=== PATIENT | female | born 1950 | race Caucasian/White ===

== ENCOUNTER 2019-11-14 16:31 | Emergency (ER) | payer MEDICARE, SELFPAY ==
--- NOTE | ~2019-11-14 | XR_ITS ---
EXAMINATION: XR chest 2V 11/14/2019 18:09 INDICATION: Left-sided chest pain. Hypertension. PROCEDURE: PA and lateral views of the chest COMPARISON: 12/01/2018 FINDINGS: The lungs are clear. The cardiomediastinal silhouette is within normal limits. There are no pleural effusions. There is no pneumothorax suspected. Calcified granuloma left lung base. IMPRESSION: 1: NO ACUTE CARDIOPULMONARY DISEASE. Reviewed, dictated and finalized at location A.
--- NOTE | 2019-11-14 16:32 | ECG_ITS ---
Measurements Intervals Delta Rate: 51 P: 65 TX: 200 QRS: 4 QRSD: 109 T: 31 QT: 465 QTc: 430 Interpretive Statements SINUS BRADYCARDIA BORDERLINE AV CONDUCTION DELAY LOW QRS VOLTAGE IN PRECORDIAL LEADS BORDERLINE T WAVE ABNORMALITY- ANTERIOR LEADS BASELINE ARTIFACT- I, II, AVR BORDERLINE ECG Electronically Signed On 11-14-2019 20:25:20 CDT by Raji Pham D.O.
[2019-11-14 17:08] VITALS: BP 184/103; PULSE 67; RESP 17; TEMP 37.2; O2SAT 98
[2019-11-14 17:21] LABS: Basophils Percent Auto 0.5 % (0.2-1.2); Eosinophils Absolute Auto 0.1 K/mm3 (0-0.3); Hemoglobin 12.4 g/dL (12.0-15.0); Immature Granulocyte Absolute 0.02 K/mm3 (0.00-0.031); Immature Granulocyte Percent A 0.3 % (0-0.5); Lymphocytes Absolute Auto 1.35 K/mm3 (0.9-3.2); Lymphocytes Percent Auto 22.7 % (18.3-44.2); Mean Corpuscular HGB Conc 32.6 g/dl (32-36); Mean Corpuscular Hemoglobin 30.5 pg (26-34); Mean Corpuscular Volume 93.4 fl (80-100); Mean Platelet Volume 10.5 fl (7.4-10.4); Monocytes Absolute Auto 0.6 K/mm3 (0.1-0.6); Monocytes Percent Auto 9.9 % (2.6-8.5); Neutrophils Absolute Auto 3.9 K/mm3 (1.3-6.7); Neutrophils Percent Auto 65.6 % (45.5-73.1); Platelet Count Result 226 k/mm3 (150-375); Red Blood Count 4.07 M/mm3 (4.2-5.4); Red Cell Distribution Width 14.5 % (11.5-14.5)
[2019-11-14 17:31] LABS: Prothrombin Time 12.4 Seconds (11.1-14.7)
[2019-11-14 17:32] LABS: Partial Thromboplastin Time 31.4 SECONDS (22.3-36.8)
[2019-11-14 17:33] LABS: Anion Gap 9.3 mmol/L (7-16); Blood Urea Nitrogen 16 mg/dL (7-17); Carbon Dioxide 29 mmol/L (22-30); Chloride 103 mmol/L (98-107); Estimated CRCL calculation 63 ml/min; Estimated Glomerular Filt Rate > 60; Glucose 95 mg/dL (65-105); Potassium 4.3 mmol/L (3.4-5.0); Sodium 137 mmol/L (137-145)
[2019-11-14 17:45] LABS: Troponin I < 0.012 ng/mL (0.000-0.034)
--- NOTE | 2019-11-14 19:07 | PC.NURSE ---
spoke with the pt on the phone, stated, my mother had a fall, i needed to take care of her. I pulled my iv out on the way home. pt stated that she was feeling better, was advised to call Dr Sue. in AM and review labs, and all tests completed prior to her leaving. pt encouraged to return to ED for evaluation and treatment if needed. pt agreeable to this.
== END 2019-11-14 19:07 | disposition left against medical advice (07) ==
LOC: ANHED 19:24
PROVIDERS: Emergency Medicine; PCP Family Medicine
DX: R07.9 Chest pain, unspecified (principal)
CPT/HCPCS: 36415; 71046; 80048; 84484; 85025; 85610; 85730; 93005; 99199

== ENCOUNTER 2020-07-16 14:20 | Outpatient (CLI) | payer MEDICARE, SELFPAY ==
[2020-07-16 15:02] LABS: Basophils Percent Auto 0.8 % (0.2-1.2); Eosinophils Absolute Auto 0.1 K/mm3 (0-0.3); Eosinophils Percent Auto 1.3 % (0-4.4); Hematocrit 36.4 % (37.0-47.0); Hemoglobin 11.7 g/dL (12.0-15.0); Immature Granulocyte Absolute 0.02 K/mm3 (0.00-0.031); Immature Granulocyte Percent A 0.4 % (0-0.5); Lymphocytes Absolute Auto 1.64 K/mm3 (0.9-3.2); Lymphocytes Percent Auto 31.4 % (18.3-44.2); Mean Corpuscular HGB Conc 32.1 g/dl (32-36); Mean Corpuscular Hemoglobin 29.6 pg (26-34); Mean Corpuscular Volume 92.2 fl (80-100); Mean Platelet Volume 10.2 fl (7.4-10.4); Monocytes Absolute Auto 0.7 K/mm3 (0.1-0.6); Monocytes Percent Auto 12.5 % (2.6-8.5); Neutrophils Absolute Auto 2.8 K/mm3 (1.3-6.7); Neutrophils Percent Auto 53.6 % (45.5-73.1); Platelet Count Result 364 k/mm3 (150-375); Red Blood Count 3.95 M/mm3 (4.2-5.4); Red Cell Distribution Width 14.5 % (11.5-14.5); White Blood Count 5.2 K/mm3 (4.5-10.0)
[2020-07-16 15:13] LABS: Alanine Aminotransferase 12 U/L (4-35); Albumin Level 4.1 g/dL (3.5-5.1); Alkaline Phosphatase 77 U/L (38-126); Anion Gap 5 mmol/L (8-16); Aspartate Amino Transferase 27 U/L (14-36); Bilirubin,Total 0.3 mg/dL (0.2-1.3); Blood Urea Nitrogen 10 mg/dL (7-17); Calcium 9.6 mg/dL (8.4-10.2); Carbon Dioxide 31 mmol/L (22-30); Chloride 104 mmol/L (98-107); Estimated Glomerular Filt Rate > 60; Glucose 95 mg/dL (65-105); Potassium 4.4 mmol/L (3.4-5.0); Sodium 140 mmol/L (137-145)
[2020-07-16 16:05] LABS: Erythrocyte Sedimentation Rate 27 mm/hr (0-20)
== END 2020-07-16 14:21 | disposition home or self-care (01) ==
LOC: ANHLAB 14:23
PROVIDERS: PCP Family Medicine; Visit Provider Family Medicine
DX: A49.8 Other bacterial infections of unspecified site (principal); I10 Essential (primary) hypertension
CPT/HCPCS: 36415; 80053; 85025; 85652

== ENCOUNTER 2023-03-20 10:57 | Outpatient (CLI) | payer MEDICARE, SELFPAY ==
[2023-03-29 10:02] LABS: ANA Cascade Screen Negative
== END 2023-03-20 10:58 | disposition home or self-care (01) ==
PROVIDERS: PCP Family Medicine; Visit Provider Physician Assistant
DX: M19.90 Unspecified osteoarthritis, unspecified site (principal)
CPT/HCPCS: 36415; 86038; 86225; 86235; 86364

== ENCOUNTER 2023-04-24 13:44 | Outpatient (CLI) | payer MEDICARE, SELFPAY ==
[2023-04-24 14:11] LABS: Hematocrit 38.4 % (37.0-47.0); Hemoglobin 12.3 g/dL (12.0-15.0); Mean Corpuscular Hemoglobin 30.2 pg (26-34); Mean Corpuscular Volume 94.3 fl (80-100); Mean Platelet Volume 9.2 fl (7.4-10.4); Platelet Count Result 298 k/mm3 (150-375); Red Blood Count 4.07 M/mm3 (4.2-5.4); Red Cell Distribution Width 14.1 % (11.5-14.5); White Blood Count 5.7 K/mm3 (4.5-10.0)
[2023-04-24 14:27] LABS: Alanine Aminotransferase 12 U/L (6-35); Alkaline Phosphatase 90 U/L (38-126); Anion Gap 6 mmol/L (8-16); Aspartate Amino Transferase 23 U/L (14-36); Bilirubin,Total 0.5 mg/dL (0.2-1.3); Blood Urea Nitrogen 15 mg/dL (7-17); CRP < 0.5 mg/dL (<1.0); Calcium 9.8 mg/dL (8.4-10.2); Carbon Dioxide 28 mmol/L (22-30); Chloride 102 mmol/L (98-107); Estimated Glomerular Filt Rate > 60; Glucose 105 mg/dL (65-110); Potassium 4.4 mmol/L (3.4-5.0); Sodium 136 mmol/L (137-145)
[2023-04-24 15:04] LABS: Iron 106 ug/dL (37-170)
[2023-04-24 15:13] LABS: Percent Iron Saturation 37 % (20-50)
[2023-04-24 15:33] LABS: Folic Acid > 20.0 ng/mL (2.76->20)
[2023-04-24 16:44] LABS: Vitamin B12 > 1000.0 pg/mL (239-931)
[2023-04-27 01:55] LABS: Immunoglobulin A 153 mg/dL (70-320); TTG IGA AB <1.0 U/mL (<15.0)
== END 2023-04-24 13:45 | disposition home or self-care (01) ==
LOC: ANHLAB 13:46
PROVIDERS: PCP Family Medicine; Visit Provider Nurse Practitioner
DX: R63.8 Other symptoms and signs concerning food and fluid intake (principal); I16.0 Hypertensive urgency; Z12.11 Encounter for screening for malignant neoplasm of colon; E73.9 Lactose intolerance, unspecified; D64.9 Anemia, unspecified
CPT/HCPCS: 36415; 80053; 82607; 82728; 82746; 82784; 83540; 83550; 84443; 85027; 86140; 86364

== ENCOUNTER 2023-06-12 15:57 | Outpatient (CLI) | payer MEDICARE, SELFPAY ==
[2023-06-19 18:42] LABS: Calprotectin, Stool 701 mcg/g; Pancreatic Elastase, Stool 260 mcg/g
== END 2023-06-12 15:58 | disposition home or self-care (01) ==
LOC: ANHLAB 15:58
PROVIDERS: PCP Family Medicine; Visit Provider Nurse Practitioner
DX: D64.9 Anemia, unspecified (principal); E73.9 Lactose intolerance, unspecified; Z12.11 Encounter for screening for malignant neoplasm of colon
CPT/HCPCS: 82653; 83993

== ENCOUNTER 2024-08-23 14:15 | Outpatient (CLI) | payer MEDICARE, SELFPAY ==
--- OUTSIDE RECORDS SUMMARY | 2024-08-23 14:20 | XMS_ITS | Encounter Summary ---
Author Organization [facility] [address] [place] [address] Care Team Providers Care Commercial Singer Name Role Phone Linette Yepez MD Primary Care Provider [phone] Reason for Visit * Reason Onset Date Comments MEDICAL MANAGEMENT 04/13/2020 [facility]/ [facility] Encounter Details Date Type Department Care Team ([facility] st Contact Info) Description 04/13/2020 Telephone [facility] Admitting [address] [place] [address] [place] MD [id number] [place] [address] [place] [address] MEDICAL MANAGEMENT ([facility]ENNIFER Nettles/ [facility]I [facility]ett[facility]) Social History Tobacco Use Types Packs/Day Years Used Date Smoking Tobacco: Never Smokeless Tobacco: Never Alcohol Use Standard Drinks/Week Comments Not Currently 0 (1 standard drink = 0.6 oz pur e alcohol) Comments No Sex and Gender Information Value Date Recorded Sex Assigned at Not on file Legal Sex Female 9:31 PM CDT Gender Identity Not on file Sexual Orientation Not on file COVID-19 Exposure Response Date Recorded In the last month, have you been in contact with someone who was confirmed or suspected to have Coronavirus / COVID-19? No / Unsure 04/13/2020 6:46 AM PHARMACY ASSOCIATE documented as of this encounter Plan of Treatment Not on file documented as of this encounter Visit Diagnoses Not on filedocumented in this encounter Care Teams Commercial Singer Relationship Specialty Start Date End Date Linette Yepez MD PCP - General Family Practice 04/01/20 documented as of this encounter
--- OUTSIDE RECORDS SUMMARY | 2024-08-23 14:20 | XMS_ITS | Referral Summary ---
Author Organization [facility] Address [address] [place] [address] Care Team Providers Care Training Technician Name Role Phone Linette Yepez MD Primary Care Provider Encounters Date Type Department Care Team Description 05/31/2024 Telephone [facility] Medical [facility] Cardiology [address] [place] [address] KAREN Ramirez [phone] Onesimo George MD from Last 3 Months Allergies Active Allergy Reactions Criticality Noted Date Comments Gluten Diarrhea Low 11/21/2013 Lactose Stomach upset,Other (See comments) Low 09/24/2014 GI upset, abdominal pain Medications multivitamin tablet tablet Take one by mouth one time per day 0 0 05/16/19 08 Active vitamin E 400 unit capsule Take one by mouth one time per day 0 0 05/16/19 08 Active albuterol HFA (PROVENTIL HFA,VENTOLIN HFA,PROAIR HFA) 90 mcg/actuation inhaler Inhale 1 puff every 6 (six) hours as needed for wheezing Active syringe with needle (Syringe 3cc/25Gx1 ) 3 mL 25 gauge x 1 syringe 1 Syringe every 30 (thirty) days 3 each 12/24/19 22 Active Dodex 1,000 mcg/mL injection ADMINISTER 1 ML(1000 MCG) IN THE MUSCLE EVERY 30 DAYS DIRECTED 1 mL 3 04/28/19 23 Active Eclipse Syringe 3 mL 25 gauge x 1 syringe USE 1 EACH EVERY 30 DAYS 3 each 2 05/02/19 23 Active busPIRone (BUSPAR) 7.5 mg tablet TAKE 1 TABLET(7.5 MG) BY MOUTH THREE TIMES DAILY 90 tablet 2 07/28/19 23 Active Additional Information Patient taking differently: 10 mg oral 2 times daily, Indications: Generalized Anxiety Disorder, Reported on 02/25/2023 citalopram (CeleXA) 40 mg tablet Take 1 tablet (40 mg total) by mouth daily 90 tablet 08/11/19 23 Active ondansetron ODT (ZOFRAN-ODT) 4 mg disintegrating tablet Take 1 tablet (4 mg total) by mouth every 8 (eight) hours as needed for nausea or vomiting 20 tablet 02/25/20 23 Active hydrOXYzine (ATARAX) 25 mg tablet Take 1 tablet (25 mg total) by mouth every 8 (eight) hours as needed (nausea) 01/10/[address] (PROTONIX) 40 mg EC tabletIndications: Stress Ulcer Prophylaxis Take 1 tablet (40 mg total) by mouth daily Active turmeric root extract 500 mg capsuleIndications :suppliment Take 500 mg by mouth daily. Indications: suppliment Active folic acid (FOLVITE) 400 mcg tabletIndications: Folate Deficiency Take 1 tablet (400 mcg total) by mouth daily Active CHOLECALCIFEROL, VITAMIN D3, ORALIndications:jurado ppliment Take 5,000 Units by mouth daily. Indications: suppliment Active ascorbic acid (ascorbic acid with bonita hips) 500 mg tablet,chewableInd ications:supplimen t Take 1 tablet/chew tab (500 mg total) by mouth daily Active loperamide (IMODIUM A-D) 2 mg tabletIndications: diarrhea Take 1 tablet (2 mg total) by mouth 3 (three) times a day as needed for diarrhea Active FeroSuL 325 mg (65 mg iron) tablet Take 1 tablet (325 mg total) by mouth daily 05/03/19 24 Active Belbuca 600 mcg film buccal film TAKE 1 FILM BY MOUTH TWICE DAILY X 30 DAYS 09/08/19 24 Active propafenone SR (RYTHMOL SR) 225 mg 12 hr capsuleIndications :Prevention of Recurrent Atrial Fibrillation Take 1 capsule (225 mg total) by mouth 2 (two) times a day 60 capsule 11 09/19/19 24 025 Active carvediloL (COREG) 6.25 mg tablet TAKE 1 TABLET(6.25 MG) BY MOUTH TWICE DAILY WITH MEALS 60 tablet 5 02/26/20 24 Active rivaroxaban (XARELTO) 20 mg tablet Take 1 tablet (20 mg total) by mouth daily 90 tablet 3 05/09/19 25 Active NIFEdipine (NIFEdipine CC) 30 mg 24 hr tablet TAKE 1 TABLET(30 MG) BY MOUTH EVERY NIGHT 30 tablet 3 05/23/19 25 Active lisinopriL (PRINIVIL,ZESTRIL) 40 mg tablet TAKE 1 TABLET(40 MG) BY MOUTH DAILY 90 tablet 3 05/27/19 25 Active lisinopriL (PRINIVIL,ZESTRIL) 40 mg tablet Take 1 tablet (40 mg total) by mouth daily 90 tablet 3 05/27/19 25 Active Active Problems Problem Noted Date Diagnosed Date Intractable pain 02/25/2023 Dizziness 11/07/2022 Mixed anxiety and depressive disorder 06/21/2022 Assessment & Plan (06/21/2022 7:25 PM MEDICAL RECORDS ADMINISTRATOR): Worsening after of her mother in 04/2022. Feels more anxiety than depression. Admits panic attacks. Reluctant to start daily medication, don't want to feel trapped into taking medicine. Will Rx BuSpar as directed. Encouraged relaxation techniques such as deep breathing and guided imagery. Keep follow as scheduled, sooner if needed. Diarrhea 06/20/2022 Assessment & Plan (06/21/2022 7:16 PM MEDICAL RECORDS ADMINISTRATOR): Ongoing for approximately 1 week after finishing a course of cefdinir for UTI. No more urinary symptoms or abdominal pain. No acute findings on exam. Will order CDiff test. Advised on Bowel rest: push fluids, bland high fiber diet. Continue immodium if needed. Vulvovaginitis 06/20/2022 Assessment & Plan (06/21/2022 7:17 PM MEDICAL RECORDS ADMINISTRATOR): S/p cefdinir course for UTI. Denies discharge or genital lesions. exam deferred per pt request. Rxd Diflucan as directed. Use mild non-fragrant soaps/lotions. Recurrent UTI 06/08/2022 Assessment & Plan (06/08/2022 2:35 PM MEDICAL RECORDS ADMINISTRATOR): Currently on Abx for treatment. Patient to f/u if symptoms persist despite treatment. Would obtain urine culture. Refer to Urology for eval/ Rash and nonspecific skin eruption 12/23/2021 Assessment & Plan (12/23/2021 4:30 PM CDT): Ongoing for months. Hx of Gastric sleeve and has not been consistent with dietary supplements. Recently taking Oral B12 - CBC ordered and shows mild macrocytic anemia - Will order for IM B12 Injections (1000 mcg monthly) - Recheck CBC 3 months Frequent urination 12/23/2021 Assessment & Plan (12/23/2021 4:30 PM CDT): Ongoing also with incontinence. Urinalysis performed and WNL. Will refer Pelvic PT eval and treatment. Essential hypertension 12/23/2021 Assessment & Plan (06/21/2022 7:12 PM MEDICAL RECORDS ADMINISTRATOR): BP stable in office today on current therapy. Continue current regimen and low salt diet. Stay hydrated. Assessment & Plan (06/08/2022 2:36 PM MEDICAL RECORDS ADMINISTRATOR): Chronic and mildly elevated. Goal < 130/80. Patient also with recent atypical chest pain and elevated BNP >2,000. Continue all current medication and keep scheduled evaluation with Cardiology 06/2022. Should return to ER for evaluation if chest pain recurs prior to cards eval Assessment & Plan (12/23/2021 12:10 PM CDT): Chronic and stable. Goal <130/80. Continue current medication. Atrial fibrillation 12/23/2021 Assessment & Plan (06/08/2022 2:35 PM MEDICAL RECORDS ADMINISTRATOR): Chronic and stable. 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 with bath solution maker Assessment & Plan (12/23/2021 12:10 PM CDT): Chronic and stable. Continue current medication. Continue to f/u with Cards as instructed Chronic pain syndrome 12/23/2021 Assessment & Plan (12/23/2021 12:09 PM CDT): Chronic and stable. Continue current medication and following with pain management clinic H/O gastric sleeve 12/23/2021 Assessment & Plan (12/23/2021 12:09 PM CDT): Chronic and stable. Continue to f/u with bariatric team as instructed Anemia, macrocytic, nutritional 12/23/2021 Assessment & Plan (12/23/2021 4:31 PM CDT): Nutritional secondary to gastric sleeve procedure - Will order for IM B12 Injections (1000 mcg monthly) - Recheck CBC 3 months Social History Tobacco Use Types Packs/Day Years Used Date Smoking Tobacco: Never Smokeless Tobacco: Never Tobacco Cessation:Counseling Given: Not Answered Alcohol Use Standard Drinks/Week Comments No 0 (1 standard drink = 0.6 oz pur e alcohol) OASIS D0700: Social Isolation Answer Da te Recorded Frequency of experiencing loneliness or isolatio n Never 04/11/2023 OASIS A1250: Transportation Answer Date Recorded Lack of Transportation (Medical) No 04/11/2023 Lack of Transportation (Non-Medical) No 04/11/2023 Patient Unable or Declines to Respond No 04/11/2023 OASIS B1300: Health Literacy Answer Devan e Recorded Frequency of needing help to read materials from doctor or pharmacy Never 04/11/2023 [facility] Utilities Answer Date Recorded In the past 12 months has th e [employer], gas, oil, or water [employer] threatened to shut off services in your home? No 02/27/2023 Social Connection and Isolat ion Panel [NHANES] Answer Date Recorded In a typical week, how many times do you talk on the phone with family, friends, or neighbors? More than three times a week 02/27/2023 How often do you get togethe r with friends or relatives? More than three times a week 02/27/2023 How often do you attend chur ch or buddhist services? Never 02/27/2023 Do you belong to any clubs o r organizations such as catholic groups, unions, fraternal or athletic groups, or school groups? No 02/27/2023 How often do you attend meet ings of the clubs or organizations you belong to? Never 02/27/2023 Are you , , di vorced, , never , or living with a partner? 02/27/2023 AUDIT-C Answer Date Recorded Q1: How often do you have a drink containing alc ohol? 2-3 times a week 12/17/2021 Q2: How many drinks containi ng alcohol do you have on a typical day when you are drinking? 1 or 2 12/17/2021 Q3: How often do you have si x or more drinks on one occasion? Never 12/17/2021 Overall Financial Resource Strain (CARDIA) Answe r Date Recorded How hard is it for you to pa y for the very basics like food, housing, medical care, and heating? Not very hard 02/27/2023 PHQ-2 Answer Date Recorded PHQ-2 Total Score (If total score is 3 or more points, staff should administer the PHQ-9) 0 02/27/2023 Hunger Vital Sign Answer Date Recorded Within the past 12 months, y ou worried that your food would run out before you got the money to buy more. Never true 02/28/20 23 Within the past 12 months, t he food you bought just didn't last and you didn't have money to get more. Never true 02/27/2023 PRAPARE - Transportation Answer Date Re corded In the past 12 months, has l ack of transportation kept you from medical appointments or from getting medications? No 02/15 In the past 12 months, has l ack of transportation kept you from meetings, work, or from getting things needed for daily living? No 02/27/2023 Housing Stability Vital Sign Answer Devan e Recorded In the last 12 months, was t here a time when you were not able to pay the mortgage or rent on time? No 02/27/2023 In the last 12 months, how many places have you lived? 1 02/27/2023 In the last 12 months, was t here a time when you did not have a steady place to sleep or slept in a half-way (including now)? No 02/27/2023 Personal Safety Answer Date Recorded Have you ever been in or are you currently in a harmful physical or emotional relationship or is someone making you feel afraid or unsafe? Denies 02/25/2023 Comments No Sex and Gender Information Value Date Recorded Sex Assigned at Not on file Legal Sex Female 6:30 PM MEDICAL RECORDS ADMINISTRATOR Gender Identity Not on file Sexual Orientation Not on file Last Filed Vital Signs Vital Sign Reading Time Taken Comments Blood Pressure 118/70 09/19/2023 10:02 AM CDT Pulse 56 09/19/2023 10:02 AM CDT Temperature 36.2 C (97.2 F) 04/11/2023 12:53 PM MEDICAL RECORDS ADMINISTRATOR Respiratory Rate 14 09/19/2023 10:02 AM CDT Oxygen Saturation 97% 05/22/2023 1:37 PM MEDICAL RECORDS ADMINISTRATOR Inhaled Oxygen Concentration - - Weight 69.4 kg (153 lb) 09/19/2023 10:02 AM CDT Height 160 cm (5' 3 ) 09/19/2023 10:02 AM CDT Body Mass Index 27.1 09/19/2023 10:02 AM CDT Plan of Treatment Not on file [place] [address] MEDICARE ADVANTAGE [facility] MEDICARE ADVANTAGE Advance Directives For more information, please contact: [phone] * Full Code (Latest Code Status on File) Date Activated Date Inactivated Comments 02/25/2023 1:22 PM 02/28/2023 7:54 PM * Full Code Date Activated Date Inactivated Comments 11/07/2022 2:00 AM 11/08/2022 7:29 PM Care Teams Training Technician Relationship Specialty Start Date End Date Linette Yepez MD [address] [facility] [address] [place] [address] PCP - General Family Medicine 11/06/22
--- OUTSIDE RECORDS SUMMARY | 2024-08-23 14:20 | XMS_ITS | Clinical Summary ---
Author Organization [facility] [employer] Address [address] [place] [address] Care Team Providers Care Snaker Name Role Phone Aury Joseph RN Unavailable Dar Stinson MD Unavailable [phone] Linette Yepez MD Primary Care Provider + Source Comments [facility],non-owned Affiliates and Associated Physician Practices is amultiple site organization consisting of ambulatory clinics and hospital sitesin [place], [place] and [place]. This disclosure is being madepursuant to the Care Everywhere program and may not contain all information available regarding this patient. Last updated 18.[facility] [employer] Allergies Active Allergy Reactions Criticality Noted Date Comments Gluten Meal 11/21/2013 Lactose GI Discomfort 09/24/2014 Medications * Be aware that medications may not be up to date on this document. Alwaysverify current medications with the patient. citalopram (CELEXA) 40 MG tablet TAKE 1 TABLET BY MOUTH DAILY 90 Tab 1 02/29/20 16 Active losartan 100 MG TABS 100 mg, hydroCHLOROthiazide 25 MG TABS 25 mg TAKE 1 TABLET BY MOUTH ONCE DAILY 2 06/14/19 19 Active Multiple Vitamins-Minerals (MULTIVITAMIN ADULT PO) Take one by mouth one time per day 05/16/19 08 Active vitamin E (TOCOPHERYL) 400 UNIT tablet Take one by mouth one time per day 05/16/19 08 Active hydrOXYzine hcl (ATARAX) 25 MG tablet TAKE 1 TABLET BY ORAL ROUTE 3 TIMES EVERY DAY NEEDED 0 01/17/20 19 Active amiodarone (CORDARONE) 200 MG tablet 200 mg once daily 05/24/19 20 Active albuterol HFA (PROVENTIL;VENTOLIN;PRO AIR) 108 (90 Base) MCG/ACT inhaler Inhale 1 puff by mouth Active pregabalin (LYRICA) 100 MG capsule 100 mg 2 times daily 05/14/19 20 Active metoprolol tartrate (LOPRESSOR) 25 MG tablet TAKE 0.5 TABLETS (12.5 MG TOTAL) BY MOUTH 2 (TWO) TIMES A DAY 05/18/19 20 Active tiZANidine (ZANAFLEX) 4 MG tablet TK 1/2 TO 1 T PO Q NIGHT PRN 05/01/19 20 Active oxyCODONE-acetaminophen (PERCOCET) 10-325 MG tablet TK 1 T PO TID PRN 05/17/19 20 Active phenazopyridine (PYRIDIUM) 200 MG tablet Take 1 (one) tablet by mouth 3 times daily as needed 18 tablet 06/17/19 22 Active busPIRone HCl (BUSPAR PO) Active Active Problems Problem Noted Date Diagnosed Date NOMI (obstructive sleep apnea) 07/24/2015 Hip osteoarthritis 04/11/2012 History of atrial fibrillation 04/11/2012 Overview (04/11/2012): 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, 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 URIAS (degenerative joint disease) 04/11/2012 Overview (04/11/2012): Spine, both knees, both hips Hypovitaminosis D 04/11/2012 Ulcerative colitis 04/11/2012 Resolved Problems Problem Noted Date Diagnosed Date Resolved Date Preoperative examination 01/27/2009 Immunizations Immunization Administration Dates Next Due INFLUENZA VACCINE 01/15/2015,02/21/2009 TDAP (7yrs+) 03/19/2014 Family History Medical History Relation Name Comments Cancer - Other Brother throat cancer , metastatic Cancer - Colon Father Hypertension Father Other inherited/genetic condition Father Paget's disease Cancer - Breast Maternal Aunt 2 aunts, dania th postmenopausal Lung Cancer Maternal Grandfather Lung Cancer Maternal Uncle Hypertension Paternal Aunt Cancer - Other Sister cervical canc er Relation Name Status Comments Brother Alive Father Maternal Aunt Alive Maternal Grandfather Maternal Grandmother Maternal Uncle Mother Alive Paternal Aunt Paternal Grandfather Paternal Grandmother Paternal Uncle Sister Alive Social History Tobacco Use Types Packs/Day Years Used Date Smoking Tobacco: Never Smokeless Tobacco: Never Tobacco Cessation:Counseling Given: Yes Alcohol Use Standard Drinks/Week Comments Yes 0 (1 standard drink = 0.6 oz pur e alcohol) socially Comments No Sex and Gender Information Value Date Recorded Sex Assigned at Not on file Legal Sex Female 7:22 AM WOOL AND PELT GRADER Gender Identity Not on file Sexual Orientation Not on file 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 [employer] Not on file Not on file Not on file Last Filed Vital Signs Vital Sign Reading Time Taken Comments Blood Pressure 106/74 06/16/2021 10:41 AM WOOL AND PELT GRADER Pulse 60 06/16/2021 10:41 AM WOOL AND PELT GRADER Temperature 36.2 C (97.2 F) 06/16/2021 10:41 AM WOOL AND PELT GRADER Respiratory Rate 20 06/16/2021 10:41 AM WOOL AND PELT GRADER Oxygen Saturation 97% 06/16/2021 10:41 AM WOOL AND PELT GRADER Inhaled Oxygen Concentration - - Weight 72.6 kg (160 lb) 06/16/2021 10:41 AM WOOL AND PELT GRADER Height 160 cm (5' 3 ) 06/16/2021 10:41 AM WOOL AND PELT GRADER Body Mass Index 28.34 06/16/2021 10:41 AM WOOL AND PELT GRADER Plan of Treatment Health Maintenance Due Date Last Done Comments BONE DENSITY TESTING 1950 COLOGUARD (AGES 45-75) - COLON CA SCREENING [address] COLON[address]APHY - COLON CA SCREENING 1950 FIT - COLON CA SCREENING 1950 FLEX SIG - COLON CA SCREENING 1950 PNEUMOCOCCAL VACCINE 50+ (1 of 1 - PCV) 12/26/1999 ZOSTER VACCINE (1 of 2) 12/26/1999 Respiratory Syncytial Virus (RSV) Vaccine Pt: or over 60 yrs (1 - Risk 60-74 years 1-dose series) 2009 COLONOSCOPY - COLON CA SCREENING 04/17/2015 04/17/2005 (Previously completed) Colorectal Cancer Screening 04/17/2015 MAMMOGRAM 09/09/2016 09/09/2014, 08/05/2008 COVID-19 VACCINE ( season) 2023 06/12/2020, 05/22/2020 DTAP/TDAP/TD VACCINES (2 - Td or Tdap) 03/19/2024 03/19/2014 DEPRESSION SCREENING 04/17/2024 MEDICARE AWV CALENDAR YEAR 2024 INFLUENZA VACCINE (Season Ended) 2024 01/15/2015, 02/21/2009 LIPID TESTING 11/08/2027 11/07/2022, 04/17, 11/20/2019, Additional history exists HEPATITIS C SCREENING Completed 08/09/2013 HEPATITIS B VACCINE Aged Out No longe r eligible based on patient's age to complete this topic HIB VACCINE Aged Out No longer eligi ble based on patient's age to complete this topic HPV VACCINE Aged Out No longer eligi ble based on patient's age to complete this topic MENINGOCOCCAL (Group B) VACCINE SHARED DECISION-MAKING Aged Out No longer eligible based on patient's age to complete this topic MENINGOCOCCAL GROUPS A/C/Y/W VACCINE Aged Out No longer eligible based on patient's age to complete this topic Goals Goal Patient Goal Type Associated Problems Recent Progress Patient-Stated? Author Blood Pressure < 140/90 Blood Pressure 106/74(2021 10:41 AM WOOL AND PELT GRADER) Nae Montanez MA Medical Devices Implanted Type Area Special Services Supervisor Device Identifier Shelf Expiration Date Model / Serial / Lot Shell Coat 3hole 54mm Implanted:Qty: 1 on 11/21/2013 by Francis Cortes MD at [facility] Right: Hip [employer] 08/16/2023 [id number] / / [id number] Linr Acetab Refl Xlpe 0deg 36mm X 54mm Implanted:Qty: 1 on 11/21/2013 by Francis Cortes MD at [facility] Right: Hip [employer] 10/15/2023 [id number] / / [id number] Spherical Head Screw 6.5mm Cancellous Implanted:Qty: 1 on 11/21/2013 by Francis Cortes MD at [facility] Right: Hip [employer] 05/17/2023 [id number] / / [id number] Standard Offset Fixed Neck Stikitite Coated Stem Feoral Coponent Implanted:Qty: 1 on 11/21/2013 by Francis Cortes MD at [facility] Right: Hip [employer] 06/14/2023 [id number] / / [id number] 03/30 Taper Femoral Head Implanted:Qty: 1 on 11/21/2013 by Francis Cortes MD at [facility] Right: Hip [employer] 12/14/2022 [id number] / / [id number] Bill Only H1 Uncem Metal Or Ceramic Implanted:Qty: 1 on 11/21/2013 by Francis Cortes MD at [facility] [employer] H1 BILL ONLY / / Procedures Procedure Name Priority Date/Time Associated Diagnosis Comments LIPID PROFILE Routine 07/14/2015 10:12 AM CDT Screening cholesterol level MAMMO BILAT SCREENING Routine 09/09/2014 5:05 PM CDT Breast cancer screening HEPATITIS C ANTIBODY Routine 08/09/2013 8:53 AM CDT Well adult exam from Last 3 Months or Most Recently Relevant to Health Maintenance Results * (ABNORMAL) LIPID PROFILE (07/14/2015 10:12 AM CDT) Cholesterol 216(H) <200 mg/dL [facility] ACCOUNT BILL Triglycerides 72 <150 mg/dL [facility] ACCOUNT BILL HDL Cholesterol 83 >40 mg/dL [facility] ACCOUNT BILL VLDL Calculated 14 <=30 mg/dL [facility] ACCOUNT BILL LDL Calculated 119 <130 mg/dL [facility] ACCOUNT BILL Blood specimen (specimen) BLOOD SPECIMEN / Unknown 07/14/2015 10:12 AM CDT 07/14/2015 1:06 PM CDT Narrative Resulting Agency Comment [facility] [address] [facility] [id number] Feliciano Oliver MD LAB - CHEMISTRY ORDERABLES Fin al Result [facility] ACCOUNT BILL [address] [place] [address] * MAMMO SCREENING DIGITAL IMAGE BILAT (09/09/2014 5:05 PM CDT) Anatomical Region Laterality Modality Breast Bilateral Mammography 09/10/2014 5:08 PM CDT Impressions 09/10/2014 5:09 PM CDT No mammographic evidence of malignancy in either breast. ASSESSMENT: BIRADS Category 1: Negative. RECOMMENDATION: Bilateral screening mammogram in one year. Thank you for allowing us to participate in the care of your patient. [facility] utilizes [employer] as a reminder system to notify patients of their next recommended mammogram. Narrative 09/10/2014 5:09 PM CDT EXAMINATION: Digital screening mammogram on 09/09/2014. Computer assisted detection was utilized. PRIOR: Mammogram from [facility] in 09/28/2006. FINDINGS: Breast parenchymal density: The breasts are almost entirely fatty. Risk assessment calculation: Not performed. No suspicious masses, areas of architectural distortion or microcalcifications are evident. There has been no significant interval change since the prior examination. Feliciano Oliver MD MAMMO ORDERABLES Final Result * HEPATITIS C ANTIBODY (08/09/2013 8:53 AM CDT) Hepatitis C Antibody 0.1 0.0 - 0.9 s/co ratio [facility] ACCOUNT BILL Comment: Negative: < 0.8 Indeterminate 0.8 - 0.9 Positive: > 0.9 . In order to reduce the incidence of a false positive result, the CDC recommends that all s/co ratios between 1.0 and 10.9 be confirmed by a more specific supplemental or PCR testing. [facility] offers HCV Ab w/Reflex to Verification test #[id number]. Blood specimen (specimen) BLOOD SPECIMEN / Unknown 08/09/2013 8:53 AM CDT 08/09/2013 12:57 PM CDT Narrative Resulting Agency Comment [facility] [address] [facility] [id number] Feliciano Oliver MD LAB - CHEMISTRY ORDERABLES Fin al Result [facility] ACCOUNT BILL [address] [place] [address] from Last 3 Months or Most Recently Relevant to Health Maintenance Insurance MANAGED MEDICARE ADV MANAGED MEDICARE ADV Advance Directives * Full Code (Latest Code Status on File) Date Activated Date Inactivated Comments 11/21/2013 12:38 PM 11/24/2013 6:31 PM * Full Code Date Activated Date Inactivated Comments 02/18/2009 10:26 AM 02/22/2009 1:32 AM Care Teams Snaker Relationship Specialty Start Date End Date Linette Yepez MD [address] [facility] [address] [place] [address] PCP - General Family Medicine 01/09/20 Aury Joseph, RN Hedis Specialist 11/22/13 [place] [address] [address] Orthopedic Surgery 12/27/13
--- OUTSIDE RECORDS SUMMARY | 2024-08-23 14:20 | XMS_ITS | Encounter Summary ---
Author Organization [facility] Address [address] [place] [address] Phone Care Team Providers Care Casting Machine Operator Name Role Phone Linette Yepez MD Primary Care Provider [phone] Encounter Details Date Type Department Care Team (Late st Contact Info) Description 07/13/2024 Results [facility] [place] [address] [place] [address] Norma Clark, MANAGER PROGRAMMING, CUFF STITCHER [address] [place] [address] POCT UA AUTOMATED W/O MICRO, CULTURE, URINE Social History Tobacco Use Types Packs/Day Years Used Date Smoking Tobacco: Never Smokeless Tobacco: Never Alcohol Use Standard Drinks/Week Comments Yes 0 (1 standard drink = 0.6 oz pur e alcohol) Occasionally Sexually Active Control Partners Comments Not Currently Comments No Sex and Gender Information Value Date Recorded Sex Assigned at Not on file Legal Sex Female 7:37 PM CDT Gender Identity Not on file Sexual Orientation Not on file documented as of this encounter Progress Notes * Jackie Arguello RN - 07/13/2024 11:58 AM CDT Pt has been informed and no questions at this time documented in this encounter Plan of Treatment Not on file documented as of this encounter Visit Diagnoses Not on filedocumented in this encounter Care Teams Casting Machine Operator Relationship Specialty Start Date End Date Linette Yepez MD [address] [facility] [address] [facility] [address] [place] [id number] PCP - General Family Medicine 12/08/23 documented as of this encounter
--- OUTSIDE RECORDS SUMMARY | 2024-08-23 14:20 | XMS_ITS | Clinical Summary ---
Author Organization [facility] Address [address] [place] [address] Phone Care Team Providers Care Cake Cutter Machine Name Role Phone Linette Yepez MD Primary Care Provider [phone]- [phone] Allergies Active Allergy Reactions Criticality Noted Date Comments Gluten Meal Diarrhea Low 11/21/2013 Lactose Other (see Comments) Low 09/24/2014 GI upset, abdominal pain Medications albuterol 108 (90 Base) MCG/ACT Aerosol Solution take 1 Puff by inhalation every 6 hours as needed for Wheezing. Active amiodarone (CORDARONE) 200 MG Tablet Take 200 mg by mouth daily. 3 Active Eliquis 5 MG Tablet Take 5 mg by mouth 2 times daily. 3 Active busPIRone HCl 7.5 MG Tablet Take 7.5 mg by mouth 3 times daily as needed. 3 Active carvedilol (COREG) 3.125 MG Tablet Take 3.125 mg by mouth 2 times daily. 3 Active citalopram (CeleXA) 40 MG Tablet Take 40 mg by mouth daily. 3 Active cyanocobalamin (VITAMIN B-12) 1000 MCG/ML Solution 1,000 mcg by Intramuscular route every 30 days. 3 Active lisinopril (PRINIVIL, ZESTRIL) 40 MG Tablet Take 40 mg by mouth daily. 3 Active oxyCODONE-Acet aminophen (PERCOCET) 10-325 MG Tablet Take 1 Tablet by mouth 4 times daily as needed. 3 Active pregabalin (LYRICA) 200 MG Capsule Take 200 mg by mouth nightly. 3 Active tiZANidine (ZANAFLEX) 4 MG Tablet Take 4 mg by mouth nightly as needed. 3 Active propafenone (RYTHMOL) 225 MG Tablet Take 225 mg by mouth 2 times daily. rx [id number] Active NIFEdipine CR (PROCARDIA-XL) 30 MG TABLET SR 24 HR Take 30 mg by mouth daily. rx [id number] Active Buprenorphine HCl (Belbuca) 600 MCG FILM Take 1 Film by mouth 2 times daily. rx [id number] Active hydrOXYzine (ATARAX) 25 MG Tablet Take 25 mg by mouth 3 times daily as needed for Itching or Nausea (vomiting). rx [id number] Active famotidine (PEPCID) 20 MG Tablet Take 20 mg by mouth daily. rx [id number] Active traMADol (ULTRAM) 50 MG Tablet take 1 tablet oral three times per day 30 days Active Xarelto 20 MG Tablet Oral for 90 Days 5 Active carvedilol (COREG) 6.25 MG Tablet TAKE 1 TABLET(6.25 MG) BY MOUTH TWICE DAILY WITH MEALS 4 Active pregabalin (Lyrica) 25 MG Capsule 1 Capsule. 4 Active pregabalin (LYRICA) 50 MG Capsule Take 50 mg by mouth 3 times daily. 5 Active Amoxicillin 500 MG Tablet Take 1 Tablet by mouth 3 times daily. 5 Active chlorhexidine (PERIDEX) 0.12 % Solution SWISH AND SPIT 15 ML BY MOUTH THREE TIMES DAILY 5 Active HYDROcodone-ac etaminophen (NORCO) 5-325 MG Tablet Take 1 Tablet by mouth every 6 hours as needed. 5 Active Active Problems No known active problems Encounters Date Type Department Care Team Description 08/09/2024 Results Follow-Up [facility] [place] [address] [place] [address] Norma Clark, PIG FARM MANAGER, DIETICIAN POCT UA AUTOMATED W/O MICRO, CULTURE, URINE 08/07/2024 1:20 PM CDT Urgent Care Visit [facility] [address] [place] [id number] Amrita Vee APRN, LORETTA Diarrhea, unspecified type (Primary Dx); Dysuria Discharge Disposition: Discharged to home or Selfcare 08/07/2024 Travel 07/13/2024 Results Follow-Up [place] [id number] Norma Clark APRN, LORETTA POCT UA AUTOMATED W/O MICRO, CULTURE, URINE 07/11/2024 1:30 PM CDT Urgent Care Visit [facility] [address] [facility] [address] Connie Sharma APRN, LORETTA Acute cystitis without hematuria (Primary Dx); Dysuria Discharge Disposition: Discharged to home or Selfcare 07/11/2024 Travel from Last 3 Months Immunizations Immunization Administration Dates Next Due Influenza Vaccine,unspecified Formulation 2014,02/21/2009 TDAP Vaccine 03/19/2014 Social History Tobacco Use Types Packs/Day Years Used Date Smoking Tobacco: Never Smokeless Tobacco: Never Tobacco Cessation:Counseling Given: Not Answered Alcohol Use Standard Drinks/Week Comments Yes 0 [...] Sign Reading Time Taken Comments Blood Pressure 104/60 08/07/2024 1:28 PM CDT Pulse 69 08/07/2024 1:28 PM CDT Temperature 36.7 C (98 F) 08/07/2024 1:28 PM CDT Respiratory Rate 12 08/07/2024 1:28 PM CDT Oxygen Saturation 96% 08/07/2024 1:28 PM CDT Inhaled Oxygen Concentration - - Weight 68.7 kg (151 lb 6.4 oz) 12/12/2023 10:52 AM CDT Height 160 cm (5' 3 ) 12/12/2023 10:52 AM CDT Body Mass Index 26.82 12/12/2023 10:52 AM CDT Plan of Treatment Health Maintenance Due Date Last Done Comments DEXA Bone Density 1950 Colonoscopy 1994 Colorectal Cancer Screening 1994 Cologuard 12/26/1999 Immunochemical Fecal Occult Blood 12/26/1999 Pneumococcal Immunization (5 0+ years) (1 of 1 - PCV) 12/26/1999 Zoster Immunization (1 of 2) 12/26/1999 Mammogram 09/10/2015 09/09/2014 SARS-COV-2 Immunization ( - season) 2023 06/12/2020, 05/22/2020 Td Immunization Every 10 Yea rs (Adults With 1 Tdap) 03/19/2024 03/19/2014 Influenza Immunization (Seas on Ended) 2024 01/15/2015, 02/21/2009 Respiratory Syncytial Virus (RSV) Immunization (Adult) (1 - 1-dose 75+ series) 2024 Hepatitis C Virus (HCV) Screening Completed 08/09/2013 DTaP/Tdap/Td Immunization Discontinued 03/19/2014 Hepatitis B Immunization Aged Out No longer eligible based on patient's age to complete this topic Human Papillomavirus (HPV) Immunization Aged Out No longer eligible based on patient's age to complete this topic Meningococcal Immunization (ACWY) Aged Out No longer eligible based on patient's age to complete this topic Rotavirus Immunization Aged Out No lo nger eligible based on patient's age to complete this topic Procedures Procedure Name Priority Date/Time Associated Diagnosis Comments CULTURE, URINE Routine 08/07/2024 1:53 PM CDT Dysuria POCT UA AUTOMATED W/O MICRO Routine 08/07/2024 1:31 PM CDT Dysuria CULTURE, URINE Routine 07/11/2024 1:58 PM CDT Dysuria POCT UA AUTOMATED W/O MICRO Routine 07/11/2024 1:43 PM CDT Dysuria from Last 3 Months Results * CULTURE, URINE (08/07/2024 1:53 PM CDT) Only the most recent of2 resultswithin the time period is included. CULTURE RESULTS Mixed Growth of One or More Distal Urethral Contaminants 08/08/2024 11:53 PM CDT [facility] Culture URINE SPECIMEN / Unknown Non-Phlebotomy Collection / Unknown 08/07/2024 1:53 PM CDT 08/07/2024 1:53 PM CDT Amrita Vee APRN, CNP MICROBIOLOGY - GENERAL ORDERABLES Final Result [facility] [address] [place] [address], [place] * POCT UA AUTOMATED W/O MICRO (08/07/2024 1:31 PM CDT) Only the most recent of2 resultswithin the time period is included. POC UA SPECIFIC GRAVITY 1.015 URINE PH 6.0 5.0 - 9.0 POC URINE LEUKOCYTES Negative Negative Gordy/uL POC URINE NITRITE Negative Negative POC URINE PROTEIN Negative Negative mg/dL POC URINE GLUCOSE Negative Negative, Norm mg/dL POC URINE KETONE Negative Negative mg/dL POC URINE UROBILINOGEN Norm Norm, 0.2 E.U./dL (mg/dL), 1 E.U./dL (mg/dL) POC URINE BILIRUBIN Negative Negative mg/dL POC URINE BLOOD INSTRUMENT Negative Negative Vignesh/uL POC URINE COLOR Yellow POC URINE CLARITY Clear Urine 08/07/2024 1:31 PM CDT Amrita Vee APRN, CNP POINT OF CARE T ESTING (MANUAL) Final Result from Last 3 Months [facility] Advance Directives * Full Code (Latest Code Status on File) Date Activated Date Inactivated Comments 12/27/2023 9:36 AM Care Teams Cake Cutter Machine Relationship Specialty Start Date End Date Linette Yepez MD [address] [facility] [address] [place] [id number] PCP - General Family Medicine 12/08/23
--- OUTSIDE RECORDS SUMMARY | 2024-08-23 14:20 | XMS_ITS | Encounter Summary ---
Author Organization [facility] Address [address] [place] [address] Phone Care Team Providers Care Information Services Consultant Name Role Phone Linette Yepez MD Primary Care Provider [phone]- [phone] Encounter Details Date Type Department Care Team (Late st Contact Info) Description 08/09/2024 Results [facility] - [facility] [place] [address] [place] [address] Norma Clark, RING BARKER OPERATOR, EQUIPMENT SALES SPECIALIST [address] [place] [address] POCT UA AUTOMATED W/O MICRO, [...] on file documented as of this encounter Plan of Treatment Not on file documented as of this encounter Visit Diagnoses Not on filedocumented in this encounter Care Teams Information Services Consultant Relationship Specialty Start Date End Date Linette Yepez MD [address] [place] [address] PCP - General Family Medicine 12/08/23 documented as of this encounter
--- OUTSIDE RECORDS SUMMARY | 2024-08-23 14:20 | XMS_ITS | Clinical Summary ---
Author Organization [facility] Address [address] [place] [address] Care Team Providers Care Metal Hanger Name Role Phone Linette Yepez MD Primary Care Provider Allergies Active Allergy Reactions Criticality Noted Date [...] 06/21/2022 Assessment & Plan (06/21/2022 7:25 PM SUPERVISOR SHIPPING): Worsening after of her mother in 04/2022. Feels more anxiety than depression. Admits panic attacks. Reluctant to start daily medication, don't want to feel trapped into taking medicine. Will Rx BuSpar as directed. Encouraged relaxation techniques such as deep breathing and guided imagery. Keep follow as scheduled, sooner if needed. Diarrhea 06/20/2022 Assessment & Plan (06/21/2022 7:16 PM SUPERVISOR SHIPPING): Ongoing for approximately 1 week after finishing a course of cefdinir for UTI. No more urinary symptoms or abdominal pain. No acute findings on exam. Will order CDiff test. Advised on Bowel rest: push fluids, bland high fiber diet. Continue immodium if needed. Vulvovaginitis 06/20/2022 Assessment & Plan (06/21/2022 7:17 PM SUPERVISOR SHIPPING): S/p cefdinir course for UTI. Denies discharge or genital lesions. exam deferred per pt request. Rxd Diflucan as directed. Use mild non-fragrant soaps/lotions. Recurrent UTI 06/08/2022 Assessment & Plan (06/08/2022 2:35 PM SUPERVISOR SHIPPING): Currently on Abx for treatment. Patient to [...] 12/23/2021 Assessment & Plan (06/21/2022 7:12 PM SUPERVISOR SHIPPING): BP stable in office today on current therapy. Continue current regimen and low salt diet. Stay hydrated. Assessment & Plan (06/08/2022 2:36 PM SUPERVISOR SHIPPING): Chronic and mildly elevated. Goal < 130/80. [...] 12/23/2021 Assessment & Plan (06/08/2022 2:35 PM SUPERVISOR SHIPPING): Chronic and stable. 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 with electric razor mechanic Assessment & Plan (12/23/2021 12:10 PM CDT): [...] mcg monthly) - Recheck CBC 3 months Encounters Date Type Department Care Team Description 05/31/2024 Telephone [facility] Cardiology [address] [place] [address] Onesimo George MD from Last 3 Months Surgical History Surgery Date Site/Laterality Comments GASTRECTOMY S/P laparoscopic sleeve gastrectomy Medical History Medical History Date Comments Knee pain 2009 Rt knee replacem ent// Dr. Sutherland tonsilectomy 1960 tonsilectomy ophrectomy 1959 ophrectomy Osteoarthritis Osteoarthritis Hypertension Hypertension Atrial fibrillation (HCC) Atrial fibrillation Lt hip replacement// JVR 2011 Lt hip replacement// JVR Ambulates with cane Acute cystitis with hematuria NOMI (obstructive sleep apnea) S/P laparoscopic sleeve gastrectomy UTI (urinary tract infection) Anxiety Family History Medical History Relation Name Comments Lung cancer Other 1 Family history of Cancer, lung; Hypertension Other 2 Family history of Hypertension; Osteoarthritis Other 3 Family histor y of Osteoarthritis; Osteoporosis Other 4 Family history of Osteoporosis; Relation Name Status Comments Other 1 Other 2 Other 3 Other 4 Social History Tobacco Use Types Packs/Day Years [...] materials from doctor or pharmacy Never 04/11/2023 [facility] Utilities Answer Date Recorded In the past 12 months has th e [employer], gas, oil, or water [employer] threatened to shut off services in your [...] often do you attend chur ch or mormon services? Never 02/27/2023 Do you belong to any clubs o r organizations such as worship groups, unions, fraternal or athletic groups, or [...] place to sleep or slept in a senior care (including now)? No 02/27/2023 Personal Safety Answer Date Recorded Have you ever been in or are you currently in a harmful physical or emotional relationship or is someone making you feel afraid or unsafe? Denies 02/25/2023 Comments No Sex and Gender Information Value Date Recorded Sex Assigned at Not on file Legal Sex Female 6:30 PM SUPERVISOR SHIPPING Gender Identity Not on file Sexual Orientation Not on file Obstetrics History Last Filed Vital Signs Vital Sign Reading Time Taken Comments Blood Pressure 118/70 09/19/2023 10:02 AM CDT Pulse 56 09/19/2023 10:02 AM CDT Temperature 36.2 C (97.2 F) 04/11/2023 12:53 PM SUPERVISOR SHIPPING Respiratory Rate 14 09/19/2023 10:02 AM CDT Oxygen Saturation 97% 05/22/2023 1:37 PM SUPERVISOR SHIPPING Inhaled Oxygen Concentration - - Weight 69.4 kg (153 lb) 09/19/2023 10:02 AM CDT Height 160 cm (5' 3 ) 09/19/2023 10:02 AM CDT Body Mass Index 27.1 09/19/2023 10:02 AM CDT Plan of Treatment Health Maintenance Due Date Last Done Comments Colon Cancer Screening-Colonoscopy 1950 Hepatitis C Screening 1950 Osteoporosis Screening-Bone Density Scan 1950 Hepatitis B Screening 12/26/1967 Pneumococcal vaccine 65+ (1 of 1 - PCV) 12/26/1999 Zoster Vaccine (1 of 2) 12/26/1999 Well Visit 65+ 2014 Breast Cancer Screening-Mammogram 09/10/2015 015 Covid-19 Vaccine ( season) 2023, 05/22/2020 Influenza Vaccine (#1) 2023 01/15/2015, 2008 Depression Screening 02/26/2024 02/25/2023, 11/06/2022, 12/17/2021 DTaP/Tdap/Td Vaccine (2 - Td or Tdap) 03/19/202406/2013 Fall Risk Assessment 09/18/2024 09/19/2023, 02/28/2023, 05/03/2021 Insurance MEDICARE ADVANTAGE MEDICARE ADVANTAGE [facility] MEDICARE ADVANTAGE Advance Directives For more information, please contact: [phone] * Full Code (Latest Code Status on File) Date Activated Date Inactivated Comments 02/25/2023 1:22 PM 02/28/2023 7:54 PM * Full Code Date Activated Date Inactivated Comments 11/07/2022 2:00 AM 11/08/2022 7:29 PM Care Teams Metal Hanger Relationship Specialty Start Date End Date Linette Yepez MD [address] [facility] [address] [address] PCP - General Family Medicine 11/06/22
--- OUTSIDE RECORDS SUMMARY | 2024-08-23 14:20 | XMS_ITS | Clinical Summary ---
Author Organization [facility] Address [address] [place] [address] Phone Care Team Providers Care Microsoft Dynamics Ax Developer Name Role Phone Linette Yepez MD Primary Care Provider +1- [phone] Allergies Active Allergy Reactions Criticality Noted Date Comments Gluten Diarrhea 11/21/2013 Lactose Abdominal Pain 09/24/2014 Medications citalopram (CeleXA) 40 mg tablet Take 40 mg by mouth daily. Active metoprolol tartrate (LOPRESSOR) 25 mg tablet Take 12.5 mg by mouth 2 times daily. Active lisinopriL (PRINIVIL) 10 mg tablet Take 10 mg by mouth daily. Active pregabalin (LYRICA) 100 mg Capsule Take 200 mg by mouth daily at bedtime. Active apixaban (ELIQUIS) 5 mg tablet Take 5 mg by mouth 2 times daily. Active tiZANidine (ZANAFLEX) 4 mg Capsule Take 4 mg by mouth nightly as needed for Spasm. Active albuterol HFA 90 mcg inhaler Take 2 Puffs by inhalation every 6 hours as needed for Shortness of Breath. Active amiodarone (CORDARONE) 200 mg tablet 200 mg. 0 Active HYDROcodone-aceta minophen (HYCET) 7.5-325 mg/15 mL SolutionIndicatio ns:S/P laparoscopic sleeve gastrectomy Take 15 mL by mouth every 4 hours as needed for moderate pain. Max Daily Amount: 90 mL 360 mL 04/14/2020 2:38 PM INCIDENT ENGINEER 0 Active ondansetron (Zofran ODT) 8 mg Tablet, Rapid Dissolve Dissolve 1 Tablet (8 mg) by mouth every 8 hours as needed for nausea or vomiting. 20 Tablet 2 04/14/2020 2:38 PM INCIDENT ENGINEER 0 Active Active Problems Problem Noted Date Diagnosed Date Morbid obesity with body mass index of 40.0-49.9 04/14/2020 S/P laparoscopic sleeve gastrectomy 04/14/2020 NOMI (obstructive sleep apnea) 04/14/2020 Paroxysmal atrial fibrillation 04/14/2020 Hypertension, essential 04/14/2020 Social History Tobacco Use Types Packs/Day Years [...] Sign Reading Time Taken Comments Blood Pressure 168/83 04/14/2020 7:59 AM INCIDENT ENGINEER Pulse 61 04/14/2020 7:59 AM INCIDENT ENGINEER Temperature 36.8 C (98.2 F) 04/14/2020 7:59 AM INCIDENT ENGINEER Respiratory Rate 18 04/14/2020 7:59 AM INCIDENT ENGINEER Oxygen Saturation 98% 04/14/2020 7:59 AM INCIDENT ENGINEER Inhaled Oxygen Concentration - - Weight 108.2 kg (238 lb 9.6 oz) 04/13/2020 7:05 AM INCIDENT ENGINEER Height 160 cm (5' 3 ) 04/13/2020 7:05 AM INCIDENT ENGINEER Body Mass Index 42.27 04/13/2020 7:05 AM INCIDENT ENGINEER Plan of Treatment Health Maintenance Due Date Last Done Comments BREAST CANCER SCREENING 1989 COLORECTAL SCREENING 1994 Colorectal Cancer Screening 1994 FIT-DNA Q 3 years 1994 FIT/FOBT Q 1 year 1994 Flex Sig/CT Colonography Q 5 years 1994 PNEUMOCOCCAL VACCINE 50+ YEARS (1 of 1 - PCV) 12/26/19 00 ZOSTER VACCINE (1 of 2) 12/26/1999 RSV VACCINE (60+ or ) (1 - Risk 60-74 years 1-dose series) 2009 OSTEOPOROSIS SCREENING 2014 INFLUENZA VACCINE (#1) 2023 DTAP/TDAP/TD VACCINES (2 - Td or Tdap) 03/19/2024 Medical Devices Implanted Type Area Trader Device Identifier Shelf Expiration Date Model / Serial / Lot Seamguard Endogia 60 Prpl [id number] - [id number] Implanted:Qty : 2 on 04/13/2020 by Hong Bryant MD at [facility] N/A: Abdomen [employer] 12/02/2022 [id number] / / [id number] Seamguard Endogia 60 Blk [id number] - [id number] Implanted:Qty : 1 on 04/13/2020 by Hong Bryant MD at [facility] N/A: Abdomen [employer] 08/19/2022 [id number] / / [id number] Insurance RX OPTUM RX Member Subscriber Plan / Payer (Ef fective 2016-Present) Name:Raman Susannah A Relation to Subscriber:Self Name:Raman Susannah A Payer ID:Not on file Group ID:[id number] Type:RX Medicare Part D Address: [address] Advance Directives For more information, please contact: [phone] * Full Code (Latest Code Status on File) Date Activated Date Inactivated Comments 04/13/2020 1:09 PM 04/14/2020 5:55 PM Care Teams Microsoft Dynamics Ax Developer Relationship Specialty Start Date End Date Linette Yepez MD PCP - General Family Practice 04/01/20
--- OUTSIDE RECORDS SUMMARY | 2024-08-23 14:20 | XMS_ITS | CONTINUITY OF CARE DOCUMENT ---
Author Name jenny alvarado Address Unknown Organization [facility] Address [address] [place] [address] Phone [phone] Care Team Providers Care Ship Scraper Name Role Phone Terell BROWN, Chi Unavailable INSURANCE PROVIDERS Payer name Policy type / Coverage type [place] red republican ID [facility] BENEFIT SERVICES Other [id number]
[2024-08-23 14:39] LABS: Basophils Percent Auto 0.6 % (0.2-1.2); Eosinophils Absolute Auto 0.1 K/mm3 (0-0.3); Eosinophils Percent Auto 0.9 % (0-4.4); Hemoglobin 10.9 g/dL (12.0-15.0); Immature Granulocyte Absolute 0.02 K/mm3 (0.00-0.031); Immature Granulocyte Percent A 0.3 % (0-0.5); Lymphocytes Absolute Auto 1.27 K/mm3 (0.9-3.2); Lymphocytes Percent Auto 19.8 % (18.3-44.2); Mean Corpuscular HGB Conc 31.1 g/dl (32-36); Mean Corpuscular Hemoglobin 28.5 pg (26-34); Mean Corpuscular Volume 91.6 fl (80-100); Mean Platelet Volume 10.4 fl (7.4-10.4); Monocytes Absolute Auto 0.8 K/mm3 (0.1-0.6); Neutrophils Absolute Auto 4.3 K/mm3 (1.3-6.7); Neutrophils Percent Auto 66.4 % (45.5-73.1); Platelet Count Result 259 k/mm3 (150-375); Red Blood Count 3.82 M/mm3 (4.2-5.4); Red Cell Distribution Width 14.8 % (11.5-14.5); White Blood Count 6.4 K/mm3 (4.5-10.0)
[2024-08-23 15:01] LABS: Alanine Aminotransferase 143 U/L (6-35); Albumin Level 3.4 g/dL (3.5-5.1); Alkaline Phosphatase 1313 U/L (38-126); Anion Gap 1 mmol/L (4-12); Aspartate Amino Transferase 210 U/L (14-36); Bilirubin,Total 0.9 mg/dL (0.2-1.3); Blood Urea Nitrogen 9 mg/dL (7-17); Calcium 9.2 mg/dL (8.4-10.2); Carbon Dioxide 34 mmol/L (22-30); Chloride 103 mmol/L (98-107); Estimated Glomerular Filt Rate > 60; Glucose 107 mg/dL (65-110); Potassium 3.5 mmol/L (3.4-5.0); Sodium 138 mmol/L (137-145)
[2024-08-23 15:06] LABS: Erythrocyte Sedimentation Rate 17 mm/hr (0-20)
[2024-08-23 15:17] LABS: Iron 55 ug/dL (37-170)
[2024-08-23 15:25] LABS: Thyroid Stimulating Hormone < 0.015 uIU/mL (0.465-4.680)
[2024-08-23 15:26] LABS: Percent Iron Saturation 24 % (20-50)
[2024-08-23 15:34] LABS: Free T4 Free Thyroxine 1.73 ng/dL (0.78-2.19)
[2024-08-26 15:39] LABS: Red Blood Cell Folate 652 ng/mL RBC (>280)
[2024-08-29 11:33] LABS: Vitamin D 1,25 (OH)2 Total 33 pg/mL (18-72); Vitamin D2 1,25 (OH)2 <8 pg/mL; Vitamin D3 1,25 (OH)2 33 pg/mL
== END 2024-08-23 14:16 | disposition home or self-care (01) ==
LOC: ANHLAB 14:17
PROVIDERS: PCP Family Medicine; Visit Provider Physician Assistant
DX: E07.9 Disorder of thyroid, unspecified (principal); R10.9 Unspecified abdominal pain; R63.4 Abnormal weight loss; R53.1 Weakness; D64.9 Anemia, unspecified; E55.9 Vitamin D deficiency, unspecified; Z90.3 Acquired absence of stomach [part of]
CPT/HCPCS: 36415; 80053; 82607; 82652; 82747; 83540; 83550; 84439; 84443; 85025; 85652

== ENCOUNTER 2024-08-26 15:10 | Outpatient (CLI) | payer MEDICARE, SELFPAY ==
--- OUTSIDE RECORDS SUMMARY | 2024-08-26 15:14 | XMS_ITS | Encounter Summary ---
Author Organization [facility] Address [address] [place] [address] Phone Care Team Providers Care Yacht Builder Name Role Phone Linette Yepez MD Primary Care Provider +1- [phone] Encounter Details Date Type Department Care Team (Late st Contact Info) Description 08/09/2024 Results Follow-Up [facility] - [facility] - [place] [address] [place] [address] Norma Clark, JUNIOR AUTOMATION ENGINEER, DIRECTOR FOUNDATION [address] [place] [address] POCT UA AUTOMATED W/O MICRO, [...] on filedocumented in this encounter Care Teams Yacht Builder Relationship Specialty Start Date End Date Linette Yepez MD [address] [place] [address] PCP - General Family Medicine 12/08/23 documented as of this encounter
--- OUTSIDE RECORDS SUMMARY | 2024-08-26 15:14 | XMS_ITS | Clinical Summary ---
Author Organization [facility] Address [address] [place] [address] Phone Care Team Providers Care Geology Technician Name Role Phone Linette Yepez MD Primary Care Provider +1- [phone] Allergies Active Allergy Reactions Criticality Noted Date [...] mg by mouth 2 times daily. rx [id number] Active NIFEdipine CR (PROCARDIA-XL) 30 MG TABLET SR 24 HR Take 30 mg by mouth daily. rx [id number] Active Buprenorphine HCl (Belbuca) 600 MCG FILM Take 1 Film by mouth 2 times daily. rx [id number] Active hydrOXYzine (ATARAX) 25 MG Tablet Take 25 mg by mouth 3 times daily as needed for Itching or Nausea (vomiting). rx [id number] Active famotidine (PEPCID) 20 MG Tablet Take 20 mg by mouth daily. rx [id number] Active traMADol (ULTRAM) 50 MG Tablet take [...] Department Care Team Description 08/09/2024 Results Follow-Up [facility] - [facility] [place] [address] [place] [address] Norma Clark, AIRBORNE SENSOR SPECIALIST, ATHLETICS TEACHER POCT UA AUTOMATED W/O MICRO, CULTURE, URINE 08/07/2024 1:20 PM CDT Urgent Care Visit [facility] [address] [place] [id number] Amrita Vee APRN, [place] Diarrhea, unspecified type (Primary Dx); Dysuria Discharge Disposition: Discharged to home or Selfcare 08/07/2024 Travel 07/13/2024 Results Follow-Up [place] [phone] Norma Clark APRN, [place] POCT UA AUTOMATED W/O MICRO, CULTURE, URINE 07/11/2024 1:30 PM CDT Urgent Care Visit [facility] [address] [facility] [place] [address] Connie Sharma APRN, LORET[place] Acute [...] Distal Urethral Contaminants 08/08/2024 11:53 PM CDT [facility] URINE SPECIMEN / Unknown Non-Phlebotomy Collection / Unknown 08/07/2024 1:53 PM CDT 08/07/2024 1:53 PM CDT Amrita Vee APRN, CNP MICROBIOLOGY - GENERAL ORDERABLES Final Result [facility] [address] [place] [address], [place] * POCT UA AUTOMATED W/O MICRO [...] from Last 3 Months Insurance [facility] Advance Directives * Full Code (Latest Code Status on File) Date Activated Date Inactivated Comments 12/27/2023 9:36 AM Care Teams Geology Technician Relationship Specialty Start Date End Date Linette Yepez MD [address] [facility] [address] [place] [id number] PCP - General Family Medicine 12/08/23
--- OUTSIDE RECORDS SUMMARY | 2024-08-26 15:14 | XMS_ITS | Clinical Summary ---
Author Organization [facility] Address [address] [place] [address] Phone Care Team Providers Care Hydrologic Modeler Name Role Phone Linette Yepez MD Primary Care Provider +1- [phone] Allergies Active Allergy Reactions Criticality Noted Date [...] 90 mL 360 mL 04/14/2020 2:38 PM BUFFET SERVER 0 Active ondansetron (Zofran ODT) 8 mg Tablet, Rapid Dissolve Dissolve 1 Tablet (8 mg) by mouth every 8 hours as needed for nausea or vomiting. 20 Tablet 2 04/14/2020 2:38 PM BUFFET SERVER 0 Active Active Problems Problem Noted Date [...] Comments Blood Pressure 168/83 04/14/2020 7:59 AM BUFFET SERVER Pulse 61 04/14/2020 7:59 AM BUFFET SERVER Temperature 36.8 C (98.2 F) 04/14/2020 7:59 AM BUFFET SERVER Respiratory Rate 18 04/14/2020 7:59 AM BUFFET SERVER Oxygen Saturation 98% 04/14/2020 7:59 AM BUFFET SERVER Inhaled Oxygen Concentration - - Weight 108.2 kg (238 lb 9.6 oz) 04/13/2020 7:05 AM BUFFET SERVER Height 160 cm (5' 3 ) 04/13/2020 7:05 AM BUFFET SERVER Body Mass Index 42.27 04/13/2020 7:05 AM BUFFET SERVER Plan of Treatment Health Maintenance Due Date [...] Tdap) 03/19/2024 Medical Devices Implanted Type Area Dock Operations Supervisor Device Identifier Shelf Expiration Date Model / Serial / Lot Seamguard Endogia 60 Prpl [id number] - [id number] Implanted:Qty : 2 on 04/13/2020 by Hong Bryant MD at [facility] N/A: Abdomen [employer] 12/02/2022 [id number] / / [id number] Seamguard Endogia 60 Blk [id number] - [id number] Implanted:Qty : 1 on 04/13/2020 by Hong Bryant MD at [facility] N/A: Abdomen [employer] 08/19/2022 [id number] / / [id number] Insurance RX [employer] RX Member Subscriber Plan / Payer (Ef fective 2016-Present) Name:Raman Susannah A Relation to Subscriber:Self Name:Raman Susannah A Payer ID:Not on file Group ID:[id number] Type:RX Medicare Part D Address: [address] Advance Directives For more information, please contact: [phone] * Full Code (Latest Code Status on File) Date Activated Date Inactivated Comments 04/13/2020 1:09 PM 04/14/2020 5:55 PM Care Teams Hydrologic Modeler Relationship Specialty Start Date End Date Linette Yepez MD PCP - General Family Practice 04/01/20
--- OUTSIDE RECORDS SUMMARY | 2024-08-26 15:14 | XMS_ITS | Encounter Summary ---
Author Organization [facility] [address] [facility] [address] [place] [address] Care Team Providers Care Business Writer Name Role Phone Linette Yepez MD Primary Care Provider +1- [phone] Reason for Visit * Reason Onset Date Comments MEDICAL MANAGEMENT 04/13/2020 JENNIFER W/ RAVI Nettles/ [facility] Encounter Details Date Type Department Care Team ([facility] st Contact Info) Description 04/13/2020 Telephone [facility] Admitting [address] [place] [address] [place] [address] [place] [address] [place] [address] MEDICAL MANAGEMENT (JENNIFER Nettles/ RAIV Nettles/ [facility]OSPITAL[facility]) Social History Tobacco Use [...] COVID-19? No / Unsure 04/13/2020 6:46 AM OBIEE CONSULTANT documented as of this encounter Plan of Treatment Not on file documented as of this encounter Visit Diagnoses Not on filedocumented in this encounter Care Teams Business Writer Relationship Specialty Start Date End Date Linette Yepez MD PCP - General Family Practice 04/01/20 documented as of this encounter
--- OUTSIDE RECORDS SUMMARY | 2024-08-26 15:14 | XMS_ITS | Encounter Summary ---
Author Organization [facility] Address [address] [place] [address] Phone Care Team Providers Care Ripper Operator Name Role Phone Linette Yepez MD Primary Care Provider [phone]- [phone] Encounter Details Date Type Department Care Team (Late st Contact Info) Description 07/13/2024 Results [facility] - [place] [address] [place] [address] Norma Clark, CHANGE NUMBER OPERATOR, ENGINEERING DESIGN SUPERVISOR [address] [place] [address] POCT UA AUTOMATED W/O MICRO, [...] on filedocumented in this encounter Care Teams Ripper Operator Relationship Specialty Start Date End Date Linette Yepez MD [address] [facility] [address] [facility] [address] [place] [id number] PCP - General Family Medicine 12/08/23 documented as of this encounter
--- OUTSIDE RECORDS SUMMARY | 2024-08-26 15:14 | XMS_ITS ---
Author Organization [facility] Address [address] [place] [address] [address] [place] [address] Care Team Providers Care Refrigerator Repairman Name Role Phone Linette Yepez MD Primary Care Provider Francie Nidhi Alejandre [phone] Medications Medication SIG (Take, Route, Frequency, Duration) Notes Start Date End Date Status traMADol HCl 50 MG Take 1 tablet Oral three times per day for 30 days Do not fill until 08/23/24 08/20/2024 Active Belbuca 600 MCG 1 film [place] every 12 hrs for 30 days Do not fill until 08/23/24 08/20/2024 Active Encounters Encounter Location Date Provider Diagnosis [facility] [address] [place] [address] 08/20/2024 Nidhi Dick Plan Of Treatment Medication Medication Name Sig Start Date Stop Date Notes traMADol HCl 50 MG Take 1 tablet Oral t hree times per day for 30 days 08/20/2024 Do not fill until 08/23/24 Belbuca 600 MCG 1 film Bucally every 12 hrs for 30 days 08/20/2024 Do not fill until 08/23/24 Progress Notes * Susannah GONCALVES ADOB:[birth year] (73 yo F)Acc No.[id number]:08/20/2024 Patient: Susannah JOHN :1950 A ge:73 Y S ex:Female Address:[address] [place] [address], [address] * Refills Refill Belbuca Film, 600 MCG, [place]ally, 60, 1 film, every 12 hrs, 30 days, Refills=0 Refill traMADol HCl Tablet, 50 MG, Oral, 90, Take 1 tablet, three times per day, 30 days, Refills=0 * true * Date: Generated for Charles patterson/[place]/Lucila on: 0 08/26/2024 03:14 PM CDT
--- OUTSIDE RECORDS SUMMARY | 2024-08-26 15:15 | XMS_ITS | CONTINUITY OF CARE DOCUMENT ---
Author Name jenny lavarado Address Unknown Organization [facility] Address [address] [place] [address] Phone [phone] Care Team Providers Care Continuous Pickling Line Pickler Helper Name Role Phone Terell BROWN, Chi Unavailable [phone] INSURANCE PROVIDERS Payer name Policy type / Coverage type [place] red republican ID [facility] BENEFIT SERVICES Other [id number]
--- OUTSIDE RECORDS SUMMARY | 2024-08-26 15:15 | XMS_ITS | Referral Summary ---
Author Organization [facility] Address [address] [place] [address] Care Team Providers Care Commercial Airplane Pilot Name Role Phone Linette Yepez MD Primary Care Provider Encounters Date Type Department Care Team Description 05/31/[address] [facility] Cardiology [address] [place] [address] KAREN Ramirez [phone] Onesimo George MD from [...] 06/21/2022 Assessment & Plan (06/21/2022 7:25 PM ACCESS SERVICES REPRESENTATIVE): Worsening after of her mother in 04/2022. Feels more anxiety than depression. Admits panic attacks. Reluctant to start daily medication, don't want to feel trapped into taking medicine. Will Rx BuSpar as directed. Encouraged relaxation techniques such as deep breathing and guided imagery. Keep follow as scheduled, sooner if needed. Diarrhea 06/20/2022 Assessment & Plan (06/21/2022 7:16 PM ACCESS SERVICES REPRESENTATIVE): Ongoing for approximately 1 week after finishing a course of cefdinir for UTI. No more urinary symptoms or abdominal pain. No acute findings on exam. Will order CDiff test. Advised on Bowel rest: push fluids, bland high fiber diet. Continue immodium if needed. Vulvovaginitis 06/20/2022 Assessment & Plan (06/21/2022 7:17 PM ACCESS SERVICES REPRESENTATIVE): S/p cefdinir course for UTI. Denies discharge or genital lesions. exam deferred per pt request. Rxd Diflucan as directed. Use mild non-fragrant soaps/lotions. Recurrent UTI 06/08/2022 Assessment & Plan (06/08/2022 2:35 PM ACCESS SERVICES REPRESENTATIVE): Currently on Abx for treatment. Patient to [...] 12/23/2021 Assessment & Plan (06/21/2022 7:12 PM ACCESS SERVICES REPRESENTATIVE): BP stable in office today on current therapy. Continue current regimen and low salt diet. Stay hydrated. Assessment & Plan (06/08/2022 2:36 PM ACCESS SERVICES REPRESENTATIVE): Chronic and mildly elevated. Goal < 130/80. [...] 12/23/2021 Assessment & Plan (06/08/2022 2:35 PM ACCESS SERVICES REPRESENTATIVE): Chronic and stable. 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 with web press roll tender Assessment & Plan (12/23/2021 12:10 PM CDT): [...] materials from doctor or pharmacy Never 04/11/2023 [facility] Utilities Answer Date Recorded In the past 12 months has th e SMS [employer], gas, oil, or water [employer] threatened to shut off services in your [...] often do you attend chur ch or moravian services? Never 02/27/2023 Do you belong to any clubs o r organizations such as mu-ism groups, unions, fraternal or athletic groups, or [...] place to sleep or slept in a residential (including now)? No 02/27/2023 Personal Safety Answer Date Recorded Have you ever been in or are you currently in a harmful physical or emotional relationship or is someone making you feel afraid or unsafe? Denies 02/25/2023 Comments No Sex and Gender Information Value Date Recorded Sex Assigned at Not on file Legal Sex Female 6:30 PM ACCESS SERVICES REPRESENTATIVE Gender Identity Not on file Sexual Orientation Not on file Last Filed Vital Signs Vital Sign Reading Time Taken Comments Blood Pressure 118/70 09/19/2023 10:02 AM CDT Pulse 56 09/19/2023 10:02 AM CDT Temperature 36.2 C (97.2 F) 04/11/2023 12:53 PM ACCESS SERVICES REPRESENTATIVE Respiratory Rate 14 09/19/2023 10:02 AM CDT Oxygen Saturation 97% 05/22/2023 1:37 PM ACCESS SERVICES REPRESENTATIVE Inhaled Oxygen Concentration - - Weight 69.4 kg (153 lb) 09/19/2023 10:02 AM CDT Height 160 cm (5' 3 ) 09/19/2023 10:02 AM CDT Body Mass Index 27.1 09/19/2023 10:02 AM CDT Plan of Treatment Not on file Insurance MEDICARE ADVANTAGE [facility] MEDICARE Address: [facility] [address] [place] [address] MEDICARE ADVANTAGE [facility] MEDIC[facility] Address: [address] [address] [place] [address] [facility] MEDICARE ADVANTAGE [facility] Address: [address] [address] [place] [address] Advance Directives For more information, please contact: [phone] * Full Code (Latest Code Status on File) Date Activated Date Inactivated Comments 02/25/2023 1:22 PM 02/28/2023 7:54 PM * Full Code Date Activated Date Inactivated Comments 11/07/2022 2:00 AM 11/08/2022 7:29 PM Care Teams Commercial Airplane Pilot Relationship Specialty Start Date End Date Linette Yepez MD [address] [facility] [address] [place] [address] PCP - General Family Medicine 11/06/22
--- OUTSIDE RECORDS SUMMARY | 2024-08-26 15:15 | XMS_ITS ---
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 Name Role Phone Linette Yepez MD Primary Care Provider Francie Nidhi Alejandre [phone] Medications Medication SIG (Take, Route, Frequency, Duration) Notes Start Date End Date Status Belbuca 600 MCG 1 film Bucally every 12 hrs for 30 days Do not fill until 07/24/24 07/16/2024 Active traMADol HCl 50 MG Take 1 tablet Oral three times per day for 30 days Do not fill until 07/24/24 07/16/2024 Active Encounters Encounter Location Date Provider Diagnosis [facility] [address] [place] [phone] 07/16/2024 Nidhi Dick Plan Of Treatment Medication Medication Name Sig Start Date Stop Date Notes Belbuca 600 MCG 1 film Bucally every 12 hrs for 30 days 07/16/2024 Do not fill until 07/24/24 traMADol HCl 50 MG Take 1 tablet Oral t hree times per day for 30 days 07/16/2024 Do not fill until 07/24/24 Progress Notes * Susannah GONCALVES ADOB:[birth year] (73 yo F)Acc No.[id number]:07/16/2024 Patient: Susannah JOHN :1950 A ge:73 Y S ex:Female Address:[address] [place] [address], [phone] * Refills Refill Belbuca Film, 600 MCG, Bucally, 60, 1 film, every 12 hrs, 30 days, Refills=0 Refill traMADol HCl Tablet, 50 MG, Oral, 90, Take 1 tablet, three times per day, 30 days, Refills=0 * true * Date: Generated for Charles patterson/[place]/Lucila on: 0 08/26/2024 03:14 PM CDT
--- OUTSIDE RECORDS SUMMARY | 2024-08-26 15:15 | XMS_ITS ---
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 estimate): 07/30/2024 16. When was your last Mammo gram? (Please put N/A if you are male, for Females please put the best Estimate or Never. ): 04/17/1998 17. When was your last Colon oscopy? (Please put the best Estimate or Never. ): 04/17/1998 18. Do you need any refills on your medi cations today?: Yes 19. Please list ALL changes to Medicatio ns or Allergies?: None 20. Are you Diabetic?: No 21. Do you suffer from Constipation?: No Procedure Consent Pain Management Agreement mitch nunez on: 08/20/2024 Physical Examination Category Sub-Category Detail Notes Section Note s General: Patient is A&O x 4. Does not appear in any acute distress Lungs: non-labored respirations. Patient able to speak in full sentences without difficulty .Musculoskeletal: ambulates unassisted, non-antalgic gait, transfers without difficulty. Forward head carriage. Limited cervical ROM with flexion/extension and bilateral internal/external rotation, worse on right side. Tenderness with compression right upper trapezius. BUE strength 4/5 bilaterally. No sensory deficits.
--- OUTSIDE RECORDS SUMMARY | 2024-08-26 15:15 | XMS_ITS | Clinical Summary ---
Author Organization [facility] Address [address] [place] [address] Care Team Providers Care Rib Puller Name Role Phone Aury Joseph RN Unavailable [phone] Dar Stinson MD Unavailable [phone] Linette Yepez MD Primary Care Provider + Source Comments [facility],non-owned Affiliates and Associated Physician Practices is amultiple site organization consisting of ambulatory clinics and hospital sitesin [place], [place], [place] and [place]. This disclosure is being madepursuant to the Care Everywhere program and may not contain all information available regarding this patient. 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 [employer] Not on file Not on file Not on file Last Filed Vital Signs Vital Sign Reading Time Taken Comments Blood Pressure 106/74 06/16/2021 10:41 AM BUSINESS INFORMATION MANAGER Pulse 60 06/16/2021 10:41 AM BUSINESS INFORMATION MANAGER Temperature 36.2 C (97.2 F) 06/16/2021 10:41 AM BUSINESS INFORMATION MANAGER Respiratory Rate 20 06/16/2021 10:41 AM BUSINESS INFORMATION MANAGER Oxygen Saturation 97% 06/16/2021 10:41 AM BUSINESS INFORMATION MANAGER Inhaled Oxygen Concentration - - Weight 72.6 kg (160 lb) 06/16/2021 10:41 AM BUSINESS INFORMATION MANAGER Height 160 cm (5' 3 ) 06/16/2021 10:41 AM BUSINESS INFORMATION MANAGER Body Mass Index 28.34 06/16/2021 10:41 AM BUSINESS INFORMATION MANAGER Plan of Treatment Health Maintenance Due Date [...] < 140/90 Blood Pressure 106/74(2021 10:41 AM BUSINESS INFORMATION MANAGER) Nae Montanez MA Medical Devices Implanted Type Area Intensive Care Unit Nurse Device Identifier Shelf Expiration Date Model / Serial / Lot Shell Coat 3hole 54mm Implanted:Qty: 1 on 11/21/2013 by Francis Cortes MD at [facility] Right: Hip [employer] 08/16/2023 [id number] / / [id number] Linr Acetab Refl Xlpe 0deg 36mm X 54mm Implanted:Qty: 1 on 11/21/2013 by Francis Cortes MD at [facility] Right: Hip [employer] 10/15/2023 [id number] / / [id number] Spherical Head Screw 6.5mm Cancellous Implanted:Qty: 1 on 11/21/2013 by Francis Cortes MD at [facility] Right: Hip [employer] 05/17/2023 [id number] / / [id number] Standard Offset Fixed Neck Stikitite Coated Stem Feoral Coponent Implanted:Qty: 1 on 11/21/2013 by Francis Cortes MD at [facility] Right: Hip [employer] 06/14/2023 [id number] / / [id number] 03/30 Taper Femoral Head Implanted:Qty: 1 on 11/21/2013 by Francis Cortes MD at [facility] Right: Hip [employer] 12/14/2022 [id number] / / [id number] Bill Only H1 Uncem Metal Or Ceramic Implanted:Qty: 1 on 11/21/2013 by Francis Cortes MD at [facility] [employer] H1 BILL ONLY [...] 1:06 PM CDT Narrative Resulting Agency Comment [facility] [address] [id number] Feliciano Oliver MD LAB - CHEMISTRY ORDERABLES Fin al Result [facility] ACCOUNT BILL [address] [place] [address] * MAMMO SCREENING DIGITAL IMAGE BILAT (09/09/2014 5:05 PM CDT) Anatomical Region Laterality Modality Breast Bilateral Mammography 09/10/2014 5:08 PM CDT Impressions 09/10/2014 5:09 PM CDT No mammographic evidence of malignancy in either breast. ASSESSMENT: BIRADS Category 1: Negative. RECOMMENDATION: Bilateral screening mammogram in one year. Thank you for allowing us to participate in the care of your patient. [facility] [place] utilizes [employer] as a reminder system to notify patients of their next recommended mammogram. Narrative 09/10/2014 5:09 PM CDT EXAMINATION: Digital screening mammogram on 09/09/2014. Computer assisted detection was utilized. PRIOR: Mammogram from [facility] in 09/28/2006. FINDINGS: Breast parenchymal density: [...] offers HCV Ab w/Reflex to Verification test #[id number]. Blood specimen (specimen) BLOOD SPECIMEN / Unknown 08/09/2013 8:53 AM CDT 08/09/2013 12:57 PM CDT Narrative Resulting Agency Comment [facility] [address] [facility] [id number] Feliciano Oliver MD LAB - CHEMISTRY ORDERABLES Fin al Result [facility] ACCOUNT BILL [address] [place] [address] from Last 3 Months or Most Recently Relevant to Health Maintenance Insurance MANAGED MEDICARE ADV MANAGED MEDICARE ADV Advance Directives * Full Code (Latest Code Status on File) Date Activated Date Inactivated Comments 11/21/2013 12:38 PM 11/24/2013 6:31 PM * Full Code Date Activated Date Inactivated Comments 02/18/2009 10:26 AM 02/22/2009 1:32 AM Care Teams Rib Puller Relationship Specialty Start Date End Date Linette Yepez MD [address] [facility] [address] [place] [address] PCP - General Family Medicine 01/09/20 Aury Joseph, RN Gimp Tacker 11/22/13 [place] [address] [address] Orthopedic Surgery 12/27/13
--- OUTSIDE RECORDS SUMMARY | 2024-08-26 15:15 | XMS_ITS | Patient Health Record ---
Author Organization [facility] Address [address] [place] [address] Care Team Providers [facility] Licensed Practical Nurse Name Role Phone Lucho BROWN, Linette Primary Care Provider Francie Nidhi Alejandre Unavailable [phone] Maegan POPE, Sussy Unavailable [phone] Lissette Colby Unavailable [phone] Johnathon Dick Unavailable [phone] Allergies No Known Allergies Results Component Value Reference Range Notes [employer] [facility] Profil e (Not yet reviewed by provider) Interpretation: Performing Lab:[facility] (CLIA#: [id number]), [address] [place] [address], Director - Adelina Jensen Notes/Report: These tests were developed and their performance characteristics determined by [facility]. They have not been cleared or approved by the [place] Food and Drug Administration. Certifying Pole Framer: Shalom Nicholson (Remote [id number]) Analyzed at [facility] (CLIA#: [id number]) - [address] [place] [address] - Traffic Superintendent: Adelina Ontiveros Cital+Escital Ur CMP >22723 >=50 ng/mL COMPLIA NT: Test result is consistent and expected with prescribed drug. Buspirone Ur CMP <25 >=25 ng/mL NON-COMPLIA NT: Test result indicates patient may not be taking drug prescribed. Milnacipran Ur CMP <5 >=5 ng/mL NON-COMPL IANT: Test result indicates patient may not be taking drug prescribed. Buprenorphine Ur CMP 88 >=1 ng/mL COMPLIA NT: Test result is consistent and expected with prescribed drug. Tramadol Ur CMP >79226 >=100 ng/mL COMPLIANT: T est result is consistent and expected with prescribed drug. Pregabalin Ur CMP <5 >=5 mcg/mL NON-COMPLI ANT: Test result indicates patient may not be taking drug prescribed. Ethyl Sulfate Ur CMP 84888 >=200 ng/mL PRESENT : Test result is consistent with alcohol exposure within 72 hours of specimen collection. For additional information, please consult the Clinical Team at or email [email or web address] EXPECTED Test result is consistent with routinely analyzed human urine. 6MAM Ur Ql Cfm <10 >=10 ng/mL NONE DETECTED Amphetamines Ur Ql Cfm <100 >=100 ng/mL NONE DETECTED Benzodiaz Ur Ql Cfm <50 >=50 ng/mL NONE DET ECTED Buprenorphine Ur Ql Cfm >=1 >=1 ng/mL POSI TIVE Norbuprenorphine Ur Cfm-mCnc 40 >=2.5 ng/mL POSITIVE Buprenorphine Ur Cfm-mCnc 48 >=1 ng/mL PO SITIVE BZE Ur Ql Cfm <50 >=50 ng/mL NONE DETECTED Fentanyl+Norfentanyl Ur Ql Cfm <5 >=5 ng/mL NONE DETECTED Gabapentin Ur Ql <5 >=5 mcg/mL NONE DETECT ED Carisoprodol+Meprob Ur Ql Scn <200 >=200 ng/mL NONE DETECTED Methadone Ur Ql Cfm <200 >=200 ng/mL NONE DET ECTED Meperidine Ur Ql Cfm <100 >=100 ng/mL NONE DE TECTED Opiates Ur Ql Cfm <100 >=100 ng/mL NONE DETEC VALERIA Pregabalin(Lyrica) Ur Ql Cfm <5 >=5 mcg/mL NONE DETECTED Tramadol Ur Ql Cfm >=100 >=100 ng/mL POSITIVE Nortramadol Ur Cfm-mCnc 5100 >=100 ng/mL POSI TIVE Tramadol Ur Cfm-mCnc >72454 >=100 ng/mL POSITIV E N-Desmethyl Tram Ur Cfm-mCnc >48675 >=100 ng/mL POSITIVE Creat Ur-mCnc 275.9 20 - 370 mg/dL NORMAL Creatinine and pH are performed for specimen validity and not diagnostic purposes. pH Ur 6.04 4.5 - 9.0 NORMAL Creatinine and pH are performed for specimen validity and not diagnostic purposes. Alcohol Metabolites Ur Ql Cfm >=200 >=200 ng/mL POSITIVE Ethyl sulfate Ur Cfm-mCnc 53625 >=200 ng/mL PO SITIVE Busprione Ur Ql Cfm <25 >=25 ng/mL NONE DET ECTED SSRI Profile Ur Ql Cfm >=50 >=50 ng/mL POSIT NILSA Citalopram Ur Cfm-mCnc >80010 >=50 ng/mL POSIT INLSA Norcitalopram Ur-mCnc >61188 >=50 ng/mL POSITI VE SN Reuptake Inhibitors Ur Ql <5 >=5 ng/mL NONE DETECTED Synthetic Stimulants Ur Ql Cfm <1 >=1 ng/mL NONE DETECTED PAYMENT SPECIALIST Not Otherwise Specified Ur Ql Cfm <1 >=1 ng/mL NONE DETECTED Synthetic Cannabinoids Ur Ql Cfm <1 >=1 ng/m L NONE DETECTED Hallucinogens/Dissociatives Ur Ql Cfm <1 >=1 ng/mL NONE DETECTED Code Official Benzodiazepines Ur Ql Cfm <1 >=1 ng/mL NONE DETECTED Code Official Opioids Ur Ql Cfm <1 >=1 ng/mL N ONE DETECTED THC Ur Ql Scn <20 >=20 ng/mL NONE DETECTED [email or web address] Profil e Reviewed date:03/04/2024 07:46:44 AM Interpretation: Performing Lab:[facility] (CLIA#: [id number]), [address] [place] [address], Director - Adelina Jensen Notes/Report: Analyzed at [facility] (CLIA#: [id number]) - [address] [place] [address] - Traffic Superintendent: Adelina Ontiveros These tests were developed and their performance characteristics determined by [facility]. They have not been cleared or approved by the [place] Food and Drug Administration. Certifying Pole Framer: Nicolas Carlson (Remote [id number]) Cital+Escital Ur CMP >27228 >=50 ng/mL COMPLIA NT: Test result is consistent and expected with prescribed drug. Buspirone Ur CMP <25 >=25 ng/mL NON-COMPLIA NT: Test result indicates patient may not be taking drug prescribed. Tizanidine Ur CMP 175 >=5 ng/mL COMPLIANT: Test result is consistent and expected with prescribed drug. Buprenorphine Ur CMP 71 >=1 ng/mL COMPLIA NT: Test result is consistent and expected with prescribed drug. Tramadol Ur CMP 5283 >=100 ng/mL COMPLIANT: T est result is consistent and expected with prescribed drug. Pregabalin Ur CMP 20 >=5 mcg/mL PRESENT: A prescription drug, not indicated as prescribed on the requisition form, was detected. Ethyl Sulfate Ur CMP 13071 >=200 ng/mL PRESENT : Test result is consistent with alcohol exposure within 72 hours of specimen collection. For additional information, please consult the Clinical Team at or email [email or web address] [employer] EXPECTED Test result is consistent with routinely analyzed human urine. 6MAM Ur Ql Cfm <10 >=10 ng/mL NONE DETECTED Amphetamines Ur Ql Cfm <100 >=100 ng/mL NONE DETECTED Benzodiaz Ur Ql Cfm <50 >=50 ng/mL NONE DET ECTED Buprenorphine Ur Ql Cfm >=1 >=1 ng/mL POSI TIVE Norbuprenorphine Ur Cfm-mCnc 23 >=2.5 ng/mL POSITIVE Buprenorphine Ur Cfm-mCnc 47 >=1 ng/mL PO SITIVE BZE Ur Ql Cfm <50 >=50 ng/mL NONE DETECTED Fentanyl+Norfentanyl Ur Ql Cfm <5 >=5 ng/mL NONE DETECTED Gabapentin Ur Ql <5 >=5 mcg/mL NONE DETECT ED Carisoprodol+Meprob Ur Ql Scn <200 >=200 ng/mL NONE DETECTED Methadone Ur Ql Cfm <200 >=200 ng/mL NONE DET ECTED Meperidine Ur Ql Cfm <100 >=100 ng/mL NONE DE TECTED Opiates Ur Ql Cfm <100 >=100 ng/mL NONE DETEC VALERIA Pregabalin(Lyrica) Ur Ql Cfm >=5 >=5 mcg/mL POSITIVE Pregabalin Ur Cfm-mCnc 20 >=5 mcg/mL POSIT NILSA Tramadol Ur Ql Cfm >=100 >=100 ng/mL POSITIVE N-Desmethyl Tram Ur Cfm-mCnc 5283 >=100 ng/mL POSITIVE Creat Ur-mCnc 111.2 20 - 370 mg/dL NORMAL Creatinine and pH are performed for specimen validity and not diagnostic purposes. pH Ur 5.47 4.5 - 9.0 NORMAL Creatinine and pH are performed for specimen validity and not diagnostic purposes. Alcohol Metabolites Ur Ql Cfm >=200 >=200 ng/mL POSITIVE Ethyl sulfate Ur Cfm-mCnc 58616 >=200 ng/mL PO SITIVE Busprione Ur Ql Cfm <25 >=25 ng/mL NONE DET ECTED Tizanidine Ur Ql Cfm >=25 >=25 ng/mL POSITIV E Tizanidine Ur Cfm-mCnc 157 >=25 ng/mL POSIT NILSA Dehydrotizanidine Ur Cfm-mCnc 17 >=5 ng/mL POSITIVE SSRI Profile Ur Ql Cfm >=50 >=50 ng/mL POSIT NILSA Norcitalopram Ur-mCnc >18412 >=50 ng/mL POSITI VE Synthetic Stimulants Ur Ql Cfm <1 >=1 ng/mL NONE DETECTED PAYMENT SPECIALIST Not Otherwise Specified Ur Ql Cfm <1 >=1 ng/mL NONE DETECTED Synthetic Cannabinoids Ur Ql Cfm <1 >=1 ng/m L NONE DETECTED Hallucinogens/Dissociatives Ur Ql Cfm <1 >=1 ng/mL NONE DETECTED Code Official Benzodiazepines Ur Ql Cfm <1 >=1 ng/mL NONE DETECTED Code Official Opioids Ur Ql Cfm <1 >=1 ng/mL N ONE DETECTED THC Ur Ql Scn <20 >=20 ng/mL NONE DETECTED Reason For Referral No Information Medications Medication SIG (Take, Route, Frequency, Duration) Notes Start Date End Date Status Citalopram Hydrobromide 40 MG TAKE 1 TABLET BY MOUTH EVERY DAY Oral for 90 Days Active Citalopram Hydrobromide 40 MG Oral for 90 Days Active busPIRone HCl 10 MG Oral for 90 Days Active Carvedilol 6.25 MG Oral for 90 Days Active Lisinopril 40 MG Oral for 90 Days Active NIFEdipine ER 30 MG Oral for 90 Days Active traMADol HCl 50 MG Take 1 tablet Oral three times per day for 30 days Do not fill until 08/23/24 08/20/2024 Active Lyrica 25 MG 1 capsule Orally Once a day 01/11/2024 Active tiZANidine HCl 2 MG Take 1 tablet Oral three times per day for 30 days Active Xarelto 20 MG Oral for 90 Days Active Belbuca 600 MCG 1 film Bucally every 12 hrs for 30 days Do not fill until 08/23/24 08/20/2024 Active Propafenone HCl ER 225 MG Oral for 30 Days Active Problems Problem Type SNOMED Code ICD Code Onset Dates Problem Status W/U Status Risk Notes Problem Cervical spondylosis (006297087) Cervical spondylosis (M47.812) Active confirmed Problem Long-term current use of drug therapy (272444854) 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 inspector use of drug (Z79.899) Active confirmed Problem Neck pain (61687478) Cervical spine pain (M54.2) Active confirmed Problem Hypertension (80890348) Hypertension (I10) 0 Active confirmed Problem Low back pain (818151647) Low back pain (M54.50) Active confirmed Vital Signs Heart Rate 61 /min 08/20/2024 Height-cm 160.02 cm 08/20/2024 Blood pressure diastolic 89 mm Hg 08/20/2024 Weight-kg 63.05 kg 08/20/2024 Height 5ft 3in in 08/20/2024 Blood pressure systolic 142 mm Hg 08/20/2024 Weight 139 lbs 08/20/2024 BMI 24.62 kg/m2 08/20/2024 Encounters Encounter Location Date Provider Diagnosis [facility] [address] [place] [phone] 09/05/2023 [facility] [address] [place] [phone] 09/26/2023 [facility] [address] [place] [address] 10/12/2023 [facility] [address] [place] [phone] 08/20/2024 Lissette Colby Cervical spondylosis M47.812 ; Cervical spine pain M54.2 ; Low back pain M54.50 and USP use of drug Z79.899 [facility] [address] [place] [address] [address] [place] [address] 11/21/2023 Lissette Colby Cervical spine pain M54.2 ; DDD (degenerative disc disease), lumbar M51.36 and USP use of drug Z79.899 [facility] [address] [place] [address] [address] [place] [address] 12/26/2023 Lissette Colby Cervical spine pain M54.2 ; DDD (degenerative disc disease), lumbar M51.36 ; Cervical spondylosis M47.812 and termite renewal inspector use of drug Z79.899 [facility] [address] [place] [address] [address] [place] [address] 01/11/2024 Lissettetelma Colby Cervical spine pain M54.2 ; Cervical spondylosis M47.812 ; DDD (degenerative disc disease), lumbar M51.36 ; Low back pain M54.50 ; Left knee pain M25.562 and USP use of drug Z79.899 [facility] [address] [place] [address] [address] [place] [address] 02/26/2024 Lissettetelma Colby Cervical spondylosis M47.812 ; Cervical spine pain M54.2 ; Low back pain M54.50 ; On termite treater drug therapy Z79.899 and Screening for substance abuse Z13.89 [facility] [address] [place] [address] [address] [place] [address] 03/25/2024 Sussy Issa Cervical spondylosis M47.812 ; Cervical spine pain M54.2 ; Low back pain M54.50 and USP use of drug Z79.899 [facility] [address] [place] [address] [address] [place] [address] 04/25/2024 Lissette Colby Cervical spondylosis M47.812 ; Cervical spine pain M54.2 ; Low back pain M54.50 and USP use of drug Z79.899 [facility] [address] [place] [address] [address] [place] [address] 05/09/2024 Lissette Colby Cervical spine pain M54.2 ; Cervical spondylosis M47.812 and On termite treater drug therapy Z79.899 [facility] [address] [place] [address] [address] [place] [address] 06/18/2024 Lissette Colby Cervical spondylosis M47.812 ; Cervical spine pain M54.2 and USP use of drug Z79.899 [facility] [address] [place] [address] [address] [place] [address] 07/16/2024 Lissette Colby Cervical spine pain M54.2 ; Low back pain M54.50 ; Cervical spondylosis M47.812 and termite renewal inspector use of drug Z79.899 [facility] [address] [place] [address] 11/21/2023 Nidhi Mayelin [facility] [address] [place] [address] 11/27/2023 Nidhi Mayelin [facility] [address] [place] [address] 12/26/2023 Nidhi Mayelin [facility] [address] [place] [address] 01/11/2024 Nidhi Mayelin [facility] [address] [place] [address] 01/25/2024 Johnathon Solnberg [facility] [address] [place] [address] 02/26/2024 Nidhi Mayelin [facility] [address] [place] [address] 03/25/2024 Nidhi Mayelin [facility] [address] [place] [address] 04/25/2024 Nidhi Mayelin [facility] [address] [place] [address] 05/09/2024 Nidhi Mayelin [facility] [address] [place] [address] 06/18/2024 Nidhi Mayelin [facility] [address] [place] [address] 07/16/2024 Nidhi Mayelin [facility] [address] [place] [address] 08/20/2024 Nidhi Dick Assessments Encounter Date Diagnosis (ICD Code) Assessment Notes Treatment Notes Treatment Clinical Notes Section Notes 12/26/2023 Cervical spine pain (ICD-10 - M54.2) Refill for controlled substance sent to supervising physician to be filledContinue home stretching and at home exercise program as toleratedFollow-up in one month for med check, sooner if needed 12/26/2023 DDD (degenerative disc disease), lumbar (ICD-10 - M51.36) 01/11/2024 Cervical spine pain (ICD-10 - M54.2) Refill for controlled substance sent to supervising physician to be filled Continue home stretching and at home exercise program as tolerated Follow-up in one month for med check, sooner if needed 01/11/2024 Cervical spondylosis (ICD-10 - M47.812) 11/21/2023 Cervical spine pain (ICD-10 - M54.2) Refill for controlled substance sent to supervising physician to be filledContinue home stretching and at home exercise program as toleratedFollow-up in one month for med check, sooner if needed 11/21/2023 DDD (degenerative disc disease), lumbar (ICD-10 - M51.36) 02/26/2024 Cervical spondylosis (ICD-10 - M47.812) 03/25/2024 Cervical spondylosis (ICD-10 - M47.812) Prescription for controlled substance sent to supervising physician for renewal 03/25/2024 Cervical spine pain (ICD-10 - M54.2) 04/25/2024 Cervical spondylosis (ICD-10 - M47.812) Refill for controlled substance sent to supervising physician to be filled Continue home stretching and at home exercise program as tolerated Follow-up in one month for med check, sooner if needed 02/26/2024 Cervical spine pain (ICD-10 - M54.2) Refill for controlled substance sent to supervising physician to be filled Continue home stretching and at home exercise program as tolerated Follow-up in one month for med check, sooner if needed 06/18/2024 Cervical spondylosis (ICD-10 - M47.812) Refill for controlled substance sent to supervising physician to be filled Continue home stretching and at home exercise program as tolerated Follow-up in one month for med check, sooner if needed 06/18/2024 Cervical spine pain (ICD-10 - M54.2) 07/16/2024 Cervical spine pain (ICD-10 - M54.2) Refill for controlled substance sent to supervising physician to be filled Continue home stretching and at home exercise program as tolerated Follow-up in one month for med check, sooner if needed 07/16/2024 Low back pain (ICD-10 - M54.50) 08/20/2024 Cervical spondylosis (ICD-10 - M47.812) Refill for controlled substance sent to supervising physician to be filled Refill of tizanidine sent to [facility] Continue home stretching and at home exercise program as tolerated Follow-up in one month for med check, sooner if needed 05/09/2024 Cervical spine pain (ICD-10 - M54.2) Refill for controlled substance sent to supervising physician to be filled Continue home stretching and at home exercise program as tolerated Follow-up in one month for med check, sooner if needed 05/09/2024 Cervical spondylosis (ICD-10 - M47.812) 05/09/2024 On termite treater drug therapy (ICD-10 - Z79.899) 08/20/2024 Cervical spine pain (ICD-10 - M54.2) 07/16/2024 Cervical spondylosis (ICD-10 - M47.812) 06/18/2024 termite renewal inspector use of drug (ICD-10 - Z79.899) 02/26/2024 Low back pain (ICD-10 - M54.50) 04/25/2024 Cervical spine pain (ICD-10 - M54.2) 03/25/2024 Low back pain (ICD-10 - M54.50) 11/21/2023 USP use of drug (ICD-10 - Z79.899) 01/11/2024 DDD (degenerative disc disease), lumbar (ICD-10 - M51.36) 12/26/2023 Cervical spondylosis (ICD-10 - M47.812) 12/26/2023 USP use of drug (ICD-10 - Z79.899) 01/11/2024 Low back pain (ICD-10 - M54.50) 02/26/2024 On termite treater drug therapy (ICD-10 - Z79.899) 03/25/2024 USP use of drug (ICD-10 - Z79.899) 04/25/2024 Low back pain (ICD-10 - M54.50) 07/16/2024 termite renewal inspector use of drug (ICD-10 - Z79.899) 08/20/2024 Low back pain (ICD-10 - M54.50) 08/20/2024 USP use of drug (ICD-10 - Z79.899) 04/25/2024 termite renewal inspector use of drug (ICD-10 - Z79.899) 02/26/2024 Screening for substance abuse (ICD-10 - Z13.89) 01/11/2024 Left knee pain (ICD-10 - M25.562) 01/11/2024 USP use of drug (ICD-10 - Z79.899) 08/20/2024 Other High Blood Pressure: Care Instructions material was published 01/11/2024 Other Body Mass Index : Care Instructions material was published 02/26/2024 Other Body Mass Index : Care Instructions material was published, High Blood Pressure: Care Instructions material was published 04/25/2024 Other Body Mass Index : Care Instructions material was published, High Blood Pressure: Care Instructions material was published 06/18/2024 Other High Blood Pressure: Care Instructions material was published Plan Of Treatment Pending Test Test Name Order Date EtS (Alcohol Metabolite) - Urine 024 EtS (Alcohol Metabolite) - Urine 025 QMP Plus D/L - Urine 06/18/2024 QMP Plus D/L - Urine 02/26/2024 Synthetic Stimulants 06/18/2024 Synthetic Stimulants 02/26/2024 Code Official Benzodiazepines 02/26/2024 Code Official Benzodiazepines 06/18/2024 Synthetic Cannabinoids 06/18/2024 Synthetic Cannabinoids 02/26/2024 Code Official Opioids 02/26/2024 Code Official Opioids 06/18/2024 Hallucinogens/Dissociatives 02/26/2024 Hallucinogens/Dissociatives 06/18/2024 PAYMENT SPECIALIST Other 06/18/2024 PAYMENT SPECIALIST Other 02/26/2024 Marijuana - Urine 02/26/2024 Marijuana - Urine 06/18/2024 [facility] Medication Compliance - Urine 1 04/27/2023 [facility] Medication Compliance - Urine 0 06/18/2024 [employer] Required Information 06/18/2024 [facility] Required Information 02/26/2024 [facility] Labs Healthcare Profile 06/18/2024 Insurance Providers Payer Name Payer Address Payer Phone Subscriber Number Group Number Insured Name Patient Relationship to Insured Coverage Start Date Coverage End Date [facility] [address] [place] [address] [id number] Susannah Camargo Self - patient is the insured Medical (General) History Medical History History ICD Code hyperlipidemia hypertension Atrial fibrillation Surgical History Surgery Date(Month/Year) B TKR B THR oophorectomy gastric sleeve 03/2020 Hospitalization History Reason Date(Month/Year) no hospitalizations since prior visit
--- OUTSIDE RECORDS SUMMARY | 2024-08-26 15:15 | XMS_ITS | Clinical Summary ---
Author Organization [facility] Address [address] [place] [address] Care Team Providers Care Lawn Mower Sharpener Name Role Phone Linette Yepez MD Primary [...] 06/21/2022 Assessment & Plan (06/21/2022 7:25 PM STRATEGIC BUSINESS DEVELOPMENT): Worsening after of her mother in 04/2022. Feels more anxiety than depression. Admits panic attacks. Reluctant to start daily medication, don't want to feel trapped into taking medicine. Will Rx BuSpar as directed. Encouraged relaxation techniques such as deep breathing and guided imagery. Keep follow as scheduled, sooner if needed. Diarrhea 06/20/2022 Assessment & Plan (06/21/2022 7:16 PM STRATEGIC BUSINESS DEVELOPMENT): Ongoing for approximately 1 week after finishing a course of cefdinir for UTI. No more urinary symptoms or abdominal pain. No acute findings on exam. Will order CDiff test. Advised on Bowel rest: push fluids, bland high fiber diet. Continue immodium if needed. Vulvovaginitis 06/20/2022 Assessment & Plan (06/21/2022 7:17 PM STRATEGIC BUSINESS DEVELOPMENT): S/p cefdinir course for UTI. Denies discharge or genital lesions. exam deferred per pt request. Rxd Diflucan as directed. Use mild non-fragrant soaps/lotions. Recurrent UTI 06/08/2022 Assessment & Plan (06/08/2022 2:35 PM STRATEGIC BUSINESS DEVELOPMENT): Currently on Abx for treatment. Patient to [...] 12/23/2021 Assessment & Plan (06/21/2022 7:12 PM STRATEGIC BUSINESS DEVELOPMENT): BP stable in office today on current therapy. Continue current regimen and low salt diet. Stay hydrated. Assessment & Plan (06/08/2022 2:36 PM STRATEGIC BUSINESS DEVELOPMENT): Chronic and mildly elevated. Goal < 130/80. [...] 12/23/2021 Assessment & Plan (06/08/2022 2:35 PM STRATEGIC BUSINESS DEVELOPMENT): Chronic and stable. 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 with windows consultant Assessment & Plan (12/23/2021 12:10 PM CDT): [...] Type Department Care Team Description 05/31/2024 Telephone [facility] Cardiology [address] [place] [phone] Onesimo George MD from Last 3 [...] materials from doctor or pharmacy Never 04/11/2023 [facility] Utilities Answer Date Recorded In the past 12 months has th e [employer], gas, oil, or water [employer] threatened to shut off services in your [...] often do you attend chur ch or denominational services? Never 02/27/2023 Do you belong to any clubs o r organizations such as adventist groups, unions, fraternal or athletic groups, or [...] place to sleep or slept in a usp (including now)? No 02/27/2023 Personal Safety Answer Date Recorded Have you ever been in or are you currently in a harmful physical or emotional relationship or is someone making you feel afraid or unsafe? Denies 02/25/2023 Comments No Sex and Gender Information Value Date Recorded Sex Assigned at Not on file Legal Sex Female 6:30 PM STRATEGIC BUSINESS DEVELOPMENT Gender Identity Not on file Sexual Orientation Not on file Obstetrics History Last Filed Vital Signs Vital Sign Reading Time Taken Comments Blood Pressure 118/70 09/19/2023 10:02 AM CDT Pulse 56 09/19/2023 10:02 AM CDT Temperature 36.2 C (97.2 F) 04/11/2023 12:53 PM STRATEGIC BUSINESS DEVELOPMENT Respiratory Rate 14 09/19/2023 10:02 AM CDT Oxygen Saturation 97% 05/22/2023 1:37 PM STRATEGIC BUSINESS DEVELOPMENT Inhaled Oxygen Concentration - - Weight 69.4 [...] 015 Covid-19 Vaccine ( season) 2023, 05/22/2020 Depression Screening 02/26/2024 02/25/2023, 11/06/2022, 12/17/2021 DTaP/Tdap/Td Vaccine (2 - Td or Tdap) 03/19/202406/2013 Fall Risk Assessment 09/18/2024 09/19/2023, 02/28/2023, 05/03/2021 Influenza Vaccine (Season Ended) 2024 01/16/20 15, 02/21/2009 Insurance [facility] Address: [address] [address] [place] [address] MEDICARE ADVANTAGE [facility] Address: [address] [address] [place] [address] [facility] MEDICARE ADVANTAGE [facility] Address: [id number] [place] [address] Advance Directives For more information, please contact: [phone] * Full Code (Latest Code Status on File) Date Activated Date Inactivated Comments 02/25/2023 1:22 PM 02/28/2023 7:54 PM * Full Code Date Activated Date Inactivated Comments 11/07/2022 2:00 AM 11/08/2022 7:29 PM Care Teams Lawn Mower Sharpener Relationship Specialty Start Date End Date Linette Yepez MD [address] [facility] [address] [place] [address] PCP - General Family Medicine 11/06/22
[2024-08-26 22:11] LABS: Hepatitis B Surface Antigen Negative (Negative)
[2024-08-26 22:16] LABS: HAV RESULT Negative (Negative); Hepatitis B Core IgM Result Negative (Negative)
[2024-08-26 22:28] LABS: Hepatitis C Virus Antibody Negative (Negative)
== END 2024-08-26 15:11 | disposition home or self-care (01) ==
PROVIDERS: PCP Family Medicine; Visit Provider Physician Assistant
DX: R10.9 Unspecified abdominal pain (principal); R79.89 Other specified abnormal findings of blood chemistry
CPT/HCPCS: 36415; 80074

== ENCOUNTER 2024-08-28 12:46 | Outpatient (CLI) | payer MEDICARE, SELFPAY ==
--- NOTE | ~2024-08-28 | CT_ITS ---
CT of the Abdomen and Pelvis: Indication: Abdominal pain Technique: 2.5 mm axial scans were obtained through the abdomen and pelvis following intravenous adm inistration of 100 cc of Omnipaque 350. Dose reduction technique was used on this scan by utilizing a utomated exposure control and iterative reconstruction technique. The dose-length product (DLP) was 3 49.59 mGy-cm. Findings: Scans through the lung bases are unremarkable. There is a somewhat ill-defined hypodense mass at the pancreatic head region measuring approximately 2.8 x 1.8 cm in transverse dimensions. There is associated intrahepatic and extrahepatic biliary dila tation to level of the mass. Possible extension/encasement of the proximal SMA. There is dilatation t he main pancreatic duct at the pancreatic neck, body, and tail, distal to the mass. Gallbladder is di stended. No parenchymal mass of the liver clearly identified. The spleen, adrenals and kidneys are wi thin normal limits. No evidence of aortic aneurysm. No lymphadenopathy. There is extensive wall thickening of the distal descending colon, sigmoid colon, and rectum. No jose juan l obstruction. Moderate abdominopelvic ascites present with diffuse mesenteric edema. Images through the pelvis are degraded by streak artifact from bilateral hip arthroplasty. Urinary bl adder poorly visualized. No definite pelvic mass seen. Impression: 2.8 x 1.8 cm hypodense mass at the pancreatic head region is highly suspicious for pancreatic adenoca rcinoma, with associated double duct sign. Please see details above. No definite evidence for distant metastatic disease, but there may be local extension about the SMA.. Wall thickening of the descending colon, sigmoid colon, and rectum. Correlate for infectious/inflamma tory colitis versus reactive wall thickening due to the presence of moderate ascites. Reviewed, dictated and finalized at [facility]. Impression: 2.8 x 1.8 cm hypodense mass at the pancreatic head region is highly suspicious for pancreatic adenocarcinoma, with associated double duct sign. Please see det ails above. No definite evidence for distant metastatic disease, but there may be local ext ension about the SMA.. Wall thickening of the descending colon, sigmoid colon, and rectum. Correlate f or infectious/inflammatory colitis versus reactive wall thickening due to the p resence of moderate ascites.
--- OUTSIDE RECORDS SUMMARY | 2024-08-28 12:55 | XMS_ITS ---
Author Organization [facility] Address [address] [place] [address] [address] [place] [address] Care Team Providers Care Blind Cleaner Name Role Phone Linette Yepez MD Primary Care Provider Francie Nidhi Alejandre [phone] Medications Medication SIG (Take, Route, Frequency, Duration) Notes Start Date End Date Status traMADol HCl 50 MG Take 1 tablet Oral three times per day for 30 days Do not fill until 08/23/24 08/20/2024 Active Belbuca 600 MCG 1 film Bucally every 12 hrs for 30 days Do not fill until 08/23/24 08/20/2024 Active Encounters Encounter Location Date Provider Diagnosis [facility] [address] [place] [phone] 08/20/2024 Nidhi Dick Plan Of Treatment Medication [...] Susannah GONCALVES ADOB:[birth year] (73 yo F)Acc No.[id number]:08/20/2024 Patient: Susannah JOHN :1950 A ge:73 Y S ex:Female Address:[address] [place] [address], [phone] * Refills Refill Belbuca Film, 600 MCG, Bucally, 60, 1 film, every 12 hrs, 30 days, Refills=0 Refill traMADol HCl Tablet, 50 MG, Oral, 90, Take 1 tablet, three times per day, 30 days, Refills=0 * true * Date: Generated for Charles [place]/Lucila on: 0 08/28/2024 12:55 PM CDT
--- OUTSIDE RECORDS SUMMARY | 2024-08-28 12:55 | XMS_ITS | Clinical Summary ---
Author Organization [facility] Address [address] [place] [address] Care Team Providers Care Follow Up Rep Name Role Phone Linette Yepez MD Primary [...] 06/21/2022 Assessment & Plan (06/21/2022 7:25 PM ACCOUNTS OFFICER): Worsening after of her mother in 04/2022. Feels more anxiety than depression. Admits panic attacks. Reluctant to start daily medication, don't want to feel trapped into taking medicine. Will Rx BuSpar as directed. Encouraged relaxation techniques such as deep breathing and guided imagery. Keep follow as scheduled, sooner if needed. Diarrhea 06/20/2022 Assessment & Plan (06/21/2022 7:16 PM ACCOUNTS OFFICER): Ongoing for approximately 1 week after finishing a course of cefdinir for UTI. No more urinary symptoms or abdominal pain. No acute findings on exam. Will order CDiff test. Advised on Bowel rest: push fluids, bland high fiber diet. Continue immodium if needed. Vulvovaginitis 06/20/2022 Assessment & Plan (06/21/2022 7:17 PM ACCOUNTS OFFICER): S/p cefdinir course for UTI. Denies discharge or genital lesions. exam deferred per pt request. Rxd Diflucan as directed. Use mild non-fragrant soaps/lotions. Recurrent UTI 06/08/2022 Assessment & Plan (06/08/2022 2:35 PM ACCOUNTS OFFICER): Currently on Abx for treatment. Patient to [...] 12/23/2021 Assessment & Plan (06/21/2022 7:12 PM ACCOUNTS OFFICER): BP stable in office today on current therapy. Continue current regimen and low salt diet. Stay hydrated. Assessment & Plan (06/08/2022 2:36 PM ACCOUNTS OFFICER): Chronic and mildly elevated. Goal < 130/80. [...] 12/23/2021 Assessment & Plan (06/08/2022 2:35 PM ACCOUNTS OFFICER): Chronic and stable. 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 Never 02/27/2023 Do you belong to any clubs o r organizations such as jain groups, unions, fraternal or athletic groups, or [...] place to sleep or slept in a fpc (including now)? No 02/27/2023 Personal Safety Answer Date Recorded Have you ever been in or are you currently in a harmful physical or emotional relationship or is someone making you feel afraid or unsafe? Denies 02/25/2023 Comments No Sex and Gender Information Value Date Recorded Sex Assigned at Not on file Legal Sex Female 6:30 PM ACCOUNTS OFFICER Gender Identity Not on file Sexual Orientation Not on file Obstetrics History Last Filed Vital Signs Vital Sign Reading Time Taken Comments Blood Pressure 118/70 09/19/2023 10:02 AM CDT Pulse 56 09/19/2023 10:02 AM CDT Temperature 36.2 C (97.2 F) 04/11/2023 12:53 PM ACCOUNTS OFFICER Respiratory Rate 14 09/19/2023 10:02 AM CDT Oxygen Saturation 97% 05/22/2023 1:37 PM ACCOUNTS OFFICER Inhaled Oxygen Concentration - - Weight 69.4 [...] (Season Ended) 2024 01/16/20 15, 02/21/2009 Insurance MEDICARE ADVANTAGE [facility] MEDICARE ADVANTAGE Advance Directives For more information, please contact: [phone] * Full Code (Latest Code Status on File) Date Activated Date Inactivated Comments 02/25/2023 1:22 PM 02/28/2023 7:54 PM * Full Code Date Activated Date Inactivated Comments 11/07/2022 2:00 AM 11/08/2022 7:29 PM Care Teams Follow Up Rep Relationship Specialty Start Date End Date Linette Yepez MD [address] [facility] [address] [facility] [address] [place] [address] PCP - General Family Medicine 11/06/22
--- OUTSIDE RECORDS SUMMARY | 2024-08-28 12:55 | XMS_ITS | Clinical Summary ---
Author Organization [facility] Address [address] [place] [address] Phone Care Team Providers Care Gasoline Plant Operator Name Role Phone Linette Yepez MD Primary Care Provider [phone] Allergies Active Allergy Reactions Criticality Noted Date [...] 90 mL 360 mL 04/14/2020 2:38 PM CLOTH FINISHING RANGE BACK TENDER 0 Active ondansetron (Zofran ODT) 8 mg Tablet, Rapid Dissolve Dissolve 1 Tablet (8 mg) by mouth every 8 hours as needed for nausea or vomiting. 20 Tablet 2 04/14/2020 2:38 PM CLOTH FINISHING RANGE BACK TENDER 0 Active Active Problems Problem Noted Date [...] Comments Blood Pressure 168/83 04/14/2020 7:59 AM CLOTH FINISHING RANGE BACK TENDER Pulse 61 04/14/2020 7:59 AM CLOTH FINISHING RANGE BACK TENDER Temperature 36.8 C (98.2 F) 04/14/2020 7:59 AM CLOTH FINISHING RANGE BACK TENDER Respiratory Rate 18 04/14/2020 7:59 AM CLOTH FINISHING RANGE BACK TENDER Oxygen Saturation 98% 04/14/2020 7:59 AM CLOTH FINISHING RANGE BACK TENDER Inhaled Oxygen Concentration - - Weight 108.2 kg (238 lb 9.6 oz) 04/13/2020 7:05 AM CLOTH FINISHING RANGE BACK TENDER Height 160 cm (5' 3 ) 04/13/2020 7:05 AM CLOTH FINISHING RANGE BACK TENDER Body Mass Index 42.27 04/13/2020 7:05 AM CLOTH FINISHING RANGE BACK TENDER Plan of Treatment Health Maintenance Due Date [...] Tdap) 03/19/2024 Medical Devices Implanted Type Area Muck Miner Device Identifier Shelf Expiration Date Model / Serial / Lot Seamguard Endogia 60 [id number] [id number] - [id number] Implanted:Qty : 2 on 04/13/2020 by Hong Bryant MD at [facility] N/A: Abdomen [employer] 12/02/2022 [id number] / / [id number] Seamguard Endogia 60 Blk [id number] - [id number] Implanted:Qty : 1 on 04/13/2020 by Hong Bryant MD at [facility] N/A: Abdomen [employer] 08/19/2022 [id number] / / [id number] Insurance RX [employer] RX Member Subscriber Plan / Payer (Ef fective 2016-Present) Name:Raman Susannah A Relation to Subscriber:Self Name:Raman Susannah A Payer ID:Not on file Group ID:[id number] Type:RX Medicare Part D Address: [address] Advance Directives For more information, please contact: [phone] * Full Code (Latest Code Status on File) Date Activated Date Inactivated Comments 04/13/2020 1:09 PM 04/14/2020 5:55 PM Care Teams Gasoline Plant Operator Relationship Specialty Start Date End Date Linette Yepez MD PCP - General Family Practice 04/01/20
--- OUTSIDE RECORDS SUMMARY | 2024-08-28 12:55 | XMS_ITS | Clinical Summary ---
Author Organization [facility] Address [address] [place] [address] Care Team Providers Care Manufacturing Plant Technician Name Role Phone Aury Joseph RN Unavailable Dar Stinson MD Unavailable [phone] Linette Yepez MD Primary Care Provider + Source Comments [facility],non-owned Affiliates and Associated Physician Practices is amultiple site organization consisting of ambulatory clinics and hospital sitesin [place], [place], [place] and [place]. This disclosure is being madepursuant to the Care Everywhere program and may not contain all information available regarding this patient. 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 [employer] Not on file Not on file Not on file Last Filed Vital Signs Vital Sign Reading Time Taken Comments Blood Pressure 106/74 06/16/2021 10:41 AM PLYWOOD PATCHER Pulse 60 06/16/2021 10:41 AM PLYWOOD PATCHER Temperature 36.2 C (97.2 F) 06/16/2021 10:41 AM PLYWOOD PATCHER Respiratory Rate 20 06/16/2021 10:41 AM PLYWOOD PATCHER Oxygen Saturation 97% 06/16/2021 10:41 AM PLYWOOD PATCHER Inhaled Oxygen Concentration - - Weight 72.6 kg (160 lb) 06/16/2021 10:41 AM PLYWOOD PATCHER Height 160 cm (5' 3 ) 06/16/2021 10:41 AM PLYWOOD PATCHER Body Mass Index 28.34 06/16/2021 10:41 AM PLYWOOD PATCHER Plan of Treatment Health Maintenance Due Date Last Done Comments BONE DENSITY TESTING 1950 COLOGUARD (AGES 45-75) - COLON CA SCREENING [address] COLONOGRAPHY - COLON CA SCREENING 1950 FIT - COLON CA SCREENING 1950 FLEX SIG - COLON CA SCREENING 1950 PNEUMOCOCCAL VACCINE 50+ (1 of 1 - PCV) 12/26/1999 ZOSTER VACCINE (1 of 2) 12/26/1999 COLONOSCOPY - COLON CA SCREENING 04/17/2015 04/17/2005 (Previously completed) Colorectal Cancer Screening 04/17/2015 MAMMOGRAM 09/09/2016 09/09/2014, 08/05/2008 COVID-19 VACCINE ( season) 2023 06/12/2020, 05/22/2020 DTAP/TDAP/TD VACCINES (2 - Td or Tdap) 03/19/2024 03/19/2014 DEPRESSION SCREENING 04/17/2024 MEDICARE AWV CALENDAR YEAR 2024 INFLUENZA VACCINE (Season Ended) 2024 01/15/2015, 02/21/2009 Respiratory Syncytial Virus (RSV) Vaccine Pt: or over 60 yrs (1 - 1-dose 75+ series) 2024 LIPID TESTING 11/08/2027 11/07/2022, 04/17, 11/20/2019, Additional [...] < 140/90 Blood Pressure 106/74(2021 10:41 AM PLYWOOD PATCHER) Nae Montanez MA Medical Devices Implanted Type Area Gas Torch Brazier Device Identifier Shelf Expiration Date Model / Serial / Lot Shell Coat 3hole 54mm Implanted:Qty: 1 on 11/21/2013 by Francis Cortes MD at [facility] Right: Hip [employer] 08/16/2023 [id number] / / [id number] Linr Acetab Refl Xlpe 0deg 36mm X 54mm Implanted:Qty: 1 on 11/21/2013 by Francis Cortes MD at [facility] Right: Hip [employer] 10/15/2023 [id number] / / [id number] Spherical Head Screw 6.5mm Cancellous Implanted:Qty: 1 on 11/21/2013 by Francis Cortes MD at [facility] Right: Hip [employer] 05/17/2023 [id number] / / [id number] Standard Offset Fixed Neck Stikitite Coated Stem Feoral Coponent Implanted:Qty: 1 on 11/21/2013 by Francis Cortes MD at [facility] Right: Hip [employer] 06/14/2023 [id number] / / [id number] 03/30 Taper Femoral Head Implanted:Qty: 1 on 11/21/2013 by Francis Cortes MD at [facility] Right: Hip [employer] 12/14/2022 [id number] / / [id number] Bill Only H1 Uncem Metal Or Ceramic Implanted:Qty: 1 on 11/21/2013 by Francis Cortes MD at [facility] [employer] H1 BILL ONLY [...] 1:06 PM CDT Narrative Resulting Agency Comment [facility] [address] [facility] [id number] Feliciano Oliver MD LAB - CHEMISTRY ORDERABLES Fin al Result [facility] ACCOUNT BILL [address] [place] [address] * MAMMO SCREENING DIGITAL IMAGE BILAT (09/09/2014 5:05 PM CDT) Anatomical Region Laterality Modality Breast Bilateral Mammography 09/10/2014 5:08 PM CDT Impressions 09/10/2014 5:09 PM CDT No mammographic evidence of malignancy in either breast. ASSESSMENT: BIRADS Category 1: Negative. RECOMMENDATION: Bilateral screening mammogram in one year. Thank you for allowing us to participate in the care of your patient. [facility] [place] utilizes [employer] as a reminder system to notify patients of their next recommended mammogram. Narrative 09/10/2014 5:09 PM CDT EXAMINATION: Digital screening mammogram on 09/09/2014. Computer assisted detection was utilized. PRIOR: Mammogram from [facility] in 09/28/2006. FINDINGS: Breast parenchymal [...] offers HCV Ab w/Reflex to Verification test #[id number]. Blood specimen (specimen) BLOOD SPECIMEN / Unknown 08/09/2013 8:53 AM CDT 08/09/2013 12:57 PM CDT Narrative Resulting Agency Comment [facility] [address] [facility] [id number] Feliciano Oliver MD LAB - CHEMISTRY ORDERABLES Fin al Result [facility] ACCOUNT BILL [address] [place] [address] from Last 3 Months or Most Recently Relevant to Health Maintenance Insurance MANAGED MEDICARE ADV MANAGED MEDICARE ADV Advance Directives * Full Code (Latest Code Status on File) Date Activated Date Inactivated Comments 11/21/2013 12:38 PM 11/24/2013 6:31 PM * Full Code Date Activated Date Inactivated Comments 02/18/2009 10:26 AM 02/22/2009 1:32 AM Care Teams Manufacturing Plant Technician Relationship Specialty Start Date End Date Linette Yepez MD [address] [place] [address] PCP - General Family Medicine 01/09/20 Aury Joseph, RN Ged Preparation Teacher 11/22/13 [place] [address] [address] Orthopedic Surgery 12/27/13
--- OUTSIDE RECORDS SUMMARY | 2024-08-28 12:55 | XMS_ITS | Patient Health Record ---
Author Organization [facility] Address [address] [facility] [address] [place] [address] Care Team Providers Care Surveillance Specialist Name Role Phone Lucho BROWN, Linette Primary Care Provider Francie Nidhi Alejandre Unavailable [phone] Maegan POPE, Sussy Unavailable Lissette Colby Unavailable [phone] Johnathon Dick Unavailable [phone] Allergies No Known Allergies Results Component Value Reference Range Notes [employer] [facility] Profil e (Not yet reviewed by provider) Interpretation: Performing Lab:[facility] (CLIA#: [id number]), [address] [place] [address], Director - Adelina Jensen Notes/Report: These tests were developed and their performance characteristics determined by [facility]. They have not been cleared or approved by the US Food and Drug Administration. Certifying Wood Handler: Shalom Nicholson (Remote [phone]) Analyzed at [facility] (CLIA#: [id number]) - [address] [place] [address] - Structural Layout Worker: Adelina Ontiveros Cital+Escital Ur CMP >58097 >=50 ng/mL COMPLIA NT: Test result is [...] expected with prescribed drug. Tramadol Ur CMP >68529 >=100 ng/mL COMPLIANT: T est result is consistent and expected with prescribed drug. Pregabalin Ur CMP <5 >=5 mcg/mL NON-COMPLI ANT: Test result indicates patient may not be taking drug prescribed. Ethyl Sulfate Ur CMP 48908 >=200 ng/mL PRESENT : Test result is consistent with alcohol exposure within 72 hours of specimen collection. For additional information, please consult the Clinical Team at or email [email or web address] [employer] EXPECTED Test result is consistent with [...] >=100 ng/mL POSI TIVE Tramadol Ur Cfm-mCnc >39938 >=100 ng/mL POSITIV E N-Desmethyl Tram Ur Cfm-mCnc >05148 >=100 ng/mL POSITIVE Creat Ur-mCnc 275.9 20 - 370 mg/dL NORMAL Creatinine and pH are performed for specimen validity and not diagnostic purposes. pH Ur 6.04 4.5 - 9.0 NORMAL Creatinine and pH are performed for specimen validity and not diagnostic purposes. Alcohol Metabolites Ur Ql Cfm >=200 >=200 ng/mL POSITIVE Ethyl sulfate Ur Cfm-mCnc 04367 >=200 ng/mL PO SITIVE Busprione Ur Ql Cfm <25 >=25 ng/mL NONE DET ECTED SSRI Profile Ur Ql Cfm >=50 >=50 ng/mL POSIT NILSA Citalopram Ur Cfm-mCnc >90479 >=50 ng/mL POSIT NILSA Norcitalopram Ur-mCnc >53585 >=50 ng/mL POSITI VE SN Reuptake Inhibitors Ur Ql <5 >=5 ng/mL NONE DETECTED Synthetic Stimulants Ur Ql Cfm <1 >=1 ng/mL NONE DETECTED SALESPERSON ART OBJECTS Not Otherwise Specified Ur Ql Cfm <1 >=1 ng/mL NONE DETECTED Synthetic Cannabinoids Ur Ql Cfm <1 >=1 ng/m L NONE DETECTED Hallucinogens/Dissociatives Ur Ql Cfm <1 >=1 ng/mL NONE DETECTED Dimension Specification Inspector Benzodiazepines Ur Ql Cfm <1 >=1 ng/mL NONE DETECTED Dimension Specification Inspector Opioids Ur Ql Cfm <1 >=1 ng/mL N ONE DETECTED THC Ur Ql Scn <20 >=20 ng/mL NONE DETECTED Interse Profil e Reviewed date:03/04/2024 07:46:44 AM Interpretation: Performing Lab:[facility] (CLIA#: [id number]), [address] [place] [address], Director - Adelina Jensen Notes/Report: Certifying Wood Handler: Nicolas Carlson (Remote [id number]) These tests were developed and their performance characteristics determined by [facility]. They have not been cleared or approved by the US Food and Drug Administration. Analyzed at [facility] (CLIA#: [id number]) - [address] [place] [address] - Structural Layout Worker: Adelina Ontiveros Cital+Escital Ur CMP >87883 >=50 ng/mL COMPLIA NT: Test result is [...] form, was detected. Ethyl Sulfate Ur CMP 56117 >=200 ng/mL PRESENT : Test result is consistent with alcohol exposure within 72 hours of specimen collection. For additional information, please consult the Clinical Team at or email [email or web address] [employer] EXPECTED Test result is consistent with [...] >=200 ng/mL POSITIVE Ethyl sulfate Ur Cfm-mCnc 14927 >=200 ng/mL PO SITIVE Busprione Ur Ql Cfm <25 >=25 ng/mL NONE DET ECTED Tizanidine Ur Ql Cfm >=25 >=25 ng/mL POSITIV E Tizanidine Ur Cfm-mCnc 157 >=25 ng/mL POSIT NILSA Dehydrotizanidine Ur Cfm-mCnc 17 >=5 ng/mL POSITIVE SSRI Profile Ur Ql Cfm >=50 >=50 ng/mL POSIT NILSA Norcitalopram Ur-mCnc >52213 >=50 ng/mL POSITI VE Synthetic Stimulants Ur Ql Cfm <1 >=1 ng/mL NONE DETECTED SALESPERSON ART OBJECTS Not Otherwise Specified Ur Ql Cfm <1 >=1 ng/mL NONE DETECTED Synthetic Cannabinoids Ur Ql Cfm <1 >=1 ng/m L NONE DETECTED Hallucinogens/Dissociatives Ur Ql Cfm <1 >=1 ng/mL NONE DETECTED Dimension Specification Inspector Benzodiazepines Ur Ql Cfm <1 >=1 ng/mL NONE DETECTED Dimension Specification Inspector Opioids Ur Ql Cfm <1 >=1 ng/mL [...] W/U Status Risk Notes Problem Cervical spondylosis (201237140) Cervical spondylosis (M47.812) Active confirmed Problem Long-term current use of drug therapy (774855925) loss prevention/safety district manager use of drug (Z79.899) Active confirmed Problem Neck pain (73289406) Cervical spine pain (M54.2) Active confirmed Problem Hypertension (24550074) Hypertension (I10) 0 Active confirmed Problem Low back pain (843674678) Low back pain (M54.50) Active confirmed Vital Signs Heart Rate 61 /min 08/20/2024 Height-cm 160.02 cm 08/20/2024 Blood pressure diastolic 89 mm Hg 08/20/2024 Weight-kg 63.05 kg 08/20/2024 Height 5ft 3in in 08/20/2024 Blood pressure systolic 142 mm Hg 08/20/2024 Weight 139 lbs 08/20/2024 BMI 24.62 kg/m2 08/20/2024 Encounters Encounter Location Date Provider Diagnosis [facility] [address] [place] [address] 09/05/2023 [facility] [address] [place] [address] 09/26/2023 [facility] [address] [place] [address] 10/12/2023 [facility] [address] [place] [address] 08/20/2024 Lissette Colby Cervical spondylosis M47.812 ; Cervical spine pain M54.2 ; Low back pain M54.50 and skilled nursing use of drug Z79.899 [facility] [address] [place] [address] [address] [place] [address] 11/21/2023 Lissette Colby Cervical spine pain M54.2 ; DDD (degenerative disc disease), lumbar M51.36 and skilled nursing use of drug Z79.899 [facility] [address] [place] [address] [address] [place] [address] 12/26/2023 Lissette Colby Cervical spine pain M54.2 ; DDD (degenerative disc disease), lumbar M51.36 ; Cervical spondylosis M47.812 and loss prevention/safety district manager use of drug Z79.899 [facility] [address] [place] [address] [address] [place] [address] 01/11/2024 Lissettetelma Colby Cervical spine pain M54.2 ; Cervical spondylosis M47.812 ; DDD (degenerative disc disease), lumbar M51.36 ; Low back pain M54.50 ; Left knee pain M25.562 and skilled nursing use of drug Z79.899 [facility] [address] [place] [address] [address] [place] [address] 02/26/2024 Lissettetelma Colby Cervical spondylosis M47.812 ; Cervical spine pain M54.2 ; Low back pain M54.50 ; On sheet fed printer drug therapy Z79.899 and Screening for substance abuse Z13.89 [facility] [address] [place] [address] [address] [place] [address] 03/25/2024 Sussy Issa Cervical spondylosis M47.812 ; Cervical spine pain M54.2 ; Low back pain M54.50 and skilled nursing use of drug Z79.899 [facility] [address] [place] [address] [address] [place] [address] 04/25/2024 Lissette Colby Cervical spondylosis M47.812 ; Cervical spine pain M54.2 ; Low back pain M54.50 and skilled nursing use of drug Z79.899 [facility] [address] [place] [address] [address] [place] [address] 05/09/2024 Lissette Colby Cervical spine pain M54.2 ; Cervical spondylosis M47.812 and On sheet fed printer drug therapy Z79.899 [facility] [address] [place] [address] [address] [place] [address] 06/18/2024 Lissette Colby Cervical spondylosis M47.812 ; Cervical spine pain M54.2 and skilled nursing use of drug Z79.899 [facility] [address] [place] [address] [address] [place] [address] 07/16/2024 Lissette Colby Cervical spine pain M54.2 ; Low back pain M54.50 ; Cervical spondylosis M47.812 and loss prevention/safety district manager use of drug Z79.899 [facility] [address] [place] [address] 11/21/2023 Nidhi Mayelin [facility] [address] [facility] [address] [place] [address] 11/27/2023 Nidhi Mayelin [facility] [address] [place] [address] 12/26/2023 Ndihi Mayelin [facility] [address] [facility] [address] [place] [address] 01/11/2024 Nidhi Mayelin [facility] [address] [facility] [address] [place] [address] 01/25/2024 Johnathon Solnberg [facility] [address] [facility] [address] [place] [address] 02/26/2024 Nidhi Mayelin [facility] [address] [place] [address] 03/25/2024 Nidhi Mayelin [facility] [address] [facility] [address] [place] [address] 04/25/2024 Nidhi Mayelin [facility] [address] [facility] [address] [place] [address] 05/09/2024 Nidhi Mayelin [facility] [address] [place] [address] 06/18/2024 Nidhi Mayelin [facility] [address] [place] [address] 07/16/2024 Nidhi Mayelin [facility] [address] [facility] [address] [place] [address] 08/20/2024 Nidhi Dick Assessments Encounter Date Diagnosis (ICD Code) Assessment Notes Treatment Notes Treatment Clinical Notes Section Notes 11/21/2023 DDD (degenerative disc disease), lumbar (ICD-10 - M51.36) 11/21/2023 Cervical spine pain (ICD-10 - M54.2) Refill for controlled substance sent to supervising physician to be filledContinue home stretching and at home exercise program as toleratedFollow-up in one month for med check, sooner if needed 12/26/2023 Cervical spine pain (ICD-10 - M54.2) Refill for controlled substance sent to supervising physician to be filledContinue home stretching and at home exercise program as toleratedFollow-up in one month for med check, sooner if needed 01/11/2024 Cervical spondylosis (ICD-10 - M47.812) 12/26/2023 DDD (degenerative disc disease), lumbar (ICD-10 - M51.36) 01/11/2024 Cervical spine pain (ICD-10 - M54.2) Refill for controlled substance sent to supervising physician to be filled Continue home stretching and at home exercise program as tolerated Follow-up in one month for med check, sooner if needed 02/26/2024 Cervical spondylosis (ICD-10 - M47.812) 02/26/2024 Cervical spine pain (ICD-10 - M54.2) Refill for controlled substance sent to supervising physician to be filled Continue home stretching and at home exercise program as tolerated Follow-up in one month for med check, sooner if needed 03/25/2024 Cervical spondylosis (ICD-10 - M47.812) Prescription [...] 05/09/2024 Cervical spondylosis (ICD-10 - M47.812) 05/09/2024 Cervical spine pain (ICD-10 - M54.2) [...] for med check, sooner if needed 07/16/2024 Cervical spine pain (ICD-10 - M54.2) [...] be filled Refill of tizanidine sent to [facility] Continue home stretching and at home exercise program as tolerated Follow-up in one month for med check, sooner if needed 06/18/2024 Cervical spine pain (ICD-10 - M54.2) 07/16/2024 Cervical spondylosis (ICD-10 - M47.812) 08/20/2024 Cervical spine pain (ICD-10 - M54.2) 06/18/2024 skilled nursing use of drug (ICD-10 - Z79.899) 05/09/2024 On retirement drug therapy (ICD-10 - Z79.899) 04/25/2024 Cervical spine pain (ICD-10 - M54.2) 03/25/2024 Low back pain (ICD-10 - M54.50) 02/26/2024 Low back pain (ICD-10 - M54.50) 01/11/2024 DDD (degenerative disc disease), lumbar (ICD-10 - M51.36) 12/26/2023 Cervical spondylosis (ICD-10 - M47.812) 11/21/2023 loss prevention/safety district manager use of drug (ICD-10 - Z79.899) 02/26/2024 On sheet fed printer drug therapy (ICD-10 - Z79.899) 12/26/2023 skilled nursing use of drug (ICD-10 - Z79.899) 03/25/2024 skilled nursing use of drug (ICD-10 - Z79.899) 04/25/2024 Low back pain (ICD-10 - M54.50) 08/20/2024 Low back pain (ICD-10 - M54.50) 07/16/2024 loss prevention/safety district manager use of drug (ICD-10 - Z79.899) 01/11/2024 Low back pain (ICD-10 - M54.50) 04/25/2024 skilled nursing use of drug (ICD-10 - Z79.899) 08/20/2024 loss prevention/safety district manager use of drug (ICD-10 - Z79.899) 01/11/2024 Left knee pain (ICD-10 - M25.562) 02/26/2024 Screening for substance abuse (ICD-10 - Z13.89) 01/11/2024 skilled nursing use of drug (ICD-10 - Z79.899) 08/20/2024 [...] 02/26/2024 Synthetic Stimulants 06/18/2024 Synthetic Stimulants 02/26/2024 Dimension Specification Inspector Benzodiazepines 02/26/2024 Dimension Specification Inspector Benzodiazepines 06/18/2024 Synthetic Cannabinoids 06/18/2024 Synthetic Cannabinoids 02/26/2024 Dimension Specification Inspector Opioids 02/26/2024 Dimension Specification Inspector Opioids 06/18/2024 Hallucinogens/Dissociatives 02/26/2024 Hallucinogens/Dissociatives 06/18/2024 SALESPERSON ART OBJECTS Other 06/18/2024 SALESPERSON ART OBJECTS Other 02/26/2024 Marijuana - Urine 02/26/2024 Marijuana - Urine 06/18/2024 [facility] Medication Compliance - Urine 1 04/27/2023 [facility] Medication Compliance - Urine 0 06/18/2024 [facility] Required Information 06/18/2024 [facility] Required Information 02/26/2024 [facility] Labs Healthcare Profile 06/18/2024 Insurance Providers Payer Name Payer Address Payer Phone Subscriber Number Group Number Insured Name Patient Relationship to Insured Coverage Start Date Coverage End Date [facility] [address] [place] [address] [id number] Susannah Camargo Self - patient is the insured Medical (General) History Medical History History ICD Code hyperlipidemia hypertension Atrial fibrillation Surgical History Surgery Date(Month/Year) B TKR B THR oophorectomy gastric sleeve 03/2020 Hospitalization History Reason Date(Month/Year) no hospitalizations since prior visit
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
--- OUTSIDE RECORDS SUMMARY | 2024-08-28 12:55 | XMS_ITS | Encounter Summary ---
Author Organization [facility] [address] [place] [address] Care Team Providers Care Box Toe Maker Name Role Phone Linette Yepez MD Primary Care Provider [phone] Reason for Visit * Reason Onset Date Comments MEDICAL MANAGEMENT 04/13/2020 JENNIFER W/ RAVI Nettles/ [facility] Encounter Details Date Type Department Care Team ([facility] st Contact Info) Description 04/13/2020 Telephone [facility] Admitting [address] [place] [address] [place] Bryant MD [id number] [place] [address] [place] [address] MEDICAL MANAGEMENT (JENNIFER Nettles/ RAVI Nettles/ HOSPITALIST [...] COVID-19? No / Unsure 04/13/2020 6:46 AM HAND COREMAKER documented as of this encounter Plan of Treatment Not on file documented as of this encounter Visit Diagnoses Not on filedocumented in this encounter Care Teams Box Toe Maker Relationship Specialty Start Date End Date Linette Yepez MD PCP - General Family Practice 04/01/20 documented as of this encounter
--- OUTSIDE RECORDS SUMMARY | 2024-08-28 12:55 | XMS_ITS ---
Author Organization [facility] Address [address] [place] [address] [address] [place] [address] Care Team Providers Care Rock Crusher Operator Name Role Phone Linette Yepez MD Primary Care Provider Francie Nidhi Alejandre [phone] Medications Medication SIG (Take, Route, Frequency, Duration) Notes Start Date End Date Status Belbuca 600 MCG 1 film Bucally every 12 hrs for 30 days Do not fill until 07/24/24 07/16/2024 Active traMADol HCl 50 MG Take 1 tablet Oral three times per day for 30 days Do not fill until 07/24/24 07/16/2024 Active Encounters Encounter Location Date Provider Diagnosis [facility] [address] [place] [address] 07/16/2024 Nidhi Dick Plan Of Treatment Medication [...] Susannah GONCALVES ADOB:[birth year] (73 yo F)Acc No.[id number]:07/16/2024 Patient: Susannah JOHN :1950 A ge:73 Y S ex:Female Address:[address] [place] [address], [address] * Refills Refill Belbuca Film, 600 MCG, Bucally, 60, 1 film, every 12 hrs, 30 days, Refills=0 Refill traMADol HCl Tablet, 50 MG, Oral, 90, Take 1 tablet, three times per day, 30 days, Refills=0 * true * Date: Generated for Charles patterson/[place]/Lucila on: 0 08/28/2024 12:54 PM CDT
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
--- OUTSIDE RECORDS SUMMARY | 2024-08-28 12:55 | XMS_ITS | CONTINUITY OF CARE DOCUMENT ---
Author Name jenny alvarado Address Unknown Organization [facility] Address [address] [facility] [address] [place] [address] Phone [phone] Care Team Providers Care Machine Overhauler Name Role Phone Terell BROWN, Chi Unavailable INSURANCE PROVIDERS Payer name Policy type / Coverage type [place] red libertarian [facility] [employer] Other [id number]
[2024-08-29 05:33] LABS: GGT 333 U/L (3-65)
== END 2024-08-28 12:47 | disposition home or self-care (01) ==
PROVIDERS: PCP Family Medicine; Visit Provider Physician Assistant
DX: K63.89 Other specified diseases of intestine (principal); K86.89 Other specified diseases of pancreas; R79.89 Other specified abnormal findings of blood chemistry; R18.8 Other ascites; R74.8 Abnormal levels of other serum enzymes; R63.4 Abnormal weight loss
CPT/HCPCS: 36415; 74177; 82977; Q9967

== ENCOUNTER 2024-09-05 11:57 | Outpatient (CLI) | payer MEDICARE, SELFPAY ==
--- OUTSIDE RECORDS SUMMARY | 2024-09-05 12:04 | XMS_ITS | Encounter Summary ---
Author Organization [facility] Address [address] [place] [address] Phone Care Team Providers Care Strike Planning Applications Name Role Phone Linette Yepez MD Primary Care Provider [phone]- [phone] Encounter Details Date Type Department Care Team (Late st Contact Info) Description 08/09/2024 Results Follow-Up [facility] [place] [address] [place] [address] Norma Clark, TOOL AND DIE TECHNICIAN, MINE LABORER [address] [place] [address] POCT UA AUTOMATED W/O MICRO, [...] on filedocumented in this encounter Care Teams Strike Planning Applications Relationship Specialty Start Date End Date Linette Yepez MD [address] [place] [address] PCP - General Family Medicine 12/08/23 documented as of this encounter
--- OUTSIDE RECORDS SUMMARY | 2024-09-05 12:04 | XMS_ITS | Encounter Summary ---
Author Organization [facility] Address [address] [place] [address] Phone Care Team Providers Care Driving Teacher Name Role Phone Linette Yepez MD Primary Care Provider Arianna Persaud Unavailable +1- [phone] Reason for Visit * Reason Onset Date Comments GI Preprocedure 09/04/2024 Encounter Details Date Type Department Care Team (Late st Contact Info) Description 09/04/2024 Telephone [facility] Gastroenterology [address] [facility] [address] [facility] [address] [place] [address] Carmen Ordonez LPN GI Preprocedure Social History Tobacco Use Types Packs/Day Years Used Date Smoking Tobacco: Never Smokeless Tobacco: Never Alcohol Use Standard Drinks/Week Comments No 0 [...] materials from doctor or pharmacy Never 04/11/2023 [facility] Utilities Answer Date Recorded In the past 12 months has th e [employer], gas, oil, or water [employer] threatened to shut off services in your [...] any clubs o r organizations such as yarsanism groups, unions, fraternal or athletic groups, or [...] place to sleep or slept in a longterm (including now)? No 02/27/2023 Personal Safety Answer Date Recorded Have you ever been in or are you currently in a harmful physical or emotional relationship or is someone making you feel afraid or unsafe? Denies 02/25/2023 Comments No Sex and Gender Information Value Date Recorded Sex Assigned at Not on file Legal Sex Female 6:30 PM TOWER DIRECTOR Gender Identity Not on file Sexual Orientation Not on file documented as of this encounter Miscellaneous Notes * Telephone Encounter - Carmen Ordonez LPN - 09/04/2024 12:20 PM CDT Trying to get pt scheduled for . pt is on Xarelto this nurse called and spoke with Carmen at 's office [phone] who states they can not give a verbal that sometimes it takes 24-48 hours to get a response from . Carmen states she will send message back to nurses to alert them a fax is coming through for AC hold rec. This nurse advised pt has a mass on pancreas concerning for malignancy and that pt has not taken her Xarelto as she takes it in the evenings. Fax resent to correct fax number [phone] * Telephone Encounter - Carmen Ordonez LPN - 09/04/2024 11:44 AM CDT PROCEDURE Type: EUS+/-ERCP Indication: Panc mass/elevated LFT Referring Physician: Daisy Mercado MD Date Referred: 09.03.24 CLINICAL ASSESSMENT [x] Clinical assessment obtained via phone call with patient 09.04.24 [x]COVID/Flu Screening questions []BMI>45, Weight >350 lbs [] Patient had GI procedure/CPAP clinic/GI clinic <30 days (if Yes, no medical screening questions needed unless new clinical issues in last 30 days) Medical screening questions: BMI/Weight: NA CARDIOVASCULAR: A fib- If new (not previously known) diagnosis, needs cards or CPAP first RESPIRATORY/LUNG: None RENAL/LIVER/GI: None GI: Previous COLON or EGD: Hx of Polyps, Tavares, Barretts:no Hx of Constipation:No Have you ever required a two day prep? No BLEEDING/CLOTTING: GIB/anemia- Obtain most recent CBC, escalate to referring and GI physician if H&H<7 to consider transfusion NEUROLOGICAL: None ENDOCRINE: None PRIOR PROCEDURE ISSUES: None MANAGER INSTALLATION/: NA IMPLANTS.: None PSYCH/Behavioral Hx: No SC has limited security Notes:RTKR Bilateral hips replaced PACEMAKER/ICD Y/N: No/NA Device info: Last documented device check: Any shocks since last cards visit (if yes must see cardiology for procedure clearance): DIALYSIS Y/N: No/NA []HD- Schedule on non-HD day, see protocol []PD- Drain PD fluid AM of procedure, if colonoscopy order AB ppx, see protocol REGULAR DIABETIC MEDS Y/N: No/NA []Yes- Discuss diabetes medication management with prescribing physician GLP DIABETIC MEDICATIONS Y/N: No/NA None Educated Patient on the need to hold Medication, and to contact their ordering MD or Oil And Gas Drafter about bridging medication for procedure. N/A [] Yes - Letter Sent to Ordering Physician/Oil And Gas Drafter Date sent: Hold instructions: GLP Weight Loss Medications No Educated Patient on the need to hold Medication, and to contact their ordering MD or Oil And Gas Drafter about bridging medication for procedure. Y/N: No/NA None [] Yes - Letter Sent to Ordering Physician/Oil And Gas Drafter Hold older Instructions: BLOOD THINNERS/ANTICOAG/ANTIPLATELET (BESIDES ASA) Medication: Rivaroxaban (Xarelto) Physician contacted for hold order/date sent: Doris Shearer 09.04.24 Hold order Method sent: adRise Fax Date hold received: Hold instructions: CONTINUE ASPIRIN INFORMATION REQUESTED []Imaging: []Medical Progress Note/H&P []Medication list []Other: PATIENT OPTIMIZATION []Physician reviewing escalation: []CPAP: Date scheduled: Outcome : [] Location limitations: Scheduling Scheduling location limitations: Manager Dish needed [x] NA Language: POA [x] NA Name: Required extended education:no SPECIAL PROCEDURE INSTRUCTIONS Scheduling Notes Procedure information Date of procedure: 09.06.24 Time of procedure: 12:30 PM Arrival time: 11:30 AM (10:30 AM for LFT) Location: [facility] Proceduralist: Dr. Geoffrey Shaver Instructions Method of instructions: Verbal and E-mail [x]Confirmation of ride/field representatives director [x]Post anesthesia restrictions given [x]NPO Instructions: [x]Diet Instructions: [x]Take non-blood thinner prescription meds that morning [x]Bring med list, photo ID, insurance card, no valuables []Bring COVBaynote vaccination card (if vaccinated) Bowel Prep Prep prescribed: NA Method of Bowel Prep (RX): NA Attempted to reach pt no answer VM full unable to LVM. MC sent. * Telephone Encounter - Carmen Ordonez LPN - 09/04/2024 11:36 AM CDT ----- Message from Francisco Vallejo sent at 09/03/2024 3:40 PM CDT ----- Regarding: MOBAP REFERRAL ----- Message ----- From: Chi Menjivar MD Sent: 09/03/2024 1:17 PM CDT To: Francisco Wilson EUS possible ERCP with any IE provider this week or next week, with LFTs on the day of procedure, pancreatic mass, elevated LFTs (pancreatic head mass) ----- Message ----- From: Francisco Wilson Sent: 09/03/2024 12:41 PM CDT To: Chi Menjivar MD Please advise on schedulin. Office visit versus direct procedure (specify procedure) 2. Urgency/timeframe to schedule 3. Dx 4. Records needed? ----- Message ----- From: Ana Sánchez PA Sent: 09/02/2024 4:37 PM CDT To: Francisco Tarango! Procedure requested: EUS with biopsy History: pancreatic mass concerning for malignancy. New referral (not scheduled yet). We are arranging pancreas protocol CT here Requesting attending: Daisy Mercado Thank you! Ana documented in this encounter Plan of Treatment Upcoming Encounters Date Type Department Care Team (Latest Contact Info) Description 09/06/2024 12:30 PM CDT Hospital Encounter [facility] [address] [place] [phone] Geoffrey Shaver MD [address] [address] David Brewer MD [address] [address] Pancreatic mass; Elevated liver function tests 09/06/2024 12:30 PM CDT - 09/06/2024 1:00 PM CDT Surgery [facility] [address] [place] [address] David Brewer MD [address] [address] EUS (+/- ERCP) [GI509] Scheduled Orders Name Type Priority Associated Diagnoses Orde r Schedule Hepatic function panel Lab STAT Pancreatic mass Elevated liver function tests Expected: 09/06/2024, Expires: 09/04/2025 documented as of this encounter Visit Diagnoses Diagnosis Elevated liver function tests- Primary Other abnormal blood chemistry Pancreatic mass Unspecified disease of pancreas Pancreatic mass Unspecified disease of pancreas Elevated liver function tests Other abnormal blood chemistry Pancreatic mass Unspecified disease of pancreas Elevated liver function tests Other abnormal blood chemistry documented in this encounter Orders Case Request Count Last Ordered Date First Orde red Date CASE REQUEST GI 1 09/04/2024 documented in this encounter Care Teams Driving Teacher Relationship Specialty Start Date End Date Linette Yepez MD [address] [place] [address] PCP - General Family Medicine 11/06/22 Arianna Persaud PA [address] [place] [address] Physician Lay Brother 08/29/24 documented as of this encounter
--- OUTSIDE RECORDS SUMMARY | 2024-09-05 12:04 | XMS_ITS | Encounter Summary ---
Author Organization [facility] Address [address] [facility] [address] [place] [address] Phone Care Team Providers Care Seasonal Greenery Bundler Name Role Phone Linette Yepez MD Primary Care Provider Arianna Persaud Unavailable +1- [phone] Reason for Visit * Reason Onset Date Comments Medical Question/Miscellaneous 09/03/2024 Encounter Details Date Type Department Care Team (Late st Contact Info) Description 09/03/2024 Telephone [facility] Advanced Medicine ([facility]) [facility] Minimally Invasive Surgery [facility] Advanced Medicine [address]th Floor, [place] [address] Daisy Mercado MD [address] [facility] [id number] [place] [address] Medical Question/Miscellaneous Social History Tobacco Use Types Packs/Day Years [...] materials from doctor or pharmacy Never 04/11/2023 [facility] Utilities Answer Date Recorded In the past 12 months has th e electric, gas, oil, or water company threatened to shut off services in your [...] often do you attend chur ch or christianity services? Never 02/27/2023 Do you belong to any clubs o r organizations such as pentecostal groups, unions, fraternal or athletic groups, or [...] on file Legal Sex Female 6:30 PM DEMURRAGE AGENT Gender Identity Not on file Sexual Orientation Not on file documented as of this encounter Miscellaneous Notes * Telephone Encounter - Joy Smith - 09/03/2024 12:06 PM CDT Patient Query: Was an attempt to transfer to the assigned clinical staff or backline? no Reason for call?: Patient calling to be scheduled, no notes yet (Read message back to caller and ask them if there is anything else they'd like to add to the message) Who is the caller: Susannah Anderson What is the best number for them to contact for a call back: [phone] Last office visit: Visit date not found Date of Surgery: No surgery found documented in this encounter Plan of Treatment Upcoming Encounters Date Type Department Care Team (Latest Contact Info) Description 09/06/2024 12:30 PM CDT Hospital Encounter [place] [address] [place] [address] Geoffrey Shaver MD [address] [place] [address] David Brewer MD [address] [place] [address] Pancreatic mass; Elevated liver function tests 09/06/2024 12:30 PM CDT - 09/06/2024 1:00 PM CDT Surgery [facility] [address] [place] [id number] David Brewer MD [address] [place] [address] EUS (+/- ERCP) [GI509] documented as of this encounter Visit Diagnoses Not on filedocumented in this encounter Care Teams Seasonal Greenery Bundler Relationship Specialty Start Date End Date Linette Yepez MD [address] [place] [address] PCP - General Family Medicine 11/06/22 Arianna Persaud PA [address] [place] [address] Physician Supervisor [facility] 08/29/24 documented as of this encounter
--- OUTSIDE RECORDS SUMMARY | 2024-09-05 12:04 | XMS_ITS | Clinical Summary ---
Author Organization [facility] Address [address] [place] [address] Phone Care Team Providers Care Pen And Pencil Repairer Name Role Phone Linette Yepez MD Primary Care Provider +1- [phone] Allergies Active Allergy Reactions Criticality Noted Date [...] mg by mouth 2 times daily. rx [id number] Active NIFEdipine CR (PROCARDIA-XL) 30 MG TABLET SR 24 HR Take 30 mg by mouth daily. rx [id number] Active Buprenorphine HCl (Belbuca) 600 MCG FILM Take 1 Film by mouth 2 times daily. rx [id number] Active hydrOXYzine (ATARAX) 25 MG Tablet Take 25 mg by mouth 3 times daily as needed for Itching or Nausea (vomiting). rx [id number] Active famotidine (PEPCID) 20 MG Tablet Take 20 mg by mouth daily. rx [id number] Active traMADol (ULTRAM) 50 MG Tablet take [...] Department Care Team Description 08/09/2024 Results Follow-Up [facility] - [facility] [address] [place] [address] Norma Clark, IT SECURITY CONSULTING DIRECTOR, AIRFIELD OPERATIONS SPECIALIST POCT UA AUTOMATED W/O MICRO, CULTURE, URINE 08/07/2024 1:20 PM CDT Urgent Care Visit [facility] [address] [place] [id number] Amrita Vee APRN, LORETTA Diarrhea, unspecified type (Primary Dx); Dysuria Discharge Disposition: Discharged to home or Selfcare 08/07/2024 Travel 07/13/2024 Results Follow-Up [place] [phone] Norma Clark APRN, LORETTA POCT UA AUTOMATED W/O MICRO, CULTURE, URINE 07/11/2024 1:30 PM CDT Urgent Care Visit [facility] [address] [place] [address] Connie Sharma APRN, LORETTA Acute [...] Distal Urethral Contaminants 08/08/2024 11:53 PM CDT [facility] Culture URINE SPECIMEN / Unknown Non-Phlebotomy Collection / Unknown 08/07/2024 1:53 PM CDT 08/07/2024 1:53 PM CDT Amrita Vee APRN, CNP MICROBIOLOGY - GENERAL ORDERABLES Final Result [facility] [address] [place] [address], [place] * POCT UA AUTOMATED W/O MICRO [...] from Last 3 Months Insurance MEDICARE [employer] Advance Directives * Full Code (Latest Code Status on File) Date Activated Date Inactivated Comments 12/27/2023 9:36 AM Care Teams Pen And Pencil Repairer Relationship Specialty Start Date End Date Linette Yepez MD [address] [facility] [address] [place] [id number] PCP - General Family Medicine 12/08/23
--- OUTSIDE RECORDS SUMMARY | 2024-09-05 12:04 | XMS_ITS | Referral Summary ---
Author Organization [facility] Address [address] [place] [address] Care Team Providers Care Managed Care Manager Name Role Phone Linette Yepez MD Primary Care Provider Arianna Persaud Unavailable +1- [phone] Encounters Date Type Department Care Team Description 09/04/2024 Telephone [facility] Medical Group Cardiology [address] [facility] [address], [place] [address] Onesimo George MD 09/04/2024 Telephone [facility] Gastroenterology [address] [facility] Medical Office [address], [address] [place] [address] Carmen Ordonez LPN GI Preprocedure 09/03/2024 Telephone [facility] ([facility]) - [facility] Minimally Invasive Surgery [address] [place] [address] [facility] 12th Floor, [place] [address] Daisy Mercado MD Medical Question/Miscellaneous 09/02/2024 Orders Only [facility] Surgery [address] [facility] [address] [place] [address] Ana Sánchez PA Pancreatic mass (Primary Dx); Encounter for follow-up examination after completed treatment for conditions other than malignant neoplasm; 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 Feels more anxiety than depression. Admits panic attacks. Reluctant to start daily medication, don't want to feel trapped into taking medicine. Will Rx BuSpar as directed. Encouraged relaxation techniques such as deep breathing and guided imagery. Keep follow as scheduled, sooner if needed. Diarrhea 06/20/2022 Assessment & Plan (06/21/2022 7:16 PM DIRECTOR OF VOCATIONAL TRAINING): Ongoing for approximately 1 week after finishing a course of cefdinir for UTI. No more urinary symptoms or abdominal pain. No acute findings on exam. Will order CDiff test. Advised on Bowel rest: push fluids, bland high fiber diet. Continue immodium if needed. Vulvovaginitis 06/20/2022 Assessment & Plan (06/21/2022 7:17 PM DIRECTOR OF VOCATIONAL TRAINING): S/p cefdinir course for UTI. Denies discharge or genital lesions. exam deferred per pt request. Rxd Diflucan as directed. Use mild non-fragrant soaps/lotions. Recurrent UTI 06/08/2022 Assessment & Plan (06/08/2022 2:35 PM DIRECTOR OF VOCATIONAL TRAINING): Currently on Abx for treatment. Patient to [...] 12/23/2021 Assessment & Plan (06/21/2022 7:12 PM DIRECTOR OF VOCATIONAL TRAINING): BP stable in office today on current therapy. Continue current regimen and low salt diet. Stay hydrated. Assessment & Plan (06/08/2022 2:36 PM DIRECTOR OF VOCATIONAL TRAINING): Chronic and mildly elevated. Goal < 130/80. [...] 12/23/2021 Assessment & Plan (06/08/2022 2:35 PM DIRECTOR OF VOCATIONAL TRAINING): Chronic and stable. 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 with bilingual receptionist Assessment & Plan (12/23/2021 12:10 PM CDT): [...] materials from doctor or pharmacy Never 04/11/2023 [facility] Utilities Answer Date Recorded In the [...] often do you attend chur ch or buddhism services? Never 02/27/2023 Do you belong to any clubs o r organizations such as mandaen groups, unions, fraternal or athletic groups, or [...] on file Legal Sex Female 6:30 PM DIRECTOR OF VOCATIONAL TRAINING Gender Identity Not on file Sexual Orientation Not on file Last Filed Vital Signs Vital Sign Reading Time Taken Comments Blood Pressure 118/70 09/19/2023 10:02 AM CDT Pulse 56 09/19/2023 10:02 AM CDT Temperature 36.2 C (97.2 F) 04/11/2023 12:53 PM DIRECTOR OF VOCATIONAL TRAINING Respiratory Rate 14 09/19/2023 10:02 AM CDT Oxygen Saturation 97% 05/22/2023 1:37 PM DIRECTOR OF VOCATIONAL TRAINING Inhaled Oxygen Concentration - - Weight 69.4 kg (153 lb) 09/19/2023 10:02 AM CDT Height 160 cm (5' 3 ) 09/19/2023 10:02 AM CDT Body Mass Index 27.1 09/19/2023 10:02 AM CDT Plan of Treatment Upcoming Encounters Date Type Department Care Team (Latest Contact Info) Description 09/06/2024 12:30 PM CDT Hospital Encounter [facility] [address] [place] [address] Geoffrey Shaver MD [address] [facility] [place] [address] David Brewer MD [address] [place] [address] Pancreatic mass; Elevated liver function tests 09/06/2024 12:30 PM CDT - 09/06/2024 1:00 PM CDT Surgery [facility] [address] [place] [phone] David Brewer MD [address] [place] [address] EUS (+/- ERCP) [GI509] Insurance MEDICARE ADVANTAGE [facility] Address: [address] [address] MEDICARE ADVANTAGE [facility] Address: [address] [address] [place] [address] [facility] MEDICARE ADVANTAGE [facility] Address: [address] [address] [place] [address] Advance Directives For more information, please contact: [phone] * Full Code (Latest Code Status on File) Date Activated Date Inactivated Comments 02/25/2023 1:22 PM 02/28/2023 7:54 PM * Full Code Date Activated Date Inactivated Comments 11/07/2022 2:00 AM 11/08/2022 7:29 PM Care Teams Managed Care Manager Relationship Specialty Start Date End Date Linette Yepez MD [address] [place] [address] PCP - General Family Medicine 11/06/22 Arianna Persaud PA [address] [place] [address] Physician Control Cabinet Assembler 08/29/24
--- OUTSIDE RECORDS SUMMARY | 2024-09-05 12:04 | XMS_ITS | Encounter Summary ---
Author Organization [facility] [address] [place] [address] Care Team Providers Care Health Assessment And Treatment Teacher Name Role Phone Linette Yepez MD Primary Care Provider +1- [phone] Reason for Visit * Reason Onset Date Comments MEDICAL MANAGEMENT 04/13/2020 JENNIFER W/ RAVI Nettles/ HOSPITALIST GROUP Encounter Details Date Type Department Care Team ([facility] st Contact Info) Description 04/13/2020 Telephone [facility] Admitting [address] [place] [address] [place] [id number] [place] [address] [place] [address] MEDICAL MANAGEMENT (JENNIFER Nettles/ RAVI Nettles/ HOSPITALIST [...] COVID-19? No / Unsure 04/13/2020 6:46 AM POPCORN MACHINE OPERATOR documented as of this encounter Plan of Treatment Not on file documented as of this encounter Visit Diagnoses Not on filedocumented in this encounter Care Teams Health Assessment And Treatment Teacher Relationship Specialty Start Date End Date Linette Yepez MD PCP - General Family Practice 04/01/20 documented as of this encounter
--- OUTSIDE RECORDS SUMMARY | 2024-09-05 12:04 | XMS_ITS | Encounter Summary ---
Author Organization [facility] Address [address] [place] [address] Care Team Providers Care Drop Worker Name Role Phone Linette Yepez MD Primary Care Provider Arianna Persaud PA Unavailable +1- [phone] Encounter Details Date Type Department Care Team (Late st Contact Info) Description 09/04/2024 Telephone [facility] Medical Group Cardiology [address] [place] [address] Onesimo George MD [address] [place] [address] Social History Tobacco Use Types Packs/Day Years [...] materials from doctor or pharmacy Never 04/11/2023 [facility] Utilities Answer Date Recorded In the past 12 months has e [employer], gas, oil, or water company threatened to [...] often do you attend chur ch or pentecostalism services? Never 02/27/2023 Do you belong to any clubs o r organizations such as quaker groups, unions, fraternal or athletic groups, or [...] place to sleep or slept in a fdc (including now)? No 02/27/2023 Personal Safety Answer Date Recorded Have you ever been in or are you currently in a harmful physical or emotional relationship or is someone making you feel afraid or unsafe? Denies 02/25/2023 Comments No Sex and Gender Information Value Date Recorded Sex Assigned at Not on file Legal Sex Female 6:30 PM ACQUISITIONS EDITOR Gender Identity Not on file Sexual Orientation Not on file documented as of this encounter Miscellaneous Notes * Telephone Encounter - Charlene Colon RN - 09/04/2024 1:18 PM CDT Clearance received, will ask DK to address. Surgery is actually listed for next week Monday. * Telephone Encounter - Carmen Rehman - 09/04/2024 12:17 PM CDT Carmen anne/ FARZANA called stating she is sending over a clearance for the pt so she can get approved for surgery on Monday she has a mass in her pancreas please advise thank you Contact: documented in this encounter Plan of Treatment Upcoming Encounters Date Type Department Care Team (Latest Contact Info) Description 09/06/2024 12:30 PM CDT Hospital Encounter [facility] [address] [place] [address] Geoffrey Shaver MD [address] [place] [address] David Brewer MD [address] [place] [address] Pancreatic mass; Elevated liver function tests 09/06/2024 12:30 PM CDT - 09/06/2024 1:00 PM CDT Surgery [facility] [address] [place] [phone] David Brewer MD [address] [place] [address] EUS (+/- ERCP) [GI509] documented as of this encounter Visit Diagnoses Not on filedocumented in this encounter Care Teams Drop Worker Relationship Specialty Start Date End Date Linette eYpez MD [address] [place] [address] PCP - General Family Medicine 11/06/22 Arianna Persaud PA [address] [place] [address] Physician Meter Maker 08/29/24 documented as of this encounter
--- OUTSIDE RECORDS SUMMARY | 2024-09-05 12:04 | XMS_ITS | Clinical Summary ---
Author Organization [facility] Address [address] [place] [address] Phone Care Team Providers Care Dispatcher Service Name Role Phone Linette Yepez MD Primary Care Provider +1- [phone] Allergies Active Allergy Reactions Criticality Noted Date [...] 90 mL 360 mL 04/14/2020 2:38 PM AMBULANCE MECHANIC 0 Active ondansetron (Zofran ODT) 8 mg Tablet, Rapid Dissolve Dissolve 1 Tablet (8 mg) by mouth every 8 hours as needed for nausea or vomiting. 20 Tablet 2 04/14/2020 2:38 PM AMBULANCE MECHANIC 0 Active Active Problems Problem Noted Date [...] Comments Blood Pressure 168/83 04/14/2020 7:59 AM AMBULANCE MECHANIC Pulse 61 04/14/2020 7:59 AM AMBULANCE MECHANIC Temperature 36.8 C (98.2 F) 04/14/2020 7:59 AM AMBULANCE MECHANIC Respiratory Rate 18 04/14/2020 7:59 AM AMBULANCE MECHANIC Oxygen Saturation 98% 04/14/2020 7:59 AM AMBULANCE MECHANIC Inhaled Oxygen Concentration - - Weight 108.2 kg (238 lb 9.6 oz) 04/13/2020 7:05 AM AMBULANCE MECHANIC Height 160 cm (5' 3 ) 04/13/2020 7:05 AM AMBULANCE MECHANIC Body Mass Index 42.27 04/13/2020 7:05 AM AMBULANCE MECHANIC Plan of Treatment Health Maintenance Due Date [...] Tdap) 03/19/2024 Medical Devices Implanted Type Area Head Of Global Strategic Partnerships Device Identifier Shelf Expiration Date Model / Serial / Lot Seamguard Endogia 60 Prpl [id number] - [id number] Implanted:Qty : 2 on 04/13/2020 by Hong Bryant MD at [facility] N/A: Abdomen [employer] 12/02/2022 [id number] / / [id number] Seamguard Endogia 60 Blk [id number] - [id number] Implanted:Qty : 1 on 04/13/2020 by Hong Bryant MD at [facility] N/A: Abdomen [employer] 08/19/2022 [id number] / / [id number] Insurance RX [employer] RX Member Subscriber Plan / Payer (Ef fective 2016-Present) Name:Raman Susannah A Relation to Subscriber:Self Name:Raman Susannah A Payer ID:Not on file Group ID:[id number] Type:RX Medicare Part D Address: [address] Advance Directives For more information, please contact: [phone] * Full Code (Latest Code Status on File) Date Activated Date Inactivated Comments 04/13/2020 1:09 PM 04/14/2020 5:55 PM Care Teams Dispatcher Service Relationship Specialty Start Date End Date Linette Yepez MD PCP - General Family Practice 04/01/20
--- OUTSIDE RECORDS SUMMARY | 2024-09-05 12:04 | XMS_ITS | Encounter Summary ---
Author Organization [facility] Address [address] [place] [address] Phone Care Team Providers Care Flight Operations Engineer Name Role Phone Linette Yepez MD Primary Care Provider +1- [phone] Encounter Details Date Type Department Care Team (Late st Contact Info) Description 07/13/2024 Results [facility] - [facility] [address] [place] [address] Norma Clark, DIALYSIS EQUIPMENT TECHNICIAN, NURSING INFORMATION SYSTEMS COORDINATOR [address] [place] [address] POCT UA AUTOMATED W/O MICRO, [...] on filedocumented in this encounter Care Teams Flight Operations Engineer Relationship Specialty Start Date End Date Linette Yepez MD [address] [facility] [address] [facility] [address] [place] [id number] PCP - General Family Medicine 12/08/23 documented as of this encounter
--- OUTSIDE RECORDS SUMMARY | 2024-09-05 12:05 | XMS_ITS | Clinical Summary ---
Author Organization [facility] Address [address] [place] [address] Care Team Providers Care Cloth Napping Supervisor Name Role Phone Linette Yepez MD Primary Care Provider Arianna Persaud PA Unavailable +1- [phone] Allergies Active Allergy Reactions Criticality Noted Date [...] 06/21/2022 Assessment & Plan (06/21/2022 7:25 PM PUBLIC HEALTH ENGINEER): Worsening after of her mother in 04/2022. Feels more anxiety than depression. Admits panic attacks. Reluctant to start daily medication, don't want to feel trapped into taking medicine. Will Rx BuSpar as directed. Encouraged relaxation techniques such as deep breathing and guided imagery. Keep follow as scheduled, sooner if needed. Diarrhea 06/20/2022 Assessment & Plan (06/21/2022 7:16 PM PUBLIC HEALTH ENGINEER): Ongoing for approximately 1 week after finishing a course of cefdinir for UTI. No more urinary symptoms or abdominal pain. No acute findings on exam. Will order CDiff test. Advised on Bowel rest: push fluids, bland high fiber diet. Continue immodium if needed. Vulvovaginitis 06/20/2022 Assessment & Plan (06/21/2022 7:17 PM PUBLIC HEALTH ENGINEER): S/p cefdinir course for UTI. Denies discharge or genital lesions. exam deferred per pt request. Rxd Diflucan as directed. Use mild non-fragrant soaps/lotions. Recurrent UTI 06/08/2022 Assessment & Plan (06/08/2022 2:35 PM PUBLIC HEALTH ENGINEER): Currently on Abx for treatment. Patient to [...] 12/23/2021 Assessment & Plan (06/21/2022 7:12 PM PUBLIC HEALTH ENGINEER): BP stable in office today on current therapy. Continue current regimen and low salt diet. Stay hydrated. Assessment & Plan (06/08/2022 2:36 PM PUBLIC HEALTH ENGINEER): Chronic and mildly elevated. Goal < 130/80. [...] 12/23/2021 Assessment & Plan (06/08/2022 2:35 PM PUBLIC HEALTH ENGINEER): Chronic and stable. 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 with senior c developer Assessment & Plan (12/23/2021 12:10 PM CDT): [...] Type Department Care Team Description 09/04/2024 Telephone [facility] Medical Group Cardiology [address] [facility] [address] [place] [address] Onesimo George MD 09/04/2024 Telephone [facility] Gastroenterology [address] [facility] Medical Office [address], [address] [place] [address] Carmen Ordonez LPN GI Preprocedure 09/03/2024 Telephone [facility] ([facility]) - [facility] Minimally Invasive Surgery [address] [place] [address] 12th Floor, [place] [address] Daisy Mercado MD Medical Question/Miscellaneous 09/02/2024 Orders Only [facility] Surgery [address] [place] [address] Ana Sánchez PA Pancreatic mass (Primary Dx); Encounter for follow-up examination after completed treatment for conditions other than malignant neoplasm; 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 Sutherland tonsilectomy 1960 tonsilectomy ophrectomy 1960 ophrectomy Osteoarthritis Osteoarthritis Hypertension Hypertension Atrial fibrillation [...] doctor or pharmacy Never 04/11/2023 [facility] Utilities Answer Date Recorded In the past 12 months has th e [employer], app[employer], oil, or water [employer] threatened to shut off services in your [...] often do you attend chur ch or rastafari services? Never 02/27/2023 Do you belong to any clubs o r organizations such as religious groups, unions, fraternal or athletic groups, or [...] place to sleep or slept in a detention (including now)? No 02/27/2023 Personal Safety Answer Date Recorded Have you ever been in or are you currently in a harmful physical or emotional relationship or is someone making you feel afraid or unsafe? Denies 02/25/2023 Comments No Sex and Gender Information Value Date Recorded Sex Assigned at Not on file Legal Sex Female 6:30 PM PUBLIC HEALTH ENGINEER Gender Identity Not on file Sexual Orientation Not on file Obstetrics History Last Filed Vital Signs Vital Sign Reading Time Taken Comments Blood Pressure 118/70 09/19/2023 10:02 AM CDT Pulse 56 09/19/2023 10:02 AM CDT Temperature 36.2 C (97.2 F) 04/11/2023 12:53 PM PUBLIC HEALTH ENGINEER Respiratory Rate 14 09/19/2023 10:02 AM CDT Oxygen Saturation 97% 05/22/2023 1:37 PM PUBLIC HEALTH ENGINEER Inhaled Oxygen Concentration - - Weight 69.4 kg (153 lb) 09/19/2023 10:02 AM CDT Height 160 cm (5' 3 ) 09/19/2023 10:02 AM CDT Body Mass Index 27.1 09/19/2023 10:02 AM CDT Plan of Treatment Upcoming Encounters Date Type Department Care Team (Latest Contact Info) Description 09/06/2024 12:30 PM CDT Hospital Encounter [facility] [address] [place] [phone] Geoffrey Shaver MD [address] [address] David Brewer MD [address] [address] Pancreatic mass; Elevated liver function tests 09/06/2024 12:30 PM CDT - 09/06/2024 1:00 PM CDT Surgery [facility] [address] [place] [phone] David Brewer MD [address] [address] EUS (+/- ERCP) [GI509] Health Maintenance Due Date Last Done Comments [...] 2024 01/16/20 15, 02/21/2009 Insurance MEDICARE ADVANTAGE MEDICARE ADVANTAGE [facility] MEDICARE ADVANTAGE Advance Directives For more information, please contact: [phone] * Full Code (Latest Code Status on File) Date Activated Date Inactivated Comments 02/25/2023 1:22 PM 02/28/2023 7:54 PM * Full Code Date Activated Date Inactivated Comments 11/07/2022 2:00 AM 11/08/2022 7:29 PM Care Teams Cloth Napping Supervisor Relationship Specialty Start Date End Date Linette Yepez MD [address] [address] PCP - General Family Medicine 11/06/22 Arianna Persaud PA [address] [address] Physician Window And Door Installer 08/29/24
--- OUTSIDE RECORDS SUMMARY | 2024-09-05 12:05 | XMS_ITS | Clinical Summary ---
Author Organization [facility] Address [address] [place] [address] Care Team Providers Care Electrical Software Engineer Name Role Phone Aury Joseph RN Unavailable [phone] Dar Stinson MD Unavailable [phone] Linette Yepez MD Primary Care Provider + Source Comments [facility],non-owned Affiliates and Associated Physician Practices is amultiple site organization consisting of ambulatory clinics and hospital sitesin [place], [place], [place] and [place]. This disclosure is being madepursuant to the Care Everywhere program and may not contain all information available regarding this patient. 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 [employer] Not on file Not on file Not on file Last Filed Vital Signs Vital Sign Reading Time Taken Comments Blood Pressure 106/74 06/16/2021 10:41 AM CONTACT ASSEMBLER Pulse 60 06/16/2021 10:41 AM CONTACT ASSEMBLER Temperature 36.2 C (97.2 F) 06/16/2021 10:41 AM CONTACT ASSEMBLER Respiratory Rate 20 06/16/2021 10:41 AM CONTACT ASSEMBLER Oxygen Saturation 97% 06/16/2021 10:41 AM CONTACT ASSEMBLER Inhaled Oxygen Concentration - - Weight 72.6 kg (160 lb) 06/16/2021 10:41 AM CONTACT ASSEMBLER Height 160 cm (5' 3 ) 06/16/2021 10:41 AM CONTACT ASSEMBLER Body Mass Index 28.34 06/16/2021 10:41 AM CONTACT ASSEMBLER Plan of Treatment Health Maintenance Due Date [...] < 140/90 Blood Pressure 106/74(2021 10:41 AM CONTACT ASSEMBLER) Nae Montanez MA Medical Devices Implanted Type Area Director Of Quantitative Research Device Identifier Shelf Expiration Date Model / Serial / Lot Shell Coat 3hole 54mm Implanted:Qty: 1 on 11/21/2013 by Francis Cortes MD at [facility] Right: Hip [employer] 08/16/2023 [id number] / / [id number] Linr Acetab Refl Xlpe 0deg 36mm X 54mm Implanted:Qty: 1 on 11/21/2013 by Francis Cortes MD at [facility] Right: Hip [employer] 10/15/2023 [id number] / / [id number] Spherical Head Screw 6.5mm Cancellous Implanted:Qty: 1 on 11/21/2013 by Francis Cortes MD at [facility] Right: Hip [employer] 05/17/2023 [id number] / / [id number] Standard Offset Fixed Neck Stikitite Coated Stem Feoral Coponent Implanted:Qty: 1 on 11/21/2013 by Francis Cortes MD at [facility] Right: Hip [employer] 06/14/2023 [id number] / / [id number] 03/30 Taper Femoral Head Implanted:Qty: 1 on 11/21/2013 by Francis Cortes MD at [facility] Right: Hip [employer] 12/14/2022 [id number] / / [id number] Bill Only H1 Uncem Metal Or Ceramic Implanted:Qty: 1 on 11/21/2013 by Francis Cortes MD at [facility] [employer] H1 BILL ONLY [...] 1:06 PM CDT Narrative Resulting Agency Comment [facility] [address] [facility] [id number] Feliciano Oliver MD LAB - CHEMISTRY ORDERABLES Fin al Result [facility] ACCOUNT BILL [address] [place] [address] * MAMMO SCREENING DIGITAL IMAGE BILAT (09/09/2014 5:05 PM CDT) Anatomical Region Laterality Modality Breast Bilateral Mammography 09/10/2014 5:08 PM CDT Impressions 09/10/2014 5:09 PM CDT No mammographic evidence of malignancy in either breast. ASSESSMENT: BIRADS Category 1: Negative. RECOMMENDATION: Bilateral screening mammogram in one year. Thank you for allowing us to participate in the care of your patient. [facility] [place] utilizes Threat Stack as a reminder system to notify patients of their next recommended mammogram. Narrative 09/10/2014 5:09 PM CDT EXAMINATION: Digital screening mammogram on 09/09/2014. Computer assisted detection was utilized. PRIOR: Mammogram from [facility] in 09/28/2006. FINDINGS: Breast parenchymal [...] offers HCV Ab w/Reflex to Verification test #[id number]. Blood specimen (specimen) BLOOD SPECIMEN / Unknown 08/09/2013 8:53 AM CDT 08/09/2013 12:57 PM CDT Narrative Resulting Agency Comment [facility] [address] [facility] [id number] Feliciano Oliver MD LAB - CHEMISTRY ORDERABLES Fin al Result [facility] ACCOUNT BILL [address] [place] [address] from Last 3 Months or Most Recently Relevant to Health Maintenance Insurance MANAGED MEDICARE ADV MANAGED MEDICARE ADV Advance Directives * Full Code (Latest Code Status on File) Date Activated Date Inactivated Comments 11/21/2013 12:38 PM 11/24/2013 6:31 PM * Full Code Date Activated Date Inactivated Comments 02/18/2009 10:26 AM 02/22/2009 1:32 AM Care Teams Electrical Software Engineer Relationship Specialty Start Date End Date Linette Yepez MD [address] [place] [address] PCP - General Family Medicine 01/09/20 Aury Joseph, RN Cd Manufacturing Supervisor 11/22/13 [place] [address] [address] Orthopedic Surgery 12/27/13
--- OUTSIDE RECORDS SUMMARY | 2024-09-05 12:05 | XMS_ITS | CONTINUITY OF CARE DOCUMENT ---
Author Name jenny alvarado Address Unknown Organization [facility] Address [address] [facility] [address] [place] [address] Phone [phone] Care Team Providers Care Knapsack Sprayer Name Role Phone Terell BROWN, Chi Unavailable [phone] INSURANCE PROVIDERS Payer name Policy type / Coverage type [place] red democrat ID [facility] BENEFIT SERVICES Other [id number]
[2024-09-05 12:26] LABS: Hematocrit 32.4 % (37.0-47.0); Hemoglobin 10.2 g/dL (12.0-15.0); Mean Corpuscular HGB Conc 31.5 g/dl (32-36); Mean Corpuscular Hemoglobin 28.9 pg (26-34); Mean Corpuscular Volume 91.8 fl (80-100); Mean Platelet Volume 10.9 fl (7.4-10.4); Platelet Count Result 211 k/mm3 (150-375); Red Blood Count 3.53 M/mm3 (4.2-5.4); White Blood Count 4.6 K/mm3 (4.5-10.0)
[2024-09-05 12:39] LABS: INR 1.1; Prothrombin Time 14.5 Seconds (11.1-14.7)
[2024-09-05 12:41] LABS: Alanine Aminotransferase 160 U/L (6-35); Albumin Level 3.2 g/dL (3.5-5.1); Alkaline Phosphatase 1234 U/L (38-126); Anion Gap 3 mmol/L (4-12); Aspartate Amino Transferase 237 U/L (14-36); Bilirubin Direct 2.2 mg/dL (0-0.3); Bilirubin,Total 4.9 mg/dL (0.2-1.3); Blood Urea Nitrogen 17 mg/dL (7-17); Calcium 9.3 mg/dL (8.4-10.2); Carbon Dioxide 32 mmol/L (22-30); Chloride 100 mmol/L (98-107); Estimated Glomerular Filt Rate 60; Glucose 94 mg/dL (65-110); Sodium 135 mmol/L (137-145)
[2024-09-07 02:43] LABS: CA 19-9 29 U/mL (<34)
== END 2024-09-05 11:58 | disposition home or self-care (01) ==
PROVIDERS: Visit Provider Nurse Practitioner
DX: C25.9 Malignant neoplasm of pancreas, unspecified (principal); K52.9 Noninfective gastroenteritis and colitis, unspecified
CPT/HCPCS: 36415; 80048; 80076; 85027; 85610; 86301

== ENCOUNTER 2024-09-05 13:48 | Outpatient (CLI) | payer MEDICARE, SELFPAY ==
--- OUTSIDE RECORDS SUMMARY | 2024-09-05 13:52 | XMS_ITS | Referral Summary ---
Author Organization [facility] Address [address] [place] [address] Care Team Providers Care Smoking Tobacco Cutter Operator Name Role Phone Linette Yepez MD Primary Care Provider Arianna Persaud PA Unavailable [phone] Encounters Date Type Department Care Team Description 09/05/2024 1:04 PM CDT Hospital Encounter [facility] [address] [place] [address] Diagnosis unknown 09/04/[address] [facility] Cardiology [address] [facility] [address], [place] [phone] Onesimo George MD 09/04/2024 Telephone [facility] [address] [facility] [address] [place] [address] Carmen Ordonez LPN GI Preprocedure 09/03/2024 Telephone [facility] ([facility]) - [facility] Minimally Invasive Surgery [address] [facility] 12th Floor, [place] [address] Daisy Mercado MD Medical Question/Miscellaneo us 09/02/2024 Orders Only [facility] Surgery [address] [facility] [address] [place] [address] Ana Sánchez PA Pancreatic mass [...] 06/21/2022 Assessment & Plan (06/21/2022 7:25 PM PLAYER MANAGER): Worsening after of her mother in 04/2022. Feels more anxiety than depression. Admits panic attacks. Reluctant to start daily medication, don't want to feel trapped into taking medicine. Will Rx BuSpar as directed. Encouraged relaxation techniques such as deep breathing and guided imagery. Keep follow as scheduled, sooner if needed. Diarrhea 06/20/2022 Assessment & Plan (06/21/2022 7:16 PM PLAYER MANAGER): Ongoing for approximately 1 week after finishing a course of cefdinir for UTI. No more urinary symptoms or abdominal pain. No acute findings on exam. Will order CDiff test. Advised on Bowel rest: push fluids, bland high fiber diet. Continue immodium if needed. Vulvovaginitis 06/20/2022 Assessment & Plan (06/21/2022 7:17 PM PLAYER MANAGER): S/p cefdinir course for UTI. Denies discharge or genital lesions. exam deferred per pt request. Rxd Diflucan as directed. Use mild non-fragrant soaps/lotions. Recurrent UTI 06/08/2022 Assessment & Plan (06/08/2022 2:35 PM PLAYER MANAGER): Currently on Abx for treatment. Patient to [...] 12/23/2021 Assessment & Plan (06/21/2022 7:12 PM PLAYER MANAGER): BP stable in office today on current therapy. Continue current regimen and low salt diet. Stay hydrated. Assessment & Plan (06/08/2022 2:36 PM PLAYER MANAGER): Chronic and mildly elevated. Goal < 130/80. [...] 12/23/2021 Assessment & Plan (06/08/2022 2:35 PM PLAYER MANAGER): Chronic and stable. 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 with application specialist Assessment & Plan (12/23/2021 12:10 PM CDT): [...] materials from doctor or pharmacy Never 04/11/2023 [facility] Utilities Answer Date Recorded In the past 12 months has e [employer], [employer], oil, or water [employer] threatened to shut off services in your [...] often do you attend chur ch or faith services? Never 02/27/2023 Do you belong to any clubs o r organizations such as moravian groups, unions, fraternal or athletic groups, or [...] money to buy more. Never true 02/28/20 Within the past 12 months, t he [...] on file Legal Sex Female 6:30 PM PLAYER MANAGER Gender Identity Not on file Sexual Orientation Not on file Last Filed Vital Signs Vital Sign Reading Time Taken Comments Blood Pressure 118/70 09/19/2023 10:02 AM CDT Pulse 56 09/19/2023 10:02 AM CDT Temperature 36.2 C (97.2 F) 04/11/2023 12:53 PM PLAYER MANAGER Respiratory Rate 14 09/19/2023 10:02 AM CDT Oxygen Saturation 97% 05/22/2023 1:37 PM PLAYER MANAGER Inhaled Oxygen Concentration - - Weight 69.4 kg (153 lb) 09/19/2023 10:02 AM CDT Height 160 cm (5' 3 ) 09/19/2023 10:02 AM CDT Body Mass Index 27.1 09/19/2023 10:02 AM CDT Plan of Treatment Upcoming Encounters Date Type Department Care Team (Latest Contact Info) Description 09/06/2024 12:30 PM CDT Hospital Encounter [facility] GI Center [address] [place] [address] Geoffrey Shaver MD [address] [address] David Brewer MD [address] [address] Pancreatic mass; Elevated liver function tests 09/06/2024 12:30 PM CDT - 09/06/2024 1:00 PM CDT Surgery [facility] [address] [place] [address] David Brewer MD [address] [address] EUS (+/- ERCP) [[id number]] [place] [address] [id number] [place] [address] [facility] MEDICARE ADVANTAGE Advance Directives For more information, please contact: [phone] * Full Code (Latest Code Status on File) Date Activated Date Inactivated Comments 02/25/2023 1:22 PM 02/28/2023 7:54 PM * Full Code Date Activated Date Inactivated Comments 11/07/2022 2:00 AM 11/08/2022 7:29 PM Care Teams Smoking Tobacco Cutter Operator Relationship Specialty Start Date End Date Linette Yepez MD [address] [place] [address] PCP - General Family Medicine 11/06/22 Arianna Persaud PA [address] [place] [address] Physician Senior Database Administrator 08/29/24
--- OUTSIDE RECORDS SUMMARY | 2024-09-05 13:52 | XMS_ITS | Encounter Summary ---
Author Organization [facility] Address [address] [place] [address] Phone Care Team Providers Care Graphics Programmer Name Role Phone Linette Yepez MD Primary Care Provider Arianna Persaud Unavailable [phone] Reason for Visit * Reason Onset Date Comments GI Preprocedure 09/04/2024 Encounter Details Date Type Department Care Team (Late st Contact Info) Description 09/04/2024 Telephone [facility]enterology [address] [facility] [address] [place] [address] Carmen Ordonez LPN GI Preprocedure [...] materials from doctor or pharmacy Never 04/11/2023 [facility] [place] [facility] Utilities Answer Date Recorded In the past 12 months has th e [employer], gas, oil, or water [employer] threatened to shut off services in your [...] often do you attend chur ch or roman catholic services? Never 02/27/2023 Do you belong to any clubs o r organizations such as episcopalian groups, unions, fraternal or athletic groups, or [...] place to sleep or slept in a intermediate (including now)? No 02/27/2023 Personal Safety Answer Date Recorded Have you ever been in or are you currently in a harmful physical or emotional relationship or is someone making you feel afraid or unsafe? Denies 02/25/2023 Comments No Sex and Gender Information Value Date Recorded Sex Assigned at Not on file Legal Sex Female 6:30 PM DEPUTY SHERIFF GENERALIST Gender Identity Not on file Sexual Orientation Not on file documented as of this encounter Miscellaneous Notes * Telephone Encounter - Carmen Ordonez LPN - 09/04/2024 12:20 PM CDT Trying to get pt scheduled for . pt is on Xarelto this nurse called and spoke with Carmen at 's office [phone] who states they can not give a [...] evenings. Fax resent to correct fax number [phone] * Telephone Encounter - Carmen Ordonez LPN [...] None ENDOCRINE: None PRIOR PROCEDURE ISSUES: None CLINICAL ATHLETIC INSTRUCTOR/: NA IMPLANTS.: None PSYCH/Behavioral Hx: No SC [...] and to contact their ordering MD or Baker Pastry about bridging medication for procedure. N/A [] Yes - Letter Sent to Ordering Physician/Baker Pastry Date sent: Hold instructions: GLP Weight Loss Medications No Educated Patient on the need to hold Medication, and to contact their ordering MD or Baker Pastry about bridging medication for procedure. Y/N: No/NA None [] Yes - Letter Sent to Ordering Physician/Baker Pastry Hold older Instructions: BLOOD THINNERS/ANTICOAG/ANTIPLATELET (BESIDES ASA) Medication: Rivaroxaban (Xarelto) Physician contacted for hold order/date sent: Doris Shearer 09.04.24 Hold order Method sent: KXEN Fax Date hold received: Hold instructions: CONTINUE ASPIRIN INFORMATION REQUESTED []Imaging: []Medical Progress Note/H&P []Medication list []Other: PATIENT OPTIMIZATION []Physician reviewing escalation: []CPAP: Date scheduled: Outcome : [] Location limitations: Scheduling Scheduling location limitations: Sql Ssrs Ssis Developer needed [x] NA Language: POA [x] NA Name: Required extended education:no SPECIAL PROCEDURE INSTRUCTIONS Scheduling Notes Procedure information Date of procedure: 09.06.24 Time of procedure: 12:30 PM Arrival time: 11:30 AM (10:30 AM for LFT) Location: [facility] Proceduralist: Dr. Geoffrey Shaver Instructions Method of instructions: Verbal and E-mail [x]Confirmation of ride/glass blower helper [x]Post anesthesia restrictions given [x]NPO Instructions: [x]Diet Instructions: [x]Take non-blood thinner prescription meds that morning [x]Bring med list, photo ID, insurance card, no valuables []Bring COVLedbury vaccination card (if vaccinated) Bowel Prep Prep [...] Description 09/06/2024 12:30 PM CDT Hospital Encounter [facility] [address] [place] [address] Geoffrey Shaver MD [address] [address] David Brewer MD [address] [address] Pancreatic mass; Elevated liver function tests 09/06/2024 12:30 PM CDT - 09/06/2024 1:00 PM CDT Surgery [facility] [address] [place] [address] David Brewer MD [address] [address] EUS (+/- ERCP) [GI509] Scheduled Orders Name [...] 09/04/2024 documented in this encounter Care Teams Graphics Programmer Relationship Specialty Start Date End Date Linette Yepez MD [address] [place] [address] PCP - General Family Medicine 11/06/22 Arianna Persaud PA [address] [place] [address] Physician Steel Melter 08/29/24 documented as of this encounter
--- OUTSIDE RECORDS SUMMARY | 2024-09-05 13:52 | XMS_ITS | Encounter Summary ---
Author Organization [facility] Address [address] [facility] [address] [place] [address] Phone Care Team Providers Care Cream Dumper Name Role Phone Linette Yepez MD Primary Care Provider Arianna Persaud Unavailable [phone] Reason for Visit * Reason Onset Date Comments Medical Question/Miscellaneous 09/03/2024 Encounter Details Date Type Department Care Team (Late st Contact Info) Description 09/03/2024 Telephone [facility] ([facility] Minimally Invasive Surgery [facility] Advanced Medicine 12th Floor, [place] [address] Daisy Mercado MD [address] [facility] [id number] [place] [address] Medical Question/Miscellaneous Social History Tobacco Use Types [...] materials from doctor or pharmacy Never 04/11/2023 [facility] Utilities Answer Date Recorded In the [...] often do you attend chur ch or mormonism services? Never 02/27/2023 Do you belong to any clubs o r organizations such as mormon groups, unions, fraternal or athletic groups, or [...] place to sleep or slept in a prison (including now)? No 02/27/2023 Personal Safety Answer Date Recorded Have you ever been in or are you currently in a harmful physical or emotional relationship or is someone making you feel afraid or unsafe? Denies 02/25/2023 Comments No Sex and Gender Information Value Date Recorded Sex Assigned at Not on file Legal Sex Female 6:30 PM MAIL CALLER Gender Identity Not on file Sexual Orientation [...] them to contact for a call back: [phone] Last office visit: Visit date not found Date of Surgery: No surgery found documented in this encounter Plan of Treatment Upcoming Encounters Date Type Department Care Team (Latest Contact Info) Description 09/06/2024 12:30 PM CDT Hospital Encounter [facility] [id number] [place] [address] Geoffrey Shaver MD [address] [place] [address] David Brewer MD [address] [place] [address] Pancreatic mass; Elevated liver function tests 09/06/2024 12:30 PM CDT - 09/06/2024 1:00 PM CDT Surgery [facility] [address] [place] [address] David Brewer MD [address] [place] [address] EUS (+/- ERCP) [GI509] documented as of this encounter Visit Diagnoses Not on filedocumented in this encounter Care Teams Cream Dumper Relationship Specialty Start Date End Date Linette Yepez MD [address] [place] [address] PCP - General Family Medicine 11/06/22 Arianna Persaud PA [address] [place] [address] Physician Industrial Specialist 08/29/24 documented as of this encounter
--- OUTSIDE RECORDS SUMMARY | 2024-09-05 13:52 | XMS_ITS | Encounter Summary ---
Author Organization [facility] Address [address] [place] [address] Care Team Providers Care Lasting Machine Operator Bed Name Role Phone Linette Yepez MD Primary Care Provider Arianna Persaud PA Unavailable [phone]- [phone] Encounter Details Date Type Department Care Team (Late st Contact Info) Description 09/04/2024 Telephone [facility] Cardiology [address] [place] [address] Onesimo George MD [address] [place] [address] Social History Tobacco Use Types Packs/Day [...] from doctor or pharmacy Never 04/11/2023 [facility] Utilities Answer Date Recorded In the past 12 months has e [employer], gas, oil, or water company threatened to [...] often do you attend chur ch or yarsanism services? Never 02/27/2023 Do you belong to [...] on file Legal Sex Female 6:30 PM LEGAL SECRETARY Gender Identity Not on file Sexual Orientation [...] Description 09/06/2024 12:30 PM CDT Hospital Encounter [facility] [address] [place] [address] Geoffrey Shaver MD [address] [place] [address] David Brewer MD [address] [place] [address] Pancreatic mass; Elevated liver function tests 09/06/2024 12:30 PM CDT - 09/06/2024 1:00 PM CDT Surgery [facility] GI Center [address] [place] [address] David Brewer MD [address] [place] [address] EUS (+/- ERCP) [GI509] documented as of this encounter Visit Diagnoses Not on filedocumented in this encounter Care Teams Lasting Machine Operator Bed Relationship Specialty Start Date End Date Linette Yepez MD [address] [place] [address] PCP - General Family Medicine 11/06/22 Arianna Persaud PA [address] [place] [address] Physician Team Driver 08/29/24 documented as of this encounter
--- OUTSIDE RECORDS SUMMARY | 2024-09-05 13:52 | XMS_ITS | Encounter Summary ---
Author Organization [facility] Address [address] [place] [address] Phone Care Team Providers Care Jointer Machine Name Role Phone Linette Yepez MD Primary Care Provider [phone]- [phone] Encounter Details Date Type Department Care Team (Late st Contact Info) Description 07/13/2024 Results [facility] [address] [place] [address] Norma Clark, UTILIZATION REVIEW SPECIALIST, ADMEASURER [address] [place] [address] POCT UA AUTOMATED W/O MICRO, [...] on filedocumented in this encounter Care Teams Jointer Machine Relationship Specialty Start Date End Date Linette Yepez MD [address] [facility] [address] [facility] [address] [place] [id number] PCP - General Family Medicine 12/08/23 documented as of this encounter
--- OUTSIDE RECORDS SUMMARY | 2024-09-05 13:52 | XMS_ITS | Clinical Summary ---
Author Organization [facility] Address [address] [place] [address] Phone Care Team Providers Care Analytical Tech Name Role Phone Linette Yepez MD Primary Care Provider +1- [phone] Allergies Active Allergy Reactions Criticality Noted Date [...] 90 mL 360 mL 04/14/2020 2:38 PM PATTERN PERFORATING MACHINE OPERATOR 0 Active ondansetron (Zofran ODT) 8 mg Tablet, Rapid Dissolve Dissolve 1 Tablet (8 mg) by mouth every 8 hours as needed for nausea or vomiting. 20 Tablet 2 04/14/2020 2:38 PM PATTERN PERFORATING MACHINE OPERATOR 0 Active Active Problems Problem Noted Date [...] Comments Blood Pressure 168/83 04/14/2020 7:59 AM PATTERN PERFORATING MACHINE OPERATOR Pulse 61 04/14/2020 7:59 AM PATTERN PERFORATING MACHINE OPERATOR Temperature 36.8 C (98.2 F) 04/14/2020 7:59 AM PATTERN PERFORATING MACHINE OPERATOR Respiratory Rate 18 04/14/2020 7:59 AM PATTERN PERFORATING MACHINE OPERATOR Oxygen Saturation 98% 04/14/2020 7:59 AM PATTERN PERFORATING MACHINE OPERATOR Inhaled Oxygen Concentration - - Weight 108.2 kg (238 lb 9.6 oz) 04/13/2020 7:05 AM PATTERN PERFORATING MACHINE OPERATOR Height 160 cm (5' 3 ) 04/13/2020 7:05 AM PATTERN PERFORATING MACHINE OPERATOR Body Mass Index 42.27 04/13/2020 7:05 AM PATTERN PERFORATING MACHINE OPERATOR Plan of Treatment Health Maintenance Due Date [...] Tdap) 03/19/2024 Medical Devices Implanted Type Area Machine Tool Mechanic Device Identifier Shelf Expiration Date Model / Serial / Lot Seamguard Endogia 60 [id number] [id number] - [id number] Implanted:Qty : 2 on 04/13/2020 by Hong Bryant MD at [facility] N/A: Abdomen [employer] 12/02/2022 [id number] / / [id number] Seamguard Endogia 60 Blk [id number] - [id number] Implanted:Qty : 1 on 04/13/2020 by Hong Bryant MD at [facility] N/A: Abdomen [employer] 08/19/2022 [id number] / / [id number] Insurance RX [employer] RX Member Subscriber Plan / Payer (Ef fective 2016-Present) Name:Raman Susannah A Relation to Subscriber:Self Name:Raman Susannah A Payer ID:Not on file Group ID:[id number] Type:RX Medicare Part D Address: [address] Advance Directives For more information, please contact: [phone] * Full Code (Latest Code Status on File) Date Activated Date Inactivated Comments 04/13/2020 1:09 PM 04/14/2020 5:55 PM Care Teams Analytical Tech Relationship Specialty Start Date End Date Linette Yepez MD PCP - General Family Practice 04/01/20
--- OUTSIDE RECORDS SUMMARY | 2024-09-05 13:52 | XMS_ITS | Encounter Summary ---
Author Organization [facility] Address [address] [place] [address] Phone Care Team Providers Care Car Stower Name Role Phone Linette Yepez MD Primary Care Provider +1- [phone] Encounter Details Date Type Department Care Team (Late st Contact Info) Description 08/09/2024 Results Follow-Up [facility] - [facility] [place] [address] [place] [address] Norma Clark, RN INVASIVE, ORANGE PICKING SUPERVISOR [address] [place] [address] POCT UA AUTOMATED W/O MICRO, [...] on filedocumented in this encounter Care Teams Car Stower Relationship Specialty Start Date End Date Linette Yepez MD [address] [place] [address] PCP - General Family Medicine 12/08/23 documented as of this encounter
--- OUTSIDE RECORDS SUMMARY | 2024-09-05 13:52 | XMS_ITS | CONTINUITY OF CARE DOCUMENT ---
Author Name jenny alvarado Address Unknown Organization [facility] Address [address] [facility] [address] [place] [address] Phone [phone] Care Team Providers Care Stock Preparation Operator Name Role Phone Terell BROWN, Chi Unavailable INSURANCE PROVIDERS Payer name Policy type / Coverage type Greenleaf red green party ID [facility] BENEFIT SERVICES Other [id number]
--- OUTSIDE RECORDS SUMMARY | 2024-09-05 13:52 | XMS_ITS | Encounter Summary ---
Author Organization [facility] Address [address] [place] [address] Care Team Providers Care Toggle Press Folder And Feeder Name Role Phone Linette Yepez MD Primary Care Provider Arianna Persaud PA Unavailable +1- [phone] Encounter Details Date Type Department Care Team (Latest Contact Info) Description 09/05/2024 1:04 PM CDT Hospital Encounter [facility] [address] [place] [address] Diagnosis unknown Social History Tobacco Use Types Packs/Day Years [...] materials from doctor or pharmacy Never 04/11/2023 [facility] Utilities Answer Date Recorded In the [...] often do you attend chur ch or sikh services? Never 02/27/2023 Do you belong to any clubs o r organizations such as anabaptism groups, unions, fraternal or athletic groups, or [...] place to sleep or slept in a mcfp (including now)? No 02/27/2023 Personal Safety Answer Date Recorded Have you ever been in or are you currently in a harmful physical or emotional relationship or is someone making you feel afraid or unsafe? Denies 02/25/2023 Comments No Sex and Gender Information Value Date Recorded Sex Assigned at Not on file Legal Sex Female 6:30 PM REGISTERED RADIOLOGIC TECHNOLOGIST Gender Identity Not on file Sexual Orientation Not on file documented as of this encounter Plan of Treatment Upcoming Encounters Date Type Department Care Team (Latest Contact Info) Description 09/06/2024 12:30 PM CDT Hospital Encounter [facility] [address] [place] [phone] Geoffrey Shaver MD [address] [address] David Brewer MD [address] [address] Pancreatic mass; Elevated liver function tests 09/06/2024 12:30 PM CDT - 09/06/2024 1:00 PM CDT Surgery [facility] [address] [place] [phone] David Brewer MD [address] [address] EUS (+/- ERCP) [GI509] Pending Results Name Type Priority Associated Diagnoses Date /Time CT Body Outside Consult Imaging Routine Diagnosis unknown 09/05/2024 1:04 PM CDT Scheduled Orders Name Type Priority Associated Diagnoses Orde r Schedule CT Body Outside Consult Imaging Routine Diagnosis unknown Once for 1 Occurrences starting 09/05/2024 until 09/05/2024 documented as of this encounter Visit Diagnoses Diagnosis Pancreatic mass Unspecified disease of pancreas Elevated liver function tests Other abnormal blood chemistry Diagnosis unknown Pancreatic mass Unspecified disease of pancreas Elevated liver function tests Other abnormal blood chemistry documented in this encounter Care Teams Toggle Press Folder And Feeder Relationship Specialty Start Date End Date Linette Yepez MD [address] [place] [address] PCP - General Family Medicine 11/06/22 Arianna Persaud PA [address] [place] [address] Physician Supervisor Mold Shop 08/29/24 documented as of this encounter
--- OUTSIDE RECORDS SUMMARY | 2024-09-05 13:52 | XMS_ITS | Clinical Summary ---
Author Organization [facility] Address [address] [place] [address] Care Team Providers Care Power Plant Operator Name Role Phone Linette Yepez MD Primary Care Provider Arianna Persaud PA Unavailable +1- [phone] Allergies Active Allergy Reactions Criticality Noted Date [...] 06/21/2022 Assessment & Plan (06/21/2022 7:25 PM RIG MANAGER): Worsening after of her mother in 04/2022. Feels more anxiety than depression. Admits panic attacks. Reluctant to start daily medication, don't want to feel trapped into taking medicine. Will Rx BuSpar as directed. Encouraged relaxation techniques such as deep breathing and guided imagery. Keep follow as scheduled, sooner if needed. Diarrhea 06/20/2022 Assessment & Plan (06/21/2022 7:16 PM RIG MANAGER): Ongoing for approximately 1 week after finishing a course of cefdinir for UTI. No more urinary symptoms or abdominal pain. No acute findings on exam. Will order CDiff test. Advised on Bowel rest: push fluids, bland high fiber diet. Continue immodium if needed. Vulvovaginitis 06/20/2022 Assessment & Plan (06/21/2022 7:17 PM RIG MANAGER): S/p cefdinir course for UTI. Denies discharge or genital lesions. exam deferred per pt request. Rxd Diflucan as directed. Use mild non-fragrant soaps/lotions. Recurrent UTI 06/08/2022 Assessment & Plan (06/08/2022 2:35 PM RIG MANAGER): Currently on Abx for treatment. Patient [...] 12/23/2021 Assessment & Plan (06/21/2022 7:12 PM RIG MANAGER): BP stable in office today on current therapy. Continue current regimen and low salt diet. Stay hydrated. Assessment & Plan (06/08/2022 2:36 PM RIG MANAGER): Chronic and mildly elevated. Goal < [...] 12/23/2021 Assessment & Plan (06/08/2022 2:35 PM RIG MANAGER): Chronic and stable. 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 with field account manager Assessment & Plan (12/23/2021 12:10 PM CDT): [...] Description 09/05/2024 1:04 PM CDT Hospital Encounter [facility]) [address] [place] [address] Diagnosis unknown 09/04/2024 Telephone [facility] Cardiology [address] [facility] [address] [phone] Onesimo George MD 09/04/2024 Telephone [facility] Gastroenterology [address] [facility] [address], [address] [place] [address] Carmen Ordonez LPN GI Preprocedure 09/03/2024 Telephone [facility] Advanced [facility] ([facility]) - [facility] Minimally Invasive Surgery [address] [place] [address] Advanced Medicine 12th [place], [place] [address] Daisy Mercado MD Medical Question/Miscellaneo us 09/02/2024 Orders Only [facility] Surgery [address] [facility] [address] [place] [address] Ana Sánchez PA Pancreatic mass [...] (HCC) Atrial fibrillation Lt hip replacement// JVR 2012 Lt hip replacement// JVR Ambulates with cane [...] doctor or pharmacy Never 04/11/2023 [facility] Utilities Answer Date Recorded In the past 12 months has e electric, gas, oil, or water [employer] threatened to shut off services in [...] 02/27/2023 How often do you attend chur Loxo Oncology or sikhism services? Never 02/27/2023 Do you belong to any clubs o r organizations such as mormonism groups, unions, fraternal or athletic groups, or [...] place to sleep or slept in a snf (including now)? No 02/27/2023 Personal Safety Answer Date Recorded Have you ever been in or are you currently in a harmful physical or emotional relationship or is someone making you feel afraid or unsafe? Denies 02/25/2023 Comments No Sex and Gender Information Value Date Recorded Sex Assigned at Not on file Legal Sex Female 6:30 PM RIG MANAGER Gender Identity Not on file Sexual Orientation Not on file Obstetrics History Last Filed Vital Signs Vital Sign Reading Time Taken Comments Blood Pressure 118/70 09/19/2023 10:02 AM CDT Pulse 56 09/19/2023 10:02 AM CDT Temperature 36.2 C (97.2 F) 04/11/2023 12:53 PM RIG MANAGER Respiratory Rate 14 09/19/2023 10:02 AM CDT Oxygen Saturation 97% 05/22/2023 1:37 PM RIG MANAGER Inhaled Oxygen Concentration - - Weight 69.4 kg (153 lb) 09/19/2023 10:02 AM CDT Height 160 cm (5' 3 ) 09/19/2023 10:02 AM CDT Body Mass Index 27.1 09/19/2023 10:02 AM CDT Plan of Treatment Upcoming Encounters Date Type Department Care Team (Latest Contact Info) Description 09/06/2024 12:30 PM CDT Hospital Encounter [facility] [address] [place] [phone] Geoffrey Shaver MD [address] [address] David Brewer MD [address] [address] Pancreatic mass; Elevated liver function tests 09/06/2024 12:30 PM CDT - 09/06/2024 1:00 PM CDT Surgery [facility] [address] [place] [address] [phone] David Brewer MD [address] [address] EUS (+/- ERCP) [GI509] Health Maintenance Due [...] 15, 02/21/2009 Insurance MEDICARE ADVANTAGE MEDICARE ADVANTAGE [facility] MEDICARE ADVANTAGE Advance Directives For more information, please contact: [phone] * Full Code (Latest Code Status on File) Date Activated Date Inactivated Comments 02/25/2023 1:22 PM 02/28/2023 7:54 PM * Full Code Date Activated Date Inactivated Comments 11/07/2022 2:00 AM 11/08/2022 7:29 PM Care Teams Power Plant Operator Relationship Specialty Start Date End Date Linette Yepez MD [address] [facility] [address] [place] [address] PCP - General Family Medicine 11/06/22 Arianna Persaud PA [address] [facility] [address] [place] [address] Physician Belt Builder Helper 08/29/24
--- OUTSIDE RECORDS SUMMARY | 2024-09-05 13:52 | XMS_ITS | Clinical Summary ---
Author Organization [facility] Address [address] [facility] [place] [address] Care Team Providers Care Imaging System Administrator Name Role Phone Aury Joseph RN Unavailable [phone] Dar Stinson MD Unavailable Linette Yepez MD Primary Care Provider + Source Comments [facility],non-owned Affiliates and Associated Physician Practices is amultiple site organization consisting of ambulatory clinics and hospital sitesin [place], [place], [place] and [place]. This disclosure is being madepursuant to the Care Everywhere program and may not contain all information available regarding this patient. 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 [employer] Not on file Not on file Not on file Last Filed Vital Signs Vital Sign Reading Time Taken Comments Blood Pressure 106/74 06/16/2021 10:41 AM COLD STORAGE WORKER Pulse 60 06/16/2021 10:41 AM COLD STORAGE WORKER Temperature 36.2 C (97.2 F) 06/16/2021 10:41 AM COLD STORAGE WORKER Respiratory Rate 20 06/16/2021 10:41 AM COLD STORAGE WORKER Oxygen Saturation 97% 06/16/2021 10:41 AM COLD STORAGE WORKER Inhaled Oxygen Concentration - - Weight 72.6 kg (160 lb) 06/16/2021 10:41 AM COLD STORAGE WORKER Height 160 cm (5' 3 ) 06/16/2021 10:41 AM COLD STORAGE WORKER Body Mass Index 28.34 06/16/2021 10:41 AM COLD STORAGE WORKER Plan of Treatment Health Maintenance Due Date [...] < 140/90 Blood Pressure 106/74(2021 10:41 AM COLD STORAGE WORKER) Nae Montanez MA Medical Devices Implanted Type Area Case Investigator Device Identifier Shelf Expiration Date Model / Serial / Lot Shell Coat 3hole 54mm Implanted:Qty: 1 on 11/21/2013 by Francis Cortes MD at [facility] Right: Hip [employer] 08/16/2023 [id number] / / [id number] Linr Acetab Refl Xlpe 0deg 36mm X 54mm Implanted:Qty: 1 on 11/21/2013 by Francis Cortes MD at [facility] Right: Hip [employer] 10/15/2023 [id number] / / [id number] Spherical Head Screw 6.5mm Cancellous Implanted:Qty: 1 on 11/21/2013 by Francis Cortes MD at [facility] Right: Hip [employer] 05/17/2023 [id number] / / [id number] Standard Offset Fixed Neck Stikitite Coated Stem Feoral Coponent Implanted:Qty: 1 on 11/21/2013 by Francis Cortes MD at [facility] Right: Hip [employer] 06/14/2023 [id number] / / [id number] 03/30 Taper Femoral Head Implanted:Qty: 1 on 11/21/2013 by Francis Cortes MD at [facility] Right: Hip [employer] 12/14/2022 [id number] / / [id number] Bill Only H1 Uncem Metal Or Ceramic Implanted:Qty: 1 on 11/21/2013 by Francis Cortes MD at [facility] [employer] H1 BILL ONLY [...] 1:06 PM CDT Narrative Resulting Agency Comment [facility] [address] [facility] [id number] Feliciano Oliver MD LAB - CHEMISTRY ORDERABLES Fin al Result [facility] ACCOUNT BILL [address] [place] [address] * MAMMO SCREENING DIGITAL IMAGE BILAT (09/09/2014 5:05 PM CDT) Anatomical Region Laterality Modality Breast Bilateral Mammography 09/10/2014 5:08 PM CDT Impressions 09/10/2014 5:09 PM CDT No mammographic evidence of malignancy in either breast. ASSESSMENT: BIRADS Category 1: Negative. RECOMMENDATION: Bilateral screening mammogram in one year. Thank you for allowing us to participate in the care of your patient. [facility] [place] utilizes PhaseRx as a reminder system to notify patients of their next recommended mammogram. Narrative 09/10/2014 5:09 PM CDT EXAMINATION: Digital screening mammogram on 09/09/2014. Computer assisted detection was utilized. PRIOR: Mammogram from [facility] in 09/28/2006. FINDINGS: Breast parenchymal density: The [...] offers HCV Ab w/Reflex to Verification test #[id number]. Blood specimen (specimen) BLOOD SPECIMEN / Unknown 08/09/2013 8:53 AM CDT 08/09/2013 12:57 PM CDT Narrative Resulting Agency Comment [facility] [address] [facility] [id number] Feliciano Oliver MD LAB - CHEMISTRY ORDERABLES Fin al Result [facility] ACCOUNT BILL [address] [place] [address] from Last 3 Months or Most Recently Relevant to Health Maintenance Insurance MANAGED MEDICARE ADV MANAGED MEDICARE ADV Advance Directives * Full Code (Latest Code Status on File) Date Activated Date Inactivated Comments 11/21/2013 12:38 PM 11/24/2013 6:31 PM * Full Code Date Activated Date Inactivated Comments 02/18/2009 10:26 AM 02/22/2009 1:32 AM Care Teams Imaging System Administrator Relationship Specialty Start Date End Date Linette Yepez MD [address] [place] [address] PCP - General Family Medicine 01/09/20 Aury Joseph, RN Wet Cotton Feeder 11/22/13 [place] [address] [address] Orthopedic Surgery 12/27/13
--- OUTSIDE RECORDS SUMMARY | 2024-09-05 13:52 | XMS_ITS | Encounter Summary ---
Author Organization [facility] [address] [place] [address] Care Team Providers Care Manager Domestic Name Role Phone Linette Yepez MD Primary Care Provider [phone]- [phone] Reason for Visit * Reason Onset Date Comments MEDICAL MANAGEMENT 04/13/2020 JENNIFER W/ RAVI Nettles/ [facility]OSP[facility] Encounter Details Date Type Department Care Team ([facility] st Contact Info) Description 04/13/2020 Telephone [facility] Admitting [address] [place] [address] [place] [id number] [place] [address] [place] [address] MEDICAL MANAGEMENT (JENNIFER Nettles/ RAVI Nettles/ HOSPITALIST [...] COVID-19? No / Unsure 04/13/2020 6:46 AM CHEMISTRY LAB INSTRUCTOR documented as of this encounter Plan of Treatment Not on file documented as of this encounter Visit Diagnoses Not on filedocumented in this encounter Care Teams Manager Domestic Relationship Specialty Start Date End Date Linette Yepez MD PCP - General Family Practice 04/01/20 documented as of this encounter
--- OUTSIDE RECORDS SUMMARY | 2024-09-05 13:52 | XMS_ITS | Clinical Summary ---
Author Organization [facility] Address [address] [place] [address] Phone Care Team Providers Care Aircraft Quality Control Inspector Name Role Phone Linette Yepez MD Primary Care Provider +1- [phone] Allergies Active Allergy Reactions Criticality Noted Date [...] mg by mouth 2 times daily. rx [id number] Active NIFEdipine CR (PROCARDIA-XL) 30 MG TABLET SR 24 HR Take 30 mg by mouth daily. rx [id number] Active Buprenorphine HCl (Belbuca) 600 MCG FILM Take 1 Film by mouth 2 times daily. rx [id number] Active hydrOXYzine (ATARAX) 25 MG Tablet Take 25 mg by mouth 3 times daily as needed for Itching or Nausea (vomiting). rx [id number] Active famotidine (PEPCID) 20 MG Tablet Take 20 mg by mouth daily. rx [id number] Active traMADol (ULTRAM) 50 MG Tablet take [...] Department Care Team Description 08/09/2024 Results Follow-Up [facility] [address] [place] [address] Norma Clark, DISTRICT RECRUITER, PRIMARY COUNSELOR POCT UA AUTOMATED W/O MICRO, CULTURE, URINE 08/07/2024 1:20 PM CDT Urgent Care Visit [facility] [address] [place] [phone] Amrita Vee APRN, LORETTA Diarrhea, unspecified type (Primary Dx); Dysuria Discharge Disposition: Discharged to home or Selfcare 08/07/2024 Travel 07/13/2024 Results Follow-Up [place] [phone] Norma Clark APRN, LORETTA POCT UA AUTOMATED W/O MICRO, CULTURE, URINE 07/11/2024 1:30 PM CDT Urgent Care Visit [facility] [address] [facility] [place] [address] Connie Sharma APRN, LORETTA Acute [...] Distal Urethral Contaminants 08/08/2024 11:53 PM CDT [facility] Culture URINE SPECIMEN / Unknown Non-Phlebotomy Collection / Unknown 08/07/2024 1:53 PM CDT 08/07/2024 1:53 PM CDT Amrita Vee APRN, CNP MICROBIOLOGY - GENERAL ORDERABLES Final Result [facility] [address] [place] [address], [place] * POCT UA AUTOMATED W/O MICRO [...] mg/dL POC URINE BLOOD INSTRUMENT Negative Negative Vingesh/uL POC URINE COLOR Yellow POC URINE CLARITY Clear Urine 08/07/2024 1:31 PM CDT Amrita Vee APRN, CNP POINT OF CARE T ESTING (MANUAL) Final Result from Last 3 Months Insurance [facility]ICARE [facility] Advance Directives * Full Code (Latest Code Status on File) Date Activated Date Inactivated Comments 12/27/2023 9:36 AM Care Teams Aircraft Quality Control Inspector Relationship Specialty Start Date End Date Linette Yepez MD [address] [facility] [address] [place] [id number] PCP - General Family Medicine 12/08/23
[2024-09-05 15:06] LABS: Toxigenic C. Diff NEGATIVE (NEGATIVE)
== END 2024-09-05 13:49 | disposition home or self-care (01) ==
PROVIDERS: PCP Physician Assistant; Visit Provider Nurse Practitioner
DX: K52.9 Noninfective gastroenteritis and colitis, unspecified (principal)
CPT/HCPCS: 82653; 83993; 87493

== ENCOUNTER 2024-09-14 11:45 | Outpatient (CLI) | payer MEDICARE, SELFPAY ==
--- OUTSIDE RECORDS SUMMARY | 2024-09-14 11:51 | XMS_ITS | Clinical Summary ---
Author Organization [facility] Address [address] [place] [address] Phone Care Team Providers Care Control Systems Designer Name Role Phone Linette Yepez MD Primary Care Provider [phone]- [phone] Allergies Active Allergy Reactions Criticality Noted Date [...] 90 mL 360 mL 04/14/2020 2:38 PM ACADEMIC ADMINISTRATOR 0 Active ondansetron (Zofran ODT) 8 mg Tablet, Rapid Dissolve Dissolve 1 Tablet (8 mg) by mouth every 8 hours as needed for nausea or vomiting. 20 Tablet 2 04/14/2020 2:38 PM ACADEMIC ADMINISTRATOR 0 Active Active Problems Problem Noted Date [...] Comments Blood Pressure 168/83 04/14/2020 7:59 AM ACADEMIC ADMINISTRATOR Pulse 61 04/14/2020 7:59 AM ACADEMIC ADMINISTRATOR Temperature 36.8 C (98.2 F) 04/14/2020 7:59 AM ACADEMIC ADMINISTRATOR Respiratory Rate 18 04/14/2020 7:59 AM ACADEMIC ADMINISTRATOR Oxygen Saturation 98% 04/14/2020 7:59 AM ACADEMIC ADMINISTRATOR Inhaled Oxygen Concentration - - Weight 108.2 kg (238 lb 9.6 oz) 04/13/2020 7:05 AM ACADEMIC ADMINISTRATOR Height 160 cm (5' 3) 04/13/2020 7:05 AM ACADEMIC ADMINISTRATOR Body Mass Index 42.27 04/13/2020 7:05 AM ACADEMIC ADMINISTRATOR Plan of Treatment Health Maintenance Due Date [...] Tdap) 03/19/2024 Medical Devices Implanted Type Area Senior Qa Tester Device Identifier Shelf Expiration Date Model / Serial / Lot Seamguard Endogia 60 Prpl [id number] - [id number] Implanted:Qty : 2 on 04/13/2020 by Hong Bryant MD at [facility] N/A: Abdomen [employer] 12/02/2022 [id number] / / [id number] Seamguard Endogia 60 Blk [id number] - [id number] Implanted:Qty : 1 on 04/13/2020 by Hong Bryant MD at [facility] N/A: Abdomen [employer] 08/19/2022 [id number] / / [id number] Insurance RX [employer] RX Member Subscriber Plan / Payer (Ef fective 2016-Present) Name:Raman Susannah A Relation to Subscriber:Self Name:Raman Susannah A Payer ID:Not on file Group ID:[id number] Type:RX Medicare Part D Address: [address] Advance Directives For more information, please contact: [phone] * Full Code (Latest Code Status on File) Date Activated Date Inactivated Comments 04/13/2020 1:09 PM 04/14/2020 5:55 PM Care Teams Control Systems Designer Relationship Specialty Start Date End Date Linette Yepez MD PCP - General Family Practice 04/01/20
--- OUTSIDE RECORDS SUMMARY | 2024-09-14 11:51 | XMS_ITS | Encounter Summary ---
Author Organization [facility] Address [address] [place] [address] Phone Care Team Providers Care [employer] Dies Name Role Phone Linette Yepez MD Primary Care Provider [phone]- [phone] Encounter Details Date Type Department Care Team (Late st Contact Info) Description 07/13/2024 Results [facility] [place] [address] [place] [address] Norma Clark, PRODUCT SAFETY AND STANDARDS ENGINEER, LOSS PREVENTION SUPERVISOR [address] [place] [address] POCT UA AUTOMATED W/O MICRO, [...] on filedocumented in this encounter Care Teams [employer] Dies Relationship Specialty Start Date End Date Linette Yepez MD [address] [facility] [address] [place] [id number] PCP - General Family Medicine 12/08/23 documented as of this encounter
--- OUTSIDE RECORDS SUMMARY | 2024-09-14 11:51 | XMS_ITS | Clinical Summary ---
Author Organization [facility] Address [address] [place] [address] Care Team Providers Care Supervisor Cutting Department Name Role Phone Arianna Persaud Unavailable [phone] Leonidas Rubio MD Primary Care Provider Allergies Active Allergy [...] for wheezing Active syringe with needle (Syringe 3cc/25Gx1) 3 mL 25 gauge x 1 syringe [...] 06/21/2022 Assessment & Plan (06/21/2022 7:25 PM [employer] DESIGNER): Worsening after of her mother in 04/2022. Feels more anxiety than depression. Admits panic attacks. Reluctant to start daily medication, don't want to feel trapped into taking medicine. Will Rx BuSpar as directed. Encouraged relaxation techniques such as deep breathing and guided imagery. Keep follow as scheduled, sooner if needed. Diarrhea 06/20/2022 Assessment & Plan (06/21/2022 7:16 PM [employer] RET[employer] DESIGNER): Ongoing for approximately 1 week after finishing a course of cefdinir for UTI. No more urinary symptoms or abdominal pain. No acute findings on exam. Will order CDiff test. Advised on Bowel rest: push fluids, bland high fiber diet. Continue immodium if needed. Vulvovaginitis 06/20/2022 Assessment & Plan (06/21/2022 7:17 PM [employer] DESIGNER): S/p cefdinir course for UTI. Denies discharge or genital lesions. exam deferred per pt request. Rxd Diflucan as directed. Use mild non-fragrant soaps/lotions. Recurrent UTI 06/08/2022 Assessment & Plan (06/08/2022 2:35 PM [employer] DESIGNER): Currently on Abx for treatment. 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 Continue current regimen and low salt diet. Stay hydrated. Assessment & Plan (06/08/2022 2:36 PM [employer] RET[employer] DESIGNER): Chronic and mildly elevated. Goal < 130/80. [...] 12/23/2021 Assessment & Plan (06/08/2022 2:35 PM [employer] RET[employer] DESIGNER): Chronic and stable. 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 with csm consultant Assessment & Plan (12/23/2021 12:10 PM [...] Encounters Date Type Department Care Team Description 09/13/2024 12:53 PM CDT - 09/13/2024 11:59 PM CDT Hospital Encounter [facility] [address] [place] [phone] Pancreatic mass Discharge Disposition: Discharge to home or self care 09/13/2024 Orders Only [facility] Surgery [address] [place] [phone] Ana Sánchez PA Liver lesion (Primary Dx) 09/13/2024 Orders Only [facility] Gastroenterology [address] [place] [address] Medical Office Building [address], [address] [place] [phone] David Brewer MD Elevated liver function tests (Primary Dx) 09/12/2024 Telephone [facility] Gastroenterology [address] [place] [address] Medical Office [address], [address] [place] [phone] Arlyn Segovia, family law attorney call 09/12/2024 Orders Only [facility] Gastroenterology [address] [place] [address] [address], [address] [place] [address] Arlyn Segovia, RN Pancreatic mass (Primary Dx) 09/11/2024 Results Follow-Up [facility] Gastroenterology [address] [place] [address] [address] [place] [address] David Brewer MD Surgical pathology 09/11/2024 Telephone [facility] Surgery [address] [place] [phone] Susan Marroquin RN 09/06/2024 1:07 PM CDT Anesthesia Event [facility] [address] [place] [phone] Wayne Nicholson MD 09/06/2024 12:30 PM CDT - 09/06/2024 1:00 PM CDT Surgery [facility] [address] [place] [phone] David Brewer MD ESOPHAGOGASTRODUODENOSCOPY ULTRASOUND GUIDE LIMITED 09/06/2024 11:07 AM CDT - 09/06/2024 4:10 PM CDT Hospital Encounter [facility] [address] [place] [phone] Geoffrey Shaver MD Das, Koushik Kumar, MD Pancreatic mass; Elevated liver function tests Discharge Disposition: Discharge to home or self care 09/06/2024 10:35 AM CDT Lab [facility] Outpatient Lab [address] [place] [phone] Pancreatic mass; Elevated liver function tests 09/06/2024 6:50 AM CDT - 09/06/2024 11:59 PM CDT Hospital Encounter [facility] [address] [place] [phone] Upper abdominal pain Discharge Disposition: Discharge to home or self care 09/06/2024 Orders Only [facility] [address] [place] [phone] David Brewer MD 09/05/2024 1:04 PM CDT - 09/05/2024 11:59 PM CDT Hospital Encounter [facility] [address] [place] [phone] Diagnosis unknown Discharge Disposition: Discharge to home or self care 09/04/2024 Telephone [facility] [address] [place] [phone] Onesimo George MD cardiac clearance 09/04/2024 Telephone [facility] Gastroenterology [address] Medical Office [address], [address] [place] [phone] Carmen Ordonez LPN GI Preprocedure 09/03/2024 Telephone [facility] Minimally Invasive Surgery [address], [place] [phone] Daisy Mercado MD Medical Question/Miscellaneous 09/02/2024 Orders Only 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 Sutherland tonsilectomy 1960 tonsilectomy ophrectomy 1960 ophrectomy Osteoarthritis Osteoarthritis Hypertension Hypertension Atrial fibrillation (HCC) Atrial fibrillation Lt hip replacement// JVR 2011 Lt hip replacement// JVR Ambulates with cane Acute cystitis with hematuria NOMI (obstructive sleep apnea) S/P laparoscopic sleeve gastrectomy UTI (urinary tract infection) Anxiety Neck injury Family History Medical History Relation Name Comments [...] often do you attend chur ch or worship services? Never 02/27/2023 Do you belong to any clubs o r organizations such as temple groups, unions, fraternal or athletic groups, or [...] place to sleep or slept in a [place] (including now)? No 02/27/2023 Personal Safety Answer Date Recorded Have you ever been in or are you currently in a harmful physical or emotional relationship or is someone making you feel afraid or unsafe? Denies 09/06/2024 Comments No Sex and Gender Information Value Date Recorded Sex Assigned at Not on file Legal Sex Female 6:30 PM [employer] DES[employer]ER Gender Identity Not on file Sexual Orientation Not on file Obstetrics History Last Filed Vital Signs Vital Sign Reading Time Taken Comments Blood Pressure 107/86 09/06/2024 3:45 PM CDT Pulse 66 09/06/2024 3:45 PM CDT Temperature 36.2 C (97.2 F) 09/06/2024 12:18 PM CDT Respiratory Rate 20 09/06/2024 3:45 PM CDT Oxygen Saturation 99% 09/06/2024 3:45 PM CDT Inhaled Oxygen Concentration - - Weight 55.3 kg (122 lb) 09/06/2024 12:18 PM CDT Height 160 cm (5' 3) 09/06/2024 12:18 PM CDT Body Mass Index 21.61 09/06/2024 12:18 PM CDT Plan of Treatment Upcoming Encounters Date Type Department Care Team (Latest Contact Info) Description 09/19/2024 9:30 AM CDT Hospital Encounter [facility] [address] [place] [address] David Brewer MD [address] [place] [address] Pancreatic mass 09/19/2024 9:30 AM CDT - 09/19/2024 10:30 AM CDT Surgery [facility] [address] [place] [phone] David rBewer MD [address] [place] [address] [place] Endoscopy/bx/hh [GI509] Health Maintenance Due Date Last Done [...] Vaccine (Season Ended) 2024 01/16/20 15, 02/21/2009 Medical Devices Implanted Type Area Door Builder Device Identifier Shelf Expiration Date Model / Serial / Lot Conmed Chris Viabil 10mm X 6cm Shortwire [id number] - [id number] - [id number] Implanted:Qty: 1 on 09/06/2024 by David Brewer MD at [facility] Stent N/A: Bile Duct Conmed Chris 06/19/2027 [id number] / [id number] / Procedures Procedure Name Priority Date/Time Associated Diagnosis Comments CT CHEST W AND ABDOMEN PELVI S W WO CONTRAST (C) Schedule Routine, Read Routine (OP Routine) 09/13/2024 1:27 PM CDT Pancreatic mass ERCP IP Routine 09/06/2024 1:48 PM CDT Pancreatic mass Elevated liver function tests FL ERCP BILIARY DUCT Schedule Routine, Read Routine (OP Routine) 09/06/2024 1:42 PM CDT Upper abdominal pain SURGICAL PATHOLOGY Routine 09/06/2024 1:25 PM CDT ESOPHAGOGASTRODUODENOSCOPY ULTRASOUND GUIDE LIMITED 09/06/2024 1:07 PM CDT Pancreatic mass Elevated liver function tests ERCP 09/06/2024 1:03 PM CDT UPPER EUS 09/06/2024 1:02 PM CDT HEPATIC FUNCTION PANEL STAT 10:50 AM CDT Pancreatic mass Elevated liver function tests CT BODY OUTSIDE CONSULT Routine 09/06/19 1:04 PM CDT Diagnosis unknown from Last 3 Months Results * CT Chest W and Abdomen Pelvis W WO Contrast (C) (09/13/2024 1:27 PM CDT) Anatomical Region Laterality Modality Body N/A Computed Tomogra phy 09/13/2024 2:35 PM CDT Impressions 09/13/2024 2:49 PM CDT 1. Pancreatic head mass with complete encasement and occlusion of the superior mesenteric vein, encasement of the superior mesenteric artery that is patent and 180 degrees involvement of the celiac artery. Abutment of the left renal vein. 2. Liver lesion surrounded by a larger area of hypoattenuation, suspicious for metastasis versus abscess; recommend further evaluation with MRI. 3. Small-volume ascites and suggestion of peritoneal nodularity along the left paracolic gutter which could suggest metastasis. 4. Diffuse colonic thickening concerning for infectious/inflammatory colitis; recommend correlation with physical and laboratory examinations. Dictated by: Jackie Smart M.D. The radiology attending physician has personally reviewed this study, and had reviewed and/or edited this written report and agrees with it. Electronically signed by: Segun Bailey M.D. Narrative 09/13/2024 2:49 PM CDT EXAMINATION: 1. Computed tomography of the chest with intravenous contrast 2. Computed tomography of the abdomen and pelvis with and without intravenous contrast HISTORY: 73-year-old female, pancreatic mass. Surgical evaluation. TECHNIQUE: Transaxial computed tomographic images of the abdomen and pelvis were obtained without intravenous contrast, followed by images of the chest, abdomen and pelvis, after the uneventful administration of 120 mL Opti-Ray 350 intravenous contrast according to the pancreas protocol. COMPARISON: Comparison is made to previous examination dated 08/28/2024. FINDINGS: Chest: There is a 5 mm nodule of the right lower lobe of the lung, unchanged from comparison examination dated 08/28/2024 (5:93). Additionally noted is a granuloma of the left lower lobe of the lung. Lungs are otherwise clear, without pleural effusion or pneumonic consolidation. There is no hilar, mediastinal, axillary, or supraclavicular lymphadenopathy. Heart size is normal. Abdomen/Pelvis: There is a large infiltrative mass of the pancreatic head with dilatation of the main pancreatic duct and atrophy of the pancreatic body and tail secondary to obstruction (4:138). This mass encases and obstructs the proximal to mid superior mesenteric artery, and compresses the adjacent left renal vein and duodenum. 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 The tumor abuts the inferior celiac artery but does not entirely encase it. There is no gastric outlet obstruction. There has been interval placement of a metallic common bile duct stent with new pneumobilia and gas in the gallbladder. There is mild mucosal enhancement of the gallbladder wall. Additionally noted is mild intrahepatic biliary ductal dilatation. There is a small, rounded low-attenuation lesion in hepatic segment II which measures 7 mm situated within the larger focus of hypoattenuation. Additionally noted is a hypoattenuating segment within segment IV, nonspecific. Normal appearance of the hepatic and portal veins. No evidence of hemorrhagic lesion. There are scattered bilateral renal cysts. The kidneys are otherwise symmetric and size and attenuation. Postsurgical changes of gastric resection. No findings concerning for small or large bowel obstruction. There is diffuse colonic wall thickening, which may represent colitis. There is thickening and nodularity of the peritoneum, as may be seen in the left paracolic gutter (4:162). Small-volume intra-abdominal ascites. There is no definite inguinal or retroperitoneal lymphadenopathy. The urinary bladder not seen secondary to beam-hardening artifact. Scattered vertebral sclerotic lesions, indeterminate but may be degenerative in origin. Procedure Note Segun Bailey MD PhD - 09/13/2024 EXAMINATION: 1. Computed tomography of the chest with intravenous contrast 2. Computed tomography of the abdomen and pelvis with and without intravenous contrast HISTORY: 73-year-old female, pancreatic mass. Surgical evaluation. TECHNIQUE: Transaxial computed tomographic images of the abdomen and pelvis were obtained without intravenous contrast, followed by images of the chest, abdomen and pelvis, after the uneventful administration of 120 mL Opti-Ray 350 intravenous contrast according to the pancreas protocol. COMPARISON: Comparison is made to previous examination dated 08/28/2024. FINDINGS: Chest: There is a 5 mm nodule of the right lower lobe of the lung, unchanged from comparison examination dated 08/28/2024 (5:93). Additionally noted is a granuloma of the left lower lobe of the lung. Lungs are otherwise clear, without pleural effusion or pneumonic consolidation. There is no hilar, mediastinal, axillary, or supraclavicular lymphadenopathy. Heart size is normal. Abdomen/Pelvis: There is a large infiltrative mass of the pancreatic head with dilatation of the main pancreatic duct and atrophy of the pancreatic body and tail secondary to obstruction (4:138). This mass encases and obstructs the proximal to mid superior mesenteric artery, and compresses the adjacent left renal vein and duodenum. 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 The tumor abuts the inferior celiac artery but does not entirely encase it. There is no gastric outlet obstruction. There has been interval placement of a metallic common bile duct stent with new pneumobilia and gas in the gallbladder. There is mild mucosal enhancement of the gallbladder wall. Additionally noted is mild intrahepatic biliary ductal dilatation. There is a small, rounded low-attenuation lesion in hepatic segment II which measures 7 mm situated within the larger focus of hypoattenuation. Additionally noted is a hypoattenuating segment within segment IV, nonspecific. Normal appearance of the hepatic and portal veins. No evidence of hemorrhagic lesion. There are scattered bilateral renal cysts. The kidneys are otherwise symmetric and size and attenuation. Postsurgical changes of gastric resection. No findings concerning for small or large bowel obstruction. There is diffuse colonic wall thickening, which may represent colitis. There is thickening and nodularity of the peritoneum, as may be seen in the left paracolic gutter (4:162). Small-volume intra-abdominal ascites. There is no definite inguinal or retroperitoneal lymphadenopathy. The urinary bladder not seen secondary to beam-hardening artifact. Scattered vertebral sclerotic lesions, indeterminate but may be degenerative in origin. IMPRESSION: 1. Pancreatic head mass with complete encasement and occlusion of the superior mesenteric vein, encasement of the superior mesenteric artery that is patent and 180 degrees involvement of the celiac artery. Abutment of the left renal vein. 2. Liver lesion surrounded by a larger area of hypoattenuation, suspicious for metastasis versus abscess; recommend further evaluation with MRI. 3. Small-volume ascites and suggestion of peritoneal nodularity along the left paracolic gutter which could suggest metastasis. 4. Diffuse colonic thickening concerning for infectious/inflammatory colitis; recommend correlation with physical and laboratory examinations. Dictated by: Jackie Smart M.D. The radiology attending physician has personally reviewed this study, and had reviewed and/or edited this written report and agrees with it. Electronically signed by: Segun Bailey M.D. Ana RODRIGUES [facility] CT PROCEDURES Final R esult * FL ERCP Biliary Duct (09/06/2024 1:42 PM CDT) Narrative [facility] - 09/06/2024 1:53 PM CDT The images from this study are not interpreted by Radiology. Please refer to the physician's procedure / OR operative note. David Brewer MD [facility] FLUOROSCOPY PROCEDURES Final Result [facility] * Surgical pathology (09/06/2024 1:25 PM CDT) Lymph node, needle biopsy 09/06/2024 1:25 PM CDT 09/10/2024 11:26 AM CDT Narrative 09/11/2024 3:14 PM CDT [address] [address] Tele: Roxana Gordon MD - Kiln Burner Note to Patients: This report may contain a detailed description of human tissue sent by a health care provider to the laboratory for pathologic evaluation. The content of this report is essential for diagnosis and may provide important critical findings. This information may be unfamiliar to patients to review without a medical professional present. It is advised that the patient review this report in the presence of a health care provider who can answer questions and explain the details. SURGICAL PATHOLOGY REPORT Patient Name: SUSANNAH GONCALVES Address: [address] [place] [address] Gender: F : 1950 (Age: 73) Service: Gastro Location: [facility], Hospital #: [id number] Patient Type: [facility] SAME DAY SURGERY Taken: 09/06/2024 Received 09/10/2024 Reported: 09/11/2024 Physician(s): Puma Wagner MD Jason E. Barnett, M.D. DIAGNOSIS: Pancreas, head, fine needle biopsies: - Focal atypical glands (see description) [facility]09/11/2024 15:14 Examining Pathologist: Alek Flowers M.D. Report Reviewed and Electronically Signed By Alek Flowers M.D. SPECIMEN TYPE: A: PANCREAS HEAD MASS CLINICAL IMPRESSION AND HISTORY: Suspected mass in pancreas on CT scan GROSS DESCRIPTION: Received in formalin in a single container with the patient's name, SUSANNAH GONCALVES labeled pancreas head mass and contains multiple red-brown irregular tissue fragments measuring 2.2 x 0.3 x 0.1 cm in aggregate. Due to the color and size of the specimen, eosin is used. The specimen is filtered and submitted entirely in cassette A1. JAP,CU MICROSCOPIC DESCRIPTION: Microscopic examination shows multiple fragments of pancreatic parenchyma. There are focal slightly irregular glands with minimal nuclear atypia. An immunostain for p53 shows wild type staining in these glands. There is no definitive malignancy identified. Clinical correlation and follow-up is needed. Clerical Data Follows A; 38075, [id number] REPORT IMAGES AND/OR SCANNED DOCUMENTS ONLY VIEWABLE IN PDF FORMAT The immunohistochemical test(s) cited in this report, if any, was developed and its performance characteristics determined by [facility] Pathology Department. It has not been cleared or approved by the U.S. Food and Drug Administration. The FDA has determined that such clearance or approval is not necessary. This test is used for clinical purposes. It should not be regarded as investigational or for research. [facility] Laboratory is certified under the Clinical Laboratory Improvement Amendments of 1988 (CLIA) as qualified to perform high complexity testing. Immunostains were performed on formalin-fixed paraffin embedded tissue using a polymer diaminobenzidine chromogen detection system. Antibodies used may include clone SP1 (rabbit monoclonal, estrogen receptor), clone 1E2 (rabbit monoclonal progesterone receptor), Ki-67 (rabbit monoclonal, 30-9), CD117 (rabbit polyclonal, c-kit), and anti-Her-2/sunny (4B5) (rabbit monoclonal primary antibody). In the event that immunohistochemistry or special stains have been performed, attending physician has confirmed appropriateness of controls. Frozen section, operating room consultation, gross examination and dissection, and case sign out may have been performed in part or completely in the following laboratories: [facility], [facility] [place] [address]. us David Brewer MD LAB PATHOLOGY ORDERABLES Fi nal Result * ERCP (09/06/2024 1:03 PM CDT) Anatomical Region Laterality Modality Other Narrative Procedure Note David Brewer MD - 09/06/2024 1:03 PM CDT ENDOSCOPY LAB Patient Name: Susannah Goncalves Procedure Date: 09/06/2024 1:03 PM Admit Type: Outpatient Room: [facility] 6 Date of : 1950 Instrument Name: TJF-[id number] Gender: Female Note Status: Finalized Procedure: ERCP Indications: Common bile duct stricture; CT with Pancreatic head mass and biliary stricture/dilation/obstruction. Jaundice, pruritus, icterus. Providers: David Brewer M.D. Referring MD: Daisy Mercado M.D., Leonidas Rubio M.D. Medicines: Monitored Anesthesia Care Complications: No immediate complications. Estimated blood loss:None Estimated Blood Loss: Estimated blood loss: none. Procedure: Pre-Anesthesia Assessment: - The risks and benefits of the procedure and the sedation options and risks were discussed with the patient. All questions were answered and informed consent was obtained. - Immediately prior to administration ofmedications, the patient was re-assessed for adequacy to receive sedatives. - The anesthesia plan was to use monitoredanesthesia care (MAC). The benefits, risks, and alternatives to theprocedure and sedation were discussed and informed consentwas obtained. The TJF-Q666 was introduced through the mouth, and used to inject contrast into and used to inject contrast into the bile duct. The ERCP was accomplished without difficulty. The patienttolerated the procedure well. Findings: The bin packer film was normal. The esophagus was successfully intubated under direct vision. The scope was advanced to a normal major papillain the descending duodenum without detailed examination of the pharynx, larynx and associated structures, and upper GI tract. Please seeEGD/EUS note for detailed discussion of upper endoscopic findings. A 0.025inch x 450 cm straight Visiglide wire was passed into the biliary tree.The short-nosed traction sphincterotome was passed over the guidewire and the bile duct was then deeply cannulated. Contrast was injected. I personally interpreted the bile duct images. There was brisk flow of contrast through the ducts. Image quality was excellent. Contrast extended to the cystic duct. Contrast extended to the entire biliary tree. Cholangiogram was obtained and demonstrated a severe, 3cm, malignant-appearing, shelf-like stricture of the distal bile ductwith upstream dilation of the CBD/CHD to 15m.. The intrahepatic ducts were mildly dilated. The cystic duct was noted to fill and the insertionwas identified, high on the bile duct. A 4 mm biliary sphincterotomy was made with a monofilament traction (standard) sphincterotome usingERBE electrocautery. The sphincterotomy oozed blood, which resolvedwithout intervention. One 10 mm by 6 cm covered metal stent (Viabil) wasplaced into the common bile duct across the stricture, taking care to deploy the proximal end, below the level of the presumed cystic ducttakeoff. Bile flowed through the stent. The stent was in good position. Impression: - Cholangiogram was obtained and demonstrated a severe, 3cm, malignant-appearing, shelf-likestricture of the distal bile duct with upstream dilation ofthe CBD/CHD to 15m.. The intrahepatic ducts were mildly dilated. The cystic duct was noted to fill and the insertion was identified, high on the bile duct. - Successful biliary sphincterotomy. - Successful placement of a 10mm x 6cm fullycovered metal biliary stent (Viabil) across the stricturewith drainage of contrast and bile. Recommendation: - Observe patient's clinical course followingtoday's ERCP with therapeutic intervention. - Watch for pancreatitis, bleeding, perforation,and cholangitis. - Repeat LFTs locally in 1 week. - Consider repeat ERCP in 12 months pendingclinical course with suspected new pancreatic cancerdiagnosis. - Resume Xarelto/blood thinner in 48 hours. - Please avoid NSAIDs (i.e Motrin, Aleve,Ibuprofen, Advil, Naproxen, etc) for the next 10-14 days. Ifyou are taking Aspirin 81mg (baby aspirin) for clear cardiovascular or neurologic indications, youshould continue this. - Resume home medications and diet. - Return to primary care physician as previously scheduled. - In the unusual situation that you developabdominal pain, bleeding or other significant problems in the days following this procedure please call my officeat [phone] ([phone]) to speak to my nurses. After hours and evenings please call [phone] speak to the GI fellow division traffic superintendent. Please tell themthat Dr. Brewer did your procedure and that your were instructed to have the fellow call me or thephysician covering for me to discuss the management of your condition. If you have an urgent problem, please goto the nearest emergency room and have the ER doctorcall my office during the day or [facility] transfer ([phone]) center after hours and weekends to arrange admission or transfer to our facility. Attending Participation: I personally performed the entire procedure. Electronically Signed By: David Brewer M.D. David Brewer M.D. 09/06/2024 2:48:23 PM This document was signed electronically. Number of Addenda: 0 Note Initiated On: 09/06/2024 1:03 PM Scope In: Scope Out: us David Brewer MD ENDOSCOPY PROCEDURES Edited Result - Final * Upper EUS (09/06/2024 1:02 PM CDT) Anatomical Region Laterality Modality Other Narrative Procedure Note David Brewer MD - 09/06/2024 1:02 PM CDT ENDOSCOPY LAB Patient Name: Susannah Goncalves Procedure Date: 09/06/2024 1:02 PM Admit Type: Outpatient Room: [facility] Date of : 1950 Instrument Name: -[id number] Gender: Female Note Status: Finalized Procedure: Upper EUS Indications: Suspected mass in pancreas on CT scan Providers: David Brewer M.D. Referring MD: Daisy Mercado M.D., Leonidas Rubio M.D. Medicines: Monitored Anesthesia Care Complications: No immediate complications. Estimated blood loss:None. Estimated Blood Loss: Estimated blood loss: none. Procedure: Pre-Anesthesia Assessment: - The risks and benefits of the procedure and the sedation options and risks were discussed with the patient. All questions were answered and informed consent was obtained. - Immediately prior to administration ofmedications, the patient was re-assessed for adequacy to receive sedatives. - The anesthesia plan was to use monitoredanesthesia care (MAC). The risks, benefits and alternatives were discussed and informed consent was obtained.The Endosonoscope was introduced through the mouth, and advanced tothe duodenal bulb The Endoscope was introduced throughthe mouth, and advanced to the second part ofduodenum Findings: ENDOSCOPIC FINDING: : The examined esophagus was normal. There was a small hiatal hernia. The patient is post a sleeve gastrectomy which ispatent/non-strictured but severely reduces the mobility of scope passage. The examined duodenum was normal. ENDOSONOGRAPHIC FINDING: : The esophagus, stomach and duodenum were visualizedendosonographically. EUS examination was challenging due to prior sleeve gastrectomy procedure making advancement of the EUS challenging and mobility severely restricted. Exam was limited largedly to trans-antral/bulbar views for the objective of tissue aquisition. In the head of the pancreas there was a ~3cm, hypoechoic, mass in the head of the pancreas with upstream dilation of the pancreatic ductand upstream dilation of the bile duct to 12mm. Fine needle aspirationfor histology was performed. Color Doppler imaging was utilized prior to needle puncture to confirm a lack of significant vascular structures within the needle path. Two passes were made with the 22 gaugeSharkcore needle using a transduodenal approach. A stylet was used. Final histology results are pending. A visible core of tissue wasobtained. There was dilation in the common bile duct which measured up to 12mm, terminating abruptly at the level of the pancreatic head mass. 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 Fluid, visualized as an anechoic feature, was found in the peritoneal cavity, particularly noted perihepatic. Impression: EGD: - Small hiatal hernia. No varices. - Post gastric sleeve. - Normal duodenum. EUS: - EUS examination was challenging due to priorsleeve gastrectomy procedure making advancement of the EUS challenging and mobility severely restricted. Examwas limited largedly to trans-antral/bulbar views forthe objective of tissue aquisition. - In the head of the pancreas there was a ~3cm, hypoechoic, mass in the head of the pancreas with upstream dilation of the pancreatic duct andupstream dilation of the bile duct to 12mm. Fine needle aspiration for histology was performed. - Prominent peribiliary varices. - Abdominal ascites, most notably perihepatic incidentally noted. Recommendation: - Observe patient's clinical course followingtoday's EUS with FNA - Await pathology. - Proceed with ERCP. - Watch for pancreatitis, bleeding, perforation. - Please avoid NSAIDs (i.e Motrin, Aleve,Ibuprofen, Advil, Naproxen, etc) for the next 10-14 days. Ifyou are taking Aspirin 81mg (baby aspirin) for clear cardiovascular or neurologic indications, youshould continue this. - Resume home medications and diet. - Return to primary care physician as previously scheduled. - In the unusual situation that you developabdominal pain, bleeding or other significant problems in the days following this procedure please call my officeat [phone] ([phone]) to speak to my nurses. After hours and evenings please call [phone] speak to the GI fellow division traffic superintendent. Please tell themthat Dr. Brewer did your procedure and that your were instructed to have the fellow call me or thephysician covering for me to discuss the management of your condition. If you have an urgent problem, please goto the nearest emergency room and have the ER doctorcall my office during the day or [facility] transfer ([phone]) center after hours and weekends to arrange admission or transfer to our facility. - Call my nurse Arlyn Segovia RN in the GI office at [phone] for your final results in 7 days. Attending Participation: I personally performed the entire procedure. Electronically Signed By: David Brewer M.D. David Brewer M.D. 09/06/2024 1:56:06 PM This document was signed electronically. Number of Addenda: 0 Note Initiated On: 09/06/2024 1:02 PM Scope In: Scope Out: us David Brewer MD ENDOSCOPY PROCEDURES Final Result * (ABNORMAL) Hepatic function panel (09/06/2024 10:50 AM CDT) Bilirubin, total 5.9(H) 0.1 - 1.2 mg/dL Bilirubin, direct 4.2(H) 0.1 - 0.3 mg/dL [facility] Protein, pl 5.5(L) 6.5 - 8.5 g/dL [facility] Albumin 3.0(L) 3.5 - 5.0 g/dL [facility] Alk phos 1,250(H) 40 - 130 Units/L [facility] ALT 143(H) 7 - 45 Units/L [facility] AST 190(H) 10 - 45 Units/L [facility] Blood 09/06/2024 10:5 0 AM CDT 09/06/2024 10:50 AM CDT [facility]ative [facility] - 09/06/2024 11:32 AM CDT STAT pre procedure lab same day us Geoffrey Shaver MD LAB BLOOD ORDERABLES Final Result [facility] [address] Department [place] [address] * CT Body Outside Consult (09/05/2024 1:04 PM CDT) Anatomical Region Laterality Modality Body N/A Computed Tomogra phy 09/05/2024 2:33 PM CDT Impressions 09/05/2024 2:33 PM CDT 1. Locally aggressive pancreatic head mass which obstructs the pancreatic and common ducts (with moderate intrahepatic biliary ductal dilatation) and encases and severely narrows the portal and splenic veins, encases the celiac axis, and encases the superior mesenteric artery. There is also some soft tissue stranding around the inferior mesenteric artery which could be some tumor. 2. Small volume ascites, potentially related to portal hypertension secondary to the severe narrowing/occlusion of the portal splenic veins. 3. Small indeterminate pulmonary nodule at the right lung base. 4. Incompletely distended colon with apparent thickening of the sigmoid colon and rectum. This could be related to underdistention or a proctocolitis. Recommend correlation with any potential symptoms. The findings, conclusions and recommendations within this report do not replace the initial findings, conclusions and recommendations made at the facility where the study was performed based upon the imaging and clinical condition at that time. Comparison with the prior report and clinical history is necessary. The provided images may or may not represent the [place] source data set and thus may contain changes that may lower the accuracy of this second-opinion interpretation. Electronically signed by: Mickey Martinez M.D. Narrative 09/05/2024 2:33 PM CDT EXAMINATION: RADIOLOGY CONSULTATION ON OUTSIDE IMAGING STUDY STUDY INITIALLY PERFORMED: 08/28/2024 at [facility] [place]. TYPE OF STUDY: Multiple CT images of the abdomen and pelvis with intravenous contrast are provided at the time of this interpretation. CONTRAST ROUTE: Intravenous The protocol was adequate to address the clinical question. The outside final report was not available at the time of this second opinion interpretation. TYPE OF CONSULTATION: Consult on outside imaging study with images submitted through Outside Image Sharing Service DATE OF CONSULTATION: 09/05/2024 2:06 PM HISTORY: Pancreatic mass COMPARISON: 02/24/2023 FINDINGS: There is a hypoattenuating mass in the head and uncinate process of the pancreas that extends along the root of the mesentery. This mass is difficult to measure, but is approximately 3.0 x 2.9 cm. The mass obstructs the pancreatic duct and there is atrophy of the body and tail of pancreas. The mass severely narrows and may completely occludes the portal splenic confluence. The central splenic vein is severely narrowed. There is encasement of the celiac axis and superior mesenteric artery. There is also some stranding around the inferior mesenteric artery. The mass obstructs the common duct resulting in moderate intrahepatic biliary ductal dilatation. No definite intrahepatic lesions. Gallbladder is normal. Spleen is normal. Adrenals are normal. Kidneys are normal with no hydronephrosis. There are postsurgical changes of sleeve gastrectomy. No duodenal obstruction. The duodenum is not definitely dilated. Spleen is normal. Adrenals are normal. No renal lesions or hydronephrosis. No retroperitoneal lymphadenopathy. There is small free intraperitoneal fluid. The colon is collapsed distally. There is some wall thickening of the sigmoid colon and rectum. No definite omental or mesenteric lesions. There is a small indeterminate nodule measuring 4 mm along the right hemidiaphragm at scanner position 20.5. There are small pleural effusions. No definite suspicious lytic or blastic lesions. There are bilateral total hip arthroplasties. Procedure Note Mickey Martinez MD - 09/05/2024 EXAMINATION: RADIOLOGY CONSULTATION ON OUTSIDE IMAGING STUDY STUDY INITIALLY PERFORMED: 08/28/2024 at [facility] [place]. TYPE OF STUDY: Multiple CT images of the abdomen and pelvis with intravenous contrast are provided at the time of this interpretation. CONTRAST ROUTE: Intravenous The protocol was adequate to address the clinical question. The outside final report was not available at the time of this second opinion interpretation. TYPE OF CONSULTATION: Consult on outside imaging study with images submitted through Outside Image Sharing Service DATE OF CONSULTATION: 09/05/2024 2:06 PM HISTORY: Pancreatic mass COMPARISON: 02/24/2023 FINDINGS: There is a hypoattenuating mass in the head and uncinate process of the pancreas that extends along the root of the mesentery. This mass is difficult to measure, but is approximately 3.0 x 2.9 cm. The mass obstructs the pancreatic duct and there is atrophy of the body and tail of pancreas. The mass severely narrows and may completely occludes the portal splenic confluence. The central splenic vein is severely narrowed. There is encasement of the celiac axis and superior mesenteric artery. There is also some stranding around the inferior mesenteric artery. The mass obstructs the common duct resulting in moderate intrahepatic biliary ductal dilatation. No definite intrahepatic lesions. Gallbladder is normal. Spleen is normal. Adrenals are normal. Kidneys are normal with no hydronephrosis. There are postsurgical changes of sleeve gastrectomy. No duodenal obstruction. The duodenum is not definitely dilated. Spleen is normal. Adrenals are normal. No renal lesions or hydronephrosis. No retroperitoneal lymphadenopathy. There is small free intraperitoneal fluid. The colon is collapsed distally. There is some wall thickening of the sigmoid colon and rectum. No definite omental or mesenteric lesions. There is a small indeterminate nodule measuring 4 mm along the right hemidiaphragm at scanner position 20.5. There are small pleural effusions. No definite suspicious lytic or blastic lesions. There are bilateral total hip arthroplasties. IMPRESSION: 1. Locally aggressive pancreatic head mass which obstructs the pancreatic and common ducts (with moderate intrahepatic biliary ductal dilatation) and encases and severely narrows the portal and splenic veins, encases the celiac axis, and encases the superior mesenteric artery. There is also some soft tissue stranding around the inferior mesenteric artery which could be some tumor. 2. Small volume ascites, potentially related to portal hypertension secondary to the severe narrowing/occlusion of the portal splenic veins. 3. Small indeterminate pulmonary nodule at the right lung base. 4. Incompletely distended colon with apparent thickening of the sigmoid colon and rectum. This could be related to underdistention or a proctocolitis. Recommend correlation with any potential symptoms. The findings, conclusions and recommendations within this report do not replace the initial findings, conclusions and recommendations made at the facility where the study was performed based upon the imaging and clinical condition at that time. Comparison with the prior report and clinical history is necessary. The provided images may or may not represent the [place] source data set and thus may contain changes that may lower the accuracy of this second-opinion interpretation. Electronically signed by: Mickey Martinez M.D. David Brewer MD IMG CT PROCEDURES Final Res ult from Last 3 Months Insurance [place] [employer] Advance Directives For more information, please contact: [phone] * Full Code (Latest Code Status on File) Date Activated Date Inactivated Comments 09/06/2024 12:07 PM 09/06/2024 8:17 PM * Full Code Date Activated Date Inactivated Comments 02/25/2023 1:22 PM 02/28/2023 7:54 PM * Full Code Date Activated Date Inactivated Comments 11/07/2022 2:00 AM 11/08/2022 7:29 PM Care Teams Supervisor Cutting Department Relationship Specialty Start Date End Date Leonidas Rubio MD [address] [place] [address] PCP - General Family Medicine 09/05/24 Arianna Persaud PA [address] [place] [address] Physician In File Operator 08/29/24
--- OUTSIDE RECORDS SUMMARY | 2024-09-14 11:51 | XMS_ITS | Encounter Summary ---
Author Organization [facility] Address [address] [place] [address] Phone Care Team Providers Care Poultry Hanger Name Role Phone Arianna Persaud Unavailable [phone] Leonidas Rubio MD Primary Care Provider Encounter Details Date Type Department Care Team (Late st Contact Info) Description 09/13/2024 Orders Only [facility] Gastroenterology [address] [facility] [address], [address] [id number] David Brewer MD [address] [place], [place] [id number] Elevated liver function tests (Primary Dx) Social History Tobacco Use Types Packs/Day Years [...] from doctor or pharmacy Never 04/11/2023 [facility] Utilities Answer Date Recorded In the [...] often do you attend chur ch or baptism services? Never 02/27/2023 Do you belong to any clubs o r organizations such as congregational groups, unions, fraternal or athletic groups, or [...] on file Legal Sex Female 6:30 PM [employer] Gender Identity Not on file Sexual Orientation Not on file documented as of this encounter Plan of Treatment Upcoming Encounters Date Type Department Care Team (Latest Contact Info) Description 09/19/2024 9:30 AM CDT Hospital Encounter [facility] [address] [address] David Brewer MD [address] [address] Pancreatic mass 09/19/2024 9:30 AM CDT - 09/19/2024 10:30 AM CDT Surgery [facility] [address] [address] David Brewer MD [address] [facility] [place] [address] [place] Endoscopy/bx/hh [GI509] Scheduled Orders Name Type Priority Associated Diagnoses Orde r Schedule Hepatic function panel Lab Routine Elevated liver function tests Expected: 09/13/2024, Expires: 09/13/2025 documented as of this encounter Visit Diagnoses Diagnosis Pancreatic mass- Primary Unspecified disease of pancreas Elevated liver function tests- Primary Other abnormal blood chemistry Pancreatic mass Unspecified disease of pancreas documented in this encounter Care Teams Poultry Hanger Relationship Specialty Start Date End Date Leonidas Rubio MD [address] [place] [address] PCP - General Family Medicine 09/05/24 Arianna Persaud PA [address] [place] [address] Physician Postpartum Nurse 08/29/24 documented as of this encounter
--- OUTSIDE RECORDS SUMMARY | 2024-09-14 11:51 | XMS_ITS | Clinical Summary ---
Author Organization [facility] Nintu Oy Address [address] [place] [address] Care Team Providers Care Process Equipment Operator Name Role Phone Aury Joseph RN Unavailable [phone] Dar Stinson MD Unavailable [phone] Linette Yepez MD Primary Care Provider + Source Comments [facility],non-owned Affiliates and Associated Physician Practices is amultiple site organization consisting of ambulatory clinics and hospital sitesin [place], [place], [place] and [place]. This disclosure is being madepursuant to the Care Everywhere program and may not contain all information available regarding this patient. 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 [employer] Not on file Not on file Not on file Last Filed Vital Signs Vital Sign Reading Time Taken Comments Blood Pressure 106/74 06/16/2021 10:41 AM SUSTAINABILITY ANALYST Pulse 60 06/16/2021 10:41 AM SUSTAINABILITY ANALYST Temperature 36.2 C (97.2 F) 06/16/2021 10:41 AM SUSTAINABILITY ANALYST Respiratory Rate 20 06/16/2021 10:41 AM SUSTAINABILITY ANALYST Oxygen Saturation 97% 06/16/2021 10:41 AM SUSTAINABILITY ANALYST Inhaled Oxygen Concentration - - Weight 72.6 kg (160 lb) 06/16/2021 10:41 AM SUSTAINABILITY ANALYST Height 160 cm (5' 3) 06/16/2021 10:41 AM SUSTAINABILITY ANALYST Body Mass Index 28.34 06/16/2021 10:41 AM SUSTAINABILITY ANALYST Plan of Treatment Health Maintenance Due Date [...] < 140/90 Blood Pressure 106/74(2021 10:41 AM SUSTAINABILITY ANALYST) Nae Montanez MA Medical Devices Implanted Type Area Automotive Project Engineer Device Identifier Shelf Expiration Date Model / Serial / Lot Shell Coat 3hole 54mm Implanted:Qty: 1 on 11/21/2013 by Francis Cortes MD at [facility] Right: Hip [employer] 08/16/2023 [id number] / / [id number] Linr Acetab Refl Xlpe 0deg 36mm X 54mm Implanted:Qty: 1 on 11/21/2013 by Francis Cortes MD at [facility] Right: Hip [employer] 10/15/2023 [id number] / / [id number] Spherical Head Screw 6.5mm Cancellous Implanted:Qty: 1 on 11/21/2013 by Francis Cortes MD at [facility] Right: Hip [employer] 05/17/2023 [id number] / / [id number] Standard Offset Fixed Neck Stikitite Coated Stem Feoral Coponent Implanted:Qty: 1 on 11/21/2013 by Francis Cortes MD at [facility] Right: Hip [employer] 06/14/2023 [id number] / / [id number] 03/30 Taper Femoral Head Implanted:Qty: 1 on 11/21/2013 by Francis Cortes MD at [facility] Right: Hip [employer] 12/14/2022 [id number] / / [id number] Bill Only H1 Uncem Metal Or Ceramic Implanted:Qty: 1 on 11/21/2013 by Francis Cortes MD at [facility] [employer] H1 BILL [...] 1:06 PM CDT Narrative Resulting Agency Comment [facility] [address] [id number] Feliciano Oliver MD LAB - CHEMISTRY ORDERABLES Fin al Result [facility] ACCOUNT BILL [address] [place] [address] * MAMMO SCREENING DIGITAL IMAGE BILAT (09/09/2014 5:05 PM CDT) Anatomical Region Laterality Modality Breast Bilateral Mammography 09/10/2014 5:08 PM CDT Impressions 09/10/2014 5:09 PM CDT No mammographic evidence of malignancy in either breast. ASSESSMENT: BIRADS Category 1: Negative. RECOMMENDATION: Bilateral screening mammogram in one year. Thank you for allowing us to participate in the care of your patient. [facility] [place] utilizes [employer] as a reminder system to notify patients of their next recommended mammogram. Narrative 09/10/2014 5:09 PM CDT EXAMINATION: Digital screening mammogram on 09/09/2014. Computer assisted detection was utilized. PRIOR: Mammogram from [facility] in 09/28/2006. FINDINGS: Breast parenchymal [...] offers HCV Ab w/Reflex to Verification test #274031. Blood specimen (specimen) BLOOD SPECIMEN / Unknown 08/09/2013 8:53 AM CDT 08/09/2013 12:57 PM CDT Narrative Resulting Agency Comment [facility] [address] [id number] Feliciano Oliver MD LAB - CHEMISTRY ORDERABLES Fin al Result [facility] ACCOUNT BILL [address] [place] [address] from Last 3 Months or Most Recently Relevant to Health Maintenance Insurance MANAGED MEDICARE ADV MANAGED MEDICARE ADV Advance Directives * Full Code (Latest Code Status on File) Date Activated Date Inactivated Comments 11/21/2013 12:38 PM 11/24/2013 6:31 PM * Full Code Date Activated Date Inactivated Comments 02/18/2009 10:26 AM 02/22/2009 1:32 AM Care Teams Process Equipment Operator Relationship Specialty Start Date End Date Linette Yepez MD [address] [place] [address] PCP - General Family Medicine 01/09/20 Aury Joseph, RN Ignition Mechanic 11/22/13 [place] [address] [address] Orthopedic Surgery 12/27/13
--- OUTSIDE RECORDS SUMMARY | 2024-09-14 11:51 | XMS_ITS | Referral Summary ---
Author Organization [facility] Address [address] [place] [address] Care Team Providers Care Jig Bore Tool Maker Name Role Phone Arianna Persaud Unavailable [phone] Leonidas Rubio MD Primary Care Provider Encounters Date Type Department Care Team Description 09/13/2024 Orders Only [facility] Surgery [address] [place] [address] Ana Sánchez PA Liver lesion (Primary Dx) 09/13/2024 Orders Only [facility] Gastroenterology [address] [place] [address] Medical Office [address], [address] [place] [address] David Brewer MD Elevated liver function tests (Primary Dx) 09/13/2024 12:53 PM CDT - 09/13/2024 11:59 PM CDT Hospital Encounter [facility] [address] [place] [address] Pancreatic mass Discharge Disposition: Discharge to home or self care 09/12/[address] [facility] Gastroenterology [address] [place] [address] Medical Office [address], [address] [place] [address] Arlyn Segovia RN family call 09/12/2024 Orders Only [facility] Gastroenterology [address] [facility] Office [address], [address] [place] [address] Arlyn Segovia, AUSTEN Pancreatic mass (Primary Dx) 09/11/2024 Results Follow-Up [facility] Gastroenterology [address] [facility] [address], [address] [place] [address] David Brewer MD Surgical pathology 09/11/[address] [facility] Surgery [address] [place] [phone] Susan Marroquin RN 09/06/2024 Orders Only [facility] [address] [place] [address] David Brewer MD 09/06/2024 1:07 PM CDT Anesthesia Event [facility] [address] [place] [address] Wayne Nicholson MD 09/06/2024 10:35 AM CDT Lab [facility] Outpatient Lab [address] [place] [address] Pancreatic mass; Elevated liver function tests 09/06/2024 6:50 AM CDT - 09/06/2024 11:59 PM CDT Hospital Encounter [facility] [address] [place] [address] Upper abdominal pain Discharge Disposition: Discharge to home or self care 09/06/2024 12:30 PM CDT - 09/06/2024 1:00 PM CDT Surgery [facility] [address] [place] [address] David Brewer MD ESOPHAGOGASTRODUODENOSCOPY ULTRASOUND GUIDE LIMITED 09/06/2024 11:07 AM CDT - 09/06/2024 4:10 PM CDT Hospital Encounter [facility] [address] [place] [address] Geoffrey Shaver MD Das, Koushik Kumar, MD Pancreatic mass; Elevated liver function tests Discharge Disposition: Discharge to home or self care 09/05/2024 1:04 PM CDT - 09/05/2024 11:59 PM CDT Hospital Encounter [facility] [address] [place] [address] Diagnosis unknown Discharge Disposition: Discharge to home or self care 09/04/2024 Telephone [facility] [address] [facility] [address] [place] [address] Onesimo George MD cardiac clearance 09/04/[address] [facility] Gastroenterology [address] [facility] [address], [address] [place] [address] Carmen Ordonez LPN GI Preprocedure 09/03/2024 Telephone [facility] Minimally Invasive Surgery [address] [facility] Medicine 12th Floor, [place] [address] Daisy Mercado MD Medical Question/Miscellaneous 09/02/2024 Orders Only [facility] Surgery [address] [place] [address] Ana Sánchez PA Pancreatic mass (Primary [...] 2 (two) times a day 60 capsule 09/19/19 24 025 Active carvediloL (COREG) 6.25 [...] 06/21/2022 Assessment & Plan (06/21/2022 7:25 PM LEAD RUBY ON RAILS DEVELOPER): Worsening after of her mother in 04/2022. Feels more anxiety than depression. Admits panic attacks. Reluctant to start daily medication, don't want to feel trapped into taking medicine. Will Rx BuSpar as directed. Encouraged relaxation techniques such as deep breathing and guided imagery. Keep follow as scheduled, sooner if needed. Diarrhea 06/20/2022 Assessment & Plan (06/21/2022 7:16 PM LEAD RUBY ON RAILS DEVELOPER): Ongoing for approximately 1 week after finishing a course of cefdinir for UTI. No more urinary symptoms or abdominal pain. No acute findings on exam. Will order CDiff test. Advised on Bowel rest: push fluids, bland high fiber diet. Continue immodium if needed. Vulvovaginitis 06/20/2022 Assessment & Plan (06/21/2022 7:17 PM LEAD RUBY ON RAILS DEVELOPER): S/p cefdinir course for UTI. Denies discharge or genital lesions. exam deferred per pt request. Rxd Diflucan as directed. Use mild non-fragrant soaps/lotions. Recurrent UTI 06/08/2022 Assessment & Plan (06/08/2022 2:35 PM LEAD RUBY ON RAILS DEVELOPER): Currently on Abx for treatment. Patient to [...] 12/23/2021 Assessment & Plan (06/21/2022 7:12 PM LEAD RUBY ON RAILS DEVELOPER): BP stable in office today on current therapy. Continue current regimen and low salt diet. Stay hydrated. Assessment & Plan (06/08/2022 2:36 PM LEAD RUBY ON RAILS DEVELOPER): Chronic and mildly elevated. Goal < 130/80. [...] 12/23/2021 Assessment & Plan (06/08/2022 2:35 PM LEAD RUBY ON RAILS DEVELOPER): Chronic and stable. 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 with cissp Assessment & Plan (12/23/2021 12:10 PM CDT): [...] materials from doctor or pharmacy Never 04/11/2023 [facility] Utilities Answer Date Recorded In the past 12 months has th e [employer] gas, oil, or water company threatened to [...] often do you attend chur ch or sikhism services? Never 02/27/2023 Do you belong to any clubs o r organizations such as voodoo groups, unions, fraternal or athletic groups, or [...] on file Legal Sex Female 6:30 PM LEAD RUBY ON RAILS DEVELOPER Gender Identity Not on file Sexual Orientation [...] Description 09/19/2024 9:30 AM CDT Hospital Encounter [facility] [address] [address] David Brewer MD [address] [address] Pancreatic mass 09/19/2024 9:30 AM CDT - 09/19/2024 10:30 AM CDT Surgery [facility] [address] [address] David Brewer MD [address] [place] [address] [place] Endoscopy/bx/hh [GI509] Medical Devices Implanted Type Area Oyster Washer Device Identifier Shelf Expiration Date Model / Serial / Lot Conmed Chris Viabil 10mm X 6cm Shortwire [id number] - [id number] - [id number] Implanted:Qty: 1 on 09/06/2024 by Davdi Brewer MD at [facility] Stent N/A: Bile Duct Conmed Chris 06/19/2027 [id number] / [id number] / Procedures Procedure Name Priority Date/Time Associated [...] signed by: Segun Bailey M.D. Ana RODRIGUES IMG CT PROCEDURES Final R esult * FL ERCP Biliary Duct (09/06/2024 1:42 PM CDT) Narrative [facility] - 09/06/2024 1:53 PM CDT The images from this study are not interpreted by Radiology. Please refer to the physician's procedure / OR operative note. us David Brewer MD IMG FLUOROSCOPY PROCEDURES Final Result [facility] * Surgical pathology (09/06/2024 1:25 PM CDT) Lymph node, needle biopsy 09/06/2024 1:25 PM CDT 09/10/2024 11:26 AM CDT Narrative 09/11/2024 3:14 PM CDT [address] [address] Tele: Roxana Gordon MD - Clinical Physician Assistant Note to Patients: This report may contain [...] PATHOLOGY REPORT Patient Name: SUSANNAH GONCALVES Address: [address] [place] [address] Gender: F : 1950 (Age: 73) Service: Gastro Location: [facility] Hospital #: [id number] Patient Type: [facility] Taken: 09/06/2024 Received 09/10/2024 Reported: 09/11/2024 Physician(s): Puma Wagner MD Jason E. Barnett, M.D. DIAGNOSIS: Pancreas, head, fine needle biopsies: - Focal atypical glands (see description) [facility] 15:14 Examining Pathologist: Alek Flowers M.D. Report [...] filtered and submitted entirely in cassette A1. [facility] MICROSCOPIC DESCRIPTION: Microscopic examination shows multiple fragments of pancreatic parenchyma. There are focal slightly irregular glands with minimal nuclear atypia. An immunostain for p53 shows wild type staining in these glands. There is no definitive malignancy identified. Clinical correlation and follow-up is needed. Clerical Data Follows A; 4300[address], [address] REPORT IMAGES AND/OR SCANNED DOCUMENTS ONLY VIEWABLE IN PDF FORMAT The immunohistochemical test(s) cited in this report, if any, was developed and its performance characteristics determined by [facility] Pathology Department. It has not been cleared or approved by the U.S. Food and Drug Administration. The FDA has determined that such clearance or approval is not necessary. This test is used for clinical purposes. It should not be regarded as investigational or for research. [facility] Laboratory is certified under the Clinical Laboratory [...] part or completely in the following laboratories: [facility], [facility]5 [facility], [address], [address] [place] [address]. us David Brewer MD LAB PATHOLOGY ORDERABLES Fi nal Result * ERCP (09/06/2024 1:03 PM CDT) Anatomical Region Laterality Modality Other Narrative Procedure Note David Brewer MD - 09/06/2024 1:03 PM CDT ENDOSCOPY LAB Patient Name: Susannah Goncalves Procedure Date: 09/06/2024 1:03 PM Admit Type: Outpatient Room: [facility] Date of : 1950 Instrument Name: [id number] [...] The patienttolerated the procedure well. Findings: The battery technician film was normal. The esophagus was successfully [...] following this procedure please call my officeat [phone] ([phone]) to speak to my nurses. After hours and evenings please call [phone] speak to the GI fellow elevator constructor supervisor. Please tell themthat Dr. Brewer did your procedure and that your were instructed to have the fellow call me or thephysician covering for me to discuss the management of your condition. If you have an urgent problem, please goto the nearest emergency room and have the ER doctorcall my office during the day or [facility] transfer ([phone]) center after hours and weekends to arrange [...] 09/06/2024 1:02 PM Admit Type: Outpatient Room: [facility] Date of : 1950 Instrument Name: [id number] Gender: Female Note Status: Finalized Procedure: Upper [...] following this procedure please call my officeat [phone] ([phone]) to speak to my nurses. After hours and evenings please call [phone] speak to the GI fellow elevator constructor supervisor. Please tell themthat Dr. Brewer did your procedure and that your were instructed to have the fellow call me or thephysician covering for me to discuss the management of your condition. If you have an urgent problem, please goto the nearest emergency room and have the ER doctorcall my office during the day or [facility] transfer ([phone]) center after hours and weekends to arrange admission or transfer to our facility. - Call my nurse Arlyn Segovia RN in the GI office at [phone] for your final results in 7 days. [...] Bilirubin, direct 4.2(H) 0.1 - 0.3 mg/dL [facility] Protein, pl 5.5(L) 6.5 - 8.5 g/dL [facility] Albumin 3.0(L) 3.5 - 5.0 g/dL [facility] Alk phos 1,250(H) 40 - 130 Units/L [facility] ALT 143(H) 7 - 45 Units/L [facility] AST 190(H) 10 - 45 Units/L [facility] Blood 09/06/2024 10:5 0 AM CDT 09/06/2024 10:50 AM CDT Narrative [facility] - 09/06/2024 11:32 AM CDT STAT pre procedure lab same day us Geoffrey Shaver MD LAB BLOOD ORDERABLES Final Result [facility] [address] Department [place] [address] * CT Body Outside Consult (09/05/2024 1:04 [...] images may or may not represent the jackson source data set and thus may contain changes that may lower the accuracy of this second-opinion interpretation. Electronically signed by: Mickey Martinez M.D. Narrative 09/05/2024 2:33 PM CDT EXAMINATION: RADIOLOGY CONSULTATION ON OUTSIDE IMAGING STUDY STUDY INITIALLY PERFORMED: 08/28/2024 at [facility]. TYPE OF STUDY: Multiple CT images of [...] IMAGING STUDY STUDY INITIALLY PERFORMED: 08/28/2024 at [facility]. TYPE OF STUDY: Multiple CT images of [...] images may or may not represent the jackson source data set and thus may contain changes that may lower the accuracy of this second-opinion interpretation. Electronically signed by: Mickey Martinez M.D. David Brewer MD IMG CT PROCEDURES Final Res ult from Last 3 Months Insurance [facility] MEDICARE ADVANTAGE [facility] MEDICARE ADVANTAGE [facility] MEDICARE ADVANTAGE Advance Directives For more information, please contact: [phone] * Full Code (Latest Code Status on File) Date Activated Date Inactivated Comments 09/06/2024 12:07 PM 09/06/2024 8:17 PM * Full Code Date Activated Date Inactivated Comments 02/25/2023 1:22 PM 02/28/2023 7:54 PM * Full Code Date Activated Date Inactivated Comments 11/07/2022 2:00 AM 11/08/2022 7:29 PM Care Teams Jig Bore Tool Maker Relationship Specialty Start Date End Date Leonidas Rubio MD [address] [address] PCP - General Family Medicine 09/05/24 Arianna Persaud PA [address] [address] Physician Bargain Table Clerk 08/29/24
--- OUTSIDE RECORDS SUMMARY | 2024-09-14 11:51 | XMS_ITS | Continuity of Care Document ---
Author Organization [facility] Address [address] [place] [address] Phone Care Team Providers Care Llama Farmer Name Role Phone Mariebl BROWN, Ramirez Unavailable Unavailable Allergies, Adverse Reactions, [...] OFFICE/OUTPA TIENT VISIT NEW [facility], [address], [place], [address], tel:[phone] [facility] CervicalgiaOther spondylosis with myelopathy, cervical regionAbnormal reflex Maribel Guzmán. [address], [place], [place], [id number] , [place]. tel: [phone] Referring Provider: Nidhi Smart [address], [place], [address]. tel:[phone] Family History Family Member Type Diagnosis Age At Onset No Information Payers Payer name Insurance type Covered libertarian ID Pedro chaney(s) AARP Medicare Complete HMO-POS [id number] Social History Type Description Quantity Date [...]
--- OUTSIDE RECORDS SUMMARY | 2024-09-14 11:51 | XMS_ITS | Encounter Summary ---
Author Organization [facility] [address] [place] [address] Care Team Providers Care Advertising Statistical Clerk Name Role Phone Linette Yepez MD Primary Care Provider [phone]- [phone] Reason for Visit * Reason Onset Date Comments MEDICAL MANAGEMENT 04/13/2020 [facility]ENN[facility]ER W/ [facility]/ [facility] Encounter Details Date Type Department Care Team ([facility] st Contact Info) Description 04/13/2020 Telephone [facility] Admitting [address] [place] [address] [place] [id number] [place] [address] [place] [address] MEDICAL MANAGEMENT (JENNIFER Nettles/ RAVI Nettles/ HOSPITALIST [...] COVID-19? No / Unsure 04/13/2020 6:46 AM ENTRY OPERATOR documented as of this encounter Plan of Treatment Not on file documented as of this encounter Visit Diagnoses Not on filedocumented in this encounter Care Teams Advertising Statistical Clerk Relationship Specialty Start Date End Date Linette Yepez MD PCP - General Family Practice 04/01/20 documented as of this encounter
--- OUTSIDE RECORDS SUMMARY | 2024-09-14 11:51 | XMS_ITS | Encounter Summary ---
Author Organization [facility] Address [address] [place] [address] Phone Care Team Providers Care Cutter First Name Role Phone Arianna Persaud Unavailable +1- [phone] Leonidas Rubio MD Primary Care Provider Reason for Referral * MRI/CAT/PET Scan (Routine) - Pending Review Specialty Diagnoses / Procedures Referred By Shaw lewis Referred To Contact Radiology Diagnoses Liver lesion Procedures MRI Abdomen Liver W WO Contrast Ana Sánchez PA [address] [facility] [address] [place] [address] Phone: tel: fax: [facility] [address] [place] [address] Referral ID Status Reason Start Date Expiration Date V isits Requested Visits Authorized [id number] Pending Review 09/13/2024 10/13/2025 1 1 Encounter Details Date Type Department Care Team (Late st Contact Info) Description 09/13/2024 Orders Only [facility] Surgery [address] [place] [address] Ana Sánchez PA [address] [place] [address] Liver lesion (Primary Dx) Social History Tobacco Use Types [...] In the past 12 months has e [employer], [employer], oil, or water [employer] threatened to shut off services in your [...] often do you attend chur ch or congregation services? Never 02/27/2023 Do you belong to any clubs o r organizations such as anabaptist groups, unions, fraternal or athletic groups, or [...] on file Legal Sex Female 6:30 PM WEARING APPAREL ASSEMBLER Gender Identity Not on file Sexual Orientation Not on file documented as of this encounter Plan of Treatment Upcoming Encounters Date Type Department Care Team (Latest Contact Info) Description 09/19/2024 9:30 AM CDT Hospital Encounter [facility] [address] [address] David Brewer MD [address] [place] [address] Pancreatic mass 09/19/2024 9:30 AM CDT - 09/19/2024 10:30 AM CDT Surgery [facility] [address] [place] [address] David Brewer MD [address] [place] [address] US Endoscopy/bx/hh [GI509] Scheduled Orders Name Type Priority Associated Diagnoses Orde r Schedule MRI Abdomen Liver W WO Contrast Imaging Schedule Routine, Read Routine (OP Routine) Liver lesion Expected: 09/13/2024, Expires: 09/13/2025 documented as of this encounter Visit Diagnoses Diagnosis Pancreatic mass- Primary Unspecified disease of pancreas Liver lesion- Primary Other specified disorders of liver Pancreatic mass Unspecified disease of pancreas documented in this encounter Care Teams Cutter First Relationship Specialty Start Date End Date Leonidas Rubio MD [address] [place] [address] PCP - General Family Medicine 09/05/24 Arianna Persaud PA [address] [place] [address] Physician Customer Support Specialist 08/29/24 documented as of this encounter
--- OUTSIDE RECORDS SUMMARY | 2024-09-14 11:51 | XMS_ITS | Encounter Summary ---
Author Organization [facility] Address [address] [facility] [address] [place] [address] Phone Care Team Providers Care Toy Assembly Supervisor Name Role Phone Linette Yepez MD Primary Care Provider Arianna Persaud Unavailable +1- [phone] Leonidas Rubio MD Primary Care Provider Reason for Visit * Reason Onset Date Comments Medical Question/Miscellaneous 09/03/2024 Encounter Details Date Type Department Care Team (Late st Contact Info) Description 09/03/2024 Telephone [facility] ([facility]) - [facility] Minimally Invasive Surgery [address] [place] [address] Advanced Medicine 12th Floor, [place] [address] Daisy Mercado MD [address] [facility] [address] [place] [address] Medical Question/Miscellaneous Social History Tobacco Use Types [...] from doctor or pharmacy Never 04/11/2023 [facility] Utilities Answer Date Recorded In the past 12 months has th e [employer], gas, oil, or water company threatened to [...] often do you attend chur ch or synagogue services? Never 02/27/2023 Do you belong to any clubs o r organizations such as baptism groups, unions, fraternal or athletic groups, or [...] on file Legal Sex Female 6:30 PM VP MOBI[employer]ODU[employer] Gender Identity Not on file Sexual Orientation [...] them to contact for a call back: [phone] Last office visit: Visit date not found Date of Surgery: No surgery found documented in this encounter Plan of Treatment Upcoming Encounters Date Type Department Care Team (Latest Contact Info) Description 09/19/2024 9:30 AM CDT Hospital Encounter [facility] [address] [place] [address] David Brewer MD [address] [place] [address] Pancreatic mass 09/19/2024 9:30 AM CDT - 09/19/2024 10:30 AM CDT Surgery [facility] [address] [place] [address] David Brewer MD [address] [place] [address] [place] Endoscopy/bx/hh [GI509] documented as of this encounter Visit Diagnoses Not on filedocumented in this encounter Care Teams Toy Assembly Supervisor Relationship Specialty Start Date End Date Linette Yepez MD [address] [address] PCP - General Family Medicine 11/06/22 09/04/24 Leonidas Rubio MD [address] [address] PCP - General Family Medicine 09/05/24 Arianna Persaud PA [address] [address] Physician Hot Sealing Machine Operator 08/29/24 documented as of this encounter
--- OUTSIDE RECORDS SUMMARY | 2024-09-14 11:51 | XMS_ITS | Clinical Summary ---
Author Organization [facility] Address [address] [place] [address] Phone Care Team Providers Care Disposition Clerk Name Role Phone Linette Yepez MD Primary Care Provider +1- [phone] Allergies Active Allergy Reactions Criticality Noted Date [...] mg by mouth 2 times daily. rx [id number] Active NIFEdipine CR (PROCARDIA-XL) 30 MG TABLET SR 24 HR Take 30 mg by mouth daily. rx [id number] Active Buprenorphine HCl (Belbuca) 600 MCG FILM Take 1 Film by mouth 2 times daily. rx [id number] Active hydrOXYzine (ATARAX) 25 MG Tablet Take 25 mg by mouth 3 times daily as needed for Itching or Nausea (vomiting). rx [id number] Active famotidine (PEPCID) 20 MG Tablet Take 20 mg by mouth daily. rx [id number] Active traMADol (ULTRAM) 50 MG Tablet take [...] Department Care Team Description 08/09/2024 Results Follow-Up [facility] [address] [place] [address] Norma Clark, ASSOCIATE SALES, GAS PUMPER POCT UA AUTOMATED W/O MICRO, CULTURE, URINE 08/07/2024 1:20 PM CDT Urgent Care Visit [facility] [address] [place] [id number] Amrita Vee APRN, LORETTA Diarrhea, unspecified type (Primary Dx); Dysuria Discharge Disposition: Discharged to home or Selfcare 08/07/2024 Travel 07/13/2024 Results Follow-Up [place] [address] Norma Clark APRN, LORETTA POCT UA AUTOMATED W/O MICRO, CULTURE, URINE 07/11/2024 1:30 PM CDT Urgent Care Visit [facility] [address] [place] [address] Connie Sharma APRN, LORETTA Acute [...] 10:52 AM CDT Height 160 cm (5' 3) 12/12/2023 10:52 AM CDT Body Mass Index [...] Distal Urethral Contaminants 08/08/2024 11:53 PM CDT [facility] Culture URINE SPECIMEN / Unknown Non-Phlebotomy Collection / Unknown 08/07/2024 1:53 PM CDT 08/07/2024 1:53 PM CDT Amrita Vee APRN, CNP MICROBIOLOGY - GENERAL ORDERABLES Final Result [facility] [address] [place] [address], [place] * POCT UA AUTOMATED W/O MICRO [...] from Last 3 Months Insurance [facility]IC[facility] Advance Directives * Full Code (Latest Code Status on File) Date Activated Date Inactivated Comments 12/27/2023 9:36 AM Care Teams Disposition Clerk Relationship Specialty Start Date End Date Linette Yepez MD [address] [facility] [address] [place] [id number] PCP - General Family Medicine 12/08/23
--- OUTSIDE RECORDS SUMMARY | 2024-09-14 11:51 | XMS_ITS | Encounter Summary ---
Author Organization [facility] Address [address] [place] [address] Phone Care Team Providers Care Asbestos Cement Sheet Supervisor Name Role Phone Linette Yepez MD Primary Care Provider [phone]- [phone] Encounter Details Date Type Department Care Team (Late st Contact Info) Description 08/09/2024 Results [facility] [address] [place] [address] Norma Clark, AUTOMATIC NAILING MACHINE OPERATOR, VOYAGE MANAGEMENT SYSTEM OPERATOR [address] [place] [address] POCT UA AUTOMATED W/O MICRO, [...] on filedocumented in this encounter Care Teams Asbestos Cement Sheet Supervisor Relationship Specialty Start Date End Date Linette Yepez MD [address] [place] [address] PCP - General Family Medicine 12/08/23 documented as of this encounter
--- OUTSIDE RECORDS SUMMARY | 2024-09-14 11:51 | XMS_ITS ---
Author Organization [facility] Address [address] [place] [address] [address] [place] [address] Care Team Providers Care Construction Trades Contractor Name Role Phone Linette Yepez MD Primary Care Provider Lissette Sotelo [phone] REASON FOR VISIT meds- dr BELCHER Medications Medication SIG (Take, Route, Frequency, Duration) Notes Start Date End Date Status busPIRone HCl 10 MG Oral for 90 Days Active Lyrica 25 MG 1 capsule Orally Once a day 01/11/2024 Active Carvedilol 6.25 MG Oral for 90 Days Active Propafenone HCl ER 225 MG Oral for 30 Days Active Xarelto 20 MG Oral for 90 Days Active NIFEdipine ER 30 MG Oral for 90 Days Active Lisinopril 40 MG Oral for 90 Days Active Citalopram Hydrobromide 40 MG Oral for 90 Days Active Citalopram Hydrobromide 40 MG TAKE 1 TABLET BY MOUTH EVERY DAY Oral for 90 Days Active traMADol HCl 50 MG Take 1 tablet Oral three times per day for 30 days Do not fill until 08/23/24 08/20/2024 Active tiZANidine HCl 2 MG Take 1 tablet Oral three times per day for 30 days Active Belbuca 600 MCG 1 film Bucally every 12 hrs for 30 days Do not fill until 08/23/24 08/20/2024 Active Encounters Encounter Location Date Provider Diagnosis Telehealth [facility] [address] [facility] [address] [place] [address] 09/12/2024 Lissette Colby Plan Of Treatment No Information Progress Notes * Susannah GONCALVES ADOB:[birth year] (73 yo F)Acc No.[id number]:09/12/2024 Patient: Susannah JOHN Appointment Provider: Amy Colby NP :1950 A ge:73 Y S ex:Female Supervising Provider:Nidhi Dick MD Date:09/12/2024 Address:[address] [place], [place] [address] Pcp:Linette Yepez MD Subjective: * Chief Complaints: * 1 . meds- dr BELCHER. * Medical History: * Medications: T aking tiZANidine HCl 2 MG Tablet Take 1 tablet Oral three times per day , Taking Belbuca 600 MCG Film 1 film Bucally every 12 hrs , Notes to Pharmacist: Do not fill until 08/23/24, Taking traMADol HCl 50 MG Tablet Take 1 tablet Oral three times per day , Notes to Pharmacist: Do not fill until 08/23/24, Taking Lisinopril 40 MG Tablet Oral , Taking NIFEdipine ER 30 MG Tablet Extended Release 24 Hour Oral , Taking Citalopram Hydrobromide 40 MG Tablet TAKE 1 TABLET BY MOUTH EVERY DAY Oral , Taking Citalopram Hydrobromide 40 MG Tablet Oral , Taking busPIRone HCl 10 MG Tablet Oral , Taking Carvedilol 6.25 MG Tablet Oral , Taking Lyrica 25 MG Capsule 1 capsule Orally Once a day , Taking Xarelto 20 MG Tablet Oral , Taking Propafenone HCl ER 225 MG Capsule Extended Release 12 Hour Oral Objective: * Vitals: Assessment: Plan: * Treatment: * Billing Information: * Visit Code: * Procedure Codes: * Electronic signature of Kimi Dick MD on 09/14/2024 at 11:51 AM CDT Sign off status: Pending * Appointment Provider: Amy Colby NP Date: 09/12/2024 Generated for Printing/Faxing/eTransmitting on: 09/14/2024 11:51 AM CDT
--- OUTSIDE RECORDS SUMMARY | 2024-09-14 11:51 | XMS_ITS | Encounter Summary ---
Author Organization [facility] Address [address] [place] [address] Care Team Providers Care Pipeline Superintendent Division Name Role Phone Arianna Persaud Unavailable +1- [phone] Leonidas Rubio MD Primary Care Provider Reason for Referral * Diagnostic Imaging (Routine) - Closed Specialty Diagnoses / Procedures Referred By Contac t Referred To Contact Radiology Diagnoses Pancreatic mass Procedures CT Chest W and Abdomen Pelvis W WO Contrast (C) CT abdomen pelvis with and without contrast Ana Sánchez PA [address] [facility] [address] [place] [address] Phone: tel: fax: [address] [address] Referral ID Status Reason Start Date Expiration Date Visits Re quested Visits Authorized [id number] Closed 09/02/2024 10/02/2025 1 1 Reason for Visit * Diagnostic Imaging (Routine) - Closed Specialty Diagnoses / Procedures Referred By Contac t Referred To Contact Radiology Diagnoses Pancreatic mass Procedures CT Chest W and Abdomen Pelvis W WO Contrast (C) CT abdomen pelvis with and without contrast Ana Sánchez PA [address] [facility] [address] [place] [address] Phone: tel: fax: [facility] [place] [phone] Referral ID Status Reason Start Date Expiration Date Visits Re quested Visits Authorized [id number] Closed 09/02/2024 10/02/2025 1 1 Encounter Details Date Type Department Care Team (Latest Contact Info) Description 09/13/2024 12:53 PM CDT - 09/13/2024 11:59 PM CDT Hospital Encounter [facility] [address] [place] [address] Pancreatic mass Discharge Disposition: Discharge to home or self care Social History Tobacco Use Types Packs/Day Years [...] doctor or pharmacy Never 04/11/2023 [facility] Utilities Answer Date Recorded In the past 12 months has e [employer], gas, oil, or water [employer] threatened to shut off services in your [...] often do you attend chur ch or yazidism services? Never 02/27/2023 Do you belong to [...] place to sleep or slept in a alf (including now)? No 02/27/2023 Personal Safety Answer Date Recorded Have you ever been in or are you currently in a harmful physical or emotional relationship or is someone making you feel afraid or unsafe? 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 Gender Identity Not on file Sexual Orientation Not on file documented as of this encounter Medications at Time of Discharge albuterol HFA (PROVENTIL HFA,VENTOLIN HFA,PROAIR HFA) 90 mcg/actuation inhaler Inhale 1 puff every 6 (six) hours as needed for wheezing ascorbic acid (ascorbic acid with bonita hips) 500 mg tablet,chewableIndi cations:suppliment Take 1 tablet/chew tab (500 mg total) by mouth daily Belbuca 600 mcg film buccal film TAKE 1 FILM BY MOUTH TWICE DAILY X 30 DAYS 09/08/2023 busPIRone (BUSPAR) 7.5 mg tablet TAKE 1 TABLET(7.5 MG) BY MOUTH THREE TIMES DAILY 90 tablet 2 07/27/2022 carvediloL (COREG) 6.25 mg tablet TAKE 1 TABLET(6.25 MG) BY MOUTH TWICE DAILY WITH MEALS 60 tablet 5 02/26/2024 CHOLECALCIFEROL, VITAMIN D3, ORALIndications:sup pliment Take 5,000 Units by mouth daily. Indications: suppliment citalopram (CeleXA) 40 mg tablet Take 1 tablet (40 mg total) by mouth daily 90 tablet 08/10/2022 Dodex 1,000 mcg/mL injection ADMINISTER 1 ML(1000 MCG) IN THE MUSCLE EVERY 30 DAYS DIRECTED 1 mL 3 04/28/2022 Eclipse Syringe 3 mL 25 gauge x 1 syringe USE 1 EACH EVERY 30 DAYS 3 each 2 05/02/2022 FeroSuL 325 mg (65 mg iron) tablet Take 1 tablet (325 mg total) by mouth daily 05/03/2023 folic acid (FOLVITE) 400 mcg tabletIndications:F olate Deficiency Take 1 tablet (400 mcg total) by mouth daily hydrOXYzine (ATARAX) 25 mg tablet Take 1 tablet (25 mg total) by mouth every 8 (eight) hours as needed (nausea) 01/09/2023 lisinopriL (PRINIVIL,ZESTRIL) 40 mg tablet TAKE 1 TABLET(40 MG) BY MOUTH DAILY 90 tablet 3 05/27/2024 lisinopriL (PRINIVIL,ZESTRIL) 40 mg tablet Take 1 tablet (40 mg total) by mouth daily 90 tablet 3 05/27/2024 loperamide (IMODIUM A-D) 2 mg tabletIndications:d iarrhea Take 1 tablet (2 mg total) by mouth 3 (three) times a day as needed for diarrhea multivitamin tablet tablet Take one by mouth one time per day 0 0 05/16/2007 NIFEdipine (NIFEdipine CC) 30 mg 24 hr tablet TAKE 1 TABLET(30 MG) BY MOUTH EVERY NIGHT 30 tablet 3 05/23/2024 ondansetron ODT (ZOFRAN-ODT) 4 mg disintegrating tablet Take 1 tablet (4 mg total) by mouth every 8 (eight) hours as needed for nausea or vomiting 20 tablet 02/24/[address] (PROTONIX) 40 mg EC tabletIndications:S tress Ulcer Prophylaxis Take 1 tablet (40 mg total) by mouth daily propafenone SR (RYTHMOL SR) 225 mg 12 hr capsuleIndications: Prevention of Recurrent Atrial Fibrillation Take 1 capsule (225 mg total) by mouth 2 (two) times a day 60 capsule 11 09/19/2023 rivaroxaban (XARELTO) 20 mg tablet Take 1 tablet (20 mg total) by mouth daily 90 tablet 3 05/09/2024 syringe with needle (Syringe 3cc/25Gx1) 3 mL 25 gauge x 1 syringe 1 Syringe every 30 (thirty) days 3 each 12/23/2021 turmeric root extract 500 mg capsuleIndications: suppliment Take 500 mg by mouth daily. Indications: suppliment vitamin E 400 unit capsule Take one by mouth one time per day 0 0 05/16/2007 documented as of this encounter Discharge Disposition Disposition Code Departure Means Destination Discharge to home or self care documented in this encounter Plan of Treatment Upcoming Encounters Date Type Department Care Team (Latest Contact Info) Description 09/19/2024 9:30 AM CDT Hospital Encounter [facility] [address] [place] [address] David Brewer MD [address] [place] [address] Pancreatic mass 09/19/2024 9:30 AM CDT - 09/19/2024 10:30 AM CDT Surgery [facility] [address] [place] [address] David Brewer MD [address] [place] [address] US Endoscopy/bx/hh [GI509] documented as of this encounter Procedures Procedure Name Priority Date/Time Associated Diagnosis Comments CT CHEST W AND ABDOMEN PELVIS W WO CONTRAST (C) Schedule Routine, Read Routine (OP Routine) 09/13/2024 1:27 PM CDT Pancreatic mass documented in this encounter Results * CT Chest W and Abdomen [...] RODRIGUES IMG CT PROCEDURES Final R esult documented in this encounter Visit Diagnoses Diagnosis Pancreatic mass- Primary Unspecified disease of pancreas Pancreatic mass Unspecified disease of pancreas Pancreatic mass Unspecified disease of pancreas documented in this encounter Administered Medications Inactive Administered Medications - up to 3 most recent administrations Medication Order MAR Action Action Date Dose Rate Site citra select suspension 1 Bottle 1 Bottle, oral, Once in imaging, contrast, Starting on Mon09/13/24 at 1328, For 1 dose, Imaging Protocol Orders, To complete 20 minutes before scan but not immediately before. Shake well Given 09/13/2024 1:28 PM CDT 1 Bottle ioversoL (OPTIRAY 350) syringe 125 mL 125 mL, intravenous, Once in imaging, contrast, Starting on Mon09/13/24 at 1328, For 1 dose Contrast Given 09/13/2024 1:34 PM CDT 120 mL documented in this encounter Care Teams Pipeline Superintendent Division Relationship Specialty Start Date End Date Leonidas Rubio MD [address] [place] [address] PCP - General Family Medicine 09/05/24 Arianna Persaud PA [address] [place] [address] Physician Aluminum Boat Assembly Supervisor 08/29/24 documented as of this encounter
--- OUTSIDE RECORDS SUMMARY | 2024-09-14 11:51 | XMS_ITS | Encounter Summary ---
Author Organization [facility] Address [address] [place] [address] Phone Care Team Providers Care Car Seat Maker Name Role Phone Arianna Persaud Unavailable [phone]- [phone] Leonidas Rubio MD Primary Care Provider Encounter Details Date Type Department Care Team (Late st Contact Info) Description 09/12/2024 Orders Only [facility] Gastroenter[facility] [address] [place] [address] Arlyn Segovia, AUSTEN Pancreatic mass (Primary Dx) Social History Tobacco Use Types [...] materials from doctor or pharmacy Never 04/11/2023 [facility] Utilities Answer Date Recorded In the past 12 months has th e electric, gas, oil, or water [employer] threatened to shut off services in your [...] often do you attend chur ch or protestant services? Never 02/27/2023 Do you belong to any clubs o r organizations such as denominational groups, unions, fraternal or athletic groups, or [...] place to sleep or slept in a care home (including now)? No 02/27/2023 Personal Safety Answer Date Recorded Have you ever been in or are you currently in a harmful physical or emotional relationship or is someone making you feel afraid or unsafe? 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 Gender Identity Not on file Sexual Orientation Not on file documented as of this encounter Plan of Treatment Upcoming Encounters Date Type Department Care Team (Latest Contact Info) Description 09/19/2024 9:30 AM CDT Hospital Encounter [facility] [address] [address] David Brewer MD [address] [address] Pancreatic mass 09/19/2024 9:30 AM CDT - 09/19/2024 10:30 AM CDT Surgery [facility] [address] [address] David Brewer MD [address] [facility] [place] [address] US Endoscopy/bx/hh [GI509] documented as of this encounter Visit Diagnoses Diagnosis Pancreatic mass- Primary Unspecified disease of pancreas Pancreatic mass- Primary Unspecified disease of pancreas Pancreatic mass Unspecified disease of pancreas documented in this encounter Orders Case Request Count Last Ordered Date First Orde red Date CASE REQUEST GI 1 09/12/2024 documented in this encounter Care Teams Car Seat Maker Relationship Specialty Start Date End Date Rubio, Leonidas Adam, MD [address] [place] [address] PCP - General Family Medicine 09/05/24 Arianna Persaud PA [address] [place] [address] Physician Electrocardiograph Operator 08/29/24 documented as of this encounter
--- OUTSIDE RECORDS SUMMARY | 2024-09-14 11:52 | XMS_ITS | CONTINUITY OF CARE DOCUMENT ---
Author Name jenny alvarado Address Unknown Organization [facility] Address [address] [facility] [address] [place] [address] Phone [phone] Care Team Providers Care Client Delivery Specialist Name Role Phone Terell BROWN, Chi Unavailable INSURANCE PROVIDERS Payer name Policy type / Coverage type [employer] red [employer] party ID [facility] [employer] Other [id number]
--- OUTSIDE RECORDS SUMMARY | 2024-09-14 11:52 | XMS_ITS | Patient Health Record ---
Author Organization [facility] Address [address] [place] [address] Care Team Providers Care Paperback Machine Operator Name Role Phone Lucho BROWN, Linette Primary Care Provider Francie Nidhi Alejandre Unavailable [phone] Maegan POPE, Sussy Unavailable [phone] Lissette Colby Unavailable [phone] Johnathon Dick Unavailable [phone] Allergies No Known Allergies Results Component Value Reference Range Notes [employer] Profil e Reviewed date:03/04/2024 07:46:44 AM Interpretation: Performing Lab:[facility] (CLIA#: [id number]), [address] [place] [address], Director - Adelina Jensen Notes/Report: Certifying Manager Wellness: Nicolas Carlson (Remote [id number]) These tests were developed and their performance characteristics determined by [facility]. They have not been cleared or approved by the US Food and Drug Administration. Analyzed at [facility] (CLIA#: [id number]) - [address] [place] [address] - Horse Show Judge: Adelina Ontiveros Cital+Escital Ur CMP >29350 >=50 ng/mL COMPLIA NT: Test result is [...] form, was detected. Ethyl Sulfate Ur CMP 82153 >=200 ng/mL PRESENT : Test result is consistent with alcohol exposure within 72 hours of specimen collection. For additional information, please consult the Clinical Team at or email [email or web address] BioDetect EXPECTED Test result is consistent with [...] >=200 ng/mL POSITIVE Ethyl sulfate Ur Cfm-mCnc 53948 >=200 ng/mL PO SITIVE Busprione Ur Ql Cfm <25 >=25 ng/mL NONE DET ECTED Tizanidine Ur Ql Cfm >=25 >=25 ng/mL POSITIV E Tizanidine Ur Cfm-mCnc 157 >=25 ng/mL POSIT NILSA Dehydrotizanidine Ur Cfm-mCnc 17 >=5 ng/mL POSITIVE SSRI Profile Ur Ql Cfm >=50 >=50 ng/mL POSIT NILSA Norcitalopram Ur-mCnc >95858 >=50 ng/mL POSITI VE Synthetic Stimulants Ur Ql Cfm <1 >=1 ng/mL NONE DETECTED FURNACE RELINER Not Otherwise Specified Ur Ql Cfm <1 >=1 ng/mL NONE DETECTED Synthetic Cannabinoids Ur Ql Cfm <1 >=1 ng/m L NONE DETECTED Hallucinogens/Dissociatives Ur Ql Cfm <1 >=1 ng/mL NONE DETECTED Rn Ent Benzodiazepines Ur Ql Cfm <1 >=1 ng/mL NONE DETECTED Rn Ent Opioids Ur Ql Cfm <1 >=1 ng/mL N ONE DETECTED THC Ur Ql Scn <20 >=20 ng/mL NONE DETECTED [employer] Profil e (Not yet reviewed by provider) Interpretation: Performing Lab:[facility] (CLIA#: [id number]), [address] [place] [address], Director - Adelina Jensen Notes/Report: These tests were developed and their performance characteristics determined by [facility]. They have not been cleared or approved by the US Food and Drug Administration. Certifying Manager Wellness: Shalom Nicholson (Remote [phone]) Analyzed at [facility] (CLIA#: [id number]) - [address] [place] [address] - Horse Show Judge: Adelina Ontiveros Cital+Escital Ur CMP >53504 >=50 ng/mL COMPLIA NT: Test result is [...] expected with prescribed drug. Tramadol Ur CMP >43017 >=100 ng/mL COMPLIANT: T est result is consistent and expected with prescribed drug. Pregabalin Ur CMP <5 >=5 mcg/mL NON-COMPLI ANT: Test result indicates patient may not be taking drug prescribed. Ethyl Sulfate Ur CMP 49002 >=200 ng/mL PRESENT : Test result is consistent with alcohol exposure within 72 hours of specimen collection. For additional information, please consult the Clinical Team at or email [email or web address] Bio[employer] EXPECTED Test result is consistent with [...] >=100 ng/mL POSI TIVE Tramadol Ur Cfm-mCnc >61867 >=100 ng/mL POSITIV E N-Desmethyl Tram Ur Cfm-mCnc >45254 >=100 ng/mL POSITIVE Creat Ur-mCnc 275.9 20 - 370 mg/dL NORMAL Creatinine and pH are performed for specimen validity and not diagnostic purposes. pH Ur 6.04 4.5 - 9.0 NORMAL Creatinine and pH are performed for specimen validity and not diagnostic purposes. Alcohol Metabolites Ur Ql Cfm >=200 >=200 ng/mL POSITIVE Ethyl sulfate Ur Cfm-mCnc 99136 >=200 ng/mL PO SITIVE Busprione Ur Ql Cfm <25 >=25 ng/mL NONE DET ECTED SSRI Profile Ur Ql Cfm >=50 >=50 ng/mL POSIT NILSA Citalopram Ur Cfm-mCnc >79759 >=50 ng/mL POSIT NILSA Norcitalopram Ur-mCnc >55237 >=50 ng/mL POSITI VE SN Reuptake Inhibitors Ur Ql <5 >=5 ng/mL NONE DETECTED Synthetic Stimulants Ur Ql Cfm <1 >=1 ng/mL NONE DETECTED FURNACE RELINER Not Otherwise Specified Ur Ql Cfm <1 >=1 ng/mL NONE DETECTED Synthetic Cannabinoids Ur Ql Cfm <1 >=1 ng/m L NONE DETECTED Hallucinogens/Dissociatives Ur Ql Cfm <1 >=1 ng/mL NONE DETECTED Rn Ent Benzodiazepines Ur Ql Cfm <1 >=1 ng/mL NONE DETECTED Rn Ent Opioids Ur Ql Cfm <1 >=1 ng/mL N ONE DETECTED THC Ur Ql Scn <20 >=20 ng/mL NONE DETECTED Reason For Referral No Information Medications Medication SIG (Take, Route, Frequency, Duration) Notes Start Date End Date Status NIFEdipine ER 30 MG Oral for 90 Days Active Lisinopril 40 MG Oral for 90 Days Active Citalopram Hydrobromide 40 MG Oral for 90 Days Active Citalopram Hydrobromide 40 MG TAKE 1 TABLET BY MOUTH EVERY DAY Oral for 90 Days Active Belbuca 750 MCG 1 film Bucally every 12 hrs for 30 days Dose increase 09/12/2024 Active busPIRone HCl 10 MG Oral for 90 Days Active traMADol HCl 50 MG Take 1 tablet Oral three times per day for 30 days 09/12/2024 Active Lyrica 25 MG 1 capsule Orally Onc e a day 01/11/2024 Active Carvedilol 6.25 MG Oral for 90 Days Active tiZANidine HCl 2 MG Take 1 tablet Oral three times per day for 30 days Active Propafenone HCl ER 225 MG Oral for 30 Days Active Xarelto 20 MG Oral for 90 Days Active Problems Problem Type SNOMED Code ICD Code Onset Dates Problem Status W/U Status Risk Notes Problem Cervical spondylosis (579707716) Cervical spondylosis (M47.812) Active confirmed Problem Long-term current use of drug therapy (499302140) intermodal dispatcher use of drug (Z79.899) Active confirmed Problem Neck pain (82651855) Cervical spine pain (M54.2) Active confirmed Problem Hypertension (00097248) Hypertension (I10) 0 Active confirmed Problem Low back pain (247735507) Low back pain (M54.50) Active confirmed Vital Signs Heart Rate 61 /min 08/20/2024 Height-cm 160.02 cm 08/20/2024 Blood pressure diastolic 89 mm Hg 08/20/2024 Weight-kg 63.05 kg 08/20/2024 Height 5ft 3in in 08/20/2024 Blood pressure systolic 142 mm Hg 08/20/2024 Weight 139 lbs 08/20/2024 BMI 24.62 kg/m2 08/20/2024 Encounters Encounter Location Date Provider Diagnosis [facility] [address] [place] [address] [address] [place] [address] 11/21/2023 Nidhi Dick [facility] [address] [place] [address] [address] [place] [address] 11/27/2023 Nidhi Dick [facility] [address] [place] [address] [address] [place] [address] 12/26/2023 Nidhi Dick [facility] [address] [place] [address] [address] [place] [address] 01/11/2024 Nidhi Solnberg [facility] [address] [place] [address] [address] [place] [address] 01/25/2024 Johnathon Dick [facility] [address] [place] [address] [address] [place] [address] 02/26/2024 Nidhi Solnberg [facility] [address] [place] [address] [address] [place] [address] 03/25/2024 Nidhiludmila SolMayelin [facility] [address] [place] [address] [address] [place] [address] 04/25/2024 Nidhi Mayelin [facility] [address] [place] [address] 05/09/2024 Nidhi Dick [facility] [address] [place] [address] 06/18/2024 Nidhiludmila Dick [facility] [address] [place] [address] 07/16/2024 Nidhi Dick [facility] [address] [place] [address] 08/20/2024 Nidhi Mayelin [facility] [address] [place] [address] 09/12/2024 Johnathon Dick Telehealth [facility] [address] [place] [address] 09/12/2024 Lissette Colby [facility] [address] [place] [address] 11/21/2023 Lissette Colby Cervical spine pain M54.2 ; DDD (degenerative disc disease), lumbar M51.36 and alf use of drug Z79.899 Telehealth [facility] [address] [place] [address] 12/26/2023 Lissette Colby Cervical spine pain M54.2 ; DDD (degenerative disc disease), lumbar M51.36 ; Cervical spondylosis M47.812 and alf use of drug Z79.899 [facility] [address] [place] [address] 01/11/2024 Lissette Colby Cervical spine pain M54.2 ; Cervical spondylosis M47.812 ; DDD (degenerative disc disease), lumbar M51.36 ; Low back pain M54.50 ; Left knee pain M25.562 and alf use of drug Z79.899 [facility] [address] [place] [address] 02/26/2024 Lissette Colby Cervical spondylosis M47.812 ; Cervical spine pain M54.2 ; Low back pain M54.50 ; On terminal worker drug therapy Z79.899 and Screening for substance abuse Z13.89 Telehealth [facility] [address] [place] [address] 03/25/2024 Sussy Issa Cervical spondylosis M47.812 ; Cervical spine pain M54.2 ; Low back pain M54.50 and intermodal dispatcher use of drug Z79.899 [facility] [address] [place] [address] [address] [place] [address] 04/25/2024 Lissette Colby Cervical spondylosis M47.812 ; Cervical spine pain M54.2 ; Low back pain M54.50 and alf use of drug Z79.899 Telehealth [facility] [address] [place] [address] [address] [place] [address] 05/09/2024 Lissette Colby Cervical spine pain M54.2 ; Cervical spondylosis M47.812 and On care home drug therapy Z79.899 [facility] [address] [place] [address] [address] [place] [address] 06/18/2024 Lissette Colby Cervical spondylosis M47.812 ; Cervical spine pain M54.2 and intermodal dispatcher use of drug Z79.899 Telehealth [facility] [address] [place] [address] [address] [place] [address] 07/16/2024 Lissette Colby Cervical spine pain M54.2 ; Low back pain M54.50 ; Cervical spondylosis M47.812 and intermodal dispatcher use of drug Z79.899 [facility] [address] [place] [address] [address] [place] [address] 08/20/2024 Lissette Colby Cervical spondylosis M47.812 ; Cervical spine pain M54.2 ; Low back pain M54.50 and intermodal dispatcher use of drug Z79.899 [facility] [address] [place] [address] [address] [place] [address] 09/26/2023 Nidhi Dick [facility] [address] [place] [address] [address] [place] [address] 10/12/2023 Nidhi Dick Assessments Encounter Date Diagnosis (ICD [...] be filled Refill of tizanidine sent to [facility] Continue home stretching and at [...] Cervical spondylosis (ICD-10 - M47.812) 05/09/2024 On terminal worker drug therapy (ICD-10 - Z79.899) 08/20/2024 Cervical spine pain (ICD-10 - M54.2) 07/16/2024 Cervical spondylosis (ICD-10 - M47.812) 06/18/2024 alf use of drug (ICD-10 - Z79.899) 02/26/2024 Low back pain (ICD-10 - M54.50) 04/25/2024 Cervical spine pain (ICD-10 - M54.2) 03/25/2024 Low back pain (ICD-10 - M54.50) 11/21/2023 intermodal dispatcher use of drug (ICD-10 - Z79.899) 01/11/2024 DDD (degenerative disc disease), lumbar (ICD-10 - M51.36) 12/26/2023 Cervical spondylosis (ICD-10 - M47.812) 12/26/2023 intermodal dispatcher use of drug (ICD-10 - Z79.899) 01/11/2024 Low back pain (ICD-10 - M54.50) 02/26/2024 On terminal worker drug therapy (ICD-10 - Z79.899) 03/25/2024 alf use of drug (ICD-10 - Z79.899) 04/25/2024 Low back pain (ICD-10 - M54.50) 07/16/2024 alf use of drug (ICD-10 - Z79.899) 08/20/2024 Low back pain (ICD-10 - M54.50) 08/20/2024 intermodal dispatcher use of drug (ICD-10 - Z79.899) 04/25/2024 alf use of drug (ICD-10 - Z79.899) 02/26/2024 Screening for substance abuse (ICD-10 - Z13.89) 01/11/2024 Left knee pain (ICD-10 - M25.562) 01/11/2024 alf use of drug (ICD-10 - Z79.899) 08/20/2024 [...] 02/26/2024 Synthetic Stimulants 06/18/2024 Synthetic Stimulants 02/26/2024 Rn Ent Benzodiazepines 02/26/2024 Rn Ent Benzodiazepines 06/18/2024 Synthetic Cannabinoids 06/18/2024 Synthetic Cannabinoids 02/26/2024 Rn Ent Opioids 02/26/2024 Rn Ent Opioids 06/18/2024 Hallucinogens/Dissociatives 02/26/2024 Hallucinogens/Dissociatives 06/18/2024 FURNACE RELINER Other 06/18/2024 FURNACE RELINER Other 02/26/2024 Marijuana - Urine 02/26/2024 Marijuana - Urine 06/18/2024 [facility] Medication Compliance - Urine 1 04/27/2023 [facility] Medication Compliance - Urine 0 06/18/2024 [facility] Required Information 06/18/2024 [facility] Required Information 02/26/2024 [facility] Labs Healthcare Profile 06/18/2024 Insurance Providers Payer Name Payer Address Payer Phone Subscriber Number Group Number Insured Name Patient Relationship to Insured Coverage Start Date Coverage End Date [facility] [address] [place] [address] [id number] Susannah Camargo Self - patient is the insured Medical (General) History Medical History History ICD Code hyperlipidemia hypertension Atrial fibrillation Surgical History Surgery Date(Month/Year) B TKR B THR oophorectomy gastric sleeve 03/2020 Hospitalization History Reason Date(Month/Year) no hospitalizations since prior visit
[2024-09-14 12:40] LABS: Alanine Aminotransferase 40 U/L (6-35); Albumin Level 3.1 g/dL (3.5-5.1); Alkaline Phosphatase 503 U/L (38-126); Aspartate Amino Transferase 39 U/L (14-36); Bilirubin,Total 0.9 mg/dL (0.2-1.3)
== END 2024-09-14 11:46 | disposition home or self-care (01) ==
PROVIDERS: PCP Physician Assistant
DX: R79.89 Other specified abnormal findings of blood chemistry (principal)
CPT/HCPCS: 36415; 80076

== ENCOUNTER 2024-10-02 09:41 | Outpatient (CLI) | payer MEDICARE, SELFPAY ==
--- OUTSIDE RECORDS SUMMARY | 2024-10-02 10:39 | XMS_ITS | Encounter Summary ---
Author Organization [facility] Address [address] [place] [address] Phone Care Team Providers Care Factory Laborer Name Role Phone Arianna Persaud Unavailable [phone] Leonidas Rubio MD Primary Care Provider David Brewer MD Unavailable [phone] Haven Cox MD Unavailable [phone] Daisy Mercado MD Unavailable [phone] Encounter Details Date Type Department Care Team (Late st Contact Info) Description 09/20/2024 Results Follow-Up [facility] [address] [place] [address] Medical Office Building [address], [address] [place] [address] David Brewer MD [address] [place] [address] CT Body Outside Consult Social History Tobacco Use Types Packs/Day Years [...] doctor or pharmacy Never 04/11/2023 [facility] Utilities Answer Date Recorded In the past 12 months has e File[employer], gas, oil, or water company threatened to [...] often do you attend chur ch or episcopal services? Never 02/27/2023 Do you belong to any clubs o r organizations such as taoist groups, unions, fraternal or athletic groups, or school groups? No 02/27/2023 How often do you attend meet ings of the clubs or organizations you belong to? Never 02/27/2023 Are you , , di vorced, , never , or living with a partner? 02/27/2023 AUDIT-C Answer Date Recorded Q1: How often do you have a drink containing alcohol? Never 09/19/2024 Q2: How many drinks containi ng alcohol do you have on a typical day when you are drinking? Patient does not drink Q3: How often do you have si x or more drinks on one occasion? Never 09/19/2024 Overall Financial Resource Strain (CARDIA) Answe r [...] place to sleep or slept in a halfway (including now)? No 02/27/2023 Personal Safety Answer Date Recorded Have you ever been in or are you currently in a harmful physical or emotional relationship or is someone making you feel afraid or unsafe? Denies 09/19/2024 Comments No Sex and Gender Information Value Date Recorded Sex Assigned at Not on file Legal Sex Female 6:30 PM COMPOSITION ROOFER Gender Identity Not on file Sexual Orientation Not on file documented as of this encounter Plan of Treatment Not on file documented as of this encounter Visit Diagnoses Not on filedocumented in this encounter Care Teams Factory Laborer Relationship Specialty Start Date End Date Leonidas Rubio MD [address] [address] PCP - General Family Medicine 09/05/24 Arianna Persaud PA [address] [place] [address] Physician Office Manager Receptionist 08/29/24 David Brewer MD [address] [place] [address] Referring Physician Gastroenterology 09/23/24 Haven Cox MD [address] [place] [address] Consulting Physician Medical Oncology 09/23/24 Daisy Mercado MD [address] [facility] [address] [place] [address] Consulting Physician General Surgery 09/23/24 documented as of this encounter
--- OUTSIDE RECORDS SUMMARY | 2024-10-02 10:39 | XMS_ITS | Encounter Summary ---
Author Organization [facility] [address] [place] [address] Care Team Providers Care Urology Teacher Name Role Phone Linette Yepez MD Primary Care Provider [phone] Reason for Visit * Reason Onset Date Comments MEDICAL MANAGEMENT 04/13/2020 [facility]ENNIFER W/ [facility]/ [facility] Encounter Details Date Type Department Care Team ([facility] st Contact Info) Description 04/13/2020 Telephone [facility] Admitting [address] [place] [address] [place] MD [address] [place] [address] [place] [address] MEDICAL MANAGEMENT (JENNIFER Nettles/ RAVI Nettles/ HOSPITALIST [...] COVID-19? No / Unsure 04/13/2020 6:46 AM ELECTROMECHANICAL EQUIPMENT TESTER documented as of this encounter Plan of Treatment Not on file documented as of this encounter Visit Diagnoses Not on filedocumented in this encounter Care Teams Urology Teacher Relationship Specialty Start Date End Date Linette Yepez MD PCP - General Family Practice 04/01/20 documented as of this encounter
--- OUTSIDE RECORDS SUMMARY | 2024-10-02 10:39 | XMS_ITS | Encounter Summary ---
Author Organization [facility] Address [address] [place] [address] Phone Care Team Providers Care Body Sander Name Role Phone Arianna Persaud Unavailable [phone] Leonidas Rubio MD Primary Care Provider David Brewer MD Unavailable [phone] Haven Cox MD Unavailable [phone] Daisy Mercado MD Unavailable [phone] Encounter Details Date Type Department Care Team (Late st Contact Info) Description 09/20/2024 Results Follow-Up [facility] Gastroenterology [address] [place] [address] Medical Office [address], [address] [place] [address] David Brewer MD [address] [place] [address] Surgical pathology Social History Tobacco Use Types Packs/Day Years Used Date Smoking Tobacco: Never Smokeless Tobacco: Never Alcohol Use Standard Drinks/Week Comments No 0 (1 standard drink = 0.6 oz pur e alcohol) OASIS D0700: Social Isolation Answer Da [email or web address] Recorded Frequency of experiencing loneliness or isolatio n Never 04/11/2023 OASIS A1250: Transportation Answer Date Recorded Lack of Transportation (Medical) No 04/11/2023 Lack of Transportation (Non-Medical) No 04/11/2023 Patient Unable or Declines to Respond No 04/11/2023 OASIS B1300: Health Literacy Answer Devan e Recorded Frequency of needing help to read materials from doctor or pharmacy Never 04/11/2023 [facility] Utilities Answer Date Recorded In the past [...] often do you attend chur ch or alevism services? Never 02/27/2023 Do you belong to any clubs o r organizations such as jehovah's witness groups, unions, fraternal or athletic groups, or [...] place to sleep or slept in a custodial (including now)? No 02/27/2023 Personal Safety Answer Date Recorded Have you ever been in or are you currently in a harmful physical or emotional relationship or is someone making you feel afraid or unsafe? Denies 09/19/2024 Comments No Sex and Gender Information Value Date Recorded Sex Assigned at Not on file Legal Sex Female 6:30 PM DIRECTOR OF HOSPITALITY Gender Identity Not on file Sexual Orientation Not on file documented as of this encounter Plan of Treatment Not on file documented as of this encounter Visit Diagnoses Not on filedocumented in this encounter Care Teams Body Sander Relationship Specialty Start Date End Date Leonidas Rubio MD [address] [address] PCP - General Family Medicine 09/05/24 Arianna Persaud PA [address] [place] [address] Physician Radiation Protection Specialist 08/29/24 David Brewer MD [address] [place] [address] Referring Physician Gastroenterology 09/23/24 Haven Cox MD [address] [place] [address] Consulting Physician Medical Oncology 09/23/24 Daisy Mercado MD [address] [facility] [address] [place] [address] Consulting Physician General Surgery 09/23/24 documented as of this encounter
--- OUTSIDE RECORDS SUMMARY | 2024-10-02 10:39 | XMS_ITS | Referral Summary ---
Author Organization [facility] Address [address] [place] [address] Care Team Providers Care Program Assistant Name Role Phone Arianna Persaud Unavailable [phone] Leonidas Rubio MD Primary Care Provider David Brewer MD Unavailable Haven Cox MD Unavailable [phone] Daisy Mercado MD Unavailable [phone] Encounters Date Type Department Care Team Description 5 1:45 PM CDT Office Visit [facility] Cardiology [address] [facility] [place] [phone] Onesimo George MD Atrial fibrillation status post cardioversion (HCC) (Primary Dx); History of cardiac radiofrequency ablation; Essential hypertension; Pancreatic adenocarcinoma (HCC); NOMI on CPAP; Lipid screening 5 Results Follow-Up [facility] Gastroenterology [address] [place] [address] Medical Office Building 4, [address] [place] [phone] Body Outside Consult 5 Results Follow-Up [facility] [address] [place] [address] Medical Office Building 4, [address] [place] [address] David Brewer MD Surgical pathology 5 10:17 AM CDT - 5 2:37 PM CDT Emergency [facility] [address] [facility] [address] [place] [address] Morgan Celestin MD Das, Koushik Kumar, MD Fall, initial encounter (Primary Dx); Pancreatic mass Discharge Disposition: Discharge to home or self care 5 12:40 PM CDT Anesthesia Event [facility] [address] [facility] [address] [place] [address] Travis Whittington MD 5 9:30 AM CDT - 5 10:30 AM CDT Surgery [address] [place] [address] David Brewer MD ESOPHAGOGASTRODUODENOSCOPY ULTRASOUND FINE NEEDLE ASPIRATION/BIOPSY [GI534] 5 Telephone [facility] Department of Hepatobiliary, Pancreatic, & Gastrointestinal Surgery [address] [facility] Advanced Medicine 12th Floor, [place] [address] Hilda Love PA 5 12:15 PM CDT Lab [facility] at [address] [place] [address] Pancreatic mass; 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, unspecified; Encounter for follow-up examination after completed treatment for conditions other than malignant neoplasm 5 Telephone [facility] Surgery [address] [place] [address] [address] [place] [phone] Susan Marroquin RN 5 8:30 AM CDT Office Visit [facility] Surgery [address] [place] [address] [address] [place] [address] Daisy Mercado MD Pancreatic mass (Primary Dx); Other specified diseases of pancreas; Encounter for follow-up examination after completed treatment for conditions other than malignant neoplasm; Neoplasm of uncertain behavior of other specified digestive organs 5 Orders Only [facility] Surgery [address] [facility] [address] [place] [phone] Ana Sánchez PA Liver lesion (Primary Dx) 5 Orders Only [facility] Gastroenterology [address] [place] [address] Medical Office Building 4, [address] [place] [phone] David Brewer MD Elevated liver function tests (Primary Dx) 5 12:53 PM CDT - 5 11:59 PM CDT Hospital Encounter [facility] [address] [place] [phone] Pancreatic mass Discharge Disposition: Discharge to home or self care 5 Telephone [facility] [address] [place] [address] Medical Office Building 4, [address] [place] [address] Arlyn Segovia, family coach call 5 Orders Only [facility] [address] [place] [address] Medical Office Building 4, [address] [place] [address] Arlyn Segovia, AUSTEN Pancreatic mass (Primary Dx) 5 Results Follow-Up [facility] [address] [place] [address] Medical Office Building 4, [address] [place] [phone] David Brewer MD Surgical pathology 5 Telephone [facility] Surgery [address] [place] [address] [address] [place] [phone] Susan Marroquin RN 5 Orders Only [facility] [address] [place] [phone] David Brewer MD 5 1:07 PM CDT Anesthesia Event [facility] [address] [place] [phone] Wayne Nicholson MD 5 10:35 AM CDT Lab [facility] Outpatient Lab [address] [place] [phone] Pancreatic mass; Elevated liver function tests 5 6:50 AM CDT - 5 11:59 PM CDT Hospital Encounter [facility] [address] [place] [phone] Upper abdominal pain Discharge Disposition: Discharge to home or self care 5 12:30 PM CDT - 5 1:00 PM CDT Surgery [facility] [address] [place] [phone] David Brewer MD ESOPHAGOGASTRODUODENOSCOPY ULTRASOUND GUIDE LIMITED 5 11:07 AM CDT - 5 4:10 PM CDT Hospital Encounter [facility] [address] [place] [phone] Geoffrey Shaver MD Das, Koushik Kumar, MD Pancreatic mass; Elevated liver function tests Discharge Disposition: Discharge to home or self care 5 1:04 PM CDT - 5 11:59 PM CDT Hospital Encounter [facility] [address] [place] [address] Diagnosis unknown Discharge Disposition: Discharge to home or self care 5 Telephone [facility] Cardiology [address] [address] [address], [place] [address] Onesimo George MD cardiac clearance 5 Telephone [facility] [address] [facility] Medical Office Building 4, [address] [place] [address] Carmen Ordonez LPN GI Preprocedure 5 Telephone [facility] - [facility] Minimally Invasive Surgery [address] [place] [address] Advanced Medicine 12th Floor, [place] [address] Daisy Mercado MD Medical Question/Miscellaneous 5 Orders Only [facility] Surgery [address] [facility] [address] [place] [address] Ana Sánchez PA Pancreatic mass (Primary Dx); Encounter for follow-up examination after completed treatment for conditions other than malignant neoplasm; 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, unspecified from Last 3 Months Allergies Active Allergy Reactions Criticality Noted Date Comments Gluten Diarrhea Low 11/21/2013 Hydrocodone Itching,Rash Medium 09/17/2024 Lactose Stomach upset,Other (See comments) Low 09/24/2014 GI upset, abdominal pain Oxycodone Itching,Rash Medium 09/17/2024 Medications syringe with needle (Syringe 3cc/25Gx1) 3 mL 25 gauge x 1 syringe 1 Syringe every 30 (thirty) days 3 each 022 Active Eclipse Syringe 3 mL 25 gauge x 1 syringe USE 1 EACH EVERY 30 DAYS 3 each 2 023 Active busPIRone (BUSPAR) 7.5 mg tablet TAKE 1 TABLET(7.5 MG) BY MOUTH THREE TIMES DAILY 90 tablet 2 023 Active citalopram (CeleXA) 40 mg tablet Take 1 tablet (40 mg total) by mouth daily 90 tablet 023 Active ondansetron ODT (ZOFRAN-ODT) 4 mg disintegrating tablet Take 1 tablet (4 mg total) by mouth every 8 (eight) hours as needed for nausea or vomiting 20 tablet 023 Active hydrOXYzine (ATARAX) 25 mg tablet Take 1 tablet (25 mg total) by mouth every 8 (eight) hours as needed (nausea) [address] (PROTONIX) 40 mg EC tabletIndications :Stress Ulcer Prophylaxis Take 1 tablet (40 mg total) by mouth daily Active loperamide (IMODIUM A-D) 2 mg tabletIndications :diarrhea Take 1 tablet (2 mg total) by mouth 3 (three) times a day as needed for diarrhea Active rivaroxaban (XARELTO) 20 mg tablet Take 1 tablet (20 mg total) by mouth daily 90 tablet 3 025 Active NIFEdipine (NIFEdipine CC) 30 mg 24 hr tablet TAKE 1 TABLET(30 MG) BY MOUTH EVERY NIGHT 30 tablet 3 025 Active lisinopriL (PRINIVIL,ZESTRIL ) 40 mg tablet TAKE 1 TABLET(40 MG) BY MOUTH DAILY 90 tablet 3 025 Active pancrelipase (Zenpep) 40,000-126,000- 168,000 unit per capsuleIndication s:exocrine pancreatic insufficiency Take 1 capsule by mouth 3 (three) times a day with meals 45 capsule 1 025 Active tiZANidine (ZANAFLEX) 2 mg tablet Take 1 tablet (2 mg total) by mouth 3 (three) times a day 025 Active hyoscyamine (OSCIMIN) 0.125 mg DISSOLVE 1 TABLET ON THE TONGUE FOUR TIMES DAILY 025 Active methadone (DOLOPHINE) 10 mg tablet 025 Active carvediloL (COREG) 6.25 mg tablet Take 1 tablet (6.25 mg total) by mouth 2 (two) times a day 60 tablet 5 025 Active propafenone SR (RYTHMOL SR) 225 mg 12 hr capsuleIndication s:Prevention of Recurrent Atrial Fibrillation Take 1 capsule (225 mg total) by mouth 2 (two) times a day 60 capsule 11 025 2025 Active multivitamin tablet tablet Take one by mouth one time per day 0 0 008 2024 Discontinued vitamin E 400 unit capsule Take one by mouth one time per day 0 0 008 2024 Discontinued(N o longer taking - Do not display on AVS) albuterol HFA (PROVENTIL HFA,VENTOLIN HFA,PROAIR HFA) 90 mcg/actuation inhaler Inhale 1 puff every 6 (six) hours as needed for wheezing 2024 Discontinued Dodex 1,000 mcg/mL injection ADMINISTER 1 ML(1000 MCG) IN THE MUSCLE EVERY 30 DAYS DIRECTED 1 mL 3 023 2024 Discontinued turmeric root extract 500 mg capsuleIndication s:suppliment Take 500 mg by mouth daily. Indications: suppliment 2024 Discontinued(N o longer taking - Do not display on AVS) folic acid (FOLVITE) 400 mcg tabletIndications :Folate Deficiency Take 1 tablet (400 mcg total) by mouth daily 2024 Discontinued CHOLECALCIFEROL, VITAMIN D3, ORALIndications:s uppliment Take 5,000 Units by mouth daily. Indications: suppliment 2024 Discontinued ascorbic acid (ascorbic acid with bonita hips) 500 mg tablet,chewableIn dications:supplim ent Take 1 tablet/chew tab (500 mg total) by mouth daily 2024 Discontinued FeroSuL 325 mg (65 mg iron) tablet Take 1 tablet (325 mg total) by mouth daily 024 2024 Discontinued Belbuca 600 mcg film buccal film TAKE 1 FILM BY MOUTH TWICE DAILY X 30 DAYS 024 2024 Discontinued propafenone SR (RYTHMOL SR) 225 mg 12 hr capsuleIndication s:Prevention of Recurrent Atrial Fibrillation Take 1 capsule (225 mg total) by mouth 2 (two) times a day 60 capsule 11 024 2024 Discontinued(R eorder) carvediloL (COREG) 6.25 mg tablet TAKE 1 TABLET(6.25 MG) BY MOUTH TWICE DAILY WITH MEALS 60 tablet 5 024 2024 Discontinued(R eorder) lisinopriL (PRINIVIL,ZESTRIL ) 40 mg tablet Take 1 tablet (40 mg total) by mouth daily 90 tablet 3 025 2024 Discontinued(D uplicate order) Belbuca 750 mcg film buccal film 1 film Bucally every 12 hrs 30 days 025 2024 Discontinued traMADoL (ULTRAM) 50 mg tablet Take 1 tablet Oral three times per day for 30 days 025 2024 Discontinued Active Problems Problem Noted Date Diagnosed Date Pancreatic mass 09/04/2024 Elevated liver function tests 09/04/2024 Intractable pain 02/25/2023 Dizziness 11/07/2022 Mixed anxiety and depressive disorder 06/21/2022 Assessment & Plan (06/21/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 Feels more anxiety than depression. Admits panic attacks. Reluctant to start daily medication, don't want to feel trapped into taking medicine. Will Rx BuSpar as directed. Encouraged relaxation techniques such as deep breathing and guided imagery. Keep follow as scheduled, sooner if needed. 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 No more urinary symptoms or abdominal pain. No acute findings on exam. Will order CDiff test. Advised on Bowel rest: push fluids, bland high fiber diet. Continue immodium if needed. 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 Denies discharge or genital lesions. exam deferred per pt request. Rxd Diflucan as directed. Use mild non-fragrant soaps/lotions. 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 Continue current regimen and low salt diet. Stay hydrated. 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 Goal < 130/80. 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 Gender Identity Not on file Sexual Orientation Not on file Last Filed Vital Signs Vital Sign Reading Time Taken Comments Blood Pressure 128/80 09/27/2024 1:23 PM CDT Pulse 74 09/27/2024 1:23 PM CDT Temperature 36.6 C (97.9 F) 09/19/2024 1:24 PM CDT Respiratory Rate 14 09/27/2024 1:23 PM CDT Oxygen Saturation 96% 09/27/2024 1:23 PM CDT Inhaled Oxygen Concentration - - Weight 63.5 kg (140 lb) 09/27/2024 1:23 PM CDT Height 154.9 cm (5' 1) 09/27/2024 1:23 PM CDT Body Mass Index 26.45 09/27/2024 1:23 PM CDT Plan of Treatment Not on file Medical Devices Implanted Type Area Helicopter Mechanic Device Identifier Shelf Expiration Date Model / Serial / Lot SafetyCertified Chris Viabil 10mm X 6cm Shortwire [id number] - [id number] - [id number] Implanted:Qty: 1 on 09/06/2024 by David Brewer MD at [facility] Stent N/A: Bile Duct Conmed Chris 06/19/2027 [id number] / [id number] / Procedures Procedure Name Priority Date/Time Associated Diagnosis Comments POCT LIPID PANEL Routine 09/27/2024 1:34 PM CDT Lipid screening ELECTROCARDIOGRAM REPORT Routine 025 1:27 PM CDT Essential hypertension US ENDOSCOPIC IP Routine 09/19/2024 1:21 PM CDT Pancreatic mass SURGICAL PATHOLOGY Routine 09/19/2024 1:07 PM CDT Pancreatic mass UPPER EUS 09/19/2024 12:32 PM CDT CEA Routine 09/17/2024 10:32 AM CDT Pancreatic mass Encounter for follow-up examination after completed treatment for conditions other than malignant neoplasm CANCER ANTIGEN 19-9 Routine 09/17/2024 10:32 AM CDT Pancreatic mass 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, unspecified CT CHEST W AND ABDOMEN PELVI S [...] unknown from Last 3 Months Results * POCT lipid panel (09/27/2024 1:34 PM CDT) Cholesterol, POC 132 <200 MG/DL HDL, POC 67 >=40 mg/dL Triglycerides, POC 45 <=149 mg/dL LDL Cholesterol POC 52 <=129 mg/dL Chol/HDL Ratio, POC 2.0 NONE Non-HDL Cholesterol, POC 64 NONE mg/dL Cholesterol Total, POC 132 30 - 199 mg/dL Capillary blood 09/27/2024 1 :34 PM CDT us Onesimo George MD POINT OF CARE TEST ORDERABLES Fi nal Result * Electrocardiogram Report (09/27/2024 1:27 PM CDT) us Onesimo George MD ECG ORDERABLES Edited Result - Final * Surgical pathology (09/19/2024 1:07 PM CDT) Tissue (Pancreas, Biopsy) 09/19/2024 1:07 PM CDT Narrative PATHOLOGY [facility] - 09/20/2024 2:24 PM CDT EPIC results best viewed via link to PDF [facility] of Surgical Pathology [facility] [place] [address] Note to Patients: This report may contain [...] and explain the details. SURGICAL PATHOLOGY REPORT FINAL Patient Name: SUSANNAH GONCALVES Gender: F : 1950 (Age: 73) Address: [address] [place] [address] Hospital #: [id number] Taken:09/19/2024 Received:09/19/2024 Reported: 09/20/2024 Patient Type: [facility] Service: Emergency Location: [facility] Physician(s): Puma Wagner M.D. Natasha Leah Goldie Leigh, MD Diagnosis: Pancreas, neck, mass, fine needle biopsy - Rare atypical glands/single cells and focal perineural invasion, compatible with invasive pancreatic adenocarcinoma - Scant tumor cellularity; likely insufficient for further molecular testing b/09/20/2024 14:24 By this signature, I attest that the above diagnosis is based upon my personal examination of the slides(and/or other material indicated in the diagnosis). Arpit Arroyo M.D. Report Electronically Reviewed and Signed Out By Arpit Arroyo M.D. 09/20/2024 14:24:18 Microscopic Description and Comment: Microscopic examination substantiates the above cited diagnosis. This result was flagged as significant and was sent to Dr. Brewer via email on 09/19/24. Reason(s): To the best of our knowledge, this is the first diagnosis of this type of malignancy rendered for this patient. This case was shown at intradepartmental GI/Liver pathology consensus conference on 09/20/24, with agreement on the above stated findings and diagnosis. History: The patient is a 73-year-old woman presenting for pancreatic mass. Operative procedure: Upper endoscopy ultrasound fine-needle aspiration/biopsy. Specimen(s) Received: A: Pancreas neck mass--FNB Gross Description: Received in formalin, labeled with the patient s identifiers and pancreas neck mass FNB are multiple cores and fragments of tissue admixed with hemorrhagic material (measuring 3.7 by 1.1 x 0.1 cm in aggregate). Labeled A1. Jar 0. [facility]/09/19/2024 15:19 PA(s): Evelyn Cunningham By this signature, I attest that the above diagnosis is based upon my personal examination of the slides(and/or other material). Addenda/Procedures The performance characteristics of some immunohistochemical stains, fluorescence in-situ hybridization tests and immunophenotyping by flow cytometry cited in this report (if any) were determined by the Surgical Pathology and Flow Cytometry Departments at [facility] as part of an ongoing type disk quality control supervisor program and in compliance with federally mandated regulations drawn from the Clinical Laboratory Improvement Act of 1988 (CLIA '88). Some of these tests rely on the use of analyte specific reagents and are subject to specific labeling requirements by the US Food and Drug Administration. Such diagnostic tests may only be performed in a facility that is certified by the Department of Health and Human Services as a high complexity laboratory under CLIA '88. The FDA has determined that such clearance or approval is not necessary. This test is used for clinical purposes. It should not be regarded as investigational or for research. Nevertheless, federal rules concerning the medical use of analyte specific reagents require that the following disclaimer be attached to the report: This test was developed and its performance characteristics determined by the Surgical Pathology and Flow Cytometry Departments of [facility]. It has not been cleared or approved by the U. S. Food and Drug Administration. IMAGES AND SCANNED DOCUMENTS, IF INCLUDED, ONLY VIEWABLE IN PDF VERSION OF REPORT us David Brewer MD LAB PATHOLOGY ORDERABLES Fi nal Result PATHOLOGY [facility] 3rd Floor [place], [place] [phone] * Upper EUS (09/19/2024 12:32 PM CDT) Anatomical Region Laterality Modality Other Narrative Procedure Note David Brewer MD - 09/19/2024 12:32 PM CDT GI ENDOSCOPY [facility] Patient Name: Susannah Goncalves Procedure Date: 09/19/2024 12:32 PM Date of : 1950 Admit Type: Outpatient Age: 73 Gender: Female Attending MD: David Brewer M.D. Room: [facility] ENDOSCOPY ROOM 1 Note Status: Finalized Procedure: Upper EUS Indications: Suspected mass in pancreas on CT scan; h/oPanreatic head/neck mass with biliary obstruction s/pEUS/ERCP 09/06/2024 with placement of fully covered metal biliary stent and FNB with atypical pathology, not definitive for malignancy. Here for repeat biopsy attempt. Referring MD: Daisy Mercado M.D., Leonidas Rubio M.D. Providers: David Brewer M.D. Medicines: Monitored Anesthesia Care Complications: No [...] were discussed and informed consent was obtained.The Olympuscurved linear array therapeutic [id number] was introduced through the mouth, and advanced tothe second part of duodenum The GIF [id number] endoscope was introduced through the mouth, and advanced to the second part of duodenum The upperEUS was accomplished without difficulty. The patient tolerated the procedure well. Findings: ENDOSCOPIC FINDING: : The examined esophagus was normal. The patient is post a sleeve gastrectomy which ispatent/non-strictured but severely reduces the mobility of scope passage. The examined duodenum was normal. ENDOSONOGRAPHIC FINDING: : The esophagus and stomach were visualized endosonographically. EUS examination was again challenging due to a combination of priorsleeve gastrectomy procedure and abdominal ascites making advancement of the EUS scope challenging and mobility severely restricted. The scopecould not readily be advanced into the antrum on todays exam and so primary evaluation today was trans-body views for the objective of tissue aquisition. In the neck/head of the pancreas there was a large, >2cm, hypoechoic mass causing upstream dilation of the pancreatic duct to 6mm. Therewas severe atrophy of the visualized pancreatic body/tail. Fine needle aspiration for histology was performed. Color Doppler imaging was utilized prior to needle puncture to confirm a lack of significant vascular structures within the needle path. Three passes were madewith the 22 gauge AdorStyle needle using a transgastric approach. A stylet was used. Final histology results are pending. A visible core oftissue was obtained. A moderate amount of fluid, visualized as an anechoic feature, wasfound in the peritoneal cavity. Impression: - EUS examination was again challenging due to a combination of prior sleeve gastrectomy procedureand abdominal ascites making advancement of the EUSscope challenging and mobility severely restricted. The scope could not readily be advanced into the antrumon todays exam and so primary evaluation today was trans-body for the objective of tissueaquisition. - In the neck/head of the pancreas there was alarge, >2cm, hypoechoic mass causing upstream dilation ofthe pancreatic duct to 6mm. There was severe atrophy of the visualized pancreatic body/tail. Fine needle aspiration for histology was performed. Final histology results are pending. - Moderate abdominal ascites. Recommendation: - Observe patient's clinical course followingtoday's EGD/EUS. - Await pathology results. Pending pathologyresults refer patient to medical oncology. - Resume Xarelto in 48 hours. - Please avoid NSAIDs [...] following this procedure please call my officeat [phone] ([phone]) to speak to my nurses. After hours and evenings please call [phone] speak to the GI fellow control clerk head. Please tell themthat Dr. Brewer did your procedure and that your were instructed to have the fellow call me or thephysician covering for me to discuss the management of your condition. If you have an urgent problem, please goto the nearest emergency room and have the ER doctorcall my office during the day or [facility] transfer ([phone]) center after hours and weekends to arrange admission or transfer to our facility. - Call my nurse Arlyn Seogvia RN in the GI office at [phone] for your final pathology results in 7 days. Attending Participation: I personally performed the entire procedure. Electronically Signed By: aDvid Brewer M.D. David Brewer M.D. 09/19/2024 1:28:33 PM . Number of Addenda: 0 Note Initiated On: 09/19/2024 12:32 PM David Brewer MD ENDOSCOPY PROCEDURES Final Result * (ABNORMAL) Cancer antigen 19-9 (09/17/2024 10:32 AM CDT) CA 19-9 ag 47.6(H) 0.0 - 35.0 units/mL Comment: Interpretive Data The Sree CA 19-9 assay procedure was used. Results from different manufacturers or methods may not be comparable. Serial testing should be performed using the same method. Testing performed by: [facility] Formerly [facility], [place]., [address] Blood 09/17/2024 10:3 2 AM CDT 09/17/2024 7:30 PM CDT Ana RODRIGUES LAB BLOOD ORDERABLES Gail l Result Performing Organization Address [facility] Co de Phone Number ENRIQUE BJWCH [address] Ирина August. Department of [employer] [place] [address] * (ABNORMAL) CEA (09/17/2024 10:32 AM CDT) CEA 5.2(H) <=5.0 ng/mL Comment: Interpretive Data Reference Range: Non-Smokers: < or = 3.0 ng/mL Some Smokers may have elevated levels, usually < 5.0 ng/mL The Sree CEA assay procedure was used. Results from different manufacturers or methods may not be comparable. Serial testing should be performed using the same method. Testing performed by: [facility], [address] [place] [address], [place]., [address] Blood 09/17/2024 10:3 2 AM CDT 09/17/2024 7:30 PM CDT Ana RODRIGUES LAB BLOOD ORDERABLES Gail l Result Performing Organization Address [facility] Co de Phone Number ENRIQUE BJWCH [address] Ирина Augustrubina. [employer] [place] [employer] [place] [address] * CT Chest W and Abdomen Pelvis [...] signed by: Segun Bailey M.D. Ana RODRIGUES [facility] PROCEDURES Final R esult * FL ERCP Biliary Duct (09/06/2024 1:42 PM CDT) Narrative [facility] - 09/06/2024 1:53 PM CDT The images from this study are not interpreted by Radiology. Please refer to the physician's procedure / OR operative note. David Brewer MD [facility] FLUOROSCOPY PROCEDURES Final Result [facility] * Surgical pathology (09/06/2024 1:25 PM CDT) Lymph node, needle biopsy 09/06/2024 1:25 PM CDT 09/10/2024 11:26 AM CDT Narrative 09/11/2024 3:14 PM CDT [address] [address] Tele: Roxana Gordon MD - Manager Therapy Note to Patients: This report may contain [...] PATHOLOGY REPORT Patient Name: SUSANNAH GONCALVES Address: [address] [place] [address] Gender: F : 1950 (Age: 73) Service: Gastro Location: [facility], Hospital #: [id number] Patient Type: [facility] SURGERY Taken: 09/06/2024 Received 09/10/2024 Reported: 09/11/2024 Physician(s): Puma Wagner MD Jason E. Barnett, M.D. DIAGNOSIS: Pancreas, head, fine needle biopsies: - Focal atypical glands (see description) [facility] [place]/09/11/2024 15:14 Examining Pathologist: Alek Flowers M.D. Report [...] filtered and submitted entirely in cassette A1. JAP,CUFanta MICROSCOPIC DESCRIPTION: Microscopic examination shows multiple fragments of pancreatic parenchyma. There are focal slightly irregular glands with minimal nuclear atypia. An immunostain for p53 shows wild type staining in these glands. There is no definitive malignancy identified. Clinical correlation and follow-up is needed. Clerical Data Follows A; [id number], [id number], [id number] <CR>, [id number] REPORT IMAGES AND/OR SCANNED DOCUMENTS ONLY VIEWABLE IN PDF FORMAT The immunohistochemical test(s) cited in this report, if any, was developed and its performance characteristics determined by [facility]. It has not been cleared or approved by the U.S. Food and Drug Administration. The FDA has determined that such clearance or approval is not necessary. This test is used for clinical purposes. It should not be regarded as investigational or for research. [facility] is certified under the Clinical Laboratory [...] part or completely in the following laboratories: [facility] [address], [address] [place] [address]. us David Brewer MD LAB PATHOLOGY ORDERABLES Fi nal Result * ERCP (09/06/2024 1:03 PM CDT) Anatomical Region Laterality Modality Other Narrative Procedure Note David Brewer MD - 09/06/2024 1:03 PM CDT ENDOSCOPY LAB Patient Name: Susannah Goncalves Procedure Date: 09/06/2024 1:03 PM Admit Type: Outpatient Room: [facility] Date of : 1950 Instrument Name: [...] The patienttolerated the procedure well. Findings: The paperhanger supervisor film was normal. The esophagus was successfully [...] following this procedure please call my officeat [phone] ([phone]) to speak to my nurses. After hours and evenings please call [phone] speak to the GI fellow control clerk head. Please tell themthat Dr. Brewer did your procedure and that your were instructed to have the fellow call me or thephysician covering for me to discuss the management of your condition. If you have an urgent problem, please goto the nearest emergency room and have the ER doctorcall my office during the day or [facility] transfer ([phone]) center after hours and weekends to arrange [...] 09/06/2024 1:02 PM Admit Type: Outpatient Room: [facility] Date of : 1950 Instrument Name: [...] following this procedure please call my officeat [phone] ([phone]) to speak to my nurses. After hours and evenings please call [phone] speak to the GI fellow control clerk head. Please tell themthat Dr. Brewer did your procedure and that your were instructed to have the fellow call me or thephysician covering for me to discuss the management of your condition. If you have an urgent problem, please goto the nearest emergency room and have the ER doctorcall my office during the day or [facility] transfer ([phone]) center after hours and weekends to arrange admission or transfer to our facility. - Call my nurse Arlyn Segovia RN in the GI office at [phone] for your final results in 7 days. [...] Bilirubin, direct 4.2(H) 0.1 - 0.3 mg/dL [facility] Protein, pl 5.5(L) 6.5 - 8.5 g/dL [facility] Albumin 3.0(L) 3.5 - 5.0 g/dL [facility] Alk phos 1,250(H) 40 - 130 Units/L [facility] ALT 143(H) 7 - 45 Units/L [facility] AST 190(H) 10 - 45 Units/L [facility] Blood 09/06/2024 10:5 0 AM CDT 09/06/2024 10:50 AM CDT Narrative [facility] - 09/06/2024 11:32 AM CDT STAT pre procedure lab same day us Geoffrey Shaver MD LAB BLOOD ORDERABLES Final Result [facility] [address] Department [place] [address] * CT Body Outside Consult (09/05/2024 1:04 [...] images may or may not represent the [place] source data set and thus may contain changes that may lower the accuracy of this second-opinion interpretation. Electronically signed by: Mickey Martinez M.D. Narrative 09/05/2024 2:33 PM CDT EXAMINATION: RADIOLOGY CONSULTATION ON OUTSIDE IMAGING STUDY STUDY INITIALLY PERFORMED: 08/28/2024 at [facility]. TYPE OF STUDY: Multiple CT images [...] IMAGING STUDY STUDY INITIALLY PERFORMED: 08/28/2024 at [facility]. TYPE OF STUDY: Multiple CT images [...] images may or may not represent the [place] source data set and thus may contain changes that may lower the accuracy of this second-opinion interpretation. Electronically signed by: Mickey Martinez M.D. David Brewer MD IMG CT PROCEDURES Final Res ult from Last 3 Months Insurance MEDICARE ADVANTAGE [facility] MEDICARE ADVANTAGE Advance Directives For more information, please contact: [phone] * Full Code (Latest Code Status on File) Date Activated Date Inactivated Comments 09/19/2024 12:06 PM 09/19/2024 6:42 PM * Full Code Date Activated Date Inactivated Comments 09/06/2024 12:07 PM 09/06/2024 8:17 PM * Full Code Date Activated Date Inactivated Comments 02/25/2023 1:22 PM 02/28/2023 7:54 PM * Full Code Date Activated Date Inactivated Comments 11/07/2022 2:00 AM 11/08/2022 7:29 PM Care Teams Program Assistant Relationship Specialty Start Date End Date Leonidas Rubio MD [address] [address] PCP - General Family Medicine 09/05/24 Arianna Persaud PA [address] [place] [address] Physician Senior Application Software Engineer 08/29/24 David Brewer MD [address] [place] [address] Referring Physician Gastroenterology 09/23/24 Haven Cox MD [address] [place] [address] Consulting Physician Medical Oncology 09/23/24 Daisy Mercado MD [address] [facility] [address] [place] [address] Consulting Physician General Surgery 09/23/24
--- OUTSIDE RECORDS SUMMARY | 2024-10-02 10:39 | XMS_ITS | Encounter Summary ---
Author Organization [facility] Address [address] [place] [address] Phone Care Team Providers Care Deputy Attorney General Name Role Phone Linette Yepez MD Primary Care Provider [phone] Encounter Details Date Type Department Care Team (Late st Contact Info) Description 08/09/2024 Results Follow-Up [facility] [place] [address] [place] [address] Norma Clark, SEWING PATTERN LAYOUT TECHNICIAN, JAVA SYSTEMS ANALYST [address] [place] [address] POCT UA AUTOMATED W/O MICRO, [...] on filedocumented in this encounter Care Teams Deputy Attorney General Relationship Specialty Start Date End Date Linette Yepez MD [address] [place] [address] PCP - General Family Medicine 12/08/23 documented as of this encounter
--- OUTSIDE RECORDS SUMMARY | 2024-10-02 10:39 | XMS_ITS | Clinical Summary ---
Author Organization [facility] Address [address] [place] [address] Phone Care Team Providers Care Estate Planning Counselor Name Role Phone Linette Yepez MD Primary Care Provider [phone]- [phone] Allergies Active Allergy Reactions Criticality Noted Date [...] mg by mouth 2 times daily. rx [id number] Active NIFEdipine CR (PROCARDIA-XL) 30 MG TABLET SR 24 HR Take 30 mg by mouth daily. rx [id number] Active Buprenorphine HCl (Belbuca) 600 MCG FILM Take 1 Film by mouth 2 times daily. rx [id number] Active hydrOXYzine (ATARAX) 25 MG Tablet Take 25 mg by mouth 3 times daily as needed for Itching or Nausea (vomiting). rx [id number] Active famotidine (PEPCID) 20 MG Tablet Take 20 mg by mouth daily. rx [id number] Active traMADol (ULTRAM) 50 MG Tablet take [...] Department Care Team Description 08/09/2024 Results Follow-Up [facility] - [facility] [place] [address] [place] [address] Norma Clark, MEXICAN FOOD MAKER HAND, MANAGER DIVERSITY POCT UA AUTOMATED W/O MICRO, CULTURE, URINE 08/07/2024 1:20 PM CDT Urgent Care Visit [facility] [address] [place] [id number] Amrita Vee APRN, LORETTA Diarrhea, unspecified type (Primary Dx); Dysuria Discharge Disposition: Discharged to home or Selfcare 08/07/2024 Travel 07/13/2024 Results Follow-Up [place] [id number] Norma Clark APRN, LORETTA POCT UA AUTOMATED W/O MICRO, CULTURE, URINE 07/11/2024 1:30 PM CDT Urgent Care Visit [facility] [address] [place] [address] Connie Sharma APRN, LORETTA Acute [...] Last Done Comments DEXA Bone Density 1950 Cologuard 1994 Colonoscopy 1994 Colorectal Cancer Screening 1994 Immunochemical Fecal Occult Blood 1994 Pneumococcal Immunization (5 0+ years) (1 of 1 - PCV) 12/26/1999 Zoster Immunization (1 of 2) 12/26/1999 Mammogram 09/10/2015 09/09/2014 SARS-COV-2 Immunization ( season) 2023 06/12/2020, 05/22/2020 Td Immunization Every [...] Distal Urethral Contaminants 08/08/2024 11:53 PM CDT [facility] Culture URINE SPECIMEN / Unknown Non-Phlebotomy Collection / Unknown 08/07/2024 1:53 PM CDT 08/07/2024 1:53 PM CDT Amrita Vee APRN, CNP MICROBIOLOGY - GENERAL ORDERABLES Final Result [facility] [address] [place] [address], [place] * POCT UA AUTOMATED W/O MICRO [...] from Last 3 Months Insurance [facility] Advance Directives * Full Code (Latest Code Status on File) Date Activated Date Inactivated Comments 12/27/2023 9:36 AM Care Teams Estate Planning Counselor Relationship Specialty Start Date End Date Linette Yepez MD [address] [facility] [address] [place] [id number] PCP - General Family Medicine 12/08/23
--- OUTSIDE RECORDS SUMMARY | 2024-10-02 10:39 | XMS_ITS | Clinical Summary ---
Author Organization [facility] Address [address] [place] [address] Phone Care Team Providers Care Medication Nurse Name Role Phone Linette Yepez MD Primary Care Provider [phone]- [phone] Allergies Active Allergy Reactions Criticality Noted Date [...] 90 mL 360 mL 04/14/2020 2:38 PM FLIGHT ENGINEER HELICOPTER 0 Active ondansetron (Zofran ODT) 8 mg Tablet, Rapid Dissolve Dissolve 1 Tablet (8 mg) by mouth every 8 hours as needed for nausea or vomiting. 20 Tablet 2 04/14/2020 2:38 PM FLIGHT ENGINEER HELICOPTER 0 Active Active Problems Problem Noted Date [...] Comments Blood Pressure 168/83 04/14/2020 7:59 AM FLIGHT ENGINEER HELICOPTER Pulse 61 04/14/2020 7:59 AM FLIGHT ENGINEER HELICOPTER Temperature 36.8 C (98.2 F) 04/14/2020 7:59 AM FLIGHT ENGINEER HELICOPTER Respiratory Rate 18 04/14/2020 7:59 AM FLIGHT ENGINEER HELICOPTER Oxygen Saturation 98% 04/14/2020 7:59 AM FLIGHT ENGINEER HELICOPTER Inhaled Oxygen Concentration - - Weight 108.2 kg (238 lb 9.6 oz) 04/13/2020 7:05 AM FLIGHT ENGINEER HELICOPTER Height 160 cm (5' 3) 04/13/2020 7:05 AM FLIGHT ENGINEER HELICOPTER Body Mass Index 42.27 04/13/2020 7:05 AM FLIGHT ENGINEER HELICOPTER Plan of Treatment Health Maintenance Due Date [...] Tdap) 03/19/2024 Medical Devices Implanted Type Area Director Of Social Work Device Identifier Shelf Expiration Date Model / Serial / Lot Seamguard Endogia 60 Prpl [id number] - [id number] Implanted:Qty : 2 on 04/13/2020 by Hong Bryant MD at [facility] N/A: Abdomen [employer] 12/02/2022 [id number] / / [id number] Seamguard Endogia 60 Blk [id number] - [id number] Implanted:Qty : 1 on 04/13/2020 by Hong Bryant MD at [facility] N/A: Abdomen [employer] 08/19/2022 [id number] / / [id number] Insurance RX OPTUM RX Member Subscriber Plan / Payer (Ef fective 2016-Present) Name:Raman Susannah A Relation to Subscriber:Self Name:Raman Susannah A Payer ID:Not on file Group ID:[id number] Type:RX Medicare Part D Address: [address] Advance Directives For more information, please contact: [phone] * Full Code (Latest Code Status on File) Date Activated Date Inactivated Comments 04/13/2020 1:09 PM 04/14/2020 5:55 PM Care Teams Medication Nurse Relationship Specialty Start Date End Date Linette Yepez MD PCP - General Family Practice 04/01/20
--- OUTSIDE RECORDS SUMMARY | 2024-10-02 10:39 | XMS_ITS | Encounter Summary ---
Author Organization [facility] Address [address] [facility] [address] [place] [address] Phone Care Team Providers Care Jockey'S Agent Name Role Phone Linette Yepez MD Primary Care Provider Arianna Persaud Unavailable + [phone] Leonidas Rubio MD Primary Care Provider David Brewer MD Unavailable [phone] Haven Cox MD Unavailable [phone] Daisy Mercado MD Unavailable + [phone] Reason for Visit * Reason Onset Date Comments Medical Question/Miscellaneous 09/03/2024 Encounter Details Date Type Department Care Team (Late st Contact Info) Description 09/03/2024 Telephone [facility] - [facility] Minimally Invasive Surgery [address] [facility] [address], [place] [address] Daisy Mercado MD [address] [facility] [address] [place] [address] Medical Question/Miscellaneous Social History Tobacco Use Types [...] materials from doctor or pharmacy Never 04/11/2023 [facility] Utilities Answer Date Recorded In [...] often do you attend chur ch or zoroastrianism services? Never 02/27/2023 Do you belong to [...] place to sleep or slept in a group home (including now)? No 02/27/2023 Personal Safety Answer Date Recorded Have you ever been in or are you currently in a harmful physical or emotional relationship or is someone making you feel afraid or unsafe? Denies 09/06/2024 Comments No Sex and Gender Information Value Date Recorded Sex Assigned at Not on file Legal Sex Female 6:30 PM CEMETERY COUNSELOR Gender Identity Not on file Sexual Orientation [...] them to contact for a call back: [phone] Last office visit: Visit date not found Date of Surgery: No surgery found documented in this encounter Plan of Treatment Not on file documented as of this encounter Visit Diagnoses Not on filedocumented in this encounter Care Teams Jockey'S Agent Relationship Specialty Start Date End Date Linette Yepez MD [address] [place] [address] PCP - General Family Medicine 11/06/22 09/04/24 Leonidas Rubio MD [address] [place] [address] PCP - General Family Medicine 09/05/24 Arianna Persaud PA [address] [place] [address] Physician Radiation Control Worker 08/29/24 David Brewer MD [address] [place] [address] Referring Physician Gastroenterology 09/23/24 Haven Cox MD [address] [place] [address] Consulting Physician Medical Oncology 09/23/24 Daisy Mercado MD [address] [facility] [address] [place] [address] Consulting Physician General Surgery 09/23/24 documented as of this encounter
--- OUTSIDE RECORDS SUMMARY | 2024-10-02 10:40 | XMS_ITS | CONTINUITY OF CARE DOCUMENT ---
Author Name jenny alvarado Address Unknown Organization [facility] Address [address] [facility] [address] [place] [address] Phone [phone] Care Team Providers Care Roaster Helper Name Role Phone Terell BROWN, Chi Unavailable [phone] INSURANCE PROVIDERS Payer name Policy type / Coverage type [place] red constitution party ID [facility] Other [id number]
--- OUTSIDE RECORDS SUMMARY | 2024-10-02 10:40 | XMS_ITS | Clinical Summary ---
Author Organization [facility] [employer] Address [address] [place] [address] Care Team Providers Care Superior Court Justice Name Role Phone Aury Joseph RN Unavailable [phone] Dar Stinson MD Unavailable [phone] Linette Yepez MD Primary Care Provider + Source Comments [facility],non-owned Affiliates and Associated Physician Practices is amultiple site organization consisting of ambulatory clinics and hospital sitesin [place], [place], [place] and [place]. This disclosure is being madepursuant to the Care Everywhere program and may not contain all information available regarding this patient. 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 [employer] Not on file Not on file Not on file Last Filed Vital Signs Vital Sign Reading Time Taken Comments Blood Pressure 106/74 06/16/2021 10:41 AM SUPERVISOR TAN ROOM Pulse 60 06/16/2021 10:41 AM SUPERVISOR TAN ROOM Temperature 36.2 C (97.2 F) 06/16/2021 10:41 AM SUPERVISOR TAN ROOM Respiratory Rate 20 06/16/2021 10:41 AM SUPERVISOR TAN ROOM Oxygen Saturation 97% 06/16/2021 10:41 AM SUPERVISOR TAN ROOM Inhaled Oxygen Concentration - - Weight 72.6 kg (160 lb) 06/16/2021 10:41 AM SUPERVISOR TAN ROOM Height 160 cm (5' 3) 06/16/2021 10:41 AM SUPERVISOR TAN ROOM Body Mass Index 28.34 06/16/2021 10:41 AM SUPERVISOR TAN ROOM Plan of Treatment Health Maintenance Due Date [...] < 140/90 Blood Pressure 106/74(2021 10:41 AM SUPERVISOR TAN ROOM) Nae Montanez MA Medical Devices Implanted Type Area Spool Sorter Device Identifier Shelf Expiration Date Model / Serial / Lot Shell Coat 3hole 54mm Implanted:Qty: 1 on 11/21/2013 by Francis Cortes MD at [facility] Right: Hip [employer] 08/16/2023 [id number] / / [id number] Linr Acetab Refl Xlpe 0deg 36mm X 54mm Implanted:Qty: 1 on 11/21/2013 by Francis Cortes MD at [facility] Right: Hip [employer] 10/15/2023 [id number] / / [id number] Spherical Head Screw 6.5mm Cancellous Implanted:Qty: 1 on 11/21/2013 by Francis Cortes MD at [facility] Right: Hip [employer] 05/17/2023 [id number] / / [id number] Standard Offset Fixed Neck Stikitite Coated Stem Feoral Coponent Implanted:Qty: 1 on 11/21/2013 by Francis Cortes MD at [facility] Right: Hip [employer] 06/14/2023 [id number] / / [id number] 03/30 Taper Femoral Head Implanted:Qty: 1 on 11/21/2013 by Francis Cortes MD at [facility] Right: Hip [employer] 12/14/2022 [id number] / / [id number] Bill Only H1 Uncem Metal Or Ceramic Implanted:Qty: 1 on 11/21/2013 by Francis Cortes MD at [facility] [employer] H1 BILL ONLY [...] 1:06 PM CDT Narrative Resulting Agency Comment [facility] [address] [facility] [id number] Feliciano Oliver MD LAB - CHEMISTRY ORDERABLES Fin al Result [facility] ACCOUNT BILL [address] [place] [address] * MAMMO SCREENING DIGITAL IMAGE BILAT (09/09/2014 5:05 PM CDT) Anatomical Region Laterality Modality Breast Bilateral Mammography 09/10/2014 5:08 PM CDT Impressions 09/10/2014 5:09 PM CDT No mammographic evidence of malignancy in either breast. ASSESSMENT: BIRADS Category 1: Negative. RECOMMENDATION: Bilateral screening mammogram in one year. Thank you for allowing us to participate in the care of your patient. [facility] [place] utilizes [employer] as a reminder system to notify patients of their next recommended mammogram. Narrative 09/10/2014 5:09 PM CDT EXAMINATION: Digital screening mammogram on 09/09/2014. Computer assisted detection was utilized. PRIOR: Mammogram from [facility] in 09/28/2006. FINDINGS: Breast parenchymal density: [...] offers HCV Ab w/Reflex to Verification test #[id number]. Blood specimen (specimen) BLOOD SPECIMEN / Unknown 08/09/2013 8:53 AM CDT 08/09/2013 12:57 PM CDT Narrative Resulting Agency Comment [facility] [address] [facility] [id number] Feliciano Oliver MD LAB - CHEMISTRY ORDERABLES Fin al Result [facility] ACCOUNT BILL [address] [place] [address] from Last 3 Months or Most Recently Relevant to Health Maintenance Insurance MANAGED MEDICARE ADV MANAGED MEDICARE ADV Advance Directives * Full Code (Latest Code Status on File) Date Activated Date Inactivated Comments 11/21/2013 12:38 PM 11/24/2013 6:31 PM * Full Code Date Activated Date Inactivated Comments 02/18/2009 10:26 AM 02/22/2009 1:32 [address] Justice Relationship Specialty Start Date End Date Linette Yepez MD [address] [place] [address] PCP - General Family Medicine 01/09/20 Aury Joseph, RN Format Proofreader 11/22/13 [place] [address] [address] Orthopedic Surgery 12/27/13
--- OUTSIDE RECORDS SUMMARY | 2024-10-02 10:40 | XMS_ITS | Clinical Summary ---
Author Organization [facility] Address [address] [place] [address] Care Team Providers Care King Maker Name Role Phone Arianna Persaud Unavailable [phone] Leonidas Rubio MD Primary Care Provider David Brewer MD Unavailable Haven Cox MD Unavailable Daisy Mercado MD Unavailable [phone] Allergies Active Allergy Reactions Criticality Noted Date [...] DAILY WITH MEALS 60 tablet 5 024 06/17/ 2025 Discontinued(R eorder) lisinopriL (PRINIVIL,ZESTRIL ) 40 mg [...] 06/21/2022 Assessment & Plan (06/21/2022 7:25 PM PROPAGATION WORKER): Worsening after of her mother in 04/2022. Feels more anxiety than depression. Admits panic attacks. Reluctant to start daily medication, don't want to feel trapped into taking medicine. Will Rx BuSpar as directed. Encouraged relaxation techniques such as deep breathing and guided imagery. Keep follow as scheduled, sooner if needed. Diarrhea 06/20/2022 Assessment & Plan (06/21/2022 7:16 PM PROPAGATION WORKER): Ongoing for approximately 1 week after finishing a course of cefdinir for UTI. No more urinary symptoms or abdominal pain. No acute findings on exam. Will order CDiff test. Advised on Bowel rest: push fluids, bland high fiber diet. Continue immodium if needed. Vulvovaginitis 06/20/2022 Assessment & Plan (06/21/2022 7:17 PM PROPAGATION WORKER): S/p cefdinir course for UTI. Denies discharge or genital lesions. exam deferred per pt request. Rxd Diflucan as directed. Use mild non-fragrant soaps/lotions. Recurrent UTI 06/08/2022 Assessment & Plan (06/08/2022 2:35 PM PROPAGATION WORKER): Currently on Abx for treatment. Patient to [...] 12/23/2021 Assessment & Plan (06/21/2022 7:12 PM PROPAGATION WORKER): BP stable in office today on current therapy. Continue current regimen and low salt diet. Stay hydrated. Assessment & Plan (06/08/2022 2:36 PM PROPAGATION WORKER): Chronic and mildly elevated. Goal < 130/80. [...] 12/23/2021 Assessment & Plan (06/08/2022 2:35 PM PROPAGATION WORKER): Chronic and stable. 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 with millwright Assessment & Plan (12/23/2021 12:10 PM CDT): [...] Description 5 1:45 PM CDT Office Visit [facility] Cardiology [address] [place] [address] [place] [phone] Onesimo George MD Atrial fibrillation status post cardioversion (HCC) (Primary Dx); History of cardiac radiofrequency ablation; Essential hypertension; Pancreatic adenocarcinoma (HCC); NOMI on CPAP; Lipid screening 5 Results Follow-Up [facility] Gastroenterology [address] [place] [address] Medical Office Building 4, [address] [place] [phone] Body Outside Consult 5 Results Follow-Up [facility] Gastroenterology [address] [place] [address] Office Building [address], [address] [place] [phone] David Brewer MD Surgical pathology 5 12:40 PM CDT Anesthesia Event [facility] Digestive Disease [address] [address] Travis Whittington MD 5 10:17 AM CDT - 5 2:37 PM CDT Emergency [facility] Digestive Disease [address] [address] Morgan Celestin MD Das, Koushik Kumar, MD Fall, initial encounter (Primary Dx); Pancreatic mass Discharge Disposition: Discharge to home or self care 5 9:30 AM CDT - 5 10:30 AM CDT Surgery [facility] Dig[facility] Disease Center [address] [facility] [address] [place] [address] David Brewer MD ESOPHAGOGASTRODUODENOSCOPY ULTRASOUND FINE NEEDLE ASPIRATION/BIOPSY [GI534] [address] 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 Surgery [address] [place] [address] [address] [place] [phone] Daisy Mercado MD Pancreatic mass (Primary Dx); Other specified diseases of pancreas; Encounter for follow-up examination after completed treatment for conditions other than malignant neoplasm; Neoplasm of uncertain behavior of other specified digestive organs [address] [facility] Surgery [address] [place] [address] [address] [place] [phone] Susan Marroquin RN 5 12:53 PM CDT - 5 11:59 PM CDT Hospital Encounter [facility] [address] [place] [address] Pancreatic mass Discharge Disposition: Discharge to home or self care [address] [facility] Surgery [address] [place] [address] [address] [place] [phone] Ana Sánchez PA Liver lesion (Primary Dx) [address] [facility] Gastroenterology [address] [place] [address] Medical Office Building 4, [address] [place] [phone] David Brewer MD Elevated liver function tests (Primary Dx) [address] [facility] Gastroenterology [facility] Medical Office Building 4, [address] [place] [phone] Arlyn Segovia, family consumer science teacher call [address] [facility] Gastroenterology [address] [place] [address] Medical Office Building 4, [address] [place] [phone] Arlyn Segovia, RN Pancreatic mass (Primary Dx) 5 Results Follow-Up [facility] Gastroenterology [address] [place] [address] Medical Office Building 4, [address] [place] [phone] David Brewer MD Surgical pathology [address] [facility] Surgery [address] [facility] [address] [place] [phone] Susan Marroquin RN 5 1:07 PM CDT Anesthesia Event [facility] GI Center [address] [place] [phone] Wayne Nicholson MD 5 12:30 PM CDT - 5 1:00 PM CDT Surgery [facility] Center [address] [place] [phone] David Brewer MD ESOPHAGOGASTRODUODENOSCOPY ULTRASOUND GUIDE LIMITED 5 11:07 AM CDT - 5 4:10 PM CDT Hospital Encounter [facility] Center [address] [place] [phone] Geoffrey Shaver MD Das, Koushik Kumar, MD Pancreatic mass; Elevated liver function tests Discharge Disposition: Discharge to home or self care 5 10:35 AM CDT Lab [facility] Outpatient Lab [address] [place] [phone] Pancreatic mass; Elevated liver function tests 5 6:50 AM CDT - 5 11:59 PM CDT Hospital Encounter [facility] GI Center [address] [place] [phone] Upper abdominal pain Discharge Disposition: Discharge to home or self care 5 Orders Only [facility] GI Center [address] [place] [phone] David Brewer MD 5 1:04 PM CDT - 5 11:59 PM CDT Hospital Encounter [facility]) [address] [place], [place] [phone] Diagnosis unknown Discharge Disposition: Discharge to home or self care 5 Telephone [facility] Cardiology [address] [facility] [address], [place] [phone] Onesimo George MD cardiac clearance [address] [facility] Gastroenterology [address] [facility] Medical Office Building 4, [address] [place] [phone] Carmen Ordonez LPN GI Preprocedure 5 Telephone [facility] ([facility] - [facility] Minimally Invasive Surgery [address] [facility] 12th Floor, [place] [phone] Daisy Mercado MD Medical Question/Miscellaneous [address] 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 Sutherland tonsilectomy 1960 tonsilectomy ophrectomy 1960 ophrectomy Osteoarthritis Osteoarthritis Hypertension Hypertension Atrial fibrillation (HCC) Atrial fibrillation Lt hip replacement// JVR 2011 Lt hip replacement// JVR Ambulates with cane Acute cystitis with hematuria NOMI (obstructive sleep apnea) S/P laparoscopic sleeve gastrectomy UTI (urinary tract infection) Anxiety Neck injury Ulcerative colitis (HCC) GERD (gastroesophageal reflux disease) Pancreatic cancer (HCC) Family History Medical History Relation Name Comments Cancer Father Lung cancer Other 1 Family history of Cancer, lung; Hypertension Other 2 Family history of Hypertension; Osteoarthritis Other 3 Family histor y of Osteoarthritis; Osteoporosis Other 4 Family history of Osteoporosis; Relation Name Status Comments Father Other 1 Other 2 Other 3 Other [...] materials from doctor or pharmacy Never 04/11/[address] [facility] Utilities Answer Date Recorded In the past 12 months has [employer], gas, oil, or water [employer] threatened to shut off services in your [...] often do you attend chur ch or sabianist services? Never 02/27/2023 Do you belong to [...] place to sleep or slept in a fci (including now)? No 02/27/2023 Personal Safety Answer Date Recorded Have you ever been in or are you currently in a harmful physical or emotional relationship or is someone making you feel afraid or unsafe? Denies 09/19/2024 Comments No Sex and Gender Information Value Date Recorded Sex Assigned at Not on file Legal Sex Female 6:30 PM PROPAGATION WORKER Gender Identity Not on file Sexual [...] 09/27/2024 1:23 PM CDT Plan of Treatment Health Maintenance Due Date Last Done Comments Colon Cancer Screening-Colonoscopy 1950 Hepatitis C Screening 1950 Osteoporosis Screening-Bone Density Scan 1950 Hepatitis B Screening 12/26/1967 Pneumococcal vaccine 65+ (1 of 1 - PCV) 12/26/1999 Zoster Vaccine (1 of 2) 12/26/1999 Well Visit 65+ 2014 Breast Cancer Screening-Mammogram 09/10/2015 015 Covid-19 Vaccine (3 - 2023-2 5 season) 2023 06/12/2020, 05/22/2020 Depression Screening 02/26/2024 02/25/2023, 11/06/2022, 12/17/2021 DTaP/Tdap/Td Vaccine (2 - Td or Tdap) 03/19/2024 03/19/2014 Influenza Vaccine (Season Ended) 2024 01/16/20 15, 02/21/2009 Fall Risk Assessment 09/27/2025 09/27/2024, 09/19/2024, 09/19/2023, Additional history exists Medical Devices Implanted Type Area Plunger Machine Operator Device Identifier Shelf Expiration Date Model / Serial / Lot Conmed Chris Viabil 10mm X 6cm Shortwire [id number] - [id number] - [id number] Implanted:Qty: 1 on 09/06/2024 by David Brewer MD at [facility] Stent N/A: Bile Duct Conmed Chris 06/19/2027 [id number] / [id number] / Procedures Procedure Name Priority Date/Time Associated [...] Biopsy) 09/19/2024 1:07 PM CDT Narrative PATHOLOGY [facility] - 09/20/2024 2:24 PM CDT EPIC results best viewed via link to PDF [facility] [place] [address] Note to Patients: This report may contain [...] Gender: F : 1950 (Age: 73) Address: [address] [place] [address] Hospital #: [id number] Taken:09/19/2024 Received:09/19/2024 Reported: 09/20/2024 Patient Type: [facility] ED Service: Emergency Location: [facility] ED Physician(s): David Brewer M.D. Leonidas Rubio M.D. Daisy Mercado MD Diagnosis: Pancreas, neck, mass, fine needle biopsy - Rare atypical glands/single cells and focal perineural invasion, compatible with invasive pancreatic adenocarcinoma - Scant tumor cellularity; likely insufficient for further molecular testing sjb/09/20/2024 14:24 By this signature, I attest that [...] cm in aggregate). Labeled A1. Jar 0. [facility]/09/19/2024 15:19 PA(s): Evelyn Cunningham By this signature, I attest that the above diagnosis is based upon my personal examination of the slides(and/or other material). Addenda/Procedures The performance characteristics of some immunohistochemical stains, fluorescence in-situ hybridization tests and immunophenotyping by flow cytometry cited in this report (if any) were determined by the Surgical Pathology and Flow Cytometry Departments at [facility] as part of an ongoing quality engineering manager program and in compliance with federally mandated [...] Surgical Pathology and Flow Cytometry Departments of [facility]. It has not been cleared or approved by the U. S. Food and Drug Administration. IMAGES AND SCANNED DOCUMENTS, IF INCLUDED, ONLY VIEWABLE IN PDF VERSION OF REPORT us David Brewer MD LAB PATHOLOGY ORDERABLES Fi nal Result PATHOLOGY [facility] 3rd Floor [place], [place] [phone] * Upper EUS (09/19/2024 12:32 PM CDT) Anatomical Region Laterality Modality Other Narrative Procedure Note David Brewer MD - 09/19/2024 12:32 PM CDT GI ENDOSCOPY [facility] Patient Name: Susannah Goncalves Procedure Date: 09/19/2024 12:32 PM Date of : 1950 Admit Type: Outpatient Age: 73 Gender: Female Attending MD: David Brewer M.D. Room: [facility] ENDOSCOPY ROOM 1 Note Status: Finalized [...] consent was obtained.The Olympuscurved linear array therapeutic [id number] was introduced through the mouth, and advanced tothe second part of duodenum The GIF [id number] endoscope was introduced through the mouth, and [...] Three passes were madewith the 22 gauge Mediamorph needle using a transgastric approach. A stylet [...] following this procedure please call my officeat [phone] ([phone]) to speak to my nurses. After hours and evenings please call [phone] speak to the GI fellow mill tender second operator. Please tell themthat Dr. Brewer did your procedure and that your were instructed to have the fellow call me or thephysician covering for me to discuss the management of your condition. If you have an urgent problem, please goto the nearest emergency room and have the ER doctorcall my office during the day or [facility] transfer ([phone]) center after hours and weekends to arrange admission or transfer to our facility. - Call my nurse Arlyn Segovia RN in the GI office at [phone] for your final pathology results in 7 days. Attending Participation: I personally performed the entire procedure. Electronically Signed By: David Brewer M.D. David Brewer M.D. 09/19/2024 1:28:33 PM . Number of Addenda: 0 Note Initiated On: 09/19/2024 12:32 PM us David Brewer MD ENDOSCOPY PROCEDURES Final Result * (ABNORMAL) Cancer antigen 19-9 (09/17/2024 10:32 AM CDT) CA 19-9 ag 47.6(H) 0.0 - 35.0 units/mL Comment: Interpretive Data The Sree CA 19-9 assay procedure was used. Results from different manufacturers or methods may not be comparable. Serial testing should be performed using the same method. Testing performed by: [facility], [facility] [facility], [place]., [address] Blood 09/17/2024 10:3 2 AM CDT 09/17/2024 7:30 PM CDT us Ana RODRIGUES LAB BLOOD ORDERABLES Gail garcia Result [facility] [address] [facility]. [place] [address] * (ABNORMAL) CEA (09/17/2024 10:32 AM CDT) CEA 5.2(H) <=5.0 ng/mL Comment: Interpretive Data Reference Range: Non-Smokers: < or = 3.0 ng/mL Some Smokers may have elevated levels, usually < 5.0 ng/mL The Sree CEA assay procedure was used. Results from different manufacturers or methods may not be comparable. Serial testing should be performed using the same method. Testing performed by: [facility], [facility], [place]., [address] Blood 09/17/2024 10:3 2 AM CDT 09/17/2024 7:30 PM CDT Ana RODRIGUES LAB BLOOD ORDERABLES Gail garcia Result Performing Organization Address City/State/[facility] [place] Phone Number [facility] [address] [facility]. [place] [address] * CT Chest W and Abdomen Pelvis [...] Biliary Duct (09/06/2024 1:42 PM CDT) Narrative [facility] - 09/06/2024 1:53 PM CDT The images from this study are not interpreted by Radiology. Please refer to the physician's procedure / OR operative note. David Brewer MD IMG FLUOROSCOPY PROCEDURES Final Result RAD_PAC_[facility] * Surgical pathology (09/06/2024 1:25 PM CDT) Lymph node, needle biopsy 09/06/2024 1:25 PM CDT 09/10/2024 11:26 AM CDT Narrative 09/11/2024 3:14 PM CDT [address] [address] Tele: Roxana Gordon MD - Restoration Technician Note to Patients: This report may contain [...] PATHOLOGY REPORT Patient Name: SUSANNAH GONCALVES Address: [address] [place] [address] Gender: F : 1950 (Age: 73) Service: Gastro Location: [facility], Hospital #: [id number] Patient Type: [facility] SAME DAY SURGERY Taken: 09/06/2024 Received 09/10/2024 Reported: 09/11/2024 Physician(s): Puma Wagner MD Jason E. Barnett, M.D. DIAGNOSIS: Pancreas, head, fine needle biopsies: - Focal atypical glands (see description) [facility] [place]09/11/2024 15:14 Examining Pathologist: Alek Flowers M.D. Report [...] filtered and submitted entirely in cassette A1. [facility] MICROSCOPIC DESCRIPTION: Microscopic examination shows multiple fragments of pancreatic parenchyma. There are focal slightly irregular glands with minimal nuclear atypia. An immunostain for p53 shows wild type staining in these glands. There is no definitive malignancy identified. Clinical correlation and follow-up is needed. Clerical Data Follows A; [address], [address], 113[address] <CR>, [address] REPORT IMAGES AND/OR SCANNED DOCUMENTS ONLY VIEWABLE IN PDF FORMAT The immunohistochemical test(s) cited in this report, if any, was developed and its performance characteristics determined by [facility] Pathology Department. It has not been cleared or approved by the U.S. Food and Drug Administration. The FDA has determined that such clearance or approval is not necessary. This test is used for clinical purposes. It should not be regarded as investigational or for research. [facility] Laboratory is certified under [...] part or completely in the following laboratories: [facility], [facility] [place] [address]. us David Brewer MD LAB PATHOLOGY ORDERABLES Fi nal Result * ERCP (09/06/2024 1:03 PM CDT) Anatomical Region Laterality Modality Other Narrative Procedure Note David Brewer MD - 09/06/2024 1:03 PM CDT ENDOSCOPY LAB Patient Name: Susannah Goncalves Procedure Date: 09/06/2024 1:03 PM Admit Type: Outpatient Room: [facility] 6 Date of : 1950 Instrument [...] The patienttolerated the procedure well. Findings: The overnight cashier film was normal. The esophagus was successfully [...] following this procedure please call my officeat [phone] ([phone]) to speak to my nurses. After hours and evenings please call [phone] speak to the GI fellow mill tender second operator. Please tell themthat Dr. Brewer did your procedure and that your were instructed to have the fellow call me or thephysician covering for me to discuss the management of your condition. If you have an urgent problem, please goto the nearest emergency room and have the ER doctorcall my office during the day or [facility] transfer ([phone]) center after hours and weekends to arrange admission or transfer to our facility. Attending Participation: I personally performed the entire procedure. Electronically Signed By: David Brewer M.D. David Brewer M.D. 09/06/2024 2:48:23 PM This document was signed electronically. Number of Addenda: 0 Note Initiated On: 09/06/2024 1:03 PM Scope In: Scope Out: David Brewer MD ENDOSCOPY PROCEDURES Edited Result - Final * Upper EUS (09/06/2024 1:02 PM CDT) Anatomical Region Laterality Modality Other Narrative Procedure Note David Brewer MD - 09/06/2024 1:02 PM CDT ENDOSCOPY LAB Patient Name: Susannah Goncalves Procedure Date: 09/06/2024 1:02 PM Admit Type: Outpatient Room: [facility] 6 Date of : 1950 Instrument Name: [id number] Gender: Female Note Status: Finalized Procedure: Upper [...] following this procedure please call my officeat [phone] ([phone]) to speak to my nurses. After hours and evenings please call [phone] speak to the GI fellow mill tender second operator. Please tell themthat Dr. Brewer did your procedure and that your were instructed to have the fellow call me or thephysician covering for me to discuss the management of your condition. If you have an urgent problem, please goto the nearest emergency room and have the ER doctorcall my office during the day or [facility] transfer ([phone]) center after hours and weekends to arrange admission or transfer to our facility. - Call my nurse Arlyn Segovia RN in the GI office at [phone] for your final results in 7 days. [...] Bilirubin, direct 4.2(H) 0.1 - 0.3 mg/dL [facility] Protein, pl 5.5(L) 6.5 - 8.5 g/dL [facility] Albumin 3.0(L) 3.5 - 5.0 g/dL [facility] Alk phos 1,250(H) 40 - 130 Units/L [facility] ALT 143(H) 7 - 45 Units/L [facility] AST 190(H) 10 - 45 Units/L [facility] Blood 09/06/2024 10:5 0 AM CDT 09/06/2024 10:50 AM CDT Narrative [facility] - 09/06/2024 11:32 AM CDT STAT pre procedure lab same day us Geoffrey Shaver MD LAB BLOOD ORDERABLES Final Result [facility] [address] [place] [address] * CT Body Outside Consult (09/05/2024 1:04 [...] images may or may not represent the [place] source data set and thus may contain changes that may lower the accuracy of this second-opinion interpretation. Electronically signed by: Mickey Martinez M.D. Narrative 09/05/2024 2:33 PM CDT EXAMINATION: RADIOLOGY CONSULTATION ON OUTSIDE IMAGING STUDY STUDY INITIALLY PERFORMED: 08/28/2024 at [facility]. TYPE OF STUDY: Multiple CT images of [...] IMAGING STUDY STUDY INITIALLY PERFORMED: 08/28/2024 at [facility]. TYPE OF STUDY: Multiple CT images of [...] images may or may not represent the [place] source data set and thus may contain changes that may lower the accuracy of this second-opinion interpretation. Electronically signed by: Mickey Martinez M.D. David Brewer MD IMG CT PROCEDURES Final Res ult from Last 3 Months Insurance MEDICARE ADVANTAGE Member Subscriber Plan / Payer (Ef fective 2022-Present) Name:Susannah Goncalves Relation to Subscriber:Self Name:Susannah Goncalves Payer ID:[id number] (NAIC) Type:[facility] MED[facility] Address: [place] [id number] UHC MEDICARE ADVANTAGE UHC MEDICARE ADVANTAGE Advance Directives For more information, please contact: [phone] * Full Code (Latest Code Status on File) Date Activated Date Inactivated Comments 09/19/2024 12:06 PM 09/19/2024 6:42 PM * Full Code Date Activated Date Inactivated Comments 09/06/2024 12:07 PM 09/06/2024 8:17 PM * Full Code Date Activated Date Inactivated Comments 02/25/2023 1:22 PM 02/28/2023 7:54 PM * Full Code Date Activated Date Inactivated Comments 11/07/2022 2:00 AM 11/08/2022 7:29 PM Care Teams King Maker Relationship Specialty Start Date End Date Leonidas Rubio MD [address] [place] [address] PCP - General Family Medicine 09/05/24 Arianna Persaud PA [address] [place] [address] Physician Hassock Maker 08/29/24 David Brewer MD [address] [place] [address] Referring Physician Gastroenterology 09/23/24 Haven Cox MD [address] [place] [address] Consulting Physician Medical Oncology 09/23/24 Daisy Mercado MD [address] [place] [address] Consulting Physician General Surgery 09/23/24
[2024-10-02 10:50] LABS: Alanine Aminotransferase 65 U/L (6-35); Albumin Level 3.3 g/dL (3.5-5.1); Alkaline Phosphatase 689 U/L (38-126); Anion Gap 5 mmol/L (4-12); Aspartate Amino Transferase 63 U/L (14-36); Bilirubin,Total 0.7 mg/dL (0.2-1.3); Blood Urea Nitrogen 17 mg/dL (7-17); Calcium 9.3 mg/dL (8.4-10.2); Carbon Dioxide 26 mmol/L (22-30); Chloride 105 mmol/L (98-107); Estimated Glomerular Filt Rate > 60; Glucose 87 mg/dL (65-110); Potassium 3.8 mmol/L (3.4-5.0); Sodium 136 mmol/L (137-145); Total Protein 6.1 g/dL (6.3-8.2)
== END 2024-10-02 09:42 | disposition home or self-care (01) ==
PROVIDERS: PCP Family Medicine; Visit Provider Student in an Organized Health Care Education/Training Program
DX: C25.9 Malignant neoplasm of pancreas, unspecified (principal)
CPT/HCPCS: 36415; 80053

== ENCOUNTER 2024-10-04 15:29 | Outpatient (CLI) | payer MEDICARE, SELFPAY ==
[2024-10-04 15:57] LABS: Bacteria Urine None Seen /hpf; Need Manual Microscopic Reviewed; Non Pathogenic Casts 0-2; RBC Urine 0-2 /hpf (0-2); Squamous Epithelial Cell Urine None Seen /hpf (Few); WBC Urine 0-5 /hpf (0-3)
[2024-10-04 15:58] LABS: Add Urine Microscopic? YES; Appearance Urine Clear (Clear); Color Urine Orange (Yellow)
== END 2024-10-04 15:30 | disposition home or self-care (01) ==
PROVIDERS: PCP Family Medicine; Visit Provider Student in an Organized Health Care Education/Training Program
DX: R30.0 Dysuria (principal)
CPT/HCPCS: 81001

== ENCOUNTER 2024-10-14 17:35 | Outpatient (CLI) | payer MEDICARE, SELFPAY ==
--- OUTSIDE RECORDS SUMMARY | 2024-10-14 17:38 | XMS_ITS | Clinical Summary ---
Author Organization [facility] Address [address] [place] [address] Phone Care Team Providers Care Medical Apparatus Model Maker Name Role Phone Linette Yepez MD Primary Care Provider [phone]- [phone] Allergies Active Allergy Reactions Criticality Noted Date [...] mg by mouth 2 times daily. rx [id number] Active NIFEdipine CR (PROCARDIA-XL) 30 MG TABLET SR 24 HR Take 30 mg by mouth daily. rx [id number] Active Buprenorphine HCl (Belbuca) 600 MCG FILM Take 1 Film by mouth 2 times daily. rx [id number] Active hydrOXYzine (ATARAX) 25 MG Tablet Take 25 mg by mouth 3 times daily as needed for Itching or Nausea (vomiting). rx [id number] Active famotidine (PEPCID) 20 MG Tablet Take 20 mg by mouth daily. rx [id number] Active traMADol (ULTRAM) 50 MG Tablet take [...] Department Care Team Description 08/09/2024 Results Follow-Up [facility] [place] [address] [place] [address] Norma Clark, TRAY DRIER OPERATOR, ASSOCIATE MERCHANDISE PLANNER POCT UA AUTOMATED W/O MICRO, CULTURE, URINE 08/07/2024 1:20 PM CDT Urgent Care Visit [facility] [address] [place] [address] Amrita Vee APRN, LORETTA Diarrhea, unspecified type (Primary Dx); Dysuria Discharge Disposition: Discharged to home or Selfcare 08/07/2024 Travel from Last 3 Months Immunizations Immunization [...] 2) 12/26/1999 Mammogram 09/10/2015 09/09/2014 SARS-COV-2 Immunization (3 - season) 2023 06/12/2020, 05/22/2020 Td Immunization [...] MICRO Routine 08/07/2024 1:31 PM CDT Dysuria from Last 3 Months Results * CULTURE, URINE (08/07/2024 1:53 PM CDT) Pathologist [facility] CULTURE RESULTS Mixed Growth of One or More Distal Urethral Contaminants 08/08/2024 11:53 PM CDT [facility] Culture URINE SPECIMEN / Unknown Non-Phlebotomy Collection / Unknown 08/07/2024 1:53 PM CDT 08/07/2024 1:53 PM CDT us Amrita Vee APRN, CNP MICROBIOLOGY - GENERAL ORDERABLES Final Result [facility] [address] [place] [address], [place] * POCT UA AUTOMATED W/O MICRO (08/07/2024 1:31 PM CDT) POC UA SPECIFIC GRAVITY 1.015 URINE PH [...] CLARITY Clear Urine 08/07/2024 1:31 PM CDT us Amrita Vee APRN, ASSOCIATE MERCHANDISE PLANNER POINT OF CARE T CHRISSY (MANUAL) Final Result from Last 3 Months [facility] Directives * Full Code (Latest Code Status on File) Date Activated Date Inactivated Comments 12/27/2023 9:36 AM Care Teams Medical Apparatus Model Maker Relationship Specialty Start Date End Date Linette Yepez MD [address] [facility] [address] [place] [id number] PCP - General Family Medicine 12/08/23
--- OUTSIDE RECORDS SUMMARY | 2024-10-14 17:38 | XMS_ITS | Clinical Summary ---
Author Organization [facility] Address [address] [place] [address] Phone Care Team Providers Care Grocery Department Manager Name Role Phone Linette Yepez MD Primary Care Provider [phone]- [phone] Allergies Active Allergy Reactions Criticality Noted Date [...] 90 mL 360 mL 04/14/2020 2:38 PM COAT FITTER 0 Active ondansetron (Zofran ODT) 8 mg Tablet, Rapid Dissolve Dissolve 1 Tablet (8 mg) by mouth every 8 hours as needed for nausea or vomiting. 20 Tablet 2 04/14/2020 2:38 PM COAT FITTER 0 Active Active Problems Problem Noted Date [...] Comments Blood Pressure 168/83 04/14/2020 7:59 AM COAT FITTER Pulse 61 04/14/2020 7:59 AM COAT FITTER Temperature 36.8 C (98.2 F) 04/14/2020 7:59 AM COAT FITTER Respiratory Rate 18 04/14/2020 7:59 AM COAT FITTER Oxygen Saturation 98% 04/14/2020 7:59 AM COAT FITTER Inhaled Oxygen Concentration - - Weight 108.2 kg (238 lb 9.6 oz) 04/13/2020 7:05 AM COAT FITTER Height 160 cm (5' 3) 04/13/2020 7:05 AM COAT FITTER Body Mass Index 42.27 04/13/2020 7:05 AM COAT FITTER Plan of Treatment Health Maintenance Due Date [...] Tdap) 03/19/2024 Medical Devices Implanted Type Area Terrazzo Mechanic Helper Device Identifier Shelf Expiration Date Model / Serial / Lot Seamguard Endogia 60 Prpl [id number] - [id number] Implanted:Qty : 2 on 04/13/2020 by Hong Bryant MD at [facility] N/A: Abdomen [employer] 12/02/2022 [id number] / / [id number] Seamguard Endogia 60 Blk [id number] - [id number] Implanted:Qty : 1 on 04/13/2020 by Hong Bryant MD at [facility] N/A: Abdomen [employer] 08/19/2022 [id number] / / [id number] Insurance RX [employer] RX Member Subscriber Plan / Payer (Ef fective 2016-Present) Name:Raman Susannah A Relation to Subscriber:Self Name:Raman Susannah A Payer ID:Not on file Group ID:[id number] Type:RX Medicare Part D Address: [address] Advance Directives For more information, please contact: [phone] * Full Code (Latest Code Status on File) Date Activated Date Inactivated Comments 04/13/2020 1:09 PM 04/14/2020 5:55 PM Care Teams Grocery Department Manager Relationship Specialty Start Date End Date Linette Yepez MD PCP - General Family Practice 04/01/20
--- OUTSIDE RECORDS SUMMARY | 2024-10-14 17:38 | XMS_ITS | Continuity of Care Document ---
Author Organization [facility] Address [address] [place] [address] Phone Care Team Providers Care Encephalographer Name Role Phone Maribel BROWN, Ramirez Unavailable [...] OFFICE/OUTPA TIENT VISIT NEW [facility], [address], [place], [address], tel:[phone] [facility] Rosalie CervicalgiaOther spondylosis with myelopathy, cervical regionAbnormal reflex Maribel Guzmán. [address], [place], [place], [id number] , [place]. tel: [phone] Referring Provider: Nidhi Smart [address], [place], [address]. tel:[phone] Family History Family Member Type Diagnosis Age At Onset No Information Payers Payer name Insurance type Covered alliance party ID Pedro chaney(s) AARP Medicare Complete HMO-POS [id number] Social History Type Description Quantity Date [...]
--- OUTSIDE RECORDS SUMMARY | 2024-10-14 17:38 | XMS_ITS | Referral Summary ---
Author Organization [facility] Address [address] [place] [address] Care Team Providers Care Garnetter Name Role Phone Arianna Persaud Unavailable [phone]- [phone] Leonidas Rubio MD Primary Care Provider David Brewer MD Unavailable Haven Cox MD Unavailable Daisy Mercado MD Unavailable [phone] Encounters Date Type Department Care Team Description 10/15/19 25 Orders Only [facility] Oncology [facility] 5 [place] [address] Lissette Ortiz, AUSTEN Pancreatic adenocarcinoma (HCC) (Primary Dx) 10/15/19 25 Documentation [facility] at [address] [address] 10/15/19 25 Documentation [facility] Oncology [address] [place] [address] [address] [place] [phone] Katt Rios LCSW 10/15/19 25 7:30 AM CDT Clinical Support [facility] at [address] [place] [address] Pancreatic adenocarcinoma (HCC) 10/11/19 8:50 AM CDT - 10/11/19 11:59 PM CDT Hospital Encounter [facility] [address] [address], [place] [address] Mary Kay Campuzano, RT Gustafson, Taylor Quintana, Kacie Jorgensen RN Pancreatic adenocarcinoma (HCC) Discharge Disposition: Discharge to home or self care 10/11/19 7:09 AM CDT - 10/11/19 11:59 PM CDT Hospital Encounter [facility] [address] [facility] Medical Office Building 2 [place] [address] Pancreatic adenocarcinoma (HCC) Discharge Disposition: Discharge to home or self care 10/10/19 Telephone [facility] [address] [place] [address] Leslie Armando RN 10/10/19 Telephone [facility] [address] [address], [place] [address] Megan Hsu RN 10/08/19 3:45 PM CDT Lab [facility] at [facility] [address] [facility] [place] [address] Pancreatic adenocarcinoma (HCC) 10/08/19 2:00 PM CDT Office Visit [facility] Oncology [address] [facility] [address] [place] [address] Haven Cox MD Pancreatic adenocarcinoma (HCC) (Primary Dx); Pancreatic mass 09/28/19 1:45 PM CDT Office Visit [facility] Cardiology [address] [facility] [address] [place] [address] Onesimo George MD Atrial fibrillation status post cardioversion (HCC) (Primary Dx); History of cardiac radiofrequency ablation; Essential hypertension; Pancreatic adenocarcinoma (HCC); NOMI on CPAP; Lipid screening 06/06/20 25 Results Follow-Up [facility] Gastroenterology [address] [facility] [address], [address] [place] [address] Body Outside Consult 09/21/19 25 Results Follow-Up [facility] Gastroenterology [address] [facility] [address], [address] [place] [address] David Brewer MD Surgical pathology 09/20/19 25 10:17 AM CDT - 09/20/19 25 2:37 PM CDT Emergency [facility]estive [facility] [place] [address] [facility] [address] [place] [address] Morgan Celestin MD Das, Koushik Kumar, MD Fall, initial encounter (Primary Dx); Pancreatic mass Discharge Disposition: Discharge to home or self care 09/20/19 12:40 PM CDT Anesthesia Event [facility] Disease [place] [address] [facility] [address] [place] [address] Travis Whittington MD 09/20/19 25 9:30 AM CDT - 09/20/19 25 10:30 AM CDT Surgery [facility] [address] [facility] [address] [place] [address] David Brewer MD ESOPHAGOGASTRODUODENOSCOPY ULTRASOUND FINE NEEDLE ASPIRATION/BIOPSY [GI534] 09/19/19 25 Telephone [facility] Department of Hepatobiliary, Pancreatic, & Gastrointestinal Surgery [address] [facility] 12th Floor, [place] [address] Hilda Love PA 09/18/19 25 12:15 PM CDT Lab [facility] at [address] [place] [phone] Pancreatic mass; 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, unspecified; Encounter for follow-up examination after completed treatment for conditions other than malignant neoplasm 09/18/19 25 Telephone [facility] Surgery [address] [place] [address] [address] [place] [phone] Susan Marroquin RN 09/18/19 8:30 AM CDT Office Visit [facility] Surgery [address] [place] [address] [address] [place] [address] Daisy Mercado MD Pancreatic mass (Primary Dx); Other specified diseases of pancreas; Encounter for follow-up examination after completed treatment for conditions other than malignant neoplasm; Neoplasm of uncertain behavior of other specified digestive organs 09/14/19 25 Orders Only [facility] Surgery [address] [place] [address] [address] [place] [address] Ana Sánchez PA Liver lesion (Primary Dx) 09/14/19 25 Orders Only [facility] Gastroenterology [address] [place] [address] Medical Office Building 4, [address] [place] [address] David Brewer MD Elevated liver function tests (Primary Dx) 09/14/19 12:53 PM CDT - 09/14/19 11:59 PM CDT Hospital Encounter [facility] [address] [place] [address] Pancreatic mass Discharge Disposition: Discharge to home or self care 09/13/19 Telephone [facility] Gastroenterology [address] [place] [address] Medical Office Building 4, [address] [place] [address] Arlyn Segovia, hydrogen cell tender call 09/13/19 Orders Only [facility] Gastroenterology [address] [place] [address] Medical Office Building 4, [address] [place] [address] Arlyn Segovia, AUSTEN Pancreatic mass (Primary Dx) 09/12/19 Results Follow-Up [facility] Gastroenterology [address] [place] [address] Medical Office Building 4, [address] [place] [address] David Brewer MD Surgical pathology 09/12/19 Telephone [facility] Surgery [address] [place] [address] [address] [place] [address] Susan Marroquin RN 09/07/19 Orders Only [facility] [address] [place] [phone] David Brewer MD 09/07/19 1:07 PM CDT Anesthesia Event [facility] [address] [place] [phone] Wayne Nicholson MD 09/07/19 10:35 AM CDT Lab [facility] Outpatient Lab [address] [place] [phone] Pancreatic mass; Elevated liver function tests 09/07/19 6:50 AM CDT - 09/07/19 11:59 PM CDT Hospital Encounter [facility] [address] [place] [phone] Upper abdominal pain Discharge Disposition: Discharge to home or self care 09/07/19 12:30 PM CDT - 09/07/19 1:00 PM CDT Surgery [facility] [address] [place] [phone] David Brewer MD ESOPHAGOGASTRODUODENOSCOPY ULTRASOUND GUIDE LIMITED 09/07/19 11:07 AM CDT - 09/07/19 4:10 PM CDT Hospital Encounter [facility] [address] [place] [phone] Geoffrey Shaver MD Das, Koushik Kumar, MD Pancreatic mass; Elevated liver function tests Discharge Disposition: Discharge to home or self care 09/06/19 1:04 PM CDT - 09/06/19 11:59 PM CDT Hospital Encounter [facility] [address] [place] [address] Diagnosis unknown Discharge Disposition: Discharge to home or self care 09/05/19 Telephone [facility] Cardiology [address] [facility] [address] [address] Onesimo George MD cardiac clearance 09/05/19 Telephone [facility] Gastroenterology [address] [facility] [address], [address] [place] [phone] Carmen Ordonez LPN GI Preprocedure 09/04/19 25 Telephone [facility] - [facility] Minimally Invasive Surgery [address] [facility] 12th Floor, [place] [address] Daisy Mercado MD Medical Question/Miscellaneous 09/03/19 25 Orders Only [facility] Surgery [address] [facility] [address] [place] [phone] Ana Sánchez PA Pancreatic mass (Primary Dx); [...] by mouth daily 90 tablet 023 Active hydrOXYzine (ATARAX) 25 mg [...] THE TONGUE FOUR TIMES DAILY 025 Active carvediloL (COREG) 6.25 mg tablet Take 1 tablet (6.25 mg total) by mouth 2 (two) times a day 60 tablet 5 025 Active propafenone SR (RYTHMOL SR) 225 mg 12 hr capsuleIndication s:Prevention of Recurrent Atrial Fibrillation Take 1 capsule (225 mg total) by mouth 2 (two) times a day 60 capsule 11 025 2025 Active morphine ER (MS CONTIN) 15 mg 12 hr tablet 1 tablet (15 mg total) every 12 hours 025 Active oxyCODONE (ROXICODONE) 10 mg tablet Take 1 tablet (10 mg total) by mouth 2 (two) times a day as needed 025 Active naloxone (NARCAN) 4 mg/actuation spray,non-aerosol as directed Nasally in an opioid emergency for 30 days 025 Active morphine (MSIR) 15 mg tabletIndications :Pancreatic adenocarcinoma (HCC) Take 1 tablet (15 mg total) by mouth every 4 (four) hours as needed for pain 120 tablet 025 2024 Active prochlorperazine (Compazine) 10 mg tabletIndications :Pancreatic adenocarcinoma (HCC) Take 1 tablet (10 mg total) by mouth every 6 (six) hours as needed for nausea or vomiting 120 tablet 3 025 Active ondansetron ODT (ZOFRAN-ODT) 8 mg disintegrating tablet Take 1 tablet (8 mg total) by mouth every 8 (eight) hours as needed for nausea or vomiting 120 tablet 2 025 Active multivitamin tablet tablet Take one by [...] DIRECTED 1 mL 3 023 2024 Discontinued ondansetron ODT (ZOFRAN-ODT) 4 mg disintegrating tablet Take 1 tablet (4 mg total) by mouth every 8 (eight) hours as needed for nausea or vomiting 20 tablet 023 2024 Discontinued(D uplicate order) turmeric root extract 500 mg capsuleIndication s:suppliment [...] BY MOUTH TWICE DAILY X 30 DAYS 05/24/2 024 2024 Discontinued propafenone SR (RYTHMOL SR) [...] day for 30 days 025 2024 Discontinued methadone (DOLOPHINE) 10 mg tablet 025 2024 Discontinued(S top Taking at Discharge) prochlorperazine (Compazine) 10 mg tabletIndications :Pancreatic adenocarcinoma (HCC) Take 1 tablet (10 mg total) by mouth every 6 (six) hours as needed for nausea or vomiting 120 tablet 3 025 2024 Discontinued(R eorder) Active Problems Problem Noted Date Diagnosed Date Pancreatic adenocarcinoma 10/07/2024 Pancreatic mass 09/04/2024 Elevated liver function tests 09/04/2024 Intractable pain 02/25/2023 Dizziness 11/07/2022 Mixed anxiety and depressive disorder 06/21/2022 Assessment & Plan (06/21/2022 7:25 PM QUALITY LIAISON): Worsening after of her mother in 04/2022. Feels more anxiety than depression. Admits panic attacks. Reluctant to start daily medication, don't want to feel trapped into taking medicine. Will Rx BuSpar as directed. Encouraged relaxation techniques such as deep breathing and guided imagery. Keep follow as scheduled, sooner if needed. Diarrhea 06/20/2022 Assessment & Plan (06/21/2022 7:16 PM QUALITY LIAISON): Ongoing for approximately 1 week after finishing a course of cefdinir for UTI. No more urinary symptoms or abdominal pain. No acute findings on exam. Will order CDiff test. Advised on Bowel rest: push fluids, bland high fiber diet. Continue immodium if needed. Vulvovaginitis 06/20/2022 Assessment & Plan (06/21/2022 7:17 PM QUALITY LIAISON): S/p cefdinir course for UTI. Denies discharge or genital lesions. exam deferred per pt request. Rxd Diflucan as directed. Use mild non-fragrant soaps/lotions. Recurrent UTI 06/08/2022 Assessment & Plan (06/08/2022 2:35 PM QUALITY LIAISON): Currently on Abx for treatment. Patient to [...] 12/23/2021 Assessment & Plan (06/21/2022 7:12 PM QUALITY LIAISON): BP stable in office today on current therapy. Continue current regimen and low salt diet. Stay hydrated. Assessment & Plan (06/08/2022 2:36 PM QUALITY LIAISON): Chronic and mildly elevated. Goal < 130/80. [...] 12/23/2021 Assessment & Plan (06/08/2022 2:35 PM QUALITY LIAISON): Chronic and stable. 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 with conventions assistant Assessment & Plan (12/23/2021 12:10 PM CDT): [...] doctor or pharmacy Never 04/11/2023 [facility] Utilities Answer Date Recorded In [...] any clubs o r organizations such as adventism groups, unions, fraternal or athletic groups, or [...] on file Legal Sex Female 6:30 PM QUALITY LIAISON Gender Identity Not on file Sexual Orientation Not on file Last Filed Vital Signs Vital Sign Reading Time Taken Comments Blood Pressure 177/102 10/10/2024 10:20 AM CDT Pulse 75 10/10/2024 10:20 AM CDT Temperature 36.8 C (98.2 F) 10/10/2024 9:19 AM CDT Respiratory Rate 9 10/10/2024 10:20 AM CDT Oxygen Saturation 100% 10/10/2024 10:20 AM CDT Inhaled Oxygen Concentration - - Weight 66.3 kg (146 lb 3.2 oz) 10/14/2024 9:01 A M CDT Height 155.7 cm (5' 1.3) 10/14/2024 9:01 AM CDT Body Mass Index 27.36 10/14/2024 9:01 AM CDT Plan of Treatment Not on file Medical Devices Implanted Type Area Information Assurance Manager Device Identifier Shelf Expiration Date Model / Serial / Lot Conmed Chris Viabil 10mm X 6cm Shortwire [id number] - [id number] - [id number] Implanted:Qty: 1 on 09/06/2024 by David Brewer MD at [facility] Stent N/A: Bile Duct Conmed Chris 06/19/2027 [id number] / [id number] / [employer] Excela Low Porfile Power Port 8fr 1.6mm 1 Lumen [id number] - [id number] Implanted:Qty: 1 on 10/10/2024 at [facility] Ang[employer] 05/07/2029 [id number] / / [id number] Procedures Procedure Name Priority Date/Time Associated Diagnosis Comments EGFR STAT 10/14/2024 8:30 AM CDT Pancreatic adenocarcinoma (HCC) DIFFERENTIAL AUTO Routine 10/14/2024 8:30 AM CDT Pancreatic adenocarcinoma (HCC) CANCER ANTIGEN 19-9 Routine 10/14/2024 8:30 AM CDT Pancreatic adenocarcinoma (HCC) CBC WITH AUTO DIFFERENTIAL Routine 10/14 8:30 AM CDT Pancreatic adenocarcinoma (HCC) COMPREHENSIVE METABOLIC PANEL STAT 8:30 AM CDT Pancreatic adenocarcinoma (HCC) PORT PLACEMENT CHEST >5 YEARS Schedule Routine, Read Routine (OP Routine) 10/10/2024 10:16 AM CDT Pancreatic adenocarcinoma (HCC) PET/CT FDG SKULL TO THIGH Schedule Routine, Read Routine (OP Routine) 10/10/2024 8:32 AM CDT Pancreatic adenocarcinoma (HCC) EGFR STAT 10/07/2024 4:00 PM CDT Pancreatic adenocarcinoma (HCC) DIFFERENTIAL AUTO Routine 10/07/2024 4:00 PM CDT Pancreatic adenocarcinoma (HCC) CBC WITH AUTO DIFFERENTIAL Routine 10/07 4:00 PM CDT Pancreatic adenocarcinoma (HCC) CANCER ANTIGEN 19-9 Routine 10/07/2024 4:00 PM CDT Pancreatic adenocarcinoma (HCC) PROTIME-INR Routine 10/07/2024 4:00 PM CDT Pancreatic adenocarcinoma (HCC) COMPREHENSIVE METABOLIC PANEL STAT 4:00 PM CDT Pancreatic adenocarcinoma (HCC) POCT LIPID PANEL Routine 09/27/2024 1:34 PM [...] unknown from Last 3 Months Results * eGFR (10/14/2024 8:30 AM CDT) eGFR 85 >=60 mL/min/1. 73 m2 Comment: Interpretive Data Reference Interval Normal >/= 90 mL/min/1.73m2 Mildly decreased* 60 - 89 mL/min/1.73m2 Mildly to moderately decreased 45 - 59 mL/min/1.73m2 Moderately to severely decreased 30 - 44 mL/min/1.73m2 Severely decreased 15 - 29 mL/min/1.73m2 Kidney Failure < 15 mL/min/1.73m2 *Relative to young adult level Estimated glomerular filtration rate is determined by the 2020 CKD-EPI equation recommended by the National Kidney Foundation (A Unifying Approach to GFR Estimation: Recommendations of the NKF-ASK Task Force on Reassessing the Inclusion of Race in Diagnosing Kidney Disease, JASN 2020). The CKD-EPI equation should not be used for patients with unstable renal function and has not been validated in children and those over 70. Current interpretive data was last reviewed 2021. Testing performed by: [facility], [address] [place] [address] Blood 10/14/2024 8:30 AM CDT 10/14/2024 8:54 AM CDT us [facility]Maurisio M Mili Cox MD LAB BLOOD ORDERABLES Gail l Result [facility] [address] [address]. Department [place] [address] * Differential, auto (10/14/2024 8:30 AM CDT) Neutrophil abs 3.00 1.50 - 6.50 K/cumm Comment:Testing performed by : [facility], M[facility] 2, [address] [place] [address] Imm gran abs 0.00 0.00 - 0.10 K/cumm CERNER BJWCH Comment:Testing performed by : [facility], [facility], [address] [place] [address] Lymphocyte abs 1.24 0.80 - 3.30 K/cumm CERNER [facility] Comment:Testing performed by : [facility], [facility], [address] [place] [address] Monocyte abs 0.80 0.20 - 0.80 K/cumm CERNER BJWCH Comment:Testing performed by : [facility], [facility], [address] [place] [address] Eosinophil abs 0.12 0.00 - 0.50 K/cumm CERNER BJWCH Comment:Testing performed by : [facility], [facility], [address] [place] [address] Basophil abs 0.03 0.00 - 0.10 K/cumm CERNER BJWCH Comment:Testing performed by : [facility], [facility], [address] [place] [address] Neutrophil pct 57.8 % CERNER BJW[facility] Comment: Interpretive Data Percent cell count reference ranges are not reported, since discordance with absolute values may lead to misinterpretation of CBC data. Current Interpretive Data was last revised on 2017. Testing performed by: [facility], [facility], [address] [place] [address] Imm gran pct 0.0 % CERNER BJW[facility] Comment: Interpretive Data Percent cell count reference ranges are not reported, since discordance with absolute values may lead to misinterpretation of CBC data. Current Interpretive Data was last revised on 2017. Testing performed by: [facility], [facility], [address] [place] [address] Lymphocyte pct 23.9 % CERNER BJW[facility] Comment: Interpretive Data Percent cell count reference ranges are not reported, since discordance with absolute values may lead to misinterpretation of CBC data. Current Interpretive Data was last revised on 2017. Testing performed by: [facility], [facility], [address] [place] [address] Monocyte pct 15.4 % ENRIQUE TORRES Comment: Interpretive Data Percent cell count reference ranges are not reported, since discordance with absolute values may lead to misinterpretation of CBC data. Current Interpretive Data was last revised on 2017. Testing performed by: [facility], [facility], [address] [place] [address] Eosinophil pct 2.3 % ENRIQUE TORRES Comment: Interpretive Data Percent cell count reference ranges are not reported, since discordance with absolute values may lead to misinterpretation of CBC data. Current Interpretive Data was last revised on 2017. Testing performed by: [place] [address], [address] [place] [address] Basophil pct 0.6 % ENRIQUE TORRES Comment: Interpretive Data Percent cell count reference ranges are not reported, since discordance with absolute values may lead to misinterpretation of CBC data. Current Interpretive Data was last revised on 2017. Testing performed by: [facility] 2, [address] [place] [address] Blood 10/14/2024 8:30 AM CDT 10/14/2024 8:33 AM CDT [facility]Maurisio Cox MD LAB BLOOD ORDERABLES Gail l Result [facility] [address] [facility] Department [place] [address] * (ABNORMAL) CBC with auto differential (10/14/2024 8:30 AM CDT) WBC 5.19 3.80 - 9.90 K/cumm Comment:Testing performed by : [facility] 2, [address] [place] [address] Hgb 8.8(L) 11.9 - 15.5 g/dL ENRIQUE TORRES Comment:Testing performed by : [facility] 2, [address] [place] [address] Hct 27.5(L) 35.6 - 45.5 % CERNER BJWCH Comment:Testing performed by : [facility], [facility], [address] [place] [address] Plt 209 150 - 400 K/cumm CERNER BJWCH Comment:Testing performed by : [place] [address], [address] [place] [address] MPV 9.7 9.1 - 12.3 fL CERNER BJWCH Comment:Testing performed by : [facility], [facility], [address] [place] [address] RBC 3.04(L) 3.90 - 5.20 M/cumm CERNER BJWCH Comment:Testing performed by : [place] [address], [address] [place] [address] MCV 90.5 81.3 - 96.4 fL CERNER BJWCH Comment:Testing performed by : [facility], [facility], [address] [place] [address] MCH 28.9 27.1 - 33.3 pg CERNER BJWCH Comment:Testing performed by : [place] [address], [address], [place] [address] MCHC 32.0(L) 32.3 - 35.7 g/dL CERNER B[facility] Comment:Testing performed by : [place] [address], [address] [place] [address] RDW CV 14.4 11.1 - 14.9 % CERNER BJWCH Comment:Testing performed by : [place] [address], [address] [place] [address] RDW SD 47.6 35.7 - 48.1 fL CERNER BJWCH Comment:Testing performed by : [facility] 2, [address], [place] [address] ANC Prelim 3.00 1.50 - 6.50 K/cumm CERNER BJWCH Comment: Interpretive Data The rapid ANC is a preliminary automated count and may vary from the final ANC (Neut Abs) reported in the WBC differential that follows. Current interpretive data was last revised 2024. Testing performed by: [facility], [facility] [address], [address] [place] [address] Blood 10/14/2024 8:30 AM CDT 10/14/2024 8:33 AM CDT [facility] MD LAB BLOOD ORDERABLES Gail l Result ENRIQUE [facility] [address] [address] * (ABNORMAL) Cancer antigen 19-9 (10/14/2024 8:30 AM CDT) CA 19-9 ag 46.8(H) 0.0 - 35.0 units/mL Comment: Interpretive Data The Sree CA 19-9 assay procedure was used. Results from different manufacturers or methods may not be comparable. Serial testing should be performed using the same method. Testing performed by: [facility], [facility], [place]., [address] Blood 10/14/2024 8:30 AM CDT 10/14/2024 10:46 AM CDT [facility]Maurisio Cox MD LAB BLOOD ORDERABLES Gail l Result ENRIQUE [facility] [address] [address] [address] * (ABNORMAL) Comprehensive metabolic panel (10/14/2024 8:30 AM CDT) Sodium 138 135 - 145 mmol/L Comment:Testing performed by : [facility], [address], [place] [address] Potassium, pl 3.7 3.3 - 4.9 mmol/L CERNER BJWCH Comment:Testing performed by : [facility], [address], [place] [address] Chloride 103 97 - 110 mmol/L CERNER BJWCH Comment:Testing performed by : [facility], [address], [place] [address] CO2 23 22 - 32 mmol/L CERNER B[facility]WCH Comment:Testing performed by : [facility], [address], [place] [address] Anion gap 12 2 - 15 mmol/L CERNER B[facility] Comment:Testing performed by : [facility], [address], [place] [address] BUN 14 6 - 25 mg/dL CERNER B[facility]WCH Comment:Testing performed by : [facility], [address], [place] [address] Creatinine 0.74 0.60 - 1.10 mg/dL CERNER BJWCH Comment:Testing performed by : [facility], [address], [place] [address] Glucose 94 70 - 199 mg/dL CERNER BJWCH Comment: Interpretive Data Fasting glucose >/= 126 mg/dl is diagnostic for diabetes. Fasting is defined as no caloric intake for at least 8 hours. Fasting glucose between 100 mg/dl to 125 mg/dl is diagnostic of prediabetes. In a patient with classic symptoms of hyperglycemia or hyperglycemic crisis, a random glucose >/= 200 mg/dl is diagnostic for diabetes. In the absence of unequivocal hyperglycemia, results should be confirmed by repeat testing. The classification and Diagnosis of Diabetes Diabetes Care 202; 46: S19-S40. Current interpretive data was last revised 2022. Testing performed by: [facility], [address], [place] [address] Calcium 9.1 8.5 - 10.3 mg/dL CERNER BJWCH Comment:Testing performed by : [facility], [address], [place] [address] Bilirubin, total 0.6 0.1 - 1.2 mg/dL CERNER BJWCH Comment:Testing performed by : [facility], [address], [place] [address] Protein, pl 5.7(L) 6.5 - 8.5 g/dL CERNER BJWCH Comment:Testing performed by : [facility], [address], [place] [address] Albumin 3.4(L) 3.5 - 5.0 g/dL CERNER BJWCH Comment:Testing performed by : [facility], [address], [place] [address] Alk phos 387(H) 40 - 130 Units/L CERNER BJWCH Comment:Testing performed by : [facility], [address], [place] [address] ALT 37 7 - 45 Units/L CERNER BJWCH Comment:Testing performed by : [facility], [address], [place] [address] AST 22 10 - 45 Units/L CERNER BJWCH Comment:Testing performed by : [facility], [address], [place] [address] Blood 10/14/2024 8:30 AM CDT 10/14/2024 8:54 AM CDT [facility]aur[facility]io Cox MD LAB BLOOD ORDERABLES Gail l Result [facility] [address] Department [place] [address] * IR Port Placement Chest > 5 Years (10/10/2024 10:16 AM CDT) Anatomical Region Laterality Modality Chest N/A X-Ray Angiograph y 10/10/2024 10:3 1 AM CDT Impressions 10/10/2024 10:31 AM CDT Successful chest wall port placement. PLAN: The catheter is ready for immediate use. Please note that a power injectable port was placed. When treatment is completed, removal can be scheduled by calling [facility] - [phone] [facility] - [phone] Electronically signed by: Feliciano Martinez PA-C Narrative 10/10/2024 10:31 AM CDT EXAMINATION: PORT PLACEMENT USING ULTRASOUND GUIDANCE (STD TECHNIQUE) HISTORY: 73-year-old female with history of pancreatic adenocarcinoma presents for port placement for initiation of chemotherapy. PROVIDER PRESENCE: Feliciano Martinez PA-C was present from the beginning to the end of the procedure. SEDATION: No sedation. Fentanyl was used for pain control. TECHNIQUE: The risks, benefits and alternatives were discussed and informed consent was obtained. Prior to beginning the procedure, [place] Protocol was used to confirm the patient's identity and planned procedure. Fluoroscopy time has been recorded in the electronic medical record. Prior to the procedure, the central veins were evaluated by ultrasound, an image recorded and placed in the patient's chart. Maximum sterile barriers including cap, mask, hand hygiene, sterile gloves, sterile gown, large sterile drape and 2% chlorhexidine for cutaneous antisepsis were used. The skin over the right internal jugular vein was sterilely prepped, draped and infiltrated with 1% buffered lidocaine. The vein was accessed with a 21 gauge needle using realtime ultrasound guidance. A guidewire and catheter were then passed centrally using fluoroscopic guidance. The intravascular length from the access site to the right atrium was then measured. After infiltrating the skin in the subclavicular region with 1% buffered lidocaine, a short transverse incision was made and the pocket for the low-profile power injectable reservoir was formed by blunt dissection. The catheter was tunneled to the IJ access site, cut to the appropriate length and inserted through a peel-away sheath. The catheter was flushed with 100U/ml heparin and the access needle removed. The deep tissues were approximated using 4-0 Monocryl and the incision closed using skin glue. The incision in the lower neck was closed in a similar fashion. ESTIMATED BLOOD LOSS: Minimal. CONDITION: Stable DISCHARGED TO: outpatient recovery. FINDINGS: Ultrasound image shows a patent vein in the lower neck. The final fluoroscopic image demonstrates the catheter with its tip at the cavoatrial junction. No complications are seen. Procedure Note Feliciano Martinez PA - 10/10/2024 EXAMINATION: PORT PLACEMENT USING ULTRASOUND GUIDANCE (STD TECHNIQUE) HISTORY: 73-year-old female with history of pancreatic adenocarcinoma presents for port placement for initiation of chemotherapy. PROVIDER PRESENCE: Feliciano Martinez PA-C was present from the beginning to the end of the procedure. SEDATION: No sedation. Fentanyl was used for pain control. TECHNIQUE: The risks, benefits and alternatives were discussed and informed consent was obtained. Prior to beginning the procedure, [place] Protocol was used to confirm the patient's identity and planned procedure. Fluoroscopy time has been recorded in the electronic medical record. Prior to the procedure, the central veins were evaluated by ultrasound, an image recorded and placed in the patient's chart. Maximum sterile barriers including cap, mask, hand hygiene, sterile gloves, sterile gown, large sterile drape and 2% chlorhexidine for cutaneous antisepsis were used. The skin over the right internal jugular vein was sterilely prepped, draped and infiltrated with 1% buffered lidocaine. The vein was accessed with a 21 gauge needle using realtime ultrasound guidance. A guidewire and catheter were then passed centrally using fluoroscopic guidance. The intravascular length from the access site to the right atrium was then measured. After infiltrating the skin in the subclavicular region with 1% buffered lidocaine, a short transverse incision was made and the pocket for the low-profile power injectable reservoir was formed by blunt dissection. The catheter was tunneled to the IJ access site, cut to the appropriate length and inserted through a peel-away sheath. The catheter was flushed with 100U/ml heparin and the access needle removed. The deep tissues were approximated using 4-0 Monocryl and the incision closed using skin glue. The incision in the lower neck was closed in a similar fashion. ESTIMATED BLOOD LOSS: Minimal. CONDITION: Stable DISCHARGED TO: outpatient recovery. FINDINGS: Ultrasound image shows a patent vein in the lower neck. The final fluoroscopic image demonstrates the catheter with its tip at the cavoatrial junction. No complications are seen. IMPRESSION: Successful chest wall port placement. PLAN: The catheter is ready for immediate use. Please note that a power injectable port was placed. When treatment is completed, removal can be scheduled by calling [facility] - [phone] [facility] - [phone] Electronically signed by: Feliciano Martinez PA-C [facility]Maurisio Vallejo Th Kenny BROWN [facility] IR PROCEDURES Final R esult * PET/CT FDG Skull to Thigh (10/10/2024 8:32 AM CDT) Anatomical Region Laterality Modality N/A Positron Emissio n Tomography (PET) 10/10/2024 10:3 6 AM CDT Impressions 10/10/2024 10:56 AM CDT 1. Moderately FDG avid infiltrative mass arising from the body of the pancreas consistent with patient's biopsy-proven pancreatic adenocarcinoma. It is difficult to measure the extent of this lesion given local pancreatitis can appear similarly. 2. No FDG avid lymphadenopathy or sites of distant metastatic disease. 3. 2.7 x 1.6 cm soft tissue right breast mass without significant FDG avidity is noted. Consider clinical correlation. Dictated by: Abel Bauer M.D. The radiology attending physician has personally reviewed this study, and had reviewed and/or edited this written report and agrees with it. Electronically signed by: MD Domenic Serrano 10/10/2024 10:56 AM CDT EXAMINATION: TUMOR FDG-PET/CT IMAGING DATE OF STUDY: 10/10/2024 SCANNER: RADIOPHARMACEUTICAL: 16.5 mCi F-18 Fluorodeoxyglucose (FDG) i.v. Injection site: Left antecubital HISTORY: 73-year-old female with recently diagnosed invasive pancreatic adenocarcinoma. The study is requested for initial staging. Initial treatment strategy. TECHNIQUE: The patient's fasting blood glucose level, measured by glucometer before injection of FDG, was 113 mg/dL. After intravenous administration of FDG, noncontrast CT images were obtained for attenuation correction and for fusion with emission PET images to allow for anatomical localization of PET findings. Emission PET images were then obtained. The study was interpreted on the [facility] workstation. The mean liver SUV (reported for senior quality assurance analyst purposes) is 1.7. The total scanned area was skull base to proximal thighs. Images of the body were obtained starting 50 minutes after injection of tracer. All reported SUVs are maximum SUVs, unless otherwise specified. COMPARISON: 09/13/2024 CT DESCRIPTORS OF LESION FDG AVIDITY: Minimal: <= blood pool Mild: > blood pool and <= liver Moderate: > liver and <= 2x SUVmax liver Moderate to marked: >2x SUVmax liver and <= 3x SUVmax liver Marked: > 3x SUVmax liver FINDINGS: Moderately FDG avid infiltrative mass arising from the head of the pancreas has an SUV of 4.0. The extent of this mass is difficult to evaluate on today's examination however approximates 4.6 x 4.4 cm on image 136. This area is thought to represent the infiltrative mass however local pancreatitis can appear similarly. No other suspicious FDG avid foci identified. 2.7 x 1.6 cm soft tissue right breast mass without significant FDG avidity is noted. The most FDG-avid lesion is pancreatic mass, has a maximum SUV of 4.0, and approximate axial dimensions of 4.6 x 4.[address] findings: Diffuse body wall anasarca. Trace right pleural effusion. Calcified granulomas noted within the lungs. Calcified mediastinal and hilar lymphadenopathy in keeping with old granulomatous disease. Mild coronary artery calcifications noted. Pneumobilia is again noted. Common bile duct stent noted. Postsurgical changes of gastric resection. Bilateral hip arthroplasties noted. Small volume ascites. Significant mesenteric edema noted. Multilevel degenerative changes noted throughout the spine. Procedure Note Johan Krishna MD - 10/10/2024 EXAMINATION: TUMOR FDG-PET/CT IMAGING DATE OF STUDY: 10/10/2024 SCANNER: RADIOPHARMACEUTICAL: 16.5 mCi F-18 Fluorodeoxyglucose (FDG) i.v. Injection site: Left antecubital HISTORY: 73-year-old female with recently diagnosed invasive pancreatic adenocarcinoma. The study is requested for initial staging. Initial treatment strategy. TECHNIQUE: The patient's fasting blood glucose level, measured by glucometer before injection of FDG, was 113 mg/dL. After intravenous administration of FDG, noncontrast CT images were obtained for attenuation correction and for fusion with emission PET images to allow for anatomical localization of PET findings. Emission PET images were then obtained. The study was interpreted on the [facility] workstation. The mean liver SUV (reported for senior quality assurance analyst purposes) is 1.7. The total scanned area was skull base to proximal thighs. Images of the body were obtained starting 50 minutes after injection of tracer. All reported SUVs are maximum SUVs, unless otherwise specified. COMPARISON: 09/13/2024 CT DESCRIPTORS OF LESION FDG AVIDITY: Minimal: <= blood pool Mild: > blood pool and <= liver Moderate: > liver and <= 2x SUVmax liver Moderate to marked: >2x SUVmax liver and <= 3x SUVmax liver Marked: > 3x SUVmax liver FINDINGS: Moderately FDG avid infiltrative mass arising from the head of the pancreas has an SUV of 4.0. The extent of this mass is difficult to evaluate on today's examination however approximates 4.6 x 4.4 cm on image 136. This area is thought to represent the infiltrative mass however local pancreatitis can appear similarly. No other suspicious FDG avid foci identified. 2.7 x 1.6 cm soft tissue right breast mass without significant FDG avidity is noted. The most FDG-avid lesion is pancreatic mass, has a maximum SUV of 4.0, and approximate axial dimensions of 4.6 x 4.[address] findings: Diffuse body wall anasarca. Trace right pleural effusion. Calcified granulomas noted within the lungs. Calcified mediastinal and hilar lymphadenopathy in keeping with old granulomatous disease. Mild coronary artery calcifications noted. Pneumobilia is again noted. Common bile duct stent noted. Postsurgical changes of gastric resection. Bilateral hip arthroplasties noted. Small volume ascites. Significant mesenteric edema noted. Multilevel degenerative changes noted throughout the spine. IMPRESSION: 1. Moderately FDG avid infiltrative mass arising from the body of the pancreas consistent with patient's biopsy-proven pancreatic adenocarcinoma. It is difficult to measure the extent of this lesion given local pancreatitis can appear similarly. 2. No FDG avid lymphadenopathy or sites of distant metastatic disease. 3. 2.7 x 1.6 cm soft tissue right breast mass without significant FDG avidity is noted. Consider clinical correlation. Dictated by: Abel Bauer M.D. The radiology attending physician has personally reviewed this study, and had reviewed and/or edited this written report and agrees with it. Electronically signed by: Johan Krishna MD [facility]Maurisio Cox MD IM PET PROCEDURES Final Result * eGFR (10/07/2024 4:00 PM CDT) eGFR 89 >=60 mL/min/1. 73 m2 Comment: Interpretive Data Reference Interval Normal >/= 90 mL/min/1.73m2 Mildly decreased* 60 - 89 mL/min/1.73m2 Mildly to moderately decreased 45 - 59 mL/min/1.73m2 Moderately to severely decreased 30 - 44 mL/min/1.73m2 Severely decreased 15 - 29 mL/min/1.73m2 Kidney Failure < 15 mL/min/1.73m2 *Relative to young adult level Estimated glomerular filtration rate is determined by the 2020 CKD-EPI equation recommended by the National Kidney [employer] (A Unifying Approach to GFR Estimation: Recommendations of the NKF-ASK Task Force on Reassessing the Inclusion of Race in Diagnosing Kidney Disease, JASN 2020). The CKD-EPI equation should not be used for patients with unstable renal function and has not been validated in children and those over 70. Current interpretive data was last reviewed 2021. Testing performed by: [facility], [address] [place] [address] Blood 10/07/2024 4:00 PM CDT 10/07/2024 4:36 PM CDT [facility]Maurisio Cox MD LAB BLOOD ORDERABLES Gail l Result [facility] [address] Department [place] [address] * (ABNORMAL) Differential, auto (10/07/2024 4:00 PM CDT) Neutrophil abs 4.52 1.50 - 6.50 K/cumm Comment:Testing performed by : [facility], [facility], [address] [place] [address] Imm gran abs 0.01 0.00 - 0.10 K/cumm ENRIQUE BJWSTEVE Comment:Testing performed by : [facility], [address] [place] [address] Lymphocyte abs 0.48(L) 0.80 - 3.30 K/cumm ENRIQUE TORRES Comment:Testing performed by : [facility], [facility], [address] [place] [address] Monocyte abs 0.37 0.20 - 0.80 K/cumm CERNER BJWCH Comment:Testing performed by : [facility], [facility], [address] [place] [address] Eosinophil abs 0.01 0.00 - 0.50 K/cumm CERNER BJWCH Comment:Testing performed by : [facility], [facility], [address] [place] [address] Basophil abs 0.01 0.00 - 0.10 K/cumm CERNER BJWCH Comment:Testing performed by : [facility], [facility], [address] [place] [address] Neutrophil pct 83.6 % CERNER BJWCH Comment: Interpretive Data Percent cell count reference ranges are not reported, since discordance with absolute values may lead to misinterpretation of CBC data. Current Interpretive Data was last revised on 2017. Testing performed by: [facility], [facility], [address] [place] [address] Imm gran pct 0.2 % CERNER BJWCH Comment: Interpretive Data Percent cell count reference ranges are not reported, since discordance with absolute values may lead to misinterpretation of CBC data. Current Interpretive Data was last revised on 2017. Testing performed by: [facility], [facility], [address] [place] [address] Lymphocyte pct 8.9 % CERNER BJWCH Comment: Interpretive Data Percent cell count reference ranges are not reported, since discordance with absolute values may lead to misinterpretation of CBC data. Current Interpretive Data was last revised on 2017. Testing performed by: [facility], [facility], [address] [place] [address] Monocyte pct 6.9 % CERNER BJWCH Comment: Interpretive Data Percent cell count reference ranges are not reported, since discordance with absolute values may lead to misinterpretation of CBC data. Current Interpretive Data was last revised on 2017. Testing performed by: [facility], [facility], [address] [place] [address] Eosinophil pct 0.2 % ENRIQUE TORRES Comment: Interpretive Data Percent cell count reference ranges are not reported, since discordance with absolute values may lead to misinterpretation of CBC data. Current Interpretive Data was last revised on 2017. Testing performed by: [facility], [address] [place] [address] Basophil pct 0.2 % ENRIQUE TORRES Comment: Interpretive Data Percent cell count reference ranges are not reported, since discordance with absolute values may lead to misinterpretation of CBC data. Current Interpretive Data was last revised on 2017. Testing performed by: [place] [address], [address] [place] [address] Blood 10/07/2024 4:00 PM CDT 10/07/2024 4:01 PM CDT [facility]aurisio Cox MD LAB BLOOD ORDERABLES Gail l Result [facility] [address] [facility] Department [place] [address] * (ABNORMAL) CBC with auto differential (10/07/2024 4:00 PM CDT) WBC 5.40 3.80 - 9.90 K/cumm Comment:Testing performed by : [facility], [address] [place] [address] Hgb 9.0(L) 11.9 - 15.5 g/dL ENRIQUE TORRES Comment:Testing performed by : [facility], [address] [place] [address] Hct 28.7(L) 35.6 - 45.5 % ENRIQUE TORRES Comment:Testing performed by : [facility], [address] [place] [address] Plt 185 150 - 400 K/cumm ENRIQUE TORRES Comment:Testing performed by : [facility], [address] [place] [address] MPV 9.1 9.1 - 12.3 fL CERNER BJWCH Comment:Testing performed by : [place] [address], [address] [place] [address] RBC 3.06(L) 3.90 - 5.20 M/cumm CERNER BJWCH Comment:Testing performed by : [place] [address] [place] [address] MCV 93.8 81.3 - 96.4 fL CERNER BJWCH Comment:Testing performed by : [place] [address] [place] [address] MCH 29.4 27.1 - 33.3 pg CERNER BJWCH Comment:Testing performed by : [place] [address] [place] [address] MCHC 31.4(L) 32.3 - 35.7 g/dL CERNER BJWCH Comment:Testing performed by : [place] [address] [place] [address] RDW CV 15.4(H) 11.1 - 14.9 % CERNER BJWCH Comment:Testing performed by : [place] [address] [place] [address] RDW SD 53.6(H) 35.7 - 48.1 fL CERNER BJWCH Comment:Testing performed by : [place] [address] [place] [address] ANC Prelim 4.52 1.50 - 6.50 K/cumm CERNER BJWCH Comment: Interpretive Data The rapid ANC is a preliminary automated count and may vary from the final ANC (Neut Abs) reported in the WBC differential that follows. Current interpretive data was last revised 2024. Testing performed by: [place] [address] [place] [address] Blood 10/07/2024 4:00 PM CDT 10/07/2024 4:01 PM CDT [facility] Cx[facility] MD LAB BLOOD ORDERABLES Gail l Result Performing Organization Address [facility] de Phone Number ENRIQUE BJCH [address] [facility]. [facility] [place] [address] * (ABNORMAL) Cancer antigen 19-9 (10/07/2024 4:00 PM CDT) CA 19-9 ag 79.3(H) 0.0 - 35.0 units/mL Comment: Interpretive Data The Sree CA 19-9 assay procedure was used. Results from different manufacturers or methods may not be comparable. Serial testing should be performed using the same method. Testing performed by: [facility], [address] [place] [address]., [address] Blood 10/07/2024 4:00 PM CDT 10/07/2024 6:08 PM CDT Haven Cox MD LAB BLOOD ORDERABLES Gail l Result Performing Organization Address [facility] de Phone Number ENRIQUE BETANCOURTCH [address] [facility]. Department [place] [place] [address] * (ABNORMAL) Protime-INR (10/07/2024 4:00 PM CDT) PT 14.2(H) 9.7 - 13.0 sec Comment:Testing performed by : [facility], [address] [facility], [place] [address] INR 1.31(H) 0.90 - 1.20 ENRIQUE TORRES Comment: Interpretive data Oral anticoagulant therapeutic ranges: Venous thromboembolism prophylaxis or treatment: 2.0-3.0 CARDIOLOGY Standard range: 2.0-3.0 High-intensity range: 2.5-3.5 Refer to indication-specific guidelines for appropriate target ranges for prosthetic heart valve replacement. Current interpretive data was last revised on 2019. Testing performed by: [facility], [address], [place] [address] Blood 10/07/2024 4:00 PM CDT 10/07/2024 4:36 PM CDT Haven Cox MD LAB BLOOD ORDERABLES Gail l Result [facility] [address] [place] [address] * (ABNORMAL) Comprehensive metabolic panel (10/07/2024 4:00 PM CDT) Sodium 141 135 - 145 mmol/L Comment:Testing performed by : [facility], [address], [place] [address] Potassium, pl 4.2 3.3 - 4.9 mmol/L ENRIQUE TORRES Comment:Testing performed by : [facility], [address], [place] [address] Chloride 105 97 - 110 mmol/L CERMARCELO BETANCOURTWSTEVE Comment:Testing performed by : [facility], [address], [place] [address] CO2 26 22 - 32 mmol/L CERMARCELO BETANCOURTWCH Comment:Testing performed by : [facility], [address], [place] [address] Anion gap 11 2 - 15 mmol/L ENRIQUE BJWSTEVE Comment:Testing performed by : [facility], [address], [place] [address] BUN 13 6 - 25 mg/dL CERMARCELO BJWCH Comment:Testing performed by : [facility], [address], [place] [address] Creatinine 0.71 0.60 - 1.10 mg/dL CERNER BJWCH Comment:Testing performed by : [facility], [address], [place] [address] Glucose 106 70 - 199 mg/dL CERMARCELO BJWCH Comment: Interpretive Data Fasting glucose >/= 126 mg/dl is diagnostic for diabetes. Fasting is defined as no caloric intake for at least 8 hours. Fasting glucose between 100 mg/dl to 125 mg/dl is diagnostic of prediabetes. In a patient with classic symptoms of hyperglycemia or hyperglycemic crisis, a random glucose >/= 200 mg/dl is diagnostic for diabetes. In the absence of unequivocal hyperglycemia, results should be confirmed by repeat testing. The classification and Diagnosis of Diabetes Diabetes Care 2021; 46: S19-S40. Current interpretive data was last revised 2022. Testing performed by: [facility], [address], [place] [address] Calcium 9.6 8.5 - 10.3 mg/dL CERNER BJWCH Comment:Testing performed by : [facility], [address], [place] [address] Bilirubin, total 1.8(H) 0.1 - 1.2 mg/dL CERNER BJWCH Comment:Testing performed by : [facility], [address], [place] [address] Protein, pl 6.2(L) 6.5 - 8.5 g/dL CERNER BJWCH Comment:Testing performed by : [facility], [address], [place] [address] Albumin 3.6 3.5 - 5.0 g/dL CERNER BJWCH Comment:Testing performed by : [facility], [address], [place] [address] Alk phos 794(H) 40 - 130 Units/L CERNER BJWCH Comment:Testing performed by : [facility], [address], [place] [address] ALT 107(H) 7 - 45 Units/L CERNER BJWCH Comment:Testing performed by : [facility], [address], [place] [address] AST 240(H) 10 - 45 Units/L CERNER BJWCH Comment:Testing performed by : [facility], [address], [place] [address] Blood 10/07/2024 4:00 PM CDT 10/07/2024 4:36 PM CDT Haven Cox MD LAB BLOOD ORDERABLES Gail l Result ENRIQUE BJWCH [address] [facility]. Department [place] [address] * POCT lipid panel (09/27/2024 1:34 PM CDT) Cholesterol, POC 132 <200 MG/DL HDL, POC 67 >=40 mg/dL Triglycerides, POC 45 <=149 mg/dL LDL Cholesterol POC 52 <=129 mg/dL Chol/HDL Ratio, POC 2.0 NONE Non-HDL Cholesterol, POC 64 NONE mg/dL Cholesterol Total, POC 132 30 - 199 mg/dL Capillary blood 09/27/2024 1 :34 PM CDT Onesimo George MD POINT OF CARE TEST ORDERABLES Fi nal Result * Electrocardiogram Report (09/27/2024 1:27 PM CDT) Oensimo George MD ECG ORDERABLES Edited Result - Final * Surgical pathology (09/19/2024 1:07 PM CDT) Tissue (Pancreas, Biopsy) 09/19/2024 1:07 PM CDT Narrative PATHOLOGY [facility] - 09/20/2024 2:24 PM CDT EPIC results best viewed via link to PDF [facility] Suha Monahan Laboratory of Surgical Pathology [facility], [place] [address] Note to Patients: This report may contain [...] Gender: F : 1950 (Age: 73) Address: [address] [place] [address] Hospital #: [id number] Taken:09/19/2024 Received:09/19/2024 Reported: 09/20/2024 Patient Type: [facility] ED Service: Emergency Location: [facility] ED Physician(s): Puma Wagner M.D. Natasha [...] cm in aggregate). Labeled A1. Jar 0. [facility]/09/19/2024 15:19 PA(s): Evelyn Cunningham By this signature, I attest that the above diagnosis is based upon my personal examination of the slides(and/or other material). Addenda/Procedures The performance characteristics of some immunohistochemical stains, fluorescence in-situ hybridization tests and immunophenotyping by flow cytometry cited in this report (if any) were determined by the Surgical Pathology and Flow Cytometry Departments at [facility] as part of an ongoing quality assurance monitor final program and in compliance with federally mandated [...] Surgical Pathology and Flow Cytometry Departments of [facility]. It has not been cleared or approved by the U. S. Food and Drug Administration. IMAGES AND SCANNED DOCUMENTS, IF INCLUDED, ONLY VIEWABLE IN PDF VERSION OF REPORT us David Brewer MD LAB PATHOLOGY ORDERABLES Fi nal Result PATHOLOGY [facility] 3rd Floor [place], [place] [phone] * Upper EUS (09/19/2024 12:32 PM CDT) Anatomical Region Laterality Modality Other Narrative Procedure Note David Brewer MD - 09/19/2024 12:32 PM CDT GI ENDOSCOPY [facility] Patient Name: Susannah Goncalves Procedure Date: 09/19/2024 12:32 PM Date of : 1950 Admit Type: Outpatient Age: 73 Gender: Female Attending MD: David Brewer M.D. Room: [facility] ENDOSCOPY ROOM 1 Note Status: Finalized [...] consent was obtained.The Olympuscurved linear array therapeutic [id number] was introduced through the mouth, and advanced tothe second part of duodenum The GIF [id number] endoscope was introduced through the mouth, and [...] Three passes were madewith the 22 gauge JAMR Labscore needle using a transgastric approach. A stylet [...] following this procedure please call my officeat [phone] ([phone]) to speak to my nurses. After hours and evenings please call [phone] speak to the GI fellow bi solutions architect. Please tell themthat Dr. Brewer did your procedure and that your were instructed to have the fellow call me or thephysician covering for me to discuss the management of your condition. If you have an urgent problem, please goto the nearest emergency room and have the ER doctorcall my office during the day or [facility] transfer ([phone]) center after hours and weekends to arrange admission or transfer to our facility. - Call my nurse Arlyn Segovia RN in the GI office at [phone] for your final pathology results in 7 [...] using the same method. Testing performed by: [facility], [facility], [place]., [address] Blood 09/17/2024 10:3 2 AM CDT 09/17/2024 7:30 PM CDT Ana RODRIGUES LAB BLOOD ORDERABLES Gail l Result Performing Organization Address [facility] Co de Phone Number ENRIQUE BJWCH [address] [place] [address] * (ABNORMAL) CEA (09/17/2024 10:32 AM CDT) CEA 5.2(H) <=5.0 ng/mL Comment: Interpretive Data Reference Range: Non-Smokers: < or = 3.0 ng/mL Some Smokers may have elevated levels, usually < 5.0 ng/mL The Sree CEA assay procedure was used. Results from different manufacturers or methods may not be comparable. Serial testing should be performed using the same method. Testing performed by: [facility], [address] [place] [address]., [address] Blood 09/17/2024 10:3 2 AM CDT 09/17/2024 7:30 PM CDT Ana RODRIGUES LAB BLOOD ORDERABLES Gail l Result Performing Organization Address [facility] Co de Phone Number ENRIQUE BJWCH [address] [facility]. [place] [address] * CT Chest W and Abdomen Pelvis [...] signed by: Segun Bailey M.D. Ana RODRIGUES [facility] CT PROCEDURES Final R esult * FL ERCP Biliary Duct (09/06/2024 1:42 PM CDT) Narrative [facility] - 09/06/2024 1:53 PM CDT The images from this study are not interpreted by Radiology. Please refer to the physician's procedure / OR operative note. David Brewer MD [facility] FLUOROSCOPY PROCEDURES Final Result [facility] * Surgical pathology (09/06/2024 1:25 PM CDT) Lymph node, needle biopsy 09/06/2024 1:25 PM CDT 09/10/2024 11:26 AM CDT Narrative 09/11/2024 3:14 PM CDT [address] [address] Tele: Roxana Gordon MD - Thickener Operator Note to Patients: This report may contain [...] PATHOLOGY REPORT Patient Name: SUSANNAH GONCALVES Address: [address] [place] [address] Gender: F : 1950 (Age: 73) Service: Gastro Location: [facility], Hospital #: [id number] Patient Type: [facility] Taken: 09/06/2024 Received 09/10/2024 [...] follow-up is needed. Clerical Data Follows A; 47424, 19[address], 30590 <CR>, [address]244 REPORT IMAGES AND/OR SCANNED DOCUMENTS ONLY VIEWABLE IN PDF FORMAT The immunohistochemical test(s) cited in this report, if any, was developed and its performance characteristics determined by [facility] Pathology Department. It has not been cleared or approved by the U.S. Food and Drug Administration. The FDA has determined that such clearance or approval is not necessary. This test is used for clinical purposes. It should not be regarded as investigational or for research. [facility] is certified under the Clinical [...] part or completely in the following laboratories: [facility], [address] [place] [address], [address] [place] [address]. us David Brewer MD LAB PATHOLOGY ORDERABLES Fi nal Result * ERCP (09/06/2024 1:03 PM CDT) Anatomical Region Laterality Modality Other Narrative Procedure Note David Brewer MD - 09/06/2024 1:03 PM CDT ENDOSCOPY LAB Patient Name: Susannah Goncalves Procedure Date: 09/06/2024 1:03 PM Admit Type: Outpatient Room: [facility] Date of : 1950 Instrument Name: [...] The patienttolerated the procedure well. Findings: The carpet cutter film was normal. The esophagus was successfully [...] following this procedure please call my officeat [phone] ([phone]) to speak to my nurses. After hours and evenings please call [phone] speak to the GI fellow bi solutions architect. Please tell themthat Dr. Brewer did your procedure and that your were instructed to have the fellow call me or thephysician covering for me to discuss the management of your condition. If you have an urgent problem, please goto the nearest emergency room and have the ER doctorcall my office during the day or [facility] transfer ([phone]) center after hours and weekends to arrange [...] 09/06/2024 1:02 PM Admit Type: Outpatient Room: [facility] Date of : 1950 Instrument Name: [...] following this procedure please call my officeat [phone] ([phone]) to speak to my nurses. After hours and evenings please call [phone] speak to the GI fellow bi solutions architect. Please tell themthat Dr. Brewer did your procedure and that your were instructed to have the fellow call me or thephysician covering for me to discuss the management of your condition. If you have an urgent problem, please goto the nearest emergency room and have the ER doctorcall my office during the day or [facility] transfer ([phone]) center after hours and weekends to arrange admission or transfer to our facility. - Call my nurse Arlyn Segovia RN in the GI office at [phone] for your final results in 7 days. [...] Bilirubin, direct 4.2(H) 0.1 - 0.3 mg/dL [facility] Protein, pl 5.5(L) 6.5 - 8.5 g/dL [facility] Albumin 3.0(L) 3.5 - 5.0 g/dL [facility] Alk phos 1,250(H) 40 - 130 Units/L [facility] ALT 143(H) 7 - 45 Units/L [facility] AST 190(H) 10 - 45 Units/L [facility] Blood 09/06/2024 10:5 0 AM CDT 09/06/2024 10:50 AM CDT Narrative [facility] - 09/06/2024 11:32 AM CDT STAT pre procedure lab same day us Geoffrey Shaver MD LAB BLOOD ORDERABLES Final Result [facility] [address] Department [place] [address] * CT Body Outside Consult (09/05/2024 1:04 [...] STUDY STUDY INITIALLY PERFORMED: 08/28/2024 at [facility]. TYPE OF STUDY: Multiple CT images [...] STUDY STUDY INITIALLY PERFORMED: 08/28/2024 at [facility]. TYPE OF STUDY: Multiple CT images [...] interpretation. Electronically signed by: Mickey Martinez M.D. us David Brewer MD IMG CT PROCEDURES Final Res ult from Last 3 Months Insurance [facility] MEDICARE Address: [place] [id number] [place] [id number] MEDICARE ADVANTAGE [facility] MEDICARE Address: [address] [address] [place] [address] [facility] MEDICARE ADVANTAGE [facility] MEDICARE Address: [facility] [address] [place] [address] Advance Directives For more information, please contact: [phone] * Full Code (Latest Code Status on File) Date Activated Date Inactivated Comments 10/10/2024 10:28 AM 10/11/2024 4:55 AM * Full Code Date Activated Date Inactivated Comments 09/19/2024 12:06 PM 09/19/2024 6:42 PM * Full Code Date Activated Date Inactivated Comments 09/06/2024 12:07 PM 09/06/2024 8:17 PM * Full Code Date Activated Date Inactivated Comments 02/25/2023 1:22 PM 02/28/2023 7:54 PM * Full Code Date Activated Date Inactivated Comments 11/07/2022 2:00 AM 11/08/2022 7:29 PM Care Teams Garnetter Relationship Specialty Start Date End Date Leonidas Ruibo MD [address] [address] PCP - General Family Medicine 09/05/24 Arianna Persaud PA [address] [facility] [address] [place] [address] Physician Crm Technical Lead 08/29/24 David Brewer MD [facility] [address] [place] [address] Referring Physician Gastroenterology 09/23/24 Haven Cox MD [address] [place] [address] Consulting Physician Medical Oncology 09/23/24 Daisy Mercado MD [address] [facility] [address]08[address]19 [place] [address] Consulting Physician General Surgery 09/23/24
--- OUTSIDE RECORDS SUMMARY | 2024-10-14 17:38 | XMS_ITS | Encounter Summary ---
Author Organization [facility] Address [address] [place] [address] Phone Care Team Providers Care Chair Maker Name Role Phone Arianna Persaud Unavailable [phone]- [phone] Leonidas Rubio MD Primary Care Provider David Brewer MD Unavailable [phone] Haven Cox MD Unavailable [phone] Daisy Mercado MD Unavailable [phone] Encounter Details Date Type Department Care Team (Late st Contact Info) Description 09/20/2024 Results Follow-Up [facility] Gastroenterology [address] [place] [address] Medical Office Building [address], [address] [place] [address] David Brewer MD [address] [place] [address] CT Body Outside Consult Social [...] In the past 12 months has e [employer], gas, oil, or water company threatened to [...] often do you attend chur ch or restoration services? Never 02/27/2023 Do you belong to any clubs o r organizations such as rastafari groups, unions, fraternal or athletic groups, or [...] place to sleep or slept in a nursing home (including now)? No 02/27/2023 Personal Safety Answer Date Recorded Have you ever been in or are you currently in a harmful physical or emotional relationship or is someone making you feel afraid or unsafe? 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 Gender Identity Not on file Sexual Orientation Not on file documented as of this encounter Plan of Treatment Not on file documented as of this encounter Visit Diagnoses Not on filedocumented in this encounter Care Teams Chair Maker Relationship Specialty Start Date End Date Leonidas Rubio MD [address] [address] PCP - General Family Medicine 09/05/24 Arianna Persaud PA [address] [facility] [address] [place] [address] Physician Plating Inspector 08/29/24 David Brewer MD [address] [place] [address] Referring Physician Gastroenterology 09/23/24 Haven Cox MD [address] [place] [address] Consulting Physician Medical Oncology 09/23/24 Daisy Mercado MD [address] [facility] 8108-08-19 [place] [address] Consulting Physician General Surgery 09/23/24 documented as of this encounter
--- OUTSIDE RECORDS SUMMARY | 2024-10-14 17:38 | XMS_ITS | Encounter Summary ---
Author Organization [facility] Address [address] [place] [address] Phone Care Team Providers Care Sales And Marketing Assistant Name Role Phone Arianna Persaud Unavailable [phone]- [phone] Leonidas Rubio MD Primary Care Provider David Brewer MD Unavailable Haven Cox MD Unavailable [phone] Daisy Mercado MD Unavailable [phone] Encounter Details Date Type Department Care Team (Late st Contact Info) Description 09/20/2024 Results Follow-Up [facility] Gastroenterology [address] [place] [address] Medical Office Building [address], [address] [place] [address] David Brewer MD [address] [place] [address] Surgical pathology Social History Tobacco [...] doctor or pharmacy Never 04/11/2023 [facility] Utilities Answer Date Recorded In the [...] often do you attend chur ch or jewish services? 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 Gender Identity Not on file Sexual Orientation Not on file documented as of this encounter Plan of Treatment Not on file documented as of this encounter Visit Diagnoses Not on filedocumented in this encounter Care Teams Sales And Marketing Assistant Relationship Specialty Start Date End Date Leonidas Rubio MD [address] [address] PCP - General Family Medicine 09/05/24 Arianna Persaud PA [address] [facility] [address] [place] [address] Physician Sales And Marketing Professional 08/29/24 David Brewer MD [address] [place] [address] Referring Physician Gastroenterology 09/23/24 Haven Cox MD [address] [place] [address] Consulting Physician Medical Oncology 09/23/24 Daisy Mercado MD [address] [facility] 8108-08-19 [place] [address] Consulting Physician General Surgery 09/23/24 documented as of this encounter
--- OUTSIDE RECORDS SUMMARY | 2024-10-14 17:38 | XMS_ITS | Encounter Summary ---
Author Organization [facility] [address] [address] [place] [address] Care Team Providers Care Tafe Registrar Name Role Phone Linette Yepez MD Primary Care Provider [phone] Reason for Visit * Reason Onset Date Comments MEDICAL MANAGEMENT 04/13/2020 [facility]ENNIFER W/ [facility]/ [facility] Encounter Details Date Type Department Care Team ([facility] st Contact Info) Description 04/13/2020 Telephone [facility] Admitting [address] [place] [address] Hong Bryant MD [id number] [place] [address] [place] [address] MEDICAL MANAGEMENT (JENNIFER Nettles/ RAVI Nettles/ HOSPITALIST [...] COVID-19? No / Unsure 04/13/2020 6:46 AM ACCOUNTING INSTRUCTOR documented as of this encounter Plan of Treatment Not on file documented as of this encounter Visit Diagnoses Not on filedocumented in this encounter Care Teams Tafe Registrar Relationship Specialty Start Date End Date Linette Yepez MD PCP - General Family Practice 04/01/20 documented as of this encounter
--- OUTSIDE RECORDS SUMMARY | 2024-10-14 17:39 | XMS_ITS | Encounter Summary ---
Author Organization [facility] Healthcare Address [address] [place] [address] Care Team Providers Care Crosstie Inspector Name Role Phone Arianna Persaud Unavailable [phone] Leonidas Rubio MD Primary Care Provider David Brewer MD Unavailable [phone] Haven Cox MD Unavailable [phone] Daisy Mercado MD Unavailable [phone] Reason for Visit * Episode Based Medications (Routine) - Authorized Specialty Diagnoses / Procedures Referred By Contac t Referred To Contact Diagnoses Pancreatic adenocarcinoma (HCC) Haven Cox MD [address] [facility] [address] [place] [address] Phone: tel: fax: [address] [address] Phone: tel: Referral ID Status Reason Start Date Expiration Date V isits Requested Visits Authorized [id number] Authorized 10/08/2024 10/08/2025 1 12 Encounter Details Date Type Department Care Team (Latest Contact Info) Description 10/14/2024 7:30 AM CDT Clinical Support [facility] [address] [facility] KAREN BARKER [id number] Pancreatic adenocarcinoma (HCC) Social History Tobacco Use Types Packs/Day Years [...] doctor or pharmacy Never 04/11/2023 [facility] Utilities Answer Date Recorded In the past 12 months has th e [a]list games, gas, oil, or water company threatened to [...] often do you attend chur ch or pentecostal services? 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 Gender Identity Not on file Sexual Orientation Not on file documented as of this encounter Plan of Treatment Not on file documented as of this encounter Procedures Procedure Name Priority Date/Time Associated Diagnosis Comments EGFR STAT 10/14/2024 8:30 AM CDT Pancreatic adenocarcinoma (HCC) DIFFERENTIAL AUTO Routine 10/14/2024 8:3 0 AM CDT Pancreatic adenocarcinoma (HCC) CBC WITH AUTO DIFFERENTIAL Routine 10/14/2024 8:30 AM CDT Pancreatic adenocarcinoma (HCC) CANCER ANTIGEN 19-9 Routine 10/14/2024 8 :30 AM CDT Pancreatic adenocarcinoma (HCC) COMPREHENSIVE METABOLIC PANEL STAT 10/14/2024 8:30 AM CDT Pancreatic adenocarcinoma (HCC) documented in this encounter Results * eGFR (10/14/2024 8:30 AM CDT) [...] was last reviewed 2021. Testing performed by: [facility], [address] [place] [address] Blood 10/14/2024 8:30 AM CDT 10/14/2024 8:54 AM CDT Ibeth'Maurisio Cox MD LAB BLOOD ORDERABLES Gail garcia Result ENRIQUE [facility] [address] [facility]. Department [place] [address] * Differential, auto (10/14/2024 8:30 AM CDT) Neutrophil abs 3.00 1.50 - 6.50 K/cumm Comment:Testing performed by : [facility], [facility], [address] [place] [address] Imm gran abs 0.00 0.00 - 0.10 K/cumm CERNER BJWCH Comment:Testing performed by : [facility], [facility], [address] [place] [address] Lymphocyte abs 1.24 0.80 - 3.30 K/cumm CERNER BJWCH Comment:Testing performed by : [facility], [facility], [address] [place] [address] Monocyte abs 0.80 0.20 - 0.80 K/cumm CERNER BJWCH Comment:Testing performed by : [facility], [facility], [address] [place] [address] Eosinophil abs 0.12 0.00 - 0.50 K/cumm CERNER BJWCH Comment:Testing performed by : [facility], [facility], [address] [place] [address] Basophil abs 0.03 0.00 - 0.10 K/cumm CERNER BJWCH Comment:Testing performed by : [facility], [facility], [address] [place] [address] Neutrophil pct 57.8 % CERNER [facility] Comment: Interpretive Data Percent cell count reference ranges are not reported, since discordance with absolute values may lead to misinterpretation of CBC data. Current Interpretive Data was last revised on 2017. Testing performed by: [facility], [facility], [address] [place] [address] Imm gran pct 0.0 % CERNER B[facility] Comment: Interpretive Data Percent cell count reference ranges are not reported, since discordance with absolute values may lead to misinterpretation of CBC data. Current Interpretive Data was last revised on 2017. Testing performed by: [facility], [facility], [address] [place] [address] Lymphocyte pct 23.9 % CERNER B[facility] Comment: Interpretive Data Percent cell count reference ranges are not reported, since discordance with absolute values may lead to misinterpretation of CBC data. Current Interpretive Data was last revised on 2017. Testing performed by: [facility], [facility], [address] [place] [address] Monocyte pct 15.4 % ENRIQUE TORRES Comment: Interpretive Data Percent cell count reference ranges are not reported, since discordance with absolute values may lead to misinterpretation of CBC data. Current Interpretive Data was last revised on 2017. Testing performed by: [facility], [facility], [address] [place] [address] Eosinophil pct 2.3 % ENRIQUE TORRES Comment: Interpretive Data Percent cell count reference ranges are not reported, since discordance with absolute values may lead to misinterpretation of CBC data. Current Interpretive Data was last revised on 2017. Testing performed by: [facility], [facility], [address] [place] [address] Basophil pct 0.6 % ENRIQUE TORRES Comment: Interpretive Data Percent cell count reference ranges are not reported, since discordance with absolute values may lead to misinterpretation of CBC data. Current Interpretive Data was last revised on 2017. Testing performed by: [facility], [facility], [address] [place] [address] Blood 10/14/2024 8:30 AM CDT 10/14/2024 8:33 AM CDT us Haven Cox MD LAB BLOOD ORDERABLES Gail garcia Result [facility] [address] [facility]. [place] [address] * (ABNORMAL) Cancer antigen 19-9 (10/14/2024 8:30 AM CDT) CA 19-9 ag 46.8(H) 0.0 - 35.0 units/mL Comment: Interpretive Data The Sree CA 19-9 assay procedure was used. Results from different manufacturers or methods may not be comparable. Serial testing should be performed using the same method. Testing performed by: [facility], [facility], [place]., [address] Blood 10/14/2024 8:30 AM CDT 10/14/2024 10:46 AM CDT [facility] LAB BLOOD ORDERABLES Gail garcia Result [facility] [address] [facility]. Department [place] [address] * (ABNORMAL) CBC with auto differential (10/14/2024 8:30 AM CDT) Pathologist [facility] WBC 5.19 3.80 - 9.90 K/cumm Comment:Testing performed by : [facility], [address] [place] [address] Hgb 8.8(L) 11.9 - 15.5 g/dL [facility] Comment:Testing performed by : [facility], [address] [place] [address] Hct 27.5(L) 35.6 - 45.5 % [facility] Comment:Testing performed by : [facility], [address] [place] [address] Plt 209 150 - 400 K/cumm [facility] Comment:Testing performed by : [facility], [address] [place] [address] MPV 9.7 9.1 - 12.3 fL [facility] Comment:Testing performed by : [facility], [address] [place] [address] RBC 3.04(L) 3.90 - 5.20 M/cumm ENRIQUE BETANCOURTWCH Comment:Testing performed by : [facility], [address] [place] [address] MCV 90.5 81.3 - 96.4 fL [facility] Comment:Testing performed by : [facility], [facility], [address] [place] [address] MCH 28.9 27.1 - 33.3 pg ENRIQUE BETANCOURTWCH Comment:Testing performed by : [facility], [address] [place] [address] MCHC 32.0(L) 32.3 - 35.7 g/dL ENRIQUE BETANCOURTWCH Comment:Testing performed by : [facility], [facility], [address] [place] [address] RDW CV 14.4 11.1 - 14.9 % [facility] Comment:Testing performed by : [facility], [address] [place] [address] RDW SD 47.6 35.7 - 48.1 fL ENRIQUE BETANCOURTCH Comment:Testing performed by : [facility], [facility], [address] [place] [address] ANC Prelim 3.00 1.50 - 6.50 K/cumm [facility] Comment: Interpretive Data The rapid ANC is a preliminary automated count and may vary from the final ANC (Neut Abs) reported in the WBC differential that follows. Current interpretive data was last revised 2024. Testing performed by: [facility], [facility], [address] [place] [address] Blood 10/14/2024 8:30 AM CDT 10/14/2024 8:33 AM CDT us Ibeth'Maurisio Cox MD LAB BLOOD ORDERABLES Gail garcia Result ENRIQUE [facility] [address] [facility]. [place] [address] * (ABNORMAL) Comprehensive metabolic panel (10/14/2024 8:30 AM CDT) Sodium 138 135 - 145 mmol/L Comment:Testing performed by : [facility], [address], [place] [address] Potassium, pl 3.7 3.3 - 4.9 mmol/L CERNER BJW[facility] Comment:Testing performed by : [facility], [address], [place] [address] Chloride 103 97 - 110 mmol/L CERNER B[facility] Comment:Testing performed by : [facility], [address], [place] [address] CO2 23 22 - 32 mmol/L CERNER B[facility] Comment:Testing performed by : [facility], [address], [place] [address] Anion gap 12 2 - 15 mmol/L CERNER [facility] Comment:Testing performed by : [facility], [address], [place] [address] BUN 14 6 - 25 mg/dL CERNER B[facility] Comment:Testing performed by : [facility], [address], [place] [address] Creatinine 0.74 0.60 - 1.10 mg/dL CERNER BJW[facility] Comment:Testing performed by : [facility], [address], [place] [address] Glucose 94 70 - 199 mg/dL CERNER BJW Comment: Interpretive Data Fasting glucose >/= 126 [...] was last revised 2022. Testing performed by: [facility], [address], [place] [address] Calcium 9.1 8.5 - 10.3 mg/dL CERNER B[facility] Comment:Testing performed by : [facility], [address], [place] [address] Bilirubin, total 0.6 0.1 - 1.2 mg/dL CERNER B[facility] Comment:Testing performed by : [facility], [address], [place] [address] Protein, pl 5.7(L) 6.5 - 8.5 g/dL CERNER [facility] Comment:Testing performed by : [facility], [address], [place] [address] Albumin 3.4(L) 3.5 - 5.0 g/dL CERNER B[facility] Comment:Testing performed by : [facility], [address], [place] [address] Alk phos 387(H) 40 - 130 Units/L CERNER BJW[facility] Comment:Testing performed by : [facility], [address], [place] [address] ALT 37 7 - 45 Units/L CERNER B[facility] Comment:Testing performed by : [facility], [address], [place] [address] AST 22 10 - 45 Units/L CERNER BJW[facility] Comment:Testing performed by : [facility], [address], [place] [address] Blood 10/14/2024 8:30 AM CDT 10/14/2024 8:54 AM CDT [facility] Cox MD LAB BLOOD ORDERABLES Gail l Result [facility] [address] Department [place] [address] documented in this encounter Visit Diagnoses Diagnosis Pancreatic adenocarcinoma (HCC) Malignant neoplasm of pancreas, part unspecified documented in this encounter Orders Appointment Requests Count Last Ordered Date Fi rst Ordered Date ONCBCN LAB APPOINTMENT 1 10/14/2024 documented in this encounter Care Teams Crosstie Inspector Relationship Specialty Start Date End Date Leonidas Rubio MD [address] [place] [address] PCP - General Family Medicine 09/05/24 Arianna Persaud PA [address] [place] [address] Physician Public Health Microbiologist 08/29/24 David Brewer MD [address] [place] [address] Referring Physician Gastroenterology 09/23/24 Haven Cox MD [address] [place] [address] Consulting Physician Medical Oncology 09/23/24 Daisy Mercado MD [address] [facility] [id number] [place] [address] Consulting Physician General Surgery 09/23/24 documented as of this encounter
--- OUTSIDE RECORDS SUMMARY | 2024-10-14 17:39 | XMS_ITS | Encounter Summary ---
Author Organization [facility] Healthcare Address [address] [place] [address] Care Team Providers Care Customer Account Manager Name Role Phone Arianna Persaud Unavailable [phone] Leonidas Rubio MD Primary Care Provider David Brewer MD Unavailable [phone] Haven Cox MD Unavailable [phone] Daisy Mercado MD Unavailable [phone] Encounter Details Date Type Department Care Team (Late st Contact Info) Description 10/14/2024 Documentation [facility] at [address] [address] Social History Tobacco Use Types Packs/Day Years [...] materials from doctor or pharmacy Never 04/11/2023 [facility] Utilities Answer Date Recorded In the [...] often do you attend chur ch or anglican services? Never 02/27/2023 Do you belong to [...] place to sleep or slept in a retirement (including now)? No 02/27/2023 Personal Safety Answer Date Recorded Have you ever been in or are you currently in a harmful physical or emotional relationship or is someone making you feel afraid or unsafe? 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 Gender Identity Not on file Sexual Orientation Not on file documented as of this encounter Plan of Treatment Not on file documented as of this encounter Visit Diagnoses Not on filedocumented in this encounter Care Teams Customer Account Manager Relationship Specialty Start Date End Date Leonidas Rubio MD [address] [address] PCP - General Family Medicine 09/05/24 Arianna Persaud PA [address] [address] Physician Certified Surgical Assistant 08/29/24 David Brewer MD [address] [place] [address] Referring Physician Gastroenterology 09/23/24 Haven Cox MD [address] [place] [address] Consulting Physician Medical Oncology 09/23/24 Daisy Mercado MD [address] [place] [address] Consulting Physician General Surgery 09/23/24 documented as of this encounter
--- OUTSIDE RECORDS SUMMARY | 2024-10-14 17:39 | XMS_ITS | Clinical Summary ---
Author Organization [facility] Address [address] [place] [address] Care Team Providers Care Showroom Sales Assistant Name Role Phone Arianna Persaud Unavailable [phone] Leonidas Rubio MD Primary Care Provider David Brewer MD Unavailable Haven Cox MD Unavailable Daisy Mercado MD Unavailable [phone] Allergies Active Allergy Reactions Criticality Noted Date [...] 06/21/2022 Assessment & Plan (06/21/2022 7:25 PM SALES PROGRAM MANAGER): Worsening after of her mother in 04/2022. Feels more anxiety than depression. Admits panic attacks. Reluctant to start daily medication, don't want to feel trapped into taking medicine. Will Rx BuSpar as directed. Encouraged relaxation techniques such as deep breathing and guided imagery. Keep follow as scheduled, sooner if needed. Diarrhea 06/20/2022 Assessment & Plan (06/21/2022 7:16 PM SALES PROGRAM MANAGER): Ongoing for approximately 1 week after finishing a course of cefdinir for UTI. No more urinary symptoms or abdominal pain. No acute findings on exam. Will order CDiff test. Advised on Bowel rest: push fluids, bland high fiber diet. Continue immodium if needed. Vulvovaginitis 06/20/2022 Assessment & Plan (06/21/2022 7:17 PM SALES PROGRAM MANAGER): S/p cefdinir course for UTI. Denies discharge or genital lesions. exam deferred per pt request. Rxd Diflucan as directed. Use mild non-fragrant soaps/lotions. Recurrent UTI 06/08/2022 Assessment & Plan (06/08/2022 2:35 PM SALES PROGRAM MANAGER): Currently on Abx for treatment. Patient [...] 12/23/2021 Assessment & Plan (06/21/2022 7:12 PM SALES PROGRAM MANAGER): BP stable in office today on current therapy. Continue current regimen and low salt diet. Stay hydrated. Assessment & Plan (06/08/2022 2:36 PM SALES PROGRAM MANAGER): Chronic and mildly elevated. Goal < [...] 12/23/2021 Assessment & Plan (06/08/2022 2:35 PM SALES PROGRAM MANAGER): Chronic and stable. 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 Assessment & Plan (12/23/2021 12:10 [...] Type Department Care Team Description 10/15/19 25 7:30 AM CDT Clinical Support [facility] [address] [facility] [place] [address] Pancreatic adenocarcinoma (HCC) 10/15/19 25 Orders Only [facility] Oncology [address] [facility] Floor 5 [place] [address] Lissette Ortiz, AUSTEN Pancreatic adenocarcinoma (HCC) (Primary Dx) 10/15/19 25 Documentation [facility] at [address] [place], [place] [address] Billie Harry, WALTER 10/15/19 25 Documentation [facility] Oncology [address] [place] [address] [address] [place] [phone] Katt Rios LCSW 10/11/19 8:50 AM CDT - 10/11/19 11:59 PM CDT Hospital Encounter [facility] [address] [place] [address] Mary Kay Campuzano, RT Sj, Taylor Quintana, RN Kacie Cain RN Pancreatic adenocarcinoma (HCC) Discharge Disposition: Discharge to home or self care 10/11/19 7:09 AM CDT - 10/11/19 11:59 PM CDT Hospital Encounter [facility] [address] [facility] Medical Office Building 2 [place] [address] Pancreatic adenocarcinoma (HCC) Discharge Disposition: Discharge to home or self care 10/10/19 25 Telephone [facility] [address] [place] [address] Leslie Amrando, AUSTEN 10/10/19 Telephone [facility] [address] [address] [place] [address] Megan Hsu RN 10/08/19 3:45 PM CDT Lab [facility] [place] at [address] [place] [address] Pancreatic adenocarcinoma (HCC) 10/08/19 2:00 PM CDT Office Visit [facility] Oncology [address] [facility] [address] [place] [phone] Haven Cox MD Pancreatic adenocarcinoma (HCC) (Primary Dx); Pancreatic mass 09/28/19 1:45 PM CDT Office Visit [facility] [address] [facility] [address] [place] [address] Onesimo George MD Atrial fibrillation status post cardioversion (HCC) (Primary Dx); History of cardiac radiofrequency ablation; Essential hypertension; Pancreatic adenocarcinoma (HCC); NOMI on CPAP; Lipid screening 09/21/19 Results Follow-Up [facility] Gastroenterology [address] [place] [address] Medical Office Building 4, [address] [place] [phone] David Brewer MD CT Body Outside Consult 09/21/19 Results Follow-Up [facility] Gastroenterology [address] [place] [address] Medical Office Building 4, [address] [place] [phone] David Brewer MD Surgical pathology 09/20/19 12:40 PM CDT Anesthesia Event [facility] Digestive Disease [address] [place] [address] Travis Whittington MD 09/20/19 10:17 AM CDT - 09/20/19 2:37 PM CDT Emergency [facility] [address] [place] [address] Morgan Celestin MD Das, Koushik Kumar, MD Fall, initial encounter (Primary Dx); Pancreatic mass Discharge Disposition: Discharge to home or self care 09/20/19 9:30 AM CDT - 09/20/19 10:30 AM CDT Surgery [facility] [address] [place] [address] David Brewer MD ESOPHAGOGASTRODUODENOSCOPY ULTRASOUND FINE NEEDLE ASPIRATION/BIOPSY [GI534] 09/19/19 25 Telephone [facility] Department of Hepatobiliary, Pancreatic, & Gastrointestinal Surgery [address] [facility] 12th Floor, [place] [phone] Hilda Love PA 09/18/19 25 12:15 PM CDT Lab [facility] at [address] [place] [phone] Pancreatic mass; 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, unspecified; Encounter for follow-up examination after completed treatment for conditions other than malignant neoplasm 09/18/19 25 8:30 AM CDT Office Visit [facility] Surgery [address] [place] [address] [address] [place] [phone] Daisy Mercado MD Pancreatic mass (Primary Dx); Other specified diseases of pancreas; Encounter for follow-up examination after completed treatment for conditions other than malignant neoplasm; Neoplasm of uncertain behavior of other specified digestive organs 09/18/19 25 Telephone [facility] Surgery [address] [place] [address] [address] [place] [phone] Susan Marroquin RN 09/14/19 12:53 PM CDT - 09/14/19 11:59 PM CDT Hospital Encounter [facility] [address] [place] [address] Pancreatic mass Discharge Disposition: Discharge to home or self care 09/14/19 25 Orders Only [facility] Surgery [address] [place] [address] [address] [place] [phone] Ana Sánchez PA Liver lesion (Primary Dx) 09/14/19 25 Orders Only [facility] Gastroenterology [address] [place] [address] Medical Office Building 4, [address] [place] [address] David Brewer MD Elevated liver function tests (Primary Dx) 09/13/19 25 Telephone [facility] Gastroenterology [address] [place] [address] Medical Office Building 4, [address] [place] [address] Arlyn Segovia, family educator call 09/13/19 Orders Only [facility] Gastroenterology [address] [facility] Medical Office Building 4, [address] [place] [address] Arlyn Segovia, AUSTEN Pancreatic mass (Primary Dx) 09/12/19 Results Follow-Up [facility] Gastroenterology [address] [facility] Medical Office Building 4, [address] [place] [address] David Brewer MD Surgical pathology 09/12/19 Telephone [facility] Surgery [address] [facility] [address] [place] [phone] Susan Marroquin RN 09/07/19 1:07 PM CDT Anesthesia Event [facility] [address] [place] [phone] Wayne Nicholson MD 09/07/19 12:30 PM CDT - 09/07/19 1:00 PM CDT Surgery [facility] [address] [place] [phone] David Brewer MD ESOPHAGOGASTRODUODENOSCOPY ULTRASOUND GUIDE LIMITED 09/07/19 11:07 AM CDT - 09/07/19 4:10 PM CDT Hospital Encounter [facility] [address] [place] [phone] Geoffrey Shaver MD Das, Koushik Kumar, MD Pancreatic mass; Elevated liver function tests Discharge Disposition: Discharge to home or self care 09/07/19 10:35 AM CDT Lab [facility] Outpatient Lab [address] [place] [phone] Pancreatic mass; Elevated liver function tests 09/07/19 6:50 AM CDT - 09/07/19 11:59 PM CDT Hospital Encounter [facility] Center [address] [place] [phone] Upper abdominal pain Discharge Disposition: Discharge to home or self care 09/07/19 Orders Only [facility] Center [address] [facility] [place] [phone] David Brewer MD 09/06/19 25 1:04 PM CDT - 09/06/19 11:59 PM CDT Hospital Encounter [facility] [address] [place] [address] Diagnosis unknown Discharge Disposition: Discharge to home or self care 09/05/19 25 Telephone [facility] Cardiology [address] [facility] [address] [place] [address] Onesimo George MD cardiac clearance 09/05/19 25 Telephone [facility] Gastroenterology [address] [facility] Medical Office Building 4, [address] [place] [phone] Carmen Ordonez LPN GI Preprocedure 09/04/19 25 Telephone [facility] Advanced [facility] ([facility] Minimally Invasive Surgery [address] [facility] Medicine 12th Floor, [place] [phone] Daisy Mercado MD Medical Question/Miscellaneous 09/03/19 25 Orders Only [facility] Surgery [address] [facility] [address] [place] [phone] Ana Sánchez PA Pancreatic mass (Primary Dx); Encounter for follow-up examination after completed treatment for conditions other than malignant neoplasm; 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 Never 02/27/2023 Do you belong to any clubs o r organizations such as sabianism groups, unions, fraternal or athletic groups, or [...] on file Legal Sex Female 6:30 PM SALES PROGRAM MANAGER Gender Identity Not on file Sexual [...] 10/14/2024 9:01 AM CDT Plan of Treatment Health Maintenance [...] 2024 01/16/20 15, 02/21/2009 Fall Risk Assessment 10/10/2025 10/10/2024, 09/27/2024, 09/19/2023, Additional history exists Medical Devices Implanted Type Area Director Emergency Department Device Identifier Shelf Expiration Date Model / Serial / Lot Conmed Chris Viabil 10mm X 6cm Shortwire [id number] - [id number] - [id number] Implanted:Qty: 1 on 09/06/2024 by David Brewer MD at [facility] Stent N/A: Bile Duct Conmed Chris 06/19/2027 [id number] / [id number] / [employer] Excela Low Porfile Power Port 8fr 1.6mm 1 Lumen [id number] - [id number] Implanted:Qty: 1 on 10/10/2024 at [facility] [employer] 05/07/2029 [id number] / / [id number] Procedures Procedure Name Priority Date/Time Associated Diagnosis [...] was last reviewed 2021. Testing performed by: [facility], [address] [place] [address] Blood 10/14/2024 8:30 AM CDT 10/14/2024 8:54 AM CDT [facility]aur[facility] MD LAB BLOOD ORDERABLES Gail l Result [facility] [address] [address] [place]. Department of Laboratories [place], [place] [phone] * Differential, auto (10/14/2024 8:30 AM CDT) Pathologist [facility] Neutrophil abs 3.00 1.50 - 6.50 K/cumm Comment:Testing performed by : [facility], MOB 2, [address] [place] [address] Imm gran abs 0.00 0.00 - 0.10 K/cumm ENRIQUE TORRES Comment:Testing performed by : [facility], M[facility] 2, [address] [place] [address] Lymphocyte abs 1.24 0.80 - 3.30 K/cumm CERNER BJWCH Comment:Testing performed by : [facility], [facility], [address] [place] [address] Monocyte abs 0.80 0.20 - 0.80 K/cumm CERNER BJWCH Comment:Testing performed by : [facility], [facility], [address] [place] [address] Eosinophil abs 0.12 0.00 - 0.50 K/cumm CERNER BJWCH Comment:Testing performed by : [facility], [facility], [address] [place] [address] Basophil abs 0.03 0.00 - 0.10 K/cumm CERNER BJWCH Comment:Testing performed by : [facility], [facility], [address] [place] [address] Neutrophil pct 57.8 % CERNER BJWCH Comment: Interpretive Data Percent cell count reference ranges are not reported, since discordance with absolute values may lead to misinterpretation of CBC data. Current Interpretive Data was last revised on 2017. Testing performed by: [facility], [facility], [address] [place] [address] Imm gran pct 0.0 % CERNER BJWCH Comment: Interpretive Data Percent cell count reference ranges are not reported, since discordance with absolute values may lead to misinterpretation of CBC data. Current Interpretive Data was last revised on 2017. Testing performed by: [facility], [facility], [address] [place] [address] Lymphocyte pct 23.9 % CERNER BJWCH Comment: Interpretive Data Percent cell count reference ranges are not reported, since discordance with absolute values may lead to misinterpretation of CBC data. Current Interpretive Data was last revised on 2017. Testing performed by: [facility], [facility], [address] [place] [address] Monocyte pct 15.4 % CERNER BJWCH Comment: Interpretive Data Percent cell count reference ranges are not reported, since discordance with absolute values may lead to misinterpretation of CBC data. Current Interpretive Data was last revised on 2017. Testing performed by: [facility] 2, [address] [place] [address] Eosinophil pct 2.3 % ENRIQUE TORRES Comment: Interpretive Data Percent cell count reference ranges are not reported, since discordance with absolute values may lead to misinterpretation of CBC data. Current Interpretive Data was last revised on 2017. Testing performed by: [facility] 2, [address] [place] [address] Basophil pct 0.6 % ENRIQUE TORRES Comment: Interpretive Data Percent cell count reference ranges are not reported, since discordance with absolute values may lead to misinterpretation of CBC data. Current Interpretive Data was last revised on 2017. Testing performed by: [facility] 2, [address] [place] [address] Blood 10/14/2024 8:30 AM CDT 10/14/2024 8:33 AM CDT us [facility]aurisio [facility] MD LAB BLOOD ORDERABLES Gail l Result [facility] [address] [facility]. Department [place] [address] * (ABNORMAL) CBC with auto differential (10/14/2024 8:30 AM CDT) WBC 5.19 3.80 - 9.90 K/cumm Comment:Testing performed by : [facility], [facility], [address] [place] [address] Hgb 8.8(L) 11.9 - 15.5 g/dL ENRIQUE TORRES Comment:Testing performed by : [facility] 2, [address] [place] [address] Hct 27.5(L) 35.6 - 45.5 % ENRIQUE TORRES Comment:Testing performed by : [facility] 2, [address] [place] [address] Plt 209 150 - 400 K/cumm CERNER BJWCH Comment:Testing performed by : [facility] 2, [address] [place] [address] MPV 9.7 9.1 - 12.3 fL CERNER BJWCH Comment:Testing performed by : [place] [address], [address] [place] [address] RBC 3.04(L) 3.90 - 5.20 M/cumm CERNER BJWCH Comment:Testing performed by : [place] [address], [address] [place] [address] MCV 90.5 81.3 - 96.4 fL CERNER BJWCH Comment:Testing performed by : [place] [address], [address] [place] [address] MCH 28.9 27.1 - 33.3 pg CERNER BJWCH Comment:Testing performed by : [place] [address], [address] [place] [address] MCHC 32.0(L) 32.3 - 35.7 g/dL CERNER BJWCH Comment:Testing performed by : [facility] 2, [address] [place] [address] RDW CV 14.4 11.1 - 14.9 % CERNER BJWCH Comment:Testing performed by : [place] [address], [address] [place] [address] RDW SD 47.6 35.7 - 48.1 fL CERNER BJWCH Comment:Testing performed by : [place] [address], [address] [place] [address] ANC Prelim 3.00 1.50 - 6.50 K/cumm CERNER BJWCH Comment: Interpretive Data The rapid ANC is a preliminary automated count and may vary from the final ANC (Neut Abs) reported in the WBC differential that follows. Current interpretive data was last revised 2024. Testing performed by: [facility] 2, [address], [place] [address] Blood 10/14/2024 8:30 AM CDT 10/14/2024 8:33 AM CDT [facility] LAB BLOOD ORDERABLES Gail l Result Performing Organization Address [facility] Co de Phone Number [facility] [address] [facility]. Department [place] [address] * (ABNORMAL) Cancer antigen 19-9 (10/14/2024 8:30 AM CDT) CA 19-9 ag 46.8(H) 0.0 - 35.0 units/mL Comment: Interpretive Data The Rsee CA 19-9 assay procedure was used. Results from different manufacturers or methods may not be comparable. Serial testing should be performed using the same method. Testing performed by: [facility], [address] [place] [address]., [address] Blood 10/14/2024 8:30 AM CDT 10/14/2024 10:46 AM CDT [facility] MD LAB BLOOD ORDERABLES Gail l Result Performing Organization Address [facility] Co de Phone Number ENRIQUE BETANCOURTCH [address]. Department [place] [address] * (ABNORMAL) Comprehensive metabolic panel (10/14/2024 8:30 AM CDT) Sodium 138 135 - 145 mmol/L Comment:Testing performed by : [facility], [address] [place] [address] Potassium, pl 3.7 3.3 - 4.9 mmol/L ENRIQUE TORRES Comment:Testing performed by : [facility], [address] [place] [address] Chloride 103 97 - 110 mmol/L CERNER BJWCH Comment:Testing performed by : [facility], [address], [place] [address] CO2 23 22 - 32 mmol/L CERNER BJWCH Comment:Testing performed by : [facility], [address], [place] [address] Anion gap 12 2 - 15 mmol/L CERNER BJWCH Comment:Testing performed by : [facility], [address], [place] [address] BUN 14 6 - 25 mg/dL CERNER BJWCH Comment:Testing performed by : [facility], [address], [place] [address] Creatinine 0.74 0.60 - 1.10 mg/dL CERNER BJWCH Comment:Testing performed by : [facility], [address], [place] [address] Glucose 94 70 - 199 mg/dL CERNER [...] was last revised 2022. Testing performed by: [facility], [address], [place] [address] Calcium 9.1 8.5 - 10.3 mg/dL CERNER BJWCH Comment:Testing performed by : [facility], [address], [place] [address] Bilirubin, total 0.6 0.1 - 1.2 mg/dL CERNER BJWCH Comment:Testing performed by : [facility], [address], [place] [address] Protein, pl 5.7(L) 6.5 - 8.5 g/dL CERNER BJWCH Comment:Testing performed by : [facility], [address], [place] [address] Albumin 3.4(L) 3.5 - 5.0 g/dL CERNER BJWCH Comment:Testing performed by : [facility], [address], [place] [address] Alk phos 387(H) 40 - 130 Units/L CERNER BJWCH Comment:Testing performed by : [facility], [address], [place] [address] ALT 37 7 - 45 Units/L CERNER BJWCH Comment:Testing performed by : [facility], [address], [place] [address] AST 22 10 - 45 Units/L CERNER BJWCH Comment:Testing performed by : [facility], [address], [place] [address] Blood 10/14/2024 8:30 AM CDT 10/14/2024 8:54 AM CDT us [facility]io [facility] MD LAB BLOOD ORDERABLES Gail l Result ENRIQUE TORRES [address] [address]. Department [place] [address] * IR Port Placement Chest > 5 [...] removal can be scheduled by calling [facility] - [phone] [facility] - [phone] Electronically signed by: Feliciano Martinez PA-C Narrative [...] was obtained. Prior to beginning the procedure, Meherrin Protocol was used to confirm the patient's [...] was obtained. Prior to beginning the procedure, Meherrin Protocol was used to confirm the patient's [...] removal can be scheduled by calling [facility] - [phone] [facility] - [phone] Electronically signed by: Feliciano Martinez PA-C us [facility] M Mili Cox MD IMG IR PROCEDURES Final R esult * [...] obtained. The study was interpreted on the [employer] workstation. The mean liver SUV (reported for quality control checker purposes) is 1.7. The total scanned area [...] obtained. The study was interpreted on the [employer] workstation. The mean liver SUV (reported for quality control checker purposes) is 1.7. The total scanned area [...] it. Electronically signed by: Johan Krishna MD [facility] Mili Cox MD IMG PET PROCEDURES Final Result * eGFR (10/07/2024 [...] was last reviewed 2021. Testing performed by: [facility], [address] [place] [address] Blood 10/07/2024 4:00 PM CDT 10/07/2024 4:36 PM CDT us [facility]'Maurisio Cox MD LAB BLOOD ORDERABLES Gail l Result ENRIQUE [facility] [address] [address]. Department of Laboratories [place], [place] [id number] * (ABNORMAL) Differential, auto (10/07/2024 4:00 PM CDT) Neutrophil abs 4.52 1.50 - 6.50 K/cumm Comment:Testing performed by : [facility], [facility], [address] [place] [address] Imm gran abs 0.01 0.00 - 0.10 K/cumm ENRIQUE TORRES Comment:Testing performed by : [facility], [facility], [address] [place] [address] Lymphocyte abs 0.48(L) 0.80 - 3.30 K/cumm ENRIQUE TORRES Comment:Testing performed by : [facility] 2, [address] [place] [address] Monocyte abs 0.37 0.20 - 0.80 K/cumm ENRIQUE TORRES Comment:Testing performed by : [facility] 2, [address] [place] [address] Eosinophil abs 0.01 0.00 - 0.50 K/cumm CERNER BJWCH Comment:Testing performed by : [facility], [facility], [address] [place] [address] Basophil abs 0.01 0.00 - 0.10 K/cumm CERNER BJWCH Comment:Testing performed by : [facility], [facility], [address] [place] [address] Neutrophil pct 83.6 % CERNER BJWCH Comment: Interpretive Data Percent cell count reference ranges are not reported, since discordance with absolute values may lead to misinterpretation of CBC data. Current Interpretive Data was last revised on 2017. Testing performed by: [facility], [facility], [address] [place] [address] Imm gran pct 0.2 % CERNER BJWCH Comment: Interpretive Data Percent cell count reference ranges are not reported, since discordance with absolute values may lead to misinterpretation of CBC data. Current Interpretive Data was last revised on 2017. Testing performed by: [facility], [facility], [address] [place] [address] Lymphocyte pct 8.9 % CERNER BJWCH Comment: Interpretive Data Percent cell count reference ranges are not reported, since discordance with absolute values may lead to misinterpretation of CBC data. Current Interpretive Data was last revised on 2017. Testing performed by: [facility], [facility], [address] [place] [address] Monocyte pct 6.9 % CERNER BJWCH Comment: Interpretive Data Percent cell count reference ranges are not reported, since discordance with absolute values may lead to misinterpretation of CBC data. Current Interpretive Data was last revised on 2017. Testing performed by: [facility], [facility], [address] [place] [address] Eosinophil pct 0.2 % CERNER BJWCH Comment: Interpretive Data Percent cell count reference ranges are not reported, since discordance with absolute values may lead to misinterpretation of CBC data. Current Interpretive Data was last revised on 2017. Testing performed by: [facility], [address] [place] [address] Basophil pct 0.2 % ENRIQUE TORRES Comment: Interpretive Data Percent cell count reference ranges are not reported, since discordance with absolute values may lead to misinterpretation of CBC data. Current Interpretive Data was last revised on 2017. Testing performed by: [place] [address], [address] [place] [address] Blood 10/07/2024 4:00 PM CDT 10/07/2024 4:01 PM CDT [facility]Maurisio Cox MD LAB BLOOD ORDERABLES Gail garcia Result [facility] [address] [facility] Department [place] [address] * (ABNORMAL) CBC with auto differential (10/07/2024 4:00 PM CDT) WBC 5.40 3.80 - 9.90 K/cumm Comment:Testing performed by : [place] [address], [address] [place] [address] Hgb 9.0(L) 11.9 - 15.5 g/dL ENRIQUE TORRES Comment:Testing performed by : [address] [place] [address] Hct 28.7(L) 35.6 - 45.5 % ENRIQUE TORRES Comment:Testing performed by : [place] [address], [address] [place] [address] Plt 185 150 - 400 K/cumm ENRIQUE TORRES Comment:Testing performed by : [place] [address], [address] [place] [address] MPV 9.1 9.1 - 12.3 fL ENRIQUE TORRES Comment:Testing performed by : [facility] 2, [address] [place] [address] RBC 3.06(L) 3.90 - 5.20 M/cumm CERNER BJWCH Comment:Testing performed by : [facility], [facility], [address] [place] [address] MCV 93.8 81.3 - 96.4 fL CERNER BJWCH Comment:Testing performed by : [place] [address], [address] [place] [address] MCH 29.4 27.1 - 33.3 pg CERNER BJWCH Comment:Testing performed by : [place] [address], [address] [place] [address] MCHC 31.4(L) 32.3 - 35.7 g/dL CERNER BJWCH Comment:Testing performed by : [place] [address], [address] [place] [address] RDW CV 15.4(H) 11.1 - 14.9 % CERNER BJWCH Comment:Testing performed by : [place] [address], [address] [place] [address] RDW SD 53.6(H) 35.7 - 48.1 fL CERNER BJWCH Comment:Testing performed by : [address] [place] [address] ANC Prelim 4.52 1.50 - 6.50 K/cumm CERNER BJWCH Comment: Interpretive Data The rapid ANC is a preliminary automated count and may vary from the final ANC (Neut Abs) reported in the WBC differential that follows. Current interpretive data was last revised 2024. Testing performed by: [address] [place] [address] Blood 10/07/2024 4:00 PM CDT 10/07/2024 4:01 PM CDT us Moh'Maurisio Cox MD LAB BLOOD ORDERABLES Gail l Result Performing Organization Address [facility] Co de Phone Number CERNER BJWCH [address] Department [place] [address] * (ABNORMAL) Cancer antigen 19-9 (10/07/2024 4:00 PM CDT) CA 19-9 ag 79.3(H) 0.0 - 35.0 units/mL Comment: Interpretive Data The Sree CA 19-9 assay procedure was used. Results from different manufacturers or methods may not be comparable. Serial testing should be performed using the same method. Testing performed by: [facility], [facility], [place]., [address] Blood 10/07/2024 4:00 PM CDT 10/07/2024 6:08 PM CDT [facility]Maurisio [facility] Kenny BROWN LAB BLOOD ORDERABLES Gail l Result Performing Organization Address [facility] de Phone Number GILNER BJWCH [address] Department [place] [address] * (ABNORMAL) Protime-INR (10/07/2024 4:00 PM CDT) PT 14.2(H) 9.7 - 13.0 sec Comment:Testing performed by : [facility], [address] [facility], [place] [address] INR 1.31(H) 0.90 - 1.20 ENRIQUE TORRES Comment: Interpretive data Oral anticoagulant therapeutic ranges: Venous thromboembolism prophylaxis or treatment: 2.0-3.0 CARDIOLOGY Standard range: 2.0-3.0 High-intensity range: 2.5-3.5 Refer to indication-specific guidelines for appropriate target ranges for prosthetic heart valve replacement. Current interpretive data was last revised on 2019. Testing performed by: [facility], [address] [facility], [place] [address] Blood 10/07/2024 4:00 PM CDT 10/07/2024 4:36 PM CDT us Moh'Maurisio Cox MD LAB BLOOD ORDERABLES Gail garcia Result ENRIQUE [facility] [address] Department [place] [address] * (ABNORMAL) Comprehensive metabolic panel (10/07/2024 4:00 PM CDT) Sodium 141 135 - 145 mmol/L Comment:Testing performed by : [facility], [address], [place] [address] Potassium, pl 4.2 3.3 - 4.9 mmol/L CERNER BJWCH Comment:Testing performed by : [facility], [address], [place] [address] Chloride 105 97 - 110 mmol/L CERMARCELO BJWCH Comment:Testing performed by : [facility], [address], [place] [address] CO2 26 22 - 32 mmol/L CERNER BJWCH Comment:Testing performed by : [facility], [address], [place] [address] Anion gap 11 2 - 15 mmol/L CERNER BJWCH Comment:Testing performed by : [facility], [address], [place] [address] BUN 13 6 - 25 mg/dL CERNER BJWCH Comment:Testing performed by : [facility], [address], [place] [address] Creatinine 0.71 0.60 - 1.10 mg/dL CERNER BJWCH Comment:Testing performed by : [facility], [address], [place] [address] Glucose 106 70 - 199 mg/dL CERNER BJWCH Comment: [...] was last revised 2022. Testing performed by: [facility], [address], [place] [address] Calcium 9.6 8.5 - 10.3 mg/dL CERNER BJWCH Comment:Testing performed by : [facility], [address], [place] [address] Bilirubin, total 1.8(H) 0.1 - 1.2 mg/dL CERNER BJWCH Comment:Testing performed by : [facility], [address], [place] [address] Protein, pl 6.2(L) 6.5 - 8.5 g/dL CERNER BJWCH Comment:Testing performed by : [facility], [address], [place] [address] Albumin 3.6 3.5 - 5.0 g/dL CERNER BJWCH Comment:Testing performed by : [facility], [address], [place] [address] Alk phos 794(H) 40 - 130 Units/L CERNER BJWCH Comment:Testing performed by : [facility], [address], [place] [address] ALT 107(H) 7 - 45 Units/L CERNER BJWCH Comment:Testing performed by : [facility], [address], [place] [address] AST 240(H) 10 - 45 Units/L CERNER BJWCH Comment:Testing performed by : [facility], [address], [place] [address] Blood 10/07/2024 4:00 PM CDT 10/07/2024 4:36 PM CDT us Moh'Maurisio Cox MD LAB BLOOD ORDERABLES Gail l Result ENRIQUE [facility]JW[facility] [address] [address] [facility]. Department [place] [address] * POCT lipid panel (09/27/2024 1:34 PM [...] Biopsy) 09/19/2024 1:07 PM CDT Narrative PATHOLOGY [facility] - 09/20/2024 2:24 PM CDT EPIC results best viewed via link to PDF [facility] [place] [address] Note to Patients: This report may contain [...] Gender: F : 1950 (Age: 73) Address: [address] [place] [address] [facility] #: [id number] Taken:09/19/2024 Received:09/19/2024 Reported: 09/20/2024 Patient Type: [facility] ED Service: Emergency Location: [facility] ED Physician(s): Puma Wagner M.D. Natasha Leah [...] cm in aggregate). Labeled A1. Jar 0. [facility]/09/19/2024 15:19 PA(s): Evelyn Cunningham By this signature, I attest that the above diagnosis is based upon my personal examination of the slides(and/or other material). Addenda/Procedures The performance characteristics of some immunohistochemical stains, fluorescence in-situ hybridization tests and immunophenotyping by flow cytometry cited in this report (if any) were determined by the Surgical Pathology and Flow Cytometry Departments at [facility] as part of an ongoing quality improvement consultant program and in compliance with federally mandated [...] Surgical Pathology and Flow Cytometry Departments of [facility]. It has not been cleared or approved by the U. S. Food and Drug Administration. IMAGES AND SCANNED DOCUMENTS, IF INCLUDED, ONLY VIEWABLE IN PDF VERSION OF REPORT us David Brewer MD LAB PATHOLOGY ORDERABLES Fi nal Result PATHOLOGY [facility] 3rd Floor [place], [place] [phone] * Upper EUS (09/19/2024 12:32 PM CDT) Anatomical Region Laterality Modality Other Narrative Procedure Note David Brewer MD - 09/19/2024 12:32 PM CDT GI ENDOSCOPY [facility] Patient Name: Susannah Goncalves Procedure Date: 09/19/2024 12:32 PM Date of : 1950 Admit Type: Outpatient Age: 73 Gender: Female Attending MD: David Brewer M.D. Room: [facility] ENDOSCOPY ROOM 1 Note Status: Finalized [...] consent was obtained.The Olympuscurved linear array therapeutic [id number] was introduced through the mouth, and advanced tothe second part of duodenum The GIF [id number] endoscope was introduced through the mouth, and [...] Three passes were madewith the 22 gauge SkuRuncore needle using a transgastric approach. A stylet [...] following this procedure please call my officeat [phone] ([phone]) to speak to my nurses. After hours and evenings please call [phone] speak to the GI fellow stone sawyer. Please tell themthat Dr. Brewer did your procedure and that your were instructed to have the fellow call me or thephysician covering for me to discuss the management of your condition. If you have an urgent problem, please goto the nearest emergency room and have the ER doctorcall my office during the day or [facility] transfer ([phone]) center after hours and weekends to arrange admission or transfer to our facility. - Call my nurse Arlyn Segovia RN in the GI office at [phone] for your final pathology results in 7 [...] using the same method. Testing performed by: [facility], [facility], [place]., [address] Blood 09/17/2024 10:3 2 AM CDT 09/17/2024 7:30 PM CDT us Ana RODRIGUES LAB BLOOD ORDERABLES Gail l Result Performing Organization Address [facility] de Phone Number ENRIQUE BJWCH [address] [address] Department [place] [address] * (ABNORMAL) CEA (09/17/2024 10:32 AM CDT) CEA 5.2(H) <=5.0 ng/mL Comment: Interpretive Data Reference Range: Non-Smokers: < or = 3.0 ng/mL Some Smokers may have elevated levels, usually < 5.0 ng/mL The Sree CEA assay procedure was used. Results from different manufacturers or methods may not be comparable. Serial testing should be performed using the same method. Testing performed by: [facility], [facility] [facility], [place]., [address] Blood 09/17/2024 10:3 2 AM CDT 09/17/2024 7:30 PM CDT [facility] Khushbu RODRIGUES LAB BLOOD ORDERABLES Gail l Result Performing Organization Address [facility] de Phone Number ENRIQUE BJWCH [address] [address] [place] [address] * CT Chest W and Abdomen Pelvis [...] signed by: Segun Bailey M.D. Ana RODRIGUES [facility] CT PROCEDURES Final R esult * FL ERCP Biliary Duct (09/06/2024 1:42 PM CDT) Narrative [facility] - 09/06/2024 1:53 PM CDT The images from this study are not interpreted by Radiology. Please refer to the physician's procedure / OR operative note. David Brewer MD G FLUOROSCOPY PROCEDURES Final Result [facility] * Surgical pathology (09/06/2024 1:25 PM CDT) Lymph node, needle biopsy 09/06/2024 1:25 PM CDT 09/10/2024 11:26 AM CDT Narrative 09/11/2024 3:14 PM CDT [address] [address] Tele: Roxana Gordon MD - Physician Scribe Note to Patients: This report may contain [...] PATHOLOGY REPORT Patient Name: SUSANNAH GONCALVES Address: [address] [place] [address] Gender: F : 1950 (Age: 73) Service: Gastro Location: [facility], Hospital #: [id number] Patient Type: [facility] Taken: 09/06/2024 Received 09/10/2024 Reported: 09/11/2024 Physician(s): Puma Wagner MD Jason E. Barnett, M.D. DIAGNOSIS: Pancreas, head, fine needle biopsies: - Focal atypical glands (see description) [facility] [place] 15:14 Examining Pathologist: Alek [...] filtered and submitted entirely in cassette A1. [facility] MICROSCOPIC DESCRIPTION: Microscopic examination shows multiple fragments of pancreatic parenchyma. There are focal slightly irregular glands with minimal nuclear atypia. An immunostain for p53 shows wild type staining in these glands. There is no definitive malignancy identified. Clinical correlation and follow-up is needed. Clerical Data Follows A; [address], [address], [address] <CR>, [address] REPORT IMAGES AND/OR SCANNED DOCUMENTS ONLY VIEWABLE IN PDF FORMAT The immunohistochemical test(s) cited in this report, if any, was developed and its performance characteristics determined by [facility] Pathology Department. It has not been cleared or approved by the U.S. Food and Drug Administration. The FDA has determined that such clearance or approval is not necessary. This test is used for clinical purposes. It should not be regarded as investigational or for research. [facility] Laboratory is certified under the Clinical [...] part or completely in the following laboratories: [facility], [address] [place] [address], [address] [place] [address]. us David Brewer MD LAB PATHOLOGY ORDERABLES Fi nal Result * ERCP (09/06/2024 1:03 PM CDT) Anatomical Region Laterality Modality Other Narrative Procedure Note David Brewer MD - 09/06/2024 1:03 PM CDT ENDOSCOPY LAB Patient Name: Susannah Goncalves Procedure Date: 09/06/2024 1:03 PM Admit Type: Outpatient Room: [facility] Date of : 1950 Instrument Name: [...] The patienttolerated the procedure well. Findings: The caramel coloring operator film was normal. The esophagus was successfully [...] following this procedure please call my officeat [phone] ([phone]) to speak to my nurses. After hours and evenings please call [phone] speak to the GI fellow stone sawyer. Please tell themthat Dr. Brewer did your procedure and that your were instructed to have the fellow call me or thephysician covering for me to discuss the management of your condition. If you have an urgent problem, please goto the nearest emergency room and have the ER doctorcall my office during the day or [facility] transfer ([phone]) center after hours and weekends to arrange [...] 09/06/2024 1:02 PM Admit Type: Outpatient Room: [facility] Date of : 1950 Instrument Name: [id number],[facility]-H592 Gender: Female Note Status: Finalized Procedure: Upper [...] following this procedure please call my officeat [phone] ([phone]) to speak to my nurses. After hours and evenings please call [phone] speak to the GI fellow stone sawyer. Please tell themthat Dr. Brewer did your procedure and that your were instructed to have the fellow call me or thephysician covering for me to discuss the management of your condition. If you have an urgent problem, please goto the nearest emergency room and have the ER doctorcall my office during the day or [facility] transfer ([phone]) center after hours and weekends to arrange admission or transfer to our facility. - Call my nurse Arlyn Segovia RN in the GI office at [phone] for your final results in 7 days. Attending Participation: I personally performed the entire procedure. Electronically Signed By: David Brewer M.D. David Brewer M.D. 09/06/2024 1:56:06 PM This document was signed electronically. Number of Addenda: 0 Note Initiated On: 09/06/2024 1:02 PM Scope In: Scope Out: David Brewer MD ENDOSCOPY PROCEDURES Final Result * (ABNORMAL) Hepatic function panel (09/06/2024 10:50 AM CDT) Bilirubin, total 5.9(H) 0.1 - 1.2 mg/dL Bilirubin, direct 4.2(H) 0.1 - 0.3 mg/dL [facility] Protein, pl 5.5(L) 6.5 - 8.5 g/dL [facility] Albumin 3.0(L) 3.5 - 5.0 g/dL [facility] Alk phos 1,250(H) 40 - 130 Units/L [facility] ALT 143(H) 7 - 45 Units/L [facility] AST 190(H) 10 - 45 Units/L CERNER [facility] Blood 09/06/2024 10:5 0 AM CDT 09/06/2024 10:50 AM CDT Narrative [facility] - 09/06/2024 11:32 AM CDT STAT pre procedure lab same day us Geoffrey Shaver MD LAB BLOOD ORDERABLES Final Result [facility] [address] Department [place] [address] * CT Body Outside Consult (09/05/2024 1:04 [...] images may or may not represent the chickaloon source data set and thus may contain changes that may lower the accuracy of this second-opinion interpretation. Electronically signed by: Mickey Martinez M.D. Narrative 09/05/2024 2:33 PM CDT EXAMINATION: RADIOLOGY CONSULTATION ON OUTSIDE IMAGING STUDY STUDY INITIALLY PERFORMED: 08/28/2024 at [facility]. TYPE OF STUDY: Multiple CT images [...] IMAGING STUDY STUDY INITIALLY PERFORMED: 08/28/2024 at [facility]. TYPE OF STUDY: Multiple CT images [...] images may or may not represent the chickaloon source data set and thus may contain changes that may lower the accuracy of this second-opinion interpretation. Electronically signed by: Mickey Martinez M.D. David Brewer MD IMG CT PROCEDURES Final Res ult from Last [address] MEDICARE [employer] [facility] MED[facility] Address: [address] [place] [phone] [facility] Address: [address] [address] [place] [address] [facility] MEDICARE [facility] MED[facility] Address: [facility] [address] [place] [address] Advance Directives For more information, please contact: [phone] * Full Code (Latest Code Status on [...] 2:00 AM 11/08/2022 7:29 PM Care Teams Showroom Sales Assistant Relationship Specialty Start Date End Date Leonidas Rubio MD [address] [place] [address] PCP - General Family Medicine 09/05/24 Arianna Persaud PA [address] [place] [address] Physician Crowd Controller 08/29/24 David Brewer MD [address] [place] [address] Referring Physician Gastroenterology 09/23/24 Haven Cox MD [address] [place] [address] Consulting Physician Medical Oncology 09/23/24 Daisy Mercado MD [address] [facility] [address] [place] [address] Consulting Physician General Surgery 09/23/24
--- OUTSIDE RECORDS SUMMARY | 2024-10-14 17:39 | XMS_ITS | Encounter Summary ---
Author Organization [facility] Address [address] [place] [address] Phone Care Team Providers Care Hospitality Intern Name Role Phone Arianna Persaud Unavailable [phone]- [phone] Leonidas Rubio MD Primary Care Provider David Brewer MD Unavailable [phone] Haven Cox MD Unavailable [phone] Daisy Mercado MD Unavailable [phone] Encounter Details Date Type Department Care Team (Late st Contact Info) Description 10/14/2024 Orders Only [facility] Oncology [facility] [address] [place] [address] Lissette Ortiz, RN Pancreatic adenocarcinoma (HCC) (Primary Dx) Social History Tobacco Use Types [...] materials from doctor or pharmacy Never 04/11/2023 [facility] Utilities Answer Date Recorded In [...] often do you attend chur ch or jew services? Never 02/27/2023 Do you belong to [...] on file Legal Sex Female 6:30 PM LINOLEUM PRINTER Gender Identity Not on file Sexual Orientation Not on file documented as of this encounter Plan of Treatment Not on file documented as of this encounter Visit Diagnoses Diagnosis Pancreatic adenocarcinoma (HCC)- Primary Malignant neoplasm of pancreas, part unspecified documented in this encounter Orders Appointment Requests Count Last Ordered Date Fi rst Ordered Date ONCBCN LAB APPOINTMENT 1 10/14/2024 ONCBCN RETURN CHEMO 2HRS 1 10/14/2024 documented in this encounter Care Teams Hospitality Intern Relationship Specialty Start Date End Date Leonidas Rubio MD [address] [place] [address] PCP - General Family Medicine 09/05/24 Arianna Persaud PA [address] [place] [address] Physician Replanting Machine Crew 08/29/24 David Brewer MD [address] [place] [address] Referring Physician Gastroenterology 09/23/24 Haven Cox MD [address] [place] [address] Consulting Physician Medical Oncology 09/23/24 Daisy Mercado MD [address] [facility] [address]19 [place] [address] Consulting Physician General Surgery 09/23/24 documented as of this encounter
--- OUTSIDE RECORDS SUMMARY | 2024-10-14 17:39 | XMS_ITS | Patient Health Record ---
Author Organization [facility] [employer] [facility] Address [address] [place] [address] Care Team Providers Care Billing Control Clerk Name Role Phone Lucho BROWN, Linette Primary Care Provider Francie Nidhi Alejandre Unavailable [phone] Maegan POPE, Sussy Unavailable Lissette Colby Unavailable [phone] Johnathon Dick Unavailable [phone] Allergies No Known Allergies Results Component Value Reference Range Notes Cuff-Protect [facility] Profil e (Not yet reviewed by provider) Interpretation: Performing Lab:[facility] (CLIA#: [id number]), [address] [place] [address], Director - Adelina Jensen Notes/Report: These tests were developed and their performance characteristics determined by [facility]. They have not been cleared or approved by the [place] Food and Drug Administration. Certifying Fine Unhairer: Dustin Quinn (Remote [id number]) Analyzed at [facility] (CLIA#: [id number]) - [address] [place] [address] - Test Consultant: Adelina Ontiveros Buprenorphine Ur CMP 46 >=1 ng/mL COMPLIA NT: Test result is consistent and expected with prescribed drug. Buspirone Ur CMP <25 >=25 ng/mL NON-COMPLIA NT: Test result indicates patient may not be taking drug prescribed. Cital+Escital Ur CMP 7140 >=50 ng/mL COMPLIA NT: Test result is consistent and expected with prescribed drug. Pregabalin Ur CMP <5 >=5 mcg/mL NON-COMPLI ANT: Test result indicates patient may not be taking drug prescribed. Tizanidine Ur CMP <5 >=5 ng/mL PRN - NOT PRESENT: Test result is consistent and expected with prescribed drug. Tramadol Ur CMP >16658 >=100 ng/mL COMPLIANT: T est result is consistent and expected with prescribed drug. BioDetect EXPECTED Test result is consistent with routinely analyzed human urine. 6MAM Ur Ql Cfm <10 >=10 ng/mL NONE DETECTED Amphetamines Ur Ql Cfm <100 >=100 ng/mL NONE DETECTED Benzodiaz Ur Ql Cfm <25 >=25 ng/mL NONE DET ECTED Buprenorphine Ur Ql Cfm >=1 >=1 ng/mL POSI TIVE Norbuprenorphine Ur Cfm-mCnc 18 >=2.5 ng/mL POSITIVE Buprenorphine Ur Cfm-mCnc 28 >=1 ng/mL PO SITIVE BZE Ur Ql [...] >=100 ng/mL POSITIVE N-Desmethyl Tram Ur Cfm-mCnc >02823 >=100 ng/mL POSITIVE Creat Ur-mCnc 19.5 20 - 370 mg/dL DILUTE Creatinine and pH are performed for specimen validity and not diagnostic purposes. pH Ur 5.64 4.5 - 9.0 NORMAL Creatinine and pH are performed for specimen validity and not diagnostic purposes. Alcohol Metabolites Ur Ql Cfm <200 >=200 ng/mL NONE DETECTED Ethyl sulfate Ur Cfm-mCnc <200 >=200 ng/mL NO NE DETECTED Busprione Ur Ql Cfm <25 >=25 ng/mL NONE DET ECTED Tizanidine Ur Ql Cfm <25 >=25 ng/mL NONE DE TECTED SSRI Profile Ur Ql Cfm >=50 >=50 ng/mL POSIT NILSA Citalopram Ur Cfm-mCnc 5107 >=50 ng/mL POSIT NILSA Norcitalopram Ur-mCnc 2033 >=50 ng/mL POSITI VE Synthetic Stimulants Ur Ql Cfm <1 >=1 ng/mL NONE DETECTED OFFICE MACHINE INSPECTOR Not Otherwise Specified Ur Ql Cfm <1 >=1 ng/mL NONE DETECTED Synthetic Cannabinoids Ur Ql Cfm <1 >=1 ng/m L NONE DETECTED Hallucinogens/Dissociatives Ur Ql Cfm <1 >=1 ng/mL NONE DETECTED Quality Assurance Group Leader Benzodiazepines Ur Ql Cfm <1 >=1 ng/mL NONE DETECTED Quality Assurance Group Leader Opioids Ur Ql Cfm <1 >=1 ng/mL N ONE DETECTED THC Ur Ql Scn <20 >=20 ng/mL NONE DETECTED [facility] Profil e (Not yet reviewed by provider) Interpretation: Performing Lab:[facility] (CLIA#: [id number]), [address] [place] [address], Director - Adelina Jensen Notes/Report: These tests were developed and their performance characteristics determined by [facility]. They have not been cleared or approved by the [place] Food and Drug Administration. Certifying Fine Unhairer: Shalom Nicholson (Remote [id number]) Analyzed at [facility] (CLIA#: [id number]) - [address] [place] [address] - Test Consultant: Adelina Ontiveros Cital+Escital Ur CMP >20998 >=50 ng/mL COMPLIA NT: Test result is [...] expected with prescribed drug. Tramadol Ur CMP >78765 >=100 ng/mL COMPLIANT: T est result is consistent and expected with prescribed drug. Pregabalin Ur CMP <5 >=5 mcg/mL NON-COMPLI ANT: Test result indicates patient may not be taking drug prescribed. Ethyl Sulfate Ur CMP 85918 >=200 ng/mL PRESENT : Test result is consistent with alcohol exposure within 72 hours of specimen collection. For additional information, please consult the Clinical Team at or email [email or web address]. BioDetect EXPECTED Test result is consistent with [...] >=100 ng/mL POSI TIVE Tramadol Ur Cfm-mCnc >09679 >=100 ng/mL POSITIV E N-Desmethyl Tram Ur Cfm-mCnc >38516 >=100 ng/mL POSITIVE Creat Ur-mCnc 275.9 20 - 370 mg/dL NORMAL Creatinine and pH are performed for specimen validity and not diagnostic purposes. pH Ur 6.04 4.5 - 9.0 NORMAL Creatinine and pH are performed for specimen validity and not diagnostic purposes. Alcohol Metabolites Ur Ql Cfm >=200 >=200 ng/mL POSITIVE Ethyl sulfate Ur Cfm-mCnc 42222 >=200 ng/mL PO SITIVE Busprione Ur Ql Cfm <25 >=25 ng/mL NONE DET ECTED SSRI Profile Ur Ql Cfm >=50 >=50 ng/mL POSIT NILSA Citalopram Ur Cfm-mCnc >88029 >=50 ng/mL POSIT NILSA Norcitalopram Ur-mCnc >05362 >=50 ng/mL POSITI VE SN Reuptake Inhibitors Ur Ql <5 >=5 ng/mL NONE DETECTED Synthetic Stimulants Ur Ql Cfm <1 >=1 ng/mL NONE DETECTED OFFICE MACHINE INSPECTOR Not Otherwise Specified Ur Ql Cfm <1 >=1 ng/mL NONE DETECTED Synthetic Cannabinoids Ur Ql Cfm <1 >=1 ng/m L NONE DETECTED Hallucinogens/Dissociatives Ur Ql Cfm <1 >=1 ng/mL NONE DETECTED Quality Assurance Group Leader Benzodiazepines Ur Ql Cfm <1 >=1 ng/mL NONE DETECTED Quality Assurance Group Leader Opioids Ur Ql Cfm <1 >=1 ng/mL N ONE DETECTED THC Ur Ql Scn <20 >=20 ng/mL NONE DETECTED Edai Profil e Reviewed date:03/04/2024 07:46:44 AM Interpretation: Performing Lab:[facility] (CLIA#: [id number]), [address] [place] [address], Director - Adelina Jensen Notes/Report: Certifying Fine Unhairer: Nicolas Carlson (Remote [id number]) These tests were developed and their performance characteristics determined by [facility]. They have not been cleared or approved by the US Food and Drug Administration. Analyzed at [facility] (CLIA#: [id number]) - [address] [place] [address] - Test Consultant: Adelina Ontiveros Cital+Escital Ur CMP >73280 >=50 ng/mL COMPLIA NT: Test result is [...] form, was detected. Ethyl Sulfate Ur CMP 06466 >=200 ng/mL PRESENT : Test result is consistent with alcohol exposure within 72 hours of specimen collection. For additional information, please consult the Clinical Team at or email [email or web address] BioDetect EXPECTED Test result is consistent with [...] >=200 ng/mL POSITIVE Ethyl sulfate Ur Cfm-mCnc 92205 >=200 ng/mL PO SITIVE Busprione Ur Ql Cfm <25 >=25 ng/mL NONE DET ECTED Tizanidine Ur Ql Cfm >=25 >=25 ng/mL POSITIV E Tizanidine Ur Cfm-mCnc 157 >=25 ng/mL POSIT NILSA Dehydrotizanidine Ur Cfm-mCnc 17 >=5 ng/mL POSITIVE SSRI Profile Ur Ql Cfm >=50 >=50 ng/mL POSIT NILSA Norcitalopram Ur-mCnc >94005 >=50 ng/mL POSITI VE Synthetic Stimulants Ur Ql Cfm <1 >=1 ng/mL NONE DETECTED OFFICE MACHINE INSPECTOR Not Otherwise Specified Ur Ql Cfm <1 >=1 ng/mL NONE DETECTED Synthetic Cannabinoids Ur Ql Cfm <1 >=1 ng/m L NONE DETECTED Hallucinogens/Dissociatives Ur Ql Cfm <1 >=1 ng/mL NONE DETECTED Quality Assurance Group Leader Benzodiazepines Ur Ql Cfm <1 >=1 ng/mL NONE DETECTED Quality Assurance Group Leader Opioids Ur Ql Cfm <1 >=1 ng/mL N ONE DETECTED THC Ur Ql Scn <20 >=20 ng/mL NONE DETECTED Reason For Referral No Information Medications Medication SIG (Take, Route, Frequency, Duration) Notes Start Date End Date Status Xarelto 20 MG Oral; Duration: 90 Days Active Propafenone HCl ER 225 MG Oral; Duration: 30 Days Active Belbuca 750 MCG 1 film Bucally every 12 hrs; Duration: 30 days Dose increase 09/12/2024 Active traMADol HCl 50 MG Take 1 tablet Oral three times per day; Duration: 30 days 09/19/2024 Active Lisinopril 40 MG Oral; Duration: 90 Days Active tiZANidine HCl 2 MG TAKE 1 TABLET BY MOUTH THREE TIMES DAILY; Duration: 30 Active NIFEdipine ER 30 MG Oral; Duration: 90 Days Active Citalopram Hydrobromide 40 MG TAKE 1 TABLET BY MOUTH EVERY DAY Oral; Duration: 90 Days Active Citalopram Hydrobromide 40 MG Oral; Duration: 90 Days Active busPIRone HCl 10 MG Oral; Duration: 90 Days Active Carvedilol 6.25 MG Oral; Duration: 90 Days Active Lyrica 25 MG 1 capsule Orally Once a day 01/11/2024 Active Methadone HCl 10 MG 1 tablet Orally every 6 hours; Duration: 30 days switching meds; patient diagnosed with pancreatic cancer 09/26/2024 Active Naloxone HCl 4 MG/0.1ML as directed Nasally in an opioid emergency; Duration: 30 days 09/26/2024 Active Morphine Sulfate ER 15 MG 1 tablet Orally twice a day; Duration: 30 days pt was diagnosed recently with pancreatic cancer. was prescribed methadone, reviewing her EGK we switching to this due to long intervals.. Pt is bringing the methadone RX to out office to dispose of. 09/27/2024 Active oxyCODONE HCl 10 MG 1 tablet as needed Orally twice a day; Duration: 30 days 10/03/2024 Active Problems Problem Type SNOMED Code ICD Code Onset Dates Problem Status W/U Status Risk Notes Problem Cervical spondylosis (125180683) Cervical spondylosis (M47.812) Active confirmed Problem Hypercholesterolemia (29027942) Hypercholesterolemia (E78.00) Active confirmed Problem Long-term current us e of drug therapy (958827775) meterman use of drug (Z79.899) Active confirmed Problem Neck pain (05541331) Cervical sp ine pain (M54.2) Active confirmed Problem Hypertension (44310717) Hypertension (I10) 2009 Active confirmed Problem Low back pain (361779930) Low back pain (M54.50) Active confirmed Problem Atrial fibrillation (21522179) Atrial fibrillation (I48.91) Active confirmed Problem Long-term current us e of anticoagulant (775006849) Anticoagulated (Z79.01) Active confirmed Vital Signs Heart Rate 61 /min 08/20/2024 Height-cm 160.02 cm 09/26/2024 Blood pressure diastolic 89 mm Hg 08/20/2024 Weight-kg 63.05 kg 09/26/2024 Height 5ft 3in in 09/26/2024 Blood pressure systolic 142 mm Hg 08/20/2024 Weight 139 lbs 09/26/2024 BMI 24.62 kg/m2 09/26/2024 Encounters Encounter Location Date Provider Diagnosis [facility] [employer] [facility] [address] [place] [address] [address] [place] [address] 11/21/2023 Lissette Colby Cervical spine pain M54.2 ; DDD (degenerative disc disease), lumbar M51.36 and [facility] use of drug Z79.899 Telehealth [facility] [facility] [address] [place] [address] [address] [place] [address] 12/26/2023 Lissette Colby Cervical spine pain M54.2 ; DDD (degenerative disc disease), lumbar M51.36 ; Cervical spondylosis M47.812 and [facility] use of drug Z79.899 [facility] [employer] [facility] [address] [place] [address] 01/11/2024 Lissette Colby Cervical spine pain M54.2 ; Cervical spondylosis M47.812 ; DDD (degenerative disc disease), lumbar M51.36 ; Low back pain M54.50 ; Left knee pain M25.562 and [facility] use of drug Z79.899 [facility] [employer] [facility] [address] [place] [address] [address] [place] [address] 02/26/2024 Lissettetelma Colby Cervical spondylosis M47.812 ; Cervical spine pain M54.2 ; Low back pain M54.50 ; On intermediate drug therapy Z79.899 and Screening for substance abuse Z13.89 Telehealth [facility] [employer] [facility] [address] [place] [address] [address] [place] [address] 03/25/2024 Sussy Issa Cervical spondylosis M47.812 ; Cervical spine pain M54.2 ; Low back pain M54.50 and [facility] use of drug Z79.899 [facility] [employer] [facility] [address] [place] [address] [address] [place] [address] 04/25/2024 Lissette Colby Cervical spondylosis M47.812 ; Cervical spine pain M54.2 ; Low back pain M54.50 and [facility] use of drug Z79.899 Telehealth [facility] [employer] [facility] [address] [place] [address] [address] [place] [address] 05/09/2024 Lissette Colby Cervical spine pain M54.2 ; Cervical spondylosis M47.812 and On intermediate drug therapy Z79.899 [facility] [employer] [facility] [address] [place] [address] [address] [place] [address] 06/18/2024 Lissette Colby Cervical spondylosis M47.812 ; Cervical spine pain M54.2 and [facility] use of drug Z79.899 Telehealth [facility] [employer] [facility] [address] [place] [address] [address] [place] [address] 07/16/2024 Lissette Colby Cervical spine pain M54.2 ; Low back pain M54.50 ; Cervical spondylosis M47.812 and meterman use of drug Z79.899 [facility] [employer] [facility] [address] [place] [address] 08/20/2024 Lissette Colby Cervical spondylosis M47.812 ; Cervical spine pain M54.2 ; Low back pain M54.50 and meterman use of drug Z79.899 Telehealth [facility] [facility] [address] [facility] [address] [place] [address] 09/12/2024 Lissette Colby Cervical spine pain M54.2 ; Cervical spondylosis M47.812 ; Hypertension I10 ; Pancreatic neoplasm D49.0 and [facility] use of drug Z79.899 [facility] [employer] [facility] [address] [place] [address] 09/26/2024 Johnatohn Mayelin Pancreatic carcinoma C25.9 ; Cervical spondylosis M47.812 ; Cervical spine pain M54.2 ; Low back pain M54.50 ; [facility] use of drug Z79.899 ; Hypertension I10 ; meterman use of opioid Z79.891 ; Hypercholesterolemia E78.00 ; Anticoagulated Z79.01 and Atrial fibrillation I48.91 [facility] [facility] [facility] [address] [place] [address] 11/21/2023 Nidhi Dick [facility] [employer] [facility] [address] [place] [address] 11/27/2023 Nidhi Dick [facility] [employer] [facility] [address] [place] [address] 12/26/2023 Nidhi Dick [facility] [employer] [facility] [address] [place] [address] 01/11/2024 Nidhi Dick [facility] [facility] [address] [place] [address] 01/25/2024 Johnathon Dick [facility] [employer] [facility] [address] [place] [address] 02/26/2024 Nidhi Dick [facility] [employer] [facility] [address] [place] [address] 03/25/2024 Nidhi Mayelin [facility] [facility] [facility] [address] [place] [address] 04/25/2024 Nidhi Mayelin [facility] [facility] [address] [place] [address] 05/09/2024 Nidhi Mayelin [facility] [address] [place] [address] 06/18/2024 Nidhi Mayelin [facility] [facility] [address] [place] [address] 07/16/2024 Nidhi Mayelin [facility] [facility] [address] [place] [address] 08/20/2024 Nidhi Mayelin [facility] [facility] [address] [place] [address] 09/12/2024 Johnathon Mayelin [facility] [facility] [address] [place] [address] 09/19/2024 Nidhi Mayelin [facility] [facility] [address] [place] [address] 09/26/2024 Johnathon Mayelin [facility] [facility] [address] [place] [address] 09/27/2024 Johnathon Mayelin [facility] [facility] [address] [place] [address] 10/03/2024 Johnathon Mayelin Assessments Encounter Date Diagnosis (ICD Code) Assessment Notes Treatment Notes Treatment Clinical Notes Section Notes 11/21/2023 DDD (degenerative di sc disease), lumbar (ICD-10 - M51.36) 11/21/2023 Cervical spine pain (ICD-10 - M54.2) Refill for controlled substance sent to supervising physician to be filledContinue home stretching and at home exercise program as toleratedFollow-u p in one month for med check, sooner if needed 12/26/2023 Cervical spine pain (ICD-10 - M54.2) Refill for controlled substance sent to supervising physician to be filledContinue home stretching and at home exercise program as toleratedFollow-u p in one month for med check, sooner if needed 01/11/2024 Cervical spondylosis (ICD-10 - M47.812) 12/26/2023 DDD (degenerative di sc disease), lumbar (ICD-10 - M51.36) 01/11/2024 Cervical [...] sooner if needed 07/16/2024 Low back pain (ICD-1 0 - M54.50) 08/20/2024 Cervical spondylosis (ICD-10 - M47.812) Refill for controlled substance sent to supervising physician to be filled [facility] Continue home stretching and at home exercise program as tolerated Follow-up in one month for med check, sooner if needed 06/18/2024 Cervical spine pain (ICD-10 - M54.2) 09/12/2024 Cervical spondylosis (ICD-10 - M47.812) 09/12/2024 Cervical spine pain (ICD-10 - M54.2) Refill for controlled substance sent to supervising physician to be filled. Increase in Belbuca per supervising physician Patient to update on appt tomorrow with oncology Continue home stretching and at home exercise program as tolerated Follow-up in one month for med check, sooner if needed 09/26/2024 Cervical spondylosis (ICD-10 - M47.812) 09/26/2024 Cervical spine pain (ICD-10 - M54.2) 09/26/2024 Pancreatic carcinoma (ICD-10 - C25.9) 09/26/2024 Low back pain (ICD-1 0 - M54.50) 09/12/2024 Hypertension (ICD-10 - I10) 07/16/2024 Cervical spondylosis (ICD-10 - M47.812) 08/20/2024 Cervical spine pain (ICD-10 - M54.2) 06/18/2024 meterman use of kike g (ICD-10 - Z79.899) 05/09/2024 On intermediate drug therapy (ICD-10 - Z79.899) 04/25/2024 Cervical spine pain (ICD-10 - M54.2) 03/25/2024 Low back pain (ICD-1 0 - M54.50) 02/26/2024 Low back pain (ICD-1 0 - M54.50) 01/11/2024 DDD (degenerative di sc disease), lumbar (ICD-10 - M51.36) 12/26/2023 Cervical spondylosis (ICD-10 - M47.812) 11/21/2023 meterman use of kike g (ICD-10 - Z79.899) 02/26/2024 On termite control service representative drug therapy (ICD-10 - Z79.899) 12/26/2023 [facility] use of kike g (ICD-10 - Z79.899) 03/25/2024 meterman use of kike g (ICD-10 - Z79.899) 04/25/2024 Low back pain (ICD-1 0 - M54.50) 08/20/2024 Low back pain (ICD-1 0 - M54.50) 07/16/2024 meterman use of kike g (ICD-10 - Z79.899) 09/12/2024 Pancreatic neoplasm (ICD-10 - D49.0) 01/11/2024 Low back pain (ICD-1 0 - M54.50) 09/26/2024 meterman use of kike g (ICD-10 - Z79.899) 09/26/2024 Hypertension (ICD-10 - I10) 09/12/2024 [facility] use of kike g (ICD-10 - Z79.899) 04/25/2024 meterman use of kike g (ICD-10 - Z79.899) 08/20/2024 meterman use of kike g (ICD-10 - Z79.899) 01/11/2024 Left knee pain (ICD- 10 - M25.562) 02/26/2024 Screening for substa nce abuse (ICD-10 - Z13.89) 01/11/2024 [facility] use of kike g (ICD-10 - Z79.899) 09/26/2024 [facility] use of opi oid (ICD-10 - Z79.891) 09/26/2024 Hypercholesterolemia (ICD-10 - E78.00) 09/26/2024 Anticoagulated (ICD- 10 - Z79.01) 09/26/2024 Atrial fibrillation (ICD-10 - I48.91) 01/11/2024 Other Body Mass Index : Care Instructions material was published 02/26/2024 Other Body Mass Index : Care Instructions material was published, High Blood Pressure: Care Instructions material was published 04/25/2024 Other Body Mass Index : Care Instructions material was published, High Blood Pressure: Care Instructions material was published 06/18/2024 Other High Blood Pressure: Care Instructions material was published 08/20/2024 Other High Blood Pressure: Care Instructions material was published 09/26/2024 Other Patient's medic al history is also positive for hypertension, hyperlipidemia and atrial fibrillation. Patient has had bilateral total knee replacements bilateral total hip replacements. Plan Of Treatment Pending Test Test Name Order Date EtS (Alcohol Metabolite) - Urine 024 EtS (Alcohol Metabolite) - Urine 025 EtS (Alcohol Metabolite) - Urine 025 QMP Plus D/L - Urine 06/18/2024 QMP Plus D/L - Urine 02/26/2024 QMP Plus D/L - Urine 09/26/2024 Synthetic Stimulants 06/18/2024 Synthetic Stimulants 02/26/2024 Synthetic Stimulants 09/26/2024 Quality Assurance Group Leader Benzodiazepines 06/18/2024 Quality Assurance Group Leader Benzodiazepines 09/26/2024 Quality Assurance Group Leader Benzodiazepines 02/26/2024 Synthetic Cannabinoids 02/26/2024 Synthetic Cannabinoids 09/26/2024 Synthetic Cannabinoids 06/18/2024 Quality Assurance Group Leader Opioids 09/26/2024 Quality Assurance Group Leader Opioids 02/26/2024 Quality Assurance Group Leader Opioids 06/18/2024 Hallucinogens/Dissociatives 02/26/2024 Hallucinogens/Dissociatives 06/18/2024 Hallucinogens/Dissociatives 09/26/2024 OFFICE MACHINE INSPECTOR Other 09/26/2024 OFFICE MACHINE INSPECTOR Other 06/18/2024 OFFICE MACHINE INSPECTOR Other 02/26/2024 Marijuana - Urine 02/26/2024 Marijuana - Urine 06/18/2024 Marijuana - Urine 09/26/2024 [facility] Medication Compliance - Urine 0 09/26/2024 [facility] Medication Compliance - Urine 0 06/18/2024 [facility] Medication Compliance - Urine 1 04/27/2023 [facility] Required Information 02/26/2024 [facility] Required Information 06/18/2024 [facility] Required Information 09/26/2024 [facility] Healthcare Profile 09/26/2024 [facility] Healthcare Profile 06/18/2024 Insurance Providers Payer Name Payer Address Payer Phone Subscriber Number Group Number Insured Name Patient Relationship to Insured Coverage Start Date Coverage End Date [facility] [address] [address] [place] [address] [id number] Susannah Camargo Self - patient is the insured Medical (General) History Medical History History ICD Code hyperlipidemia hypertension Atrial fibrillation Surgical History Surgery Date(Month/Year) B TKR B THR oophorectomy gastric sleeve 03/2020 Hospitalization History Reason Date(Month/Year) no hospitalizations since prior visit
--- OUTSIDE RECORDS SUMMARY | 2024-10-14 17:39 | XMS_ITS | Encounter Summary ---
Author Organization [facility] Address [address] [place] [address] Phone Care Team Providers Care Laborer Adjustable Steel Joist Name Role Phone Arianna Persaud Unavailable [phone]- [phone] Leonidas Rubio MD Primary Care Provider David Brewer MD Unavailable Haven Cox MD Unavailable [phone] Daisy Mercado MD Unavailable [phone] Encounter Details Date Type Department Care Team (Late st Contact Info) Description 10/14/2024 Documentation [facility] 10 [facility] [address] [place] [id number] Katt Cornejo, [facility] [address] [place] [address] Social History Tobacco Use Types Packs/Day Years [...] materials from doctor or pharmacy Never 04/11/2023 [facility] Utilities Answer Date Recorded In [...] often do you attend chur ch or latter day services? Never 02/27/2023 Do you belong to any clubs o r organizations such as faith groups, unions, fraternal or athletic groups, or [...] to sleep or slept in a senior living (including now)? No 02/27/2023 Personal Safety Answer Date Recorded Have you ever been in or are you currently in a harmful physical or emotional relationship or is someone making you feel afraid or unsafe? Denies 09/19/2024 Comments No Sex and Gender Information Value Date Recorded Sex Assigned at Not on file Legal Sex Female 6:30 PM SLAB INSPECTOR Gender Identity Not on file Sexual Orientation Not on file documented as of this encounter Progress Notes * Katt Cornejo, ASSISTED LIVING NURSING DIRECTOR - 10/14/2024 10:22 AM CDT Senior Accounts Payable Clerk Assessment Referral received from: Joy Salinas RN Information obtained from: patient and son Patient alert & oriented xyes Assessment date: 10/14/2024 Best Phone # to Contact: OK To Leave a Message: yes Primary Language: Haitian Communication Barriers: none identified Advance Directives: AD/DPOA: Kaylynn has an advanced care directive, but needs to make changes to it. She moved from her daughter's home to her son's house. She requests new documents where she can be specific with her healthcare decisions. Concerns Regarding Abuse/Neglect: No. Concerns Regarding Domestic Violence: No. Living Arrangements: Susannah lives with her adult children. Lives in: her home. Patient Identified Barriers To Treatment: No barriers to treatment identified. 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 She receives $2,800 a month in income. Food Insecurity: Her son is a cook and provides healthy meals for her. Insurance Information: Name of primary insurance: Payor: [place] [employer] / Plan: [facility] MEDICARE ADVANTAGE / Product Type: [facility] MEDICARE / She is concerned about co-pays for her medical bills and said her medications are currently covered for the year because she met the catastrophic stage. She said her Xarelto has a very large co-pay, she was able to get samples from her doctor. VA Benefits: No. Legal Concerns: No. Social Support System: Family/Friends/Other She has 3 adult children and 4 grandchildren. Her children help her with ridesto appointments. She has a car and drives herself to visit friends. Coping: Coping methods: Kaylynn likes to garden, quilt, cook and socialize with friends. She is looking for more support in the cancer community and way to have more people to connect with. Physical Health She is able to take care of herself. What do I need to know about you to take better care of you? Kaylynn requests help with advanced care directive, co-pays and resources for counseling. Social Work Plan: Advance Directives Information was obtained from: Patient and Family Member(s) Kaylynn currently lives with her son, Amber. She wanted to change her current documents to add more specific details on her healthcare wishes. Social Work provided patient with [place] AD/DPOA form to complete. Patient identified surrogate decision-maker would be: her son. She said the back up would be her daughter. Social work reviewed the forms with her and her son and discussed need for witness signature. Social work also encouraged legal services, to make copies and share with her medical team. Co-Pay Assistance Social work provided information on The assistance fund, Patient advocate Fund, [employer] and [employer]. She said her daughter will assist her with looking at the sites and applying for co-pay programs. Community Resources Social Work provided patient with information about: Cancer Care. Patient will follow up on information provided. Medication Assistance Kaylynn said she has a very large co-pay for her medication. She said it is currently covered for theyear because she is in the catastrophic stage. Social work spoke with patient and family member to discuss assistance for the medication Xarelto (Pancho and Panch[employer]). Social work provided information patient assistance program through the journeyman pipe welder. Social Work will continue to follow to assist with this issue. Social work will follow up towards the end of the year/February to assist with applying when needed. Mental Health/Coping Information was obtained from: Patient and Family Kaylynn requests counseling for herself and her family. Social Work provided patient with information about Cancer Support Community. Social Work provided patient with information about [facility] Psychology Service. Kaylynn will reach out to both programs to get connected with new support people. Social work will remain available to assist as needed. BRIAN Hernandez, ASSISTED LIVING NURSING DIRECTOR, [facility] Clinical Binding Machine Operator Division of Oncology [facility] FAX [phone] documented in this encounter Plan of Treatment Not on file documented as of this encounter Visit Diagnoses Not on filedocumented in this encounter Care Teams Laborer Adjustable Steel Joist Relationship Specialty Start Date End Date Leonidas Rubio MD [address] [place] [address] PCP - General Family Medicine 09/05/24 Arianna Persaud PA [address] [place] [address] Physician Bench Inspector 08/29/24 David Brewer MD [address] [place] [address] Referring Physician Gastroenterology 09/23/24 Haven Cox MD [address] [place] [address] Consulting Physician Medical Oncology 09/23/24 Daisy Mercado MD [address] [place] [address] Consulting Physician General Surgery 09/23/24 documented as of this encounter
--- OUTSIDE RECORDS SUMMARY | 2024-10-14 17:39 | XMS_ITS ---
Author Organization [facility] Address [address] [place] [address] Care Team Providers Care Brick Stacker Name Role Phone Arianna Persaud Unavailable [phone] Leonidas Rubio MD Primary Care Provider David Brewer MD Unavailable [phone] Haven Cox MD Unavailable Daisy Mercado MD Unavailable [phone] Active Problems Problem Noted Date Diagnosed Date Pancreatic adenocarcinoma 10/07/2024 Pancreatic mass 09/04/2024 Elevated liver function tests 09/04/2024 Intractable pain 02/25/2023 Dizziness 11/07/2022 Mixed anxiety and depressive disorder 06/21/2022 Assessment & Plan (06/21/2022 7:25 PM WASHER ENGINEER): Worsening after of her mother in 04/2022. Feels more anxiety than depression. Admits panic attacks. Reluctant to start daily medication, don't want to feel trapped into taking medicine. Will Rx BuSpar as directed. Encouraged relaxation techniques such as deep breathing and guided imagery. Keep follow as scheduled, sooner if needed. Diarrhea 06/20/2022 Assessment & Plan (06/21/2022 7:16 PM WASHER ENGINEER): Ongoing for approximately 1 week after finishing a course of cefdinir for UTI. No more urinary symptoms or abdominal pain. No acute findings on exam. Will order CDiff test. Advised on Bowel rest: push fluids, bland high fiber diet. Continue immodium if needed. Vulvovaginitis 06/20/2022 Assessment & Plan (06/21/2022 7:17 PM WASHER ENGINEER): S/p cefdinir course for UTI. Denies discharge or genital lesions. exam deferred per pt request. Rxd Diflucan as directed. Use mild non-fragrant soaps/lotions. Recurrent UTI 06/08/2022 Assessment & Plan (06/08/2022 2:35 PM WASHER ENGINEER): Currently on Abx for treatment. Patient [...] 12/23/2021 Assessment & Plan (06/21/2022 7:12 PM WASHER ENGINEER): BP stable in office today on current therapy. Continue current regimen and low salt diet. Stay hydrated. Assessment & Plan (06/08/2022 2:36 PM WASHER ENGINEER): Chronic and mildly elevated. Goal < [...] 12/23/2021 Assessment & Plan (06/08/2022 2:35 PM WASHER ENGINEER): Chronic and stable. 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 with hogshead wrecker Assessment & Plan (12/23/2021 12:10 PM CDT): [...] mcg monthly) - Recheck CBC 3 months Current Treatment and Therapy Plans Gemcitabine / Albumin-bound PACLItaxel (Abraxane) 28 Day Cycles - Pancreas* Plan Start Date:10/13/2024 Plan Provider:Haven Cox MD Linked Problems Pancreatic adenocarcinoma (H CC) Treatment Medications Current Day (Day 1 , Cycle 1 - Planned for 10/15/2024) Next Day (Day 15, Cycle 1 - Planned for 10/28/2024) albumin-bound PACLItaxel (ABRAXANE)gemcitabine (GEMZAR)gemcitabine (GEMZAR) IVPB in 250 mL (using 38 mg/mL gemCITabine) (J9201) ALBUMIN-BOUND PACLItaxel (ABRAXANE) 5 mg/mL syringe 165 mggemcitabine (GEMZAR - J9201) 1,312 mg in sodium chloride 0.9% 250 mL IVPB ALBUMIN-BOUND PACLItaxel (ABRAXANE) 5 mg/mL syringe 165 mggemcitabine (GEMZAR - J9201) 1,312 mg in sodium chloride 0.9% 250 mL IVPB Past Treatment and Therapy Plans No past plan information found. Lifetime Dose Tracking * Chemical Lifetime Dose Automatic Entry Manual Entr y Fluoro Time 3.3 minutes 3.3 minutes 0 minutes Air kerma at the reference point (Ka,r) 69 mGy 6 9 mGy 0 mGy DLP 790 mGycm 790 mGycm 0 mGycm
--- OUTSIDE RECORDS SUMMARY | 2024-10-14 17:39 | XMS_ITS | Clinical Summary ---
Author Organization [facility] Address [address] [place] [address] Care Team Providers Care Florist Manager Name Role Phone Aury Joseph RN Unavailable [phone] Dar Stinson MD Unavailable Linette Yepez MD Primary Care Provider + Source Comments [facility],non-owned Affiliates and Associated Physician Practices is amultiple site organization consisting of ambulatory clinics and hospital sitesin [place], [place], [place] and [place]. This disclosure is being madepursuant to the Care Everywhere program and may not contain all information available regarding this patient. 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 [employer] Not on file Not on file Not on file Last Filed Vital Signs Vital Sign Reading Time Taken Comments Blood Pressure 106/74 06/16/2021 10:41 AM AD COMPOSITOR Pulse 60 06/16/2021 10:41 AM AD COMPOSITOR Temperature 36.2 C (97.2 F) 06/16/2021 10:41 AM AD COMPOSITOR Respiratory Rate 20 06/16/2021 10:41 AM AD COMPOSITOR Oxygen Saturation 97% 06/16/2021 10:41 AM AD COMPOSITOR Inhaled Oxygen Concentration - - Weight 72.6 kg (160 lb) 06/16/2021 10:41 AM AD COMPOSITOR Height 160 cm (5' 3) 06/16/2021 10:41 AM AD COMPOSITOR Body Mass Index 28.34 06/16/2021 10:41 AM AD COMPOSITOR Plan of Treatment Health Maintenance Due Date [...] < 140/90 Blood Pressure 106/74(2021 10:41 AM AD COMPOSITOR) Nae Montanez MA Medical Devices Implanted Type Area Chisel Trimmer Device Identifier Shelf Expiration Date Model / Serial / Lot Shell Coat 3hole 54mm Implanted:Qty: 1 on 11/21/2013 by Francis Cortes MD at [facility] Right: Hip [employer] 08/16/2023 [id number] / / [id number] Linr Acetab Refl Xlpe 0deg 36mm X 54mm Implanted:Qty: 1 on 11/21/2013 by Francis Cortes MD at [facility] Right: Hip [employer] 10/15/2023 [id number] / / [id number] Spherical Head Screw 6.5mm Cancellous Implanted:Qty: 1 on 11/21/2013 by Francis Cortes MD at [facility] Right: Hip [employer] 05/17/2023 [id number] / / [id number] Standard Offset Fixed Neck Stikitite Coated Stem Feoral Coponent Implanted:Qty: 1 on 11/21/2013 by Francis Cortes MD at [facility] Right: Hip [employer] 06/14/2023 [id number] / / [id number] 03/30 Taper Femoral Head Implanted:Qty: 1 on 11/21/2013 by Francis Cortes MD at [facility] Right: Hip [employer] 12/14/2022 [id number] / / [id number] Bill Only H1 Uncem Metal Or Ceramic Implanted:Qty: 1 on 11/21/2013 by Francis Cortes MD at [facility] [employer] H1 BILL ONLY [...] 1:06 PM CDT Narrative Resulting Agency Comment [facility] [address] [id number] Feliciano Oliver MD LAB - CHEMISTRY ORDERABLES Fin al Result [facility] ACCOUNT BILL [address] [place] [address] * MAMMO SCREENING DIGITAL IMAGE BILAT (09/09/2014 5:05 PM CDT) Anatomical Region Laterality Modality Breast Bilateral Mammography 09/10/2014 5:08 PM CDT Impressions 09/10/2014 5:09 PM CDT No mammographic evidence of malignancy in either breast. ASSESSMENT: BIRADS Category 1: Negative. RECOMMENDATION: Bilateral screening mammogram in one year. Thank you for allowing us to participate in the care of your patient. [facility] [place] utilizes [employer] as a reminder system to notify patients [...] offers HCV Ab w/Reflex to Verification test #[id number]. Blood specimen (specimen) BLOOD SPECIMEN / Unknown 08/09/2013 8:53 AM CDT 08/09/2013 12:57 PM CDT Narrative Resulting Agency Comment [facility] [address] [id number] Feliciano Oliver MD LAB - CHEMISTRY ORDERABLES Fin al Result [facility] ACCOUNT BILL [address] [place] [address] from Last 3 Months or Most Recently Relevant to Health Maintenance Insurance MANAGED MEDICARE ADV MANAGED MEDICARE ADV Advance Directives * Full Code (Latest Code Status on File) Date Activated Date Inactivated Comments 11/21/2013 12:38 PM 11/24/2013 6:31 PM * Full Code Date Activated Date Inactivated Comments 02/18/2009 10:26 AM 02/22/2009 1:32 AM Care Teams Florist Manager Relationship Specialty Start Date End Date Linette Yepez MD [address] [place] [address] PCP - General Family Medicine 01/09/20 Aury Joseph, RN Education Dean 11/22/13 [place] [address] [address] Orthopedic Surgery 12/27/13
== END 2024-10-14 17:36 | disposition home or self-care (01) ==
PROVIDERS: PCP Family Medicine; Visit Provider Student in an Organized Health Care Education/Training Program
DX: R30.0 Dysuria (principal)
CPT/HCPCS: 87086

== ENCOUNTER 2024-10-19 22:48 | Emergency (ER) | payer MEDICARE, SELFPAY ==
--- NOTE | ~2024-10-19 | XR_ITS ---
CHEST RADIOGRAPH CLINICAL HISTORY: sob . COMPARISON: 11/14/2019 TECHNIQUE: Single portable view of the chest. FINDINGS Interval placement of a left internal jugular central venous power port catheter with its tip project ing over the cavoatrial junction. The remainder of the cardiomediastinal silhouette is otherwise unremarkable. The lungs are clear. IMPRESSION: No focal infiltrate or effusion. Reviewed, dictated and finalized at location A.
--- OUTSIDE RECORDS SUMMARY | 2024-10-19 22:51 | XMS_ITS | Encounter Summary ---
Author Organization [facility] Address [address] [place] [address] Phone Care Team Providers Care Receiving Specialist Name Role Phone Arianna Persaud Unavailable [phone]- [phone] Leonidas Rubio MD Primary Care Provider David Brewer MD Unavailable Haven Cox MD Unavailable [phone] Daisy Mercado MD Unavailable [phone] Encounter Details Date Type Department Care Team (Late st Contact Info) Description 10/19/2024 Telephone [facility] Oncology [facility] Floor [address] [place] [address] Social History Tobacco Use Types Packs/Day Years [...] materials from doctor or pharmacy Never 04/11/2023 [facility] Utilities Answer Date Recorded In [...] any clubs o r organizations such as evangelical groups, unions, fraternal or athletic groups, or [...] on file Legal Sex Female 6:30 PM HEDIS ABSTRACTOR Gender Identity Not on file Sexual Orientation Not on file documented as of this encounter Miscellaneous Notes * Telephone Encounter - [address] - 10/19/2024 9:46 PM CDT Daughter called the exchange stating the patient has worsening leg edema (+3 pitting according to daughter). She has redness on her ankles and thighs and they are warm to touch. She has clear fluid weeping from bilateral legs. All of these symptoms are new. Patient has dry cough, wheezing and SOB. She was advised to go to the ER this evening. Patient wanted to go tomorrow AM. They were advised not to wait, and to go tonight. They verbalized understanding. MD Team informed of call. documented in this encounter Plan of Treatment Not on file documented as of this encounter Visit Diagnoses Not on filedocumented in this encounter Care Teams Receiving Specialist Relationship Specialty Start Date End Date Leonidas Rubio MD [address] [address] PCP - General Family Medicine 09/05/24 Arianna Persaud PA [address] [place] [address] Physician Web Producer 08/29/24 David Brewer MD [address] [place] [address] Referring Physician Gastroenterology 09/23/24 Haven Cox MD [address] [place] [address] Consulting Physician Medical Oncology 09/23/24 Daisy Mercado MD [address] [facility] [address] [place] [address] Consulting Physician General Surgery 09/23/24 documented as of this encounter
--- OUTSIDE RECORDS SUMMARY | 2024-10-19 22:51 | XMS_ITS | Encounter Summary ---
Author Organization [facility] [address] [address] [place] [address] Care Team Providers Care Char Filter Operator Name Role Phone Linette Yepez MD Primary Care Provider [phone] Reason for Visit * Reason Onset Date Comments MEDICAL MANAGEMENT 04/13/2020 JENNIFER W/ RAVI Nettles/ [facility] Encounter Details Date Type Department Care Team ([facility] st Contact Info) Description 04/13/2020 Telephone [facility] Admitting [address] [place] [address] [place] [id number] [place] [address] [place] [address] MEDICAL MANAGEMENT (JENNIFER Nettles/ RAVI Nettles/ HOSPITALIST [...] COVID-19? No / Unsure 04/13/2020 6:46 AM PLYWOOD STOCK GRADER documented as of this encounter Plan of Treatment Not on file documented as of this encounter Visit Diagnoses Not on filedocumented in this encounter Care Teams Char Filter Operator Relationship Specialty Start Date End Date Linette Yepez MD PCP - General Family Practice 04/01/20 documented as of this encounter
--- OUTSIDE RECORDS SUMMARY | 2024-10-19 22:51 | XMS_ITS ---
Author Organization [facility] Address [address] [place] [address] Care Team Providers Care Equipment Superintendent Name Role Phone Arianna Persaud Unavailable [phone] Leonidas Rubio MD Primary Care Provider David Brewer MD Unavailable Haven Cox MD Unavailable Daisy Mercado MD Unavailable [phone] Active Problems Problem Noted Date Diagnosed Date Dehydration 10/16/2024 Pancreatic adenocarcinoma 10/07/2024 Pancreatic mass 09/04/2024 Elevated liver function tests 09/04/2024 Intractable pain 02/25/2023 Dizziness 11/07/2022 Mixed anxiety and depressive disorder 06/21/2022 Assessment & Plan (06/21/2022 7:25 PM SUPERVISOR TRANSCRIBING OPERATORS): Worsening after of her mother in 04/2022. Feels more anxiety than depression. Admits panic attacks. Reluctant to start daily medication, don't want to feel trapped into taking medicine. Will Rx BuSpar as directed. Encouraged relaxation techniques such as deep breathing and guided imagery. Keep follow as scheduled, sooner if needed. Diarrhea 06/20/2022 Assessment & Plan (06/21/2022 7:16 PM SUPERVISOR TRANSCRIBING OPERATORS): Ongoing for approximately 1 week after finishing a course of cefdinir for UTI. No more urinary symptoms or abdominal pain. No acute findings on exam. Will order CDiff test. Advised on Bowel rest: push fluids, bland high fiber diet. Continue immodium if needed. Vulvovaginitis 06/20/2022 Assessment & Plan (06/21/2022 7:17 PM SUPERVISOR TRANSCRIBING OPERATORS): S/p cefdinir course for UTI. Denies discharge or genital lesions. exam deferred per pt request. Rxd Diflucan as directed. Use mild non-fragrant soaps/lotions. Recurrent UTI 06/08/2022 Assessment & Plan (06/08/2022 2:35 PM SUPERVISOR TRANSCRIBING OPERATORS): Currently on Abx for treatment. Patient to [...] Assessment & Plan (06/21/2022 7:12 PM SUPERVISOR TRANSCRIBING OPERATORS): BP stable in office today on current therapy. Continue current regimen and low salt diet. Stay hydrated. Assessment & Plan (06/08/2022 2:36 PM SUPERVISOR TRANSCRIBING OPERATORS): Chronic and mildly elevated. Goal < 130/80. [...] Assessment & Plan (06/08/2022 2:35 PM SUPERVISOR TRANSCRIBING OPERATORS): Chronic and stable. 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 with supervisor paste plant Assessment & Plan (12/23/2021 12:10 PM CDT): [...] CC) Treatment Medications Current Day (Day 1 5, Cycle 1 - Planned for 10/28/2024) Next Day (Day 1, Cycle 2 - Planned for 11/11/2024) albumin-bound PACLItaxel (ABRAXANE)dexAMETHasone (DECADRON)gemcitabine (GEMZAR)gemcitabine (GEMZAR) IVPB in 250 mL (using 38 mg/mL gemCITabine) (J9201) ALBUMIN-BOUND PACLItaxel (ABRAXANE) 5 mg/mL syringe 165 mggemcitabine (GEMZAR - J9201) 1,312 mg in sodium chloride 0.9% 250 mL IVPB ALBUMIN-BOUND PACLItaxel (ABRAXANE) 5 mg/mL syringe 165 mggemcitabine (GEMZAR - J9201) 1,312 mg in sodium chloride 0.9% 250 mL IVPB Hydration Therapy Plan* Plan Start Date:10/17/2024 Plan Provider:Haven Cox MD Linked Problems DehydrationPancreatic adenoc arcinoma (HCC) Treatment Medications No medications scheduled. Past Treatment and Therapy Plans No past plan information found. Lifetime Dose Tracking * Chemical Lifetime Dose Automatic Entry Manual Entr y Fluoro Time 3.3 minutes 3.3 minutes 0 minutes Air kerma at the reference point (Ka,r) 69 mGy 6 9 mGy 0 mGy DLP 790 mGycm 790 mGycm 0 mGycm
--- OUTSIDE RECORDS SUMMARY | 2024-10-19 22:51 | XMS_ITS | Continuity of Care Document ---
Author Organization [facility] Address [address] [place] [address] Phone Care Team Providers Care Display Manager Name Role Phone Maribel BROWN, Ramirez Unavailable [...] OFFICE/OUTPA TIENT VISIT NEW [facility], [address], [place], [address], tel:[phone] [facility] [place] CervicalgiaOther spondylosis with myelopathy, cervical regionAbnormal reflex Maribel Guzmán. [address], [place], [place], [id number] , [place]. tel: [phone] Referring Provider: Nidhi Smart [address], [place], [address]. tel:[phone] Family History Family Member Type Diagnosis Age At Onset No Information Payers Payer name Insurance type Covered green party ID Pedro chaney(s) AARP Medicare Complete HMO-POS [id number] Social History Type Description Quantity Date [...]
--- OUTSIDE RECORDS SUMMARY | 2024-10-19 22:51 | XMS_ITS | Patient Health Record ---
Author Organization [facility] Address [address] [place] [address] Care Team Providers Care Drag Down Name Role Phone Lucho BROWN, Linette Primary Care Provider Francie Nidhi Alejandre Unavailable [phone] Maegan POPE, Sussy Unavailable Lissette Colby Unavailable [phone] Johnathon Dick Unavailable [phone] Allergies No Known Allergies Results Component Value Reference Range Notes [employer] Profil e Reviewed date:03/04/2024 07:46:44 AM Interpretation: Performing Lab:[facility] (CLIA#: [id number]), [address] [place] [address], Director - Adelina Jensen Notes/Report: Certifying Diamond Cutter: Nicolas Carlson (Remote [id number]) These tests were developed and their performance characteristics determined by [facility]. They have not been cleared or approved by the [place] Food and Drug Administration. Analyzed at [facility] (CLIA#: [id number]) - [address] [place] [address] - Investor Relations Analyst: Adelina Ontiveros Cital+Escital Ur CMP >87366 >=50 ng/mL COMPLIA NT: Test result is [...] form, was detected. Ethyl Sulfate Ur CMP 96572 >=200 ng/mL PRESENT : Test result is consistent with alcohol exposure within 72 hours of specimen collection. For additional information, please consult the Clinical Team at or email [email or web address]. BioDetect EXPECTED Test result is consistent with [...] >=200 ng/mL POSITIVE Ethyl sulfate Ur Cfm-mCnc 10831 >=200 ng/mL PO SITIVE Busprione Ur Ql Cfm <25 >=25 ng/mL NONE DET ECTED Tizanidine Ur Ql Cfm >=25 >=25 ng/mL POSITIV E Tizanidine Ur Cfm-mCnc 157 >=25 ng/mL POSIT NILSA Dehydrotizanidine Ur Cfm-mCnc 17 >=5 ng/mL POSITIVE SSRI Profile Ur Ql Cfm >=50 >=50 ng/mL POSIT NILSA Norcitalopram Ur-mCnc >75690 >=50 ng/mL POSITI VE Synthetic Stimulants Ur Ql Cfm <1 >=1 ng/mL NONE DETECTED DATA ANALYSIS MANAGER Not Otherwise Specified Ur Ql Cfm <1 >=1 ng/mL NONE DETECTED Synthetic Cannabinoids Ur Ql Cfm <1 >=1 ng/m L NONE DETECTED Hallucinogens/Dissociatives Ur Ql Cfm <1 >=1 ng/mL NONE DETECTED Optical Instrument Assembly Supervisor Benzodiazepines Ur Ql Cfm <1 >=1 ng/mL NONE DETECTED Optical Instrument Assembly Supervisor Opioids Ur Ql Cfm <1 >=1 ng/mL N ONE DETECTED THC Ur Ql Scn <20 >=20 ng/mL NONE DETECTED [employer] [facility] Profil e (Not yet reviewed by provider) Interpretation: Performing Lab:[facility] (CLIA#: [id number]), [address] [place] [address], Director - Adelina Jensen Notes/Report: These tests were developed and their performance characteristics determined by [facility]. They have not been cleared or approved by the [place] Food and Drug Administration. Certifying Diamond Cutter: Dustin Quinn (Remote [id number]) Analyzed at [facility] (CLIA#: [id number]) - [address] [place] [address] - Investor Relations Analyst: Adelina Ontiveros Buprenorphine Ur CMP 46 >=1 [...] expected with prescribed drug. Tramadol Ur CMP >60823 >=100 ng/mL COMPLIANT: T est result is [...] >=100 ng/mL POSITIVE N-Desmethyl Tram Ur Cfm-mCnc >64215 >=100 ng/mL POSITIVE Creat Ur-mCnc 19.5 20 [...] Ql Cfm <1 >=1 ng/mL NONE DETECTED DATA ANALYSIS MANAGER Not Otherwise Specified Ur Ql Cfm <1 >=1 ng/mL NONE DETECTED Synthetic Cannabinoids Ur Ql Cfm <1 >=1 ng/m L NONE DETECTED Hallucinogens/Dissociatives Ur Ql Cfm <1 >=1 ng/mL NONE DETECTED Optical Instrument Assembly Supervisor Benzodiazepines Ur Ql Cfm <1 >=1 ng/mL NONE DETECTED Optical Instrument Assembly Supervisor Opioids Ur Ql Cfm <1 >=1 ng/mL N ONE DETECTED THC Ur Ql Scn <20 >=20 ng/mL NONE DETECTED [employer] Profil e (Not yet reviewed by provider) Interpretation: Performing Lab:[facility] (CLIA#: [id number]), [address] [place] [address], Director - Adelina Jensen Notes/Report: These tests were developed and their performance characteristics determined by [facility]. They have not been cleared or approved by the [place] Food and Drug Administration. Certifying Diamond Cutter: Shalom Nicholson (Remote [id number]) Analyzed at [facility] (CLIA#: [id number]) - [address] [place] [address] - Investor Relations Analyst: Adelina Ontiveros Cital+Escital Ur CMP >90267 >=50 ng/mL COMPLIA NT: Test result is [...] expected with prescribed drug. Tramadol Ur CMP >92102 >=100 ng/mL COMPLIANT: T est result is consistent and expected with prescribed drug. Pregabalin Ur CMP <5 >=5 mcg/mL NON-COMPLI ANT: Test result indicates patient may not be taking drug prescribed. Ethyl Sulfate Ur CMP 68130 >=200 ng/mL PRESENT : Test result is consistent with alcohol exposure within 72 hours of specimen collection. For additional information, please consult the Clinical Team at or email [email or web address]. BioDetect EXPECTED Test result is consistent with [...] >=100 ng/mL POSI TIVE Tramadol Ur Cfm-mCnc >36561 >=100 ng/mL POSITIV E N-Desmethyl Tram Ur Cfm-mCnc >23023 >=100 ng/mL POSITIVE Creat Ur-mCnc 275.9 20 - 370 mg/dL NORMAL Creatinine and pH are performed for specimen validity and not diagnostic purposes. pH Ur 6.04 4.5 - 9.0 NORMAL Creatinine and pH are performed for specimen validity and not diagnostic purposes. Alcohol Metabolites Ur Ql Cfm >=200 >=200 ng/mL POSITIVE Ethyl sulfate Ur Cfm-mCnc 95581 >=200 ng/mL PO SITIVE Busprione Ur Ql Cfm <25 >=25 ng/mL NONE DET ECTED SSRI Profile Ur Ql Cfm >=50 >=50 ng/mL POSIT NILSA Citalopram Ur Cfm-mCnc >33343 >=50 ng/mL POSIT NILSA Norcitalopram Ur-mCnc >11183 >=50 ng/mL POSITI VE SN Reuptake Inhibitors Ur Ql <5 >=5 ng/mL NONE DETECTED Synthetic Stimulants Ur Ql Cfm <1 >=1 ng/mL NONE DETECTED DATA ANALYSIS MANAGER Not Otherwise Specified Ur Ql Cfm <1 >=1 ng/mL NONE DETECTED Synthetic Cannabinoids Ur Ql Cfm <1 >=1 ng/m L NONE DETECTED Hallucinogens/Dissociatives Ur Ql Cfm <1 >=1 ng/mL NONE DETECTED Optical Instrument Assembly Supervisor Benzodiazepines Ur Ql Cfm <1 >=1 ng/mL NONE DETECTED Optical Instrument Assembly Supervisor Opioids Ur Ql Cfm <1 >=1 ng/mL [...] W/U Status Risk Notes Problem Cervical spondylosis (615219137) Cervical spondylosis (M47.812) Active confirmed Problem Hypercholesterolemia (68145357) Hypercholesterolemia (E78.00) Active confirmed Problem Long-term current us e of drug therapy (723193579) intermediate use of drug (Z79.899) Active confirmed Problem Neck pain (50226163) Cervical sp ine pain (M54.2) Active confirmed Problem Hypertension (56817002) Hypertension (I10) 2009 Active confirmed Problem Low back pain (146701479) Low back pain (M54.50) Active confirmed Problem Atrial fibrillation (19697276) Atrial fibrillation (I48.91) Active confirmed Problem Long-term current us e of anticoagulant (208884189) Anticoagulated (Z79.01) Active confirmed Vital Signs Heart Rate 61 /min 08/20/2024 Height-cm 160.02 cm 09/26/2024 Blood pressure diastolic 89 mm Hg 08/20/2024 Weight-kg 63.05 kg 09/26/2024 Height 5ft 3in in 09/26/2024 Blood pressure systolic 142 mm Hg 08/20/2024 Weight 139 lbs 09/26/2024 BMI 24.62 kg/m2 09/26/2024 Encounters Encounter Location Date Provider Diagnosis [facility] [address] [place] [address] [address] [place] [address] 11/21/2023 Lissette Colby Cervical spine pain M54.2 ; DDD (degenerative disc disease), lumbar M51.36 and terminal block assembler use of drug Z79.899 Telehealth [facility] [address] [place] [address] [address] [place] [address] 12/26/2023 Lissette Colby Cervical spine pain M54.2 ; DDD (degenerative disc disease), lumbar M51.36 ; Cervical spondylosis M47.812 and intermediate use of drug Z79.899 [facility] [address] [facility] [address] [place] [address] 01/11/2024 Lissette Colby Cervical spine pain M54.2 ; Cervical spondylosis M47.812 ; DDD (degenerative disc disease), lumbar M51.36 ; Low back pain M54.50 ; Left knee pain M25.562 and intermediate use of drug Z79.899 [facility] [address] [facility] [address] [place] [address] 02/26/2024 Lissette Colby Cervical spondylosis M47.812 ; Cervical spine pain M54.2 ; Low back pain M54.50 ; On nursing home drug therapy Z79.899 and Screening for substance abuse Z13.89 Telehealth [facility] [address] [place] [address] [address] [place] [address] 03/25/2024 Sussy Issa Cervical spondylosis M47.812 ; Cervical spine pain M54.2 ; Low back pain M54.50 and terminal block assembler use of drug Z79.899 [facility] [address] [facility] [address] [place] [address] 04/25/2024 Lissette Colby Cervical spondylosis M47.812 ; Cervical spine pain M54.2 ; Low back pain M54.50 and terminal block assembler use of drug Z79.899 Telehealth [facility] [address] [facility] [address] [place] [address] 05/09/2024 Lissette Colby Cervical spine pain M54.2 ; Cervical spondylosis M47.812 and On longwall headgate operator drug therapy Z79.899 [facility] [address] [facility] [address] [place] [address] 06/18/2024 Lissette Colby Cervical spondylosis M47.812 ; Cervical spine pain M54.2 and intermediate use of drug Z79.899 Telehealth [facility] [address] [place] [address] [address] [place] [address] 07/16/2024 Lissette Colby Cervical spine pain M54.2 ; Low back pain M54.50 ; Cervical spondylosis M47.812 and intermediate use of drug Z79.899 [facility] [address] [place] [address] 08/20/2024 Lissette Colby Cervical spondylosis M47.812 ; Cervical spine pain M54.2 ; Low back pain M54.50 and terminal block assembler use of drug Z79.899 Telehealth [facility] [address] [place] [address] 09/12/2024 Lissette Colby Cervical spine pain M54.2 ; Cervical spondylosis M47.812 ; Hypertension I10 ; Pancreatic neoplasm D49.0 and terminal block assembler use of drug Z79.899 [facility] [address] [place] [address] 09/26/2024 Johnathon Mayelin Pancreatic carcinoma C25.9 ; Cervical spondylosis M47.812 ; Cervical spine pain M54.2 ; Low back pain M54.50 ; terminal block assembler use of drug Z79.899 ; Hypertension I10 ; intermediate use of opioid Z79.891 ; Hypercholesterolemia E78.00 ; Anticoagulated Z79.01 and Atrial fibrillation I48.91 [facility] [address] [facility] [address] [place] [address] 11/21/2023 Nidhi Dick [facility] [address] [place] [address] 11/27/2023 Nidhi Dick [facility] [address] [place] [address] 12/26/2023 Nidhi Dick [facility] [address] [place] [address] 01/11/2024 Nidhi Dick [facility] [address] [place] [address] 01/25/2024 Johnathon Dick [facility] [address] [place] [address] 02/26/2024 Nidhi Dick [facility] [address] [place] [address] 03/25/2024 Nidhi Mayelin [facility] [address] [place] [address] 04/25/2024 Nidhi Mayelin [facility] [address] [place] [address] 05/09/2024 Nidhi Mayelin [facility] [address] [place] [address] 06/18/2024 Nidhi Mayelin [facility] [address] [place] [address] 07/16/2024 Nidhi Mayelin [facility] [address] [place] [address] 08/20/2024 Nidhi Mayelin [facility] [address] [place] [address] 09/12/2024 Johnathon Mayelin [facility] [address] [place] [address] 09/19/2024 Nidhi Mayelin [facility] [address] [place] [address] 09/26/2024 Johnathon Mayelin [facility] [address] [place] [address] 09/27/2024 Johnathon Mayelin [facility] [address] [place] [address] 10/03/2024 Johnathon Mayelin Assessments Encounter Date Diagnosis [...] Cervical spine pain (ICD-10 - M54.2) 06/18/2024 intermediate use of kike g (ICD-10 - Z79.899) 05/09/2024 On longwall headgate operator drug therapy (ICD-10 - Z79.899) 04/25/2024 Cervical spine pain (ICD-10 - M54.2) 03/25/2024 Low back pain (ICD-1 0 - M54.50) 02/26/2024 Low back pain (ICD-1 0 - M54.50) 01/11/2024 DDD (degenerative di sc disease), lumbar (ICD-10 - M51.36) 12/26/2023 Cervical spondylosis (ICD-10 - M47.812) 11/21/2023 intermediate use of kike g (ICD-10 - Z79.899) 02/26/2024 On nursing home drug therapy (ICD-10 - Z79.899) 12/26/2023 intermediate use of kike g (ICD-10 - Z79.899) 03/25/2024 terminal block assembler use of kike g (ICD-10 - Z79.899) 04/25/2024 Low back pain (ICD-1 0 - M54.50) 08/20/2024 Low back pain (ICD-1 0 - M54.50) 07/16/2024 intermediate use of kike g (ICD-10 - Z79.899) 09/12/2024 Pancreatic neoplasm (ICD-10 - D49.0) 01/11/2024 Low back pain (ICD-1 0 - M54.50) 09/26/2024 terminal block assembler use of kike g (ICD-10 - Z79.899) 09/26/2024 Hypertension (ICD-10 - I10) 09/12/2024 terminal block assembler use of kike g (ICD-10 - Z79.899) 04/25/2024 intermediate use of kike g (ICD-10 - Z79.899) 08/20/2024 terminal block assembler use of kike g (ICD-10 - Z79.899) 01/11/2024 Left knee pain (ICD- 10 - M25.562) 02/26/2024 Screening for substa nce abuse (ICD-10 - Z13.89) 01/11/2024 intermediate use of kike g (ICD-10 - Z79.899) 09/26/2024 intermediate use of opi oid (ICD-10 - Z79.891) [...] 06/18/2024 Synthetic Stimulants 02/26/2024 Synthetic Stimulants 09/26/2024 Optical Instrument Assembly Supervisor Benzodiazepines 06/18/2024 Optical Instrument Assembly Supervisor Benzodiazepines 09/26/2024 Optical Instrument Assembly Supervisor Benzodiazepines 02/26/2024 Synthetic Cannabinoids 02/26/2024 Synthetic Cannabinoids 09/26/2024 Synthetic Cannabinoids 06/18/2024 Optical Instrument Assembly Supervisor Opioids 09/26/2024 Optical Instrument Assembly Supervisor Opioids 02/26/2024 Optical Instrument Assembly Supervisor Opioids 06/18/2024 Hallucinogens/Dissociatives 02/26/2024 Hallucinogens/Dissociatives 06/18/2024 Hallucinogens/Dissociatives 09/26/2024 DATA ANALYSIS MANAGER Other 09/26/2024 DATA ANALYSIS MANAGER Other 06/18/2024 DATA ANALYSIS MANAGER Other 02/26/2024 Marijuana - Urine 02/26/2024 Marijuana [...] Insured Coverage Start Date Coverage End Date [facility] [address] [address] [place] [address] [id number] Susannah Camargo Self - patient is the insured Medical (General) History Medical History History ICD Code hyperlipidemia hypertension Atrial fibrillation Surgical History Surgery Date(Month/Year) B TKR B THR oophorectomy gastric sleeve 03/2020 Hospitalization History Reason Date(Month/Year) no hospitalizations since prior visit
--- OUTSIDE RECORDS SUMMARY | 2024-10-19 22:51 | XMS_ITS | Referral Summary ---
Author Organization [facility] Address [address] [place] [address] Care Team Providers Care Dolly Pusher Name Role Phone Arianna Persaud Unavailable [phone]- [phone] Leonidas Rubio MD Primary Care Provider David Brewer MD Unavailable Haven Cox MD Unavailable Daisy Mercado MD Unavailable [phone] Encounters Date Type Department Care Team Description 10/20/19 25 Telephone [facility] Oncology [address] [place] [address] Floor 6 [place] [address] 10/18/19 25 9:45 AM CDT Lab [facility] at [address] [address] Pancreatic adenocarcinoma (HCC) 10/18/19 25 10:45 AM CDT Infusion [facility] Center at [address] [address] Dehydration (Primary Dx); Pancreatic adenocarcinoma (HCC) 10/17/19 25 Telephone [facility] Oncology [address] [place] [address] Floor 5 [place] [address] Lissette Ortiz RN 10/16/19 25 Documentation [facility] Center at [address] [place] [address] Billie Harry, RD 10/16/19 25 Telephone [facility] Oncology [facility] Floor 6 [place] [address] Haven Cox MD 10/16/19 25 Documentation [facility] Oncology [address] [place] [address] [address] [place] [address] Katt Rios LCSW 10/16/19 25 Orders Only [facility] Oncology [address] [place] [address] Floor 5 [place] [address] Lissette Ortiz, AUSTEN Pancreatic adenocarcinoma (HCC) (Primary Dx) 10/16/19 25 10:00 AM CDT Infusion [facility] at [address] [place] [address] Pancreatic adenocarcinoma (HCC) (Primary Dx) 10/15/19 25 Orders Only [facility] Oncology [address] [place] [address] Floor 5 [place] [address] Lissette Ortiz, AUSTEN Pancreatic adenocarcinoma (HCC) (Primary Dx) 10/15/19 25 Documentation [facility] [place] at [address] [place] [address] Billie Harry, RD 10/15/19 25 Documentation [facility] Oncology [address] [place] [address] [address] [place] [address] Katt Rios, ADAMARIS 10/15/19 25 7:30 AM CDT Clinical Support [facility] at [address] [place] [address] Pancreatic adenocarcinoma (HCC) 10/11/19 25 8:50 AM CDT - 10/11/19 25 11:59 PM CDT Hospital Encounter [facility] Imaging [address] [address] [place], [place] [address] Mary Kay Campuzano RT Anderson, Melissa Jane, RN [place], Emily E., RN Pancreatic adenocarcinoma (HCC) Discharge Disposition: Discharge to home or self care 10/11/19 7:09 AM CDT - 10/11/19 11:59 PM CDT Hospital Encounter [facility] Imaging [address] [facility] Medical Office Building [address] [place] [address] Pancreatic adenocarcinoma (HCC) Discharge Disposition: Discharge to home or self care 10/10/19 Telephone [facility] Imaging [address] [place] [address] Leslie Armando RN 10/10/19 Telephone [facility] Imaging [address] [address] [address] Megan Hsu RN 10/08/19 3:45 PM CDT Lab [facility] at [facility] [address] [facility] [place] [phone] Pancreatic adenocarcinoma (HCC) 10/08/19 2:00 PM CDT Office Visit [facility] Oncology [address] [facility] [address] [place] [phone] Haven Cox MD Pancreatic adenocarcinoma (HCC) (Primary Dx); Pancreatic mass 09/28/19 1:45 PM CDT Office Visit [facility] Cardiology [address] [facility] [address], [place] [address] Onesimo George MD Atrial fibrillation status post cardioversion (HCC) (Primary Dx); History of cardiac radiofrequency ablation; Essential hypertension; Pancreatic adenocarcinoma (HCC); NOMI on CPAP; Lipid screening 09/21/19 Results Follow-Up [facility] [address] [facility] [address], [address] [place] [phone] Body Outside Consult 09/21/19 Results Follow-Up [facility] Gastroenterology [address] [facility] Medical Office Building 4, [address] [place] [address] David Brewer MD Surgical pathology 09/20/19 10:17 AM CDT - 09/20/19 2:37 PM CDT Emergency [address] [place] [address] Morgan Celestin MD Das, Koushik Kumar, MD Fall, initial encounter (Primary Dx); Pancreatic mass Discharge Disposition: Discharge to home or self care 09/20/19 12:40 PM CDT Anesthesia Event [address] [place] [address] Travis Whittington MD 09/20/19 9:30 AM CDT - 09/20/19 10:30 AM CDT Surgery [address] [address] David Brewer MD ESOPHAGOGASTRODUODENOSCOPY ULTRASOUND FINE NEEDLE ASPIRATION/BIOPSY [GI534] 09/19/19 Telephone [facility] Department of Hepatobiliary, Pancreatic, & Gastrointestinal Surgery [address] [place] [address] for Advanced Medicine 12th Floor, [place] [address] Hilda Love PA 09/18/19 12:15 PM CDT Lab [facility] at [address] [place] [address] Pancreatic mass; 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, unspecified; Encounter for follow-up examination after completed treatment for conditions other than malignant neoplasm 09/18/19 Telephone [facility] Surgery [address] [place] [address] [address] [place] [address] Susan Marroquin RN 09/18/19 8:30 AM CDT Office Visit [facility] Surgery [address] [place] [address] [address] [place] [phone] Daisy Mercado MD Pancreatic mass (Primary Dx); Other specified diseases of pancreas; Encounter for follow-up examination after completed treatment for conditions other than malignant neoplasm; Neoplasm of uncertain behavior of other specified digestive organs 09/14/19 Orders Only [facility] Surgery [address] [facility] [address] [place] [address] Ana Sánchez PA Liver lesion (Primary Dx) 09/14/19 Orders Only [facility] Gastroenterology [address] [place] [address] Medical Office Building 4, [address] [place] [address] David Brewer MD Elevated liver function tests (Primary Dx) 09/14/19 12:53 PM CDT - 09/14/19 11:59 PM CDT Hospital Encounter [facility] ([facility]) [address] [place] [address] Pancreatic mass Discharge Disposition: Discharge to home or self care 09/13/19 Telephone [facility] Gastroenterology [address] [place] [address] Medical Office Building 4, [address] [place] [address] Arlyn Segovia, family consultant call 09/13/19 Orders Only [facility] Gastroenterology [address] [place] [address] Medical Office Building 4, [address] [place] [address] Arlyn Segovia, AUSTEN Pancreatic mass (Primary Dx) 09/12/19 Results Follow-Up [facility] Gastroenterology [address] [place] [address] Medical Office Building 4, [address] [place] [address] David Brewer MD Surgical pathology 09/12/19 Telephone [facility] Surgery [address] [place] [address] [address] [place] [address] Susan Marroquin RN 09/07/19 Orders Only [facility] [address] [place] [address] David Brewer MD 09/07/19 1:07 PM CDT Anesthesia Event [facility] [address] [place] [phone] Wayne Nicholson MD 09/07/19 10:35 AM CDT Lab [facility] Outpatient Lab [address] [place] [phone] Pancreatic mass; Elevated liver function tests 09/07/19 25 6:50 AM CDT - 09/07/19 25 11:59 PM CDT Hospital Encounter [facility] [address] [place] [phone] Upper abdominal pain Discharge Disposition: Discharge to home or self care 09/07/19 12:30 PM CDT - 09/07/19 25 1:00 PM CDT Surgery [facility] [address] [place] [phone] David Brewer MD ESOPHAGOGASTRODUODENOSCOPY ULTRASOUND GUIDE LIMITED 09/07/19 11:07 AM CDT - 09/07/19 25 4:10 PM CDT Hospital Encounter [facility] [address] [place] [address] Geoffrey Shaver MD Das, Koushik Kumar, MD Pancreatic mass; Elevated liver function tests Discharge Disposition: Discharge to home or self care 09/06/19 25 1:04 PM CDT - 09/06/19 25 11:59 PM CDT Hospital Encounter [facility] ([facility]) [address] [place] [address] Diagnosis unknown Discharge Disposition: Discharge to home or self care 09/05/19 Telephone [facility] Cardiology [address] [facility] [address], [place] [address] Onesimo George MD cardiac clearance 09/05/19 Telephone [facility] Gastroenterology [address] [facility] Medical Office Building 4, [address] [place] [address] Carmen Ordonez LPN GI Preprocedure 09/04/19 Telephone [facility] [address] [facility] Advanced [facility] 12th Floor, [place] [phone] Daisy Mercado MD Medical Question/Miscellaneous 09/03/19 25 Orders Only [facility] Surgery [address] [facility] [address] [place] [phone] Ana Sánchez PA Pancreatic mass (Primary Dx); [...] MOUTH DAILY 90 tablet 3 025 Active tiZANidine (ZANAFLEX) 2 mg tablet [...] day 60 capsule 11 025 2025 Active oxyCODONE (ROXICODONE) 10 mg tablet Take [...] or vomiting 120 tablet 2 025 Active loperamide (IMODIUM A-D) 2 mg tabletIndications :Pancreatic adenocarcinoma (HCC) Take 1 tablet (2 mg total) by mouth as needed for diarrhea (Take 2 tablets with first episode of diarrhea and 1 tablet after each additional episode of diarrhea. Up to 8 tablets daily.) 120 tablet 1 Active lidocaine-priloca ine (EMLA) creamIndications: Administration of Local Anesthesia Apply topically as needed for pain 30 g 1 025 Active diphenoxylate-atr opine (LOMOTIL) 2.5-0.025 mg per tabletIndications :diarrhea Take 1 tablet by mouth 4 (four) times a day as needed for diarrhea 90 tablet 025 2024 Active morphine ER (MS CONTIN) 15 mg 12 hr tabletIndications :Pancreatic adenocarcinoma (HCC) Take 1 tablet (15 mg total) by mouth 2 (two) times a day 60 tablet 025 2024 Active pancrelipase (Zenpep) 40,000-126,000- 168,000 unit per capsuleIndication s:exocrine pancreatic insufficiency Take 1 capsule by mouth 3 (three) times a day with meals 45 capsule 1 025 Active pancrelipase (Zenpep) 20,000 units of lipase per capsule Take 1 capsule by mouth as needed for with snacks 60 capsule 1 025 Active multivitamin tablet tablet Take one by mouth one time per day 0 0 008 2024 Discontinued albuterol HFA (PROVENTIL HFA,VENTOLIN HFA,PROAIR HFA) 90 [...] 20 tablet 023 2024 Discontinued(D uplicate order) folic acid (FOLVITE) 400 mcg tabletIndications :Folate [...] 60 tablet 5 024 2024 Discontinued(R eorder) pancrelipase (Zenpep) 40,000-126,000- 168,000 unit per capsuleIndication s:exocrine pancreatic insufficiency Take 1 capsule by mouth 3 (three) times a day with meals 45 capsule 1 025 2024 Discontinued(R eorder) Belbuca 750 mcg film buccal film 1 film Bucally every 12 hrs 30 days 025 2024 Discontinued traMADoL (ULTRAM) 50 mg tablet Take 1 tablet Oral three times per day for 30 days 025 2024 Discontinued methadone (DOLOPHINE) 10 mg tablet 025 2024 Discontinued(S top Taking at Discharge) morphine ER (MS CONTIN) 15 mg 12 hr tablet 1 tablet (15 mg total) every 12 hours 025 2024 Discontinued prochlorperazine (Compazine) 10 mg tabletIndications :Pancreatic adenocarcinoma (HCC) Take 1 tablet (10 mg total) by mouth every 6 (six) hours as needed for nausea or vomiting 120 tablet 3 025 2024 Discontinued(R eorder) diphenoxylate-atr opine (LOMOTIL) 2.5-0.025 mg per tabletIndications :diarrhea Take 1 tablet by mouth 4 (four) times a day as needed for diarrhea 90 tablet 025 2024 Discontinued(R eorder) Active Problems Problem Noted Date Diagnosed Date Dehydration 10/16/2024 Pancreatic adenocarcinoma 10/07/2024 Pancreatic mass 09/04/2024 Elevated liver function tests 09/04/2024 Intractable pain 02/25/2023 Dizziness 11/07/2022 Mixed anxiety and depressive disorder 06/21/2022 Assessment & Plan (06/21/2022 7:25 PM RETAIL ACCOUNT SPECIALIST): Worsening after of her mother in 04/2022. Feels more anxiety than depression. Admits panic attacks. Reluctant to start daily medication, don't want to feel trapped into taking medicine. Will Rx BuSpar as directed. Encouraged relaxation techniques such as deep breathing and guided imagery. Keep follow as scheduled, sooner if needed. Diarrhea 06/20/2022 Assessment & Plan (06/21/2022 7:16 PM RETAIL ACCOUNT SPECIALIST): Ongoing for approximately 1 week after finishing a course of cefdinir for UTI. No more urinary symptoms or abdominal pain. No acute findings on exam. Will order CDiff test. Advised on Bowel rest: push fluids, bland high fiber diet. Continue immodium if needed. Vulvovaginitis 06/20/2022 Assessment & Plan (06/21/2022 7:17 PM RETAIL ACCOUNT SPECIALIST): S/p cefdinir course for UTI. Denies discharge or genital lesions. exam deferred per pt request. Rxd Diflucan as directed. Use mild non-fragrant soaps/lotions. Recurrent UTI 06/08/2022 Assessment & Plan (06/08/2022 2:35 PM RETAIL ACCOUNT SPECIALIST): Currently on Abx for treatment. Patient to [...] 12/23/2021 Assessment & Plan (06/21/2022 7:12 PM RETAIL ACCOUNT SPECIALIST): BP stable in office today on current therapy. Continue current regimen and low salt diet. Stay hydrated. Assessment & Plan (06/08/2022 2:36 PM RETAIL ACCOUNT SPECIALIST): Chronic and mildly elevated. Goal < 130/80. [...] 12/23/2021 Assessment & Plan (06/08/2022 2:35 PM RETAIL ACCOUNT SPECIALIST): Chronic and stable. 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 Never 02/27/2023 Do you belong to any clubs o r organizations such as druze groups, unions, fraternal or athletic groups, or [...] place to sleep or slept in a chcf (including now)? No 02/27/2023 Personal Safety Answer Date Recorded Have you ever been in or are you currently in a harmful physical or emotional relationship or is someone making you feel afraid or unsafe? Denies 09/19/2024 Comments No Sex and Gender Information Value Date Recorded Sex Assigned at Not on file Legal Sex Female 6:30 PM RETAIL ACCOUNT SPECIALIST Gender Identity Not on file Sexual Orientation Not on file Last Filed Vital Signs Vital Sign Reading Time Taken Comments Blood Pressure 145/67 10/17/2024 10:45 AM CDT Pulse 68 10/17/2024 10:45 AM CDT Temperature 36.9 C (98.5 F) 10/17/2024 10:45 AM CDT Respiratory Rate 17 10/15/2024 10:2 4 AM CDT Oxygen Saturation 97% 10/17/2024 10: 45 AM CDT Inhaled Oxygen Concentration - - Weight 67.9 kg (149 lb 12.8 oz) 025 10:45 AM CDT Height 155.7 cm (5' 1.3) 10/14/2024 9:01 AM CDT Body Mass Index 28.03 10/14/2024 9:01 AM CDT Plan of Treatment Not on file Medical Devices Implanted Type Area Central Service Technician Device Identifier Shelf Expiration Date Model / Serial / Lot Conmed Chris Viabil 10mm X 6cm Shortwire [id number] - [id number] - [id number] Implanted:Qty: 1 on 09/06/2024 by David Brewer MD at [facility] Stent N/A: Bile Duct Conmed Chris 06/19/2027 [id number] / [id number] / [employer] Excela Low Porfile Power Port 8fr 1.6mm 1 Lumen [id number] - [id number] Implanted:Qty: 1 on 10/10/2024 at [facility] [employer] 05/07/2029 [id number] / / [id number] Procedures Procedure Name Priority Date/Time Associated Diagnosis Comments EGFR Routine 10/17/2024 10:06 AM CDT Pancreatic adenocarcinoma (HCC) DIFFERENTIAL AUTO Routine 10/17/2024 10:06 AM CDT Pancreatic adenocarcinoma (HCC) COMPREHENSIVE METABOLIC PANEL Routine 10:06 AM CDT Pancreatic adenocarcinoma (HCC) CBC WITH AUTO DIFFERENTIAL Routine 10/17 10:06 AM CDT Pancreatic adenocarcinoma (HCC) TSH STAT 10/14/2024 8:30 AM CDT Pancreatic adenocarcinoma (HCC) T4, FREE STAT 10/14/2024 8:30 AM CDT Pancreatic adenocarcinoma (HCC) EGFR STAT 10/14/2024 8:30 AM CDT Pancreatic [...] STAT 4:00 PM CDT Pancreatic adenocarcinoma (HCC) [id number] Routine 10/07/2024 3:52 PM CDT Pancreatic adenocarcinoma (HCC) POCT LIPID [...] from Last 3 Months Results * eGFR (10/17/2024 10:06 AM CDT) eGFR >90 >=60 mL/min/1. 73 m2 Comment: Interpretive Data [...] was last reviewed 2021. Testing performed by: [facility], [address] [place] [address] Blood 10/17/2024 10:0 6 AM CDT 10/17/2024 10:26 AM CDT Haven Cox MD LAB BLOOD ORDERABLES Gail l Result [facility] [address] [address] [place]. Department of Laboratories [place], [place] [id number] * Differential, auto (10/17/2024 10:06 AM CDT) [facility] Neutrophil abs 3.45 1.50 - 6.50 K/cumm Comment:Testing performed by : [facility], [address], [address] [place] [address] Imm gran abs 0.02 0.00 - 0.10 K/cumm ENRIQUE TORRES Comment:Testing performed by : [facility], [address], [address] [place] [address] Lymphocyte abs 1.10 0.80 - 3.30 K/cumm CERNER BJWCH Comment:Testing performed by : [facility], [facility], [address] [place] [address] Monocyte abs 0.28 0.20 - 0.80 K/cumm CERNER BJWCH Comment:Testing performed by : [facility], [facility], [address] [place] [address] Eosinophil abs 0.05 0.00 - 0.50 K/cumm CERNER BJWCH Comment:Testing performed by : [facility], [facility], [address] [place] [address] Basophil abs 0.01 0.00 - 0.10 K/cumm CERNER BJWCH Comment:Testing performed by : [facility], [facility], [address] [place] [address] Neutrophil pct 70.3 % CERNER BJWCH Comment: Interpretive Data Percent cell count reference ranges are not reported, since discordance with absolute values may lead to misinterpretation of CBC data. Current Interpretive Data was last revised on 2017. Testing performed by: [facility], [facility], [address] [place] [address] Imm gran pct 0.4 % CERNER BJWCH Comment: Interpretive Data Percent cell count reference ranges are not reported, since discordance with absolute values may lead to misinterpretation of CBC data. Current Interpretive Data was last revised on 2017. Testing performed by: [facility], [facility], [address] [place] [address] Lymphocyte pct 22.4 % CERNER BJWCH Comment: Interpretive Data Percent cell count reference ranges are not reported, since discordance with absolute values may lead to misinterpretation of CBC data. Current Interpretive Data was last revised on 2017. Testing performed by: [facility], [facility], [address] [place] [address] Monocyte pct 5.7 % CERNER BJWCH Comment: Interpretive Data Percent cell count reference ranges are not reported, since discordance with absolute values may lead to misinterpretation of CBC data. Current Interpretive Data was last revised on 2017. Testing performed by: [facility], [facility], [address] [place] [address] Eosinophil pct 1.0 % ENRIQUE TORRES Comment: Interpretive Data Percent cell count reference ranges are not reported, since discordance with absolute values may lead to misinterpretation of CBC data. Current Interpretive Data was last revised on 2017. Testing performed by: [facility] 2, [address] [place] [address] Basophil pct 0.2 % ENRIQUE TORRES Comment: Interpretive Data Percent cell count reference ranges are not reported, since discordance with absolute values may lead to misinterpretation of CBC data. Current Interpretive Data was last revised on 2017. Testing performed by: [facility] 2, [address] [place] [address] Blood 10/17/2024 10:0 6 AM CDT 10/17/2024 10:09 AM CDT [facility] MD LAB BLOOD ORDERABLES Gail l Result [facility] [address] [facility]. [place] [address] * (ABNORMAL) CBC with auto differential (10/17/2024 10:06 AM CDT) WBC 4.91 3.80 - 9.90 K/cumm Comment:Testing performed by : [facility], [facility], [address] [place] [address] Hgb 9.0(L) 11.9 - 15.5 g/dL ENRIQUE TORRES Comment:Testing performed by : [facility] 2, [address] [place] [address] Hct 28.8(L) 35.6 - 45.5 % ENRIQUE TORRES Comment:Testing performed by : [facility] 2, [address] [place] [address] Plt 202 150 - 400 K/cumm CERNER BJWCH Comment:Testing performed by : [facility], [facility], [address] [place] [address] MPV 9.2 9.1 - 12.3 fL CERNER BJWCH Comment:Testing performed by : [place] [address], [address] [place] [address] RBC 3.15(L) 3.90 - 5.20 M/cumm CERNER BJWCH Comment:Testing performed by : [facility], [facility], [address] [place] [address] MCV 91.4 81.3 - 96.4 fL CERNER BJWCH Comment:Testing performed by : [place] [address], [address] [place] [address] MCH 28.6 27.1 - 33.3 pg CERNER BJWCH Comment:Testing performed by : [facility], [facility], [address] [place] [address] MCHC 31.3(L) 32.3 - 35.7 g/dL CERNER BJWCH Comment:Testing performed by : [place] [address], [address] [place] [address] RDW CV 15.0(H) 11.1 - 14.9 % CERNER BJWCH Comment:Testing performed by : [facility] 2, [address] [place] [address] RDW SD 50.7(H) 35.7 - 48.1 fL CERNER BJWCH Comment:Testing performed by : [place] [address], [address] [place] [address] ANC Prelim 3.45 1.50 - 6.50 K/cumm CERNER BJWCH Comment: Interpretive Data The rapid ANC is a preliminary automated count and may vary from the final ANC (Neut Abs) reported in the WBC differential that follows. Current interpretive data was last revised 2024. Testing performed by: [facility], [address] [address], [address], [place], [place] [address] Blood 10/17/2024 10:0 6 AM CDT 10/17/2024 10:09 AM CDT Haven Cox MD LAB BLOOD ORDERABLES Gail l Result [facility] [address] [place] [address] * (ABNORMAL) Comprehensive metabolic panel (10/17/2024 10:06 AM CDT) Sodium 139 135 - 145 mmol/L Comment:Testing performed by : [facility], [address] [place] [address] Potassium, pl 4.0 3.3 - 4.9 mmol/L ENRIQUE TORRES Comment:Testing performed by : [facility], [address] [place] [address] Chloride 104 97 - 110 mmol/L ENRIQUE TORRES Comment:Testing performed by : [facility], [address] [place] [address] CO2 28 22 - 32 mmol/L ENRIQUE TORRES Comment:Testing performed by : [facility], [address] [place] [address] Anion gap 7 2 - 15 mmol/L ENRIQUE TORRES Comment:Testing performed by : [facility], [address] [place] [address] BUN 15 6 - 25 mg/dL ENRIQUE TORRES Comment:Testing performed by : [facility], [address] [place] [address] Creatinine 0.70 0.60 - 1.10 mg/dL ENRIQUE TORRES Comment:Testing performed by : [facility], [address] [place] [address] Glucose 90 70 - 199 mg/dL ENRIQUE TORRES Comment: Interpretive Data Fasting glucose >/= 126 [...] was last revised 2022. Testing performed by: [facility], [address], [place] [address] Calcium 8.8 8.5 - 10.3 mg/dL CERNER BJWCH Comment:Testing performed by : [facility], [address], [place] [address] Bilirubin, total 0.6 0.1 - 1.2 mg/dL CERNER BJWCH Comment:Testing performed by : [facility], [address], [place] [address] Protein, pl 5.8(L) 6.5 - 8.5 g/dL CERNER BJWCH Comment:Testing performed by : [facility], [address], [place] [address] Albumin 3.3(L) 3.5 - 5.0 g/dL CERNER BJWCH Comment:Testing performed by : [facility], [address], [place] [address] Alk phos 325(H) 40 - 130 Units/L CERNER BJWCH Comment:Testing performed by : [facility], [address], [place] [address] ALT 29 7 - 45 Units/L CERNER BJWCH Comment:Testing performed by : [facility], [address], [place] [address] AST 27 10 - 45 Units/L CERNER BJWCH Comment:Testing performed by : [facility], [address], [place] [address] Blood 10/17/2024 10:0 6 AM CDT 10/17/2024 10:26 AM CDT Haven Cox MD LAB BLOOD ORDERABLES Gail l Result Performing Organization Address [facility] Co de Phone Number ENRIQUE BRADFORDCH [address] [address] * eGFR (10/14/2024 8:30 AM CDT) eGFR [...] was last reviewed 2021. Testing performed by: [facility], [address] [facility], [place] [address] Blood 10/14/2024 8:30 AM CDT 10/14/2024 8:54 AM CDT Haven Cox MD LAB BLOOD ORDERABLES Gail l Result Performing Organization Address [facility] Co de Phone Number ENRIQUE BETANCOURTCH [address] [address] * Differential, auto (10/14/2024 8:30 AM CDT) Neutrophil abs 3.00 1.50 - 6.50 K/cumm Comment:Testing performed by : [facility], [facility], [address] [place] [address] Imm gran abs 0.00 0.00 - 0.10 K/cumm CERNER BJWCH Comment:Testing performed by : [facility], [facility], [address] [place] [address] Lymphocyte abs 1.24 0.80 - 3.30 K/cumm CERNER BJWCH Comment:Testing performed by : [facility], [facility], [address] [place] [address] Monocyte abs 0.80 0.20 - 0.80 K/cumm CERNER BJWCH Comment:Testing performed by : [facility], [facility], [address] [place] [address] Eosinophil abs 0.12 0.00 - 0.50 K/cumm CERNER BJWCH Comment:Testing performed by : [facility], [facility], [address] [place] [address] Basophil abs 0.03 0.00 - 0.10 K/cumm CERNER BJWCH Comment:Testing performed by : [facility], [facility], [address] [place] [address] Neutrophil pct 57.8 % CERNER BJWCH Comment: Interpretive Data Percent cell count reference ranges are not reported, since discordance with absolute values may lead to misinterpretation of CBC data. Current Interpretive Data was last revised on 2017. Testing performed by: [facility], [facility], [address] [place] [address] Imm gran pct 0.0 % CERNER BJWCH Comment: Interpretive Data Percent cell count reference ranges are not reported, since discordance with absolute values may lead to misinterpretation of CBC data. Current Interpretive Data was last revised on 2017. Testing performed by: [facility], [facility], [address] [place] [address] Lymphocyte pct 23.9 % CERNER BJWCH Comment: Interpretive Data Percent cell count reference ranges are not reported, since discordance with absolute values may lead to misinterpretation of CBC data. Current Interpretive Data was last revised on 2017. Testing performed by: [facility], [facility], [address] [place] [address] Monocyte pct 15.4 % ENRIQUE TORRES Comment: Interpretive Data Percent cell count reference ranges are not reported, since discordance with absolute values may lead to misinterpretation of CBC data. Current Interpretive Data was last revised on 2017. Testing performed by: [facility], [facility], [address] [place] [address] Eosinophil pct 2.3 % ENRIQUE TORRES Comment: Interpretive Data Percent cell count reference ranges are not reported, since discordance with absolute values may lead to misinterpretation of CBC data. Current Interpretive Data was last revised on 2017. Testing performed by: [facility] 2, [address] [place] [address] Basophil pct 0.6 % ENRIQUE TORRES Comment: Interpretive Data Percent cell count reference ranges are not reported, since discordance with absolute values may lead to misinterpretation of CBC data. Current Interpretive Data was last revised on 2017. Testing performed by: [facility] 2, [address] [place] [address] Blood 10/14/2024 8:30 AM CDT 10/14/2024 8:33 AM CDT [facility]Maurisio Cox MD LAB BLOOD ORDERABLES Gail l Result ENRIQUE BJWCH [address] [facility]. [place] [address] * (ABNORMAL) CBC with auto differential (10/14/2024 8:30 AM CDT) WBC 5.19 3.80 - 9.90 K/cumm Comment:Testing performed by : [facility] 2, [address] [place] [address] Hgb 8.8(L) 11.9 - 15.5 g/dL CERNER BJWCH Comment:Testing performed by : [place] [address], [address], [place] [address] Hct 27.5(L) 35.6 - 45.5 % CERNER BJWCH Comment:Testing performed by : [place] [address], [address], [place] [address] Plt 209 150 - 400 K/cumm CERNER BJWCH Comment:Testing performed by : [place] [address], [address], [place] [address] MPV 9.7 9.1 - 12.3 fL CERNER BJWCH Comment:Testing performed by : [place] [address], [place] [address] RBC 3.04(L) 3.90 - 5.20 M/cumm CERNER BJWCH Comment:Testing performed by : [place] [address], [place], [place] [address] MCV 90.5 81.3 - 96.4 fL CERNER BJWCH Comment:Testing performed by : [place] [address], [address] [place] [address] MCH 28.9 27.1 - 33.3 pg CERNER BJWCH Comment:Testing performed by : [place] [address], [address] [place], [place] [address] MCHC 32.0(L) 32.3 - 35.7 g/dL CERNER BJWCH Comment:Testing performed by : [place] [address], [address], [place] [address] RDW CV 14.4 11.1 - 14.9 % CERNER BJWCH Comment:Testing performed by : [place] [address], [address], [place] [address] RDW SD 47.6 35.7 - 48.1 fL CERNER BJWCH Comment:Testing performed by : [place] [address], [address] [place] [address] ANC Prelim 3.00 1.50 - 6.50 K/cumm ENRIQUE TORRES Comment: Interpretive Data The rapid ANC is a preliminary automated count and may vary from the final ANC (Neut Abs) reported in the WBC differential that follows. Current interpretive data was last revised 2024. Testing performed by: [facility], [facility], [address] [place] [address] Blood 10/14/2024 8:30 AM CDT 10/14/2024 8:33 AM CDT Haven Cox MD LAB BLOOD ORDERABLES Gail l Result Performing Organization Address [facility] de Phone Number [facility] [address] [facility] [place] [address] * (ABNORMAL) Cancer antigen 19-9 (10/14/2024 8:30 AM CDT) CA 19-9 ag 46.8(H) 0.0 - 35.0 units/mL Comment: Interpretive Data The Sree CA 19-9 assay procedure was used. Results from different manufacturers or methods may not be comparable. Serial testing should be performed using the same method. Testing performed by: [facility], [facility], [place]., [address] Blood 10/14/2024 8:30 AM CDT 10/14/2024 10:46 AM CDT Haven Cox MD LAB BLOOD ORDERABLES Gail l Result Performing Organization Address [facility]/ZIP Co de Phone Number [facility] [address] [place] [address] * TSH (10/14/2024 8:30 AM CDT) Thyroid Stimulating Hormone 0.52 0.30 - 4.20 mcIUnit/mL Comment:Testing performed by : [facility], [address] [place] [address] Blood 10/14/2024 8:30 AM CDT 10/14/2024 8:54 AM CDT [facility] MD LAB BLOOD ORDERABLES Gail l Result Performing Organization Address [facility] de Phone Number [facility] BJWCH [address] [place] [address] * (ABNORMAL) T4, free (10/14/2024 8:30 AM CDT) Pathologist [facility] [place] Free T4 1.95(H) 0.90 - 1.70 ng/dL Comment:Testing performed by : [facility], [address] [place], [place] [address] Blood 10/14/2024 8:30 AM CDT 10/14/2024 8:54 AM CDT [facility] MD LAB BLOOD ORDERABLES Gail l Result Performing Organization Address [facility] de Phone Number [facility] BJWCH [address] [place] [address] * (ABNORMAL) Comprehensive metabolic panel (10/14/2024 8:30 AM CDT) Pathologist [facility] [place] Sodium 138 135 - 145 mmol/L Comment:Testing performed by : [facility], [address] [place] [address] Potassium, pl 3.7 3.3 - 4.9 mmol/L ENRIQUE BRADFORD Comment:Testing performed by : [facility], [address], [place] [address] Chloride 103 97 - 110 mmol/L ENRIQUE BRADFORD Comment:Testing performed by : [facility], [address] [place] [address] CO2 23 22 - 32 mmol/L CERNER BJWCH Comment:Testing performed by : [facility], [address], [place] [address] Anion gap 12 2 - 15 mmol/L CERNER BJWCH Comment:Testing performed by : [facility], [address], [place] [address] BUN 14 6 - 25 mg/dL CERNER BJWCH Comment:Testing performed by : [facility], [address], [place] [address] Creatinine 0.74 0.60 - 1.10 mg/dL CERNER BJWCH Comment:Testing performed by : [facility], [address], [place] [address] Glucose 94 70 - 199 mg/dL CERNER [...] was last revised 2022. Testing performed by: [facility], [address], [place] [address] Calcium 9.1 8.5 - 10.3 mg/dL CERNER BJWCH Comment:Testing performed by : [facility], [address], [place] [address] Bilirubin, total 0.6 0.1 - 1.2 mg/dL CERNER BJWCH Comment:Testing performed by : [facility], [address], [place] [address] Protein, pl 5.7(L) 6.5 - 8.5 g/dL CERNER BJWCH Comment:Testing performed by : [facility], [address], [place] [address] Albumin 3.4(L) 3.5 - 5.0 g/dL CERNER BJWCH Comment:Testing performed by : [facility], [address], [place] [address] Alk phos 387(H) 40 - 130 Units/L CERNER BJWCH Comment:Testing performed by : [facility], [address], [place] [address] ALT 37 7 - 45 Units/L CERNER BJWCH Comment:Testing performed by : [facility], [address], [place] [address] AST 22 10 - 45 Units/L CERNER BJWCH Comment:Testing performed by : [facility], [address], [place] [address] Blood 10/14/2024 8:30 AM CDT 10/14/2024 8:54 AM CDT [facility]Maurisio Cox MD LAB BLOOD ORDERABLES Gail l Result ENRIQUE TORRES [address] [place] [address] * IR Port Placement Chest > 5 Years (10/10/2024 10:16 AM CDT) Anatomical Region Laterality Modality Chest N/A X-Ray Angiograph y 10/10/2024 10:3 1 AM CDT Impressions 10/10/2024 10:31 AM CDT Successful chest wall port placement. PLAN: The catheter is ready for immediate use. Please note that a power injectable port was placed. When treatment is completed, removal can be scheduled by calling [facility] - [phone] [facility] - [phone] Electronically signed by: Feliciano Martinez PA-C Narrative [...] was obtained. Prior to beginning the procedure, [place] Protocol was used to confirm the patient's [...] was obtained. Prior to beginning the procedure, [place] Protocol was used to confirm the patient's [...] completed, removal can be scheduled by calling [facility] - [phone] [facility] - [phone] Electronically signed by: Feliciano Martinez PA-C us [facility]Maurisio Cox MD IMG IR PROCEDURES Final R [...] obtained. The study was interpreted on the Boq[employer] workstation. The mean liver SUV (reported for manager quality compliance purposes) is 1.7. The total scanned area [...] obtained. The study was interpreted on the [employer] workstation. The mean liver SUV (reported for manager quality compliance purposes) is 1.7. The total scanned area [...] it. Electronically signed by: Johan Krishna MD [facility]Maurisio Cox MD IM PET PROCEDURES Final Result [...] was last reviewed 2021. Testing performed by: [facility], [address] [place] [address] Blood 10/07/2024 4:00 PM CDT 10/07/2024 4:36 PM CDT [facility]Maurisio Cox MD LAB BLOOD ORDERABLES Gail l Result [facility] [address] [place] [address] * (ABNORMAL) Differential, auto (10/07/2024 4:00 PM CDT) Neutrophil abs 4.52 1.50 - 6.50 K/cumm Comment:Testing performed by : [facility], [facility], [address] [place] [address] Imm gran abs 0.01 0.00 - 0.10 K/cumm ENRIQUE TORRES Comment:Testing performed by : [facility] 2, [address] [place] [address] Lymphocyte abs 0.48(L) 0.80 - 3.30 K/cumm ENRIQUE TORRES Comment:Testing performed by : [facility] 2, [address] [place] [address] Monocyte abs 0.37 0.20 - 0.80 K/cumm ENRIQUE TORRES Comment:Testing performed by : [facility] 2, [address] [place] [address] Eosinophil abs 0.01 0.00 - 0.50 K/cumm ENRIQUE TORRES Comment:Testing performed by : [facility] 2, [address] [place] [address] Basophil abs 0.01 0.00 - 0.10 K/cumm CERNER BJWCH Comment:Testing performed by : [facility], [facility], [address] [place] [address] Neutrophil pct 83.6 % CERNER BJWCH Comment: Interpretive Data Percent cell count reference ranges are not reported, since discordance with absolute values may lead to misinterpretation of CBC data. Current Interpretive Data was last revised on 2017. Testing performed by: [facility], [facility], [address] [place] [address] Imm gran pct 0.2 % CERNER BJWCH Comment: Interpretive Data Percent cell count reference ranges are not reported, since discordance with absolute values may lead to misinterpretation of CBC data. Current Interpretive Data was last revised on 2017. Testing performed by: [facility], [facility], [address] [place] [address] Lymphocyte pct 8.9 % CERNER BJWCH Comment: Interpretive Data Percent cell count reference ranges are not reported, since discordance with absolute values may lead to misinterpretation of CBC data. Current Interpretive Data was last revised on 2017. Testing performed by: [facility], [facility], [address] [place] [address] Monocyte pct 6.9 % CERNER BJWCH Comment: Interpretive Data Percent cell count reference ranges are not reported, since discordance with absolute values may lead to misinterpretation of CBC data. Current Interpretive Data was last revised on 2017. Testing performed by: [facility], [facility], [address] [place] [address] Eosinophil pct 0.2 % CERNER BJWCH Comment: Interpretive Data Percent cell count reference ranges are not reported, since discordance with absolute values may lead to misinterpretation of CBC data. Current Interpretive Data was last revised on 2017. Testing performed by: [facility], [facility], [address] [place] [address] Basophil pct 0.2 % ENRIQUE TORRES Comment: Interpretive Data Percent cell count reference ranges are not reported, since discordance with absolute values may lead to misinterpretation of CBC data. Current Interpretive Data was last revised on 2017. Testing performed by: [facility] 2, [address] [place] [address] Blood 10/07/2024 4:00 PM CDT 10/07/2024 4:01 PM CDT us Haven Cox MD LAB BLOOD ORDERABLES Gail l Result [facility] [address] [facility]. [place] [address] * (ABNORMAL) CBC with auto differential (10/07/2024 4:00 PM CDT) WBC 5.40 3.80 - 9.90 K/cumm Comment:Testing performed by : [facility], [facility], [address] [place] [address] Hgb 9.0(L) 11.9 - 15.5 g/dL ENRIQUE TORRES Comment:Testing performed by : [facility] 2, [address] [place] [address] Hct 28.7(L) 35.6 - 45.5 % ENRIQUE TORRES Comment:Testing performed by : [facility] 2, [address] [place] [address] Plt 185 150 - 400 K/cumm ENRIQUE TORRES Comment:Testing performed by : [place] [address], [address] [place] [address] MPV 9.1 9.1 - 12.3 fL ENRIQUE TORRES Comment:Testing performed by : [facility] 2, [address] [place] [address] RBC 3.06(L) 3.90 - 5.20 M/cumm ENRIQUE TORRES Comment:Testing performed by : [facility], [facility], [address] [place] [address] MCV 93.8 81.3 - 96.4 fL [facility] Comment:Testing performed by : [facility] 2, [address] [place] [address] MCH 29.4 27.1 - 33.3 pg ENRIQUE BRADFORD Comment:Testing performed by : [facility] 2, [address] [place] [address] MCHC 31.4(L) 32.3 - 35.7 g/dL [facility] Comment:Testing performed by : [facility] 2, [address] [place] [address] RDW CV 15.4(H) 11.1 - 14.9 % EN[facility]QUE [facility] Comment:Testing performed by : [place] [address], [address] [place] [address] RDW SD 53.6(H) 35.7 - 48.1 fL EN[facility] Comment:Testing performed by : [place] [address], [address] [place] [address] ANC Prelim 4.52 1.50 - 6.50 K/cumm EN[facility] Comment: Interpretive Data The rapid ANC is a preliminary automated count and may vary from the final ANC (Neut Abs) reported in the WBC differential that follows. Current interpretive data was last revised 2024. Testing performed by: [facility] 2, [address] [place] [address] Blood 10/07/2024 4:00 PM CDT 10/07/2024 4:01 PM CDT us Ibeth'Maurisio Cox MD LAB BLOOD ORDERABLES Gail radha Result [facility] [address] [facility] [employer] [place], [place] [phone] * (ABNORMAL) Cancer antigen 19-9 (10/07/2024 4:00 PM CDT) CA 19-9 ag 79.3(H) 0.0 - 35.0 units/mL Comment: Interpretive Data The Sree CA 19-9 assay procedure was used. Results from different manufacturers or methods may not be comparable. Serial testing should be performed using the same method. Testing performed by: [facility], [address] [place] [address]., [address] Blood 10/07/2024 4:00 PM CDT 10/07/2024 6:08 PM CDT us Haven Cox MD LAB BLOOD ORDERABLES Gail l Result [facility] [address] [facility]. [place] [address] * (ABNORMAL) Protime-INR (10/07/2024 4:00 PM CDT) PT 14.2(H) 9.7 - 13.0 sec Comment:Testing performed by : [facility], [address] [facility] [place] [address] INR 1.31(H) 0.90 - 1.20 ENRIQUE BRADFORDCH Comment: Interpretive data Oral anticoagulant therapeutic ranges: Venous thromboembolism prophylaxis or treatment: 2.0-3.0 CARDIOLOGY Standard range: 2.0-3.0 High-intensity range: 2.5-3.5 Refer to indication-specific guidelines for appropriate target ranges for prosthetic heart valve replacement. Current interpretive data was last revised on 2019. Testing performed by: [facility], [address] [facility] [place] [address] Blood 10/07/2024 4:00 PM CDT 10/07/2024 4:36 PM CDT us Haven Cox MD LAB BLOOD ORDERABLES Gail l Result [facility] [address] [address] [employer]. Department of Laboratories [place], [place] [id number] * (ABNORMAL) Comprehensive metabolic panel (10/07/2024 4:00 PM CDT) Sodium 141 135 - 145 mmol/L Comment:Testing performed by : [facility], [address], [place] [address] Potassium, pl 4.2 3.3 - 4.9 mmol/L CERNER BJW Comment:Testing performed by : [facility], [address], [place] [address] Chloride 105 97 - 110 mmol/L CERNER BJWCH Comment:Testing performed by : [facility], [address], [place] [address] CO2 26 22 - 32 mmol/L CERNER BJWCH Comment:Testing performed by : [facility], [address], [place] [address] Anion gap 11 2 - 15 mmol/L CERNER BJWCH Comment:Testing performed by : [facility], [address], [place] [address] BUN 13 6 - 25 mg/dL CERNER BJWCH Comment:Testing performed by : [facility], [address], [place] [address] Creatinine 0.71 0.60 - 1.10 mg/dL CERNER BJWCH Comment:Testing performed by : [facility], [address], [place] [address] Glucose 106 70 - 199 mg/dL CERNER [...] was last revised 2022. Testing performed by: [facility], [address], [place] [address] Calcium 9.6 8.5 - 10.3 mg/dL CERNER BJWCH Comment:Testing performed by : [facility], [address], [place] [address] Bilirubin, total 1.8(H) 0.1 - 1.2 mg/dL CERNER BJWCH Comment:Testing performed by : [facility], [address], [place] [address] Protein, pl 6.2(L) 6.5 - 8.5 g/dL CERNER BJWCH Comment:Testing performed by : [facility], [address], [place] [address] Albumin 3.6 3.5 - 5.0 g/dL CERNER BJWCH Comment:Testing performed by : [facility], [address], [place] [address] Alk phos 794(H) 40 - 130 Units/L CERNER BJWCH Comment:Testing performed by : [facility], [address], [place] [address] ALT 107(H) 7 - 45 Units/L CERNER BJWCH Comment:Testing performed by : [facility], [address], [place] [address] AST 240(H) 10 - 45 Units/L CERNER BJW[facility] Comment:Testing performed by : [facility], [address], [place] [address] Blood 10/07/2024 4:00 PM CDT 10/07/2024 4:36 PM CDT Ibeth'Maurisio Cox MD LAB BLOOD ORDERABLES Gail garcia Result [facility] [address] [place] [address] * [id number] (10/07/2024 3:52 PM CDT) MSI-HIGH NOT DETECTED 10/14/2024 7:[address] [facility] TMB 4.75 mut/Mb 10/14/2024 7:[address] [facility] HRD Not detected 10/14/2024 7:[address] [facility] TUMOR FRACTION 0.4% 10/14/2024 7:[address] [facility] Chip TET2 Q644* (0.5%) 10/14/2024 7:[address] [facility] Blood specimen (specimen) Venous blood specimen / Unknown 10/07/2024 3:52 PM CDT 10/09/2024 11:07 AM CDT Narrative This result has genomic variants that were not included in this document. Haven Cox MD LAB GENETIC TESTING Final Result [facility] [address] [phone] [facility] [address] [place] [address] * POCT lipid panel (09/27/2024 1:34 PM [...] Biopsy) 09/19/2024 1:07 PM CDT Narrative PATHOLOGY [facility] - 09/20/2024 2:24 PM CDT EPIC results best viewed via link to PDF [facility] [place] [address] Note to Patients: This report may contain [...] Gender: F : 1950 (Age: 73) Address: [address] [place] [address] Hospital #: [id number] Taken:09/19/2024 Received:09/19/2024 Reported: 09/20/2024 Patient Type: [facility] ED Service: Emergency Location: [facility] ED Physician(s): Puma Wagner M.D. Natasha Leah Goldie Leigh, MD Diagnosis: Pancreas, neck, mass, fine needle biopsy - Rare atypical glands/single cells and focal perineural invasion, compatible with invasive pancreatic adenocarcinoma - Scant tumor cellularity; likely insufficient for further molecular testing [facility]/09/20/2024 14:24 By this signature, I attest that [...] cm in aggregate). Labeled A1. Jar 0. elsw/09/19/2024 15:19 PA(s): Evelyn Cunningham By this signature, I attest that the above diagnosis is based upon my personal examination of the slides(and/or other material). Addenda/Procedures The performance characteristics of some immunohistochemical stains, fluorescence in-situ hybridization tests and immunophenotyping by flow cytometry cited in this report (if any) were determined by the Surgical Pathology and Flow Cytometry Departments at [facility] as part of an ongoing coding quality analyst program and in compliance with federally mandated [...] Surgical Pathology and Flow Cytometry Departments of [facility]. It has not been cleared or approved by the U. S. Food and Drug Administration. IMAGES AND SCANNED DOCUMENTS, IF INCLUDED, ONLY VIEWABLE IN PDF VERSION OF REPORT us David Brewer MD LAB PATHOLOGY ORDERABLES Fi nal Result PATHOLOGY [facility] 3rd Floor [place], [place] [phone] * Upper EUS (09/19/2024 12:32 PM CDT) Anatomical Region Laterality Modality Other Narrative Procedure Note David Brewer MD - 09/19/2024 12:32 PM CDT GI ENDOSCOPY [facility] Patient Name: Susannah Goncalves Procedure Date: 09/19/2024 12:32 PM Date of : 1950 Admit Type: Outpatient Age: 73 Gender: Female Attending MD: David Brewer M.D. Room: [facility] ENDOSCOPY ROOM 1 Note Status: Finalized Procedure: Upper EUS Indications: Suspected mass in pancreas on CT scan; h/oPanreatic head/neck mass with biliary obstruction s/pEUS/ERCP 09/06/2024 with placement of fully covered metal biliary stent and FNB with atypical pathology, not definitive for malignancy. Here for repeat biopsy attempt. Referring MD: Daisy Mercado M.D., Leonidas Rubio M.D. Providers: David K. Brewer, M.D. Medicines: Monitored Anesthesia Care Complications: No [...] consent was obtained.The Olympuscurved linear array therapeutic [id number] was introduced through the mouth, and advanced tothe second part of duodenum The GIF [id number] endoscope was introduced through the mouth, and [...] Three passes were madewith the 22 gauge ViralNinjas needle using a transgastric approach. A stylet [...] following this procedure please call my officeat [phone] ([phone]) to speak to my nurses. After hours and evenings please call [phone] speak to the GI fellow branch controller. Please tell themthat Dr. Brewer did your procedure and that your were instructed to have the fellow call me or thephysician covering for me to discuss the management of your condition. If you have an urgent problem, please goto the nearest emergency room and have the ER doctorcall my office during the day or [facility] transfer ([phone]) center after hours and weekends to arrange admission or transfer to our facility. - Call my nurse Arlyn Segovia RN in the GI office at [phone] for your final pathology results in 7 [...] using the same method. Testing performed by: [facility], [address] [place] [address]., [address] Blood 09/17/2024 10:3 2 AM CDT 09/17/2024 7:30 PM CDT Ana RODRIGUES LAB BLOOD ORDERABLES Gail radha Result [facility] [id number] [facility]. [place] [address] * (ABNORMAL) CEA (09/17/2024 10:32 AM CDT) CEA 5.2(H) <=5.0 ng/mL Comment: Interpretive Data Reference Range: Non-Smokers: < or = 3.0 ng/mL Some Smokers may have elevated levels, usually < 5.0 ng/mL The Sree CEA assay procedure was used. Results from different manufacturers or methods may not be comparable. Serial testing should be performed using the same method. Testing performed by: [facility], [address] [place] [address]., [address] Blood 09/17/2024 10:3 2 AM CDT 09/17/2024 7:30 PM CDT us Ana RODRIGUES LAB BLOOD ORDERABLES Gail garcia Result [facility] [address] [address] [place] [address] * CT Chest W and Abdomen Pelvis [...] Biliary Duct (09/06/2024 1:42 PM CDT) Narrative [facility] - 09/06/2024 1:53 PM CDT The images from this study are not interpreted by Radiology. Please refer to the physician's procedure / OR operative note. David Brewer MD IMG FLUOROSCOPY PROCEDURES Final Result [facility] * Surgical pathology (09/06/2024 1:25 PM CDT) Lymph node, needle biopsy 09/06/2024 1:25 PM CDT 09/10/2024 11:26 AM CDT Narrative 09/11/2024 3:[address] PM [address]T [address] [address] Tele: Roxana Gordon MD - Preprint Analyst Note to Patients: This report may contain [...] PATHOLOGY REPORT Patient Name: SUSANNAH GONCALVES Address: [address] [place] [address], [place] [address] Gender: F : 1950 (Age: 73) Service: Gastro Location: [facility], Hospital #: [id number] Patient Type: [facility] Taken: 09/06/2024 Received 09/10/2024 Reported: 09/11/2024 Physician(s): Puma Wagner MD Jason E. Barnett, M.D. DIAGNOSIS: Pancreas, head, fine needle biopsies: - Focal atypical glands (see description) smo/09/11/2024 15:14 Examining Pathologist: Alek Flowers M.D. Report [...] filtered and submitted entirely in cassette A1. [facility] MICROSCOPIC DESCRIPTION: Microscopic examination shows multiple fragments of pancreatic parenchyma. There are focal slightly irregular glands with minimal nuclear atypia. An immunostain for p53 shows wild type staining in these glands. There is no definitive malignancy identified. Clinical correlation and follow-up is needed. Clerical Data Follows A; 82448, 36883, 55917 <CR>, 04133 REPORT IMAGES AND/OR SCANNED DOCUMENTS ONLY VIEWABLE IN PDF FORMAT The immunohistochemical test(s) cited in this report, if any, was developed and its performance characteristics determined by [facility]. It has not been cleared or approved by the U.S. Food and Drug Administration. The FDA has determined that such clearance or approval is not necessary. This test is used for clinical purposes. It should not be regarded as investigational or for research. [facility] is certified under the Clinical Laboratory [...] part or completely in the following laboratories: [facility], [facility] [place], [place] [address] [place] [address], [address] [place] [address]. us David Brewer MD LAB PATHOLOGY ORDERABLES Fi nal Result * ERCP (09/06/2024 1:03 PM CDT) Anatomical Region Laterality Modality Other Narrative Procedure Note David Brewer MD - 09/06/2024 1:03 PM CDT ENDOSCOPY LAB Patient Name: Susannah Goncalves Procedure Date: 09/06/2024 1:03 PM Admit Type: Outpatient Room: [facility] Date of : 1950 Instrument Name: [id number] [...] The patienttolerated the procedure well. Findings: The cavalry scout film was normal. The esophagus was successfully [...] following this procedure please call my officeat [phone] ([phone]) to speak to my nurses. After hours and evenings please call [phone] speak to the GI fellow branch controller. Please tell themthat Dr. Brewer did your procedure and that your were instructed to have the fellow call me or thephysician covering for me to discuss the management of your condition. If you have an urgent problem, please goto the nearest emergency room and have the ER doctorcall my office during the day or [facility] transfer ([phone]) center after hours and weekends to arrange [...] 09/06/2024 1:02 PM Admit Type: Outpatient Room: [facility] Date of : 1950 Instrument Name: [id number] [...] following this procedure please call my officeat [phone] ([phone]) to speak to my nurses. After hours and evenings please call [phone] speak to the GI fellow branch controller. Please tell diamondat Dr. Brewer did your procedure and that your were instructed to have the fellow call me or thephysician covering for me to discuss the management of your condition. If you have an urgent problem, please goto the nearest emergency room and have the ER doctorcall my office during the day or [facility] transfer ([phone]) center after hours and weekends to arrange admission or transfer to our facility. - Call my nurse Arlyn Segovia RN in the GI office at [phone] for your final results in 7 days. [...] - 0.3 mg/dL [facility] Protein, pl 5.5(L) 6.5 - 8.5 g/dL [facility] Albumin 3.0(L) 3.5 - 5.0 g/dL [facility] Alk phos 1,250(H) 40 - 130 Units/L [facility] ALT 143(H) 7 - 45 Units/L [facility] AST 190(H) 10 - 45 Units/L [facility] Blood 09/06/2024 10:5 0 AM CDT 09/06/2024 10:50 AM CDT Narrative [facility] - 09/06/2024 11:32 AM CDT STAT pre procedure lab same day us Geoffrey Shaver MD LAB BLOOD ORDERABLES Final Result [facility] [address] [place] [address] * CT Body Outside Consult (09/05/2024 1:04 [...] images may or may not represent the blackfeet source data set and thus may contain changes that may lower the accuracy of this second-opinion interpretation. Electronically signed by: Mickey Martinez M.D. Narrative 09/05/2024 2:33 PM CDT EXAMINATION: RADIOLOGY CONSULTATION ON OUTSIDE IMAGING STUDY STUDY INITIALLY PERFORMED: 08/28/2024 at [facility]. TYPE OF STUDY: Multiple CT images of [...] 08/28/2024 at [facility]. TYPE OF STUDY: Multiple CT images of [...] images may or may not represent the blackfeet source data set and thus may contain changes that may lower the accuracy of this second-opinion interpretation. Electronically signed by: Mickey Martinez M.D. David Brewer MD IM CT PROCEDURES Final Res ult from Last 3 Months Insurance [facility] MEDICARE ADVANTAGE Advance Directives For more information, please contact: [phone] * Full Code (Latest Code Status on [...] 2:00 AM 11/08/2022 7:29 PM Care Teams Dolly Pusher Relationship Specialty Start Date End Date Leonidas Rubio MD [address] [place] [address] PCP - General Family Medicine 09/05/24 Arianna Persaud PA [address] [place] [address] Physician Nurse 08/29/24 David Brewer MD [address] [place] [address] Referring Physician Gastroenterology 09/23/24 Haven Cox MD [address] [place] [address] Consulting Physician Medical Oncology 09/23/24 Daisy Mercado MD [address] [facility] [address]108[address]19 [place] [address] Consulting Physician General Surgery 09/23/24
--- OUTSIDE RECORDS SUMMARY | 2024-10-19 22:51 | XMS_ITS | Clinical Summary ---
Author Organization [facility] Address [address] [place] [address] Phone Care Team Providers Care Culled Fruit Packer Name Role Phone Linette Yepez MD Primary Care Provider [phone] Allergies Active Allergy Reactions Criticality Noted Date [...] mg by mouth 2 times daily. rx [id number] Active NIFEdipine CR (PROCARDIA-XL) 30 MG TABLET SR 24 HR Take 30 mg by mouth daily. rx [id number] Active Buprenorphine HCl (Belbuca) 600 MCG FILM Take 1 Film by mouth 2 times daily. rx [id number] Active hydrOXYzine (ATARAX) 25 MG Tablet Take 25 mg by mouth 3 times daily as needed for Itching or Nausea (vomiting). rx [id number] Active famotidine (PEPCID) 20 MG Tablet Take 20 mg by mouth daily. rx [id number] Active traMADol (ULTRAM) 50 MG Tablet take [...] Department Care Team Description 08/09/2024 Results [facility] [place] [address] [place] [address] Norma Calrk, CIGAR HEAD PERFORATOR, COMPOUNDING AND FINISHING SUPERVISOR POCT UA AUTOMATED W/O MICRO, CULTURE, URINE 08/07/2024 1:20 PM CDT [facility]gent [facility] [address] [place] [address] Amrita Vee APRN, LORETTA Diarrhea, unspecified [...] CULTURE, URINE (08/07/2024 1:53 PM CDT) Pathologist [facility] CULTURE RESULTS Mixed Growth of One or More Distal Urethral Contaminants 08/08/2024 11:53 PM CDT [facility] Culture URINE SPECIMEN / Unknown Non-Phlebotomy Collection / Unknown 08/07/2024 1:53 PM CDT 08/07/2024 1:53 PM CDT us Amrita Vee APRN, CNP MICROBIOLOGY - GENERAL ORDERABLES Final Result [facility] [address] [place] [address], [place] * POCT UA AUTOMATED W/O MICRO [...] 1:31 PM CDT us Amrita Vee APRN, COMPOUNDING AND FINISHING SUPERVISOR POINT OF CARE T CHRISSY (MANUAL) Final Result from Last 3 Months Insurance MEDICARE [facility] Directives * Full Code (Latest Code Status on File) Date Activated Date Inactivated Comments 12/27/2023 9:36 AM Care Teams Culled Fruit Packer Relationship Specialty Start Date End Date Linette Yepez MD [address] [facility] [address] [place] [id number] PCP - General Family Medicine 12/08/23
--- OUTSIDE RECORDS SUMMARY | 2024-10-19 22:51 | XMS_ITS | Clinical Summary ---
Author Organization [email or web address] Address [address] [place] [address] Care Team Providers Care Electrical Laboratory Technician Name Role Phone Aury Joseph RN Unavailable [phone] Dar St[place] MD Unavailable [phone] Linette Yepez MD Primary Care Provider + Source Comments [facility],non-owned Affiliates and Associated Physician Practices is amultiple site organization consisting of ambulatory clinics and hospital sitesin [place], [place], [place] and [place]. This disclosure is being madepursuant to the Care Everywhere program and may not contain all information available regarding this patient. 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 [employer] Not on file Not on file Not on file Last Filed Vital Signs Vital Sign Reading Time Taken Comments Blood Pressure 106/74 06/16/2021 10:41 AM GLUER MACHINE SETUP OPERATOR Pulse 60 06/16/2021 10:41 AM GLUER MACHINE SETUP OPERATOR Temperature 36.2 C (97.2 F) 06/16/2021 10:41 AM GLUER MACHINE SETUP OPERATOR Respiratory Rate 20 06/16/2021 10:41 AM GLUER MACHINE SETUP OPERATOR Oxygen Saturation 97% 06/16/2021 10:41 AM GLUER MACHINE SETUP OPERATOR Inhaled Oxygen Concentration - - Weight 72.6 kg (160 lb) 06/16/2021 10:41 AM GLUER MACHINE SETUP OPERATOR Height 160 cm (5' 3) 06/16/2021 10:41 AM GLUER MACHINE SETUP OPERATOR Body Mass Index 28.34 06/16/2021 10:41 AM GLUER MACHINE SETUP OPERATOR Plan of Treatment Health Maintenance Due [...] < 140/90 Blood Pressure 106/74(2021 10:41 AM GLUER MACHINE SETUP OPERATOR) Nae Montanez MA Medical Devices Implanted Type Area Financial Services Associate Device Identifier Shelf Expiration Date Model / Serial / Lot Shell Coat 3hole 54mm Implanted:Qty: 1 on 11/21/2013 by Francis Cortes MD at [facility] Right: Hip [employer] 08/16/2023 [id number] / / [id number] Linr Acetab Refl Xlpe 0deg 36mm X 54mm Implanted:Qty: 1 on 11/21/2013 by Francis Cortes MD at [facility] Right: Hip [employer] 10/15/2023 [id number] / / [id number] Spherical Head Screw 6.5mm Cancellous Implanted:Qty: 1 on 11/21/2013 by Francis Cortes MD at [facility] Right: Hip [employer] 05/17/2023 [id number] / / [id number] Standard Offset Fixed Neck Stikitite Coated Stem Feoral Coponent Implanted:Qty: 1 on 11/21/2013 by Francis Cortes MD at [facility] Right: Hip [employer] 06/14/2023 [id number] / / [id number] 03/30 Taper Femoral Head Implanted:Qty: 1 on 11/21/2013 by Francis Cortes MD at [facility] Right: Hip [employer] 12/14/2022 [id number] / / [id number] Bill Only H1 Uncem Metal Or Ceramic Implanted:Qty: 1 on 11/21/2013 by Francis Cortes MD at [facility] [employer] H1 BILL ONLY [...] PM CDT Narrative Resulting Agency Comment [facility] [address] [facility] [id number] Feliciano Oliver MD LAB - CHEMISTRY ORDERABLES Fin al Result [facility] ACCOUNT BILL [address] [place] [address] * MAMMO SCREENING DIGITAL IMAGE BILAT (09/09/2014 5:05 PM CDT) Anatomical Region Laterality Modality Breast Bilateral Mammography 09/10/2014 5:08 PM CDT Impressions 09/10/2014 5:09 PM CDT No mammographic evidence of malignancy in either breast. ASSESSMENT: BIRADS Category 1: Negative. RECOMMENDATION: Bilateral screening mammogram in one year. Thank you for allowing us to participate in the care of your patient. [facility] [place] utilizes [employer] as a reminder system to notify patients of their next recommended mammogram. Narrative 09/10/2014 5:09 PM CDT EXAMINATION: Digital screening mammogram on 09/09/2014. Computer assisted detection was utilized. PRIOR: Mammogram from [facility] in 09/28/2006. FINDINGS: Breast parenchymal density: [...] offers HCV Ab w/Reflex to Verification test #[id number]. Blood specimen (specimen) BLOOD SPECIMEN / Unknown 08/09/2013 8:53 AM CDT 08/09/2013 12:57 PM CDT Narrative Resulting Agency Comment [facility] [address] [facility] [id number] Feliciano Oliver MD LAB - CHEMISTRY ORDERABLES Fin al Result [facility] ACCOUNT BILL [address] [place] [address] from Last 3 Months or Most Recently Relevant to Health Maintenance Insurance MANAGED MEDICARE ADV MANAGED MEDICARE ADV Advance Directives * Full Code (Latest Code Status on File) Date Activated Date Inactivated Comments 11/21/2013 12:38 PM 11/24/2013 6:31 PM * Full Code Date Activated Date Inactivated Comments 02/18/2009 10:26 AM 02/22/2009 1:32 AM Care Teams Electrical Laboratory Technician Relationship Specialty Start Date End Date Linette Yepez MD [address] [place] [address] PCP - General Family Medicine 01/09/20 Aury Joseph, RN Corporate Intern 11/22/13 [place] [address] [address] Orthopedic Surgery 12/27/13
--- OUTSIDE RECORDS SUMMARY | 2024-10-19 22:51 | XMS_ITS | Encounter Summary ---
Author Organization [facility] Address [address] [place] [address] Phone Care Team Providers Care Ceramic Artist Name Role Phone Arianna Persaud Unavailable [phone] Leonidas Rubio MD Primary Care Provider David Brewer MD Unavailable [phone] Haven Cox MD Unavailable [phone] Daisy Mercado MD Unavailable [phone] Encounter Details Date Type Department Care Team (Late st Contact Info) Description 09/20/2024 Results Follow-Up [facility] Gastroenterology [address] [place] [address] Medical Office Building [address], [address] [place] [address] David Brewer MD [address] [place] [address] Surgical pathology Social History Tobacco [...] materials from doctor or pharmacy Never 04/11/2023 [facility] Utilities Answer Date Recorded In [...] often do you attend chur ch or advent services? Never 02/27/2023 Do you belong to any clubs o r organizations such as jainism groups, unions, fraternal or athletic groups, or [...] place to sleep or slept in a mcc (including now)? No 02/27/2023 Personal Safety Answer Date Recorded Have you ever been in or are you currently in a harmful physical or emotional relationship or is someone making you feel afraid or unsafe? Denies 09/19/2024 Comments No Sex and Gender Information Value Date Recorded Sex Assigned at Not on file Legal Sex Female 6:30 PM SPEECH COMMUNICATION PROFESSOR Gender Identity Not on file Sexual Orientation Not on file documented as of this encounter Plan of Treatment Not on file documented as of this encounter Visit Diagnoses Not on filedocumented in this encounter Care Teams Ceramic Artist Relationship Specialty Start Date End Date Leonidas Rubio MD [address] [address] PCP - General Family Medicine 09/05/24 Arianna Persaud PA [address] [place] [address] Physician Process Control Board Operator 08/29/24 David Brewer MD [address] [place] [address] Referring Physician Gastroenterology 09/23/24 Haven Cox MD [address] [place] [address] Consulting Physician Medical Oncology 09/23/24 Daisy Mercado MD [address] [facility] [address]19 [place] [address] Consulting Physician General Surgery 09/23/24 documented as of this encounter
--- OUTSIDE RECORDS SUMMARY | 2024-10-19 22:51 | XMS_ITS | Clinical Summary ---
Author Organization [facility] Address [address] [place] [address] Care Team Providers Care Associate Automation Engineer Name Role Phone Arianna Persaud Unavailable [phone] Leonidas Rubio MD Primary Care Provider David Brewer MD Unavailable Haven Cox MD Unavailable Daisy Mercado MD Unavailable [phone] Allergies Active Allergy Reactions Criticality Noted Date [...] to 8 tablets daily.) 120 tablet 1 025 Active lidocaine-priloca ine (EMLA) creamIndications: Administration of [...] mouth one time per day 0 0 05/16/ 008 2024 Discontinued albuterol HFA (PROVENTIL HFA,VENTOLIN [...] 06/21/2022 Assessment & Plan (06/21/2022 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 Feels more anxiety than depression. Admits panic attacks. Reluctant to start daily medication, don't want to feel trapped into taking medicine. Will Rx BuSpar as directed. Encouraged relaxation techniques such as deep breathing and guided imagery. Keep follow as scheduled, sooner if needed. Diarrhea 06/20/2022 Assessment & Plan (06/21/2022 7:16 PM ODD BUNDLE WORKER): Ongoing for approximately 1 week after finishing a course of cefdinir for UTI. No more urinary symptoms or abdominal pain. No acute findings on exam. Will order CDiff test. Advised on Bowel rest: push fluids, bland high fiber diet. Continue immodium if needed. Vulvovaginitis 06/20/2022 Assessment & Plan (06/21/2022 7:17 PM ODD BUNDLE WORKER): S/p cefdinir course for UTI. Denies discharge or genital lesions. exam deferred per pt request. Rxd Diflucan as directed. Use mild non-fragrant soaps/lotions. Recurrent UTI 06/08/2022 Assessment & Plan (06/08/2022 2:35 PM ODD BUNDLE WORKER): Currently on Abx for treatment. Patient [...] 12/23/2021 Assessment & Plan (06/21/2022 7:12 PM ODD BUNDLE WORKER): BP stable in office today on current therapy. Continue current regimen and low salt diet. Stay hydrated. Assessment & Plan (06/08/2022 2:36 PM ODD BUNDLE WORKER): Chronic and mildly elevated. Goal < [...] 12/23/2021 Assessment & Plan (06/08/2022 2:35 PM ODD BUNDLE WORKER): Chronic and stable. 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 Assessment & Plan (12/23/2021 12:10 PM CDT): [...] Team Description 10/20/19 25 Telephone [facility] Oncology [address] [place] [address] Floor 6 [place] [address] 10/18/19 25 10:45 AM CDT Infusion [facility] at [address] [address] Dehydration (Primary Dx); Pancreatic adenocarcinoma (HCC) 10/18/19 25 9:45 AM CDT Lab [facility] at [address] [address] Pancreatic adenocarcinoma (HCC) 10/17/19 25 Telephone [facility] Oncology [address] [place] [address] Floor 5 [place] [address] Lissette Ortiz RN 10/16/19 25 10:00 AM CDT Infusion [facility] at [address] [address] Pancreatic adenocarcinoma (HCC) (Primary Dx) 10/16/19 25 Documentation [facility] at [address] [place] [address] Billie Harry, WALTER 10/16/19 25 Telephone [facility] Oncology [address] [place] [address] Floor 6 [place] [address] Haven Cox MD 10/16/19 25 Documentation [facility] Oncology [address] [place] [address] [address] [place] [address] VeroMaryKatt arrington LCSW 10/16/19 25 Orders Only [facility] Oncology [address] [place] [address] Floor 5 [place] [address] Lissette Ortiz RN Pancreatic adenocarcinoma (HCC) (Primary Dx) 10/15/19 25 7:30 AM CDT Clinical Support [facility] at [address] [place] [address] Pancreatic adenocarcinoma (HCC) 10/15/19 25 Orders Only [facility] Oncology [address] [place] [address] Floor 5 [place] [address] Lissette Ortiz RN Pancreatic adenocarcinoma (HCC) (Primary Dx) 10/15/19 25 Documentation [facility] at [address] [place], [place] [address] Billie Harry, WALTER 10/15/19 25 Documentation [facility] Oncology [address] [place] [address] [address] [place] [address] Katt Rios, SPARERIBS TRIMMER 10/11/19 25 8:50 AM CDT - 10/11/19 25 11:59 PM CDT Hospital [facility] Imaging [address] [address] [place], [place] [address] Mary Kay Campuzano, RT Sj, Taylor Quintana, Kacie Jorgensen RN Pancreatic adenocarcinoma (HCC) Discharge Disposition: Discharge to home or self care 10/11/19 7:09 AM CDT - 10/11/19 11:59 PM CDT Hospital Encounter [facility] Imaging 10 [facility] Medical Office Building 2 [place] [address] Pancreatic adenocarcinoma (HCC) Discharge Disposition: Discharge to home or self care 10/10/19 Telephone [facility] Imaging [address] [address] [address] Leslie Armando RN 10/10/19 Telephone [facility] Imaging [address] [address] [address] Megan Hsu RN 10/08/19 3:45 PM CDT Lab [facility] at [facility] 10 [facility] [place] [address] Pancreatic adenocarcinoma (HCC) 10/08/19 2:00 PM CDT Office Visit [facility] Oncology 10 [facility] [address] [place] [address] Haven Cox MD Pancreatic adenocarcinoma (HCC) (Primary Dx); Pancreatic mass 09/28/19 1:45 PM CDT Office Visit [facility] Medical Group Cardiology [address], [place] [address] Onesimo George MD Atrial fibrillation status post cardioversion (HCC) (Primary Dx); History of cardiac radiofrequency ablation; Essential hypertension; Pancreatic adenocarcinoma (HCC); NOMI on CPAP; Lipid screening 09/21/19 Results Follow-Up [facility] Gastroenterology [address] [place] [address] Medical Office Building 4, [address] [place] [address] Body Outside Consult 09/21/19 Results Follow-Up [facility] Gastroenterology [address] [place] [address] Medical Office Building 4, [address] [place] [phone] David Brewer MD Surgical pathology 09/20/19 12:40 PM CDT Anesthesia Event [facility] [place] [address] [facility] [address] [place] [address] Travis Whittington MD 09/20/19 10:17 AM CDT - 09/20/19 2:37 PM CDT Emergency [facility] [place] [address] [facility] [address] [place] [address] Morgan Celestin MD Das, Koushik Kumar, MD Fall, initial encounter (Primary Dx); Pancreatic mass Discharge Disposition: Discharge to home or self care 09/20/19 9:30 AM CDT - 09/20/19 10:30 AM CDT Surgery [facility] [place] [address] [facility] [address] [place] [address] David Brewer MD ESOPHAGOGASTRODUODENOSCOPY ULTRASOUND FINE NEEDLE ASPIRATION/BIOPSY [GI534] 09/19/19 Telephone [facility] Department of Hepatobiliary, Pancreatic, & Gastrointestinal Surgery [address] [facility] Advanced Medicine 12th Floor, [place] [address] Hilda Love PA 09/18/19 12:15 PM CDT Lab [facility] at [address] [place] [address] Pancreatic mass; 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, unspecified; Encounter for follow-up examination after completed treatment for conditions other than malignant neoplasm 09/18/19 8:30 AM CDT Office Visit [facility] Surgery [address] [place] [address] [address] [place] [address] Daisy Mercado MD Pancreatic mass (Primary Dx); Other specified diseases of pancreas; Encounter for follow-up examination after completed treatment for conditions other than malignant neoplasm; Neoplasm of uncertain behavior of other specified digestive organs 09/18/19 Telephone [facility] Surgery [address] [place] [address] [address] [place] [address] Susan Marroquin RN 09/14/19 12:53 PM CDT - 09/14/19 11:59 PM CDT Hospital Encounter [facility] [address] [place] [phone] Pancreatic mass Discharge Disposition: Discharge to home or self care 09/14/19 Orders Only [facility] Surgery [address] [place] [address] [address] [place] [phone] Ana Sánchez PA Liver lesion (Primary Dx) 09/14/19 Orders Only [facility] Gastroenterology [address] [place] [address] Medical Office Building 4, [address] [place] [phone] David Brewer MD Elevated liver function tests (Primary Dx) 09/13/19 Telephone [facility] Gastroenterology [address] [place] [address] Office [address], [address] [place] [address] Arlyn Segovia, family partner call 09/13/19 Orders Only [facility] Gastroenterology [address] [place] [address] Medical Office Building 4, [address] [place] [address] Arlyn Segovia, AUSTEN Pancreatic mass (Primary Dx) 09/12/19 Results Follow-Up [facility] Gastroenterology [address] [place] [address] Office Building [address], [address] [place] [phone] David Brewer MD Surgical pathology 09/12/19 Telephone [facility] Surgery [address] [place] [address] [address] [place] [phone] Susan Marroquin RN 09/07/19 1:07 PM CDT Anesthesia Event [facility] GI Center [address] [place] [phone] Wayne Nicholson MD 09/07/19 12:30 PM CDT - 09/07/19 1:00 PM CDT Surgery [facility] GI Center [address] [place] [phone] David Brewer MD ESOPHAGOGASTRODUODENOSCOPY ULTRASOUND GUIDE LIMITED 09/07/19 11:07 AM CDT - 09/07/19 4:10 PM CDT Hospital Encounter [facility] Center [address] [place] [phone] Geoffrey Shaver MD Das, Koushik Kumar, MD Pancreatic mass; Elevated liver function tests Discharge Disposition: Discharge to home or self care 09/07/19 10:35 AM CDT Lab [facility] Outpatient Lab [address] [place] [phone] Pancreatic mass; Elevated liver function tests 09/07/19 6:50 AM CDT - 09/07/19 11:59 PM CDT Hospital Encounter [facility] GI Center [address] [place] [phone] Upper abdominal pain Discharge Disposition: Discharge to home or self care 09/07/19 25 Orders Only [facility] Center [address] [place] [phone] David Brewer MD 09/06/19 1:04 PM CDT - 09/06/19 11:59 PM CDT Hospital Encounter [facility] ([facility]) [address] [place] [address] Diagnosis unknown Discharge Disposition: Discharge to home or self care 09/05/19 25 Telephone [facility] Medical Group Cardiology [address], [place] [phone] Onesimo George MD cardiac clearance 09/05/19 25 Telephone [facility] Gastroenterology [address] [facility] Medical Office Building 4, [address] [place] [phone] Carmen Ordonez LPN GI Preprocedure 09/04/19 25 Telephone [facility] Advanced Medicine ([facility]) - [facility] Minimally Invasive Surgery [address] [place] [address] Advanced Medicine 12th Floor, [place] [address] Daisy Mercado MD Medical Question/Miscellaneous 09/03/19 25 Orders Only [facility] Surgery 10 [facility] [address] [place] [phone] Ana Sánchez PA Pancreatic mass (Primary Dx); [...] materials from doctor or pharmacy Never 04/11/2023 [facility] Utilities Answer Date Recorded In the past 12 months has th e [employer], gas, oil, or water [employer] threatened to shut off services in your [...] often do you attend chur ch or tenriism services? Never 02/27/2023 Do you belong to any clubs o r organizations such as restorationism groups, unions, fraternal or athletic groups, or [...] on file Legal Sex Female 6:30 PM ODD BUNDLE WORKER Gender Identity Not on file Sexual [...] Td or Tdap) 03/19/2024 03/19/2014 Influenza Vaccine (#1) 2024 01/15/2015, 2008 Fall Risk Assessment 10/10/2025 10/10/2024, 09/27/2024, 09/19/2023, Additional history exists Medical Devices Implanted Type Area Human Service Coordinator Device Identifier Shelf Expiration Date Model / Serial / Lot Conmed Chris Viabil 10mm X 6cm Shortwire [id number] - [id number] - [id number] Implanted:Qty: 1 on 09/06/2024 by David Brewer MD at [facility] Stent N/A: Bile Duct Conmed Chris 06/19/2027 [id number] / [id number] / [employer] Excela Low Porfile Power Port 8fr 1.6mm 1 Lumen [id number] - [id number] Implanted:Qty: 1 on 10/10/2024 at [facility] [employer] 05/07/2029 [id number] / / [id number] Procedures Procedure Name Priority Date/Time Associated Diagnosis [...] STAT 4:00 PM CDT Pancreatic adenocarcinoma (HCC) [id number] Routine 10/07/2024 3:52 PM CDT Pancreatic adenocarcinoma [...] was last reviewed 2021. Testing performed by: [facility], [address] [place] [address] Blood 10/17/2024 10:0 6 AM CDT 10/17/2024 10:26 AM CDT [facility] Cox MD LAB BLOOD ORDERABLES Gail l Result [facility] [address] [address]. [place] [address] * Differential, auto (10/17/2024 10:06 AM CDT) Neutrophil abs 3.45 1.50 - 6.50 K/cumm Comment:Testing performed by : [facility], [facility] 2, [address] [place] [address] Imm gran abs 0.02 0.00 - 0.10 K/cumm ENRIQUE TORRES Comment:Testing performed by : [facility], [facility] 2, [address] [place] [address] Lymphocyte abs 1.10 0.80 - 3.30 K/cumm ENRIQUE TORRES Comment:Testing performed by : [facility], [facility] 2, [address] [place] [address] Monocyte abs 0.28 0.20 - 0.80 K/cumm CERNER BJWCH Comment:Testing performed by : [facility], [facility] 2, [address] [place] [address] Eosinophil abs 0.05 0.00 - 0.50 K/cumm CERNER BJWCH Comment:Testing performed by : [facility], [facility] 2, [address] [place] [address] Basophil abs 0.01 0.00 - 0.10 K/cumm CERNER BJWCH Comment:Testing performed by : [facility], [facility] 2, [address], [place] [address] Neutrophil pct 70.3 % CERNER BJWCH Comment: Interpretive Data Percent cell count reference ranges are not reported, since discordance with absolute values may lead to misinterpretation of CBC data. Current Interpretive Data was last revised on 2017. Testing performed by: [facility], [facility] 2, [address] [place] [address] Imm gran pct 0.4 % CERNER BJWCH Comment: Interpretive Data Percent cell count reference ranges are not reported, since discordance with absolute values may lead to misinterpretation of CBC data. Current Interpretive Data was last revised on 2017. Testing performed by: [facility], [facility] 2, [address] [place] [address] Lymphocyte pct 22.4 % CERNER BJW Comment: Interpretive Data Percent cell count reference ranges are not reported, since discordance with absolute values may lead to misinterpretation of CBC data. Current Interpretive Data was last revised on 2017. Testing performed by: [facility], [facility] 2, [address] [place] [address] Monocyte pct 5.7 % CERNER BJWCH Comment: Interpretive Data Percent cell count reference ranges are not reported, since discordance with absolute values may lead to misinterpretation of CBC data. Current Interpretive Data was last revised on 2017. Testing performed by: [facility], [facility] 2, [address] [place] [address] Eosinophil pct 1.0 % CERNER BJWCH Comment: Interpretive Data Percent cell count reference ranges are not reported, since discordance with absolute values may lead to misinterpretation of CBC data. Current Interpretive Data was last revised on 2017. Testing performed by: [facility] 2, [address] [place] [address] Basophil pct 0.2 % ENRIQEU TORRES Comment: Interpretive Data Percent cell count reference ranges are not reported, since discordance with absolute values may lead to misinterpretation of CBC data. Current Interpretive Data was last revised on 2017. Testing performed by: [facility] 2, [address] [place] [address] Blood 10/17/2024 10:0 6 AM CDT 10/17/2024 10:09 AM CDT Moh'Maurisio Cox MD LAB BLOOD ORDERABLES Gail l Result [facility] [address] [facility]. [place] [address] * (ABNORMAL) CBC with auto differential (10/17/2024 10:06 AM CDT) WBC 4.91 3.80 - 9.90 K/cumm Comment:Testing performed by : [facility], [facility] 2, [address] [place] [address] Hgb 9.0(L) 11.9 - 15.5 g/dL ENRIQUE TORRES Comment:Testing performed by : [facility] 2, [address] [place] [address] Hct 28.8(L) 35.6 - 45.5 % ENRIQUE TORRES Comment:Testing performed by : [facility] 2, [address] [place] [address] Plt 202 150 - 400 K/cumm ENRIQUE TORRES Comment:Testing performed by : [facility] 2, [address] [place] [address] MPV 9.2 9.1 - 12.3 fL CERNER BJWCH Comment:Testing performed by : [place] [address], [address] [place] [address] RBC 3.15(L) 3.90 - 5.20 M/cumm CERNER BJWCH Comment:Testing performed by : [place] [address], [address] [place] [address] MCV 91.4 81.3 - 96.4 fL CERNER BJWCH Comment:Testing performed by : [place] [address] [place] [address] MCH 28.6 27.1 - 33.3 pg CERMARCELO BJWCH Comment:Testing performed by : [place] [address] [place] [address] MCHC 31.3(L) 32.3 - 35.7 g/dL CERNER BJWCH Comment:Testing performed by : [place] [address], [address] [place] [address] RDW CV 15.0(H) 11.1 - 14.9 % CERMARCELO BJWCH Comment:Testing performed by : [place] [address], [address] [place] [address] RDW SD 50.7(H) 35.7 - 48.1 fL CERMARCELO BJWCH Comment:Testing performed by : [address] [place] [address] ANC Prelim 3.45 1.50 - 6.50 K/cumm CERNER BJWCH Comment: Interpretive Data The rapid ANC is a preliminary automated count and may vary from the final ANC (Neut Abs) reported in the WBC differential that follows. Current interpretive data was last revised 2024. Testing performed by: [place] [address] [place] [address] Blood 10/17/2024 10:0 6 AM CDT 10/17/2024 10:09 AM CDT us MohTj Cox MD LAB BLOOD ORDERABLES Gail garcia Result ENRIQUE [facility] [address] [address]. [place] [address] * (ABNORMAL) Comprehensive metabolic panel (10/17/2024 10:06 AM CDT) Sodium 139 135 - 145 mmol/L Comment:Testing performed by : [facility], [address], [place] [address] Potassium, pl 4.0 3.3 - 4.9 mmol/L CERMARCELO BJWCH Comment:Testing performed by : [facility], [address], [place] [address] Chloride 104 97 - 110 mmol/L CERMARCELO BJWCH Comment:Testing performed by : [facility], [address], [place] [address] CO2 28 22 - 32 mmol/L CERNER BJWCH Comment:Testing performed by : [facility], [address], [place] [address] Anion gap 7 2 - 15 mmol/L CERNER BJWCH Comment:Testing performed by : [facility], [address], [place] [address] BUN 15 6 - 25 mg/dL CERNER BJWCH Comment:Testing performed by : [facility], [address], [place] [address] Creatinine 0.70 0.60 - 1.10 mg/dL CERNER BJWCH Comment:Testing performed by : [facility], [address], [place] [address] Glucose 90 70 - 199 mg/dL CERNER BJWCH Comment: [...] was last revised 2022. Testing performed by: [facility], [address], [place] [address] Calcium 8.8 8.5 - 10.3 mg/dL CERNER BJWCH Comment:Testing performed by : [facility], [address], [place] [address] Bilirubin, total 0.6 0.1 - 1.2 mg/dL CERNER BJWCH Comment:Testing performed by : [facility], [address], [place] [address] Protein, pl 5.8(L) 6.5 - 8.5 g/dL CERNER BJWCH Comment:Testing performed by : [facility], [address], [place] [address] Albumin 3.3(L) 3.5 - 5.0 g/dL CERNER BJWCH Comment:Testing performed by : [facility], [address], [place] [address] Alk phos 325(H) 40 - 130 Units/L CERNER BJWCH Comment:Testing performed by : [facility], [address], [place] [address] ALT 29 7 - 45 Units/L CERNER BJWCH Comment:Testing performed by : [facility], [address], [place] [address] AST 27 10 - 45 Units/L CERNER BJWCH Comment:Testing performed by : [facility], [address], [place] [address] Blood 10/17/2024 10:0 6 AM CDT 10/17/2024 10:26 AM CDT us Moh'Maurisio M Mili Cox MD LAB BLOOD ORDERABLES Gail garcia Result [facility] [address] [employer]. [place] [address] * eGFR (10/14/2024 8:30 AM CDT) eGFR [...] was last reviewed 2021. Testing performed by: [facility], [address] [place] [address] Blood 10/14/2024 8:30 AM CDT 10/14/2024 8:54 AM CDT [facility] Cox MD LAB BLOOD ORDERABLES Gail l Result [facility] [address] [employer]. [place] [address] * Differential, auto (10/14/2024 8:30 AM CDT) Neutrophil abs 3.00 1.50 - 6.50 K/cumm Comment:Testing performed by : [facility], [facility] 2, [address] [place] [address] Imm gran abs 0.00 0.00 - 0.10 K/cumm CERNER BJWCH Comment:Testing performed by : [facility], [facility] 2, [address] [place] [address] Lymphocyte abs 1.24 0.80 - 3.30 K/cumm CERNER BJWCH Comment:Testing performed by : [facility], [facility] 2, [address] [place] [address] Monocyte abs 0.80 0.20 - 0.80 K/cumm CERNER BJWCH Comment:Testing performed by : [facility], [facility] 2, [address], [place] [address] Eosinophil abs 0.12 0.00 - 0.50 K/cumm CERNER BJWCH Comment:Testing performed by : [facility], [facility] 2, [address] [place] [address] Basophil abs 0.03 0.00 - 0.10 K/cumm CERNER BJWCH Comment:Testing performed by : [facility], [facility] 2, [address] [place] [address] Neutrophil pct 57.8 % CERNER BJWCH Comment: Interpretive Data Percent cell count reference ranges are not reported, since discordance with absolute values may lead to misinterpretation of CBC data. Current Interpretive Data was last revised on 2017. Testing performed by: [facility], [facility] 2, [address] [place] [address] Imm gran pct 0.0 % CERNER BJWCH Comment: Interpretive Data Percent cell count reference ranges are not reported, since discordance with absolute values may lead to misinterpretation of CBC data. Current Interpretive Data was last revised on 2017. Testing performed by: [facility], [facility], [address] [place] [address] Lymphocyte pct 23.9 % CERNER BJWCH Comment: Interpretive Data Percent cell count reference ranges are not reported, since discordance with absolute values may lead to misinterpretation of CBC data. Current Interpretive Data was last revised on 2017. Testing performed by: [facility], [facility], [address] [place] [address] Monocyte pct 15.4 % ENRIQUE TORRES Comment: Interpretive Data Percent cell count reference ranges are not reported, since discordance with absolute values may lead to misinterpretation of CBC data. Current Interpretive Data was last revised on 2017. Testing performed by: [facility] 2, [address] [place] [address] Eosinophil pct 2.3 % ENRIQUE TORRES Comment: Interpretive Data Percent cell count reference ranges are not reported, since discordance with absolute values may lead to misinterpretation of CBC data. Current Interpretive Data was last revised on 2017. Testing performed by: [place] [address], [address] [place] [address] Basophil pct 0.6 % ENRIQUE TORRES Comment: Interpretive Data Percent cell count reference ranges are not reported, since discordance with absolute values may lead to misinterpretation of CBC data. Current Interpretive Data was last revised on 2017. Testing performed by: [place] [address], [address] [place] [address] Blood 10/14/2024 8:30 AM CDT 10/14/2024 8:33 AM CDT [facility]aur[facility]io Cox MD LAB BLOOD ORDERABLES Gail l Result ENRIQUE BETANCOURTCH [address] [facility]. [place] [address] * (ABNORMAL) CBC with auto differential (10/14/2024 8:30 AM CDT) WBC 5.19 3.80 - 9.90 K/cumm Comment:Testing performed by : [facility] 2, [address] [place] [address] Hgb 8.8(L) 11.9 - 15.5 g/dL ENRIQUE TORRES Comment:Testing performed by : [facility] 2, [address] [place] [address] Hct 27.5(L) 35.6 - 45.5 % CERNER BJWCH Comment:Testing performed by : [place] [address], [address] [place] [address] Plt 209 150 - 400 K/cumm CERNER BJWCH Comment:Testing performed by : [place] [address], [place] [address] MPV 9.7 9.1 - 12.3 fL CERNER BJWCH Comment:Testing performed by : [place] [address] [place] [address] RBC 3.04(L) 3.90 - 5.20 M/cumm CERNER BJWCH Comment:Testing performed by : [place] [address], [place] [address] MCV 90.5 81.3 - 96.4 fL CERNER BJWCH Comment:Testing performed by : [place] [address], [place] [address] MCH 28.9 27.1 - 33.3 pg CERNER BJWCH Comment:Testing performed by : [address], [place] [address] MCHC 32.0(L) 32.3 - 35.7 g/dL CERNER BJWCH Comment:Testing performed by : [place] [address] [place] [address] RDW CV 14.4 11.1 - 14.9 % CERNER BJWCH Comment:Testing performed by : [place] [address], [address] [place] [address] RDW SD 47.6 35.7 - 48.1 fL CERNER BJWCH Comment:Testing performed by : [place] [address], [address] [place] [address] ANC Prelim 3.00 1.50 - 6.50 K/cumm CERNER BJWCH Comment: Interpretive Data The rapid ANC is a preliminary automated count and may vary from the final ANC (Neut Abs) reported in the WBC differential that follows. Current interpretive data was last revised 2024. Testing performed by: [facility], [facility] 2, [address] [place] [address] Blood 10/14/2024 8:30 AM CDT 10/14/2024 8:[address] [facility] LAB BLOOD ORDERABLES Gail l Result Performing Organization Address City/[facility]/ZIP Co de Phone Number ENRIQUE BJCH [address] [employer] [address] * (ABNORMAL) Cancer antigen 19-9 (10/14/2024 8:30 AM CDT) CA 19-9 ag 46.8(H) 0.0 - 35.0 units/mL Comment: Interpretive Data The Sree CA 19-9 assay procedure was used. Results from different manufacturers or methods may not be comparable. Serial testing should be performed using the same method. Testing performed by: [facility], [facility], [place]., [address] Blood 10/14/2024 8:30 AM CDT 10/14/2024 10:[address] [facility] MD LAB BLOOD ORDERABLES Gail l Result ENRIQUE BJWCH [address] [employer]. [place] [address] * TSH (10/14/2024 8:30 AM CDT) Thyroid Stimulating Hormone 0.52 0.30 - 4.20 mcIUnit/mL Comment:Testing performed by : [facility], [address], [place] [address] Blood 10/14/2024 8:30 AM CDT 10/14/2024 8:54 AM CDT [facility] MD LAB BLOOD ORDERABLES Gail l Result Performing Organization Address [facility] Co de Phone Number ENRIQUE BETANCOURTWCH [address] [place] [address] * (ABNORMAL) T4, free (10/14/2024 8:30 AM CDT) Free T4 1.95(H) 0.90 - 1.70 ng/dL Comment:Testing performed by : [facility], [address] [place] [address] Blood 10/14/2024 8:30 AM CDT 10/14/2024 8:54 AM CDT [facility] MD LAB BLOOD ORDERABLES Gail l Result Performing Organization Address [facility] de Phone Number ENRIQUE BJWCH [address] [place] [address] * (ABNORMAL) Comprehensive metabolic panel (10/14/2024 8:30 AM CDT) Sodium 138 135 - 145 mmol/L Comment:Testing performed by : [facility], [address] [place] [address] Potassium, pl 3.7 3.3 - 4.9 mmol/L CERNER BJWCH Comment:Testing performed by : [facility], [address] [place] [address] Chloride 103 97 - 110 mmol/L CERNER BJWCH Comment:Testing performed by : [facility], [address] [place] [address] CO2 23 22 - 32 mmol/L CERNER BJWCH Comment:Testing performed by : [facility], [address] [place] [address] Anion gap 12 2 - 15 mmol/L CERNER BJWCH Comment:Testing performed by : [facility], [address], [place] [address] BUN 14 6 - 25 mg/dL CERNER BJWCH Comment:Testing performed by : [facility], [address], [place] [address] Creatinine 0.74 0.60 - 1.10 mg/dL CERNER BJWCH Comment:Testing performed by : [facility], [address], [place] [address] Glucose 94 70 - 199 mg/dL CERNER [...] was last revised 2022. Testing performed by: [facility], [address], [place] [address] Calcium 9.1 8.5 - 10.3 mg/dL CERNER BJWCH Comment:Testing performed by : [facility], [address], [place] [address] Bilirubin, total 0.6 0.1 - 1.2 mg/dL CERNER BJWCH Comment:Testing performed by : [facility], [address], [place] [address] Protein, pl 5.7(L) 6.5 - 8.5 g/dL CERNER BJWCH Comment:Testing performed by : [facility], [address], [place] [address] Albumin 3.4(L) 3.5 - 5.0 g/dL CERNER BJWCH Comment:Testing performed by : [facility], [address], [place] [address] Alk phos 387(H) 40 - 130 Units/L CERNER BJWCH Comment:Testing performed by : [facility], [address], [place] [address] ALT 37 7 - 45 Units/L ENRIQUE TORRES Comment:Testing performed by : [facility], [address], [place] [address] AST 22 10 - 45 Units/L ENRIQUE TORRES Comment:Testing performed by : [facility], [address], [place] [address] Blood 10/14/2024 8:30 AM CDT 10/14/2024 8:54 AM CDT [facility] MD LAB BLOOD ORDERABLES Gail l Result ENRIQUE TORRES [address] [place] [address] * IR Port Placement Chest > 5 Years (10/10/2024 10:16 AM CDT) Anatomical Region Laterality Modality Chest N/A X-Ray Angiograph y 10/10/2024 10:3 1 AM CDT Impressions 10/10/2024 10:31 AM CDT Successful chest wall port placement. PLAN: The catheter is ready for immediate use. Please note that a power injectable port was placed. When treatment is completed, removal can be scheduled by calling [facility] - [phone] [facility] - [phone] Electronically signed by: Feliciano Martinez PA-C Narrative [...] was obtained. Prior to beginning the procedure, Star Protocol was used to confirm the patient's [...] was obtained. Prior to beginning the procedure, Star Protocol was used to confirm the patient's [...] completed, removal can be scheduled by calling [facility] - [phone] [facility] - [phone] Electronically signed by: Feliciano Martinez PA-C [facility]Maurisio Vallejo Kenny BROWN IMG IR PROCEDURES Final R [...] it. Electronically signed by: Johan Krishna MD Narrative 10/10/2024 10:56 AM CDT EXAMINATION: TUMOR FDG-PET/CT [...] obtained. The study was interpreted on the [employer] workstation. The mean liver SUV (reported for quality control inspector heading purposes) is 1.7. The total scanned area [...] obtained. The study was interpreted on the [employer] workstation. The mean liver SUV (reported for quality control inspector heading purposes) is 1.7. The total scanned area [...] it. Electronically signed by: Johan Krishna MD [facility]Maurisio Cox MD IMG PET PROCEDURES Final Result [...] was last reviewed 2021. Testing performed by: [facility], [address] [place] [address] Blood 10/07/2024 4:00 PM CDT 10/07/2024 4:36 PM CDT [facility]aurisio Cox MD LAB BLOOD ORDERABLES Gail l Result [facility] [address] Department [place] [address] * (ABNORMAL) Differential, auto (10/07/2024 4:00 PM CDT) Neutrophil abs 4.52 1.50 - 6.50 K/cumm Comment:Testing performed by : [facility], [facility] 2, [address] [place] [address] Imm gran abs 0.01 0.00 - 0.10 K/cumm CERNER BJWCH Comment:Testing performed by : [facility], [facility] 2, [address] [place] [address] Lymphocyte abs 0.48(L) 0.80 - 3.30 K/cumm CERNER BJWCH Comment:Testing performed by : [facility], [facility] 2, [address] [place] [address] Monocyte abs 0.37 0.20 - 0.80 K/cumm CERNER BJWCH Comment:Testing performed by : [facility], [facility] 2, [address] [place] [address] Eosinophil abs 0.01 0.00 - 0.50 K/cumm CERMARCELO BJWCH Comment:Testing performed by : [facility], [facility] 2, [address] [place] [address] Basophil abs 0.01 0.00 - 0.10 K/cumm CERNER BJWCH Comment:Testing performed by : [facility], [facility] 2, [address] [place] [address] Neutrophil pct 83.6 % CERNER BJWCH Comment: Interpretive Data Percent cell count reference ranges are not reported, since discordance with absolute values may lead to misinterpretation of CBC data. Current Interpretive Data was last revised on 2017. Testing performed by: [facility], [facility] 2, [address] [place] [address] Imm gran pct 0.2 % CERNER BJWCH Comment: Interpretive Data Percent cell count reference ranges are not reported, since discordance with absolute values may lead to misinterpretation of CBC data. Current Interpretive Data was last revised on 2017. Testing performed by: [facility], [facility] 2, [address] [place] [address] Lymphocyte pct 8.9 % CERNER BJWCH Comment: Interpretive Data Percent cell count reference ranges are not reported, since discordance with absolute values may lead to misinterpretation of CBC data. Current Interpretive Data was last revised on 2017. Testing performed by: [facility], [facility] 2, [address] [place] [address] Monocyte pct 6.9 % CERNER BJWCH Comment: Interpretive Data Percent cell count reference ranges are not reported, since discordance with absolute values may lead to misinterpretation of CBC data. Current Interpretive Data was last revised on 2017. Testing performed by: [facility], [facility] 2, [address] [place] [address] Eosinophil pct 0.2 % CERNER BJWCH Comment: Interpretive Data Percent cell count reference ranges are not reported, since discordance with absolute values may lead to misinterpretation of CBC data. Current Interpretive Data was last revised on 2017. Testing performed by: [facility], [facility] 2, [address] [place] [address] Basophil pct 0.2 % CERNER BJWCH Comment: Interpretive Data Percent cell count reference ranges are not reported, since discordance with absolute values may lead to misinterpretation of CBC data. Current Interpretive Data was last revised on 2017. Testing performed by: [facility] 2, [address] [place] [address] Blood 10/07/2024 4:00 PM CDT 10/07/2024 4:01 PM CDT [facility]aur[facility]io Cox MD LAB BLOOD ORDERABLES Gail radha Result [facility] [address] [facility]. [place] [address] * (ABNORMAL) CBC with auto differential (10/07/2024 4:00 PM CDT) WBC 5.40 3.80 - 9.90 K/cumm Comment:Testing performed by : [place] [address], [address] [place] [address] Hgb 9.0(L) 11.9 - 15.5 g/dL ENRIQUE TORRES Comment:Testing performed by : [place] [address], [address] [place] [address] Hct 28.7(L) 35.6 - 45.5 % ENRIQUE TORRES Comment:Testing performed by : [place] [address], [address] [place] [address] Plt 185 150 - 400 K/cumm ENRIQUE TORRES Comment:Testing performed by : [place] [address], [address] [place] [address] MPV 9.1 9.1 - 12.3 fL ENRIQUE TORRES Comment:Testing performed by : [place] [address], [address] [place] [address] RBC 3.06(L) 3.90 - 5.20 M/cumm ENRIQUE TORRES Comment:Testing performed by : [facility] 2, [address] [place] [address] MCV 93.8 81.3 - 96.4 fL ENRIQUE TORRES Comment:Testing performed by : [facility], [facility] 2, [address] [place] [address] MCH 29.4 27.1 - 33.3 pg ENRIQUE TORRES Comment:Testing performed by : [facility] 2, [address] [place] [address] MCHC 31.4(L) 32.3 - 35.7 g/dL ENRIQUE TORRES Comment:Testing performed by : [facility], [facility] 2, [address] [place] [address] RDW CV 15.4(H) 11.1 - 14.9 % ENRIQUE TORRES Comment:Testing performed by : [facility], [facility] 2, [address] [place] [address] RDW SD 53.6(H) 35.7 - 48.1 fL NERIQUE TORRES Comment:Testing performed by : [facility], [facility] 2, [address] [place] [address] ANC Prelim 4.52 1.50 - 6.50 K/cumm ENRIQUE TORRES Comment: Interpretive Data The rapid ANC is a preliminary automated count and may vary from the final ANC (Neut Abs) reported in the WBC differential that follows. Current interpretive data was last revised 2024. Testing performed by: [place] [address], [address] [place] [address] Blood 10/07/2024 4:00 PM CDT 10/07/2024 4:01 PM CDT us Moh'Maurisio Cox MD LAB BLOOD ORDERABLES Gail garcia Result GILMARCELO BETANCOURTWCH [address] [facility]. [place] [address] * (ABNORMAL) Cancer antigen 19-9 (10/07/2024 4:00 PM CDT) CA 19-9 ag 79.3(H) 0.0 - 35.0 units/mL Comment: Interpretive Data The Sree CA 19-9 assay procedure was used. Results from different manufacturers or methods may not be comparable. Serial testing should be performed using the same method. Testing performed by: [facility], [address] [place] [address]., [address] Blood 10/07/2024 4:00 PM CDT 10/07/2024 6:08 PM CDT [facility] MD LAB BLOOD ORDERABLES Gail l Result ENRIQUE [facility] [address] [facility]. [place] [address] * (ABNORMAL) Protime-INR (10/07/2024 4:00 PM CDT) PT 14.2(H) 9.7 - 13.0 sec Comment:Testing performed by : [facility], [address] [facility], [place] [address] INR 1.31(H) 0.90 - 1.20 ENRIQUE TORRES Comment: Interpretive data Oral anticoagulant therapeutic ranges: Venous thromboembolism prophylaxis or treatment: 2.0-3.0 CARDIOLOGY Standard range: 2.0-3.0 High-intensity range: 2.5-3.5 Refer to indication-specific guidelines for appropriate target ranges for prosthetic heart valve replacement. Current interpretive data was last revised on 2019. Testing performed by: [facility], [address] [facility], [place] [address] Blood 10/07/2024 4:00 PM CDT 10/07/2024 4:36 PM CDT Haven Cox MD LAB BLOOD ORDERABLES Gail l Result [facility] [address] [facility]. [place] [address] * (ABNORMAL) Comprehensive metabolic panel (10/07/2024 4:00 PM CDT) Sodium 141 135 - 145 mmol/L Comment:Testing performed by : [facility], [address], [place] [address] Potassium, pl 4.2 3.3 - 4.9 mmol/L CERNER BJW Comment:Testing performed by : [facility], [address], [place] [address] Chloride 105 97 - 110 mmol/L CERNER BJWCH Comment:Testing performed by : [facility], [address], [place] [address] CO2 26 22 - 32 mmol/L CERNER BJWCH Comment:Testing performed by : [facility], [address], [place] [address] Anion gap 11 2 - 15 mmol/L CERNER BJW Comment:Testing performed by : [facility], [address], [place] [address] BUN 13 6 - 25 mg/dL CERNER BJWCH Comment:Testing performed by : [facility], [address], [place] [address] Creatinine 0.71 0.60 - 1.10 mg/dL CERNER BJWCH Comment:Testing performed by : [facility], [address], [place] [address] Glucose 106 70 - 199 mg/dL [facility] Comment: Interpretive Data Fasting glucose >/= 126 [...] was last revised 2022. Testing performed by: [facility], [address], [place] [address] Calcium 9.6 8.5 - 10.3 mg/dL CERNER BJWCH Comment:Testing performed by : [facility], [address], [place] [address] Bilirubin, total 1.8(H) 0.1 - 1.2 mg/dL CERNER BJWCH Comment:Testing performed by : [facility], [address], [place] [address] Protein, pl 6.2(L) 6.5 - 8.5 g/dL CERNER BJWCH Comment:Testing performed by : [facility], [address], [place] [address] Albumin 3.6 3.5 - 5.0 g/dL CERNER BJWCH Comment:Testing performed by : [facility], [address], [place] [address] Alk phos 794(H) 40 - 130 Units/L CERNER BJWCH Comment:Testing performed by : [facility], [address], [place] [address] ALT 107(H) 7 - 45 Units/L CERNER BJW Comment:Testing performed by : [facility], [address], [place] [address] AST 240(H) 10 - 45 Units/L CERNER BJWCH Comment:Testing performed by : [facility], [address], [place] [address] Blood 10/07/2024 4:00 PM CDT 10/07/2024 4:36 PM CDT us Ibeth'Maurisio Cox MD LAB BLOOD ORDERABLES Gail l Result [facility] [address] [place] [address] * [id number] (10/07/2024 3:52 PM CDT) MSI-HIGH NOT DETECTED 10/14/2024 7:47 PM CDT [facility] TMB 4.75 mut/Mb 10/14/2024 7:47 PM CDT [facility] HRD Not detected 10/14/2024 7:47 PM CDT [facility] TUMOR FRACTION 0.4% 10/14/2024 7:47 PM CDT [facility] Chip TET2 Q644* (0.5%) 10/14/2024 7:47 PM CDT [facility] Blood specimen (specimen) Venous blood specimen / Unknown 10/07/2024 3:52 PM CDT 10/09/2024 11:07 AM CDT Narrative This result has genomic variants that were not included in this document. Haven Cox MD LAB GENETIC TESTING Final Result [facility] [address] [place], [place] [address] [place] [address] [facility] [address] [place] [address] * POCT lipid panel (09/27/2024 1:34 PM [...] Biopsy) 09/19/2024 1:07 PM CDT Narrative PATHOLOGY [facility] - 09/20/2024 2:24 PM CDT EPIC results best viewed via link to PDF [facility] [place] [address] Note to Patients: This report may contain [...] Gender: F : 1950 (Age: 73) Address: [address] [place] [address] Hospital #: [id number] Taken:09/19/2024 Received:09/19/2024 Reported: 09/20/2024 Patient Type: [facility] ED Service: Emergency Location: [facility] ED Physician(s): Puma Wagner M.D. Natasha Leah Goldie Leigh, MD Diagnosis: Pancreas, neck, mass, fine needle biopsy - Rare atypical glands/single cells and focal perineural invasion, compatible with invasive pancreatic adenocarcinoma - Scant tumor cellularity; likely insufficient for further molecular testing [facility]/09/20/2024 14:24 By this signature, I attest that [...] aggregate). Labeled A1. Jar 0. [facility]09/19/2024 15:19 PA(s): Evelyn Cunningham By this signature, I attest that the above diagnosis is based upon my personal examination of the slides(and/or other material). Addenda/Procedures The performance characteristics of some immunohistochemical stains, fluorescence in-situ hybridization tests and immunophenotyping by flow cytometry cited in this report (if any) were determined by the Surgical Pathology and Flow Cytometry Departments at [facility] as part of an ongoing quality assurance consultant program and in compliance with federally [...] Surgical Pathology and Flow Cytometry Departments of [facility]. It has not been cleared or approved by the U. [place]. Food and Drug Administration. IMAGES AND SCANNED DOCUMENTS, IF INCLUDED, ONLY VIEWABLE IN PDF VERSION OF REPORT us David Brewer MD LAB PATHOLOGY ORDERABLES Fi nal Result PATHOLOGY [facility] 3rd Floor [place], [place] [phone] * Upper EUS (09/19/2024 12:32 PM CDT) Anatomical Region Laterality Modality Other Narrative Procedure Note David Brewer MD - 09/19/2024 12:32 PM CDT [facility] Patient Name: Susannah Goncalves Procedure Date: 09/19/2024 12:32 PM Date of : 1950 Admit Type: Outpatient Age: 73 Gender: Female Attending MD: David Brewer M.D. Room: [facility] ENDOSCOPY ROOM 1 Note Status: [...] consent was obtained.The Olympuscurved linear array therapeutic [id number] was introduced through the mouth, and advanced [...] Three passes were madewith the 22 gauge Xerox needle using a transgastric approach. A stylet [...] following this procedure please call my officeat [phone] ([phone]) to speak to my nurses. After hours and evenings please call [phone] speak to the GI fellow collection specialist. Please tell themthat Dr. Brewer did your procedure and that your were instructed to have the fellow call me or thephysician covering for me to discuss the management of your condition. If you have an urgent problem, please goto the nearest emergency room and have the ER doctorcall my office during the day or [facility] transfer ([phone]) center after hours and weekends to arrange admission or transfer to our facility. - Call my nurse Arlyn Segovia RN in the GI office at [phone] for your final pathology results in 7 days. Attending Participation: I personally performed the entire procedure. Electronically Signed By: David Brewer M.D. David Brewer M.D. 09/19/2024 1:28:33 PM . Number of Addenda: 0 Note Initiated On: 09/19/2024 12:32 PM Result [facility] David Brewer MD ENDOSCOPY PROCEDURES Final Result * (ABNORMAL) Cancer antigen 19-9 (09/17/2024 10:32 AM CDT) CA 19-9 ag 47.6(H) 0.0 - 35.0 units/mL Comment: Interpretive Data The Sree CA 19-9 assay procedure was used. Results from different manufacturers or methods may not be comparable. Serial testing should be performed using the same method. Testing performed by: [facility], [address] [place] [address]., [id number] Blood 09/17/2024 10:3 2 AM CDT 09/17/2024 7:30 PM CDT Result [facility] Ana RODRIGUES LAB BLOOD ORDERABLES Gail l Result Performing Organization Address [facility] de Phone Number [employer] [address] [employer] [address] * (ABNORMAL) CEA (09/17/2024 10:32 AM CDT) CEA 5.2(H) <=5.0 ng/mL Comment: Interpretive Data Reference Range: Non-Smokers: < or = 3.0 ng/mL Some Smokers may have elevated levels, usually < 5.0 ng/mL The Sree CEA assay procedure was used. Results from different manufacturers or methods may not be comparable. Serial testing should be performed using the same method. Testing performed by: [facility], [address] [place] [address]., [address] Blood 09/17/2024 10:3 2 AM CDT 09/17/2024 7:30 PM CDT Result [facility] Ana RODRIGUES LAB BLOOD ORDERABLES Gail l Result Performing Organization Address [facility] Co de Phone Number [facility] [address] [facility]. [place] [address] * CT Chest W and Abdomen Pelvis [...] physical and laboratory examinations. Dictated by: Jackie Berry, M.D. The radiology attending physician has personally reviewed this study, and had reviewed and/or edited this written report and agrees with it. Electronically signed by: Segun Bailey M.D. Ana RODRIGUES IMG CT PROCEDURES Final R esult * FL ERCP Biliary Duct (09/06/2024 1:42 PM CDT) Narrative [facility] - 09/06/2024 1:53 PM CDT The images from this study are not interpreted by Radiology. Please refer to the physician's procedure / OR operative note. David Brewer MD IMG FLUOROSCOPY PROCEDURES Final Result [facility] * Surgical pathology (09/06/2024 1:25 PM CDT) Lymph node, needle biopsy 09/06/2024 1:25 PM CDT 09/10/2024 11:26 AM CDT Narrative 09/11/2024 3:14 PM CDT [address] [address] Tele: Roxana Gordon MD - Adjunct Psychology Faculty Member Note to Patients: This report may contain [...] PATHOLOGY REPORT Patient Name: SUSANNAH GONCALVES Address: [address] [place] [address] [place] [address] Gender: F : 1950 (Age: 73) Service: Gastro Location: [facility], Hospital #: [id number] Patient Type: [facility] Taken: 09/06/2024 Received 09/10/2024 Reported: 09/11/2024 Physician(s): David Brewer M.D. MD Leonidas Velarde M.D. DIAGNOSIS: Pancreas, head, fine needle biopsies: [...] filtered and submitted entirely in cassette A1. [facility] MICROSCOPIC DESCRIPTION: Microscopic examination shows multiple fragments of pancreatic parenchyma. There are focal slightly irregular glands with minimal nuclear atypia. An immunostain for p53 shows wild type staining in these glands. There is no definitive malignancy identified. Clinical correlation and follow-up is needed. Clerical Data Follows A; [id number], 69467, 00623 <CR>, [address]5119 REPORT IMAGES AND/OR SCANNED DOCUMENTS ONLY VIEWABLE IN PDF FORMAT The immunohistochemical test(s) cited in this report, if any, was developed and its performance characteristics determined by [facility] Pathology Department. It has not been cleared or approved by the U.S. Food and Drug Administration. The FDA has determined that such clearance or approval is not necessary. This test is used for clinical purposes. It should not be regarded as investigational or for research. [facility] Laboratory is certified under the [...] or completely in the following laboratories: [facility], [facility] [address], [address] [place] [address]. us David Brewer MD LAB PATHOLOGY ORDERABLES Fi nal Result * ERCP (09/06/2024 1:03 PM CDT) Anatomical Region Laterality Modality Other Narrative Procedure Note David Brewer MD - 09/06/2024 1:03 PM CDT ENDOSCOPY LAB Patient Name: Susannah Goncalves Procedure Date: 09/06/2024 1:03 PM Admit Type: Outpatient Room: [facility] Date of : 1950 Instrument Name: [...] The patienttolerated the procedure well. Findings: The farm equipment operator film was normal. The esophagus was [...] following this procedure please call my officeat [phone] ([phone]) to speak to my nurses. After hours and evenings please call [phone] speak to the GI fellow collection specialist. Please tell themthat Dr. Brewer did your procedure and that your were instructed to have the fellow call me or thephysician covering for me to discuss the management of your condition. If you have an urgent problem, please goto the nearest emergency room and have the ER doctorcall my office during the day or [facility] transfer ([phone]) center after hours and weekends to arrange [...] 09/06/2024 1:02 PM Admit Type: Outpatient Room: [facility] Date of : 1950 Instrument Name: [...] following this procedure please call my officeat [phone] ([phone]) to speak to my nurses. After hours and evenings please call [phone] speak to the GI fellow collection specialist. Please tell themthat Dr. Brewer did your procedure and that your were instructed to have the fellow call me or thephysician covering for me to discuss the management of your condition. If you have an urgent problem, please goto the nearest emergency room and have the ER doctorcall my office during the day or [facility] transfer ([phone]) center after hours and weekends to arrange admission or transfer to our facility. - Call my nurse Arlyn Segovia RN in the GI office at [phone] for your final results in 7 days. [...] Bilirubin, direct 4.2(H) 0.1 - 0.3 mg/dL [facility] Protein, pl 5.5(L) 6.5 - 8.5 g/dL [facility] Albumin 3.0(L) 3.5 - 5.0 g/dL [facility] Alk phos 1,250(H) 40 - 130 Units/L [facility] ALT 143(H) 7 - 45 Units/L [facility] AST 190(H) 10 - 45 Units/L [facility] Blood 09/06/2024 10:5 0 AM CDT 09/06/2024 10:50 AM CDT Narrative [facility] - 09/06/2024 11:32 AM CDT STAT pre procedure lab same day Geoffrey Shaver MD LAB BLOOD ORDERABLES Final Result [facility] [address] [place] [address] * CT Body Outside Consult (09/05/2024 1:04 [...] images may or may not represent the quinault source data set and thus may contain changes that may lower the accuracy of this second-opinion interpretation. Electronically signed by: Mickey Martinez M.D. Narrative 09/05/2024 2:33 PM CDT EXAMINATION: RADIOLOGY CONSULTATION ON OUTSIDE IMAGING STUDY STUDY INITIALLY PERFORMED: 08/28/2024 at [facility]. TYPE OF STUDY: Multiple CT images of [...] IMAGING STUDY STUDY INITIALLY PERFORMED: 08/28/2024 at [facility]. TYPE OF STUDY: Multiple CT images of [...] images may or may not represent the quinault source data set and thus may contain changes that may lower the accuracy of this second-opinion interpretation. Electronically signed by: Mickey Martinez M.D. David Brewer MD IMG CT PROCEDURES Final Res ult from Last 3 Months Insurance [facility] MEDICARE ADVANTAGE [facility] Address: [facility] [address] [place] [address] [facility] Address: [address] [place] [address] [facility] MEDICARE Address: [address] [place] [address] Advance Directives For more information, please contact: [phone] * Full Code (Latest Code Status on [...] 2:00 AM 11/08/2022 7:29 PM Care Teams Associate Automation Engineer Relationship Specialty Start Date End Date Leonidas Rubio MD [address] [place] [address] PCP - General Family Medicine 09/05/24 Arianna Persaud PA [address] [place] [address] Physician [place] 08/29/24 David Brewer MD [address] [place] [address] Referring Physician Gastroenterology 09/23/24 Haven Cox MD [address] [place] [address] Consulting Physician Medical Oncology 09/23/24 Daisy Mercado MD [address] [facility] [address] [place] [address] Consulting Physician General Surgery 09/23/24
--- OUTSIDE RECORDS SUMMARY | 2024-10-19 22:51 | XMS_ITS | Encounter Summary ---
Author Organization [facility] Address [address] [place] [address] Phone Care Team Providers Care Sql Analyst Name Role Phone Arianna Persaud Unavailable [phone]- [phone] Leonidas Rubio MD Primary Care Provider David Brewer MD Unavailable [phone] Haven Cox MD Unavailable [phone] Daisy Mercado MD Unavailable [phone] Encounter Details Date Type Department Care Team (Late st Contact Info) Description 09/20/2024 Results Follow-Up [facility] Gastroenterology [address] [place] [address] Medical Office Building [address], [address] [place] [address] David Brewer MD [address] [place] [address] CT Body Outside Consult Social [...] In the past 12 months has [employer], gas, oil, or water company threatened to [...] any clubs o r organizations such as sabianist groups, unions, fraternal or athletic groups, or [...] on file 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 Gender Identity Not on file Sexual Orientation Not on file documented as of this encounter Plan of Treatment Not on file documented as of this encounter Visit Diagnoses Not on filedocumented in this encounter Care Teams Sql Analyst Relationship Specialty Start Date End Date Leonidas Rubio MD [address] [address] PCP - General Family Medicine 09/05/24 Arianna Persaud PA [address] [facility] [address] [place] [address] Physician Email Marketing Manager 08/29/24 David Brewer MD [address] [place] [address] Referring Physician Gastroenterology 09/23/24 Haven Cox MD [address] [place] [address] Consulting Physician Medical Oncology 09/23/24 Daisy Mercado MD [address] [facility] [address]08[address] [place] [address] Consulting Physician General Surgery 09/23/24 documented as of this encounter
--- OUTSIDE RECORDS SUMMARY | 2024-10-19 22:51 | XMS_ITS | Clinical Summary ---
Author Organization [facility] Address [address] [place] [address] Phone Care Team Providers Care Bezel Cutter Name Role Phone Linette Yepez MD Primary Care Provider [phone] Allergies Active Allergy Reactions Criticality Noted Date [...] 90 mL 360 mL 04/14/2020 2:38 PM SUPERVIS[employer]TING [employer] 0 Active ondansetron (Zofran ODT) 8 mg Tablet, Rapid Dissolve Dissolve 1 Tablet (8 mg) by mouth every 8 hours as needed for nausea or vomiting. 20 Tablet 2 04/14/2020 2:38 PM [employer] 0 Active Active Problems Problem Noted Date [...] Comments Blood Pressure 168/83 04/14/2020 7:59 AM SUPERVIS[employer]TING [employer]ING Pulse 61 04/14/2020 7:59 AM SUPERVIS[employer]TING [employer]ING Temperature 36.8 C (98.2 F) 04/14/2020 7:59 AM SU[employer] Respiratory Rate 18 04/14/2020 7:59 AM SUPERVIS[employer]TING [employer]ING Oxygen Saturation 98% 04/14/2020 7:59 AM [employer]PER[employer]ING Inhaled Oxygen Concentration - - Weight 108.2 kg (238 lb 9.6 oz) 04/13/2020 7:05 AM SUPERVIS[employer]TING [employer]ING Height 160 cm (5' 3) 04/13/2020 7:05 AM SUPERVIS[employer]TING [employer]ING Body Mass Index 42.27 04/13/2020 7:05 AM SUPERVIS[employer]TING [employer] BONING Plan of Treatment Health Maintenance Due Date [...] years 1-dose series) 2009 OSTEOPOROSIS SCREENING 2014 DTAP/TDAP/TD VACCINES (2 - Td or Tdap) 03/19/2024 INFLUENZA VACCINE (#1) 2024 Medical Devices Implanted Type Area Funeral Arrangement Director Device Identifier Shelf Expiration Date Model / Serial / Lot Seamguard Endogia 60 Prpl [id number] - [id number] Implanted:Qty : 2 on 04/13/2020 by Hong Bryant MD at [facility] N/A: Abdomen [employer] 12/02/2022 [id number] / / [id number] Seamguard Endogia 60 Blk [id number] - [id number] Implanted:Qty : 1 on 04/13/2020 by Hong Bryant MD at [facility] N/A: Abdomen [employer] 08/19/2022 [id number] / / [id number] Insurance RX OPTUM RX Member Subscriber Plan / Payer (Ef fective 2016-Present) Name:Raman Susannah A Relation to Subscriber:Self Name:Raman Susannah A Payer ID:Not on file Group ID:[id number] Type:RX Medicare Part D Address: [address] Advance Directives For more information, please contact: [phone] * Full Code (Latest Code Status on File) Date Activated Date Inactivated Comments 04/13/2020 1:09 PM 04/14/2020 5:55 PM Care Teams Bezel Cutter Relationship Specialty Start Date End Date Linette Yepez MD PCP - General Family Practice 04/01/20
[2024-10-19 22:52] VITALS: BP 82/48; PULSE 78; RESP 20; TEMP 37.1; O2SAT 98
[2024-10-19 23:00] VITALS: BP 107/71; PULSE 81; RESP 15; O2SAT 97
--- NOTE | 2024-10-19 23:07 | ECG_ITS ---
Test Date: 2024-10-19 23:21:58 Measurements Intervals Spencer Rate: 73 P: 63 DE: 187 QRS: 61 QRSD: 106 T: -60 QT: 410 QTc: 454 Interpretive Statements SINUS RHYTHM NONSPECIFIC T-WAVE ABNORMALITY No previous ECG available for comparison Electronically Signed On 10-20-2024 13:44:50 CDT by Horace Neil M.D.
[2024-10-19 23:13] VITALS: BP 104/66; PULSE 78; PULSE 80; RESP 19; O2SAT 97; O2SAT 98
[2024-10-19 23:36] LABS: Hematocrit 23.7 % (37.0-47.0); Hemoglobin 7.6 g/dL (12.0-15.0); Immature Granulocyte Percent A 1.7 % (0-0.5); Lymphocytes Absolute Auto 0.55 K/mm3 (0.9-3.2); Mean Corpuscular HGB Conc 32.1 g/dl (32-36); Mean Corpuscular Hemoglobin 29.3 pg (26-34); Mean Corpuscular Volume 91.5 fl (80-100); Nucleated Red Blood Cells Absolute Auto 0.000 K/mm3 (0.0-0.012); Nucleated Red Blood Cells Perc 0.0 % (0.0-0.2); Platelet Count Result 156 k/mm3 (150-375); Red Blood Count 2.59 M/mm3 (4.2-5.4); White Blood Count 5.2 K/mm3 (4.5-10.0)
[2024-10-19 23:46] LABS: Alanine Aminotransferase 22 U/L (6-35); Albumin Level 2.7 g/dL (3.5-5.1); Alkaline Phosphatase 182 U/L (38-126); Anion Gap 4 mmol/L (4-12); Aspartate Amino Transferase 26 U/L (14-36); Bilirubin,Total 0.5 mg/dL (0.2-1.3); Blood Urea Nitrogen 18 mg/dL (7-17); Calcium 8.4 mg/dL (8.4-10.2); Carbon Dioxide 26 mmol/L (22-30); Chloride 102 mmol/L (98-107); Estimated Glomerular Filt Rate > 60; Glucose 139 mg/dL (65-110); Potassium 3.3 mmol/L (3.4-5.0); Sodium 132 mmol/L (137-145); Total Protein 5.3 g/dL (6.3-8.2)
--- OUTSIDE RECORDS SUMMARY | 2024-10-20 00:32 | XMS_ITS | Encounter Summary ---
Author Organization [facility] Address [address] [place] [address] Phone Care Team Providers Care Bung Remover Name Role Phone Arianna Persaud Unavailable [phone]- [phone] Leonidas Rubio MD Primary Care Provider David Brewer MD Unavailable [phone] Haven Cox MD Unavailable [phone] Daisy Mercado MD Unavailable [phone] Encounter Details Date Type Department Care Team (Late st Contact Info) Description 09/20/2024 Results Follow-Up [facility] Gastroenterology [address] [place] [address] Medical Office [address], [address] [place] [address] David Brewer MD [address] [place] [address] CT Body Outside Consult Social [...] materials from doctor or pharmacy Never 04/11/2023 [facility] Utilities Answer Date Recorded In the past 12 months has e [employer], gas, oil, or water company threatened to [...] often do you attend chur ch or voodoo services? Never 02/27/2023 Do you belong to [...] place to sleep or slept in a skilled nursing (including now)? No 02/27/2023 Personal Safety Answer Date Recorded Have you ever been in or are you currently in a harmful physical or emotional relationship or is someone making you feel afraid or unsafe? 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 Gender Identity Not on file Sexual Orientation Not on file documented as of this encounter Plan of Treatment Not on file documented as of this encounter Visit Diagnoses Not on filedocumented in this encounter Care Teams Bung Remover Relationship Specialty Start Date End Date Leonidas Rubio MD [address] [address] PCP - General Family Medicine 09/05/24 Arianna Persaud PA [address] [facility] [address] [place] [address] Physician Computer Systems Technology Instructor 08/29/24 David Brewer MD [address] [place] [address] Referring Physician Gastroenterology 09/23/24 Haven Cox MD [address] [place] [address] Consulting Physician Medical Oncology 09/23/24 Daisy Mercado MD [address] [facility] [address] [place] [address] Consulting Physician General Surgery 09/23/24 documented as of this encounter
--- OUTSIDE RECORDS SUMMARY | 2024-10-20 00:32 | XMS_ITS | Clinical Summary ---
Author Organization [facility] Address [address] [place] [address] Phone Care Team Providers Care Ed Physicians Name Role Phone Linette Yepez MD Primary Care Provider [phone] Allergies Active Allergy Reactions Criticality Noted Date [...] 90 mL 360 mL 04/14/2020 2:38 PM ATHLETIC TRAINING INTERNSHIP 0 Active ondansetron (Zofran ODT) 8 mg Tablet, Rapid Dissolve Dissolve 1 Tablet (8 mg) by mouth every 8 hours as needed for nausea or vomiting. 20 Tablet 2 04/14/2020 2:38 PM ATHLET[employer] 0 Active Active Problems Problem Noted Date [...] Comments Blood Pressure 168/83 04/14/2020 7:59 AM A[employer]LET[employer] Pulse 61 04/14/2020 7:59 AM ATHLET[employer]ING INTERNS[employer] Temperature 36.8 C (98.2 F) 04/14/2020 7:59 AM ATHLET[employer]ING INTERNS[employer]IP Respiratory Rate 18 04/14/2020 7:59 AM ATHLET[employer] TRAINING INTERNSHIP Oxygen Saturation 98% 04/14/2020 7:59 AM ATHLET[employer] TRAINING INTERNS[employer]IP Inhaled Oxygen Concentration - - Weight 108.2 kg (238 lb 9.6 oz) 04/13/2020 7:05 AM ATHLET[employer] TRAINING INTERNSHIP Height 160 cm (5' 3) 04/13/2020 7:05 AM ATHLET[employer] TRAINING INTERNS[employer]IP Body Mass Index 42.27 04/13/2020 7:05 AM ATHLETIC TRAINING INTERNSHIP Plan of Treatment Health Maintenance Due Date [...] (#1) 2024 Medical Devices Implanted Type Area Business Mgr Device Identifier Shelf Expiration Date Model / Serial / Lot Seamguard Endogia 60 Prpl [id number] - [id number] Implanted:Qty : 2 on 04/13/2020 by Hong Bryant MD at [facility] N/A: Abdomen [employer] 12/02/2022 [id number] / / [id number] Seamguard Endogia 60 Blk [id number] - [id number] Implanted:Qty : 1 on 04/13/2020 by Hong Bryant MD at [facility] N/A: Abdomen [employer] 08/19/2022 [id number] / / [id number] [place] [address] RX [employer] RX Member Subscriber Plan / Payer (Ef fective 2016-Present) Name:Raman Susannah A Relation to Subscriber:Self Name:Raman Susannah A Payer ID:Not on file Group ID:[id number] Type:RX Medicare Part D Address: [address] Advance Directives For more information, please contact: [phone] * Full Code (Latest Code Status on File) Date Activated Date Inactivated Comments 04/13/2020 1:09 PM 04/14/2020 5:55 PM Care Teams Ed Physicians Relationship Specialty Start Date End Date Linette Yepez MD PCP - General Family Practice 04/01/20
--- OUTSIDE RECORDS SUMMARY | 2024-10-20 00:32 | XMS_ITS | Clinical Summary ---
Author Organization [facility] Address [address] [place] [address] Care Team Providers Care Entry Level Accounting Clerk Name Role Phone Arianna Persaud Unavailable [phone] Leonidas Rubio MD Primary Care Provider David Brewer MD Unavailable [phone] Haven Cox MD Unavailable Daisy Mercado MD Unavailable [phone] Allergies Active Allergy Reactions Criticality Noted Date [...] 06/21/2022 Assessment & Plan (06/21/2022 7:25 PM WORKERS' COMPENSATION CLAIMS EXAMINER): Worsening after of her mother in 04/2022. Feels more anxiety than depression. Admits panic attacks. Reluctant to start daily medication, don't want to feel trapped into taking medicine. Will Rx BuSpar as directed. Encouraged relaxation techniques such as deep breathing and guided imagery. Keep follow as scheduled, sooner if needed. Diarrhea 06/20/2022 Assessment & Plan (06/21/2022 7:16 PM WORKERS' COMPENSATION CLAIMS EXAMINER): Ongoing for approximately 1 week after finishing a course of cefdinir for UTI. No more urinary symptoms or abdominal pain. No acute findings on exam. Will order CDiff test. Advised on Bowel rest: push fluids, bland high fiber diet. Continue immodium if needed. Vulvovaginitis 06/20/2022 Assessment & Plan (06/21/2022 7:17 PM WORKERS' COMPENSATION CLAIMS EXAMINER): S/p cefdinir course for UTI. Denies discharge or genital lesions. exam deferred per pt request. Rxd Diflucan as directed. Use mild non-fragrant soaps/lotions. Recurrent UTI 06/08/2022 Assessment & Plan (06/08/2022 2:35 PM WORKERS' COMPENSATION CLAIMS EXAMINER): Currently on Abx for treatment. Patient to [...] 12/23/2021 Assessment & Plan (06/21/2022 7:12 PM WORKERS' COMPENSATION CLAIMS EXAMINER): BP stable in office today on current therapy. Continue current regimen and low salt diet. Stay hydrated. Assessment & Plan (06/08/2022 2:36 PM WORKERS' COMPENSATION CLAIMS EXAMINER): Chronic and mildly elevated. Goal < 130/80. [...] 12/23/2021 Assessment & Plan (06/08/2022 2:35 PM WORKERS' COMPENSATION CLAIMS EXAMINER): Chronic and stable. 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 Assessment & Plan (12/23/2021 12:10 PM CDT): [...] Department Care Team Description 10/20/19 25 Telephone [facility] [address] [place] [address] Floor 6 [place] [address] 10/18/19 25 10:45 AM CDT Infusion [facility] at [address] [address] Dehydration (Primary Dx); Pancreatic adenocarcinoma (HCC) 10/18/19 25 9:45 AM CDT Lab [facility] at [address] [address] Pancreatic adenocarcinoma (HCC) 10/17/19 25 Telephone [facility] [address] [place] [address] Floor 5 [place] [address] Lissette Ortiz RN 10/16/19 25 10:00 AM CDT Infusion [facility] at [address] [address] Pancreatic adenocarcinoma (HCC) (Primary Dx) 10/16/19 25 Documentation [facility] at [address] [place] [address] Billie Harry, WALTER 10/16/19 25 Telephone [facility] [address] [place] [address] Floor 6 [place] [address] Haven Cox MD 10/16/19 25 Documentation [facility] [address] [place] [address] [address] [place] [address] VeroMaryKatt arrington LCSW 10/16/19 25 Orders Only [facility] [address] [place] [address] Floor 5 [place] [address] Lissette Ortiz RN Pancreatic adenocarcinoma (HCC) (Primary Dx) 10/15/19 25 7:30 AM CDT Clinical Support [facility] at [address] [place] [address] Pancreatic adenocarcinoma (HCC) 10/15/19 25 Orders Only [facility] [address] [place] [address] Floor 5 [place] [address] Lissette Ortiz RN Pancreatic adenocarcinoma (HCC) (Primary Dx) 10/15/19 25 Documentation [facility] at [address] [place], [place] [address] Billie Harry, WALTER 10/15/19 25 Documentation [facility] [address] [place] [address] [address] [place] [address] Katt Rios, FLUTE GRINDER 10/11/19 25 8:50 AM CDT - 10/11/19 25 11:59 PM CDT Hospital [facility] [address] [address] [place], [place] [address] Mary Kay Campuzano, RT Sj, Taylor Quintana, Kacie Jorgensen RN Pancreatic adenocarcinoma (HCC) Discharge Disposition: Discharge to home or self care 10/11/19 7:09 AM CDT - 10/11/19 11:59 PM CDT Hospital Encounter [facility] Imaging [address] [facility] Medical Office Building 2 [place] [address] Pancreatic adenocarcinoma (HCC) Discharge Disposition: Discharge to home or self care 10/10/[address] [facility] Imaging [address] [address] [address] Leslie Armando RN 10/10/[address] [facility] [address] [address] [address] Megan Hsu RN 10/08/19 3:45 PM CDT Lab [facility] at [facility] [address] [facility] [place] [address] Pancreatic adenocarcinoma (HCC) 10/08/19 2:00 PM CDT Office Visit [facility] [address] [facility] [address] [place] [address] Haven oCx MD Pancreatic adenocarcinoma (HCC) (Primary Dx); Pancreatic mass 09/28/19 1:45 PM CDT Office Visit [facility] [address] [facility] [address], [place] [address] Onesimo George MD Atrial fibrillation status post cardioversion (HCC) (Primary Dx); History of cardiac radiofrequency ablation; Essential hypertension; Pancreatic adenocarcinoma (HCC); NOMI on CPAP; Lipid screening 09/21/19 Results Follow-Up [facility] [address] [place] [address] Medical Office Building 4, [address] [place] [address] Body Outside Consult 09/21/19 Results Follow-Up [facility] [address] [place] [address] Medical Office Building 4, [address] [place] [phone] David Brewer MD Surgical pathology 09/20/19 12:40 PM CDT Anesthesia Event [facility] [place] [address] [facility] [address] [place] [address] Travis Whittington MD 09/20/19 10:17 AM CDT - 09/20/19 2:37 PM CDT Emergency [facility] [place] [address] [facility] [address] [place] [address] Morgan Celestin MD Das, Koushik Kumar, MD Fall, initial encounter (Primary Dx); Pancreatic mass Discharge Disposition: Discharge to home or self care 09/20/19 9:30 AM CDT - 09/20/19 10:30 AM CDT Surgery [facility] [place] [address] [facility] [address] [place] [address] David Brewer MD ESOPHAGOGASTRODUODENOSCOPY ULTRASOUND FINE NEEDLE ASPIRATION/BIOPSY [GI534] 09/19/19 Telephone [facility] Department of Hepatobiliary, Pancreatic, & Gastrointestinal Surgery [address] [facility] Advanced Medicine 12th Floor, [place] [address] Hilda Love PA 09/18/19 12:15 PM CDT Lab [facility] at [address] [place] [address] Pancreatic mass; 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, unspecified; Encounter for follow-up examination after completed treatment for conditions other than malignant neoplasm 09/18/19 8:30 AM CDT Office Visit [facility] [address] [place] [address] [address] [place] [address] Daisy Mercado MD Pancreatic mass (Primary Dx); Other specified diseases of pancreas; Encounter for follow-up examination after completed treatment for conditions other than malignant neoplasm; Neoplasm of uncertain behavior of other specified digestive organs 09/18/19 Telephone [facility] [address] [place] [address] [address] [place] [address] Susan Marroquin RN 09/14/19 12:53 PM CDT - 09/14/19 11:59 PM CDT Hospital Encounter [facility] [address] [place] [id number] Pancreatic mass Discharge Disposition: Discharge to home or self care 09/14/19 Orders Only [facility] [address] [place] [address] [address] [place] [phone] Ana Sánchez PA Liver lesion (Primary Dx) 09/14/19 Orders Only [facility] [address] [place] [address] Medical Office Building 4, [address] [place] [address] David Brewer MD Elevated liver function tests (Primary Dx) 09/13/19 Telephone [facility] [address] [place] [address] Office [address], [address] [place] [phone] Arlyn Segovia, adult family home program manager call 09/13/19 Orders Only [facility] [address] [place] [address] Medical Office Building 4, [address] [place] [address] Arlyn Segovia, AUSTEN Pancreatic mass (Primary Dx) 09/12/19 Results Follow-Up [facility] [address] [place] [address] Office Building 4, [address] [place] [phone] David Brewer MD Surgical pathology 09/12/19 Telephone [facility] [address] [place] [address] [address] [place] [phone] Susan Marroquin RN 09/07/19 1:07 PM CDT Anesthesia Event [facility] [place] [facility] [address] [place] [phone] Wayne Nicholson MD 09/07/19 12:30 PM CDT - 09/07/19 1:00 PM CDT Surgery [facility] [place] [facility] [address] [place] [phone] David Brewer MD ESOPHAGOGASTRODUODENOSCOPY ULTRASOUND GUIDE LIMITED 09/07/19 11:07 AM CDT - 09/07/19 4:10 PM CDT Hospital Encounter [facility] [place] [facility] [address] [place] [phone] Geoffrey Shaver MD Das, Koushik Kumar, MD Pancreatic mass; Elevated liver function tests Discharge Disposition: Discharge to home or self care 09/07/19 10:35 AM CDT Lab [facility] Outpatient Lab [address] [place] [phone] Pancreatic mass; Elevated liver function tests 09/07/19 6:50 AM CDT - 09/07/19 11:59 PM CDT Hospital Encounter [facility] [place] [facility] [address] [place] [phone] Upper abdominal pain Discharge Disposition: Discharge to home or self care 09/07/19 25 Orders Only [facility] [place] [facility] [address] [place] [phone] David Brewer MD 09/06/19 1:04 PM CDT - 09/06/19 11:59 PM CDT Hospital Encounter [facility] ([facility]) [address] [place] [address] Diagnosis unknown Discharge Disposition: Discharge to home or self care 09/05/19 25 Telephone [facility] Cardiology [address] [facility] [address] [phone] Onesimo George MD cardiac clearance 09/05/19 25 Telephone [facility] [address] [facility] Medical Office Building 4, [address] [place] [phone] Carmen Ordonez LPN GI Preprocedure 09/04/19 25 Telephone [facility] ([facility]) - [facility] Minimally Invasive Surgery [address] [place] [address] Advanced Medicine 12th Floor, [place] [phone] Daisy Mercado MD Medical Question/Miscellaneous 09/03/19 25 Orders Only [facility] [address] [facility] [address] [place] [phone] Ana Sánchez PA Pancreatic mass (Primary Dx); [...] doctor or pharmacy Never 04/11/2023 [facility] Utilities Answer Date Recorded In the past 12 months has th e [employer], gas, oil, or water [employer] threatened to shut off services in your [...] often do you attend chur ch or latter-day services? Never 02/27/2023 Do you belong to [...] place to sleep or slept in a penitentiary (including now)? No 02/27/2023 Personal Safety Answer Date Recorded Have you ever been in or are you currently in a harmful physical or emotional relationship or is someone making you feel afraid or unsafe? Denies 09/19/2024 Comments No Sex and Gender Information Value Date Recorded Sex Assigned at Not on file Legal Sex Female 6:30 PM WORKERS' COMPENSATION CLAIMS EXAMINER Gender Identity Not on file Sexual Orientation [...] history exists Medical Devices Implanted Type Area Roading Engineer Device Identifier Shelf Expiration Date Model / Serial / Lot Conmed Chris Viabil 10mm X 6cm Shortwire [id number] - [id number] - [id number] Implanted:Qty: 1 on 09/06/2024 by David Brewer MD at [facility] [place] [facility] Stent N/A: Bile Duct Conmed Chris 06/19/2027 [id number] / [id number] / [employer] Excela Low Porfile Power Port 8fr 1.6mm 1 Lumen [id number] - [id number] Implanted:Qty: 1 on 10/10/2024 at [facility] [employer] 05/07/2029 [id number] / / [id number] Procedures Procedure Name Priority Date/Time Associated Diagnosis [...] STAT 4:00 PM CDT Pancreatic adenocarcinoma (HCC) [id number] Routine 10/07/2024 3:52 PM CDT Pancreatic adenocarcinoma [...] was last reviewed 2021. Testing performed by: [facility], [address] [place] [address] Blood 10/17/2024 10:0 6 AM CDT 10/17/2024 10:[address] [facility]'Maurisio Cox MD LAB BLOOD ORDERABLES Gail l Result [facility] [address] [address]. [place] [address] * Differential, auto (10/17/2024 10:06 AM CDT) Neutrophil abs 3.45 1.50 - 6.50 K/cumm Comment:Testing performed by : [facility], [facility], [address] [place] [address] Imm gran abs 0.02 0.00 - 0.10 K/cumm ENRIQUE TORRES Comment:Testing performed by : [facility], [facility], [address] [place] [address] Lymphocyte abs 1.10 0.80 - 3.30 K/cumm ENRIQUE TORRES Comment:Testing performed by : [facility], [facility], [address] [place] [address] Monocyte abs 0.28 0.20 - 0.80 K/cumm CERNER BJWCH Comment:Testing performed by : [facility], [facility], [address] [place] [address] Eosinophil abs 0.05 0.00 - 0.50 K/cumm CERNER BJWCH Comment:Testing performed by : [facility], [facility], [address] [place] [address] Basophil abs 0.01 0.00 - 0.10 K/cumm CERNER BJWCH Comment:Testing performed by : [facility], [facility], [address], [place] [address] Neutrophil pct 70.3 % CERNER BJWCH Comment: Interpretive Data Percent cell count reference ranges are not reported, since discordance with absolute values may lead to misinterpretation of CBC data. Current Interpretive Data was last revised on 2017. Testing performed by: [facility], [facility], [address] [place] [address] Imm gran pct 0.4 % CERNER BJWCH Comment: Interpretive Data Percent cell count reference ranges are not reported, since discordance with absolute values may lead to misinterpretation of CBC data. Current Interpretive Data was last revised on 2017. Testing performed by: [facility], [facility], [address] [place] [address] Lymphocyte pct 22.4 % CERNER BJW Comment: Interpretive Data Percent cell count reference ranges are not reported, since discordance with absolute values may lead to misinterpretation of CBC data. Current Interpretive Data was last revised on 2017. Testing performed by: [facility], [facility], [address] [place] [address] Monocyte pct 5.7 % CERNER BJWCH Comment: Interpretive Data Percent cell count reference ranges are not reported, since discordance with absolute values may lead to misinterpretation of CBC data. Current Interpretive Data was last revised on 2017. Testing performed by: [facility], [facility], [address] [place] [address] Eosinophil pct 1.0 % CERNER BJWCH Comment: Interpretive Data Percent cell count reference ranges are not reported, since discordance with absolute values may lead to misinterpretation of CBC data. Current Interpretive Data was last revised on 2017. Testing performed by: [facility], [address] [place] [address] Basophil pct 0.2 % ENRIQUE TORRES Comment: Interpretive Data Percent cell count reference ranges are not reported, since discordance with absolute values may lead to misinterpretation of CBC data. Current Interpretive Data was last revised on 2017. Testing performed by: [facility] 2, [address] [place] [address] Blood 10/17/2024 10:0 6 AM CDT 10/17/2024 10:09 AM CDT Moh'Maurisio Cox MD LAB BLOOD ORDERABLES Gail l Result [facility] [address] [facility]. Department [place] [address] * (ABNORMAL) CBC with auto differential (10/17/2024 10:06 AM CDT) WBC 4.91 3.80 - 9.90 K/cumm Comment:Testing performed by : [facility], [facility], [address] [place] [address] Hgb 9.0(L) 11.9 - 15.5 g/dL ENRIQUE TORRES Comment:Testing performed by : [facility] 2, [address] [place] [address] Hct 28.8(L) 35.6 - 45.5 % ENRIQUE TORRES Comment:Testing performed by : [facility] 2, [address] [place] [address] Plt 202 150 - 400 K/cumm ENRIQUE TORRES Comment:Testing performed by : [facility] 2, [address] [place] [address] MPV 9.2 9.1 - 12.3 fL CERNER BJWCH Comment:Testing performed by : [place] [address], [address] [place] [address] RBC 3.15(L) 3.90 - 5.20 M/cumm CERNER BJWCH Comment:Testing performed by : [place] [address], [address] [place] [address] MCV 91.4 81.3 - 96.4 fL CERNER BJWCH Comment:Testing performed by : [place] [address] [place] [address] MCH 28.6 27.1 - 33.3 pg CERMARCELO BJWCH Comment:Testing performed by : [place] [address] [place] [address] MCHC 31.3(L) 32.3 - 35.7 g/dL CERNER BJWCH Comment:Testing performed by : [place] [address], [address] [place] [address] RDW CV 15.0(H) 11.1 - 14.9 % CERMARCELO BJWCH Comment:Testing performed by : [place] [address], [address] [place] [address] RDW SD 50.7(H) 35.7 - 48.1 fL CERMARCELO BJWCH Comment:Testing performed by : [address] [place] [address] ANC Prelim 3.45 1.50 - 6.50 K/cumm CERNER BJWCH Comment: Interpretive Data The rapid ANC is a preliminary automated count and may vary from the final ANC (Neut Abs) reported in the WBC differential that follows. Current interpretive data was last revised 2024. Testing performed by: [place] [address] [place] [address] Blood 10/17/2024 10:0 6 AM CDT 10/17/2024 10:09 AM CDT us MohTj Cox MD LAB BLOOD ORDERABLES Gail garcia Result ENRIQUE [facility] [address] [address]. Department [place] [address] * (ABNORMAL) Comprehensive metabolic panel (10/17/2024 10:06 AM CDT) Sodium 139 135 - 145 mmol/L Comment:Testing performed by : [facility], [address], [place] [address] Potassium, pl 4.0 3.3 - 4.9 mmol/L CERMARCELO BJWCH Comment:Testing performed by : [facility], [address], [place] [address] Chloride 104 97 - 110 mmol/L CERMARCELO BJWCH Comment:Testing performed by : [facility], [address], [place] [address] CO2 28 22 - 32 mmol/L CERNER BJWCH Comment:Testing performed by : [facility], [address], [place] [address] Anion gap 7 2 - 15 mmol/L CERNER BJWCH Comment:Testing performed by : [facility], [address], [place] [address] BUN 15 6 - 25 mg/dL CERNER BJWCH Comment:Testing performed by : [facility], [address], [place] [address] Creatinine 0.70 0.60 - 1.10 mg/dL CERNER BJWCH Comment:Testing performed by : [facility], [address], [place] [address] Glucose 90 70 - 199 mg/dL CERNER [...] was last revised 2022. Testing performed by: [facility], [address], [place] [address] Calcium 8.8 8.5 - 10.3 mg/dL CERNER BJWCH Comment:Testing performed by : [facility], [address], [place] [address] Bilirubin, total 0.6 0.1 - 1.2 mg/dL CERNER BJWCH Comment:Testing performed by : [facility], [address], [place] [address] Protein, pl 5.8(L) 6.5 - 8.5 g/dL CERNER BJWCH Comment:Testing performed by : [facility], [address], [place] [address] Albumin 3.3(L) 3.5 - 5.0 g/dL CERNER BJWCH Comment:Testing performed by : [facility], [address], [place] [address] Alk phos 325(H) 40 - 130 Units/L CERNER BJWCH Comment:Testing performed by : [facility], [address], [place] [address] ALT 29 7 - 45 Units/L CERNER BJWCH Comment:Testing performed by : [facility], [address], [place] [address] AST 27 10 - 45 Units/L CERNER BJWCH Comment:Testing performed by : [facility], [address], [place] [address] Blood 10/17/2024 10:0 6 AM CDT 10/17/2024 10:26 AM CDT us Moh'Maurisio M Mili Cox MD LAB BLOOD ORDERABLES Gail garcia Result [facility] [address] [employer]. Department [place] [address] * eGFR (10/14/2024 8:30 AM CDT) eGFR [...] was last reviewed 2021. Testing performed by: [facility], [address] [place] [address] Blood 10/14/2024 8:30 AM CDT 10/14/2024 8:[address] [facility]Maurisio Cox MD LAB BLOOD ORDERABLES Gail l Result [facility] [address] [employer]. Department [place] [address] * Differential, auto (10/14/2024 8:30 AM CDT) Neutrophil abs 3.00 1.50 - 6.50 K/cumm Comment:Testing performed by : [facility], [facility], [address] [place] [address] Imm gran abs 0.00 0.00 - 0.10 K/cumm CERNER BJWCH Comment:Testing performed by : [facility], [facility], [address] [place] [address] Lymphocyte abs 1.24 0.80 - 3.30 K/cumm CERNER BJWCH Comment:Testing performed by : [facility], [facility], [address] [place] [address] Monocyte abs 0.80 0.20 - 0.80 K/cumm CERNER BJWCH Comment:Testing performed by : [facility], [facility], [address], [place] [address] Eosinophil abs 0.12 0.00 - 0.50 K/cumm CERNER BJWCH Comment:Testing performed by : [facility], [facility], [address] [place] [address] Basophil abs 0.03 0.00 - 0.10 K/cumm CERNER BJWCH Comment:Testing performed by : [facility], [facility], [address] [place] [address] Neutrophil pct 57.8 % CERNER BJWCH Comment: Interpretive Data Percent cell count reference ranges are not reported, since discordance with absolute values may lead to misinterpretation of CBC data. Current Interpretive Data was last revised on 2017. Testing performed by: [facility], [facility], [address] [place] [address] Imm gran pct 0.0 % CERNER BJWCH Comment: Interpretive Data Percent cell count reference ranges are not reported, since discordance with absolute values may lead to misinterpretation of CBC data. Current Interpretive Data was last revised on 2017. Testing performed by: [facility], [facility], [address] [place] [address] Lymphocyte pct 23.9 % CERNER BJWCH Comment: Interpretive Data Percent cell count reference ranges are not reported, since discordance with absolute values may lead to misinterpretation of CBC data. Current Interpretive Data was last revised on 2017. Testing performed by: [facility], [facility], [address] [place] [address] Monocyte pct 15.4 % ENRIQUE TORRES Comment: Interpretive Data Percent cell count reference ranges are not reported, since discordance with absolute values may lead to misinterpretation of CBC data. Current Interpretive Data was last revised on 2017. Testing performed by: [facility], [address] [place] [address] Eosinophil pct 2.3 % ENRIUQE TORRES Comment: Interpretive Data Percent cell count reference ranges are not reported, since discordance with absolute values may lead to misinterpretation of CBC data. Current Interpretive Data was last revised on 2017. Testing performed by: [place] [address], [address] [place] [address] Basophil pct 0.6 % ENRIQUE TORRES Comment: Interpretive Data Percent cell count reference ranges are not reported, since discordance with absolute values may lead to misinterpretation of CBC data. Current Interpretive Data was last revised on 2017. Testing performed by: [place] [address], [address] [place] [address] Blood 10/14/2024 8:30 AM CDT 10/14/2024 8:[address] [facility]Maurisio Cox MD LAB BLOOD ORDERABLES Gail l Result ENRIQUE BETANCOURTCH [address] [facility]. Department [place] [address] * (ABNORMAL) CBC with auto differential (10/14/2024 8:30 AM CDT) WBC 5.19 3.80 - 9.90 K/cumm Comment:Testing performed by : [facility], [address] [place] [address] Hgb 8.8(L) 11.9 - 15.5 g/dL ENRIQUE TORRES Comment:Testing performed by : [facility], [address] [place] [address] Hct 27.5(L) 35.6 - 45.5 % CERNER BJWCH Comment:Testing performed by : [place] [address], [address] [place] [address] Plt 209 150 - 400 K/cumm CERNER BJWCH Comment:Testing performed by : [place] [address], [place] [address] MPV 9.7 9.1 - 12.3 fL CERNER BJWCH Comment:Testing performed by : [place] [address] [place] [address] RBC 3.04(L) 3.90 - 5.20 M/cumm CERNER BJWCH Comment:Testing performed by : [place] [address], [place] [address] MCV 90.5 81.3 - 96.4 fL CERNER BJWCH Comment:Testing performed by : [place] [address], [place] [address] MCH 28.9 27.1 - 33.3 pg CERNER BJWCH Comment:Testing performed by : [address], [place] [address] MCHC 32.0(L) 32.3 - 35.7 g/dL CERNER BJWCH Comment:Testing performed by : [place] [address] [place] [address] RDW CV 14.4 11.1 - 14.9 % CERNER BJWCH Comment:Testing performed by : [place] [address], [address] [place] [address] RDW SD 47.6 35.7 - 48.1 fL CERNER BJWCH Comment:Testing performed by : [place] [address], [address] [place] [address] ANC Prelim 3.00 1.50 - 6.50 K/cumm CERNER BJWCH Comment: Interpretive Data The rapid ANC is a preliminary automated count and may vary from the final ANC (Neut Abs) reported in the WBC differential that follows. Current interpretive data was last revised 2024. Testing performed by: [facility], [facility], [address] [place] [address] Blood 10/14/2024 8:30 AM CDT 10/14/2024 8:[address] [facility] MD LAB BLOOD ORDERABLES Gail l Result Performing Organization Address City/[facility]/ZIP Co de Phone Number ENRIQUE BJCH [address] [employer] Department [place] [address] * (ABNORMAL) Cancer antigen 19-9 (10/14/2024 8:30 AM CDT) CA 19-9 ag 46.8(H) 0.0 - 35.0 units/mL Comment: Interpretive Data The Sree CA 19-9 assay procedure was used. Results from different manufacturers or methods may not be comparable. Serial testing should be performed using the same method. Testing performed by: [facility], [facility], [place]., [address] Blood 10/14/2024 8:30 AM CDT 10/14/2024 10:[address] [facility] MD LAB BLOOD ORDERABLES Gail l Result ENRIQUE BJWCH [address] [employer] [place] [address] * TSH (10/14/2024 8:30 AM CDT) Thyroid Stimulating Hormone 0.52 0.30 - 4.20 mcIUnit/mL Comment:Testing performed by : [facility], [address], [place] [address] Blood 10/14/2024 8:30 AM CDT 10/14/2024 8:[address] [facility] MD LAB BLOOD ORDERABLES Gail l Result Performing Organization Address [facility] Co de Phone Number ENRIQUE BETANCOURTWCH [address] [place] [address] * (ABNORMAL) T4, free (10/14/2024 8:30 AM CDT) Free T4 1.95(H) 0.90 - 1.70 ng/dL Comment:Testing performed by : [facility], [address] [place] [address] Blood 10/14/2024 8:30 AM CDT 10/14/2024 8:[address] MD LAB BLOOD ORDERABLES Gail l Result Performing Organization Address [facility]/RUST de Phone Number ENRIQUE BJWCH [address] [place] [address] * (ABNORMAL) Comprehensive metabolic panel (10/14/2024 8:30 AM CDT) Sodium 138 135 - 145 mmol/L Comment:Testing performed by : [facility], [address] [place] [address] Potassium, pl 3.7 3.3 - 4.9 mmol/L CERNER BJWCH Comment:Testing performed by : [facility], [address] [place] [address] Chloride 103 97 - 110 mmol/L CERNER BJWCH Comment:Testing performed by : [facility], [address] [place] [address] CO2 23 22 - 32 mmol/L CERNER BJWCH Comment:Testing performed by : [facility], [address] [place] [address] Anion gap 12 2 - 15 mmol/L CERNER BJWCH Comment:Testing performed by : [facility], [address], [place] [address] BUN 14 6 - 25 mg/dL CERNER BJWCH Comment:Testing performed by : [facility], [address], [place] [address] Creatinine 0.74 0.60 - 1.10 mg/dL CERNER BJWCH Comment:Testing performed by : [facility], [address], [place] [address] Glucose 94 70 - 199 mg/dL CERNER [...] was last revised 2022. Testing performed by: [facility], [address], [place] [address] Calcium 9.1 8.5 - 10.3 mg/dL CERNER BJWCH Comment:Testing performed by : [facility], [address], [place] [address] Bilirubin, total 0.6 0.1 - 1.2 mg/dL CERNER BJWCH Comment:Testing performed by : [facility], [address], [place] [address] Protein, pl 5.7(L) 6.5 - 8.5 g/dL CERNER BJWCH Comment:Testing performed by : [facility], [address], [place] [address] Albumin 3.4(L) 3.5 - 5.0 g/dL CERNER BJWCH Comment:Testing performed by : [facility], [address], [place] [address] Alk phos 387(H) 40 - 130 Units/L CERNER BJWCH Comment:Testing performed by : [facility], [address], [place] [address] ALT 37 7 - 45 Units/L ENRIQUE TORRES Comment:Testing performed by : [facility], [address], [place] [address] AST 22 10 - 45 Units/L ENRIQUE TORRES Comment:Testing performed by : [facility], [address], [place] [address] Blood 10/14/2024 8:30 AM CDT 10/14/2024 8:[address] MD LAB BLOOD ORDERABLES Gail l Result ENRIQUE TORRES [address] Department [place] [address] * IR Port Placement Chest > 5 Years (10/10/2024 10:16 AM CDT) Anatomical Region Laterality Modality Chest N/A X-Ray Angiograph y 10/10/2024 10:3 1 AM CDT Impressions 10/10/2024 10:31 AM CDT Successful chest wall port placement. PLAN: The catheter is ready for immediate use. Please note that a power injectable port was placed. When treatment is completed, removal can be scheduled by calling [facility] - [phone] [facility] - [phone] Electronically signed by: Feliciano Martinez PA-C Narrative [...] was obtained. Prior to beginning the procedure, [place] Protocol was used to confirm the patient's [...] was obtained. Prior to beginning the procedure, [place] Protocol was used to confirm the patient's [...] completed, removal can be scheduled by calling [facility] - [phone] [facility] - [phone] Electronically signed by: Feliciano Martinez PA-C [facility]'Maurisio Vallejo Kenny BROWN IMG IR PROCEDURES Final [...] obtained. The study was interpreted on the [employer] workstation. The mean liver SUV (reported for senior software quality engineer purposes) is 1.7. The total scanned area [...] obtained. The study was interpreted on the [employer] workstation. The mean liver SUV (reported for senior software quality engineer purposes) is 1.7. The total scanned area [...] it. Electronically signed by: Johan Krishna MD [facility]'Maurisio Cox MD IMG PET PROCEDURES Final Result [...] was last reviewed 2021. Testing performed by: [facility], [address] [place] [address] Blood 10/07/2024 4:00 PM CDT 10/07/2024 4:[address] [facility]Maurisio Cox MD LAB BLOOD ORDERABLES Gail l Result [facility] [address] Department [place] [address] * (ABNORMAL) Differential, auto (10/07/2024 4:00 PM CDT) Neutrophil abs 4.52 1.50 - 6.50 K/cumm Comment:Testing performed by : [facility], [facility], [address] [place] [address] Imm gran abs 0.01 0.00 - 0.10 K/cumm CERNER BJWCH Comment:Testing performed by : [facility], [facility], [address] [place] [address] Lymphocyte abs 0.48(L) 0.80 - 3.30 K/cumm CERNER BJWCH Comment:Testing performed by : [facility], [facility], [address] [place] [address] Monocyte abs 0.37 0.20 - 0.80 K/cumm CERNER BJWCH Comment:Testing performed by : [facility], [facility], [address] [place] [address] Eosinophil abs 0.01 0.00 - 0.50 K/cumm CERMARCELO BJWCH Comment:Testing performed by : [facility], [facility], [address] [place] [address] Basophil abs 0.01 0.00 - 0.10 K/cumm CERNER BJWCH Comment:Testing performed by : [facility], [facility], [address] [place] [address] Neutrophil pct 83.6 % CERNER BJWCH Comment: Interpretive Data Percent cell count reference ranges are not reported, since discordance with absolute values may lead to misinterpretation of CBC data. Current Interpretive Data was last revised on 2017. Testing performed by: [facility], [facility], [address] [place] [address] Imm gran pct 0.2 % CERNER BJWCH Comment: Interpretive Data Percent cell count reference ranges are not reported, since discordance with absolute values may lead to misinterpretation of CBC data. Current Interpretive Data was last revised on 2017. Testing performed by: [facility], [facility], [address] [place] [address] Lymphocyte pct 8.9 % CERNER BJWCH Comment: Interpretive Data Percent cell count reference ranges are not reported, since discordance with absolute values may lead to misinterpretation of CBC data. Current Interpretive Data was last revised on 2017. Testing performed by: [facility], [facility], [address] [place] [address] Monocyte pct 6.9 % CERNER BJWCH Comment: Interpretive Data Percent cell count reference ranges are not reported, since discordance with absolute values may lead to misinterpretation of CBC data. Current Interpretive Data was last revised on 2017. Testing performed by: [facility], [facility], [address] [place] [address] Eosinophil pct 0.2 % CERNER BJWCH Comment: Interpretive Data Percent cell count reference ranges are not reported, since discordance with absolute values may lead to misinterpretation of CBC data. Current Interpretive Data was last revised on 2017. Testing performed by: [facility], [facility], [address] [place] [address] Basophil pct 0.2 % CERNER BJWCH Comment: Interpretive Data Percent cell count reference ranges are not reported, since discordance with absolute values may lead to misinterpretation of CBC data. Current Interpretive Data was last revised on 2017. Testing performed by: [facility], [address] [place] [address] Blood 10/07/2024 4:00 PM CDT 10/07/2024 4:[address] [facility]'Maurisio Cox MD LAB BLOOD ORDERABLES Gail radha Result [facility] [address] [facility]. Department [place] [address] * (ABNORMAL) CBC with auto differential (10/07/2024 4:00 PM CDT) WBC 5.40 3.80 - 9.90 K/cumm Comment:Testing performed by : [place] [address], [address] [place] [address] Hgb 9.0(L) 11.9 - 15.5 g/dL ENRIQUE TORRES Comment:Testing performed by : [place] [address], [address] [place] [address] Hct 28.7(L) 35.6 - 45.5 % ENRIQUE TORRES Comment:Testing performed by : [place] [address], [address] [place] [address] Plt 185 150 - 400 K/cumm ENRIQUE TORRES Comment:Testing performed by : [place] [address], [address] [place] [address] MPV 9.1 9.1 - 12.3 fL ENRIQUE TORRES Comment:Testing performed by : [place] [address], [address] [place] [address] RBC 3.06(L) 3.90 - 5.20 M/cumm ENRIQUE TORRES Comment:Testing performed by : [facility], [address] [place] [address] MCV 93.8 81.3 - 96.4 fL ENRIQUE TORRES Comment:Testing performed by : [facility], [facility], [address] [place] [address] MCH 29.4 27.1 - 33.3 pg ENRIQUE TORRES Comment:Testing performed by : [facility], [address] [place] [address] MCHC 31.4(L) 32.3 - 35.7 g/dL ENRIQUE TORRES Comment:Testing performed by : [facility], [facility], [address] [place] [address] RDW CV 15.4(H) 11.1 - 14.9 % ENRIQUE TORRES Comment:Testing performed by : [facility], [facility], [address] [place] [address] RDW SD 53.6(H) 35.7 - 48.1 fL ENRIQUE TORRES Comment:Testing performed by : [facility], [facility], [address] [place] [address] ANC Prelim 4.52 1.50 - 6.50 K/cumm ENRIQUE TORRES Comment: Interpretive Data The rapid ANC is a preliminary automated count and may vary from the final ANC (Neut Abs) reported in the WBC differential that follows. Current interpretive data was last revised 2024. Testing performed by: [place] [address], [address] [place] [address] Blood 10/07/2024 4:00 PM CDT 10/07/2024 4:01 PM CDT us Moh'Maurisio Cox MD LAB BLOOD ORDERABLES Gail garcia Result GILMARCELO BETANCOURTWCH [address] [facility]. Department [place] [address] * (ABNORMAL) Cancer antigen 19-9 (10/07/2024 4:00 PM CDT) CA 19-9 ag 79.3(H) 0.0 - 35.0 units/mL Comment: Interpretive Data The Sree CA 19-9 assay procedure was used. Results from different manufacturers or methods may not be comparable. Serial testing should be performed using the same method. Testing performed by: [facility], [address] [place] [address]., [address] Blood 10/07/2024 4:00 PM CDT 10/07/2024 6:[address] MD LAB BLOOD ORDERABLES Gail l Result ENRIQUE [facility] [address] [facility]. [place] [address] * (ABNORMAL) Protime-INR (10/07/2024 4:00 PM CDT) PT 14.2(H) 9.7 - 13.0 sec Comment:Testing performed by : [facility], [address] [facility], [place] [address] INR 1.31(H) 0.90 - 1.20 ENRIQUE TORRES Comment: Interpretive data Oral anticoagulant therapeutic ranges: Venous thromboembolism prophylaxis or treatment: 2.0-3.0 CARDIOLOGY Standard range: 2.0-3.0 High-intensity range: 2.5-3.5 Refer to indication-specific guidelines for appropriate target ranges for prosthetic heart valve replacement. Current interpretive data was last revised on 2019. Testing performed by: [facility], [address] [facility], [place] [address] Blood 10/07/2024 4:00 PM CDT 10/07/2024 4:36 PM CDT Haven Cox MD LAB BLOOD ORDERABLES Gail l Result [facility] [address] [facility]. [place] [address] * (ABNORMAL) Comprehensive metabolic panel (10/07/2024 4:00 PM CDT) Sodium 141 135 - 145 mmol/L Comment:Testing performed by : [facility], [address], [place] [address] Potassium, pl 4.2 3.3 - 4.9 mmol/L CERNER BJW Comment:Testing performed by : [facility], [address], [place] [address] Chloride 105 97 - 110 mmol/L CERNER BJWCH Comment:Testing performed by : [facility], [address], [place] [address] CO2 26 22 - 32 mmol/L CERNER BJWCH Comment:Testing performed by : [facility], [address], [place] [address] Anion gap 11 2 - 15 mmol/L CERNER BJW Comment:Testing performed by : [facility], [address], [place] [address] BUN 13 6 - 25 mg/dL CERNER BJWCH Comment:Testing performed by : [facility], [address], [place] [address] Creatinine 0.71 0.60 - 1.10 mg/dL CERNER BJWCH Comment:Testing performed by : [facility], [address], [place] [address] Glucose 106 70 - 199 mg/dL [facility] Comment: Interpretive Data Fasting glucose >/= [...] was last revised 2022. Testing performed by: [facility], [address], [place] [address] Calcium 9.6 8.5 - 10.3 mg/dL CERNER BJWCH Comment:Testing performed by : [facility], [address], [place] [address] Bilirubin, total 1.8(H) 0.1 - 1.2 mg/dL CERNER BJWCH Comment:Testing performed by : [facility], [address], [place] [address] Protein, pl 6.2(L) 6.5 - 8.5 g/dL CERNER BJWCH Comment:Testing performed by : [facility], [address], [place] [address] Albumin 3.6 3.5 - 5.0 g/dL CERNER BJWCH Comment:Testing performed by : [facility], [address], [place] [address] Alk phos 794(H) 40 - 130 Units/L CERNER BJWCH Comment:Testing performed by : [facility], [address], [place] [address] ALT 107(H) 7 - 45 Units/L CERNER BJW Comment:Testing performed by : [facility], [address], [place] [address] AST 240(H) 10 - 45 Units/L CERNER BJWCH Comment:Testing performed by : [facility], [address], [place] [address] Blood 10/07/2024 4:00 PM CDT 10/07/2024 4:36 PM CDT us Ibeth'Maurisio Cox MD LAB BLOOD ORDERABLES Gail l Result [facility] [address] Department [place] [address] * [id number] (10/07/2024 3:52 PM CDT) MSI-HIGH NOT DETECTED 10/14/2024 7:47 PM CDT [facility] TMB 4.75 mut/Mb 10/14/2024 7:47 PM CDT [facility] HRD Not detected 10/14/2024 7:47 PM CDT [facility] TUMOR FRACTION 0.4% 10/14/2024 7:47 PM CDT [facility] Chip TET2 Q644* (0.5%) 10/14/2024 7:47 PM CDT [facility] Blood specimen (specimen) Venous blood specimen / Unknown 10/07/2024 3:52 PM CDT 10/09/2024 11:07 AM CDT Narrative This result has genomic variants that were not included in this document. Haven Cox MD LAB GENETIC TESTING Final Result [facility] [address] [place], [place] [address] [place] [address] [facility] [address] [place] [address] * POCT lipid panel (09/27/2024 1:34 PM [...] Biopsy) 09/19/2024 1:07 PM [address] PATHOLOGY [facility] - 09/20/2024 2:24 PM CDT EPIC results best viewed via link to PDF [facility] Suha Monahan [facility] [place] [address] Note to Patients: This report may contain [...] Gender: F : 1950 (Age: 73) Address: [address] [place] [address] Hospital #: [id number] Taken:09/19/2024 Received:09/19/2024 Reported: 09/20/2024 Patient Type: [facility] ED Service: Emergency Location: [facility] ED Physician(s): Puma Wagner M.D. Natasha Leah Goldie Leigh, MD Diagnosis: Pancreas, neck, mass, fine needle biopsy - Rare atypical glands/single cells and focal perineural invasion, compatible with invasive pancreatic adenocarcinoma - Scant tumor cellularity; likely insufficient for further molecular testing [facility]/09/20/2024 14:24 By this signature, I [...] cm in aggregate). Labeled A1. Jar 0. [facility]09/19/2024 15:19 PA(s): Evelyn Cunningham By this signature, I attest that the above diagnosis is based upon my personal examination of the slides(and/or other material). Addenda/Procedures The performance characteristics of some immunohistochemical stains, fluorescence in-situ hybridization tests and immunophenotyping by flow cytometry cited in this report (if any) were determined by the Surgical Pathology and Flow Cytometry Departments at [facility] as part of an ongoing senior software quality engineer program and in compliance with federally mandated [...] Surgical Pathology and Flow Cytometry Departments of [facility]. It has not been cleared or approved by the U. S. Food and Drug Administration. IMAGES AND SCANNED DOCUMENTS, IF INCLUDED, ONLY VIEWABLE IN PDF VERSION OF REPORT us David Brewer MD LAB PATHOLOGY ORDERABLES Fi nal Result PATHOLOGY [facility] 3rd Floor [place], [place] [phone] * Upper EUS (09/19/2024 12:32 PM CDT) Anatomical Region Laterality Modality Other Narrative Procedure Note David Brewer MD - 09/19/2024 12:32 PM CDT [facility] Patient Name: Susannah Goncalves Procedure Date: 09/19/2024 12:32 PM Date of : 1950 Admit Type: Outpatient Age: 73 Gender: Female Attending MD: David Brewer M.D. Room: [facility] ENDOSCOPY ROOM 1 Note Status: Finalized Procedure: [...] consent was obtained.The Olympuscurved linear array therapeutic [id number] was introduced through the mouth, and advanced [...] Three passes were madewith the 22 gauge Advent Solar needle using a transgastric approach. A stylet [...] following this procedure please call my officeat [phone] ([phone]) to speak to my nurses. After hours and evenings please call [phone] speak to the GI fellow station mechanic apprentice. Please tell themthat Dr. Brewer did your procedure and that your were instructed to have the fellow call me or thephysician covering for me to discuss the management of your condition. If you have an urgent problem, please goto the nearest emergency room and have the ER doctorcall my office during the day or [facility] transfer ([phone]) center after hours and weekends to arrange admission or transfer to our facility. - Call my nurse Arlyn Segovia RN in the GI office at [phone] for your final pathology results in 7 days. Attending Participation: I personally performed the entire procedure. Electronically Signed By: David Brewer M.D. David Brewer M.D. 09/19/2024 1:28:33 PM . Number of Addenda: 0 Note Initiated On: 09/19/2024 12:32 PM Result [facility] David Brewer MD ENDOSCOPY PROCEDURES Final Result * (ABNORMAL) Cancer antigen 19-9 (09/17/2024 10:32 AM CDT) CA 19-9 ag 47.6(H) 0.0 - 35.0 units/mL Comment: Interpretive Data The Sree CA 19-9 assay procedure was used. Results from different manufacturers or methods may not be comparable. Serial testing should be performed using the same method. Testing performed by: [facility], [address] [place] [address]., [id number] Blood 09/17/2024 10:3 2 AM CDT 09/17/2024 7:30 PM CDT Result [facility] Ana RODRIGUES LAB BLOOD ORDERABLES Gail l Result Performing Organization Address [facility] de Phone Number [employer] [address] [employer] [place] [address] * (ABNORMAL) CEA (09/17/2024 10:32 AM CDT) CEA 5.2(H) <=5.0 ng/mL Comment: Interpretive Data Reference Range: Non-Smokers: < or = 3.0 ng/mL Some Smokers may have elevated levels, usually < 5.0 ng/mL The Sree CEA assay procedure was used. Results from different manufacturers or methods may not be comparable. Serial testing should be performed using the same method. Testing performed by: [facility], [address] [place] [address]., [id number] Blood 09/17/2024 10:3 2 AM CDT 09/17/2024 7:30 PM CDT Result [facility] Ana RODRIGUES LAB BLOOD ORDERABLES Gail l Result Performing Organization Address [facility] Co de Phone Number [facility] [address] [facility]. Department [place] [address] * CT Chest W and Abdomen Pelvis [...] Biliary Duct (09/06/2024 1:42 PM CDT) Narrative [facility] - 09/06/2024 1:53 PM CDT The images from this study are not interpreted by Radiology. Please refer to the physician's procedure / OR operative note. David Brewer MD IMG FLUOROSCOPY PROCEDURES Final Result [facility] * Surgical pathology (09/06/2024 1:25 PM CDT) Lymph node, needle biopsy 09/06/2024 1:25 PM CDT 09/10/2024 11:26 AM CDT Narrative 09/11/2024 3:14 PM CDT [address] [address] Tele: Roxana Gordon MD - Rail Car Painter/Sandblaster Note to Patients: This report may contain [...] PATHOLOGY REPORT Patient Name: SUSANNAH GONCALVES Address: [address] [place] [address] [place] [address] Gender: F : 1950 (Age: 73) Service: Gastro Location: [facility], Hospital #: [id number] Patient Type: [facility] [place] Taken: 09/06/2024 Received 09/10/2024 [...] filtered and submitted entirely in cassette A1. [facility] MICROSCOPIC DESCRIPTION: Microscopic examination shows multiple fragments of pancreatic parenchyma. There are focal slightly irregular glands with minimal nuclear atypia. An immunostain for p53 shows wild type staining in these glands. There is no definitive malignancy identified. Clinical correlation and follow-up is needed. Clerical Data Follows A; 51370, 48275, 46610 <CR>, 94673 REPORT IMAGES AND/OR SCANNED DOCUMENTS ONLY VIEWABLE IN PDF FORMAT The immunohistochemical test(s) cited in this report, if any, was developed and its performance characteristics determined by [facility] Pathology Department. It has not been cleared or approved by the U.S. Food and Drug Administration. The FDA has determined that such clearance or approval is not necessary. This test is used for clinical purposes. It should not be regarded as investigational or for research. [facility] Laboratory is certified under the Clinical [...] part or completely in the following laboratories: [facility], [facility], [address] [place] [address]. us David Brewer MD LAB PATHOLOGY ORDERABLES Fi nal Result * ERCP (09/06/2024 1:03 PM CDT) Anatomical Region Laterality Modality Other Narrative Procedure Note David Brewer MD - 09/06/2024 1:03 PM CDT ENDOSCOPY LAB Patient Name: Susannah Goncalves Procedure Date: 09/06/2024 1:03 PM Admit Type: Outpatient Room: [facility] Date of : 1950 Instrument Name: [...] The patienttolerated the procedure well. Findings: The junior architect film was normal. The esophagus was successfully [...] following this procedure please call my officeat [phone] ([phone]) to speak to my nurses. After hours and evenings please call [phone] speak to the GI fellow station mechanic apprentice. Please tell themthat Dr. Brewer did your procedure and that your were instructed to have the fellow call me or thephysician covering for me to discuss the management of your condition. If you have an urgent problem, please goto the nearest emergency room and have the ER doctorcall my office during the day or [facility] transfer ([phone]) center after hours and weekends to arrange [...] 09/06/2024 1:02 PM Admit Type: Outpatient Room: [facility] Date of : 1950 Instrument Name: [...] following this procedure please call my officeat [phone] ([phone]) to speak to my nurses. After hours and evenings please call [phone] speak to the GI fellow station mechanic apprentice. Please tell themthat Dr. Brewer did your procedure and that your were instructed to have the fellow call me or thephysician covering for me to discuss the management of your condition. If you have an urgent problem, please goto the nearest emergency room and have the ER doctorcall my office during the day or [facility] transfer ([phone]) center after hours and weekends to arrange admission or transfer to our facility. - Call my nurse Arlyn Segovia RN in the GI office at [phone] for your final results in 7 days. [...] Bilirubin, direct 4.2(H) 0.1 - 0.3 mg/dL [facility] Protein, pl 5.5(L) 6.5 - 8.5 g/dL [facility] Albumin 3.0(L) 3.5 - 5.0 g/dL [facility] Alk phos 1,250(H) 40 - 130 Units/L [facility] ALT 143(H) 7 - 45 Units/L [facility] AST 190(H) 10 - 45 Units/L [facility] Blood 09/06/2024 10:5 0 AM CDT 09/06/2024 10:50 AM CDT Narrative [facility] - 09/06/2024 11:32 AM CDT STAT pre procedure lab same day Geoffrey Shaver MD LAB BLOOD ORDERABLES Final Result [facility] [address] Department [place] [address] * CT Body Outside Consult (09/05/2024 1:04 [...] images may or may not represent the kotlik source data set and thus may contain changes that may lower the accuracy of this second-opinion interpretation. Electronically signed by: Mickey Martinez M.D. Narrative 09/05/2024 2:33 PM CDT EXAMINATION: RADIOLOGY CONSULTATION ON OUTSIDE IMAGING STUDY STUDY INITIALLY PERFORMED: 08/28/2024 at [facility]. TYPE OF STUDY: Multiple CT images of [...] IMAGING STUDY STUDY INITIALLY PERFORMED: 08/28/2024 at [facility]. TYPE OF STUDY: Multiple CT images of [...] images may or may not represent the kotlik source data set and thus may contain changes that may lower the accuracy of this second-opinion interpretation. Electronically signed by: Mickey Martinez M.D. David Brewer MD IMG CT PROCEDURES Final Res ult from Last 3 Mon[address] Insurance [facility] MEDICARE ADVANTAGE [facility] MEDICARE Address: [facility] [address] [place] [address] [facility] MEDICARE Address: [address] [place] [id number] [facility] MEDICARE Address: [address] [place] [id number] Advance Directives For more information, please contact: [phone] * Full Code (Latest Code Status on [...] 2:00 AM 11/08/2022 7:29 PM Care Teams Entry Level Accounting Clerk Relationship Specialty Start Date End Date Leonidas Rubio MD [address] [place] [address] PCP - General Family Medicine 09/05/24 Arianna Persaud PA [address] [place] [address] Physician Collar Setter 08/29/24 David Brewer MD [address] [place] [address] Referring Physician Gastroenterology 09/23/24 Haven Cox MD [address] [place] [address] Consulting Physician Medical Oncology 09/23/24 Daisy Mercado MD [address] [facility] [address] [place] [address] Consulting Physician General Surgery 09/23/24
--- OUTSIDE RECORDS SUMMARY | 2024-10-20 00:32 | XMS_ITS | Encounter Summary ---
Author Organization [facility] Address [address] [place] [address] Phone Care Team Providers Care Head Miller Name Role Phone Arianna Persaud Unavailable [phone] Leonidas Rubio MD Primary Care Provider David Brewer MD Unavailable [phone] Haven Cox MD Unavailable [phone] Daisy Mercado MD Unavailable [phone] Encounter Details Date Type Department Care Team (Late st Contact Info) Description 09/20/2024 Results Follow-Up [facility] Gastroenterology [address] [place] [address] Medical Office [address], [address] [place] [address] David Brewer MD [address] [place] [address] Surgical pathology Social History Tobacco [...] materials from doctor or pharmacy Never 04/11/2023 [facility] Utilities Answer Date Recorded In [...] often do you attend chur ch or orthodox services? 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 Gender Identity Not on file Sexual Orientation Not on file documented as of this encounter Plan of Treatment Not on file documented as of this encounter Visit Diagnoses Not on filedocumented in this encounter Care Teams Head Miller Relationship Specialty Start Date End Date Leonidas Rubio MD [address] [address] PCP - General Family Medicine 09/05/24 Arianna Persaud PA [address] [place] [address] Physician Bottle Sorter 08/29/24 David Brewer MD [address] [place] [address] Referring Physician Gastroenterology 09/23/24 Haven Cox MD [address] [place] [address] Consulting Physician Medical Oncology 09/23/24 Daisy Mercado MD [address] [facility] [address]108[address]08[address] [place] [address] Consulting Physician General Surgery 09/23/24 documented as of this encounter
--- OUTSIDE RECORDS SUMMARY | 2024-10-20 00:32 | XMS_ITS | Clinical Summary ---
Author Organization [facility] Address [address] [place] [address] Phone Care Team Providers Care Mental Health Practitioner Name Role Phone Linette Yepez MD Primary Care Provider [phone] Allergies Active Allergy Reactions Criticality Noted Date [...] mg by mouth 2 times daily. rx [id number] Active NIFEdipine CR (PROCARDIA-XL) 30 MG TABLET SR 24 HR Take 30 mg by mouth daily. rx [id number] Active Buprenorphine HCl (Belbuca) 600 MCG FILM Take 1 Film by mouth 2 times daily. rx [id number] Active hydrOXYzine (ATARAX) 25 MG Tablet Take 25 mg by mouth 3 times daily as needed for Itching or Nausea (vomiting). rx [id number] Active famotidine (PEPCID) 20 MG Tablet Take 20 mg by mouth daily. rx [id number] Active traMADol (ULTRAM) 50 MG Tablet take [...] Department Care Team Description 08/09/2024 Results Follow-Up [facility] [place] [address] [place] [address] Norma Clark, INDEPENDENT CONSULTANT, CARTON MARKER MACHINE POCT UA AUTOMATED W/O MICRO, CULTURE, URINE 08/07/2024 1:20 PM CDT [facility]gent [facility] Visit [facility] [address] [place] [address] Amrita Vee APRN, [place] Diarrhea, unspecified [...] CULTURE, URINE (08/07/2024 1:53 PM CDT) Pathologist [facility] CULTURE RESULTS Mixed Growth of One or More Distal Urethral Contaminants 08/08/2024 11:53 PM CDT [facility] Culture URINE SPECIMEN / Unknown Non-Phlebotomy Collection / Unknown 08/07/2024 1:53 PM CDT 08/07/2024 1:53 PM CDT us Amrita Vee APRN, CNP MICROBIOLOGY - GENERAL ORDERABLES Final Result [facility] [address] [place] [address], [place] * POCT UA AUTOMATED W/O MICRO [...] 1:31 PM CDT us Amrita Vee APRN, CARTON MARKER MACHINE POINT OF CARE T CHRISSY (MANUAL) Final Result from Last 3 Months Insurance MEDICARE [facility] Advance Directives * Full Code (Latest Code Status on File) Date Activated Date Inactivated Comments 12/27/2023 9:36 AM Care Teams Mental Health Practitioner Relationship Specialty Start Date End Date Linette Yepez MD [address] [facility] [address] [place] [id number] PCP - General Family Medicine 12/08/23
--- OUTSIDE RECORDS SUMMARY | 2024-10-20 00:32 | XMS_ITS | Referral Summary ---
Author Organization [facility] Address [address] [place] [address] Care Team Providers Care Sports Medicine Trainer Name Role Phone Arianna Persaud Unavailable [phone]- [phone] Leonidas Rubio MD Primary Care Provider David Brewer MD Unavailable Haven Cox MD Unavailable Daisy Mercado MD Unavailable [phone] Encounters Date Type Department Care Team Description 10/20/19 25 Telephone [facility] Oncology [address] [place] [address] Floor 6 [place] [address] 10/18/19 25 9:45 AM CDT Lab [facility] at [address] [address] Pancreatic adenocarcinoma (HCC) 10/18/19 25 10:45 AM CDT Infusion [facility] at [address] [address] Dehydration (Primary Dx); Pancreatic adenocarcinoma (HCC) 10/17/19 25 Telephone [facility] Oncology [address] [place] [address] Floor 5 [place] [address] Lissette Ortiz RN 10/16/19 25 Documentation [facility] at [address] [place] [address] Billie Harry, RD 10/16/19 25 Telephone [facility] Floor 6 [place] [address] Haven Cox MD 10/16/19 25 Documentation [facility] Oncology [address] [place] [address] [address] [place] [address] Katt Rios LCSW 10/16/19 25 Orders Only [facility] Oncology [address] [place] [address] Floor 5 [place] [address] Lissette Ortiz, AUSTEN Pancreatic adenocarcinoma (HCC) (Primary Dx) 10/16/19 25 10:00 AM CDT Infusion [facility] at [address] [place] [address] Pancreatic adenocarcinoma (HCC) (Primary Dx) 10/15/19 25 Orders Only [facility] Oncology [address] [place] [address] Floor 5 [place] [address] Lissette Ortiz, AUSTEN Pancreatic adenocarcinoma (HCC) (Primary Dx) 10/15/19 25 Documentation [facility] [place] at [address] [place] [address] Billie Harry, RD 10/15/19 25 Documentation [facility] Oncology [address] [place] [address] [address] [place] [address] Katt Rios, ADAMARIS 10/15/19 25 7:30 AM CDT Clinical Support [facility] at [address] [place] [address] Pancreatic adenocarcinoma (HCC) 10/11/19 25 8:50 AM CDT - 10/11/19 25 11:59 PM CDT Hospital Encounter [facility] [address] [address] [place], [place] [address] Mary Kay Campuzano RT Anderson, Melissa Jane, RN [place], Emily E., RN Pancreatic adenocarcinoma (HCC) Discharge Disposition: Discharge to home or self care 10/11/19 7:09 AM CDT - 10/11/19 11:59 PM CDT Hospital Encounter [facility] [address] [facility] Medical Office Building 2 [place] [address] Pancreatic adenocarcinoma (HCC) Discharge Disposition: Discharge to home or self care 10/10/19 Telephone [facility] [address] [place] [address] Leslie Armando RN 10/10/19 Telephone [facility] [address] [address] [address] Megan Hsu RN 10/08/19 3:45 PM CDT Lab [facility] at [facility] [address] [facility] [place] [phone] Pancreatic adenocarcinoma (HCC) 10/08/19 2:00 PM CDT Office Visit [facility] Oncology [address] [facility] [address] [place] [phone] Haven Cox MD Pancreatic adenocarcinoma (HCC) (Primary Dx); Pancreatic mass 09/28/19 1:45 PM CDT Office Visit [facility] Cardiology [address] [facility] [address], [place] [address] Onesimo George MD Atrial fibrillation status post cardioversion (HCC) (Primary Dx); History of cardiac radiofrequency ablation; Essential hypertension; Pancreatic adenocarcinoma (HCC); NOMI on CPAP; Lipid screening 09/21/19 Results Follow-Up [facility] [address] [facility] [address], [address] [place] [phone] Body Outside Consult 09/21/19 Results Follow-Up [facility] Gastroenterology [address] [facility] Medical Office Building 4, [address] [place] [address] David Brewer MD Surgical pathology 09/20/19 10:17 AM CDT - 09/20/19 2:37 PM CDT Emergency [address] [place] [address] Morgan Celestin MD Das, Koushik Kumar, MD Fall, initial encounter (Primary Dx); Pancreatic mass Discharge Disposition: Discharge to home or self care 09/20/19 12:40 PM CDT Anesthesia Event [address] [place] [address] Travis Whittington MD 09/20/19 9:30 AM CDT - 09/20/19 10:30 AM CDT Surgery [address] [address] David Brewer MD ESOPHAGOGASTRODUODENOSCOPY ULTRASOUND FINE NEEDLE ASPIRATION/BIOPSY [GI534] 09/19/19 Telephone [facility] Department of Hepatobiliary, Pancreatic, & Gastrointestinal Surgery [address] [place] [address] for Advanced Medicine 12th Floor, [place] [address] Hilda Love PA 09/18/19 12:15 PM CDT Lab [facility] at [address] [place] [address] Pancreatic mass; 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, unspecified; Encounter for follow-up examination after completed treatment for conditions other than malignant neoplasm 09/18/19 Telephone [facility] Surgery [address] [place] [address] [address] [place] [address] Susan Marroquin RN 09/18/19 8:30 AM CDT Office Visit [facility] Surgery [address] [place] [address] [address] [place] [phone] Daisy Mercado MD Pancreatic mass (Primary Dx); Other specified diseases of pancreas; Encounter for follow-up examination after completed treatment for conditions other than malignant neoplasm; Neoplasm of uncertain behavior of other specified digestive organs 09/14/19 Orders Only [facility] Surgery [address] [facility] [address] [place] [address] Ana Sánchez PA Liver lesion (Primary Dx) 09/14/19 Orders Only [facility] Gastroenterology [address] [place] [address] Medical Office Building 4, [address] [place] [address] David Brewer MD Elevated liver function tests (Primary Dx) 09/14/19 12:53 PM CDT - 09/14/19 11:59 PM CDT Hospital Encounter [facility] ([facility]) [address] [place] [address] Pancreatic mass Discharge Disposition: Discharge to home or self care 09/13/19 Telephone [facility] Gastroenterology [address] [place] [address] Medical Office Building 4, [address] [place] [address] Arlyn Segovia, family manager call 09/13/19 Orders Only [facility] Gastroenterology [address] [place] [address] Medical Office Building 4, [address] [place] [address] Arlyn Segovia, AUSTEN Pancreatic mass (Primary Dx) 09/12/19 Results Follow-Up [facility] Gastroenterology [address] [place] [address] Medical Office Building 4, [address] [place] [address] David Brewer MD Surgical pathology 09/12/19 Telephone [facility] Surgery [address] [place] [address] [address] [place] [address] Susan Marroquin RN 09/07/19 Orders Only [facility] [address] [place] [address] David Brewer MD 09/07/19 1:07 PM CDT Anesthesia Event [facility] [address] [place] [phone] Wayne Nicholson MD 09/07/19 10:35 AM CDT Lab [facility] Outpatient Lab [address] [place] [address] Pancreatic mass; Elevated liver function tests 09/07/19 25 6:50 AM CDT - 09/07/19 25 11:59 PM CDT Hospital Encounter [facility] [address] [place] [phone] Upper abdominal pain Discharge Disposition: Discharge to home or self care 09/07/19 12:30 PM CDT - 09/07/19 25 1:00 PM CDT Surgery [facility] [address] [place] [phone] David Brewer MD ESOPHAGOGASTRODUODENOSCOPY ULTRASOUND GUIDE LIMITED 09/07/19 11:07 AM CDT - 09/07/19 25 4:10 PM CDT Hospital Encounter [facility] [address] [place] [address] Geoffrey Shaver MD Das, Koushik Kumar, MD Pancreatic mass; Elevated liver function tests Discharge Disposition: Discharge to home or self care 09/06/19 25 1:04 PM CDT - 09/06/19 25 11:59 PM CDT Hospital Encounter [facility] ([facility]) [address] [place] [address] Diagnosis unknown Discharge Disposition: Discharge to home or self care 09/05/19 Telephone [facility] Cardiology [address] [facility] [address], [place] [address] Onesimo George MD cardiac clearance 09/05/19 Telephone [facility] Gastroenterology [address] [facility] Medical Office Building 4, [address] [place] [address] Carmen Ordonez LPN GI Preprocedure 09/04/19 Telephone [facility] [address] [facility] 12th Floor, [place] [phone] Daisy Mercado MD Medical Question/Miscellaneous 09/03/19 25 Orders Only [facility] Surgery [address] [facility] [address] [place] [phone] Ana Sánchez PA Pancreatic mass (Primary Dx); [...] 06/21/2022 Assessment & Plan (06/21/2022 7:25 PM INTERNATIONAL ACCOUNT REPRESENTATIVE): Worsening after of her mother in 04/2022. Feels more anxiety than depression. Admits panic attacks. Reluctant to start daily medication, don't want to feel trapped into taking medicine. Will Rx BuSpar as directed. Encouraged relaxation techniques such as deep breathing and guided imagery. Keep follow as scheduled, sooner if needed. Diarrhea 06/20/2022 Assessment & Plan (06/21/2022 7:16 PM INTERNATIONAL ACCOUNT REPRESENTATIVE): Ongoing for approximately 1 week after finishing a course of cefdinir for UTI. No more urinary symptoms or abdominal pain. No acute findings on exam. Will order CDiff test. Advised on Bowel rest: push fluids, bland high fiber diet. Continue immodium if needed. Vulvovaginitis 06/20/2022 Assessment & Plan (06/21/2022 7:17 PM INTERNATIONAL ACCOUNT REPRESENTATIVE): S/p cefdinir course for UTI. Denies discharge or genital lesions. exam deferred per pt request. Rxd Diflucan as directed. Use mild non-fragrant soaps/lotions. Recurrent UTI 06/08/2022 Assessment & Plan (06/08/2022 2:35 PM INTERNATIONAL ACCOUNT REPRESENTATIVE): Currently on Abx for treatment. Patient [...] 12/23/2021 Assessment & Plan (06/21/2022 7:12 PM INTERNATIONAL ACCOUNT REPRESENTATIVE): BP stable in office today on current therapy. Continue current regimen and low salt diet. Stay hydrated. Assessment & Plan (06/08/2022 2:36 PM INTERNATIONAL ACCOUNT REPRESENTATIVE): Chronic and mildly elevated. Goal < [...] 12/23/2021 Assessment & Plan (06/08/2022 2:35 PM INTERNATIONAL ACCOUNT REPRESENTATIVE): Chronic and stable. 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 with prep cook Assessment & Plan (12/23/2021 12:10 PM CDT): [...] materials from doctor or pharmacy Never 04/11/2023 [facility] Utilities Answer Date Recorded In the past 12 months has th e [employer], [employer], oil, or water [employer] threatened to shut off services in your [...] How often do you attend chur or jew services? Never 02/27/2023 Do you belong to any clubs o r organizations such as buddhism groups, unions, fraternal or athletic groups, or [...] on file Legal Sex Female 6:30 PM INTERNATIONAL ACCOUNT REPRESENTATIVE Gender Identity Not on file Sexual [...] on file Medical Devices Implanted Type Area Drug Safety Specialist Device Identifier Shelf Expiration Date Model / Serial / Lot Conmed Chris Viabil 10mm X 6cm Shortwire [id number] - [id number] - [id number] Implanted:Qty: 1 on 09/06/2024 by David Brewer MD at [facility] Stent N/A: Bile Duct Conmed Chris 06/19/2027 [id number] / [id number] / [employer] Excela Low Porfile Power Port 8fr 1.6mm 1 Lumen [id number] - [id number] Implanted:Qty: 1 on 10/10/2024 at [facility] [employer] 05/07/2029 [id number] / / [id number] Procedures Procedure Name Priority Date/Time Associated Diagnosis [...] STAT 4:00 PM CDT Pancreatic adenocarcinoma (HCC) [id number] Routine 10/07/2024 3:52 PM CDT Pancreatic adenocarcinoma [...] was last reviewed 2021. Testing performed by: [facility], [address] [place] [address] Blood 10/17/2024 10:0 6 AM CDT 10/17/2024 10:26 AM CDT Haven Cox MD LAB BLOOD ORDERABLES Gail l Result [facility] [address] [place]. Department of Laboratories [place], [place] [phone] * Differential, auto (10/17/2024 10:06 AM CDT) [facility] Neutrophil abs 3.45 1.50 - 6.50 K/cumm Comment:Testing performed by : [facility], MOB 2, [address] [place] [address] Imm gran abs 0.02 0.00 - 0.10 K/cumm ENRIQUE TORRES Comment:Testing performed by : [facility], [address] [address], [address] [place] [address] Lymphocyte abs 1.10 0.80 - 3.30 K/cumm CERNER BJWCH Comment:Testing performed by : [facility], [facility], [address] [place] [address] Monocyte abs 0.28 0.20 - 0.80 K/cumm CERNER BJWCH Comment:Testing performed by : [facility], [facility], [address] [place] [address] Eosinophil abs 0.05 0.00 - 0.50 K/cumm CERNER BJWCH Comment:Testing performed by : [facility], [facility], [address] [place] [address] Basophil abs 0.01 0.00 - 0.10 K/cumm CERNER BJWCH Comment:Testing performed by : [facility], [facility], [address] [place] [address] Neutrophil pct 70.3 % CERNER BJWCH Comment: Interpretive Data Percent cell count reference ranges are not reported, since discordance with absolute values may lead to misinterpretation of CBC data. Current Interpretive Data was last revised on 2017. Testing performed by: [facility], [facility], [address] [place] [address] Imm gran pct 0.4 % CERNER BJWCH Comment: Interpretive Data Percent cell count reference ranges are not reported, since discordance with absolute values may lead to misinterpretation of CBC data. Current Interpretive Data was last revised on 2017. Testing performed by: [facility], [facility], [address] [place] [address] Lymphocyte pct 22.4 % CERNER BJWCH Comment: Interpretive Data Percent cell count reference ranges are not reported, since discordance with absolute values may lead to misinterpretation of CBC data. Current Interpretive Data was last revised on 2017. Testing performed by: [facility], [facility], [address] [place] [address] Monocyte pct 5.7 % CERNER BJWCH Comment: Interpretive Data Percent cell count reference ranges are not reported, since discordance with absolute values may lead to misinterpretation of CBC data. Current Interpretive Data was last revised on 2017. Testing performed by: [facility], [facility], [address] [place] [address] Eosinophil pct 1.0 % ENRIQUE TORRES Comment: Interpretive Data Percent cell count reference ranges are not reported, since discordance with absolute values may lead to misinterpretation of CBC data. Current Interpretive Data was last revised on 2017. Testing performed by: [facility] 2, [address] [place] [address] Basophil pct 0.2 % ENRIQUE TORRES Comment: Interpretive Data Percent cell count reference ranges are not reported, since discordance with absolute values may lead to misinterpretation of CBC data. Current Interpretive Data was last revised on 2017. Testing performed by: [facility] 2, [address] [place] [address] Blood 10/17/2024 10:0 6 AM CDT 10/17/2024 10:09 AM CDT [facility] MD LAB BLOOD ORDERABLES Gail l Result [facility] [address] [facility]. Department [place] [address] * (ABNORMAL) CBC with auto differential (10/17/2024 10:06 AM CDT) WBC 4.91 3.80 - 9.90 K/cumm Comment:Testing performed by : [facility], [facility], [address] [place] [address] Hgb 9.0(L) 11.9 - 15.5 g/dL ENRIQUE TORRES Comment:Testing performed by : [facility] 2, [address] [place] [address] Hct 28.8(L) 35.6 - 45.5 % ENRIQUE TORRES Comment:Testing performed by : [facility] 2, [address] [place] [address] Plt 202 150 - 400 K/cumm CERNER BJWCH Comment:Testing performed by : [facility], [facility], [address] [place] [address] MPV 9.2 9.1 - 12.3 fL CERNER BJWCH Comment:Testing performed by : [place] [address], [address] [place] [address] RBC 3.15(L) 3.90 - 5.20 M/cumm CERNER BJWCH Comment:Testing performed by : [facility], [facility], [address] [place] [address] MCV 91.4 81.3 - 96.4 fL CERNER BJWCH Comment:Testing performed by : [place] [address], [address] [place] [address] MCH 28.6 27.1 - 33.3 pg CERNER BJWCH Comment:Testing performed by : [facility], [facility], [address] [place] [address] MCHC 31.3(L) 32.3 - 35.7 g/dL CERNER BJWCH Comment:Testing performed by : [place] [address], [address] [place] [address] RDW CV 15.0(H) 11.1 - 14.9 % CERNER BJWCH Comment:Testing performed by : [facility] 2, [address] [place] [address] RDW SD 50.7(H) 35.7 - 48.1 fL CERNER BJWCH Comment:Testing performed by : [place] [address], [address] [place] [address] ANC Prelim 3.45 1.50 - 6.50 K/cumm CERNER BJWCH Comment: Interpretive Data The rapid ANC is a preliminary automated count and may vary from the final ANC (Neut Abs) reported in the WBC differential that follows. Current interpretive data was last revised 2024. Testing performed by: [facility], M[facility] [address], [address], [place], [place] [address] Blood 10/17/2024 10:0 6 AM CDT 10/17/2024 10:09 AM CDT Haven Cox MD LAB BLOOD ORDERABLES Gail l Result [facility] [address] Department [place] [address] * (ABNORMAL) Comprehensive metabolic panel (10/17/2024 10:06 AM CDT) Sodium 139 135 - 145 mmol/L Comment:Testing performed by : [facility], [address] [place] [address] Potassium, pl 4.0 3.3 - 4.9 mmol/L ENRIQUE TORRES Comment:Testing performed by : [facility], [address] [place] [address] Chloride 104 97 - 110 mmol/L ENRIQUE TORRES Comment:Testing performed by : [facility], [address] [place] [address] CO2 28 22 - 32 mmol/L ENRIQUE TORRES Comment:Testing performed by : [facility], [address] [place] [address] Anion gap 7 2 - 15 mmol/L ENRIQUE TORRES Comment:Testing performed by : [facility], [address] [place] [address] BUN 15 6 - 25 mg/dL ENRIQUE TORRES Comment:Testing performed by : [facility], [address] [place] [address] Creatinine 0.70 0.60 - 1.10 mg/dL ENRIQUE TORRES Comment:Testing performed by : [facility], [address] [place] [address] Glucose 90 70 - 199 mg/dL ENRIQUE [...] was last revised 2022. Testing performed by: [facility], [address], [place] [address] Calcium 8.8 8.5 - 10.3 mg/dL CERNER BJWCH Comment:Testing performed by : [facility], [address], [place] [address] Bilirubin, total 0.6 0.1 - 1.2 mg/dL CERNER BJWCH Comment:Testing performed by : [facility], [address], [place] [address] Protein, pl 5.8(L) 6.5 - 8.5 g/dL CERNER BJWCH Comment:Testing performed by : [facility], [address], [place] [address] Albumin 3.3(L) 3.5 - 5.0 g/dL CERNER BJWCH Comment:Testing performed by : [facility], [address], [place] [address] Alk phos 325(H) 40 - 130 Units/L CERNER BJWCH Comment:Testing performed by : [facility], [address], [place] [address] ALT 29 7 - 45 Units/L CERNER BJWCH Comment:Testing performed by : [facility], [address], [place] [address] AST 27 10 - 45 Units/L CERNER BJWCH Comment:Testing performed by : [facility], [address], [place] [address] Blood 10/17/2024 10:0 6 AM CDT 10/17/2024 10:26 AM CDT Haven Cox MD LAB BLOOD ORDERABLES Gail l Result Performing Organization Address [facility] Co de Phone Number ENRIQUE BRADFORDCH [address] [place] [address] * eGFR (10/14/2024 8:30 AM CDT) eGFR [...] was last reviewed 2021. Testing performed by: [facility], [address] [facility], [place] [address] Blood 10/14/2024 8:30 AM CDT 10/14/2024 8:54 AM CDT Haven Cox MD LAB BLOOD ORDERABLES Gail l Result Performing Organization Address [facility] Co de Phone Number ENRIQUE BETANCOURTCH [address] [employer]. [place] [address] * Differential, auto (10/14/2024 8:30 AM CDT) Neutrophil abs 3.00 1.50 - 6.50 K/cumm Comment:Testing performed by : [facility], [facility], [address] [place] [address] Imm gran abs 0.00 0.00 - 0.10 K/cumm CERNER BJWCH Comment:Testing performed by : [facility], [facility], [address] [place] [address] Lymphocyte abs 1.24 0.80 - 3.30 K/cumm CERNER BJWCH Comment:Testing performed by : [facility], [facility], [address] [place] [address] Monocyte abs 0.80 0.20 - 0.80 K/cumm CERNER BJWCH Comment:Testing performed by : [facility], [facility], [address] [place] [address] Eosinophil abs 0.12 0.00 - 0.50 K/cumm CERNER BJWCH Comment:Testing performed by : [facility], [facility], [address] [place] [address] Basophil abs 0.03 0.00 - 0.10 K/cumm CERNER BJWCH Comment:Testing performed by : [facility], [facility], [address] [place] [address] Neutrophil pct 57.8 % CERNER BJWCH Comment: Interpretive Data Percent cell count reference ranges are not reported, since discordance with absolute values may lead to misinterpretation of CBC data. Current Interpretive Data was last revised on 2017. Testing performed by: [facility], [facility], [address] [place] [address] Imm gran pct 0.0 % CERNER BJWCH Comment: Interpretive Data Percent cell count reference ranges are not reported, since discordance with absolute values may lead to misinterpretation of CBC data. Current Interpretive Data was last revised on 2017. Testing performed by: [facility], [facility], [address] [place] [address] Lymphocyte pct 23.9 % CERNER BJWCH Comment: Interpretive Data Percent cell count reference ranges are not reported, since discordance with absolute values may lead to misinterpretation of CBC data. Current Interpretive Data was last revised on 2017. Testing performed by: [facility], [facility], [address] [place] [address] Monocyte pct 15.4 % ENRIQUE TORRES Comment: Interpretive Data Percent cell count reference ranges are not reported, since discordance with absolute values may lead to misinterpretation of CBC data. Current Interpretive Data was last revised on 2017. Testing performed by: [facility], [facility], [address] [place] [address] Eosinophil pct 2.3 % ENRIQUE TORRES Comment: Interpretive Data Percent cell count reference ranges are not reported, since discordance with absolute values may lead to misinterpretation of CBC data. Current Interpretive Data was last revised on 2017. Testing performed by: [facility], [address] [place] [address] Basophil pct 0.6 % ENRIQUE TORRES Comment: Interpretive Data Percent cell count reference ranges are not reported, since discordance with absolute values may lead to misinterpretation of CBC data. Current Interpretive Data was last revised on 2017. Testing performed by: [facility], [address] [place] [address] Blood 10/14/2024 8:30 AM CDT 10/14/2024 8:33 AM CDT [facility]Maurisio Cox MD LAB BLOOD ORDERABLES Gail l Result ENRIQUE [facility] [address] [facility]. Department [place] [address] * (ABNORMAL) CBC with auto differential (10/14/2024 8:30 AM CDT) WBC 5.19 3.80 - 9.90 K/cumm Comment:Testing performed by : [facility], [address] [place] [address] Hgb 8.8(L) 11.9 - 15.5 g/dL CERNER BJWCH Comment:Testing performed by : [place] [address], [address], [place] [address] Hct 27.5(L) 35.6 - 45.5 % CERNER BJWCH Comment:Testing performed by : [place] [address], [address], [place] [address] Plt 209 150 - 400 K/cumm CERNER BJWCH Comment:Testing performed by : [place] [address], [address], [place] [address] MPV 9.7 9.1 - 12.3 fL CERNER BJWCH Comment:Testing performed by : [place] [address], [place] [address] RBC 3.04(L) 3.90 - 5.20 M/cumm CERNER BJWCH Comment:Testing performed by : [place] [address], [address], [place] [address] MCV 90.5 81.3 - 96.4 fL CERNER BJWCH Comment:Testing performed by : [place] [address], [address] [place] [address] MCH 28.9 27.1 - 33.3 pg CERNER BJWCH Comment:Testing performed by : [place] [address], [address], [place] [address] MCHC 32.0(L) 32.3 - 35.7 g/dL CERNER BJWCH Comment:Testing performed by : [place] [address], [address], [place] [address] RDW CV 14.4 11.1 - 14.9 % CERNER BJWCH Comment:Testing performed by : [place] [address], [address], [place] [address] RDW SD 47.6 35.7 - 48.1 fL CERNER BJWCH Comment:Testing performed by : [place] [address], [address] [place] [address] ANC Prelim 3.00 1.50 - 6.50 K/cumm ENRIQUE TORRES Comment: Interpretive Data The rapid ANC is a preliminary automated count and may vary from the final ANC (Neut Abs) reported in the WBC differential that follows. Current interpretive data was last revised 2024. Testing performed by: [facility], [facility], [address] [place] [address] Blood 10/14/2024 8:30 AM CDT 10/14/2024 8:33 AM CDT Haven Cox MD LAB BLOOD ORDERABLES Gail l Result Performing Organization Address [facility] de Phone Number [facility] [address] [employer]. [facility] [place] [address] * (ABNORMAL) Cancer antigen 19-9 (10/14/2024 8:30 AM CDT) CA 19-9 ag 46.8(H) 0.0 - 35.0 units/mL Comment: Interpretive Data The Sree CA 19-9 assay procedure was used. Results from different manufacturers or methods may not be comparable. Serial testing should be performed using the same method. Testing performed by: [facility], [facility], [place]., [address] Blood 10/14/2024 8:30 AM CDT 10/14/2024 10:46 AM CDT Haven Cox MD LAB BLOOD ORDERABLES Gail l Result Performing Organization Address City/[facility]/ZIP Co de Phone Number [facility] [address] [employer] [address] * TSH (10/14/2024 8:30 AM CDT) Thyroid Stimulating Hormone 0.52 0.30 - 4.20 mcIUnit/mL Comment:Testing performed by : [facility], [address] [place] [address] Blood 10/14/2024 8:30 AM CDT 10/14/2024 8:54 AM CDT [facility] MD LAB BLOOD ORDERABLES Gail l Result Performing Organization Address [facility] de Phone Number [facility] BJWCH [address] Department [place] [address] * (ABNORMAL) T4, free (10/14/2024 8:30 AM CDT) Pathologist [facility] Free T4 1.95(H) 0.90 - 1.70 ng/dL Comment:Testing performed by : [facility], [address] [place], [place] [address] Blood 10/14/2024 8:30 AM CDT 10/14/2024 8:54 AM CDT [facility] Cox MD LAB BLOOD ORDERABLES Gail l Result Performing Organization Address [facility] de Phone Number [facility] [address] Department [place] [address] * (ABNORMAL) Comprehensive metabolic panel (10/14/2024 8:30 AM CDT) Pathologist [facility] Sodium 138 135 - 145 mmol/L Comment:Testing performed by : [facility], [address] [place] [address] Potassium, pl 3.7 3.3 - 4.9 mmol/L ENRIQUE BRADFORD Comment:Testing performed by : [facility], [address], [place] [address] Chloride 103 97 - 110 mmol/L ENRIQUE BRADFORD Comment:Testing performed by : [facility], [address] [place] [address] CO2 23 22 - 32 mmol/L CERNER BJWCH Comment:Testing performed by : [facility], [address], [place] [address] Anion gap 12 2 - 15 mmol/L CERNER BJWCH Comment:Testing performed by : [facility], [address], [place] [address] BUN 14 6 - 25 mg/dL CERNER BJWCH Comment:Testing performed by : [facility], [address], [place] [address] Creatinine 0.74 0.60 - 1.10 mg/dL CERNER BJWCH Comment:Testing performed by : [facility], [address], [place] [address] Glucose 94 70 - 199 mg/dL CERNER [...] was last revised 2022. Testing performed by: [facility], [address], [place] [address] Calcium 9.1 8.5 - 10.3 mg/dL CERNER BJWCH Comment:Testing performed by : [facility], [address], [place] [address] Bilirubin, total 0.6 0.1 - 1.2 mg/dL CERNER BJWCH Comment:Testing performed by : [facility], [address], [place] [address] Protein, pl 5.7(L) 6.5 - 8.5 g/dL CERNER BJWCH Comment:Testing performed by : [facility], [address], [place] [address] Albumin 3.4(L) 3.5 - 5.0 g/dL CERNER BJWCH Comment:Testing performed by : [facility], [address], [place] [address] Alk phos 387(H) 40 - 130 Units/L CERNER BJWCH Comment:Testing performed by : [facility], [address], [place] [address] ALT 37 7 - 45 Units/L CERNER BJWCH Comment:Testing performed by : [facility], [address], [place] [address] AST 22 10 - 45 Units/L CERNER BJWCH Comment:Testing performed by : [facility], [address], [place] [address] Blood 10/14/2024 8:30 AM CDT 10/14/2024 8:54 AM CDT [facility]Maurisio Cox MD LAB BLOOD ORDERABLES Gail l Result ENRIQUE TORRES [address] Department [place] [address] * IR Port Placement Chest > 5 Years (10/10/2024 10:16 AM CDT) Anatomical Region Laterality Modality Chest N/A X-Ray Angiograph y 10/10/2024 10:3 1 AM CDT Impressions 10/10/2024 10:31 AM CDT Successful chest wall port placement. PLAN: The catheter is ready for immediate use. Please note that a power injectable port was placed. When treatment is completed, removal can be scheduled by calling [facility] - [phone] [facility] - [phone] Electronically signed by: Feliciano Martinez PA-C Narrative [...] was obtained. Prior to beginning the procedure, [place] Protocol was used to confirm the patient's [...] was obtained. Prior to beginning the procedure, [place] Protocol was used to confirm the patient's [...] completed, removal can be scheduled by calling [facility] - [phone] [facility] - [phone] Electronically signed by: Feliciano Martinez PA-C us [facility]Maurisio Cox MD IMG IR PROCEDURES Final R [...] obtained. The study was interpreted on the Simio workstation. The mean liver SUV (reported for quality worker purposes) is 1.7. The total scanned area [...] obtained. The study was interpreted on the Simio workstation. The mean liver SUV (reported for quality worker purposes) is 1.7. The total scanned area [...] it. Electronically signed by: Johan Krishna MD [facility]Maurisio Cox MD IM PET PROCEDURES Final Result [...] was last reviewed 2021. Testing performed by: [facility], [address] [place] [address] Blood 10/07/2024 4:00 PM CDT 10/07/2024 4:36 PM CDT [facility]Maurisio Cox MD LAB BLOOD ORDERABLES Gail l Result [facility] [address]. Department [place] [address] * (ABNORMAL) Differential, auto (10/07/2024 4:00 PM CDT) Neutrophil abs 4.52 1.50 - 6.50 K/cumm Comment:Testing performed by : [facility], [facility], [address] [place] [address] Imm gran abs 0.01 0.00 - 0.10 K/cumm ENRIQUE TORRES Comment:Testing performed by : [facility], [address] [place] [address] Lymphocyte abs 0.48(L) 0.80 - 3.30 K/cumm ENRIQUE TORRES Comment:Testing performed by : [facility] 2, [address] [place] [address] Monocyte abs 0.37 0.20 - 0.80 K/cumm ENRIQUE TORRES Comment:Testing performed by : [facility] 2, [address] [place] [address] Eosinophil abs 0.01 0.00 - 0.50 K/cumm ENRIQUE TORRES Comment:Testing performed by : [facility] 2, [address] [place] [address] Basophil abs 0.01 0.00 - 0.10 K/cumm CERNER BJWCH Comment:Testing performed by : [facility], [facility], [address] [place] [address] Neutrophil pct 83.6 % CERNER BJWCH Comment: Interpretive Data Percent cell count reference ranges are not reported, since discordance with absolute values may lead to misinterpretation of CBC data. Current Interpretive Data was last revised on 2017. Testing performed by: [facility], [facility], [address] [place] [address] Imm gran pct 0.2 % CERNER BJWCH Comment: Interpretive Data Percent cell count reference ranges are not reported, since discordance with absolute values may lead to misinterpretation of CBC data. Current Interpretive Data was last revised on 2017. Testing performed by: [facility], [facility], [address] [place] [address] Lymphocyte pct 8.9 % CERNER BJWCH Comment: Interpretive Data Percent cell count reference ranges are not reported, since discordance with absolute values may lead to misinterpretation of CBC data. Current Interpretive Data was last revised on 2017. Testing performed by: [facility], [facility], [address] [place] [address] Monocyte pct 6.9 % CERNER BJWCH Comment: Interpretive Data Percent cell count reference ranges are not reported, since discordance with absolute values may lead to misinterpretation of CBC data. Current Interpretive Data was last revised on 2017. Testing performed by: [facility], [facility], [address] [place] [address] Eosinophil pct 0.2 % CERNER BJWCH Comment: Interpretive Data Percent cell count reference ranges are not reported, since discordance with absolute values may lead to misinterpretation of CBC data. Current Interpretive Data was last revised on 2017. Testing performed by: [facility], [facility], [address] [place] [address] Basophil pct 0.2 % ENRIQUE TORRES Comment: Interpretive Data Percent cell count reference ranges are not reported, since discordance with absolute values may lead to misinterpretation of CBC data. Current Interpretive Data was last revised on 2017. Testing performed by: [facility], [address] [place] [address] Blood 10/07/2024 4:00 PM CDT 10/07/2024 4:01 PM CDT us Haven Cox MD LAB BLOOD ORDERABLES Gail l Result EN[facility]QUE [facility]RTJOHN [facility] [address] [facility]. Department [place] [address] * (ABNORMAL) CBC with auto differential (10/07/2024 4:00 PM CDT) WBC 5.40 3.80 - 9.90 K/cumm Comment:Testing performed by : [facility], [facility], [address] [place] [address] Hgb 9.0(L) 11.9 - 15.5 g/dL ENRIQUE TORRES Comment:Testing performed by : [facility], [address] [place] [address] Hct 28.7(L) 35.6 - 45.5 % ENRIQUE TORRES Comment:Testing performed by : [facility], [address] [place] [address] Plt 185 150 - 400 K/cumm ENRIQUE TORRES Comment:Testing performed by : [place] [address], [address] [place] [address] MPV 9.1 9.1 - 12.3 fL ENRIQUE TORRES Comment:Testing performed by : [facility] 2, [address] [place] [address] RBC 3.06(L) 3.90 - 5.20 M/cumm ENRIQUE TORRES Comment:Testing performed by : [facility], [facility], [address] [place] [address] MCV 93.8 81.3 - 96.4 fL ENRIQUE BETANCOURTJOHN [facility]. [facility] Comment:Testing performed by : [facility] 2, [address] [place] [address] MCH 29.4 27.1 - 33.3 pg ENRIQUE BRADFORD Comment:Testing performed by : [facility] 2, [address] [place] [address] MCHC 31.4(L) 32.3 - 35.7 g/dL ENRIQUE BETANCOURTJOHN [facility] Comment:Testing performed by : [facility] 2, [address] [place] [address] RDW CV 15.4(H) 11.1 - 14.9 % ENRIQUE BETANCOURTJOHN [facility]. [facility] Comment:Testing performed by : [place] [address], [address] [place] [address] RDW SD 53.6(H) 35.7 - 48.1 fL ENRIQUE BETANCOURTJOHN [facility]. [facility] Comment:Testing performed by : [place] [address], [address] [place] [address] ANC Prelim 4.52 1.50 - 6.50 K/cumm ENRIQUE BETANCOURTJOHN [facility]. [facility] Comment: Interpretive Data The rapid ANC is a preliminary automated count and may vary from the final ANC (Neut Abs) reported in the WBC differential that follows. Current interpretive data was last revised 2024. Testing performed by: [facility], [address] [place] [address] Blood 10/07/2024 4:00 PM CDT 10/07/2024 4:01 PM CDT us Ibeth'Maurisio Cox MD LAB BLOOD ORDERABLES Gail radha Result ENRIQUE BETANCOURTJOHN [facility] [address] [facility] [employer] [place], [place] [phone] * (ABNORMAL) Cancer antigen 19-9 (10/07/2024 4:00 PM CDT) CA 19-9 ag 79.3(H) 0.0 - 35.0 units/mL Comment: Interpretive Data The Sree CA 19-9 assay procedure was used. Results from different manufacturers or methods may not be comparable. Serial testing should be performed using the same method. Testing performed by: [facility], [address] [place] [address]., [address] Blood 10/07/2024 4:00 PM CDT 10/07/2024 6:08 PM CDT us Haven Cox MD LAB BLOOD ORDERABLES Gail l Result [facility] [address] [facility]. Department [place] [address] * (ABNORMAL) Protime-INR (10/07/2024 4:00 PM CDT) PT 14.2(H) 9.7 - 13.0 sec Comment:Testing performed by : [facility], [address] [facility] [address] INR 1.31(H) 0.90 - 1.20 ENRIQUE BRADFORDCH Comment: Interpretive data Oral anticoagulant therapeutic ranges: Venous thromboembolism prophylaxis or treatment: 2.0-3.0 CARDIOLOGY Standard range: 2.0-3.0 High-intensity range: 2.5-3.5 Refer to indication-specific guidelines for appropriate target ranges for prosthetic heart valve replacement. Current interpretive data was last revised on 2019. Testing performed by: [facility], [address] [facility] [address] Blood 10/07/2024 4:00 PM CDT 10/07/2024 4:36 PM CDT us Haven Cox MD LAB BLOOD ORDERABLES Gail l Result [facility]INJ[facility] [address] [address] Department of Laboratories [place], [place] [id number] * (ABNORMAL) Comprehensive metabolic panel (10/07/2024 4:00 PM CDT) Sodium 141 135 - 145 mmol/L Comment:Testing performed by : [facility], [address], [place] [address] Potassium, pl 4.2 3.3 - 4.9 mmol/L CERNER BJW Comment:Testing performed by : [facility], [address], [place] [address] Chloride 105 97 - 110 mmol/L CERNER BJWCH Comment:Testing performed by : [facility], [address], [place] [address] CO2 26 22 - 32 mmol/L CERNER BJWCH Comment:Testing performed by : [facility], [address], [place] [address] Anion gap 11 2 - 15 mmol/L CERNER BJWCH Comment:Testing performed by : [facility], [address], [place] [address] BUN 13 6 - 25 mg/dL CERNER BJWCH Comment:Testing performed by : [facility], [address], [place] [address] Creatinine 0.71 0.60 - 1.10 mg/dL CERNER BJWCH Comment:Testing performed by : [facility], [address], [place] [address] Glucose 106 70 - 199 mg/dL CERNER [...] was last revised 2022. Testing performed by: [facility], [address], [place] [address] Calcium 9.6 8.5 - 10.3 mg/dL CERNER BJWCH Comment:Testing performed by : [facility], [address], [place] [address] Bilirubin, total 1.8(H) 0.1 - 1.2 mg/dL CERNER BJWCH Comment:Testing performed by : [facility], [address], [place] [address] Protein, pl 6.2(L) 6.5 - 8.5 g/dL CERNER BJWCH Comment:Testing performed by : [facility], [address], [place] [address] Albumin 3.6 3.5 - 5.0 g/dL CERNER BJWCH Comment:Testing performed by : [facility], [address], [place] [address] Alk phos 794(H) 40 - 130 Units/L CERNER BJWCH Comment:Testing performed by : [facility], [address], [place] [address] ALT 107(H) 7 - 45 Units/L CERNER BJWCH Comment:Testing performed by : [facility], [address], [place] [address] AST 240(H) 10 - 45 Units/L CERNER BJWCH Comment:Testing performed by : [facility], [address], [place] [address] Blood 10/07/2024 4:00 PM CDT 10/07/2024 4:36 PM CDT Ibeth'Maurisio Cox MD LAB BLOOD ORDERABLES Gail garcia Result [facility] [address] [place] [address] * [id number] (10/07/2024 3:52 PM CDT) MSI-HIGH NOT DETECTED 10/14/2024 7:47 PM CDT [facility] TMB 4.75 mut/Mb 10/14/2024 7:47 PM CDT [facility] HRD Not detected 10/14/2024 7:47 PM CDT [facility] TUMOR FRACTION 0.4% 10/14/2024 7:47 PM CDT [facility] Chip TET2 Q644* (0.5%) 10/14/2024 7:47 PM CDT [facility] Blood specimen (specimen) Venous blood specimen / Unknown 10/07/2024 3:52 PM CDT 10/09/2024 11:07 AM CDT Narrative This result has genomic variants that were not included in this document. Haven Cox MD LAB GENETIC TESTING Final Result [facility] [address] [phone] [facility] [address] [place] [address] * POCT lipid panel (09/27/2024 1:34 PM [...] Biopsy) 09/19/2024 1:07 PM CDT Narrative PATHOLOGY [facility] - 09/20/2024 2:24 PM CDT EPIC results best viewed via link to PDF [facility] [place] [address] Note to Patients: This report may contain [...] Gender: F : 1950 (Age: 73) Address: [address] [place] [address] Hospital #: [id number] Taken:09/19/2024 Received:09/19/2024 Reported: 09/20/2024 Patient Type: [facility] ED Service: Emergency Location: [facility] ED Physician(s): Puma Wagner M.D. Natasha Leah Goldie Leigh, MD Diagnosis: Pancreas, neck, mass, fine needle biopsy - Rare atypical glands/single cells and focal perineural invasion, compatible with invasive pancreatic adenocarcinoma - Scant tumor cellularity; likely insufficient for further molecular testing [facility]/09/20/2024 14:24 By this signature, I attest that [...] Surgical Pathology and Flow Cytometry Departments at [facility] as part of an ongoing auditor/quality program and in compliance with federally mandated [...] Surgical Pathology and Flow Cytometry Departments of [facility]. It has not been cleared or approved by the U. S. Food and Drug Administration. IMAGES AND SCANNED DOCUMENTS, IF INCLUDED, ONLY VIEWABLE IN PDF VERSION OF REPORT us David Brewer MD LAB PATHOLOGY ORDERABLES Fi nal Result PATHOLOGY [facility] 3rd Floor [place], [place] [phone] * Upper EUS (09/19/2024 12:32 PM CDT) Anatomical Region Laterality Modality Other Narrative Procedure Note David Brewer MD - 09/19/2024 12:32 PM CDT [facility] Patient Name: Susannah Goncalves Procedure Date: 09/19/2024 12:32 PM Date of : 1950 Admit Type: Outpatient Age: 73 Gender: Female Attending MD: David Brewer M.D. Room: [facility] ENDOSCOPY ROOM 1 Note Status: Finalized [...] consent was obtained.The Olympuscurved linear array therapeutic [id number] was introduced through the mouth, and advanced [...] Three passes were madewith the 22 gauge Loaded Pocket needle using a transgastric approach. A stylet [...] following this procedure please call my officeat [phone] ([phone]) to speak to my nurses. After hours and evenings please call [phone] speak to the GI fellow extrusion former. Please tell themthat Dr. Brewer did your procedure and that your were instructed to have the fellow call me or thephysician covering for me to discuss the management of your condition. If you have an urgent problem, please goto the nearest emergency room and have the ER doctorcall my office during the day or [facility] transfer ([phone]) center after hours and weekends to arrange admission or transfer to our facility. - Call my nurse Arlyn Segovia RN in the GI office at [phone] for your final pathology results in 7 [...] using the same method. Testing performed by: [facility], [address] [place] [address]., [address] Blood 09/17/2024 10:3 2 AM CDT 09/17/2024 7:30 PM CDT Ana RODRIGUES LAB BLOOD ORDERABLES Gail radha Result [facility] [address] [facility]. [place] [address] * (ABNORMAL) CEA (09/17/2024 10:32 AM CDT) CEA 5.2(H) <=5.0 ng/mL Comment: Interpretive Data Reference Range: Non-Smokers: < or = 3.0 ng/mL Some Smokers may have elevated levels, usually < 5.0 ng/mL The Sree CEA assay procedure was used. Results from different manufacturers or methods may not be comparable. Serial testing should be performed using the same method. Testing performed by: [facility], [address] [place] [address]., [address] Blood 09/17/2024 10:3 2 AM CDT 09/17/2024 7:30 PM CDT us Ana RODRIGUES LAB BLOOD ORDERABLES Gail garcia Result [facility] [id number] [address] Department [place] [address] * CT Chest W and Abdomen Pelvis [...] Biliary Duct (09/06/2024 1:42 PM CDT) Narrative [facility] - 09/06/2024 1:53 PM CDT The images from this study are not interpreted by Radiology. Please refer to the physician's procedure / OR operative note. David Brewer MD IMG FLUOROSCOPY PROCEDURES Final Result [facility] * Surgical pathology (09/06/2024 1:25 PM CDT) Lymph node, needle biopsy 09/06/2024 1:25 PM CDT 09/10/2024 11:26 AM CDT Narrative 09/11/2024 3:14 PM CDT [address] [address] Tele: Roxana Gordon MD - Property And Supply Officer Note to Patients: This report may contain [...] PATHOLOGY REPORT Patient Name: SUSANNAH GONCALVES [address]: [address] [place] [address], [place] [address] Gender: F : 1950 (Age: 73) Service: Gastro Location: [facility], Hospital #: [id number] Patient Type: [facility] SAME DAY SURGERY Taken: 09/06/2024 Received 09/10/2024 [...] filtered and submitted entirely in cassette A1. [facility] MICROSCOPIC DESCRIPTION: Microscopic examination shows multiple fragments of pancreatic parenchyma. There are focal slightly irregular glands with minimal nuclear atypia. An immunostain for p53 shows wild type staining in these glands. There is no definitive malignancy identified. Clinical correlation and follow-up is needed. Clerical Data Follows A; [id number], 98615, 14738 <CR>, [id number] REPORT IMAGES AND/OR SCANNED DOCUMENTS ONLY VIEWABLE IN PDF FORMAT The immunohistochemical test(s) cited in this report, if any, was developed and its performance characteristics determined by [facility] Pathology Department. It has not been cleared or approved by the U.S. Food and Drug Administration. The FDA has determined that such clearance or approval is not necessary. This test is used for clinical purposes. It should not be regarded as investigational or for research. [facility] Laboratory is certified under the Clinical [...] part or completely in the following laboratories: [facility], [facility] [place], [place] [address] [place] [address], [address] [place] [address]. us David Brewer MD LAB PATHOLOGY ORDERABLES Fi nal Result * ERCP (09/06/2024 1:03 PM CDT) Anatomical Region Laterality Modality Other Narrative Procedure Note David Brewer MD - 09/06/2024 1:03 PM CDT ENDOSCOPY LAB Patient Name: Susannah Goncalves Procedure Date: 09/06/2024 1:03 PM Admit Type: Outpatient Room: [facility] Date of : 1950 Instrument Name: [...] The patienttolerated the procedure well. Findings: The drum barker operator film was normal. The esophagus was [...] following this procedure please call my officeat [phone] ([phone]) to speak to my nurses. After hours and evenings please call [phone] speak to the GI fellow extrusion former. Please tell themthat Dr. Brewer did your procedure and that your were instructed to have the fellow call me or thephysician covering for me to discuss the management of your condition. If you have an urgent problem, please goto the nearest emergency room and have the ER doctorcall my office during the day or [facility] transfer ([phone]) center after hours and weekends to arrange [...] 09/06/2024 1:02 PM Admit Type: Outpatient Room: [facility] Date of : 1950 Instrument Name: [...] following this procedure please call my officeat [phone] ([phone]) to speak to my nurses. After hours and evenings please call [phone] speak to the GI fellow extrusion former. Please tell diamondat Dr. Brewer did your procedure and that your were instructed to have the fellow call me or thephysician covering for me to discuss the management of your condition. If you have an urgent problem, please goto the nearest emergency room and have the ER doctorcall my office during the day or [facility] transfer ([phone]) center after hours and weekends to arrange admission or transfer to our facility. - Call my nurse Arlyn Segovia RN in the GI office at [phone] for your final results in 7 days. [...] Bilirubin, direct 4.2(H) 0.1 - 0.3 mg/dL [facility] Protein, pl 5.5(L) 6.5 - 8.5 g/dL [facility] Albumin 3.0(L) 3.5 - 5.0 g/dL [facility] Alk phos 1,250(H) 40 - 130 Units/L [facility] ALT 143(H) 7 - 45 Units/L [facility] AST 190(H) 10 - 45 Units/L [facility] Blood 09/06/2024 10:5 0 AM CDT 09/06/2024 10:50 AM CDT Narrative [facility] - 09/06/2024 11:32 AM CDT STAT pre procedure lab same day us Geoffrey Shaver MD LAB BLOOD ORDERABLES Final Result [facility] [address] Department [place] [address] * CT Body Outside Consult [...] images may or may not represent the platinum source data set and thus may contain changes that may lower the accuracy of this second-opinion interpretation. Electronically signed by: Mickey Martinez M.D. Narrative 09/05/2024 2:33 PM CDT EXAMINATION: RADIOLOGY CONSULTATION ON OUTSIDE IMAGING STUDY STUDY INITIALLY PERFORMED: 08/28/2024 at [facility]. TYPE OF STUDY: Multiple CT images of [...] IMAGING STUDY STUDY INITIALLY PERFORMED: 08/28/2024 at [facility]. TYPE OF STUDY: Multiple CT images of [...] images may or may not represent the platinum source data set and thus may contain changes that may lower the accuracy of this second-opinion interpretation. Electronically signed by: Mickey Martinez M.D. David Brewer MD IM CT PROCEDURES Final Res ult from Last 3 Months Insurance [facility] MEDICARE [facility] Address: [address] [place] [phone] [facility] Address: [address] [address] [facility] Address: [address] [place] [phone] Advance Directives For more information, please contact: [phone] * Full Code (Latest Code Status on [...] 2:00 AM 11/08/2022 7:29 PM Care Teams Sports Medicine Trainer Relationship Specialty Start Date End Date Leonidas Rubio MD [address] [place] [address] PCP - General Family Medicine 09/05/24 Arianna Persaud PA [address] [place] [address] Physician Production Tester 08/29/24 David Brewer MD [address] [place] [address] Referring Physician Gastroenterology 09/23/24 Haven Cox MD [address] [place] [address] Consulting Physician Medical Oncology 09/23/24 Daisy Mercado MD [address] [facility] [address] [place] [address] Consulting Physician General Surgery 09/23/24
--- OUTSIDE RECORDS SUMMARY | 2024-10-20 00:32 | XMS_ITS | Encounter Summary ---
Author Organization [facility] [address] [place] [address] Care Team Providers Care Document Preparation Specialist Name Role Phone Linette Yepez MD Primary Care Provider [phone] Reason for Visit * Reason Onset Date Comments MEDICAL MANAGEMENT 04/13/2020 JENNIFER W/ RAVI Nettles/ [facility]OSPITAL[facility] Encounter Details Date Type Department Care Team ([facility] st Contact Info) Description 04/13/2020 Telephone [facility] Admitting [address] [place] [address] [place] MD [id number] [place] [address] [place] [address] MEDICAL MANAGEMENT (JENNIFER Nettles/ RAVI Nettles/ HOSPITALIST [...] COVID-19? No / Unsure 04/13/2020 6:46 AM CLINICAL PSYCHIATRIST documented as of this encounter Plan of Treatment Not on file documented as of this encounter Visit Diagnoses Not on filedocumented in this encounter Care Teams Document Preparation Specialist Relationship Specialty Start Date End Date Linette Yepez MD PCP - General Family Practice 04/01/20 documented as of this encounter
--- OUTSIDE RECORDS SUMMARY | 2024-10-20 00:32 | XMS_ITS | Continuity of Care Document ---
Author Organization [facility] Address [address] [place] [address] Phone Care Team Providers Care Purchase Analyst Name Role Phone Maribel BROWN, Ramirez Unavailable [...] OFFICE/OUTPA TIENT VISIT NEW [facility], [address], [place], [address], tel:[phone] [facility] [place] CervicalgiaOther spondylosis with myelopathy, cervical regionAbnormal reflex Maribel Guzmán. [address], [place], [place], [id number] , [place]. tel: [phone] Referring Provider: Nidhi Smart [address], [place], [address]. tel:[phone] Family History Family Member Type Diagnosis Age At Onset No Information Payers Payer name Insurance type Covered constitution party ID Pedro chaney(s) AARP Medicare Complete HMO-POS [id number] Social History Type Description Quantity Date [...]
--- OUTSIDE RECORDS SUMMARY | 2024-10-20 00:33 | XMS_ITS | Encounter Summary ---
Author Organization [facility] Address [address] [place] [address] Phone Care Team Providers Care Senior Warehouse Clerk Name Role Phone Arianna Persaud Unavailable [phone]- [phone] Leonidas Rubio MD Primary Care Provider David Brewer MD Unavailable Haven Cox MD Unavailable [phone] Daisy Mercado MD Unavailable [phone] Encounter Details Date Type Department Care Team (Late st Contact Info) Description 10/19/2024 Telephone [facility] Oncology [facility] Floor [address] [place] [address] Social History Tobacco [...] any clubs o r organizations such as alevism groups, unions, fraternal or athletic groups, or [...] on file Legal Sex Female 6:30 PM UNCLAIMED PROPERTY MANAGER Gender Identity Not on file Sexual [...] on filedocumented in this encounter Care Teams Senior Warehouse Clerk Relationship Specialty Start Date End Date Leonidas Rubio MD [address] [address] PCP - General Family Medicine 09/05/24 Arianna Persaud PA [address] [place] [address] Physician Data Reduction Technician 08/29/24 David Brewer MD [address] [place] [address] Referring Physician Gastroenterology 09/23/24 Haven Cox MD [address] [place] [address] Consulting Physician Medical Oncology 09/23/24 Daisy Mercado MD [address] [facility] [address] [place] [address] Consulting Physician General Surgery 09/23/24 documented as of this encounter
--- OUTSIDE RECORDS SUMMARY | 2024-10-20 00:33 | XMS_ITS ---
Author Organization [facility] Address [address] [place] [address] Care Team Providers Care Rough Rice Tender Name Role Phone Arianna Persaud Unavailable [phone] Leonidas Rubio MD Primary Care Provider David Brewer MD Unavailable Haven Cox MD Unavailable [phone] Daisy Mercado MD Unavailable [phone] Active Problems Problem Noted Date Diagnosed Date Dehydration 10/16/2024 Pancreatic adenocarcinoma 10/07/2024 Pancreatic mass 09/04/2024 Elevated liver function tests 09/04/2024 Intractable pain 02/25/2023 Dizziness 11/07/2022 Mixed anxiety and depressive disorder 06/21/2022 Assessment & Plan (06/21/2022 7:25 PM SENIOR CONTROLS ENGINEER): Worsening after of her mother in 04/2022. Feels more anxiety than depression. Admits panic attacks. Reluctant to start daily medication, don't want to feel trapped into taking medicine. Will Rx BuSpar as directed. Encouraged relaxation techniques such as deep breathing and guided imagery. Keep follow as scheduled, sooner if needed. Diarrhea 06/20/2022 Assessment & Plan (06/21/2022 7:16 PM SENIOR CONTROLS ENGINEER): Ongoing for approximately 1 week after finishing a course of cefdinir for UTI. No more urinary symptoms or abdominal pain. No acute findings on exam. Will order CDiff test. Advised on Bowel rest: push fluids, bland high fiber diet. Continue immodium if needed. Vulvovaginitis 06/20/2022 Assessment & Plan (06/21/2022 7:17 PM SENIOR CONTROLS ENGINEER): S/p cefdinir course for UTI. Denies discharge or genital lesions. exam deferred per pt request. Rxd Diflucan as directed. Use mild non-fragrant soaps/lotions. Recurrent UTI 06/08/2022 Assessment & Plan (06/08/2022 2:35 PM SENIOR CONTROLS ENGINEER): Currently on Abx for treatment. Patient [...] 12/23/2021 Assessment & Plan (06/21/2022 7:12 PM SENIOR CONTROLS ENGINEER): BP stable in office today on current therapy. Continue current regimen and low salt diet. Stay hydrated. Assessment & Plan (06/08/2022 2:36 PM SENIOR CONTROLS ENGINEER): Chronic and mildly elevated. Goal < [...] 12/23/2021 Assessment & Plan (06/08/2022 2:35 PM SENIOR CONTROLS ENGINEER): Chronic and stable. 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 with business support manager Assessment & Plan (12/23/2021 12:10 PM [...]
--- OUTSIDE RECORDS SUMMARY | 2024-10-20 00:33 | XMS_ITS | Clinical Summary ---
Author Organization [facility] Address [address] [facility] [place] [address] Care Team Providers Care Concrete Products Machine Operator Name Role Phone Aury Joseph RN Unavailable [phone] Dar Stinson MD Unavailable [phone] Linette Yepez MD Primary Care Provider + Source Comments [facility],non-owned Affiliates and Associated Physician Practices is amultiple site organization consisting of ambulatory clinics and hospital sitesin [place], [place], [place] and [place]. This disclosure is being madepursuant to the Care Everywhere program and may not contain all information available regarding this patient. 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 [employer] Not on file Not on file Not on file Last Filed Vital Signs Vital Sign Reading Time Taken Comments Blood Pressure 106/74 06/16/2021 10:41 AM VOTING MACHINE REPAIRER Pulse 60 06/16/2021 10:41 AM VOTING MACHINE REPAIRER Temperature 36.2 C (97.2 F) 06/16/2021 10:41 AM VOTING MACHINE REPAIRER Respiratory Rate 20 06/16/2021 10:41 AM VOTING MACHINE REPAIRER Oxygen Saturation 97% 06/16/2021 10:41 AM VOTING MACHINE REPAIRER Inhaled Oxygen Concentration - - Weight 72.6 kg (160 lb) 06/16/2021 10:41 AM VOTING MACHINE REPAIRER Height 160 cm (5' 3) 06/16/2021 10:41 AM VOTING MACHINE REPAIRER Body Mass Index 28.34 06/16/2021 10:41 AM VOTING MACHINE REPAIRER Plan of Treatment Health Maintenance Due Date [...] < 140/90 Blood Pressure 106/74(2021 10:41 AM VOTING MACHINE REPAIRER) Nae Montanez MA Medical Devices Implanted Type Area Certification Technician Device Identifier Shelf Expiration Date Model / Serial / Lot Shell Coat 3hole 54mm Implanted:Qty: 1 on 11/21/2013 by Francis Cortes MD at [facility] Right: Hip [employer] 08/16/2023 [id number] / / [id number] Linr Acetab Refl Xlpe 0deg 36mm X 54mm Implanted:Qty: 1 on 11/21/2013 by Francis Cortes MD at [facility] Right: Hip [employer] 10/15/2023 [id number] / / [id number] Spherical Head Screw 6.5mm Cancellous Implanted:Qty: 1 on 11/21/2013 by Francis Cortes MD at [facility] Right: Hip [employer] 05/17/2023 [id number] / / [id number] Standard Offset Fixed Neck Stikitite Coated Stem Feoral Coponent Implanted:Qty: 1 on 11/21/2013 by Francis Cortes MD at [facility] Right: Hip [employer] 06/14/2023 [id number] / / [id number] 03/30 Taper Femoral Head Implanted:Qty: 1 on 11/21/2013 by Francis Cortes MD at [facility] Right: Hip [employer] 12/14/2022 [id number] / / [id number] Bill Only H1 Uncem Metal Or Ceramic Implanted:Qty: 1 on 11/21/2013 by Francis Cortes MD at [facility] [employer] H1 BILL ONLY [...] PM CDT Narrative Resulting Agency Comment [facility] Lab [address] [facility] [id number] Feliciano Oliver MD LAB - CHEMISTRY ORDERABLES Fin al Result [facility] ACCOUNT BILL [address] [place] [address] * MAMMO SCREENING DIGITAL IMAGE BILAT (09/09/2014 5:05 PM CDT) Anatomical Region Laterality Modality Breast Bilateral Mammography 09/10/2014 5:08 PM CDT Impressions 09/10/2014 5:09 PM CDT No mammographic evidence of malignancy in either breast. ASSESSMENT: BIRADS Category 1: Negative. RECOMMENDATION: Bilateral screening mammogram in one year. Thank you for allowing us to participate in the care of your patient. [facility] utilizes [employer] as a reminder system to notify patients of their next recommended mammogram. Narrative 09/10/2014 5:09 PM CDT EXAMINATION: Digital screening mammogram on 09/09/2014. Computer assisted detection was utilized. PRIOR: Mammogram from [facility] in 09/28/2006. FINDINGS: Breast parenchymal density: [...] offers HCV Ab w/Reflex to Verification test #[id number]. Blood specimen (specimen) BLOOD SPECIMEN / Unknown 08/09/2013 8:53 AM CDT 08/09/2013 12:57 PM CDT Narrative Resulting Agency Comment [facility] [address] [facility] [id number] Feliciano Oliver MD LAB - CHEMISTRY ORDERABLES Fin al Result [facility] ACCOUNT BILL [address] [place] [address] from Last 3 Months or Most Recently Relevant to Health Maintenance Insurance MANAGED MEDICARE ADV MANAGED MEDICARE ADV Advance Directives * Full Code (Latest Code Status on File) Date Activated Date Inactivated Comments 11/21/2013 12:38 PM 11/24/2013 6:31 PM * Full Code Date Activated Date Inactivated Comments 02/18/2009 10:26 AM 02/22/2009 1:32 AM Care Teams Concrete Products Machine Operator Relationship Specialty Start Date End Date Linette Yepez MD [address] [place] [address] PCP - General Family Medicine 01/09/20 Aury Joseph, RN Assemblyman Or Woman 11/22/13 [place] [address] [address] Orthopedic Surgery 12/27/13
--- OUTSIDE RECORDS SUMMARY | 2024-10-20 00:33 | XMS_ITS | Patient Health Record ---
Author Organization [facility] Address [address] [place] [address] Care Team Providers Care Stitchdown Toe Former Name Role Phone Lucho BROWN, Linette Primary Care Provider Francie Nidhi Alejandre Unavailable [phone] Maegan POPE, Sussy Unavailable [phone] Lissette Colby Unavailable [phone] Johnathon Dick Unavailable [phone] Allergies No Known Allergies Results Component Value Reference Range Notes Miaoyushang Profil e Reviewed date:03/04/2024 07:46:44 AM Interpretation: Performing Lab:[facility] (CLIA#: [id number]), [address] [place] [address], Director - Adelina Jensen Notes/Report: Analyzed at [facility] (CLIA#: [id number]) - [address] [place] [address] - Registered Nurse Maternal Child: Adelina Ontiveros These tests were developed and their performance characteristics determined by [facility]. They have not been cleared or approved by the [place] Food and Drug Administration. Certifying Family Dinner Service Specialist: Nicolas Carlson (Remote [id number]) Cital+Escital Ur CMP >75729 >=50 ng/mL COMPLIA NT: Test result is [...] form, was detected. Ethyl Sulfate Ur CMP 09533 >=200 ng/mL PRESENT : Test result is consistent with alcohol exposure within 72 hours of specimen collection. For additional information, please consult the Clinical Team at or email [email or web address] Bio[employer] EXPECTED Test result is consistent with [...] >=200 ng/mL POSITIVE Ethyl sulfate Ur Cfm-mCnc 80547 >=200 ng/mL PO SITIVE Busprione Ur Ql Cfm <25 >=25 ng/mL NONE DET ECTED Tizanidine Ur Ql Cfm >=25 >=25 ng/mL POSITIV E Tizanidine Ur Cfm-mCnc 157 >=25 ng/mL POSIT NILSA Dehydrotizanidine Ur Cfm-mCnc 17 >=5 ng/mL POSITIVE SSRI Profile Ur Ql Cfm >=50 >=50 ng/mL POSIT NILSA Norcitalopram Ur-mCnc >52530 >=50 ng/mL POSITI VE Synthetic Stimulants Ur Ql Cfm <1 >=1 ng/mL NONE DETECTED IT PROFESSIONAL Not Otherwise Specified Ur Ql Cfm <1 >=1 ng/mL NONE DETECTED Synthetic Cannabinoids Ur Ql Cfm <1 >=1 ng/m L NONE DETECTED Hallucinogens/Dissociatives Ur Ql Cfm <1 >=1 ng/mL NONE DETECTED Wellness Rn Benzodiazepines Ur Ql Cfm <1 >=1 ng/mL NONE DETECTED Wellness Rn Opioids Ur Ql Cfm <1 >=1 ng/mL N ONE DETECTED THC Ur Ql Scn <20 >=20 ng/mL NONE DETECTED [employer] Profil e (Not yet reviewed by provider) Interpretation: Performing Lab:[facility] (CLIA#: [id number]), [address] [place] [address], Director - Adelina Jensen Notes/Report: Analyzed at [facility] (CLIA#: [id number]) - [address] [place] [address] - Registered Nurse Maternal Child: Adelina Ontiveros Certifying Family Dinner Service Specialist: Shalom Nicholson (Remote [phone]) These tests were developed and their performance characteristics determined by [facility]. They have not been cleared or approved by the [place] Food and Drug Administration. Cital+Escital Ur CMP >48802 >=50 ng/mL COMPLIA NT: Test result is [...] expected with prescribed drug. Tramadol Ur CMP >86258 >=100 ng/mL COMPLIANT: T est result is consistent and expected with prescribed drug. Pregabalin Ur CMP <5 >=5 mcg/mL NON-COMPLI ANT: Test result indicates patient may not be taking drug prescribed. Ethyl Sulfate Ur CMP 23317 >=200 ng/mL PRESENT : Test result is consistent with alcohol exposure within 72 hours of specimen collection. For additional information, please consult the Clinical Team at or email [email or web address] [employer] EXPECTED Test result is consistent with [...] >=100 ng/mL POSI TIVE Tramadol Ur Cfm-mCnc >14245 >=100 ng/mL POSITIV E N-Desmethyl Tram Ur Cfm-mCnc >10548 >=100 ng/mL POSITIVE Creat Ur-mCnc 275.9 20 - 370 mg/dL NORMAL Creatinine and pH are performed for specimen validity and not diagnostic purposes. pH Ur 6.04 4.5 - 9.0 NORMAL Creatinine and pH are performed for specimen validity and not diagnostic purposes. Alcohol Metabolites Ur Ql Cfm >=200 >=200 ng/mL POSITIVE Ethyl sulfate Ur Cfm-mCnc 95448 >=200 ng/mL PO SITIVE Busprione Ur Ql Cfm <25 >=25 ng/mL NONE DET ECTED SSRI Profile Ur Ql Cfm >=50 >=50 ng/mL POSIT NILSA Citalopram Ur Cfm-mCnc >64585 >=50 ng/mL POSIT NILSA Norcitalopram Ur-mCnc >02238 >=50 ng/mL POSITI VE SN Reuptake Inhibitors Ur Ql <5 >=5 ng/mL NONE DETECTED Synthetic Stimulants Ur Ql Cfm <1 >=1 ng/mL NONE DETECTED IT PROFESSIONAL Not Otherwise Specified Ur Ql Cfm <1 >=1 ng/mL NONE DETECTED Synthetic Cannabinoids Ur Ql Cfm <1 >=1 ng/m L NONE DETECTED Hallucinogens/Dissociatives Ur Ql Cfm <1 >=1 ng/mL NONE DETECTED Wellness Rn Benzodiazepines Ur Ql Cfm <1 >=1 ng/mL NONE DETECTED Wellness Rn Opioids Ur Ql Cfm <1 >=1 ng/mL N ONE DETECTED THC Ur Ql Scn <20 >=20 ng/mL NONE DETECTED [employer] Profil e (Not yet reviewed by provider) Interpretation: Performing Lab:[facility] (CLIA#: [id number]), [address] [place] [address], Director - Adelina Jnesen Notes/Report: Analyzed at [facility] (CLIA#: [id number]) - [address] [place] [address] - Registered Nurse Maternal Child: Adelina Ontiveros Certifying Family Dinner Service Specialist: Dustin Quinn (Remote [id number]) These tests were developed and their performance characteristics determined by [facility]. They have not been cleared or approved by the [place] Food and Drug Administration. Buprenorphine Ur CMP 46 >=1 ng/mL COMPLIA [...] expected with prescribed drug. Tramadol Ur CMP >41317 >=100 ng/mL COMPLIANT: T est result is [...] >=100 ng/mL POSITIVE N-Desmethyl Tram Ur Cfm-mCnc >81335 >=100 ng/mL POSITIVE Creat Ur-mCnc 19.5 20 [...] 5107 >=50 ng/mL POSIT NILSA Norcitalopram Ur-mCnc 3 >=50 ng/mL POSITI VE Synthetic Stimulants Ur Ql Cfm <1 >=1 ng/mL NONE DETECTED IT PROFESSIONAL Not Otherwise Specified Ur Ql Cfm <1 >=1 ng/mL NONE DETECTED Synthetic Cannabinoids Ur Ql Cfm <1 >=1 ng/m L NONE DETECTED Hallucinogens/Dissociatives Ur Ql Cfm <1 >=1 ng/mL NONE DETECTED Wellness Rn Benzodiazepines Ur Ql Cfm <1 >=1 ng/mL NONE DETECTED Wellness Rn Opioids Ur Ql Cfm <1 >=1 ng/mL [...] W/U Status Risk Notes Problem Cervical spondylosis (085792426) Cervical spondylosis (M47.812) Active confirmed Problem Hypercholesterolemia (53135935) Hypercholesterolemia (E78.00) Active confirmed Problem Long-term current us e of drug therapy (681529411) care home use of drug (Z79.899) Active confirmed Problem Neck pain (44517695) Cervical sp ine pain (M54.2) Active confirmed Problem Hypertension (44248360) Hypertension (I10) 2009 Active confirmed Problem Low back pain (078685335) Low back pain (M54.50) Active confirmed Problem Atrial fibrillation (96181653) Atrial fibrillation (I48.91) Active confirmed Problem Long-term current us e of anticoagulant (356498217) Anticoagulated (Z79.01) Active confirmed Vital Signs Heart Rate 61 /min 08/20/2024 Height-cm 160.02 cm 09/26/2024 Blood pressure diastolic 89 mm Hg 08/20/2024 Weight-kg 63.05 kg 09/26/2024 Height 5ft 3in in 09/26/2024 Blood pressure systolic 142 mm Hg 08/20/2024 Weight 139 lbs 09/26/2024 BMI 24.62 kg/m2 09/26/2024 Encounters Encounter Location Date Provider Diagnosis [facility] [address] [place] [address] [address] [place] [address] 11/21/2023 Lissette Colby Cervical spine pain M54.2 ; DDD (degenerative disc disease), lumbar M51.36 and tank terminal gauger use of drug Z79.899 Telehealth [facility] [address] [place] [address] [address] [place] [address] 12/26/2023 Lissette Colby Cervical spine pain M54.2 ; DDD (degenerative disc disease), lumbar M51.36 ; Cervical spondylosis M47.812 and care home use of drug Z79.899 [facility] [address] [facility] [address] [place] [address] 01/11/2024 Lissette Colby Cervical spine pain M54.2 ; Cervical spondylosis M47.812 ; DDD (degenerative disc disease), lumbar M51.36 ; Low back pain M54.50 ; Left knee pain M25.562 and care home use of drug Z79.899 [facility] [address] [facility] [address] [place] [address] 02/26/2024 Lissette Colby Cervical spondylosis M47.812 ; Cervical spine pain M54.2 ; Low back pain M54.50 ; On fdc drug therapy Z79.899 and Screening for substance abuse Z13.89 Telehealth [facility] [address] [place] [address] [address] [place] [address] 03/25/2024 Sussy Issa Cervical spondylosis M47.812 ; Cervical spine pain M54.2 ; Low back pain M54.50 and tank terminal gauger use of drug Z79.899 [facility] [address] [facility] [address] [place] [address] 04/25/2024 Lissette Colby Cervical spondylosis M47.812 ; Cervical spine pain M54.2 ; Low back pain M54.50 and tank terminal gauger use of drug Z79.899 Telehealth [facility] [address] [facility] [address] [place] [address] 05/09/2024 Lissette Colby Cervical spine pain M54.2 ; Cervical spondylosis M47.812 and On exterminator helper termite drug therapy Z79.899 [facility] [address] [facility] [address] [place] [address] 06/18/2024 Lissette Colby Cervical spondylosis M47.812 ; Cervical spine pain M54.2 and care home use of drug Z79.899 Telehealth [facility] [address] [place] [address] [address] [place] [address] 07/16/2024 Lissette Colby Cervical spine pain M54.2 ; Low back pain M54.50 ; Cervical spondylosis M47.812 and care home use of drug Z79.899 [facility] [address] [place] [address] 08/20/2024 Lissette Colby Cervical spondylosis M47.812 ; Cervical spine pain M54.2 ; Low back pain M54.50 and tank terminal gauger use of drug Z79.899 Telehealth [facility] [address] [place] [address] 09/12/2024 Lissette Colby Cervical spine pain M54.2 ; Cervical spondylosis M47.812 ; Hypertension I10 ; Pancreatic neoplasm D49.0 and tank terminal gauger use of drug Z79.899 [facility] [address] [place] [address] 09/26/2024 Johnathon Mayelin Pancreatic carcinoma C25.9 ; Cervical spondylosis M47.812 ; Cervical spine pain M54.2 ; Low back pain M54.50 ; tank terminal gauger use of drug Z79.899 ; Hypertension I10 ; care home use of opioid Z79.891 ; Hypercholesterolemia E78.00 ; Anticoagulated Z79.01 and Atrial fibrillation I48.91 [facility] [address] [facility] [address] [place] [address] 11/21/2023 Nidhi Dick [facility] [address] [place] [address] 11/27/2023 Nidhi Dick [facility] [address] [place] [address] 12/26/2023 Nidhi Dick [facility] [address] [place] [address] 01/11/2024 Nidhi Dick [facility] [address] [place] [address] 01/25/2024 Johnathon Dick [facility] [address] [place] [address] 02/26/2024 Nidhi Dick [facility] [address] [place] [address] 03/25/2024 Nidhi Mayelin [facility] [address] [place] [address] 04/25/2024 Nidhi Mayelin [facility] [address] [place] [address] 05/09/2024 Nidhi Mayelin [facility] [address] [place] [address] 06/18/2024 Nidhi Mayelin [facility] [address] [place] [address] 07/16/2024 Nidhi Mayelin [facility] [address] [place] [address] 08/20/2024 Nidhi Mayelin [facility] [address] [place] [address] 09/12/2024 Johnathon Mayelin [facility] [address] [place] [address] 09/19/2024 Nidhi Mayelin [facility] [address] [place] [address] 09/26/2024 Johnathon Mayelin [facility] [address] [place] [address] 09/27/2024 Johnathon Mayelin [facility] [address] [place] [address] 10/03/2024 Johnathon Mayelin Assessments Encounter Date Diagnosis [...] Cervical spine pain (ICD-10 - M54.2) 06/18/2024 care home use of kike g (ICD-10 - Z79.899) 05/09/2024 On exterminator helper termite drug therapy (ICD-10 - Z79.899) 04/25/2024 Cervical spine pain (ICD-10 - M54.2) 03/25/2024 Low back pain (ICD-1 0 - M54.50) 02/26/2024 Low back pain (ICD-1 0 - M54.50) 01/11/2024 DDD (degenerative di sc disease), lumbar (ICD-10 - M51.36) 12/26/2023 Cervical spondylosis (ICD-10 - M47.812) 11/21/2023 care home use of kike g (ICD-10 - Z79.899) 02/26/2024 On fdc drug therapy (ICD-10 - Z79.899) 12/26/2023 care home use of kike g (ICD-10 - Z79.899) 03/25/2024 tank terminal gauger use of kike g (ICD-10 - Z79.899) 04/25/2024 Low back pain (ICD-1 0 - M54.50) 08/20/2024 Low back pain (ICD-1 0 - M54.50) 07/16/2024 care home use of kike g (ICD-10 - Z79.899) 09/12/2024 Pancreatic neoplasm (ICD-10 - D49.0) 01/11/2024 Low back pain (ICD-1 0 - M54.50) 09/26/2024 tank terminal gauger use of kike g (ICD-10 - Z79.899) 09/26/2024 Hypertension (ICD-10 - I10) 09/12/2024 tank terminal gauger use of kike g (ICD-10 - Z79.899) 04/25/2024 care home use of kike g (ICD-10 - Z79.899) 08/20/2024 tank terminal gauger use of kike g (ICD-10 - Z79.899) 01/11/2024 Left knee pain (ICD- 10 - M25.562) 02/26/2024 Screening for substa nce abuse (ICD-10 - Z13.89) 01/11/2024 care home use of kike g (ICD-10 - Z79.899) 09/26/2024 care home use of opi oid (ICD-10 - Z79.891) [...] 06/18/2024 Synthetic Stimulants 02/26/2024 Synthetic Stimulants 09/26/2024 Wellness Rn Benzodiazepines 06/18/2024 Wellness Rn Benzodiazepines 09/26/2024 Wellness Rn Benzodiazepines 02/26/2024 Synthetic Cannabinoids 02/26/2024 Synthetic Cannabinoids 09/26/2024 Synthetic Cannabinoids 06/18/2024 Wellness Rn Opioids 09/26/2024 Wellness Rn Opioids 02/26/2024 Wellness Rn Opioids 06/18/2024 Hallucinogens/Dissociatives 02/26/2024 Hallucinogens/Dissociatives 06/18/2024 Hallucinogens/Dissociatives 09/26/2024 IT PROFESSIONAL Other 09/26/2024 IT PROFESSIONAL Other 06/18/2024 IT PROFESSIONAL Other 02/26/2024 Marijuana - Urine 02/26/2024 Marijuana [...] Insured Coverage Start Date Coverage End Date [facility] [address] [address] [place] [address] [id number] Susannah Camargo Self - patient is the insured Medical (General) History Medical History History ICD Code hyperlipidemia hypertension Atrial fibrillation Surgical History Surgery Date(Month/Year) B TKR B THR oophorectomy gastric sleeve 03/2020 Hospitalization History Reason Date(Month/Year) no hospitalizations since prior visit
--- NOTE | 2024-10-20 01:31 | ED.EXTPRO ---
HPI - Extremity Problem General Chief complaint: Shortness of Breath/Dyspnea Stated complaint: yrn leg edema, sob Time Seen by Provider: 10/20/24 00:18 History of Present Illness HPI Narrative: 73-year-old female with history of recently diagnosed pancreatic head cancer currently undergoing chemotherapy at [facility] from [facility]. Patient presents to the emergency room with complaints of bilateral lower extremity swelling, weeping, low-grade fever in concern for cellulitis. She called the on-call oncologist at her facility and she was told to go the hospital for evaluation possibly antibiotics for her leg cellulitis. Patient has been dealing with low albumin but never been on any albumin replacement therapy. She was talking to her mysql dba and her oncologist about potential diuretic therapy of her leg swelling that has a got worse over last few days. They deferred at this time and wait and see how the cancer react chemotherapy. Patient did endorse some shortness of breath and was given a breathing treatment but she actually just felt better when she lies down flat. No chest pain, nausea, vomiting, abdominal pain, back pain. She was doing well after the initiation of chemotherapy. She has outpatient follow-up appointments with her regular doctors and oncologist. Patient is accompanied by both of her daughters for collateral information. She was otherwise doing well and mostly concerned about the leg swelling and redness. Related Data Home Medications ?Medication ?Instructions ?Recorded ?Confirmed ?Last Taken ?Type hydralazine 25 mg tablet 25 mg PO TID PRN 03/20/23 10/02/24 Unknown History nifedipine 20 mg capsule 20 mg PO Q6H 12/06/23 10/02/24 Unknown History propafenone 225 mg tablet 225 mg PO Q12H 09/05/24 10/02/24 Unknown History [id number] 1 cap PO BID 10/02/24 10/02/24 Unknown History 40,000-126,000-168,000 unit capsule, delay rel (Zenpep) morphine 15 mg immediate release 15 mg PO Q8H PRN 10/02/24 10/02/24 Unknown History tablet rivaroxaban 20 mg tablet (Xarelto) 20 mg PO DAILY 10/02/24 10/02/24 Unknown History Allergies Allergy/AdvReac Type Severity Reaction Status Date / Time No Known Allergies Allergy Verified 10/02/24 08:35 Review of Systems Review of Systems: As reviewed above in HPI [facility] Past Medical History Medical History Pancreatic adenocarcinoma Ulcerative colitis Pancreatic mass Lactose intolerance Chronic anemia Postmenopausal Major depressive disorder, recurrent, moderate Weight gain Primary generalized (osteo)arthritis Polyosteoarthritis, unspecified Panic attacks NOMI on CPAP Morbid (severe) obesity due to excess calories Mixed hyperlipidemia Chronic fatigue Essential (primary) hypertension Chronic pain disorder Chronic atrial fibrillation Arthritis, shoulder region Arthralgia Allergic contact dermatitis due to plants, except food Breast cancer screening Cough Dizziness Chapped lips Screening for breast cancer Generalized anxiety disorder Major depressive disorder, recurrent, moderate BMI 40.0-44.9, adult Obesity NOMI (obstructive sleep apnea) Benign essential HTN Arthritis Surgical History Surgical History History of sleeve gastrectomy History of radiofrequency ablation procedure for cardiac arrhythmia Hx of total knee arthroplasty R H/O total hip arthroplasty bilateral Family History Family History Father Family history of premature coronary heart disease Hypertension Social History Social History Social History: Smoking status: Never smoker Second hand tobacco smoke exposure: No Alcohol intake: former Substance use: never Substance use type: does not use Lack of Transportation: No Lack of Food: Never True Current Housing: I Have Housing Concerned About Future Housing: No Difficulty Paying Gas/Electric Bills: No Difficulty Paying for Meds: No Currently Unemployed: No Education: Decline to Answer Difficulty w/ Childcare or Family Care: No Living arrangements: alone Occupation/Education: retired Gender identity (if verbalized by the patient): Female Sexual Orientation (if Verbalized by the Patient): Straight or Heterosexual Exam Narrative: GENERAL: [Well-appearing, well-nourished, and in no acute distress.] HEAD: [Normocephalic, atraumatic.] EYES: [PERRLA and EOMI.] ENT: Nares clear, no rhinorrhea or epistaxis. Mucous membranes moist. NECK: Supple. CHEST: [Clear to auscultation. No respiratory distress.] HEART: [Regular rate and rhythm]. No murmur heard. [Normal peripheral pulses.] ABDOMEN: [Soft, nondistended], [nontender], [No rigidity or guarding] EXTREMITIES: Normal range of motion. 3+ pitting edema to the mid thighs bilaterally with signs of cellulitis with warmth and redness on the medial aspect of both legs and bilateral ankles. Blanching erythema with pitting edema. Full range of motion both extremities and ambulates without assistance. SKIN: Warm, dry, no rash. NEURO: [No focal deficits]. Alert and oriented [x3.] PSYCH: [Normal mood and affect.] Course Vital Signs Vital signs: Vital Signs Temperature 37.1 C 10/19/24 22:52 Pulse Rate 78 10/19/24 22:52 Respiratory Rate 20 10/19/24 22:52 Blood Pressure 82/48 L 10/19/24 22:52 Pulse Oximetry 98 10/19/24 22:52 Oxygen Delivery Room Air 10/19/24 22:52 Temperature 37.1 C 10/19/24 22:52 Pulse Rate 77 10/20/24 03:39 Respiratory Rate 16 10/20/24 03:39 Blood Pressure 120/80 10/20/24 03:39 Pulse Oximetry 100 10/20/24 03:39 Oxygen Delivery Room Air 10/19/24 23:13 MDM - Extremity (Nontraumatic) MDM Narrative Medical decision making narrative: 73-year-old female with history of recently diagnosed pancreatic head cancer currently undergoing chemotherapy at [facility] from [facility]. Patient presents to the emergency room with complaints of bilateral lower extremity swelling, weeping, low-grade fever in concern for cellulitis. She called the on-call oncologist at her facility and she was told to go the hospital for evaluation possibly antibiotics for her leg cellulitis. Patient has been dealing with low albumin but never been on any albumin replacement therapy. She was talking to her mysql dba and her oncologist about potential diuretic therapy of her leg swelling that has a got worse over last few days. They deferred at this time and wait and see how the cancer react chemotherapy. Patient did endorse some shortness of breath and was given a breathing treatment but she actually just felt better when she lies down flat. No chest pain, nausea, vomiting, abdominal pain, back pain. She was doing well after the initiation of chemotherapy. She has outpatient follow-up appointments with her regular doctors and oncologist. Patient is accompanied by both of her daughters for collateral information. She was otherwise doing well and mostly concerned about the leg swelling and redness. 3+ pitting edema to the mid thighs bilaterally with signs of cellulitis with warmth and redness on the medial aspect of both legs and bilateral ankles. Blanching erythema with pitting edema. Full range of motion both extremities and ambulates without assistance. Patient is not any acute distress and resting comfortably with normal oxygen saturation without any temperature tachypnea or tachycardia. Blood pressure 104/66. Was soft blood pressures previously that resolved without any intervention. Laboratory studies were drawn including CBC, CMP, EKG, chest x-ray, placed on teletypesetter monitor and pulse oximetry. Patient was given a L of fluids and her albumin came back severely low which is likely the cause of her 3rd spacing and fluid collections in her legs. Her potassium is also slightly low which was repleted. I spoke or pharmacist about a potential safe albumin replacement given her weight she was given 50 g of IV albumin and a fluid bolus. She was also started on doxycycline after discussion about options for her cellulitis on the legs. Patient does not want to be admitted and given her response to fluids and albumin I believe she can be safely discharged with outpatient follow-up with her oncologist and primary care provider on Monday for continued care and possibly repeat albumin infusions. Patient and family were very amenable to this plan and felt more comfortable with that plan rather than admission for treatment here. She was given 50 g of albumin and re-evaluated afterwards. Patient re-evaluated with good improvement in vital signs after fluids and albumin infusion. She felt well and comfortable with discharge home but was requesting refill of her albuterol inhaler as well as prescription sent to her pharmacy. She will be sent home with doxycycline for her lower extremities and encouraged to follow-up with her regular primary team and cancer team for continued recheck of her albumin and potential albumin infusions on outpatient basis. They will call Monday morning and return with any emergent concerns otherwise. Lab Data 10/19/24 23:31 10/19/24 23:31 Labs: Lab Results 10/19/24 Range/Units 23:31 WBC 5.2 (4.5-10.0) K/mm3 RBC 2.59 L (4.2-5.4) M/mm3 Hgb 7.6 L (12.0-15.0) g/dL Hct 23.7 L (37.0-47.0) % MCV 91.5 (80-100) fl MCH 29.3 (26-34) pg MCHC 32.1 (32-36) g/dl RDW 14.6 H (11.5-14.5) % Plt Count 156 (150-375) k/mm3 MPV 10.0 (7.4-10.4) fl Immature Gran % (Auto) 1.7 H (0-0.5) % Neut % (Auto) 85.5 H (45.5-73.1) % Lymph % (Auto) 10.5 L (18.3-44.2) % Parmer % (Auto) 1.7 L (2.6-8.5) % Eos % (Auto) 0.4 (0-4.4) % Baso % (Auto) 0.2 (0.2-1.2) % Lymph # (Auto) 0.55 L (0.9-3.2) K/mm3 Parmer # (Auto) 0.1 (0.1-0.6) K/mm3 Eos # (Auto) 0.0 (0-0.3) K/mm3 Baso # (Auto) 0.0 (0.0-0.1) K/mm3 Abs Immat Gran (auto) 0.09 H (0.00-0.031) K/mm3 Absolute Neuts (auto) 4.5 (1.3-6.7) K/mm3 Absolute Nucleated RBC 0.000 (0.0-0.012) K/mm3 Nucleated RBC % 0.0 (0.0-0.2) % Sodium 132 L (137-145) mmol/L Potassium 3.3 L (3.4-5.0) mmol/L Chloride 102 (98-107) mmol/L Carbon Dioxide 26 (22-30) mmol/L Anion Gap 4 (4-12) mmol/L BUN 18 H (7-17) mg/dL Creatinine 0.75 (0.7-1.0) mg/dL Estim Creat Clear Calc Not Reportable Estimated GFR > 60 (59 - ) Glucose 139 H (65-110) mg/dL Calcium 8.4 (8.4-10.2) mg/dL Total Bilirubin 0.5 (0.2-1.3) mg/dL AST 26 (14-36) U/L ALT 22 (6-35) U/L Alkaline Phosphatase 182 H (38-126) U/L Total Protein 5.3 L (6.3-8.2) g/dL Albumin 2.7 L (3.5-5.1) g/dL Discharge Plan Discharge Clinical Impression: Edema due to hypoalbuminemia, Acute hypokalemia, Pancreatic cancer, Bilateral cellulitis of lower leg Patient Disposition: Home Condition: Stable Instructions: Antibiotic Form, Albumin (By injection), Cellulitis (ED), Edema (ED) Additional Instructions: Your albumin was very low today at 2.7 which does explain a lot of the edema that your experiencing near legs. He do also having concomitant cellulitis of both her lower extremities which is common when you have severe edema that is acute onset and stretching the pores of the skin allowing bacteria to infiltrate. We will treat this with doxycycline twice daily to be taken until completion. We have given you 50 g of albumin through your IV as well as a small dose of potassium and fluids to help with volume expansion and protein improvement to help with the edema. Follow-up with your regular primary care provider and oncological team for additional albumin infusions as warranted and repeat laboratory studies to see how you are doing. If you start exhibiting worsening shortness of breath, worsening leg swelling, fevers not responsive to Tylenol, developing chest pain or chest pressure, loss of consciousness, intractable nausea vomiting or any other emergent concerns please return to the emergency department that time otherwise follow-up with your doctors. Patient Language: Armenian Prescriptions: New doxycycline hyclate 100 mg capsule 100 mg PO BID 7 Days Qty: 14 0RF albuterol sulfate 90 mcg/actuation HFA aerosol inhaler 2 puff inhalation QID PRN (Reason: shortness of breath or wheezing) Qty: 8.5 0RF simethicone 250 mg capsule 250 mg PO BID PRN (Reason: abdominal distention) Qty: 30 0RF No Action carvedilol [Coreg] 6.25 mg tablet 6.25 mg PO Q12H Qty: 60 0RF Rx Instructions: must administer with a meal/food hydralazine 25 mg tablet 25 mg PO TID PRN Patient Comments: for elevated BP nifedipine 20 mg capsule 20 mg PO Q6H Patient Comments: per cardio propafenone 225 mg tablet 225 mg PO Q12H Patient Comments: per cardio budesonide 3 mg capsule,delayed,extend.release 9 mg PO QAM Qty: 90 2RF morphine 15 mg tablet 15 mg PO Q8H PRN Zenpep 40,000-126,000- 168,000 unit capsule,delayed release(DR/EC) 1 cap PO BID Rx Instructions: administer with meals and/or snacks Xarelto 20 mg tablet 20 mg PO DAILY Rx Instructions: must administer with evening meal tizanidine 2 mg tablet 2 mg PO TID PRN (Reason: muscle spasticity) Qty: 90 2RF pregabalin [Lyrica] 50 mg capsule 50 mg PO TID Qty: 90 1RF hyoscyamine sulfate 0.125 mg tablet,disintegrating 0.125 mg PO QID Qty: 60 0RF lisinopril 10 mg tablet 10 mg PO DAILY Qty: 90 1RF buspirone 10 mg tablet See Rx Instructions .ROUTE .COMPLEX Qty: 180 0RF Dose Instruction: TAKE 1 TABLET BY MOUTH TWICE DAILY Rx Instructions: TAKE 1 TABLET BY MOUTH TWICE DAILY citalopram 40 mg tablet See Rx Instructions .ROUTE .COMPLEX Qty: 90 1RF Dose Instruction: TAKE 1 TABLET BY MOUTH EVERY DAY Rx Instructions: TAKE 1 TABLET BY MOUTH EVERY DAY hydroxyzine HCl 25 mg tablet See Rx Instructions .ROUTE .COMPLEX Qty: 90 0RF Dose Instruction: TAKE 1 TABLET BY MOUTH THREE TIMES DAILY NEEDED FOR NAUSEA OR VOMITING Rx Instructions: TAKE 1 TABLET BY MOUTH THREE TIMES DAILY NEEDED FOR NAUSEA OR VOMITING ondansetron 4 mg tablet,disintegrating See Rx Instructions .ROUTE .COMPLEX Qty: 20 0RF Dose Instruction: DISSOLVE 1 TABLET ON THE TONGUE EVERY 8 HOURS NEEDED FOR NAUSEA OR VOMITING Rx Instructions: DISSOLVE 1 TABLET ON THE TONGUE EVERY 8 HOURS NEEDED FOR NAUSEA OR VOMITING pantoprazole 40 mg tablet,delayed release (DR/EC) 40 mg PO QAM 42 Days Qty: 42 0RF Follow-up/Referrals: Leonidas Rubio MD [Primary Care Provider] - Time of Disposition: 03:48
[2024-10-20] MEDS: LACTATED RINGERS 1,000 ML 999 ML IV CONT (01:36)
[2024-10-20] MEDS: KCL 20 MEQ/SW 100 ML 100 ML 50 MEQ IVPB (01:36)
[2024-10-20] MEDS: ALBUMIN HUMAN 25% 25 GM/100 ML 100 ML IVPB ×2 (01:37→02:33)
[2024-10-20 01:47] VITALS: BP 95/60; PULSE 72; RESP 12; O2SAT 97
[2024-10-20] MEDS: DOXYCYCLINE HYCLATE 100 MG TABLET PO (02:00)
[2024-10-20] MEDS: SIMETHICONE 80 MG TAB.CHEW PO (02:00)
[2024-10-20 03:39] VITALS: BP 120/80; PULSE 77; RESP 16; O2SAT 100
== END 2024-10-20 04:30 | disposition home or self-care (01) ==
PROVIDERS: Emergency Provider Student in an Organized Health Care Education/Training Program; PCP Family Medicine
DX: L03.116 Cellulitis of left lower limb (principal); L03.115 Cellulitis of right lower limb; R60.0 Localized edema; E88.09 Other disorders of plasma-protein metabolism, not elsewhere classified; E87.6 Hypokalemia; C25.0 Malignant neoplasm of head of pancreas; I10 Essential (primary) hypertension; I48.20 Chronic atrial fibrillation, unspecified; E78.2 Mixed hyperlipidemia; D64.9 Anemia, unspecified; G47.33 Obstructive sleep apnea (adult) (pediatric); M19.019 Primary osteoarthritis, unspecified shoulder; F41.1 Generalized anxiety disorder; F33.9 Major depressive disorder, recurrent, unspecified; Z98.84 Bariatric surgery status; Z96.651 Presence of right artificial knee joint; Z96.643 Presence of artificial hip joint, bilateral; Z79.60 Long term (current) use of unspecified immunomodulators and immunosuppressants; R94.31 Abnormal electrocardiogram [ECG] [EKG]
CPT/HCPCS: 36415; 71045; 80053; 85025; 93005; 96365; 96366; 96368; 99284; A9270; J3480; J7120; P9047

== ENCOUNTER 2024-11-14 04:07 | Emergency (ER) | payer MEDICARE, SELFPAY ==
--- NOTE | ~2024-11-14 | CT_ITS ---
History: Fall PROCEDURE: CT head without contrast. COMPARISON: None TECHNIQUE: Axial imaging of the head performed from the skull base to the vertex without IV contrast. Sagittal a nd coronal reformations obtained. DLP: 681 mGy-cm FINDINGS: The ventricles are enlarged. The dilatation of the ventricles is proportional to the degree of sulcal prominence, not uncommon in the senescent brain. Decreased attenuation is identified within the periventricular white matter, likely secondary to micr ovascular ischemic disease, in a patient of this age. There is no mass, mass effect or midline shift. There is no abnormal extra-axial fluid collection or intracranial hemorrhage. Visualized paranasal sinuses are clear. The right mastoid air cells are opacified. The left mastoid air cells are clear. No acute displaced fractures within the overlying cranium. Impression: No acute intracranial hemorrhage or suspicious mass effect. Inflammatory disease within the right mastoid air cells, as detailed above. Reviewed, dictated and finalized at location A. Impression: No acute intracranial hemorrhage or suspicious mass effect. Inflammatory disease within the right mastoid air cells, as detailed above.
--- NOTE | ~2024-11-14 | CT_ITS ---
History: Fall PROCEDURE: CT cervical spine without intravenous contrast. COMPARISON: None 12/02/2004 TECHNIQUE: Multiple contiguous axial images of the cervical spine were performed without the administration of i ntravenous contrast. DLP: 128 mGy-cm FINDINGS: Severe degenerative disease is identified demonstrating progression since the 2008 examination. Asymmetry of the pillars of the C1 vertebral body is redemonstrated. Anterolisthesis of C3 onto C4 is identified, largely unchanged from 2008 examination. Anterolisthesis of C4 onto C5 is also noted, also unchanged. Significant disc space narrowing is present at the level of C6/C7, with end plate changes and subchon dral cyst formation. No acute fracture. The bilateral lung apices are unremarkable. No soft tissue abnormality is appreciated The airway is patent. Impression: Significant degenerative disease demonstrating progression from 2008 examination, without acute fract ure. Reviewed, dictated and finalized at location A. Impression: Significant degenerative disease demonstrating progression from 2008 examinatio n, without acute fracture.
--- OUTSIDE RECORDS SUMMARY | 2024-11-14 04:10 | XMS_ITS | Encounter Summary ---
Author Organization [facility] Healthcare Address [address] [place] [address] Care Team Providers Care Microbiology Technician Name Role Phone Arianna Persaud Unavailable [phone]- [phone] Leonidas Rubio MD Primary Care Provider David Brewer MD Unavailable [phone] Haven Cox MD Unavailable Daisy Mercado MD Unavailable [phone] Haven Cox MD Unavailable [phone] Reason for Visit * Auth/Cert (Routine) Specialty Diagnoses / Procedures Referred By Contmarino t Referred To Contact Referral ID Status Reason Start Date Expiration Date Visits Re quested Visits Authorized [id number] 1 1 Encounter Details Date Type Department Care Team (Late st Contact Info) Description 11/13/2024 11:30 AM CDT Home Care Visit [facility] [address] [place] [address] Fawad Anderson, VINYL DIPPER CHUMMER INITIAL EVAL Social History Tobacco Use Types Packs/Day Years Used Date Smoking Tobacco: Never Smokeless Tobacco: Never Alcohol Use Standard Drinks/Week Comments No 0 (1 standard drink = 0.6 oz pur e alcohol) OASIS D0700: Social Isolation Answer Da te Recorded Frequency of experiencing loneliness or isolatio n Sometimes 11/04/2024 OASIS A1250: Transportation Answer Date Recorded Lack of Transportation (Medical) No 11/04/2024 Lack of Transportation (Non-Medical) No 11/04/2024 Patient Unable or Declines to Respond No 11/04/2024 OASIS B1300: Health Literacy Answer Devan e Recorded Frequency of needing help to read materials from doctor or pharmacy Sometimes 11/04/2024 [facility] Utilities Answer Date Recorded In the past 12 months has e [employer], [employer], oil, or water [email or web address] threatened to shut off services in your home? No 10/22/2024 Social Connection and Isolat ion Panel [NHANES] Answer Date Recorded In a typical week, how many times do you talk on the phone with family, friends, or neighbors? More than three times a week 10/22/2024 How often do you get togethe r with friends or relatives? More than three times a week 10/22/2024 How often do you attend chur ch or bahai services? Never 10/22/2024 Do you belong to any clubs o r organizations such as judaism groups, unions, fraternal or athletic groups, or school groups? No 10/22/2024 How often do you attend meet ings of the clubs or organizations you belong to? Never 10/22/2024 Are you , , di vorced, , never , or living with a partner? 10/22/2024 AUDIT-C Answer Date Recorded Q1: How often [...] like food, housing, medical care, and heating? Somewhat hard 10/22/2024 PHQ-2 Answer Date Recorded PHQ-2 Total Score 0 10/22/2024 Hunger Vital Sign Answer Date Recorded Within the past 12 months, y ou worried that your food would run out before you got the money to buy more. Never true 10/23/19 25 Within the past 12 months, t he food you bought just didn't last and you didn't have money to get more. Never true 10/22/2024 PRAPARE - Transportation Answer Date Re corded In the past 12 months, has l ack of transportation kept you from medical appointments or from getting medications? No 11/2024 In the past 12 months, has l ack of transportation kept you from meetings, work, or from getting things needed for daily living? No 10/22/2024 Housing Stability Vital Sign Answer Devan e [...] in a half-way (including now)? No 02/27/2023 Housing Stability Vital Sign Answer Devan e Recorded In the last 12 months, was t here a time when you were not able to pay the mortgage or rent on time? No 10/22/2024 In the past 12 months, how m any times have you moved where you were living? 0 10/22/2024 At any time in the past 12 m [facility], were you homeless or living in a half-way (including now)? No 10/22/2024 Personal Safety Answer Date Recorded Have you ever been in or are you currently in a harmful physical or emotional relationship or is someone making you feel afraid or unsafe? 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 Pt's son and dtr present during home visit Patient is a 73 yo female admitted to Home Health with Primary Dx: Pancreatic adenocarcinoma SBAR Focus of Care: Malignant neoplasm of pancreas Health history: Pt is doing chemotherapy. prolapsed uterus,UTI, malnutrition, recent falls Current supports in place: Son, DIL and dtrs assist as needed. DIL and dtr are nurses. Per pt, she is signing up with [place] [facility] today. One dtr is on FMLA and may be available to be paid caregiver to pt. Pt has IDOA services in the past when she resided in [facility] ?? 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 DIL is a [place] [facility] executive director and is assisting pt with getting a hospital bed and needed DME. Pt voices that she will not be getting any additional chemo treatments, has been referred to lymphedema program. Per pt, she may be going [facility] in [place] in order to get another opinion and determine if there are any treatment options. Pt reports she has another CT scan in 3 weeks to see if the tumor has progressed - Personal care: Pt can shower self, needs assistance getting in and out of the walk in with a lip - Housekeeping: Family assists with Aids - Meals: Family assist with meal prep and shopping - Transportation: Family provides Employment/Income/Financial stability: Collects social security, able to afford basic, has outstanding medical bills Hobbies/Daily activities/Social Engagement: Pt enjoyed gardening and baking Current stressors/Coping skills: Some financial stressors with medical bills and having so many specialist appointments Mental Health/Substance: Pt reports some anxiety and difficulty sleeping. Pt is prescribed Citalopram by her PCP. Pt reports that she has information regarding [facility] and plans on utilizing those services ?? ASSESSMENT Pt Goals/Needs: Per pt, I'd like to live comfortably, have quality of life, do what I want to do, Ihave a lot of friends Pt mood/outlook: Pt was neat and clean, personable, and cooperative. Pt's affect and behavior were appropriate --HCPOA in place: No Orientation: Alert and oriented Strengths: able to make needs known, able to meet basic needs, good family support. Pt motivated and hopeful, has a bucket list Concerns/Barriers/Challenges: None Safety concerns: Pt is living with her son, they have 3 dogs that they try to keep put up. The dogsmay get loose but they are friendly RECOMMENDATIONS AND INTERVENTIONS Problem: Pt has some financial stressors with medical bills Progress: COMPLETED 11/13 CHUMMER provided [facility] financial assistance application and a print out of an application for financial assistance through pancreatic cancer foundation Problem: Pt does not have HCPOA Progress: COMPLETED 11/13 CHUMMER discuss HCPOA, provided Five Wishes POA for pt to consider and discuss with family. CHUMMER provided free coffee shop aide resource at [facility] [phone] for POA for health and property Problem: One dtr is on FMLA and may be available to be paid caregiver to pt Progress: PROGRESSING 11/13 CHUMMER will make a referral to [facility] [phone] for paid in-home care services, ERB, MOW and medication dispenser. Pt informed that the Sr Services will reach out to schedule initial assessment in approx 6-8 week. [facility] at [phone] to inquire about status of referral. Pt voiced understanding ?? Interventions: CHUMMER assessed patient emotional wellbeing, mental health, strengths, resources, and unmet needs. CHUMMER provided emotional support and information on appropriate community resources. No further CHUMMER follow up scheduled at this time; pt, family, or care team members can request additional CHUMMER visit if needs arise. CHUMMER will coordinate care with Home Care Team. documented in this encounter Plan of Treatment Not on file documented as of this encounter Visit Diagnoses Not on filedocumented in this encounter Home Health Visit - Care Plan Visit Details Visit Type -CHUMMER Initial Eval uation Discipline -Medical Social Work Problems Problem Description Start Date Status Goals Interve ntions Fall Precautions/Safe ty Concerns Disciplines: Skilled Disciplines, HH All Disciplines Fall precautions and general safety 11/04/2024 Resolved on 11/13/2024 - 1 problem intervention scheduled/[place] in this visit CHUMMER Resource Needs Disciplines: Social Work Deficit related to resources. 11/13/2024 Resolved on 11/13/2024 1 goal linked to scheduled/docume nted intervention 1 goal intervention scheduled/[place] in this visit CHUMMER Emotional Support Needs Disciplines: Social Work Deficit related to emotional support. 11/13/2024 Resolved on 11/13/2024 1 goal linked to scheduled/docume nted intervention 1 goal intervention scheduled/[place] in this visit Goals Goal Associated Problem Outcome Goal Met? Visit Notes Understanding of available resources Description: Resource needs met as evidenced by patient/family/ caregiver verbalizes understanding of available resources and ways to obtain these. CHUMMER Resource Needs Completed Yes Increase emotional support Description: Patient/ family/ caregiver understands impact of illness as evidenced by verbalizing acceptance of the disease process. CHUMMER Emotional Support Needs Completed Yes Interventions Intervention Associated Problem/Goal Status Variance Visit Notes High Fall Risk Prevention Description: Instruct patient/caregiver to use proper lighting in all areas, stand/sit up slowly, use appropriate footwear when walking, use proper assistive devices, and to keep pathways clear of cords and clutter to prevent falls. Remove/secure throw rugs. Edu matilde patient on medications and disease processes that increase fall risk, using corrective lenses as prescribed, placing hard to reach items within reach, equipment used for fall prevention, what to do in the event of a fall and to report any falls to [facility] agency. Problem:Fall Precautions/Safety Concerns Completed Provide assistance with identifying appropriate community resources Description: Provide assistance with identifying appropriate community resources Problem:CHUMMER Resource Needs Goal:Understanding of available resources Completed CHUMMER PSYCHOSOCIAL SBAR Visit with pt completed on: 11/13/24 SITUATION CHUMMER arrived to pt home for initial evaluation. Pt's son and dtr present during home visit Patient is a 73 yo female admitted to Home Health with Primary Dx: Pancreatic adenocarci noma SBAR Focus of Care: Malignant neoplasm of pancreas Health history: Pt is doing chemotherapy. prolapsed uterus,UTI, malnutrition, recent falls Current supports in place: Son, DIL and dtrs assist as needed. DIL and dtr are nurses. Per pt, she is s igning up with [place] [facility] today. One dtr is on FMLA and may be available to be paid caregiver to pt. 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 DIL is a [place] [facility] executive director and is micaela jarocho pt with getting a hospital bed and needed DME. Pt voices that she will not be getting any additional chemo treatments, has been referred to lymphedema program. Per pt, she may be going [facility] in [place] in order to get another opinion and deter mine if there are any treatment options. Pt reports she has another CT scan in 3 weeks to see if the tumor has progressed - Personal care: Pt can shower self, needs assistance getting in and out of the walk in with a lip - Housekeeping: Family assists with Aids - Meals: Family assist with meal prep and shopping - Transportation: Family provides Employment/Income/Gail ncial stability: Collects social security, able to afford basic, has outstanding medical bills Hobbies/Daily activities/Social Engag ement: Pt enjoyed gardening and baking Current stressors/Coping skills: Some financial stressors with medical bills and having so many specialist appointments Mental Health/Substance: Pt reports some anxiety and difficulty sleeping. Pt is prescribed Ci talopram by her PCP. Pt reports that she has information regarding [facility] and plans on utilizing those services ASSESSMENT Pt Goals/Needs: Per pt, I'd like to live comfortably, have quality of life, do what I want to do, I have a lot of friends Pt mood/outlook: Pt was neat and clean, personable, and cooperative. Pt's affect and behavior were appropriate --HCPOA in place: No Orientation: Alert and oriented Strengths: able to make needs known, able to meet basic needs, good family sup port. Pt motivated and hopeful, has a bucket list Concerns/Barriers/Chal lenges: None Safety concerns: Pt is living with her son, they have 3 dogs that they try to keep put up. The dogs may get loose but they are friendly RECOMMENDATIONS AND INTER VENTIONS Problem: Pt has some financial stressors with medical bills Progress: COMPLETED 11/13 CHUMMER provided [facility] financial assistance application and a print out of an application for financial assistance through pancreatic cancer foundation Jim m: Pt does not have HCPOA Progress: COMPLETED 11/13 CHUMMER discuss HCPOA, provided Five Wishes POA for pt to consider and discuss with family. CHUMMER provided free coffee shop aide resource at [facility] [phone] for POA for health and property Problem : One dtr is on FMLA and may be available to be paid caregiver to pt Progress: PROGRESSING 11/13 CHUMMER will make a referral to [facility] [phone] for paid in-home care services, ERB, MOW and medication dispenser. Pt informed that the Sr S ervices will reach out to schedule initial assessment in approx 6-8 week. Pt can call [facility] at [phone] to inquire about status of referral. Pt voiced understanding Interventions: CHUMMER assessed patient emotional wellbeing, mental health, strengths , resources, and unmet needs. CHUMMER provided emotional support and information on appropriate community resources. No further CHUMMER follow up scheduled at this time; pt, family, or care team members can request additional CHUMMER visit if needs arise. CHUMMER will c oordinate care with Home Care Team. Provide Emotional Support Description: Provide emotional support Problem:CHUMMER Emotional Support Needs Goal:Increase emotional support Completed CHUMMER provided emotional support and encouragement to patient through conversation, active listening and supportive presence documented in this encounter Care Teams Microbiology Technician Relationship Specialty Start Date End Date Leonidas Rubio MD [address] [place] [address] PCP - General Family Medicine 09/05/24 Arianna Persaud PA [address] [place] [address] Physician Radiologic Technologist Mammogram 08/29/24 David Brewer MD [address] [place] [address] Referring Physician Gastroenterology 09/23/24 Haven Cox MD [address] [place] [address] Consulting Physician Medical Oncology 09/23/24 JessDaisy kendrick MD [address] [facility] [address] [place] [address] Consulting Physician General Surgery 09/23/24 Haven Cox MD [address] [place] [address] Consulting Physician Medical Oncology 10/28/24 documented as of this encounter
--- OUTSIDE RECORDS SUMMARY | 2024-11-14 04:10 | XMS_ITS | Encounter Summary ---
Author Organization [facility] Address [address] [place] [address] Phone Care Team Providers Care Cigarette Inspector Name Role Phone Arianna Persaud Unavailable [phone]- [phone] Lenoidas Rubio MD Primary Care Provider David Brewer MD Unavailable Haven Cox MD Unavailable Daisy Mercado MD Unavailable [phone] Haven Cox MD Unavailable [phone] Encounter Details Date Type Department Care Team (Late st Contact Info) Description 09/20/2024 Results Follow-Up [facility] Gastroenterology [facility] [address] [place] [address] David Brewer MD [address] [place] [address] CT Body Outside Consult Social [...] materials from doctor or pharmacy Never 04/11/2023 [facility] Utilities Answer Date Recorded In the past 12 months has th e [employer], [employer], oil, or water [employer] threatened to shut off services in your [...] any clubs o r organizations such as samaritan groups, unions, fraternal or athletic groups, or [...] on file 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 Gender Identity Not on file Sexual Orientation Not on file documented as of this encounter Plan of Treatment Not on file documented as of this encounter Visit Diagnoses Not on filedocumented in this encounter Additional Health Concerns Infection Onset Date Last Indicated Resolved Time COVID: Suspected 10/20/2024 10/20/2024 10/21/2024 12:45 AM CDT documented as of this encounter Care Teams Cigarette Inspector Relationship Specialty Start Date End Date Leonidas Rubio MD [address] [place] [address] PCP - General Family Medicine 09/05/24 Arianna Persaud PA [address] [place] [address] Physician Coagulant Dipper 08/29/24 David Brewer MD [address] [place] [address] Referring Physician Gastroenterology 09/23/24 Haven Cox MD [address] [place] [address] Consulting Physician Medical Oncology 09/23/24 Daisy Mercado MD [address] [facility] [place] [address] [place] [address] Consulting Physician General Surgery 09/23/24 Haven Cox MD [address] [place] [address] Consulting Physician Medical Oncology 10/28/24 documented as of this encounter
--- OUTSIDE RECORDS SUMMARY | 2024-11-14 04:10 | XMS_ITS | Continuity of Care Document ---
Author Organization [facility] Address [address] [place] [address] Phone Care Team Providers Care Rail Assembler Name Role Phone Maribel BROWN, Ramirez Unavailable [...] OFFICE/OUTPA TIENT VISIT NEW [facility], [address], [place], [address], [place] tel:[phone] [facility] [place] CervicalgiaOther spondylosis with myelopathy, cervical regionAbnormal reflex 4 Maribel Guzmán. [address], [place], [place], [address] , [place]. tel: [phone] Referring Provider: Nidhi Smart [address], [place], [address]. tel:[phone] Family History Family Member Type Diagnosis Age At Onset No Information Payers Payer name Insurance type Covered republican ID Pedro chaney(s) AAR Medicare Complete HMO-POS [id number] Social History Type Description Quantity Date [...]
--- OUTSIDE RECORDS SUMMARY | 2024-11-14 04:10 | XMS_ITS | Clinical Summary ---
Author Organization [facility] Address [address] [place] [address] Phone Care Team Providers Care Sales And Service Representative Name Role Phone Linette Yepez MD Primary Care Provider [phone] Allergies Active Allergy Reactions Criticality Noted Date [...] 90 mL 360 mL 04/14/2020 2:38 PM CYBER SECURITY ADMINISTRATOR 0 Active ondansetron (Zofran ODT) 8 mg Tablet, Rapid Dissolve Dissolve 1 Tablet (8 mg) by mouth every 8 hours as needed for nausea or vomiting. 20 Tablet 2 04/14/2020 2:38 PM CYBER SECURITY ADMINISTRATOR 0 Active Active Problems Problem Noted [...] Comments Blood Pressure 168/83 04/14/2020 7:59 AM CYBER SECURITY ADMINISTRATOR Pulse 61 04/14/2020 7:59 AM CYBER SECURITY ADMINISTRATOR Temperature 36.8 C (98.2 F) 04/14/2020 7:59 AM CYBER SECURITY ADMINISTRATOR Respiratory Rate 18 04/14/2020 7:59 AM CYBER SECURITY ADMINISTRATOR Oxygen Saturation 98% 04/14/2020 7:59 AM CYBER SECURITY ADMINISTRATOR Inhaled Oxygen Concentration - - Weight 108.2 kg (238 lb 9.6 oz) 04/13/2020 7:05 AM CYBER SECURITY ADMINISTRATOR Height 160 cm (5' 3) 04/13/2020 7:05 AM CYBER SECURITY ADMINISTRATOR Body Mass Index 42.27 04/13/2020 7:05 AM CYBER SECURITY ADMINISTRATOR Plan of Treatment Health Maintenance Due [...] (#1) 2024 Medical Devices Implanted Type Area Duck Operator Device Identifier Shelf Expiration Date Model / Serial / Lot Seamguard Endogia 60 [id number] [id number] - [id number] Implanted:Qty : 2 on 04/13/2020 by Hong Bryant MD at [facility] N/A: Abdomen [employer] 12/02/2022 [id number] / / [id number] Seamguard Endogia 60 Blk [id number] - [id number] Implanted:Qty : 1 on 04/13/2020 by Hong Bryant MD at [facility] N/A: Abdomen [employer] 08/19/2022 [id number] / / [id number] Insurance RX [employer] RX Member Subscriber Plan / Payer (Ef fective 2016-Present) Name:Raman Susannah A Relation to Subscriber:Self Name:Raman Susannah A Payer ID:Not on file Group ID:[id number] Type:RX Medicare Part D Address: [address] Advance Directives For more information, please contact: [phone] * Full Code (Latest Code Status on File) Date Activated Date Inactivated Comments 04/13/2020 1:09 PM 04/14/2020 5:55 PM Care Teams Sales And Service Representative Relationship Specialty Start Date End Date Linette Yepez MD PCP - General Family Practice 04/01/20
--- OUTSIDE RECORDS SUMMARY | 2024-11-14 04:10 | XMS_ITS | Encounter Summary ---
Author Organization [facility] Address [address] [place] [address] Phone Care Team Providers Care Cd Mixer Helper Name Role Phone Arianna Persaud Unavailable [phone]- [phone] Leonidas Rubio MD Primary Care Provider David Brewer MD Unavailable [phone] Haven Cox MD Unavailable Daisy Mercado MD Unavailable [phone] Haven Cox MD Unavailable [phone] Encounter Details Date Type Department Care Team (Late st Contact Info) Description 09/20/2024 Results Follow-Up [facility] [address] [place] [address] Medical Office Building [address], [address] [place] [address] David Brewer MD [address] [place] [address] Surgical pathology Social History Tobacco [...] materials from doctor or pharmacy Never 04/11/2023 [facility] Utilities Answer Date Recorded In the past 12 months has th e [employer], gas, oil, or water [employer] threatened to shut off services in your [...] often do you attend chur ch or jehovah's witness services? 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 Gender Identity Not on file Sexual Orientation Not on file documented as of this encounter Plan of Treatment Not on file documented as of this encounter Visit Diagnoses Not on filedocumented in this encounter Additional Health Concerns Infection Onset Date Last Indicated Resolved Time COVID: Suspected 10/20/2024 10/20/2024 10/21/2024 12:45 AM CDT documented as of this encounter Care Teams Cd Mixer Helper Relationship Specialty Start Date End Date Leonidas Rubio MD [address] [place] [address] PCP - General Family Medicine 09/05/24 Arianna Persaud PA [address] [place] [address] Physician Security Shift Manager 08/29/24 David Brewer MD [address] [place] [address] Referring Physician Gastroenterology 09/23/24 Haven Cox MD [address] [place] [address] Consulting Physician Medical Oncology 09/23/24 Daisy Mercado MD [address] [facility] [id number] [place] [address] Consulting Physician General Surgery 09/23/24 Haven Cox MD [address] [place] [address] Consulting Physician Medical Oncology 10/28/24 documented as of this encounter
--- OUTSIDE RECORDS SUMMARY | 2024-11-14 04:10 | XMS_ITS | Encounter Summary ---
Author Organization [facility] [address] [place] [address] Care Team Providers Care Solar Thermal Installer Name Role Phone Linette Yepez MD Primary Care Provider [phone] Reason for Visit * Reason Onset Date Comments MEDICAL MANAGEMENT 04/13/2020 [facility]/ [facility] Encounter Details Date Type Department Care Team ([facility] st Contact Info) Description 04/13/2020 Telephone [facility] Admitting [address] [place] [address] [place] MD [id number] [place] [address] [place] [address] MEDICAL MANAGEMENT (JENNIFER Nettles/ RAVI Nettles/ HOSPITALIST [...] COVID-19? No / Unsure 04/13/2020 6:46 AM INFORMATION ASSURANCE documented as of this encounter Plan of Treatment Not on file documented as of this encounter Visit Diagnoses Not on filedocumented in this encounter Care Teams Solar Thermal Installer Relationship Specialty Start Date End Date Linette Yepez MD PCP - General Family Practice 04/01/20 documented as of this encounter
--- OUTSIDE RECORDS SUMMARY | 2024-11-14 04:10 | XMS_ITS | Encounter Summary ---
Author Organization [facility] Address [address] [place] [address] Care Team Providers Care Drying Equipment Operator Name Role Phone Arianna Persaud Unavailable + [phone] Leonidas Rubio MD Primary Care Provider David Brewer MD Unavailable [phone] Haven Cox MD Unavailable [phone] Daisy Mercado MD Unavailable [phone] Haven Cox MD Unavailable [phone] Encounter Details Date Type Department Care Team (Latest Contact Info) Description 11/12/2024 10:07 AM CDT - 11/12/2024 11:59 PM CDT Hospital Encounter [address] [address] Dysuria Discharge Disposition: Discharge to home or self [...] materials from doctor or pharmacy Sometimes 11/04/2024 [facility] Utilities Answer Date [...] often do you attend chur ch or lutheran services? Never 10/22/2024 Do you belong to [...] in a retirement (including now)? No 02/27/2023 Housing Stability Vital Sign Answer Devan e Recorded In the last 12 months, was t here a time when you were not able to pay the mortgage or rent on time? No 10/22/2024 In the past 12 months, how m any times have you moved where you were living? 0 10/22/2024 At any time in the past 12 m [facility], were you homeless or living in a retirement (including now)? No 10/22/2024 Personal Safety Answer Date Recorded Have you ever been in or are you currently in a harmful physical or emotional relationship or is someone making you feel afraid or unsafe? 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[employer] Gender Identity Not on file Sexual Orientation Not on file documented as of this encounter Medications at Time of Discharge al & mag hydroxide with simethicone-diphenh ydramine-lidocaine (MAGIC MOUTHWASH) suspension 1-6-1Narpfyjulam:Pa ncreatic adenocarcinoma (HCC) Swish and swallow 10-15 mL every 4 (four) hours as needed (prevention and treatment of chemotherapy-in duced mouth sores) 480 mL 3 10/28/2024 busPIRone (BUSPAR) 7.5 mg tabletIndications:G eneralized Anxiety Disorder TAKE 1 TABLET(7.5 MG) BY MOUTH THREE TIMES DAILY 90 tablet 2 07/27/2022 carvediloL (COREG) 6.25 mg tabletIndications:h ypertension Take 1 tablet (6.25 mg total) by mouth 2 (two) times a day 60 tablet 5 10/01/2024 citalopram (CeleXA) 40 mg tabletIndications:A nxiety with Depression,major depressive disorder Take 1 tablet (40 mg total) by mouth daily 90 tablet 08/10/2022 diphenoxylate-atrop ine (LOMOTIL) 2.5-0.025 mg per tabletIndications:d iarrhea Take 1 tablet by mouth 4 (four) times a day as needed for diarrhea 90 tablet 11/04/2024 5 estradioL (ESTRACE) 0.01 % (0.1 mg/gram) vaginal creamIndications:Va ginal atrophy Apply nightly to vagina for 1 week, then Monday/ y/ Monday 42.5 g 5 11/12/2024 6 furosemide (LASIX) 20 mg tabletIndications:E kylie,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 Take 1 tablet (20 mg total) by mouth daily 30 tablet 2 10/28/2024 6 gauze bandage 4 X 4 spongeIndications:U rinary retention Apply 1 Box topically as needed (to use with self cath) 50 each 3 11/12/2024 hydrOXYzine (ATARAX) 25 mg tabletIndications:a nxiety Take 1 tablet by mouth every 8 (eight) hours as needed (nausea) 01/09/2023 hyoscyamine (OSCIMIN) 0.125 mgIndications:diarr hea DISSOLVE 1 TABLET ON THE TONGUE FOUR TIMES DAILY 08/30/2024 lidocaine jelly (XYLOCAINE) 2 %Indications:Urinar y retention Apply topically as needed for pain (discomfort) 45 mL 1 11/12/2024 5 lidocaine-prilocain e (EMLA) creamIndications:Ad ministration of Local Anesthesia Apply topically as needed for pain 30 g 1 10/15/2024 lisinopriL (PRINIVIL,ZESTRIL) 40 mg tablet TAKE 1 TABLET(40 MG) BY MOUTH DAILY 90 tablet 3 05/27/2024 loperamide (IMODIUM A-D) 2 mg tabletIndications:C hemotherapy-Induced Diarrhea,diarrhea Take 1 tablet (2 mg total) by mouth as needed for diarrhea (Take 2 tablets with first episode of diarrhea and 1 tablet after each additional episode of diarrhea. Up to 8 tablets daily.) 120 tablet 1 10/15/2024 morphine (MSIR) 30 mg tabletIndications:P ancreatic adenocarcinoma (HCC) Take 0.5 tablets (15 mg total) by mouth every 4 (four) hours as needed for pain 60 tablet 11/07/2024 5 morphine ER (MS CONTIN) 30 mg 12 hr tabletIndications:P ancreatic adenocarcinoma (HCC) Take 1 tablet (30 mg total) by mouth every 12 (twelve) hours 60 tablet 11/11/2024 5 naloxone (NARCAN) 4 mg/actuation spray,non-aerosolIn dications:Opioid Toxicity as directed Nasally in an opioid emergency for 30 days 09/26/2024 ondansetron ODT (ZOFRAN-ODT) 8 mg disintegrating tabletIndications:C ancer Chemotherapy-Induce d Nausea and Vomiting Take 1 tablet (8 mg total) by mouth every 8 (eight) hours as needed for nausea or vomiting 120 tablet 2 10/07/2024 pancrelipase (Zenpep) 40,000-126,000- 168,000 unit per capsuleIndications: exocrine pancreatic insufficiency Take 2 capsules by mouth as directed Take 2 capsules 9 times daily with meals. 540 capsule 1 11/11/[address] (PROTONIX) 40 mg EC tabletIndications:S tress Ulcer Prophylaxis Take 1 tablet (40 mg total) by mouth daily potassium chloride ER 20 mEq CR tabletIndications:P ancreatic adenocarcinoma (HCC) TAKE 1 TABLET(20 MEQ) BY MOUTH DAILY 90 tablet 11/05/2024 prochlorperazine (Compazine) 10 mg tabletIndications:C ancer Chemotherapy-Induce d Nausea and Vomiting Take 1 tablet (10 mg total) by mouth every 6 (six) hours as needed for nausea or vomiting 120 tablet 3 10/13/2024 propafenone SR (RYTHMOL SR) 225 mg 12 hr capsuleIndications: Prevention of Recurrent Atrial Fibrillation Take 1 capsule (225 mg total) by mouth 2 (two) times a day 60 capsule 11 10/01/2024 rivaroxaban (XARELTO) 20 mg tabletIndications:a trial fibrillation Take 1 tablet (20 mg total) by mouth daily 90 tablet 3 05/09/2024 syringe with needle (Syringe 3cc/25Gx1) 3 mL 25 gauge x 1 syringe 1 Syringe every 30 (thirty) days 3 each 12/23/2021 documented as of this encounter Discharge Disposition Disposition Code Departure Means Destination Discharge to home or self care documented in this encounter Plan of Treatment Not on file documented as of this encounter Procedures Procedure Name Priority Date/Time Associated Diagnosis Comments URINE CULTURE Routine 11/12/2024 1:12 PM CDT Dysuria documented in this encounter Results * Urine culture Urine, clean voided (11/12/2024 1:12 PM CDT) Report Final Report: No growth Urine, clean voided 11/12/2024 1:12 PM CDT 11/12/2024 1:25 PM CDT Narrative [facility] - 11/13/2024 3:55 PM CDT Testing performed by [facility] [phone]) Jackie Szymanski MD LAB MICROBIOLOGY - GEN ERAL ORDERABLES Final Result [facility] Department [place] [address] documented in this encounter Visit Diagnoses Diagnosis Dysuria documented in this encounter Care Teams Drying Equipment Operator Relationship Specialty Start Date End Date Leonidas Rubio MD [address] [place] [address] PCP - General Family Medicine 09/05/24 Arianna Persaud PA [address] [place] [address] Physician Chip Drier 08/29/24 David Brewer MD [address] [place] [address] Referring Physician Gastroenterology 09/23/24 Haven Cox MD [address] [place] [address] Consulting Physician Medical Oncology 09/23/24 Daisy Mercado MD [address] [facility] [address] [place] [address] Consulting Physician General Surgery 09/23/24 Haven Cox MD [address] [place] [address] Consulting Physician Medical Oncology 10/28/24 documented as of this encounter
--- OUTSIDE RECORDS SUMMARY | 2024-11-14 04:10 | XMS_ITS | Clinical Summary ---
Author Organization [facility] Address [address] [place] [phone] Phone Care Team Providers Care Case Coordinator Name Role Phone Linette Yepez MD Primary Care Provider [phone] Allergies Active Allergy Reactions Criticality Noted Date [...] mg by mouth 2 times daily. rx [id number] Active NIFEdipine CR (PROCARDIA-XL) 30 MG TABLET SR 24 HR Take 30 mg by mouth daily. rx [id number] Active Buprenorphine HCl (Belbuca) 600 MCG FILM Take 1 Film by mouth 2 times daily. rx [id number] Active hydrOXYzine (ATARAX) 25 MG Tablet Take 25 mg by mouth 3 times daily as needed for Itching or Nausea (vomiting). rx [id number] Active famotidine (PEPCID) 20 MG Tablet Take 20 mg by mouth daily. rx [id number] Active traMADol (ULTRAM) 50 MG Tablet take [...] Active Active Problems No known active problems Immunizations Immunization Administration Dates Next Due Influenza [...] With 1 Tdap) 03/19/2024 03/19/2014 Influenza Immunization (#1) 2024 10/0 04/2014, 02/21/2009 Respiratory Syncytial Virus (RSV) Immunization (Adult) [...] on patient's age to complete this topic Insurance MEDICARE C [facility] Advance Directives * Full Code (Latest Code Status on File) Date Activated Date Inactivated Comments 12/27/2023 9:36 AM Care Teams Case Coordinator Relationship Specialty Start Date End Date Linette Yepez MD [address] [facility] [address] [place] [address] PCP - General Family Medicine 12/08/23
--- OUTSIDE RECORDS SUMMARY | 2024-11-14 04:11 | XMS_ITS | Referral Summary ---
Author Organization [facility] Address [address] [place] [address] Care Team Providers Care Kiln Packer Name Role Phone Arianna Persaud Unavailable + [phone] Leonidas Rubio MD Primary Care Provider David Brewer MD Unavailable [phone] Kalli Cox M Mili BROWN Unavailable Daisy Mercado MD Unavailable [phone] Kalli Cox MD Unavailable Encounters Date Type Department Care Team Description 11/14/19 25 11:30 AM CDT Home Care Visit [address] [place] [address] Fawad Anderson LCSW DATA CONTROL CLERK INITIAL EVAL 11/13/19 25 Home Care Visit [address] [place] [address] Fawad Anderson LCSW CASE COMMUNICATION 11/13/19 25 10:07 AM CDT - 11/13/19 25 11:59 PM CDT Hospital Encounter [address] [address] Dysuria Discharge Disposition: Discharge to home or self care 11/13/19 Home Care Visit [facility] [address] [facility] [address] [place] [address] Edison Lopez, RN CASE COMMUNICATION 11/13/19 10:30 AM CDT Home Care Visit [facility] [address] [facility] [address] [place] [address] Edison Lopez, AUSTEN HOME VISIT 11/13/19 9:00 AM CDT Office Visit [facility] Obstetrics and Gynecology [address] [facility] 7th Floor [address] [place] [phone] Jackie Szymanski MD Dysuria (Primary Dx); Vaginal atrophy; Uterine prolapse; Urinary retention 11/12/19 Telephone [facility] Oncology [address] [place] [address] 6 [place] [address] Lissette Ortiz RN 11/12/19 10:00 AM CDT Office Visit [facility] Oncology [address] [facility] [address] [place] [phone] Kalli Cox MD Pancreatic adenocarcinoma (HCC) (Primary Dx); Vaginal spotting 11/12/19 9:00 AM CDT Clinical Support [facility] 10 [place] [address] Pancreatic adenocarcinoma (HCC) 11/09/19 Documentation [facility] [address] [place] [address] Ivet Domingo NP 11/09/19 Telephone [facility] Oncology [address] [place] [address] Floor 6 [place] [address] Lissette Ortiz RN 11/08/19 Home Care Visit [facility] [address] [facility] [address] [place] [address] Shilpi Eng PT CASE COMMUNICATION 11/06/19 Telephone [facility] Oncology [address] [facility] 6 [place] [address] Lissette Ortiz, AUSTEN 11/06/19 25 Telephone [facility] Oncology [address] [facility] [address] [place] [phone] Talia Serna CMA 11/06/19 12:30 PM CDT - 11/06/19 11:59 PM CDT Hospital Encounter [facility] Radiology Echo Lab [address] [place] [address] Pancreatic adenocarcinoma (HCC); Bilateral lower extremity edema Discharge Disposition: Discharge to home or self care 11/05/19 Plan of Care Documentation [address] [address] [address] [place] [address] 11/05/19 12:30 PM CDT Home Care Visit [address] [place] [address] Edison Lopez, AUSTEN SN OASIS START OF CARE 11/02/19 Telephone [facility] [address] [place] [address] 3rd Floor [address] [place] [address] Wesley Sanchez, AUSTEN 11/02/19 25 Telephone [facility] [address] [place] [address] 3rd Floor [address] [place] [address] Wesley Sanchez, AUSTEN 11/01/19 25 Telephone [facility] Oncology [address] [facility] Floor 1, [address] [place] [address] Edison Cardona, AUSTEN 11/01/19 25 Orders Only [facility] Oncology [address] [facility] Floor 1, [address] [place] [address] Edison Cardona, AUSTEN 11/01/19 25 Telephone [facility] [address] [facility] [address] [place] [phone] Ashley Tello RN 11/01/19 25 Telephone [facility] [address] [place] [address] Ashley Tello RN 10/29/19 25 Documentation [facility] Oncology 10 [facility] 100 [place] [address] Katt Rios LCSW 10/29/19 10:15 AM CDT Office Visit [facility] Oncology [address] [place] [address] [place] [address] Kalli Cox MD Pancreatic adenocarcinoma (HCC) (Primary Dx); Bilateral lower extremity edema 10/29/19 9:15 AM CDT Clinical Support [facility] [address] [facility] [address] Pancreatic adenocarcinoma (HCC) 10/26/19 25 Orders Only [address] [address] Kalli Cox MD Vaginal spotting (Primary Dx) 10/22/19 3:30 PM CDT - 10/26/19 3:25 PM CDT Hospital Encounter [address] [address] Kalli Cox MD Tapiavala, Shaili Jayshil, MD Dehydration (Primary Dx); Cellulitis and abscess of foot; Cellulitis of left breast; Functional diarrhea; Cellulitis of all toes of right foot; Pancreatic adenocarcinoma (HCC); Elevated liver function tests; Pancreatic mass; Intractable pain; Dizziness; Mixed anxiety and depressive disorder; Vulvovaginitis; Recurrent UTI; Anemia, macrocytic, nutritional; H/O gastric sleeve; Chronic pain syndrome; Paroxysmal atrial fibrillation (HCC); Essential hypertension; Frequent urination; Rash and nonspecific skin eruption; Fever, unspecified fever cause; Anasarca; Abnormal breast finding; Vaginal spotting Discharge Disposition: Discharge to home or self care 10/24/19 2:17 PM CDT - 10/24/19 11:59 PM CDT Hospital Encounter [facility] Radiology 1 [facility] [place] [address] Discharge Disposition: Discharge to home or self care 10/23/19 3:25 PM CDT Ancillary Procedure [facility] Vascular Lab IP 1 [facility] [address] [place] [address] 10/22/19 12:00 PM CDT Ancillary Procedure [facility] Vascular Lab IP 1 [facility] [address] [place] [phone] 10/21/19 11:16 PM CDT - 10/21/19 11:59 PM CDT Hospital Encounter [facility] Radiology [facility] [address] [place] [address] Discharge Disposition: Discharge to home or self care 10/21/19 Telephone [facility] Oncology [address] [place] [address] Floor 5 [place] [address] Jamee Fine NP 10/20/19 25 Telephone [facility] Oncology [address] [place] [address] Floor 6 [place] [address] 10/18/19 9:45 AM CDT Lab [facility] [place] at [address] [address] Pancreatic adenocarcinoma (HCC) 10/18/19 10:45 AM CDT Infusion [facility] at [address] [address] Dehydration (Primary Dx); Pancreatic adenocarcinoma (HCC) 10/17/19 25 Telephone [facility] Oncology [address] [place] [address] Floor 5 [place] [address] Lissette Ortiz RN 10/16/19 25 Documentation [facility] at [address] [address] 10/16/19 25 Telephone [facility] Oncology [address] [place] [address] Floor 6 [place] [address] Kalli Cox MD 10/16/19 25 Documentation [facility] Oncology [address] [place] [address] [address] [place] [address] Katt Rios, SLIVER MACHINE OPERATOR 10/16/19 25 Orders Only [facility] Oncology [address] [place] [address] Floor 5 [place] [address] Lissette Ortiz RN Pancreatic adenocarcinoma (HCC) (Primary Dx) 10/16/19 25 10:00 AM CDT Infusion [facility] [place] at [address] [place] [address] Pancreatic adenocarcinoma (HCC) (Primary Dx) 10/15/19 25 Orders Only [facility] Oncology [address] [place] [address] 5 [place] [address] Lissette Ortiz RN Pancreatic adenocarcinoma (HCC) (Primary Dx) 10/15/19 25 Documentation [facility] at [address] [place] [address] 10/15/19 25 Documentation [facility] Oncology [address] [place] [address] 100 [place] [address] Katt Rios, SLIVER MACHINE OPERATOR 10/15/19 25 7:30 AM CDT Clinical Support [facility] at [address] [place] [address] Pancreatic adenocarcinoma (HCC) 10/11/19 25 8:50 AM CDT - 10/11/19 25 11:59 PM CDT Hospital Encounter [facility] [address] [address] Mary Kay Campuzano, RT Gustafson, Taylor Quintana, Kacie Jorgensen RN Pancreatic adenocarcinoma (HCC) Discharge Disposition: Discharge to home or self care 10/11/19 25 7:09 AM CDT - 10/11/19 25 11:59 PM CDT Hospital Encounter [facility] Imaging [address] [facility] Medical Office Building 2 [place] [address] Pancreatic adenocarcinoma (HCC) Discharge Disposition: Discharge to home or self care 10/10/19 Telephone [facility] [address] [address], [place] [address] Leslie Armando RN 10/10/19 Telephone [facility] [address] [address], [place] [address] Megan Hsu RN 10/08/19 3:45 PM CDT [facility] [address] [facility] [place] [address] Pancreatic adenocarcinoma (HCC) 10/08/19 2:00 PM CDT Office Visit [facility] Oncology [address] [facility] [address] [place] [address] Kalli Cox MD Pancreatic adenocarcinoma (HCC) (Primary Dx); Pancreatic mass 09/28/19 1:45 PM CDT Office Visit [facility] Cardiology [address] [facility] [address], [place] [address] Onesimo George MD Atrial fibrillation status post cardioversion (HCC) (Primary Dx); History of cardiac radiofrequency ablation; Essential hypertension; Pancreatic adenocarcinoma (HCC); NOMI on CPAP; Lipid screening 09/21/19 Results Follow-Up [facility] Gastroenterology [address] [place] [address] Medical Office Building 4, [address] [place] [phone] Body Outside Consult 09/21/19 Results Follow-Up [facility] Gastroenterology [address] [place] [address] Medical Office Building 4, [address] [place] [phone] David Brewer MD Surgical pathology 09/20/19 10:17 AM CDT - 09/20/19 2:37 PM CDT Emergency [facility] [address] [facility] [address] [place] [address] Morgan Celestin MD Das, Koushik Kumar, MD Fall, initial encounter (Primary Dx); Pancreatic mass Discharge Disposition: Discharge to home or self care 09/20/19 12:40 PM CDT Anesthesia Event [facility] [address] [facility] [address] [place] [address] Travis Whittington MD 09/20/19 9:30 AM CDT - 09/20/19 10:30 AM CDT Surgery [facility] [address] [facility] [address] [place] [address] David Brewer MD ESOPHAGOGASTRODUODENOSCOPY ULTRASOUND FINE NEEDLE ASPIRATION/BIOPSY [GI534] 09/19/19 Telephone [facility] Department of Hepatobiliary, Pancreatic, & Gastrointestinal Surgery [address] [facility] 12th Floor, [place] [address] Hilda Love PA 09/18/19 25 12:15 PM CDT Lab [facility] at [address] [place] [address] Pancreatic mass; 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, unspecified; Encounter for follow-up examination after completed treatment for conditions other than malignant neoplasm 09/18/19 25 Telephone [facility] Surgery [address] [place] [address] [address] [place] [address] Susan Marroquin RN 09/18/19 25 8:30 AM CDT Office Visit [facility] Surgery [address] [place] [address] [address] [place] [address] Daisy Mercado MD Pancreatic mass (Primary Dx); Other specified diseases of pancreas; Encounter for follow-up examination after completed treatment for conditions other than malignant neoplasm; Neoplasm of uncertain behavior of other specified digestive organs 09/14/19 25 Orders Only [facility] Surgery [address] [place] [address] [address] [place] [address] Ana Sánchez PA Liver lesion (Primary Dx) 09/14/19 Orders Only [facility] Gastroenterology [facility] Medical Office Building 4, [address] [place] [address] David Brewer MD Elevated liver function tests (Primary Dx) 09/14/19 12:53 PM CDT - 09/14/19 11:59 PM CDT Hospital Encounter [facility] Radiology [facility] [address] [place] [phone] Pancreatic mass Discharge Disposition: Discharge to home or self care 09/13/19 Telephone [facility] Gastroenterology [address] [place] [address] Medical Office Building 4, [address] [place] [address] Arlyn Segovia, field automobile adjuster call 09/13/19 Orders Only [facility] Gastroenterology [address] [place] [address] Medical Office Building [address], [address] [place] [address] Arlyn Segovia, RN Pancreatic mass (Primary Dx) 09/12/19 Results Follow-Up [facility] Gastroenterology [address] [place] [address] Medical Office Building [address], [address] [place] [address] David Brewer MD Surgical pathology 09/12/19 Telephone [facility] Surgery [address] [facility] [address] [place] [address] Susan Marroquin RN 09/07/19 Orders Only [facility] [address] [place] [phone] David Brewer MD 09/07/19 1:07 PM CDT Anesthesia Event [facility] [address] [place] [phone] Wayne Nicholson MD 09/07/19 10:35 AM CDT Lab [facility] Outpatient Lab [address] [place] [phone] Pancreatic mass; Elevated liver function tests 09/07/19 6:50 AM CDT - 09/07/19 11:59 PM CDT Hospital Encounter [facility] GI Center [facility] [place] [address] Upper abdominal pain Discharge Disposition: Discharge to home or self care 09/07/19 12:30 PM CDT - 09/07/19 25 1:00 PM CDT Surgery [facility] [address] [place] [address] David Brewer MD ESOPHAGOGASTRODUODENOSCOPY ULTRASOUND GUIDE LIMITED 09/07/19 11:07 AM CDT - 09/07/19 4:10 PM CDT Hospital Encounter [facility] [address] [place] [phone] Geoffrey Shaver MD Das, Koushik Kumar, MD Pancreatic mass; Elevated liver function tests Discharge Disposition: Discharge to home or self care 09/06/19 1:04 PM CDT - 09/06/19 11:59 PM CDT Hospital Encounter [facility] Radiology [facility] [address] [place] [address] Diagnosis unknown Discharge Disposition: Discharge to home or self care 09/05/19 25 Telephone [facility] Cardiology [address] [facility] [address], [place] [phone] Onesimo George MD cardiac clearance 09/05/19 25 Telephone [facility] Gastroenterology [address] [facility] Medical Office Building 4, [address] [place] [address] Carmen Ordonez LPN GI Preprocedure 09/04/19 25 Telephone [place] [facility] Minimally Invasive Surgery [address] [facility] 12th Floor, [place] [address] Daisy Mercado MD Medical Question/Miscellaneous 09/03/19 25 Orders Only [facility] Surgery [address] [facility] [address] [place] [address] Ana Sánchez PA Pancreatic mass (Primary Dx); Encounter for follow-up examination after completed treatment for conditions other than malignant neoplasm; 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, unspecified from Last 3 Months Allergies Active Allergy Reactions Criticality Noted Date Comments Amoxicillin-Pot Clavulanate Diarrhea,Vomiting Low 10/25/2024 Patient states this causes her severe diarrhea and vomiting Hydrocodone Itching,Rash Medium 09/17/2024 Oxycodone Itching,Rash Medium 09/17/2024 Medications syringe with needle (Syringe 3cc/25Gx1) 3 mL 25 gauge x 1 syringe 1 Syringe every 30 (thirty) days 3 each 022 Active busPIRone (BUSPAR) 7.5 mg tabletIndications :Generalized Anxiety Disorder TAKE 1 TABLET(7.5 MG) BY MOUTH THREE TIMES DAILY 90 tablet 2 023 Active citalopram (CeleXA) 40 mg tabletIndications :Anxiety with Depression,major depressive disorder Take 1 tablet (40 mg total) by mouth daily 90 tablet 023 Active hydrOXYzine (ATARAX) 25 mg tabletIndications :anxiety Take 1 tablet by mouth every 8 (eight) hours as needed (nausea) [address] (PROTONIX) 40 mg EC tabletIndications :Stress Ulcer Prophylaxis Take 1 tablet (40 mg total) by mouth daily Active rivaroxaban (XARELTO) 20 mg tabletIndications :atrial fibrillation Take 1 tablet (20 mg total) by mouth daily 90 tablet 3 025 Active lisinopriL (PRINIVIL,ZESTRIL ) 40 mg tablet TAKE 1 TABLET(40 MG) BY MOUTH DAILY 90 tablet 3 025 Active hyoscyamine (OSCIMIN) 0.125 mgIndications:lenny rrhea DISSOLVE 1 TABLET ON THE TONGUE FOUR TIMES DAILY 025 Active carvediloL (COREG) 6.25 mg tabletIndications :hypertension Take 1 tablet (6.25 mg total) by mouth 2 (two) times a day 60 tablet 5 025 Active propafenone SR (RYTHMOL SR) 225 mg 12 hr capsuleIndication s:Prevention of Recurrent Atrial Fibrillation Take 1 capsule (225 mg total) by mouth 2 (two) times a day 60 capsule 11 025 2025 Active naloxone (NARCAN) 4 mg/actuation spray,non-aerosol Indications:Opioi d Toxicity as directed Nasally in an opioid emergency for 30 days 025 Active prochlorperazine (Compazine) 10 mg tabletIndications :Cancer Chemotherapy-Celena hasmukh Nausea and Vomiting Take 1 tablet (10 mg total) by mouth every 6 (six) hours as needed for nausea or vomiting 120 tablet 3 025 Active ondansetron ODT (ZOFRAN-ODT) 8 mg disintegrating tabletIndications :Cancer Chemotherapy-Celena hasmukh Nausea and Vomiting Take 1 tablet (8 mg total) by mouth every 8 (eight) hours as needed for nausea or vomiting 120 tablet 2 025 Active loperamide (IMODIUM A-D) 2 mg tabletIndications :Chemotherapy-Ind uced Diarrhea,diarrhea Take 1 tablet (2 mg total) by mouth as needed for diarrhea (Take 2 tablets with first episode of diarrhea and 1 tablet after each additional episode of diarrhea. 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 Take 1 tablet (20 mg total) by mouth daily 30 tablet 2 025 2025 Active al & mag hydroxide with simethicone-diphe nhydramine-lidoca ine (MAGIC MOUTHWASH) suspension 6-7-5Ocrrvjslplr: Pancreatic adenocarcinoma (HCC) Swish and swallow 10-15 mL every 4 (four) hours as needed (prevention and treatment of chemotherapy- induced mouth sores) 480 mL 3 025 Active diphenoxylate-atr opine (LOMOTIL) 2.5-0.025 mg per tabletIndications :diarrhea Take 1 tablet by mouth 4 (four) times a day as needed for diarrhea 90 tablet 025 2024 Active potassium chloride ER 20 mEq CR tabletIndications :Pancreatic adenocarcinoma (HCC) TAKE 1 TABLET(20 MEQ) BY MOUTH DAILY 90 tablet 07/22/2 025 Active morphine (MSIR) 30 mg tabletIndications :Pancreatic adenocarcinoma (HCC) Take 0.5 tablets (15 mg total) by mouth every 4 (four) hours as needed for pain 60 tablet 025 2024 Active morphine ER (MS CONTIN) 30 mg 12 hr tabletIndications :Pancreatic adenocarcinoma (HCC) Take 1 tablet (30 mg total) by mouth every 12 (twelve) hours 60 tablet 025 2024 Active pancrelipase (Zenpep) 40,000-126,000- 168,000 unit per capsuleIndication s:exocrine pancreatic insufficiency Take 2 capsules by mouth as directed Take 2 capsules 9 times daily with meals. 540 capsule 1 025 2024 Active estradioL (ESTRACE) 0.01 % (0.1 mg/gram) vaginal creamIndications: Vaginal atrophy Apply nightly to vagina for 1 week, then Monday// Monday 42.5 g 5 025 2025 Active lidocaine jelly (XYLOCAINE) 2 %Indications:Urin namrata retention Apply topically as needed for pain (discomfort) 45 mL 1 025 2024 Active gauze bandage 4 X 4 spongeIndications :Urinary retention Apply 1 Box topically as needed (to use with self cath) 50 each 3 Active Eclipse Syringe 3 mL 25 gauge x 1 syringe USE 1 EACH EVERY 30 DAYS 3 each 2 023 2024 Discontinued(P atient Reported) loperamide (IMODIUM A-D) 2 mg tabletIndications :diarrhea Take 1 tablet (2 mg total) by mouth 3 (three) times a day as needed for diarrhea 2024 Discontinued(S top Taking at Discharge) NIFEdipine (NIFEdipine CC) 30 mg 24 hr tablet TAKE 1 TABLET(30 MG) BY MOUTH EVERY NIGHT 30 tablet 3 025 2024 Discontinued(S top Taking at Discharge) pancrelipase (Zenpep) 40,000-126,000- 168,000 unit per capsuleIndication s:exocrine pancreatic insufficiency Take 1 capsule by mouth 3 (three) times a day with meals 45 capsule 1 025 2024 Discontinued(R eorder) tiZANidine (ZANAFLEX) 2 mg tablet Take 1 tablet (2 mg total) by mouth 3 (three) times a day 025 2024 Discontinued(S top Taking at Discharge) morphine ER (MS CONTIN) 15 mg 12 hr tablet 1 tablet (15 mg total) every 12 hours 025 2024 Discontinued oxyCODONE (ROXICODONE) 10 mg tablet Take 1 tablet (10 mg total) by mouth 2 (two) times a day as needed 025 2024 Discontinued(S top Taking at Discharge) morphine (MSIR) 15 mg tabletIndications :Pancreatic adenocarcinoma (HCC) Take 1 tablet (15 mg total) by mouth every 4 (four) hours as needed for pain 120 tablet 025 2024 Discontinued diphenoxylate-atr opine (LOMOTIL) 2.5-0.025 mg per tabletIndications :diarrhea Take 1 tablet by mouth 4 (four) times a day as needed for diarrhea 90 tablet 025 2024 Discontinued(R eorder) diphenoxylate-atr opine (LOMOTIL) 2.5-0.025 mg per tabletIndications :diarrhea Take 1 tablet by mouth 4 (four) times a day as needed for diarrhea 90 tablet 025 2024 Discontinued(R eorder) morphine ER (MS CONTIN) 15 mg 12 hr tabletIndications :Pancreatic adenocarcinoma (HCC) Take 1 tablet (15 mg total) by mouth 2 (two) times a day 60 tablet 025 2024 Discontinued pancrelipase (Zenpep) 40,000-126,000- 168,000 unit per capsuleIndication s:exocrine pancreatic insufficiency Take 1 capsule by mouth 3 (three) times a day with meals 45 capsule 1 025 2024 Discontinued pancrelipase (Zenpep) 20,000 units of lipase per capsule Take 1 capsule by mouth as needed for with snacks 60 capsule 1 025 2024 Discontinued pancrelipase (Zenpep) 40,000-126,000- 168,000 unit per capsuleIndication s:exocrine pancreatic insufficiency Take 3 capsules by mouth 3 (three) times a day with meals 45 capsule 1 025 2024 Discontinued cephalexin (KEFLEX) 500 mg capsuleIndication s:Skin/Soft Tissue Infection Take 1 capsule (500 mg total) by mouth every 6 (six) hours for 6 days 24 capsule 025 2024 doxycycline (MONODOX) 100 mg capsuleIndication s:Skin/Soft Tissue Infection Take 1 capsule (100 mg total) by mouth 2 (two) times a day for 6 days 12 capsule 025 2024 pancrelipase (Zenpep) 40,000-126,000- 168,000 unit per capsuleIndication s:exocrine pancreatic insufficiency Take 3 capsules by mouth 3 (three) times a day with meals 270 capsule 025 2024 Discontinued potassium chloride ER (KLOR-CON) 20 mEq CR tabletIndications :Other,prevention of hypokalemia Take 1 tablet (20 mEq total) by mouth daily for 7 days 7 tablet 025 2024 Discontinued(R eorder) pancrelipase (Zenpep) 40,000-126,000- 168,000 unit per capsuleIndication s:exocrine pancreatic insufficiency Take 3 capsules by mouth 3 (three) times a day with meals 270 capsule 025 2024 Discontinued(R eorder) pancrelipase (Zenpep) 20,000 units of lipase per capsule Take 1 capsule by mouth as needed for with snacks 60 capsule 1 025 2024 Discontinued morphine ER (MS CONTIN) 15 mg 12 hr tabletIndications :severe chronic pain requiring long-term opioid treatment Take 1 tablet (15 mg total) by mouth 2 (two) times a day 60 tablet 025 2024 Discontinued morphine (MSIR) 15 mg tabletIndications :Pain Take 1 tablet (15 mg total) by mouth every 4 (four) hours as needed for pain 120 tablet 025 2024 Discontinued(R eorder) pancrelipase (Zenpep) 20,000 units of lipase per capsule Take 1 capsule by mouth as needed for with snacks 60 capsule 1 025 2024 Discontinued pancrelipase (Zenpep) 20,000 units of lipase per capsuleIndication s:exocrine pancreatic insufficiency Take 1 capsule by mouth as needed for with snacks (up to 6 snacks per day) 025 2024 Discontinued(R eorder) morphine (MSIR) 15 mg tabletIndications :Pancreatic adenocarcinoma (HCC) Take 1 tablet (15 mg total) by mouth every 4 (four) hours as needed for pain 120 tablet 025 2024 Discontinued(D uplicate order) pancrelipase (Zenpep) 20,000 units of lipase per capsule Take 1 capsule by mouth as needed for with snacks (up to 6 snacks per day) 240 capsule 3 025 2024 Discontinued(A lternate therapy) morphine (MSIR) 15 mg tabletIndications :Pancreatic adenocarcinoma (HCC) Take 1 tablet (15 mg total) by mouth every 4 (four) hours as needed for pain 120 tablet 025 2024 Discontinued(A lternate therapy) potassium chloride ER (KLOR-CON) 20 mEq CR tabletIndications :Other,prevention of hypokalemia Take 1 tablet (20 mEq total) by mouth daily 30 tablet 025 2024 Discontinued pancrelipase (Zenpep) 40,000-126,000- 168,000 unit per capsuleIndication s:exocrine pancreatic insufficiency Take 2 capsules by mouth 3 (three) times a day with meals 300 capsule 025 2024 Discontinued pancrelipase (Zenpep) 40,000-126,000- 168,000 unit per capsuleIndication s:exocrine pancreatic insufficiency Take 2 capsules by mouth 3 (three) times a day with meals 540 capsule 025 2024 Discontinued(R eorder) estradioL (ESTRACE) 0.01 % (0.1 mg/gram) vaginal creamIndications: Vaginal atrophy Apply nightly to vagina for 1 week, then Monday// Monday 42.5 g 5 025 2024 Discontinued lidocaine jelly (XYLOCAINE) 2 %Indications:Urin namrata retention Apply topically as needed for pain (discomfort) 45 mL 1 025 2024 Discontinued Active Problems Problem Noted Date Diagnosed Date Lymphedema 10/25/2024 Assessment & Plan (10/25/2024 9:03 AM CDT): Patient with 2-3 months of anasarca attributed to hypoalbumnemia and portal hypertension. She has also developed fever and possible SSTI of . Vitals stable, despite some hypotension in CCC. Labs notable for hypoalbuminemia and pancytopenia. CXR unremarkable. LED negative for acute DVT. Bcx NGTD, RPP neg, UA neg. MRSA nares positive. - [facility] OT consult - patient declined lymphedema wraps - abx as above Vaginal spotting 10/23/2024 Assessment & Plan (10/25/2024 9:03 AM CDT): Reports recent vaginal spotting when wiping. Stable Hgb. - pelvis US pending - outpatient story teller follow up Assessment & Plan (10/24/2024 1:44 PM CDT): Reports recent vaginal spotting when wiping. Stable Hgb. - pelvis US - outpatient story teller follow up Assessment & Plan (10/23/2024 3:54 PM CDT): Reports recent vaginal spotting when wiping. Stable Hgb. - pelvis US - outpatient story teller follow up Moderate malnutrition 10/22/2024 Left upper extremity swelling 10/22/2024 Assessment & Plan (10/25/2024 9:03 AM CDT): LUE swelling with faint erythema. No evidence of DVT on LUE US. Assessment & Plan (10/24/2024 1:44 PM CDT): LUE swelling with faint erythema. No evidence of DVT on LUE US. Assessment & Plan (10/23/2024 8:12 AM CDT): LUE swelling with faint erythema. No evidence of DVT on LUE US. Assessment & Plan (10/22/2024 5:28 PM CDT): LUE swelling with faint erythema - LUE US Mastitis 10/21/2024 Assessment & Plan (10/25/2024 9:03 AM CDT): P/w L breast erythema and warmth, fever noted. No nipple discharge or bleeding. No palpable masses or fluctuance. Last mammogram several years ago. No known trauma. Breast ultrasound w/ superficial soft tissue swelling on US, c/w mastitis, no drainable fluid collection. - s/p vanc/ceftriaxone (10/22-10/24); transition to doxy/augmentin (10/24-10/25), did not tolerate augmentin, change oral regimen to doxy/keflex (10/25-) - repeat L mammogram in three months Assessment & Plan (10/24/2024 1:44 PM CDT): Patient with 2-3 months of anasarca attributed to hypoalbumnemia and portal hypertension. She has also developed fever and cellulitis of bilateral feet and L breast. Vitals stable, despite some hypotension in CCC. Labs notable for hypoalbuminemia and pancytopenia. CXR unremarkable. LED negative for acute DVT. Bcx NGTD, RPP neg, UA neg. MRSA nares positive. - breast US, mammogram OP - [facility] OT consult - s/p vanc/ceftriaxone (10/22-10/24); transition to doxy/augmentin (10/24-) Assessment & Plan (10/23/2024 3:54 PM CDT): Patient with 2-3 months of anasarca attributed to hypoalbumnemia and portal hypertension. She has also developed fever and cellulitis of bilateral feet and L breast. Vitals stable, despite some hypotension in CCC. Labs notable for hypoalbuminemia and pancytopenia. CXR unremarkable. LED negative for acute DVT. Bcx NGTD, RPP neg, UA neg. - breast US if able inpatient, mammogram OP - [facility] OT consult when infection resolves - follow up BCx, MRSA nares - continue vanc, de-escalate to ceftriaxone (10/22-); consider transition to orals soon Assessment & Plan (10/22/2024 5:28 PM CDT): Patient with 2-3 months of anasarca attributed to hypoalbumnemia and portal hypertension. She has also developed fever and cellulitis of bilateral feet and L breast. Vitals stable, despite some hypotension in CCC. Labs notable for hypoalbuminemia and pancytopenia. CXR unremarkable. LED negative for acute DVT. Bcx NGTD, RPP neg, UA neg. - mammogram OP - consider [facility] OT consult when infection resolves - follow up BCx, MRSA - continue vanc, de-escalate to ceftriaxone Assessment & Plan (10/21/2024 7:27 PM CDT): Patient with 2-3 months of anasarca attributed to hypoalbumnemia and portal hypertension. She has also developed fever and cellulitis of bilateral feet and L breast. Vitals stable, despite some hypotension in CCC. Labs notable for hypoalbuminemia and pancytopenia. CXR unremarkable. LED negative for acute DVT. - mammogram OP - SCD's - consider [facility] OT consult - follow up BCx, MRSA and UA - continue meropenem and vancomycin NOMI (obstructive sleep apnea) 10/21/2024 Anasarca 10/21/2024 Assessment & Plan (10/24/2024 1:44 PM CDT): Patient with 2-3 months of anasarca attributed to hypoalbumnemia and portal hypertension. She has also developed fever and cellulitis of bilateral feet and L breast. Vitals stable, despite some hypotension in CCC. Labs notable for hypoalbuminemia and pancytopenia. CXR unremarkable. LED negative for acute DVT. Bcx NGTD, RPP neg, UA neg. MRSA nares positive. - breast US, mammogram OP - [facility] OT consult - s/p vanc/ceftriaxone (10/22-10/24); transition to doxy/augmentin (10/24-) Assessment & Plan (10/23/2024 3:54 PM CDT): Patient with 2-3 months of anasarca attributed to hypoalbumnemia and portal hypertension. She has also developed fever and cellulitis of bilateral feet and L breast. Vitals stable, despite some hypotension in CCC. Labs notable for hypoalbuminemia and pancytopenia. CXR unremarkable. LED negative for acute DVT. Bcx NGTD, RPP neg, UA neg. - breast US if able inpatient, mammogram OP - [facility] OT consult when infection resolves - follow up BCx, MRSA nares - continue vanc, de-escalate to ceftriaxone (10/22-); consider transition to orals soon Assessment & Plan (10/22/2024 5:28 PM CDT): Patient with 2-3 months of anasarca attributed to hypoalbumnemia and portal hypertension. She has also developed fever and cellulitis of bilateral feet and L breast. Vitals stable, despite some hypotension in CCC. Labs notable for hypoalbuminemia and pancytopenia. CXR unremarkable. LED negative for acute DVT. Bcx NGTD, RPP neg, UA neg. - mammogram OP - consider [facility] OT consult when infection resolves - follow up BCx, MRSA - continue vanc, de-escalate to ceftriaxone Assessment & Plan (10/21/2024 7:27 PM CDT): Patient with 2-3 months of anasarca attributed to hypoalbumnemia and portal hypertension. She has also developed fever and cellulitis of bilateral feet and L breast. Vitals stable, despite some hypotension in CCC. Labs notable for hypoalbuminemia and pancytopenia. CXR unremarkable. LED negative for acute DVT. - mammogram OP - SCD's - consider [facility] OT consult - follow up BCx, MRSA and UA - continue meropenem and vancomycin Pancytopenia 10/21/2024 Assessment & Plan (10/25/2024 9:03 AM CDT): Pancytopenia s/p chemotherapy. Hgb 6.7, given 1U pRBC 1500. Denies signs or symptoms of bleeding. - CTM - Consent, T&S Assessment & Plan (10/24/2024 1:44 PM CDT): Pancytopenia s/p chemotherapy. Hgb 6.7, given 1U pRBC 1500. Denies signs or symptoms of bleeding. - CTM - Consent, T&S Assessment & Plan (10/23/2024 8:12 AM CDT): Pancytopenia s/p chemotherapy. Hgb 6.7, given 1U pRBC 1500. Denies signs or symptoms of bleeding. - CTM - Consent, T&S Assessment & Plan (10/22/2024 5:28 PM CDT): Pancytopenia s/p chemotherapy. Hgb 6.7, given 1U pRBC 1500. Denies signs or symptoms of bleeding. - CTM - Consent, T&S Assessment & Plan (10/21/2024 7:27 PM CDT): Pancytopenia s/p chemotherapy. Hgb 6.7, given 1U pRBC 1500. Denies signs or symptoms of bleeding. - Repeat H&H pending - Consent, T&S - hold xarelto given acute anemia, restart if Hgb remains stable Cellulitis 10/20/2024 Assessment & Plan (10/25/2024 9:03 AM CDT): Patient with 2-3 months of anasarca attributed to hypoalbumnemia and portal hypertension. She has also developed fever and possible SSTI of . Vitals stable, despite some hypotension in CCC. Labs notable for hypoalbuminemia and pancytopenia. CXR unremarkable. LED negative for acute DVT. Bcx NGTD, RPP neg, UA neg. MRSA nares positive. - [facility] OT consult - patient declined lymphedema wraps - abx as above Assessment & Plan (10/24/2024 1:44 PM CDT): Patient with 2-3 months of anasarca attributed to hypoalbumnemia and portal hypertension. She has also developed fever and cellulitis of bilateral feet and L breast. Vitals stable, despite some hypotension in CCC. Labs notable for hypoalbuminemia and pancytopenia. CXR unremarkable. LED negative for acute DVT. Bcx NGTD, RPP neg, UA neg. MRSA nares positive. - breast US, mammogram OP - [facility] OT consult - s/p vanc/ceftriaxone (10/22-10/24); transition to doxy/augmentin (10/24-) Assessment & Plan (10/23/2024 3:54 PM CDT): Patient with 2-3 months of anasarca attributed to hypoalbumnemia and portal hypertension. She has also developed fever and cellulitis of bilateral feet and L breast. Vitals stable, despite some hypotension in CCC. Labs notable for hypoalbuminemia and pancytopenia. CXR unremarkable. LED negative for acute DVT. Bcx NGTD, RPP neg, UA neg. - breast US if able inpatient, mammogram OP - [facility] OT consult when infection resolves - follow up BCx, MRSA nares - continue vanc, de-escalate to ceftriaxone (10/22-); consider transition to orals soon Assessment & Plan (10/22/2024 5:28 PM CDT): Patient with 2-3 months of anasarca attributed to hypoalbumnemia and portal hypertension. She has also developed fever and cellulitis of bilateral feet and L breast. Vitals stable, despite some hypotension in CCC. Labs notable for hypoalbuminemia and pancytopenia. CXR unremarkable. LED negative for acute DVT. Bcx NGTD, RPP neg, UA neg. - mammogram OP - consider [facility] OT consult when infection resolves - follow up BCx, MRSA - continue vanc, de-escalate to ceftriaxone Assessment & Plan (10/21/2024 7:27 PM CDT): Patient with 2-3 months of anasarca attributed to hypoalbumnemia and portal hypertension. She has also developed fever and cellulitis of bilateral feet and L breast. Vitals stable, despite some hypotension in CCC. Labs notable for hypoalbuminemia and pancytopenia. CXR unremarkable. LED negative for acute DVT. - mammogram OP - SCD's - consider [facility] OT consult - follow up BCx, MRSA and UA - continue meropenem and vancomycin Dehydration 10/16/2024 Pancreatic adenocarcinoma 10/07/2024 Assessment & Plan (10/25/2024 9:03 AM CDT): Dx 09/2024 on gemcitabine (last 10/15/2024). Chronic abdominal pain with reported mechanical falls over past week. Given weight loss with malignancy and weight gain with anasarca, patient high risk for sarcopenia. Continue oncology management as well as therapy evaluations as below. - continue home morphine ER and PRN - med onc c/s - continue home Creon Assessment & Plan (10/24/2024 1:44 PM CDT): Dx 09/2024 on gemcitabine (last 10/15/2024). Chronic abdominal pain with reported mechanical falls over past week. Given weight loss with malignancy and weight gain with anasarca, patient high risk for sarcopenia. Continue oncology management as well as therapy evaluations as below. - continue home morphine ER and PRN - med onc c/s - continue home Creon - PT/OT/CODING COMPLIANCE MANAGER and RD consult for falls and dysphagia Assessment & Plan (10/23/2024 8:12 AM CDT): Dx 09/2024 on gemcitabine (last 10/15/2024). Chronic abdominal pain with reported mechanical falls over past week. Given weight loss with malignancy and weight gain with anasarca, patient high risk for sarcopenia. Continue oncology management as well as therapy evaluations as below. - continue home morphine ER and PRN - med onc c/s - continue home Creon - PT/OT/CODING COMPLIANCE MANAGER and RD consult for falls and dysphagia Assessment & Plan (10/22/2024 5:28 PM CDT): Dx 09/2024 on gemcitabine (last 10/15/2024). Chronic abdominal pain with reported mechanical falls over past week. Given weight loss with malignancy and weight gain with anasarca, patient high risk for sarcopenia. Continue oncology management as well as therapy evaluations as below. - continue home morphine ER and PRN - med onc c/s - continue home Creon - PT/OT/CODING COMPLIANCE MANAGER and RD consult for falls and dysphagia Assessment & Plan (10/21/2024 7:27 PM CDT): Dx 09/2024 on gemcitabine (last 10/15/2024). Chronic abdominal pain with reported mechanical falls over past week. Given weight loss with malignancy and weight gain with anasarca, patient high risk for sarcopenia. Continue oncology management as well as therapy evaluations as below. - continue home morphine ER and PRN - [place] [facility] consult - continue home Creon - PT/OT/CODING COMPLIANCE MANAGER and RD consult for falls and dysphagia Pancreatic mass 09/04/2024 Elevated liver function tests 09/04/2024 Intractable pain 02/25/2023 Dizziness 11/07/2022 Mixed anxiety and depressive disorder 06/21/2022 Assessment & Plan (06/21/2022 7:25 PM TURPENTINE DISTILLER): Worsening after of her mother in 04/2022. Feels more anxiety than depression. Admits panic attacks. Reluctant to start daily medication, don't want to feel trapped into taking medicine. Will Rx BuSpar as directed. Encouraged relaxation techniques such as deep breathing and guided imagery. Keep follow as scheduled, sooner if needed. Diarrhea 06/20/2022 Assessment & Plan (10/25/2024 9:03 AM CDT): Hx of UC with worsened diarrhea over the past 2 months (10x daily even on lomotil and imodium). Cdiff neg. Stool cx neg. - continue lomotil and imodium - continue increased creon per RD Assessment & Plan (10/24/2024 1:44 PM CDT): Hx of UC with worsened diarrhea over the past 2 months (10x daily even on lomotil and imodium). Cdiff neg. Stool cx neg. - continue lomotil and imodium - continue increased creon per RD Assessment & Plan (10/23/2024 3:54 PM CDT): Hx of UC with worsened diarrhea over the past 2 months (10x daily even on lomotil and imodium). Cdiff neg - continue lomotil and imodium - continue increased creon per RD - f/u stool culture Assessment & Plan (10/22/2024 5:28 PM CDT): Hx of UC with worsened diarrhea over the past 2 months (10x daily even on lomotil and imodium). Cdiff neg - continue lomotil and imodium - increase creon - f/u stool culture Assessment & Plan (10/21/2024 7:27 PM CDT): Hx of UC with worsened diarrhea over the past 2 months (10x daily even on lomotil and imodium). - continue lomotil and imodium - consider addition of tincture of opium Assessment & Plan (06/21/2022 7:16 PM TURPENTINE DISTILLER): Ongoing for approximately 1 week after finishing a course of cefdinir for UTI. No more urinary symptoms or abdominal pain. No acute findings on exam. Will order CDiff test. Advised on Bowel rest: push fluids, bland high fiber diet. Continue immodium if needed. Vulvovaginitis 06/20/2022 Assessment & Plan (06/21/2022 7:17 PM TURPENTINE DISTILLER): S/p cefdinir course for UTI. Denies discharge or genital lesions. exam deferred per pt request. Rxd Diflucan as directed. Use mild non-fragrant soaps/lotions. Recurrent UTI 06/08/2022 Assessment & Plan (06/08/2022 2:35 PM TURPENTINE DISTILLER): Currently on Abx for treatment. Patient to [...] Will refer Pelvic PT eval and treatment. Hypertension, essential 12/23/2021 Assessment & Plan (10/25/2024 9:03 AM CDT): - restart home carvedilol, continue to hold lisinopril, nifedipine Assessment & Plan (10/24/2024 1:44 PM CDT): - restart home carvedilol, continue to hold lisinopril, nifedipine Assessment & Plan (10/23/2024 8:12 AM CDT): - hold home carvedilol, lisinopril, nifedipine iso of normotension Assessment & Plan (10/22/2024 5:28 PM CDT): - hold home carvedilol, lisinopril, nifedipine iso of normotension Assessment & Plan (10/21/2024 7:27 PM CDT): - hold home carvedilol, lisinopril, nifedipine iso of hypotension Assessment & Plan (06/21/2022 7:12 PM TURPENTINE DISTILLER): BP stable in office today on current therapy. Continue current regimen and low salt diet. Stay hydrated. Assessment & Plan (06/08/2022 2:36 PM TURPENTINE DISTILLER): Chronic and mildly elevated. Goal < 130/80. [...] medication. Atrial fibrillation 12/23/2021 Assessment & Plan (10/25/2024 9:03 AM CDT): propafenone and anticoagulation with xarelto. Follows with Dr. George. - telemetry - continue propafenone - continue xarelto Assessment & Plan (10/24/2024 1:44 PM CDT): propafenone and anticoagulation with xarelto. Follows with Dr. George. - telemetry - continue propafenone - continue xarelto, can hold if hgb drops Assessment & Plan (10/23/2024 3:54 PM CDT): propafenone and anticoagulation with xarelto. Follows with Dr. George. - telemetry - continue propafenone - continue xarelto, can hold if hgb drops Assessment & Plan (10/22/2024 5:28 PM CDT): propafenone and anticoagulation with xarelto. Follows with Dr. George. - telemetry, EKG - continue propafenone - continue xarelto Assessment & Plan (10/21/2024 7:27 PM CDT): propafenone and anticoagulation with xarelto. Follows with Dr. George. - telemetry, EKG - continue propafenone; hold xarelto as elsewhere Assessment & Plan (06/08/2022 2:35 PM TURPENTINE DISTILLER): Chronic and stable. 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 with tourist guide Assessment & Plan (12/23/2021 12:10 PM CDT): [...] materials from doctor or pharmacy Sometimes 11/04/2024 [facility] Utilities Answer Date Recorded In the past 12 months has [employer], oil, or water [employer] threatened to shut off services in your [...] 10/22/2024 How often do you attend chur or alevism services? Never 10/22/2024 Do you belong to any clubs o r organizations such as amish groups, unions, fraternal or athletic groups, or [...] place to sleep or slept in a long term (including now)? No 02/27/2023 Housing Stability Vital Sign Answer Devan e Recorded In the last 12 months, was t here a time when you were not able to pay the mortgage or rent on time? No 10/22/2024 In the past 12 months, how m any times have you moved where you were living? 0 10/22/2024 At any time in the past 12 m [address] [place], were you homeless or living in a long term (including now)? No 10/22/2024 Personal Safety Answer Date Recorded Have you ever been in or are you currently in a harmful physical or emotional relationship or is someone making you feel afraid or unsafe? Denies 10/21/2024 Comments No Sex and Gender Information Value Date Recorded Sex Assigned at Not on file Legal Sex Female 6:30 PM TURPENTINE DISTILLER Gender Identity Not on file Sexual Orientation Not on file Last Filed Vital Signs Vital Sign Reading Time Taken Comments Blood Pressure 114/69 11/12/2024 9:02 AM CDT Pulse 80 11/11/2024 10:37 AM CDT Temperature 36.7 C (98.1 F) 11/11/2024 10:37 AM CDT Respiratory Rate 16 11/11/2024 10:37 AM CDT Oxygen Saturation 97% 11/11/2024 10:37 AM CDT Inhaled Oxygen Concentration - - Weight 75.8 kg (167 lb 3.2 oz) 11/12/2024 9:02 A M CDT Height 154.9 cm (5' 1) 11/12/2024 9:02 AM CDT Body Mass Index 31.59 11/12/2024 9:02 AM CDT Plan of Treatment Not on file Medical Devices Implanted Type Area Acid Etch Operator Device Identifier Shelf Expiration Date Model / Serial / Lot Conmed Chris Viabil 10mm X 6cm Shortwire [id number] - [id number] - [id number] Implanted:Qty: 1 on 09/06/2024 by David Brewer MD at [facility] Stent N/A: Bile Duct Conmed Chris 06/19/2027 [id number] / [id number] / [employer] Low Porfile Power Port 8fr 1.6mm 1 Lumen [id number] - [id number] Implanted:Qty: 1 on 10/10/2024 at [facility] Ang[employer] 05/07/2029 [id number] / / [id number] Procedures Procedure Name Priority Date/Time Associated Diagnosis Comments URINE CULTURE Routine 11/12/2024 1:12 PM CDT Dysuria EGFR STAT 11/11/2024 9:30 AM CDT Pancreatic adenocarcinoma (HCC) DIFFERENTIAL AUTO Routine 11/11/2024 9:30 AM CDT Pancreatic adenocarcinoma (HCC) CBC WITH AUTO DIFFERENTIAL Routine 11/11 9:30 AM CDT Pancreatic adenocarcinoma (HCC) COMPREHENSIVE METABOLIC PANEL STAT 9:30 AM CDT Pancreatic adenocarcinoma (HCC) TRANSTHORACIC ECHO (TTE) COMPLETE W DOPPLER/CF WO CONTRAST Routine 11/05/2024 2:12 PM CDT Pancreatic adenocarcinoma (HCC) Bilateral lower extremity edema EGFR STAT 10/28/2024 9:38 AM CDT Pancreatic adenocarcinoma (HCC) DIFFERENTIAL AUTO Routine 10/28/2024 9:38 AM CDT Pancreatic adenocarcinoma (HCC) CBC WITH AUTO DIFFERENTIAL Routine 10/28 9:38 AM CDT Pancreatic adenocarcinoma (HCC) COMPREHENSIVE METABOLIC PANEL STAT 9:38 AM CDT Pancreatic adenocarcinoma (HCC) POCT GLUCOSE DEVICE Routine 10/25/2024 11:40 AM CDT US TRANSVAGINAL IP Routine 10/25/2024 10:30 AM CDT POCT GLUCOSE DEVICE Routine 10/25/2024 7:43 AM CDT EGFR Routine 10/25/2024 1:45 AM CDT DIFFERENTIAL AUTO Routine 10/25/2024 1:45 AM CDT PHOSPHORUS Routine 10/25/2024 1:45 AM CDT COMPREHENSIVE METABOLIC PANEL Routine 1:45 AM CDT CBC WITH AUTO DIFFERENTIAL Routine 10/25 1:45 AM CDT POCT GLUCOSE DEVICE Routine 10/25/2024 1:43 AM CDT POCT GLUCOSE DEVICE Routine 10/24/2024 8:55 PM CDT POCT GLUCOSE DEVICE Routine 10/24/2024 6:11 PM CDT DIAGNOSTIC MAMMOGRAM BILATER AL W AYAD IP Routine 10/24/2024 4:05 PM CDT Cellulitis of left breast Abnormal breast finding US BREAST LEFT COMPLETE IP Routine 10/25/19 3:37 PM CDT POCT GLUCOSE DEVICE Routine 10/24/2024 1:03 PM CDT POCT GLUCOSE DEVICE Routine 10/24/2024 8:49 AM CDT POCT GLUCOSE DEVICE Routine 10/24/2024 2:00 AM CDT EGFR Routine 10/24/2024 1:50 AM CDT DIFFERENTIAL AUTO Routine 10/24/2024 1:50 AM CDT CALCIUM, IONIZED Routine 10/24/2024 1:50 AM CDT PHOSPHORUS Routine 10/24/2024 1:50 AM CDT COMPREHENSIVE METABOLIC PANEL Routine 1:50 AM CDT CBC WITH AUTO DIFFERENTIAL Routine 10/24 1:50 AM CDT LACTATE DEHYDROGENASE Routine 10/24/2024 1:50 AM CDT URIC ACID Routine 10/24/2024 1:50 AM CDT TYPE AND SCREEN Timed 10/24/2024 1:50 AM CDT VANCOMYCIN LEVEL TROUGH Timed 10/24/19 11:26 PM CDT POCT GLUCOSE DEVICE Routine 10/23/2024 8:27 PM CDT POCT GLUCOSE DEVICE Routine 10/23/2024 5:50 PM CDT FL MODIFIED BARIUM SWALLOW W VIDEO IP Routine 10/23/2024 3:00 PM CDT CODING COMPLIANCE MANAGER EVALUATE AND TREAT VIDEOFLUOROSCOPIC SWALLOW STUDY Routine 10/23/2024 2:38 PM CDT POCT GLUCOSE DEVICE Routine 10/23/2024 11:58 AM CDT POCT GLUCOSE DEVICE Routine 10/23/2024 7:26 AM CDT EGFR Routine 10/23/2024 12:28 AM CDT DIFFERENTIAL AUTO Routine 10/23/2024 12:28 AM CDT PHOSPHORUS Routine 10/23/2024 12:28 AM CDT COMPREHENSIVE METABOLIC PANEL Routine 12:28 AM CDT CBC WITH AUTO DIFFERENTIAL Routine 10/23 12:28 AM CDT POCT GLUCOSE DEVICE Routine 10/22/2024 8:01 PM CDT POCT GLUCOSE DEVICE Routine 10/22/2024 5:14 PM CDT US VEIN DUPLEX UPPER EXTREMI TY LEFT LIMITED IP Routine 10/22/2024 4:42 PM CDT POCT GLUCOSE DEVICE Routine 10/22/2024 12:21 PM CDT POCT GLUCOSE DEVICE Routine 10/22/2024 7:14 AM CDT STOOL CULTURE Routine 10/22/2024 6:46 AM CDT EGFR Routine 10/22/2024 2:51 AM CDT PROTIME-INR Routine 10/22/2024 2:51 AM CDT APTT Routine 10/22/2024 2:51 AM CDT LACTATE DEHYDROGENASE Routine 10/22/2024 2:51 AM CDT URIC ACID Routine 10/22/2024 2:51 AM CDT PHOSPHORUS Routine 10/22/2024 2:51 AM CDT COMPREHENSIVE METABOLIC PANEL Routine 2:51 AM CDT TYPE AND SCREEN Timed 10/22/2024 2:50 AM CDT POCT GLUCOSE DEVICE Routine 10/22/2024 2:48 AM CDT POCT GLUCOSE DEVICE Routine 10/22/2024 2:47 AM CDT DIFFERENTIAL AUTO Routine 10/22/2024 2:30 AM CDT CBC WITH AUTO DIFFERENTIAL Routine 10/22 2:30 AM CDT EGFR STAT 10/21/2024 9:15 PM CDT DIFFERENTIAL AUTO STAT 10/21/2024 9:15 PM CDT PHOSPHORUS STAT 10/21/2024 9:15 PM CDT MAGNESIUM STAT 10/21/2024 9:15 PM CDT COMPREHENSIVE METABOLIC PANEL STAT 9:15 PM CDT CBC WITH AUTO DIFFERENTIAL STAT 10/21 9:15 PM CDT INFECTION PREVENTION MRSA ON LY (STAPHYLOCOCCUS AUREUS) CULTURE Routine 10/21/2024 9:15 PM CDT POCT GLUCOSE DEVICE Routine 10/21/2024 8:35 PM CDT ECG 12-LEAD STAT 10/21/2024 8:17 PM CDT US VEIN DUPLEX LOWER EXTREMI TY BILATERAL COMPLETE ED Urgent/IP Urgent 10/21/2024 4:02 PM CDT TRANSFUSE RED BLOOD CELLS Timed 2024 1:07 PM CDT B CHECK SAMPLE STAT 10/21/2024 11:17 AM CDT TYPE AND SCREEN Timed 10/21/2024 9:36 AM CDT PREPARE RBC Timed 10/21/2024 9:27 AM CDT EGFR Timed 10/21/2024 6:50 AM CDT DIFFERENTIAL AUTO Timed 10/21/2024 6:50 AM CDT COMPREHENSIVE METABOLIC PANEL Timed 6:50 AM CDT CBC WITH AUTO DIFFERENTIAL Timed 10/21 6:50 AM CDT PROTIME-INR Routine 10/21/2024 12:16 AM CDT URINALYSIS AND REFLEX TO MICROSCOPIC AND CULTURE Routine 10/21/2024 12:16 AM CDT XR CHEST PA LATERAL 2 VIEWS ED Urgent/IP Urgent 10/21/2024 12:07 AM CDT POC BLOOD GAS AND CHEMISTRIE S, ARTERIAL Routine 10/20/2024 11:05 PM CDT EGFR Routine 10/20/2024 10:38 PM CDT DIFFERENTIAL AUTO STAT 10/20/2024 10:38 PM CDT COMPREHENSIVE METABOLIC PANEL Routine 10:38 PM CDT CBC WITH AUTO DIFFERENTIAL STAT 10/20 10:38 PM CDT BLOOD CULTURE Routine 10/20/2024 10:38 PM CDT BLOOD CULTURE Routine 10/20/2024 10:38 PM CDT RESPIRATORY PATHOGEN PANEL Routine 10/20 10:38 PM CDT EGFR Routine 10/17/2024 10:06 AM CDT Pancreatic [...] STAT 4:00 PM CDT Pancreatic adenocarcinoma (HCC) [id number] Routine 10/07/2024 3:52 PM CDT Pancreatic adenocarcinoma [...] unknown from Last 3 Months Results * Urine culture Urine, clean voided (11/12/2024 1:12 PM CDT) Report Final Report: No growth Urine, clean voided 11/12/2024 1:12 PM CDT 11/12/2024 1:25 PM CDT Narrative EN[facility] - 11/13/2024 3:55 PM CDT Testing performed by [facility] Microbiology Laboratory ([phone]) us Jackie Szymanski MD LAB MICROBIOLOGY - GEN ERAL ORDERABLES Final Result [facility] Department [place] [address] * eGFR (11/11/2024 9:30 AM CDT) eGFR 77 >=60 mL/min/1. 73 m2 Comment: Interpretive Data [...] was last reviewed 2021. Testing performed by: [facility], [address] [place] [address] Blood 11/11/2024 9:30 AM CDT 11/11/2024 10:00 AM CDT [facility] Cox MD LAB BLOOD ORDERABLES Gail garcia Result [facility] [address] [place] [address] * (ABNORMAL) Differential, auto (11/11/2024 9:30 AM CDT) Pathologist [facility] Neutrophil abs 3.94 1.50 - 6.50 K/cumm Comment:Testing performed by : [facility], [address], [address] [place] [address] Imm gran abs 0.03 0.00 - 0.10 K/cumm ENRIQUE TORRES Comment:Testing performed by : [facility], [address] [address], [address] [place] [address] Lymphocyte abs 1.28 0.80 - 3.30 K/cumm CERNER BJWCH Comment:Testing performed by : [facility], [facility], [address] [place] [address] Monocyte abs 0.92(H) 0.20 - 0.80 K/cumm CERNER BJWCH Comment:Testing performed by : [facility], [facility], [address] [place] [address] Eosinophil abs 0.07 0.00 - 0.50 K/cumm CERNER BJWCH Comment:Testing performed by : [facility], [facility] 2, [address], [place] [address] Basophil abs 0.06 0.00 - 0.10 K/cumm CERNER BJWCH Comment:Testing performed by : [facility], [facility] 2, [address], [place] [address] Neutrophil pct 62.5 % CERNER BJWCH Comment: Interpretive Data Percent cell count reference ranges are not reported, since discordance with absolute values may lead to misinterpretation of CBC data. Current Interpretive Data was last revised on 2017. Testing performed by: [facility], [facility] [address], [address] [place] [address] Imm gran pct 0.5 % CERNER BJWCH Comment: Interpretive Data Percent cell count reference ranges are not reported, since discordance with absolute values may lead to misinterpretation of CBC data. Current Interpretive Data was last revised on 2017. Testing performed by: [facility], [facility] 2, [address] [place] [address] Lymphocyte pct 20.3 % CERNER BJWCH Comment: Interpretive Data Percent cell count reference ranges are not reported, since discordance with absolute values may lead to misinterpretation of CBC data. Current Interpretive Data was last revised on 2017. Testing performed by: [facility], [facility] [address], [address], [place] [address] Monocyte pct 14.6 % CERNER BJWCH Comment: Interpretive Data Percent cell count reference ranges are not reported, since discordance with absolute values may lead to misinterpretation of CBC data. Current Interpretive Data was last revised on 2017. Testing performed by: [facility], [place] [facility] [address], [address] [place] [address] Eosinophil pct 1.1 % ENRIQUE TORRES Comment: Interpretive Data Percent cell count reference ranges are not reported, since discordance with absolute values may lead to misinterpretation of CBC data. Current Interpretive Data was last revised on 2017. Testing performed by: [facility] 2, [address] [place] [address] Basophil pct 1.0 % ENRIQUE TORRES Comment: Interpretive Data Percent cell count reference ranges are not reported, since discordance with absolute values may lead to misinterpretation of CBC data. Current Interpretive Data was last revised on 2017. Testing performed by: [facility] 2, [address] [place] [address] Blood 11/11/2024 9:30 AM CDT 11/11/2024 9:41 AM CDT [facility]Maurisio Cox MD LAB BLOOD ORDERABLES Gail l Result [facility] [address] [facility]. Department of Laboratories [place], [place] [id number] * (ABNORMAL) CBC with auto differential (11/11/2024 9:30 AM CDT) WBC 6.30 3.80 - 9.90 K/cumm Comment:Testing performed by : [facility], [place] [facility] 2, [address] [place] [address] Hgb 8.3(L) 11.9 - 15.5 g/dL ENRIQUE TORRES Comment:Testing performed by : [facility] 2, [address] [place] [address] Hct 26.1(L) 35.6 - 45.5 % ENRIQUE TORRES Comment:Testing performed by : [facility] 2, [address] [place] [address] Plt 290 150 - 400 K/cumm CERNER BJWCH Comment:Testing performed by : [facility], [place] [facility] 2, [address] [place] [address] MPV 9.8 9.1 - 12.3 fL CERNER BJWCH Comment:Testing performed by : [place] [address], [address] [place] [address] RBC 2.83(L) 3.90 - 5.20 M/cumm CERNER BJWCH Comment:Testing performed by : [facility], [facility], [address] [place] [address] MCV 92.2 81.3 - 96.4 fL CERNER BJWCH Comment:Testing performed by : [place] [address], [address] [place] [address] MCH 29.3 27.1 - 33.3 pg CERNER BJWCH Comment:Testing performed by : [facility], [facility], [address] [place] [address] MCHC 31.8(L) 32.3 - 35.7 g/dL CERNER BJWCH Comment:Testing performed by : [facility] 2, [address] [place] [address] RDW CV 16.1(H) 11.1 - 14.9 % CERNER BJWCH Comment:Testing performed by : [facility] 2, [address] [place] [address] RDW SD 54.2(H) 35.7 - 48.1 fL CERNER BJWCH Comment:Testing performed by : [place] [address], [address] [place] [address] ANC Prelim 3.94 1.50 - 6.50 K/cumm CERNER BJWCH Comment: Interpretive Data The rapid ANC is a preliminary automated count and may vary from the final ANC (Neut Abs) reported in the WBC differential that follows. Current interpretive data was last revised 2024. Testing performed by: [facility], [address], [address], [place], [place] [address] Blood 11/11/2024 9:30 AM CDT 11/11/2024 9:41 AM CDT Kalli Cox MD LAB BLOOD ORDERABLES Gail l Result [facility] [address] [place] [address] * (ABNORMAL) Comprehensive metabolic panel (11/11/2024 9:30 AM CDT) Sodium 137 135 - 145 mmol/L Comment:Testing performed by : [facility], [address] [place] [address] Potassium, pl 3.8 3.3 - 4.9 mmol/L ENRIQUE TORRES Comment:Testing performed by : [facility], [address] [place] [address] Chloride 99 97 - 110 mmol/L ENRIQUE TORRES Comment:Testing performed by : [facility], [address] [place] [address] CO2 29 22 - 32 mmol/L CERMARCELO TORRES Comment:Testing performed by : [facility], [address] [place] [address] Anion gap 9 2 - 15 mmol/L ENRIQUE TORRES Comment:Testing performed by : [facility], [address] [place] [address] BUN 12 6 - 25 mg/dL ENRIQUE BJWCH Comment:Testing performed by : [facility], [address] [place] [address] Creatinine 0.80 0.60 - 1.10 mg/dL CERMARCELO BJWCH Comment:Testing performed by : [facility], [address], [place] [address] Glucose 110 70 - 199 mg/dL CERMARCELO BJWCH Comment: [...] was last revised 2022. Testing performed by: [facility], [address], [place] [address] Calcium 9.0 8.5 - 10.3 mg/dL CERNER BJWCH Comment:Testing performed by : [facility], [address], [place] [address] Bilirubin, total 0.3 0.1 - 1.2 mg/dL CERNER BJWCH Comment:Testing performed by : [facility], [address], [place] [address] Protein, pl 6.0(L) 6.5 - 8.5 g/dL CERNER BJWCH Comment:Testing performed by : [facility], [address], [place] [address] Albumin 3.1(L) 3.5 - 5.0 g/dL CERNER BJWCH Comment:Testing performed by : [facility], [address], [place] [address] Alk phos 140(H) 40 - 130 Units/L CERNER BJWCH Comment:Testing performed by : [facility], [address], [place] [address] ALT 13 7 - 45 Units/L CERNER BJWCH Comment:Testing performed by : [facility], [address], [place] [address] AST 23 10 - 45 Units/L CERNER BJWCH Comment:Testing performed by : [facility], [address], [place] [address] Blood 11/11/2024 9:30 AM CDT 11/11/2024 10:00 AM CDT us Kalli Cox MD LAB BLOOD ORDERABLES Gail garcia Result ENRIQUE [facility] [address] [facility]. [place] [address] * TRANSTHORACIC ECHO (TTE) COMPLETE W DOPPLER/CF WO CONTRAST (11/05/2024 2:12 PM CDT) EF Mod BP 74 % CONS SCIMAGE Anatomical Region Laterality Modality Ultrasound 11/05/2024 1:18 PM CDT Narrative 11/06/2024 2:05 PM CDT [facility] [place] [address] [place] [address] Transthoracic Echocardiographic Report Patient Name: SUSANNAH CAMARGO A : 1950 (73y 10m) Gender: F Study Date: 11/05/2024 13:18:30 Ht(Inch): 61 Wt(Lb): 162.04 BSA: 1.78 Data Services Developer: SHANNA Location: [facility] Order Provider: KALLI COX Heart Rate: 68 BMI: 30.61 BP: 130 / 82 Ref Provider: KALLI COX PROCEDURES: Echocardiographic Report: Transthoracic complete echo, 2D, spectral and tissue Doppler, color flow Doppler, M-mode. Additional Procedures: Myocardial strain imaging was performed. INDICATIONS: C25.9 Malignant neoplasm of pancreas, unspecified and R60.0 Localized edema. CONCLUSIONS: 1. Normal left ventricular size based on volume index. Concentric LV remodeling. Normal left ventricular systolic function. The Ejection Fraction (Augustin's) is measured at 74 %. Cannot determine diastolic function or LA pressure. The average global longitudinal strain is normal. The LV global strain is: -25.1 %. No left ventricular thrombus visualized. 2. Right ventricular dilatation. Normal right ventricular systolic function. 3. Mitral annular calcification associated with mild mitral regurgitation. 4. Moderate aortic sclerosis without stenosis or regurgitation. 5. Mild tricuspid regurgitation. 6. No pericardial effusion. 7. Normal aortic root size when indexed to body surface area. 8. The estimated pulmonary artery systolic pressure is 41.6 mmHg. ATTESTATION: I have personally reviewed and interpreted this study without fellow or resident. - DISCLAIMER: The study images and the final report will be retained in the patient chart by the Echo Laboratory for the legally required time period. This chart constitutes the legal record of any testing performed. FINDINGS: Left Ventricle: Normal left ventricular size based on volume index. Concentric LV remodeling. Normal left ventricular systolic function. The Ejection Fraction (Augustin's) is measured at 74 %. Cannot determine diastolic function or LA pressure. The average global longitudinal strain is normal. The LV global strain is: -25.1 %. No left ventricular thrombus visualized. Right Ventricle: Right ventricular dilatation. Normal right ventricular systolic function. Left Atrium: Severely dilated left atrium. Right Atrium: The right atrium is normal in size. Mitral Valve: Moderate mitral annular calcification. Mild mitral valve regurgitation. No stenosis present. Aortic Valve: Trileaflet aortic valve. Moderately thickened aortic valve leaflets. Mildly calcified aortic valve leaflets. No aortic regurgitation. No aortic valve stenosis. The mean transaortic gradient is 9 mmHg. The aortic valve area by the continuity equation (using VTI) is 2.01 cm2. Aortic valve dimensionless index is 0.78. Tricuspid Valve: Normal tricuspid valve structure. Mild tricuspid regurgitation. No tricuspid valve stenosis. Pulmonic Valve: Normal pulmonic valve structure. No pulmonic regurgitation. No pulmonic valve stenosis present. Pericardium: Normal pericardium without pericardial effusion. Aorta: Normal aortic root size at sinuses of Valsalva. Normal aortic root size when indexed. IVC: The estimated RA pressure is 8 mmHg. PASP: The estimated pulmonary artery systolic pressure is 41.6 mmHg. Rhythm: Normal Sinus rhythm was seen during the study. MEASUREMENTS: 2D/MM Value Range Doppler Value Range LVIDd 2D 4.30 cm [ 3.80 - 5.20 ] AV Peak Prosper 2.0 m/s [ 1.0 - 1.7 ] LVIDs 2D 2.91 cm [ 2.20 - 3.50 ] AV Peak PG 16.00 mmHg IVSd 2D 1.08 cm [ 0.60 - 0.90 ] AV Mean PG 9 mmHg LVPWd 2D 1.14 cm [ 0.60 - 0.90 ] AV VTI 46.9 cm LV Thickness Ratio 0.9 LVOT Peak Prosper 1.6 m/s [ 0.7 - 1.1 ] LV FS 2D 32.28 % [ 27.00 - 45.00 ] LVOT Peak PG 10.24 mmHg LV Mass 2D 167.60 g LVOT Mean PG 6 mmHg LV Mass Index 2D 94.16 g/m2 LVOT VTI 36.6 cm RWT 0.53 LVOT Diam 1.81 cm EDV Mod BP 83.63 ml [ 46.00 - 106.00 ] DEVAN VTI 2.01 cm2 LV EDV Index 46.98 ml/m2 LVOT/AV VTI 0.78 - Dimensionless index (DVI) ESV Mod BP 21.45 ml [ 14.00 - 42.00 ] MV E Peak Prosper 1.1 m/s [ 0.6 - 1.3 ] EF Mod BP 74 % [ 54 - 74 ] MV A Peak Prosper 0.7 m/s [ 1.0 - 1.2 ] LV GLS -25.1 % [ -25.0 - -18.0 ] MV E/A 1.7 ratio [ 0.8 - 1.5 ] LA Length 4C 6.24 cm MV Decel Time 179.60 msec [ 104.00 - 258.00 ] LA Length 2C 6.46 cm Med E` Prosper 10.3 cm/sec [ 8.0 - 25.0 ] LA Volume BP 98.09 ml Lat E` Prosper 10.6 cm/sec [ 10.0 - 25.0 ] LA Volume Index 55.11 ml/m2 [ 16.00 - 34.00 ] Average E/E` 10.53 RV Base Dimen 2D 4.3 cm [ 2.5 - 4.2 ] RV S` 15.99 cm/sec TAPSE 2.30 cm [ 1.71 - 5.00 ] TR Peak Prosper 2.9 m/s [ 1.0 - 2.8 ] RA Volume 29.15 ml TR Peak PG 33.6 mmHg RA Volume Index 16.38 ml/m2 RA Pressure 8 mmHg AoR Diam 2D 2.98 cm [ 2.70 - 3.70 ] RVSP 41.60 mmHg Ao Root Index 1.67 cm/m2 [ 1.00 - 2.00 ] Electronically Signed By: Jose J Hernandez MD 11/06/2024 14:05:24 CDT Procedure Note Jose J Hernandez MD - 11/06/2024 [facility] [place] [address] Transthoracic Echocardiographic Report Patient Name: SUSANNAH CAMARGO A : 1950 (73y 10m) Gender: F Study Date: 11/05/2024 13:18:30 Ht(Inch): 61 Wt(Lb): 162.04 BSA: 1.78 Data Services Developer: SHANNA Location: [facility] Order Provider: KALLI COX Heart Rate: 68 BMI: 30.61 BP: 130 / 82 Ref Provider: KALLI COX PROCEDURES: Echocardiographic Report: Transthoracic complete echo, 2D, spectral andtissue Doppler, color flow Doppler, M-mode. Additional Procedures: Myocardial strain imaging was performed. INDICATIONS: C25.9 Malignant neoplasm of pancreas, unspecified and R60.0 Localizededema. CONCLUSIONS: 1. Normal left ventricular size based on volume index. Concentric LVremodeling. Normal left ventricular systolic function. The Ejection Fraction (Augustin's) ismeasured at 74 %. Cannot determine diastolic function or LA pressure. The average globallongitudinal strain is normal. The LV global strain is: -25.1 %. No left ventricularthrombus visualized. 2. Right ventricular dilatation. Normal right ventricular systolicfunction. 3. Mitral annular calcification associated with mild mitralregurgitation. 4. Moderate aortic sclerosis without stenosis or regurgitation. 5. Mild tricuspid regurgitation. 6. No pericardial effusion. 7. Normal aortic root size when indexed to body surface area. 8. The estimated pulmonary artery systolic pressure is 41.6 mmHg. ATTESTATION: I have personally reviewed and interpreted this study without fellow orresident. - DISCLAIMER: The study images and the final report will be retained in the patientchart by the Echo Laboratory for the legally required time period. This chart constitutesthe legal record of any testing performed. FINDINGS: Left Ventricle: Normal left ventricular size based on volume index.Concentric LV remodeling. Normal left ventricular systolic function. The EjectionFraction (Augustin's) is measured at 74 %. Cannot determine diastolic function or LA pressure.The average global longitudinal strain is normal. The LV global strain is: -25.1 %. Noleft ventricular thrombus visualized. Right Ventricle: Right ventricular dilatation. Normal right ventricularsystolic function. Left Atrium: Severely dilated left atrium. Right Atrium: The right atrium is normal in size. Mitral Valve: Moderate mitral annular calcification. Mild mitral valveregurgitation. No stenosis present. Aortic Valve: Trileaflet aortic valve. Moderately thickened aortic valveleaflets. Mildly calcified aortic valve leaflets. No aortic regurgitation. No aortic valvestenosis. The mean transaortic gradient is 9 mmHg. The aortic valve area by thecontinuity equation (using VTI) is 2.01 cm2. Aortic valve dimensionless index is 0.78. Tricuspid Valve: Normal tricuspid valve structure. Mild tricuspidregurgitation. No tricuspid valve stenosis. Pulmonic Valve: Normal pulmonic valve structure. No pulmonicregurgitation. No pulmonic valve stenosis present. Pericardium: Normal pericardium without pericardial effusion. Aorta: Normal aortic root size at sinuses of Valsalva. Normal aortic rootsize when indexed. IVC: The estimated RA pressure is 8 mmHg. PASP: The estimated pulmonary artery systolic pressure is 41.6 mmHg. Rhythm: Normal Sinus rhythm was seen during the study. MEASUREMENTS: 2D/MM Value Range DopplerValue Range LVIDd 2D 4.30 cm [ 3.80 - 5.20 ] AV Peak Vel2.0 m/s [ 1.0 - 1.7 ] LVIDs 2D 2.91 cm [ 2.20 - 3.50 ] AV Peak PG16.00 mmHg IVSd 2D 1.08 cm [ 0.60 - 0.90 ] AV Mean PG9 mmHg LVPWd 2D 1.14 cm [ 0.60 - 0.90 ] AV VTI46.9 cm LV Thickness Ratio 0.9 LVOT Peak Vel1.6 m/s [ 0.7 - 1.1 ] LV FS 2D 32.28 % [ 27.00 - 45.00 ] LVOT Peak PG10.24 mmHg LV Mass 2D 167.60 g LVOT Mean PG6 mmHg LV Mass Index 2D 94.16 g/m2 LVOT VTI36.6 cm RWT 0.53 LVOT Diam1.81 cm EDV Mod BP 83.63 ml [ 46.00 - 106.00 ] DEVAN VTI2.01 cm2 LV EDV Index 46.98 ml/m2 LVOT/AV VTI0.78 - Dimensionless index (DVI) ESV Mod BP 21.45 ml [ 14.00 - 42.00 ] MV E Peak Vel1.1 m/s [ 0.6 - 1.3 ] EF Mod BP 74 % [ 54 - 74 ] MV A Peak Vel0.7 m/s [ 1.0 - 1.2 ] LV GLS -25.1 % [ -25.0 - -18.0 ] MV E/A1.7 ratio [ 0.8 - 1.5 ] LA Length 4C 6.24 cm MV Decel Hwqm130.60 msec [ 104.00 - 258.00 ] LA Length 2C 6.46 cm Med E` Vel10.3 cm/sec [ 8.0 - 25.0 ] LA Volume BP 98.09 ml Lat E` Vel10.6 cm/sec [ 10.0 - 25.0 ] LA Volume Index 55.11 ml/m2 [ 16.00 - 34.00 ] Average E/E`10.53 RV Base Dimen 2D 4.3 cm [ 2.5 - 4.2 ] RV S`15.99 cm/sec TAPSE 2.30 cm [ 1.71 - 5.00 ] TR Peak Vel2.9 m/s [ 1.0 - 2.8 ] RA Volume 29.15 ml TR Peak PG33.6 mmHg RA Volume Index 16.38 ml/m2 RA Pressure8 mmHg AoR Diam 2D 2.98 cm [ 2.70 - 3.70 ] RVSP41.60 mmHg Ao Root Index 1.67 cm/m2 [ 1.00 - 2.00 ] Electronically Signed By: Jose J Hernandez MD 11/06/2024 14:05:24 CDT [facility] Cox MD CV ECHO PROCEDURES Final Result * eGFR (10/28/2024 9:38 AM CDT) eGFR 88 >=60 mL/min/1. 73 m2 Comment: Interpretive Data [...] was last reviewed 2021. Testing performed by: [facility], [address] [place] [address] Blood 10/28/2024 9:38 AM CDT 10/28/2024 10:02 AM CDT us Moh'D M Mili Cox MD LAB BLOOD ORDERABLES Gail garcia Result [facility] [address] [address]. Department of Laboratories [place], [place] [id number] * Differential, auto (10/28/2024 9:38 AM CDT) Neutrophil abs 1.73 1.50 - 6.50 K/cumm Comment:Testing performed by : [facility] 2, [address] [place] [address] Imm gran abs 0.02 0.00 - 0.10 K/cumm CERNER BJWCH Comment:Testing performed by : [facility] 2, [address] [place] [address] Lymphocyte abs 0.98 0.80 - 3.30 K/cumm CERNER BJWCH Comment:Testing performed by : [facility] 2, [address] [place] [address] Monocyte abs 0.56 0.20 - 0.80 K/cumm CERNER BJWCH Comment:Testing performed by : [facility] 2, [address] [place] [address] Eosinophil abs 0.04 0.00 - 0.50 K/cumm CERNER BJWCH Comment:Testing performed by : [facility] 2, [address] [place] [address] Basophil abs 0.01 0.00 - 0.10 K/cumm CERNER BJWCH Comment:Testing performed by : [facility] 2, [address] [place] [address] Neutrophil pct 51.8 % CERNER BJWCH Comment: Interpretive Data Percent cell count reference ranges are not reported, since discordance with absolute values may lead to misinterpretation of CBC data. Current Interpretive Data was last revised on 2017. Testing performed by: [facility] 2, [address] [place] [address] Imm gran pct 0.6 % CERNER BJWCH Comment: Interpretive Data Percent cell count reference ranges are not reported, since discordance with absolute values may lead to misinterpretation of CBC data. Current Interpretive Data was last revised on 2017. Testing performed by: [facility], [place] [facility] [address], [address] [place] [address] Lymphocyte pct 29.3 % CERNER [facility] Comment: Interpretive Data Percent cell count reference ranges are not reported, since discordance with absolute values may lead to misinterpretation of CBC data. Current Interpretive Data was last revised on 2017. Testing performed by: [facility], [place] [facility] [address], [address] [place] [address] Monocyte pct 16.8 % [facility]ER [facility] Comment: Interpretive Data Percent cell count reference ranges are not reported, since discordance with absolute values may lead to misinterpretation of CBC data. Current Interpretive Data was last revised on 2017. Testing performed by: [facility], [place] [facility] [address], [address] [place] [address] Eosinophil pct 1.2 % C[facility]ER [facility] Comment: Interpretive Data Percent cell count reference ranges are not reported, since discordance with absolute values may lead to misinterpretation of CBC data. Current Interpretive Data was last revised on 2017. Testing performed by: [facility], [place] [facility] [address], [address] [place] [address] Basophil pct 0.3 % [facility]ER [facility] Comment: Interpretive Data Percent cell count reference ranges are not reported, since discordance with absolute values may lead to misinterpretation of CBC data. Current Interpretive Data was last revised on 2017. Testing performed by: [facility], [place] [facility] [address], [address] [place] [address] Blood 10/28/2024 9:38 AM CDT 10/28/2024 9:40 AM CDT [facility] Kenny BROWN LAB BLOOD ORDERABLES Gail garcia Result [facility] [address] [facility]. [place] [address] * (ABNORMAL) CBC with auto differential (10/28/2024 9:38 AM CDT) WBC 3.34(L) 3.80 - 9.90 K/cumm Comment:Testing performed by : [place] [address] [place] [address] Hgb 8.2(L) 11.9 - 15.5 g/dL [facility] Comment:Testing performed by : [place] [address] [place] [address] Hct 26.3(L) 35.6 - 45.5 % [facility] Comment:Testing performed by : [place] [address] [place] [address] Plt 218 150 - 400 K/cumm [facility] Comment:Testing performed by : [place] [address] [place] [address] MPV 8.8(L) 9.1 - 12.3 fL [facility] Comment:Testing performed by : [place] [address] [place] [address] RBC 2.89(L) 3.90 - 5.20 M/cumm [facility] Comment:Testing performed by : [place] [address] [place] [address] MCV 91.0 81.3 - 96.4 fL ENRIQUE [facility] Comment:Testing performed by : [place] [address], [address] [place] [address] MCH 28.4 27.1 - 33.3 pg CERMARCELO [facility] Comment:Testing performed by : [place] [address] [place] [address] MCHC 31.2(L) 32.3 - 35.7 g/dL ENRIQUE TORRES Comment:Testing performed by : [facility], [place] [facility] [address], [address] [place] [address] RDW CV 14.1 11.1 - 14.9 % ENRIQUE TORRES Comment:Testing performed by : [facility], [place] [facility] [address], [address] [place] [address] RDW SD 47.1 35.7 - 48.1 fL ENRIQUE TORRES Comment:Testing performed by : [facility], [place] [facility] [address], [address] [place] [address] ANC Prelim 1.73 1.50 - 6.50 K/cumm ENRIQUE TORRES Comment: Interpretive Data The rapid ANC is a preliminary automated count and may vary from the final ANC (Neut Abs) reported in the WBC differential that follows. Current interpretive data was last revised 2024. Testing performed by: [facility], [place] [facility] [address], [address] [place] [address] Blood 10/28/2024 9:38 AM CDT 10/28/2024 9:40 AM CDT [facility] Cox MD LAB BLOOD ORDERABLES Gail l Result [facility] [address] [address]. Department of Laboratories [place], [place] [id number] * (ABNORMAL) Comprehensive metabolic panel (10/28/2024 9:38 AM CDT) Sodium 137 135 - 145 mmol/L Comment:Testing performed by : [facility], [address] [place] [address] Potassium, pl 3.6 3.3 - 4.9 mmol/L ENRIQUE TORRES Comment:Testing performed by : [facility], [address] [place] [address] Chloride 104 97 - 110 mmol/L ENRIQUE TORRES Comment:Testing performed by : [facility], [address], [place] [address] CO2 28 22 - 32 mmol/L CERNER [facility] Comment:Testing performed by : [facility], [address], [place] [address] Anion gap 5 2 - 15 mmol/L [facility] Comment:Testing performed by : [facility], [address], [place] [address] BUN 9 6 - 25 mg/dL [facility] Comment:Testing performed by : [facility], [address], [place] [address] Creatinine 0.72 0.60 - 1.10 mg/dL C[facility] Comment:Testing performed by : [facility], [address], [place] [address] Glucose 87 70 - 199 mg/dL CERNER [facility] Comment: [...] was last revised 2022. Testing performed by: [facility], [address], [place] [address] Calcium 8.9 8.5 - 10.3 mg/dL C[facility]ER [facility] Comment:Testing performed by : [facility], [address], [place] [address] Bilirubin, total 0.4 0.1 - 1.2 mg/dL C[facility]ER [facility] Comment:Testing performed by : [facility], [address], [place] [address] Protein, pl 5.4(L) 6.5 - 8.5 g/dL C[facility]ER [facility] Comment:Testing performed by : [facility], [address], [place] [address] Albumin 3.1(L) 3.5 - 5.0 g/dL C[facility]ER [facility] Comment:Testing performed by : [facility], [address], [place] [address] Alk phos 189(H) 40 - 130 Units/L C[facility]ER [facility] Comment:Testing performed by : [facility], [address], [place] [address] ALT 12 7 - 45 Units/L C[facility]ER [facility] Comment:Testing performed by : [facility], [address], [place] [address] AST 20 10 - 45 Units/L CERNER [facility] Comment:Testing performed by : [facility], [address], [place] [address] Blood 10/28/2024 9:38 AM CDT 10/28/2024 10:02 AM CDT Kalli Cox MD LAB BLOOD ORDERABLES Gail l Result [facility] [address] [place] [address] * POCT glucose (10/25/2024 11:40 AM CDT) Glucose, POC 80 70 - 199 mg/dL Blood 10/25/2024 11:4 0 AM CDT 10/25/2024 11:40 AM CDT Tana Coronado MD LAB POCT ORDERABLES - DEVICE Final Result [facility] [place] [address] * US Transvaginal (10/25/2024 10:30 AM CDT) Anatomical Region Laterality Modality Pelvis N/A Ultrasound 10/25/2024 10:2 5 AM CDT Impressions 10/25/2024 12:17 PM CDT 1. No sonographic explanation for abnormal uterine bleeding. No uterine lesion or endometrial thickening. 2. Unchanged moderate volume pelvic free fluid. Dictated by: Eric Garza M.D. The radiology attending physician has personally reviewed this study, and had reviewed and/or edited this written report and agrees with it. Electronically signed by: Dar Oconnell M.D. Narrative 10/25/2024 12:17 PM CDT EXAMINATION: TRANSVAGINAL PELVIC SONOGRAM HISTORY: 73-year-old female with recently diagnosed pancreatic cancer presenting with vaginal spotting in the setting of known pelvic prolapse. Remote history of right oophorectomy. COMPARISON: PET/CT 10/10/2024 FINDINGS: Uterus: The uterus is anteverted and has a length of 5.2 cm, AP dimension of 2.7 cm, and transverse dimension of 4.4 cm. The endometrium measures 2 mm in thickness. Approximately 2 mm of free fluid noted within the endometrial cavity. There are no uterine fibroids. Right ovary: Not seen, consistent with reported history of right oophorectomy. Left ovary: The left ovary measures 1.2 cm x 1.0 cm x 1.2 cm. Other: Moderate volume free fluid in the pelvis, similar to CT 09/13/2024. Procedure Note Dar Oconnell MD - 10/25/2024 EXAMINATION: TRANSVAGINAL PELVIC SONOGRAM HISTORY: 73-year-old female with recently diagnosed pancreatic cancer presenting with vaginal spotting in the setting of known pelvic prolapse. Remote history of right oophorectomy. COMPARISON: PET/CT 10/10/2024 FINDINGS: Uterus: The uterus is anteverted and has a length of 5.2 cm, AP dimension of 2.7 cm, and transverse dimension of 4.4 cm. The endometrium measures 2 mm in thickness. Approximately 2 mm of free fluid noted within the endometrial cavity. There are no uterine fibroids. Right ovary: Not seen, consistent with reported history of right oophorectomy. Left ovary: The left ovary measures 1.2 cm x 1.0 cm x 1.2 cm. Other: Moderate volume free fluid in the pelvis, similar to CT 09/13/2024. IMPRESSION: 1. No sonographic explanation for abnormal uterine bleeding. No uterine lesion or endometrial thickening. 2. Unchanged moderate volume pelvic free fluid. Dictated by: Eric Garza M.D. The radiology attending physician has personally reviewed this study, and had reviewed and/or edited this written report and agrees with it. Electronically signed by: Dar Oconnell M.D. us Tana Coronado MD IMG US PROCEDURES Fi nal Result * POCT glucose (10/25/2024 7:43 AM CDT) Glucose, POC 111 70 - 199 mg/dL Blood 10/25/2024 7:43 AM CDT 10/25/2024 7:43 AM CDT us Tana Coronado MD LAB POCT ORDERABLES - DEVICE Final Result [facility] [place] [address] * eGFR (10/25/2024 1:45 AM CDT) eGFR >90 >=60 mL/min/1. 73 [...] Current interpretive data was last reviewed 2021. Blood 10/25/2024 1:45 AM CDT 10/25/2024 3:54 AM CDT Jessi Sima Briggs MD LAB BLOOD ORDER SHANT Final Result [facility] [place] [address] * (ABNORMAL) Differential, auto (10/25/2024 1:45 AM CDT) Neutrophil abs 1.51 1.50 - 6.50 K/cumm Imm gran abs 0.01 0.00 - 0.10 K/cumm [facility] Lymphocyte abs 0.70(L) 0.80 - 3.30 K/cumm [facility] Monocyte abs 0.52 0.20 - 0.80 K/cumm [facility] Eosinophil abs 0.04 0.00 - 0.50 K/cumm [facility] Basophil abs 0.01 0.00 - 0.10 K/cumm [facility] Neutrophil pct 54.1 % [facility] Comment: Interpretive Data Percent cell count reference ranges are not reported, since discordance with absolute values may lead to misinterpretation of CBC data. Current Interpretive Data was last revised on 2017. Imm gran pct 0.4 % [facility] Comment: Interpretive Data Percent cell count reference ranges are not reported, since discordance with absolute values may lead to misinterpretation of CBC data. Current Interpretive Data was last revised on 2017. Lymphocyte pct 25.1 % [facility] Comment: Interpretive Data Percent cell count reference ranges are not reported, since discordance with absolute values may lead to misinterpretation of CBC data. Current Interpretive Data was last revised on 2017. Monocyte pct 18.6 % [facility] Comment: Interpretive Data Percent cell count reference ranges are not reported, since discordance with absolute values may lead to misinterpretation of CBC data. Current Interpretive Data was last revised on 2017. Eosinophil pct 1.4 % [facility] Comment: Interpretive Data Percent cell count reference ranges are not reported, since discordance with absolute values may lead to misinterpretation of CBC data. Current Interpretive Data was last revised on 2017. Basophil pct 0.4 % [facility] Comment: Interpretive Data Percent cell count reference ranges are not reported, since discordance with absolute values may lead to misinterpretation of CBC data. Current Interpretive Data was last revised on 2017. Blood 10/25/2024 1:45 AM CDT 10/25/2024 3:54 AM CDT [facility] Sima Briggs MD LAB BLOOD ORDER SHANT Final Result [facility] [place] [address] * (ABNORMAL) CBC with auto differential (10/25/2024 1:45 AM CDT) WBC 2.79(L) 3.80 - 9.90 K/cumm Hgb 7.5(L) 11.9 - 15.5 g/dL [facility] Hct 23.0(L) 35.6 - 45.5 % [facility] Plt 115(L) 150 - 400 K/cumm [facility] MPV 9.6 9.1 - 12.3 fL [facility] RBC 2.56(L) 3.90 - 5.20 M/cumm [facility] MCV 89.8 81.3 - 96.4 fL [facility] MCH 29.3 27.1 - 33.3 pg [facility] MCHC 32.6 32.3 - 35.7 g/dL [facility] RDW CV 14.5 11.1 - 14.9 % [facility] RDW SD 47.8 35.7 - 48.1 fL [facility] NRBC abs 0.00 0.00 - 0.01 K/cumm [facility] Blood 10/25/2024 1:45 AM CDT 10/25/2024 3:54 AM CDT Jessi Briggs MD LAB BLOOD ORDER SHANT Final Result [facility] [place] [address] * Phosphorus (10/25/2024 1:45 AM CDT) Pathologist [facility] Phosphorus, pl 2.5 2.3 - 4.5 mg/dL Blood 10/25/2024 1:45 AM CDT 10/25/2024 3:54 AM CDT Jessi Briggs MD LAB BLOOD ORDER SHANT Final Result Performing Organization Address [facility] Co de Phone Number [facility] [place] [address] * (ABNORMAL) Comprehensive metabolic panel (10/25/2024 1:45 AM CDT) [facility] Sodium 142 135 - 145 mmol/L Potassium, pl 3.3 3.3 - 4.9 mmol/L [facility] Chloride 106 97 - 110 mmol/L [facility] CO2 29 22 - 32 mmol/L [facility] Anion gap 7 2 - 15 mmol/L [facility] BUN 5(L) 6 - 25 mg/dL [facility] Creatinine 0.69 0.60 - 1.10 mg/dL [facility] Glucose 90 70 - 199 mg/dL [facility] Comment: Interpretive Data Fasting glucose >/= 126 [...] Current interpretive data was last revised 2022. Calcium 8.3(L) 8.5 - 10.3 mg/dL [facility] Bilirubin, total 0.3 0.1 - 1.2 mg/dL [facility] Protein, pl 4.9(L) 6.5 - 8.5 g/dL [facility] Albumin 2.7(L) 3.5 - 5.0 g/dL [facility] Alk phos 148(H) 40 - 130 Units/L [facility] ALT 11 7 - 45 Units/L [facility] AST 16 10 - 45 Units/L [facility] Blood 10/25/2024 1:45 AM CDT 10/25/2024 3:54 AM CDT Jessi Briggs MD LAB BLOOD ORDER SHANT Final Result Performing Organization Address [facility] Co de Phone Number [facility] [place] [address] * POCT glucose (10/25/2024 1:43 AM CDT) Glucose, POC 104 70 - 199 mg/dL Blood 10/25/2024 1:43 AM CDT 10/25/2024 1:43 AM CDT Tana Coronado MD LAB POCT ORDERABLES - DEVICE Final Result Performing Organization Address City/[facility]/ZIP Co de Phone Number [facility] [place] [address] * POCT glucose (10/24/2024 8:55 PM CDT) Glucose, POC 105 70 - 199 mg/dL Blood 10/24/2024 8:55 PM CDT 10/24/2024 8:55 PM CDT Tana Coronado MD LAB POCT ORDERABLES - DEVICE Final Result Performing Organization Address [facility] Co de Phone Number [facility] [place] [address] * POCT glucose (10/24/2024 6:11 PM CDT) Glucose, POC 80 70 - 199 mg/dL Blood 10/24/2024 6:11 PM CDT 10/24/2024 6:11 PM CDT Tana Coronado MD LAB POCT ORDERABLES - DEVICE Final Result [facility] [place] [address] * Diagnostic Mammogram Bilateral W Ayad (10/24/2024 4:05 PM CDT) Anatomical Region Laterality Modality Breast Bilateral Mammography 10/24/2024 4:48 PM CDT Impressions 10/24/2024 5:17 PM CDT Left breast and axilla: 1. Superficial soft tissue swelling on ultrasound corresponding to skin and trabecular thickening on mammogram, favored to represent mastitis in the appropriate clinical setting. No evidence of drainable fluid collection. Recommend follow-up LEFT diagnostic mammogram in 3 months after appropriate treatment. 2. Left axillary lymphadenopathy, likely reactive. Right breast subareolar region and axilla: 1. No suspicious mass or fluid collection within the visualized subareolar region. 2. Benign appearing right axillary lymph nodes. OVERALL FINAL ASSESSMENT: BI-RADS Category 3: Probably Benign. RECOMMENDATION: Recommend follow-up LEFT diagnostic mammogram and LEFT axillary ultrasound in 3 months after appropriate treatment for presumed mastitis in the LEFT breast. At that time, reevaluation of findings in the LEFT breast with mammography and the LEFT axillary lymph nodes with ultrasound should be performed. Dr. Andrade discussed the above findings and recommendations with the patient, who expressed her understanding of the management plan. Dictated by: Macy Benítez MD The radiology attending physician has personally reviewed this study, and had reviewed and/or edited this written report and agrees with it. Electronically signed by: Peg Andrade M.D. Narrative 10/24/2024 5:17 PM CDT EXAMINATION: BILATERAL COMPLETE BREAST ULTRASOUND HISTORY: 73 year old female with pancreatic cancer on chemotherapy with new left breast erythema and swelling for one week. This has reportedly improved after treatment with antibiotics. COMPARISON: PET/CT 10/10/2024. Prior mammogram from 09/28/2006. TECHNIQUE: Complete ultrasound evaluation of the LEFT breast, limited ultrasound evaluation of the subareolar region of the right breast and bilateral axilla was performed by a trained wallpaper cleaner and Dr. Andrade. Subsequently, full field digital mammographic views of BOTH breasts were performed including computer aided CAD and bilateral digital breast tomosynthesis. BREAST PARENCHYMAL COMPOSITION: There are scattered areas of fibroglandular density. ULTRASOUND FINDINGS: All four quadrants of the left breast, subareolar region of the right breast, and bilateral axilla were imaged. There is no suspicious mass or fluid collection in the imaged bilateral breasts. Skin thickening and tissue edema are noted in the LEFT breast. There are multiple abnormally enlarged lymph nodes in the left axilla with cortical thickening, likely reactive. The right axillary lymph nodes are normal in appearance. MAMMOGRAPHIC FINDINGS: Right breast: No suspicious abnormality in the right breast. Questioned masslike thickening in the right breast on comparison PET CT is favored to represent the nipple-areola complex. Left breast: Marked skin and trabecular parenchymal thickening corresponding to findings on ultrasound. Questioned area of architectural distortion subareolar region which efface on spot images probably represent overlapping breast parenchyma with trabecular edema. However given marked trabecular thickening, which limits sensitivity of mammography, close interval imaging follow-up is recommended. Tana Coronado MD IMG MAMMO PROCEDURES Final Result * US Breast Left Complete (10/24/2024 3:37 PM CDT) Anatomical Region Laterality Modality Breast Left Ultrasound 10/24/2024 4:48 PM CDT Impressions 10/24/2024 5:17 PM CDT Left breast and axilla: 1. Superficial soft tissue swelling on ultrasound corresponding to skin and trabecular thickening on mammogram, favored to represent mastitis in the appropriate clinical setting. No evidence of drainable fluid collection. Recommend follow-up LEFT diagnostic mammogram in 3 months after appropriate treatment. 2. Left axillary lymphadenopathy, likely reactive. Right breast subareolar region and axilla: 1. No suspicious mass or fluid collection within the visualized subareolar region. 2. Benign appearing right axillary lymph nodes. OVERALL FINAL ASSESSMENT: BI-RADS Category 3: Probably Benign. RECOMMENDATION: Recommend follow-up LEFT diagnostic mammogram and LEFT axillary ultrasound in 3 months after appropriate treatment for presumed mastitis in the LEFT breast. At that time, reevaluation of findings in the LEFT breast with mammography and the LEFT axillary lymph nodes with ultrasound should be performed. Dr. Andrade discussed the above findings and recommendations with the patient, who expressed her understanding of the management plan. Dictated by: Macy Benítez MD The radiology attending physician has personally reviewed this study, and had reviewed and/or edited this written report and agrees with it. Electronically signed by: Peg Andrade M.D. Narrative 10/24/2024 5:17 PM CDT EXAMINATION: BILATERAL COMPLETE BREAST ULTRASOUND HISTORY: 73 year old female with pancreatic cancer on chemotherapy with new left breast erythema and swelling for one week. This has reportedly improved after treatment with antibiotics. COMPARISON: PET/CT 10/10/2024. Prior mammogram from 09/28/2006. TECHNIQUE: Complete ultrasound evaluation of the LEFT breast, limited ultrasound evaluation of the subareolar region of the right breast and bilateral axilla was performed by a trained wallpaper cleaner and Dr. Andrade. Subsequently, full field digital mammographic views of BOTH breasts were performed including computer aided CAD and bilateral digital breast tomosynthesis. BREAST PARENCHYMAL COMPOSITION: There are scattered areas of fibroglandular density. ULTRASOUND FINDINGS: All four quadrants of the left breast, subareolar region of the right breast, and bilateral axilla were imaged. There is no suspicious mass or fluid collection in the imaged bilateral breasts. Skin thickening and tissue edema are noted in the LEFT breast. There are multiple abnormally enlarged lymph nodes in the left axilla with cortical thickening, likely reactive. The right axillary lymph nodes are normal in appearance. MAMMOGRAPHIC FINDINGS: Right breast: No suspicious abnormality in the right breast. Questioned masslike thickening in the right breast on comparison PET CT is favored to represent the nipple-areola complex. Left breast: Marked skin and trabecular parenchymal thickening corresponding to findings on ultrasound. Questioned area of architectural distortion subareolar region which efface on spot images probably represent overlapping breast parenchyma with trabecular edema. However given marked trabecular thickening, which limits sensitivity of mammography, close interval imaging follow-up is recommended. Result Michelle Coronado MD IMG MAMMO PROCEDURES Final Result * POCT glucose (10/24/2024 1:03 PM CDT) Glucose, POC 92 70 - 199 mg/dL Blood 10/24/2024 1:03 PM CDT 10/24/2024 1:03 PM CDT us Tana Coronado MD LAB POCT ORDERABLES - DEVICE Final Result Performing Organization Address [facility] Co de Phone Number [facility] [place] [address] * POCT glucose (10/24/2024 8:49 AM CDT) Glucose, POC 98 70 - 199 mg/dL Blood 10/24/2024 8:49 AM CDT 10/24/2024 8:49 AM CDT us Tana Coronado MD LAB POCT ORDERABLES - DEVICE Final Result Performing Organization Address [facility] Co de Phone Number [facility] [place] [address] * POCT glucose (10/24/2024 2:00 AM CDT) Glucose, POC 88 70 - 199 mg/dL Blood 10/24/2024 2:00 AM CDT 10/24/2024 2:00 AM CDT us Tana Coronado MD LAB POCT ORDERABLES - DEVICE Final Result Performing Organization Address City/[facility] Co de Phone Number [facility] [place] [address] * eGFR (10/24/2024 1:50 AM CDT) Pathologist [facility] eGFR >90 >=60 mL/min/1. 73 m2 Comment: [...] Current interpretive data was last reviewed 2021. Blood 10/24/2024 1:50 AM CDT 10/24/2024 2:13 AM CDT Jessi Briggs MD LAB BLOOD ORDER SHANT Final Result [facility] [place] [address] * Differential, auto (10/24/2024 1:50 AM CDT) Pathologist [facility] Neutrophil abs 2.44 1.50 - 6.50 K/cumm Imm gran abs 0.02 0.00 - 0.10 K/cumm [facility] Lymphocyte abs 1.24 0.80 - 3.30 K/cumm [facility] Monocyte abs 0.74 0.20 - 0.80 K/cumm [facility] Eosinophil abs 0.08 0.00 - 0.50 K/cumm [facility] Basophil abs 0.01 0.00 - 0.10 K/cumm [facility] Neutrophil pct 53.9 % [facility] Comment: Interpretive Data Percent cell count reference ranges are not reported, since discordance with absolute values may lead to misinterpretation of CBC data. Current Interpretive Data was last revised on 2017. Imm gran pct 0.4 % [facility] Comment: Interpretive Data Percent cell count reference ranges are not reported, since discordance with absolute values may lead to misinterpretation of CBC data. Current Interpretive Data was last revised on 2017. Lymphocyte pct 27.4 % [facility] Comment: Interpretive Data Percent cell count reference ranges are not reported, since discordance with absolute values may lead to misinterpretation of CBC data. Current Interpretive Data was last revised on 2017. Monocyte pct 16.3 % [facility] Comment: Interpretive Data Percent cell count reference ranges are not reported, since discordance with absolute values may lead to misinterpretation of CBC data. Current Interpretive Data was last revised on 2017. Eosinophil pct 1.8 % [facility] Comment: Interpretive Data Percent cell count reference ranges are not reported, since discordance with absolute values may lead to misinterpretation of CBC data. Current Interpretive Data was last revised on 2017. Basophil pct 0.2 % [facility] Comment: Interpretive Data Percent cell count reference ranges are not reported, since discordance with absolute values may lead to misinterpretation of CBC data. Current Interpretive Data was last revised on 2017. Blood 10/24/2024 1:50 AM CDT 10/24/2024 2:13 AM CDT Jessi Briggs MD LAB BLOOD ORDER SHANT Final Result [facility] [place] [address] * Calcium, ionized (10/24/2024 1:50 AM CDT) Calcium, Ionized 4.85 4.50 - 5.10 mg/dL Blood 10/24/2024 1:50 AM CDT 10/24/2024 2:10 AM CDT us Tana Coronado MD LAB BLOOD ORDERABLES Final Result [facility] [place] [address] * (ABNORMAL) CBC with auto differential (10/24/2024 1:50 AM CDT) WBC 4.53 3.80 - 9.90 K/cumm Hgb 8.8(L) 11.9 - 15.5 g/dL [facility] Hct 26.9(L) 35.6 - 45.5 % [facility] Plt 160 150 - 400 K/cumm [facility] MPV 9.8 9.1 - 12.3 fL [facility] RBC 2.97(L) 3.90 - 5.20 M/cumm [facility] MCV 90.6 81.3 - 96.4 fL [facility] MCH 29.6 27.1 - 33.3 pg [facility] MCHC 32.7 32.3 - 35.7 g/dL [facility] RDW CV 14.5 11.1 - 14.9 % [facility] RDW SD 48.5(H) 35.7 - 48.1 fL [facility] NRBC abs 0.00 0.00 - 0.01 K/cumm [facility] Blood 10/24/2024 1:50 AM CDT 10/24/2024 2:13 AM CDT us Jessi Briggs MD LAB BLOOD ORDER SHANT Final Result [facility] [place] [address] * Type and screen (10/24/2024 1:50 AM CDT) ABO Rh O Negative Brigitte, indirect Negative [facility] Blood 10/24/2024 1:50 AM CDT 10/24/2024 2:25 AM CDT [facility] 10/24/2024 3:52 AM CDT Has the patient had Daratumumab or Isatuximab in the past 6 months?->Unknown Jessi Briggs MD LAB BLOOD BANK TEST ORDERABLES Final Result Performing Organization Address City/[facility]/ZIP Co de Phone Number [facility] [place] [address] * Uric acid (10/24/2024 1:50 AM CDT) Pathologist [facility] Uric acid 3.8 2.5 - 7.0 mg/dL Blood 10/24/2024 1:50 AM CDT 10/24/2024 2:13 AM CDT Narrative [facility] - 10/24/2024 2:40 AM CDT Monday and only. Morning draw. . Jessi Briggs MD LAB BLOOD ORDER SHANT Final Result Performing Organization Address City/[facility] [place] [address] * Phosphorus (10/24/2024 1:50 AM CDT) Pathologist [facility] Phosphorus, pl 2.4 2.3 - 4.5 mg/dL Blood 10/24/2024 1:50 AM CDT 10/24/2024 2:13 AM CDT Jessi Briggs MD LAB BLOOD ORDER HSANT Final Result Performing Organization Address City/[facility] [place] [place] [address] * Lactate dehydrogenase (LD) (10/24/2024 1:50 AM CDT) Pathologist [facility] Lactate dehydrogenase (LDH) 213 100 - 250 Units/L Blood 10/24/2024 1:50 AM CDT 10/24/2024 2:13 AM CDT Narrative [facility] - 10/24/2024 2:40 AM CDT Monday and only. Morning draw. Jessi Briggs MD LAB BLOOD ORDER SHANT Final Result [facility] [place] [address] * (ABNORMAL) Comprehensive metabolic panel (10/24/2024 1:50 AM CDT) [facility] Sodium 138 135 - 145 mmol/L Potassium, pl 3.6 3.3 - 4.9 mmol/L [facility] Chloride 107 97 - 110 mmol/L [facility] CO2 28 22 - 32 mmol/L [facility] Anion gap 3 2 - 15 mmol/L [facility] BUN 8 6 - 25 mg/dL [facility] Creatinine 0.63 0.60 - 1.10 mg/dL [facility] Glucose 88 70 - 199 mg/dL [facility] Comment: Interpretive Data Fasting glucose >/= 126 [...] Current interpretive data was last revised 2022. Calcium 8.9 8.5 - 10.3 mg/dL [facility] Bilirubin, total 0.3 0.1 - 1.2 mg/dL [facility] Protein, pl 5.8(L) 6.5 - 8.5 g/dL [facility] Albumin 3.1(L) 3.5 - 5.0 g/dL [facility] Alk phos 185(H) 40 - 130 Units/L [facility] ALT 13 7 - 45 Units/L [facility] AST 20 10 - 45 Units/L [facility] Blood 10/24/2024 1:50 AM CDT 10/24/2024 2:13 AM CDT us Jessi Briggs MD LAB BLOOD ORDER SHANT Final Result Performing Organization Address [facility] Co de Phone Number [facility] [place] [address] * (ABNORMAL) Vancomycin level trough (10/23/2024 11:26 PM CDT) Vancomycin trough 5.7(L) 10.0 - 20.0 mcg/mL Blood 10/23/2024 11:2 6 PM CDT 10/23/2024 11:36 PM CDT us Cayla Solorzano MD LAB BLOOD ORDERABLES Final Resul t Performing Organization Address [facility] [place] [address] * POCT glucose (10/23/2024 8:27 PM CDT) Glucose, POC 98 70 - 199 mg/dL Blood 10/23/2024 8:27 PM CDT 10/23/2024 8:27 PM CDT us Tana Coronado MD LAB POCT ORDERABLES - DEVICE Final Result Performing Organization Address [facility] de Phone Number [facility] [place] [address] * POCT glucose (10/23/2024 5:50 PM CDT) Glucose, POC 104 70 - 199 mg/dL Blood 10/23/2024 5:50 PM CDT 10/23/2024 5:50 PM CDT us Tana Coronado MD LAB POCT ORDERABLES - DEVICE Final Result [facility] [place] [address] * FL Modified Barium Swallow W Video (10/23/2024 3:00 PM CDT) Anatomical Region Laterality Modality Head and Neck N/A Radio Fluoroscop y 10/23/2024 3:22 PM CDT Impressions 10/23/2024 3:55 PM CDT The swallowing mechanism is abnormal; see above comments. Please refer to the Speech Pathology procedure note for safe swallow recommendations as well as additional information regarding the oral-pharyngeal swallow function, plan of care, and recommended follow up. Dictated by: Lissette Stafford M.D. The radiology attending physician has personally reviewed this study, and had reviewed and/or edited this written report and agrees with it. Electronically signed by: Franck Arellano M.D. Narrative 10/23/2024 3:55 PM CDT EXAMINATION: MODIFIED BARIUM SWALLOW HISTORY: Dysphagia. TECHNIQUE: This procedure was completed in conjunction with a Speech Language Pathologist. The patient was given barium of multiple different consistencies to swallow. Video fluoroscopy was employed during the exam. FINDINGS: Oral-pharyngeal swallow function is mildly impaired. Penetration: No Aspiration: No Residue:Yes There is pharyngeal residue of purees and solids. Residue is sensed. The residual material is cleared. Other comments: None Procedure Note Franck Arellano MD - 10/23/2024 EXAMINATION: MODIFIED BARIUM SWALLOW HISTORY: Dysphagia. TECHNIQUE: This procedure was completed in conjunction with a Speech Language Pathologist. The patient was given barium of multiple different consistencies to swallow. Video fluoroscopy was employed during the exam. FINDINGS: Oral-pharyngeal swallow function is mildly impaired. Penetration: No Aspiration: No Residue:Yes There is pharyngeal residue of purees and solids. Residue is sensed. The residual material is cleared. Other comments: None IMPRESSION: The swallowing mechanism is abnormal; see above comments. Please refer to the Speech Pathology procedure note for safe swallow recommendations as well as additional information regarding the oral-pharyngeal swallow function, plan of care, and recommended follow up. Dictated by: Lissette Stafford M.D. The radiology attending physician has personally reviewed this study, and had reviewed and/or edited this written report and agrees with it. Electronically signed by: Franck Arellano M.D. us Tana Coronado MD IMG FLUOROSCOPY PROC EDURES Final Result * CODING COMPLIANCE MANAGER Evaluate and Treat (VFSS) (10/23/2024 2:38 PM CDT) Narrative Antonette Camarena, [facility] - 10/23/2024 2:38 PM CDT Antonette Camarena SLP 10/23/2024 3:55 PM Speech-Language Pathology: Videofluoroscopic Study of Swallow (VFSS/MBS) HPI/PMH HPI/PMH: 73 year old female with a h/o stage III pancreatic cancer diagnosed on 09/19/24, s/p C1D1 Gemzar and Abraxane on 10/15/24, as well as atrial fibrillation, GERD, UC, anxiety/depression, HTN, h/o gastric sleeve, who presents to the [facility] 10/21/24 due to Fever at home. She also endorses some choking when she eats due to not paying attention; no pain with swallowing. Respiratory/Intubation Status: currently on room air Imaging: CXR 10/21: Calcified granulomas again seen in left lung base. Trace pleural effusions and minimal atelectasis bilaterally in both posterior costophrenic angles on the lateral projection. No consolidation or other pulmonary disease to suggest pneumonia. No pneumothorax. Precautions: fall, NOMI Current Diet Order: regular, thin liquid General Information Susannah Camargo 10/23/24 CODING COMPLIANCE MANAGER Received On: 10/23/24 General Observations: alert, cooperative Reason for Referral:suspect pharyngeal dysphagia Pain Score: 0 - No pain If pain >4, was RN notified? N/A Patient Stated Goal/Comments: agrees to MBS Clinical Impression & Professional Recommendations Diet Solids Recommendation: Regular Diet Liquids Recommendations: Thin/regular Recommended Form of Medications: As tolerated (try a sip of liquid prior to pills) Postural Recommendations: Upright Overall Clinical Impression/Additional Information: Mild pharyngeal swallow dysfunction with motor deficits characterized by the following: Pharyngeal Phase Deficits: mildly reduced tongue base retraction in some trials Deficits result in: moderate vallecular residue with pudding and solid, despite largely functional swallow physiology. Suspect xerostomia contributes to residue. No laryngeal penetration, no aspiration. Also note esophageal stasis, suspect esophageal dysphagia contributes to her reported symptoms. Assessment Details & Results Purpose and Procedure of Videofluoroscopic Study of Swallow: Videofluoroscopic Study of Swallow completed to assess oropharyngeal swallow function and safety/efficiency of the swallow so that diet recommendations can be made. This test is completed in conjunction with Radiology. Results of this test are indicative of performance at the time of the exam. Standard procedure is in lateral view at 90 degrees. Consistencies Administered: Thin liquids, Purees, Solids Administered consistencies contain barium product. Thin Liquids: Laryngeal Penetration: None Aspiration Present: No Penetration Aspiration Scale-Thin: 1-Material does not enter airway Purees: Laryngeal Penetration: None Aspiration Present: No Penetration Aspiration Scale-Puree: 1-Material does not enter airway Solids: Laryngeal Penetration: None Aspiration Present: No Penetration Aspiration Scale-Solids: 1-Material does not enter airway MBSImp: MBSImp Results: Lip closure : 0-No labial escape Tongue Control with Bolus Hold: 0-Cohesive bolus between tongue to palatal seal Bolus Preparation/Mastication : 0-Timely and efficient chewing and mashing Bolus Transport/Lingual Motion : 0-Brisk tongue motion Oral Residue: 1-Trace residue lining oral structures (normal variant) Initiation of Pharyngeal Swallow : 2-Bolus head at posterior laryngeal surface of epiglottis Soft Palate : 0-No bolus between soft palate and pharyngeal wall Laryngeal Elevation : 0-Complete superior movement of thyroid cartilage with complete approximation of arytenoids to epiglottic petiole Anterior Hyoid Excursion: 0-Complete anterior movement Epiglottic Movement: 0-Complete inversion Laryngeal Vestibular Closure: 0-Complete, no air/contrast in the laryngeal vestibule Pharyngeal Stripping Wave: 0-Present and complete Pharyngeal Contraction (AP view only): Not assessed, No AP view Pharyngoesophageal Segment Opening : 0-Complete distention and complete duration, no obstruction of flow Tongue Base Retraction : 2-Narrow column of contrast or air between tongue base and posterior pharyngeal wall Pharyngeal Residue : 2-Collection of residue within or on pharyngeal structures Esophageal Clearance (upright position): Not assessed, No AP view Dysphagia Outcome and Severity Scale: Dysphagia Outcomes and Severity Scale: 5 Mild dysphagia Levels 1 & 2 on the SHERI indicate need for nonoral nutrition. Plan CODING COMPLIANCE MANAGER Recommendation (Add'l Services): No further CODING COMPLIANCE MANAGER indicated (do not anticipate CODING COMPLIANCE MANAGER needs at discharge) Next Visit Plan: treatment/therapy Discharge Summary Statement If this is the last swallow therapy visit, this serves as the discharge summary. Tana Coronado MD CODING COMPLIANCE MANAGER ORDERABLES Gail l Result * POCT glucose (10/23/2024 11:58 AM CDT) Glucose, POC 78 70 - 199 mg/dL Blood 10/23/2024 11:5 8 AM CDT 10/23/2024 11:58 AM CDT Tana Coronado MD LAB POCT ORDERABLES - DEVICE Final Result Performing Organization Address [facility] Co de Phone Number [facility] [place] [address] * POCT glucose (10/23/2024 7:26 AM CDT) Pathologist [facility] Glucose, POC 84 70 - 199 mg/dL Blood 10/23/2024 7:26 AM CDT 10/23/2024 7:26 AM CDT Tana Coronado MD LAB POCT ORDERABLES - DEVICE Final Result Performing Organization Address [facility]/ZIP Co de Phone Number [facility] [place] [address] * eGFR (10/23/2024 12:28 AM CDT) eGFR >90 >=60 mL/min/1. 73 [...] of Race in Diagnosing Kidney Disease, JASN 202). The CKD-EPI equation should not be used for patients with unstable renal function and has not been validated in children and those over 70. Current interpretive data was last reviewed 2021. Blood 10/23/2024 12:2 8 AM CDT 10/23/2024 12:46 AM CDT Jessi Briggs MD LAB BLOOD ORDER SHANT Final Result [facility] [place] [address] * (ABNORMAL) Differential, auto (10/23/2024 12:28 AM CDT) Neutrophil abs 2.24 1.50 - 6.50 K/cumm Imm gran abs 0.01 0.00 - 0.10 K/cumm [facility] Lymphocyte abs 0.74(L) 0.80 - 3.30 K/cumm [facility] Monocyte abs 0.54 0.20 - 0.80 K/cumm [facility] Eosinophil abs 0.03 0.00 - 0.50 K/cumm [facility] Basophil abs 0.01 0.00 - 0.10 K/cumm [facility] Neutrophil pct 62.8 % [facility] Comment: Interpretive Data Percent cell count reference ranges are not reported, since discordance with absolute values may lead to misinterpretation of CBC data. Current Interpretive Data was last revised on 2017. Imm gran pct 0.3 % [facility] Comment: Interpretive Data Percent cell count reference ranges are not reported, since discordance with absolute values may lead to misinterpretation of CBC data. Current Interpretive Data was last revised on 2017. Lymphocyte pct 20.7 % [facility] Comment: Interpretive Data Percent cell count reference ranges are not reported, since discordance with absolute values may lead to misinterpretation of CBC data. Current Interpretive Data was last revised on 2017. Monocyte pct 15.1 % [facility] Comment: Interpretive Data Percent cell count reference ranges are not reported, since discordance with absolute values may lead to misinterpretation of CBC data. Current Interpretive Data was last revised on 2017. Eosinophil pct 0.8 % [facility] Comment: Interpretive Data Percent cell count reference ranges are not reported, since discordance with absolute values may lead to misinterpretation of CBC data. Current Interpretive Data was last revised on 2017. Basophil pct 0.3 % [facility] Comment: Interpretive Data Percent cell count reference ranges are not reported, since discordance with absolute values may lead to misinterpretation of CBC data. Current Interpretive Data was last revised on 2017. Blood 10/23/2024 12:2 8 AM CDT 10/23/2024 12:47 AM CDT Jessi Briggs MD LAB BLOOD ORDER SHANT Final Result [facility] [place] [address] * (ABNORMAL) CBC with auto differential (10/23/2024 12:28 AM CDT) WBC 3.57(L) 3.80 - 9.90 K/cumm Hgb 8.0(L) 11.9 - 15.5 g/dL [facility] Hct 24.1(L) 35.6 - 45.5 % [facility] Plt 124(L) 150 - 400 K/cumm [facility] MPV 10.5 9.1 - 12.3 fL [facility] RBC 2.72(L) 3.90 - 5.20 M/cumm [facility] MCV 88.6 81.3 - 96.4 fL [facility] MCH 29.4 27.1 - 33.3 pg [facility] MCHC 33.2 32.3 - 35.7 g/dL [facility] RDW CV 14.7 11.1 - 14.9 % [facility] RDW SD 47.7 35.7 - 48.1 fL [facility] NRBC abs 0.00 0.00 - 0.01 K/cumm [facility] Blood 10/23/2024 12:2 8 AM CDT 10/23/2024 12:47 AM CDT Jessi Briggs MD LAB BLOOD ORDER SHANT Final Result Performing Organization Address City/[facility]/ZIP Co de Phone Number [facility] [place] [address] * (ABNORMAL) Phosphorus (10/23/2024 12:28 AM CDT) [facility] Phosphorus, pl 2.1(L) 2.3 - 4.5 mg/dL Blood 10/23/2024 12:2 8 AM CDT 10/23/2024 12:46 AM CDT Jessi Briggs MD LAB BLOOD ORDER SHANT Final Result Performing Organization Address City/[facility]/ZIP Co de Phone Number [facility] [place] [address] * (ABNORMAL) Comprehensive metabolic panel (10/23/2024 12:28 AM CDT) [facility] Sodium 137 135 - 145 mmol/L Potassium, pl 3.5 3.3 - 4.9 mmol/L [facility] Chloride 105 97 - 110 mmol/L [facility] CO2 27 22 - 32 mmol/L [facility] Anion gap 5 2 - 15 mmol/L [facility] BUN 8 6 - 25 mg/dL [facility] Creatinine 0.58(L) 0.60 - 1.10 mg/dL [facility] Glucose 122 70 - 199 mg/dL [facility] Comment: Interpretive Data Fasting glucose >/= 126 [...] Current interpretive data was last revised 2022. Calcium 8.2(L) 8.5 - 10.3 mg/dL [facility] Bilirubin, total 0.4 0.1 - 1.2 mg/dL [facility] Protein, pl 5.3(L) 6.5 - 8.5 g/dL [facility] Albumin 2.8(L) 3.5 - 5.0 g/dL [facility] Alk phos 175(H) 40 - 130 Units/L [facility] ALT 14 7 - 45 Units/L [facility] AST 17 10 - 45 Units/L [facility] Blood 10/23/2024 12:2 8 AM CDT 10/23/2024 12:46 AM CDT us Jessi Briggs MD LAB BLOOD ORDER SHANT Final Result Performing Organization Address City/[facility]/ZIP Co de Phone Number [facility] [place] [address] * POCT glucose (10/22/2024 8:01 PM CDT) [facility] Signature Glucose, POC 112 70 - 199 mg/dL Blood 10/22/2024 8:01 PM CDT 10/22/2024 8:01 PM CDT us Tana Coronado MD LAB POCT ORDERABLES - DEVICE Final Result Performing Organization Address City/[facility]/ZIP Co de Phone Number [facility] [place] [address] * POCT glucose (10/22/2024 5:14 PM CDT) Glucose, POC 99 70 - 199 mg/dL Blood 10/22/2024 5:14 PM CDT 10/22/2024 5:14 PM CDT Tana Coronado MD LAB POCT ORDERABLES - DEVICE Final Result [facility] [place] [address] * US Vein Duplex Upper Extremity Left Limited, Unilateral (10/22/2024 4:42 PM CDT) Anatomical Region Laterality Modality Vascular Left Ultrasound 10/22/2024 4:10 PM CDT Narrative 10/22/2024 9:32 PM CDT [facility] [employer] [facility] - Department of Vascular Surgery, Vascular Laboratory [address] [place] [id number] Upper Extremity Venous Ultrasound Report Patient Name: SUSANNAH CAMARGO : 1950 ([id number]) Study Date: 10/22/2024 4:10:04 PM Gender: F Tech: DC Location: [id number] Ref Provider: TANA CORONADO Quality: Adequate Order Provider: TANA CORONADO PROCEDURES: Vascular Report: Venous Duplex imaging was performed in the left upper extremity. The internal jugular, subclavian and axillary veins were evaluated for patency, spontaneity and phasicity with Doppler, compression and augmentation maneuvers. The brachial, basilic and cephalic veins were also evaluated with compression maneuvers. INDICATIONS: LUE swelling, erythema. FINDINGS: Performing Data Services Developer: Halley Castillo RVT. Left: Venous Doppler signals in the left upper extremity are within normal limits for spontaneity and phasicity; normal response to compression maneuvers. No evidence of superficial vein thrombus in the left upper extremity. Comments: Unable to assess contralateral subclavian vein due to catheter/dressing. Unilateral (limited study) performed per M.D. order. CONCLUSIONS: 1. No evidence of acute deep vein thrombosis in the left upper extremity. 2. No evidence of superficial vein thrombus in the left upper extremity. HISTORY: Upper extremity swelling. PREVIOUS STUDIES: No previous studies for comparison. DISCLAIMER: The study images and the final report will be retained in the patient chart by the Vascular Laboratory for the legally required time period. This chart constitutes the legal record of any testing performed. ATTESTATION: I have reviewed and interpreted the pertinent images and measurements of this study. I attest to the conclusions in the final report that is provided above. Electronically Signed By: Dano Gleason MD FACS 10/22/2024 9:31:18 PM CDT Procedure Note Dano Gleason MD - 10/22/2024 [employer] - Department of Vascular Surgery,Vascular Laboratory [address] [place] [address] Upper Extremity Venous Ultrasound Report Patient Name: SUSANNAH CAMARGO : 1950 (73y 9m) Study Date: 10/22/2024 4:10:04 PM Gender: F Tech: DC Location: [id number] Ref Provider: TANA CORONADO Quality: Adequate Order Provider: TANA CORONADO PROCEDURES: Vascular Report: Venous Duplex imaging was performed in the left upper extremity. Theinternal jugular, subclavian and axillary veins were evaluated for patency, spontaneity andphasicity with Doppler, compression and augmentation maneuvers. The brachial, basilic andcephalic veins were also evaluated with compression maneuvers. INDICATIONS: LUE swelling, erythema. FINDINGS: Performing Data Services Developer: Halley Castillo RVT. Left: Venous Doppler signals in the left upper extremity are within normallimits for spontaneity and phasicity; normal response to compression maneuvers. Noevidence of superficial vein thrombus in the left upper extremity. Comments: Unable to assess contralateral subclavian vein due to catheter/dressing.Unilateral (limited study) performed per M.D. order. CONCLUSIONS: 1. No evidence of acute deep vein thrombosis in the left upperextremity. 2. No evidence of superficial vein thrombus in the left upper extremity. HISTORY: Upper extremity swelling. PREVIOUS STUDIES: No previous studies for comparison. DISCLAIMER: The study images and the final report will be retained in the patientchart by the Vascular Laboratory for the legally required time period. This chartconstitutes the legal record of any testing performed. ATTESTATION: I have reviewed and interpreted the pertinent images and measurements ofthis study. I attest to the conclusions in the final report that is provided above. Electronically Signed By: Dano Gleason MD FACS 10/22/2024 9:31:18 PM CDT Tana Coronado MD IMG US PROCEDURES Fi nal Result * POCT glucose (10/22/2024 12:21 PM CDT) Glucose, POC 94 70 - 199 mg/dL Blood 10/22/2024 12:2 1 PM CDT 10/22/2024 12:21 PM CDT Tana Coronado MD LAB POCT ORDERABLES - DEVICE Final Result [facility] [place] [address] * POCT glucose (10/22/2024 7:14 AM CDT) Glucose, POC 73 70 - 199 mg/dL Blood 10/22/2024 7:14 AM CDT 10/22/2024 7:14 AM CDT Tana Coronado MD LAB POCT ORDERABLES - DEVICE Final Result [facility] [place] [address] * Stool culture Stool Rectum (10/22/2024 6:46 AM CDT) [facility] Signature Direct Specimen Exam Shiga Toxin Testing: Antigen detection assay for Shiga-toxin NEGATIVE for Shiga Toxin 1 and Shiga Toxin 2. Report Final Report: No growth of enteric bacterial pathogens [facility] Stool (Rectum) 10/22/2024 6: 46 AM CDT 10/22/2024 7:57 AM CDT Narrative [facility] - 10/26/2024 9:59 AM CDT Testing performed by [facility] Microbiology Laboratory ([phone]). Routine stool cultures include procedures to detect Salmonella, Shigella, Edwardsiella, Aeromonas, Pleisiomonas, Campylobacter, Yersinia, E. coli O157, and Shiga-like toxins. Vibrio is cultured only upon special request. If Vibrio is suspected, please call the laboratory at [phone]. Interpretive data was last updated August 22, 2016. Jessi Briggs MD LAB MICROBIOLOG Y - GENERAL ORDERABLES Final Result Performing Organization Address City/[facility]/ZIP Co de Phone Number ENRIQUE [facility] [place] [address] * eGFR (10/22/2024 2:51 AM CDT) eGFR >90 >=60 mL/min/1. 73 [...] of Race in Diagnosing Kidney Disease, JASN 202). The CKD-EPI equation should not be used for patients with unstable renal function and has not been validated in children and those over 70. Current interpretive data was last reviewed 2021. Blood 10/22/2024 2:51 AM CDT 10/22/2024 3:19 AM CDT Jessi Briggs MD LAB BLOOD ORDER SHANT Final Result Performing Organization Address [facility]/ZIP Co de Phone Number [facility] [place] [address] * aPTT (10/22/2024 2:51 AM CDT) aPTT 36 28 - 38 sec Comment: Interpretive Data Heparin therapeutic range: 66.0 - 100.0 seconds. Range based on correlation with therapeutic heparin activity range of 0.3 - 0.7 Units/mL. Current interpretive data was last revised on 2023. Blood 10/22/2024 2:51 AM CDT 10/22/2024 3:17 AM CDT Jessi Briggs MD LAB BLOOD ORDER SHANT Final Result ENRIQUE [facility] [place] [address] * (ABNORMAL) Protime-INR (10/22/2024 2:51 AM CDT) PT 14.9(H) 9.7 - 13.0 sec INR 1.37(H) 0.90 - 1.20 [facility] Comment: Interpretive data Oral anticoagulant therapeutic ranges: Venous thromboembolism prophylaxis or treatment: 2.0-3.0 CARDIOLOGY Standard range: 2.0-3.0 High-intensity range: 2.5-3.5 Refer to indication-specific guidelines for appropriate target ranges for prosthetic heart valve replacement. Current interpretive data was last revised on 2019. Blood 10/22/2024 2:51 AM CDT 10/22/2024 3:17 AM CDT Jessi Briggs MD LAB BLOOD ORDER SHANT Final Result ENRIQUE [facility] [place] [address] * Uric acid (10/22/2024 2:51 AM CDT) Uric acid 3.6 2.5 - 7.0 mg/dL Blood 10/22/2024 2:51 AM CDT 10/22/2024 3:19 AM CDT Narrative [facility] - 10/22/2024 3:48 AM CDT Monday and only. Morning draw. . Jessi Briggs MD LAB BLOOD ORDER SHANT Final Result Performing Organization Address [facility] [place] [address] * Phosphorus (10/22/2024 2:51 AM CDT) [facility] Phosphorus, pl 2.3 2.3 - 4.5 mg/dL Blood 10/22/2024 2:51 AM CDT 10/22/2024 3:19 AM CDT Jessi Briggs MD LAB BLOOD ORDER SHANT Final Result Performing Organization Address [facility] [place] [address] * Lactate dehydrogenase (LD) (10/22/2024 2:51 AM CDT) [facility] Lactate dehydrogenase (LDH) 185 100 - 250 Units/L Blood 10/22/2024 2:51 AM CDT 10/22/2024 3:19 AM CDT Narrative [facility] 10/22/2024 3:48 AM CDT Monday and only. Morning draw. Jessi Briggs MD LAB BLOOD ORDER SHANT Final Result Performing Organization Address [facility] [place] [address] * (ABNORMAL) Comprehensive metabolic panel (10/22/2024 2:51 AM CDT) [facility] Sodium 136 135 - 145 mmol/L Potassium, pl 3.7 3.3 - 4.9 mmol/L [facility] Chloride 102 97 - 110 mmol/L [facility] CO2 27 22 - 32 mmol/L [facility] Anion gap 7 2 - 15 mmol/L [facility] BUN 9 6 - 25 mg/dL [facility] Creatinine 0.64 0.60 - 1.10 mg/dL [facility] Glucose 107 70 - 199 mg/dL [facility] Comment: Interpretive Data Fasting glucose >/= 126 [...] Current interpretive data was last revised 2022. Calcium 8.6 8.5 - 10.3 mg/dL [facility] Bilirubin, total 0.8 0.1 - 1.2 mg/dL [facility] Protein, pl 5.3(L) 6.5 - 8.5 g/dL [facility] Albumin 2.8(L) 3.5 - 5.0 g/dL [facility] Alk phos 186(H) 40 - 130 Units/L [facility] ALT 13 7 - 45 Units/L [facility] AST 16 10 - 45 Units/L [facility] Blood 10/22/2024 2:51 AM CDT 10/22/2024 3:19 AM CDT Jessi Briggs MD LAB BLOOD ORDER SHANT Final Result [facility] [place] [address] * Type and screen (10/22/2024 2:50 AM CDT) Brigitte, indirect Negative ABO Rh O Negative [facility] Blood 10/22/2024 2:50 AM CDT 10/22/2024 3:14 AM CDT Narrative [facility] - 10/22/2024 4:09 AM CDT Has the patient had Daratumumab or Isatuximab in the past 6 months?->Unknown Jessi Briggs MD LAB BLOOD BANK TEST ORDERABLES Final Result Performing Organization Address City/[facility] de Phone Number [facility] [place] [address] * POCT glucose (10/22/2024 2:48 AM CDT) Glucose, POC 77 70 - 199 mg/dL Blood 10/22/2024 2:48 AM CDT 10/22/2024 2:48 AM CDT Kalli Cox MD LAB POCT ORDERABLES - DEV ICE Final Result Performing Organization Address [facility] de Phone Number [facility] [place] [address] * (ABNORMAL) POCT glucose (10/22/2024 2:47 AM CDT) Glucose, POC 60(L) 70 - 199 mg/dL Blood 10/22/2024 2:47 AM CDT 10/22/2024 2:47 AM CDT Kalli Cox MD LAB POCT ORDERABLES - DEV ICE Final Result Performing Organization Address [facility] de Phone Number [facility] [place] [address] * (ABNORMAL) Differential, auto (10/22/2024 2:30 AM CDT) Neutrophil abs 2.33 1.50 - 6.50 K/cumm Imm gran abs 0.02 0.00 - 0.10 K/cumm [facility] Lymphocyte abs 0.73(L) 0.80 - 3.30 K/cumm [facility] Monocyte abs 0.38 0.20 - 0.80 K/cumm [facility] Eosinophil abs 0.02 0.00 - 0.50 K/cumm [facility] Basophil abs 0.00 0.00 - 0.10 K/cumm [facility] Neutrophil pct 66.9 % [facility] Comment: Interpretive Data Percent cell count reference ranges are not reported, since discordance with absolute values may lead to misinterpretation of CBC data. Current Interpretive Data was last revised on 2017. Imm gran pct 0.6 % [facility] Comment: Interpretive Data Percent cell count reference ranges are not reported, since discordance with absolute values may lead to misinterpretation of CBC data. Current Interpretive Data was last revised on 2017. Lymphocyte pct 21.0 % [facility] Comment: Interpretive Data Percent cell count reference ranges are not reported, since discordance with absolute values may lead to misinterpretation of CBC data. Current Interpretive Data was last revised on 2017. Monocyte pct 10.9 % [facility] Comment: Interpretive Data Percent cell count reference ranges are not reported, since discordance with absolute values may lead to misinterpretation of CBC data. Current Interpretive Data was last revised on 2017. Eosinophil pct 0.6 % [facility] Comment: Interpretive Data Percent cell count reference ranges are not reported, since discordance with absolute values may lead to misinterpretation of CBC data. Current Interpretive Data was last revised on 2017. Basophil pct 0.0 % [facility] Comment: Interpretive Data Percent cell count reference ranges are not reported, since discordance with absolute values may lead to misinterpretation of CBC data. Current Interpretive Data was last revised on 2017. Blood 10/22/2024 2:30 AM CDT 10/22/2024 3:19 AM CDT Jessi Briggs MD LAB BLOOD ORDER SHANT Final Result [facility] [place] [address] * (ABNORMAL) CBC with auto differential (10/22/2024 2:30 AM CDT) [facility] WBC 3.48(L) 3.80 - 9.90 K/cumm Hgb 7.9(L) 11.9 - 15.5 g/dL [facility] Hct 24.5(L) 35.6 - 45.5 % [facility] Plt 111(L) 150 - 400 K/cumm [facility] MPV 10.7 9.1 - 12.3 fL [facility] RBC 2.73(L) 3.90 - 5.20 M/cumm [facility] MCV 89.7 81.3 - 96.4 fL [facility] MCH 28.9 27.1 - 33.3 pg [facility] MCHC 32.2(L) 32.3 - 35.7 g/dL [facility] RDW CV 15.0(H) 11.1 - 14.9 % [facility] RDW SD 49.4(H) 35.7 - 48.1 fL [facility] NRBC abs 0.00 0.00 - 0.01 K/cumm [facility] Blood 10/22/2024 2:30 AM CDT 10/22/2024 3:19 AM CDT Jessi Briggs MD LAB BLOOD ORDER SHANT Final Result ENRI[facility] [place] [address] * eGFR (10/21/2024 9:15 PM CDT) [facility] eGFR >90 >=60 mL/min/1. 73 m2 Comment: [...] of Race in Diagnosing Kidney Disease, JASN 202). The CKD-EPI equation should not be used for patients with unstable renal function and has not been validated in children and those over 70. Current interpretive data was last reviewed 2021. Blood 10/21/2024 9:15 PM CDT 10/21/2024 9:32 PM CDT Jessi Briggs MD LAB BLOOD ORDER SHANT Final Result [facility] [place] [address] * (ABNORMAL) Differential, auto (10/21/2024 9:15 PM CDT) Neutrophil abs 2.53 1.50 - 6.50 K/cumm Imm gran abs 0.03 0.00 - 0.10 K/cumm [facility] Lymphocyte abs 0.69(L) 0.80 - 3.30 K/cumm [facility] Monocyte abs 0.27 0.20 - 0.80 K/cumm [facility] Eosinophil abs 0.01 0.00 - 0.50 K/cumm [facility] Basophil abs 0.00 0.00 - 0.10 K/cumm [facility] Neutrophil pct 71.8 % [facility] Comment: Interpretive Data Percent cell count reference ranges are not reported, since discordance with absolute values may lead to misinterpretation of CBC data. Current Interpretive Data was last revised on 2017. Imm gran pct 0.8 % [facility] Comment: Interpretive Data Percent cell count reference ranges are not reported, since discordance with absolute values may lead to misinterpretation of CBC data. Current Interpretive Data was last revised on 2017. Lymphocyte pct 19.5 % [facility] Comment: Interpretive Data Percent cell count reference ranges are not reported, since discordance with absolute values may lead to misinterpretation of CBC data. Current Interpretive Data was last revised on 2017. Monocyte pct 7.6 % [facility] Comment: Interpretive Data Percent cell count reference ranges are not reported, since discordance with absolute values may lead to misinterpretation of CBC data. Current Interpretive Data was last revised on 2017. Eosinophil pct 0.3 % [facility] Comment: Interpretive Data Percent cell count reference ranges are not reported, since discordance with absolute values may lead to misinterpretation of CBC data. Current Interpretive Data was last revised on 2017. Basophil pct 0.0 % [facility] Comment: Interpretive Data Percent cell count reference ranges are not reported, since discordance with absolute values may lead to misinterpretation of CBC data. Current Interpretive Data was last revised on 2017. Blood 10/21/2024 9:15 PM CDT 10/21/2024 9:32 PM CDT Jessi Briggs MD LAB BLOOD ORDER SHANT Final Result [facility] [place] [address] * (ABNORMAL) CBC with auto differential (10/21/2024 9:15 PM CDT) WBC 3.53(L) 3.80 - 9.90 K/cumm Hgb 8.2(L) 11.9 - 15.5 g/dL [facility] Hct 24.5(L) 35.6 - 45.5 % [facility] Plt 114(L) 150 - 400 K/cumm [facility] MPV 10.2 9.1 - 12.3 fL [facility] RBC 2.79(L) 3.90 - 5.20 M/cumm [facility] MCV 87.8 81.3 - 96.4 fL [facility] MCH 29.4 27.1 - 33.3 pg [facility] MCHC 33.5 32.3 - 35.7 g/dL [facility] RDW CV 14.8 11.1 - 14.9 % [facility] RDW SD 48.0 35.7 - 48.1 fL [facility] NRBC abs 0.00 0.00 - 0.01 K/cumm [facility] Blood 10/21/2024 9:15 PM CDT 10/21/2024 9:32 PM CDT Jessi Briggs MD LAB BLOOD ORDER SHANT Final Result [facility] [place] [address] * (ABNORMAL) Infection Prevention MRSA Only (Staphylococcus aureus) Culture Nasal (10/21/2024 9:15 PMCDT) Report Final Report: Methicillin-resist ant Staphylococcus aureus (.) Organism METHICILLIN-RESIST ANT STAPHYLOCOCCUS AUREUS [facility] Nasal 10/21/2024 9:15 PM CDT 10/21/2024 9:33 PM CDT Narrative [facility] - 10/24/2024 11:16 AM CDT Testing performed by [facility] Microbiology Laboratory ([phone]). Jessi Briggs MD LAB MICROBIOLOG Y - GENERAL ORDERABLES Final Result [facility] [place] [address] * (ABNORMAL) Phosphorus (10/21/2024 9:15 PM CDT) Phosphorus, pl 1.9(L) 2.3 - 4.5 mg/dL Blood 10/21/2024 9:15 PM CDT 10/21/2024 9:32 PM CDT Jessi Briggs MD LAB BLOOD ORDER SHANT Final Result Performing Organization Address City/[facility]/ZIP Co de Phone Number [facility] [place] [address] * Magnesium (10/21/2024 9:15 PM CDT) [facility] Magnesium 1.6 1.4 - 2.5 mg/dL Blood 10/21/2024 9:15 PM CDT 10/21/2024 9:32 PM CDT Jessi Briggs MD LAB BLOOD ORDER SHANT Final Result Performing Organization Address [facility] Co de Phone Number [facility] [place] [address] * (ABNORMAL) Comprehensive metabolic panel (10/21/2024 9:15 PM CDT) [facility] Sodium 137 135 - 145 mmol/L Potassium, pl 3.5 3.3 - 4.9 mmol/L [facility] Chloride 103 97 - 110 mmol/L [facility] CO2 27 22 - 32 mmol/L [facility] Anion gap 7 2 - 15 mmol/L [facility] BUN 9 6 - 25 mg/dL [facility] Creatinine 0.66 0.60 - 1.10 mg/dL [facility] Glucose 98 70 - 199 mg/dL [facility] Comment: Interpretive Data Fasting glucose >/= 126 [...] Current interpretive data was last revised 2022. Calcium 8.7 8.5 - 10.3 mg/dL [facility] Bilirubin, total 0.9 0.1 - 1.2 mg/dL [facility] Protein, pl 5.4(L) 6.5 - 8.5 g/dL [facility] Albumin 2.8(L) 3.5 - 5.0 g/dL [facility] Alk phos 191(H) 40 - 130 Units/L [facility] ALT 14 7 - 45 Units/L [facility] AST 17 10 - 45 Units/L [facility] Blood 10/21/2024 9:15 PM CDT 10/21/2024 9:32 PM CDT Jessi Briggs MD LAB BLOOD ORDER SHANT Final Result Performing Organization Address City/[facility]/ZIP Co de Phone Number [facility] [place] [address] * POCT glucose (10/21/2024 8:35 PM CDT) [facility] Glucose, POC 104 70 - 199 mg/dL Blood 10/21/2024 8:35 PM CDT 10/21/2024 8:35 PM CDT us Kalli Cox MD LAB POCT ORDERABLES - DEV ICE Final Result Performing Organization Address [facility]/ZIP Co de Phone Number [facility] [place] [address] * ECG 12 lead (10/21/2024 8:17 PM CDT) Ventricular Rate EKG/Min 85 BPM [facility] Atrial Rate 85 BPM [facility] [place]-Interval (MSEC) 166 ms [facility] QRS-Interval (MSEC) 96 ms [facility] QT-Interval (MSEC) 352 ms [facility] QTc 418 ms [facility] P [place] 65 degrees [facility] R [place] 30 degrees [facility] T [place] 21 degrees [facility] Diagnosis Normal sinus rhythm Low voltage QRS Nonspecific T wave abnormality Abnormal ECG No previous ECGs available Confirmed by Dorinda Hong MD ([id number]) on 10/23/2024 6:21:31 AM [facility] [employer] 10/21/2024 8:17 PM CDT 10/23/2024 6:21 AM CDT Jessi Sima Briggs MD ECG ORDERABLES Final Result [facility] [employer] [facility] * US Vein Duplex Lower Extremity Bilateral Complete (10/21/2024 4:02 PM CDT) Anatomical Region Laterality Modality Vascular Bilateral Ultrasound 10/21/2024 12:2 5 PM CDT Narrative 10/22/2024 11:07 AM CDT [facility] - Department of Vascular Surgery, Vascular Laboratory [address] [place] [address] Lower Extremity Venous Ultrasound Report Patient Name: SUSANNAH CAMARGO : 1950 (73y 9m) Study Date: 10/21/2024 12:25:49 PM Gender: F Tech: Location: [facility] Provider: JACQUELYN CINTRON Quality: Adequate Order Provider: JACQUELYN CINTRON PROCEDURES: Vascular Report: Venous Duplex imaging was performed bilaterally in the lower extremities. The common femoral, femoral, popliteal, posterior tibial, peroneal veins were evaluated for patency, spontaneity and phasicity with Doppler, compression and augmentation maneuvers. Great saphenous vein proximal at the junction was evaluated with compression maneuvers. INDICATIONS: bilater LE edema and pain; r/o DVT - FINDINGS: Performing Data Services Developer: Taylor Lauren RVT. Bilateral: Venous Doppler signals in the bilateral lower extremity are within normal limits for spontaneity and phasicity and respond normally to augmentation maneuvers. No evidence of deep vein thrombus by duplex, proximal to the calf. CONCLUSIONS: 1. There is no evidence of acute deep vein thrombosis in the lower extremities bilaterally. Noninvasive venous studies cannot rule out isolated calf vein obstruction. HISTORY: Pancreatic Adenocarcinoma presents to [facility] from home for evaluation with daughters accompanying r/t fever, edema to LUE and BLE up to pelvic area no reported hx of DVT - PREVIOUS STUDIES: No previous studies for comparison. DISCLAIMER: The study images and the final report will be retained in the patient chart by the Vascular Laboratory for the legally required time period. This chart constitutes the legal record of any testing performed. ATTESTATION: I have reviewed and interpreted the pertinent images and measurements of this study. I attest to the conclusions in the final report that is provided above. Electronically Signed By: Dano Gleason MD FACS 10/22/2024 10:02:18 AM CDT Procedure Note Dano Gleason MD - 10/22/2024 [facility] - Department of Vascular Surgery,Vascular Laboratory [address] [place] [address] Lower Extremity Venous Ultrasound Report Patient Name: SUSANNAH CAMARGO : 1950 (73y 9m) Study Date: 10/21/2024 12:25:49 PM Gender: F Tech: SHANNA Location: [facility] Ref Provider: JACQUELYN CINTRON Quality: Adequate Order Provider: JACQUELYN CINTRON PROCEDURES: Vascular Report: Venous Duplex imaging was performed bilaterally in the lower extremities.The common femoral, femoral, popliteal, posterior tibial, peroneal veins wereevaluated for patency, spontaneity and phasicity with Doppler, compression and augmentationmaneuvers. Great saphenous vein proximal at the junction was evaluated with compressionmaneuvers. INDICATIONS: bilater LE edema and pain; r/o DVT - FINDINGS: Performing Data Services Developer: Taylor Lauren RVT. Bilateral: Venous Doppler signals in the bilateral lower extremity are within normallimits for spontaneity and phasicity and respond normally to augmentation maneuvers.No evidence of deep vein thrombus by duplex, proximal to the calf. CONCLUSIONS: 1. There is no evidence of acute deep vein thrombosis in the lowerextremities bilaterally. Noninvasive venous studies cannot rule out isolated calf veinobstruction. HISTORY: Pancreatic Adenocarcinoma presents to [facility] from home for evaluation withdaughters accompanying r/t fever, edema to LUE and BLE up to pelvic area no reported hx of DVT - PREVIOUS STUDIES: No previous studies for comparison. DISCLAIMER: The study images and the final report will be retained in the patientchart by the Vascular Laboratory for the legally required time period. This chartconstitutes the legal record of any testing performed. ATTESTATION: I have reviewed and interpreted the pertinent images and measurements ofthis study. I attest to the conclusions in the final report that is provided above. Electronically Signed By: Dano Gleason MD, FACS 10/22/2024 10:02:18 AM CDT us Jacquelyn Cintron NP IMG US PROCEDURES Final Re sult * Transfuse RBC (10/21/2024 3:15 PM CDT) Blood Jacquelyn Cintron BUILDING EQUIPMENT INSPECTOR BLOOD TRANSFUSION ORDERABL ES Final Result Performing Organization Address City/[facility]/ZIP Co de Phone Number [facility] [place] [address] * Check Sample (10/21/2024 11:17 AM CDT) ABO Rh O Negative [facility] OTHER 10/21/2024 11:1 7 AM CDT 10/21/2024 11:26 AM CDT Kalli Cox MD LAB BLOOD ORDERABLES Gail l Result Performing Organization Address [facility] [place] [address] [facility] * Type and screen (10/21/2024 9:36 AM CDT) ABO Rh O Negative Brigitte, indirect Negative [facility] Blood 10/21/2024 9:36 AM CDT 10/21/2024 9:52 AM CDT Narrative [facility] - 10/21/2024 10:57 AM CDT Has the patient had Daratumumab or Isatuximab in the past 6 months?->Unknown Jacquelyn Cintron BUILDING EQUIPMENT INSPECTOR LAB BLOOD BANK TEST ORDERA BLES Final Result Performing Organization Address City/[facility]/ZIP Co de Phone Number [facility] [place] [address] * Prepare RBC: 1 Units (10/21/2024 9:27 AM CDT) Product code [id number] Unit Number [id number] [facility] Product Blood Type ONEG [facility] Dispense Status PRESUMED TRANSFUSED [facility] Blood 10/21/2024 9:27 AM CDT 10/21/2024 9:28 AM CDT Narrative [facility] - 10/22/2024 12:55 AM CDT Are special requirements needed? (All products are leukoreduced and CMV- safe)- >No Date required:-[id number] LRRBC # of [id number] Reasons:-Hgb <7 g/dL} us Jacquelyn Cintron BUILDING EQUIPMENT INSPECTOR BLOOD BANK PRODUCT ORDERAB LES Final Result [facility] [place] [address] * eGFR (10/21/2024 6:50 AM CDT) eGFR >90 >=60 mL/min/1. 73 [...] Current interpretive data was last reviewed 2021. Blood 10/21/2024 6:50 AM CDT 10/21/2024 7:13 AM CDT us Theresa Schumacher NP LAB BLOOD ORDERABLES Final Result Performing Organization Address City/[facility]/ZIP Co de Phone Number [facility] [place] [address] * (ABNORMAL) Differential, auto (10/21/2024 6:50 AM CDT) Neutrophil abs 1.77 1.50 - 6.50 K/cumm Imm gran abs 0.01 0.00 - 0.10 K/cumm [facility] Lymphocyte abs 0.54(L) 0.80 - 3.30 K/cumm [facility] Monocyte abs 0.18(L) 0.20 - 0.80 K/cumm [facility] Eosinophil abs 0.02 0.00 - 0.50 K/cumm [facility] Basophil abs 0.01 0.00 - 0.10 [facility] Neutrophil pct 70.0 % [facility] Comment: Interpretive Data Percent cell count reference ranges are not reported, since discordance with absolute values may lead to misinterpretation of CBC data. Current Interpretive Data was last revised on 2017. Imm gran pct 0.4 % [facility] Comment: Interpretive Data Percent cell count reference ranges are not reported, since discordance with absolute values may lead to misinterpretation of CBC data. Current Interpretive Data was last revised on 2017. Lymphocyte pct 21.3 % [facility] Comment: Interpretive Data Percent cell count reference ranges are not reported, since discordance with absolute values may lead to misinterpretation of CBC data. Current Interpretive Data was last revised on 2017. Monocyte pct 7.1 % [facility] Comment: Interpretive Data Percent cell count reference ranges are not reported, since discordance with absolute values may lead to misinterpretation of CBC data. Current Interpretive Data was last revised on 2017. Eosinophil pct 0.8 % [facility] Comment: Interpretive Data Percent cell count reference ranges are not reported, since discordance with absolute values may lead to misinterpretation of CBC data. Current Interpretive Data was last revised on 2017. Basophil pct 0.4 % [facility] Comment: Interpretive Data Percent cell count reference ranges are not reported, since discordance with absolute values may lead to misinterpretation of CBC data. Current Interpretive Data was last revised on 2017. Blood 10/21/2024 6:50 AM CDT 10/21/2024 7:00 AM CDT Theresa Schumacher NP LAB BLOOD ORDERABLES Final Result Performing Organization Address City/[facility]/ZIP Co de Phone Number [facility] [place] [address] * (ABNORMAL) CBC with auto differential (10/21/2024 6:50 AM CDT) Pathologist [facility] WBC 2.53(L) 3.80 - 9.90 K/cumm Hgb 6.7(L) 11.9 - 15.5 g/dL [facility] Hct 20.7(L) 35.6 - 45.5 % [facility] Plt 110(L) 150 - 400 K/cumm [facility] MPV 10.5 9.1 - 12.3 fL [facility] RBC 2.31(L) 3.90 - 5.20 M/cumm [facility] MCV 89.6 81.3 - 96.4 fL [facility] MCH 29.0 27.1 - 33.3 pg [facility] MCHC 32.4 32.3 - 35.7 g/dL [facility] RDW CV 14.9 11.1 - 14.9 % [facility] RDW SD 48.6(H) 35.7 - 48.1 fL [facility] NRBC abs 0.00 0.00 - 0.01 K/cumm [facility] Blood 10/21/2024 6:50 AM CDT 10/21/2024 7:00 AM CDT Theresa Schumacher NP LAB BLOOD ORDERABLES Final Result [facility] [place] [address] * (ABNORMAL) Comprehensive metabolic panel (10/21/2024 6:50 AM CDT) Pathologist [facility] Sodium 137 135 - 145 mmol/L Potassium, pl 3.4 3.3 - 4.9 mmol/L [facility] Chloride 104 97 - 110 mmol/L [facility] CO2 28 22 - 32 mmol/L [facility] Anion gap 5 2 - 15 mmol/L [facility] BUN 11 6 - 25 mg/dL [facility] Creatinine 0.65 0.60 - 1.10 mg/dL [facility] Glucose 108 70 - 199 mg/dL [facility] Comment: Interpretive Data Fasting glucose >/= 126 [...] Current interpretive data was last revised 2022. Calcium 8.2(L) 8.5 - 10.3 mg/dL [facility] Bilirubin, total 0.5 0.1 - 1.2 mg/dL [facility] Protein, pl 5.0(L) 6.5 - 8.5 g/dL [facility] Albumin 2.6(L) 3.5 - 5.0 g/dL [facility] Alk phos 182(H) 40 - 130 Units/L [facility] ALT 13 7 - 45 Units/L [facility] AST 16 10 - 45 Units/L [facility] Blood 10/21/2024 6:50 AM CDT 10/21/2024 7:00 AM CDT us Theresa Schumacher NP LAB BLOOD ORDERABLES Final Result [facility] Department [place] [address] * Urinalysis reflex to microscopic and culture Urine, clean voided (10/21/2024 12:16 AM CDT) Color, ur Straw Yellow Clarity, ur Clear Clear [facility] Specific gravity, ur 1.013 1.003 - 1.030 [facility] pH, urine 6.0 [facility] Comment: Interpretive Data U rine pH is affected by diet, medications, systemic acid-base disturbances, and renal tubular function. pH may affect urinary stone formation. For example, urine pH below 6.0 may help reduce the tendency for calcium phosphate stones and pH greater than 6.0 may reduce the tendency for uric acid stone formation. Source: [facility] Current Interpretive Data was last revised on 2017 Protein, ur ql Trace Negative [facility] Glucose, ur ql Negative Negative [facility] Ketones, ur Negative Negative [facility] Bilirubin, ur Negative Negative [facility] Blood, ur Negative Negative [facility] Urobilinogen, ur <2.0 <2.0 mg/dL [facility] Nitrite, ur Negative Negative [facility] Leukocyte esterase, ur Negative Negative [facility] UA reflex comment Reflex conditions for microscopic UA and culture not met. [facility] Urine, clean voided 10/21/2024 12:16 AM CDT 10/21/2024 12:34 AM CDT Theresa Schumacher NP LAB MICROBIOLOGY - G ENERAL ORDERABLES Final Result [facility] [place] [address] * (ABNORMAL) Protime-INR (10/21/2024 12:16 AM CDT) PT 17.4(H) 9.7 - 13.0 sec INR 1.60(H) 0.90 - 1.20 [facility] Comment: Interpretive data Oral anticoagulant therapeutic ranges: Venous thromboembolism prophylaxis or treatment: 2.0-3.0 CARDIOLOGY Standard range: 2.0-3.0 High-intensity range: 2.5-3.5 Refer to indication-specific guidelines for appropriate target ranges for prosthetic heart valve replacement. Current interpretive data was last revised on 2019. Blood 10/21/2024 12:1 6 AM CDT 10/21/2024 12:43 AM CDT Narrative [facility] - 10/21/2024 1:03 AM CDT Baseline prior to rivaroxaban initiation Theresa Schumacher NP LAB BLOOD ORDERABLES Final Result ENRIQUE [facility] [place] [address] * X-ray chest 2 views (10/21/2024 12:07 AM CDT) Anatomical Region Laterality Modality Body, Chest N/A Computed Radiogr aphy 10/21/2024 6:16 AM CDT Impressions 10/21/2024 6:16 AM CDT Right internal jugular port catheter tip at superior cavoatrial junction. Normal heart size. Calcified granulomas again seen in left lung base. Trace pleural effusions and minimal atelectasis bilaterally in both posterior costophrenic angles on the lateral projection. No consolidation or other pulmonary disease to suggest pneumonia. No pneumothorax. Electronically signed by: Aubrey Grigsby M.D. Narrative 10/21/2024 6:16 AM CDT EXAMINATION: 2 view chest radiograph COMPARISON: 02/25/2023 Procedure Note Aubrey Grigsby MD - 10/21/2024 EXAMINATION: 2 view chest radiograph COMPARISON: 02/25/2023 IMPRESSION: Right internal jugular port catheter tip at superior cavoatrial junction. Normal heart size. Calcified granulomas again seen in left lung base. Trace pleural effusions and minimal atelectasis bilaterally in both posterior costophrenic angles on the lateral projection. No consolidation or other pulmonary disease to suggest pneumonia. No pneumothorax. Electronically signed by: Aubrey Grigsby M.D. Theresa Schumacher NP IMG XR PROCEDURES Fi nal Result * POC Blood Gas and Chemistries, Arterial - (10/20/2024 11:05 PM CDT) Lactate POC 0.9 0.7 - 2.0 mmol/L Blood 10/20/2024 11:0 5 PM CDT 10/20/2024 11:05 PM CDT Kalli Cox MD LAB POCT ORDERABLES - DEV ICE Final Result [facility] [place] [address] * eGFR (10/20/2024 10:38 PM CDT) eGFR 85 >=60 mL/min/1. 73 m2 [...] Current interpretive data was last reviewed 2021. Blood 10/20/2024 10:3 8 PM CDT 10/20/2024 11:23 PM CDT us Theresa Schumacher NP LAB BLOOD ORDERABLES Final [facility] [place] [address] * (ABNORMAL) Differential, auto (10/20/2024 10:38 PM CDT) Neutrophil abs 2.30 1.50 - 6.50 K/cumm Imm gran abs 0.02 0.00 - 0.10 K/cumm [facility] Lymphocyte abs 0.51(L) 0.80 - 3.30 K/cumm [facility] Monocyte abs 0.18(L) 0.20 - 0.80 K/cumm [facility] Eosinophil abs 0.01 0.00 - 0.50 K/cumm [facility] Basophil abs 0.00 0.00 - 0.10 K/cumm [facility] Neutrophil pct 76.1 % [facility] Comment: Interpretive Data Percent cell count reference ranges are not reported, since discordance with absolute values may lead to misinterpretation of CBC data. Current Interpretive Data was last revised on 2017. Imm gran pct 0.7 % [facility] Comment: Interpretive Data Percent cell count reference ranges are not reported, since discordance with absolute values may lead to misinterpretation of CBC data. Current Interpretive Data was last revised on 2017. Lymphocyte pct 16.9 % [facility] Comment: Interpretive Data Percent cell count reference ranges are not reported, since discordance with absolute values may lead to misinterpretation of CBC data. Current Interpretive Data was last revised on 2017. Monocyte pct 6.0 % [facility] Comment: Interpretive Data Percent cell count reference ranges are not reported, since discordance with absolute values may lead to misinterpretation of CBC data. Current Interpretive Data was last revised on 2017. Eosinophil pct 0.3 % [facility] Comment: Interpretive Data Percent cell count reference ranges are not reported, since discordance with absolute values may lead to misinterpretation of CBC data. Current Interpretive Data was last revised on 2017. Basophil pct 0.0 % [facility] Comment: Interpretive Data Percent cell count reference ranges are not reported, since discordance with absolute values may lead to misinterpretation of CBC data. Current Interpretive Data was last revised on 2017. Blood 10/20/2024 10:3 8 PM CDT 10/20/2024 11:22 PM CDT Theresa Schumacher BUILDING EQUIPMENT INSPECTOR LAB BLOOD ORDERABLES Final Result [facility] [place] [address] * Respiratory pathogen panel Nasopharyngeal (10/20/2024 10:38 PM CDT) Pathologist [facility] Influenza A RNA Not Detected Not Detected Influenza B RNA Not Detected Not Detected [facility] RSV RNA Not Detected Not Detected [facility] COVID-19 RNA Not Detected Not Detected [facility] Coronavirus 229E RNA Not Detected Not Detected [facility] Coronavirus HKU1 RNA Not Detected Not Detected [facility] Coronavirus NL63 RNA Not Detected Not Detected [facility] Coronavirus OC43 RNA Not Detected Not Detected [facility] Adenovirus DNA Not Detected Not Detected [facility] Metapneumovirus RNA Not Detected Not Detected [facility] Rhinovirus/Enterov irus RNA Not Detected Not Detected [facility] Parainfluenza 1 RNA Not Detected Not Detected [facility] Parainfluenza 2 RNA Not Detected Not Detected [facility] Parainfluenza 3 RNA Not Detected Not Detected [facility] Parainfluenza 4 RNA Not Detected Not Detected [facility] B. pertussis DNA Not Detected Not Detected [facility] B. parapertussis DNA Not Detected Not Detected [facility] C. pneumoniae DNA Not Detected Not Detected [facility] M. pneumoniae DNA Not Detected Not Detected [facility] Nasopharyngeal 10/20/2024 10 :38 PM CDT 10/20/2024 11:47 PM CDT Narrative [facility] - 10/21/2024 12:44 AM CDT Is the Patient experiencing symptoms consistent with COVID?->Yes Surveillance testing for transplant patient?->No Interpretive Data The [employer] FilmArray Respiratory Panel (RP2.1) assay is a multiplexed real-time PCR based nucleic acid test capable of simultaneous qualitative detection and identification of multiple respiratory viral and bacterial nucleic acids, including SARS Coronavirus 2 (the causative agent of COVID-19). The following bacteria, viruses and virus subtypes can be identified using the FilmArray RP2.1 assay: Bordetella pertussis, Bordetella parapertussis, Chlamydia pneumoniae, Mycoplasma pneumoniae, Adenovirus, SARS Coronavirus 2, seasonal coronaviruses (Coronavirus HKU1, Coronavirus NL63, Coronavirus 229E, and Coronavirus OC43), Influenza A, Influenza A subtype H1, Influenza A subtype H3, Influenza A subtype 2009 H1, Influenza B, Metapneumovirus, Parainfluenza 1, Parainfluenza 2, Parainfluenza 3, Parainfluenza 4, RSV, Rhinovirus/Enterovirus. Due to the genetic similarity between human Rhinovirus and Enterovirus, the FilmArray RP2.1 assay cannot reliably differentiate them. Coronavirus OC43 may cross-react with some isolates of Coronavirus HKU1. A dual positive result may be due to cross-reactivity or may indicate a co- infection. The detection and identification of specific viral and bacterial nucleic acids from individuals exhibiting signs and symptoms of a respiratory infection aids in the diagnosis of respiratory infection if used in conjunction with other clinical and epidemiological information. The results of this test should not be used as the sole basis for diagnosis, treatment, or other management decisions. Negative results in the setting of a respiratory illness may be due to infection with pathogens that are not detected by this test. Positive results do not rule out infection/co-infection with other organisms. The agent(s) detected by the FilmArray RP2.1 may not be the definite cause of disease. Additional testing (lab, imaging, etc.) may be necessary when evaluating a patient with possible respiratory tract infection. The FilmArray RP2.1 assay has FDA clearance for testing of BUILDING EQUIPMENT INSPECTOR swabs. The performance of additional specimen types has been assessed by the performing laboratory. The performance characteristics of this assay have been determined by [facility]. Current interpretive data was last revised on 22. Theresa Schumacher BUILDING EQUIPMENT INSPECTOR LAB MICROBIOLOGY - G ENERAL ORDERABLES Final Result [facility] Department [place] [address] * (ABNORMAL) CBC with auto differential (10/20/2024 10:38 PM CDT) WBC 3.02(L) 3.80 - 9.90 K/cumm Hgb 7.1(L) 11.9 - 15.5 g/dL [facility] Hct 21.9(L) 35.6 - 45.5 % [facility] Plt 124(L) 150 - 400 K/cumm [facility] MPV 10.5 9.1 - 12.3 fL [facility] RBC 2.46(L) 3.90 - 5.20 M/cumm [facility] MCV 89.0 81.3 - 96.4 fL [facility] MCH 28.9 27.1 - 33.3 pg [facility] MCHC 32.4 32.3 - 35.7 g/dL [facility] RDW CV 14.7 11.1 - 14.9 % [facility] RDW SD 47.4 35.7 - 48.1 fL [facility] NRBC abs 0.00 0.00 - 0.01 K/cumm [facility] Blood 10/20/2024 10:3 8 PM CDT 10/20/2024 11:22 PM CDT Theresa Schumacher NP LAB BLOOD ORDERABLES Final Result [facility] [place] [address] * Blood culture Blood (10/20/2024 10:38 PM CDT) Report Final Report: No growth Blood 10/20/2024 10:3 8 PM CDT 10/21/2024 12:22 AM CDT Narrative [facility] - 10/25/2024 7:01 AM CDT From a different site than #1. 1. Blood cultures are incubated for 4 days on a continuously monitored blood culture system. The first report of a negative culture is issued within 24 hours of receipt of the specimen in the laboratory. 2. Positive culture results are reported as soon as they are detected. 3. The most important factor for detection of microbes in the setting of bloodstream infection is the volume of blood submitted for culture. Failure to collect an optimal blood volume can result in false negative blood cultures. 4. For pediatric patients, the recommended blood volume to collect follows a weight based strategy. See the electronic test catalog for collection instructions. 5. For positive blood cultures, a rapid molecular test may be performed for organism identification using the [employer] ePlex blood culture identification panel for gram positive (BCID-GP) and gram negative (BCID-GN) organisms. This nucleic acid amplification test detects microbial DNA in positive blood culture broth. This assay has been cleared by the [place] Food and Drug Administration and its performance characteristics have been verified by the [facility] Microbiology Laboratory. For questions about this culture, contact the Microbiology Laboratory at [phone]. Interpretive data was last revised on 24. Theresa Schumacher NP LAB MICROBIOLOGY - G ENERAL ORDERABLES Final Result [facility] [place] [address] * Blood culture Blood (10/20/2024 10:38 PM CDT) Report Final Report: No growth Blood 10/20/2024 10:3 8 PM CDT 10/21/2024 12:12 AM CDT Narrative ENRIQUE [facility] - 10/25/2024 7:01 AM CDT 1. Blood cultures are incubated for 4 days on a continuously monitored blood culture system. The first report of a negative culture is issued within 24 hours of receipt of the specimen in the laboratory. 2. Positive culture results are reported as soon as they are detected. 3. The most important factor for detection of microbes in the setting of bloodstream infection is the volume of blood submitted for culture. Failure to collect an optimal blood volume can result in false negative blood cultures. 4. For pediatric patients, the recommended blood volume to collect follows a weight based strategy. See the electronic test catalog for collection instructions. 5. For positive blood cultures, a rapid molecular test may be performed for organism identification using the [employer] ePlex blood culture identification panel for gram positive (BCID-GP) and gram negative (BCID-GN) organisms. This nucleic acid amplification test detects microbial DNA in positive blood culture broth. This assay has been cleared by the [place] Food and Drug Administration and its performance characteristics have been verified by the [facility] Microbiology Laboratory. For questions about this culture, contact the Microbiology Laboratory at [phone]. Interpretive data was last revised on 24. Theresa Schumacher NP LAB MICROBIOLOGY - G ENERAL ORDERABLES Final Result [facility] [place] [address] * (ABNORMAL) Comprehensive metabolic panel (10/20/2024 10:38 PM CDT) Sodium 138 135 - 145 mmol/L Potassium, pl 3.6 3.3 - 4.9 mmol/L [facility] Chloride 104 97 - 110 mmol/L [facility] CO2 26 22 - 32 mmol/L [facility] Anion gap 8 2 - 15 mmol/L [facility] BUN 13 6 - 25 mg/dL [facility] Creatinine 0.74 0.60 - 1.10 mg/dL [facility] Glucose 100 70 - 199 mg/dL [facility] Comment: Interpretive Data Fasting glucose >/= 126 [...] Current interpretive data was last revised 2022. Calcium 8.7 8.5 - 10.3 mg/dL [facility] Bilirubin, total 0.7 0.1 - 1.2 mg/dL [facility] Protein, pl 5.2(L) 6.5 - 8.5 g/dL [facility] Albumin 2.8(L) 3.5 - 5.0 g/dL [facility] Alk phos 195(H) 40 - 130 Units/L [facility] ALT 13 7 - 45 Units/L [facility] AST 18 10 - 45 Units/L [facility] Blood 10/20/2024 10:3 8 PM CDT 10/20/2024 11:23 PM CDT Theresa Schumacher NP LAB BLOOD ORDERABLES Final Result Performing Organization Address City/[facility]/ZIP Co de Phone Number [facility] [place] [address] * eGFR (10/17/2024 10:06 AM CDT) eGFR [...] was last reviewed 2021. Testing performed by: [facility], [address] [place] [address] Blood 10/17/2024 10:0 6 AM CDT 10/17/2024 10:26 AM CDT us Kalli Cox MD LAB BLOOD ORDERABLES Gail l Result Performing Organization Address City/[facility]/ZIP Co de Phone Number [facility] [address] [place] [address] * Differential, auto (10/17/2024 10:06 AM CDT) Neutrophil abs 3.45 1.50 - 6.50 K/cumm Comment:Testing performed by : [facility] 2, [address] [place] [address] Imm gran abs 0.02 0.00 - 0.10 K/cumm [facility]ER [facility] Comment:Testing performed by : [place] [address], [address] [place] [address] Lymphocyte abs 1.10 0.80 - 3.30 K/cumm [facility] Comment:Testing performed by : [place] [address], [address] [place] [address] Monocyte abs 0.28 0.20 - 0.80 K/cumm [facility] Comment:Testing performed by : [place] [address], [address] [place] [address] Eosinophil abs 0.05 0.00 - 0.50 K/cumm [facility]ER [facility] Comment:Testing performed by : [place] [address], [address] [place] [address] Basophil abs 0.01 0.00 - 0.10 K/cumm [facility] Comment:Testing performed by : [place] [address], [address] [place] [address] Neutrophil pct 70.3 % [facility] Comment: Interpretive Data Percent cell count reference ranges are not reported, since discordance with absolute values may lead to misinterpretation of CBC data. Current Interpretive Data was last revised on 2017. Testing performed by: [facility] 2, [address] [place] [address] Imm gran pct 0.4 % [facility] Comment: Interpretive Data Percent cell count reference ranges are not reported, since discordance with absolute values may lead to misinterpretation of CBC data. Current Interpretive Data was last revised on 2017. Testing performed by: [place] [address], [address] [place] [address] Lymphocyte pct 22.4 % [facility] Comment: Interpretive Data Percent cell count reference ranges are not reported, since discordance with absolute values may lead to misinterpretation of CBC data. Current Interpretive Data was last revised on 2017. Testing performed by: [facility], [place] [facility], [address] [place] [address] Monocyte pct 5.7 % [facility]ER[facility]O [facility] Comment: Interpretive Data Percent cell count reference ranges are not reported, since discordance with absolute values may lead to misinterpretation of CBC data. Current Interpretive Data was last revised on 2017. Testing performed by: [facility], [place] [facility] 2, [address] [place] [address] Eosinophil pct 1.0 % CERMARCELO BETANCOURTWSTEVE Comment: Interpretive Data Percent cell count reference ranges are not reported, since discordance with absolute values may lead to misinterpretation of CBC data. Current Interpretive Data was last revised on 2017. Testing performed by: [facility], [place] [facility] 2, [address] [place] [address] Basophil pct 0.2 % CERM[facility]ELO BETANCOURTWSTEVE Comment: Interpretive Data Percent cell count reference ranges are not reported, since discordance with absolute values may lead to misinterpretation of CBC data. Current Interpretive Data was last revised on 2017. Testing performed by: [facility], [place] [facility] 2, [address] [place] [address] Blood 10/17/2024 10:0 6 AM CDT 10/17/2024 10:09 AM CDT us Moh'Maurisio Cox MD LAB BLOOD ORDERABLES Gail garcia Result [facility] [address] [facility]. [place] [address] * (ABNORMAL) CBC with auto differential (10/17/2024 10:06 AM CDT) WBC 4.91 3.80 - 9.90 K/cumm Comment:Testing performed by : [facility], [place] [facility] 2, [address] [place] [address] Hgb 9.0(L) 11.9 - 15.5 g/dL [facility] Comment:Testing performed by : [place] [address], [address], [place] [address] Hct 28.8(L) 35.6 - 45.5 % [facility] Comment:Testing performed by : [place] [address], [address] [place] [address] Plt 202 150 - 400 K/cumm [facility] Comment:Testing performed by : [place] [address], [address] [place] [address] MPV 9.2 9.1 - 12.3 fL [facility] Comment:Testing performed by : [place] [address], [address], [place] [address] RBC 3.15(L) 3.90 - 5.20 M/cumm [facility]ER [facility] Comment:Testing performed by : [place] [address], [address], [place] [address] MCV 91.4 81.3 - 96.4 fL [facility] Comment:Testing performed by : [place] [address], [address], [place] [address] MCH 28.6 27.1 - 33.3 pg [facility] Comment:Testing performed by : [place] [address], [address] [place] [address] MCHC 31.3(L) 32.3 - 35.7 g/dL [facility] Comment:Testing performed by : [facility] 2, [address] [place] [address] RDW CV 15.0(H) 11.1 - 14.9 % [facility] Comment:Testing performed by : [facility], [facility] 2, [address] [place] [address] RDW SD 50.7(H) 35.7 - 48.1 fL ENRIQUE TORRES Comment:Testing performed by : [facility], [facility], [address] [place] [address] ANC Prelim 3.45 1.50 - 6.50 K/cumm ENRIQUE TORRES Comment: Interpretive Data The rapid ANC is a preliminary automated count and may vary from the final ANC (Neut Abs) reported in the WBC differential that follows. Current interpretive data was last revised 2024. Testing performed by: [facility], [place] [facility] 2, [address] [place] [address] Blood 10/17/2024 10:0 6 AM CDT 10/17/2024 10:09 AM CDT [facility] Cox MD LAB BLOOD ORDERABLES Gail l Result [facility] [address]. [place] [address] * (ABNORMAL) Comprehensive metabolic panel (10/17/2024 10:06 AM CDT) Sodium 139 135 - 145 mmol/L Comment:Testing performed by : [facility], [address] [place] [address] Potassium, pl 4.0 3.3 - 4.9 mmol/L ENRIQUE TORRES Comment:Testing performed by : [facility], [address] [place] [address] Chloride 104 97 - 110 mmol/L ENRIQUE TORRES Comment:Testing performed by : [facility], [address] [place] [address] CO2 28 22 - 32 mmol/L ENRIQUE TORRES Comment:Testing performed by : [facility], [address] [place] [address] Anion gap 7 2 - 15 mmol/L [facility] Comment:Testing performed by : [facility], [address], [place] [address] BUN 15 6 - 25 mg/dL [facility] Comment:Testing performed by : [facility], [address], [place] [address] Creatinine 0.70 0.60 - 1.10 mg/dL [facility] Comment:Testing performed by : [facility], [address], [place] [address] Glucose 90 70 - 199 mg/dL CERNER [...] was last revised 2022. Testing performed by: [facility], [address], [place] [address] Calcium 8.8 8.5 - 10.3 mg/dL [facility] Comment:Testing performed by : [facility], [address], [place] [address] Bilirubin, total 0.6 0.1 - 1.2 mg/dL [facility] Comment:Testing performed by : [facility], [address], [place] [address] Protein, pl 5.8(L) 6.5 - 8.5 g/dL [facility] Comment:Testing performed by : [facility], [address], [place] [address] Albumin 3.3(L) 3.5 - 5.0 g/dL [facility] Comment:Testing performed by : [facility], [address], [place] [address] Alk phos 325(H) 40 - 130 Units/L [facility] Comment:Testing performed by : [facility], [address], [place] [address] ALT 29 7 - 45 Units/L ENRIQUE TORRES Comment:Testing performed by : [facility], [address], [place] [address] AST 27 10 - 45 Units/L ENRIQUE TORRES Comment:Testing performed by : [facility], [address], [place] [address] Blood 10/17/2024 10:0 6 AM CDT 10/17/2024 10:26 AM CDT [facility]Maurisio Cox MD LAB BLOOD ORDERABLES Gail l Result [facility] [address] [address]. Department of Laboratories [place] [id number] * eGFR (10/14/2024 8:30 AM CDT) eGFR [...] was last reviewed 2021. Testing performed by: [facility], [address], [place] [address] Blood 10/14/2024 8:30 AM CDT 10/14/2024 8:54 AM CDT Kalli Cox MD LAB BLOOD ORDERABLES Gail garcia Result [facility] [address] [facility]. [place] [address] * Differential, auto (10/14/2024 8:30 AM CDT) Neutrophil abs 3.00 1.50 - 6.50 K/cumm Comment:Testing performed by : [facility], [place] [facility] 2, [address] [place] [address] Imm gran abs 0.00 0.00 - 0.10 K/cumm CERMARCELO BJWCH Comment:Testing performed by : [facility] 2, [address] [place] [address] Lymphocyte abs 1.24 0.80 - 3.30 K/cumm CERMARCELO BJWCH Comment:Testing performed by : [facility] 2, [address] [place] [address] Monocyte abs 0.80 0.20 - 0.80 K/cumm CERMARCELO BJWCH Comment:Testing performed by : [facility] 2, [address] [place] [address] Eosinophil abs 0.12 0.00 - 0.50 K/cumm CERMARCELO BJWCH Comment:Testing performed by : [facility] 2, [address] [place] [address] Basophil abs 0.03 0.00 - 0.10 K/cumm CERMARCELO BJWCH Comment:Testing performed by : [facility] 2, [address] [place] [address] Neutrophil pct 57.8 % [facility]ERMARCELO [facility] Comment: Interpretive Data Percent cell count reference ranges are not reported, since discordance with absolute values may lead to misinterpretation of CBC data. Current Interpretive Data was last revised on 2017. Testing performed by: [facility], [place] [facility] 2, [address] [place] [address] Imm gran pct 0.0 % [facility] Comment: Interpretive Data Percent cell count reference ranges are not reported, since discordance with absolute values may lead to misinterpretation of CBC data. Current Interpretive Data was last revised on 2017. Testing performed by: [facility], [facility] 2, [address] [place] [address] Lymphocyte pct 23.9 % [facility] Comment: Interpretive Data Percent cell count reference ranges are not reported, since discordance with absolute values may lead to misinterpretation of CBC data. Current Interpretive Data was last revised on 2017. Testing performed by: [facility], [facility] 2, [address] [place] [address] Monocyte pct 15.4 % [facility] Comment: Interpretive Data Percent cell count reference ranges are not reported, since discordance with absolute values may lead to misinterpretation of CBC data. Current Interpretive Data was last revised on 2017. Testing performed by: [facility], [place] [facility] 2, [address] [place] [address] Eosinophil pct 2.3 % [facility] Comment: Interpretive Data Percent cell count reference ranges are not reported, since discordance with absolute values may lead to misinterpretation of CBC data. Current Interpretive Data was last revised on 2017. Testing performed by: [facility], [facility] 2, [address] [place] [address] Basophil pct 0.6 % [facility] Comment: Interpretive Data Percent cell count reference ranges are not reported, since discordance with absolute values may lead to misinterpretation of CBC data. Current Interpretive Data was last revised on 2017. Testing performed by: [facility], [place] [facility] 2, [address] [place] [address] Blood 10/14/2024 8:30 AM CDT 10/14/2024 8:33 AM CDT us Ibeth'Maurisio Cox MD LAB BLOOD ORDERABLES Gail garcia Result [facility] [address] [facility] of Laboratories [place], [place] [id number] * (ABNORMAL) CBC with auto differential (10/14/2024 8:30 AM CDT) WBC 5.19 3.80 - 9.90 K/cumm Comment:Testing performed by : [place] [address], [address] [place] [address] Hgb 8.8(L) 11.9 - 15.5 g/dL ENRIQUE BETANCOURTWCH Comment:Testing performed by : [place] [address], [address] [place] [address] Hct 27.5(L) 35.6 - 45.5 % ENRIQUE BETANCOURTW Comment:Testing performed by : [place] [address], [address] [place] [address] Plt 209 150 - 400 K/cumm ENRIQUE BETANCOURTW Comment:Testing performed by : [place] [address], [address] [place] [address] MPV 9.7 9.1 - 12.3 fL ENRIQUE BETANCOURTW Comment:Testing performed by : [address] [place] [address] RBC 3.04(L) 3.90 - 5.20 M/cumm ENRIQUE BETANCOURTWCH Comment:Testing performed by : [place] [address], [address] [place] [address] MCV 90.5 81.3 - 96.4 fL ENRIQUE BETANCOURTWCH Comment:Testing performed by : [place] [address], [address] [place] [address] MCH 28.9 27.1 - 33.3 pg CERMARCELO BETANCOURTWCH Comment:Testing performed by : [place] [address], [address] [place] [address] MCHC 32.0(L) 32.3 - 35.7 g/dL ENRIQUE TORRES Comment:Testing performed by : [facility], [facility] 2, [address] [place] [address] RDW CV 14.4 11.1 - 14.9 % ENRIQUE TORRES Comment:Testing performed by : [facility], [facility] 2, [address] [place] [address] RDW SD 47.6 35.7 - 48.1 fL ENRIQUE TORRES Comment:Testing performed by : [facility], [facility] 2, [address] [place] [address] ANC Prelim 3.00 1.50 - 6.50 K/cumm ENRIQUE TORRES Comment: Interpretive Data The rapid ANC is a preliminary automated count and may vary from the final ANC (Neut Abs) reported in the WBC differential that follows. Current interpretive data was last revised 2024. Testing performed by: [facility], [facility] 2, [address] [place] [address] Blood 10/14/2024 8:30 AM CDT 10/14/2024 8:33 AM CDT [facility]aur[facility]io Cox MD LAB BLOOD ORDERABLES Gail l Result ENRIQUE BETANCOURTWCH [address] [facility]. [place] [address] * (ABNORMAL) Cancer antigen 19-9 (10/14/2024 8:30 AM CDT) CA 19-9 ag 46.8(H) 0.0 - 35.0 units/mL Comment: Interpretive Data The Sree CA 19-9 assay procedure was used. Results from different manufacturers or methods may not be comparable. Serial testing should be performed using the same method. Testing performed by: [facility], [address] [place] [address]., [address] Blood 10/14/2024 8:30 AM CDT 10/14/2024 10:46 AM CDT Kalli Cox MD LAB BLOOD ORDERABLES Gail l Result ENRIQUE BETANCOURTCH [address] [facility]. [facility] [place] [address] * TSH (10/14/2024 8:30 AM CDT) Thyroid Stimulating Hormone 0.52 0.30 - 4.20 mcIUnit/mL Comment:Testing performed by : [facility], [address] [place] [address] Blood 10/14/2024 8:30 AM CDT 10/14/2024 8:54 AM CDT Kalli Cox MD LAB BLOOD ORDERABLES Gail l Result Performing Organization Address City/[facility]/ZIP Co de Phone Number ENRIQUE WCH [address] [facility]. [facility] [place] [address] * (ABNORMAL) T4, free (10/14/2024 8:30 AM CDT) Free T4 1.95(H) 0.90 - 1.70 ng/dL Comment:Testing performed by : [facility], [address] [place] [address] Blood 10/14/2024 8:30 AM CDT 10/14/2024 8:54 AM CDT Kalli Cox MD LAB BLOOD ORDERABLES Gail l Result [facility] [address] [facility]. [facility] [place] [address] * (ABNORMAL) Comprehensive metabolic panel (10/14/2024 8:30 AM CDT) Sodium 138 135 - 145 mmol/L Comment:Testing performed by : [facility], [address], [place] [address] Potassium, pl 3.7 3.3 - 4.9 mmol/L C[facility]ER [facility] Comment:Testing performed by : [facility], [address], [place] [address] Chloride 103 97 - 110 mmol/L CERNER [facility] Comment:Testing performed by : [facility], [address], [place] [address] CO2 23 22 - 32 mmol/L C[facility]ER [facility] Comment:Testing performed by : [facility], [address], [place] [address] Anion gap 12 2 - 15 mmol/L CERNER [facility] Comment:Testing performed by : [facility], [address], [place] [address] BUN 14 6 - 25 mg/dL C[facility]ER [facility] Comment:Testing performed by : [facility], [address], [place] [address] Creatinine 0.74 0.60 - 1.10 mg/dL C[facility]ER [facility] Comment:Testing performed by : [facility], [address], [place] [address] Glucose 94 70 - 199 mg/dL CERNER [...] was last revised 2022. Testing performed by: [facility], [address], [place] [address] Calcium 9.1 8.5 - 10.3 mg/dL CERNER [facility] Comment:Testing performed by : [facility], [address], [place] [address] Bilirubin, total 0.6 0.1 - 1.2 mg/dL CERNER [facility] Comment:Testing performed by : [facility], [address], [place] [address] Protein, pl 5.7(L) 6.5 - 8.5 g/dL CERNER [facility] Comment:Testing performed by : [facility], [address], [place] [address] Albumin 3.4(L) 3.5 - 5.0 g/dL CERNER [facility] Comment:Testing performed by : [facility], [address], [place] [address] Alk phos 387(H) 40 - 130 Units/L CERNER [facility] Comment:Testing performed by : [facility], [address], [place] [address] ALT 37 7 - 45 Units/L CERNER [facility] Comment:Testing performed by : [facility], [address], [place] [address] AST 22 10 - 45 Units/L C[facility]ER [facility] Comment:Testing performed by : [facility], [address], [place] [address] Blood 10/14/2024 8:30 AM CDT 10/14/2024 8:54 AM CDT Ibeth'Maurisio Cox MD LAB BLOOD ORDERABLES Gail l Result [facility] [address] [place] [address] * IR Port Placement Chest > 5 Years (10/10/2024 10:16 AM CDT) Anatomical Region Laterality Modality Chest N/A X-Ray Angiograph y 10/10/2024 10:3 1 AM CDT Impressions 10/10/2024 10:31 AM CDT Successful chest wall port placement. PLAN: The catheter is ready for immediate use. Please note that a power injectable port was placed. When treatment is completed, removal can be scheduled by calling [facility] - [phone] [facility] - [phone] Electronically signed by: Feliciano Martinez PA-C Narrative [...] was obtained. Prior to beginning the procedure, Ashley Protocol was used to confirm the patient's [...] was obtained. Prior to beginning the procedure, Ashley Protocol was used to confirm the patient's [...] completed, removal can be scheduled by calling [facility] - [phone] [facility] - [phone] Electronically signed by: Feliciano Martinez PA-C [facility]Maurisio Cox MD IMG IR PROCEDURES [...] obtained. The study was interpreted on the [employer] workstation. The mean liver SUV (reported for manufacturing quality technician purposes) is 1.7. The total scanned area [...] obtained. The study was interpreted on the Robbie workstation. The mean liver SUV (reported for manufacturing quality technician purposes) is 1.7. The total scanned area [...] it. Electronically signed by: Johan Krishna MD [facility]D Genevieve Cox MD IMG PET PROCEDURES Final Result [...] was last reviewed 2021. Testing performed by: [facility], [address] [place] [address] Blood 10/07/2024 4:00 PM CDT 10/07/2024 4:36 PM CDT Moh'Maurisio Cox MD LAB BLOOD ORDERABLES Gail l Result [facility] [address] [facility]. [place] [address] * (ABNORMAL) Differential, auto (10/07/2024 4:00 PM CDT) Neutrophil abs 4.52 1.50 - 6.50 K/cumm Comment:Testing performed by : [facility], [facility] 2, [address] [place] [address] Imm gran abs 0.01 0.00 - 0.10 K/cumm ENRIQUE BETANCOURTWSTEVE Comment:Testing performed by : [facility], [place] [facility] 2, [address] [place] [address] Lymphocyte abs 0.48(L) 0.80 - 3.30 K/cumm CERNER BJWCH Comment:Testing performed by : [facility], [facility] 2, [address], [place] [address] Monocyte abs 0.37 0.20 - 0.80 K/cumm CERNER BJWCH Comment:Testing performed by : [facility], [facility] 2, [address] [place] [address] Eosinophil abs 0.01 0.00 - 0.50 K/cumm CERNER BJWCH Comment:Testing performed by : [facility], [facility] 2, [address] [place] [address] Basophil abs 0.01 0.00 - 0.10 K/cumm CERNER BJWCH Comment:Testing performed by : [facility], [facility] 2, [address] [place] [address] Neutrophil pct 83.6 % CERNER BJW[facility] Comment: Interpretive Data Percent cell count reference ranges are not reported, since discordance with absolute values may lead to misinterpretation of CBC data. Current Interpretive Data was last revised on 2017. Testing performed by: [facility], [place] [facility] 2, [address] [place] [address] Imm gran pct 0.2 % CERNER B[facility] Comment: Interpretive Data Percent cell count reference ranges are not reported, since discordance with absolute values may lead to misinterpretation of CBC data. Current Interpretive Data was last revised on 2017. Testing performed by: [facility], [facility] 2, [address] [place] [address] Lymphocyte pct 8.9 % CERNER BJWCH Comment: Interpretive Data Percent cell count reference ranges are not reported, since discordance with absolute values may lead to misinterpretation of CBC data. Current Interpretive Data was last revised on 2017. Testing performed by: [facility], [place] [facility] 2, [address] [place] [address] Monocyte pct 6.9 % CERNER BJWCH Comment: Interpretive Data Percent cell count reference ranges are not reported, since discordance with absolute values may lead to misinterpretation of CBC data. Current Interpretive Data was last revised on 2017. Testing performed by: [facility] 2, [address] [place] [address] Eosinophil pct 0.2 % ENRIQUE TORRES Comment: Interpretive Data Percent cell count reference ranges are not reported, since discordance with absolute values may lead to misinterpretation of CBC data. Current Interpretive Data was last revised on 2017. Testing performed by: [facility] 2, [address] [place] [address] Basophil pct 0.2 % ENRIQUE TORRES Comment: Interpretive Data Percent cell count reference ranges are not reported, since discordance with absolute values may lead to misinterpretation of CBC data. Current Interpretive Data was last revised on 2017. Testing performed by: [facility] 2, [address] [place] [address] Blood 10/07/2024 4:00 PM CDT 10/07/2024 4:01 PM CDT [facility] MD LAB BLOOD ORDERABLES Gail l Result ENRIQUE BETANCOURTWCH [address] [facility]. [place] [address] * (ABNORMAL) CBC with auto differential (10/07/2024 4:00 PM CDT) WBC 5.40 3.80 - 9.90 K/cumm Comment:Testing performed by : [facility] 2, [address] [place] [address] Hgb 9.0(L) 11.9 - 15.5 g/dL ENRIQUE TORRES Comment:Testing performed by : [facility] 2, [address] [place] [address] Hct 28.7(L) 35.6 - 45.5 % CERNER BJWCH Comment:Testing performed by : [facility], [facility], [address] [place] [address] Plt 185 150 - 400 K/cumm CERNER BJWCH Comment:Testing performed by : [facility] 2, [address] [place] [address] MPV 9.1 9.1 - 12.3 fL CERNER BJWCH Comment:Testing performed by : [place] [address], [address], [place] [address] RBC 3.06(L) 3.90 - 5.20 M/cumm CERNER BJWCH Comment:Testing performed by : [place] [address], [address], [place] [address] MCV 93.8 81.3 - 96.4 fL CERMARCELO BJWCH Comment:Testing performed by : [place] [address], [address], [place] [address] MCH 29.4 27.1 - 33.3 pg CERNER BJWCH Comment:Testing performed by : [address], [place] [address] MCHC 31.4(L) 32.3 - 35.7 g/dL CERNER BJWCH Comment:Testing performed by : [place] [address] [place] [address] RDW CV 15.4(H) 11.1 - 14.9 % CERNER BJWCH Comment:Testing performed by : [place] [address], [address], [place] [address] RDW SD 53.6(H) 35.7 - 48.1 fL CERNER BJWCH Comment:Testing performed by : [facility] 2, [address], [place] [address] ANC Prelim 4.52 1.50 - 6.50 K/cumm CERNER BJWCH Comment: Interpretive Data The rapid ANC is a preliminary automated count and may vary from the final ANC (Neut Abs) reported in the WBC differential that follows. Current interpretive data was last revised 2024. Testing performed by: [facility], [place] [facility] 2, [address] [place] [address] Blood 10/07/2024 4:00 PM CDT 10/07/2024 4:01 PM CDT [facility] LAB BLOOD ORDERABLES Gail l Result Performing Organization Address [facility] Co de Phone Number [facility] [address]. [place] [address] * (ABNORMAL) Cancer antigen 19-9 (10/07/2024 4:00 PM CDT) CA 19-9 ag 79.3(H) 0.0 - 35.0 units/mL Comment: Interpretive Data The Sree CA 19-9 assay procedure was used. Results from different manufacturers or methods may not be comparable. Serial testing should be performed using the same method. Testing performed by: [facility], [facility]5 [facility], [place]., [address] Blood 10/07/2024 4:00 PM CDT 10/07/2024 6:08 PM CDT [facility] Cox MD LAB BLOOD ORDERABLES Gail l Result Performing Organization Address [facility] Co de Phone Number [facility] [address] [address] [facility] [address] * (ABNORMAL) Protime-INR (10/07/2024 4:00 PM CDT) PT 14.2(H) 9.7 - 13.0 sec Comment:Testing performed by : [facility], [address], [place] [address] INR 1.31(H) 0.90 - 1.20 ENRIQUE TORRES Comment: Interpretive data Oral anticoagulant therapeutic ranges: Venous thromboembolism prophylaxis or treatment: 2.0-3.0 CARDIOLOGY Standard range: 2.0-3.0 High-intensity range: 2.5-3.5 Refer to indication-specific guidelines for appropriate target ranges for prosthetic heart valve replacement. Current interpretive data was last revised on 2019. Testing performed by: [facility], [address] [place] [address] Blood 10/07/2024 4:00 PM CDT 10/07/2024 4:36 PM CDT us Moh'Maurisio M Th Kenny BROWN LAB BLOOD ORDERABLES Gail garcia Result [facility] [address]. [place] [address] * (ABNORMAL) Comprehensive metabolic panel (10/07/2024 4:00 PM CDT) Sodium 141 135 - 145 mmol/L Comment:Testing performed by : [facility], [address], [place] [address] Potassium, pl 4.2 3.3 - 4.9 mmol/L ENRIQUE TORRES Comment:Testing performed by : [facility], [address] [place] [address] Chloride 105 97 - 110 mmol/L ENRIQUE TORRES Comment:Testing performed by : [facility], [address] [place] [address] CO2 26 22 - 32 mmol/L ENRIQUE BETANCOURTWSTEVE Comment:Testing performed by : [facility], [address], [place] [address] Anion gap 11 2 - 15 mmol/L ENRIQUE TORRES Comment:Testing performed by : [facility], [address], [place] [address] BUN 13 6 - 25 mg/dL ENRIQUE BETANCOURTWSTEVE Comment:Testing performed by : [facility], [address], [place] [address] Creatinine 0.71 0.60 - 1.10 mg/dL CERNER BJWCH Comment:Testing performed by : [facility], [address], [place] [address] Glucose 106 70 - 199 mg/dL CERNER [...] was last revised 2022. Testing performed by: [facility], [address], [place] [address] Calcium 9.6 8.5 - 10.3 mg/dL CERNER BJWCH Comment:Testing performed by : [facility], [address], [place] [address] Bilirubin, total 1.8(H) 0.1 - 1.2 mg/dL CERNER BJWCH Comment:Testing performed by : [facility], [address], [place] [address] Protein, pl 6.2(L) 6.5 - 8.5 g/dL CERNER BJWCH Comment:Testing performed by : [facility], [address], [place] [address] Albumin 3.6 3.5 - 5.0 g/dL CERNER BJWCH Comment:Testing performed by : [facility], [address], [place] [address] Alk phos 794(H) 40 - 130 Units/L CERNER BJWCH Comment:Testing performed by : [facility], [address], [place] [address] ALT 107(H) 7 - 45 Units/L CERNER BJWCH Comment:Testing performed by : [facility], [address], [place] [address] AST 240(H) 10 - 45 Units/L ENRIQUE BRADFORDCH Comment:Testing performed by : [facility], [address] [facility], [place] [address] Blood 10/07/2024 4:00 PM CDT 10/07/2024 4:36 PM CDT Kalli Cox MD LAB BLOOD ORDERABLES Gail l Result [facility] [address] [address]. [place] [address] * [id number] (10/07/2024 3:52 PM CDT) [facility] MSI-HIGH NOT DETECTED 10/14/2024 7:47 PM CDT [facility] TMB 4.75 mut/Mb 10/14/2024 7:47 PM CDT [facility] HRD Not detected 10/14/2024 7:47 PM CDT [facility] TUMOR FRACTION 0.4% 10/14/2024 7:47 PM CDT [facility] Chip TET2 Q644* (0.5%) 10/14/2024 7:47 PM CDT [facility] Blood specimen (specimen) Venous blood specimen / Unknown 10/07/2024 3:52 PM CDT 10/09/2024 11:07 AM CDT Narrative This result has genomic variants that were not included in this document. Kalli Cox MD LAB GENETIC TESTING Final Result [facility] [address] [place] [address], [facility] [phone] [facility] [address] [place] [address] * POCT lipid panel (09/27/2024 1:34 PM CDT) [facility] Cholesterol, POC 132 <200 MG/DL HDL, POC [...] Biopsy) 09/19/2024 1:07 PM CDT Narrative PATHOLOGY [facility] - 09/20/2024 2:24 PM CDT EPIC results best viewed via link to PDF [facility] Suha Monahan [facility] of [place] [address] Note to Patients: This report may contain [...] SURGICAL PATHOLOGY REPORT FINAL Patient Name: SUSANNAH CAMARGO Gender: F : 1950 (Age: 73) Address: [address] [place] [address] Hospital #: [id number] Taken:09/19/2024 Received:09/19/2024 Reported: 09/20/2024 Patient Type: [facility] ED Service: Emergency Location: [facility] ED Physician(s): David Brewer M.D. Leonidas Rubio M.D. Daisy Mercado MD Diagnosis: Pancreas, neck, mass, fine needle biopsy - Rare atypical glands/single cells and focal perineural invasion, compatible with invasive pancreatic adenocarcinoma - Scant tumor cellularity; likely insufficient for further molecular testing [facility]/09/20/2024 14:24 By this signature, I attest that [...] cm in aggregate). Labeled A1. Jar 0. [facility]/09/19/2024 15:19 PA(s): Evelyn Cunningham By this signature, I attest that the above diagnosis is based upon my personal examination of the slides(and/or other material). Addenda/Procedures The performance characteristics of some immunohistochemical stains, fluorescence in-situ hybridization tests and immunophenotyping by flow cytometry cited in this report (if any) were determined by the Surgical Pathology and Flow Cytometry Departments at [facility] as part of an ongoing quality systems manager program and in compliance with federally [...] Surgical Pathology and Flow Cytometry Departments of [facility]. It has not been cleared or approved by the U. S. Food and Drug Administration. IMAGES AND SCANNED DOCUMENTS, IF INCLUDED, ONLY VIEWABLE IN PDF VERSION OF REPORT us David Brewer MD LAB PATHOLOGY ORDERABLES [facility] Result PATHOLOGY [facility] 3rd Floor [place], [place] [phone] * Upper EUS (09/19/2024 12:32 PM CDT) Anatomical Region Laterality Modality Other Narrative Procedure Note David Brewer MD - 09/19/2024 12:32 PM CDT GI ENDOSCOPY [facility] Patient Name: Susannah Camargo Procedure Date: 09/19/2024 12:32 PM Date of : 1950 Admit Type: Outpatient Age: 73 Gender: Female Attending MD: David Brewer M.D. Room: [facility] ENDOSCOPY ROOM 1 Note [...] consent was obtained.The Olympuscurved linear array therapeutic [id number] was introduced through the mouth, and advanced [...] Three passes were madewith the 22 gauge [employer] needle using a transgastric approach. A stylet [...] following this procedure please call my officeat [phone] ([phone]) to speak to my nurses. After hours and evenings please call [phone] speak to the GI fellow airport operations duty manager. Please tell themthat Dr. Brewer did your procedure and that your were instructed to have the fellow call me or thephysician covering for me to discuss the management of your condition. If you have an urgent problem, please goto the nearest emergency room and have the ER doctorcall my office during the day or [facility] transfer ([phone]) center after hours and weekends to arrange admission or transfer to our facility. - Call my nurse Arlyn Segovia RN in the GI office at [phone] for your final pathology results in 7 [...] using the same method. Testing performed by: [facility], [facility], [place]., [address] Blood 09/17/2024 10:3 2 AM CDT 09/17/2024 7:30 PM CDT us Ana RODRIGUES LAB BLOOD ORDERABLES Gail garcia Result ENRIQUE BJWCH [address] [facility]. [place] [address] * (ABNORMAL) CEA (09/17/2024 10:32 AM CDT) CEA 5.2(H) <=5.0 ng/mL Comment: Interpretive Data Reference Range: Non-Smokers: < or = 3.0 ng/mL Some Smokers may have elevated levels, usually < 5.0 ng/mL The Sree CEA assay procedure was used. Results from different manufacturers or methods may not be comparable. Serial testing should be performed using the same method. Testing performed by: [facility], [facility]5 [place]., [address] Blood 09/17/2024 10:3 2 AM CDT 09/17/2024 7:30 PM CDT Ana RODRIGUES LAB BLOOD ORDERABLES Gail garcia Result [facility] BJ[facility] [address] [facility]. [place] [address] * CT Chest W and Abdomen Pelvis [...] Biliary Duct (09/06/2024 1:42 PM CDT) Narrative [facility] - 09/06/2024 1:53 PM CDT The images from this study are not interpreted by Radiology. Please refer to the physician's procedure / OR operative note. David Brewer MD IMG FLUOROSCOPY PROCEDURES Final Result [facility] * Surgical pathology (09/06/2024 1:25 PM CDT) Lymph node, needle biopsy 09/06/2024 1:25 PM CDT 09/10/2024 11:26 AM CDT Narrative 09/11/2024 3:14 PM CDT [address] [address] Tele: Roxana Gordon MD - [employer] Plant Superintendent Note to Patients: This report may contain [...] details. SURGICAL PATHOLOGY REPORT Patient Name: SUSANNAH CAMARGO Address: [address] [place] [address] Gender: F : 1950 (Age: 73) Service: Gastro Location: [facility], Hospital #: [id number] Patient [place] [facility] [place] Taken: 09/06/2024 Received 09/10/2024 Reported: 09/11/2024 Physician(s): Puma Wagner MD Jason E. Barnett, M.D. DIAGNOSIS: Pancreas, head, fine needle biopsies: - Focal atypical glands (see description) [facility]/09/11/2024 15:14 Examining Pathologist: Alek Flowers M.D. Report Reviewed and Electronically Signed By Alek Flowers M.D. SPECIMEN TYPE: A: PANCREAS HEAD MASS CLINICAL IMPRESSION AND HISTORY: Suspected mass in pancreas on CT scan GROSS DESCRIPTION: Received in formalin in a single container with the patient's name, SUSANNAH CAMARGO labeled pancreas head mass and contains multiple red-brown irregular tissue fragments measuring 2.2 x 0.3 x 0.1 cm in aggregate. Due to the color and size of the specimen, eosin is used. The specimen is filtered and submitted entirely in cassette A1. [facility] MICROSCOPIC DESCRIPTION: Microscopic examination shows multiple fragments of pancreatic parenchyma. There are focal slightly irregular glands with minimal nuclear atypia. An immunostain for p53 shows wild type staining in these glands. There is no definitive malignancy identified. Clinical correlation and follow-up is needed. Clerical Data Follows A; [address], [address], [address] <CR>, [address] REPORT IMAGES AND/OR SCANNED DOCUMENTS ONLY VIEWABLE IN PDF FORMAT The immunohistochemical test(s) cited in this report, if any, was developed and its performance characteristics determined by [facility] Pathology Department. It has not been cleared or approved by the U.S. Food and Drug Administration. The FDA has determined that such clearance or approval is not necessary. This test is used for clinical purposes. It should not be regarded as investigational or for research. [facility] Laboratory is certified under the Clinical Laboratory [...] part or completely in the following laboratories: [facility], [facility] [address], [address] [place] [place] [address]. us David Brewer MD LAB PATHOLOGY ORDERABLES Fi nal Result * ERCP (09/06/2024 1:03 PM CDT) Anatomical Region Laterality Modality Other Narrative Procedure Note David Brewer MD - 09/06/2024 1:03 PM CDT ENDOSCOPY LAB Patient Name: Susannah Camargo Procedure Date: 09/06/2024 1:03 PM Admit Type: [...] The patienttolerated the procedure well. Findings: The boiler engineer film was normal. The esophagus was successfully [...] following this procedure please call my officeat [phone] ([phone]) to speak to my nurses. After hours and evenings please call [phone] speak to the GI fellow airport operations duty manager. Please tell themthat Dr. Brewer did your procedure and that your were instructed to have the fellow call me or thephysician covering for me to discuss the management of your condition. If you have an urgent problem, please goto the nearest emergency room and have the ER doctorcall my office during the day or [facility] transfer ([phone]) center after hours and weekends to arrange [...] PM CDT ENDOSCOPY LAB Patient Name: Susannah Camargo Procedure Date: 09/06/2024 1:02 PM Admit Type: Outpatient Room: [facility] Date of : 1950 Instrument Name: ROSEMARY [id number] Gender: Female Note Status: Finalized Procedure: Upper EUS Indications: Suspected mass in pancreas on CT scan Providers: David Brewer M.D. Referring MD: Daisy Mercado M.D., Leonidsa Rubio M.D. Medicines: Monitored Anesthesia Care Complications: [...] following this procedure please call my officeat [phone] ([phone]) to speak to my nurses. After hours and evenings please call [phone] speak to the GI fellow airport operations duty manager. Please tell themthat Dr. Brewer did your procedure and that your were instructed to have the fellow call me or thephysician covering for me to discuss the management of your condition. If you have an urgent problem, please goto the nearest emergency room and have the ER doctorcall my office during the day or [facility] transfer ([phone]) center after hours and weekends to arrange admission or transfer to our facility. - Call my nurse Arlyn Segovia RN in the GI office at [phone] for your final results in 7 days. [...] Bilirubin, direct 4.2(H) 0.1 - 0.3 mg/dL [facility] Protein, pl 5.5(L) 6.5 - 8.5 g/dL [facility] Albumin 3.0(L) 3.5 - 5.0 g/dL [facility] Alk phos 1,250(H) 40 - 130 Units/L [facility] ALT 143(H) 7 - 45 Units/L [facility] AST 190(H) 10 - 45 Units/L [facility] Blood 09/06/2024 10:5 0 AM CDT 09/06/2024 10:50 AM CDT Narrative [facility] - 09/06/2024 11:32 AM CDT STAT pre procedure lab same day us Geoffrey Shaver MD LAB BLOOD ORDERABLES Final Result ENRIQUE [facility] [address] [place] [address] * CT Body Outside Consult (09/05/2024 1:04 [...] images may or may not represent the hughes source data set and thus may contain changes that may lower the accuracy of this second-opinion interpretation. Electronically signed by: Mickey Martinez M.D. Narrative 09/05/2024 2:33 PM CDT EXAMINATION: RADIOLOGY CONSULTATION ON OUTSIDE IMAGING STUDY STUDY INITIALLY PERFORMED: 08/28/2024 at [facility]. TYPE OF STUDY: Multiple CT images of [...] IMAGING STUDY STUDY INITIALLY PERFORMED: 08/28/2024 at [facility]. TYPE OF STUDY: Multiple CT images of [...] images may or may not represent the hughes source data set and thus may contain changes that may lower the accuracy of this second-opinion interpretation. Electronically signed by: Brandi CoxD. David Brewer MD IMG CT PROCEDURES Final Res ult from Last 3 Months Insurance [employer] MEDICARE ADVANTAGE [facility] MEDIC[facility] ADVANTAGE Member Subscriber Plan / Payer (Ef fective 2022-Present) Name:Susannah Camargo Relation to Subscriber:Self Name:Susannah Camargo Bing Payer ID:[id number] (NAIC) Type:[facility] MED[facility] Address: [place] [id number] [facility] MEDIC[facility] ADVANTAGE Advance Directives For more information, please contact: [phone] * Full Code (Latest Code Status on File) Date Activated Date Inactivated Comments 10/21/2024 4:39 PM 10/25/2024 7:36 PM * Full Code Date Activated Date Inactivated Comments 10/10/2024 10:28 AM 10/11/2024 4:55 AM * Full Code Date Activated Date Inactivated Comments 09/19/2024 12:06 PM 09/19/2024 6:42 PM * Full Code Date Activated Date Inactivated Comments 09/06/2024 12:07 PM 09/06/2024 8:17 PM * Full Code Date Activated Date Inactivated Comments 02/25/2023 1:22 PM 02/28/2023 7:54 PM Care Teams Kiln Packer Relationship Specialty Start Date End Date Leonidas Rubio MD [address] [place] [address] PCP - General Family Medicine 09/05/24 Arianna Persaud PA [address] [place] [address] Physician [employer] Open Stack Administrator 08/29/24 David Brewer MD [address] [place] [address] Referring Physician Gastroenterology 09/23/24 Kalli Cox MD [address] [place] [address] Consulting Physician Medical Oncology 09/23/24 Daisy Mercado MD [address] [facility] [id number] [place] [address] Consulting Physician General Surgery 09/23/24 Kalli Cox MD [address] [place] [address] Consulting Physician Medical Oncology 10/28/24
--- OUTSIDE RECORDS SUMMARY | 2024-11-14 04:11 | XMS_ITS | Patient Health Record ---
Author Organization [facility] Address [address] [place] [address] Care Team Providers Care Automobile Tire Builder Name Role Phone Lucho BROWN, Linette Primary Care Provider Francie Nidhi Alejandre Unavailable [phone] Maegan POPE, Sussy Unavailable Lissette Colby Unavailable [phone] Johnathon Dick Unavailable [phone] Allergies No Known Allergies Results Component Value Reference Range Notes [employer] [facility] Profil e (Not yet reviewed by provider) Interpretation: Performing Lab:[facility] (CLIA#: [id number]), [address] [place] [address], Director - Adelina Jensen Notes/Report: These tests were developed and their performance characteristics determined by [facility]. They have not been cleared or approved by the US Food and Drug Administration. Certifying Housecalls Nurse: Shalom Nicholson (Remote [id number]) Analyzed at [facility] (CLIA#: [id number]) - [address] [place] [address] - Sharemilker: Adelina Ontiveros Cital+Escital Ur CMP >59014 >=50 ng/mL COMPLIA NT: Test result is [...] expected with prescribed drug. Tramadol Ur CMP >21781 >=100 ng/mL COMPLIANT: T est result is consistent and expected with prescribed drug. Pregabalin Ur CMP <5 >=5 mcg/mL NON-COMPLI ANT: Test result indicates patient may not be taking drug prescribed. Ethyl Sulfate Ur CMP 18895 >=200 ng/mL PRESENT : Test result is consistent with alcohol exposure within 72 hours of specimen collection. For additional information, please consult the Clinical Team at or email [email or web address] BioDetect EXPECTED Test result is consistent with [...] >=100 ng/mL POSI TIVE Tramadol Ur Cfm-mCnc >52929 >=100 ng/mL POSITIV E N-Desmethyl Tram Ur Cfm-mCnc >01742 >=100 ng/mL POSITIVE Creat Ur-mCnc 275.9 20 - 370 mg/dL NORMAL Creatinine and pH are performed for specimen validity and not diagnostic purposes. pH Ur 6.04 4.5 - 9.0 NORMAL Creatinine and pH are performed for specimen validity and not diagnostic purposes. Alcohol Metabolites Ur Ql Cfm >=200 >=200 ng/mL POSITIVE Ethyl sulfate Ur Cfm-mCnc 80776 >=200 ng/mL PO SITIVE Busprione Ur Ql Cfm <25 >=25 ng/mL NONE DET ECTED SSRI Profile Ur Ql Cfm >=50 >=50 ng/mL POSIT NILSA Citalopram Ur Cfm-mCnc >73824 >=50 ng/mL POSIT NILSA Norcitalopram Ur-mCnc >04205 >=50 ng/mL POSITI VE SN Reuptake Inhibitors Ur Ql <5 >=5 ng/mL NONE DETECTED Synthetic Stimulants Ur Ql Cfm <1 >=1 ng/mL NONE DETECTED BAKERY SALES CLERK Not Otherwise Specified Ur Ql Cfm <1 >=1 ng/mL NONE DETECTED Synthetic Cannabinoids Ur Ql Cfm <1 >=1 ng/m L NONE DETECTED Hallucinogens/Dissociatives Ur Ql Cfm <1 >=1 ng/mL NONE DETECTED Eviscerator Benzodiazepines Ur Ql Cfm <1 >=1 ng/mL NONE DETECTED Eviscerator Opioids Ur Ql Cfm <1 >=1 ng/mL N ONE DETECTED THC Ur Ql Scn <20 >=20 ng/mL NONE DETECTED [employer] Profil e Reviewed date:03/04/2024 07:46:44 AM Interpretation: Performing Lab:[facility] (CLIA#: [id number]), [address] [place] [address], Director - Adelina Jensen Notes/Report: Certifying Housecalls Nurse: Nicolas Carlson (Remote [id number]) These tests were developed and their performance characteristics determined by [facility]. They have not been cleared or approved by the US Food and Drug Administration. Analyzed at [facility] (CLIA#: [id number]) - [address] [place] [address] - Sharemilker: Adelina Ontiveros Cital+Escital Ur CMP >42957 >=50 ng/mL COMPLIA NT: Test result is [...] form, was detected. Ethyl Sulfate Ur CMP 54176 >=200 ng/mL PRESENT : Test result is consistent with alcohol exposure within 72 hours of specimen collection. For additional information, please consult the Clinical Team at or email [email or web address] BioDetect EXPECTED Test result is consistent with [...] >=200 ng/mL POSITIVE Ethyl sulfate Ur Cfm-mCnc 69576 >=200 ng/mL PO SITIVE Busprione Ur Ql Cfm <25 >=25 ng/mL NONE DET ECTED Tizanidine Ur Ql Cfm >=25 >=25 ng/mL POSITIV E Tizanidine Ur Cfm-mCnc 157 >=25 ng/mL POSIT NILSA Dehydrotizanidine Ur Cfm-mCnc 17 >=5 ng/mL POSITIVE SSRI Profile Ur Ql Cfm >=50 >=50 ng/mL POSIT NILSA Norcitalopram Ur-mCnc >40161 >=50 ng/mL POSITI VE Synthetic Stimulants Ur Ql Cfm <1 >=1 ng/mL NONE DETECTED BAKERY SALES CLERK Not Otherwise Specified Ur Ql Cfm <1 >=1 ng/mL NONE DETECTED Synthetic Cannabinoids Ur Ql Cfm <1 >=1 ng/m L NONE DETECTED Hallucinogens/Dissociatives Ur Ql Cfm <1 >=1 ng/mL NONE DETECTED Eviscerator Benzodiazepines Ur Ql Cfm <1 >=1 ng/mL NONE DETECTED Eviscerator Opioids Ur Ql Cfm <1 >=1 ng/mL N ONE DETECTED THC Ur Ql Scn <20 >=20 ng/mL NONE DETECTED [employer] [facility] Profil e (Not yet reviewed by provider) Interpretation: Performing Lab:[facility] (CLIA#: [id number]), [address] [place] [address], Director - Adelina Jensen Notes/Report: These tests were developed and their performance characteristics determined by [facility]. They have not been cleared or approved by the US Food and Drug Administration. Certifying Housecalls Nurse: Dustin Quinn (Remote [id number]) Analyzed at [facility] (CLIA#: [id number]) - [address] [place] [address] - Sharemilker: Adelina Ontiveros Buprenorphine Ur CMP 46 >=1 [...] expected with prescribed drug. Tramadol Ur CMP >27428 >=100 ng/mL COMPLIANT: T est result is [...] >=100 ng/mL POSITIVE N-Desmethyl Tram Ur Cfm-mCnc >24041 >=100 ng/mL POSITIVE Creat Ur-mCnc 19.5 20 [...] Ql Cfm <1 >=1 ng/mL NONE DETECTED BAKERY SALES CLERK Not Otherwise Specified Ur Ql Cfm <1 >=1 ng/mL NONE DETECTED Synthetic Cannabinoids Ur Ql Cfm <1 >=1 ng/m L NONE DETECTED Hallucinogens/Dissociatives Ur Ql Cfm <1 >=1 ng/mL NONE DETECTED Eviscerator Benzodiazepines Ur Ql Cfm <1 >=1 ng/mL NONE DETECTED Eviscerator Opioids Ur Ql Cfm <1 >=1 ng/mL [...] 40 MG Oral; Duration: 90 Days Active NIFEdipine ER 30 MG Oral; Duration: 90 Days Active tiZANidine HCl 2 MG TAKE 1 TABLET BY MOUTH THREE TIMES DAILY; Duration: 30 Active Citalopram Hydrobromide 40 MG TAKE 1 [...] W/U Status Risk Notes Problem Cervical spondylosis (827792447) Cervical spondylosis (M47.812) Active confirmed Problem Hypercholesterolemia (04142727) Hypercholesterolemia (E78.00) Active confirmed Problem Long-term current us e of drug therapy (514054901) detention use of drug (Z79.899) Active confirmed Problem Neck pain (30010395) Cervical sp ine pain (M54.2) Active confirmed Problem Hypertension (60958256) Hypertension (I10) 2009 Active confirmed Problem Low back pain (448401174) Low back pain (M54.50) Active confirmed Problem Atrial fibrillation (91579989) Atrial fibrillation (I48.91) Active confirmed Problem Long-term current us e of anticoagulant (799797945) Anticoagulated (Z79.01) Active confirmed Vital Signs Heart Rate 61 /min 08/20/2024 Height-cm 160.02 cm 09/26/2024 Blood pressure diastolic 89 mm Hg 08/20/2024 Weight-kg 63.05 kg 09/26/2024 Height 5ft 3in in 09/26/2024 Blood pressure systolic 142 mm Hg 08/20/2024 Weight 139 lbs 09/26/2024 BMI 24.62 kg/m2 09/26/2024 Encounters Encounter Location Date Provider Diagnosis [facility] [address] [place] [address] [address] [place] [address] 11/21/2023 Lissette Colby Cervical spine pain M54.2 ; DDD (degenerative disc disease), lumbar M51.36 and 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 Z79.899 Telehealth [facility] [address] [place] [address] [address] [place] [address] 12/26/2023 Lissette Colby Cervical spine pain M54.2 ; DDD (degenerative disc disease), lumbar M51.36 ; Cervical spondylosis M47.812 and 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 Z79.899 [facility] [address] [facility] [address] [place] [address] 01/11/2024 Lissette Colby Cervical spine pain M54.2 ; Cervical spondylosis M47.812 ; DDD (degenerative disc disease), lumbar M51.36 ; Low back pain M54.50 ; Left knee pain M25.562 and detention use of drug Z79.899 [facility] [address] [facility] [address] [place] [address] 02/26/2024 Lissette Colby Cervical spondylosis M47.812 ; Cervical spine pain M54.2 ; Low back pain M54.50 ; On 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 drug therapy Z79.899 and Screening for substance abuse Z13.89 Telehealth [facility] [address] [place] [address] [address] [place] [address] 03/25/2024 Sussy Issa Cervical spondylosis M47.812 ; Cervical spine pain M54.2 ; Low back pain M54.50 and 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 Z79.899 [facility] [address] [facility] [address] [place] [address] 04/25/2024 Lissette Colby Cervical spondylosis M47.812 ; Cervical spine pain M54.2 ; Low back pain M54.50 and 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 Z79.899 Telehealth [facility] [address] [facility] [address] [place] [address] 05/09/2024 Lissette Colby Cervical spine pain M54.2 ; Cervical spondylosis M47.812 and On correction drug therapy Z79.899 [facility] [address] [facility] [address] [place] [address] 06/18/2024 Lissette Colby Cervical spondylosis M47.812 ; Cervical spine pain M54.2 and 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 Z79.899 Telehealth [facility] [address] [place] [address] [address] [place] [address] 07/16/2024 Lissette Colby Cervical spine pain M54.2 ; Low back pain M54.50 ; Cervical spondylosis M47.812 and 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 Z79.899 [facility] [address] [place] [address] 08/20/2024 Lissette Colby Cervical spondylosis M47.812 ; Cervical spine pain M54.2 ; Low back pain M54.50 and detention use of drug Z79.899 Telehealth [facility] [address] [place] [address] 09/12/2024 Lissette Colby Cervical spine pain M54.2 ; Cervical spondylosis M47.812 ; Hypertension I10 ; Pancreatic neoplasm D49.0 and detention use of drug Z79.899 [facility] [address] [place] [address] 09/26/2024 Johnathon Mayelin Pancreatic carcinoma C25.9 ; Cervical spondylosis M47.812 ; Cervical spine pain M54.2 ; Low back pain M54.50 ; detention use of drug Z79.899 ; Hypertension I10 ; detention use of opioid Z79.891 ; Hypercholesterolemia E78.00 ; Anticoagulated Z79.01 and Atrial fibrillation I48.91 [facility] [address] [facility] [address] [place] [address] 11/21/2023 Nidhi Dick [facility] [address] [place] [address] 11/27/2023 Nidhi Dick [facility] [address] [place] [address] 12/26/2023 Nidhi Dick [facility] [address] [place] [address] 01/11/2024 Nidhi Dick [facility] [address] [place] [address] 01/25/2024 Johnathon Dick [facility] [address] [place] [address] 02/26/2024 Nidhi Dick [facility] [address] [place] [address] 03/25/2024 Nidhi Mayelin [facility] [address] [place] [address] 04/25/2024 Nidhi Mayelin [facility] [address] [place] [address] 05/09/2024 Nidhi Mayelin [facility] [address] [place] [address] 06/18/2024 Nidhi Mayelin [facility] [address] [place] [address] 07/16/2024 Nidhi Mayelin [facility] [address] [place] [address] 08/20/2024 Nidhi Mayelin [facility] [address] [place] [address] 09/12/2024 Johnathon Mayelin [facility] [address] [place] [address] 09/19/2024 Nidhi Mayelin [facility] [address] [place] [address] 09/26/2024 Johnathon Mayelin [facility] [address] [place] [address] 09/27/2024 Johnathon Mayelin [facility] [address] [place] [address] 10/03/2024 Johnathon Mayelin Assessments Encounter Date Diagnosis [...] Cervical spine pain (ICD-10 - M54.2) 06/18/2024 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 use of kike g (ICD-10 - Z79.899) 05/09/2024 On 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 drug therapy (ICD-10 - Z79.899) 04/25/2024 Cervical spine pain (ICD-10 - M54.2) 03/25/2024 Low back pain (ICD-1 0 - M54.50) 02/26/2024 Low back pain (ICD-1 0 - M54.50) 01/11/2024 DDD (degenerative di sc disease), lumbar (ICD-10 - M51.36) 12/26/2023 Cervical spondylosis (ICD-10 - M47.812) 11/21/2023 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 use of kike g (ICD-10 - Z79.899) 02/26/2024 On correction drug therapy (ICD-10 - Z79.899) 12/26/2023 detention use of kike g (ICD-10 - Z79.899) 03/25/2024 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 use of kike g (ICD-10 - Z79.899) 04/25/2024 Low back pain (ICD-1 0 - M54.50) 08/20/2024 Low back pain (ICD-1 0 - M54.50) 07/16/2024 detention use of kike g (ICD-10 - Z79.899) 09/12/2024 Pancreatic neoplasm (ICD-10 - D49.0) 01/11/2024 Low back pain (ICD-1 0 - M54.50) 09/26/2024 detention use of kike g (ICD-10 - Z79.899) 09/26/2024 Hypertension (ICD-10 - I10) 09/12/2024 detention use of kike g (ICD-10 - Z79.899) 04/25/2024 detention use of kike g (ICD-10 - Z79.899) 08/20/2024 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 use of kike g (ICD-10 - Z79.899) 01/11/2024 Left knee pain (ICD- 10 - M25.562) 02/26/2024 Screening for substa nce abuse (ICD-10 - Z13.89) 01/11/2024 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 use of kike g (ICD-10 - Z79.899) 09/26/2024 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 use of opi oid (ICD-10 - Z79.891) [...] 06/18/2024 Synthetic Stimulants 02/26/2024 Synthetic Stimulants 09/26/2024 Eviscerator Benzodiazepines 06/18/2024 Eviscerator Benzodiazepines 09/26/2024 Eviscerator Benzodiazepines 02/26/2024 Synthetic Cannabinoids 02/26/2024 Synthetic Cannabinoids 09/26/2024 Synthetic Cannabinoids 06/18/2024 Eviscerator Opioids 09/26/2024 Eviscerator Opioids 02/26/2024 Eviscerator Opioids 06/18/2024 Hallucinogens/Dissociatives 02/26/2024 Hallucinogens/Dissociatives 06/18/2024 Hallucinogens/Dissociatives 09/26/2024 BAKERY SALES CLERK Other 09/26/2024 BAKERY SALES CLERK Other 06/18/2024 BAKERY SALES CLERK Other 02/26/2024 Marijuana - Urine 02/26/2024 Marijuana [...] Insured Coverage Start Date Coverage End Date [facility] [address] [address] [place] [address] [id number] Susannah Camargo Self - patient is the insured Medical (General) History Medical History History ICD Code hyperlipidemia hypertension Atrial fibrillation Surgical History Surgery Date(Month/Year) B TKR B THR oophorectomy gastric sleeve 03/2020 Hospitalization History Reason Date(Month/Year) no hospitalizations since prior visit
--- OUTSIDE RECORDS SUMMARY | 2024-11-14 04:11 | XMS_ITS ---
Author Organization [facility] Address [address] [place] [address] Care Team Providers Care Spring Former Hand Name Role Phone Arianna Persaud Unavailable + [phone] Leonidas Rubio MD Primary Care Provider David Brewer MD Unavailable Hvaen Cox M Unavailable Daisy Mercado MD Unavailable [phone] Haven Cox M Th Unavailable Active Problems Problem Noted Date Diagnosed Date [...] Hgb. - pelvis US pending - outpatient lighting designer follow up Assessment & Plan (10/24/2024 1:44 PM CDT): Reports recent vaginal spotting when wiping. Stable Hgb. - pelvis US - outpatient lighting designer follow up Assessment & Plan (10/23/2024 3:54 PM CDT): Reports recent vaginal spotting when wiping. Stable Hgb. - pelvis US - outpatient lighting designer follow up Moderate malnutrition 10/22/2024 Left upper [...] onc c/s - continue home Creon - PT/OT/TIME SIGNAL WIRER and RD consult for falls and dysphagia [...] onc c/s - continue home Creon - PT/OT/TIME SIGNAL WIRER and RD consult for falls and dysphagia [...] onc c/s - continue home Creon - PT/OT/TIME SIGNAL WIRER and RD consult for falls and dysphagia Assessment & Plan (10/21/2024 7:27 PM CDT): Dx 09/2024 on gemcitabine (last 10/15/2024). Chronic abdominal pain with reported mechanical falls over past week. Given weight loss with malignancy and weight gain with anasarca, patient high risk for sarcopenia. Continue oncology management as well as therapy evaluations as below. - continue home morphine ER and PRN - [facility] consult - continue home Creon - PT/OT/TIME SIGNAL WIRER and RD consult for falls and dysphagia Pancreatic mass 09/04/2024 Elevated liver function tests 09/04/2024 Intractable pain 02/25/2023 Dizziness 11/07/2022 Mixed anxiety and depressive disorder 06/21/2022 Assessment & Plan (06/21/2022 7:25 PM FILM PROCESSOR): Worsening after of her mother in 04/2022. [...] opium Assessment & Plan (06/21/2022 7:16 PM FILM PROCESSOR): Ongoing for approximately 1 week after finishing a course of cefdinir for UTI. No more urinary symptoms or abdominal pain. No acute findings on exam. Will order CDiff test. Advised on Bowel rest: push fluids, bland high fiber diet. Continue immodium if needed. Vulvovaginitis 06/20/2022 Assessment & Plan (06/21/2022 7:17 PM FILM PROCESSOR): S/p cefdinir course for UTI. Denies discharge or genital lesions. exam deferred per pt request. Rxd Diflucan as directed. Use mild non-fragrant soaps/lotions. Recurrent UTI 06/08/2022 Assessment & Plan (06/08/2022 2:35 PM FILM PROCESSOR): Currently on Abx for treatment. Patient to [...] hypotension Assessment & Plan (06/21/2022 7:12 PM FILM PROCESSOR): BP stable in office today on current therapy. Continue current regimen and low salt diet. Stay hydrated. Assessment & Plan (06/08/2022 2:36 PM FILM PROCESSOR): Chronic and mildly elevated. Goal < 130/80. [...] elsewhere Assessment & Plan (06/08/2022 2:35 PM FILM PROCESSOR): Chronic and stable. 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 with art sales consultant Assessment & Plan (12/23/2021 12:10 PM [...] 1 5, Cycle 1 - Planned for 12/02/2024) Next Day (Day 1, Cycle 2 - Planned for 12/16/2024) albumin-bound PACLItaxel (ABRAXANE)dexAMETHasone (DECADRON)gemcitabine (GEMZAR)gemcitabine (GEMZAR) IVPB [...] Automatic Entry Manual Entr y Fluoro Time 5.3 minutes 5.3 minutes 0 minutes Air kerma at the reference point (Ka,r) 76.7 mGy 7 6.7 mGy 0 mGy DLP 790 mGycm 790 mGycm 0 mGycm
--- OUTSIDE RECORDS SUMMARY | 2024-11-14 04:11 | XMS_ITS | Clinical Summary ---
Author Organization [facility] Address [address] [place] [address] Care Team Providers Care Powder Expert Name Role Phone Aury Joseph RN Unavailable [phone] Dar Stinson MD Unavailable [phone] Linette Yepez MD Primary Care Provider + Source Comments [facility],non-owned Affiliates and Associated Physician Practices is amultiple site organization consisting of ambulatory clinics and hospital sitesin [place], [place], [place] and [place]. This disclosure is being madepursuant to the Care Everywhere program and may not contain all information available regarding this patient. 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 [employer] Not on file Not on file Not on file Last Filed Vital Signs Vital Sign Reading Time Taken Comments Blood Pressure 106/74 06/16/2021 10:41 AM PLANT AND EQUIPMENT WORKER Pulse 60 06/16/2021 10:41 AM PLANT AND EQUIPMENT WORKER Temperature 36.2 C (97.2 F) 06/16/2021 10:41 AM PLANT AND EQUIPMENT WORKER Respiratory Rate 20 06/16/2021 10:41 AM PLANT AND EQUIPMENT WORKER Oxygen Saturation 97% 06/16/2021 10:41 AM PLANT AND EQUIPMENT WORKER Inhaled Oxygen Concentration - - Weight 72.6 kg (160 lb) 06/16/2021 10:41 AM PLANT AND EQUIPMENT WORKER Height 160 cm (5' 3) 06/16/2021 10:41 AM PLANT AND EQUIPMENT WORKER Body Mass Index 28.34 06/16/2021 10:41 AM PLANT AND EQUIPMENT WORKER Plan of Treatment Health Maintenance Due [...] MEDICARE AWV CALENDAR YEAR 2024 INFLUENZA VACCINE (#1) 2024 01/15/2015, 2008 Respiratory Syncytial Virus (RSV) Vaccine Pt: or [...] < 140/90 Blood Pressure 106/74(2021 10:41 AM PLANT AND EQUIPMENT WORKER) Nae Montanez MA Medical Devices Implanted Type Area Oncology Rep Specialist Device Identifier Shelf Expiration Date Model / Serial / Lot Shell Coat 3hole 54mm Implanted:Qty: 1 on 11/21/2013 by Francis Cortes MD at [facility] Right: Hip [employer] 08/16/2023 [id number] / / [id number] Linr Acetab Refl Xlpe 0deg 36mm X 54mm Implanted:Qty: 1 on 11/21/2013 by Francis Cortes MD at [facility] Right: Hip [employer] 10/15/2023 [id number] / / [id number] Spherical Head Screw 6.5mm Cancellous Implanted:Qty: 1 on 11/21/2013 by Francis Cortes MD at [facility] Right: Hip [employer] 05/17/2023 [id number] / / [id number] Standard Offset Fixed Neck Stikitite Coated Stem Feoral Coponent Implanted:Qty: 1 on 11/21/2013 by Francis Cortes MD at [facility] Right: Hip [employer] 06/14/2023 [id number] / / [id number] 03/30 Taper Femoral Head Implanted:Qty: 1 on 11/21/2013 by Francis Cortes MD at [facility] Right: Hip [employer] 12/14/2022 [id number] / / [id number] Bill Only H1 Uncem Metal Or Ceramic Implanted:Qty: 1 on 11/21/2013 by Francis Cortes MD at [facility] [employer] H1 BILL ONLY [...] 1:06 PM CDT Narrative Resulting Agency Comment [facility] [address] [id number] Feliciano Oliver MD LAB - CHEMISTRY ORDERABLES Fin al Result [facility] ACCOUNT BILL [address] [place] [address] * MAMMO SCREENING DIGITAL IMAGE BILAT (09/09/2014 [...] patient. [facility] utilizes [employer] as a reminder system to notify patients of their next recommended mammogram. Narrative 09/10/2014 5:09 PM CDT EXAMINATION: Digital screening mammogram on 09/09/2014. Computer assisted detection was utilized. PRIOR: Mammogram from [facility] in 09/28/2006. FINDINGS: Breast parenchymal density: The [...] offers HCV Ab w/Reflex to Verification test #[id number]. Blood specimen (specimen) BLOOD SPECIMEN / Unknown 08/09/2013 8:53 AM CDT 08/09/2013 12:57 PM CDT Narrative Resulting Agency Comment [facility] [address] [id number] Feliciano Oliver MD LAB - CHEMISTRY ORDERABLES Fin al Result [facility] ACCOUNT BILL [address] [place] [address] from Last 3 Months or Most Recently Relevant to Health Maintenance Insurance MANAGED MEDICARE ADV MANAGED MEDICARE ADV Advance Directives * Full Code (Latest Code Status on File) Date Activated Date Inactivated Comments 11/21/2013 12:38 PM 11/24/2013 6:31 PM * Full Code Date Activated Date Inactivated Comments 02/18/2009 10:26 AM 02/22/2009 1:32 AM Care Teams Powder Expert Relationship Specialty Start Date End Date Linette Yepez MD [address] [place] [address] PCP - General Family Medicine 01/09/20 Aury Joseph, RN Search Marketing Coordinator 11/22/13 [place] [address] [address] Orthopedic Surgery 12/27/13
--- OUTSIDE RECORDS SUMMARY | 2024-11-14 04:11 | XMS_ITS | Clinical Summary ---
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 Take 1 tablet (20 mg total) by mouth daily 30 tablet 2 025 2025 Active al & mag hydroxide with simethicone-diphe nhydramine-lidoca ine (MAGIC MOUTHWASH) suspension [id number]: Pancreatic adenocarcinoma (HCC) Swish and swallow 10-15 mL every 4 (four) hours as needed (prevention and treatment of chemotherapy- induced mouth sores) 480 mL 3 Active diphenoxylate-atr opine (LOMOTIL) 2.5-0.025 mg per tabletIndications :diarrhea Take 1 tablet by mouth 4 (four) times a day as needed for diarrhea 90 tablet 025 2024 Active potassium chloride ER 20 mEq CR tabletIndications :Pancreatic adenocarcinoma (HCC) TAKE 1 TABLET(20 MEQ) BY MOUTH DAILY 90 tablet Active morphine (MSIR) 30 mg tabletIndications :Pancreatic [...] use with self cath) 50 each 3 025 Active Eclipse Syringe 3 mL 25 gauge [...] mouth daily for 7 days 7 tablet 2024 Discontinued(R eorder) pancrelipase (Zenpep) 40,000-126,000- 168,000 unit per capsuleIndication s:exocrine pancreatic insufficiency Take 3 capsules by mouth 3 (three) times a day with meals 270 capsule 2024 Discontinued(R eorder) pancrelipase (Zenpep) 20,000 units of lipase per capsule Take 1 capsule by mouth as needed for with snacks 60 capsule 1 2024 Discontinued morphine ER (MS CONTIN) 15 mg 12 hr tabletIndications :severe chronic pain requiring long-term opioid treatment Take 1 tablet (15 mg total) by mouth 2 (two) times a day 60 tablet 025 2024 Discontinued morphine (MSIR) 15 mg tabletIndications :Pain Take 1 tablet (15 mg total) by mouth every 4 (four) hours as needed for pain 120 tablet 2024 Discontinued(R eorder) pancrelipase (Zenpep) 20,000 units of lipase per capsule Take 1 capsule by mouth as needed for with snacks 60 capsule 1 2024 Discontinued pancrelipase (Zenpep) 20,000 units of lipase per capsuleIndication s:exocrine pancreatic insufficiency Take 1 capsule by mouth as needed for with snacks (up to 6 snacks per day) 2024 Discontinued(R eorder) morphine (MSIR) 15 mg tabletIndications :Pancreatic adenocarcinoma (HCC) Take 1 tablet (15 mg total) by mouth every 4 (four) hours as needed for pain 120 tablet 2024 Discontinued(D uplicate order) pancrelipase (Zenpep) 20,000 [...] Hgb. - pelvis US pending - outpatient motor and controls tester follow up Assessment & Plan (10/24/2024 1:44 PM CDT): Reports recent vaginal spotting when wiping. Stable Hgb. - pelvis US - outpatient motor and controls tester follow up Assessment & Plan (10/23/2024 3:54 PM CDT): Reports recent vaginal spotting when wiping. Stable Hgb. - pelvis US - outpatient motor and controls tester follow up Moderate malnutrition 10/22/2024 Left upper [...] onc c/s - continue home Creon - PT/OT/VARNISH REMOVER and RD consult for falls and dysphagia [...] onc c/s - continue home Creon - PT/OT/VARNISH REMOVER and RD consult for falls and dysphagia [...] onc c/s - continue home Creon - PT/OT/VARNISH REMOVER and RD consult for falls and dysphagia [...] Oncology consult - continue home Creon - PT/OT/VARNISH REMOVER and RD consult for falls and dysphagia Pancreatic mass 09/04/2024 Elevated liver function tests 09/04/2024 Intractable pain 02/25/2023 Dizziness 11/07/2022 Mixed anxiety and depressive disorder 06/21/2022 Assessment & Plan (06/21/2022 7:25 PM LEASE PICKER): Worsening after of her mother in 04/2022. [...] opium Assessment & Plan (06/21/2022 7:16 PM LEASE PICKER): Ongoing for approximately 1 week after finishing a course of cefdinir for UTI. No more urinary symptoms or abdominal pain. No acute findings on exam. Will order CDiff test. Advised on Bowel rest: push fluids, bland high fiber diet. Continue immodium if needed. Vulvovaginitis 06/20/2022 Assessment & Plan (06/21/2022 7:17 PM LEASE PICKER): S/p cefdinir course for UTI. Denies discharge or genital lesions. exam deferred per pt request. Rxd Diflucan as directed. Use mild non-fragrant soaps/lotions. Recurrent UTI 06/08/2022 Assessment & Plan (06/08/2022 2:35 PM LEASE PICKER): Currently on Abx for treatment. Patient to [...] hypotension Assessment & Plan (06/21/2022 7:12 PM LEASE PICKER): BP stable in office today on current therapy. Continue current regimen and low salt diet. Stay hydrated. Assessment & Plan (06/08/2022 2:36 PM LEASE PICKER): Chronic and mildly elevated. Goal < 130/80. [...] elsewhere Assessment & Plan (06/08/2022 2:35 PM LEASE PICKER): Chronic and stable. 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 with sales and marketing assistant Assessment & Plan (12/23/2021 12:10 PM [...] Date Type Department Care Team Description 11/14/19 11:30 AM CDT Home Care Visit [address] [place] [address] Fawad Anderson LCSW ASSEMBLER INSULATOR INITIAL EVAL 11/13/19 10:30 AM CDT Home Care Visit [address] [place] [address] Edison Lopez RN SN HOME VISIT 11/13/19 10:07 AM CDT - 11/13/19 11:59 PM CDT Hospital Encounter [facility] [address] [place] [address] Dysuria Discharge Disposition: Discharge to home or self care 11/13/19 9:00 AM CDT Office Visit [facility] Obstetrics and Gynecology [address] [facility] 7th Floor [address] [place] [phone] Jackie Szymanski MD Dysuria (Primary Dx); Vaginal atrophy; Uterine prolapse; Urinary retention 11/13/19 Home Care Visit [address] [place] [address] Fawad Anderson LCSW CASE COMMUNICATION 11/13/19 Home Care Visit [address] [place] [address] Edison Lopez, AUSTEN CASE COMMUNICATION 11/12/19 10:00 AM CDT Office Visit [facility] Oncology [address] [facility] [address] [place] [phone] Kalli Cox MD Pancreatic adenocarcinoma (HCC) (Primary Dx); Vaginal spotting 11/12/19 9:00 AM CDT Clinical Support [facility] at [facility] [address] [place] [address] Pancreatic adenocarcinoma (HCC) 11/12/19 Telephone [facility] Oncology [facility] Floor 6 [place] [phone] Lissette Ortiz, AUSTEN 11/09/19 Documentation [facility] [address] [place] [address] Ivet Domingo NP 11/09/19 Telephone [facility] Oncology [address] [place] [address] Floor 6 [place] [phone] Lissette Ortiz, AUSTEN 11/08/19 Home Care Visit [address] [place] [address] Shlipi Eng, PT CASE COMMUNICATION 11/06/19 12:30 PM CDT - 11/06/19 11:59 PM CDT Hospital Encounter [facility] Radiology Echo Lab [address] [place] [address] Pancreatic adenocarcinoma (HCC); Bilateral lower extremity edema Discharge Disposition: Discharge to home or self care 11/06/19 25 Telephone [facility] Oncology [address] [facility] Floor 6 [place] [address] Lissette Ortiz, AUSTEN 11/06/19 25 Telephone [facility] Oncology [address] [facility] [address] [place] [phone] Talia Serna CMA 11/05/19 12:30 PM CDT Home Care Visit [place] [address] [address] [place] [address] Edison Lopez, AUSTEN SN OASIS START OF CARE 11/05/19 Plan of Care Documentation [address] [place] [address] 11/02/19 25 Telephone [facility] [address] [place] [address] 3rd Floor [address] [place] [phone] Wesley Sanchez, RN 11/02/19 25 Telephone [facility] [address] [place] [address] 3rd Floor [address] [place] [phone] Wesley Sanchez, RN 11/01/19 25 Telephone [facility] Oncology [facility] Floor 1, [address] [place] [phone] Edison [place], AUSTEN 11/01/19 25 Orders Only [facility] Oncology [facility] Floor 1, [address] [place] [phone] Edison [place], AUSTEN 11/01/19 25 Telephone [facility] [address] [facility] [address] [place] [address] Ashley Tello, RN 11/01/19 Telephone [facility] [address] [facility] [address] [place] [address] Ashley Tello RN 10/29/19 10:15 AM CDT Office Visit [facility] Oncology [address] [facility] [address] [place] [address] Kalli Cox MD Pancreatic adenocarcinoma (HCC) (Primary Dx); Bilateral lower extremity edema 10/29/19 9:15 AM CDT Clinical Support [facility] [address] [facility] [place] [address] Pancreatic adenocarcinoma (HCC) 10/29/19 Documentation [facility] Oncology [address] [facility] [address] [place] [address] Katt Rios LCSW 10/26/19 Orders Only [address] [address] Kalli Cox MD Vaginal spotting (Primary Dx) 10/24/19 2:17 PM CDT - 10/24/19 11:59 PM CDT Hospital Encounter [facility] Radiology 1 [place] [address] Discharge Disposition: Discharge to home or self care 10/23/19 3:25 PM CDT Ancillary Procedure [facility] Vascular Lab IP 1 [facility] [address] [place] [address] 10/22/19 3:30 PM CDT - 10/26/19 3:25 PM CDT Hospital Encounter [address] [address] Kalli Cox MD Tapiavala, Shaili Jayshil, MD [...] Disposition: Discharge to home or self care 10/22/19 12:00 PM CDT Ancillary Procedure [facility] Vascular Lab IP 1 [facility] [address] [place] [address] 10/21/19 11:16 PM CDT - 10/21/19 11:59 PM CDT Hospital Encounter [facility] [address] [place] [address] Discharge Disposition: Discharge to home or self care 10/21/19 Telephone [facility] Oncology [address] [place] [address] Floor 5 [place] [address] Jamee Fine NP 10/20/19 Telephone [facility] Oncology [address] [place] [address] Floor 6 [place] [address] 10/18/19 10:45 AM CDT Infusion [facility] at [address] [address] Dehydration (Primary Dx); Pancreatic adenocarcinoma (HCC) 10/18/19 9:45 AM CDT Lab [facility] at [address] [address] Pancreatic adenocarcinoma (HCC) 10/17/19 Telephone [facility] Oncology [address] [place] [address] Floor 5 [place] [address] Lissette Ortiz, AUSTEN 10/16/19 10:00 AM CDT Infusion [facility] at [address] [address] Pancreatic adenocarcinoma (HCC) (Primary Dx) 10/16/19 25 Documentation [facility] at [address] [place] [address] Billie Harry, WALTER 10/16/19 25 Telephone [facility] Oncology [facility] Floor 6 [place] [address] Kalli Cox MD 10/16/19 25 Documentation [facility] Oncology [address] [place] [address] [address] [place] [address] Katt Rios, METALLURGICAL OR MATERIALS TECHNICIAN 10/16/19 25 Orders Only [facility] Oncology [address] [place] [address] Floor 5 [place] [address] Lissette Ortiz, AUSTEN Pancreatic adenocarcinoma (HCC) (Primary Dx) 10/15/19 25 7:30 AM CDT Clinical Support [facility] [address] [place] [place] [address] Pancreatic adenocarcinoma (HCC) 10/15/19 25 Orders Only [facility] Oncology [address] [place] [address] Floor 5 [place] [address] Lissette Ortiz RN Pancreatic adenocarcinoma (HCC) (Primary Dx) 10/15/19 25 Documentation [facility] at [address] [place] [address] Billie Harry, WALTER 10/15/19 25 Documentation [facility] Oncology [address] [place] [address] [address] [place] [address] Katt Rios, METALLURGICAL OR MATERIALS TECHNICIAN 10/11/19 25 8:50 AM CDT - 10/11/19 25 11:59 PM CDT Hospital Encounter [facility] [address] [address] Mary Kay Campuzano, RT Sj, AUSTEN Oquendo Emily E. RN Pancreatic adenocarcinoma (HCC) Discharge Disposition: Discharge to home or self care 10/11/19 7:09 AM CDT - 10/11/19 11:59 PM CDT Hospital Encounter [facility] Imaging [address] [facility] Medical Office Building 2 [place] [address] Pancreatic adenocarcinoma (HCC) Discharge Disposition: Discharge to home or self care 10/10/19 Telephone [facility] [address] [address] Leslie Armando RN 10/10/19 Telephone [facility] [address] [address] [place], [place] [address] Megan Hsu RN 10/08/19 3:45 PM CDT Lab [facility] [address] [facility] [place], [place] [address] Pancreatic adenocarcinoma (HCC) 10/08/19 2:00 PM CDT Office Visit [facility] Oncology [address] [facility] [address] [place] [phone] Kalli Cox MD Pancreatic adenocarcinoma (HCC) (Primary Dx); Pancreatic mass 09/28/19 1:45 PM CDT Office Visit [facility] Medical [facility] Cardiology [address] [facility] [address] [address] Onesimo George MD Atrial fibrillation status post cardioversion (HCC) (Primary Dx); History of cardiac radiofrequency ablation; Essential hypertension; Pancreatic adenocarcinoma (HCC); NOMI on CPAP; Lipid screening 09/21/19 Results Follow-Up [facility] Gastroenterology [address] [place] [address] Medical Office Building 4, [address] [place] [address] Body Outside Consult 09/21/19 Results Follow-Up [facility] Gastroenterology [address] [place] [address] Medical Office Building 4, [address] [place] [address] David Brewer MD Surgical pathology 09/20/19 12:40 PM CDT Anesthesia Event [facility] Disease [place] [address] [facility] [address] [place] [address] Travis Whittington MD 09/20/19 10:17 AM CDT - 09/20/19 2:37 PM CDT Emergency [facility] [place] [address] [facility] [address] [place] [address] Morgan Celestin MD Das, Koushik Kumar, MD Fall, initial encounter (Primary Dx); Pancreatic mass Discharge Disposition: Discharge to home or self care 09/20/19 9:30 AM CDT - 09/20/19 10:30 AM CDT Surgery [facility] Disease [place] [address] [facility] [address] [place] [address] David Brewer MD ESOPHAGOGASTRODUODENOSCOPY ULTRASOUND FINE NEEDLE ASPIRATION/BIOPSY [GI534] 09/19/19 Telephone [facility] Department of Hepatobiliary, Pancreatic, & Gastrointestinal Surgery [address] [facility] 12th Floor, [place] [address] Hilda Love PA 09/18/19 12:15 PM CDT Lab [facility] at [address] [place] [address] Pancreatic mass; 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, unspecified; Encounter for follow-up examination after completed treatment for conditions other than malignant neoplasm 09/18/19 8:30 AM CDT Office Visit [facility] Surgery [address] [place] [address] [address] [place] [address] Daisy Mercado MD Pancreatic mass (Primary Dx); Other specified diseases of pancreas; Encounter for follow-up examination after completed treatment for conditions other than malignant neoplasm; Neoplasm of uncertain behavior of other specified digestive organs 09/18/19 Telephone [facility] Surgery [address] [place] [address] [address] [place] [address] Susan Marroquin RN 09/14/19 12:53 PM CDT - 09/14/19 11:59 PM CDT Hospital Encounter [facility]) [facility] [place] [address] Pancreatic mass Discharge Disposition: Discharge to home or self care 09/14/19 25 Orders Only [facility] Surgery [address] [place] [address] [address] [place] [phone] Ana Sánchez PA Liver lesion (Primary Dx) 09/14/19 25 Orders Only [facility] Gastroenterology [address] [place] [address] Medical Office Building 4, [address] [place] [address] David Brewer MD Elevated liver function tests (Primary Dx) 09/13/19 Telephone [facility] Gastroenterology [address] [place] [address] Office Building [address], [address] [place] [address] Arlyn Segovia, professor of family medicine call 09/13/19 Orders Only [facility] Gastroenterology [address] [place] [address] Medical Office Building 4, [address] [place] [address] Arlyn Segovia, AUSTEN Pancreatic mass (Primary Dx) 09/12/19 Results Follow-Up [facility] Gastroenterology [address] [place] [address] Medical Office Building [address], [address] [place] [address] David Brewer MD Surgical pathology 09/12/19 Telephone [facility] Surgery [address] [place] [address] [address] [place] [phone] Susan Marroquin RN 09/07/19 1:07 PM CDT Anesthesia Event [facility] GI Center [address] [place] [phone] Wayne Nicholson MD 09/07/19 12:30 PM CDT - 09/07/19 25 1:00 PM CDT Surgery [facility] GI Center [address] [place] [phone] David Brewer MD ESOPHAGOGASTRODUODENOSCOPY ULTRASOUND GUIDE LIMITED 09/07/19 11:07 AM CDT - 09/07/19 4:10 PM CDT Hospital Encounter [facility] GI Center [address] [place] [address] Geoffrey Shaver MD Das, Koushik Kumar, MD Pancreatic mass; Elevated liver function tests Discharge Disposition: Discharge to home or self care 09/07/19 10:35 AM CDT Lab [facility] Outpatient Lab [address] [place] [address] Pancreatic mass; Elevated liver function tests 09/07/19 6:50 AM CDT - 09/07/19 11:59 PM CDT Hospital Encounter [facility] GI Center [address] [place] [phone] Upper abdominal pain Discharge Disposition: Discharge to home or self care 09/07/19 25 Orders Only [facility] GI Center [address] [place] [phone] David Brewer MD 09/06/19 1:04 PM CDT - 09/06/19 11:59 PM CDT Hospital Encounter [facility] ([facility]) [address] [place] [id number] Diagnosis unknown Discharge Disposition: Discharge to home or self care 09/05/19 25 Telephone [facility] Medical Group Cardiology [address] [facility] [address] [address] Onesimo George MD cardiac clearance 09/05/19 25 Telephone [facility] Gastroenterology [address] [facility] Medical Office Building 4, [address] [place] [address] Carmen Ordonez LPN GI Preprocedure 09/04/[address] [facility] ([facility]) - [facility] Minimally Invasive Surgery [address] [facility] 12th Floor, [place] [address] Daisy Mercado MD Medical Question/Miscellaneous 09/03/19 25 Orders Only [facility] Surgery [address] [facility] [address] [place] [address] Ana Sánchez PA Pancreatic mass (Primary Dx); [...] GERD (gastroesophageal reflux disease) Pancreatic cancer (HCC) 2024 History of chemotherapy 2024 Pancreat ic cancer Family History Medical History Relation Name Comments Breast cancer Cousin Cancer Father Breast cancer Mother's Sister 1 Breast cancer Mother's Sister 2 Lung cancer Other 1 Family history of Cancer, lung; Hypertension Other 2 Family history of Hypertension; Osteoarthritis Other 3 Family histor y of Osteoarthritis; Osteoporosis Other 4 Family history of Osteoporosis; Relation Name Status Comments Cousin Father Mother's Sister 1 Mother's Sister 2 Alive Other 1 Other 2 Other 3 Other [...] materials from doctor or pharmacy Sometimes 11/04/2024 [facility] Utilities Answer Date Recorded In the past 12 months has e [employer], oil, or water [employer] threatened to shut off services in your [...] attend chur ch or jew services? Never 10/22/2024 Do you belong to [...] place to sleep or slept in a assisted (including now)? No 02/27/2023 Housing Stability Vital Sign Answer Devan e Recorded In the last 12 months, was t here a time when you were not able to pay the mortgage or rent on time? No 10/22/2024 In the past 12 months, how m any times have you moved where you were living? 0 10/22/2024 At any time in the past 12 m [facility], were you homeless or living in a assisted (including now)? No 10/22/2024 Personal Safety Answer Date Recorded Have you ever been in or are you currently in a harmful physical or emotional relationship or is someone making you feel afraid or unsafe? Denies 10/21/2024 Comments No Sex and Gender Information Value Date Recorded Sex Assigned at Not on file Legal Sex Female 6:30 PM LEASE PICKER Gender Identity Not on file Sexual Orientation Not on file Obstetrics History Para Term AB IAB SAB Ectopic Multiple Livin g Live Births 4 3 3 1 3 3 Date Outcome GA Total Labor Labor/2nd/3rd Weight Sex Type Anes PTL Kesha A1 A5 Name Clin AB Term Term Term Comments 3 vaginal deliveries Last Filed Vital Signs Vital Sign Reading [...] 11/12/2024 9:02 AM CDT Plan of Treatment Health Maintenance Due Date Last Done Comments Colon Cancer Screening-Colonoscopy 1950 Hepatitis C Screening 1950 Osteoporosis Screening-Bone Density Scan 1950 Hepatitis B Screening 12/26/1967 Pneumococcal vaccine 65+ (1 of 2 - PCV) 1968 Zoster Vaccine (1 of 2) 12/26/1999 Well Visit 65+ 2014 Covid-19 Vaccine (3 - 2023-2 5 season) 2023 06/12/2020, 05/22/2020 DTaP/Tdap/Td Vaccine (2 - Td or Tdap) 03/19/2024 03/19/2014 Influenza Vaccine (#1) 2024 01/15/2015, 2008 Depression Screening 10/20/2025 10/20/2024, 02/25/2023, 11/06/2022, Additional history exists Breast Cancer Screening-Mammogram 10/24/2025 025, 09/09/2014 Fall Risk Assessment 10/25/2025 10/25/2024, 10/20/2024, 09/27/2024, Additional history exists Medical Devices Implanted Type Area Physician Office Clin Asst Device Identifier Shelf Expiration Date Model / Serial / Lot Conmed Chris Viabil 10mm X 6cm Shortwire [id number] - [id number] - [id number] Implanted:Qty: 1 on 09/06/2024 by David Brewer MD at [facility] Stent N/A: Bile Duct Conmed Chris 06/19/2027 [id number] / [id number] / [employer] Excela Low Porfile Power Port 8fr 1.6mm 1 Lumen [id number] - [id number] Implanted:Qty: 1 on 10/10/2024 at [facility] [employer] 05/07/2029 [id number] / / [id number] Procedures Procedure Name Priority Date/Time Associated Diagnosis [...] VIDEO IP Routine 10/23/2024 3:00 PM CDT VARNISH REMOVER EVALUATE AND TREAT VIDEOFLUOROSCOPIC SWALLOW STUDY Routine [...] STAT 4:00 PM CDT Pancreatic adenocarcinoma (HCC) [id number] Routine 10/07/2024 3:52 PM CDT Pancreatic adenocarcinoma [...] CDT 11/12/2024 1:25 PM CDT Narrative ENRIQUE BETANCOURT - 11/13/2024 3:55 PM CDT Testing performed by [facility] Microbiology Laboratory ([phone]) us Jackie Szymanski MD LAB MICROBIOLOGY - GEN ERAL ORDERABLES Final Result [facility] [facility] [place] [address] * eGFR (11/11/2024 9:30 AM CDT) eGFR [...] was last reviewed 2021. Testing performed by: [facility], [address] [place] [address] Blood 11/11/2024 9:30 AM CDT 11/11/2024 10:00 AM CDT us Moh'Maurisio Cox MD LAB BLOOD ORDERABLES Gail l Result [facility] [address] [facility] Department [place] [address] * (ABNORMAL) Differential, auto (11/11/2024 9:30 AM CDT) Pathologist [facility] Neutrophil abs 3.94 1.50 - 6.50 K/cumm Comment:Testing performed by : [facility], [facility] [address], [address] [place] [address] Imm gran abs 0.03 0.00 - 0.10 K/cumm CERNER BJWCH Comment:Testing performed by : [facility], [facility] 2, [address], [place] [address] Lymphocyte abs 1.28 0.80 - 3.30 K/cumm CERNER BJWCH Comment:Testing performed by : [facility], [facility] 2, [address] [place] [address] Monocyte abs 0.92(H) 0.20 - 0.80 K/cumm CERNER BJWCH Comment:Testing performed by : [facility], [facility] 2, [address] [place] [address] Eosinophil abs 0.07 0.00 - 0.50 K/cumm CERNER BJWCH Comment:Testing performed by : [facility], [facility] 2, [address] [place] [address] Basophil abs 0.06 0.00 - 0.10 K/cumm CERNER BJWCH Comment:Testing performed by : [facility], [facility] 2, [address], [place] [address] Neutrophil pct 62.5 % CERNER BJWCH Comment: Interpretive Data Percent cell count reference ranges are not reported, since discordance with absolute values may lead to misinterpretation of CBC data. Current Interpretive Data was last revised on 2017. Testing performed by: [facility], [facility] 2, [address] [place] [address] Imm gran pct 0.5 % CERNER BJWCH Comment: Interpretive Data Percent cell count reference ranges are not reported, since discordance with absolute values may lead to misinterpretation of CBC data. Current Interpretive Data was last revised on 2017. Testing performed by: [facility], [facility] 2, [address], [place] [address] Lymphocyte pct 20.3 % CERNER BJWCH Comment: Interpretive Data Percent cell count reference ranges are not reported, since discordance with absolute values may lead to misinterpretation of CBC data. Current Interpretive Data was last revised on 2017. Testing performed by: [facility], [facility] 2, [address] [place] [address] Monocyte pct 14.6 % ENRIQUE TORRES Comment: Interpretive Data Percent cell count reference ranges are not reported, since discordance with absolute values may lead to misinterpretation of CBC data. Current Interpretive Data was last revised on 2017. Testing performed by: [facility] 2, [address] [place] [address] Eosinophil pct 1.1 % ENRIQUE TORRES Comment: Interpretive Data Percent cell count reference ranges are not reported, since discordance with absolute values may lead to misinterpretation of CBC data. Current Interpretive Data was last revised on 2017. Testing performed by: [facility] 2, [address] [place] [address] Basophil pct 1.0 % ENRIQUE TORRES Comment: Interpretive Data Percent cell count reference ranges are not reported, since discordance with absolute values may lead to misinterpretation of CBC data. Current Interpretive Data was last revised on 2017. Testing performed by: [facility] 2, [address] [place] [address] Blood 11/11/2024 9:30 AM CDT 11/11/2024 9:41 AM CDT Kalli Cox MD LAB BLOOD ORDERABLES Gail l Result GILMARCELO [facility] [address] [facility] Department [place] [address] * (ABNORMAL) CBC with auto differential (11/11/2024 9:30 AM CDT) WBC 6.30 3.80 - 9.90 K/cumm Comment:Testing performed by : [facility] 2, [address] [place] [address] Hgb 8.3(L) 11.9 - 15.5 g/dL ENRIQUE TORRES Comment:Testing performed by : [facility] 2, [address] [place] [address] Hct 26.1(L) 35.6 - 45.5 % CERNER BJWCH Comment:Testing performed by : [facility], [facility] 2, [address], [place] [address] Plt 290 150 - 400 K/cumm CERNER BJWCH Comment:Testing performed by : [facility] 2, [address] [place] [address] MPV 9.8 9.1 - 12.3 fL CERNER BJWCH Comment:Testing performed by : [facility], [facility], [address] [place] [address] RBC 2.83(L) 3.90 - 5.20 M/cumm CERNER BJWCH Comment:Testing performed by : [facility] 2, [address] [place] [address] MCV 92.2 81.3 - 96.4 fL CERNER BJWCH Comment:Testing performed by : [place] [address], [address], [place] [address] MCH 29.3 27.1 - 33.3 pg CERNER BJWCH Comment:Testing performed by : [facility] 2, [address] [place] [address] MCHC 31.8(L) 32.3 - 35.7 g/dL CERNER BJWCH Comment:Testing performed by : [facility] 2, [address], [place] [address] RDW CV 16.1(H) 11.1 - 14.9 % CERNER BJWCH Comment:Testing performed by : [facility] 2, [address], [place] [address] RDW SD 54.2(H) 35.7 - 48.1 fL CERNER BJWCH Comment:Testing performed by : [facility] 2, [address], [place] [address] ANC Prelim 3.94 1.50 - 6.50 K/cumm CERNER BJWCH Comment: Interpretive Data The rapid ANC is a preliminary automated count and may vary from the final ANC (Neut Abs) reported in the WBC differential that follows. Current interpretive data was last revised 2024. Testing performed by: [facility], [facility] 2, [address] [place] [address] Blood 11/11/2024 9:30 AM CDT 11/11/2024 9:41 AM CDT Kalli Cox MD LAB BLOOD ORDERABLES Gail l Result [facility] [address] [address]. Department [place] [address] * (ABNORMAL) Comprehensive metabolic panel (11/11/2024 9:30 AM CDT) Sodium 137 135 - 145 mmol/L Comment:Testing performed by : [facility], [address], [place] [address] Potassium, pl 3.8 3.3 - 4.9 mmol/L ENRIQUE TORRES Comment:Testing performed by : [facility], [address], [place] [address] Chloride 99 97 - 110 mmol/L ENRIQUE TORRES Comment:Testing performed by : [facility], [address] [place] [address] CO2 29 22 - 32 mmol/L ENRIQUE TORRES Comment:Testing performed by : [facility], [address] [place] [address] Anion gap 9 2 - 15 mmol/L ENRIQUE TORRES Comment:Testing performed by : [facility], [address] [place] [address] BUN 12 6 - 25 mg/dL ENRIQUE TORRES Comment:Testing performed by : [facility], [address] [place] [address] Creatinine 0.80 0.60 - 1.10 mg/dL ENRIQUE TORRES Comment:Testing performed by : [facility], [address], [place] [address] Glucose 110 70 - 199 mg/dL CERNER BJWCH Comment: [...] was last revised 2022. Testing performed by: [facility], [address], [place] [address] Calcium 9.0 8.5 - 10.3 mg/dL CERNER BJWCH Comment:Testing performed by : [facility], [address], [place] [address] Bilirubin, total 0.3 0.1 - 1.2 mg/dL CERNER BJWCH Comment:Testing performed by : [facility], [address], [place] [address] Protein, pl 6.0(L) 6.5 - 8.5 g/dL CERNER BJWCH Comment:Testing performed by : [facility], [address], [place] [address] Albumin 3.1(L) 3.5 - 5.0 g/dL CERNER BJWCH Comment:Testing performed by : [facility], [address], [place] [address] Alk phos 140(H) 40 - 130 Units/L CERNER BJWCH Comment:Testing performed by : [facility], [address], [place] [address] ALT 13 7 - 45 Units/L CERNER BJWCH Comment:Testing performed by : [facility], [address], [place] [address] AST 23 10 - 45 Units/L CERNER BJWCH Comment:Testing performed by : [facility], [address] [facility], [place] [address] Blood 11/11/2024 9:30 AM CDT 11/11/2024 10:00 AM CDT Kalli Cox MD LAB BLOOD ORDERABLES Gail l Result ENRIQUE [facility] [address] [facility]. Department of Laboratories [place], [place] [id number] * TRANSTHORACIC ECHO (TTE) COMPLETE W DOPPLER/CF WO CONTRAST (11/05/2024 2:12 PM CDT) EF Mod BP 74 % CONS SCIMAGE Anatomical Region Laterality Modality Ultrasound 11/05/2024 1:18 PM CDT Narrative 11/06/2024 2:05 PM CDT [facility] [place] [address] Transthoracic Echocardiographic Report Patient Name: SUSANNAH CAMARGO A : 1950 (73y 10m) Gender: F Study Date: 11/05/2024 13:18:30 Ht(Inch): 61 Wt(Lb): 162.04 BSA: 1.78 Program Management Analyst: SHANNA Location: [facility] Order Provider: KALLI COX Heart Rate: [...] Note Jose J Hernandez MD - 11/06/2024 [facility] [place] [address] Transthoracic Echocardiographic Report Patient Name: SUSANNAH CAMARGO A : 1950 (73y 10m) Gender: F Study Date: 11/05/2024 13:18:30 Ht(Inch): 61 Wt(Lb): 162.04 BSA: 1.78 Program Management Analyst: SHANNA Location: [facility] Order Provider: KALLI COX Heart Rate: [...] LA Length 4C 6.24 cm MV Decel Tysv735.60 msec [ 104.00 - 258.00 ] LA [...] Jose J Hernandez MD 11/06/2024 14:05:24 CDT [facility]'Maurisio M Mili Cox MD CV ECHO PROCEDURES Final Result [...] was last reviewed 2021. Testing performed by: [facility], [address] [place] [address] Blood 10/28/2024 9:38 AM CDT 10/28/2024 10:02 AM CDT Kalli Cox MD LAB BLOOD ORDERABLES Gail l Result [facility] [address]. Department [place] [address] * Differential, auto (10/28/2024 9:38 AM CDT) Neutrophil abs 1.73 1.50 - 6.50 K/cumm Comment:Testing performed by : [facility] 2, [address] [place] [address] Imm gran abs 0.02 0.00 - 0.10 K/cumm ENRIQUE BJWCH Comment:Testing performed by : [facility] 2, [address] [place] [address] Lymphocyte abs 0.98 0.80 - 3.30 K/cumm ENRIQUE BJWSTEVE Comment:Testing performed by : [facility] 2, [address] [place] [address] Monocyte abs 0.56 0.20 - 0.80 K/cumm ENRIQUE BJWCH Comment:Testing performed by : [facility] 2, [address] [place] [address] Eosinophil abs 0.04 0.00 - 0.50 K/cumm ENRIQUE BJWCH Comment:Testing performed by : [facility] 2, [address] [place] [address] Basophil abs 0.01 0.00 - 0.10 K/cumm ENRIQUE BJWCH Comment:Testing performed by : [facility] 2, [address] [place] [address] Neutrophil pct 51.8 % CERMARCELO BJWCH Comment: Interpretive Data Percent cell count reference ranges are not reported, since discordance with absolute values may lead to misinterpretation of CBC data. Current Interpretive Data was last revised on 2017. Testing performed by: [facility], [facility] 2, [address] [place] [address] Imm gran pct 0.6 % CERNER BJWCH Comment: Interpretive Data Percent cell count reference ranges are not reported, since discordance with absolute values may lead to misinterpretation of CBC data. Current Interpretive Data was last revised on 2017. Testing performed by: [facility], [facility] 2, [address] [place] [address] Lymphocyte pct 29.3 % CERNER BJWCH Comment: Interpretive Data Percent cell count reference ranges are not reported, since discordance with absolute values may lead to misinterpretation of CBC data. Current Interpretive Data was last revised on 2017. Testing performed by: [facility], [facility] 2, [address] [place] [address] Monocyte pct 16.8 % CERNER BJWCH Comment: Interpretive Data Percent cell count reference ranges are not reported, since discordance with absolute values may lead to misinterpretation of CBC data. Current Interpretive Data was last revised on 2017. Testing performed by: [facility], [facility] 2, [address] [place] [address] Eosinophil pct 1.2 % CERNER BJWCH Comment: Interpretive Data Percent cell count reference ranges are not reported, since discordance with absolute values may lead to misinterpretation of CBC data. Current Interpretive Data was last revised on 2017. Testing performed by: [facility], [facility] 2, [address] [place] [address] Basophil pct 0.3 % CERNER BJWCH Comment: Interpretive Data Percent cell count reference ranges are not reported, since discordance with absolute values may lead to misinterpretation of CBC data. Current Interpretive Data was last revised on 2017. Testing performed by: [facility], [facility] 2, [address] [place] [address] Blood 10/28/2024 9:38 AM CDT 10/28/2024 9:40 AM CDT [facility]'Maurisio Cox MD LAB BLOOD ORDERABLES Gail radha Result [facility]ELO [facility] [address] [facility]. Department [place] [address] * (ABNORMAL) CBC with auto differential (10/28/2024 9:38 AM CDT) Pathologist [facility] WBC 3.34(L) 3.80 - 9.90 K/cumm Comment:Testing performed by : [place] [address] [place] [address] Hgb 8.2(L) 11.9 - 15.5 g/dL ENRIQUE BRADFORD Comment:Testing performed by : [place] [address] [place] [address] Hct 26.3(L) 35.6 - 45.5 % ENRIQUE [facility] Comment:Testing performed by : [address] [place] [address] Plt 218 150 - 400 K/cumm ENRIQUE TORRES Comment:Testing performed by : [place] [address] [place] [address] MPV 8.8(L) 9.1 - 12.3 fL ENRIQUE BRADFORDCH Comment:Testing performed by : [place] [address], [address] [place] [address] RBC 2.89(L) 3.90 - 5.20 M/cumm ENRIQUE TORRES Comment:Testing performed by : [place] [address], [address] [place] [address] MCV 91.0 81.3 - 96.4 fL ENRIQUE BETANCOURTWCH Comment:Testing performed by : [place] [address], [address] [place] [address] MCH 28.4 27.1 - 33.3 pg ENRIQUE BRADFORD Comment:Testing performed by : [facility], [facility] 2, [address] [place] [address] MCHC 31.2(L) 32.3 - 35.7 g/dL ENRIQUE BRADFORD Comment:Testing performed by : [facility], [facility] 2, [address] [place] [address] RDW CV 14.1 11.1 - 14.9 % ENRIQUE BRADFORD Comment:Testing performed by : [facility], [facility] 2, [address] [place] [address] RDW SD 47.1 35.7 - 48.1 fL ENRIQUE BRADFORD Comment:Testing performed by : [facility], [facility] 2, [address] [place] [address] ANC Prelim 1.73 1.50 - 6.50 K/cumm ENRIQUE BRADFORD Comment: Interpretive Data The rapid ANC is a preliminary automated count and may vary from the final ANC (Neut Abs) reported in the WBC differential that follows. Current interpretive data was last revised 2024. Testing performed by: [facility], [facility] 2, [address] [place] [address] Blood 10/28/2024 9:38 AM CDT 10/28/2024 9:40 AM CDT Ibeth'Maurisio Cox MD LAB BLOOD ORDERABLES Gail l Result [facility] [address] [address]. [place] [address] * (ABNORMAL) Comprehensive metabolic panel (10/28/2024 9:38 AM CDT) Sodium 137 135 - 145 mmol/L Comment:Testing performed by : [facility], [address] [place] [address] Potassium, pl 3.6 3.3 - 4.9 mmol/L CERNER BJWCH Comment:Testing performed by : [facility], [address], [place] [address] Chloride 104 97 - 110 mmol/L CERNER BJWCH Comment:Testing performed by : [facility], [address], [place] [address] CO2 28 22 - 32 mmol/L CERNER BJWCH Comment:Testing performed by : [facility], [address], [place] [address] Anion gap 5 2 - 15 mmol/L CERNER BJWCH Comment:Testing performed by : [facility], [address], [place] [address] BUN 9 6 - 25 mg/dL CERNER BJWCH Comment:Testing performed by : [facility], [address], [place] [address] Creatinine 0.72 0.60 - 1.10 mg/dL CERNER BJWCH Comment:Testing performed by : [facility], [address], [place] [address] Glucose 87 70 - 199 mg/dL CERNER [...] was last revised 2022. Testing performed by: [facility], [address], [place] [address] Calcium 8.9 8.5 - 10.3 mg/dL CERNER BJWCH Comment:Testing performed by : [facility], [address], [place] [address] Bilirubin, total 0.4 0.1 - 1.2 mg/dL CERNER BJWCH Comment:Testing performed by : [facility], [address], [place] [address] Protein, pl 5.4(L) 6.5 - 8.5 g/dL CERNER BJWCH Comment:Testing performed by : [facility], [address], [place] [address] Albumin 3.1(L) 3.5 - 5.0 g/dL CERNER BJWCH Comment:Testing performed by : [facility], [address], [place] [address] Alk phos 189(H) 40 - 130 Units/L CERNER BJWCH Comment:Testing performed by : [facility], [address], [place] [address] ALT 12 7 - 45 Units/L CERNER BJWCH Comment:Testing performed by : [facility], [address], [place] [address] AST 20 10 - 45 Units/L CERNER BJWCH Comment:Testing performed by : [facility], [address], [place] [address] Blood 10/28/2024 9:38 AM CDT 10/28/2024 10:02 AM CDT us Kalli Cox MD LAB BLOOD ORDERABLES Gail l Result Performing Organization Address City/[facility]/ZIP Co de Phone Number [facility] BJ[facility] [address] [place] [address] * POCT glucose (10/25/2024 11:40 AM CDT) Glucose, POC 80 70 - 199 mg/dL Blood 10/25/2024 11:4 0 AM CDT 10/25/2024 11:40 AM CDT us Tana Coronado MD LAB POCT ORDERABLES - DEVICE Final Result Performing Organization Address City/[facility]/ZIP Co de Phone Number [facility] [place] [address] * US Transvaginal (10/25/2024 10:30 AM CDT) [...] it. Electronically signed by: Dar Oconnell M.D. Tana Coronado MD IMG US PROCEDURES Fi nal Result * POCT glucose (10/25/2024 7:43 AM CDT) Glucose, POC 111 70 - 199 mg/dL Blood 10/25/2024 7:43 AM CDT 10/25/2024 7:43 AM CDT Tana Coronado MD LAB POCT ORDERABLES - DEVICE Final Result GILBANNER BJ [facility] [place] [address] * eGFR (10/25/2024 1:45 AM CDT) eGFR [...] MD LAB BLOOD ORDER SHANT Final Result [facility] [place] [address] * (ABNORMAL) Differential, auto (10/25/2024 1:45 AM CDT) Neutrophil abs 1.51 1.50 - 6.50 K/cumm Imm gran abs 0.01 0.00 - 0.10 K/cumm CERNER [facility] Lymphocyte abs 0.70(L) 0.80 - 3.30 K/cumm [facility] Monocyte abs 0.52 0.20 - 0.80 K/cumm [facility] Eosinophil abs 0.04 0.00 - 0.50 K/cumm [facility] Basophil abs 0.01 0.00 - 0.10 K/cumm [facility] Neutrophil pct 54.1 % [facility] Comment: Interpretive Data Percent cell count reference ranges are not reported, since discordance with absolute values may lead to misinterpretation of CBC data. Current Interpretive Data was last revised on 2017. Imm gran pct 0.4 % [facility] Comment: Interpretive Data Percent cell count reference ranges are not reported, since discordance with absolute values may lead to misinterpretation of CBC data. Current Interpretive Data was last revised on 2017. Lymphocyte pct 25.1 % [facility] Comment: Interpretive Data Percent cell count reference ranges are not reported, since discordance with absolute values may lead to misinterpretation of CBC data. Current Interpretive Data was last revised on 2017. Monocyte pct 18.6 % [facility] Comment: Interpretive Data Percent cell count reference ranges are not reported, since discordance with absolute values may lead to misinterpretation of CBC data. Current Interpretive Data was last revised on 2017. Eosinophil pct 1.4 % [facility] Comment: Interpretive Data Percent cell count reference ranges are not reported, since discordance with absolute values may lead to misinterpretation of CBC data. Current Interpretive Data was last revised on 2017. Basophil pct 0.4 % [facility] Comment: Interpretive Data Percent cell count reference ranges are not reported, since discordance with absolute values may lead to misinterpretation of CBC data. Current Interpretive Data was last revised on 2017. Blood 10/25/2024 1:45 AM CDT 10/25/2024 3:54 AM CDT Jessi Briggs MD LAB BLOOD ORDER SHANT Final Result [facility] [place] [address] * (ABNORMAL) CBC with auto differential (10/25/2024 1:45 AM CDT) WBC 2.79(L) 3.80 - 9.90 K/cumm Hgb 7.5(L) 11.9 - 15.5 g/dL [facility] Hct 23.0(L) 35.6 - 45.5 % [facility] Plt 115(L) 150 - 400 K/cumm [facility] MPV 9.6 9.1 - 12.3 fL [facility] RBC 2.56(L) 3.90 - 5.20 M/cumm [facility] MCV 89.8 81.3 - 96.4 fL [facility] MCH 29.3 27.1 - 33.3 pg [facility] MCHC 32.6 32.3 - 35.7 g/dL [facility] RDW CV 14.5 11.1 - 14.9 % [facility] RDW SD 47.8 35.7 - 48.1 fL [facility] NRBC abs 0.00 0.00 - 0.01 K/cumm [facility] Blood 10/25/2024 1:45 AM CDT 10/25/2024 3:54 AM CDT Jessi Briggs MD LAB BLOOD ORDER SHANT Final Result Performing Organization Address City/[facility]/ZIP Co de Phone Number [facility] [place] [address] * Phosphorus (10/25/2024 1:45 AM CDT) Pathologist [facility] Phosphorus, pl 2.5 2.3 - 4.5 mg/dL Blood 10/25/2024 1:45 AM CDT 10/25/2024 3:54 AM CDT Jessi Briggs MD LAB BLOOD ORDER SHANT Final Result Performing Organization Address City/[facility] de Phone Number [facility] [place] [address] * (ABNORMAL) Comprehensive metabolic panel (10/25/2024 1:45 AM CDT) Pathologist [facility] Sodium 142 135 - 145 mmol/L Potassium, pl 3.3 3.3 - 4.9 mmol/L [facility] Chloride 106 97 - 110 mmol/L [facility] CO2 29 22 - 32 mmol/L [facility] Anion gap 7 2 - 15 mmol/L [facility] BUN 5(L) 6 - 25 mg/dL [facility] Creatinine 0.69 0.60 - 1.10 mg/dL [facility] Glucose 90 70 - 199 mg/dL [facility] Comment: Interpretive Data Fasting glucose >/= [...] 2022. Calcium 8.3(L) 8.5 - 10.3 mg/dL CERNER [facility] Bilirubin, total 0.3 0.1 - 1.2 mg/dL CERNER [facility] Protein, pl 4.9(L) 6.5 - 8.5 g/dL CERNER [facility] Albumin 2.7(L) 3.5 - 5.0 g/dL CERNER [facility] Alk phos 148(H) 40 - 130 Units/L CERNER [facility] ALT 11 7 - 45 Units/L CERNER [facility] AST 16 10 - 45 Units/L CERNER [facility] Blood 10/25/2024 1:45 AM CDT 10/25/2024 3:54 AM CDT us Jessi Briggs MD LAB BLOOD ORDER SHANT Final Result [facility] [place] [address] * POCT glucose (10/25/2024 1:43 AM CDT) Glucose, POC 104 70 - 199 mg/dL Blood 10/25/2024 1:43 AM CDT 10/25/2024 1:43 AM CDT us Tana Coronado MD LAB POCT ORDERABLES - DEVICE Final Result [facility] Department of [place] [address] * POCT glucose (10/24/2024 8:55 PM CDT) Glucose, POC 105 70 - 199 mg/dL Blood 10/24/2024 8:55 PM CDT 10/24/2024 8:55 PM CDT Tana Coronado MD LAB POCT ORDERABLES - DEVICE Final Result [facility] [place] [address] * POCT glucose (10/24/2024 6:11 PM CDT) Glucose, POC 80 70 - 199 mg/dL Blood 10/24/2024 6:11 PM CDT 10/24/2024 6:11 PM CDT Tana Coronado MD LAB POCT ORDERABLES - DEVICE Final Result Performing Organization Address [facility] Co de Phone Number ENRIQUE [facility] [place] [address] * Diagnostic Mammogram Bilateral W Ayad (10/24/2024 [...] bilateral axilla was performed by a trained senior tax manager and Dr. Andrade. Subsequently, full field digital [...] mammography, close interval imaging follow-up is recommended. us Tana Coronado MD IMG MAMMO PROCEDURES Final [...] bilateral axilla was performed by a trained senior tax manager and Dr. Andrade. Subsequently, full field digital [...] 1:03 PM CDT 10/24/2024 1:03 PM CDT [facility] Tana Coronado MD LAB POCT ORDERABLES - DEVICE Final Result Performing Organization Address [facility] Co de Phone Number [facility] [place] [address] * POCT glucose (10/24/2024 8:49 AM CDT) Glucose, POC 98 70 - 199 mg/dL Blood 10/24/2024 8:49 AM CDT 10/24/2024 8:49 AM CDT [facility] Tana Coronado MD LAB POCT ORDERABLES - DEVICE Final Result [facility] [place] [address] * POCT glucose (10/24/2024 2:00 AM CDT) Glucose, POC 88 70 - 199 mg/dL Blood 10/24/2024 2:00 AM CDT 10/24/2024 2:00 AM CDT Result [facility] Tana Coronado MD LAB POCT ORDERABLES - DEVICE Final Result Performing Organization Address [facility]/ZIP Co de Phone Number ENRIQUE [facility] [place] [address] * eGFR (10/24/2024 1:50 AM CDT) Pathologist [facility] eGFR >90 >=60 mL/min/1. 73 m2 Comment: [...] ORDER SHANT Final Result Performing Organization Address City/[facility]/ZIP Co de Phone Number ENRIQUE [facility] [place] [address] * Differential, auto (10/24/2024 1:50 AM CDT) Pathologist [facility] Neutrophil abs 2.44 1.50 - 6.50 K/cumm Imm gran abs 0.02 0.00 - 0.10 K/cumm [facility] Lymphocyte abs 1.24 0.80 - 3.30 K/cumm [facility] Monocyte abs 0.74 0.20 - 0.80 K/cumm [facility] Eosinophil abs 0.08 0.00 - 0.50 K/cumm [facility] Basophil abs 0.01 0.00 - 0.10 K/cumm [facility] Neutrophil pct 53.9 % [facility] Comment: Interpretive Data Percent cell count reference ranges are not reported, since discordance with absolute values may lead to misinterpretation of CBC data. Current Interpretive Data was last revised on 2017. Imm gran pct 0.4 % [facility] Comment: Interpretive Data Percent cell count reference ranges are not reported, since discordance with absolute values may lead to misinterpretation of CBC data. Current Interpretive Data was last revised on 2017. Lymphocyte pct 27.4 % [facility] Comment: Interpretive Data Percent cell count reference ranges are not reported, since discordance with absolute values may lead to misinterpretation of CBC data. Current Interpretive Data was last revised on 2017. Monocyte pct 16.3 % [facility] Comment: Interpretive Data Percent cell count reference ranges are not reported, since discordance with absolute values may lead to misinterpretation of CBC data. Current Interpretive Data was last revised on 2017. Eosinophil pct 1.8 % [facility] Comment: Interpretive Data Percent cell count reference ranges are not reported, since discordance with absolute values may lead to misinterpretation of CBC data. Current Interpretive Data was last revised on 2017. Basophil pct 0.2 % [facility] Comment: Interpretive Data Percent cell count reference ranges are not reported, since discordance with absolute values may lead to misinterpretation of CBC data. Current Interpretive Data was last revised on 2017. Blood 10/24/2024 1:50 AM CDT 10/24/2024 2:13 AM CDT Jessi Briggs MD LAB BLOOD ORDER SHANT Final Result [facility] [place] [address] * Calcium, ionized (10/24/2024 1:50 AM CDT) [facility] Calcium, Ionized 4.85 4.50 - 5.10 mg/dL Blood 10/24/2024 1:50 AM CDT 10/24/2024 2:10 AM CDT us Tana Coronado MD LAB BLOOD ORDERABLES Final Result [facility] [place] [address] * (ABNORMAL) CBC with auto differential (10/24/2024 1:50 AM CDT) [facility] WBC 4.53 3.80 - 9.90 K/cumm Hgb 8.8(L) 11.9 - 15.5 g/dL [facility] Hct 26.9(L) 35.6 - 45.5 % [facility] Plt 160 150 - 400 K/cumm [facility] MPV 9.8 9.1 - 12.3 fL [facility] RBC 2.97(L) 3.90 - 5.20 M/cumm [facility] MCV 90.6 81.3 - 96.4 fL [facility] MCH 29.6 27.1 - 33.3 pg [facility] MCHC 32.7 32.3 - 35.7 g/dL [facility] RDW CV 14.5 11.1 - 14.9 % [facility] RDW SD 48.5(H) 35.7 - 48.1 fL [facility] NRBC abs 0.00 0.00 - 0.01 K/cumm [facility] Blood 10/24/2024 1:50 AM CDT 10/24/2024 2:13 AM CDT us Jessi Briggs MD LAB BLOOD ORDER SHANT Final Result [facility] [place] [address] * Type and screen (10/24/2024 1:50 AM CDT) ABO Rh O Negative Brigitte, indirect Negative [facility] Blood 10/24/2024 1:50 AM CDT 10/24/2024 2:25 AM CDT Narrative [facility] - 10/24/2024 3:52 AM CDT Has the patient had Daratumumab or Isatuximab in the past 6 months?->Unknown Jessi Briggs MD LAB BLOOD BANK TEST ORDERABLES Final Result [facility] [place] [address] * Uric acid (10/24/2024 1:50 AM CDT) Uric acid 3.8 2.5 - 7.0 mg/dL Blood 10/24/2024 1:50 AM CDT 10/24/2024 2:13 AM CDT Narrative [facility] - 10/24/2024 2:40 AM CDT Monday and only. Morning draw. . Jessi Briggs MD LAB BLOOD ORDER SHANT Final Result [facility] [place] [address] * Phosphorus (10/24/2024 1:50 AM CDT) Phosphorus, pl 2.4 2.3 - 4.5 mg/dL Blood 10/24/2024 1:50 AM CDT 10/24/2024 2:13 AM CDT Jessi Briggs MD LAB BLOOD ORDER SHANT Final Result [facility] [place] [address] * Lactate dehydrogenase (LD) (10/24/2024 1:50 AM CDT) [facility] Lactate dehydrogenase (LDH) 213 100 - 250 Units/L Blood 10/24/2024 1:50 AM CDT 10/24/2024 2:13 AM CDT Narrative [facility] - 10/24/2024 2:40 AM CDT Monday and only. Morning draw. Jessi Briggs MD LAB BLOOD ORDER SHANT Final Result [facility] [place] [address] * (ABNORMAL) Comprehensive metabolic panel (10/24/2024 1:50 AM CDT) [facility] Sodium 138 135 - 145 mmol/L Potassium, pl 3.6 3.3 - 4.9 mmol/L [facility] Chloride 107 97 - 110 mmol/L [facility] CO2 28 22 - 32 mmol/L [facility] Anion gap 3 2 - 15 mmol/L [facility] BUN 8 6 - 25 mg/dL [facility] Creatinine 0.63 0.60 - 1.10 mg/dL [facility] Glucose 88 70 - 199 mg/dL [facility] Comment: Interpretive Data Fasting glucose >/= [...] 2022. Calcium 8.9 8.5 - 10.3 mg/dL [facility] Bilirubin, total 0.3 0.1 - 1.2 mg/dL [facility] Protein, pl 5.8(L) 6.5 - 8.5 g/dL [facility] Albumin 3.1(L) 3.5 - 5.0 g/dL [facility] Alk phos 185(H) 40 - 130 Units/L [facility] ALT 13 7 - 45 Units/L [facility] AST 20 10 - 45 Units/L [facility] Blood 10/24/2024 1:50 AM CDT 10/24/2024 2:13 AM CDT Jessi Briggs MD LAB BLOOD ORDER SHANT Final Result Performing Organization Address [facility] Co de Phone Number [facility] [place] [address] * (ABNORMAL) Vancomycin level trough (10/23/2024 11:26 PM CDT) Vancomycin trough 5.7(L) 10.0 - 20.0 mcg/mL Blood 10/23/2024 11:2 6 PM CDT 10/23/2024 11:36 PM CDT Cayla Solorzano MD LAB BLOOD ORDERABLES Final Resul t Performing Organization Address [facility] Co de Phone Number [facility] [place] [address] * POCT glucose (10/23/2024 8:27 PM CDT) Glucose, POC 98 70 - 199 mg/dL Blood 10/23/2024 8:27 PM CDT 10/23/2024 8:27 PM CDT Tana Coronado MD LAB POCT ORDERABLES - DEVICE Final Result Performing Organization Address City/[facility] Co de Phone Number [facility] [place] [address] * POCT glucose (10/23/2024 5:50 PM CDT) Glucose, POC 104 70 - 199 mg/dL Blood 10/23/2024 5:50 PM CDT 10/23/2024 5:50 PM CDT us Tana Coronado MD LAB POCT ORDERABLES - DEVICE Final Result [facility] [place] [address] * FL Modified Barium Swallow W Video [...] IMG FLUOROSCOPY PROC EDURES Final Result * VARNISH REMOVER Evaluate and Treat (VFSS) (10/23/2024 2:38 PM CDT) Narrative Antonette Camarena SLP - 10/23/2024 2:38 PM CDT Antonette Camarena SLP 10/23/2024 3:55 PM Speech-Language Pathology: Videofluoroscopic Study of Swallow (VFSS/MBS) HPI/PMH HPI/PMH: 73 year old female with a h/o stage III pancreatic cancer diagnosed on 09/19/24, s/p C1D1 Gemzar and Abraxane on 10/15/24, as well as atrial fibrillation, GERD, UC, anxiety/depression, HTN, h/o gastric sleeve, who presents to the [facility] 10/21/24 due to Fever at home. She [...] thin liquid General Information Susannah Camargo 10/23/24 VARNISH REMOVER Received On: 10/23/24 General Observations: alert, cooperative Reason for Referral:suspect pharyngeal dysphagia Pain Score: 0 - No pain If pain >4, was RN notified? N/A Patient Stated Goal/Comments: agrees to [facility] Clinical Impression & Professional Recommendations Diet Solids [...] SHERI indicate need for nonoral nutrition. Plan VARNISH REMOVER Recommendation (Add'l Services): No further VARNISH REMOVER indicated (do not anticipate VARNISH REMOVER needs at discharge) Next Visit Plan: treatment/therapy Discharge Summary Statement If this is the last swallow therapy visit, this serves as the discharge summary. Tana Coronado MD VARNISH REMOVER ORDERABLES Gail l Result * POCT glucose (10/23/2024 11:58 AM CDT) Glucose, POC 78 70 - 199 mg/dL Blood 10/23/2024 11:5 8 AM CDT 10/23/2024 11:58 AM CDT Tana Coronado MD LAB POCT ORDERABLES - DEVICE Final Result Performing Organization Address City/[facility] Co de Phone Number [facility] [place] [address] * POCT glucose (10/23/2024 7:26 AM CDT) Glucose, POC 84 70 - 199 mg/dL Blood 10/23/2024 7:26 AM CDT 10/23/2024 7:26 AM CDT Tana Coronado MD LAB POCT ORDERABLES - DEVICE Final Result Performing Organization Address City/[facility] Co de Phone Number [facility] [place] [address] * eGFR (10/23/2024 12:28 AM CDT) eGFR [...] MD LAB BLOOD ORDER SHANT Final Result [facility] [place] [address] * (ABNORMAL) Differential, auto (10/23/2024 12:28 AM CDT) Neutrophil abs 2.24 1.50 - 6.50 K/cumm Imm gran abs 0.01 0.00 - 0.10 K/cumm [facility] Lymphocyte abs 0.74(L) 0.80 - 3.30 K/cumm [facility] Monocyte abs 0.54 0.20 - 0.80 K/cumm [facility] Eosinophil abs 0.03 0.00 - 0.50 K/cumm [facility] Basophil abs 0.01 0.00 - 0.10 K/cumm [facility] Neutrophil pct 62.8 % [facility] Comment: Interpretive Data Percent cell count reference ranges are not reported, since discordance with absolute values may lead to misinterpretation of CBC data. Current Interpretive Data was last revised on 2017. Imm gran pct 0.3 % [facility] Comment: Interpretive Data Percent cell count reference ranges are not reported, since discordance with absolute values may lead to misinterpretation of CBC data. Current Interpretive Data was last revised on 2017. Lymphocyte pct 20.7 % [facility] Comment: Interpretive Data Percent cell count reference ranges are not reported, since discordance with absolute values may lead to misinterpretation of CBC data. Current Interpretive Data was last revised on 2017. Monocyte pct 15.1 % [facility] Comment: Interpretive Data Percent cell count reference ranges are not reported, since discordance with absolute values may lead to misinterpretation of CBC data. Current Interpretive Data was last revised on 2017. Eosinophil pct 0.8 % [facility] Comment: Interpretive Data Percent cell count reference ranges are not reported, since discordance with absolute values may lead to misinterpretation of CBC data. Current Interpretive Data was last revised on 2017. Basophil pct 0.3 % [facility] Comment: Interpretive Data Percent cell count reference ranges are not reported, since discordance with absolute values may lead to misinterpretation of CBC data. Current Interpretive Data was last revised on 2017. Blood 10/23/2024 12:2 8 AM CDT 10/23/2024 12:47 AM CDT Jessi Briggs MD LAB BLOOD ORDER SHANT Final Result [facility] [place] [address] * (ABNORMAL) CBC with auto differential (10/23/2024 12:28 AM CDT) WBC 3.57(L) 3.80 - 9.90 K/cumm Hgb 8.0(L) 11.9 - 15.5 g/dL [facility] Hct 24.1(L) 35.6 - 45.5 % [facility] Plt 124(L) 150 - 400 K/cumm [facility] MPV 10.5 9.1 - 12.3 fL [facility] RBC 2.72(L) 3.90 - 5.20 M/cumm [facility] MCV 88.6 81.3 - 96.4 fL [facility] MCH 29.4 27.1 - 33.3 pg [facility] MCHC 33.2 32.3 - 35.7 g/dL [facility] RDW CV 14.7 11.1 - 14.9 % [facility] RDW SD 47.7 35.7 - 48.1 fL [facility] NRBC abs 0.00 0.00 - 0.01 K/cumm [facility] Blood 10/23/2024 12:2 8 AM CDT 10/23/2024 12:47 AM CDT Jessi Briggs MD LAB BLOOD ORDER SHANT Final Result Performing Organization Address City/[facility]/ZIP Co de Phone Number [facility] [place] [address] * (ABNORMAL) Phosphorus (10/23/2024 12:28 AM CDT) [facility] Phosphorus, pl 2.1(L) 2.3 - 4.5 mg/dL Blood 10/23/2024 12:2 8 AM CDT 10/23/2024 12:46 AM CDT us Jessi Briggs MD LAB BLOOD ORDER SHANT Final Result [facility] [place] [address] * (ABNORMAL) Comprehensive metabolic panel (10/23/2024 12:28 AM CDT) [facility] Sodium 137 135 - 145 mmol/L Potassium, pl 3.5 3.3 - 4.9 mmol/L [facility] Chloride 105 97 - 110 mmol/L [facility] CO2 27 22 - 32 mmol/L [facility] Anion gap 5 2 - 15 mmol/L [facility] BUN 8 6 - 25 mg/dL [facility] Creatinine 0.58(L) 0.60 - 1.10 mg/dL [facility] Glucose 122 70 - 199 mg/dL [facility] Comment: Interpretive Data Fasting glucose >/= [...] 2022. Calcium 8.2(L) 8.5 - 10.3 mg/dL [facility] Bilirubin, total 0.4 0.1 - 1.2 mg/dL [facility] Protein, pl 5.3(L) 6.5 - 8.5 g/dL [facility] Albumin 2.8(L) 3.5 - 5.0 g/dL [facility] Alk phos 175(H) 40 - 130 Units/L [facility] ALT 14 7 - 45 Units/L [facility] AST 17 10 - 45 Units/L [facility] Blood 10/23/2024 12:2 8 AM CDT 10/23/2024 12:46 AM CDT Jessi Briggs MD LAB BLOOD ORDER SHANT Final Result [facility] [place] [address] * POCT glucose (10/22/2024 8:01 PM CDT) [facility] Glucose, POC 112 70 - 199 mg/dL Blood 10/22/2024 8:01 PM CDT 10/22/2024 8:01 PM CDT Tana Coronado MD LAB POCT ORDERABLES - DEVICE Final Result Performing Organization Address City/[facility] Co de Phone Number [facility] [place] [address] * POCT glucose (10/22/2024 5:14 PM CDT) Glucose, POC 99 70 - 199 mg/dL Blood 10/22/2024 5:14 PM CDT 10/22/2024 5:14 PM CDT Tana Coronado MD LAB POCT ORDERABLES - DEVICE Final Result Performing Organization Address [facility] Co de Phone Number [facility] [place] [address] * US Vein Duplex Upper Extremity Left Limited, Unilateral (10/22/2024 4:42 PM CDT) Anatomical Region Laterality Modality Vascular Left Ultrasound 10/22/2024 4:10 PM CDT Narrative 10/22/2024 9:32 PM CDT [facility] [employer] - Department of Vascular Surgery, Vascular Laboratory [address] [place] [id number] Upper Extremity Venous Ultrasound Report Patient Name: SUSANNAH CAMARGO : 1950 (73y 9m) Study Date: 10/22/2024 4:10:04 PM Gender: F Tech: DE Location: [id number] Ref Provider: TANA CORONADO Quality: Adequate Order Provider: TANA CORONADO PROCEDURES: Vascular Report: Venous Duplex imaging was performed in the left upper extremity. The internal jugular, subclavian and axillary veins were evaluated for patency, spontaneity and phasicity with Doppler, compression and augmentation maneuvers. The brachial, basilic and cephalic veins were also evaluated with compression maneuvers. INDICATIONS: LUE swelling, erythema. FINDINGS: Performing Program Management Analyst: Halley Castillo RVT. Left: Venous Doppler signals [...] Procedure Note Dano Gleason MD - 10/22/2024 [employer] - Department of Vascular Surgery,Vascular Laboratory [address] [place] [id number] Upper Extremity Venous Ultrasound Report Patient Name: SUSANNAH CAMARGO : 1950 (73y 9m) Study Date: 10/22/2024 4:10:04 PM Gender: F Tech: DE Location: [id number] Ref Provider: TANA CORONADO Quality: Adequate Order Provider: TANA CORONADO PROCEDURES: Vascular Report: Venous Duplex imaging was performed in the left upper extremity. Theinternal jugular, subclavian and axillary veins were evaluated for patency, spontaneity andphasicity with Doppler, compression and augmentation maneuvers. The brachial, basilic andcephalic veins were also evaluated with compression maneuvers. INDICATIONS: LUE swelling, erythema. FINDINGS: Performing Program Management Analyst: Halley Castillo RVT. Left: Venous Doppler signals [...] Gleason MD FACS 10/22/2024 9:31:18 PM CDT Result [facility] Tana Coronado MD IMG US PROCEDURES Fi nal Result * POCT glucose (10/22/2024 12:21 PM CDT) Glucose, POC 94 70 - 199 mg/dL Blood 10/22/2024 12:2 1 PM CDT 10/22/2024 12:21 PM CDT Result [facility] Tana Coronado MD LAB POCT ORDERABLES - DEVICE Final Result Performing Organization Address [facility] Co de Phone Number [facility] [place] [address] * POCT glucose (10/22/2024 7:14 AM CDT) Glucose, POC 73 70 - 199 mg/dL Blood 10/22/2024 7:14 AM CDT 10/22/2024 7:14 AM CDT Result [facility] Tana Coronado MD LAB POCT ORDERABLES - DEVICE Final Result Performing Organization Address [facility] Co de Phone Number [facility] [place] [address] * Stool culture Stool Rectum (10/22/2024 6:46 AM CDT) Direct Specimen Exam Shiga Toxin Testing: Antigen detection assay for Shiga-toxin NEGATIVE for Shiga Toxin 1 and Shiga Toxin 2. Report Final Report: No growth of enteric bacterial pathogens [facility] Stool (Rectum) 10/22/2024 6: 46 AM CDT 10/22/2024 7:57 AM CDT Narrative [facility] - 10/26/2024 9:59 AM CDT Testing performed by [facility] ([phone]). Routine stool cultures include procedures to detect Salmonella, Shigella, Edwardsiella, Aeromonas, Pleisiomonas, Campylobacter, Yersinia, E. coli O157, and Shiga-like toxins. Vibrio is cultured only upon special request. If Vibrio is suspected, please call the laboratory at [phone]. Interpretive data was last updated August 22, 2016. us Jessi Briggs MD LAB MICROBIOLOG Y - GENERAL ORDERABLES Final Result [facility] [place] [address] * eGFR (10/22/2024 2:51 AM CDT) eGFR [...] 2:51 AM CDT 10/22/2024 3:19 AM CDT us Jessi Briggs MD LAB BLOOD ORDER SHANT Final Result Performing Organization Address [facility] de Phone Number [facility] [place] [address] * aPTT (10/22/2024 2:51 AM CDT) aPTT [...] ORDER SHANT Final Result Performing Organization Address [facility] [address] * (ABNORMAL) Protime-INR (10/22/2024 2:51 AM CDT) PT 14.9(H) 9.7 - 13.0 sec INR 1.37(H) 0.90 - 1.20 [facility] Comment: Interpretive data Oral anticoagulant therapeutic ranges: Venous thromboembolism prophylaxis or treatment: 2.0-3.0 CARDIOLOGY Standard range: 2.0-3.0 High-intensity range: 2.5-3.5 Refer to indication-specific guidelines for appropriate target ranges for prosthetic heart valve replacement. Current interpretive data was last revised on 2019. Blood 10/22/2024 2:51 AM CDT 10/22/2024 3:17 AM CDT Jessi Briggs MD LAB BLOOD ORDER SHANT Final Result Performing Organization Address [facility] de Phone Number [facility] [place] [address] * Uric acid (10/22/2024 2:51 AM CDT) Pathologist [facility] Uric acid 3.6 2.5 - 7.0 mg/dL Blood 10/22/2024 2:51 AM CDT 10/22/2024 3:19 AM CDT Narrative [facility] - 10/22/2024 3:48 AM CDT Monday and only. Morning draw. . Jessi Briggs MD LAB BLOOD ORDER SHANT Final Result [facility] [place] [address] * Phosphorus (10/22/2024 2:51 AM CDT) Pathologist [facility] Phosphorus, pl 2.3 2.3 - 4.5 mg/dL Blood 10/22/2024 2:51 AM CDT 10/22/2024 3:19 AM CDT Jessi Briggs MD LAB BLOOD ORDER SHANT Final Result Performing Organization Address City/[facility]/ZIP Co de Phone Number [facility] [place] [address] * Lactate dehydrogenase (LD) (10/22/2024 2:51 AM CDT) [facility] Lactate dehydrogenase (LDH) 185 100 - 250 Units/L Blood 10/22/2024 2:51 AM CDT 10/22/2024 3:19 AM CDT Narrative [facility] - 10/22/2024 3:48 AM CDT Monday and only. Morning draw. Jessi Briggs MD LAB BLOOD ORDER SHANT Final Result [facility] [place] [address] * (ABNORMAL) Comprehensive metabolic panel (10/22/2024 2:51 AM CDT) Sodium 136 135 - 145 mmol/L Potassium, pl 3.7 3.3 - 4.9 mmol/L [facility] Chloride 102 97 - 110 mmol/L [facility] CO2 27 22 - 32 mmol/L [facility] Anion gap 7 2 - 15 mmol/L [facility] BUN 9 6 - 25 mg/dL [facility] Creatinine 0.64 0.60 - 1.10 mg/dL [facility] Glucose 107 70 - 199 mg/dL [facility] Comment: Interpretive Data Fasting glucose >/= [...] 2022. Calcium 8.6 8.5 - 10.3 mg/dL [facility] Bilirubin, total 0.8 0.1 - 1.2 mg/dL [facility] Protein, pl 5.3(L) 6.5 - 8.5 g/dL [facility] Albumin 2.8(L) 3.5 - 5.0 g/dL [facility] Alk phos 186(H) 40 - 130 Units/L [facility] ALT 13 7 - 45 Units/L [facility] AST 16 10 - 45 Units/L [facility] Blood 10/22/2024 2:51 AM CDT 10/22/2024 3:19 AM CDT Jessi Briggs MD LAB BLOOD ORDER SHANT Final Result [facility] [place] [address] * Type and screen (10/22/2024 2:50 AM CDT) Brigitte, indirect Negative ABO Rh O Negative [facility] Blood 10/22/2024 2:50 AM CDT 10/22/2024 3:14 AM CDT Narrative [facility] - 10/22/2024 4:09 AM CDT Has the patient had Daratumumab or Isatuximab in the past 6 months?->Unknown Jessi Briggs MD LAB BLOOD BANK TEST ORDERABLES Final Result Performing Organization Address City/[facility] [place] [address] * POCT glucose (10/22/2024 2:48 AM CDT) Glucose, POC 77 70 - 199 mg/dL Blood 10/22/2024 2:48 AM CDT 10/22/2024 2:48 AM CDT Kalli Cox MD LAB POCT ORDERABLES - DEV ICE Final Result Performing Organization Address [facility] Co de Phone Number [facility] [place] [address] * (ABNORMAL) POCT glucose (10/22/2024 2:47 AM CDT) Glucose, POC 60(L) 70 - 199 mg/dL Blood 10/22/2024 2:47 AM CDT 10/22/2024 2:47 AM CDT Kalli Cox MD LAB POCT ORDERABLES - DEV ICE Final Result Performing Organization Address [facility] Co de Phone Number [facility] [place] [address] * (ABNORMAL) Differential, auto (10/22/2024 2:30 AM CDT) Neutrophil abs 2.33 1.50 - 6.50 K/cumm Imm gran abs 0.02 0.00 - 0.10 K/cumm [facility] Lymphocyte abs 0.73(L) 0.80 - 3.30 K/cumm [facility] Monocyte abs 0.38 0.20 - 0.80 K/cumm [facility] Eosinophil abs 0.02 0.00 - 0.50 K/cumm [facility] Basophil abs 0.00 0.00 - 0.10 K/[facility]umm [facility] Neutrophil pct 66.9 % [facility] Comment: Interpretive Data Percent cell count reference ranges are not reported, since discordance with absolute values may lead to misinterpretation of CBC data. Current Interpretive Data was last revised on 2017. Imm gran pct 0.6 % [facility] Comment: Interpretive Data Percent cell count reference ranges are not reported, since discordance with absolute values may lead to misinterpretation of CBC data. Current Interpretive Data was last revised on 2017. Lymphocyte pct 21.0 % [facility] Comment: Interpretive Data Percent cell count reference ranges are not reported, since discordance with absolute values may lead to misinterpretation of CBC data. Current Interpretive Data was last revised on 2017. Monocyte pct 10.9 % [facility] Comment: Interpretive Data Percent cell count reference ranges are not reported, since discordance with absolute values may lead to misinterpretation of CBC data. Current Interpretive Data was last revised on 2017. Eosinophil pct 0.6 % [facility] Comment: Interpretive Data Percent cell count reference ranges are not reported, since discordance with absolute values may lead to misinterpretation of CBC data. Current Interpretive Data was last revised on 2017. Basophil pct 0.0 % [facility] Comment: Interpretive Data Percent cell count reference ranges are not reported, since discordance with absolute values may lead to misinterpretation of CBC data. Current Interpretive Data was last revised on 2017. Blood 10/22/2024 2:30 AM CDT 10/22/2024 3:19 AM CDT Jessi Briggs MD LAB BLOOD ORDER SHANT Final Result [facility] Department [place] [address] * (ABNORMAL) CBC with auto differential (10/22/2024 2:30 AM CDT) [facility] WBC 3.48(L) 3.80 - 9.90 K/cumm Hgb 7.9(L) 11.9 - 15.5 g/dL [facility] Hct 24.5(L) 35.6 - 45.5 % [facility] Plt 111(L) 150 - 400 K/cumm [facility] MPV 10.7 9.1 - 12.3 fL [facility] RBC 2.73(L) 3.90 - 5.20 M/cumm [facility] MCV 89.7 81.3 - 96.4 fL [facility] MCH 28.9 27.1 - 33.3 pg [facility] MCHC 32.2(L) 32.3 - 35.7 g/dL [facility] RDW CV 15.0(H) 11.1 - 14.9 % [facility] RDW SD 49.4(H) 35.7 - 48.1 fL [facility] NRBC abs 0.00 0.00 - 0.01 K/cumm [facility] Blood 10/22/2024 2:30 AM CDT 10/22/2024 3:19 AM CDT Jessi Briggs MD LAB BLOOD ORDER SHANT Final Result [facility] Department [place] [address] * eGFR (10/21/2024 9:15 PM CDT) Pathologist [facility] eGFR >90 >=60 mL/min/1. 73 m2 Comment: [...] 9:15 PM CDT 10/21/2024 9:32 PM CDT [facility] Sima Briggs MD LAB BLOOD ORDER SHANT Final Result [facility] [place] [address] * (ABNORMAL) Differential, auto (10/21/2024 9:15 PM CDT) Neutrophil abs 2.53 1.50 - 6.50 K/cumm Imm gran abs 0.03 0.00 - 0.10 K/cumm [facility] Lymphocyte abs 0.69(L) 0.80 - 3.30 K/cumm [facility] Monocyte abs 0.27 0.20 - 0.80 K/cumm [facility] Eosinophil abs 0.01 0.00 - 0.50 K/cumm [facility] Basophil abs 0.00 0.00 - 0.10 K/cumm [facility] Neutrophil pct 71.8 % [facility] Comment: Interpretive Data Percent cell count reference ranges are not reported, since discordance with absolute values may lead to misinterpretation of CBC data. Current Interpretive Data was last revised on 2017. Imm gran pct 0.8 % [facility] Comment: Interpretive Data Percent cell count reference ranges are not reported, since discordance with absolute values may lead to misinterpretation of CBC data. Current Interpretive Data was last revised on 2017. Lymphocyte pct 19.5 % [facility] Comment: Interpretive Data Percent cell count reference ranges are not reported, since discordance with absolute values may lead to misinterpretation of CBC data. Current Interpretive Data was last revised on 2017. Monocyte pct 7.6 % [facility] Comment: Interpretive Data Percent cell count reference ranges are not reported, since discordance with absolute values may lead to misinterpretation of CBC data. Current Interpretive Data was last revised on 2017. Eosinophil pct 0.3 % [facility] Comment: Interpretive Data Percent cell count reference ranges are not reported, since discordance with absolute values may lead to misinterpretation of CBC data. Current Interpretive Data was last revised on 2017. Basophil pct 0.0 % [facility] Comment: Interpretive Data Percent cell count reference ranges are not reported, since discordance with absolute values may lead to misinterpretation of CBC data. Current Interpretive Data was last revised on 2017. Blood 10/21/2024 9:15 PM CDT 10/21/2024 9:32 PM CDT Jessi Briggs MD LAB BLOOD ORDER SHANT Final Result [facility] [place] [address] * (ABNORMAL) CBC with auto differential (10/21/2024 9:15 PM CDT) WBC 3.53(L) 3.80 - 9.90 K/cumm Hgb 8.2(L) 11.9 - 15.5 g/dL [facility] Hct 24.5(L) 35.6 - 45.5 % [facility] Plt 114(L) 150 - 400 K/cumm [facility] MPV 10.2 9.1 - 12.3 fL [facility] RBC 2.79(L) 3.90 - 5.20 M/cumm [facility] MCV 87.8 81.3 - 96.4 fL [facility] MCH 29.4 27.1 - 33.3 pg [facility] MCHC 33.5 32.3 - 35.7 g/dL [facility] RDW CV 14.8 11.1 - 14.9 % [facility] RDW SD 48.0 35.7 - 48.1 fL [facility] NRBC abs 0.00 0.00 - 0.01 K/cumm [facility] Blood 10/21/2024 9:15 PM CDT 10/21/2024 9:32 PM CDT Jessi Briggs MD LAB BLOOD ORDER SHANT Final Result Performing Organization Address City/[facility]/ZIP Co de Phone Number [facility] [place] [address] * (ABNORMAL) Infection Prevention MRSA Only (Staphylococcus aureus) Culture Nasal (10/21/2024 9:15 PMCDT) Report Final Report: Methicillin-resist ant Staphylococcus aureus (.) Organism METHICILLIN-RESIST ANT STAPHYLOCOCCUS AUREUS [facility] Nasal 10/21/2024 9:15 PM CDT 10/21/2024 9:33 PM CDT Narrative [facility] - 10/24/2024 11:16 AM CDT Testing performed by [facility] Microbiology Laboratory ([phone]). Jessi Briggs MD LAB MICROBIOLOG Y - GENERAL ORDERABLES Final Result Performing Organization Address City/[facility]/ZIP Co de Phone Number [facility] [place] [address] * (ABNORMAL) Phosphorus (10/21/2024 9:15 PM CDT) Phosphorus, pl 1.9(L) 2.3 - 4.5 mg/dL Blood 10/21/2024 9:15 PM CDT 10/21/2024 9:32 PM CDT Jessi Briggs MD LAB BLOOD ORDER SHANT Final Result Performing Organization Address City/[facility] Co de Phone Number [facility] [place] [address] * Magnesium (10/21/2024 9:15 PM CDT) Pathologist [facility] Magnesium 1.6 1.4 - 2.5 mg/dL Blood 10/21/2024 9:15 PM CDT 10/21/2024 9:32 PM CDT Jessi Briggs MD LAB BLOOD ORDER SHANT Final Result Performing Organization Address [facility] de Phone Number [facility] Department [place] [address] * (ABNORMAL) Comprehensive metabolic panel (10/21/2024 9:15 PM CDT) Pathologist [facility] Sodium 137 135 - 145 mmol/L Potassium, pl 3.5 3.3 - 4.9 mmol/L [facility] Chloride 103 97 - 110 mmol/L [facility] CO2 27 22 - 32 mmol/L [facility] Anion gap 7 2 - 15 mmol/L [facility] BUN 9 6 - 25 mg/dL [facility] Creatinine 0.66 0.60 - 1.10 mg/dL [facility] Glucose 98 70 - 199 mg/dL [facility] Comment: Interpretive Data Fasting glucose >/= [...] 2022. Calcium 8.7 8.5 - 10.3 mg/dL [facility] Bilirubin, total 0.9 0.1 - 1.2 mg/dL [facility] Protein, pl 5.4(L) 6.5 - 8.5 g/dL [facility] Albumin 2.8(L) 3.5 - 5.0 g/dL [facility] Alk phos 191(H) 40 - 130 Units/L [facility] ALT 14 7 - 45 Units/L [facility] AST 17 10 - 45 Units/L [facility] Blood 10/21/2024 9:15 PM CDT 10/21/2024 9:32 PM CDT Jessi Briggs MD LAB BLOOD ORDER SHANT Final Result Performing Organization Address City/[facility]/ZIP Co de Phone Number [facility] [place] [address] * POCT glucose (10/21/2024 8:35 PM CDT) [facility] Glucose, POC 104 70 - 199 mg/dL Blood 10/21/2024 8:35 PM CDT 10/21/2024 8:35 PM CDT Kalli Cox MD LAB POCT ORDERABLES - DEV ICE Final Result [facility] [place] [address] * ECG 12 lead (10/21/2024 8:17 PM CDT) Ventricular Rate EKG/Min 85 BPM [facility] Atrial Rate 85 BPM [facility] KS-Interval (MSEC) 166 ms [facility] QRS-Interval (MSEC) 96 ms [facility] QT-Interval (MSEC) 352 ms [facility] QTc 418 ms [facility] P [place] 65 degrees [facility] R [place] 30 degrees [facility] T [place] [address] [facility] Diagnosis Normal sinus rhythm Low voltage QRS Nonspecific T wave abnormality Abnormal ECG No previous ECGs available Confirmed by Dorinda Hong MD ([id number]) on 10/23/2024 6:21:[address] [facility] 10/21/2024 8:17 PM CDT 10/23/2024 6:21 AM CDT [facility] Sima Briggs MD ECG ORDERABLES Final Result [facility] * Vein Duplex Lower Extremity Bilateral Complete (10/21/2024 4:02 PM CDT) Anatomical Region Laterality Modality Vascular Bilateral Ultrasound 10/21/2024 12:2 5 PM CDT Narrative 10/22/2024 11:07 AM CDT [facility] - Department of Vascular Surgery, Vascular Laboratory [address] [place] [address] Lower Extremity Venous Ultrasound Report Patient Name: SUSANNAH CAMARGO : 1950 (73y 9m) Study Date: 10/21/2024 12:25:49 PM Gender: F Tech: Location: [facility] Ref Provider: JACQUELYN CINTRON Quality: Adequate [...] and pain; r/o DVT - FINDINGS: Performing Program Management Analyst: Taylor Lauren RVT. Bilateral: Venous Doppler signals [...] vein obstruction. HISTORY: Pancreatic Adenocarcinoma presents to [facility] from home for evaluation with daughters accompanying [...] Procedure Note Dano Gleason MD - 10/22/2024 [employer] [facility] - Department of Vascular Surgery,Vascular Laboratory [address] [place] [id number] Lower Extremity Venous Ultrasound Report Patient Name: SUSANNAH CAMARGO : 1950 (73y 9m) Study Date: 10/21/2024 12:25:49 PM Gender: F Tech: Location: [facility] Ref Provider: JACQUELYN CINTRON Quality: Adequate [...] and pain; r/o DVT - FINDINGS: Performing Program Management Analyst: Taylor Lauren RVT. Bilateral: Venous Doppler signals [...] calf veinobstruction. HISTORY: Pancreatic Adenocarcinoma presents to [facility] from home for evaluation withdaughters accompanying r/t [...] Gleason MD, FACS 10/22/2024 10:02:18 AM CDT Jacquelyn Cintron GENERAL ASSIGNMENT REPORTER IMG US PROCEDURES Final Re sult * Transfuse RBC (10/21/2024 3:15 PM CDT) Blood Jacquelyn Cintron NP BLOOD TRANSFUSION ORDERABL ES Final Result Performing Organization Address [facility]/ZIP Co de Phone Number [facility] [place] [address] * Check Sample (10/21/2024 11:17 AM CDT) ABO Rh O Negative [facility] OTHER 10/21/2024 11:1 7 AM CDT 10/21/2024 11:26 AM CDT Kalli Cox MD LAB BLOOD ORDERABLES Gail l Result Performing Organization Address [facility] Co de Phone Number [facility] [place] [address] [facility] * Type and screen (10/21/2024 9:36 AM CDT) ABO Rh O Negative Brigitte, indirect Negative [facility] Blood 10/21/2024 9:36 AM CDT 10/21/2024 9:52 AM CDT Narrative [facility] - 10/21/2024 10:57 AM CDT Has the patient had Daratumumab or Isatuximab in the past 6 months?->Unknown Jacquelyn Cintron NP LAB BLOOD BANK TEST ORDERA BLES Final Result Performing Organization Address [facility] Co de Phone Number [facility] [place] [address] * Prepare RBC: 1 Units (10/21/2024 9:27 AM CDT) [facility] Product code [id number] Unit Number [id number] [facility] Product Blood Type ONEG [facility] Dispense Status PRESUMED TRANSFUSED [facility] Blood 10/21/2024 9:27 AM CDT 10/21/2024 9:28 AM CDT Narrative [facility] - 10/22/2024 12:55 AM CDT Are special requirements needed? (All products are leukoreduced and CMV- safe)- >No Date required:-[id number] LRRBC # of [id number] Reasons:-Hgb <7 g/dL} Jacquelyn Cintron NP BLOOD BANK PRODUCT ORDERAB LES Final Result [facility] [place] [address] * eGFR (10/21/2024 6:50 AM CDT) [facility] eGFR >90 >=60 mL/min/1. 73 m2 Comment: [...] CDT 10/21/2024 7:13 AM CDT us Theresa Cavazos Winsome GENERAL ASSIGNMENT REPORTER LAB BLOOD ORDERABLES Final Result [facility] [place] [address] * (ABNORMAL) Differential, auto (10/21/2024 6:50 AM CDT) Neutrophil abs 1.77 1.50 - 6.50 K/cumm Imm gran abs 0.01 0.00 - 0.10 K/cumm [facility] Lymphocyte abs 0.54(L) 0.80 - 3.30 K/cumm [facility] Monocyte abs 0.18(L) 0.20 - 0.80 K/cumm [facility] Eosinophil abs 0.02 0.00 - 0.50 K/cumm [facility] Basophil abs 0.01 0.00 - 0.10 K/cumm [facility] Neutrophil pct 70.0 % [facility] Comment: Interpretive Data Percent cell count reference ranges are not reported, since discordance with absolute values may lead to misinterpretation of CBC data. Current Interpretive Data was last revised on 2017. Imm gran pct 0.4 % [facility] Comment: Interpretive Data Percent cell count reference ranges are not reported, since discordance with absolute values may lead to misinterpretation of CBC data. Current Interpretive Data was last revised on 2017. Lymphocyte pct 21.3 % [facility] Comment: Interpretive Data Percent cell count reference ranges are not reported, since discordance with absolute values may lead to misinterpretation of CBC data. Current Interpretive Data was last revised on 2017. Monocyte pct 7.1 % [facility] Comment: Interpretive Data Percent cell count reference ranges are not reported, since discordance with absolute values may lead to misinterpretation of CBC data. Current Interpretive Data was last revised on 2017. Eosinophil pct 0.8 % [facility] Comment: Interpretive Data Percent cell count reference ranges are not reported, since discordance with absolute values may lead to misinterpretation of CBC data. Current Interpretive Data was last revised on 2017. Basophil pct 0.4 % [facility] Comment: Interpretive Data Percent cell count reference ranges are not reported, since discordance with absolute values may lead to misinterpretation of CBC data. Current Interpretive Data was last revised on 2017. Blood 10/21/2024 6:50 AM CDT 10/21/2024 7:00 AM CDT Theresa Schumacher NP LAB BLOOD ORDERABLES Final Result Performing Organization Address City/[facility]/ZIP Co de Phone Number [facility] [place] [address] * (ABNORMAL) CBC with auto differential (10/21/2024 6:50 AM CDT) WBC 2.53(L) 3.80 - 9.90 K/cumm Hgb 6.7(L) 11.9 - 15.5 g/dL [facility] Hct 20.7(L) 35.6 - 45.5 % [facility] Plt 110(L) 150 - 400 K/cumm [facility] MPV 10.5 9.1 - 12.3 fL [facility] RBC 2.31(L) 3.90 - 5.20 M/cumm [facility] MCV 89.6 81.3 - 96.4 fL [facility] MCH 29.0 27.1 - 33.3 pg [facility] MCHC 32.4 32.3 - 35.7 g/dL [facility] RDW CV 14.9 11.1 - 14.9 % [facility] RDW SD 48.6(H) 35.7 - 48.1 fL [facility] NRBC abs 0.00 0.00 - 0.01 K/cumm [facility] Blood 10/21/2024 6:50 AM CDT 10/21/2024 7:00 AM CDT Theresa Schumacher NP LAB BLOOD ORDERABLES Final Result Performing Organization Address City/[facility]/ZIP Co de Phone Number [facility] [place] [address] * (ABNORMAL) Comprehensive metabolic panel (10/21/2024 6:50 AM CDT) Sodium 137 135 - 145 mmol/L Potassium, pl 3.4 3.3 - 4.9 mmol/L [facility] Chloride 104 97 - 110 mmol/L [facility] CO2 28 22 - 32 mmol/L [facility] Anion gap 5 2 - 15 mmol/L [facility] BUN 11 6 - 25 mg/dL [facility] Creatinine 0.65 0.60 - 1.10 mg/dL [facility] Glucose 108 70 - 199 mg/dL [facility] Comment: Interpretive Data Fasting glucose >/= [...] 2022. Calcium 8.2(L) 8.5 - 10.3 mg/dL [facility] Bilirubin, total 0.5 0.1 - 1.2 mg/dL [facility] Protein, pl 5.0(L) 6.5 - 8.5 g/dL [facility] Albumin 2.6(L) 3.5 - 5.0 g/dL [facility] Alk phos 182(H) 40 - 130 Units/L [facility] ALT 13 7 - 45 Units/L [facility] AST 16 10 - 45 Units/L [facility] Blood 10/21/2024 6:50 AM CDT 10/21/2024 7:00 AM CDT us Theresa Schumacher NP LAB BLOOD ORDERABLES Final Result [facility] [place] [address] * Urinalysis reflex to microscopic and culture Urine, clean voided (10/21/2024 12:16 AM CDT) Color, ur Straw Yellow Clarity, ur Clear Clear [facility] Specific gravity, ur 1.013 1.003 - 1.030 [facility] pH, urine 6.0 [facility] Comment: Interpretive Data U rine pH is affected by diet, medications, systemic acid-base disturbances, and renal tubular function. pH may affect urinary stone formation. For example, urine pH below 6.0 may help reduce the tendency for calcium phosphate stones and pH greater than 6.0 may reduce the tendency for uric acid stone formation. Source: [facility] [employer] Current Interpretive Data was last revised on 2017 Protein, ur ql Trace Negative [facility] Glucose, ur ql Negative Negative [facility] Ketones, ur Negative Negative [facility] Bilirubin, ur Negative Negative [facility] Blood, ur Negative Negative [facility] Urobilinogen, ur <2.0 <2.0 mg/dL [facility] Nitrite, ur Negative Negative [facility] Leukocyte esterase, ur Negative Negative [facility] UA reflex comment Reflex conditions for microscopic UA and culture not met. [facility] Urine, clean voided 10/21/2024 12:16 AM CDT 10/21/2024 12:34 AM CDT Theresa Schumacher NP LAB MICROBIOLOGY - G ENERAL ORDERABLES Final Result [facility] [place] [address] * (ABNORMAL) Protime-INR (10/21/2024 12:16 AM CDT) PT 17.4(H) 9.7 - 13.0 sec INR 1.60(H) 0.90 - 1.20 [facility] Comment: Interpretive data Oral anticoagulant therapeutic ranges: Venous thromboembolism prophylaxis or treatment: 2.0-3.0 CARDIOLOGY Standard range: 2.0-3.0 High-intensity range: 2.5-3.5 Refer to indication-specific guidelines for appropriate target ranges for prosthetic heart valve replacement. Current interpretive data was last revised on 2019. Blood 10/21/2024 12:1 6 AM CDT 10/21/2024 12:43 AM CDT Narrative ENRIQUE BETANCOURT - 10/21/2024 1:03 AM CDT Baseline prior to rivaroxaban initiation us Theresa Schumacher GENERAL ASSIGNMENT REPORTER LAB BLOOD ORDERABLES Final [facility] Department [place] [address] * X-ray chest 2 views (10/21/2024 12:07 [...] pneumothorax. Electronically signed by: Aubrey Grigsby M.D. us Theresa Schumacher GENERAL ASSIGNMENT REPORTER IMG XR PROCEDURES Fi nal Result * POC Blood Gas and Chemistries, Arterial - (10/20/2024 11:05 PM CDT) Lactate POC 0.9 0.7 - 2.0 mmol/L Blood 10/20/2024 11:0 5 PM CDT 10/20/2024 11:05 PM CDT Kalli Cox MD LAB POCT ORDERABLES - DEV ICE Final Result [facility] Department [place] [address] * eGFR (10/20/2024 10:38 PM CDT) eGFR [...] Schumacher NP LAB BLOOD ORDERABLES Final [facility] [place] [address] * (ABNORMAL) Differential, auto (10/20/2024 10:38 PM CDT) Neutrophil abs 2.30 1.50 - 6.50 K/cumm Imm gran abs 0.02 0.00 - 0.10 K/cumm [facility] Lymphocyte abs 0.51(L) 0.80 - 3.30 K/cumm [facility] Monocyte abs 0.18(L) 0.20 - 0.80 K/cumm [facility] Eosinophil abs 0.01 0.00 - 0.50 K/cumm [facility] Basophil abs 0.00 0.00 - 0.10 K/cumm [facility] Neutrophil pct 76.1 % [facility] Comment: Interpretive Data Percent cell count reference ranges are not reported, since discordance with absolute values may lead to misinterpretation of CBC data. Current Interpretive Data was last revised on 2017. Imm gran pct 0.7 % [facility]ER [facility] Comment: Interpretive Data Percent cell count reference ranges are not reported, since discordance with absolute values may lead to misinterpretation of CBC data. Current Interpretive Data was last revised on 2017. Lymphocyte pct 16.9 % [facility] Comment: Interpretive Data Percent cell count reference ranges are not reported, since discordance with absolute values may lead to misinterpretation of CBC data. Current Interpretive Data was last revised on 2017. Monocyte pct 6.0 % [facility] Comment: Interpretive Data Percent cell count reference ranges are not reported, since discordance with absolute values may lead to misinterpretation of CBC data. Current Interpretive Data was last revised on 2017. Eosinophil pct 0.3 % [facility] Comment: Interpretive Data Percent cell count reference ranges are not reported, since discordance with absolute values may lead to misinterpretation of CBC data. Current Interpretive Data was last revised on 2017. Basophil pct 0.0 % [facility] Comment: Interpretive Data Percent cell count reference ranges are not reported, since discordance with absolute values may lead to misinterpretation of CBC data. Current Interpretive Data was last revised on 2017. Blood 10/20/2024 10:3 8 PM CDT 10/20/2024 11:22 PM CDT Theresa Schumacher GENERAL ASSIGNMENT REPORTER LAB BLOOD ORDERABLES Final Result [facility] Department [place] [address] * Respiratory pathogen panel Nasopharyngeal (10/20/2024 10:38 PM CDT) Pathologist [facility] Influenza A RNA Not Detected Not Detected Influenza B RNA Not Detected Not Detected [facility] RSV RNA Not Detected Not Detected [facility] COVID-19 RNA Not Detected Not Detected [facility] Coronavirus 229E RNA Not Detected Not Detected [facility] Coronavirus HKU1 RNA Not Detected Not Detected [facility] Coronavirus NL63 RNA Not Detected Not Detected [facility] Coronavirus OC43 RNA Not Detected Not Detected [facility] Adenovirus DNA Not Detected Not Detected [facility] Metapneumovirus RNA Not Detected Not Detected [facility] Rhinovirus/Enterov irus RNA Not Detected Not Detected [facility] Parainfluenza 1 RNA Not Detected Not Detected [facility] Parainfluenza 2 RNA Not Detected Not Detected [facility] Parainfluenza 3 RNA Not Detected Not Detected [facility] Parainfluenza 4 RNA Not Detected Not Detected [facility] B. pertussis DNA Not Detected Not Detected [facility] B. parapertussis DNA Not Detected Not Detected [facility] C. pneumoniae DNA Not Detected Not Detected [facility] M. pneumoniae DNA Not Detected Not Detected [facility] Nasopharyngeal 10/20/2024 10 :38 PM CDT 10/20/2024 11:47 PM CDT Narrative [facility] - 10/21/2024 12:44 AM CDT Is the Patient experiencing symptoms consistent with COVID?->Yes Surveillance testing for transplant patient?->No Interpretive Data The Spl[employer] FilmArray Respiratory Panel (RP2.1) assay is a [...] assay has FDA clearance for testing of GENERAL ASSIGNMENT REPORTER swabs. The performance of additional specimen types has been assessed by the performing laboratory. The performance characteristics of this assay have been determined by [facility]. Current interpretive data was last revised on 22. Theresa Schumacher GENERAL ASSIGNMENT REPORTER LAB MICROBIOLOGY - G ENERAL ORDERABLES Final Result [facility] Department [place] [address] * (ABNORMAL) CBC with auto differential (10/20/2024 10:38 PM CDT) WBC 3.02(L) 3.80 - 9.90 K/cumm Hgb 7.1(L) 11.9 - 15.5 g/dL [facility] Hct 21.9(L) 35.6 - 45.5 % [facility] Plt 124(L) 150 - 400 K/cumm [facility] MPV 10.5 9.1 - 12.3 fL [facility] RBC 2.46(L) 3.90 - 5.20 M/cumm [facility] MCV 89.0 81.3 - 96.4 fL [facility] MCH 28.9 27.1 - 33.3 pg [facility] MCHC 32.4 32.3 - 35.7 g/dL [facility] RDW CV 14.7 11.1 - 14.9 % [facility] RDW SD 47.4 35.7 - 48.1 fL [facility] NRBC abs 0.00 0.00 - 0.01 K/cumm [facility] Blood 10/20/2024 10:3 8 PM CDT 10/20/2024 11:22 PM CDT Theresa Schumacher NP LAB BLOOD ORDERABLES Final Result [facility] [place] [address] * Blood culture Blood (10/20/2024 10:38 PM CDT) [facility] Report Final Report: No growth Blood 10/20/2024 10:3 8 PM CDT 10/21/2024 12:22 AM CDT Narrative [facility] - 10/25/2024 7:01 AM CDT From a [...] performance characteristics have been verified by the [facility] Microbiology Laboratory. For questions about this culture, contact the Microbiology Laboratory at [phone]. Interpretive data was last revised on 24. Theresa Schumacher LAB MICROBIOLOGY - [facility] ORDERABLES Final Result ENRIQUE BETANCOURT [facility] Department [place] [address] * Blood culture Blood (10/20/2024 10:38 PM CDT) Report Final Report: No growth Blood 10/20/2024 10:3 8 PM CDT 10/21/2024 12:12 AM CDT [facility] ENRIQUE [facility] 10/25/2024 7:01 AM CDT 1. Blood cultures [...] performance characteristics have been verified by the [facility] Microbiology Laboratory. For questions about this culture, contact the Microbiology Laboratory at [phone]. Interpretive data was last revised on 24. Theresa Schumacher NP LAB MICROBIOLOGY - G ENERAL ORDERABLES Final Result [facility] Department [place] [address] * (ABNORMAL) Comprehensive metabolic panel (10/20/2024 10:38 PM CDT) Sodium 138 135 - 145 mmol/L Potassium, pl 3.6 3.3 - 4.9 mmol/L [facility] Chloride 104 97 - 110 mmol/L [facility] CO2 26 22 - 32 mmol/L [facility] Anion gap 8 2 - 15 mmol/L [facility] BUN 13 6 - 25 mg/dL [facility] Creatinine 0.74 0.60 - 1.10 mg/dL [facility] Glucose 100 70 - 199 mg/dL [facility] Comment: Interpretive Data Fasting glucose >/= [...] 2022. Calcium 8.7 8.5 - 10.3 mg/dL [facility] Bilirubin, total 0.7 0.1 - 1.2 mg/dL [facility] Protein, pl 5.2(L) 6.5 - 8.5 g/dL [facility] Albumin 2.8(L) 3.5 - 5.0 g/dL [facility] Alk phos 195(H) 40 - 130 Units/L [facility] ALT 13 7 - 45 Units/L [facility] AST 18 10 - 45 Units/L [facility] Blood 10/20/2024 10:3 8 PM CDT 10/20/2024 11:23 PM CDT us Theresa Schumacher GENERAL ASSIGNMENT REPORTER LAB BLOOD ORDERABLES Final Result [facility] [place] [address] * eGFR (10/17/2024 10:06 AM CDT) eGFR [...] was last reviewed 2021. Testing performed by: [facility], [address] [place] [address] Blood 10/17/2024 10:0 6 AM CDT 10/17/2024 10:26 AM CDT us Kalli Cox MD LAB BLOOD ORDERABLES Gail l Result [facility] [address] [facility]. Department of Laboratories [place], [place] [id number] * Differential, auto (10/17/2024 10:06 AM CDT) Neutrophil abs 3.45 1.50 - 6.50 K/cumm Comment:Testing performed by : [facility] 2, [address] [place] [address] Imm gran abs 0.02 0.00 - 0.10 K/cumm [facility] Comment:Testing performed by : [facility] 2, [address] [place] [address] Lymphocyte abs 1.10 0.80 - 3.30 K/cumm [facility] Comment:Testing performed by : [facility], [address] [place] [address] Monocyte abs 0.28 0.20 - 0.80 K/cumm [facility]ER [facility] Comment:Testing performed by : [facility] 2, [address] [place] [address] Eosinophil abs 0.05 0.00 - 0.50 K/cumm [facility] Comment:Testing performed by : [facility] 2, [address] [place] [address] Basophil abs 0.01 0.00 - 0.10 K/cumm [facility]ER [facility] Comment:Testing performed by : [facility] 2, [address] [place] [address] Neutrophil pct 70.3 % [facility] Comment: Interpretive Data Percent cell count reference ranges are not reported, since discordance with absolute values may lead to misinterpretation of CBC data. Current Interpretive Data was last revised on 2017. Testing performed by: [facility] 2, [address] [place] [address] Imm gran pct 0.4 % [facility] Comment: Interpretive Data Percent cell count reference ranges are not reported, since discordance with absolute values may lead to misinterpretation of CBC data. Current Interpretive Data was last revised on 2017. Testing performed by: [facility], [facility], [address] [place] [address] Lymphocyte pct 22.4 % ENRIQUE TORRES Comment: Interpretive Data Percent cell count reference ranges are not reported, since discordance with absolute values may lead to misinterpretation of CBC data. Current Interpretive Data was last revised on 2017. Testing performed by: [facility], [facility], [address] [place] [address] Monocyte pct 5.7 % ENRIQUE TORRES Comment: Interpretive Data Percent cell count reference ranges are not reported, since discordance with absolute values may lead to misinterpretation of CBC data. Current Interpretive Data was last revised on 2017. Testing performed by: [facility], [facility], [address] [place] [address] Eosinophil pct 1.0 % ENRIQUE TORRES Comment: Interpretive Data Percent cell count reference ranges are not reported, since discordance with absolute values may lead to misinterpretation of CBC data. Current Interpretive Data was last revised on 2017. Testing performed by: [facility], [facility], [address] [place] [address] Basophil pct 0.2 % ENRIQUE TORRES Comment: Interpretive Data Percent cell count reference ranges are not reported, since discordance with absolute values may lead to misinterpretation of CBC data. Current Interpretive Data was last revised on 2017. Testing performed by: [facility], [facility], [address] [place] [address] Blood 10/17/2024 10:0 6 AM CDT 10/17/2024 10:09 AM CDT us Moh'Maurisio Cox MD LAB BLOOD ORDERABLES Gail l Result [facility] [address] [facility] Department [place] [address] * (ABNORMAL) CBC with auto differential (10/17/2024 10:06 AM CDT) WBC 4.91 3.80 - 9.90 K/cumm Comment:Testing performed by : [place] [address], [address] [place] [address] Hgb 9.0(L) 11.9 - 15.5 g/dL ENRIQUE BETANCOURTWCH Comment:Testing performed by : [place] [address], [address] [place] [address] Hct 28.8(L) 35.6 - 45.5 % ENRIQUE BRADFORDCH Comment:Testing performed by : [place] [address], [place] [address] Plt 202 150 - 400 K/cumm ENRIQUE BRADFORDCH Comment:Testing performed by : [place] [address], [address] [place] [address] MPV 9.2 9.1 - 12.3 fL ENRIQUE TORRES Comment:Testing performed by : [place] [address], [address] [place] [address] RBC 3.15(L) 3.90 - 5.20 M/cumm ENRIQUE BRADFORDCH Comment:Testing performed by : [place] [address], [address] [place] [address] MCV 91.4 81.3 - 96.4 fL ENRIQUE [facility] Comment:Testing performed by : [place] [address], [address] [place] [address] MCH 28.6 27.1 - 33.3 pg CERMARCELO BETANCOURTWCH Comment:Testing performed by : [place] [address], [address], [place] [address] MCHC 31.3(L) 32.3 - 35.7 g/dL ENRIQUE [facility] Comment:Testing performed by : [facility], [facility] 2, [address] [place] [address] RDW CV 15.0(H) 11.1 - 14.9 % ENRIQUE TORRES Comment:Testing performed by : [facility], [facility] 2, [address] [place] [address] RDW SD 50.7(H) 35.7 - 48.1 fL ENRIQUE TORRES Comment:Testing performed by : [facility], [facility], [address] [place] [address] ANC Prelim 3.45 1.50 - 6.50 K/cumm ENRIQUE TORRES Comment: Interpretive Data The rapid ANC is a preliminary automated count and may vary from the final ANC (Neut Abs) reported in the WBC differential that follows. Current interpretive data was last revised 2024. Testing performed by: [facility], [facility], [address] [place] [address] Blood 10/17/2024 10:0 6 AM CDT 10/17/2024 10:09 AM CDT [facility] Cox MD LAB BLOOD ORDERABLES Gail garcia Result ENRIQUE [facility] [address] [place] [address] * (ABNORMAL) Comprehensive metabolic panel (10/17/2024 10:06 AM CDT) Sodium 139 135 - 145 mmol/L Comment:Testing performed by : [facility], [address] [place] [address] Potassium, pl 4.0 3.3 - 4.9 mmol/L ENRIQUE TORRES Comment:Testing performed by : [facility], [address] [place] [address] Chloride 104 97 - 110 mmol/L ENRIQUE TORRES Comment:Testing performed by : [facility], [address], [place] [address] CO2 28 22 - 32 mmol/L CERNER [facility] Comment:Testing performed by : [facility], [address], [place] [address] Anion gap 7 2 - 15 mmol/L [facility] Comment:Testing performed by : [facility], [address], [place] [address] BUN 15 6 - 25 mg/dL [facility]ER [facility] Comment:Testing performed by : [facility], [address], [place] [address] Creatinine 0.70 0.60 - 1.10 mg/dL C[facility]ER [facility] Comment:Testing performed by : [facility], [address], [place] [address] Glucose 90 70 - 199 mg/dL CERNER [...] was last revised 2022. Testing performed by: [facility], [address], [place] [address] Calcium 8.8 8.5 - 10.3 mg/dL CERNER [facility] Comment:Testing performed by : [facility], [address], [place] [address] Bilirubin, total 0.6 0.1 - 1.2 mg/dL CERNER [facility] Comment:Testing performed by : [facility], [address], [place] [address] Protein, pl 5.8(L) 6.5 - 8.5 g/dL CERNER [facility] Comment:Testing performed by : [facility], [address], [place] [address] Albumin 3.3(L) 3.5 - 5.0 g/dL CERMARCELO BJW Comment:Testing performed by : [facility], [address], [place] [address] Alk phos 325(H) 40 - 130 Units/L CERMARCELO BJWCH Comment:Testing performed by : [facility], [address], [place] [address] ALT 29 7 - 45 Units/L CERMARCELO BJWCH Comment:Testing performed by : [facility], [address], [place] [address] AST 27 10 - 45 Units/L CERMARCELO BJWCH Comment:Testing performed by : [facility], [address], [place] [address] Blood 10/17/2024 10:0 6 AM CDT 10/17/2024 10:26 AM CDT [facility]Maurisio Cox MD LAB BLOOD ORDERABLES Gail l Result ENRIQUE TORRES [address] [place] [address] * eGFR (10/14/2024 8:30 AM CDT) eGFR [...] was last reviewed 2021. Testing performed by: [facility], [address] [place] [address] Blood 10/14/2024 8:30 AM CDT 10/14/2024 8:54 AM CDT [facility]Maurisio Cox MD LAB BLOOD ORDERABLES Gail l Result [facility] [address] [address] [place] [address] * Differential, auto (10/14/2024 8:30 AM CDT) Neutrophil abs 3.00 1.50 - 6.50 K/cumm Comment:Testing performed by : [facility] 2, [address] [place] [address] Imm gran abs 0.00 0.00 - 0.10 K/cumm CERNER [facility] Comment:Testing performed by : [facility] 2, [address] [place] [address] Lymphocyte abs 1.24 0.80 - 3.30 K/cumm CERMARCELO BJWCH Comment:Testing performed by : [facility] 2, [address] [place] [address] Monocyte abs 0.80 0.20 - 0.80 K/cumm CERMARCELO BJWCH Comment:Testing performed by : [facility] 2, [address] [place] [address] Eosinophil abs 0.12 0.00 - 0.50 K/cumm CERNER [facility] Comment:Testing performed by : [facility] 2, [address] [place] [address] Basophil abs 0.03 0.00 - 0.10 K/cumm CERNER [facility] Comment:Testing performed by : [facility] 2, [address] [place] [address] Neutrophil pct 57.8 % CERNER [facility] Comment: Interpretive Data Percent cell count reference ranges are not reported, since discordance with absolute values may lead to misinterpretation of CBC data. Current Interpretive Data was last revised on 2017. Testing performed by: [facility], [facility], [address] [place] [address] Imm gran pct 0.0 % CERNER [facility] Comment: Interpretive Data Percent cell count reference ranges are not reported, since discordance with absolute values may lead to misinterpretation of CBC data. Current Interpretive Data was last revised on 2017. Testing performed by: [facility], [facility] 2, [address] [place] [address] Lymphocyte pct 23.9 % CERNER [facility] Comment: Interpretive Data Percent cell count reference ranges are not reported, since discordance with absolute values may lead to misinterpretation of CBC data. Current Interpretive Data was last revised on 2017. Testing performed by: [facility], [facility] 2, [address] [place] [address] Monocyte pct 15.4 % C[facility]ER [facility] Comment: Interpretive Data Percent cell count reference ranges are not reported, since discordance with absolute values may lead to misinterpretation of CBC data. Current Interpretive Data was last revised on 2017. Testing performed by: [facility], [facility] 2, [address] [place] [address] Eosinophil pct 2.3 % C[facility]ER [facility] Comment: Interpretive Data Percent cell count reference ranges are not reported, since discordance with absolute values may lead to misinterpretation of CBC data. Current Interpretive Data was last revised on 2017. Testing performed by: [facility], [facility] 2, [address] [place] [address] Basophil pct 0.6 % [facility]ER [facility] Comment: Interpretive Data Percent cell count reference ranges are not reported, since discordance with absolute values may lead to misinterpretation of CBC data. Current Interpretive Data was last revised on 2017. Testing performed by: [facility], [facility], [address] [place] [address] Blood 10/14/2024 8:30 AM CDT 10/14/2024 8:33 AM CDT Kalli Cox MD LAB BLOOD ORDERABLES Gail l Result [facility] [address] [facility] [place] [address] * (ABNORMAL) CBC with auto differential (10/14/2024 8:30 AM CDT) WBC 5.19 3.80 - 9.90 K/cumm Comment:Testing performed by : [place] [address] [place] [address] Hgb 8.8(L) 11.9 - 15.5 g/dL ENRIQUE BRADFORD Comment:Testing performed by : [place] [address] [place] [address] Hct 27.5(L) 35.6 - 45.5 % [facility] Comment:Testing performed by : [place] [address] [place] [address] Plt 209 150 - 400 K/cumm [facility] Comment:Testing performed by : [place] [address] [place] [address] MPV 9.7 9.1 - 12.3 fL [facility] Comment:Testing performed by : [place] [address] [place] [address] RBC 3.04(L) 3.90 - 5.20 M/cumm ENRIQUE TORRES Comment:Testing performed by : [place] [address], [place] [address] MCV 90.5 81.3 - 96.4 fL ENRIQUE BETANCOURTWSTEVE Comment:Testing performed by : [place] [address], [place] [address] MCH 28.9 27.1 - 33.3 pg ENRIQUE TORRES Comment:Testing performed by : [facility], [facility] 2, [address] [place] [address] MCHC 32.0(L) 32.3 - 35.7 g/dL ENRIQUE TORRES Comment:Testing performed by : [facility], [facility] 2, [address] [place] [address] RDW CV 14.4 11.1 - 14.9 % ENRIQUE TORRES Comment:Testing performed by : [facility] 2, [address] [place] [address] RDW SD 47.6 35.7 - 48.1 fL ENRIQUE TORRES Comment:Testing performed by : [facility] 2, [address] [place] [address] ANC Prelim 3.00 1.50 - 6.50 K/cumm ENRIQUE TORRES Comment: Interpretive Data The rapid ANC is a preliminary automated count and may vary from the final ANC (Neut Abs) reported in the WBC differential that follows. Current interpretive data was last revised 2024. Testing performed by: [facility], [facility], [address] [place] [address] Blood 10/14/2024 8:30 AM CDT 10/14/2024 8:33 AM CDT us Ibeth'Maurisio Cox MD LAB BLOOD ORDERABLES Gail l Result ENRIQUE BETANCOURTCH [address] [facility]. Department of [facility] [place] [id number] * (ABNORMAL) Cancer antigen 19-9 (10/14/2024 8:30 AM CDT) CA 19-9 ag 46.8(H) 0.0 - 35.0 units/mL Comment: Interpretive Data The Sree CA 19-9 assay procedure was used. Results from different manufacturers or methods may not be comparable. Serial testing should be performed using the same method. Testing performed by: [facility] [facility], [place]., [address] Blood 10/14/2024 8:30 AM CDT 10/14/2024 10:46 AM CDT [facility] MD LAB BLOOD ORDERABLES Gail l Result Performing Organization Address [facility] [facility] Co de Phone Number [facility] [address] [facility] [facility] [place] [address] * TSH (10/14/2024 8:30 AM CDT) Thyroid Stimulating Hormone 0.52 0.30 - 4.20 mcIUnit/mL Comment:Testing performed by : [facility], [address] [place] [address] Blood 10/14/2024 8:30 AM CDT 10/14/2024 8:54 AM CDT [facility] LAB BLOOD ORDERABLES Gail l Result Performing Organization Address [facility] Co de Phone Number [facility] [address] [facility]. [place] [address] * (ABNORMAL) T4, free (10/14/2024 8:30 AM CDT) Free T4 1.95(H) 0.90 - 1.70 ng/dL Comment:Testing performed by : [facility], [address] [place] [address] Blood 10/14/2024 8:30 AM CDT 10/14/2024 8:54 AM CDT [facility] MD LAB BLOOD ORDERABLES Gail l Result [facility] [address] Department [place] [address] * (ABNORMAL) Comprehensive metabolic panel (10/14/2024 8:30 AM CDT) Sodium 138 135 - 145 mmol/L Comment:Testing performed by : [facility], [address], [place] [address] Potassium, pl 3.7 3.3 - 4.9 mmol/L [facility] Comment:Testing performed by : [facility], [address], [place] [address] Chloride 103 97 - 110 mmol/L [facility] Comment:Testing performed by : [facility], [address], [place] [address] CO2 23 22 - 32 mmol/L [facility] Comment:Testing performed by : [facility], [address], [place] [address] Anion gap 12 2 - 15 mmol/L [facility] Comment:Testing performed by : [facility], [address], [place] [address] BUN 14 6 - 25 mg/dL [facility] Comment:Testing performed by : [facility], [address], [place] [address] Creatinine 0.74 0.60 - 1.10 mg/dL [facility] Comment:Testing performed by : [facility], [address], [place] [address] Glucose 94 70 - 199 mg/dL CERNER [...] was last revised 2022. Testing performed by: [facility], [address], [place] [address] Calcium 9.1 8.5 - 10.3 mg/dL [facility] Comment:Testing performed by : [facility], [address], [place] [address] Bilirubin, total 0.6 0.1 - 1.2 mg/dL [facility] Comment:Testing performed by : [facility], [address], [place] [address] Protein, pl 5.7(L) 6.5 - 8.5 g/dL [facility] Comment:Testing performed by : [facility], [address], [place] [address] Albumin 3.4(L) 3.5 - 5.0 g/dL [facility] Comment:Testing performed by : [facility], [address], [place] [address] Alk phos 387(H) 40 - 130 Units/L [facility] Comment:Testing performed by : [facility], [address], [place] [address] ALT 37 7 - 45 Units/L [facility] Comment:Testing performed by : [facility], [address], [place] [address] AST 22 10 - 45 Units/L [facility] Comment:Testing performed by : [facility], [address], [place] [address] Blood 10/14/2024 8:30 AM CDT 10/14/2024 8:54 AM CDT us Moh'Maurisio Cox MD LAB BLOOD ORDERABLES Gail l Result [facility] [address] [place] [address] * IR Port Placement Chest > 5 Years (10/10/2024 10:16 AM CDT) Anatomical Region Laterality Modality Chest N/A X-Ray Angiograph y 10/10/2024 10:3 1 AM CDT Impressions 10/10/2024 10:31 AM CDT Successful chest wall port placement. PLAN: The catheter is ready for immediate use. Please note that a power injectable port was placed. When treatment is completed, removal can be scheduled by calling [facility] - [phone] [facility] - [phone] Electronically signed by: Feliciano Martinez PA-C Narrative [...] was obtained. Prior to beginning the procedure, Glasgow Protocol was used to confirm the patient's [...] No complications are seen. Procedure Note Feliciano Matrinez PA - 10/10/2024 EXAMINATION: PORT PLACEMENT USING [...] was obtained. Prior to beginning the procedure, Glasgow Protocol was used to confirm the patient's [...] completed, removal can be scheduled by calling [facility] - [phone] [facility] - [phone] Electronically signed by: Feliciano Martinez PA-C [facility]Maurisio Cox MD IMG IR PROCEDURES Final R [...] obtained. The study was interpreted on the Imperva workstation. The mean liver SUV (reported for quality assurance nurse purposes) is 1.7. The total scanned area [...] obtained. The study was interpreted on the Imperva workstation. The mean liver SUV (reported for quality assurance nurse purposes) is 1.7. The total scanned area [...] it. Electronically signed by: Johan Krishna MD Kalli Cox MD IMG PET PROCEDURES Final Result [...] was last reviewed 2021. Testing performed by: [facility], [address] [facility], [place] [address] Blood 10/07/2024 4:00 PM CDT 10/07/2024 4:36 PM CDT Kalli Cox MD LAB BLOOD ORDERABLES Gail l Result [facility] [address] [facility]. [place] [address] * (ABNORMAL) Differential, auto (10/07/2024 4:00 PM CDT) Neutrophil abs 4.52 1.50 - 6.50 K/cumm Comment:Testing performed by : [facility], [facility] [address], [address] [place] [address] Imm gran abs 0.01 0.00 - 0.10 K/cumm C[facility]ER [facility] Comment:Testing performed by : [facility], [facility] 2, [address] [place] [address] Lymphocyte abs 0.48(L) 0.80 - 3.30 K/cumm C[facility]ER [facility] Comment:Testing performed by : [facility], [facility] 2, [address] [place] [address] Monocyte abs 0.37 0.20 - 0.80 K/cumm CERNER [facility] Comment:Testing performed by : [facility], [facility] 2, [address] [place] [address] Eosinophil abs 0.01 0.00 - 0.50 K/cumm CERNER B[facility] Comment:Testing performed by : [facility], [facility] 2, [address] [place] [address] Basophil abs 0.01 0.00 - 0.10 K/cumm C[facility]ER [facility] Comment:Testing performed by : [facility], [facility] 2, [address] [place] [address] Neutrophil pct 83.6 % C[facility]ER [facility] Comment: Interpretive Data Percent cell count reference ranges are not reported, since discordance with absolute values may lead to misinterpretation of CBC data. Current Interpretive Data was last revised on 2017. Testing performed by: [facility], [facility] 2, [address] [place] [address] Imm gran pct 0.2 % C[facility]ER [facility] Comment: Interpretive Data Percent cell count reference ranges are not reported, since discordance with absolute values may lead to misinterpretation of CBC data. Current Interpretive Data was last revised on 2017. Testing performed by: [facility], [facility] 2, [address] [place] [address] Lymphocyte pct 8.9 % C[facility]ER [facility] Comment: Interpretive Data Percent cell count reference ranges are not reported, since discordance with absolute values may lead to misinterpretation of CBC data. Current Interpretive Data was last revised on 2017. Testing performed by: [facility], [facility] 2, [address] [place] [address] Monocyte pct 6.9 % ENRIQUE TORRES Comment: Interpretive Data Percent cell count reference ranges are not reported, since discordance with absolute values may lead to misinterpretation of CBC data. Current Interpretive Data was last revised on 2017. Testing performed by: [facility], [facility] 2, [address] [place] [address] Eosinophil pct 0.2 % ENRIQUE TORRES Comment: Interpretive Data Percent cell count reference ranges are not reported, since discordance with absolute values may lead to misinterpretation of CBC data. Current Interpretive Data was last revised on 2017. Testing performed by: [facility], [facility] 2, [address] [place] [address] Basophil pct 0.2 % ENRIQUE TORRES Comment: Interpretive Data Percent cell count reference ranges are not reported, since discordance with absolute values may lead to misinterpretation of CBC data. Current Interpretive Data was last revised on 2017. Testing performed by: [facility], [facility] 2, [address] [place] [address] Blood 10/07/2024 4:00 PM CDT 10/07/2024 4:01 PM CDT [facility]Maurisio Cox MD LAB BLOOD ORDERABLES Gail l Result [facility] [address] [facility]. Department [place] [address] * (ABNORMAL) CBC with auto differential (10/07/2024 4:00 PM CDT) WBC 5.40 3.80 - 9.90 K/cumm Comment:Testing performed by : [facility], [facility] 2, [address] [place] [address] Hgb 9.0(L) 11.9 - 15.5 g/dL C[facility]ER [facility] Comment:Testing performed by : [place] [address], [address], [place] [address] Hct 28.7(L) 35.6 - 45.5 % C[facility]ER [facility] Comment:Testing performed by : [place] [address], [address] [place] [address] Plt 185 150 - 400 K/cumm C[facility]ER [facility] Comment:Testing performed by : [place] [address], [address], [place] [address] MPV 9.1 9.1 - 12.3 fL [facility] Comment:Testing performed by : [place] [address], [address], [place] [address] RBC 3.06(L) 3.90 - 5.20 M/cumm C[facility]ER [facility] Comment:Testing performed by : [place] [address], [place] [address] MCV 93.8 81.3 - 96.4 fL [facility]ER [facility] Comment:Testing performed by : [place] [address], [place] [address] MCH 29.4 27.1 - 33.3 pg CERNER [facility] Comment:Testing performed by : [place] [address], [address] [place] [address] MCHC 31.4(L) 32.3 - 35.7 g/dL C[facility]ER [facility] Comment:Testing performed by : [place] [address], [address], [place] [address] RDW CV 15.4(H) 11.1 - 14.9 % CERNER [facility] Comment:Testing performed by : [facility] 2, [address], [place] [address] RDW SD 53.6(H) 35.7 - 48.1 fL CERNER B[facility] Comment:Testing performed by : [place] [address], [address], [place] [address] ANC Prelim 4.52 1.50 - 6.50 K/cumm ENRIQUE TORRES Comment: Interpretive Data The rapid ANC is a preliminary automated count and may vary from the final ANC (Neut Abs) reported in the WBC differential that follows. Current interpretive data was last revised 2024. Testing performed by: [facility], [facility] [address], [address] [place] [address] Blood 10/07/2024 4:00 PM CDT 10/07/2024 4:01 PM CDT Kalli Cox MD LAB BLOOD ORDERABLES Gail l Result Performing Organization Address [facility] Co de Phone Number [facility] [address] [address]. [place] [address] * (ABNORMAL) Cancer antigen 19-9 (10/07/2024 4:00 PM CDT) CA 19-9 ag 79.3(H) 0.0 - 35.0 units/mL Comment: Interpretive Data The Sree CA 19-9 assay procedure was used. Results from different manufacturers or methods may not be comparable. Serial testing should be performed using the same method. Testing performed by: [facility], [address] [place] [address], [place]., [address] Blood 10/07/2024 4:00 PM CDT 10/07/2024 6:08 PM CDT Kalli Cox MD LAB BLOOD ORDERABLES Gail l Result Performing Organization Address [facility]/ZIP Co de Phone Number [facility] [address] [facility] [place] [address] * (ABNORMAL) Protime-INR (10/07/2024 4:00 PM CDT) PT 14.2(H) 9.7 - 13.0 sec Comment:Testing performed by : [facility], [address] [place] [address] INR 1.31(H) 0.90 - 1.20 ENRIQUE TORRES Comment: Interpretive data Oral anticoagulant therapeutic ranges: Venous thromboembolism prophylaxis or treatment: 2.0-3.0 CARDIOLOGY Standard range: 2.0-3.0 High-intensity range: 2.5-3.5 Refer to indication-specific guidelines for appropriate target ranges for prosthetic heart valve replacement. Current interpretive data was last revised on 2019. Testing performed by: [facility], [address] [place] [address] Blood 10/07/2024 4:00 PM CDT 10/07/2024 4:36 PM CDT Moh'Maurisio Cox MD LAB BLOOD ORDERABLES Gail l Result [facility] [address] Department [place] [address] * (ABNORMAL) Comprehensive metabolic panel (10/07/2024 4:00 PM CDT) Sodium 141 135 - 145 mmol/L Comment:Testing performed by : [facility], [address] [place] [address] Potassium, pl 4.2 3.3 - 4.9 mmol/L ENRIQUE TORRES Comment:Testing performed by : [facility], [address] [place] [address] Chloride 105 97 - 110 mmol/L ENRIQUE TORRES Comment:Testing performed by : [facility], [address] [place] [address] CO2 26 22 - 32 mmol/L ENRIQUE TORRES Comment:Testing performed by : [facility], [address] [place] [address] Anion gap 11 2 - 15 mmol/L ENRIQUE TORRES Comment:Testing performed by : [facility], [address], [place] [address] BUN 13 6 - 25 mg/dL [facility]ER [facility] Comment:Testing performed by : [facility], [address], [place] [address] Creatinine 0.71 0.60 - 1.10 mg/dL C[facility]ER [facility] Comment:Testing performed by : [facility], [address], [place] [address] Glucose 106 70 - 199 mg/dL CERNER [...] was last revised 2022. Testing performed by: [facility], [address], [place] [address] Calcium 9.6 8.5 - 10.3 mg/dL CERNER [facility] Comment:Testing performed by : [facility], [address], [place] [address] Bilirubin, total 1.8(H) 0.1 - 1.2 mg/dL CERNER [facility] Comment:Testing performed by : [facility], [address], [place] [address] Protein, pl 6.2(L) 6.5 - 8.5 g/dL CERNER [facility] Comment:Testing performed by : [facility], [address], [place] [address] Albumin 3.6 3.5 - 5.0 g/dL CERNER [facility] Comment:Testing performed by : [facility], [address], [place] [address] Alk phos 794(H) 40 - 130 Units/L CERNER [facility] Comment:Testing performed by : [facility], [address], [place] [address] ALT 107(H) 7 - 45 Units/L [facility] Comment:Testing performed by : [facility], [address] [place] [address] AST 240(H) 10 - 45 Units/L [facility] Comment:Testing performed by : [facility], [address] [place] [address] Blood 10/07/2024 4:00 PM CDT 10/07/2024 4:36 PM CDT Kalli Cox MD LAB BLOOD ORDERABLES Gail l Result [facility] [address]. [place] [address] * [id number] (10/07/2024 3:52 PM CDT) MSI-HIGH NOT DETECTED 10/14/2024 7:47 PM CDT [facility] TMB 4.75 mut/Mb 10/14/2024 7:47 PM CDT [facility] HRD Not detected 10/14/2024 7:47 PM CDT [facility] TUMOR FRACTION 0.4% 10/14/2024 7:47 PM CDT [facility] Chip TET2 Q644* (0.5%) 10/14/2024 7:47 PM CDT [facility] Blood specimen (specimen) Venous blood specimen / Unknown 10/07/2024 3:52 PM CDT 10/09/2024 11:07 AM CDT Narrative This result has genomic variants that were not included in this document. Kalli Cox MD LAB GENETIC TESTING Final Result [facility] [address] [place], [place] [address] [phone] [facility] [address] [place] [address] * POCT lipid panel (09/27/2024 1:34 PM [...] Biopsy) 09/19/2024 1:07 PM CDT Narrative PATHOLOGY BJ - 09/20/2024 2:24 PM CDT EPIC results best viewed via link to PDF [facility] [place] [address] Note to Patients: This report may contain [...] Gender: F : 1950 (Age: 73) Address: [address] [place] [address] [facility] #: [id number] Taken:09/19/2024 Received:09/19/2024 Reported: 09/20/2024 Patient Type: [facility] Service: Emergency Location: [facility] Physician(s): Puma Wagner M.D. Daisy Mercado MD Diagnosis: Pancreas, neck, [...] cm in aggregate). Labeled A1. Jar 0. [facility]/09/19/2024 15:19 PA(s): Evelyn Cunningham By this signature, I attest that the above diagnosis is based upon my personal examination of the slides(and/or other material). Addenda/Procedures The performance characteristics of some immunohistochemical stains, fluorescence in-situ hybridization tests and immunophenotyping by flow cytometry cited in this report (if any) were determined by the Surgical Pathology and Flow Cytometry Departments at [facility] as part of an ongoing lead quality control technician program and in compliance with federally mandated [...] Pathology and Flow Cytometry Departments of [facility]. It has not been cleared or approved by the U. S. Food and Drug Administration. IMAGES AND SCANNED DOCUMENTS, IF INCLUDED, ONLY VIEWABLE IN PDF VERSION OF REPORT us David Brewer MD LAB PATHOLOGY ORDERABLES [facility] Result PATHOLOGY [facility] 3rd Floor [place], [place] [phone] * Upper EUS (09/19/2024 12:32 PM CDT) Anatomical Region Laterality Modality Other Narrative Procedure Note David Brewer MD - 09/19/2024 12:32 PM CDT GI ENDOSCOPY [facility] Patient Name: Susannah Camargo Procedure Date: 09/19/2024 12:32 PM Date of : 1950 Admit Type: Outpatient Age: 73 Gender: Female Attending MD: David Brewer M.D. Room: [facility] ENDOSCOPY ROOM 1 Note Status: Finalized [...] consent was obtained.The Olympuscurved linear array therapeutic [id number] was introduced through the mouth, and advanced tothe second part of duodenum The GIF [id number] endoscope was introduced through the mouth, and [...] Three passes were madewith the 22 gauge Corepair needle using a transgastric approach. A stylet [...] following this procedure please call my officeat [phone] ([phone]) to speak to my nurses. After hours and evenings please call [phone] speak to the GI fellow personnel security assistant. Please tell themthat Dr. Brewer did your procedure and that your were instructed to have the fellow call me or thephysician covering for me to discuss the management of your condition. If you have an urgent problem, please goto the nearest emergency room and have the ER doctorcall my office during the day or [facility] transfer ([phone]) center after hours and weekends to arrange admission or transfer to our facility. - Call my nurse Arlyn Segovia RN in the GI office at [phone] for your final pathology results in 7 [...] using the same method. Testing performed by: [facility], [address] [facility], [place]., [address] Blood 09/17/2024 10:3 2 AM CDT 09/17/2024 7:30 PM CDT us Ana RODRIGUES LAB BLOOD ORDERABLES Gail garcia Result [facility] [address] [place] [address] * (ABNORMAL) CEA (09/17/2024 10:32 AM CDT) CEA 5.2(H) <=5.0 ng/mL Comment: Interpretive Data Reference Range: Non-Smokers: < or = 3.0 ng/mL Some Smokers may have elevated levels, usually < 5.0 ng/mL The Sree CEA assay procedure was used. Results from different manufacturers or methods may not be comparable. Serial testing should be performed using the same method. Testing performed by: [facility], [facility] [facility], [place]., [address] Blood 09/17/2024 10:3 2 AM CDT 09/17/2024 7:30 PM CDT Ana RODRIGUES LAB BLOOD ORDERABLES Gail l Result Performing Organization Address [facility] de Phone Number [facility] [address] [place] [address] * CT Chest W and Abdomen Pelvis [...] 1:42 PM CDT) Narrative [facility] - 09/06/2024 1:53 PM CDT The images from this study are not interpreted by Radiology. Please refer to the physician's procedure / OR operative note. David Brewer MD IMG FLUOROSCOPY PROCEDURES Final Result [facility] * Surgical pathology (09/06/2024 1:25 PM CDT) Lymph node, needle biopsy 09/06/2024 1:25 PM CDT 09/10/2024 11:26 AM CDT Narrative 09/11/2024 3:14 PM CDT [address] [address] Tele: Roxana Gordon MD - Testing Coordinator Note to Patients: This report may contain [...] PATHOLOGY REPORT Patient Name: SUSANNAH CAMARGO Address: [address] [place] [address] Gender: F : 1950 (Age: 73) Service: Gastro Location: [facility], Hospital #: [id number] Patient Type: [facility] SAME DAY SURGERY Taken: 09/06/2024 Received 09/10/2024 Reported: 09/11/2024 Physician(s): Puma Wagner MD Jason E. Barnett, M.D. DIAGNOSIS: Pancreas, head, fine needle biopsies: - Focal atypical glands (see description) [facility]/11/2024 15:14 Examining Pathologist: Alek Flowers M.D. Report [...] filtered and submitted entirely in cassette A1. [facility] MICROSCOPIC DESCRIPTION: Microscopic examination shows multiple fragments of pancreatic parenchyma. There are focal slightly irregular glands with minimal nuclear atypia. An immunostain for p53 shows wild type staining in these glands. There is no definitive malignancy identified. Clinical correlation and follow-up is needed. Clerical Data Follows A; 13211, [address], [address] <CR>, [address] REPORT IMAGES AND/OR SCANNED DOCUMENTS ONLY VIEWABLE IN PDF FORMAT The immunohistochemical test(s) cited in this report, if any, was developed and its performance characteristics determined by [facility] Pathology Department. It has not been cleared or approved by the U.S. Food and Drug Administration. The FDA has determined that such clearance or approval is not necessary. This test is used for clinical purposes. It should not be regarded as investigational or for research. [facility] Laboratory is certified under the [...] part or completely in the following laboratories: [facility], [address] [place] [address], [address] [place] [address]. us David Brewer MD LAB PATHOLOGY ORDERABLES Fi nal Result * ERCP (09/06/2024 1:03 PM CDT) Anatomical Region Laterality Modality Other Narrative Procedure Note David Brewer MD - 09/06/2024 1:03 PM CDT ENDOSCOPY LAB Patient Name: Susannah Camargo Procedure Date: 09/06/2024 1:03 PM Admit Type: Outpatient Room: [facility] Date of : 1950 Instrument Name: [id number] [...] The patienttolerated the procedure well. Findings: The willow analyst film was normal. The esophagus was successfully [...] following this procedure please call my officeat [phone] ([phone]) to speak to my nurses. After hours and evenings please call [phone] speak to the GI fellow personnel security assistant. Please tell themthat Dr. Brewer did your procedure and that your were instructed to have the fellow call me or thephysician covering for me to discuss the management of your condition. If you have an urgent problem, please goto the nearest emergency room and have the ER doctorcall my office during the day or [facility] transfer ([phone]) center after hours and weekends to arrange [...] 09/06/2024 1:02 PM Admit Type: Outpatient Room: [facility] Date of : 1950 Instrument Name: [id number] [...] following this procedure please call my officeat [phone] ([phone]) to speak to my nurses. After hours and evenings please call [phone] speak to the GI fellow personnel security assistant. Please tell themthat Dr. Brewer did your procedure and that your were instructed to have the fellow call me or thephysician covering for me to discuss the management of your condition. If you have an urgent problem, please goto the nearest emergency room and have the ER doctorcall my office during the day or [facility] transfer ([phone]) center after hours and weekends to arrange admission or transfer to our facility. - Call my nurse Arlyn Segovia RN in the GI office at [phone] for your final results in 7 days. [...] Bilirubin, direct 4.2(H) 0.1 - 0.3 mg/dL [facility] Protein, pl 5.5(L) 6.5 - 8.5 g/dL [facility] Albumin 3.0(L) 3.5 - 5.0 g/dL [facility] Alk phos 1,250(H) 40 - 130 Units/L [facility] ALT 143(H) 7 - 45 Units/L [facility] AST 190(H) 10 - 45 Units/L [facility] Blood 09/06/2024 10:5 0 AM CDT 09/06/2024 10:50 AM CDT Narrative [facility] - 09/06/2024 11:32 AM CDT STAT pre procedure lab same day us Geoffrey Shaver MD LAB BLOOD ORDERABLES [facility] [address] Department [place] [address] * CT Body Outside Consult (09/05/2024 1:04 [...] images may or may not represent the [place] source data set and thus may contain [...] images may or may not represent the [place] source data set and thus may contain changes that may lower the accuracy of this second-opinion interpretation. Electronically signed by: Mickey Martinez M.D. us David Brewer MD IMG CT PROCEDURES Final Res ult from Last 3 Months Insurance UHC MEDICARE ADVANTAGE Member Subscriber Plan / Payer ( fective 2022-Present) Name:Susannah Camargo Bing Relation to Subscriber:Self Name:Ramila Camargohleen Bing Payer ID:[id number] (NAIC) Type:[facility] MED[facility] Address: [place] [phone] UHC MEDICARE ADVANTAGE [facility] [place] [address] Advance Directives For more information, please contact: [phone] * Full Code (Latest Code Status on [...] 1:22 PM 02/28/2023 7:54 PM Care Teams Dance Coach Relationship Specialty Start Date End Date Leonidas Rubio MD [address] [address] PCP - General Family Medicine 09/05/24 Arianna Persaud PA [address] [facility] [address] [place] [address] Physician Copyright Expert 08/29/24 David Brewer MD [address] [place] [address] Referring Physician Gastroenterology 09/23/24 Kalli Cox MD [address] [place] [address] Consulting Physician Medical Oncology 09/23/24 Daisy Mercado MD [address] [facility] [address] [place] [address] Consulting Physician General Surgery 09/23/24 Kalli Cox MD [address] [place] [address] Consulting Physician Medical Oncology 10/28/24
[2024-11-14 04:13] VITALS: BP 139/91; PULSE 85; RESP 18; TEMP 36.5; O2SAT 99
--- OUTSIDE RECORDS SUMMARY | 2024-11-14 04:50 | XMS_ITS | Clinical Summary ---
Author Organization [facility] Address [address] [place] [address] Phone Care Team Providers Care Fuel Technician Name Role Phone Linette Yepez MD Primary Care Provider [phone] Allergies Active Allergy Reactions Criticality Noted Date [...] 90 mL 360 mL 04/14/2020 2:38 PM NEMATOLOGIST 0 Active ondansetron (Zofran ODT) 8 mg Tablet, Rapid Dissolve Dissolve 1 Tablet (8 mg) by mouth every 8 hours as needed for nausea or vomiting. 20 Tablet 2 04/14/2020 2:38 PM NEMATOLOGIST 0 Active Active Problems Problem Noted Date [...] Comments Blood Pressure 168/83 04/14/2020 7:59 AM NEMATOLOGIST Pulse 61 04/14/2020 7:59 AM NEMATOLOGIST Temperature 36.8 C (98.2 F) 04/14/2020 7:59 AM NEMATOLOGIST Respiratory Rate 18 04/14/2020 7:59 AM NEMATOLOGIST Oxygen Saturation 98% 04/14/2020 7:59 AM NEMATOLOGIST Inhaled Oxygen Concentration - - Weight 108.2 kg (238 lb 9.6 oz) 04/13/2020 7:05 AM NEMATOLOGIST Height 160 cm (5' 3) 04/13/2020 7:05 AM NEMATOLOGIST Body Mass Index 42.27 04/13/2020 7:05 AM NEMATOLOGIST Plan of Treatment Health Maintenance Due Date [...] (#1) 2024 Medical Devices Implanted Type Area E Commerce Strategist Device Identifier Shelf Expiration Date Model / Serial / Lot Seamguard Endogia 60 Prpl [id number] - [id number] Implanted:Qty : 2 on 04/13/2020 by Hong Bryant MD at [facility] N/A: Abdomen [employer] 12/02/2022 [id number] / / [id number] Seamguard Endogia 60 Blk [id number] - [id number] Implanted:Qty : 1 on 04/13/2020 by Hong Bryant MD at [facility] N/A: Abdomen [employer] 08/19/2022 [id number] / / [id number] Insurance RX [employer] RX Member Subscriber Plan / Payer (Ef fective 2016-Present) Name:Raman Susannah A Relation to Subscriber:Self Name:Raman Susannah A Payer ID:Not on file Group ID:[id number] Type:RX Medicare Part D Address: [address] Advance Directives For more information, please contact: [phone] * Full Code (Latest Code Status on File) Date Activated Date Inactivated Comments 04/13/2020 1:09 PM 04/14/2020 5:55 PM Care Teams Fuel Technician Relationship Specialty Start Date End Date Linette Yepez MD PCP - General Family Practice 04/01/20
--- OUTSIDE RECORDS SUMMARY | 2024-11-14 04:50 | XMS_ITS | Encounter Summary ---
Author Organization [facility] [address] [place] [address] Care Team Providers Care Property Claims Manager Name Role Phone Linette Yepez MD Primary Care Provider [phone]- [phone] Reason for Visit * Reason Onset Date Comments MEDICAL MANAGEMENT 04/13/2020 JENNIFER W/ RAVI Nettles/ [facility] Encounter Details Date Type Department Care Team ([facility] st Contact Info) Description 04/13/2020 Telephone [facility] Admitting [address] [place] [address] [place] Bryant MD [id number] [place] [address] [place] [address] MEDICAL MANAGEMENT (JENNIFER Nettles/ RAVI Nettles/ HOSPITALIST [...] COVID-19? No / Unsure 04/13/2020 6:46 AM INTERNATIONAL ORGANIZER documented as of this encounter Plan of Treatment Not on file documented as of this encounter Visit Diagnoses Not on filedocumented in this encounter Care Teams Property Claims Manager Relationship Specialty Start Date End Date Linette Yepez MD PCP - General Family Practice 04/01/20 documented as of this encounter
--- OUTSIDE RECORDS SUMMARY | 2024-11-14 04:50 | XMS_ITS | Encounter Summary ---
Author Organization [facility] Address [address] [place] [address] Care Team Providers Care Wool Hat Sanding Machine Operator Name Role Phone Arianna Persaud Unavailable + [phone] Leonidas Rubio MD Primary Care Provider David Brewer MD Unavailable [phone] Haven Cox MD Unavailable [phone] Daisy Mercado MD Unavailable [phone] Haven Cox MD Unavailable [phone] Encounter Details Date Type Department Care Team (Latest Contact Info) Description 11/12/2024 10:07 AM CDT - 11/12/2024 11:59 PM CDT Hospital Encounter [address] [address] Dysuria Discharge Disposition: Discharge to home or [...] materials from doctor or pharmacy Sometimes 11/04/2024 [facility] Utilities Answer Date Recorded In the past [...] often do you attend chur ch or cheondoism services? Never 10/22/2024 Do you belong to any clubs o r organizations such as episcopal groups, unions, fraternal or athletic groups, or [...] in a longterm (including now)? No 02/27/2023 Housing Stability Vital Sign Answer Devan e Recorded In the last 12 months, was t here a time when you were not able to pay the mortgage or rent on time? No 10/22/2024 In the past 12 months, how m any times have you moved where you were living? 0 10/22/2024 At any time in the past 12 m [facility], were you homeless or living in a longterm (including now)? No 10/22/2024 Personal Safety Answer Date Recorded Have you ever been in or are you currently in a harmful physical or emotional relationship or is someone making you feel afraid or unsafe? Denies 10/21/2024 Comments No Sex and Gender Information Value Date Recorded Sex Assigned at Not on file Legal Sex Female 6:30 PM SPEECH LANGUAGE ASSISTANT Gender Identity Not on file Sexual Orientation Not on file documented as of this encounter Medications at Time of Discharge al & mag hydroxide with simethicone-diphenh ydramine-lidocaine (MAGIC MOUTHWASH) suspension [id number]:Pa ncreatic adenocarcinoma (HCC) Swish and swallow 10-15 [...] CDT 11/12/2024 1:25 PM CDT Narrative [facility] - 11/13/2024 3:55 PM CDT Testing performed by [facility] ([phone]) Jackie Szymanski MD LAB MICROBIOLOGY - GEN ERAL ORDERABLES Final Result [facility] Department [place] [address] documented in this encounter Visit Diagnoses Diagnosis Dysuria documented in this encounter Care Teams Wool Hat Sanding Machine Operator Relationship Specialty Start Date End Date Leonidas Rubio MD [address] [place] [address] PCP - General Family Medicine 09/05/24 Arianna Persaud PA [address] [place] [address] Physician Manager Home Improvement 08/29/24 David Brewer MD [address] [place] [address] Referring Physician Gastroenterology 09/23/24 Haven Cox MD [address] [place] [address] Consulting Physician Medical Oncology 09/23/24 Daisy Mercado MD [address] [facility] [address] [place] [address] Consulting Physician General Surgery 09/23/24 Haven Cox MD [address] [place] [address] Consulting Physician Medical Oncology 10/28/24 documented as of this encounter
--- OUTSIDE RECORDS SUMMARY | 2024-11-14 04:50 | XMS_ITS | Clinical Summary ---
Author Organization [facility] Address [address] [place] [address] Phone Care Team Providers Care Licensed Physical Therapy Assistant Name Role Phone Linette Yepez MD Primary Care Provider [phone]- [phone] Allergies Active Allergy Reactions Criticality Noted Date [...] mg by mouth 2 times daily. rx [id number] Active NIFEdipine CR (PROCARDIA-XL) 30 MG TABLET SR 24 HR Take 30 mg by mouth daily. rx [id number] Active Buprenorphine HCl (Belbuca) 600 MCG FILM Take 1 Film by mouth 2 times daily. rx [id number] Active hydrOXYzine (ATARAX) 25 MG Tablet Take 25 mg by mouth 3 times daily as needed for Itching or Nausea (vomiting). rx [id number] Active famotidine (PEPCID) 20 MG Tablet Take 20 mg by mouth daily. rx [id number] Active traMADol (ULTRAM) 50 MG Tablet take [...] to complete this topic Insurance MEDICARE C [facility] Advance Directives * Full Code (Latest Code Status on File) Date Activated Date Inactivated Comments 12/27/2023 9:36 AM Care Teams Licensed Physical Therapy Assistant Relationship Specialty Start Date End Date Linette Yepez MD [address] [facility] [address] [place] [address] PCP - General Family Medicine 12/08/23
--- OUTSIDE RECORDS SUMMARY | 2024-11-14 04:50 | XMS_ITS | Encounter Summary ---
Author Organization [facility] Address [address] [place] [address] Phone Care Team Providers Care Ship Scraper Name Role Phone Arianna Persaud Unavailable [phone]- [phone] Leonidas Rubio MD Primary Care Provider David Brewer MD Unavailable [phone] Haven Cox MD Unavailable Daisy Mercado MD Unavailable [phone] Haven Cox MD Unavailable [phone] Encounter Details Date Type Department Care Team (Late st Contact Info) Description 09/20/2024 Results Follow-Up [facility] Gastroenterology [facility] Medical Office Building [address] [place] [address] David Brewer MD [address] [place] [address] CT Body Outside Consult Social [...] materials from doctor or pharmacy Never 04/11/2023 [facility] Utilities Answer Date Recorded In the past 12 months has th e [place], [place], oil, or water [employer] - is now [employer] threatened to shut off services in your [...] often do you attend chur ch or mandaeism services? Never 02/27/2023 Do you belong to [...] in a assisted (including now)? No 02/27/2023 Personal Safety Answer Date Recorded Have you ever been in or are you currently in a harmful physical or emotional relationship or is someone making you feel afraid or unsafe? Denies 09/19/2024 Comments No Sex and Gender Information Value Date Recorded Sex Assigned at Not on file Legal Sex Female 6:30 PM CHILD SUPPORT OFFICER Gender Identity Not on file Sexual Orientation Not on file documented as of this encounter Plan of Treatment Not on file documented as of this encounter Visit Diagnoses Not on filedocumented in this encounter Additional Health Concerns Infection Onset Date Last Indicated Resolved Time COVID: Suspected 10/20/2024 10/20/2024 10/21/2024 12:45 AM CDT documented as of this encounter Care Teams Ship Scraper Relationship Specialty Start Date End Date Leonidas Rubio MD [address] [place] [address] PCP - General Family Medicine 09/05/24 Arianna Persaud PA [address] [place] [address] Physician International Relations Teacher 08/29/24 David Brewer MD [address] [place] [address] Referring Physician Gastroenterology 09/23/24 Haven Cox MD [address] [place] [address] Consulting Physician Medical Oncology 09/23/24 Daisy Mercado MD [address] [facility] [address] [place] [address] Consulting Physician General Surgery 09/23/24 Haven Cox MD [address] [place] [address] Consulting Physician Medical Oncology 10/28/24 documented as of this encounter
--- OUTSIDE RECORDS SUMMARY | 2024-11-14 04:50 | XMS_ITS | Encounter Summary ---
Author Organization [facility] Healthcare Address [address] [place] [address] Care Team Providers Care Food Storeroom Clerk Name Role Phone Arianna Persaud Unavailable [phone]- [phone] Leonidas Rubio MD Primary Care Provider David Brewer MD Unavailable [phone] Haven Cox MD Unavailable Daisy Mercado MD Unavailable [phone] Haven Cox MD Unavailable [phone] Reason for Visit * Auth/Cert (Routine) Specialty Diagnoses / Procedures Referred By Contmarino t Referred To Contact Referral ID Status Reason Start Date Expiration Date Visits Re quested Visits Authorized [id number] 1 1 Encounter Details Date Type Department Care Team (Late st Contact Info) Description 11/13/2024 11:30 AM CDT Home Care Visit [facility] [address] [place] [address] Fawad Anderson, PULP HOUSE SUPERVISOR PLANNING COORDINATOR INITIAL EVAL Social History Tobacco Use Types [...] materials from doctor or pharmacy Sometimes 11/04/2024 [facility] Utilities Answer Date Recorded In the past 12 months has e [employer], [employer], oil, or water [employer] threatened to shut off services in your [...] attend chur ch or samaritan services? Never 10/22/2024 Do you belong to any clubs o r organizations such as oriental orthodox groups, unions, fraternal or athletic groups, [...] in a fpc (including now)? No 02/27/2023 Housing Stability Vital Sign Answer Devan e Recorded In the last 12 months, was t here a time when you were not able to pay the mortgage or rent on time? No 10/22/2024 In the past 12 months, how m any times have you moved where you were living? 0 10/22/2024 At any time in the past 12 m [facility], were you homeless or living in a fpc (including now)? No 10/22/2024 Personal Safety Answer Date Recorded Have you ever been in or are you currently in a harmful physical or emotional relationship or is someone making you feel afraid or unsafe? Denies 10/21/2024 Comments No Sex and Gender Information Value Date Recorded Sex Assigned at Not on file Legal Sex Female 6:30 PM ORTHOPAEDIC NURSE Gender Identity Not on file Sexual Orientation Not on file documented as of this encounter Miscellaneous Notes * Home Health Visit Narrative - Fawad Anderson LCSW - 11/13/2024 11:30 AM CDT PLANNING COORDINATOR PSYCHOSOCIAL SBAR Visit with pt completed on: 11/13/24 SITUATION PLANNING COORDINATOR arrived to pt home for initial evaluation. [...] Per pt, she is signing up with [facility] today. One dtr is on FMLA and may be available to be paid caregiver to pt. Pt has IDOA services in the past when she resided in [facility] ?? 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 DIL is a [place] director of home care hospice and is assisting pt with getting a hospital bed and needed DME. Pt voices that she will not be getting any additional chemo treatments, has been referred to lymphedema program. Per pt, she may be going [facility] in [place] in order to get another opinion and [...] stressors with medical bills Progress: COMPLETED 11/13 PLANNING COORDINATOR provided [facility] financial assistance application and a print out of an application for financial assistance through pancreatic cancer foundation Problem: Pt does not have HCPOA Progress: COMPLETED 11/13 PLANNING COORDINATOR discuss HCPOA, provided Five Wishes POA for pt to consider and discuss with family. PLANNING COORDINATOR provided free bankruptcy paralegal resource at [facility] [phone] for POA for health and property Problem: One dtr is on FMLA and may be available to be paid caregiver to pt Progress: PROGRESSING 11/13 PLANNING COORDINATOR will make a referral to [facility] [phone] for paid in-home care services, ERB, MOW and medication dispenser. Pt informed that the Sr Services will reach out to schedule initial assessment in approx 6-8 week. Pt can call [facility] at [phone] to inquire about status of referral. Pt voiced understanding ?? Interventions: PLANNING COORDINATOR assessed patient emotional wellbeing, mental health, strengths, resources, and unmet needs. PLANNING COORDINATOR provided emotional support and information on appropriate community resources. No further PLANNING COORDINATOR follow up scheduled at this time; pt, family, or care team members can request additional PLANNING COORDINATOR visit if needs arise. PLANNING COORDINATOR will coordinate care with Home Care Team. documented in this encounter Plan of Treatment Not on file documented as of this encounter Visit Diagnoses Not on filedocumented in this encounter Home Health Visit - Care Plan Visit Details Visit Type -PLANNING COORDINATOR Initial Eval uation Discipline -Medical Social Work Problems Problem Description Start Date Status Goals Interve ntions Fall Precautions/Safe ty Concerns Disciplines: Skilled Disciplines, HH All Disciplines Fall precautions and general safety 11/04/2024 Resolved on 11/13/2024 - 1 problem intervention scheduled/[place] in this visit PLANNING COORDINATOR Resource Needs Disciplines: Social Work Deficit related to resources. 11/13/2024 Resolved on 11/13/2024 1 goal linked to scheduled/docume nted intervention 1 goal intervention scheduled/[place] in this visit PLANNING COORDINATOR Emotional Support Needs Disciplines: Social Work Deficit related to emotional support. 11/13/2024 Resolved on 11/13/2024 1 goal linked to scheduled/docume nted intervention 1 goal intervention scheduled/[place] in this visit Goals Goal Associated Problem Outcome Goal Met? Visit Notes Understanding of available resources Description: Resource needs met as evidenced by patient/family/ caregiver verbalizes understanding of available resources and ways to obtain these. PLANNING COORDINATOR Resource Needs Completed Yes Increase emotional support Description: Patient/ family/ caregiver understands impact of illness as evidenced by verbalizing acceptance of the disease process. PLANNING COORDINATOR Emotional Support Needs Completed Yes Interventions Intervention [...] fall and to report any falls to [facility]. Problem:Fall Precautions/Safety Concerns Completed Provide assistance with identifying appropriate community resources Description: Provide assistance with identifying appropriate community resources Problem:PLANNING COORDINATOR Resource Needs Goal:Understanding of available resources Completed PLANNING COORDINATOR PSYCHOSOCIAL SBAR Visit with pt completed on: 11/13/24 SITUATION PLANNING COORDINATOR arrived to pt home for initial evaluation. [...] pt, she is s igning up with [facility] today. One dtr is on FMLA and may be available to be paid caregiver to pt. 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 DIL is a [place] director of home care hospice and is micaela jarocho pt with getting a hospital bed and needed DME. Pt voices that she will not be getting any additional chemo treatments, has been referred to lymphedema program. Per pt, she may be going [facility] in [place] in order to get another opinion and [...] stressors with medical bills Progress: COMPLETED 11/13 PLANNING COORDINATOR provided [facility] financial assistance application and a print out of an application for financial assistance through pancreatic cancer foundation Jim m: Pt does not have HCPOA Progress: COMPLETED 11/13 PLANNING COORDINATOR discuss HCPOA, provided Five Wishes POA for pt to consider and discuss with family. PLANNING COORDINATOR provided free bankruptcy paralegal resource at [facility] [phone] for POA for health and property Problem : One dtr is on FMLA and may be available to be paid caregiver to pt Progress: PROGRESSING 11/13 PLANNING COORDINATOR will make a referral to [facility] [phone] for paid in-home care services, ERB, MOW and medication dispenser. Pt informed that the Sr S ervices will reach out to schedule initial assessment in approx 6-8 week. Pt can call [facility] at [phone] to inquire about status of referral. Pt voiced understanding Interventions: PLANNING COORDINATOR assessed patient emotional wellbeing, mental health, strengths , resources, and unmet needs. PLANNING COORDINATOR provided emotional support and information on appropriate community resources. No further PLANNING COORDINATOR follow up scheduled at this time; pt, family, or care team members can request additional PLANNING COORDINATOR visit if needs arise. PLANNING COORDINATOR will c oordinate care with Home Care Team. Provide Emotional Support Description: Provide emotional support Problem:PLANNING COORDINATOR Emotional Support Needs Goal:Increase emotional support Completed PLANNING COORDINATOR provided emotional support and encouragement to patient through conversation, active listening and supportive presence documented in this encounter Care Teams Food Storeroom Clerk Relationship Specialty Start Date End Date Leonidas Rubio MD [address] [place] [address] PCP - General Family Medicine 09/05/24 Arianna Persaud PA [address] [place] [address] Physician Telecommunication Equipment Repairer 08/29/24 David Brewer MD [address] [place] [address] Referring Physician Gastroenterology 09/23/24 Haven Cox MD [address] [place] [address] Consulting Physician Medical Oncology 09/23/24 JessDaisy kendrick MD [address] [facility] [address] [place] [address] Consulting Physician General Surgery 09/23/24 Haven Cox MD [address] [place] [address] Consulting Physician Medical Oncology 10/28/24 documented as of this encounter
--- OUTSIDE RECORDS SUMMARY | 2024-11-14 04:50 | XMS_ITS | Encounter Summary ---
Author Organization [facility] Address [address] [place] [address] Phone Care Team Providers Care Production Support Consultant Name Role Phone Arianna Persaud Unavailable [phone] Leonidas Rubio MD Primary Care Provider David Brewer MD Unavailable Haven Cox MD Unavailable Daisy Mercado MD Unavailable [phone] Haven Cox MD Unavailable [phone] Encounter Details Date Type Department Care Team (Late st Contact Info) Description 09/20/2024 Results Follow-Up [facility] Gastroenterology [address] [place] [address] Medical Office [address] [place] [address] David Brewer MD [address] [place] [address] Surgical pathology Social History Tobacco [...] the past 12 months has th e [employer], gas, oil, or water [email or web address] threatened to shut off services in your [...] often do you attend chur ch or episcopalian services? 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 Gender Identity Not on file Sexual Orientation Not on file documented as of this encounter Plan of Treatment Not on file documented as of this encounter Visit Diagnoses Not on filedocumented in this encounter Additional Health Concerns Infection Onset Date Last Indicated Resolved Time COVID: Suspected 10/20/2024 10/20/2024 10/21/2024 12:45 AM CDT documented as of this encounter Care Teams Production Support Consultant Relationship Specialty Start Date End Date Leonidas Rubio MD [address] [place] [address] PCP - General Family Medicine 09/05/24 Arianna Persaud PA [address] [place] [address] Physician Roll Inspector 08/29/24 David Brewer MD [address] [place] [address] Referring Physician Gastroenterology 09/23/24 Haven Cox MD [address] [place] [address] Consulting Physician Medical Oncology 09/23/24 Daisy Mercado MD [address] [facility] [address] [place] [address] Consulting Physician General Surgery 09/23/24 Haven Cox MD [address] [place] [address] Consulting Physician Medical Oncology 10/28/24 documented as of this encounter
--- OUTSIDE RECORDS SUMMARY | 2024-11-14 04:51 | XMS_ITS | Referral Summary ---
Author Organization [facility] Address [address] [place] [address] Care Team Providers Care Subsurface Augmentee Elint Operator Name Role Phone Arianna Persaud Unavailable + [phone] Leonidas Rubio MD Primary Care Provider David Brewer MD Unavailable Kalli Cox M Mili BROWN Unavailable Daisy Mercado MD Unavailable [phone] Kalli Cox MD Unavailable Encounters Date Type Department Care Team Description 11/14/19 25 11:30 AM CDT Home Care Visit [address] [place] [address] Fawad Anderson LCSW NURSING INFORMATICS CLINICAL ANALYST INITIAL EVAL 11/13/19 25 Home Care Visit [address] [place] [address] Fawad Anderson LCSW CASE COMMUNICATION 11/13/19 25 10:07 AM CDT - 11/13/19 25 11:59 PM CDT Hospital Encounter [address] [address] Dysuria Discharge Disposition: Discharge to home or self care 11/13/19 Home Care Visit [facility] [address] [facility] [address] [place] [address] Edison Lopez, RN CASE COMMUNICATION 11/13/19 10:30 AM CDT Home Care Visit [facility] [address] [facility] [address] [place] [address] Edison Lopez, AUSTEN HOME VISIT 11/13/19 9:00 AM CDT Office Visit [facility] Obstetrics and Gynecology [address] [facility] 7th Floor [address] [place] [phone] Jackie Szymanski MD Dysuria (Primary Dx); Vaginal atrophy; Uterine prolapse; Urinary retention 11/12/19 Telephone [facility] Oncology [address] [place] [address] 6 [place] [address] Lissette Ortiz RN 11/12/19 10:00 AM CDT Office Visit [facility] Oncology [address] [facility] [address] [place] [address] Kalli Cox MD Pancreatic adenocarcinoma (HCC) (Primary Dx); Vaginal spotting 11/12/19 9:00 AM CDT Clinical Support [facility] at [facility] 10 [place] [address] Pancreatic adenocarcinoma (HCC) 11/09/19 Documentation [facility] [address] [place] [address] Ivet Domingo NP 11/09/19 Telephone [facility] Oncology [address] [place] [address] Floor 6 [place] [address] Lissette Ortiz RN 11/08/19 Home Care Visit [facility] [address] [facility] [address] [place] [address] Shilpi Eng PT CASE COMMUNICATION 11/06/19 Telephone [facility] Oncology [address] [facility] 6 [place] [address] Lissette Ortiz, AUSTEN 11/06/19 25 Telephone [facility] Oncology [address] [facility] [address] [place] [phone] Talia Serna CMA 11/06/19 12:30 PM CDT - 11/06/19 11:59 PM CDT Hospital Encounter [facility] Radiology Echo Lab [address] [place] [address] Pancreatic adenocarcinoma (HCC); Bilateral lower extremity edema Discharge Disposition: Discharge to home or self care 11/05/19 Plan of Care Documentation [address] [address] [place] [address] 11/05/19 12:30 PM CDT Home Care Visit [address] [place] [address] Edison Lopez, AUSTEN SN OASIS START OF CARE 11/02/19 Telephone [facility] [address] [place] [address] 3rd Floor [address] [place] [address] Wesley Sanchez, AUSTEN 11/02/19 25 Telephone [facility] [address] [place] [address] 3rd Floor [address] [place] [address] Wesley Sanchez, AUSTEN 11/01/19 25 Telephone [facility] Oncology [address] 1, [address] [place] [address] Edison Cardona, AUSTEN 11/01/19 25 Orders Only [facility] Oncology [address] 1, [address] [place] [address] Edison Cardona, AUSTEN 11/01/19 25 Telephone [facility] [address] [place] [address] Ashley Tello RN 11/01/19 25 Telephone [facility] [address] [place] [address] Ashley Tello RN 10/29/19 25 Documentation [facility] Oncology [address] [facility] 100 [place] [address] Katt Rios LCSW 10/29/19 10:15 AM CDT Office Visit [facility] Oncology [address] [place] [address] [place] [address] Kalli Cox MD Pancreatic adenocarcinoma (HCC) (Primary Dx); Bilateral lower extremity edema 10/29/19 9:15 AM CDT Clinical Support [facility] 10 [facility] [place] [address] Pancreatic adenocarcinoma (HCC) 10/26/19 25 Orders Only [address] [address] Kalli Cox MD Vaginal spotting (Primary Dx) 10/22/19 3:30 PM CDT - 10/26/19 3:25 PM CDT Hospital Encounter [address] [address] Kalli Cox MD Tapiavala, Shaili Jayshil, MD [...] - 10/24/19 11:59 PM CDT Hospital Encounter [facility] Radiology 1 [facility] [place] [address] Discharge Disposition: Discharge to home or self care 10/23/19 3:25 PM CDT Ancillary Procedure [facility] Vascular Lab IP 1 [facility] [address] [place] [address] 10/22/19 12:00 PM CDT Ancillary Procedure [facility] Vascular Lab IP 1 [facility] [address] [place] [address] 10/21/19 11:16 PM CDT - 10/21/19 11:59 PM CDT Hospital Encounter [facility] Radiology [facility] [address] [place] [address] Discharge Disposition: Discharge to home or self care 10/21/19 Telephone [facility] Oncology [address] [place] [address] Floor 5 [place] [address] Jamee Fine NP 10/20/19 25 Telephone [facility] Oncology [address] [place] [address] Floor 6 [place] [address] 10/18/19 9:45 AM CDT Lab [facility] [place] at [address] [address] Pancreatic adenocarcinoma (HCC) 10/18/19 10:45 AM CDT Infusion [facility] at [address] [address] Dehydration (Primary Dx); Pancreatic adenocarcinoma (HCC) 10/17/19 25 Telephone [facility] Oncology [address] [place] [address] Floor 5 [place] [address] Lissette Ortiz RN 10/16/19 25 Documentation [facility] at [address] [address] 10/16/19 25 Telephone [facility] Oncology [address] [place] [address] Floor 6 [place] [address] Kalli Cox MD 10/16/19 25 Documentation [facility] Oncology [address] [place] [address] [address] [place] [address] Katt Rios, ALUMINUM SIDING MECHANIC 10/16/19 25 Orders Only [facility] Oncology [address] [place] [address] Floor 5 [place] [address] Lissette Ortiz RN Pancreatic adenocarcinoma (HCC) (Primary Dx) 10/16/19 25 10:00 AM CDT Infusion [facility] [place] at [address] [place] [address] Pancreatic adenocarcinoma (HCC) (Primary Dx) 10/15/19 25 Orders Only [facility] Oncology [address] [place] [address] 5 [place] [address] Lissette Ortiz RN Pancreatic adenocarcinoma (HCC) (Primary Dx) 10/15/19 25 Documentation [facility] at [address] [address] 10/15/19 25 Documentation [facility] Oncology [address] [place] [address] [place] [address] Katt Rios, ALUMINUM SIDING MECHANIC 10/15/19 25 7:30 AM CDT Clinical Support [facility] at [address] [place] [address] Pancreatic adenocarcinoma (HCC) 10/11/19 25 8:50 AM CDT - 10/11/19 25 11:59 PM CDT Hospital Encounter [facility] Imaging [address] [address] Mary Kay Campuzano, RT Gustafson, Taylor Quintana, Kacie Jorgensen RN Pancreatic adenocarcinoma (HCC) Discharge Disposition: Discharge to home or self care 10/11/19 25 7:09 AM CDT - 10/11/19 25 11:59 PM CDT Hospital Encounter [facility] Imaging [address] [facility] Medical Office Building 2 [place] [address] Pancreatic adenocarcinoma (HCC) Discharge Disposition: Discharge to home or self care 10/10/19 Telephone [facility] Imaging [address] [address], [place] [address] Leslie Armando RN 10/10/19 Telephone [facility] Imaging [address] [address], [place] [address] Megan Hsu RN 10/08/19 3:45 PM CDT [facility] Cancer Center at [facility] [address] [facility] [place] [address] Pancreatic adenocarcinoma (HCC) 10/08/19 2:00 PM CDT Office Visit [facility] Oncology [address] [facility] [address] [place] [address] Kalli Cox MD Pancreatic adenocarcinoma (HCC) (Primary Dx); Pancreatic mass 09/28/19 1:45 PM CDT Office Visit [facility] Cardiology [address] [facility] [address] [address] Onesimo George MD Atrial fibrillation status post cardioversion (HCC) (Primary Dx); History of cardiac radiofrequency ablation; Essential hypertension; Pancreatic adenocarcinoma (HCC); NOMI on CPAP; Lipid screening 09/21/19 Results Follow-Up [facility] Gastroenterology [address] [place] [address] Medical Office Building 4, [address] [place] [address] Body Outside Consult 09/21/19 Results Follow-Up [facility] Gastroenterology [address] [place] [address] Medical Office Building 4, [address] [place] [address] David Brewer MD Surgical pathology 09/20/19 10:17 AM CDT - 09/20/19 2:37 PM CDT Emergency [facility] Digestive Disease Center [address] [facility] [address] [place] [address] Morgan Celestin MD Das, Koushik Kumar, MD Fall, initial encounter (Primary Dx); Pancreatic mass Discharge Disposition: Discharge to home or self care 09/20/19 12:40 PM CDT Anesthesia Event [facility] Digestive Disease [place] [address] [facility] [address] [place] [address] Travis Whittington MD 09/20/19 9:30 AM CDT - 09/20/19 10:30 AM CDT Surgery [facility] Digestive Disease [place] [address] [facility] [address] [place] [address] David Brewer MD ESOPHAGOGASTRODUODENOSCOPY ULTRASOUND FINE NEEDLE ASPIRATION/BIOPSY [GI534] 09/19/19 Telephone [facility] Department of Hepatobiliary, Pancreatic, & Gastrointestinal Surgery [address] [facility] 12th Floor, [place] [address] Hilda Love PA 09/18/19 25 12:15 PM CDT Lab [facility] at [address] [place] [address] Pancreatic mass; 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, unspecified; Encounter for follow-up examination after completed treatment for conditions other than malignant neoplasm 09/18/19 25 Telephone [facility] Surgery [address] [place] [address] [address] [place] [address] Susan Marroquin RN 09/18/19 25 8:30 AM CDT Office Visit [facility] Surgery [address] [place] [address] [address] [place] [address] Daisy Mercado MD Pancreatic mass (Primary Dx); Other specified diseases of pancreas; Encounter for follow-up examination after completed treatment for conditions other than malignant neoplasm; Neoplasm of uncertain behavior of other specified digestive organs 09/14/19 25 Orders Only [facility] Surgery [address] [place] [address] [address] [place] [address] Ana Sánchez PA Liver lesion (Primary Dx) 09/14/19 Orders Only [facility] Gastroenterology [facility] Medical Office Building 4, [address] [place] [address] David Brewer MD Elevated liver function tests (Primary Dx) 09/14/19 12:53 PM CDT - 09/14/19 11:59 PM CDT Hospital Encounter [facility] Radiology [facility] [address] [place] [phone] Pancreatic mass Discharge Disposition: Discharge to home or self care 09/13/19 Telephone [facility] Gastroenterology [address] [place] [address] Medical Office Building 4, [address] [place] [address] Arlyn Segovia, family consultant call 09/13/19 Orders Only [facility] Gastroenterology [address] [place] [address] Medical Office Building 4, [address] [place] [address] Arlyn Segovia, RN Pancreatic mass (Primary Dx) 09/12/19 Results Follow-Up [facility] Gastroenterology [address] [place] [address] Medical Office Building 4, [address] [place] [address] David Brewer MD Surgical pathology 09/12/19 Telephone [facility] Surgery [address] [facility] [address] [place] [address] Susan Marroquin RN 09/07/19 Orders Only [facility] GI Center [address] [place] [phone] David Brewer MD 09/07/19 1:07 PM CDT Anesthesia Event [facility] GI Center [address] [place] [phone] Wayne Nicholson MD 09/07/19 10:35 AM CDT Lab [facility] Outpatient Lab [address] [place] [phone] Pancreatic mass; Elevated liver function tests 09/07/19 6:50 AM CDT - 09/07/19 11:59 PM CDT Hospital Encounter [facility] GI Center [facility] [place] [address] Upper abdominal pain Discharge Disposition: Discharge to home or self care 09/07/19 12:30 PM CDT - 09/07/19 25 1:00 PM CDT Surgery [facility] GI Center [address] [place] [address] David Brewer MD ESOPHAGOGASTRODUODENOSCOPY ULTRASOUND GUIDE LIMITED 09/07/19 11:07 AM CDT - 09/07/19 4:10 PM CDT Hospital Encounter [facility] GI Center [address] [place] [address] Geoffrey Shaver MD Das, Koushik Kumar, MD Pancreatic mass; Elevated liver function tests Discharge Disposition: Discharge to home or self care 09/06/19 1:04 PM CDT - 09/06/19 11:59 PM CDT Hospital Encounter [facility] Radiology [facility] [address] [place] [address] Diagnosis unknown Discharge Disposition: Discharge to home or self care 09/05/19 25 Telephone [facility] Cardiology [address] [facility] [address] [address] Onesimo George MD cardiac clearance 09/05/19 25 Telephone [facility]astroenterology [address] [facility] Medical Office Building [address], [address] [place] [address] Carmen Ordonez LPN GI Preprocedure 09/04/19 25 Telephone [place] [facility] ([facility]) - [facility] Minimally Invasive Surgery [address] [facility] 12th Floor, [place] [address] Daisy Mercado MD Medical Question/Miscellaneous 09/03/19 25 Orders Only [facility] Surgery [address] [facility] [address] [place] [address] Ana Sánchez PA Pancreatic mass [...] with simethicone-diphe nhydramine-lidoca ine (MAGIC MOUTHWASH) suspension [id number]: Pancreatic adenocarcinoma (HCC) Swish and swallow 10-15 [...] Hgb. - pelvis US pending - outpatient grain elevator clerk follow up Assessment & Plan (10/24/2024 1:44 PM CDT): Reports recent vaginal spotting when wiping. Stable Hgb. - pelvis US - outpatient grain elevator clerk follow up Assessment & Plan (10/23/2024 3:54 PM CDT): Reports recent vaginal spotting when wiping. Stable Hgb. - pelvis US - outpatient grain elevator clerk follow up Moderate malnutrition 10/22/2024 Left upper [...] onc c/s - continue home Creon - PT/OT/MANAGER HUMAN RESOURCES and RD consult for falls and dysphagia [...] onc c/s - continue home Creon - PT/OT/MANAGER HUMAN RESOURCES and RD consult for falls and dysphagia [...] onc c/s - continue home Creon - PT/OT/MANAGER HUMAN RESOURCES and RD consult for falls and dysphagia Assessment & Plan (10/21/2024 7:27 PM CDT): Dx 09/2024 on gemcitabine (last 10/15/2024). Chronic abdominal pain with reported mechanical falls over past week. Given weight loss with malignancy and weight gain with anasarca, patient high risk for sarcopenia. Continue oncology management as well as therapy evaluations as below. - continue home morphine ER and PRN - [facility] consult - continue home Creon - PT/OT/MANAGER HUMAN RESOURCES and RD consult for falls and dysphagia Pancreatic mass 09/04/2024 Elevated liver function tests 09/04/2024 Intractable pain 02/25/2023 Dizziness 11/07/2022 Mixed anxiety and depressive disorder 06/21/2022 Assessment & Plan (06/21/2022 7:25 PM WHITE SUGAR PAN TANK OPERATOR): Worsening after of her mother in 04/2022. [...] opium Assessment & Plan (06/21/2022 7:16 PM WHITE SUGAR PAN TANK OPERATOR): Ongoing for approximately 1 week after finishing a course of cefdinir for UTI. No more urinary symptoms or abdominal pain. No acute findings on exam. Will order CDiff test. Advised on Bowel rest: push fluids, bland high fiber diet. Continue immodium if needed. Vulvovaginitis 06/20/2022 Assessment & Plan (06/21/2022 7:17 PM WHITE SUGAR PAN TANK OPERATOR): S/p cefdinir course for UTI. Denies discharge or genital lesions. exam deferred per pt request. Rxd Diflucan as directed. Use mild non-fragrant soaps/lotions. Recurrent UTI 06/08/2022 Assessment & Plan (06/08/2022 2:35 PM WHITE SUGAR PAN TANK OPERATOR): Currently on Abx for treatment. Patient to [...] hypotension Assessment & Plan (06/21/2022 7:12 PM WHITE SUGAR PAN TANK OPERATOR): BP stable in office today on current therapy. Continue current regimen and low salt diet. Stay hydrated. Assessment & Plan (06/08/2022 2:36 PM WHITE SUGAR PAN TANK OPERATOR): Chronic and mildly elevated. Goal < 130/80. [...] elsewhere Assessment & Plan (06/08/2022 2:35 PM WHITE SUGAR PAN TANK OPERATOR): Chronic and stable. 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 with solid surface fabricator Assessment & Plan (12/23/2021 12:10 PM CDT): [...] materials from doctor or pharmacy Sometimes 11/04/2024 [facility] Utilities Answer Date Recorded In the past 12 months has [employer], oil, or water [employer] threatened to shut off services in your [...] How often do you attend chur or congregation services? Never 10/22/2024 Do you belong to any clubs o r organizations such as shinto groups, unions, fraternal or athletic groups, or [...] in a snf (including now)? No 02/27/2023 Housing Stability Vital Sign Answer Devan e Recorded In the last 12 months, was t here a time when you were not able to pay the mortgage or rent on time? No 10/22/2024 In the past 12 months, how m any times have you moved where you were living? 0 10/22/2024 At any time in the past 12 m [facility], were you homeless or living in a snf (including now)? No 10/22/2024 Personal Safety Answer Date Recorded Have you ever been in or are you currently in a harmful physical or emotional relationship or is someone making you feel afraid or unsafe? Denies 10/21/2024 Comments No Sex and Gender Information Value Date Recorded Sex Assigned at Not on file Legal Sex Female 6:30 PM WHITE SUGAR PAN TANK OPERATOR Gender Identity Not on file Sexual [...] on file Medical Devices Implanted Type Area Photogrammetric Compilation Specialist Device Identifier Shelf Expiration Date Model / Serial / Lot Conmed Chris Viabil 10mm X 6cm Shortwire [id number] - [id number] - [id number] Implanted:Qty: 1 on 09/06/2024 by David Brewer MD at [facility] Stent N/A: Bile Duct Conmed Chris 06/19/2027 [id number] / [id number] / [employer] Excela Low Porfile Power Port 8fr 1.6mm 1 Lumen [id number] - [id number] Implanted:Qty: 1 on 10/10/2024 at [facility] [employer] 05/07/2029 [id number] / / [id number] Procedures Procedure Name Priority Date/Time Associated Diagnosis [...] VIDEO IP Routine 10/23/2024 3:00 PM CDT MANAGER HUMAN RESOURCES EVALUATE AND TREAT VIDEOFLUOROSCOPIC SWALLOW STUDY Routine [...] STAT 4:00 PM CDT Pancreatic adenocarcinoma (HCC) [id number] Routine 10/07/2024 3:52 PM CDT Pancreatic adenocarcinoma [...] CDT 11/12/2024 1:25 PM CDT Narrative [facility] - 11/13/2024 3:55 PM CDT Testing performed by [facility] Microbiology Laboratory ([phone]) us Jackie Szymanski MD LAB MICROBIOLOGY - GEN ERAL ORDERABLES Final Result [facility] Department [place] [address] * eGFR (11/11/2024 9:30 AM CDT) eGFR [...] last reviewed 2021. Testing performed by: [facility], [address] [place] [address] Blood 11/11/2024 9:30 AM CDT 11/11/2024 10:00 AM CDT [facility] Cox MD LAB BLOOD ORDERABLES Gail garcia Result [facility] [address] [address] Department [place] [address] * (ABNORMAL) Differential, auto (11/11/2024 9:30 AM CDT) Pathologist [facility] Neutrophil abs 3.94 1.50 - 6.50 K/cumm Comment:Testing performed by : [facility], [address], [address] [place] [address] Imm gran abs 0.03 0.00 - 0.10 K/cumm ENRIQUE TORRES Comment:Testing performed by : [facility], [address], [address] [place] [address] Lymphocyte abs 1.28 0.80 - 3.30 K/cumm CERNER B[facility]WCH Comment:Testing performed by : [facility], [facility], [address] [place] [address] Monocyte abs 0.92(H) 0.20 - 0.80 K/cumm CERNER [facility] Comment:Testing performed by : [facility], [facility] 2, [address] [place] [address] Eosinophil abs 0.07 0.00 - 0.50 K/cumm CERNER [facility] Comment:Testing performed by : [facility], [facility] 2, [address], [place] [address] Basophil abs 0.06 0.00 - 0.10 K/cumm CERNER [facility] Comment:Testing performed by : [facility], [facility] 2, [address], [place] [address] Neutrophil pct 62.5 % CERNER [facility] Comment: Interpretive Data Percent cell count reference ranges are not reported, since discordance with absolute values may lead to misinterpretation of CBC data. Current Interpretive Data was last revised on 2017. Testing performed by: [facility], [facility], [address] [place] [address] Imm gran pct 0.5 % CERNER [facility] Comment: Interpretive Data Percent cell count reference ranges are not reported, since discordance with absolute values may lead to misinterpretation of CBC data. Current Interpretive Data was last revised on 2017. Testing performed by: [facility], [facility], [address] [place] [address] Lymphocyte pct 20.3 % C[facility]ER [facility] Comment: Interpretive Data Percent cell count reference ranges are not reported, since discordance with absolute values may lead to misinterpretation of CBC data. Current Interpretive Data was last revised on 2017. Testing performed by: [facility], [facility], [address], [place] [address] Monocyte pct 14.6 % C[facility]ER [facility] Comment: Interpretive Data Percent cell count reference ranges are not reported, since discordance with absolute values may lead to misinterpretation of CBC data. Current Interpretive Data was last revised on 2017. Testing performed by: [facility], [facility], [address] [place] [address] Eosinophil pct 1.1 % ENRIQUE TORRES Comment: Interpretive Data Percent cell count reference ranges are not reported, since discordance with absolute values may lead to misinterpretation of CBC data. Current Interpretive Data was last revised on 2017. Testing performed by: [facility], [address] [place] [address] Basophil pct 1.0 % ENRIQUE TORRES Comment: Interpretive Data Percent cell count reference ranges are not reported, since discordance with absolute values may lead to misinterpretation of CBC data. Current Interpretive Data was last revised on 2017. Testing performed by: [facility] 2, [address] [place] [address] Blood 11/11/2024 9:30 AM CDT 11/11/2024 9:41 AM CDT [facility] Cox MD LAB BLOOD ORDERABLES Gail l Result [facility] [address] [facility]. Department of Laboratories [place], [place] [id number] * (ABNORMAL) CBC with auto differential (11/11/2024 9:30 AM CDT) WBC 6.30 3.80 - 9.90 K/cumm Comment:Testing performed by : [facility], [facility], [address] [place] [address] Hgb 8.3(L) 11.9 - 15.5 g/dL ENRIQUE TORRES Comment:Testing performed by : [facility], [address] [place] [address] Hct 26.1(L) 35.6 - 45.5 % ENRIQUE TORRES Comment:Testing performed by : [facility] 2, [address] [place] [address] Plt 290 150 - 400 K/cumm CERNER BJWCH Comment:Testing performed by : [facility], [facility], [address] [place] [address] MPV 9.8 9.1 - 12.3 fL CERNER BJWCH Comment:Testing performed by : [place] [address], [address] [place] [address] RBC 2.83(L) 3.90 - 5.20 M/cumm CERNER BJWCH Comment:Testing performed by : [facility], [facility], [address] [place] [address] MCV 92.2 81.3 - 96.4 fL CERNER BJWCH Comment:Testing performed by : [place] [address], [address] [place] [address] MCH 29.3 27.1 - 33.3 pg CERNER BJWCH Comment:Testing performed by : [facility], [facility], [address] [place] [address] MCHC 31.8(L) 32.3 - 35.7 g/dL CERNER BJWCH Comment:Testing performed by : [facility] 2, [address] [place] [address] RDW CV 16.1(H) 11.1 - 14.9 % CERNER BJWCH Comment:Testing performed by : [facility] 2, [address] [place] [address] RDW SD 54.2(H) 35.7 - 48.1 fL CERNER BJWCH Comment:Testing performed by : [place] [address], [address] [place] [address] ANC Prelim 3.94 1.50 - 6.50 K/cumm CERNER BJWCH Comment: Interpretive Data The rapid ANC is a preliminary automated count and may vary from the final ANC (Neut Abs) reported in the WBC differential that follows. Current interpretive data was last revised 2024. Testing performed by: [facility], [facility], [address], [place], [place] [address] Blood 11/11/2024 9:30 AM CDT 11/11/2024 9:41 AM CDT Kalli Cox MD LAB BLOOD ORDERABLES Gail l Result [facility] [address] Department [place] [address] * (ABNORMAL) Comprehensive metabolic panel (11/11/2024 9:30 AM CDT) Sodium 137 135 - 145 mmol/L Comment:Testing performed by : [facility], [address] [place] [address] Potassium, pl 3.8 3.3 - 4.9 mmol/L ENRIQUE TORRES Comment:Testing performed by : [facility], [address] [place] [address] Chloride 99 97 - 110 mmol/L ENRIQUE TORRES Comment:Testing performed by : [facility], [address] [place] [address] CO2 29 22 - 32 mmol/L CERMARCELO TORRES Comment:Testing performed by : [facility], [address] [place] [address] Anion gap 9 2 - 15 mmol/L ENRIQUE TORRES Comment:Testing performed by : [facility], [address] [place] [address] BUN 12 6 - 25 mg/dL ENRIQUE BJWCH Comment:Testing performed by : [facility], [address] [place] [address] Creatinine 0.80 0.60 - 1.10 mg/dL CERMARCELO BJWCH Comment:Testing performed by : [facility], [address], [place] [address] Glucose 110 70 - 199 mg/dL CERMARCELO [...] last revised 2022. Testing performed by: [facility], [address], [place] [address] Calcium 9.0 8.5 - 10.3 mg/dL CERNER BJWCH Comment:Testing performed by : [facility], [address], [place] [address] Bilirubin, total 0.3 0.1 - 1.2 mg/dL CERNER BJWCH Comment:Testing performed by : [facility], [address], [place] [address] Protein, pl 6.0(L) 6.5 - 8.5 g/dL CERNER BJWCH Comment:Testing performed by : [facility], [address], [place] [address] Albumin 3.1(L) 3.5 - 5.0 g/dL CERNER BJWCH Comment:Testing performed by : [facility], [address], [place] [address] Alk phos 140(H) 40 - 130 Units/L CERNER BJWCH Comment:Testing performed by : [facility], [address], [place] [address] ALT 13 7 - 45 Units/L CERNER BJWCH Comment:Testing performed by : [facility], [address], [place] [address] AST 23 10 - 45 Units/L CERNER BJWCH Comment:Testing performed by : [facility], [address], [place] [address] Blood 11/11/2024 9:30 AM CDT 11/11/2024 10:00 AM CDT us Kalli Cox MD LAB BLOOD ORDERABLES Gail garcia Result ENRIQUE [facility] [address] [facility]. [place] [address] * TRANSTHORACIC ECHO (TTE) COMPLETE W DOPPLER/CF WO CONTRAST (11/05/2024 2:12 PM CDT) EF Mod BP 74 % CONS SCIMAGE Anatomical Region Laterality Modality Ultrasound 11/05/2024 1:18 PM CDT Narrative 11/06/2024 2:05 PM CDT [facility] [place] [address] Transthoracic Echocardiographic Report Patient Name: SUSANNAH CAMARGO A : 1950 (73y 10m) Gender: F Study Date: 11/05/2024 13:18:30 Ht(Inch): 61 Wt(Lb): 162.04 BSA: 1.78 Grain Elevator Clerk: SHANNA Location: [facility] Order Provider: KALLI COX Heart Rate: 68 [...] Note Jose J Hernandez MD - 11/06/2024 [facility] [place] [address] Transthoracic Echocardiographic Report Patient Name: SUSANNAH CAMARGO A : 1950 (73y 10m) Gender: F Study Date: 11/05/2024 13:18:30 Ht(Inch): 61 Wt(Lb): 162.04 BSA: 1.78 Grain Elevator Clerk: SHANNA Location: [facility] Order Provider: KALLI COX Heart Rate: 68 [...] LA Length 4C 6.24 cm MV Decel Ytzg785.60 msec [ 104.00 - 258.00 ] LA [...] Jose J Hernandez MD 11/06/2024 14:05:24 CDT [facility]aurisio oCx MD CV ECHO PROCEDURES Final Result * [...] last reviewed 2021. Testing performed by: [facility], [address] [place] [address] Blood 10/28/2024 9:38 AM CDT 10/28/2024 10:02 AM CDT us Moh'D M Mili Cox MD LAB BLOOD ORDERABLES Gail garcia Result [facility] [address] [address]. Department of Laboratories [place], [place] [id number] * Differential, auto (10/28/2024 9:38 AM CDT) Neutrophil abs 1.73 1.50 - 6.50 K/cumm Comment:Testing performed by : [facility], [address] [place] [address] Imm gran abs 0.02 0.00 - 0.10 K/cumm CERNER BJWCH Comment:Testing performed by : [facility], [address] [place] [address] Lymphocyte abs 0.98 0.80 - 3.30 K/cumm CERNER BJWCH Comment:Testing performed by : [facility] 2, [address] [place] [address] Monocyte abs 0.56 0.20 - 0.80 K/cumm CERNER BJWCH Comment:Testing performed by : [facility] 2, [address] [place] [address] Eosinophil abs 0.04 0.00 - 0.50 K/cumm CERNER BJWCH Comment:Testing performed by : [facility] 2, [address] [place] [address] Basophil abs 0.01 0.00 - 0.10 K/cumm CERNER BJWCH Comment:Testing performed by : [facility] 2, [address] [place] [address] Neutrophil pct 51.8 % CERNER BJWCH Comment: Interpretive Data Percent cell count reference ranges are not reported, since discordance with absolute values may lead to misinterpretation of CBC data. Current Interpretive Data was last revised on 2017. Testing performed by: [facility] 2, [address] [place] [address] Imm gran pct 0.6 % CERNER BJWCH Comment: Interpretive Data Percent cell count reference ranges are not reported, since discordance with absolute values may lead to misinterpretation of CBC data. Current Interpretive Data was last revised on 2017. Testing performed by: [facility], [facility], [address] [place] [address] Lymphocyte pct 29.3 % CERNER BJWCH Comment: Interpretive Data Percent cell count reference ranges are not reported, since discordance with absolute values may lead to misinterpretation of CBC data. Current Interpretive Data was last revised on 2017. Testing performed by: [facility], [facility], [address] [place] [address] Monocyte pct 16.8 % CERNER BJWCH Comment: Interpretive Data Percent cell count reference ranges are not reported, since discordance with absolute values may lead to misinterpretation of CBC data. Current Interpretive Data was last revised on 2017. Testing performed by: [facility], [facility], [address] [place] [address] Eosinophil pct 1.2 % CERNER BJWCH Comment: Interpretive Data Percent cell count reference ranges are not reported, since discordance with absolute values may lead to misinterpretation of CBC data. Current Interpretive Data was last revised on 2017. Testing performed by: [facility], [facility], [address] [place] [address] Basophil pct 0.3 % CERNER BJWCH Comment: Interpretive Data Percent cell count reference ranges are not reported, since discordance with absolute values may lead to misinterpretation of CBC data. Current Interpretive Data was last revised on 2017. Testing performed by: [facility], [facility], [address] [place] [address] Blood 10/28/2024 9:38 AM CDT 10/28/2024 9:40 AM CDT [facility]D M Kenny BROWN LAB BLOOD ORDERABLES Gail garcia Result [facility] [address] [facility]. Department [place] [address] * (ABNORMAL) CBC with auto differential (10/28/2024 9:38 AM CDT) WBC 3.34(L) 3.80 - 9.90 K/cumm Comment:Testing performed by : [place] [address] [place] [address] Hgb 8.2(L) 11.9 - 15.5 g/dL [facility]ARCELO [facility] Comment:Testing performed by : [place] [address] [place] [address] Hct 26.3(L) 35.6 - 45.5 % [facility]ERMARCELO [facility] Comment:Testing performed by : [place] [address] [place] [address] Plt 218 150 - 400 K/cumm ENRIQUE [facility] Comment:Testing performed by : [place] [address] [place] [address] MPV 8.8(L) 9.1 - 12.3 fL [facility]QUE [facility] Comment:Testing performed by : [place] [address] [place] [address] RBC 2.89(L) 3.90 - 5.20 M/cumm [facility] Comment:Testing performed by : [place] [address] [place] [address] MCV 91.0 81.3 - 96.4 fL ENRIQUE BJWCH Comment:Testing performed by : [place] [address], [address] [place] [address] MCH 28.4 27.1 - 33.3 pg CERMARCELO BJWCH Comment:Testing performed by : [place] [address] [place] [address] MCHC 31.2(L) 32.3 - 35.7 g/dL ENRIQUE TORRES Comment:Testing performed by : [facility], [facility], [address] [place] [address] RDW CV 14.1 11.1 - 14.9 % ENRIQUE TORRES Comment:Testing performed by : [facility], [facility], [address] [place] [address] RDW SD 47.1 35.7 - 48.1 fL ENRIQUE TORRES Comment:Testing performed by : [facility], [facility], [address] [place] [address] ANC Prelim 1.73 1.50 - 6.50 K/cumm ENRIQUE TORERS Comment: Interpretive Data The rapid ANC is a preliminary automated count and may vary from the final ANC (Neut Abs) reported in the WBC differential that follows. Current interpretive data was last revised 2024. Testing performed by: [facility], [facility], [address] [place] [address] Blood 10/28/2024 9:38 AM CDT 10/28/2024 9:40 AM CDT [facility] Cox MD LAB BLOOD ORDERABLES Gail l Result [facility] [address] [address] Department of Laboratories [place], [place] [id number] * (ABNORMAL) Comprehensive metabolic panel (10/28/2024 9:38 AM CDT) Sodium 137 135 - 145 mmol/L Comment:Testing performed by : [facility], [address] [place] [address] Potassium, pl 3.6 3.3 - 4.9 mmol/L ENRIQUE TORRES Comment:Testing performed by : [facility], [address] [place] [address] Chloride 104 97 - 110 mmol/L ENRIQUE TORRES Comment:Testing performed by : [facility], [address], [place] [address] CO2 28 22 - 32 mmol/L CERNER BJWCH Comment:Testing performed by : [facility], [address], [place] [address] Anion gap 5 2 - 15 mmol/L CERNER BJWCH Comment:Testing performed by : [facility], [address], [place] [address] BUN 9 6 - 25 mg/dL CERNER BJWCH Comment:Testing performed by : [facility], [address], [place] [address] Creatinine 0.72 0.60 - 1.10 mg/dL CERNER BJWCH Comment:Testing performed by : [facility], [address], [place] [address] Glucose 87 70 - 199 mg/dL CERNER [...] last revised 2022. Testing performed by: [facility], [address], [place] [address] Calcium 8.9 8.5 - 10.3 mg/dL CERNER BJWCH Comment:Testing performed by : [facility], [address], [place] [address] Bilirubin, total 0.4 0.1 - 1.2 mg/dL CERNER BJWCH Comment:Testing performed by : [facility], [address], [place] [address] Protein, pl 5.4(L) 6.5 - 8.5 g/dL CERNER BJWCH Comment:Testing performed by : [facility], [address], [place] [address] Albumin 3.1(L) 3.5 - 5.0 g/dL CERNER BJWCH Comment:Testing performed by : [facility], [address], [place] [address] Alk phos 189(H) 40 - 130 Units/L CERNER BJWCH Comment:Testing performed by : [facility], [address], [place] [address] ALT 12 7 - 45 Units/L CERNER BJWCH Comment:Testing performed by : [facility], [address], [place] [address] AST 20 10 - 45 Units/L CERNER BJWCH Comment:Testing performed by : [facility], [address], [place] [address] Blood 10/28/2024 9:38 AM CDT 10/28/2024 10:02 AM CDT Kalli Cox MD LAB BLOOD ORDERABLES Gail l Result [facility] [address] Department [place] [address] * POCT glucose (10/25/2024 11:40 AM CDT) Glucose, POC 80 70 - 199 mg/dL Blood 10/25/2024 11:4 0 AM CDT 10/25/2024 11:40 AM CDT Tana Coronado MD LAB POCT ORDERABLES - DEVICE Final Result [facility] Department [place] [address] * US Transvaginal (10/25/2024 10:30 AM CDT) [...] LAB POCT ORDERABLES - DEVICE Final Result [facility] Department [place] [address] * eGFR (10/25/2024 1:45 AM CDT) eGFR [...] LAB BLOOD ORDER SHANT Final Result [facility] One [facility] Department [place] [address] * (ABNORMAL) Differential, auto (10/25/2024 1:45 AM CDT) Neutrophil abs 1.51 1.50 - 6.50 K/cumm Imm gran abs 0.01 0.00 - 0.10 K/cumm [facility] Lymphocyte abs 0.70(L) 0.80 - 3.30 K/cumm [facility] Monocyte abs 0.52 0.20 - 0.80 K/cumm [facility] Eosinophil abs 0.04 0.00 - 0.50 K/cumm [facility] Basophil abs 0.01 0.00 - 0.10 K/cumm [facility] Neutrophil pct 54.1 % [facility] Comment: Interpretive Data Percent cell count reference ranges are not reported, since discordance with absolute values may lead to misinterpretation of CBC data. Current Interpretive Data was last revised on 2017. Imm gran pct 0.4 % [facility] Comment: Interpretive Data Percent cell count reference ranges are not reported, since discordance with absolute values may lead to misinterpretation of CBC data. Current Interpretive Data was last revised on 2017. Lymphocyte pct 25.1 % [facility] Comment: Interpretive Data Percent cell count reference ranges are not reported, since discordance with absolute values may lead to misinterpretation of CBC data. Current Interpretive Data was last revised on 2017. Monocyte pct 18.6 % [facility] Comment: Interpretive Data Percent cell count reference ranges are not reported, since discordance with absolute values may lead to misinterpretation of CBC data. Current Interpretive Data was last revised on 2017. Eosinophil pct 1.4 % [facility] Comment: Interpretive Data Percent cell count reference ranges are not reported, since discordance with absolute values may lead to misinterpretation of CBC data. Current Interpretive Data was last revised on 2017. Basophil pct 0.4 % [facility] Comment: Interpretive Data Percent cell count reference ranges are not reported, since discordance with absolute values may lead to misinterpretation of CBC data. Current Interpretive Data was last revised on 2017. Blood 10/25/2024 1:45 AM CDT 10/25/2024 3:54 AM CDT [facility] Sima Briggs MD LAB BLOOD ORDER SHANT Final Result [facility] Department [place] [address] * (ABNORMAL) CBC with auto differential (10/25/2024 1:45 AM CDT) WBC 2.79(L) 3.80 - 9.90 K/cumm Hgb 7.5(L) 11.9 - 15.5 g/dL [facility] Hct 23.0(L) 35.6 - 45.5 % [facility] Plt 115(L) 150 - 400 K/cumm [facility] MPV 9.6 9.1 - 12.3 fL [facility] RBC 2.56(L) 3.90 - 5.20 M/cumm [facility] MCV 89.8 81.3 - 96.4 fL [facility] MCH 29.3 27.1 - 33.3 pg [facility] MCHC 32.6 32.3 - 35.7 g/dL [facility] RDW CV 14.5 11.1 - 14.9 % [facility] RDW SD 47.8 35.7 - 48.1 fL [facility] NRBC abs 0.00 0.00 - 0.01 K/cumm [facility] Blood 10/25/2024 1:45 AM CDT 10/25/2024 3:54 AM CDT Jessi Briggs MD LAB BLOOD ORDER SHANT Final Result [facility] Department [place] [address] * Phosphorus (10/25/2024 1:45 AM CDT) Pathologist [facility] Phosphorus, pl 2.5 2.3 - 4.5 mg/dL Blood 10/25/2024 1:45 AM CDT 10/25/2024 3:54 AM CDT Jessi Briggs MD LAB BLOOD ORDER SHANT Final Result Performing Organization Address [facility] Co de Phone Number [facility] Department [place] [address] * (ABNORMAL) Comprehensive metabolic panel (10/25/2024 1:45 AM CDT) [facility] Sodium 142 135 - 145 mmol/L Potassium, pl 3.3 3.3 - 4.9 mmol/L [facility] Chloride 106 97 - 110 mmol/L [facility] CO2 29 22 - 32 mmol/L [facility] Anion gap 7 2 - 15 mmol/L [facility] BUN 5(L) 6 - 25 mg/dL [facility] Creatinine 0.69 0.60 - 1.10 mg/dL [facility] Glucose 90 70 - 199 mg/dL [facility] Comment: Interpretive Data Fasting glucose >/= [...] 2022. Calcium 8.3(L) 8.5 - 10.3 mg/dL [facility] Bilirubin, total 0.3 0.1 - 1.2 mg/dL [facility] Protein, pl 4.9(L) 6.5 - 8.5 g/dL [facility] Albumin 2.7(L) 3.5 - 5.0 g/dL [facility] Alk phos 148(H) 40 - 130 Units/L [facility] ALT 11 7 - 45 Units/L [facility] AST 16 10 - 45 Units/L [facility] Blood 10/25/2024 1:45 AM CDT 10/25/2024 3:54 AM CDT Jessi Briggs MD LAB BLOOD ORDER SHANT Final Result Performing Organization Address [facility] Co de Phone Number [facility] Department [place] [address] * POCT glucose (10/25/2024 1:43 AM CDT) Glucose, POC 104 70 - 199 mg/dL Blood 10/25/2024 1:43 AM CDT 10/25/2024 1:43 AM CDT Tana Coronado MD LAB POCT ORDERABLES - DEVICE Final Result Performing Organization Address City/[facility]/ZIP Co de Phone Number [facility] Department [place] [address] * POCT glucose (10/24/2024 8:55 PM CDT) Glucose, POC 105 70 - 199 mg/dL Blood 10/24/2024 8:55 PM CDT 10/24/2024 8:55 PM CDT Tana Coronado MD LAB POCT ORDERABLES - DEVICE Final Result Performing Organization Address [facility] Co de Phone Number [facility] Department [place] [address] * POCT glucose (10/24/2024 6:11 PM CDT) Glucose, POC 80 70 - 199 mg/dL Blood 10/24/2024 6:11 PM CDT 10/24/2024 6:11 PM CDT Tana Coronado MD LAB POCT ORDERABLES - DEVICE Final Result ENRIQUE [facility] [place] [address] * Diagnostic Mammogram Bilateral W Ayad (10/24/2024 [...] bilateral axilla was performed by a trained java programming professor and Dr. Andrade. Subsequently, full field digital [...] bilateral axilla was performed by a trained java programming professor and Dr. Andrade. Subsequently, full field digital [...] - DEVICE Final Result Performing Organization Address [facility] Co de Phone Number [facility] [place] [address] * POCT glucose (10/24/2024 8:49 AM CDT) Glucose, POC 98 70 - 199 mg/dL Blood 10/24/2024 8:49 AM CDT 10/24/2024 8:49 AM CDT us Tana Coronado MD LAB POCT ORDERABLES - DEVICE Final Result Performing Organization Address [facility] Co de Phone Number [facility] [place] [address] * POCT glucose (10/24/2024 2:00 AM CDT) Glucose, POC 88 70 - 199 mg/dL Blood 10/24/2024 2:00 AM CDT 10/24/2024 2:00 AM CDT us Tana Coronado MD LAB POCT ORDERABLES - DEVICE Final Result Performing Organization Address City/[facility] Co de Phone Number [facility] Department [place] [address] * eGFR (10/24/2024 1:50 AM CDT) Pathologist [facility] eGFR >90 >=60 mL/min/1. 73 m2 Comment: [...] LAB BLOOD ORDER SHANT Final Result [facility] Department [place] [address] * Differential, auto (10/24/2024 1:50 AM CDT) Pathologist [facility] Neutrophil abs 2.44 1.50 - 6.50 K/cumm Imm gran abs 0.02 0.00 - 0.10 K/cumm [facility] Lymphocyte abs 1.24 0.80 - 3.30 K/cumm [facility] Monocyte abs 0.74 0.20 - 0.80 K/cumm [facility] Eosinophil abs 0.08 0.00 - 0.50 K/cumm [facility] Basophil abs 0.01 0.00 - 0.10 K/cumm [facility] Neutrophil pct 53.9 % [facility] Comment: Interpretive Data Percent cell count reference ranges are not reported, since discordance with absolute values may lead to misinterpretation of CBC data. Current Interpretive Data was last revised on 2017. Imm gran pct 0.4 % [facility] Comment: Interpretive Data Percent cell count reference ranges are not reported, since discordance with absolute values may lead to misinterpretation of CBC data. Current Interpretive Data was last revised on 2017. Lymphocyte pct 27.4 % [facility] Comment: Interpretive Data Percent cell count reference ranges are not reported, since discordance with absolute values may lead to misinterpretation of CBC data. Current Interpretive Data was last revised on 2017. Monocyte pct 16.3 % [facility] Comment: Interpretive Data Percent cell count reference ranges are not reported, since discordance with absolute values may lead to misinterpretation of CBC data. Current Interpretive Data was last revised on 2017. Eosinophil pct 1.8 % [facility] Comment: Interpretive Data Percent cell count reference ranges are not reported, since discordance with absolute values may lead to misinterpretation of CBC data. Current Interpretive Data was last revised on 2017. Basophil pct 0.2 % [facility] Comment: Interpretive Data Percent cell count reference ranges are not reported, since discordance with absolute values may lead to misinterpretation of CBC data. Current Interpretive Data was last revised on 2017. Blood 10/24/2024 1:50 AM CDT 10/24/2024 2:13 AM CDT Jessi Briggs MD LAB BLOOD ORDER SHANT Final Result [facility] Department [place] [address] * Calcium, ionized (10/24/2024 1:50 AM CDT) Calcium, Ionized 4.85 4.50 - 5.10 mg/dL Blood 10/24/2024 1:50 AM CDT 10/24/2024 2:10 AM CDT us Tana Coronado MD LAB BLOOD ORDERABLES Final Result [facility] Department [place] [address] * (ABNORMAL) CBC with auto differential (10/24/2024 1:50 AM CDT) WBC 4.53 3.80 - 9.90 K/cumm Hgb 8.8(L) 11.9 - 15.5 g/dL [facility] Hct 26.9(L) 35.6 - 45.5 % [facility] Plt 160 150 - 400 K/cumm [facility] MPV 9.8 9.1 - 12.3 fL [facility] RBC 2.97(L) 3.90 - 5.20 M/cumm [facility] MCV 90.6 81.3 - 96.4 fL [facility] MCH 29.6 27.1 - 33.3 pg [facility] MCHC 32.7 32.3 - 35.7 g/dL [facility] RDW CV 14.5 11.1 - 14.9 % [facility] RDW SD 48.5(H) 35.7 - 48.1 fL [facility] NRBC abs 0.00 0.00 - 0.01 K/cumm [facility] Blood 10/24/2024 1:50 AM CDT 10/24/2024 2:13 AM CDT us Jessi Briggs MD LAB BLOOD ORDER SHANT Final Result [facility] [place] [address] * Type and screen (10/24/2024 1:50 AM CDT) ABO Rh O Negative Brigitte, indirect Negative [facility] Blood 10/24/2024 1:50 AM CDT 10/24/2024 2:25 AM CDT [facility] - 10/24/2024 3:52 AM CDT Has the patient had Daratumumab or Isatuximab in the past 6 months?->Unknown Jessi Briggs MD LAB BLOOD BANK TEST ORDERABLES Final Result Performing Organization Address City/[facility]/ZIP Co de Phone Number [facility] [place] [address] * Uric acid (10/24/2024 1:50 AM CDT) Pathologist [facility] Uric acid 3.8 2.5 - 7.0 mg/dL Blood 10/24/2024 1:50 AM CDT 10/24/2024 2:13 AM CDT Narrative [facility] - 10/24/2024 2:40 AM CDT Monday and only. Morning draw. . Jessi Briggs MD LAB BLOOD ORDER SHANT Final Result Performing Organization Address City/[facility] [place] [address] * Phosphorus (10/24/2024 1:50 AM CDT) Pathologist [facility] Phosphorus, pl 2.4 2.3 - 4.5 mg/dL Blood 10/24/2024 1:50 AM CDT 10/24/2024 2:13 AM CDT Jessi Briggs MD LAB BLOOD ORDER SHANT Final Result Performing Organization Address City/[facility] [place] [address] * Lactate dehydrogenase (LD) (10/24/2024 1:50 AM CDT) Pathologist [facility] Lactate dehydrogenase (LDH) 213 100 - 250 Units/L Blood 10/24/2024 1:50 AM CDT 10/24/2024 2:13 AM CDT Narrative [facility] - 10/24/2024 2:40 AM CDT Monday and only. Morning draw. Jessi Briggs MD LAB BLOOD ORDER SHANT Final Result [facility] Department [place] [address] * (ABNORMAL) Comprehensive metabolic panel (10/24/2024 1:50 AM CDT) [facility] Sodium 138 135 - 145 mmol/L Potassium, pl 3.6 3.3 - 4.9 mmol/L [facility] Chloride 107 97 - 110 mmol/L [facility] CO2 28 22 - 32 mmol/L [facility] Anion gap 3 2 - 15 mmol/L [facility] BUN 8 6 - 25 mg/dL [facility] Creatinine 0.63 0.60 - 1.10 mg/dL [facility] Glucose 88 70 - 199 mg/dL [facility] Comment: Interpretive Data Fasting glucose >/= [...] Calcium 8.9 8.5 - 10.3 mg/dL [facility] Bilirubin, total 0.3 0.1 - 1.2 mg/dL [facility] Protein, pl 5.8(L) 6.5 - 8.5 g/dL [facility] Albumin 3.1(L) 3.5 - 5.0 g/dL [facility] Alk phos 185(H) 40 - 130 Units/L [facility] ALT 13 7 - 45 Units/L [facility] AST 20 10 - 45 Units/L [facility] Blood 10/24/2024 1:50 AM CDT 10/24/2024 2:13 AM CDT us Jessi Briggs MD LAB BLOOD ORDER SHANT Final Result Performing Organization Address [facility] Co de Phone Number [facility] [place] [address] * (ABNORMAL) Vancomycin level trough (10/23/2024 11:26 PM CDT) Vancomycin trough 5.7(L) 10.0 - 20.0 mcg/mL Blood 10/23/2024 11:2 6 PM CDT 10/23/2024 11:36 PM CDT us Cayla Solorzano MD LAB BLOOD ORDERABLES Final Resul t Performing Organization Address [facility] [place] [address] * POCT glucose (10/23/2024 8:27 PM CDT) Glucose, POC 98 70 - 199 mg/dL Blood 10/23/2024 8:27 PM CDT 10/23/2024 8:27 PM CDT us Tana Coronado MD LAB POCT ORDERABLES - DEVICE Final Result Performing Organization Address [facility] de Phone Number [facility] [place] [address] * POCT glucose (10/23/2024 5:50 PM CDT) Glucose, POC 104 70 - 199 mg/dL Blood 10/23/2024 5:50 PM CDT 10/23/2024 5:50 PM CDT us Tana Coronado MD LAB POCT ORDERABLES - DEVICE Final Result [facility] Department [place] [address] * FL Modified Barium Swallow W Video [...] and agrees with it. Electronically signed by: Farnck Arellano M.D. Narrative 10/23/2024 3:55 PM CDT [...] IMG FLUOROSCOPY PROC EDURES Final Result * [employer] Evaluate and Treat (VFSS) (10/23/2024 2:38 PM [...] h/o gastric sleeve, who presents to the [facility] 10/21/24 due to Fever at home. She [...] thin liquid General Information Susannah Camargo 10/23/24 [employer] Received On: 10/23/24 General Observations: alert, cooperative [...] SHERI indicate need for nonoral nutrition. Plan [employer] Recommendation (Add'l Services): No further [employer] indicated (do not anticipate MANA[employer] needs at discharge) Next Visit Plan: treatment/therapy Discharge Summary Statement If this is the last swallow therapy visit, this serves as the discharge summary. Tana Coronado MD [employer] ORDERABLES Gail l Result * POCT glucose (10/23/2024 11:58 AM CDT) Glucose, POC 78 70 - 199 mg/dL Blood 10/23/2024 11:5 8 AM CDT 10/23/2024 11:58 AM CDT Tana Coronado MD LAB POCT ORDERABLES - DEVICE Final Result Performing Organization Address [facility] Co de Phone Number [facility] [place] [address] * POCT glucose (10/23/2024 7:26 AM CDT) Pathologist [facility] Glucose, POC 84 70 - 199 mg/dL Blood 10/23/2024 7:26 AM CDT 10/23/2024 7:26 AM CDT Tana Coronado MD LAB POCT ORDERABLES - DEVICE Final Result Performing Organization Address [facility]/ZIP Co de Phone Number [facility] [place] [address] * eGFR (10/23/2024 12:28 AM CDT) eGFR [...] LAB BLOOD ORDER SHANT Final Result [facility] [place] [address] * (ABNORMAL) Differential, auto (10/23/2024 12:28 AM CDT) Neutrophil abs 2.24 1.50 - 6.50 K/cumm Imm gran abs 0.01 0.00 - 0.10 K/cumm [facility] Lymphocyte abs 0.74(L) 0.80 - 3.30 K/cumm [facility] Monocyte abs 0.54 0.20 - 0.80 K/cumm [facility] Eosinophil abs 0.03 0.00 - 0.50 K/cumm [facility] Basophil abs 0.01 0.00 - 0.10 K/cumm [facility] Neutrophil pct 62.8 % [facility] Comment: Interpretive Data Percent cell count reference ranges are not reported, since discordance with absolute values may lead to misinterpretation of CBC data. Current Interpretive Data was last revised on 2017. Imm gran pct 0.3 % [facility] Comment: Interpretive Data Percent cell count reference ranges are not reported, since discordance with absolute values may lead to misinterpretation of CBC data. Current Interpretive Data was last revised on 2017. Lymphocyte pct 20.7 % [facility] Comment: Interpretive Data Percent cell count reference ranges are not reported, since discordance with absolute values may lead to misinterpretation of CBC data. Current Interpretive Data was last revised on 2017. Monocyte pct 15.1 % [facility] Comment: Interpretive Data Percent cell count reference ranges are not reported, since discordance with absolute values may lead to misinterpretation of CBC data. Current Interpretive Data was last revised on 2017. Eosinophil pct 0.8 % [facility] Comment: Interpretive Data Percent cell count reference ranges are not reported, since discordance with absolute values may lead to misinterpretation of CBC data. Current Interpretive Data was last revised on 2017. Basophil pct 0.3 % [facility] Comment: Interpretive Data Percent cell count reference ranges are not reported, since discordance with absolute values may lead to misinterpretation of CBC data. Current Interpretive Data was last revised on 2017. Blood 10/23/2024 12:2 8 AM CDT 10/23/2024 12:47 AM CDT Jessi Briggs MD LAB BLOOD ORDER SHANT Final Result [facility] Department [place] [address] * (ABNORMAL) CBC with auto differential (10/23/2024 12:28 AM CDT) WBC 3.57(L) 3.80 - 9.90 K/cumm Hgb 8.0(L) 11.9 - 15.5 g/dL [facility] Hct 24.1(L) 35.6 - 45.5 % [facility] Plt 124(L) 150 - 400 K/cumm [facility] MPV 10.5 9.1 - 12.3 fL [facility] RBC 2.72(L) 3.90 - 5.20 M/cumm [facility] MCV 88.6 81.3 - 96.4 fL [facility] MCH 29.4 27.1 - 33.3 pg [facility] MCHC 33.2 32.3 - 35.7 g/dL [facility] RDW CV 14.7 11.1 - 14.9 % [facility] RDW SD 47.7 35.7 - 48.1 fL [facility] NRBC abs 0.00 0.00 - 0.01 K/cumm [facility] Blood 10/23/2024 12:2 8 AM CDT 10/23/2024 12:47 AM CDT Jessi Briggs MD LAB BLOOD ORDER SHANT Final Result Performing Organization Address City/[facility]/ZIP Co de Phone Number [facility] Department [place] [address] * (ABNORMAL) Phosphorus (10/23/2024 12:28 AM CDT) [facility] Phosphorus, pl 2.1(L) 2.3 - 4.5 mg/dL Blood 10/23/2024 12:2 8 AM CDT 10/23/2024 12:46 AM CDT Jessi Briggs MD LAB BLOOD ORDER SHANT Final Result Performing Organization Address City/[facility]/ZIP Co de Phone Number [facility] Department [place] [address] * (ABNORMAL) Comprehensive metabolic panel (10/23/2024 12:28 AM CDT) [facility] Sodium 137 135 - 145 mmol/L Potassium, pl 3.5 3.3 - 4.9 mmol/L [facility] Chloride 105 97 - 110 mmol/L [facility] CO2 27 22 - 32 mmol/L [facility] Anion gap 5 2 - 15 mmol/L [facility] BUN 8 6 - 25 mg/dL [facility] Creatinine 0.58(L) 0.60 - 1.10 mg/dL [facility] Glucose 122 70 - 199 mg/dL [facility] Comment: Interpretive Data Fasting glucose >/= [...] Calcium 8.2(L) 8.5 - 10.3 mg/dL [facility] Bilirubin, total 0.4 0.1 - 1.2 mg/dL [facility] Protein, pl 5.3(L) 6.5 - 8.5 g/dL [facility] Albumin 2.8(L) 3.5 - 5.0 g/dL [facility] Alk phos 175(H) 40 - 130 Units/L [facility] ALT 14 7 - 45 Units/L [facility] AST 17 10 - 45 Units/L [facility] Blood 10/23/2024 12:2 8 AM CDT 10/23/2024 12:46 AM CDT us Jessi Briggs MD LAB BLOOD ORDER SHANT Final Result Performing Organization Address City/[facility]/ZIP Co de Phone Number [facility] Department [place] [address] * POCT glucose (10/22/2024 8:01 PM CDT) [facility] Signature Glucose, POC 112 70 - 199 mg/dL Blood 10/22/2024 8:01 PM CDT 10/22/2024 8:01 PM CDT us Tana Coronado MD LAB POCT ORDERABLES - DEVICE Final Result Performing Organization Address City/[facility]/ZIP Co de Phone Number [facility] Department [place] [address] * POCT glucose (10/22/2024 5:14 PM CDT) Glucose, POC 99 70 - 199 mg/dL Blood 10/22/2024 5:14 PM CDT 10/22/2024 5:14 PM CDT Tana Coronado MD LAB POCT ORDERABLES - DEVICE Final Result [facility] [place] [address] * US Vein Duplex Upper Extremity Left Limited, Unilateral (10/22/2024 4:42 PM CDT) Anatomical Region Laterality Modality Vascular Left Ultrasound 10/22/2024 4:10 PM CDT Narrative 10/22/2024 9:32 PM CDT [facility] - Department of Vascular Surgery, Vascular Laboratory [address] [place] [id number] Upper Extremity Venous Ultrasound Report Patient Name: SUSANNAH CAMARGO : 1950 (73y 9m) Study Date: 10/22/2024 4:10:04 PM Gender: F Tech: [place] Location: [id number] Ref Provider: TANA CORONADO Quality: Adequate Order Provider: TANA CORONADO PROCEDURES: Vascular Report: Venous Duplex imaging was performed in the left upper extremity. The internal jugular, subclavian and axillary veins were evaluated for patency, spontaneity and phasicity with Doppler, compression and augmentation maneuvers. The brachial, basilic and cephalic veins were also evaluated with compression maneuvers. INDICATIONS: LUE swelling, erythema. FINDINGS: Performing Grain Elevator Clerk: Halley Castillo RVT. Left: Venous Doppler signals [...] Procedure Note Dano Gleason MD - 10/22/2024 [employer] - Department of Vascular Surgery,Vascular Laboratory [address] [place] [address] Upper Extremity Venous Ultrasound Report Patient Name: SUSANNAH CAMARGO : 1950 (73y 9m) Study Date: 10/22/2024 4:10:04 PM Gender: F Tech: [place] Location: [id number] Ref Provider: TANA CORONADO Quality: Adequate Order Provider: TANA CORONADO PROCEDURES: Vascular Report: Venous Duplex imaging was performed in the left upper extremity. Theinternal jugular, subclavian and axillary veins were evaluated for patency, spontaneity andphasicity with Doppler, compression and augmentation maneuvers. The brachial, basilic andcephalic veins were also evaluated with compression maneuvers. INDICATIONS: LUE swelling, erythema. FINDINGS: Performing Grain Elevator Clerk: Halley Castillo RVT. Left: Venous Doppler signals [...] [facility] [place] [address] * POCT glucose (10/22/2024 7:14 AM CDT) Glucose, POC 73 70 - 199 mg/dL Blood 10/22/2024 7:14 AM CDT 10/22/2024 7:14 AM CDT Tana Coronado MD LAB POCT ORDERABLES - DEVICE Final Result [facility] [place] [address] * Stool culture Stool Rectum (10/22/2024 6:46 AM CDT) [facility] Signature Direct Specimen Exam Shiga Toxin Testing: Antigen detection assay for Shiga-toxin NEGATIVE for Shiga Toxin 1 and Shiga Toxin 2. Report Final Report: No growth of enteric bacterial pathogens [facility] Stool (Rectum) 10/22/2024 6: 46 AM CDT 10/22/2024 7:57 AM CDT Narrative [facility] - 10/26/2024 9:59 AM CDT Testing performed by [facility] ([phone]). Routine stool cultures include procedures to detect Salmonella, Shigella, Edwardsiella, Aeromonas, Pleisiomonas, Campylobacter, Yersinia, E. coli O157, and Shiga-like toxins. Vibrio is cultured only upon special request. If Vibrio is suspected, please call the laboratory at [phone]. Interpretive data was last updated August 22, 2016. Jessi Briggs MD LAB MICROBIOLOG Y - GENERAL ORDERABLES Final Result Performing Organization Address City/[facility]/ZIP Co de Phone Number [facility] [place] [address] * eGFR (10/22/2024 2:51 AM CDT) eGFR [...] ORDER SHANT Final Result Performing Organization Address [facility]/ZIP Co de Phone Number [facility] [place] [address] * aPTT (10/22/2024 2:51 AM CDT) aPTT [...] BLOOD ORDER SHANT Final Result [facility] [place] [address] * (ABNORMAL) Protime-INR (10/22/2024 2:51 AM CDT) PT 14.9(H) 9.7 - 13.0 sec INR 1.37(H) 0.90 - 1.20 [facility] Comment: Interpretive data Oral anticoagulant therapeutic ranges: Venous thromboembolism prophylaxis or treatment: 2.0-3.0 CARDIOLOGY Standard range: 2.0-3.0 High-intensity range: 2.5-3.5 Refer to indication-specific guidelines for appropriate target ranges for prosthetic heart valve replacement. Current interpretive data was last revised on 2019. Blood 10/22/2024 2:51 AM CDT 10/22/2024 3:17 AM CDT Jessi Briggs MD LAB BLOOD ORDER SHANT Final Result [facility] [place] [address] * Uric acid (10/22/2024 2:51 AM CDT) Uric acid 3.6 2.5 - 7.0 mg/dL Blood 10/22/2024 2:51 AM CDT 10/22/2024 3:19 AM CDT Narrative [facility] - 10/22/2024 3:48 AM CDT Monday and only. Morning draw. . Jessi Briggs MD LAB BLOOD ORDER SHANT Final Result Performing Organization Address [facility] [place] [address] * Phosphorus (10/22/2024 2:51 AM CDT) [facility] Phosphorus, pl 2.3 2.3 - 4.5 mg/dL Blood 10/22/2024 2:51 AM CDT 10/22/2024 3:19 AM CDT eJssi Briggs MD LAB BLOOD ORDER SHANT Final Result Performing Organization Address [facility] [place] [address] * Lactate dehydrogenase (LD) (10/22/2024 2:51 AM CDT) [facility] Lactate dehydrogenase (LDH) 185 100 - 250 Units/L Blood 10/22/2024 2:51 AM CDT 10/22/2024 3:[address] [facility] 10/22/2024 3:48 AM CDT Monday and only. Morning draw. Jessi Briggs MD LAB BLOOD ORDER SHANT Final Result Performing Organization Address [facility] [place] [address] * (ABNORMAL) Comprehensive metabolic panel (10/22/2024 2:51 AM CDT) [facility] Sodium 136 135 - 145 mmol/L Potassium, pl 3.7 3.3 - 4.9 mmol/L [facility] Chloride 102 97 - 110 mmol/L [facility] CO2 27 22 - 32 mmol/L [facility] Anion gap 7 2 - 15 mmol/L [facility] BUN 9 6 - 25 mg/dL [facility] Creatinine 0.64 0.60 - 1.10 mg/dL [facility] Glucose 107 70 - 199 mg/dL [facility] Comment: Interpretive Data Fasting glucose >/= [...] Calcium 8.6 8.5 - 10.3 mg/dL [facility] Bilirubin, total 0.8 0.1 - 1.2 mg/dL [facility] Protein, pl 5.3(L) 6.5 - 8.5 g/dL [facility] Albumin 2.8(L) 3.5 - 5.0 g/dL [facility] Alk phos 186(H) 40 - 130 Units/L [facility] ALT 13 7 - 45 Units/L [facility] AST 16 10 - 45 Units/L [facility] Blood 10/22/2024 2:51 AM CDT 10/22/2024 3:19 AM CDT Jessi Briggs MD LAB BLOOD ORDER SHANT Final Result [facility] Department [place] [address] * Type and screen (10/22/2024 2:50 AM CDT) Brigitte, indirect Negative ABO Rh O Negative [facility] Blood 10/22/2024 2:50 AM CDT 10/22/2024 3:14 AM CDT Narrative [facility] - 10/22/2024 4:09 AM CDT Has the patient had Daratumumab or Isatuximab in the past 6 months?->Unknown Jessi Briggs MD LAB BLOOD BANK TEST ORDERABLES Final Result Performing Organization Address City/[facility] de Phone Number [facility] [place] [address] * POCT glucose (10/22/2024 2:48 AM CDT) Glucose, POC 77 70 - 199 mg/dL Blood 10/22/2024 2:48 AM CDT 10/22/2024 2:48 AM CDT Kalli Cox MD LAB POCT ORDERABLES - DEV ICE Final Result Performing Organization Address [facility] de Phone Number [facility] [place] [address] * (ABNORMAL) POCT glucose (10/22/2024 2:47 AM CDT) Glucose, POC 60(L) 70 - 199 mg/dL Blood 10/22/2024 2:47 AM CDT 10/22/2024 2:47 AM CDT Kalli Cox MD LAB POCT ORDERABLES - DEV ICE Final Result Performing Organization Address [facility] de Phone Number [facility] [place] [address] * (ABNORMAL) Differential, auto (10/22/2024 2:30 AM CDT) Neutrophil abs 2.33 1.50 - 6.50 K/cumm Imm gran abs 0.02 0.00 - 0.10 K/cumm [facility] Lymphocyte abs 0.73(L) 0.80 - 3.30 K/cumm [facility] Monocyte abs 0.38 0.20 - 0.80 K/cumm [facility] Eosinophil abs 0.02 0.00 - 0.50 K/cumm [facility] Basophil abs 0.00 0.00 - 0.10 K/cumm [facility] Neutrophil pct 66.9 % [facility] Comment: Interpretive Data Percent cell count reference ranges are not reported, since discordance with absolute values may lead to misinterpretation of CBC data. Current Interpretive Data was last revised on 2017. Imm gran pct 0.6 % [facility] Comment: Interpretive Data Percent cell count reference ranges are not reported, since discordance with absolute values may lead to misinterpretation of CBC data. Current Interpretive Data was last revised on 2017. Lymphocyte pct 21.0 % [facility] Comment: Interpretive Data Percent cell count reference ranges are not reported, since discordance with absolute values may lead to misinterpretation of CBC data. Current Interpretive Data was last revised on 2017. Monocyte pct 10.9 % [facility] Comment: Interpretive Data Percent cell count reference ranges are not reported, since discordance with absolute values may lead to misinterpretation of CBC data. Current Interpretive Data was last revised on 2017. Eosinophil pct 0.6 % [facility] Comment: Interpretive Data Percent cell count reference ranges are not reported, since discordance with absolute values may lead to misinterpretation of CBC data. Current Interpretive Data was last revised on 2017. Basophil pct 0.0 % [facility] Comment: Interpretive Data Percent cell count reference ranges are not reported, since discordance with absolute values may lead to misinterpretation of CBC data. Current Interpretive Data was last revised on 2017. Blood 10/22/2024 2:30 AM CDT 10/22/2024 3:19 AM CDT Jessi Briggs MD LAB BLOOD ORDER SHANT Final Result CERNER [facility] Department [place] [address] * (ABNORMAL) CBC with auto differential (10/22/2024 2:30 AM CDT) [facility] WBC 3.48(L) 3.80 - 9.90 K/cumm Hgb 7.9(L) 11.9 - 15.5 g/dL [facility] Hct 24.5(L) 35.6 - 45.5 % [facility] Plt 111(L) 150 - 400 K/cumm [facility] MPV 10.7 9.1 - 12.3 fL [facility] RBC 2.73(L) 3.90 - 5.20 M/cumm [facility] MCV 89.7 81.3 - 96.4 fL [facility] MCH 28.9 27.1 - 33.3 pg [facility] MCHC 32.2(L) 32.3 - 35.7 g/dL [facility] RDW CV 15.0(H) 11.1 - 14.9 % [facility] RDW SD 49.4(H) 35.7 - 48.1 fL [facility] NRBC abs 0.00 0.00 - 0.01 K/cumm [facility] Blood 10/22/2024 2:30 AM CDT 10/22/2024 3:19 AM CDT Jessi Briggs MD LAB BLOOD ORDER SHANT Final Result ENRIQUE [facility] Department [place] [address] * eGFR (10/21/2024 9:15 PM CDT) [facility] eGFR >90 >=60 mL/min/1. 73 m2 Comment: [...] LAB BLOOD ORDER SHANT Final Result [facility] Department [place] [address] * (ABNORMAL) Differential, auto (10/21/2024 9:15 PM CDT) Neutrophil abs 2.53 1.50 - 6.50 K/cumm Imm gran abs 0.03 0.00 - 0.10 K/cumm [facility] Lymphocyte abs 0.69(L) 0.80 - 3.30 K/cumm [facility] Monocyte abs 0.27 0.20 - 0.80 K/cumm [facility] Eosinophil abs 0.01 0.00 - 0.50 K/cumm [facility] Basophil abs 0.00 0.00 - 0.10 K/cumm [facility] Neutrophil pct 71.8 % [facility] Comment: Interpretive Data Percent cell count reference ranges are not reported, since discordance with absolute values may lead to misinterpretation of CBC data. Current Interpretive Data was last revised on 2017. Imm gran pct 0.8 % [facility] Comment: Interpretive Data Percent cell count reference ranges are not reported, since discordance with absolute values may lead to misinterpretation of CBC data. Current Interpretive Data was last revised on 2017. Lymphocyte pct 19.5 % [facility] Comment: Interpretive Data Percent cell count reference ranges are not reported, since discordance with absolute values may lead to misinterpretation of CBC data. Current Interpretive Data was last revised on 2017. Monocyte pct 7.6 % [facility] Comment: Interpretive Data Percent cell count reference ranges are not reported, since discordance with absolute values may lead to misinterpretation of CBC data. Current Interpretive Data was last revised on 2017. Eosinophil pct 0.3 % [facility] Comment: Interpretive Data Percent cell count reference ranges are not reported, since discordance with absolute values may lead to misinterpretation of CBC data. Current Interpretive Data was last revised on 2017. Basophil pct 0.0 % [facility] Comment: Interpretive Data Percent cell count reference ranges are not reported, since discordance with absolute values may lead to misinterpretation of CBC data. Current Interpretive Data was last revised on 2017. Blood 10/21/2024 9:15 PM CDT 10/21/2024 9:32 PM CDT Jessi Briggs MD LAB BLOOD ORDER SHANT Final Result [facility] Department [place] [address] * (ABNORMAL) CBC with auto differential (10/21/2024 9:15 PM CDT) WBC 3.53(L) 3.80 - 9.90 K/cumm Hgb 8.2(L) 11.9 - 15.5 g/dL [facility] Hct 24.5(L) 35.6 - 45.5 % [facility] Plt 114(L) 150 - 400 K/cumm [facility] MPV 10.2 9.1 - 12.3 fL [facility] RBC 2.79(L) 3.90 - 5.20 M/cumm [facility] MCV 87.8 81.3 - 96.4 fL [facility] MCH 29.4 27.1 - 33.3 pg [facility] MCHC 33.5 32.3 - 35.7 g/dL [facility] RDW CV 14.8 11.1 - 14.9 % [facility] RDW SD 48.0 35.7 - 48.1 fL [facility] NRBC abs 0.00 0.00 - 0.01 K/cumm [facility] Blood 10/21/2024 9:15 PM CDT 10/21/2024 9:32 PM CDT Jessi Briggs MD LAB BLOOD ORDER SHANT Final Result [facility] Department [place] [address] * (ABNORMAL) Infection Prevention MRSA Only (Staphylococcus aureus) Culture Nasal (10/21/2024 9:15 PMCDT) Report Final Report: Methicillin-resist ant Staphylococcus aureus (.) Organism METHICILLIN-RESIST ANT STAPHYLOCOCCUS AUREUS [facility] Nasal 10/21/2024 9:15 PM CDT 10/21/2024 9:33 PM CDT Narrative [facility] - 10/24/2024 11:16 AM CDT Testing performed by [facility] ([phone]). Jessi Briggs MD LAB MICROBIOLOG Y - GENERAL ORDERABLES Final Result [facility] Department [place] [address] * (ABNORMAL) Phosphorus (10/21/2024 9:15 PM CDT) Phosphorus, pl 1.9(L) 2.3 - 4.5 mg/dL Blood 10/21/2024 9:15 PM CDT 10/21/2024 9:32 PM CDT Jessi Briggs MD LAB BLOOD ORDER SHANT Final Result Performing Organization Address City/[facility]/ZIP Co de Phone Number [facility] Department [place] [address] * Magnesium (10/21/2024 9:15 PM CDT) [facility] Magnesium 1.6 1.4 - 2.5 mg/dL Blood 10/21/2024 9:15 PM CDT 10/21/2024 9:32 PM CDT Jessi Briggs MD LAB BLOOD ORDER SHANT Final Result Performing Organization Address [facility] Co de Phone Number [facility] Department [place] [address] * (ABNORMAL) Comprehensive metabolic panel (10/21/2024 9:15 PM CDT) [facility] Sodium 137 135 - 145 mmol/L Potassium, pl 3.5 3.3 - 4.9 mmol/L [facility] Chloride 103 97 - 110 mmol/L [facility] CO2 27 22 - 32 mmol/L [facility] Anion gap 7 2 - 15 mmol/L [facility] BUN 9 6 - 25 mg/dL [facility] Creatinine 0.66 0.60 - 1.10 mg/dL [facility] Glucose 98 70 - 199 mg/dL [facility] Comment: Interpretive Data Fasting glucose >/= [...] Calcium 8.7 8.5 - 10.3 mg/dL [facility] Bilirubin, total 0.9 0.1 - 1.2 mg/dL [facility] Protein, pl 5.4(L) 6.5 - 8.5 g/dL [facility] Albumin 2.8(L) 3.5 - 5.0 g/dL [facility] Alk phos 191(H) 40 - 130 Units/L [facility] ALT 14 7 - 45 Units/L [facility] AST 17 10 - 45 Units/L [facility] Blood 10/21/2024 9:15 PM CDT 10/21/2024 9:32 PM CDT Jessi Briggs MD LAB BLOOD ORDER SHANT Final Result Performing Organization Address City/[facility]/ZIP Co de Phone Number [facility] Department [place] [address] * POCT glucose (10/21/2024 8:35 PM CDT) [facility] Glucose, POC 104 70 - 199 mg/dL Blood 10/21/2024 8:35 PM CDT 10/21/2024 8:35 PM CDT us Kalli Cox MD LAB POCT ORDERABLES - DEV ICE Final Result Performing Organization Address [facility]/ZIP Co de Phone Number [facility] Department [place] [address] * ECG 12 lead (10/21/2024 8:17 PM CDT) Ventricular Rate EKG/Min 85 BPM [facility] Atrial Rate 85 BPM [facility] SC-Interval (MSEC) 166 ms [facility] QRS-Interval (MSEC) 96 ms [facility] QT-Interval (MSEC) 352 ms [facility] QTc 418 ms [facility] P [place] 65 degrees [facility] R [place] 30 degrees [facility] T [place] 21 degrees [facility] Diagnosis Normal sinus rhythm Low voltage QRS Nonspecific T wave abnormality Abnormal ECG No previous ECGs available Confirmed by Dorinda Hong MD ([id number]) on 10/23/2024 6:21:31 AM [facility] 10/21/2024 8:17 PM CDT 10/23/2024 6:21 AM CDT Jessi Sima Briggs MD ECG ORDERABLES Final Result [facility] * US Vein Duplex Lower Extremity Bilateral Complete (10/21/2024 4:02 PM CDT) Anatomical Region Laterality Modality Vascular Bilateral Ultrasound 10/21/2024 12:2 5 PM CDT Narrative 10/22/2024 11:07 AM CDT [facility] - Department of Vascular Surgery, Vascular Laboratory [address] [place] [address] Lower Extremity Venous Ultrasound Report Patient Name: SUSANNAH CAMARGO : 1950 (73y 9m) Study Date: 10/21/2024 12:25:49 PM Gender: F Tech: Location: [facility] Provider: JACQUELYN CINTRON Quality: Adequate Order Provider: [...] and pain; r/o DVT - FINDINGS: Performing Grain Elevator Clerk: Taylor Lauren RVT. Bilateral: Venous Doppler signals [...] vein obstruction. HISTORY: Pancreatic Adenocarcinoma presents to [facility] from home for evaluation with daughters accompanying [...] Procedure Note Dano Gleason MD - 10/22/2024 [facility] - Department of Vascular Surgery,Vascular Laboratory [address] [place] [address] Lower Extremity Venous Ultrasound Report Patient Name: SUSANNAH CAMARGO : 1950 (73y 9m) Study Date: 10/21/2024 12:25:49 PM Gender: F Tech: SHANNA Location: [facility] Ref Provider: JACQUELYN CINTRON Quality: Adequate [...] and pain; r/o DVT - FINDINGS: Performing Grain Elevator Clerk: Taylor Lauren RVT. Bilateral: Venous Doppler signals [...] calf veinobstruction. HISTORY: Pancreatic Adenocarcinoma presents to [facility] from home for evaluation withdaughters accompanying r/t [...] (10/21/2024 3:15 PM CDT) Blood Jacquelyn Cintron C T TECH BLOOD TRANSFUSION ORDERABL ES Final Result Performing Organization Address City/[facility]/ZIP Co de Phone Number [facility] [place] [address] * Check Sample (10/21/2024 11:17 AM CDT) ABO Rh O Negative [facility] HCLL OTHER 10/21/2024 11:1 7 AM CDT 10/21/2024 11:26 AM CDT Kalli Cox MD LAB BLOOD ORDERABLES Gail l Result Performing Organization Address [facility] [place] [address] [facility] * Type and screen (10/21/2024 9:36 AM CDT) ABO Rh O Negative Brigitte, indirect Negative [facility] Blood 10/21/2024 9:36 AM CDT 10/21/2024 9:52 AM CDT Narrative [facility] - 10/21/2024 10:57 AM CDT Has the patient had Daratumumab or Isatuximab in the past 6 months?->Unknown Jacquelyn Cintron C T TECH LAB BLOOD BANK TEST ORDERA BLES Final Result Performing Organization Address City/[facility]/ZIP Co de Phone Number [facility] [place] [address] * Prepare RBC: 1 Units (10/21/2024 9:27 AM CDT) Product code [id number] Unit Number [id number] K [facility] Product Blood Type ONEG [facility] Dispense Status PRESUMED TRANSFUSED [facility] Blood 10/21/2024 9:27 AM CDT 10/21/2024 9:28 AM CDT Narrative [facility] - 10/22/2024 12:55 AM CDT Are special requirements needed? (All products are leukoreduced and CMV- safe)- >No Date required:-[id number] LRRBC # of [id number] Reasons:-Hgb <7 g/dL} us Jacquelyn Cintron C T TECH BLOOD BANK PRODUCT ORDERAB LES Final Result [facility] [place] [address] * eGFR (10/21/2024 6:50 AM CDT) eGFR [...] BLOOD ORDERABLES Final Result Performing Organization Address City/[facility]/ZIP Co de Phone Number [facility] [place] [address] * (ABNORMAL) Differential, auto (10/21/2024 6:50 AM CDT) Neutrophil abs 1.77 1.50 - 6.50 K/cumm Imm gran abs 0.01 0.00 - 0.10 K/cumm [facility] Lymphocyte abs 0.54(L) 0.80 - 3.30 K/cumm [facility] Monocyte abs 0.18(L) 0.20 - 0.80 K/cumm [facility] Eosinophil abs 0.02 0.00 - 0.50 K/cumm C[facility] Basophil abs 0.01 0.00 - 0.10 K[facility]cumm [facility] Neutrophil pct 70.0 % [facility] Comment: Interpretive Data Percent cell count reference ranges are not reported, since discordance with absolute values may lead to misinterpretation of CBC data. Current Interpretive Data was last revised on 2017. Imm gran pct 0.4 % [facility] Comment: Interpretive Data Percent cell count reference ranges are not reported, since discordance with absolute values may lead to misinterpretation of CBC data. Current Interpretive Data was last revised on 2017. Lymphocyte pct 21.3 % [facility] Comment: Interpretive Data Percent cell count reference ranges are not reported, since discordance with absolute values may lead to misinterpretation of CBC data. Current Interpretive Data was last revised on 2017. Monocyte pct 7.1 % C[facility]ER [facility] Comment: Interpretive Data Percent cell count reference ranges are not reported, since discordance with absolute values may lead to misinterpretation of CBC data. Current Interpretive Data was last revised on 2017. Eosinophil pct 0.8 % C[facility]ER [facility] Comment: Interpretive Data Percent cell count reference ranges are not reported, since discordance with absolute values may lead to misinterpretation of CBC data. Current Interpretive Data was last revised on 2017. Basophil pct 0.4 % C[facility]ER [facility] Comment: Interpretive Data Percent cell count reference ranges are not reported, since discordance with absolute values may lead to misinterpretation of CBC data. Current Interpretive Data was last revised on 2017. Blood 10/21/2024 6:50 AM CDT 10/21/2024 7:00 AM CDT Theresa Schumacher NP LAB BLOOD ORDERABLES Final Result Performing Organization Address City/[facility]/ZIP Co de Phone Number [facility] Department [place] [address] * (ABNORMAL) CBC with auto differential (10/21/2024 6:50 AM CDT) Pathologist [facility] WBC 2.53(L) 3.80 - 9.90 K/cumm Hgb 6.7(L) 11.9 - 15.5 g/dL [facility] Hct 20.7(L) 35.6 - 45.5 % [facility] Plt 110(L) 150 - 400 K/cumm [facility] MPV 10.5 9.1 - 12.3 fL [facility] RBC 2.31(L) 3.90 - 5.20 M/cumm [facility] MCV 89.6 81.3 - 96.4 fL [facility] MCH 29.0 27.1 - 33.3 pg [facility] MCHC 32.4 32.3 - 35.7 g/dL [facility] RDW CV 14.9 11.1 - 14.9 % [facility] RDW SD 48.6(H) 35.7 - 48.1 fL [facility] NRBC abs 0.00 0.00 - 0.01 K/cumm [facility] Blood 10/21/2024 6:50 AM CDT 10/21/2024 7:00 AM CDT Theresa Schumacher NP LAB BLOOD ORDERABLES Final Result [facility] Department [place] [address] * (ABNORMAL) Comprehensive metabolic panel (10/21/2024 6:50 AM CDT) Pathologist [facility] Sodium 137 135 - 145 mmol/L Potassium, pl 3.4 3.3 - 4.9 mmol/L [facility] Chloride 104 97 - 110 mmol/L [facility] CO2 28 22 - 32 mmol/L [facility] Anion gap 5 2 - 15 mmol/L [facility] BUN 11 6 - 25 mg/dL [facility] Creatinine 0.65 0.60 - 1.10 mg/dL [facility] Glucose 108 70 - 199 mg/dL [facility] Comment: Interpretive Data Fasting glucose >/= [...] Calcium 8.2(L) 8.5 - 10.3 mg/dL [facility] Bilirubin, total 0.5 0.1 - 1.2 mg/dL [facility] Protein, pl 5.0(L) 6.5 - 8.5 g/dL [facility] Albumin 2.6(L) 3.5 - 5.0 g/dL [facility] Alk phos 182(H) 40 - 130 Units/L [facility] ALT 13 7 - 45 Units/L [facility] AST 16 10 - 45 Units/L [facility] Blood 10/21/2024 6:50 AM CDT 10/21/2024 7:00 AM CDT us Theresa Schumacher NP LAB BLOOD ORDERABLES Final Result [facility] [place] [address] * Urinalysis reflex to microscopic and culture Urine, clean voided (10/21/2024 12:16 AM CDT) Color, ur Straw Yellow Clarity, ur Clear Clear [facility] Specific gravity, ur 1.013 1.003 - 1.030 [facility] pH, urine 6.0 [facility] Comment: Interpretive Data U rine pH is affected by diet, medications, systemic acid-base disturbances, and renal tubular function. pH may affect urinary stone formation. For example, urine pH below 6.0 may help reduce the tendency for calcium phosphate stones and pH greater than 6.0 may reduce the tendency for uric acid stone formation. Source: [facility] Current Interpretive Data was last revised on 2017 Protein, ur ql Trace Negative [facility] Glucose, ur ql Negative Negative [facility] Ketones, ur Negative Negative [facility] Bilirubin, ur Negative Negative [facility] Blood, ur Negative Negative [facility] Urobilinogen, ur <2.0 <2.0 mg/dL [facility] Nitrite, ur Negative Negative [facility] Leukocyte esterase, ur Negative Negative [facility] UA reflex comment Reflex conditions for microscopic UA and culture not met. [facility] Urine, clean voided 10/21/2024 12:16 AM CDT 10/21/2024 12:34 AM CDT Theresa Schumacher NP LAB MICROBIOLOGY - G ENERAL ORDERABLES Final Result [facility] [place] [address] * (ABNORMAL) Protime-INR (10/21/2024 12:16 AM CDT) PT 17.4(H) 9.7 - 13.0 sec INR 1.60(H) 0.90 - 1.20 [facility] Comment: Interpretive data Oral anticoagulant therapeutic [...] NP LAB BLOOD ORDERABLES Final Result ENRIQUE [facility] [place] [address] * X-ray chest 2 views (10/21/2024 12:07 [...] [facility] [place] [address] * eGFR (10/20/2024 10:38 PM CDT) eGFR [...] Schumacher NP LAB BLOOD ORDERABLES Final Result [facility] [place] [address] * (ABNORMAL) Differential, auto (10/20/2024 10:38 PM CDT) Neutrophil abs 2.30 1.50 - 6.50 K/cumm Imm gran abs 0.02 0.00 - 0.10 K/cumm [facility] Lymphocyte abs 0.51(L) 0.80 - 3.30 K/cumm [facility] Monocyte abs 0.18(L) 0.20 - 0.80 K/cumm [facility] Eosinophil abs 0.01 0.00 - 0.50 K/cumm [facility] Basophil abs 0.00 0.00 - 0.10 K/cumm [facility] Neutrophil pct 76.1 % [facility] Comment: Interpretive Data Percent cell count reference ranges are not reported, since discordance with absolute values may lead to misinterpretation of CBC data. Current Interpretive Data was last revised on 2017. Imm gran pct 0.7 % [facility] Comment: Interpretive Data Percent cell count reference ranges are not reported, since discordance with absolute values may lead to misinterpretation of CBC data. Current Interpretive Data was last revised on 2017. Lymphocyte pct 16.9 % [facility] Comment: Interpretive Data Percent cell count reference ranges are not reported, since discordance with absolute values may lead to misinterpretation of CBC data. Current Interpretive Data was last revised on 2017. Monocyte pct 6.0 % [facility] Comment: Interpretive Data Percent cell count reference ranges are not reported, since discordance with absolute values may lead to misinterpretation of CBC data. Current Interpretive Data was last revised on 2017. Eosinophil pct 0.3 % [facility] Comment: Interpretive Data Percent cell count reference ranges are not reported, since discordance with absolute values may lead to misinterpretation of CBC data. Current Interpretive Data was last revised on 2017. Basophil pct 0.0 % [facility] Comment: Interpretive Data Percent cell count reference ranges are not reported, since discordance with absolute values may lead to misinterpretation of CBC data. Current Interpretive Data was last revised on 2017. Blood 10/20/2024 10:3 8 PM CDT 10/20/2024 11:22 PM CDT Theresa Schumacher C T TECH LAB BLOOD ORDERABLES Final Result [facility] [place] [address] * Respiratory pathogen panel Nasopharyngeal (10/20/2024 10:38 PM CDT) Pathologist [facility] Influenza A RNA Not Detected Not Detected Influenza B RNA Not Detected Not Detected [facility] RSV RNA Not Detected Not Detected [facility] COVID-19 RNA Not Detected Not Detected [facility] Coronavirus 229E RNA Not Detected Not Detected [facility] Coronavirus HKU1 RNA Not Detected Not Detected [facility] Coronavirus NL63 RNA Not Detected Not Detected [facility] Coronavirus OC43 RNA Not Detected Not Detected [facility] Adenovirus DNA Not Detected Not Detected [facility] Metapneumovirus RNA Not Detected Not Detected [facility] Rhinovirus/Enterov irus RNA Not Detected Not Detected [facility] Parainfluenza 1 RNA Not Detected Not Detected [facility] Parainfluenza 2 RNA Not Detected Not Detected [facility] Parainfluenza 3 RNA Not Detected Not Detected [facility] Parainfluenza 4 RNA Not Detected Not Detected [facility] B. pertussis DNA Not Detected Not Detected [facility] B. parapertussis DNA Not Detected Not Detected [facility] C. pneumoniae DNA Not Detected Not Detected [facility] M. pneumoniae DNA Not Detected Not Detected [facility] Nasopharyngeal 10/20/2024 10 :38 PM CDT 10/20/2024 11:47 PM CDT Narrative [facility] - 10/21/2024 12:44 AM CDT Is the Patient experiencing symptoms consistent with COVID?->Yes Surveillance testing for transplant patient?->No Interpretive Data The Twenty[employer] FilmArray Respiratory Panel (RP2.1) assay is a [...] assay has FDA clearance for testing of C T TECH swabs. The performance of additional specimen types has been assessed by the performing laboratory. The performance characteristics of this assay have been determined by [facility]. Current interpretive data was last revised on 22. Theresa Schumacher C T TECH LAB MICROBIOLOGY - G ENERAL ORDERABLES Final Result [facility] [place] [address] * (ABNORMAL) CBC with auto differential (10/20/2024 10:38 PM CDT) WBC 3.02(L) 3.80 - 9.90 K/cumm Hgb 7.1(L) 11.9 - 15.5 g/dL [facility] Hct 21.9(L) 35.6 - 45.5 % [facility] Plt 124(L) 150 - 400 K/cumm [facility] MPV 10.5 9.1 - 12.3 fL [facility] RBC 2.46(L) 3.90 - 5.20 M/cumm [facility] MCV 89.0 81.3 - 96.4 fL [facility] MCH 28.9 27.1 - 33.3 pg [facility] MCHC 32.4 32.3 - 35.7 g/dL [facility] RDW CV 14.7 11.1 - 14.9 % [facility] RDW SD 47.4 35.7 - 48.1 fL [facility] NRBC abs 0.00 0.00 - 0.01 K/cumm [facility] Blood 10/20/2024 10:3 8 PM CDT 10/20/2024 11:22 PM CDT Theresa Schumacher NP LAB BLOOD ORDERABLES Final Result [facility] Department [place] [address] * Blood culture Blood (10/20/2024 10:38 PM CDT) Report Final Report: No growth Blood 10/20/2024 10:3 8 PM CDT 10/21/2024 12:22 AM CDT Narrative [facility] - 10/25/2024 7:01 AM CDT From [...] performance characteristics have been verified by the [facility] Microbiology Laboratory. For questions about this culture, contact the Microbiology Laboratory at [phone]. Interpretive data was last revised on 24. Theresa Schumacher NP LAB MICROBIOLOGY - G ENERAL ORDERABLES Final Result ENRIQUE BETANCOURT [facility] Department [place] [address] * Blood culture Blood (10/20/2024 10:38 PM CDT) Report Final Report: No growth Blood 10/20/2024 10:3 8 PM CDT 10/21/2024 12:12 AM CDT Narrative ENRIQUE [facility] - 10/25/2024 7:01 AM CDT 1. Blood [...] performance characteristics have been verified by the [facility] Microbiology Laboratory. For questions about this culture, contact the Microbiology Laboratory at [phone]. Interpretive data was last revised on 24. Theresa Schumacher NP LAB MICROBIOLOGY - G ENERAL ORDERABLES Final Result [facility] Department [place] [address] * (ABNORMAL) Comprehensive metabolic panel (10/20/2024 10:38 PM CDT) Sodium 138 135 - 145 mmol/L Potassium, pl 3.6 3.3 - 4.9 mmol/L [facility] Chloride 104 97 - 110 mmol/L [facility] CO2 26 22 - 32 mmol/L [facility] Anion gap 8 2 - 15 mmol/L [facility] BUN 13 6 - 25 mg/dL [facility] Creatinine 0.74 0.60 - 1.10 mg/dL [facility] Glucose 100 70 - 199 mg/dL [facility] Comment: Interpretive Data Fasting glucose >/= [...] Calcium 8.7 8.5 - 10.3 mg/dL [facility] Bilirubin, total 0.7 0.1 - 1.2 mg/dL [facility] Protein, pl 5.2(L) 6.5 - 8.5 g/dL [facility] Albumin 2.8(L) 3.5 - 5.0 g/dL [facility] Alk phos 195(H) 40 - 130 Units/L CERNER [facility] ALT 13 7 - 45 Units/L [facility] AST 18 10 - 45 Units/L [facility] Blood 10/20/2024 10:3 8 PM CDT 10/20/2024 11:23 PM CDT Theresa Schumacher NP LAB BLOOD ORDERABLES Final Result Performing Organization Address City/[facility]/ZIP Co de Phone Number [facility] Department [place] [address] * eGFR (10/17/2024 10:06 AM CDT) eGFR [...] last reviewed 2021. Testing performed by: [facility], [address] [place] [address] Blood 10/17/2024 10:0 6 AM CDT 10/17/2024 10:26 AM CDT us Kalli Cox MD LAB BLOOD ORDERABLES Gail l Result Performing Organization Address City/[facility]/ZIP Co de Phone Number [facility] [address]. [place] [address] * Differential, auto (10/17/2024 10:06 AM CDT) Neutrophil abs 3.45 1.50 - 6.50 K/cumm Comment:Testing performed by : [facility], [address] [place] [address] Imm gran abs 0.02 0.00 - 0.10 K/cumm CERNER [facility] Comment:Testing performed by : [place] [address], [address] [place] [address] Lymphocyte abs 1.10 0.80 - 3.30 K/cumm [facility]ER [facility] Comment:Testing performed by : [place] [address], [address] [place] [address] Monocyte abs 0.28 0.20 - 0.80 K/cumm CERNER [facility] Comment:Testing performed by : [place] [address], [address] [place] [address] Eosinophil abs 0.05 0.00 - 0.50 K/cumm CERNER [facility] Comment:Testing performed by : [place] [address], [address] [place] [address] Basophil abs 0.01 0.00 - 0.10 K/cumm CERNER [facility] Comment:Testing performed by : [place] [address], [address] [place] [address] Neutrophil pct 70.3 % [facility]ER [facility] Comment: Interpretive Data Percent cell count reference ranges are not reported, since discordance with absolute values may lead to misinterpretation of CBC data. Current Interpretive Data was last revised on 2017. Testing performed by: [facility], [address] [place] [address] Imm gran pct 0.4 % CERNER [facility] Comment: Interpretive Data Percent cell count reference ranges are not reported, since discordance with absolute values may lead to misinterpretation of CBC data. Current Interpretive Data was last revised on 2017. Testing performed by: [place] [address], [address] [place] [address] Lymphocyte pct 22.4 % CERNER [facility] Comment: Interpretive Data Percent cell count reference ranges are not reported, since discordance with absolute values may lead to misinterpretation of CBC data. Current Interpretive Data was last revised on 2017. Testing performed by: [facility], [facility], [address] [place] [address] Monocyte pct 5.7 % CERMARCELO BETANCOURTWCH Comment: Interpretive Data Percent cell count reference ranges are not reported, since discordance with absolute values may lead to misinterpretation of CBC data. Current Interpretive Data was last revised on 2017. Testing performed by: [facility], [facility], [address] [place] [address] Eosinophil pct 1.0 % CERMARCELO BETANCOURTWSTEVE Comment: Interpretive Data Percent cell count reference ranges are not reported, since discordance with absolute values may lead to misinterpretation of CBC data. Current Interpretive Data was last revised on 2017. Testing performed by: [facility], [facility], [address] [place] [address] Basophil pct 0.2 % CERMARCELO BETANCOURTWSTEVE Comment: Interpretive Data Percent cell count reference ranges are not reported, since discordance with absolute values may lead to misinterpretation of CBC data. Current Interpretive Data was last revised on 2017. Testing performed by: [facility], [facility], [address] [place] [address] Blood 10/17/2024 10:0 6 AM CDT 10/17/2024 10:09 AM CDT us Moh'Maurisio Cox MD LAB BLOOD ORDERABLES Gail garcia Result ENRIQUE [facility] [address] [facility]. Department [place] [address] * (ABNORMAL) CBC with auto differential (10/17/2024 10:06 AM CDT) WBC 4.91 3.80 - 9.90 K/cumm Comment:Testing performed by : [facility], [facility], [address] [place] [address] Hgb 9.0(L) 11.9 - 15.5 g/dL CERNER [facility] Comment:Testing performed by : [place] [address], [address], [place] [address] Hct 28.8(L) 35.6 - 45.5 % CERNER [facility] Comment:Testing performed by : [place] [address], [address] [place] [address] Plt 202 150 - 400 K/cumm CERNER [facility] Comment:Testing performed by : [place] [address], [address] [place] [address] MPV 9.2 9.1 - 12.3 fL CERNER [facility] Comment:Testing performed by : [place] [address], [address], [place] [address] RBC 3.15(L) 3.90 - 5.20 M/cumm CERNER [facility] Comment:Testing performed by : [place] [address], [address], [place] [address] MCV 91.4 81.3 - 96.4 fL CERNER [facility] Comment:Testing performed by : [place] [address], [address], [place] [address] MCH 28.6 27.1 - 33.3 pg CERNER [facility] Comment:Testing performed by : [place] [address], [address] [place] [address] MCHC 31.3(L) 32.3 - 35.7 g/dL CERNER [facility] Comment:Testing performed by : [facility], [address] [place] [address] RDW CV 15.0(H) 11.1 - 14.9 % CERNER [facility] Comment:Testing performed by : [facility], [facility] [address], [address] [place] [address] RDW SD 50.7(H) 35.7 - 48.1 fL ENRIQUE TORRES Comment:Testing performed by : [facility], [facility] [address], [address] [place] [address] ANC Prelim 3.45 1.50 - 6.50 K/cumm ENRIQUE TORRES Comment: Interpretive Data The rapid ANC is a preliminary automated count and may vary from the final ANC (Neut Abs) reported in the WBC differential that follows. Current interpretive data was last revised 2024. Testing performed by: [facility], [facility], [address] [place] [address] Blood 10/17/2024 10:0 6 AM CDT 10/17/2024 10:09 AM CDT [facility]Maurisio Cox MD LAB BLOOD ORDERABLES Gail l Result [facility] [address]. Department [place] [address] * (ABNORMAL) Comprehensive metabolic panel (10/17/2024 10:06 AM CDT) Sodium 139 135 - 145 mmol/L Comment:Testing performed by : [facility], [address] [place] [address] Potassium, pl 4.0 3.3 - 4.9 mmol/L ENRIQUE TORRES Comment:Testing performed by : [facility], [address] [place] [address] Chloride 104 97 - 110 mmol/L ENRIQUE TORRES Comment:Testing performed by : [facility], [address] [place] [address] CO2 28 22 - 32 mmol/L ENRIQUE TORRES Comment:Testing performed by : [facility], [address] [place] [address] Anion gap 7 2 - 15 mmol/L CERNER [facility] Comment:Testing performed by : [facility], [address], [place] [address] BUN 15 6 - 25 mg/dL CERNER [facility] Comment:Testing performed by : [facility], [address], [place] [address] Creatinine 0.70 0.60 - 1.10 mg/dL CERNER [facility] Comment:Testing performed by : [facility], [address], [place] [address] Glucose 90 70 - 199 mg/dL CERNER [...] last revised 2022. Testing performed by: [facility], [address], [place] [address] Calcium 8.8 8.5 - 10.3 mg/dL CERNER [facility] Comment:Testing performed by : [facility], [address], [place] [address] Bilirubin, total 0.6 0.1 - 1.2 mg/dL CERNER [facility] Comment:Testing performed by : [facility], [address], [place] [address] Protein, pl 5.8(L) 6.5 - 8.5 g/dL CERNER [facility] Comment:Testing performed by : [facility], [address], [place] [address] Albumin 3.3(L) 3.5 - 5.0 g/dL CERNER [facility] Comment:Testing performed by : [facility], [address], [place] [address] Alk phos 325(H) 40 - 130 Units/L CERNER [facility] Comment:Testing performed by : [facility], [address], [place] [address] ALT 29 7 - 45 Units/L ENRIQUE TORRES Comment:Testing performed by : [facility], [address], [place] [address] AST 27 10 - 45 Units/L ENRIQUE TORRES Comment:Testing performed by : [facility], [address], [place] [address] Blood 10/17/2024 10:0 6 AM CDT 10/17/2024 10:26 AM CDT [facility]Maurisio Cox MD LAB BLOOD ORDERABLES Gail l Result [facility] [address]. Department of Laboratories [place] [phone] * eGFR (10/14/2024 8:30 AM CDT) eGFR [...] last reviewed 2021. Testing performed by: [facility], [address], [place] [address] Blood 10/14/2024 8:30 AM CDT 10/14/2024 8:54 AM CDT Kalli Cox MD LAB BLOOD ORDERABLES Gail garcia Result [facility] [address] [facility]. Department [place] [address] * Differential, auto (10/14/2024 8:30 AM CDT) Neutrophil abs 3.00 1.50 - 6.50 K/cumm Comment:Testing performed by : [facility], [facility], [address] [place] [address] Imm gran abs 0.00 0.00 - 0.10 K/cumm CERMARCELO BJWCH Comment:Testing performed by : [facility], [address] [place] [address] Lymphocyte abs 1.24 0.80 - 3.30 K/cumm CERMARCELO BJWCH Comment:Testing performed by : [facility], [address] [place] [address] Monocyte abs 0.80 0.20 - 0.80 K/cumm CERMARCELO BJWCH Comment:Testing performed by : [facility], [address] [place] [address] Eosinophil abs 0.12 0.00 - 0.50 K/cumm CERMARCELO BJWCH Comment:Testing performed by : [facility], [address] [place] [address] Basophil abs 0.03 0.00 - 0.10 K/cumm CERMARCELO BJWCH Comment:Testing performed by : [facility], [address] [place] [address] Neutrophil pct 57.8 % CERMARCELO [facility] Comment: Interpretive Data Percent cell count reference ranges are not reported, since discordance with absolute values may lead to misinterpretation of CBC data. Current Interpretive Data was last revised on 2017. Testing performed by: [facility], [facility], [address] [place] [address] Imm gran pct 0.0 % CERNER [facility] Comment: Interpretive Data Percent cell count reference ranges are not reported, since discordance with absolute values may lead to misinterpretation of CBC data. Current Interpretive Data was last revised on 2017. Testing performed by: [facility], [facility], [address] [place] [address] Lymphocyte pct 23.9 % CERNER [facility] Comment: Interpretive Data Percent cell count reference ranges are not reported, since discordance with absolute values may lead to misinterpretation of CBC data. Current Interpretive Data was last revised on 2017. Testing performed by: [facility], [facility], [address] [place] [address] Monocyte pct 15.4 % CERNER [facility] Comment: Interpretive Data Percent cell count reference ranges are not reported, since discordance with absolute values may lead to misinterpretation of CBC data. Current Interpretive Data was last revised on 2017. Testing performed by: [facility], [facility], [address] [place] [address] Eosinophil pct 2.3 % CERNER [facility] Comment: Interpretive Data Percent cell count reference ranges are not reported, since discordance with absolute values may lead to misinterpretation of CBC data. Current Interpretive Data was last revised on 2017. Testing performed by: [facility], [facility], [address] [place] [address] Basophil pct 0.6 % CERNER [facility] Comment: Interpretive Data Percent cell count reference ranges are not reported, since discordance with absolute values may lead to misinterpretation of CBC data. Current Interpretive Data was last revised on 2017. Testing performed by: [facility], [facility], [address] [place] [address] Blood 10/14/2024 8:30 AM CDT 10/14/2024 8:33 AM CDT us Ibeth'Maurisio Cox MD LAB BLOOD ORDERABLES Gail garcia Result EN[facility]QUE [facility] [address] [facility] of Laboratories [place], [place] [id number] * (ABNORMAL) CBC with auto differential (10/14/2024 8:30 AM CDT) WBC 5.19 3.80 - 9.90 K/cumm Comment:Testing performed by : [place] [address], [address] [place] [address] Hgb 8.8(L) 11.9 - 15.5 g/dL ENRIQUE BETANCOURTWCH Comment:Testing performed by : [place] [address], [address] [place] [address] Hct 27.5(L) 35.6 - 45.5 % ENRIQUE BETANCOURTW Comment:Testing performed by : [place] [address], [address] [place] [address] Plt 209 150 - 400 K/cumm ENRIQUE BETANCOURTW Comment:Testing performed by : [place] [address], [address] [place] [address] MPV 9.7 9.1 - 12.3 fL ENRIQUE BETANCOURTW Comment:Testing performed by : [address] [place] [address] RBC 3.04(L) 3.90 - 5.20 M/cumm ENRIQUE BETANCOURTWCH Comment:Testing performed by : [place] [address], [address] [place] [address] MCV 90.5 81.3 - 96.4 fL ENRIQUE BETANCOURTWCH Comment:Testing performed by : [place] [address], [address] [place] [address] MCH 28.9 27.1 - 33.3 pg CERMARCELO BETANCOURTWCH Comment:Testing performed by : [place] [address], [address] [place] [address] MCHC 32.0(L) 32.3 - 35.7 g/dL ENRIQUE TORRES Comment:Testing performed by : [facility], [facility], [address] [place] [address] RDW CV 14.4 11.1 - 14.9 % ENRIQUE TORRES Comment:Testing performed by : [facility], [facility], [address] [place] [address] RDW SD 47.6 35.7 - 48.1 fL ENRIQUE TORRES Comment:Testing performed by : [facility], [facility], [address] [place] [address] ANC Prelim 3.00 1.50 - 6.50 K/cumm ENRIQUE TORRES Comment: Interpretive Data The rapid ANC is a preliminary automated count and may vary from the final ANC (Neut Abs) reported in the WBC differential that follows. Current interpretive data was last revised 2024. Testing performed by: [facility], [facility], [address] [place] [address] Blood 10/14/2024 8:30 AM CDT 10/14/2024 8:33 AM CDT [facility]Maurisio Cox MD LAB BLOOD ORDERABLES Gail l Result ENRIQUE BETANCOURTWCH [address] [facility]. [place] [address] * (ABNORMAL) Cancer antigen 19-9 (10/14/2024 8:30 AM CDT) CA 19-9 ag 46.8(H) 0.0 - 35.0 units/mL Comment: Interpretive Data The Sree CA 19-9 assay procedure was used. Results from different manufacturers or methods may not be comparable. Serial testing should be performed using the same method. Testing performed by: [facility], [address] [place] [address]., [address] Blood 10/14/2024 8:30 AM CDT 10/14/2024 10:46 AM CDT Kalli Cox MD LAB BLOOD ORDERABLES Gail l Result ENRIQUE BETANCOURTCH [address] [facility]. [facility] [place] [address] * TSH (10/14/2024 8:30 AM CDT) Thyroid Stimulating Hormone 0.52 0.30 - 4.20 mcIUnit/mL Comment:Testing performed by : [facility], [address] [place] [address] Blood 10/14/2024 8:30 AM CDT 10/14/2024 8:54 AM CDT Kalli Cox MD LAB BLOOD ORDERABLES Gail l Result Performing Organization Address City/[facility]/ZIP Co de Phone Number ENRIQUE W[facility] [address] [facility]. [facility] [place] [address] * (ABNORMAL) T4, free (10/14/2024 8:30 AM CDT) Free T4 1.95(H) 0.90 - 1.70 ng/dL Comment:Testing performed by : [facility], [address] [place] [address] Blood 10/14/2024 8:30 AM CDT 10/14/2024 8:54 AM CDT Kalli Cox MD LAB BLOOD ORDERABLES Gail l Result ENRIQUE [facility] [address] [facility]. [facility] [place] [address] * (ABNORMAL) Comprehensive metabolic panel (10/14/2024 8:30 AM CDT) Sodium 138 135 - 145 mmol/L Comment:Testing performed by : [facility], [address], [place] [address] Potassium, pl 3.7 3.3 - 4.9 mmol/L CERNER [facility] Comment:Testing performed by : [facility], [address], [place] [address] Chloride 103 97 - 110 mmol/L CERNER [facility] Comment:Testing performed by : [facility], [address], [place] [address] CO2 23 22 - 32 mmol/L CERNER [facility] Comment:Testing performed by : [facility], [address], [place] [address] Anion gap 12 2 - 15 mmol/L CERNER [facility] Comment:Testing performed by : [facility], [address], [place] [address] BUN 14 6 - 25 mg/dL CERNER [facility] Comment:Testing performed by : [facility], [address], [place] [address] Creatinine 0.74 0.60 - 1.10 mg/dL CERNER [facility]CH Comment:Testing performed by : [facility], [address], [place] [address] Glucose 94 70 - 199 mg/dL CERNER [...] last revised 2022. Testing performed by: [facility], [address], [place] [address] Calcium 9.1 8.5 - 10.3 mg/dL CERNER [facility] Comment:Testing performed by : [facility], [address], [place] [address] Bilirubin, total 0.6 0.1 - 1.2 mg/dL CERNER [facility] Comment:Testing performed by : [facility], [address], [place] [address] Protein, pl 5.7(L) 6.5 - 8.5 g/dL CERNER [facility] Comment:Testing performed by : [facility], [address], [place] [address] Albumin 3.4(L) 3.5 - 5.0 g/dL CERNER [facility] Comment:Testing performed by : [facility], [address], [place] [address] Alk phos 387(H) 40 - 130 Units/L CERNER [facility] Comment:Testing performed by : [facility], [address], [place] [address] ALT 37 7 - 45 Units/L CERNER [facility] Comment:Testing performed by : [facility], [address], [place] [address] AST 22 10 - 45 Units/L CERNER [facility] Comment:Testing performed by : [facility], [address], [place] [address] Blood 10/14/2024 8:30 AM CDT 10/14/2024 8:54 AM CDT Ibeth'Maurisio Cox MD LAB BLOOD ORDERABLES Gail l Result [facility] [address] Department [place] [address] * IR Port Placement Chest > 5 Years (10/10/2024 10:16 AM CDT) Anatomical Region Laterality Modality Chest N/A X-Ray Angiograph y 10/10/2024 10:3 1 AM CDT Impressions 10/10/2024 10:31 AM CDT Successful chest wall port placement. PLAN: The catheter is ready for immediate use. Please note that a power injectable port was placed. When treatment is completed, removal can be scheduled by calling [facility] - [phone] [facility] - [phone] Electronically signed by: Feliciano Martinez PA-C Narrative [...] was obtained. Prior to beginning the procedure, [place] Protocol was used to confirm the patient's [...] was obtained. Prior to beginning the procedure, [place] Protocol was used to confirm the patient's [...] completed, removal can be scheduled by calling [facility] - [phone] [facility] - [phone] Electronically signed by: Feliciano Martinez PA-C [facility]Maurisio Cox MD IMG IR PROCEDURES Final R [...] obtained. The study was interpreted on the [employer] workstation. The mean liver SUV (reported for quality officer purposes) is 1.7. The total scanned area [...] The mean liver SUV (reported for quality officer purposes) is 1.7. The total scanned area [...] it. Electronically signed by: Johan Krishna MD [facility]D Genevieve Cox MD IMG PET PROCEDURES Final [...] last reviewed 2021. Testing performed by: [facility], [address] [place] [address] Blood 10/07/2024 4:00 PM CDT 10/07/2024 4:36 PM CDT Moh'Maurisio Cox MD LAB BLOOD ORDERABLES Gail l Result [facility] [address] [facility]. Department [place] [address] * (ABNORMAL) Differential, auto (10/07/2024 4:00 PM CDT) Neutrophil abs 4.52 1.50 - 6.50 K/cumm Comment:Testing performed by : [facility], [facility], [address] [place] [address] Imm gran abs 0.01 0.00 - 0.10 K/cumm ENRIQUE BETANCOURTWSTEVE Comment:Testing performed by : [facility], [facility], [address] [place] [address] Lymphocyte abs 0.48(L) 0.80 - 3.30 K/cumm CERNER BJWCH Comment:Testing performed by : [facility], [facility], [address], [place] [address] Monocyte abs 0.37 0.20 - 0.80 K/cumm CERNER BJWCH Comment:Testing performed by : [facility], [facility], [address] [place] [address] Eosinophil abs 0.01 0.00 - 0.50 K/cumm CERNER BJWCH Comment:Testing performed by : [facility], [facility], [address] [place] [address] Basophil abs 0.01 0.00 - 0.10 K/cumm CERNER BJWCH Comment:Testing performed by : [facility], [facility], [address] [place] [address] Neutrophil pct 83.6 % CERNER BJWCH Comment: Interpretive Data Percent cell count reference ranges are not reported, since discordance with absolute values may lead to misinterpretation of CBC data. Current Interpretive Data was last revised on 2017. Testing performed by: [facility], [facility], [address] [place] [address] Imm gran pct 0.2 % CERNER BJWCH Comment: Interpretive Data Percent cell count reference ranges are not reported, since discordance with absolute values may lead to misinterpretation of CBC data. Current Interpretive Data was last revised on 2017. Testing performed by: [facility], [facility], [address] [place] [address] Lymphocyte pct 8.9 % CERNER BJWCH Comment: Interpretive Data Percent cell count reference ranges are not reported, since discordance with absolute values may lead to misinterpretation of CBC data. Current Interpretive Data was last revised on 2017. Testing performed by: [facility], [facility], [address] [place] [address] Monocyte pct 6.9 % CERNER BJWCH Comment: Interpretive Data Percent cell count reference ranges are not reported, since discordance with absolute values may lead to misinterpretation of CBC data. Current Interpretive Data was last revised on 2017. Testing performed by: [facility] 2, [address] [place] [address] Eosinophil pct 0.2 % ENRIQUE TORRES Comment: Interpretive Data Percent cell count reference ranges are not reported, since discordance with absolute values may lead to misinterpretation of CBC data. Current Interpretive Data was last revised on 2017. Testing performed by: [facility] 2, [address] [place] [address] Basophil pct 0.2 % ENRIQUE TORRES Comment: Interpretive Data Percent cell count reference ranges are not reported, since discordance with absolute values may lead to misinterpretation of CBC data. Current Interpretive Data was last revised on 2017. Testing performed by: [facility] 2, [address] [place] [address] Blood 10/07/2024 4:00 PM CDT 10/07/2024 4:01 PM CDT [facility] LAB BLOOD ORDERABLES Gail l Result ENRIQUE BETANCOURTWCH [address] [facility]. Department [place] [address] * (ABNORMAL) CBC with auto differential (10/07/2024 4:00 PM CDT) WBC 5.40 3.80 - 9.90 K/cumm Comment:Testing performed by : [facility] 2, [address] [place] [address] Hgb 9.0(L) 11.9 - 15.5 g/dL ENRIQUE TORRES Comment:Testing performed by : [facility] 2, [address] [place] [address] Hct 28.7(L) 35.6 - 45.5 % CERNER BJWCH Comment:Testing performed by : [facility], [facility], [address] [place] [address] Plt 185 150 - 400 K/cumm CERNER BJWCH Comment:Testing performed by : [facility] 2, [address] [place] [address] MPV 9.1 9.1 - 12.3 fL CERNER BJWCH Comment:Testing performed by : [place] [address], [address], [place] [address] RBC 3.06(L) 3.90 - 5.20 M/cumm CERNER BJWCH Comment:Testing performed by : [place] [address], [address], [place] [address] MCV 93.8 81.3 - 96.4 fL CERMARCELO BJWCH Comment:Testing performed by : [place] [address], [address], [place] [address] MCH 29.4 27.1 - 33.3 pg CERNER BJWCH Comment:Testing performed by : [address], [place] [address] MCHC 31.4(L) 32.3 - 35.7 g/dL CERNER BJWCH Comment:Testing performed by : [place] [address] [place] [address] RDW CV 15.4(H) 11.1 - 14.9 % CERNER BJWCH Comment:Testing performed by : [place] [address], [address], [place] [address] RDW SD 53.6(H) 35.7 - 48.1 fL CERNER BJWCH Comment:Testing performed by : [facility] 2, [address], [place] [address] ANC Prelim 4.52 1.50 - 6.50 K/cumm CERNER BJWCH Comment: Interpretive Data The rapid ANC is a preliminary automated count and may vary from the final ANC (Neut Abs) reported in the WBC differential that follows. Current interpretive data was last revised 2024. Testing performed by: [facility], [facility], [address] [place] [address] Blood 10/07/2024 4:00 PM CDT 10/07/2024 4:01 PM CDT [facility] Cox MD LAB BLOOD ORDERABLES Gail l Result Performing Organization Address [facility] Co de Phone Number [facility] [address] [employer]. [place] [address] * (ABNORMAL) Cancer antigen 19-9 (10/07/2024 4:00 PM CDT) CA 19-9 ag 79.3(H) 0.0 - 35.0 units/mL Comment: Interpretive Data The Sree CA 19-9 assay procedure was used. Results from different manufacturers or methods may not be comparable. Serial testing should be performed using the same method. Testing performed by: [facility], [facility]5 [facility], [place]., [address] Blood 10/07/2024 4:00 PM CDT 10/07/2024 6:08 PM CDT [facility] Cox MD LAB BLOOD ORDERABLES Gail l Result Performing Organization Address [facility] Co de Phone Number [facility] [address] [facility]. [place] [address] * (ABNORMAL) Protime-INR (10/07/2024 4:00 PM CDT) PT 14.2(H) 9.7 - 13.0 sec Comment:Testing performed by : [facility], [address], [place] [address] INR 1.31(H) 0.90 - 1.20 ENRIQUE TORRES Comment: Interpretive data Oral anticoagulant therapeutic ranges: Venous thromboembolism prophylaxis or treatment: 2.0-3.0 CARDIOLOGY Standard range: 2.0-3.0 High-intensity range: 2.5-3.5 Refer to indication-specific guidelines for appropriate target ranges for prosthetic heart valve replacement. Current interpretive data was last revised on 2019. Testing performed by: [facility], [address] [place] [address] Blood 10/07/2024 4:00 PM CDT 10/07/2024 4:36 PM CDT us Moh'Maurisio M Th Kenny BROWN LAB BLOOD ORDERABLES Gail garcia Result [facility] [address]. Department [place] [address] * (ABNORMAL) Comprehensive metabolic panel (10/07/2024 4:00 PM CDT) Sodium 141 135 - 145 mmol/L Comment:Testing performed by : [facility], [address], [place] [address] Potassium, pl 4.2 3.3 - 4.9 mmol/L ENRIQUE TORRES Comment:Testing performed by : [facility], [address] [place] [address] Chloride 105 97 - 110 mmol/L ENRIQUE TORRES Comment:Testing performed by : [facility], [address] [place] [address] CO2 26 22 - 32 mmol/L ENRIQUE BETANCOURTWSTEVE Comment:Testing performed by : [facility], [address], [place] [address] Anion gap 11 2 - 15 mmol/L ENRIQUE TORRES Comment:Testing performed by : [facility], [address], [place] [address] BUN 13 6 - 25 mg/dL ENRIQUE BETANCOURTWSTEVE Comment:Testing performed by : [facility], [address], [place] [address] Creatinine 0.71 0.60 - 1.10 mg/dL CERNER BJWCH Comment:Testing performed by : [facility], [address], [place] [address] Glucose 106 70 - 199 mg/dL CERNER [...] last revised 2022. Testing performed by: [facility], [address], [place] [address] Calcium 9.6 8.5 - 10.3 mg/dL CERNER BJWCH Comment:Testing performed by : [facility], [address], [place] [address] Bilirubin, total 1.8(H) 0.1 - 1.2 mg/dL CERNER BJWCH Comment:Testing performed by : [facility], [address], [place] [address] Protein, pl 6.2(L) 6.5 - 8.5 g/dL CERNER BJWCH Comment:Testing performed by : [facility], [address], [place] [address] Albumin 3.6 3.5 - 5.0 g/dL CERNER BJWCH Comment:Testing performed by : [facility], [address], [place] [address] Alk phos 794(H) 40 - 130 Units/L CERNER BJWCH Comment:Testing performed by : [facility], [address], [place] [address] ALT 107(H) 7 - 45 Units/L CERNER BJWCH Comment:Testing performed by : [facility], [address], [place] [address] AST 240(H) 10 - 45 Units/L ENRIQUE BRADFORDCH Comment:Testing performed by : [facility], [address] [facility], [place] [address] Blood 10/07/2024 4:00 PM CDT 10/07/2024 4:36 PM CDT Kalli Cox MD LAB BLOOD ORDERABLES Gail l Result EN[facility]QUE [facility] [address] [address]. Department [place] [address] * [id number] (10/07/2024 3:52 PM CDT) [facility] MSI-HIGH NOT DETECTED 10/14/2024 7:47 PM CDT [facility] TMB 4.75 mut/Mb 10/14/2024 7:47 PM CDT [facility] HRD Not detected 10/14/2024 7:47 PM CDT [facility] TUMOR FRACTION 0.4% 10/14/2024 7:47 PM CDT [facility] Chip TET2 Q644* (0.5%) 10/14/2024 7:47 PM CDT [facility] Blood specimen (specimen) Venous blood specimen / Unknown 10/07/2024 3:52 PM CDT 10/09/2024 11:07 AM CDT Narrative This result has genomic variants that were not included in this document. Kalli Cox MD LAB GENETIC TESTING Final Result [facility] [address] [place] [address], [facility] [phone] [facility] [address] [place] [address] * POCT lipid panel (09/27/2024 1:34 PM CDT) [facility] Cholesterol, POC 132 <200 MG/DL HDL, POC [...] results best viewed via link to PDF [facility] Suha Monahan [facility] [place] [address] Note to Patients: This report may contain [...] Gender: F : 1950 (Age: 73) Address: [address] [place] [address] Hospital #: [id number] Taken:09/19/2024 Received:09/19/2024 Reported: 09/20/2024 Patient Type: [facility] ED Service: Emergency Location: [facility] ED Physician(s): David Brewer M.D. Leonidas Rubio M.D. Daisy Mercado MD Diagnosis: Pancreas, neck, mass, fine needle biopsy - Rare atypical glands/single cells and focal perineural invasion, compatible with invasive pancreatic adenocarcinoma - Scant tumor cellularity; likely insufficient for further molecular testing [facility]/09/20/2024 14:24 By this signature, I attest that the above diagnosis is based upon my personal examination of the slides(and/or other material indicated in the diagnosis). Arpit Arroyo M.D. Report Electronically Reviewed and Signed Out By Aript Arroyo M.D. 09/20/2024 14:24:18 Microscopic Description and [...] cm in aggregate). Labeled A1. Jar 0. [facility]/09/19/2024 15:19 PA(s): Evelyn Cunningham By this signature, I attest that the above diagnosis is based upon my personal examination of the slides(and/or other material). Addenda/Procedures The performance characteristics of some immunohistochemical stains, fluorescence in-situ hybridization tests and immunophenotyping by flow cytometry cited in this report (if any) were determined by the Surgical Pathology and Flow Cytometry Departments at [facility] as part of an ongoing air quality instrument specialist program and in compliance with federally mandated [...] Surgical Pathology and Flow Cytometry Departments of [facility]. It has not been cleared or approved by the U. S. Food and Drug Administration. IMAGES AND SCANNED DOCUMENTS, IF INCLUDED, ONLY VIEWABLE IN PDF VERSION OF REPORT us David Brewer MD LAB PATHOLOGY ORDERABLES [facility] Result PATHOLOGY [facility] 3rd Floor [place], [place] [phone] * Upper EUS (09/19/2024 12:32 PM CDT) Anatomical Region Laterality Modality Other Narrative Procedure Note David Brewer MD - 09/19/2024 12:32 PM CDT GI ENDOSCOPY [facility] Patient Name: Susannah Camargo Procedure Date: 09/19/2024 12:32 PM Date of : 1950 Admit Type: Outpatient Age: 73 Gender: Female Attending MD: David Brewer M.D. Room: [facility] ENDOSCOPY ROOM 1 Note Status: Finalized Procedure: [...] consent was obtained.The Olympuscurved linear array therapeutic [id number] was introduced through the mouth, and advanced [...] Three passes were madewith the 22 gauge N-1-1 needle using a transgastric approach. A stylet [...] following this procedure please call my officeat [phone] ([phone]) to speak to my nurses. After hours and evenings please call [phone] speak to the GI fellow telephone clerk telegraph office. Please tell themthat Dr. Brewer did your procedure and that your were instructed to have the fellow call me or thephysician covering for me to discuss the management of your condition. If you have an urgent problem, please goto the nearest emergency room and have the ER doctorcall my office during the day or [facility] transfer ([phone]) center after hours and weekends to arrange admission or transfer to our facility. - Call my nurse Arlyn Segovia RN in the GI office at [phone] for your final pathology results in 7 [...] using the same method. Testing performed by: [facility], [facility]5 [facility], [place]., [address] Blood 09/17/2024 10:3 2 AM CDT 09/17/2024 7:30 PM CDT us Ana RODRIGUES LAB BLOOD ORDERABLES Gail garcia Result ENRIQUE BJWCH [address] [facility]. [place] [address] * (ABNORMAL) CEA (09/17/2024 10:32 AM CDT) CEA 5.2(H) <=5.0 ng/mL Comment: Interpretive Data Reference Range: Non-Smokers: < or = 3.0 ng/mL Some Smokers may have elevated levels, usually < 5.0 ng/mL The Sree CEA assay procedure was used. Results from different manufacturers or methods may not be comparable. Serial testing should be performed using the same method. Testing performed by: [facility], [facility] [place]., [address] Blood 09/17/2024 10:3 2 AM CDT 09/17/2024 7:30 PM CDT Ana RODRIGUES LAB BLOOD ORDERABLES Gail garcia Result [facility] B[facility] [address] [facility]. [place] [address] * CT Chest W and [...] Duct (09/06/2024 1:42 PM CDT) Narrative [facility] - 09/06/2024 1:53 PM CDT The images from this study are not interpreted by Radiology. Please refer to the physician's procedure / OR operative note. David Brewer MD IMG FLUOROSCOPY PROCEDURES Final Result [facility] * Surgical pathology (09/06/2024 1:25 PM CDT) Lymph node, needle biopsy 09/06/2024 1:25 PM CDT 09/10/2024 11:26 AM CDT Narrative 09/11/2024 3:14 PM CDT [address] [address] Tele: Roxana Gordon MD - Terrazzo Polisher Helper Note to Patients: This report may contain [...] PATHOLOGY REPORT Patient Name: SUSANNAH CAMARGO Address: [address] [place] [address] Gender: F : 1950 (Age: 73) Service: Gastro Location: [facility], Hospital #: [id number] Patient Type: [facility] SAME DAY SURGERY Taken: 09/06/2024 Received 09/10/2024 Reported: 09/11/2024 Physician(s): Puma Wagner MD Jason E. Barnett, M.D. DIAGNOSIS: Pancreas, head, fine needle biopsies: - Focal atypical glands (see description) [facility]/09/11/2024 15:14 Examining Pathologist: Alek [...] filtered and submitted entirely in cassette A1. [facility] EMERGENCY ROOM,[facility] MICROSCOPIC DESCRIPTION: Microscopic examination shows multiple fragments of pancreatic parenchyma. There are focal slightly irregular glands with minimal nuclear atypia. An immunostain for p53 shows wild type staining in these glands. There is no definitive malignancy identified. Clinical correlation and follow-up is needed. Clerical Data Follows A; [address], [address], [address] <CR>, [address] REPORT IMAGES AND/OR SCANNED DOCUMENTS ONLY VIEWABLE IN PDF FORMAT The immunohistochemical test(s) cited in this report, if any, was developed and its performance characteristics determined by [facility] Pathology Department. It has not been cleared or approved by the U.S. Food and Drug Administration. The FDA has determined that such clearance or approval is not necessary. This test is used for clinical purposes. It should not be regarded as investigational or for research. [facility] Laboratory is certified under the [...] part or completely in the following laboratories: [facility], [facility], [address] [place] [address]. us David Brewer MD LAB PATHOLOGY ORDERABLES Fi nal Result * ERCP (09/06/2024 1:03 PM CDT) Anatomical Region Laterality Modality Other Narrative Procedure Note David Brewer MD - 09/06/2024 1:03 PM CDT ENDOSCOPY LAB Patient Name: Susannah Camargo Procedure Date: 09/06/2024 1:03 PM Admit Type: Outpatient Room: [facility] Date of : 1950 Instrument [...] The patienttolerated the procedure well. Findings: The electrification adviser film was normal. The esophagus was successfully [...] following this procedure please call my officeat [phone] ([phone]) to speak to my nurses. After hours and evenings please call [phone] speak to the GI fellow telephone clerk telegraph office. Please tell themthat Dr. Brewer did your procedure and that your were instructed to have the fellow call me or thephysician covering for me to discuss the management of your condition. If you have an urgent problem, please goto the nearest emergency room and have the ER doctorcall my office during the day or [facility] transfer ([phone]) center after hours and weekends to arrange [...] 09/06/2024 1:02 PM Admit Type: Outpatient Room: [facility] Date of : 1950 Instrument [...] following this procedure please call my officeat [phone] ([phone]) to speak to my nurses. After hours and evenings please call [phone] speak to the GI fellow telephone clerk telegraph office. Please tell themthat Dr. Brewer did your procedure and that your were instructed to have the fellow call me or thephysician covering for me to discuss the management of your condition. If you have an urgent problem, please goto the nearest emergency room and have the ER doctorcall my office during the day or [facility] transfer ([phone]) center after hours and weekends to arrange admission or transfer to our facility. - Call my nurse Arlyn Segovia RN in the GI office at [phone] for your final results in 7 days. [...] Bilirubin, direct 4.2(H) 0.1 - 0.3 mg/dL [facility] Protein, pl 5.5(L) 6.5 - 8.5 g/dL [facility] Albumin 3.0(L) 3.5 - 5.0 g/dL [facility] Alk phos 1,250(H) 40 - 130 Units/L [facility] ALT 143(H) 7 - 45 Units/L [facility] AST 190(H) 10 - 45 Units/L [facility] Blood 09/06/2024 10:5 0 AM CDT 09/06/2024 10:50 AM CDT Narrative [facility] - 09/06/2024 11:32 AM CDT STAT pre procedure lab same day us Geoffrey Shaver MD LAB BLOOD ORDERABLES Final Result ENRIQUE [facility] [address] Department [place] [address] * CT Body Outside Consult (09/05/2024 1:04 [...] images may or may not represent the [place] source data set and thus may contain changes that may lower the accuracy of this second-opinion interpretation. Electronically signed by: Mickey Martinez M.D. Narrative 09/05/2024 2:33 PM CDT EXAMINATION: RADIOLOGY CONSULTATION ON OUTSIDE IMAGING STUDY STUDY INITIALLY PERFORMED: 08/28/2024 at [facility]. TYPE OF STUDY: Multiple CT images [...] STUDY STUDY INITIALLY PERFORMED: 08/28/2024 at [facility]. TYPE OF STUDY: Multiple CT images [...] images may or may not represent the [place] source data set and thus may contain changes that may lower the accuracy of this second-opinion interpretation. Electronically signed by: Brandi CoxD. David Brewer MD IMG CT PROCEDURES Final Res ult from Last 3 Months Insurance [employer] MEDICARE [employer] [facility] [place] [facility] Address: [place] [address] [facility] [place] [facility] MEDIC[facility] [employer] [facility] [place] [employer] Address: [place] [id number] [facility] [place] ADVANTAGE Advance Directives For more information, please contact: [phone] * Full Code (Latest Code Status on [...] 1:22 PM 02/28/2023 7:54 PM Care Teams Subsurface Augmentee Elint Operator Relationship Specialty Start Date End Date Leonidas Rubio MD [address] [place] [address] PCP - General Family Medicine 09/05/24 Arianna Persaud PA [address] [place] [address] Physician Public Relations Player 08/29/24 David Brewer MD [address] [place] [address] Referring Physician Gastroenterology 09/23/24 Kalli Cox MD [address] [place] [address] Consulting Physician Medical Oncology 09/23/24 Daisy Mercado MD [address] [facility] [id number] [place] [address] Consulting Physician General Surgery 09/23/24 Kalli Cox MD [address] [place] [address] Consulting Physician Medical Oncology 10/28/24
--- OUTSIDE RECORDS SUMMARY | 2024-11-14 04:51 | XMS_ITS | Clinical Summary ---
Author Organization [facility] Address [address] [place] [address] Care Team Providers Care Machining Manager Name Role Phone Aury Joseph RN Unavailable [phone] Dar Stinson MD Unavailable [phone] Linette Yepez MD Primary Care Provider + Source Comments [facility],non-owned Affiliates and Associated Physician Practices is amultiple site organization consisting of ambulatory clinics and hospital sitesin [place], [place], [place] and [place]. This disclosure is being madepursuant to the Care Everywhere program and may not contain all information available regarding this patient. 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 [employer] Not on file Not on file Not on file Last Filed Vital Signs Vital Sign Reading Time Taken Comments Blood Pressure 106/74 06/16/2021 10:41 AM VETERINARY MILK SPECIALIST Pulse 60 06/16/2021 10:41 AM VETERINARY MILK SPECIALIST Temperature 36.2 C (97.2 F) 06/16/2021 10:41 AM VETERINARY MILK SPECIALIST Respiratory Rate 20 06/16/2021 10:41 AM VETERINARY MILK SPECIALIST Oxygen Saturation 97% 06/16/2021 10:41 AM VETERINARY MILK SPECIALIST Inhaled Oxygen Concentration - - Weight 72.6 kg (160 lb) 06/16/2021 10:41 AM VETERINARY MILK SPECIALIST Height 160 cm (5' 3) 06/16/2021 10:41 AM VETERINARY MILK SPECIALIST Body Mass Index 28.34 06/16/2021 10:41 AM VETERINARY MILK SPECIALIST Plan of Treatment Health Maintenance Due Date [...] < 140/90 Blood Pressure 106/74(2021 10:41 AM VETERINARY MILK SPECIALIST) Nae Montanez MA Medical Devices Implanted Type Area Sample Puller Device Identifier Shelf Expiration Date Model / Serial / Lot Shell Coat 3hole 54mm Implanted:Qty: 1 on 11/21/2013 by Francis Cortes MD at [facility] Right: Hip [employer] 08/16/2023 [id number] / / [id number] Linr Acetab Refl Xlpe 0deg 36mm X 54mm Implanted:Qty: 1 on 11/21/2013 by Francis Cortes MD at [facility] Right: Hip [employer] 10/15/2023 [id number] / / [id number] Spherical Head Screw 6.5mm Cancellous Implanted:Qty: 1 on 11/21/2013 by Francis Cortes MD at [facility] Right: Hip [employer] 05/17/2023 [id number] / / [id number] Standard Offset Fixed Neck Stikitite Coated Stem Feoral Coponent Implanted:Qty: 1 on 11/21/2013 by Francis Cortes MD at [facility] Right: Hip [employer] 06/14/2023 [id number] / / [id number] 03/30 Taper Femoral Head Implanted:Qty: 1 on 11/21/2013 by Francis Cortes MD at [facility] Right: Hip [employer] 12/14/2022 [id number] / / [id number] Bill Only H1 Uncem Metal Or Ceramic Implanted:Qty: 1 on 11/21/2013 by Francis Cortes MD at [facility] [employer] H1 BILL ONLY [...] 1:06 PM CDT Narrative Resulting Agency Comment [facility] [address] [id number] Feliciano Oliver MD LAB - CHEMISTRY ORDERABLES Fin al Result [facility] ACCOUNT BILL [address] [place] [address] * MAMMO SCREENING DIGITAL IMAGE BILAT (09/09/2014 5:05 PM CDT) Anatomical Region Laterality Modality Breast Bilateral Mammography 09/10/2014 5:08 PM CDT Impressions 09/10/2014 5:09 PM CDT No mammographic evidence of malignancy in either breast. ASSESSMENT: BIRADS Category 1: Negative. RECOMMENDATION: Bilateral screening mammogram in one year. Thank you for allowing us to participate in the care of your patient. [facility] [place] utilizes [employer] as a reminder system to notify patients of their next recommended mammogram. Narrative 09/10/2014 5:09 PM CDT EXAMINATION: Digital screening mammogram on 09/09/2014. Computer assisted detection was utilized. PRIOR: Mammogram from [facility] in 09/28/2006. FINDINGS: Breast parenchymal density: The [...] offers HCV Ab w/Reflex to Verification test #[id number]. Blood specimen (specimen) BLOOD SPECIMEN / Unknown 08/09/2013 8:53 AM CDT 08/09/2013 12:57 PM CDT Narrative Resulting Agency Comment [facility] [address] [phone] Feliciano Oliver MD LAB - CHEMISTRY ORDERABLES Fin al Result [facility] ACCOUNT BILL [address] [place] [address] from Last 3 Months or Most Recently Relevant to Health Maintenance Insurance MANAGED MEDICARE ADV MANAGED MEDICARE ADV Advance Directives * Full Code (Latest Code Status on File) Date Activated Date Inactivated Comments 11/21/2013 12:38 PM 11/24/2013 6:31 PM * Full Code Date Activated Date Inactivated Comments 02/18/2009 10:26 AM 02/22/2009 1:32 AM Care Teams Machining Manager Relationship Specialty Start Date End Date Linette Yepez MD [address] [place] [address] PCP - General Family Medicine 01/09/20 Aury Joseph, RN Yarn Texturing Machine Operator 11/22/13 [place] [id number] [address] Orthopedic Surgery 12/27/13
--- OUTSIDE RECORDS SUMMARY | 2024-11-14 04:51 | XMS_ITS ---
Author Organization [facility] Address [address] [place] [address] Care Team Providers Care Maker Up Folding Name Role Phone Arianna Persaud Unavailable [phone] Leonidas Rubio MD Primary Care Provider David Brewer MD Unavailable Haven Cox M Unavailable Daisy Mercado MD Unavailable [phone] Haven Cox M Th Unavailable Active Problems [...] Hgb. - pelvis US pending - outpatient associate dentist follow up Assessment & Plan (10/24/2024 1:44 PM CDT): Reports recent vaginal spotting when wiping. Stable Hgb. - pelvis US - outpatient associate dentist follow up Assessment & Plan (10/23/2024 3:54 PM CDT): Reports recent vaginal spotting when wiping. Stable Hgb. - pelvis US - outpatient associate dentist follow up Moderate malnutrition 10/22/2024 Left upper [...] onc c/s - continue home Creon - PT/OT/HOG TRADER and RD consult for falls and dysphagia [...] onc c/s - continue home Creon - PT/OT/HOG TRADER and RD consult for falls and dysphagia [...] onc c/s - continue home Creon - PT/OT/HOG TRADER and RD consult for falls and dysphagia [...] Oncology consult - continue home Creon - PT/OT/HOG TRADER and RD consult for falls and dysphagia Pancreatic mass 09/04/2024 Elevated liver function tests 09/04/2024 Intractable pain 02/25/2023 Dizziness 11/07/2022 Mixed anxiety and depressive disorder 06/21/2022 Assessment & Plan (06/21/2022 7:25 PM BASIC SCIENCES DEAN): Worsening after of her mother in 04/2022. [...] opium Assessment & Plan (06/21/2022 7:16 PM BASIC SCIENCES DEAN): Ongoing for approximately 1 week after finishing a course of cefdinir for UTI. No more urinary symptoms or abdominal pain. No acute findings on exam. Will order CDiff test. Advised on Bowel rest: push fluids, bland high fiber diet. Continue immodium if needed. Vulvovaginitis 06/20/2022 Assessment & Plan (06/21/2022 7:17 PM BASIC SCIENCES DEAN): S/p cefdinir course for UTI. Denies discharge or genital lesions. exam deferred per pt request. Rxd Diflucan as directed. Use mild non-fragrant soaps/lotions. Recurrent UTI 06/08/2022 Assessment & Plan (06/08/2022 2:35 PM BASIC SCIENCES DEAN): Currently on Abx for treatment. Patient to [...] hypotension Assessment & Plan (06/21/2022 7:12 PM BASIC SCIENCES DEAN): BP stable in office today on current therapy. Continue current regimen and low salt diet. Stay hydrated. Assessment & Plan (06/08/2022 2:36 PM BASIC SCIENCES DEAN): Chronic and mildly elevated. Goal < 130/80. [...] elsewhere Assessment & Plan (06/08/2022 2:35 PM BASIC SCIENCES DEAN): Chronic and stable. 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 with bus system operator Assessment & Plan (12/23/2021 12:10 PM [...]
--- OUTSIDE RECORDS SUMMARY | 2024-11-14 04:51 | XMS_ITS | Clinical Summary ---
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 - pelvis US pending - outpatient policy loan calculator follow up Assessment & Plan (10/24/2024 1:44 PM CDT): Reports recent vaginal spotting when wiping. Stable Hgb. - pelvis US - outpatient policy loan calculator follow up Assessment & Plan (10/23/2024 3:54 PM CDT): Reports recent vaginal spotting when wiping. Stable Hgb. - pelvis US - outpatient policy loan calculator follow up Moderate malnutrition 10/22/2024 Left upper [...] onc c/s - continue home Creon - PT/OT/JEWELER APPRENTICE and RD consult for falls and dysphagia [...] onc c/s - continue home Creon - PT/OT/JEWELER APPRENTICE and RD consult for falls and dysphagia [...] onc c/s - continue home Creon - PT/OT/JEWELER APPRENTICE and RD consult for falls and dysphagia [...] Oncology consult - continue home Creon - PT/OT/JEWELER APPRENTICE and RD consult for falls and dysphagia Pancreatic mass 09/04/2024 Elevated liver function tests 09/04/2024 Intractable pain 02/25/2023 Dizziness 11/07/2022 Mixed anxiety and depressive disorder 06/21/2022 Assessment & Plan (06/21/2022 7:25 PM [facility]): Worsening after of her mother in 04/2022. [...] opium Assessment & Plan (06/21/2022 7:16 PM [facility]): Ongoing for approximately 1 week after finishing a course of cefdinir for UTI. No more urinary symptoms or abdominal pain. No acute findings on exam. Will order CDiff test. Advised on Bowel rest: push fluids, bland high fiber diet. Continue immodium if needed. Vulvovaginitis 06/20/2022 Assessment & Plan (06/21/2022 7:17 PM [facility]): S/p cefdinir course for UTI. Denies discharge or genital lesions. exam deferred per pt request. Rxd Diflucan as directed. Use mild non-fragrant soaps/lotions. Recurrent UTI 06/08/2022 Assessment & Plan (06/08/2022 2:35 PM [facility]): Currently on Abx for treatment. Patient to [...] hypotension Assessment & Plan (06/21/2022 7:12 PM [facility]): BP stable in office today on current therapy. Continue current regimen and low salt diet. Stay hydrated. Assessment & Plan (06/08/2022 2:36 PM [facility]): Chronic and mildly elevated. Goal < 130/80. [...] elsewhere Assessment & Plan (06/08/2022 2:35 PM [facility]): Chronic and stable. 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 with lump room supervisor Assessment & Plan (12/23/2021 12:10 PM [...] 11/14/19 11:30 AM CDT Home Care Visit [address] [place] [address] Fawad Anderson LCSW INSURANCE LOSS CONTROL SURVEYOR INITIAL EVAL 11/13/19 10:30 AM CDT Home Care Visit [address] [place] [address] Edison Lopez RN SN HOME VISIT 11/13/19 10:07 AM CDT - 11/13/19 11:59 PM CDT Hospital Encounter [facility] [address] [place] [address] Dysuria Discharge Disposition: Discharge to home or self care 11/13/19 9:00 AM CDT Office Visit [facility] Obstetrics and Gynecology [address] [facility] 7th Floor [address] [place] [address] Jackie Szymanski MD Dysuria (Primary Dx); Vaginal atrophy; Uterine prolapse; Urinary retention 11/13/19 Home Care Visit [address] [place] [address] Fawad Anderson LCSW CASE COMMUNICATION 11/13/19 Home Care Visit [address] [place] [address] Edison Lopez, AUSTEN CASE COMMUNICATION 11/12/19 10:00 AM CDT Office Visit [facility] Oncology [address] [place] [phone] Kalli Cox MD Pancreatic adenocarcinoma (HCC) (Primary Dx); Vaginal spotting 11/12/19 9:00 AM CDT Clinical Support [facility] [address] [place] [address] Pancreatic adenocarcinoma (HCC) 11/12/19 Telephone [facility] Oncology [facility] Floor 6 [place] [address] Lissette Ortiz, AUSTEN 11/09/[address] [facility]) [address] [place] [address] Ivet Domingo NP 11/09/19 Telephone [facility] Oncology [address] [place] [address] Floor 6 [place] [phone] Lissette Ortiz, AUSTEN 11/08/19 Home Care Visit [address] [place] [address] Shilpi Eng, PT CASE COMMUNICATION 11/06/19 12:30 PM CDT - 11/06/19 11:59 PM CDT Hospital Encounter [facility] Radiology Echo Lab [address] [place] [address] Pancreatic adenocarcinoma (HCC); Bilateral lower extremity edema Discharge Disposition: Discharge to home or self care 11/06/19 25 Telephone [facility] Oncology [address] [facility] Floor 6 [place] [address] Lissette Ortiz, AUSTEN 11/06/19 25 Telephone [facility] Oncology [address] [place] [phone] Talia Serna CMA 11/05/19 12:30 PM CDT Home Care Visit [address] [address] [address] [place] [address] Edison Lopez, AUSTEN SN OASIS START OF CARE 11/05/19 Plan of Care Documentation [address] [place] [address] 11/02/19 25 Telephone [facility] [address] [place] [address] 3rd Floor [address] [place] [phone] Wesley Sanchez, RN 11/02/19 25 Telephone [facility] [address] [place] [address] 3rd Floor [address] [place] [phone] Wesley Sanchez, RN 11/01/19 25 Telephone [facility] Oncology [facility] Floor 1, [address] [place] [address] Edison [place], AUSTEN 11/01/19 25 Orders Only [facility] Oncology [facility] Floor 1, [address] [place] [address] Edison Cardona, AUSTEN 11/01/19 25 Telephone [facility] [address] [facility] [address] [place] [address] Ashley Tello, RN 11/01/19 Telephone [facility] [address] [facility] [address] [place] [address] Ashley Tello RN 10/29/19 10:15 AM CDT Office Visit [facility] Oncology [address] [place] [address] Kalli Cox MD Pancreatic adenocarcinoma (HCC) (Primary Dx); Bilateral lower extremity edema 10/29/19 9:15 AM CDT Clinical Support [facility] [address] [place] [address] Pancreatic adenocarcinoma (HCC) 10/29/19 Documentation [facility] Oncology [address] [place] [address] Katt Rios LCSW 10/26/19 Orders Only [address] [address] Kalli Cox MD Vaginal spotting (Primary Dx) 10/24/19 2:17 PM CDT - 10/24/19 11:59 PM CDT Hospital Encounter [facility] Radiology 1 [place] [address] Discharge Disposition: Discharge to home or self care 10/23/19 3:25 PM CDT Ancillary Procedure [facility] Vascular Lab IP 1 [facility] [address] [place] [address] 10/22/19 3:30 PM CDT - 10/26/19 3:25 PM CDT Hospital Encounter [address] [address] Kalli Cox MD Tapiavala, Shaili Jayshil, MD [...] care 10/22/19 12:00 PM CDT Ancillary Procedure [facility] Vascular Lab IP 1 [facility] [address] [place] [address] 10/21/19 11:16 PM CDT - 10/21/19 11:59 PM CDT Hospital Encounter [facility] [address] [place] [address] Discharge Disposition: Discharge to home or self care 10/21/19 Telephone [facility] Oncology [address] [place] [address] Floor 5 [place] [address] Jamee Fine NP 10/20/19 Telephone [facility] Oncology [address] [place] [address] Floor 6 [place] [address] 10/18/19 10:45 AM CDT Infusion [facility] at [address] [address] Dehydration (Primary Dx); Pancreatic adenocarcinoma (HCC) 10/18/19 9:45 AM CDT Lab [facility] at [address] [address] Pancreatic adenocarcinoma (HCC) 10/17/19 Telephone [facility] Oncology [address] [place] [address] Floor 5 [place] [address] Lissette Ortiz, AUSTEN 10/16/19 10:00 AM CDT Infusion [facility] at [address] [address] Pancreatic adenocarcinoma (HCC) (Primary Dx) 10/16/19 25 Documentation [facility] at [address] [place] [address] Billie Harry, WALTER 10/16/19 25 Telephone [facility] Oncology [facility] Floor 6 [place] [address] Kalli Cox MD 10/16/19 25 Documentation [facility] Oncology [address] [place] [address] [address] [place] [address] Katt Rios, TELEPHONE SOLICITOR 10/16/19 25 Orders Only [facility] Oncology [address] [place] [address] Floor 5 [place] [address] Lissette Ortiz, AUSTEN Pancreatic adenocarcinoma (HCC) (Primary Dx) 10/15/19 25 7:30 AM CDT Clinical Support [facility] [address] [facility] [place] [address] Pancreatic adenocarcinoma (HCC) 10/15/19 25 Orders Only [facility] Oncology [address] [place] [address] Floor 5 [place] [address] Lissette Ortiz RN Pancreatic adenocarcinoma (HCC) (Primary Dx) 10/15/19 25 Documentation [facility] at [address] [place] [address] Billie Harry, WALTER 10/15/19 25 Documentation [facility] Oncology [address] [place] [address] [address] [place] [address] Katt Rios, TELEPHONE SOLICITOR 10/11/19 25 8:50 AM CDT - 10/11/19 25 11:59 PM CDT Hospital Encounter [facility] [address] [place] [address] Mary Kay Campuzano, RT Sj, AUSTEN Oquendo Emily E. RN Pancreatic adenocarcinoma (HCC) Discharge Disposition: Discharge to home or self care 10/11/19 7:09 AM CDT - 10/11/19 11:59 PM CDT Hospital Encounter [facility] [address] Medical Office Building 2 [place] [address] Pancreatic adenocarcinoma (HCC) Discharge Disposition: Discharge to home or self care 10/10/19 Telephone [facility] [address] [address] Leslie Armando RN 10/10/19 Telephone [facility] [address] [address] [place], [place] [address] Megan Hsu RN 10/08/19 3:45 PM CDT Lab [facility] [address] [place], [place] [address] Pancreatic adenocarcinoma (HCC) 10/08/19 2:00 PM CDT Office Visit [facility] Oncology [address] [place] [phone] Kalli Cox MD Pancreatic adenocarcinoma (HCC) (Primary Dx); Pancreatic mass 09/28/19 1:45 PM CDT Office Visit [facility] Cardiology [address] [facility] [address], [place] [address] Onesimo George MD Atrial fibrillation status post cardioversion (HCC) (Primary Dx); History of cardiac radiofrequency ablation; Essential hypertension; Pancreatic adenocarcinoma (HCC); NOMI on CPAP; Lipid screening 09/21/19 Results Follow-Up [facility] Gastroenterology [address] [place] [address] Medical Office Building 4, [address] [place] [address] Body Outside Consult 09/21/19 Results Follow-Up [facility] Gastroenterology [address] [place] [address] Medical Office Building 4, [address] [place] [address] David Brewer MD Surgical pathology 09/20/19 12:40 PM CDT Anesthesia Event [facility] [place] [address] [facility] [address] [place] [address] Travis Whittington MD 09/20/19 10:17 AM CDT - 09/20/19 2:37 PM CDT Emergency [facility] [address] [facility] [address] [place] [address] Morgan Celestin MD Das, Koushik Kumar, MD Fall, initial encounter (Primary Dx); Pancreatic mass Discharge Disposition: Discharge to home or self care 09/20/19 9:30 AM CDT - 09/20/19 10:30 AM CDT Surgery [facility] [address] [facility] [address] [place] [address] David Brewer MD ESOPHAGOGASTRODUODENOSCOPY ULTRASOUND FINE NEEDLE ASPIRATION/BIOPSY [GI534] 09/19/19 Telephone [facility] Department of Hepatobiliary, Pancreatic, & Gastrointestinal Surgery [address] [facility] Medicine 12th [place], [place] [address] Hilda Love PA 09/18/19 12:15 PM CDT Lab [facility] at [address] [place] [address] Pancreatic mass; 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, unspecified; Encounter for follow-up examination after completed treatment for conditions other than malignant neoplasm 09/18/19 8:30 AM CDT Office Visit [facility] Surgery [address] [place] [address] [address] [place] [address] Daisy Mercado MD Pancreatic mass (Primary Dx); Other specified diseases of pancreas; Encounter for follow-up examination after completed treatment for conditions other than malignant neoplasm; Neoplasm of uncertain behavior of other specified digestive organs 09/18/19 Telephone [facility] Surgery [address] [place] [address] [address] [place] [address] Susan Marroquin RN 09/14/19 12:53 PM CDT - 09/14/19 11:59 PM CDT Hospital Encounter [facility]) [facility] [place] [address] Pancreatic mass Discharge Disposition: Discharge to home or self care 09/14/19 25 Orders Only [facility] Surgery [address] [place] [address] [address] [place] [phone] Ana Sánchez PA Liver lesion (Primary Dx) 09/14/19 25 Orders Only [facility] Gastroenterology [address] [place] [address] Medical Office Building [address], [address] [place] [address] David Brewer MD Elevated liver function tests (Primary Dx) 09/13/19 Telephone [facility] Gastroenterology [address] [place] [address] Office [address], [address] [place] [address] Arlyn Segovia, family practice md call 09/13/19 Orders Only [facility] Gastroenterology [address] [place] [address] Medical Office Building 4, [address] [place] [address] Arlyn Segovia, AUSTEN Pancreatic mass (Primary Dx) 09/12/19 Results Follow-Up [facility] Gastroenterology [address] [place] [address] Medical Office Building [address], [address] [place] [address] David Brewer MD Surgical pathology 09/12/19 Telephone [facility] Surgery [address] [place] [address] [address] [place] [address] Susan Marroquin RN 09/07/19 1:07 PM CDT Anesthesia Event [facility] [address] [place] [phone] Wayne Nicholson MD 09/07/19 12:30 PM CDT - 09/07/19 25 1:00 PM CDT Surgery [facility] [address] [place] [phone] David Brewer MD ESOPHAGOGASTRODUODENOSCOPY ULTRASOUND GUIDE LIMITED 09/07/19 11:07 AM CDT - 09/07/19 4:10 PM CDT Hospital Encounter [facility] [address] [place] [address] Geoffrey Shaver MD Das, Koushik Kumar, MD Pancreatic mass; Elevated liver function tests Discharge Disposition: Discharge to home or self care 09/07/19 10:35 AM CDT Lab [facility] Outpatient Lab [address] [place] [phone] Pancreatic mass; Elevated liver function tests 09/07/19 6:50 AM CDT - 09/07/19 11:59 PM CDT Hospital Encounter [facility] [address] [place] [address] Upper abdominal pain Discharge Disposition: Discharge to home or self care 09/07/19 25 Orders Only [facility] [address] [place] [phone] David Brewer MD 09/06/19 1:04 PM CDT - 09/06/19 11:59 PM CDT Hospital Encounter [facility] ([facility]) [address] [place] [phone] Diagnosis unknown Discharge Disposition: Discharge to home or self care 09/05/19 25 Telephone [facility] Group Cardiology [address] [facility] [address], [place] [address] Onesimo George MD cardiac clearance 09/05/19 25 Telephone [facility]enterology [address] [facility] Office [address], [address] [place] [address] Carmen Ordonez LPN GI Preprocedure 09/04/[address] [facility] Advanced [facility] ([facility]) - [facility] Minimally Invasive Surgery [address] [facility] 12th Floor, [place] [address] Daisy Mercado MD Medical Question/Miscellaneous 09/03/19 25 Orders Only [facility] Surgery [address] [place] [address] Ana Sánchez PA Pancreatic mass (Primary Dx); [...] materials from doctor or pharmacy Sometimes 11/04/2024 [facility] Utilities Answer Date Recorded In the past 12 months has e [employer], oil, or water [employer] threatened to shut off services in your [...] often do you attend chur ch or presybeterian services? Never 10/22/2024 Do you belong to [...] a care home (including now)? No 02/27/2023 Housing Stability Vital Sign Answer Devan e Recorded In the last 12 months, was t here a time when you were not able to pay the mortgage or rent on time? No 10/22/2024 In the past 12 months, how m any times have you moved where you were living? 0 10/22/2024 At any time in the past 12 m [facility], were you homeless or living in a care home (including now)? No 10/22/2024 Personal Safety Answer Date Recorded Have you ever been in or are you currently in a harmful physical or emotional relationship or is someone making you feel afraid or unsafe? 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 Shelf Expiration Date Model / Serial / Lot Conmed Chris Viabil 10mm X 6cm Shortwire [id number] - [id number] - [id number] Implanted:Qty: 1 on 09/06/2024 by David Brewer MD at [facility] Stent N/A: Bile Duct Conmed Chris 06/19/2027 [id number] / [id number] / [employer] Excela Low Porfile Power Port 8fr 1.6mm 1 Lumen [id number] - [id number] Implanted:Qty: 1 on 10/10/2024 at [facility] [employer] 05/07/2029 [id number] / / [id number] Procedures Procedure Name Priority Date/Time Associated Diagnosis [...] VIDEO IP Routine 10/23/2024 3:00 PM CDT JEWELER APPRENTICE EVALUATE AND TREAT VIDEOFLUOROSCOPIC SWALLOW STUDY Routine [...] STAT 4:00 PM CDT Pancreatic adenocarcinoma (HCC) [id number] Routine 10/07/2024 3:52 PM CDT Pancreatic adenocarcinoma [...] 11/13/2024 3:55 PM CDT Testing performed by [facility] Microbiology Laboratory ([phone]) us Jackie Szymanski MD LAB MICROBIOLOGY - GEN ERAL ORDERABLES Final Result ENRIQUE [facility] Department [place] [address] * eGFR (11/11/2024 9:30 AM CDT) eGFR [...] was last reviewed 2021. Testing performed by: [facility], [address] [place] [address] Blood 11/11/2024 9:30 AM CDT 11/11/2024 10:00 AM CDT us Moh'Maurisio Cox MD LAB BLOOD ORDERABLES Gail l Result [facility] [address] [facility] Department [place] [address] * (ABNORMAL) Differential, auto (11/11/2024 9:30 AM CDT) Pathologist [facility] Neutrophil abs 3.94 1.50 - 6.50 K/cumm Comment:Testing performed by : [facility], MOB 2, [address] [place] [address] Imm gran abs 0.03 0.00 - 0.10 K/cumm CERNER BJWCH Comment:Testing performed by : [facility], [facility], [address], [place] [address] Lymphocyte abs 1.28 0.80 - 3.30 K/cumm CERNER BJWCH Comment:Testing performed by : [facility], [facility], [address] [place] [address] Monocyte abs 0.92(H) 0.20 - 0.80 K/cumm CERNER BJWCH Comment:Testing performed by : [facility], [facility], [address] [place] [address] Eosinophil abs 0.07 0.00 - 0.50 K/cumm CERNER BJWCH Comment:Testing performed by : [facility], [facility], [address] [place] [address] Basophil abs 0.06 0.00 - 0.10 K/cumm CERNER BJWCH Comment:Testing performed by : [facility], [facility], [address], [place] [address] Neutrophil pct 62.5 % CERNER BJWCH Comment: Interpretive Data Percent cell count reference ranges are not reported, since discordance with absolute values may lead to misinterpretation of CBC data. Current Interpretive Data was last revised on 2017. Testing performed by: [facility], [facility], [address] [place] [address] Imm gran pct 0.5 % CERNER B[facility]WCH Comment: Interpretive Data Percent cell count reference ranges are not reported, since discordance with absolute values may lead to misinterpretation of CBC data. Current Interpretive Data was last revised on 2017. Testing performed by: [facility], [facility], [address], [place] [address] Lymphocyte pct 20.3 % CERNER BJWCH Comment: Interpretive Data Percent cell count reference ranges are not reported, since discordance with absolute values may lead to misinterpretation of CBC data. Current Interpretive Data was last revised on 2017. Testing performed by: [facility], [facility], [address] [place] [address] Monocyte pct 14.6 % ENRIQUE TORRES Comment: Interpretive Data Percent cell count reference ranges are not reported, since discordance with absolute values may lead to misinterpretation of CBC data. Current Interpretive Data was last revised on 2017. Testing performed by: [facility] 2, [address] [place] [address] Eosinophil pct 1.1 % ENRIQUE TORRES Comment: Interpretive Data Percent cell count reference ranges are not reported, since discordance with absolute values may lead to misinterpretation of CBC data. Current Interpretive Data was last revised on 2017. Testing performed by: [facility] 2, [address] [place] [address] Basophil pct 1.0 % ENRIQUE TORRES Comment: Interpretive Data Percent cell count reference ranges are not reported, since discordance with absolute values may lead to misinterpretation of CBC data. Current Interpretive Data was last revised on 2017. Testing performed by: [facility] 2, [address] [place] [address] Blood 11/11/2024 9:30 AM CDT 11/11/2024 9:41 AM CDT Kalli Cox MD LAB BLOOD ORDERABLES Gail l Result [facility] [address] [facility] [facility] Department [place] [address] * (ABNORMAL) CBC with auto differential (11/11/2024 9:30 AM CDT) WBC 6.30 3.80 - 9.90 K/cumm Comment:Testing performed by : [facility] 2, [address] [place] [address] Hgb 8.3(L) 11.9 - 15.5 g/dL ENRIQUE TORRES Comment:Testing performed by : [facility] 2, [address] [place] [address] Hct 26.1(L) 35.6 - 45.5 % CERNER BJWCH Comment:Testing performed by : [facility], [facility], [address], [place] [address] Plt 290 150 - 400 K/cumm CERNER BJWCH Comment:Testing performed by : [facility] 2, [address] [place] [address] MPV 9.8 9.1 - 12.3 fL CERNER BJWCH Comment:Testing performed by : [facility], [facility], [address] [place] [address] RBC 2.83(L) 3.90 - 5.20 M/cumm CERNER BJWCH Comment:Testing performed by : [facility] 2, [address] [place] [address] MCV 92.2 81.3 - 96.4 fL CERNER BJWCH Comment:Testing performed by : [place] [address], [address], [place] [address] MCH 29.3 27.1 - 33.3 pg CERNER BJWCH Comment:Testing performed by : [facility] 2, [address] [place] [address] MCHC 31.8(L) 32.3 - 35.7 g/dL CERNER BJWCH Comment:Testing performed by : [facility] 2, [address], [place] [address] RDW CV 16.1(H) 11.1 - 14.9 % CERNER BJWCH Comment:Testing performed by : [facility] 2, [address], [place] [address] RDW SD 54.2(H) 35.7 - 48.1 fL CERNER BJWCH Comment:Testing performed by : [facility] 2, [address], [place] [address] ANC Prelim 3.94 1.50 - 6.50 K/cumm CERNER BJWCH Comment: Interpretive Data The rapid ANC is a preliminary automated count and may vary from the final ANC (Neut Abs) reported in the WBC differential that follows. Current interpretive data was last revised 2024. Testing performed by: [facility], [facility], [address] [place] [address] Blood 11/11/2024 9:30 AM CDT 11/11/2024 9:41 AM CDT Kalli Cox MD LAB BLOOD ORDERABLES Gail l Result EN[facility]QUE [facility] [address]. Department [place] [address] * (ABNORMAL) Comprehensive metabolic panel (11/11/2024 9:30 AM CDT) Sodium 137 135 - 145 mmol/L Comment:Testing performed by : [facility], [address], [place] [address] Potassium, pl 3.8 3.3 - 4.9 mmol/L ENRIQUE TORRES Comment:Testing performed by : [facility], [address] [place], [place] [address] Chloride 99 97 - 110 mmol/L ENRIQUE TORRES Comment:Testing performed by : [facility], [address] [place] [address] CO2 29 22 - 32 mmol/L ENRIQUE TORRES Comment:Testing performed by : [facility], [address] [place] [address] Anion gap 9 2 - 15 mmol/L ENRIQUE TORRES Comment:Testing performed by : [facility], [address] [place] [address] BUN 12 6 - 25 mg/dL ENRIQUE TORRES Comment:Testing performed by : [facility], [address] [place] [address] Creatinine 0.80 0.60 - 1.10 mg/dL ENRIQUE TORRES Comment:Testing performed by : [facility], [address], [place] [address] Glucose 110 70 - 199 mg/dL CERNER [...] was last revised 2022. Testing performed by: [facility], [address], [place] [address] Calcium 9.0 8.5 - 10.3 mg/dL CERNER BJWCH Comment:Testing performed by : [facility], [address], [place] [address] Bilirubin, total 0.3 0.1 - 1.2 mg/dL CERNER BJWCH Comment:Testing performed by : [facility], [address], [place] [address] Protein, pl 6.0(L) 6.5 - 8.5 g/dL CERNER BJWCH Comment:Testing performed by : [facility], [address], [place] [address] Albumin 3.1(L) 3.5 - 5.0 g/dL CERNER BJWCH Comment:Testing performed by : [facility], [address], [place] [address] Alk phos 140(H) 40 - 130 Units/L CERNER BJWCH Comment:Testing performed by : [facility], [address], [place] [address] ALT 13 7 - 45 Units/L CERNER BJWCH Comment:Testing performed by : [facility], [address], [place] [address] AST 23 10 - 45 Units/L CERNER BJWCH Comment:Testing performed by : [facility], [address] [facility], [place] [address] Blood 11/11/2024 9:30 AM CDT 11/11/2024 10:00 AM CDT Kalli Cox MD LAB BLOOD ORDERABLES Gail l Result ENRIQUE [facility] [address] [facility]. Department of Laboratories [place], [place] [id number] * TRANSTHORACIC ECHO (TTE) COMPLETE W DOPPLER/CF WO CONTRAST (11/05/2024 2:12 PM CDT) EF Mod BP 74 % CONS SCIMAGE Anatomical Region Laterality Modality Ultrasound 11/05/2024 1:18 PM CDT Narrative 11/06/2024 2:05 PM CDT [facility] [place] [address] Transthoracic Echocardiographic Report Patient Name: SUSANNAH CAMARGO A : 1950 (73y 10m) Gender: F Study Date: 11/05/2024 13:18:30 Ht(Inch): 61 Wt(Lb): 162.04 BSA: 1.78 Hosiery Knitter: SHANNA Location: [facility] Order Provider: KALLI COX Heart Rate: [...] Note Jose J Hernandez MD - 11/06/2024 [facility] [place] [address] Transthoracic Echocardiographic Report Patient Name: SUSANNAH CAMARGO A : 1950 (73y 10m) Gender: F Study Date: 11/05/2024 13:18:30 Ht(Inch): 61 Wt(Lb): 162.04 BSA: 1.78 Hosiery Knitter: SHANNA Location: [facility] Order Provider: KALLI COX Heart Rate: [...] LA Length 4C 6.24 cm MV Decel [id number] msec [ 104.00 - 258.00 ] LA [...] Jose J Hernandez MD 11/06/2024 14:05:24 CDT [facility] M Mili Cox MD CV ECHO PROCEDURES [...] was last reviewed 2021. Testing performed by: [facility], [address] [place] [address] Blood 10/28/2024 9:38 AM CDT 10/28/2024 10:02 AM CDT Kalli Cox MD LAB BLOOD ORDERABLES Gail l Result [facility] [address]. Department [place] [address] * Differential, auto (10/28/2024 9:38 AM CDT) Neutrophil abs 1.73 1.50 - 6.50 K/cumm Comment:Testing performed by : [facility] 2, [address] [place] [address] Imm gran abs 0.02 0.00 - 0.10 K/cumm ENRIQUE BJWCH Comment:Testing performed by : [facility] 2, [address] [place] [address] Lymphocyte abs 0.98 0.80 - 3.30 K/cumm ENRIQUE BJWSTEVE Comment:Testing performed by : [facility] 2, [address] [place] [address] Monocyte abs 0.56 0.20 - 0.80 K/cumm ENRIQUE BJWCH Comment:Testing performed by : [facility] 2, [address] [place] [address] Eosinophil abs 0.04 0.00 - 0.50 K/cumm ENRIQUE BJWCH Comment:Testing performed by : [facility] 2, [address] [place] [address] Basophil abs 0.01 0.00 - 0.10 K/cumm ENRIQUE BJWCH Comment:Testing performed by : [facility] 2, [address] [place] [address] Neutrophil pct 51.8 % CERMARCELO BJWCH Comment: Interpretive Data Percent cell count reference ranges are not reported, since discordance with absolute values may lead to misinterpretation of CBC data. Current Interpretive Data was last revised on 2017. Testing performed by: [facility], [facility], [address] [place] [address] Imm gran pct 0.6 % CERNER BJWCH Comment: Interpretive Data Percent cell count reference ranges are not reported, since discordance with absolute values may lead to misinterpretation of CBC data. Current Interpretive Data was last revised on 2017. Testing performed by: [facility], [facility], [address] [place] [address] Lymphocyte pct 29.3 % CERNER BJWCH Comment: Interpretive Data Percent cell count reference ranges are not reported, since discordance with absolute values may lead to misinterpretation of CBC data. Current Interpretive Data was last revised on 2017. Testing performed by: [facility], [facility], [address] [place] [address] Monocyte pct 16.8 % CERNER BJWCH Comment: Interpretive Data Percent cell count reference ranges are not reported, since discordance with absolute values may lead to misinterpretation of CBC data. Current Interpretive Data was last revised on 2017. Testing performed by: [facility], [facility], [address] [place] [address] Eosinophil pct 1.2 % CERNER BJWCH Comment: Interpretive Data Percent cell count reference ranges are not reported, since discordance with absolute values may lead to misinterpretation of CBC data. Current Interpretive Data was last revised on 2017. Testing performed by: [facility], [facility], [address] [place] [address] Basophil pct 0.3 % CERNER BJWCH Comment: Interpretive Data Percent cell count reference ranges are not reported, since discordance with absolute values may lead to misinterpretation of CBC data. Current Interpretive Data was last revised on 2017. Testing performed by: [facility], [facility], [address] [place] [address] Blood 10/28/2024 9:38 AM CDT 10/28/2024 9:40 AM CDT [facility]Maurisio Cox MD LAB BLOOD ORDERABLES Gail radha Result [facility] [address] [facility]. Department [place] [address] * (ABNORMAL) CBC with auto differential (10/28/2024 9:38 AM CDT) Pathologist [facility] WBC 3.34(L) 3.80 - 9.90 K/cumm Comment:Testing performed by : [place] [address] [place] [address] Hgb 8.2(L) 11.9 - 15.5 g/dL ENRIQUE BRADFORD Comment:Testing performed by : [place] [address] [place] [address] Hct 26.3(L) 35.6 - 45.5 % ENRIQUE [facility] Comment:Testing performed by : [address] [place] [address] Plt 218 150 - 400 K/cumm ENRIQUE TORRES Comment:Testing performed by : [place] [address] [place] [address] MPV 8.8(L) 9.1 - 12.3 fL ENRIQUE BRADFORDCH Comment:Testing performed by : [place] [address], [address] [place] [address] RBC 2.89(L) 3.90 - 5.20 M/cumm ENRIQUE TORRES Comment:Testing performed by : [place] [address], [address] [place] [address] MCV 91.0 81.3 - 96.4 fL ENRIQUE BETANCOURTWCH Comment:Testing performed by : [place] [address], [address] [place] [address] MCH 28.4 27.1 - 33.3 pg ENRIQUE BRADFORD Comment:Testing performed by : [facility], [facility], [address] [place] [address] MCHC 31.2(L) 32.3 - 35.7 g/dL ENRIQUE BRADFORD Comment:Testing performed by : [facility], [facility], [address] [place] [address] RDW CV 14.1 11.1 - 14.9 % ENRIQUE BRADFORD Comment:Testing performed by : [facility], [facility], [address] [place] [address] RDW SD 47.1 35.7 - 48.1 fL ENRIQUE BRADFORD Comment:Testing performed by : [facility], [facility], [address] [place] [address] ANC Prelim 1.73 1.50 - 6.50 K/cumm ENRIQUE BRADFORD Comment: Interpretive Data The rapid ANC is a preliminary automated count and may vary from the final ANC (Neut Abs) reported in the WBC differential that follows. Current interpretive data was last revised 2024. Testing performed by: [facility], [facility], [address] [place] [address] Blood 10/28/2024 9:38 AM CDT 10/28/2024 9:40 AM CDT Ibeth'Maurisio Cox MD LAB BLOOD ORDERABLES Gail l Result EN[facility] [address]. Department [place] [address] * (ABNORMAL) Comprehensive metabolic panel (10/28/2024 9:38 AM CDT) Sodium 137 135 - 145 mmol/L Comment:Testing performed by : [facility], [address] [place] [address] Potassium, pl 3.6 3.3 - 4.9 mmol/L CERNER BJWCH Comment:Testing performed by : [facility], [address], [place] [address] Chloride 104 97 - 110 mmol/L CERNER BJWCH Comment:Testing performed by : [facility], [address], [place] [address] CO2 28 22 - 32 mmol/L CERNER BJWCH Comment:Testing performed by : [facility], [address], [place] [address] Anion gap 5 2 - 15 mmol/L CERNER BJWCH Comment:Testing performed by : [facility], [address], [place] [address] BUN 9 6 - 25 mg/dL CERNER BJWCH Comment:Testing performed by : [facility], [address], [place] [address] Creatinine 0.72 0.60 - 1.10 mg/dL CERNER BJWCH Comment:Testing performed by : [facility], [address], [place] [address] Glucose 87 70 - 199 mg/dL CERNER [...] was last revised 2022. Testing performed by: [facility], [address], [place] [address] Calcium 8.9 8.5 - 10.3 mg/dL CERNER BJWCH Comment:Testing performed by : [facility], [address], [place] [address] Bilirubin, total 0.4 0.1 - 1.2 mg/dL CERNER BJWCH Comment:Testing performed by : [facility], [address], [place] [address] Protein, pl 5.4(L) 6.5 - 8.5 g/dL CERNER BJWCH Comment:Testing performed by : [facility], [address], [place] [address] Albumin 3.1(L) 3.5 - 5.0 g/dL CERNER BJWCH Comment:Testing performed by : [facility], [address], [place] [address] Alk phos 189(H) 40 - 130 Units/L CERNER BJWCH Comment:Testing performed by : [facility], [address], [place] [address] ALT 12 7 - 45 Units/L CERNER BJWCH Comment:Testing performed by : [facility], [address], [place] [address] AST 20 10 - 45 Units/L CERNER BJWCH Comment:Testing performed by : [facility], [address], [place] [address] Blood 10/28/2024 9:38 AM CDT 10/28/2024 10:02 AM CDT us Kalli Cox MD LAB BLOOD ORDERABLES Gail l Result Performing Organization Address City/[facility]/ZIP Co de Phone Number [facility] [address] Department [place] [address] * POCT glucose (10/25/2024 11:40 AM CDT) Glucose, POC 80 70 - 199 mg/dL Blood 10/25/2024 11:4 0 AM CDT 10/25/2024 11:40 AM CDT us Tana Coronado MD LAB POCT ORDERABLES - DEVICE Final Result Performing Organization Address City/[facility]/ZIP Co de Phone Number [facility] Department [place] [address] * US Transvaginal (10/25/2024 10:30 AM CDT) [...] LAB POCT ORDERABLES - DEVICE Final Result [facility] Department [place] [address] * eGFR (10/25/2024 1:45 AM CDT) eGFR [...] MD LAB BLOOD ORDER SHANT Final Result [facility] Department [place] [address] * (ABNORMAL) Differential, auto (10/25/2024 1:45 AM CDT) Neutrophil abs 1.51 1.50 - 6.50 K/cumm Imm gran abs 0.01 0.00 - 0.10 K/cumm CERNER [facility] Lymphocyte abs 0.70(L) 0.80 - 3.30 K/cumm [facility] Monocyte abs 0.52 0.20 - 0.80 K/cumm [facility] Eosinophil abs 0.04 0.00 - 0.50 K/cumm [facility] Basophil abs 0.01 0.00 - 0.10 K/cumm [facility] Neutrophil pct 54.1 % [facility] Comment: Interpretive Data Percent cell count reference ranges are not reported, since discordance with absolute values may lead to misinterpretation of CBC data. Current Interpretive Data was last revised on 2017. Imm gran pct 0.4 % [facility] Comment: Interpretive Data Percent cell count reference ranges are not reported, since discordance with absolute values may lead to misinterpretation of CBC data. Current Interpretive Data was last revised on 2017. Lymphocyte pct 25.1 % [facility] Comment: Interpretive Data Percent cell count reference ranges are not reported, since discordance with absolute values may lead to misinterpretation of CBC data. Current Interpretive Data was last revised on 2017. Monocyte pct 18.6 % [facility] Comment: Interpretive Data Percent cell count reference ranges are not reported, since discordance with absolute values may lead to misinterpretation of CBC data. Current Interpretive Data was last revised on 2017. Eosinophil pct 1.4 % [facility] Comment: Interpretive Data Percent cell count reference ranges are not reported, since discordance with absolute values may lead to misinterpretation of CBC data. Current Interpretive Data was last revised on 2017. Basophil pct 0.4 % [facility] Comment: Interpretive Data Percent cell count reference ranges are not reported, since discordance with absolute values may lead to misinterpretation of CBC data. Current Interpretive Data was last revised on 2017. Blood 10/25/2024 1:45 AM CDT 10/25/2024 3:54 AM CDT Jessi Briggs MD LAB BLOOD ORDER SHANT Final Result [facility] Department [place] [address] * (ABNORMAL) CBC with auto differential (10/25/2024 1:45 AM CDT) WBC 2.79(L) 3.80 - 9.90 K/cumm Hgb 7.5(L) 11.9 - 15.5 g/dL [facility] Hct 23.0(L) 35.6 - 45.5 % [facility] Plt 115(L) 150 - 400 K/cumm [facility] MPV 9.6 9.1 - 12.3 fL [facility] RBC 2.56(L) 3.90 - 5.20 M/cumm [facility] MCV 89.8 81.3 - 96.4 fL [facility] MCH 29.3 27.1 - 33.3 pg [facility] MCHC 32.6 32.3 - 35.7 g/dL [facility] RDW CV 14.5 11.1 - 14.9 % [facility] RDW SD 47.8 35.7 - 48.1 fL [facility] NRBC abs 0.00 0.00 - 0.01 K/cumm [facility] Blood 10/25/2024 1:45 AM CDT 10/25/2024 3:54 AM CDT Jessi Briggs MD LAB BLOOD ORDER SHANT Final Result Performing Organization Address City/[facility]/ZIP Co de Phone Number [facility] Department [place] [address] * Phosphorus (10/25/2024 1:45 AM CDT) Pathologist [facility] Phosphorus, pl 2.5 2.3 - 4.5 mg/dL Blood 10/25/2024 1:45 AM CDT 10/25/2024 3:54 AM CDT Jessi Briggs MD LAB BLOOD ORDER SHANT Final Result Performing Organization Address City/[facility] de Phone Number [facility] [place] [address] * (ABNORMAL) Comprehensive metabolic panel (10/25/2024 1:45 AM CDT) Pathologist [facility] Sodium 142 135 - 145 mmol/L Potassium, pl 3.3 3.3 - 4.9 mmol/L [facility] Chloride 106 97 - 110 mmol/L [facility] CO2 29 22 - 32 mmol/L [facility] Anion gap 7 2 - 15 mmol/L [facility] BUN 5(L) 6 - 25 mg/dL [facility] Creatinine 0.69 0.60 - 1.10 mg/dL [facility] Glucose 90 70 - 199 mg/dL [facility] Comment: Interpretive Data Fasting glucose >/= [...] Calcium 8.3(L) 8.5 - 10.3 mg/dL CERNER [facility] Bilirubin, total 0.3 0.1 - 1.2 mg/dL CERNER [facility] Protein, pl 4.9(L) 6.5 - 8.5 g/dL CERNER [facility] Albumin 2.7(L) 3.5 - 5.0 g/dL CERNER [facility] Alk phos 148(H) 40 - 130 Units/L CERNER [facility] ALT 11 7 - 45 Units/L CERNER [facility] AST 16 10 - 45 Units/L CERNER [facility] Blood 10/25/2024 1:45 AM CDT 10/25/2024 3:54 AM CDT us Jessi Briggs MD LAB BLOOD ORDER SHANT Final Result [facility] Department [place] [address] * POCT glucose (10/25/2024 1:43 AM CDT) Glucose, POC 104 70 - 199 mg/dL Blood 10/25/2024 1:43 AM CDT 10/25/2024 1:43 AM CDT us Tana Coronado MD LAB POCT ORDERABLES - DEVICE Final Result [facility] Department of [employer] [place] [address] * POCT glucose (10/24/2024 8:55 PM CDT) Glucose, POC 105 70 - 199 mg/dL Blood 10/24/2024 8:55 PM CDT 10/24/2024 8:55 PM CDT Tana Coronado MD LAB POCT ORDERABLES - DEVICE Final Result [facility] Department [place] [address] * POCT glucose (10/24/2024 6:11 PM CDT) Glucose, POC 80 70 - 199 mg/dL Blood 10/24/2024 6:11 PM CDT 10/24/2024 6:11 PM CDT Tana Coronado MD LAB POCT ORDERABLES - DEVICE Final Result Performing Organization Address [facility] Co de Phone Number ENRIQUE [facility] Department [place] [address] * Diagnostic Mammogram Bilateral W Ayad (10/24/2024 [...] bilateral axilla was performed by a trained flying i instructor and Dr. Andrade. Subsequently, full field digital [...] bilateral axilla was performed by a trained flying i instructor and Dr. Andrade. Subsequently, full field digital [...] PM CDT 10/24/2024 1:03 PM CDT Result [facility] Tana Coronado MD LAB POCT ORDERABLES - DEVICE Final Result Performing Organization Address [facility] Co de Phone Number [facility] Department of [employer] [place] [address] * POCT glucose (10/24/2024 8:49 AM CDT) Glucose, POC 98 70 - 199 mg/dL Blood 10/24/2024 8:49 AM CDT 10/24/2024 8:49 AM CDT Result [facility] Tana Coronado MD LAB POCT ORDERABLES - DEVICE Final Result [facility] Department of [employer] [address] * POCT glucose (10/24/2024 2:00 AM CDT) Glucose, POC 88 70 - 199 mg/dL Blood 10/24/2024 2:00 AM CDT 10/24/2024 2:00 AM CDT Result [facility] Tana Coronado MD LAB POCT ORDERABLES - DEVICE Final Result Performing Organization Address [facility]/ZIP Co de Phone Number ENRIQUE [facility] Department [place] [address] * eGFR (10/24/2024 1:50 AM CDT) Pathologist [facility] eGFR >90 >=60 mL/min/1. 73 m2 Comment: [...] ORDER SHANT Final Result Performing Organization Address City/[facility]/ZIP Co de Phone Number ENRIQUE [facility] Department [place] [address] * Differential, auto (10/24/2024 1:50 AM CDT) Pathologist [facility] Neutrophil abs 2.44 1.50 - 6.50 K/cumm Imm gran abs 0.02 0.00 - 0.10 K/cumm [facility] Lymphocyte abs 1.24 0.80 - 3.30 K/cumm [facility] Monocyte abs 0.74 0.20 - 0.80 K/cumm [facility] Eosinophil abs 0.08 0.00 - 0.50 K/cumm [facility] Basophil abs 0.01 0.00 - 0.10 K/cumm [facility] Neutrophil pct 53.9 % [facility] Comment: Interpretive Data Percent cell count reference ranges are not reported, since discordance with absolute values may lead to misinterpretation of CBC data. Current Interpretive Data was last revised on 2017. Imm gran pct 0.4 % [facility] Comment: Interpretive Data Percent cell count reference ranges are not reported, since discordance with absolute values may lead to misinterpretation of CBC data. Current Interpretive Data was last revised on 2017. Lymphocyte pct 27.4 % [facility] Comment: Interpretive Data Percent cell count reference ranges are not reported, since discordance with absolute values may lead to misinterpretation of CBC data. Current Interpretive Data was last revised on 2017. Monocyte pct 16.3 % [facility] Comment: Interpretive Data Percent cell count reference ranges are not reported, since discordance with absolute values may lead to misinterpretation of CBC data. Current Interpretive Data was last revised on 2017. Eosinophil pct 1.8 % [facility] Comment: Interpretive Data Percent cell count reference ranges are not reported, since discordance with absolute values may lead to misinterpretation of CBC data. Current Interpretive Data was last revised on 2017. Basophil pct 0.2 % [facility] Comment: Interpretive Data Percent cell count reference ranges are not reported, since discordance with absolute values may lead to misinterpretation of CBC data. Current Interpretive Data was last revised on 2017. Blood 10/24/2024 1:50 AM CDT 10/24/2024 2:13 AM CDT Jessi Briggs MD LAB BLOOD ORDER SHANT Final Result [facility] Department [place] [address] * Calcium, ionized (10/24/2024 1:50 AM CDT) [facility] Calcium, Ionized 4.85 4.50 - 5.10 mg/dL Blood 10/24/2024 1:50 AM CDT 10/24/2024 2:10 AM CDT us Tana Coronado MD LAB BLOOD ORDERABLES Final Result [facility] Department of [employer] [place] [address] * (ABNORMAL) CBC with auto differential (10/24/2024 1:50 AM CDT) [facility] WBC 4.53 3.80 - 9.90 K/cumm Hgb 8.8(L) 11.9 - 15.5 g/dL [facility] Hct 26.9(L) 35.6 - 45.5 % [facility] Plt 160 150 - 400 K/cumm [facility] MPV 9.8 9.1 - 12.3 fL [facility] RBC 2.97(L) 3.90 - 5.20 M/cumm [facility] MCV 90.6 81.3 - 96.4 fL [facility] MCH 29.6 27.1 - 33.3 pg [facility] MCHC 32.7 32.3 - 35.7 g/dL [facility] RDW CV 14.5 11.1 - 14.9 % [facility] RDW SD 48.5(H) 35.7 - 48.1 fL [facility] NRBC abs 0.00 0.00 - 0.01 K/cumm [facility] Blood 10/24/2024 1:50 AM CDT 10/24/2024 2:13 AM CDT us Jessi Briggs MD LAB BLOOD ORDER SHANT Final Result [facility] Department of [employer] [place] [address] * Type and screen (10/24/2024 1:50 AM CDT) ABO Rh O Negative Brigitte, indirect Negative [facility] Blood 10/24/2024 1:50 AM CDT 10/24/2024 2:25 AM CDT Narrative [facility] - 10/24/2024 3:52 AM CDT Has the patient had Daratumumab or Isatuximab in the past 6 months?->Unknown Jessi Briggs MD LAB BLOOD BANK TEST ORDERABLES Final Result [facility] Department [place] [address] * Uric acid (10/24/2024 1:50 AM CDT) Uric acid 3.8 2.5 - 7.0 mg/dL Blood 10/24/2024 1:50 AM CDT 10/24/2024 2:13 AM CDT Narrative [facility] - 10/24/2024 2:40 AM CDT Monday and only. Morning draw. . Jessi Briggs MD LAB BLOOD ORDER SHANT Final Result [facility] Department [place] [address] * Phosphorus (10/24/2024 1:50 AM CDT) Phosphorus, pl 2.4 2.3 - 4.5 mg/dL Blood 10/24/2024 1:50 AM CDT 10/24/2024 2:13 AM CDT Jessi Briggs MD LAB BLOOD ORDER SHANT Final Result [facility] Department [place] [address] * Lactate dehydrogenase (LD) (10/24/2024 1:50 AM CDT) [facility] Lactate dehydrogenase (LDH) 213 100 - 250 Units/L Blood 10/24/2024 1:50 AM CDT 10/24/2024 2:13 AM CDT Narrative [facility] - 10/24/2024 2:40 AM CDT Monday and only. Morning draw. Jessi Briggs MD LAB BLOOD ORDER SHANT Final Result [facility] Department [place] [address] * (ABNORMAL) Comprehensive metabolic panel (10/24/2024 1:50 AM CDT) [facility] Sodium 138 135 - 145 mmol/L Potassium, pl 3.6 3.3 - 4.9 mmol/L [facility] Chloride 107 97 - 110 mmol/L [facility] CO2 28 22 - 32 mmol/L [facility] Anion gap 3 2 - 15 mmol/L [facility] BUN 8 6 - 25 mg/dL [facility] Creatinine 0.63 0.60 - 1.10 mg/dL [facility] Glucose 88 70 - 199 mg/dL [facility] Comment: Interpretive Data Fasting glucose >/= [...] 2022. Calcium 8.9 8.5 - 10.3 mg/dL [facility] Bilirubin, total 0.3 0.1 - 1.2 mg/dL [facility] Protein, pl 5.8(L) 6.5 - 8.5 g/dL [facility] Albumin 3.1(L) 3.5 - 5.0 g/dL [facility] Alk phos 185(H) 40 - 130 Units/L [facility] ALT 13 7 - 45 Units/L [facility] AST 20 10 - 45 Units/L [facility] Blood 10/24/2024 1:50 AM CDT 10/24/2024 2:13 AM CDT Jessi Briggs MD LAB BLOOD ORDER SHANT Final Result Performing Organization Address [facility] Co de Phone Number [facility] [employer] [facility] [place] [address] * (ABNORMAL) Vancomycin level trough (10/23/2024 11:26 PM CDT) Vancomycin trough 5.7(L) 10.0 - 20.0 mcg/mL Blood 10/23/2024 11:2 6 PM CDT 10/23/2024 11:36 PM CDT Cayla Solorzano MD LAB BLOOD ORDERABLES Final Resul t Performing Organization Address [facility] Co de Phone Number [facility] of [employer] [place] [address] * POCT glucose (10/23/2024 8:27 PM CDT) Glucose, POC 98 70 - 199 mg/dL Blood 10/23/2024 8:27 PM CDT 10/23/2024 8:27 PM CDT Tana Coronado MD LAB POCT ORDERABLES - DEVICE Final Result Performing Organization Address City/[facility] Co de Phone Number [facility] of [employer] [place] [address] * POCT glucose (10/23/2024 5:50 PM CDT) Glucose, POC 104 70 - 199 mg/dL Blood 10/23/2024 5:50 PM CDT 10/23/2024 5:50 PM CDT us Tana Coronado MD LAB POCT ORDERABLES - DEVICE Final Result [facility] Department [place] [address] * FL Modified Barium Swallow W Video [...] IMG FLUOROSCOPY PROC EDURES Final Result * JEWELER APPRENTICE Evaluate and Treat (VFSS) (10/23/2024 2:38 PM [...] h/o gastric sleeve, who presents to the [facility] 10/21/24 due to Fever at [...] thin liquid General Information Susannah Camargo 10/23/24 JEWELER APPRENTICE Received On: 10/23/24 General Observations: alert, cooperative Reason for Referral:suspect pharyngeal dysphagia Pain Score: 0 - No pain If pain >4, was RN notified? N/A Patient Stated Goal/Comments: agrees to [facility] Clinical Impression & Professional Recommendations Diet Solids [...] SHERI indicate need for nonoral nutrition. Plan JEWELER APPRENTICE Recommendation (Add'l Services): No further JEWELER APPRENTICE indicated (do not anticipate JEWELER APPRENTICE needs at discharge) Next Visit Plan: treatment/therapy Discharge Summary Statement If this is the last swallow therapy visit, this serves as the discharge summary. Tana Coronado MD JEWELER APPRENTICE ORDERABLES Gail l Result * POCT glucose (10/23/2024 11:58 AM CDT) Glucose, POC 78 70 - 199 mg/dL Blood 10/23/2024 11:5 8 AM CDT 10/23/2024 11:58 AM CDT Tana Coronado MD LAB POCT ORDERABLES - DEVICE Final Result Performing Organization Address City/[facility] Co de Phone Number [facility] Department of [employer] [place] [address] * POCT glucose (10/23/2024 7:26 AM CDT) Glucose, POC 84 70 - 199 mg/dL Blood 10/23/2024 7:26 AM CDT 10/23/2024 7:26 AM CDT Tana Coronado MD LAB POCT ORDERABLES - DEVICE Final Result Performing Organization Address City/[facility] Co de Phone Number [facility] of [employer] [place] [address] * eGFR (10/23/2024 12:28 AM CDT) eGFR [...] MD LAB BLOOD ORDER SHANT Final Result [facility] Department [place] [address] * (ABNORMAL) Differential, auto (10/23/2024 12:28 AM CDT) Neutrophil abs 2.24 1.50 - 6.50 K/cumm Imm gran abs 0.01 0.00 - 0.10 K/cumm [facility] Lymphocyte abs 0.74(L) 0.80 - 3.30 K/cumm [facility] Monocyte abs 0.54 0.20 - 0.80 K/cumm [facility] Eosinophil abs 0.03 0.00 - 0.50 K/cumm [facility] Basophil abs 0.01 0.00 - 0.10 K/cumm [facility] Neutrophil pct 62.8 % [facility] Comment: Interpretive Data Percent cell count reference ranges are not reported, since discordance with absolute values may lead to misinterpretation of CBC data. Current Interpretive Data was last revised on 2017. Imm gran pct 0.3 % [facility] Comment: Interpretive Data Percent cell count reference ranges are not reported, since discordance with absolute values may lead to misinterpretation of CBC data. Current Interpretive Data was last revised on 2017. Lymphocyte pct 20.7 % [facility] Comment: Interpretive Data Percent cell count reference ranges are not reported, since discordance with absolute values may lead to misinterpretation of CBC data. Current Interpretive Data was last revised on 2017. Monocyte pct 15.1 % [facility] Comment: Interpretive Data Percent cell count reference ranges are not reported, since discordance with absolute values may lead to misinterpretation of CBC data. Current Interpretive Data was last revised on 2017. Eosinophil pct 0.8 % [facility] Comment: Interpretive Data Percent cell count reference ranges are not reported, since discordance with absolute values may lead to misinterpretation of CBC data. Current Interpretive Data was last revised on 2017. Basophil pct 0.3 % [facility] Comment: Interpretive Data Percent cell count reference ranges are not reported, since discordance with absolute values may lead to misinterpretation of CBC data. Current Interpretive Data was last revised on 2017. Blood 10/23/2024 12:2 8 AM CDT 10/23/2024 12:47 AM CDT Jessi Briggs MD LAB BLOOD ORDER SHANT Final Result [facility] Department [place] [address] * (ABNORMAL) CBC with auto differential (10/23/2024 12:28 AM CDT) WBC 3.57(L) 3.80 - 9.90 K/cumm Hgb 8.0(L) 11.9 - 15.5 g/dL [facility] Hct 24.1(L) 35.6 - 45.5 % [facility] Plt 124(L) 150 - 400 K/cumm [facility] MPV 10.5 9.1 - 12.3 fL [facility] RBC 2.72(L) 3.90 - 5.20 M/cumm [facility] MCV 88.6 81.3 - 96.4 fL [facility] MCH 29.4 27.1 - 33.3 pg [facility] MCHC 33.2 32.3 - 35.7 g/dL [facility] RDW CV 14.7 11.1 - 14.9 % [facility] RDW SD 47.7 35.7 - 48.1 fL [facility] NRBC abs 0.00 0.00 - 0.01 K/cumm [facility] Blood 10/23/2024 12:2 8 AM CDT 10/23/2024 12:47 AM CDT Jessi Briggs MD LAB BLOOD ORDER SHANT Final Result Performing Organization Address City/[facility]/ZIP Co de Phone Number [facility] Department [place] [address] * (ABNORMAL) Phosphorus (10/23/2024 12:28 AM CDT) [facility] Phosphorus, pl 2.1(L) 2.3 - 4.5 mg/dL Blood 10/23/2024 12:2 8 AM CDT 10/23/2024 12:46 AM CDT us Jessi Briggs MD LAB BLOOD ORDER SHANT Final Result [facility] Department [place] [address] * (ABNORMAL) Comprehensive metabolic panel (10/23/2024 12:28 AM CDT) [facility] Sodium 137 135 - 145 mmol/L Potassium, pl 3.5 3.3 - 4.9 mmol/L [facility] Chloride 105 97 - 110 mmol/L [facility] CO2 27 22 - 32 mmol/L [facility] Anion gap 5 2 - 15 mmol/L [facility] BUN 8 6 - 25 mg/dL [facility] Creatinine 0.58(L) 0.60 - 1.10 mg/dL [facility] Glucose 122 70 - 199 mg/dL [facility] Comment: Interpretive Data Fasting glucose >/= [...] 2022. Calcium 8.2(L) 8.5 - 10.3 mg/dL [facility] Bilirubin, total 0.4 0.1 - 1.2 mg/dL [facility] Protein, pl 5.3(L) 6.5 - 8.5 g/dL [facility] Albumin 2.8(L) 3.5 - 5.0 g/dL [facility] Alk phos 175(H) 40 - 130 Units/L [facility] ALT 14 7 - 45 Units/L [facility] AST 17 10 - 45 Units/L [facility] Blood 10/23/2024 12:2 8 AM CDT 10/23/2024 12:46 AM CDT Jessi Briggs MD LAB BLOOD ORDER SHANT Final Result [facility] [place] [address] * POCT glucose (10/22/2024 8:01 PM CDT) [facility] Glucose, POC 112 70 - 199 mg/dL Blood 10/22/2024 8:01 PM CDT 10/22/2024 8:01 PM CDT Tana Coronado MD LAB POCT ORDERABLES - DEVICE Final Result Performing Organization Address City/[facility] Co de Phone Number [facility] [place] [address] * POCT glucose (10/22/2024 5:14 PM CDT) Glucose, POC 99 70 - 199 mg/dL Blood 10/22/2024 5:14 PM CDT 10/22/2024 5:14 PM CDT Tana Coronado MD LAB POCT ORDERABLES - DEVICE Final Result Performing Organization Address [facility] Co de Phone Number [facility] [place] [address] * US Vein Duplex Upper Extremity Left Limited, Unilateral (10/22/2024 4:42 PM CDT) Anatomical Region Laterality Modality Vascular Left Ultrasound 10/22/2024 4:10 PM CDT Narrative 10/22/2024 9:32 PM CDT [facility] - Department of Vascular Surgery, Vascular Laboratory [address] [place] [id number] Upper Extremity Venous Ultrasound Report Patient Name: SUSANNAH CAMARGO : 1950 (73y 9m) Study Date: 10/22/2024 4:10:04 PM Gender: F Tech: NE Location: [id number] Ref Provider: TANA CORONADO Quality: Adequate Order Provider: TANA CORONADO PROCEDURES: Vascular Report: Venous Duplex imaging was performed in the left upper extremity. The internal jugular, subclavian and axillary veins were evaluated for patency, spontaneity and phasicity with Doppler, compression and augmentation maneuvers. The brachial, basilic and cephalic veins were also evaluated with compression maneuvers. INDICATIONS: LUE swelling, erythema. FINDINGS: Performing Hosiery Knitter: Halley Castillo RVT. Left: Venous Doppler signals [...] Procedure Note Dano Gleason MD - 10/22/2024 [employer] [facility] [employer] - Department of Vascular Surgery,Vascular Laboratory [address] [place] [id number] Upper Extremity Venous Ultrasound Report Patient Name: SUSANNAH CAMARGO : 1950 (73y 9m) Study Date: 10/22/2024 4:10:04 PM Gender: F Tech: NE Location: [id number] Ref Provider: TANA CORONADO Quality: Adequate Order Provider: TANA CORONADO PROCEDURES: Vascular Report: Venous Duplex imaging was performed in the left upper extremity. Theinternal jugular, subclavian and axillary veins were evaluated for patency, spontaneity andphasicity with Doppler, compression and augmentation maneuvers. The brachial, basilic andcephalic veins were also evaluated with compression maneuvers. INDICATIONS: LUE swelling, erythema. FINDINGS: Performing Hosiery Knitter: Halley Castillo RVT. Left: Venous Doppler signals [...] MD FACS 10/22/2024 9:31:18 PM CDT Result [facility] Tana Coronado MD IMG US PROCEDURES Fi nal Result * POCT glucose (10/22/2024 12:21 PM CDT) Glucose, POC 94 70 - 199 mg/dL Blood 10/22/2024 12:2 1 PM CDT 10/22/2024 12:21 PM CDT Result [facility] Tana Coronado MD LAB POCT ORDERABLES - DEVICE Final Result Performing Organization Address [facility] Co de Phone Number [facility] Department [place] [address] * POCT glucose (10/22/2024 7:14 AM CDT) Glucose, POC 73 70 - 199 mg/dL Blood 10/22/2024 7:14 AM CDT 10/22/2024 7:14 AM CDT Result [facility] Tana Coronado MD LAB POCT ORDERABLES - DEVICE Final Result Performing Organization Address [facility] Co de Phone Number [facility] Department [place] [address] * Stool culture Stool Rectum (10/22/2024 6:46 AM CDT) Direct Specimen Exam Shiga Toxin Testing: Antigen detection assay for Shiga-toxin NEGATIVE for Shiga Toxin 1 and Shiga Toxin 2. Report Final Report: No growth of enteric bacterial pathogens [facility] Stool (Rectum) 10/22/2024 6: 46 AM CDT 10/22/2024 7:57 AM CDT Narrative [facility] - 10/26/2024 9:59 AM CDT Testing performed by [facility] ([phone]). Routine stool cultures include procedures to detect Salmonella, Shigella, Edwardsiella, Aeromonas, Pleisiomonas, Campylobacter, Yersinia, E. coli O157, and Shiga-like toxins. Vibrio is cultured only upon special request. If Vibrio is suspected, please call the laboratory at [phone]. Interpretive data was last updated August 22, 2016. us Jessi Briggs MD LAB MICROBIOLOG Y - GENERAL ORDERABLES Final Result [facility] Department [place] [address] * eGFR (10/22/2024 2:51 AM CDT) eGFR [...] ORDER SHANT Final Result Performing Organization Address [facility] de Phone Number [facility]ien [facility] [employer] [facility] [place] [address] * aPTT (10/22/2024 2:51 AM CDT) aPTT [...] ORDER SHANT Final Result Performing Organization Address [facility] [place] [address] * (ABNORMAL) Protime-INR (10/22/2024 2:51 AM CDT) PT 14.9(H) 9.7 - 13.0 sec INR 1.37(H) 0.90 - 1.20 [facility] Comment: Interpretive data Oral anticoagulant therapeutic ranges: Venous thromboembolism prophylaxis or treatment: 2.0-3.0 CARDIOLOGY Standard range: 2.0-3.0 High-intensity range: 2.5-3.5 Refer to indication-specific guidelines for appropriate target ranges for prosthetic heart valve replacement. Current interpretive data was last revised on 2019. Blood 10/22/2024 2:51 AM CDT 10/22/2024 3:17 AM CDT Jessi Briggs MD LAB BLOOD ORDER SHANT Final Result Performing Organization Address [facility] de Phone Number [facility] [place] [address] * Uric acid (10/22/2024 2:51 AM CDT) Pathologist [facility] Uric acid 3.6 2.5 - 7.0 mg/dL Blood 10/22/2024 2:51 AM CDT 10/22/2024 3:19 AM CDT Narrative [facility] - 10/22/2024 3:48 AM CDT Monday and only. Morning draw. . Jessi Briggs MD LAB BLOOD ORDER SHANT Final Result [facility] [place] [address] * Phosphorus (10/22/2024 2:51 AM CDT) Pathologist [facility] Phosphorus, pl 2.3 2.3 - 4.5 mg/dL Blood 10/22/2024 2:51 AM CDT 10/22/2024 3:19 AM CDT Jessi Briggs MD LAB BLOOD ORDER SHANT Final Result Performing Organization Address City/[facility]/ZIP Co de Phone Number [facility] [place] [address] * Lactate dehydrogenase (LD) (10/22/2024 2:51 AM CDT) [facility] Lactate dehydrogenase (LDH) 185 100 - 250 Units/L Blood 10/22/2024 2:51 AM CDT 10/22/2024 3:19 AM CDT Narrative [facility] - 10/22/2024 3:48 AM CDT Monday and only. Morning draw. Jessi Briggs MD LAB BLOOD ORDER SHANT Final Result [facility] [place] [address] * (ABNORMAL) Comprehensive metabolic panel (10/22/2024 2:51 AM CDT) Sodium 136 135 - 145 mmol/L Potassium, pl 3.7 3.3 - 4.9 mmol/L [facility] Chloride 102 97 - 110 mmol/L [facility] CO2 27 22 - 32 mmol/L [facility] Anion gap 7 2 - 15 mmol/L [facility] BUN 9 6 - 25 mg/dL [facility] Creatinine 0.64 0.60 - 1.10 mg/dL [facility] Glucose 107 70 - 199 mg/dL [facility] Comment: Interpretive Data Fasting glucose >/= [...] 2022. Calcium 8.6 8.5 - 10.3 mg/dL [facility] Bilirubin, total 0.8 0.1 - 1.2 mg/dL [facility] Protein, pl 5.3(L) 6.5 - 8.5 g/dL [facility] Albumin 2.8(L) 3.5 - 5.0 g/dL [facility] Alk phos 186(H) 40 - 130 Units/L [facility] ALT 13 7 - 45 Units/L [facility] AST 16 10 - 45 Units/L [facility] Blood 10/22/2024 2:51 AM CDT 10/22/2024 3:19 AM CDT Jessi Briggs MD LAB BLOOD ORDER SHANT Final Result [facility] Department [place] [address] * Type and screen (10/22/2024 2:50 AM CDT) Brigitte, indirect Negative ABO Rh O Negative [facility] Blood 10/22/2024 2:50 AM CDT 10/22/2024 3:14 AM CDT Narrative [facility] - 10/22/2024 4:09 AM CDT Has the patient had Daratumumab or Isatuximab in the past 6 months?->Unknown Jessi Briggs MD LAB BLOOD BANK TEST ORDERABLES Final Result Performing Organization Address City/[facility] [place] [address] * POCT glucose (10/22/2024 2:48 AM CDT) Glucose, POC 77 70 - 199 mg/dL Blood 10/22/2024 2:48 AM CDT 10/22/2024 2:48 AM CDT Kalli Cox MD LAB POCT ORDERABLES - DEV ICE Final Result Performing Organization Address [facility] Co de Phone Number [facility] Department of [employer] [facility] [place] [address] * (ABNORMAL) POCT glucose (10/22/2024 2:47 AM CDT) Glucose, POC 60(L) 70 - 199 mg/dL Blood 10/22/2024 2:47 AM CDT 10/22/2024 2:47 AM CDT Kalli Cox MD LAB POCT ORDERABLES - DEV ICE Final Result Performing Organization Address [facility] Co de Phone Number [facility] [place] [address] * (ABNORMAL) Differential, auto (10/22/2024 2:30 AM CDT) Neutrophil abs 2.33 1.50 - 6.50 K/cumm Imm gran abs 0.02 0.00 - 0.10 K/cumm [facility] Lymphocyte abs 0.73(L) 0.80 - 3.30 K/cumm [facility] Monocyte abs 0.38 0.20 - 0.80 K/cumm [facility] Eosinophil abs 0.02 0.00 - 0.50 K/cumm [facility] Basophil abs 0.00 0.00 - 0.10 K/cumm [facility] Neutrophil pct 66.9 % [facility] Comment: Interpretive Data Percent cell count reference ranges are not reported, since discordance with absolute values may lead to misinterpretation of CBC data. Current Interpretive Data was last revised on 2017. Imm gran pct 0.6 % [facility] Comment: Interpretive Data Percent cell count reference ranges are not reported, since discordance with absolute values may lead to misinterpretation of CBC data. Current Interpretive Data was last revised on 2017. Lymphocyte pct 21.0 % [facility] Comment: Interpretive Data Percent cell count reference ranges are not reported, since discordance with absolute values may lead to misinterpretation of CBC data. Current Interpretive Data was last revised on 2017. Monocyte pct 10.9 % [facility] Comment: Interpretive Data Percent cell count reference ranges are not reported, since discordance with absolute values may lead to misinterpretation of CBC data. Current Interpretive Data was last revised on 2017. Eosinophil pct 0.6 % [facility] Comment: Interpretive Data Percent cell count reference ranges are not reported, since discordance with absolute values may lead to misinterpretation of CBC data. Current Interpretive Data was last revised on 2017. Basophil pct 0.0 % [facility] Comment: Interpretive Data Percent cell count reference ranges are not reported, since discordance with absolute values may lead to misinterpretation of CBC data. Current Interpretive Data was last revised on 2017. Blood 10/22/2024 2:30 AM CDT 10/22/2024 3:19 AM CDT Jessi Briggs MD LAB BLOOD ORDER SHANT Final Result [facility] Department [place] [address] * (ABNORMAL) CBC with auto differential (10/22/2024 2:30 AM CDT) [facility] WBC 3.48(L) 3.80 - 9.90 K/cumm Hgb 7.9(L) 11.9 - 15.5 g/dL [facility] Hct 24.5(L) 35.6 - 45.5 % [facility] Plt 111(L) 150 - 400 K/cumm [facility] MPV 10.7 9.1 - 12.3 fL [facility] RBC 2.73(L) 3.90 - 5.20 M/cumm [facility] MCV 89.7 81.3 - 96.4 fL [facility] MCH 28.9 27.1 - 33.3 pg [facility] MCHC 32.2(L) 32.3 - 35.7 g/dL [facility] RDW CV 15.0(H) 11.1 - 14.9 % [facility] RDW SD 49.4(H) 35.7 - 48.1 fL [facility] NRBC abs 0.00 0.00 - 0.01 K/cumm [facility] Blood 10/22/2024 2:30 AM CDT 10/22/2024 3:19 AM CDT Jessi Briggs MD LAB BLOOD ORDER SHANT Final Result [facility] Department [place] [address] * eGFR (10/21/2024 9:15 PM CDT) Pathologist [facility] eGFR >90 >=60 mL/min/1. 73 m2 Comment: [...] 9:15 PM CDT 10/21/2024 9:32 PM CDT [facility] Sima Briggs MD LAB BLOOD ORDER SHANT Final Result [facility] Department [place] [address] * (ABNORMAL) Differential, auto (10/21/2024 9:15 PM CDT) Neutrophil abs 2.53 1.50 - 6.50 K/cumm Imm gran abs 0.03 0.00 - 0.10 K/cumm [facility] Lymphocyte abs 0.69(L) 0.80 - 3.30 K/cumm [facility] Monocyte abs 0.27 0.20 - 0.80 K/cumm [facility] Eosinophil abs 0.01 0.00 - 0.50 K/cumm [facility] Basophil abs 0.00 0.00 - 0.10 K/cumm [facility] Neutrophil pct 71.8 % [facility] Comment: Interpretive Data Percent cell count reference ranges are not reported, since discordance with absolute values may lead to misinterpretation of CBC data. Current Interpretive Data was last revised on 2017. Imm gran pct 0.8 % [facility] Comment: Interpretive Data Percent cell count reference ranges are not reported, since discordance with absolute values may lead to misinterpretation of CBC data. Current Interpretive Data was last revised on 2017. Lymphocyte pct 19.5 % [facility] Comment: Interpretive Data Percent cell count reference ranges are not reported, since discordance with absolute values may lead to misinterpretation of CBC data. Current Interpretive Data was last revised on 2017. Monocyte pct 7.6 % [facility] Comment: Interpretive Data Percent cell count reference ranges are not reported, since discordance with absolute values may lead to misinterpretation of CBC data. Current Interpretive Data was last revised on 2017. Eosinophil pct 0.3 % [facility] Comment: Interpretive Data Percent cell count reference ranges are not reported, since discordance with absolute values may lead to misinterpretation of CBC data. Current Interpretive Data was last revised on 2017. Basophil pct 0.0 % [facility] Comment: Interpretive Data Percent cell count reference ranges are not reported, since discordance with absolute values may lead to misinterpretation of CBC data. Current Interpretive Data was last revised on 2017. Blood 10/21/2024 9:15 PM CDT 10/21/2024 9:32 PM CDT Jessi Briggs MD LAB BLOOD ORDER SHANT Final Result [facility] Department [place] [address] * (ABNORMAL) CBC with auto differential (10/21/2024 9:15 PM CDT) WBC 3.53(L) 3.80 - 9.90 K/cumm Hgb 8.2(L) 11.9 - 15.5 g/dL [facility] Hct 24.5(L) 35.6 - 45.5 % [facility] Plt 114(L) 150 - 400 K/cumm [facility] MPV 10.2 9.1 - 12.3 fL [facility] RBC 2.79(L) 3.90 - 5.20 M/cumm [facility] MCV 87.8 81.3 - 96.4 fL [facility] MCH 29.4 27.1 - 33.3 pg [facility] MCHC 33.5 32.3 - 35.7 g/dL [facility] RDW CV 14.8 11.1 - 14.9 % [facility] RDW SD 48.0 35.7 - 48.1 fL [facility] NRBC abs 0.00 0.00 - 0.01 K/cumm [facility] Blood 10/21/2024 9:15 PM CDT 10/21/2024 9:32 PM CDT Jessi Briggs MD LAB BLOOD ORDER SHANT Final Result Performing Organization Address City/[facility]/ZIP Co de Phone Number [facility] Department [place] [address] * (ABNORMAL) Infection Prevention MRSA Only (Staphylococcus aureus) Culture Nasal (10/21/2024 9:15 PMCDT) Report Final Report: Methicillin-resist ant Staphylococcus aureus (.) Organism METHICILLIN-RESIST ANT STAPHYLOCOCCUS AUREUS [facility] Nasal 10/21/2024 9:15 PM CDT 10/21/2024 9:33 PM CDT Narrative [facility] - 10/24/2024 11:16 AM CDT Testing performed by [facility] Microbiology Laboratory ([phone]). Jessi Briggs MD LAB MICROBIOLOG Y - GENERAL ORDERABLES Final Result Performing Organization Address City/[facility]/ZIP Co de Phone Number [facility] Department of [employer] [address] * (ABNORMAL) Phosphorus (10/21/2024 9:15 PM CDT) Phosphorus, pl 1.9(L) 2.3 - 4.5 mg/dL Blood 10/21/2024 9:15 PM CDT 10/21/2024 9:32 PM CDT Jessi Briggs MD LAB BLOOD ORDER SHANT Final Result Performing Organization Address City/[facility] Co de Phone Number [facility] [place] [address] * Magnesium (10/21/2024 9:15 PM CDT) Pathologist [facility] Magnesium 1.6 1.4 - 2.5 mg/dL Blood 10/21/2024 9:15 PM CDT 10/21/2024 9:32 PM CDT Jessi Briggs MD LAB BLOOD ORDER SHANT Final Result Performing Organization Address [facility] de Phone Number [facility] Department [place] [address] * (ABNORMAL) Comprehensive metabolic panel (10/21/2024 9:15 PM CDT) Pathologist [facility] Sodium 137 135 - 145 mmol/L Potassium, pl 3.5 3.3 - 4.9 mmol/L [facility] Chloride 103 97 - 110 mmol/L [facility] CO2 27 22 - 32 mmol/L [facility] Anion gap 7 2 - 15 mmol/L [facility] BUN 9 6 - 25 mg/dL [facility] Creatinine 0.66 0.60 - 1.10 mg/dL [facility] Glucose 98 70 - 199 mg/dL [facility] Comment: Interpretive Data Fasting glucose >/= [...] 2022. Calcium 8.7 8.5 - 10.3 mg/dL [facility] Bilirubin, total 0.9 0.1 - 1.2 mg/dL [facility] Protein, pl 5.4(L) 6.5 - 8.5 g/dL [facility] Albumin 2.8(L) 3.5 - 5.0 g/dL [facility] Alk phos 191(H) 40 - 130 Units/L [facility] ALT 14 7 - 45 Units/L [facility] AST 17 10 - 45 Units/L [facility] Blood 10/21/2024 9:15 PM CDT 10/21/2024 9:32 PM CDT Jessi Briggs MD LAB BLOOD ORDER SHANT Final Result Performing Organization Address City/[facility]/ZIP Co de Phone Number [facility] Department of [employer] [place] [address] * POCT glucose (10/21/2024 8:35 PM CDT) [facility] Glucose, POC 104 70 - 199 mg/dL Blood 10/21/2024 8:35 PM CDT 10/21/2024 8:35 PM CDT Kalli Cox MD LAB POCT ORDERABLES - DEV ICE Final Result [facility] Department of [employer] [place] [address] * ECG 12 lead (10/21/2024 8:17 PM CDT) Ventricular Rate EKG/Min 85 BPM [facility] Atrial Rate 85 BPM [facility] [place]-Interval (MSEC) 166 ms [facility] QRS-Interval (MSEC) 96 ms [facility] QT-Interval (MSEC) 352 ms [facility] QTc 418 ms [facility] P [place] 65 degrees [facility] R [place] 30 degrees [facility] T [place] 21 degrees [facility] Diagnosis Normal sinus rhythm Low voltage QRS Nonspecific T wave abnormality Abnormal ECG No previous ECGs available Confirmed by Dorinda Hong MD ([id number]) on 10/23/2024 6:21:31 AM [facility] 10/21/2024 8:17 PM CDT 10/23/2024 6:21 AM CDT [facility] Sima Briggs MD ECG ORDERABLES Final Result [facility] * Vein Duplex Lower Extremity Bilateral Complete (10/21/2024 4:02 PM CDT) Anatomical Region Laterality Modality Vascular Bilateral Ultrasound 10/21/2024 12:2 5 PM CDT Narrative 10/22/2024 11:07 AM CDT [facility] - Department of Vascular Surgery, Vascular Laboratory [address] [place] [address] Lower Extremity Venous Ultrasound Report Patient Name: SUSANNAH CAMARGO : 1950 (73y 9m) Study Date: 10/21/2024 12:25:49 PM Gender: F Tech: Location: [facility] Ref Provider: JACQUELYN CINTRON Quality: Adequate Order [...] and pain; r/o DVT - FINDINGS: Performing Hosiery Knitter: Taylor Lauren RVT. Bilateral: Venous Doppler signals [...] vein obstruction. HISTORY: Pancreatic Adenocarcinoma presents to [facility] from home for evaluation with [...] Procedure Note Dano Gleason MD - 10/22/2024 [employer] - Department of Vascular Surgery,Vascular Laboratory [address] [place] [id number] Lower Extremity Venous Ultrasound Report Patient Name: SUSANNAH CAMARGO : 1950 (73y 9m) Study Date: 10/21/2024 12:25:49 PM Gender: F Tech: Location: [facility] Ref Provider: JACQUELYN CINTRON Quality: Adequate Order [...] and pain; r/o DVT - FINDINGS: Performing Hosiery Knitter: Taylor Lauren RVT. Bilateral: Venous Doppler signals [...] calf veinobstruction. HISTORY: Pancreatic Adenocarcinoma presents to [facility] from home for evaluation withdaughters [...] FACS 10/22/2024 10:02:18 AM CDT Jacquelyn Cintron EXECUTIVE RELATIONS SPECIALIST IMG US PROCEDURES Final Re sult * Transfuse RBC (10/21/2024 3:15 PM CDT) Blood Jacquelyn Cintron NP BLOOD TRANSFUSION ORDERABL ES Final Result Performing Organization Address [facility]/ZIP Co de Phone Number [facility] of [employer] [place] [address] * Check Sample (10/21/2024 11:17 AM CDT) ABO Rh O Negative [facility] HCLL OTHER 10/21/2024 11:1 7 AM CDT 10/21/2024 11:26 AM CDT Kalli Cox MD LAB BLOOD ORDERABLES Gail l Result Performing Organization Address [facility] Co de Phone Number [facility] [employer] [facility] [place] [address] [facility] * Type and screen (10/21/2024 9:36 AM CDT) ABO Rh O Negative Brigitte, indirect Negative [facility] Blood 10/21/2024 9:36 AM CDT 10/21/2024 9:52 AM CDT Narrative [facility] - 10/21/2024 10:57 AM CDT Has the patient had Daratumumab or Isatuximab in the past 6 months?->Unknown Jacquelyn Cintron NP LAB BLOOD BANK TEST ORDERA BLES Final Result Performing Organization Address [facility] Co de Phone Number [facility] of [employer] [place] [address] * Prepare RBC: 1 Units (10/21/2024 9:27 AM CDT) [facility] Product code [id number] Unit Number [id number] [facility] Product Blood Type ONEG [facility] Dispense Status PRESUMED TRANSFUSED [facility] Blood 10/21/2024 9:27 AM CDT 10/21/2024 9:28 AM CDT Narrative [facility] - 10/22/2024 12:55 AM CDT Are special requirements needed? (All products are leukoreduced and CMV- safe)- >No Date required:-[id number] LRRBC # of [id number] Reasons:-Hgb <7 g/dL} Jacquelyn Cintron NP BLOOD BANK PRODUCT ORDERAB LES Final Result [facility] Department [place] [address] * eGFR (10/21/2024 6:50 AM CDT) [facility] eGFR >90 >=60 mL/min/1. 73 m2 Comment: [...] 7:13 AM CDT us Theresa Cavazos Winsome EXECUTIVE RELATIONS SPECIALIST LAB BLOOD ORDERABLES Final Result [facility] Department [place] [address] * (ABNORMAL) Differential, auto (10/21/2024 6:50 AM CDT) Neutrophil abs 1.77 1.50 - 6.50 K/cumm Imm gran abs 0.01 0.00 - 0.10 K/cumm [facility] Lymphocyte abs 0.54(L) 0.80 - 3.30 K/cumm [facility] Monocyte abs 0.18(L) 0.20 - 0.80 K/cumm [facility] Eosinophil abs 0.02 0.00 - 0.50 K/cumm [facility] Basophil abs 0.01 0.00 - 0.10 K/cumm [facility] Neutrophil pct 70.0 % [facility] Comment: Interpretive Data Percent cell count reference ranges are not reported, since discordance with absolute values may lead to misinterpretation of CBC data. Current Interpretive Data was last revised on 2017. Imm gran pct 0.4 % [facility] Comment: Interpretive Data Percent cell count reference ranges are not reported, since discordance with absolute values may lead to misinterpretation of CBC data. Current Interpretive Data was last revised on 2017. Lymphocyte pct 21.3 % [facility] Comment: Interpretive Data Percent cell count reference ranges are not reported, since discordance with absolute values may lead to misinterpretation of CBC data. Current Interpretive Data was last revised on 2017. Monocyte pct 7.1 % [facility] Comment: Interpretive Data Percent cell count reference ranges are not reported, since discordance with absolute values may lead to misinterpretation of CBC data. Current Interpretive Data was last revised on 2017. Eosinophil pct 0.8 % [facility] Comment: Interpretive Data Percent cell count reference ranges are not reported, since discordance with absolute values may lead to misinterpretation of CBC data. Current Interpretive Data was last revised on 2017. Basophil pct 0.4 % [facility] Comment: Interpretive Data Percent cell count reference ranges are not reported, since discordance with absolute values may lead to misinterpretation of CBC data. Current Interpretive Data was last revised on 2017. Blood 10/21/2024 6:50 AM CDT 10/21/2024 7:00 AM CDT Theresa Schumacher NP LAB BLOOD ORDERABLES Final Result Performing Organization Address City/[facility]/ZIP Co de Phone Number [facility] Department of [employer] [place] [address] * (ABNORMAL) CBC with auto differential (10/21/2024 6:50 AM CDT) WBC 2.53(L) 3.80 - 9.90 K/cumm Hgb 6.7(L) 11.9 - 15.5 g/dL [facility] Hct 20.7(L) 35.6 - 45.5 % [facility] Plt 110(L) 150 - 400 K/cumm [facility] MPV 10.5 9.1 - 12.3 fL [facility] RBC 2.31(L) 3.90 - 5.20 M/cumm [facility] MCV 89.6 81.3 - 96.4 fL [facility] MCH 29.0 27.1 - 33.3 pg [facility] MCHC 32.4 32.3 - 35.7 g/dL [facility] RDW CV 14.9 11.1 - 14.9 % [facility] RDW SD 48.6(H) 35.7 - 48.1 fL [facility] NRBC abs 0.00 0.00 - 0.01 K/cumm [facility] Blood 10/21/2024 6:50 AM CDT 10/21/2024 7:00 AM CDT Theresa Schumacher NP LAB BLOOD ORDERABLES Final Result Performing Organization Address City/[facility]/ZIP Co de Phone Number [facility] Department [place] [address] * (ABNORMAL) Comprehensive metabolic panel (10/21/2024 6:50 AM CDT) Sodium 137 135 - 145 mmol/L Potassium, pl 3.4 3.3 - 4.9 mmol/L [facility] Chloride 104 97 - 110 mmol/L [facility] CO2 28 22 - 32 mmol/L [facility] Anion gap 5 2 - 15 mmol/L [facility] BUN 11 6 - 25 mg/dL [facility] Creatinine 0.65 0.60 - 1.10 mg/dL [facility] Glucose 108 70 - 199 mg/dL [facility] Comment: Interpretive Data Fasting glucose >/= [...] 2022. Calcium 8.2(L) 8.5 - 10.3 mg/dL [facility] Bilirubin, total 0.5 0.1 - 1.2 mg/dL [facility] Protein, pl 5.0(L) 6.5 - 8.5 g/dL [facility] Albumin 2.6(L) 3.5 - 5.0 g/dL [facility] Alk phos 182(H) 40 - 130 Units/L [facility] ALT 13 7 - 45 Units/L [facility] AST 16 10 - 45 Units/L [facility] Blood 10/21/2024 6:50 AM CDT 10/21/2024 7:00 AM CDT us Theresa Schumacher NP LAB BLOOD ORDERABLES Final Result [facility] Department [place] [address] * Urinalysis reflex to microscopic and culture Urine, clean voided (10/21/2024 12:16 AM CDT) Color, ur Straw Yellow Clarity, ur Clear Clear [facility] Specific gravity, ur 1.013 1.003 - 1.030 [facility] pH, urine 6.0 [facility] Comment: Interpretive Data U rine pH is affected by diet, medications, systemic acid-base disturbances, and renal tubular function. pH may affect urinary stone formation. For example, urine pH below 6.0 may help reduce the tendency for calcium phosphate stones and pH greater than 6.0 may reduce the tendency for uric acid stone formation. Source: [facility] [employer] Current Interpretive Data was last revised on 2017 Protein, ur ql Trace Negative [facility] Glucose, ur ql Negative Negative [facility] Ketones, ur Negative Negative [facility] Bilirubin, ur Negative Negative [facility] Blood, ur Negative Negative [facility] Urobilinogen, ur <2.0 <2.0 mg/dL [facility] Nitrite, ur Negative Negative [facility] Leukocyte esterase, ur Negative Negative [facility] UA reflex comment Reflex conditions for microscopic UA and culture not met. [facility] Urine, clean voided 10/21/2024 12:16 AM CDT 10/21/2024 12:34 AM CDT Theresa Schumacher NP LAB MICROBIOLOGY - G ENERAL ORDERABLES Final Result [facility] Department [place] [address] * (ABNORMAL) Protime-INR (10/21/2024 12:16 AM CDT) PT 17.4(H) 9.7 - 13.0 sec INR 1.60(H) 0.90 - 1.20 [facility] Comment: Interpretive data Oral anticoagulant therapeutic [...] prior to rivaroxaban initiation us Theresa Schumacher EXECUTIVE RELATIONS SPECIALIST LAB BLOOD ORDERABLES Final Result [facility] Department [place] [address] * X-ray chest 2 views (10/21/2024 12:07 [...] by: Aubrey Grigsby M.D. us Theresa Schumacher EXECUTIVE RELATIONS SPECIALIST IMG XR PROCEDURES Fi nal Result * POC Blood Gas and Chemistries, Arterial - (10/20/2024 11:05 PM CDT) Lactate POC 0.9 0.7 - 2.0 mmol/L Blood 10/20/2024 11:0 5 PM CDT 10/20/2024 11:05 PM CDT Kalli Cox MD LAB POCT ORDERABLES - DEV ICE Final Result [facility] Department [place] [address] * eGFR (10/20/2024 10:38 PM CDT) eGFR [...] NP LAB BLOOD ORDERABLES Final Result [facility] [place] [address] * (ABNORMAL) Differential, auto (10/20/2024 10:38 PM [...] CDT 10/20/2024 11:22 PM CDT Theresa Schumacher EXECUTIVE RELATIONS SPECIALIST LAB BLOOD ORDERABLES Final Result [facility] Department [place] [address] * Respiratory pathogen panel Nasopharyngeal (10/20/2024 10:38 PM CDT) Pathologist [facility] Influenza A RNA Not Detected Not Detected Influenza B RNA Not Detected Not Detected [facility] RSV RNA Not Detected Not Detected [facility] COVID-19 RNA Not Detected Not Detected [facility] Coronavirus 229E RNA Not Detected Not Detected [facility] Coronavirus HKU1 RNA Not Detected Not Detected [facility] Coronavirus NL63 RNA Not Detected Not Detected [facility] Coronavirus OC43 RNA Not Detected Not Detected [facility] Adenovirus DNA Not Detected Not Detected [facility] Metapneumovirus RNA Not Detected Not Detected [facility] Rhinovirus/Enterov irus RNA Not Detected Not Detected [facility] Parainfluenza 1 RNA Not Detected Not Detected [facility] Parainfluenza 2 RNA Not Detected Not Detected [facility] Parainfluenza 3 RNA Not Detected Not Detected [facility] Parainfluenza 4 RNA Not Detected Not Detected [facility] B. pertussis DNA Not Detected Not Detected [facility] B. parapertussis DNA Not Detected Not Detected [facility] C. pneumoniae DNA Not Detected Not Detected [facility] M. pneumoniae DNA Not Detected Not Detected [facility] Nasopharyngeal 10/20/2024 10 :38 PM CDT 10/20/2024 11:47 PM CDT Narrative [facility] - 10/21/2024 12:44 AM CDT Is the Patient experiencing symptoms consistent with COVID?->Yes Surveillance testing for transplant patient?->No Interpretive Data The ChiScan FilmArray Respiratory Panel (RP2.1) assay is a [...] assay has FDA clearance for testing of EXECUTIVE RELATIONS SPECIALIST swabs. The performance of additional specimen types has been assessed by the performing laboratory. The performance characteristics of this assay have been determined by [facility] Molecular Infectious Disease Laboratory. Current interpretive data was last revised on 22. Theresa Schumacher EXECUTIVE RELATIONS SPECIALIST LAB MICROBIOLOGY - G ENERAL ORDERABLES Final Result ENRIQUE [facility] Department [place] [address] * (ABNORMAL) CBC with auto differential (10/20/2024 10:38 PM CDT) WBC 3.02(L) 3.80 - 9.90 K/cumm Hgb 7.1(L) 11.9 - 15.5 g/dL [facility] Hct 21.9(L) 35.6 - 45.5 % [facility] Plt 124(L) 150 - 400 K/cumm [facility] MPV 10.5 9.1 - 12.3 fL [facility] RBC 2.46(L) 3.90 - 5.20 M/cumm [facility] MCV 89.0 81.3 - 96.4 fL [facility] MCH 28.9 27.1 - 33.3 pg [facility] MCHC 32.4 32.3 - 35.7 g/dL [facility] RDW CV 14.7 11.1 - 14.9 % [facility] RDW SD 47.4 35.7 - 48.1 fL [facility] NRBC abs 0.00 0.00 - 0.01 K/cumm [facility] Blood 10/20/2024 10:3 8 PM CDT 10/20/2024 11:22 PM CDT Theresa Schumacher NP LAB BLOOD ORDERABLES Final Result [facility] Department [place] [address] * Blood culture Blood (10/20/2024 10:38 PM CDT) [facility] Report Final Report: No growth Blood 10/20/2024 10:3 8 PM CDT 10/21/2024 12:22 AM CDT Narrative [facility] - 10/25/2024 7:01 AM CDT From [...] performance characteristics have been verified by the [facility] Microbiology Laboratory. For questions about this culture, contact the Microbiology Laboratory at [phone]. Interpretive data was last revised on 24. Theresa Schumacher LAB MICROBIOLOGY - G [facility] ORDERABLES Final Result [facility] Department [place] [address] * Blood culture Blood (10/20/2024 10:38 PM CDT) Report Final Report: No growth Blood 10/20/2024 10:3 8 PM CDT 10/21/2024 12:12 AM CDT [facility] ENRIQUE [facility] 10/25/2024 7:01 AM CDT [...] performance characteristics have been verified by the [facility] Microbiology Laboratory. For questions about this culture, contact the Microbiology Laboratory at [phone]. Interpretive data was last revised on 24. Theresa Schumacher NP LAB MICROBIOLOGY - G ENERAL ORDERABLES Final Result [facility] Department [place] [address] * (ABNORMAL) Comprehensive metabolic panel (10/20/2024 10:38 PM CDT) Sodium 138 135 - 145 mmol/L Potassium, pl 3.6 3.3 - 4.9 mmol/L [facility] Chloride 104 97 - 110 mmol/L [facility] CO2 26 22 - 32 mmol/L [facility] Anion gap 8 2 - 15 mmol/L [facility] BUN 13 6 - 25 mg/dL [facility] Creatinine 0.74 0.60 - 1.10 mg/dL [facility] Glucose 100 70 - 199 mg/dL [facility] Comment: Interpretive Data Fasting glucose >/= [...] 2022. Calcium 8.7 8.5 - 10.3 mg/dL [facility] Bilirubin, total 0.7 0.1 - 1.2 mg/dL [facility] Protein, pl 5.2(L) 6.5 - 8.5 g/dL [facility] Albumin 2.8(L) 3.5 - 5.0 g/dL [facility] Alk phos 195(H) 40 - 130 Units/L [facility] ALT 13 7 - 45 Units/L [facility] AST 18 10 - 45 Units/L [facility] Blood 10/20/2024 10:3 8 PM CDT 10/20/2024 11:23 PM CDT us Theresa Schumacher EXECUTIVE RELATIONS SPECIALIST LAB BLOOD ORDERABLES Final Result [facility] Department [place] [address] * eGFR (10/17/2024 10:06 AM CDT) eGFR [...] was last reviewed 2021. Testing performed by: [facility], [address] [place] [address] Blood 10/17/2024 10:0 6 AM CDT 10/17/2024 10:26 AM CDT us Kalli Cox MD LAB BLOOD ORDERABLES Gail l Result [facility] [address] [facility]. Department of Laboratories [place], [place] [id number] * Differential, auto (10/17/2024 10:06 AM CDT) Neutrophil abs 3.45 1.50 - 6.50 K/cumm Comment:Testing performed by : [facility], [address] [place] [address] Imm gran abs 0.02 0.00 - 0.10 K/cumm CERNER BJW[facility] Comment:Testing performed by : [facility] 2, [address] [place] [address] Lymphocyte abs 1.10 0.80 - 3.30 K/cumm CERNER BJWCH Comment:Testing performed by : [facility], [facility], [address] [place] [address] Monocyte abs 0.28 0.20 - 0.80 K/cumm CERNER BJW[facility] Comment:Testing performed by : [facility] 2, [address] [place] [address] Eosinophil abs 0.05 0.00 - 0.50 K/cumm CERNER BJWCH Comment:Testing performed by : [facility] 2, [address] [place] [address] Basophil abs 0.01 0.00 - 0.10 K/cumm CERNER BJWCH Comment:Testing performed by : [facility] 2, [address] [place] [address] Neutrophil pct 70.3 % CERNER [facility] Comment: Interpretive Data Percent cell count reference ranges are not reported, since discordance with absolute values may lead to misinterpretation of CBC data. Current Interpretive Data was last revised on 2017. Testing performed by: [facility] 2, [address] [place] [address] Imm gran pct 0.4 % CERNER [facility] Comment: Interpretive Data Percent cell count reference ranges are not reported, since discordance with absolute values may lead to misinterpretation of CBC data. Current Interpretive Data was last revised on 2017. Testing performed by: [facility], [facility], [address] [place] [address] Lymphocyte pct 22.4 % ENRIQUE TORRES Comment: Interpretive Data Percent cell count reference ranges are not reported, since discordance with absolute values may lead to misinterpretation of CBC data. Current Interpretive Data was last revised on 2017. Testing performed by: [facility], [facility], [address] [place] [address] Monocyte pct 5.7 % ENRIQUE TORRES Comment: Interpretive Data Percent cell count reference ranges are not reported, since discordance with absolute values may lead to misinterpretation of CBC data. Current Interpretive Data was last revised on 2017. Testing performed by: [facility], [facility], [address] [place] [address] Eosinophil pct 1.0 % ENRIQUE TORRES Comment: Interpretive Data Percent cell count reference ranges are not reported, since discordance with absolute values may lead to misinterpretation of CBC data. Current Interpretive Data was last revised on 2017. Testing performed by: [facility], [facility], [address] [place] [address] Basophil pct 0.2 % ENRIQUE TORRES Comment: Interpretive Data Percent cell count reference ranges are not reported, since discordance with absolute values may lead to misinterpretation of CBC data. Current Interpretive Data was last revised on 2017. Testing performed by: [facility], [facility], [address] [place] [address] Blood 10/17/2024 10:0 6 AM CDT 10/17/2024 10:09 AM CDT us Moh'Maurisio Cox MD LAB BLOOD ORDERABLES Gail l Result [facility] [address] [facility] Department [place] [address] * (ABNORMAL) CBC with auto differential (10/17/2024 10:06 AM CDT) WBC 4.91 3.80 - 9.90 K/cumm Comment:Testing performed by : [place] [address], [address] [place] [address] Hgb 9.0(L) 11.9 - 15.5 g/dL ENRIQUE BETANCOURTWCH Comment:Testing performed by : [place] [address], [address] [place] [address] Hct 28.8(L) 35.6 - 45.5 % ENRIQUE BRADFORDCH Comment:Testing performed by : [place] [address], [place] [address] Plt 202 150 - 400 K/cumm ENRIQUE BRADFORDCH Comment:Testing performed by : [place] [address], [address] [place] [address] MPV 9.2 9.1 - 12.3 fL ENRIQUE TORRES Comment:Testing performed by : [place] [address], [address] [place] [address] RBC 3.15(L) 3.90 - 5.20 M/cumm ENRIQUE BRADFORDCH Comment:Testing performed by : [place] [address], [address] [place] [address] MCV 91.4 81.3 - 96.4 fL ENRIQUE BJWCH Comment:Testing performed by : [place] [address], [address] [place] [address] MCH 28.6 27.1 - 33.3 pg CERMARCELO BETANCOURTWCH Comment:Testing performed by : [place] [address], [address], [place] [address] MCHC 31.3(L) 32.3 - 35.7 g/dL ENRIQUE B[facility]WCH Comment:Testing performed by : [facility], [facility], [address] [place] [address] RDW CV 15.0(H) 11.1 - 14.9 % ENRIQUE TORRES Comment:Testing performed by : [facility], [facility], [address] [place] [address] RDW SD 50.7(H) 35.7 - 48.1 fL ENRIQUE TORRES Comment:Testing performed by : [facility], [facility], [address] [place] [address] ANC Prelim 3.45 1.50 - 6.50 K/cumm ENRIQUE TORRES Comment: Interpretive Data The rapid ANC is a preliminary automated count and may vary from the final ANC (Neut Abs) reported in the WBC differential that follows. Current interpretive data was last revised 2024. Testing performed by: [facility], [facility], [address] [place] [address] Blood 10/17/2024 10:0 6 AM CDT 10/17/2024 10:09 AM CDT [facility] MD LAB BLOOD ORDERABLES Gail garcia Result ENRIQUE [facility] [address] [address] Department [place] [address] * (ABNORMAL) Comprehensive metabolic panel (10/17/2024 10:06 AM CDT) Sodium 139 135 - 145 mmol/L Comment:Testing performed by : [facility], [address] [place] [address] Potassium, pl 4.0 3.3 - 4.9 mmol/L ENRIQUE TORRES Comment:Testing performed by : [facility], [address] [place] [address] Chloride 104 97 - 110 mmol/L ENRIQUE TORRES Comment:Testing performed by : [facility], [address], [place] [address] CO2 28 22 - 32 mmol/L CERNER BJW[facility] Comment:Testing performed by : [facility], [address], [place] [address] Anion gap 7 2 - 15 mmol/L CERNER B[facility] Comment:Testing performed by : [facility], [address], [place] [address] BUN 15 6 - 25 mg/dL CERNER B[facility] Comment:Testing performed by : [facility], [address], [place] [address] Creatinine 0.70 0.60 - 1.10 mg/dL CERNER B[facility] Comment:Testing performed by : [facility], [address], [place] [address] Glucose 90 70 - 199 mg/dL CERNER [...] was last revised 2022. Testing performed by: [facility], [address], [place] [address] Calcium 8.8 8.5 - 10.3 mg/dL CERNER BJW[facility] Comment:Testing performed by : [facility], [address], [place] [address] Bilirubin, total 0.6 0.1 - 1.2 mg/dL CERNER B[facility] Comment:Testing performed by : [facility], [address], [place] [address] Protein, pl 5.8(L) 6.5 - 8.5 g/dL CERNER B[facility] Comment:Testing performed by : [facility], [address], [place] [address] Albumin 3.3(L) 3.5 - 5.0 g/dL CERMARCELO BJW Comment:Testing performed by : [facility], [address], [place] [address] Alk phos 325(H) 40 - 130 Units/L CERMARCELO BJWCH Comment:Testing performed by : [facility], [address], [place] [address] ALT 29 7 - 45 Units/L CERMARCELO BJWCH Comment:Testing performed by : [facility], [address], [place] [address] AST 27 10 - 45 Units/L CERMARCELO BJWCH Comment:Testing performed by : [facility], [address], [place] [address] Blood 10/17/2024 10:0 6 AM CDT 10/17/2024 10:26 AM CDT [facility] Cox MD LAB BLOOD ORDERABLES Gail l Result ENRIQUE TORRES [address] [address]. Department [place] [address] * eGFR (10/14/2024 8:30 AM CDT) eGFR [...] was last reviewed 2021. Testing performed by: [facility], [address] [place] [address] Blood 10/14/2024 8:30 AM CDT 10/14/2024 8:54 AM CDT [facility] Cox MD LAB BLOOD ORDERABLES Gail l Result ENRIQUE [facility] [address] [address]. Department [place] [address] * Differential, auto (10/14/2024 8:30 AM CDT) Neutrophil abs 3.00 1.50 - 6.50 K/cumm Comment:Testing performed by : [facility] 2, [address] [place] [address] Imm gran abs 0.00 0.00 - 0.10 K/cumm CERNER BJWCH Comment:Testing performed by : [facility] 2, [address] [place] [address] Lymphocyte abs 1.24 0.80 - 3.30 K/cumm CERMARCELO BJWCH Comment:Testing performed by : [facility] 2, [address] [place] [address] Monocyte abs 0.80 0.20 - 0.80 K/cumm CERMARCELO BJWCH Comment:Testing performed by : [facility] 2, [address] [place] [address] Eosinophil abs 0.12 0.00 - 0.50 K/cumm CERNER BJWCH Comment:Testing performed by : [facility] 2, [address] [place] [address] Basophil abs 0.03 0.00 - 0.10 K/cumm CERNER BJWCH Comment:Testing performed by : [facility] 2, [address] [place] [address] Neutrophil pct 57.8 % CERNER BJWCH Comment: Interpretive Data Percent cell count reference ranges are not reported, since discordance with absolute values may lead to misinterpretation of CBC data. Current Interpretive Data was last revised on 2017. Testing performed by: [facility], [facility], [address] [place] [address] Imm gran pct 0.0 % CERNER BJWCH Comment: Interpretive Data Percent cell count reference ranges are not reported, since discordance with absolute values may lead to misinterpretation of CBC data. Current Interpretive Data was last revised on 2017. Testing performed by: [facility], [facility], [address] [place] [address] Lymphocyte pct 23.9 % CERNER BJW[facility] Comment: Interpretive Data Percent cell count reference ranges are not reported, since discordance with absolute values may lead to misinterpretation of CBC data. Current Interpretive Data was last revised on 2017. Testing performed by: [facility], [facility], [address] [place] [address] Monocyte pct 15.4 % CERNER BJW[facility] Comment: Interpretive Data Percent cell count reference ranges are not reported, since discordance with absolute values may lead to misinterpretation of CBC data. Current Interpretive Data was last revised on 2017. Testing performed by: [facility], [facility], [address] [place] [address] Eosinophil pct 2.3 % CERNER BJWCH Comment: Interpretive Data Percent cell count reference ranges are not reported, since discordance with absolute values may lead to misinterpretation of CBC data. Current Interpretive Data was last revised on 2017. Testing performed by: [facility], [facility], [address] [place] [address] Basophil pct 0.6 % CERNER BJWCH Comment: Interpretive Data Percent cell count reference ranges are not reported, since discordance with absolute values may lead to misinterpretation of CBC data. Current Interpretive Data was last revised on 2017. Testing performed by: [facility], [facility], [address] [place] [address] Blood 10/14/2024 8:30 AM CDT 10/14/2024 8:33 AM CDT Kalli Cox MD LAB BLOOD ORDERABLES Gail l Result [facility] [address] [facility] [place] [address] * (ABNORMAL) CBC with auto differential (10/14/2024 8:30 AM CDT) WBC 5.19 3.80 - 9.90 K/cumm Comment:Testing performed by : [place] [address] [place] [address] Hgb 8.8(L) 11.9 - 15.5 g/dL ENRIQUE BRADFORD Comment:Testing performed by : [place] [address] [place] [address] Hct 27.5(L) 35.6 - 45.5 % [facility] Comment:Testing performed by : [place] [address] [place] [address] Plt 209 150 - 400 K/cumm [facility] Comment:Testing performed by : [place] [address] [place] [address] MPV 9.7 9.1 - 12.3 fL [facility] Comment:Testing performed by : [place] [address] [place] [address] RBC 3.04(L) 3.90 - 5.20 M/cumm ENRIQUE TORRES Comment:Testing performed by : [place] [address], [place] [address] MCV 90.5 81.3 - 96.4 fL ENRIQUE BETANCOURTWSTEVE Comment:Testing performed by : [place] [address], [place] [address] MCH 28.9 27.1 - 33.3 pg ENRIQUE TORRES Comment:Testing performed by : [facility], [facility], [address] [place] [address] MCHC 32.0(L) 32.3 - 35.7 g/dL ENRIQUE TORRES Comment:Testing performed by : [facility], [facility], [address] [place] [address] RDW CV 14.4 11.1 - 14.9 % ENRIQUE TORRES Comment:Testing performed by : [facility] 2, [address] [place] [address] RDW SD 47.6 35.7 - 48.1 fL ENRIQUE TORRES Comment:Testing performed by : [facility] 2, [address] [place] [address] ANC Prelim 3.00 1.50 - 6.50 K/cumm ENRIQUE TORRES Comment: Interpretive Data The rapid ANC is a preliminary automated count and may vary from the final ANC (Neut Abs) reported in the WBC differential that follows. Current interpretive data was last revised 2024. Testing performed by: [facility], [facility], [address] [place] [address] Blood 10/14/2024 8:30 AM CDT 10/14/2024 8:33 AM CDT us Ibeth'Maurisio Cox MD LAB BLOOD ORDERABLES Gail l Result ENRIQUE BETANCOURTCH [address] [facility]. Department of [employer] [place] [id number] * (ABNORMAL) Cancer antigen 19-9 (10/14/2024 8:30 AM CDT) CA 19-9 ag 46.8(H) 0.0 - 35.0 units/mL Comment: Interpretive Data The Sree CA 19-9 assay procedure was used. Results from different manufacturers or methods may not be comparable. Serial testing should be performed using the same method. Testing performed by: [facility], [facility], [place]., [address] Blood 10/14/2024 8:30 AM CDT 10/14/2024 10:46 AM CDT [facility] MD LAB BLOOD ORDERABLES Gail l Result Performing Organization Address [facility] Co de Phone Number [facility] [address] [facility]. [facility] [employer] [place] [address] * TSH (10/14/2024 8:30 AM CDT) Thyroid Stimulating Hormone 0.52 0.30 - 4.20 mcIUnit/mL Comment:Testing performed by : [facility], [address] [place] [address] Blood 10/14/2024 8:30 AM CDT 10/14/2024 8:54 AM CDT [facility] LAB BLOOD ORDERABLES Gail l Result Performing Organization Address [facility] Co de Phone Number [facility] [address] [facility]. Department of [employer] [address] * (ABNORMAL) T4, free (10/14/2024 8:30 AM CDT) Free T4 1.95(H) 0.90 - 1.70 ng/dL Comment:Testing performed by : [facility], [address] [place] [address] Blood 10/14/2024 8:30 AM CDT 10/14/2024 8:54 AM CDT [facility] MD LAB BLOOD ORDERABLES Gail l Result [facility] [address] Department [place] [address] * (ABNORMAL) Comprehensive metabolic panel (10/14/2024 8:30 AM CDT) Sodium 138 135 - 145 mmol/L Comment:Testing performed by : [facility], [address], [place] [address] Potassium, pl 3.7 3.3 - 4.9 mmol/L CERNER BJWCH Comment:Testing performed by : [facility], [address], [place] [address] Chloride 103 97 - 110 mmol/L CERNER BJWCH Comment:Testing performed by : [facility], [address], [place] [address] CO2 23 22 - 32 mmol/L CERNER B[facility] Comment:Testing performed by : [facility], [address], [place] [address] Anion gap 12 2 - 15 mmol/L CERNER B[facility] Comment:Testing performed by : [facility], [address], [place] [address] BUN 14 6 - 25 mg/dL CERNER BJW[facility] Comment:Testing performed by : [facility], [address], [place] [address] Creatinine 0.74 0.60 - 1.10 mg/dL CERNER BJWCH Comment:Testing performed by : [facility], [address], [place] [address] Glucose 94 70 - 199 mg/dL CERNER [...] was last revised 2022. Testing performed by: [facility], [address], [place] [address] Calcium 9.1 8.5 - 10.3 mg/dL CERNER BJW[facility] Comment:Testing performed by : [facility], [address], [place] [address] Bilirubin, total 0.6 0.1 - 1.2 mg/dL CERNER B[facility] Comment:Testing performed by : [facility], [address], [place] [address] Protein, pl 5.7(L) 6.5 - 8.5 g/dL CERNER [facility] Comment:Testing performed by : [facility], [address], [place] [address] Albumin 3.4(L) 3.5 - 5.0 g/dL CERNER B[facility] Comment:Testing performed by : [facility], [address], [place] [address] Alk phos 387(H) 40 - 130 Units/L CERNER BJW[facility] Comment:Testing performed by : [facility], [address], [place] [address] ALT 37 7 - 45 Units/L CERNER B[facility] Comment:Testing performed by : [facility], [address], [place] [address] AST 22 10 - 45 Units/L CERNER BJW[facility] Comment:Testing performed by : [facility], [address], [place] [address] Blood 10/14/2024 8:30 AM CDT 10/14/2024 8:54 AM CDT us Moh'Maurisio Cox MD LAB BLOOD ORDERABLES Gail l Result EN[facility]QUE [facility] [address] Department [place] [address] * IR Port Placement Chest > 5 Years (10/10/2024 10:16 AM CDT) Anatomical Region Laterality Modality Chest N/A X-Ray Angiograph y 10/10/2024 10:3 1 AM CDT Impressions 10/10/2024 10:31 AM CDT Successful chest wall port placement. PLAN: The catheter is ready for immediate use. Please note that a power injectable port was placed. When treatment is completed, removal can be scheduled by calling [facility] - [phone] [facility] - [phone] Electronically signed by: Feliciano Martinez PA-C Narrative [...] was obtained. Prior to beginning the procedure, [place] Protocol was used to confirm the patient's [...] was obtained. Prior to beginning the procedure, [place] Protocol was used to confirm the patient's [...] completed, removal can be scheduled by calling [facility] - [phone] [facility] - [phone] Electronically signed by: Feliciano Martinez PA-C [facility] Cox MD IMG IR PROCEDURES Final R [...] obtained. The study was interpreted on the [employer] workstation. The mean liver SUV (reported for quality control specialist purposes) is 1.7. The total scanned area [...] obtained. The study was interpreted on the [employer] workstation. The mean liver SUV (reported for quality control specialist purposes) is 1.7. The total scanned area [...] was last reviewed 2021. Testing performed by: [facility], [address] [facility], [place] [address] Blood 10/07/2024 4:00 PM CDT 10/07/2024 4:36 PM CDT Kalli Cox MD LAB BLOOD ORDERABLES Gail l Result [facility] [address] [facility]. Department [place] [address] * (ABNORMAL) Differential, auto (10/07/2024 4:00 PM CDT) Neutrophil abs 4.52 1.50 - 6.50 K/cumm Comment:Testing performed by : [facility], [facility], [address] [place] [address] Imm gran abs 0.01 0.00 - 0.10 K/cumm CERNER BJWCH Comment:Testing performed by : [facility], [facility], [address] [place] [address] Lymphocyte abs 0.48(L) 0.80 - 3.30 K/cumm CERNER BJWCH Comment:Testing performed by : [facility], [facility], [address] [place] [address] Monocyte abs 0.37 0.20 - 0.80 K/cumm CERNER BJWCH Comment:Testing performed by : [facility], [facility], [address] [place] [address] Eosinophil abs 0.01 0.00 - 0.50 K/cumm CERNER BJWCH Comment:Testing performed by : [facility], [facility], [address] [place] [address] Basophil abs 0.01 0.00 - 0.10 K/cumm CERNER BJWCH Comment:Testing performed by : [facility], [facility], [address] [place] [address] Neutrophil pct 83.6 % CERNER [facility] Comment: Interpretive Data Percent cell count reference ranges are not reported, since discordance with absolute values may lead to misinterpretation of CBC data. Current Interpretive Data was last revised on 2017. Testing performed by: [facility], [facility], [address] [place] [address] Imm gran pct 0.2 % CERNER [facility] Comment: Interpretive Data Percent cell count reference ranges are not reported, since discordance with absolute values may lead to misinterpretation of CBC data. Current Interpretive Data was last revised on 2017. Testing performed by: [facility], [facility], [address] [place] [address] Lymphocyte pct 8.9 % CERNER BJWCH Comment: Interpretive Data Percent cell count reference ranges are not reported, since discordance with absolute values may lead to misinterpretation of CBC data. Current Interpretive Data was last revised on 2017. Testing performed by: [facility], [facility], [address] [place] [address] Monocyte pct 6.9 % ENRIQUE TORRES Comment: Interpretive Data Percent cell count reference ranges are not reported, since discordance with absolute values may lead to misinterpretation of CBC data. Current Interpretive Data was last revised on 2017. Testing performed by: [facility], [facility], [address] [place] [address] Eosinophil pct 0.2 % ENRIQUE TORRES Comment: Interpretive Data Percent cell count reference ranges are not reported, since discordance with absolute values may lead to misinterpretation of CBC data. Current Interpretive Data was last revised on 2017. Testing performed by: [facility], [facility], [address] [place] [address] Basophil pct 0.2 % ENRIQUE TORRES Comment: Interpretive Data Percent cell count reference ranges are not reported, since discordance with absolute values may lead to misinterpretation of CBC data. Current Interpretive Data was last revised on 2017. Testing performed by: [facility], [facility], [address] [place] [address] Blood 10/07/2024 4:00 PM CDT 10/07/2024 4:01 PM CDT [facility] [place]Maurisio Cox MD LAB BLOOD ORDERABLES Gail l Result [facility] [address] [facility]. Department [place] [address] * (ABNORMAL) CBC with auto differential (10/07/2024 4:00 PM CDT) WBC 5.40 3.80 - 9.90 K/cumm Comment:Testing performed by : [facility], [facility], [address] [place] [address] Hgb 9.0(L) 11.9 - 15.5 g/dL CERNER BJWCH Comment:Testing performed by : [place] [address], [address], [place] [address] Hct 28.7(L) 35.6 - 45.5 % CERNER BJWCH Comment:Testing performed by : [place] [address], [address] [place] [address] Plt 185 150 - 400 K/cumm CERNER BJWCH Comment:Testing performed by : [place] [address], [address], [place] [address] MPV 9.1 9.1 - 12.3 fL CERNER BJWCH Comment:Testing performed by : [place] [address], [address], [place] [address] RBC 3.06(L) 3.90 - 5.20 M/cumm CERNER BJWCH Comment:Testing performed by : [place] [address], [place] [address] MCV 93.8 81.3 - 96.4 fL CERNER BJWCH Comment:Testing performed by : [place] [address], [place] [address] MCH 29.4 27.1 - 33.3 pg CERNER BJWCH Comment:Testing performed by : [place] [address], [address] [place] [address] MCHC 31.4(L) 32.3 - 35.7 g/dL CERNER BJWCH Comment:Testing performed by : [place] [address], [address], [place] [address] RDW CV 15.4(H) 11.1 - 14.9 % CERNER BJWCH Comment:Testing performed by : [facility], [address], [place] [address] RDW SD 53.6(H) 35.7 - 48.1 fL CERNER BJWCH Comment:Testing performed by : [place] [address], [address], [place] [address] ANC Prelim 4.52 1.50 - 6.50 K/cumm ENRIQUE TORRES Comment: Interpretive Data The rapid ANC is a preliminary automated count and may vary from the final ANC (Neut Abs) reported in the WBC differential that follows. Current interpretive data was last revised 2024. Testing performed by: [facility], [facility], [address] [place] [address] Blood 10/07/2024 4:00 PM CDT 10/07/2024 4:01 PM CDT Kalli Cox MD LAB BLOOD ORDERABLES Gail l Result Performing Organization Address [facility] Co de Phone Number [facility] [address] [address] [place] [address] * (ABNORMAL) Cancer antigen 19-9 (10/07/2024 4:00 PM CDT) CA 19-9 ag 79.3(H) 0.0 - 35.0 units/mL Comment: Interpretive Data The Sree CA 19-9 assay procedure was used. Results from different manufacturers or methods may not be comparable. Serial testing should be performed using the same method. Testing performed by: [facility], [address] [place] [address], [place]., [address] Blood 10/07/2024 4:00 PM CDT 10/07/2024 6:08 PM CDT Kalli Cox MD LAB BLOOD ORDERABLES Gail l Result Performing Organization Address City/[facility]/ZIP Co de Phone Number [facility] [address] [address]. [facility] [place] [address] * (ABNORMAL) Protime-INR (10/07/2024 4:00 PM CDT) PT 14.2(H) 9.7 - 13.0 sec Comment:Testing performed by : [facility], [address] [place] [address] INR 1.31(H) 0.90 - 1.20 ENRIQUE TORRES Comment: Interpretive data Oral anticoagulant therapeutic ranges: Venous thromboembolism prophylaxis or treatment: 2.0-3.0 CARDIOLOGY Standard range: 2.0-3.0 High-intensity range: 2.5-3.5 Refer to indication-specific guidelines for appropriate target ranges for prosthetic heart valve replacement. Current interpretive data was last revised on 2019. Testing performed by: [facility], [address] [place] [address] Blood 10/07/2024 4:00 PM CDT 10/07/2024 4:36 PM CDT Moh'Maurisio Cox MD LAB BLOOD ORDERABLES Gail l Result [facility] [address]. Department [place] [address] * (ABNORMAL) Comprehensive metabolic panel (10/07/2024 4:00 PM CDT) Sodium 141 135 - 145 mmol/L Comment:Testing performed by : [facility], [address] [place] [address] Potassium, pl 4.2 3.3 - 4.9 mmol/L ENRIQUE TORRES Comment:Testing performed by : [facility], [address] [place] [address] Chloride 105 97 - 110 mmol/L ENRIQUE TORRES Comment:Testing performed by : [facility], [address] [place] [address] CO2 26 22 - 32 mmol/L ENRIQUE TORRES Comment:Testing performed by : [facility], [address] [place] [address] Anion gap 11 2 - 15 mmol/L ENRIQUE TORRES Comment:Testing performed by : [facility], [address], [place] [address] BUN 13 6 - 25 mg/dL CERNER BJWCH Comment:Testing performed by : [facility], [address], [place] [address] Creatinine 0.71 0.60 - 1.10 mg/dL CERNER BJWCH Comment:Testing performed by : [facility], [address], [place] [address] Glucose 106 70 - 199 mg/dL CERNER [...] was last revised 2022. Testing performed by: [facility], [address], [place] [address] Calcium 9.6 8.5 - 10.3 mg/dL CERNER BJWCH Comment:Testing performed by : [facility], [address], [place] [address] Bilirubin, total 1.8(H) 0.1 - 1.2 mg/dL CERNER BJWCH Comment:Testing performed by : [facility], [address], [place] [address] Protein, pl 6.2(L) 6.5 - 8.5 g/dL CERNER BJWCH Comment:Testing performed by : [facility], [address], [place] [address] Albumin 3.6 3.5 - 5.0 g/dL CERNER BJWCH Comment:Testing performed by : [facility], [address], [place] [address] Alk phos 794(H) 40 - 130 Units/L CERNER BJWCH Comment:Testing performed by : [facility], [address], [place] [address] ALT 107(H) 7 - 45 Units/L [facility] Comment:Testing performed by : [facility], [address] [place] [address] AST 240(H) 10 - 45 Units/L ENRIQUE [facility] Comment:Testing performed by : [facility], [address] [place] [address] Blood 10/07/2024 4:00 PM CDT 10/07/2024 4:36 PM CDT Kalli Cox MD LAB BLOOD ORDERABLES Gail l Result [facility] [address] [address]. Department [place] [address] * [id number] (10/07/2024 3:52 PM CDT) MSI-HIGH NOT DETECTED 10/14/2024 7:47 PM CDT [facility] TMB 4.75 mut/Mb 10/14/2024 7:47 PM CDT [facility] HRD Not detected 10/14/2024 7:[address] [facility] TUMOR FRACTION 0.4% 10/14/2024 7:47 PM CDT [facility] Chip TET2 Q644* (0.5%) 10/14/2024 7:[address] [facility] Blood specimen (specimen) Venous blood specimen / Unknown 10/07/2024 3:52 PM CDT 10/09/2024 11:07 AM CDT Narrative This result has genomic variants that were not included in this document. Kalli Cox MD LAB GENETIC TESTING Final Result [facility] [address] [place], [place] [address] [phone] [facility] [address] [place] [address] * POCT lipid panel (09/27/2024 1:34 PM [...] best viewed via link to PDF [facility] Su[facility] [place] [address] Note to Patients: This report may contain [...] F : 1950 (Age: 73) Address: [address] [place] [address] [facility] #: [id number] Taken:09/19/2024 Received:09/19/2024 Reported: 09/20/2024 Patient Type: [facility] ED Service: Emergency Location: [facility] ED Physician(s): Puma Wagner M.D. Daisy Mercado [...] cm in aggregate). Labeled A1. Jar 0. [facility]/09/19/2024 15:19 PA(s): Evelyn Cunningham By this signature, I attest that the above diagnosis is based upon my personal examination of the slides(and/or other material). Addenda/Procedures The performance characteristics of some immunohistochemical stains, fluorescence in-situ hybridization tests and immunophenotyping by flow cytometry cited in this report (if any) were determined by the Surgical Pathology and Flow Cytometry Departments at [facility] as part of an ongoing billing and quality technician program and in compliance with federally [...] Surgical Pathology and Flow Cytometry Departments of [facility]. It has not been cleared or approved by the U. S. Food and Drug Administration. IMAGES AND SCANNED DOCUMENTS, IF INCLUDED, ONLY VIEWABLE IN PDF VERSION OF REPORT us David Brewer MD LAB PATHOLOGY ORDERABLES [facility] Result [facility]OLOGY [facility] 3rd Floor [place], [place] [phone] * Upper EUS (09/19/2024 12:32 PM CDT) Anatomical Region Laterality Modality Other Narrative Procedure Note David Brewer MD - 09/19/2024 12:32 PM CDT GI ENDOSCOPY NORTH Patient Name: Susannah Camargo Procedure Date: 09/19/2024 12:32 PM Date of : 1950 Admit Type: Outpatient Age: 73 Gender: Female Attending MD: David Brewer M.D. Room: [facility] ENDOSCOPY ROOM 1 Note Status: Finalized Procedure: [...] consent was obtained.The Olympuscurved linear array therapeutic [id number] was introduced through the mouth, and advanced tothe second part of duodenum The GIF [id number] endoscope was introduced through the mouth, and [...] Three passes were madewith the 22 gauge [employer] ASA needle using a transgastric approach. A stylet [...] following this procedure please call my officeat [phone] ([phone]) to speak to my nurses. After hours and evenings please call [phone] speak to the GI fellow benefits consultant. Please tell themthat Dr. Brewer did your procedure and that your were instructed to have the fellow call me or thephysician covering for me to discuss the management of your condition. If you have an urgent problem, please goto the nearest emergency room and have the ER doctorcall my office during the day or [facility] transfer ([phone]) center after hours and weekends to arrange admission or transfer to our facility. - Call my nurse Arlyn Segovia RN in the GI office at [phone] for your final pathology results in 7 [...] using the same method. Testing performed by: [facility], [address], [place]., [address] Blood 09/17/2024 10:3 2 AM CDT 09/17/2024 7:30 PM CDT us Ana RODRIGUES LAB BLOOD ORDERABLES Gail garcia Result ENRIQUE BJW[facility] [address] Department of [employer] [place] [address] * (ABNORMAL) CEA (09/17/2024 10:32 AM CDT) CEA 5.2(H) <=5.0 ng/mL Comment: Interpretive Data Reference Range: Non-Smokers: < or = 3.0 ng/mL Some Smokers may have elevated levels, usually < 5.0 ng/mL The Sree CEA assay procedure was used. Results from different manufacturers or methods may not be comparable. Serial testing should be performed using the same method. Testing performed by: [facility], [facility], [place]., [address] Blood 09/17/2024 10:3 2 AM CDT 09/17/2024 7:30 PM CDT Ana RODRIGUES LAB BLOOD ORDERABLES Gail l Result Performing Organization Address [facility] de Phone Number ENRIQUE [facility] [address] Department of [employer] [facility] [place] [address] * CT Chest W and Abdomen Pelvis [...] Biliary Duct (09/06/2024 1:42 PM CDT) Narrative [facility] - 09/06/2024 1:53 PM CDT The images from this study are not interpreted by Radiology. Please refer to the physician's procedure / OR operative note. David Brewer MD IMG FLUOROSCOPY PROCEDURES Final Result [facility] * Surgical pathology (09/06/2024 1:25 PM CDT) Lymph node, needle biopsy 09/06/2024 1:25 PM CDT 09/10/2024 11:26 AM CDT Narrative 09/11/2024 3:14 PM CDT [address] [address] Tele: Roxana Gordon MD - Ground Support Equipment Mechanic Note to Patients: This report may contain [...] PATHOLOGY REPORT Patient Name: SUSANNAH CAMARGO Address: [address] [place] [address] Gender: F : 1950 (Age: 73) Service: Gastro Location: [facility], Hospital #: [id number] Patient Type: [facility] SURGERY Taken: 09/06/2024 Received 09/10/2024 Reported: 09/11/2024 Physician(s): Puma Wagner MD Jason E. Barnett, M.D. DIAGNOSIS: Pancreas, head, fine needle biopsies: - Focal atypical glands (see description) [facility] [place] [place]/11/2024 15:14 Examining Pathologist: Alek [...] filtered and submitted entirely in cassette A1. [facility] MICROSCOPIC DESCRIPTION: Microscopic examination shows multiple fragments of pancreatic parenchyma. There are focal slightly irregular glands with minimal nuclear atypia. An immunostain for p53 shows wild type staining in these glands. There is no definitive malignancy identified. Clinical correlation and follow-up is needed. Clerical Data Follows A; [id number], [address]56, [address]30 <CR>, 37025 REPORT IMAGES AND/OR SCANNED DOCUMENTS ONLY VIEWABLE IN PDF FORMAT The immunohistochemical test(s) cited in this report, if any, was developed and its performance characteristics determined by [facility] Pathology Department. It has not been cleared or approved by the U.S. Food and Drug Administration. The FDA has determined that such clearance or approval is not necessary. This test is used for clinical purposes. It should not be regarded as investigational or for research. [facility] Laboratory is certified under the Clinical Laboratory [...] part or completely in the following laboratories: [facility], [address] [place] [address], [address] [place] [address]. us David Brewer MD LAB PATHOLOGY ORDERABLES Fi nal Result * ERCP (09/06/2024 1:03 PM CDT) Anatomical Region Laterality Modality Other Narrative Procedure Note David Brewer MD - 09/06/2024 1:03 PM CDT ENDOSCOPY LAB Patient Name: Susannha Camargo Procedure Date: 09/06/2024 1:03 PM Admit Type: Outpatient Room: [facility] Date of : 1950 Instrument Name: [id number] [...] The patienttolerated the procedure well. Findings: The freight unloader film was normal. The esophagus was successfully [...] following this procedure please call my officeat [phone] ([phone]) to speak to my nurses. After hours and evenings please call [phone] speak to the GI fellow benefits consultant. Please tell themthat Dr. Brewer did your procedure and that your were instructed to have the fellow call me or thephysician covering for me to discuss the management of your condition. If you have an urgent problem, please goto the nearest emergency room and have the ER doctorcall my office during the day or [facility] transfer ([phone]) center after hours and weekends to arrange [...] 09/06/2024 1:02 PM Admit Type: Outpatient Room: [facility] Date of : 1950 Instrument Name: [id number] [...] following this procedure please call my officeat [phone] ([phone]) to speak to my nurses. After hours and evenings please call [phone] speak to the GI fellow benefits consultant. Please tell themthat Dr. Brewer did your procedure and that your were instructed to have the fellow call me or thephysician covering for me to discuss the management of your condition. If you have an urgent problem, please goto the nearest emergency room and have the ER doctorcall my office during the day or [facility] transfer ([phone]) center after hours and weekends to arrange admission or transfer to our facility. - Call my nurse Arlyn Segovia RN in the GI office at [phone] for your final results in 7 days. [...] Bilirubin, direct 4.2(H) 0.1 - 0.3 mg/dL [facility] Protein, pl 5.5(L) 6.5 - 8.5 g/dL [facility] Albumin 3.0(L) 3.5 - 5.0 g/dL [facility] Alk phos 1,250(H) 40 - 130 Units/L [facility] ALT 143(H) 7 - 45 Units/L [facility] AST 190(H) 10 - 45 Units/L [facility] Blood 09/06/2024 10:5 0 AM CDT 09/06/2024 10:50 AM CDT Narrative ENRIQUE [facility] - 09/06/2024 11:32 AM CDT STAT pre procedure lab same day us Geoffrey Shaver MD LAB BLOOD ORDERABLES Final Result [facility] [address] Department [place] [address] * CT Body Outside Consult (09/05/2024 1:04 [...] images may or may not represent the [place] source data set and thus may contain changes that may lower the accuracy of this second-opinion interpretation. Electronically signed by: Mickey Martinez M.D. Narrative 09/05/2024 2:33 PM CDT EXAMINATION: RADIOLOGY CONSULTATION ON OUTSIDE IMAGING STUDY STUDY INITIALLY PERFORMED: 08/28/2024 at [facility]. TYPE OF STUDY: Multiple CT [...] IMAGING STUDY STUDY INITIALLY PERFORMED: 08/28/2024 at [facility]. TYPE OF STUDY: Multiple CT [...] images may or may not represent the [place] source data set and thus may contain changes that may lower the accuracy of this second-opinion interpretation. Electronically signed by: Mickey Martinez M.D. us David Brewer MD IMG CT PROCEDURES Final Res ult from Last 3 Months Insurance [employer]HC MEDICARE ADVANTAGE [facility] MEDICARE Address: [place] [id number] [employer]HC MEDICARE ADVANTAGE [facility] MEDICARE Address: [address] [address] [facility] MEDICARE ADVANTAGE [facility] MEDICARE Address: [facility] [address] [place] [address] Advance Directives For more information, please contact: [phone] * Full Code (Latest Code Status on [...] 1:22 PM 02/28/2023 7:54 PM Care Teams Sheet Metal Pattern Cutter Relationship Specialty Start Date End Date Leonidas Rubio MD [address] [address] PCP - General Family Medicine 09/05/24 Arianna Persaud PA [address] [facility] [address] [place] [address] Physician School Photographs Detailer 08/29/24 David Brewer MD [address] [place] [address] Referring Physician Gastroenterology 09/23/24 Kalli Cox MD [address] [place] [address] Consulting Physician Medical Oncology 09/23/24 Daisy Mercado MD [address] [facility] [address] [place] [address] Consulting Physician General Surgery 09/23/24 Kalli Cox MD [address] [place] [address] Consulting Physician Medical Oncology 10/28/24
--- OUTSIDE RECORDS SUMMARY | 2024-11-14 04:52 | XMS_ITS | Continuity of Care Document ---
Author Organization [facility] Address [address] [place] [address] Phone Care Team Providers Care Billing Associate Name Role Phone Maribel BROWN, Ramirez Unavailable [...] OFFICE/OUTPA TIENT VISIT NEW [facility], [address], [place], [address], [place] tel:[phone] [facility] [place] CervicalgiaOther spondylosis with myelopathy, cervical regionAbnormal reflex 4 Maribel Guzmán. [address], [place], [place], [id number] , [place]. tel: [phone] Referring Provider: Nidhi Smart [address], [place], [address]. tel:[phone] Family History Family Member Type Diagnosis Age At Onset No Information Payers Payer name Insurance type Covered libertarian ID Pedro chaney(s) AAR Medicare Complete HMO-POS [id number] Social History Type Description Quantity Date [...]
--- NOTE | 2024-11-14 05:12 | ED.GENADULT ---
HPI - General Adult General Chief complaint: Head Injury Stated complaint: fall, head injury Time Seen by Provider: 11/14/24 04:16 History of Present Illness HPI narrative: This is a 73-year-old female history of pancreatic cancer on anticoagulation presenting after ground level fall. Patient says that she bent over to get something out of her mini Fridge when she stood back up she tilted backwards and struck head. She did not lose consciousness. She has a small hematoma. She called her oncologist who recommended she come in the hospital to be evaluated for brain bleed. Patient has no other complaints at this time Related Data Home Medications ?Medication ?Instructions ?Recorded ?Confirmed ?Last Taken ?Type hydralazine 25 mg tablet 25 mg PO TID PRN 03/20/23 10/02/24 Unknown History nifedipine 20 mg capsule 20 mg PO Q6H 12/06/23 10/02/24 Unknown History propafenone 225 mg tablet 225 mg PO Q12H 09/05/24 10/02/24 Unknown History gjjbbe-[id number]-yplgohi 1 cap PO BID 10/02/24 10/02/24 Unknown History 40,000-126,000-168,000 unit capsule, delay rel (Zenpep) morphine 15 mg immediate release 15 mg PO Q8H PRN 10/02/24 10/02/24 Unknown History tablet rivaroxaban 20 mg tablet (Xarelto) 20 mg PO DAILY 10/02/24 10/02/24 Unknown History Allergies Allergy/AdvReac Type Severity Reaction Status Date / Time hydrocodone Allergy Itching Verified 11/14/24 04:22 oxycodone Allergy Itching Verified 11/14/24 04:22 amoxicillin AdvReac Vomiting Verified 11/14/24 04:22 [facility] Past Medical History Medical History Pancreatic adenocarcinoma Ulcerative colitis Pancreatic mass Lactose intolerance Chronic anemia Postmenopausal Major depressive disorder, recurrent, moderate Weight gain Primary generalized (osteo)arthritis Polyosteoarthritis, unspecified Panic attacks NOMI on CPAP Morbid (severe) obesity due to excess calories Mixed hyperlipidemia Chronic fatigue Essential (primary) hypertension Chronic pain disorder Chronic atrial fibrillation Arthritis, shoulder region Arthralgia Allergic contact dermatitis due to plants, except food Breast cancer screening Cough Dizziness Chapped lips Screening for breast cancer Generalized anxiety disorder Major depressive disorder, recurrent, moderate BMI 40.0-44.9, adult Obesity NOMI (obstructive sleep apnea) Benign essential HTN Arthritis Surgical History Surgical History History of sleeve gastrectomy History of radiofrequency ablation procedure for cardiac arrhythmia Hx of total knee arthroplasty R H/O total hip arthroplasty bilateral Family History Family History Father Family history of premature coronary heart disease Hypertension Social History Social History Social History: Smoking status: Never smoker Second hand tobacco smoke exposure: No Alcohol intake: former Substance use: never Substance use type: does not use Lack of Transportation: No Lack of Food: Never True Current Housing: I Have Housing Concerned About Future Housing: No Difficulty Paying Gas/Electric Bills: No Difficulty Paying for Meds: No Currently Unemployed: No Education: Decline to Answer Difficulty w/ Childcare or Family Care: No Living arrangements: alone Occupation/Education: retired Gender identity (if verbalized by the patient): Female Sexual Orientation (if Verbalized by the Patient): Straight or Heterosexual Exam Narrative: APPEARANCE: No apparent distress. Head: Small hematoma to the posterior scalp EYES: EOMI, NOSE: Atraumatic NECK: Trachea midline RESPIRATORY: No increased rate of breathing CTAB CARDIOVASCULAR: RRR, Port-A-Cath in right anterior chest wall ABDOMINAL: Non-distended MUSCULOSKELETAl: No obvious deformities NEURO: Alert. Cranial nerves 2-12 grossly intact. Sensation light touch, motor function cerebellar function intact for 4 extremities. Gait exam was normal. SKIN:: Warm, dry. Normal color PSYCHIATRIC: Normal affect Course Vital Signs Vital signs: Vital Signs Temperature 97.7 F 11/14/24 04:13 Pulse Rate 85 11/14/24 04:13 Respiratory Rate 18 11/14/24 04:13 Blood Pressure 139/91 H 11/14/24 04:13 Pulse Oximetry 99 11/14/24 04:13 Oxygen Delivery Room Air 11/14/24 04:13 Temperature 97.7 F 11/14/24 04:13 Pulse Rate 85 11/14/24 04:13 Respiratory Rate 18 11/14/24 04:13 Blood Pressure 139/91 H 11/14/24 04:13 Pulse Oximetry 99 11/14/24 04:13 Oxygen Delivery Room Air 11/14/24 04:13 Medical Decision Making MDM Narrative Medical decision making narrative: -Course: 73-year-old female on anticoagulation presenting after ground level fall. CT head and C-spine negative for acute injury. Discussed getting lab work or other studies and the patient has declined. Patient will be discharged follow-up with her oncologist. Given return precautions. -DDX includes but is not limited to: Concussion, intracranial hemorrhage, scalp hematoma Vital Signs Vital Signs: Vital Signs Temperature 97.7 F 11/14/24 04:13 Pulse Rate 85 11/14/24 04:13 Respiratory Rate 18 11/14/24 04:13 Blood Pressure 139/91 H 11/14/24 04:13 Pulse Oximetry 99 11/14/24 04:13 Oxygen Delivery Room Air 11/14/24 04:13 Temperature 97.7 F 11/14/24 04:13 Pulse Rate 85 11/14/24 04:13 Respiratory Rate 18 11/14/24 04:13 Blood Pressure 139/91 H 11/14/24 04:13 Pulse Oximetry 99 11/14/24 04:13 Oxygen Delivery Room Air 11/14/24 04:13 Discharge Plan Discharge Clinical Impression: Hematoma, Fall Patient Disposition: Home Condition: Stable Instructions: Antibiotic Form, Head Injury (ED) Additional Instructions: You were seen after a fall. CT of your brain and neck did not show any acute injuries. Please follow-up with your primary care physician oncologist for further management. Patient Language: Georgian Prescriptions: No Action carvedilol [Coreg] 6.25 mg tablet 6.25 mg PO Q12H Qty: 60 0RF Rx Instructions: must administer with a meal/food hydralazine 25 mg tablet 25 mg PO TID PRN Patient Comments: for elevated BP nifedipine 20 mg capsule 20 mg PO Q6H Patient Comments: per cardio propafenone 225 mg tablet 225 mg PO Q12H Patient Comments: per cardio budesonide 3 mg capsule,delayed,extend.release 9 mg PO QAM Qty: 90 2RF morphine 15 mg tablet 15 mg PO Q8H PRN Zenpep 40,000-126,000- 168,000 unit capsule,delayed release(DR/EC) 1 cap PO BID Rx Instructions: administer with meals and/or snacks Xarelto 20 mg tablet 20 mg PO DAILY Rx Instructions: must administer with evening meal tizanidine 2 mg tablet 2 mg PO TID PRN (Reason: muscle spasticity) Qty: 90 2RF pregabalin [Lyrica] 50 mg capsule 50 mg PO TID Qty: 90 1RF hyoscyamine sulfate 0.125 mg tablet,disintegrating 0.125 mg PO QID Qty: 60 0RF doxycycline hyclate 100 mg capsule 100 mg PO BID 7 Days Qty: 14 0RF albuterol sulfate 90 mcg/actuation HFA aerosol inhaler 2 puff inhalation QID PRN (Reason: shortness of breath or wheezing) Qty: 8.5 0RF simethicone 250 mg capsule 250 mg PO BID PRN (Reason: abdominal distention) Qty: 30 0RF lisinopril 10 mg tablet 10 mg PO DAILY Qty: 90 1RF buspirone 10 mg tablet See Rx Instructions .ROUTE .COMPLEX Qty: 180 0RF Dose Instruction: TAKE 1 TABLET BY MOUTH TWICE DAILY Rx Instructions: TAKE 1 TABLET BY MOUTH TWICE DAILY citalopram 40 mg tablet See Rx Instructions .ROUTE .COMPLEX Qty: 90 1RF Dose Instruction: TAKE 1 TABLET BY MOUTH EVERY DAY Rx Instructions: TAKE 1 TABLET BY MOUTH EVERY DAY hydroxyzine HCl 25 mg tablet See Rx Instructions .ROUTE .COMPLEX Qty: 90 0RF Dose Instruction: TAKE 1 TABLET BY MOUTH THREE TIMES DAILY NEEDED FOR NAUSEA OR VOMITING Rx Instructions: TAKE 1 TABLET BY MOUTH THREE TIMES DAILY NEEDED FOR NAUSEA OR VOMITING ondansetron 4 mg tablet,disintegrating See Rx Instructions .ROUTE .COMPLEX Qty: 20 0RF Dose Instruction: DISSOLVE 1 TABLET ON THE TONGUE EVERY 8 HOURS NEEDED FOR NAUSEA OR VOMITING Rx Instructions: DISSOLVE 1 TABLET ON THE TONGUE EVERY 8 HOURS NEEDED FOR NAUSEA OR VOMITING Follow-up/Referrals: Leonidas Rubio MD [Primary Care Provider] -
[2024-11-14 05:28] VITALS: BP 141/63; PULSE 82; RESP 18; TEMP 36.5; O2SAT 97
== END 2024-11-14 05:30 | disposition home or self-care (01) ==
PROVIDERS: Emergency Provider Emergency Medicine; PCP Family Medicine
DX: S00.93XA Contusion of unspecified part of head, initial encounter (principal); S00.03XA Contusion of scalp, initial encounter; C25.9 Malignant neoplasm of pancreas, unspecified; E78.2 Mixed hyperlipidemia; I10 Essential (primary) hypertension; I48.20 Chronic atrial fibrillation, unspecified; K51.90 Ulcerative colitis, unspecified, without complications; D64.9 Anemia, unspecified; M19.019 Primary osteoarthritis, unspecified shoulder; G47.33 Obstructive sleep apnea (adult) (pediatric); F33.9 Major depressive disorder, recurrent, unspecified; F41.1 Generalized anxiety disorder; Z98.84 Bariatric surgery status; Z96.651 Presence of right artificial knee joint; Z96.643 Presence of artificial hip joint, bilateral; Z79.01 Long term (current) use of anticoagulants; W18.39XA Other fall on same level, initial encounter
CPT/HCPCS: 70450; 72125; 99284

== ENCOUNTER 2024-12-06 15:20 | Emergency (ER) | payer MEDICARE, SELFPAY ==
[2024-12-06] VITALS (34 sets, daily range): BP systolic 103–138; BP diastolic 77–92; PULSE 66–75; RESP 0–22; TEMP 36.7; O2SAT 94–100
--- NOTE | ~2024-12-06 | US_ITS ---
EXAMINATION:US venous doppler LE BI INDICATION:Bilateral leg edema TECHNIQUE: Multiple grayscale, color flow and Doppler images of the right and left lower extremity deep venous systems were obtained and reviewed. COMPARISON:No prior studies for comparison. FINDINGS: The common femoral, superficial femoral and popliteal veins demonstrate normal respiratory variation, augmentation and compressibility. Color flow is also seen within the posterior tibial, peroneal, greater saphenous and profunda veins. IMPRESSION: 1: No lower extremity deep venous thrombosis. Reviewed, dictated and finalized at location O.
--- NOTE | ~2024-12-06 | XR_ITS ---
EXAMINATION: XR chest 2V 12/06/2024 16:13 INDICATION: Shortness of breath TECHNIQUE:Frontal and lateral images of the chest were obtained. COMPARISON: 10/19/2024 FINDINGS: Right-sided central venous catheter, unchanged. No pneumothorax. New confluent opacity in the lower half of the right hemithorax. Differential includes a combination of pleural fluid with adjacent atelectasis and/or consolidation. An underlying mass is possible. Recommend follow-up to resolution. A chest CT is recommended. Small opacities in the left mid and lower lung. Differential includes atelectasis or infiltrates. There is a 1.1 cm oval nodular density projecting over the right upper lung. A pulmonary nodule is possible. Differential includes artifact from overlapping structures. A chest CT is recommended. Right hilum is prominent. Attention on follow up chest CT imaging. IMPRESSION: 1.New confluent opacity in the lower half of the right hemithorax. Differential includes a combination of pleural fluid with adjacent atelectasis and/or consolidation. An underlying mass is possible. Recommend follow-up to resolution. A chest CT is recommended. 2.Small opacities in the left mid and lower lung. Differential includes atelectasis or infiltrates. 3.There is a 1.1 cm oval nodular density projecting over the right upper lung. A pulmonary nodule is possible. Differential includes artifact from overlapping structures. A chest CT is recommended. 4.Right hilum is prominent. Attention on follow up chest CT imaging. Reviewed, dictated and finalized at location [facility]. IMPRESSION: 1.New confluent opacity in the lower half of the right hemithorax. Differential includes a combination of pleural fluid with adjacent atelectasis and/or conso lidation. An underlying mass is possible. Recommend follow-up to resolution. A chest CT is recommended. 2.Small opacities in the left mid and lower lung. Differential includes atelect asis or infiltrates. 3.There is a 1.1 cm oval nodular density projecting over the right upper lung. A pulmonary nodule is possible. Differential includes artifact from overlapping structures. A chest CT is recommended. 4.Right hilum is prominent. Attention on follow up chest CT imaging.
--- NOTE | ~2024-12-06 | CT_ITS ---
EXAMINATION: CT chest abdomen pelvis w con DATE: 12/06/2024 17:56 CDT INDICATION: Shortness of breath. Ascites. Pancreatic cancer. TECHNIQUE: Computed tomography (CT) of the chest, abdomen, and pelvis was performed with 100 cc Omnipaque 350 intravenous contrast. The dose-length product was 1204.39 mGy-cm. COMPARISON: None FINDINGS: CHEST CT: large right pleural effusion. There is underlying compressive atelectasis. No thoracic lymphadenopathy. There are surgical changes of gastric bypass surgery. There is a biliary stent. No suspicious pulmonary nodules or masses. ABDOMEN/PELVIS CT: There is pneumobilia. Correlate for recent biliary intervention. There is questionable free air adjacent to the pancreatic head of uncertain origin versus gas in the bile duct. There are bilateral hip arthroplasties creating significant streak artifact limiting evaluation of the pelvis. There is renal atrophy. Small subcentimeter hypodensities of the kidneys, most likely benign cysts.. There is ascites. There is questionable pancreatic head mass, although not well delineated. There is dilation of the pancreatic duct. The spleen contains calcified granulomas. Nonobstructive bowel gas pattern. The Gallbladder is present. Moderate-severe thoracolumbar spondylosis. There are bilateral total hip arthroplasties. IMPRESSION: 1. Abnormal gas just above the gallbladder fossa with irregular linear configuration which may represent biliary gas or less likely free air. Cannot exclude bowel perforation. Correlate for recent intervention. There is a biliary stent present. 2: Moderate-large right pleural effusion with underlying compressive atelectasis. 3: Ascites. 4: Ill-defined pancreatic head mass, suspicious for known malignancy. Reviewed, dictated and finalized at location O. IMPRESSION: 1. Abnormal gas just above the gallbladder fossa with irregular linear configur ation which may represent biliary gas or less likely free air. Cannot exclude b owel perforation. Correlate for recent intervention. There is a biliary stent p resent. 2: Moderate-large right pleural effusion with underlying compressive atelectasi s. 3: Ascites. 4: Ill-defined pancreatic head mass, suspicious for known malignancy.
--- OUTSIDE RECORDS SUMMARY | 2024-12-06 15:23 | XMS_ITS | Clinical Summary ---
Author Organization [facility] Address [address] [place] [address] Phone Care Team Providers Care Edge Gluer Name Role Phone Linette Yepez MD Primary Care Provider [phone] Allergies Active Allergy Reactions Criticality Noted Date [...] 90 mL 360 mL 04/14/2020 2:38 PM STOCK REPAIRER 0 Active ondansetron (Zofran ODT) 8 mg Tablet, Rapid Dissolve Dissolve 1 Tablet (8 mg) by mouth every 8 hours as needed for nausea or vomiting. 20 Tablet 2 04/14/2020 2:38 PM STOCK REPAIRER 0 Active Active Problems Problem Noted Date [...] Comments Blood Pressure 168/83 04/14/2020 7:59 AM STOCK REPAIRER Pulse 61 04/14/2020 7:59 AM STOCK REPAIRER Temperature 36.8 C (98.2 F) 04/14/2020 7:59 AM STOCK REPAIRER Respiratory Rate 18 04/14/2020 7:59 AM STOCK REPAIRER Oxygen Saturation 98% 04/14/2020 7:59 AM STOCK REPAIRER Inhaled Oxygen Concentration - - Weight 108.2 kg (238 lb 9.6 oz) 04/13/2020 7:05 AM STOCK REPAIRER Height 160 cm (5' 3) 04/13/2020 7:05 AM STOCK REPAIRER Body Mass Index 42.27 04/13/2020 7:05 AM STOCK REPAIRER Plan of Treatment Health Maintenance Due [...] (#1) 2024 Medical Devices Implanted Type Area Learning Support Resource Room Teacher Device Identifier Shelf Expiration Date Model / Serial / Lot Seamguard Endogia 60 [id number] [id number] - [id number] Implanted:Qty : 2 on 04/13/2020 by Hong Bryant MD at [facility] N/A: Abdomen [employer] 12/02/2022 [id number] / / [id number] Seamguard Endogia 60 [id number] [id number] - [id number] Implanted:Qty : 1 on 04/13/2020 by Hong Bryant MD at [facility] N/A: Abdomen [employer] 08/19/2022 [id number] / / [id number] [place] [address] RX [employer] RX Member Subscriber Plan / Payer (Ef fective 2016-Present) Name:Raman Susannah A Relation to Subscriber:Self Name:Raman Susannah A Payer ID:Not on file Group ID:[id number] Type:RX Medicare Part D Address: [address] Advance Directives For more information, please contact: [phone] * Full Code (Latest Code Status on File) Date Activated Date Inactivated Comments 04/13/2020 1:09 PM 04/14/2020 5:55 PM Care Teams Edge Gluer Relationship Specialty Start Date End Date Linette Yepez MD PCP - General Family Practice 04/01/20
--- OUTSIDE RECORDS SUMMARY | 2024-12-06 15:23 | XMS_ITS | Encounter Summary ---
Author Organization [facility] [address] [facility] [place] [address] Care Team Providers Care Student Support Advisor Name Role Phone Linette Yepez MD Primary Care Provider [phone] Reason for Visit * Reason Onset Date Comments MEDICAL MANAGEMENT 04/13/2020 JENNIFER W/ RAVI Nettles/ HOSPITALIST GROUP Encounter Details Date Type Department Care Team ([facility] st Contact Info) Description 04/13/2020 Telephone [facility] Admitting [address] [place] [address] [place] Bryant MD [id number] [place] [address] [place] [address] MEDICAL MANAGEMENT (JENNIFER Nettles/ RAVI Nettles/ HOSPITALIST [...] COVID-19? No / Unsure 04/13/2020 6:46 AM BUSINESS DEVELOPER documented as of this encounter Plan of Treatment Not on file documented as of this encounter Visit Diagnoses Not on filedocumented in this encounter Care Teams Student Support Advisor Relationship Specialty Start Date End Date Linette Yepez MD PCP - General Family Practice 04/01/20 documented as of this encounter
--- OUTSIDE RECORDS SUMMARY | 2024-12-06 15:23 | XMS_ITS | Clinical Summary ---
Author Organization [facility] Address [address] [place] [address] Phone Care Team Providers Care Nursing Home Administrator Name Role Phone Linette Yepez MD Primary Care Provider [phone]- [phone] Allergies Active Allergy Reactions Criticality Noted Date [...] mg by mouth 2 times daily. rx [id number] Active NIFEdipine CR (PROCARDIA-XL) 30 MG TABLET SR 24 HR Take 30 mg by mouth daily. rx [id number] Active Buprenorphine HCl (Belbuca) 600 MCG FILM Take 1 Film by mouth 2 times daily. rx [id number] Active hydrOXYzine (ATARAX) 25 MG Tablet Take 25 mg by mouth 3 times daily as needed for Itching or Nausea (vomiting). rx [id number] Active famotidine (PEPCID) 20 MG Tablet Take 20 mg by mouth daily. rx [id number] Active traMADol (ULTRAM) 50 MG Tablet take [...] to complete this topic Insurance MEDICARE C [facility] Advance Directives * Full Code (Latest Code Status on File) Date Activated Date Inactivated Comments 12/27/2023 9:36 AM Care Teams Nursing Home Administrator Relationship Specialty Start Date End Date Linette Yepez MD [address] [facility] [address] [place] [address] PCP - General Family Medicine 12/08/23
--- OUTSIDE RECORDS SUMMARY | 2024-12-06 15:24 | XMS_ITS | Encounter Summary ---
Author Organization [facility] Address [address] [place] [address] Phone Care Team Providers Care Hop Sorter Name Role Phone Arianna Persaud Unavailable +- [phone] Leonidas Rubio MD Primary Care Provider David Brewer MD Unavailable [phone] Haven Cox MD Unavailable [phone] Daisy Mercado MD Unavailable + [phone] Haven Cox MD Unavailable [phone] Encounter Details Date Type Department Care Team (Late st Contact Info) Description 12/05/2024 Telephone [facility] Medicine Oncology [address] [facility] [address] [place] [address] Lissette Ortiz, AUSTEN Social History Tobacco Use Types Packs/Day Years Used Date Smoking Tobacco: Never Smokeless Tobacco: Never Alcohol Use Standard Drinks/Week Comments No 0 (1 standard drink = 0.6 oz pur e alcohol) OASIS D0700: Social Isolation Answer Da te Recorded Frequency of experiencing loneliness or isolatio n Never 11/26/2024 OASIS A1250: Transportation Answer Date Recorded Lack of Transportation (Medical) No 11/26/2024 Lack of Transportation (Non-Medical) No 11/26/2024 Patient Unable or Declines to Respond No 11/26/2024 OASIS B1300: Health Literacy Answer Devan e Recorded Frequency of needing help to read materials from doctor or pharmacy Sometimes 11/26/2024 [facility] Utilities Answer Date Recorded In the past 12 months has th e electric, gas, oil, or water company threatened to shut off services in your home? No 10/22/2024 Social Connection and Isolation Panel Answer Date Recorded In a typical week, how many times do you talk on the phone with family, friends, or neighbors? More than three times a week 10/22/2024 How often do you get togethe r with friends or relatives? More than three times a week 10/22/2024 How often do you attend chur ch or yarsanism services? Never 10/22/2024 Do you belong to any clubs o r organizations such as latter-day groups, unions, fraternal or athletic groups, or [...] in a mcfp (including now)? No 02/27/2023 Housing Stability Vital Sign Answer Devan e Recorded In the last 12 months, was t here a time when you were not able to pay the mortgage or rent on time? No 10/22/2024 In the past 12 months, how m any times have you moved where you were living? 0 10/22/2024 At any time in the past 12 m [facility], were you homeless or living in a mcfp (including now)? No 10/22/2024 Personal Safety Answer Date Recorded Have you ever been in or are you currently in a harmful physical or emotional relationship or is someone making you feel afraid or unsafe? 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 [facility] requiring [facility] for MSIR due to quantity limits. Called [facility] to initiate PA. PA approved: [id number] [facility] and [facility] notified. [facility] only able to fill 15 day supply due to national morphine shortage, will request refill early. documented in this encounter Plan of Treatment Not on file documented as of this encounter Visit Diagnoses Not on filedocumented in this encounter Care Teams Hop Sorter Relationship Specialty Start Date End Date Leonidas Rubio MD [address] [place] [address] PCP - General Family Medicine 09/05/24 Arianna Persaud PA [address] [place] [address] Physician Air Purifier Servicer 08/29/24 David Brewer MD [address] [place] [address] Referring Physician Gastroenterology 09/23/24 Haven Cox MD [address] [place] [address] Consulting Physician Medical Oncology 09/23/24 Daisy Mercado MD [address] [facility] [address] [place] [address] Consulting Physician General Surgery 09/23/24 Haven Cox MD [address] [place] [address] Consulting Physician Medical Oncology 10/28/24 documented as of this encounter
--- OUTSIDE RECORDS SUMMARY | 2024-12-06 15:24 | XMS_ITS | Encounter Summary ---
Author Organization [facility] Address [address] [place] [address] Phone Care Team Providers Care Air Brake Adjuster Name Role Phone Arianna Persaud Unavailable +- [phone] Leonidas Rubio MD Primary Care Provider David Brewer MD Unavailable [phone] Haven Cox MD Unavailable [phone] Daisy Mercado MD Unavailable + [phone] Haven Cox MD Unavailable [phone] Encounter Details Date Type Department Care Team (Late st Contact Info) Description 12/06/2024 Telephone [facility] Medicine Oncology [address] [facility] [address] [place] [address] Lissette Ortiz, AUSTEN Social History [...] materials from doctor or pharmacy Sometimes 11/26/2024 [facility] Utilities Answer Date Recorded In the [...] attend chur ch or buddhism services? Never 10/22/2024 Do you belong to any clubs o r organizations such as religion groups, unions, fraternal or athletic groups, or [...] in a detention (including now)? No 02/27/2023 Housing Stability Vital [...] time in the past 12 m [facility], were you homeless or living in a detention (including now)? No 10/22/2024 Personal Safety Answer Date Recorded Have you ever been in or are you currently in a harmful physical or emotional relationship or is someone making you feel afraid or unsafe? Denies 10/21/2024 Comments No Sex and Gender Information Value Date Recorded Sex Assigned at Not on file Legal Sex Female 6:30 PM THREAT MONITORING ANALYST Gender Identity Not on file Sexual Orientation Not on file documented as of this encounter Miscellaneous Notes * Telephone Encounter - Lissette Ortiz RN - 12/06/2024 12:44 PM CDT Patient called reporting shortness of breath and difficulty breathing, advised to go to local ED assoon as possible. Patient agreeable. documented in this encounter Plan of Treatment Not on file documented as of this encounter Visit Diagnoses Not on filedocumented in this encounter Care Teams Air Brake Adjuster Relationship Specialty Start Date End Date Leonidas Rubio MD [address] [place] [address] PCP - General Family Medicine 09/05/24 Arianna Persaud PA [address] [place] [address] Physician Platform Mill Supervisor 08/29/24 David Brewer MD [address] [place] [address] Referring Physician Gastroenterology 09/23/24 Haven Cox MD [address] [place] [address] Consulting Physician Medical Oncology 09/23/24 Daisy Mercado MD [address] [facility] [address] [place] [address] Consulting Physician General Surgery 09/23/24 Haven Cox MD [address] [place] [address] Consulting Physician Medical Oncology 10/28/24 documented as of this encounter
--- OUTSIDE RECORDS SUMMARY | 2024-12-06 15:24 | XMS_ITS | Clinical Summary ---
Author Organization [facility] Address [address] [place] [address] Care Team Providers Care Airplane Cleaner Name Role Phone Arianna Persaud Unavailable [phone]- [phone] Leonidas Rubio MD Primary Care Provider David Brewer MD Unavailable [phone] Kalli Cox M Unavailable Daisy Mercado MD Unavailable [phone] Kalli Cox MD Unavailable Allergies Active Allergy [...] needed for pain 30 g 1 Active al & mag hydroxide with simethicone-diphe nhydramine-lidoca ine (MAGIC MOUTHWASH) suspension [id number]: Pancreatic adenocarcinoma (HCC) Swish and swallow 10-15 mL every 4 (four) hours as needed (prevention and treatment of chemotherapy- induced mouth sores) 480 mL 3 Active potassium chloride ER 20 mEq CR tabletIndications :Pancreatic adenocarcinoma (HCC) TAKE 1 TABLET(20 MEQ) BY MOUTH DAILY 90 tablet Active pancrelipase (Zenpep) 40,000-126,000- 168,000 unit per [...] with self cath) 50 each 3 Active furosemide (LASIX) 20 mg tabletIndications :Edema,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 Take 1 tablet (20 mg total) by mouth daily 30 tablet 2 025 2025 Active diphenoxylate-atr opine (LOMOTIL) 2.5-0.025 mg per tabletIndications :diarrhea Take 1 tablet by mouth 4 (four) times a day as needed for diarrhea 120 tablet 025 09/11/ 2025 Active morphine (MSIR) 30 mg tabletIndications :Pain Take 1.5 tablets (45 mg total) by mouth every 4 (four) hours as needed for pain 270 tablet 025 2024 Active morphine ER (MS CONTIN) 30 mg 12 hr tabletIndications :severe chronic pain requiring long-term opioid treatment Take 1 tablet (30 mg total) by mouth 3 (three) times a day 90 tablet 025 2024 Active furosemide (LASIX) 20 mg tabletIndications :Edema,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 Take 1 tablet (20 mg total) by mouth daily 30 tablet 2 025 2024 Discontinued(R eorder) pancrelipase (Zenpep) 40,000-126,000- 168,000 unit per capsuleIndication s:exocrine pancreatic insufficiency Take 3 capsules by mouth 3 (three) times a day with meals 270 capsule 2024 Discontinued(R eorder) morphine ER (MS CONTIN) 15 mg 12 hr tabletIndications :severe chronic pain requiring long-term opioid treatment Take 1 tablet (15 mg total) by mouth 2 (two) times a day 60 tablet 2024 Discontinued diphenoxylate-atr opine (LOMOTIL) 2.5-0.025 mg per tabletIndications :diarrhea Take 1 tablet by mouth 4 (four) times a day as needed for diarrhea 90 tablet 025 2024 Discontinued(R eorder) pancrelipase (Zenpep) 20,000 units of lipase per capsule Take 1 capsule by mouth as needed for with snacks (up to 6 snacks per day) 240 capsule 3 2024 Discontinued(A lternate therapy) morphine (MSIR) 15 mg tabletIndications :Pancreatic adenocarcinoma (HCC) Take 1 tablet (15 mg total) by mouth every 4 (four) hours as needed for pain 120 tablet 025 2024 Discontinued(A lternate therapy) morphine (MSIR) 30 mg tabletIndications :Pain Take 0.5 tablets (15 mg total) by mouth every 4 (four) hours as needed for pain 60 tablet 025 2024 Discontinued morphine ER (MS CONTIN) 30 mg 12 hr tabletIndications :severe chronic pain requiring long-term opioid treatment Take 1 tablet (30 mg total) by mouth every 12 (twelve) hours 60 tablet 025 2024 Discontinued(A lternate therapy) pancrelipase (Zenpep) 40,000-126,000- 168,000 unit per capsuleIndication [...] (discomfort) 45 mL 1 025 2024 Discontinued morphine (MSIR) 30 mg tabletIndications :Pain Take 0.5 tablets (15 mg total) by mouth every 4 (four) hours as needed for pain 60 tablet 025 2024 Discontinued morphine (MSIR) 30 mg tabletIndications :Pain Take 0.5 tablets (15 mg total) by mouth every 4 (four) hours as needed for pain 60 tablet 025 2024 Discontinued(A lternate therapy) Active Problems Problem Noted Date Diagnosed Date Prolapse of vaginal vault after hysterectomy Feeling of incomplete bladder emptying Lymphedema 10/25/2024 Assessment & Plan (10/25/2024 9:03 [...] Hgb. - pelvis US pending - outpatient door glass installer follow up Assessment & Plan (10/24/2024 1:44 PM CDT): Reports recent vaginal spotting when wiping. Stable Hgb. - pelvis US - outpatient door glass installer follow up Assessment & Plan (10/23/2024 3:54 PM CDT): Reports recent vaginal spotting when wiping. Stable Hgb. - pelvis US - outpatient door glass installer follow up Moderate malnutrition 10/22/2024 Left upper [...] onc c/s - continue home Creon - PT/OT/SUPERINTENDENT SANITATION and RD consult for falls and dysphagia [...] onc c/s - continue home Creon - PT/OT/SUPERINTENDENT SANITATION and RD consult for falls and dysphagia [...] onc c/s - continue home Creon - PT/OT/SUPERINTENDENT SANITATION and RD consult for falls and dysphagia [...] Oncology consult - continue home Creon - PT/OT/SUPERINTENDENT SANITATION and RD consult for falls and dysphagia Pancreatic mass 09/04/2024 Elevated liver function tests 09/04/2024 Intractable pain 02/25/2023 Dizziness 11/07/2022 Mixed anxiety and depressive disorder 06/21/2022 Assessment & Plan (06/21/2022 7:25 PM HIGH DENSITY FINISHING OPERATOR): Worsening after of her mother in [...] opium Assessment & Plan (06/21/2022 7:16 PM HIGH DENSITY FINISHING OPERATOR): Ongoing for approximately 1 week after finishing a course of cefdinir for UTI. No more urinary symptoms or abdominal pain. No acute findings on exam. Will order CDiff test. Advised on Bowel rest: push fluids, bland high fiber diet. Continue immodium if needed. Vulvovaginitis 06/20/2022 Assessment & Plan (06/21/2022 7:17 PM HIGH DENSITY FINISHING OPERATOR): S/p cefdinir course for UTI. Denies discharge or genital lesions. exam deferred per pt request. Rxd Diflucan as directed. Use mild non-fragrant soaps/lotions. Recurrent UTI 06/08/2022 Assessment & Plan (06/08/2022 2:35 PM HIGH DENSITY FINISHING OPERATOR): Currently on Abx for treatment. Patient [...] hypotension Assessment & Plan (06/21/2022 7:12 PM HIGH DENSITY FINISHING OPERATOR): BP stable in office today on current therapy. Continue current regimen and low salt diet. Stay hydrated. Assessment & Plan (06/08/2022 2:36 PM HIGH DENSITY FINISHING OPERATOR): Chronic and mildly elevated. Goal < [...] elsewhere Assessment & Plan (06/08/2022 2:35 PM HIGH DENSITY FINISHING OPERATOR): Chronic and stable. 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 with meeting specialist Assessment & Plan (12/23/2021 12:10 PM [...] Encounters Date Type Department Care Team Description 12/07/19 25 Telephone [facility] Medicine Oncology [facility] Floor 5 [place] [address] Lissette Ortiz, RN 12/06/19 Telephone [facility] Medicine Oncology [address] [facility] Floor 5 [place] [address] Lissette Ortiz RN 12/03/19 1:00 PM CDT Office Visit [facility] Medicine Oncology [address] [facility] [address] [place] [address] Kalli Cox MD Pancreatic adenocarcinoma (HCC) (Primary Dx) 12/03/19 12:30 PM CDT Clinical Support [facility] at [facility] [address] [facility] [place] [phone] Pancreatic adenocarcinoma (HCC) 12/03/19 11:00 AM CDT Office Visit [facility] Medicine Obstetrics and Gynecology [address] [facility] 7th Floor [address] [place] [address] Rakan Martinez MD 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 Dx); Feeling of incomplete bladder emptying 12/03/19 Telephone [facility] Oncology [address] [facility] [address] [place] [address] Rolando Connor RN 11/28/19 2:50 PM CDT - 11/28/19 11:59 PM CDT Hospital Encounter [facility] Imaging [address] [place] [address] Pancreatic adenocarcinoma (HCC) Discharge Disposition: Discharge to home or self care 11/27/19 2:00 PM CDT Home Care Visit [address] [place] [address] Shilpi Eng, PT PT OASIS DISCHARGE 11/27/19 11:00 AM CDT Home Care Visit [address] [place] [address] Edison Lopez, AUSTEN SN DISCIPLINE DISCHARGE 11/27/19 Home Care Visit [address] [place] [address] Fawad Anderson, PORTABLE SAWMILL OPERATOR CASE COMMUNICATION 11/26/19 25 Home Care Visit [address] [place] [address] Ana Adams RN SN TRIAGE ENCOUNTER 11/26/19 25 Home Care Visit [address] [place] [address] Criselda Merchant RN SN TRIAGE ENCOUNTER 11/21/19 25 Home Care Visit [address] [place] [address] Criselda Merchant RN SN TRIAGE ENCOUNTER 11/19/19 25 1:00 PM CDT Clinical Support [address] 1st [place] [address] Yahaira Chávez, PhD 11/19/19 25 Telephone [facility] Outpatient Health - Palliative Care [address] [facility] [place] [place] [address] Gracia Kelsey RN 11/19/19 25 Home Care Visit [address] [place] [address] Fawad Anderson, PORTABLE SAWMILL OPERATOR CASE COMMUNICATION 11/17/19 25 9:00 AM CDT Home Care Visit [address] [place] [address] Shilpi Eng, PT PT INITIAL EVALUATION 11/15/19 25 Home Care Visit [address] [place] [address] Gladis Staley, AUSTEN SN TRIAGE ENCOUNTER 11/15/19 25 Telephone [facility] Medicine Oncology [address] [facility] Floor 5 [place] [phone] Jamee Fine NP 11/14/19 25 11:30 AM CDT Home Care Visit [address] [place] [address] Fawad Anderson LCSW CERTIFICATION TECHNICIAN INITIAL EVAL 11/14/19 Home Care Visit [address] [place] [address] Fawad Anderson LCSW CERTIFICATION TECHNICIAN DISCIPLINE DISCHARGE 11/13/19 10:07 AM CDT - 11/13/19 11:59 PM CDT Hospital Encounter [facility] [address] [place] [address] Dysuria Discharge Disposition: Discharge to home or self care 11/13/19 9:00 AM CDT Office Visit [facility] Medicine Obstetrics and Gynecology [address] [facility] 7th Floor [address] [place] [address] Jackie Szymanski MD Dysuria (Primary Dx); Vaginal atrophy; Uterine prolapse; Urinary retention 11/13/19 Home Care Visit [place] [address] [address] [place] [address] Fawad Anderson LCSW CASE COMMUNICATION 11/13/19 Home Care Visit [place] [address] [address] [place] [address] Edison Lopez RN CASE COMMUNICATION 11/12/19 10:00 AM CDT Office Visit [facility] Medicine Oncology 10 [facility] [address] [place] [phone] Kalli Cox MD Pancreatic adenocarcinoma (HCC) (Primary Dx); Vaginal spotting 11/12/19 9:00 AM CDT Clinical Support [facility] 10 [facility] [place] [address] Pancreatic adenocarcinoma (HCC) 11/12/19 25 Telephone [facility] Medicine Oncology [address] [facility] Floor 6 [place] [address] Lissette Ortiz, AUSTEN 11/09/[address] [facility] Care [facility] Advanced Medicine ([facility]) [address] [place] [address] Ivet Domingo NP 11/09/19 Telephone [facility] Medicine Oncology [address] [facility] Floor 6 [place] [phone] Lissette Ortiz, AUSTEN 11/08/19 Home Care Visit [place] [address] [address] [place] [address] Shilpi Eng, PT CASE COMMUNICATION 11/07/19 10:30 AM CDT Clinical Support [facility] [address] [place] [address] Advanced Medicine 1st [place] [address] Yahaira Chávez, PhD 11/06/19 12:30 PM CDT - 11/06/19 11:59 PM CDT Hospital Encounter [facility] Radiology Echo Lab [address] [place] [address] Pancreatic adenocarcinoma (HCC); Bilateral lower extremity edema Discharge Disposition: Discharge to home or self care 11/06/19 Telephone [facility] Medicine Oncology [address] [facility] Floor 6 [place] [address] Lissette Ortiz, AUSTEN 11/06/19 Telephone [facility] Medicine Oncology 10 [facility] [address] [place] [phone] Talia Serna CMA 11/05/19 12:30 PM CDT Home Care Visit [address] [place] [address] Edison Lopez, AUSTEN SN OASIS START OF CARE 11/05/19 Plan of Care Documentation [address] [place] [address] 11/02/19 Telephone [facility]s [facility] Gynecology Clinic [address] [facility] 3rd Floor [address] [place] [address] Wesley Sanchez RN 11/02/19 Telephone Obstetrics and Gynecology Clinic [address] [facility] 3rd Floor [address] [place] [address] Wesley Sanchez, RN 11/01/19 Telephone [facility] Medicine Oncology [address] [facility] Floor 1, [address] [place] [address] Edison [place], RN 11/01/19 25 Orders Only [facility] Oncology [address] [facility] Floor 1, [address] [place] [address] Edison [place], AUSTEN 11/01/19 Telephone [facility] [address] [facility] [address] [place] [address] Ashley Tello RN 11/01/19 Telephone [facility] [address] [facility] [address] [place] [address] Ashley Tello, RN 10/29/19 10:15 AM CDT Office Visit [facility] Oncology [address] [place] [address] [address] [place] [address] Kalli Cox MD Pancreatic adenocarcinoma (HCC) (Primary Dx); Bilateral lower extremity edema 10/29/19 9:15 AM CDT Clinical Support [facility] at [address] [address] Pancreatic adenocarcinoma (HCC) 10/29/19 Documentation [facility] Medicine Oncology [address] [place] [address] [address] [place] [address] Katt Rios, ADAMARIS 10/26/19 Orders Only [address] [address] Kalli Cox MD Vaginal spotting (Primary Dx) 10/24/19 2:17 PM CDT - 10/24/19 11:59 PM CDT Hospital Encounter [facility] Radiology [address] [place] [address] Discharge Disposition: Discharge to home or self care 10/23/19 3:25 PM CDT [facility] [address] [address] 10/22/19 3:30 PM CDT - 10/26/19 3:25 PM CDT Hospital Encounter [address] [address] Kalli Cox MD Tapiavala, Shaili Jayshil, MD [...] care 10/22/19 12:00 PM CDT Ancillary Procedure [facility] Medicine Vascular Lab IP [address] [address] 10/21/19 11:16 PM CDT - 10/21/19 11:59 PM CDT Hospital Encounter [facility] ([facility]) [address] [place] [address] Discharge Disposition: Discharge to home or self care 10/21/19 25 Telephone [facility] Oncology [address] [facility] Floor 5 [place] [address] Jamee Fine NP 10/20/19 25 Telephone [facility] Medicine Oncology [address] [facility] Floor 6 [place] [address] 10/18/19 25 10:45 AM CDT [facility] at [address] [address] Dehydration (Primary Dx); Pancreatic adenocarcinoma (HCC) 10/18/19 25 9:45 AM CDT Lab [facility] Cancer [place] at [address] [place] [address] Pancreatic adenocarcinoma (HCC) 10/17/19 25 Telephone [facility] Oncology [address] [place] [address] Floor 5 [place] [address] Lissette Ortiz, RN 10/16/19 25 10:00 AM CDT Infusion [facility] at [address] [place] [address] Pancreatic adenocarcinoma (HCC) (Primary Dx) 10/16/19 25 Documentation [facility] at [address] [place] [address] 10/16/19 25 Telephone [facility] Oncology [address] [place] [address] Floor 6 [place] [address] Kalli Cox MD 10/16/19 25 Documentation [facility] Oncology [address] [place] [address] [address] [place] [address] Katt Rios LCSW 10/16/19 25 Orders Only [facility] Oncology [address] [place] [address] Floor 5 [place] [address] Lissette Ortiz, RN Pancreatic adenocarcinoma (HCC) (Primary Dx) 10/15/19 25 7:30 AM CDT Clinical Support [facility] at [address] [place] [address] Pancreatic adenocarcinoma (HCC) 10/15/19 25 Orders Only [facility] Oncology [address] [place] [address] Floor 5 [place] [address] Lissette Ortiz, RN Pancreatic adenocarcinoma (HCC) (Primary Dx) 10/15/19 25 Documentation [facility] at [address] [place] [address] 10/15/19 Documentation [facility] Medicine Oncology [address] [facility] [address] [place] [address] Katt Rios LCSW 10/11/19 8:50 AM CDT - 10/11/19 11:59 PM CDT Hospital Encounter [facility] Imaging [address] [address], [place] [address] Mary Kay Campuzano, RT Sj, Taylor Quintana, RN Kacie Cain RN Pancreatic adenocarcinoma (HCC) Discharge Disposition: Discharge to home or self care 10/11/19 7:09 AM CDT - 10/11/19 11:59 PM CDT Hospital Encounter [facility] Imaging [address] [place] [address] Medical Office Building 2 [place] [address] Pancreatic adenocarcinoma (HCC) Discharge Disposition: Discharge to home or self care 10/10/19 Telephone [facility] Imaging [address] [place] [address] Leslie Armando RN 10/10/19 Telephone [facility] Imaging [address] [address] [place], [place] [address] Megan Hsu RN 10/08/19 3:45 PM CDT Lab [facility] Center at [address] [place] [address] Pancreatic adenocarcinoma (HCC) 10/08/19 2:00 PM CDT Office Visit [facility] Medicine Oncology [address] [place] [address] [address] [place] [address] Kalli Cox MD Pancreatic adenocarcinoma (HCC) (Primary Dx); Pancreatic mass 09/28/19 1:45 PM CDT Office Visit [facility] Cardiology [facility] [address] [place] [address] Onesimo George MD Atrial fibrillation status post cardioversion (HCC) (Primary Dx); History of cardiac radiofrequency ablation; Essential hypertension; Pancreatic adenocarcinoma (HCC); NOMI on CPAP; Lipid screening 09/21/19 Results Follow-Up [facility] Gastroenterology [address] [facility] Office Building 4, [address] [place] [address] David Brewer MD CT Body Outside Consult 09/21/19 Results Follow-Up [facility] Gastroenterology [address] [facility] Office Building 4, [address] [place] [address] David Brewer MD Surgical pathology 09/20/19 12:40 PM CDT Anesthesia Event [facility] Digestive Disease [place] [address] [facility] [address] [place] [address] Travis Whittington MD 09/20/19 10:17 AM CDT - 09/20/19 2:37 PM CDT Emergency [facility] [address] [facility] [address] [place] [address] Morgan Celestin MD Das, Koushik Kumar, MD Fall, initial encounter (Primary Dx); Pancreatic mass Discharge Disposition: Discharge to home or self care 09/20/19 9:30 AM CDT - 09/20/19 10:30 AM CDT Surgery [facility] [address] [facility] [address] [place] [address] David Brewer MD ESOPHAGOGASTRODUODENOSCOPY ULTRASOUND FINE NEEDLE ASPIRATION/BIOPSY [GI534] 09/19/19 Telephone [facility] Medicine Hepatobiliary, Pancreatic, & Gastrointestinal Surgery [address] [facility] 12th Floor, [place] [address] Hilda Love PA 09/18/19 12:15 PM CDT Lab [facility] [address] [place] [address] Pancreatic mass; 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, unspecified; Encounter for follow-up examination after completed treatment for conditions other than malignant neoplasm 09/18/19 8:30 AM CDT Office Visit [facility] Surgery [address] [place] [address] [address] [place] [address] Daisy Mercado MD Pancreatic mass (Primary Dx); Other specified diseases of pancreas; Encounter for follow-up examination after completed treatment for conditions other than malignant neoplasm; Neoplasm of uncertain behavior of other specified digestive organs 09/18/19 Telephone [facility] Surgery [address] [place] [address] [address] [place] [phone] Susan Marroquin RN 09/14/19 12:53 PM CDT - 09/14/19 11:59 PM CDT Hospital Encounter [facility] ([facility]) [address] [place] [phone] Pancreatic mass Discharge Disposition: Discharge to home or self care 09/14/19 25 Orders Only [facility] Surgery [address] [place] [address] [address] [place] [address] Ana Sánchez PA Liver lesion (Primary Dx) 09/14/19 25 Orders Only [facility] Gastroenterology [address] [place] [address] Office [address], [address] [place] [address] David Brewer MD Elevated liver function tests (Primary Dx) 09/13/19 25 Telephone [facility] Gastroenterology [address] [place] [address] Office Building [address], [address] [place] [address] Arlyn Segovia, embossing press operator call 09/13/19 25 Orders Only [facility] Gastroenterology [address] [place] [address] Office Building [address], [address] [place] [address] Arlyn Segovia, RN Pancreatic mass (Primary Dx) 09/12/19 25 Results Follow-Up [facility] Gastroenterology [address] [place] [address] Office Building [address], [address] [place] [address] David Brewer MD Surgical pathology 09/12/19 Telephone [facility] Surgery [address] [facility] [address] [place] [phone] Susan Marroquin RN 09/07/19 1:07 PM CDT Anesthesia Event [facility] GI Center [address] [place] [phone] Wayne Nicholson MD 09/07/19 12:30 PM CDT - 09/07/19 1:[address] [facility] GI Center [address] [place] [address] David Brewer MD ESOPHAGOGASTRODUODENOSCOPY ULTRASOUND GUIDE LIMITED 09/07/19 11:07 AM CDT - 09/07/19 4:10 PM CDT Hospital Encounter [facility] GI Center [address] [place] [phone] Geoffrey Shaver MD Das, Koushik Kumar, MD Pancreatic mass; Elevated liver function tests Discharge Disposition: Discharge to home or self care 09/07/19 10:35 AM CDT Lab [facility] Outpatient Lab [address] [place] [phone] Pancreatic mass; Elevated liver function tests 09/07/19 6:50 AM CDT - 09/07/19 11:59 PM CDT Hospital Encounter [facility] GI Center [address] [place] [phone] Upper abdominal pain Discharge Disposition: Discharge to home or self care 09/07/[address] [facility] GI Center [address] [place] [phone] David Brewer MD 09/06/19 1:04 PM CDT - 09/06/19 11:59 PM CDT Hospital Encounter [facility] ([facility]) [address] [place] [id number] Diagnosis unknown Discharge Disposition: Discharge to home or self care from Last 3 Months Surgical History Surgery Date Site/Laterality Comments GASTRECTOMY S/P laparoscopic sleeve gastrectomy REPLACEMENT TOTAL KNEE Right HIP ARTHROPLASTY Bilateral TONSILLECTOMY PORT PLACEMENT CHEST >5 YEARS 10/10/2024 N/A PELVIC LAPAROSCOPY CERVIX LESION DESTRUCTION HD BARIATRIC SURGERY SECTION Medical History Medical History Date Comments Knee pain 2009 Rt knee replacem ent// Dr. Sutherland tonsilectomy 1960 tonsilectomy ophrectomy 1960 ophrectomy Osteoarthritis Osteoarthritis Hypertension Hypertension Atrial fibrillation (HCC) Atrial fibrillation Lt hip replacement// JVR 2011 Lt hip replacement// JVR Ambulates with cane Acute cystitis with hematuria NOMI (obstructive sleep apnea) S/P laparoscopic sleeve gastrectomy UTI (urinary tract infection) Anxiety Neck injury Ulcerative colitis GERD (gastroesophageal reflux disease) Pancreatic cancer (HCC) 2024 History of chemotherapy 2024 Pancreat ic cancer Female infertility Depression 1989 Anemia Family History Medical History Relation Name Comments Breast cancer Cousin Cancer Father Breast cancer Mother's Sister 1 Breast cancer Mother's Sister 2 Bhavana Depression Mother's Sister 2 Bhavana Lung cancer Other 1 Family history of Cancer, lung; Hypertension Other 2 Family history of Hypertension; Osteoarthritis Other 3 Family histor y of Osteoarthritis; Osteoporosis Other 4 Family history of Osteoporosis; Relation Name Status Comments Cousin Father Mother's Sister 1 Mother's Sister 2 Bhavana Other 1 Other 2 Other 3 Other [...] materials from doctor or pharmacy Sometimes 11/26/2024 [facility] Utilities Answer Date Recorded In the past 12 months has th e [employer], gas, oil, or water company threatened to [...] often do you attend chur ch or anabaptist services? Never 10/22/2024 Do you belong to [...] in a residential (including now)? No 02/27/2023 Housing Stability Vital Sign Answer Devan e Recorded In the last 12 months, was t here a time when you were not able to pay the mortgage or rent on time? No 10/22/2024 In the past 12 months, how m any times have you moved where you were living? 0 10/22/2024 At any time in the past 12 m [facility], were you homeless or living in a residential (including now)? No 10/22/2024 Personal Safety Answer Date Recorded Have you ever been in or are you currently in a harmful physical or emotional relationship or is someone making you feel afraid or unsafe? Denies 10/21/2024 Comments No Sex and Gender Information Value Date Recorded Sex Assigned at Not on file Legal Sex Female 6:30 PM HIGH DENSITY FINISHING OPERATOR Gender Identity Not on file Sexual [...] Sign Reading Time Taken Comments Blood Pressure 121/71 12/02/2024 1:37 PM CDT Pulse 71 12/02/2024 1:37 PM CDT Temperature 36.4 C (97.6 F) 12/02/2024 1:37 PM CDT Respiratory Rate 16 12/02/2024 1:37 PM CDT Oxygen Saturation 98% 12/02/2024 1:37 PM CDT Inhaled Oxygen Concentration - - Weight 85.9 kg (189 lb 6 oz) 12/02/2024 1:37 PM CDT Height 154.9 cm (5' 1) 12/02/2024 11:28 AM CDT Body Mass Index 35.78 12/02/2024 11:28 AM CDT Plan of Treatment Health Maintenance Due Date Last Done Comments Colon Cancer Screening-Colonoscopy 1950 Hepatitis C Screening 1950 Osteoporosis Screening-Bone Density Scan 1949 Hepatitis B Screening 12/26/1967 Pneumococcal vaccine 65+ (1 of 2 - PCV) 1968 Zoster Vaccine (1 of 2) 12/26/1999 Well Visit 65+ 2014 Covid-19 Vaccine (3 - Pfizer risk series) 07/10/2020 06/12/2020, 05/22/2020 DTaP/Tdap/Td Vaccine (2 - Td or Tdap) 03/19/2024 03/19/2014 Influenza Vaccine (#1) 2024 01/15/2015, 2008 Depression Screening 10/20/2025 10/20/2024, 02/25/2023, 11/06/2022, Additional history exists Breast Cancer Screening-Mammogram 10/24/2025 025, 09/09/2014 Fall Risk Assessment 10/25/2025 10/25/2024, 10/20/2024, 09/27/2024, Additional history exists Medical Devices Implanted Type Area Print Production Coordinator Device Identifier Shelf Expiration Date Model / Serial / Lot Conmed Chris Viabil 10mm X 6cm Shortwire [id number] - [id number] - [id number] Implanted:Qty: 1 on 09/06/2024 by David Brewer MD at [facility] Stent N/A: Bile Duct Conmed Chris 06/19/2027 [id number] / [id number] / [employer] Excela Low Porfile Power Port 8fr 1.6mm 1 Lumen [id number] - [id number] Implanted:Qty: 1 on 10/10/2024 at [facility] [employer] 05/07/2029 [id number] / / [id number] Procedures Procedure Name Priority Date/Time Associated Diagnosis Comments EGFR STAT 12/02/2024 1:27 PM CDT Pancreatic adenocarcinoma (HCC) DIFFERENTIAL AUTO Routine 12/02/2024 1:27 PM CDT Pancreatic adenocarcinoma (HCC) CBC WITH AUTO DIFFERENTIAL Routine 12/02 1:27 PM CDT Pancreatic adenocarcinoma (HCC) COMPREHENSIVE METABOLIC PANEL STAT 08 / 1:27 PM CDT Pancreatic adenocarcinoma (HCC) CANCER ANTIGEN 19-9 Routine 12/02/2024 1:27 PM CDT Pancreatic adenocarcinoma (HCC) CT CHEST ABDOMEN PELVIS W CONTRAST Schedule Routine, Read Routine (OP Routine) 11/27/2024 3:06 PM CDT Pancreatic adenocarcinoma (HCC) URINE CULTURE Routine 11/12/2024 1:12 PM CDT [...] AM CDT VANCOMYCIN LEVEL TROUGH Timed 10/24/19 25 11:26 PM CDT POCT GLUCOSE DEVICE Routine 10/23/2024 8:27 PM CDT POCT GLUCOSE DEVICE Routine 10/23/2024 5:50 PM CDT FL MODIFIED BARIUM SWALLOW W VIDEO IP Routine 10/23/2024 3:00 PM CDT SUPERINTENDENT SANITATION EVALUATE AND TREAT VIDEOFLUOROSCOPIC SWALLOW STUDY Routine [...] STAT 4:00 PM CDT Pancreatic adenocarcinoma (HCC) [id number] Routine 10/07/2024 3:52 PM CDT Pancreatic adenocarcinoma [...] from Last 3 Months Results * eGFR (12/02/2024 1:27 PM CDT) eGFR >90 >=60 mL/min/1. 73 m2 [...] was last reviewed 2021. Testing performed by: [facility], [address] [place] [address] Blood 12/02/2024 1:27 PM CDT 12/02/2024 1:53 PM CDT us [facility]Maurisio Cox MD LAB BLOOD ORDERABLES Gail l Result [facility] [address] [place] [address] * Differential, auto (12/02/2024 1:27 PM CDT) Neutrophil abs 3.69 1.50 - 6.50 K/cumm Comment:Testing performed by : [facility], [facility] [address], [address] [place] [address] Imm gran abs 0.02 0.00 - 0.10 K/cumm ENRIQUE TORRES Comment:Testing performed by : [facility], [facility], [address] [place] [address] Lymphocyte abs 1.15 0.80 - 3.30 K/cumm CERNER BJWCH Comment:Testing performed by : [facility], [facility], [address] [place] [address] Monocyte abs 0.57 0.20 - 0.80 K/cumm CERNER BJWCH Comment:Testing performed by : [facility], [facility], [address] [place] [address] Eosinophil abs 0.10 0.00 - 0.50 K/cumm CERNER BJWCH Comment:Testing performed by : [facility], [facility], [address] [place] [address] Basophil abs 0.05 0.00 - 0.10 K/cumm CERNER BJWCH Comment:Testing performed by : [facility], [facility], [address] [place] [address] Neutrophil pct 66.1 % CERNER BJWCH Comment: Interpretive Data Percent cell count reference ranges are not reported, since discordance with absolute values may lead to misinterpretation of CBC data. Current Interpretive Data was last revised on 2017. Testing performed by: [facility], [facility], [address] [place] [address] Imm gran pct 0.4 % CERNER BJWCH Comment: Interpretive Data Percent cell count reference ranges are not reported, since discordance with absolute values may lead to misinterpretation of CBC data. Current Interpretive Data was last revised on 2017. Testing performed by: [facility], [facility], [address] [place] [address] Lymphocyte pct 20.6 % CERNER BJWCH Comment: Interpretive Data Percent cell count reference ranges are not reported, since discordance with absolute values may lead to misinterpretation of CBC data. Current Interpretive Data was last revised on 2017. Testing performed by: [facility], [facility], [address] [place] [address] Monocyte pct 10.2 % CERNER BJWCH Comment: Interpretive Data Percent cell count reference ranges are not reported, since discordance with absolute values may lead to misinterpretation of CBC data. Current Interpretive Data was last revised on 2017. Testing performed by: [facility], [facility], [address] [place] [address] Eosinophil pct 1.8 % ENRIQUE TORRES Comment: Interpretive Data Percent cell count reference ranges are not reported, since discordance with absolute values may lead to misinterpretation of CBC data. Current Interpretive Data was last revised on 2017. Testing performed by: [facility] 2, [address] [place] [address] Basophil pct 0.9 % ENRIQUE TORRES Comment: Interpretive Data Percent cell count reference ranges are not reported, since discordance with absolute values may lead to misinterpretation of CBC data. Current Interpretive Data was last revised on 2017. Testing performed by: [facility] 2, [address] [place] [address] Blood 12/02/2024 1:27 PM CDT 12/02/2024 1:29 PM CDT [facility]Maurisio Cox MD LAB BLOOD ORDERABLES Gail l Result [facility] [address] [facility]. [place] [address] * (ABNORMAL) CBC with auto differential (12/02/2024 1:27 PM CDT) WBC 5.58 3.80 - 9.90 K/cumm Comment:Testing performed by : [facility] 2, [address] [place] [address] Hgb 8.1(L) 11.9 - 15.5 g/dL ENRIQUE TORRES Comment:Testing performed by : [facility] 2, [address] [place] [address] Hct 25.5(L) 35.6 - 45.5 % CERNER BJWCH Comment:Testing performed by : [facility], [facility], [address] [place] [address] Plt 224 150 - 400 K/cumm CERNER BJWCH Comment:Testing performed by : [facility] 2, [address] [place] [address] MPV 9.5 9.1 - 12.3 fL CERNER BJWCH Comment:Testing performed by : [place] [address], [address], [place] [address] RBC 2.72(L) 3.90 - 5.20 M/cumm CERNER BJWCH Comment:Testing performed by : [place] [address], [address], [place] [address] MCV 93.8 81.3 - 96.4 fL CERNER BJWCH Comment:Testing performed by : [place] [address], [address], [place] [address] MCH 29.8 27.1 - 33.3 pg CERNER BJWCH Comment:Testing performed by : [place] [address], [address], [place] [address] MCHC 31.8(L) 32.3 - 35.7 g/dL CERNER BJWCH Comment:Testing performed by : [place] [address], [address] [place] [address] RDW CV 15.5(H) 11.1 - 14.9 % CERNER BJWCH Comment:Testing performed by : [facility] 2, [address], [place] [address] RDW SD 53.5(H) 35.7 - 48.1 fL CERNER BJWCH Comment:Testing performed by : [facility] 2, [address], [place] [address] ANC Prelim 3.69 1.50 - 6.50 K/cumm CERNER BJWCH Comment: Interpretive Data The rapid ANC is a preliminary automated count and may vary from the final ANC (Neut Abs) reported in the WBC differential that follows. Current interpretive data was last revised 2024. Testing performed by: [facility], [facility], [address] [place] [address] Blood 12/02/2024 1:27 PM CDT 12/02/2024 1:29 PM CDT [facility] MD LAB BLOOD ORDERABLES Gail l Result Performing Organization Address [facility] Co de Phone Number [facility] [address] [place] [place] [address] * Cancer antigen 19-9 (12/02/2024 1:27 PM CDT) CA 19-9 ag 19.8 0.0 - 35.0 units/mL Comment: Interpretive Data The Sree CA 19-9 assay procedure was used. Results from different manufacturers or methods may not be comparable. Serial testing should be performed using the same method. Testing performed by: [facility], [facility], [place]., [address] Blood 12/02/2024 1:27 PM CDT 12/02/2024 6:11 PM CDT [facility] MD LAB BLOOD ORDERABLES Gail l Result Performing Organization Address [facility] Co de Phone Number [facility] [address]. Department [place] [employer] [place] [address] * (ABNORMAL) Comprehensive metabolic panel (12/02/2024 1:27 PM CDT) Sodium 137 135 - 145 mmol/L Comment:Testing performed by : [facility], [address] [place] [address] Potassium, pl 4.1 3.3 - 4.9 mmol/L ENRIQUE TORRES Comment:Testing performed by : [facility], [address], [place] [address] Chloride 101 97 - 110 mmol/L CERNER BJWCH Comment:Testing performed by : [facility], [address], [place] [address] CO2 28 22 - 32 mmol/L CERNER BJWCH Comment:Testing performed by : [facility], [address], [place] [address] Anion gap 8 2 - 15 mmol/L CERNER BJWCH Comment:Testing performed by : [facility], [address], [place] [address] BUN 14 6 - 25 mg/dL CERNER BJWCH Comment:Testing performed by : [facility], [address], [place] [address] Creatinine 0.70 0.60 - 1.10 mg/dL CERNER BJWCH Comment:Testing performed by : [facility], [address], [place] [address] Glucose 89 70 - 199 mg/dL CERNER BJWCH Comment: [...] was last revised 2022. Testing performed by: [facility], [address], [place] [address] Calcium 8.8 8.5 - 10.3 mg/dL CERNER BJWCH Comment:Testing performed by : [facility], [address], [place] [address] Bilirubin, total 0.4 0.1 - 1.2 mg/dL CERNER BJWCH Comment:Testing performed by : [facility], [address], [place] [address] Protein, pl 5.9(L) 6.5 - 8.5 g/dL CERNER BJWCH Comment:Testing performed by : [facility], [address], [place] [address] Albumin 3.1(L) 3.5 - 5.0 g/dL CERNER BJWCH Comment:Testing performed by : [facility], [address], [place] [address] Alk phos 83 40 - 130 Units/L CERNER BJWCH Comment:Testing performed by : [facility], [address], [place] [address] ALT 11 7 - 45 Units/L CERNER BJWCH Comment:Testing performed by : [facility], [address], [place] [address] AST 22 10 - 45 Units/L CERNER BJWCH Comment:Testing performed by : [facility], [address], [place] [address] Blood 12/02/2024 1:27 PM CDT 12/02/2024 1:53 PM CDT us [facility]'Maurisio Cox MD LAB BLOOD ORDERABLES Gail l Result [facility] [address]. [place] [address] * CT Chest Abdomen Pelvis W Contrast (11/27/2024 3:06 PM CDT) Anatomical Region Laterality Modality Body N/A Computed Tomogra phy 11/27/2024 6:06 PM CDT Impressions 11/27/2024 6:06 PM CDT 1. No change in size of locally extensive pancreatic head mass encasing the superior mesenteric artery, portal, splenic, and superior mesenteric veins, and common bile duct, and possibly invading the duodenum. 2. Interval increase in moderate volume ascites with peritoneal thickening concerning for carcinomatosis and new severe body wall edema. 3. Slight increase in size of small nodules along the right hemidiaphragm dome that could be due to pleural metastases. Electronically signed by: Aubrey Grigsby M.D. Narrative 11/27/2024 6:06 PM CDT EXAMINATION: Computed tomography of the chest, abdomen and pelvis with intravenous contrast HISTORY: Pancreatic cancer restaging. TECHNIQUE: Transaxial computed tomographic images of the chest, abdomen and pelvis were obtained with intravenous contrast according to the standard protocol after the uneventful administration of 100 mL Opti-Ray 350 intravenous contrast. COMPARISON: PET/CT 10/10/[address] 09/13/2024 FINDINGS: Chest: Right internal jugular port catheter tip in right atrium. Increase in size of a nodule along the dome of the right hemidiaphragm suggestive of a pleural nodule, now 9 mm (image 94), previously 4 mm. An 8 mm nodule posterior to this (image 97) also is slightly larger. Calcified right middle lobe and left lower lobe nodules and calcified left hilar and subcarinal lymph nodes are consistent with old granulomatous disease. No enlarged lymph nodes. Dilated central pulmonary arteries which can be seen with pulmonary hypertension, unchanged. Main pulmonary artery diameter 3.5 cm. Ectasia of the ascending aorta measuring 4.0 cm in the sagittal plane. Soft tissue nodule in the region of the right areola is again seen which is favored to represent the nipple on interval mammography and ultrasound. Diffuse edema of the left breast is similar to the PET/CT. Small hiatal hernia with surgical changes of sleeve gastrectomy again seen. No pleural or pericardial effusion. Abdomen/Pelvis: Common bile duct stent again noted. The pancreatic head mass is unchanged in size when measured similarly, approximate 4.0 cm on slice 134. Upstream pancreatic duct dilation and atrophy again noted. The mass continues to encase the superior mesenteric artery, abut the celiac and left renal arteries, and encase the portal, splenic, and superior mesenteric veins, and common bile duct. The portal and splenic veins are severely narrowed and the superior mesenteric vein appears occluded in the region of the mass around the portal splenic confluence. Collateral veins in the upper abdomen are enlarged. The mass abuts and may be invading the duodenum. There is moderate volume ascites which has increased along with new diffuse mesenteric edema and increased diffuse body wall edema which is now severe. Mild peritoneal thickening is seen along the paracolic gutters bilaterally. A small cyst is again seen in hepatic segment 2. No new suspicious liver lesion. Pneumobilia is again noted. The gallbladder is not dilated. There are calcified granulomas in the spleen. Hypoattenuating renal lesions are compatible with cysts or too small to characterize. No adrenal mass. Normal caliber aorta and iliac arteries. No enlarged lymph nodes. Normal urinary bladder. No gastrointestinal tract abnormality. Bone windows show no suspicious osseous lesions. Bilateral hip replacements again seen. Procedure Note Aubrey Grigsby MD - 11/27/2024 EXAMINATION: Computed tomography of the chest, abdomen and pelvis with intravenous contrast HISTORY: Pancreatic cancer restaging. TECHNIQUE: Transaxial computed tomographic images of the chest, abdomen and pelvis were obtained with intravenous contrast according to the standard protocol after the uneventful administration of 100 mL Opti-Ray 350 intravenous contrast. COMPARISON: PET/CT 10/10/[address] 09/13/2024 FINDINGS: Chest: Right internal jugular port catheter tip in right atrium. Increase in size of a nodule along the dome of the right hemidiaphragm suggestive of a pleural nodule, now 9 mm (image 94), previously 4 mm. An 8 mm nodule posterior to this (image 97) also is slightly larger. Calcified right middle lobe and left lower lobe nodules and calcified left hilar and subcarinal lymph nodes are consistent with old granulomatous disease. No enlarged lymph nodes. Dilated central pulmonary arteries which can be seen with pulmonary hypertension, unchanged. Main pulmonary artery diameter 3.5 cm. Ectasia of the ascending aorta measuring 4.0 cm in the sagittal plane. Soft tissue nodule in the region of the right areola is again seen which is favored to represent the nipple on interval mammography and ultrasound. Diffuse edema of the left breast is similar to the PET/CT. Small hiatal hernia with surgical changes of sleeve gastrectomy again seen. No pleural or pericardial effusion. Abdomen/Pelvis: Common bile duct stent again noted. The pancreatic head mass is unchanged in size when measured similarly, approximate 4.0 cm on slice 134. Upstream pancreatic duct dilation and atrophy again noted. The mass continues to encase the superior mesenteric artery, abut the celiac and left renal arteries, and encase the portal, splenic, and superior mesenteric veins, and common bile duct. The portal and splenic veins are severely narrowed and the superior mesenteric vein appears occluded in the region of the mass around the portal splenic confluence. Collateral veins in the upper abdomen are enlarged. The mass abuts and may be invading the duodenum. There is moderate volume ascites which has increased along with new diffuse mesenteric edema and increased diffuse body wall edema which is now severe. Mild peritoneal thickening is seen along the paracolic gutters bilaterally. A small cyst is again seen in hepatic segment 2. No new suspicious liver lesion. Pneumobilia is again noted. The gallbladder is not dilated. There are calcified granulomas in the spleen. Hypoattenuating renal lesions are compatible with cysts or too small to characterize. No adrenal mass. Normal caliber aorta and iliac arteries. No enlarged lymph nodes. Normal urinary bladder. No gastrointestinal tract abnormality. Bone windows show no suspicious osseous lesions. Bilateral hip replacements again seen. IMPRESSION: 1. No change in size of locally extensive pancreatic head mass encasing the superior mesenteric artery, portal, splenic, and superior mesenteric veins, and common bile duct, and possibly invading the duodenum. 2. Interval increase in moderate volume ascites with peritoneal thickening concerning for carcinomatosis and new severe body wall edema. 3. Slight increase in size of small nodules along the right hemidiaphragm dome that could be due to pleural metastases. Electronically signed by: Aubrey Grigsby M.D. [facility] MD IMG CT PROCEDURES Final R esult * Urine culture Urine, clean voided (11/12/2024 1:12 PM CDT) Report Final Report: No growth Urine, clean voided 11/12/2024 1:12 PM CDT 11/12/2024 1:25 PM CDT Narrative ENRIQUE BETANCOURT - 11/13/2024 3:55 PM CDT Testing performed by [facility] ([phone]) Jackie Szymanski MD LAB MICROBIOLOGY - GEN ERAL ORDERABLES Final Result [facility] Department [place] [address] * eGFR (11/11/2024 9:30 AM CDT) eGFR [...] was last reviewed 2021. Testing performed by: [facility], [address] [place] [address] Blood 11/11/2024 9:30 AM CDT 11/11/2024 10:00 AM CDT [facility]Maurisio Cox MD LAB BLOOD ORDERABLES Gail l Result [facility] [address]. Department of Laboratories [place], [place] [id number] * (ABNORMAL) Differential, auto (11/11/2024 9:30 AM CDT) Neutrophil abs 3.94 1.50 - 6.50 K/cumm Comment:Testing performed by : [facility], [facility], [address] [place] [address] Imm gran abs 0.03 0.00 - 0.10 K/cumm ENRIQUE TORRES Comment:Testing performed by : [facility], [facility] 2, [address] [place] [address] Lymphocyte abs 1.28 0.80 - 3.30 K/cumm ENRIQUE TORRES Comment:Testing performed by : [facility], [facility], [address] [place] [address] Monocyte abs 0.92(H) 0.20 - 0.80 K/cumm CERNER BJWCH Comment:Testing performed by : [facility], [facility], [address] [place] [address] Eosinophil abs 0.07 0.00 - 0.50 K/cumm CERNER BJWCH Comment:Testing performed by : [facility], [facility], [address] [place] [address] Basophil abs 0.06 0.00 - 0.10 K/cumm CERNER BJWCH Comment:Testing performed by : [facility], [facility], [address] [place] [address] Neutrophil pct 62.5 % CERNER BJWCH Comment: Interpretive Data Percent cell count reference ranges are not reported, since discordance with absolute values may lead to misinterpretation of CBC data. Current Interpretive Data was last revised on 2017. Testing performed by: [facility], [facility], [address] [place] [address] Imm gran pct 0.5 % CERNER BJWCH Comment: Interpretive Data Percent cell count reference ranges are not reported, since discordance with absolute values may lead to misinterpretation of CBC data. Current Interpretive Data was last revised on 2017. Testing performed by: [facility], [facility], [address] [place] [address] Lymphocyte pct 20.3 % CERNER BJWCH Comment: Interpretive Data Percent cell count reference ranges are not reported, since discordance with absolute values may lead to misinterpretation of CBC data. Current Interpretive Data was last revised on 2017. Testing performed by: [facility], [facility], [address] [place] [address] Monocyte pct 14.6 % CERNER BJWCH Comment: Interpretive Data Percent cell count reference ranges are not reported, since discordance with absolute values may lead to misinterpretation of CBC data. Current Interpretive Data was last revised on 2017. Testing performed by: [facility], [facility], [address] [place] [address] Eosinophil pct 1.1 % [facility] Comment: Interpretive Data Percent cell count reference ranges are not reported, since discordance with absolute values may lead to misinterpretation of CBC data. Current Interpretive Data was last revised on 2017. Testing performed by: [place] [address], [address] [place] [address] Basophil pct 1.0 % [facility] Comment: Interpretive Data Percent cell count reference ranges are not reported, since discordance with absolute values may lead to misinterpretation of CBC data. Current Interpretive Data was last revised on 2017. Testing performed by: [place] [address] [place] [address] Blood 11/11/2024 9:30 AM CDT 11/11/2024 9:41 AM CDT [facility]Maurisio Cox MD LAB BLOOD ORDERABLES Gail l Result [facility] [place] [address] [facility]. [place] [address] * (ABNORMAL) CBC with auto differential (11/11/2024 9:30 AM CDT) WBC 6.30 3.80 - 9.90 K/cumm Comment:Testing performed by : [address] [place] [address] Hgb 8.3(L) 11.9 - 15.5 g/dL ENRIQUE TORRES Comment:Testing performed by : [address] [place] [address] Hct 26.1(L) 35.6 - 45.5 % ENRIQUE TORRES Comment:Testing performed by : [facility] 2, [address] [place] [address] Plt 290 150 - 400 K/cumm CERNER BJWCH Comment:Testing performed by : [facility], [facility], [address] [place] [address] MPV 9.8 9.1 - 12.3 fL CERNER BJWCH Comment:Testing performed by : [facility] 2, [address] [place] [address] RBC 2.83(L) 3.90 - 5.20 M/cumm CERNER BJWCH Comment:Testing performed by : [place] [address], [address] [place] [address] MCV 92.2 81.3 - 96.4 fL CERNER BJWCH Comment:Testing performed by : [place] [address], [place] [address] MCH 29.3 27.1 - 33.3 pg CERNER BJWCH Comment:Testing performed by : [place] [address] [place] [address] MCHC 31.8(L) 32.3 - 35.7 g/dL CERNER BJWCH Comment:Testing performed by : [address] [place] [address] RDW CV 16.1(H) 11.1 - 14.9 % CERNER BJWCH Comment:Testing performed by : [place] [address] [place] [address] RDW SD 54.2(H) 35.7 - 48.1 fL CERNER BJWCH Comment:Testing performed by : [address] [place] [address] ANC Prelim 3.94 1.50 - 6.50 K/cumm CERNER BJWCH Comment: Interpretive Data The rapid ANC is a preliminary automated count and may vary from the final ANC (Neut Abs) reported in the WBC differential that follows. Current interpretive data was last revised 2024. Testing performed by: [address] [place] [address] Blood 11/11/2024 9:30 AM CDT 11/11/2024 9:41 AM CDT Kalli Cox MD LAB BLOOD ORDERABLES Gail garcia Result [facility] [place] [address] [address]. [place] [address] * (ABNORMAL) Comprehensive metabolic panel (11/11/2024 9:30 AM CDT) Sodium 137 135 - 145 mmol/L Comment:Testing performed by : [facility], [address], [place] [address] Potassium, pl 3.8 3.3 - 4.9 mmol/L CERMARCELO BJWCH Comment:Testing performed by : [facility], [address] [place] [address] Chloride 99 97 - 110 mmol/L CERMARCELO BJWCH Comment:Testing performed by : [facility], [address], [place] [address] CO2 29 22 - 32 mmol/L CERNER BJWCH Comment:Testing performed by : [facility], [address] [place] [address] Anion gap 9 2 - 15 mmol/L CERMARCELO BJWCH Comment:Testing performed by : [facility], [address] [place] [address] BUN 12 6 - 25 mg/dL CERNER BJWCH Comment:Testing performed by : [facility], [address], [place] [address] Creatinine 0.80 0.60 - 1.10 mg/dL CERNER BJWCH Comment:Testing performed by : [facility], [address], [place] [address] Glucose 110 70 - 199 mg/dL CERNER [...] was last revised 2022. Testing performed by: [facility], [address], [place] [address] Calcium 9.0 8.5 - 10.3 mg/dL CERNER BJWCH Comment:Testing performed by : [facility], [address], [place] [address] Bilirubin, total 0.3 0.1 - 1.2 mg/dL CERNER BJWCH Comment:Testing performed by : [facility], [address], [place] [address] Protein, pl 6.0(L) 6.5 - 8.5 g/dL CERNER BJWCH Comment:Testing performed by : [facility], [address], [place] [address] Albumin 3.1(L) 3.5 - 5.0 g/dL CERNER BJWCH Comment:Testing performed by : [facility], [address], [place] [address] Alk phos 140(H) 40 - 130 Units/L CERNER BJWCH Comment:Testing performed by : [facility], [address], [place] [address] ALT 13 7 - 45 Units/L CERNER BJWCH Comment:Testing performed by : [facility], [address], [place] [address] AST 23 10 - 45 Units/L CERNER BJWCH Comment:Testing performed by : [facility], [address], [place] [address] Blood 11/11/2024 9:30 AM CDT 11/11/2024 10:00 AM CDT us Moh'Maurisio Cox MD LAB BLOOD ORDERABLES Gail garcia Result ENRIQUE [facility] [address] [facility]. [place] [address] * TRANSTHORACIC ECHO (TTE) COMPLETE W DOPPLER/CF WO CONTRAST (11/05/2024 2:12 PM CDT) EF Mod BP 74 % CONS SCIMAGE Anatomical Region Laterality Modality Ultrasound 11/05/2024 1:18 PM CDT Narrative 11/06/2024 2:[address] [facility] [place] [address] Transthoracic Echocardiographic Report Patient Name: SUSANNAH CAMARGO A : 1950 (73y 10m) Gender: F Study Date: 11/05/2024 13:18:30 Ht(Inch): 61 Wt(Lb): 162.04 BSA: 1.78 Booth Manager: SHANNA Location: [facility] Order Provider: KALLI COX Heart [...] Note Jose J Hernandez MD - 11/06/2024 [facility] [place] [address] Transthoracic Echocardiographic Report Patient Name: SUSANNAH CAMARGO A : 1950 (73y 10m) Gender: F Study Date: 11/05/2024 13:18:30 Ht(Inch): 61 Wt(Lb): 162.04 BSA: 1.78 Booth Manager: SHANNA Location: [facility] Order Provider: KALLI COX Heart [...] LA Length 4C 6.24 [address]60 msec [ 104.00 - 258.00 ] LA [...] Jose J Hernandez MD 11/06/2024 14:05:24 CDT us Kalli Cox MD CV ECHO PROCEDURES Final Result [...] was last reviewed 2021. Testing performed by: [facility], [address] [place] [address] Blood 10/28/2024 9:38 AM CDT 10/28/2024 10:02 AM CDT us Kalli Cox MD LAB BLOOD ORDERABLES Gail garcia Result [facility] [place] [address] [facility]. [place] [address] * Differential, auto (10/28/2024 9:38 AM CDT) Neutrophil abs 1.73 1.50 - 6.50 K/cumm Comment:Testing performed by : [facility] 2, [address] [place] [address] Imm gran abs 0.02 0.00 - 0.10 K/cumm CERNER BJWCH Comment:Testing performed by : [facility] 2, [address] [place] [address] Lymphocyte abs 0.98 0.80 - 3.30 K/cumm CERNER BJWCH Comment:Testing performed by : [facility] 2, [address] [place] [address] Monocyte abs 0.56 0.20 - 0.80 K/cumm CERNER BJWCH Comment:Testing performed by : [facility] 2, [address] [place] [address] Eosinophil abs 0.04 0.00 - 0.50 K/cumm CERNER BJWCH Comment:Testing performed by : [facility] 2, [address] [place] [address] Basophil abs 0.01 0.00 - 0.10 K/cumm CERNER BJWCH Comment:Testing performed by : [facility] 2, [address] [place] [address] Neutrophil pct 51.8 % CERNER BJWCH Comment: Interpretive Data Percent cell count reference ranges are not reported, since discordance with absolute values may lead to misinterpretation of CBC data. Current Interpretive Data was last revised on 2017. Testing performed by: [facility] 2, [address] [place] [address] Imm gran pct 0.6 % CERNER BJWCH Comment: Interpretive Data Percent cell count reference ranges are not reported, since discordance with absolute values may lead to misinterpretation of CBC data. Current Interpretive Data was last revised on 2017. Testing performed by: [facility], [facility], [address] [place] [address] Lymphocyte pct 29.3 % ENRIQUE TORRES Comment: Interpretive Data Percent cell count reference ranges are not reported, since discordance with absolute values may lead to misinterpretation of CBC data. Current Interpretive Data was last revised on 2017. Testing performed by: [facility], [facility], [address] [place] [address] Monocyte pct 16.8 % ENRIQUE TORRES Comment: Interpretive Data Percent cell count reference ranges are not reported, since discordance with absolute values may lead to misinterpretation of CBC data. Current Interpretive Data was last revised on 2017. Testing performed by: [facility], [facility], [address] [place] [address] Eosinophil pct 1.2 % ENRIQUE TORRES Comment: Interpretive Data Percent cell count reference ranges are not reported, since discordance with absolute values may lead to misinterpretation of CBC data. Current Interpretive Data was last revised on 2017. Testing performed by: [facility], [facility], [address] [place] [address] Basophil pct 0.3 % ENRIQUE TORRES Comment: Interpretive Data Percent cell count reference ranges are not reported, since discordance with absolute values may lead to misinterpretation of CBC data. Current Interpretive Data was last revised on 2017. Testing performed by: [facility], [facility], [address] [place] [address] Blood 10/28/2024 9:38 AM CDT 10/28/2024 9:40 AM CDT us Moh'D M Mili Cox MD LAB BLOOD ORDERABLES Gail radha Result [facility] [address] [place] [address] * (ABNORMAL) CBC with auto differential (10/28/2024 9:38 AM CDT) [facility] Signature WBC 3.34(L) 3.80 - 9.90 K/cumm Comment:Testing performed by : [place] [address], [place] [address] Hgb 8.2(L) 11.9 - 15.5 g/dL CERNER BJWCH Comment:Testing performed by : [place] [address] [place] [address] Hct 26.3(L) 35.6 - 45.5 % CERNER BJWCH Comment:Testing performed by : [place] [address] [place] [address] Plt 218 150 - 400 K/cumm CERNER BJWCH Comment:Testing performed by : [place] [address], [place] [address] MPV 8.8(L) 9.1 - 12.3 fL CERNER BJWCH Comment:Testing performed by : [address], [place] [address] RBC 2.89(L) 3.90 - 5.20 M/cumm CERNER BJWCH Comment:Testing performed by : [place] [address], [address] [place] [address] MCV 91.0 81.3 - 96.4 fL CERNER BJWCH Comment:Testing performed by : [place] [address], [address] [place] [address] MCH 28.4 27.1 - 33.3 pg CERNER BJWCH Comment:Testing performed by : [place] [address], [address] [place] [address] MCHC 31.2(L) 32.3 - 35.7 g/dL CERNER BJWCH Comment:Testing performed by : [facility], [facility] 2, [address] [place] [address] RDW CV 14.1 11.1 - 14.9 % ENRIQUE TORRES Comment:Testing performed by : [facility], [facility] 2, [address] [place] [address] RDW SD 47.1 35.7 - 48.1 fL ENRIQUE TORRES Comment:Testing performed by : [facility], [facility] 2, [address] [place] [address] ANC Prelim 1.73 1.50 - 6.50 K/cumm ENRIQUE TORRES Comment: Interpretive Data The rapid ANC is a preliminary automated count and may vary from the final ANC (Neut Abs) reported in the WBC differential that follows. Current interpretive data was last revised 2024. Testing performed by: [facility], [facility], [address] [place] [address] Blood 10/28/2024 9:38 AM CDT 10/28/2024 9:40 AM CDT us Ibeth'Maurisio Cox MD LAB BLOOD ORDERABLES Gail garcia Result [facility] [address] [address]. [place] [address] * (ABNORMAL) Comprehensive metabolic panel (10/28/2024 9:38 AM CDT) Sodium 137 135 - 145 mmol/L Comment:Testing performed by : [facility], [address] [place] [address] Potassium, pl 3.6 3.3 - 4.9 mmol/L ENRIQUE TORRES Comment:Testing performed by : [facility], [address] [place] [address] Chloride 104 97 - 110 mmol/L ENRIQUE TORRES Comment:Testing performed by : [facility], [address] [place] [address] CO2 28 22 - 32 mmol/L CERNER BJWCH Comment:Testing performed by : [facility], [address], [place] [address] Anion gap 5 2 - 15 mmol/L CERNER BJWCH Comment:Testing performed by : [facility], [address], [place] [address] BUN 9 6 - 25 mg/dL CERNER BJWCH Comment:Testing performed by : [facility], [address], [place] [address] Creatinine 0.72 0.60 - 1.10 mg/dL CERNER BJWCH Comment:Testing performed by : [facility], [address], [place] [address] Glucose 87 70 - 199 mg/dL CERNER [...] was last revised 2022. Testing performed by: [facility], [address], [place] [address] Calcium 8.9 8.5 - 10.3 mg/dL CERNER BJWCH Comment:Testing performed by : [facility], [address], [place] [address] Bilirubin, total 0.4 0.1 - 1.2 mg/dL CERNER BJWCH Comment:Testing performed by : [facility], [address], [place] [address] Protein, pl 5.4(L) 6.5 - 8.5 g/dL CERNER BJWCH Comment:Testing performed by : [facility], [address], [place] [address] Albumin 3.1(L) 3.5 - 5.0 g/dL CERNER BJW Comment:Testing performed by : [facility], [address], [place] [address] Alk phos 189(H) 40 - 130 Units/L CERNER BJWCH Comment:Testing performed by : [facility], [address], [place] [address] ALT 12 7 - 45 Units/L CERNER BJWCH Comment:Testing performed by : [facility], [address], [place] [address] AST 20 10 - 45 Units/L [facility] Comment:Testing performed by : [facility], [address], [place] [address] Blood 10/28/2024 9:38 AM CDT 10/28/2024 10:02 AM CDT Kalli Cox MD LAB BLOOD ORDERABLES Gail l Result [facility] [place] [address] [place] [address] * POCT glucose (10/25/2024 11:40 AM CDT) [facility] Signature Glucose, POC 80 70 - 199 mg/dL Blood 10/25/2024 11:4 0 AM CDT 10/25/2024 11:40 AM CDT Tana Coronado MD LAB POCT ORDERABLES - DEVICE Final Result [facility] [place] [address] * US Transvaginal (10/25/2024 10:30 AM CDT) [...] LAB POCT ORDERABLES - DEVICE Final Result [facility] [place] [address] * eGFR (10/25/2024 1:45 AM CDT) eGFR [...] CDT 10/25/2024 3:54 AM CDT Jessi Sima Daisy Briggs MD LAB BLOOD ORDER SHANT Final Result [facility] Department [place] [address] * (ABNORMAL) Differential, auto (10/25/2024 1:45 AM CDT) Pathologist [facility] Neutrophil abs 1.51 1.50 - 6.50 K/cumm Imm gran abs 0.01 0.00 - 0.10 K/cumm [facility] Lymphocyte abs 0.70(L) 0.80 - 3.30 K/cumm [facility] Monocyte abs 0.52 0.20 - 0.80 K/cumm [facility] Eosinophil abs 0.04 0.00 - 0.50 K/cumm [facility] Basophil abs 0.01 0.00 - 0.10 K/cumm [facility] Neutrophil pct 54.1 % [facility] Comment: Interpretive Data Percent cell count reference ranges are not reported, since discordance with absolute values may lead to misinterpretation of CBC data. Current Interpretive Data was last revised on 2017. Imm gran pct 0.4 % [facility] Comment: Interpretive Data Percent cell count reference ranges are not reported, since discordance with absolute values may lead to misinterpretation of CBC data. Current Interpretive Data was last revised on 2017. Lymphocyte pct 25.1 % [facility] Comment: Interpretive Data Percent cell count reference ranges are not reported, since discordance with absolute values may lead to misinterpretation of CBC data. Current Interpretive Data was last revised on 2017. Monocyte pct 18.6 % [facility] Comment: Interpretive Data Percent cell count reference ranges are not reported, since discordance with absolute values may lead to misinterpretation of CBC data. Current Interpretive Data was last revised on 2017. Eosinophil pct 1.4 % [facility] Comment: Interpretive Data Percent cell count reference ranges are not reported, since discordance with absolute values may lead to misinterpretation of CBC data. Current Interpretive Data was last revised on 2017. Basophil pct 0.4 % [facility] Comment: Interpretive Data Percent cell count reference ranges are not reported, since discordance with absolute values may lead to misinterpretation of CBC data. Current Interpretive Data was last revised on 2017. Blood 10/25/2024 1:45 AM CDT 10/25/2024 3:54 AM CDT us Jessi Briggs MD LAB BLOOD ORDER SHANT Final Result [facility] Department [place] [address] * (ABNORMAL) CBC with auto differential (10/25/2024 1:45 AM CDT) WBC 2.79(L) 3.80 - 9.90 K/cumm Hgb 7.5(L) 11.9 - 15.5 g/dL [facility] Hct 23.0(L) 35.6 - 45.5 % [facility] Plt 115(L) 150 - 400 K/cumm [facility] MPV 9.6 9.1 - 12.3 fL [facility] RBC 2.56(L) 3.90 - 5.20 M/cumm [facility] MCV 89.8 81.3 - 96.4 fL [facility] MCH 29.3 27.1 - 33.3 pg [facility] MCHC 32.6 32.3 - 35.7 g/dL [facility] RDW CV 14.5 11.1 - 14.9 % [facility] RDW SD 47.8 35.7 - 48.1 fL [facility] NRBC abs 0.00 0.00 - 0.01 K/cumm [facility] Blood 10/25/2024 1:45 AM CDT 10/25/2024 3:54 AM CDT Jessi Briggs MD LAB BLOOD ORDER SHANT Final Result Performing Organization Address City/[facility]/ZIP Co de Phone Number [facility] [place] [address] * Phosphorus (10/25/2024 1:45 AM CDT) Pathologist [facility] Phosphorus, pl 2.5 2.3 - 4.5 mg/dL Blood 10/25/2024 1:45 AM CDT 10/25/2024 3:54 AM CDT Jessi Briggs MD LAB BLOOD ORDER SHANT Final Result Performing Organization Address [facility] Co de Phone Number [facility] Department [place] [address] * (ABNORMAL) Comprehensive metabolic panel (10/25/2024 1:45 AM CDT) [facility] Sodium 142 135 - 145 mmol/L Potassium, pl 3.3 3.3 - 4.9 mmol/L [facility] Chloride 106 97 - 110 mmol/L [facility] CO2 29 22 - 32 mmol/L [facility] Anion gap 7 2 - 15 mmol/L [facility] BUN 5(L) 6 - 25 mg/dL [facility] Creatinine 0.69 0.60 - 1.10 mg/dL [facility] Glucose 90 70 - 199 mg/dL [facility] Comment: Interpretive Data Fasting glucose >/= 126 [...] 8.3(L) 8.5 - 10.3 mg/dL [facility] Bilirubin, total 0.3 0.1 - 1.2 mg/dL [facility] Protein, pl 4.9(L) 6.5 - 8.5 g/dL [facility] Albumin 2.7(L) 3.5 - 5.0 g/dL [facility] Alk phos 148(H) 40 - 130 Units/L [facility] ALT 11 7 - 45 Units/L [facility] AST 16 10 - 45 Units/L [facility] Blood 10/25/2024 1:45 AM CDT 10/25/2024 3:54 AM CDT Jessi Briggs MD LAB BLOOD ORDER SHANT Final Result Performing Organization Address City/[facility]/ZIP Co de Phone Number [facility] [place] [place] [address] * POCT glucose (10/25/2024 1:43 AM CDT) Glucose, POC 104 70 - 199 mg/dL Blood 10/25/2024 1:43 AM CDT 10/25/2024 1:43 AM CDT Tana Coronado MD LAB POCT ORDERABLES - DEVICE Final Result Performing Organization Address [facility] Co de Phone Number [facility] [place] [place] [address] * POCT glucose (10/24/2024 8:55 PM CDT) Glucose, POC 105 70 - 199 mg/dL Blood 10/24/2024 8:55 PM CDT 10/24/2024 8:55 PM CDT Tana Coronado MD LAB POCT ORDERABLES - DEVICE Final Result Performing Organization Address [facility] Co de Phone Number [facility] [place] [employer] [place] [address] * POCT glucose (10/24/2024 6:11 PM CDT) Glucose, POC 80 70 - 199 mg/dL Blood 10/24/2024 6:11 PM CDT 10/24/2024 6:11 PM CDT Tana Coronado MD LAB POCT ORDERABLES - DEVICE Final Result [facility] [place] [address] * Diagnostic Mammogram Bilateral W Ayad (10/24/2024 [...] axilla was performed by a trained java swing developer and Dr. Andrade. Subsequently, full field digital [...] axilla was performed by a trained java swing developer and Dr. Andrade. Subsequently, full field digital [...] 1:03 PM CDT 10/24/2024 1:03 PM CDT Tana Coronado MD LAB POCT ORDERABLES - DEVICE Final Result Performing Organization Address City/[facility] Co de Phone Number [facility] [place] [place] [address] * POCT glucose (10/24/2024 8:49 AM CDT) Glucose, POC 98 70 - 199 mg/dL Blood 10/24/2024 8:49 AM CDT 10/24/2024 8:49 AM CDT Tana Coronado MD LAB POCT ORDERABLES - DEVICE Final Result Performing Organization Address [facility] Co de Phone Number [facility] [place] [place] [address] * POCT glucose (10/24/2024 2:00 AM CDT) Glucose, POC 88 70 - 199 mg/dL Blood 10/24/2024 2:00 AM CDT 10/24/2024 2:00 AM CDT Tana Coronado MD LAB POCT ORDERABLES - DEVICE Final Result Performing Organization Address City/[facility]/ZIP Co de Phone Number [facility] [place] [place] [address] * eGFR (10/24/2024 1:50 AM CDT) [facility] eGFR >90 >=60 mL/min/1. 73 m2 [...] BLOOD ORDER SHANT Final Result [facility] [place] [address] * Differential, auto (10/24/2024 1:50 AM CDT) [facility] Neutrophil abs 2.44 1.50 - 6.50 K/cumm Imm gran abs 0.02 0.00 - 0.10 K/cumm [facility] Lymphocyte abs 1.24 0.80 - 3.30 K/cumm [facility] Monocyte abs 0.74 0.20 - 0.80 K/cumm [facility] Eosinophil abs 0.08 0.00 - 0.50 K/cumm [facility] Basophil abs 0.01 0.00 - 0.10 K/cumm [facility] Neutrophil pct 53.9 % [facility] Comment: Interpretive Data Percent cell count reference ranges are not reported, since discordance with absolute values may lead to misinterpretation of CBC data. Current Interpretive Data was last revised on 2017. Imm gran pct 0.4 % [facility] Comment: Interpretive Data Percent cell count reference ranges are not reported, since discordance with absolute values may lead to misinterpretation of CBC data. Current Interpretive Data was last revised on 2017. Lymphocyte pct 27.4 % [facility] Comment: Interpretive Data Percent cell count reference ranges are not reported, since discordance with absolute values may lead to misinterpretation of CBC data. Current Interpretive Data was last revised on 2017. Monocyte pct 16.3 % [facility] Comment: Interpretive Data Percent cell count reference ranges are not reported, since discordance with absolute values may lead to misinterpretation of CBC data. Current Interpretive Data was last revised on 2017. Eosinophil pct 1.8 % [facility] Comment: Interpretive Data Percent cell count reference ranges are not reported, since discordance with absolute values may lead to misinterpretation of CBC data. Current Interpretive Data was last revised on 2017. Basophil pct 0.2 % [facility] Comment: Interpretive Data Percent cell count reference ranges are not reported, since discordance with absolute values may lead to misinterpretation of CBC data. Current Interpretive Data was last revised on 2017. Blood 10/24/2024 1:50 AM CDT 10/24/2024 2:13 AM CDT us Jessi Briggs MD LAB BLOOD ORDER SHANT Final Result [facility] [place] [address] * Calcium, ionized (10/24/2024 1:50 AM CDT) Calcium, Ionized 4.85 4.50 - 5.10 mg/dL Blood 10/24/2024 1:50 AM CDT 10/24/2024 2:10 AM CDT us Tana Coronado MD LAB BLOOD ORDERABLES Final Result [facility] [place] [place] [address] * (ABNORMAL) CBC with auto differential (10/24/2024 1:50 AM CDT) WBC 4.53 3.80 - 9.90 K/cumm Hgb 8.8(L) 11.9 - 15.5 g/dL [facility] Hct 26.9(L) 35.6 - 45.5 % [facility] Plt 160 150 - 400 K/cumm [facility] MPV 9.8 9.1 - 12.3 fL [facility] RBC 2.97(L) 3.90 - 5.20 M/cumm [facility] MCV 90.6 81.3 - 96.4 fL [facility] MCH 29.6 27.1 - 33.3 pg [facility] MCHC 32.7 32.3 - 35.7 g/dL [facility] RDW CV 14.5 11.1 - 14.9 % [facility] RDW SD 48.5(H) 35.7 - 48.1 fL [facility] NRBC abs 0.00 0.00 - 0.01 K/cumm [facility] Blood 10/24/2024 1:50 AM CDT 10/24/2024 2:13 AM CDT us Jessi Briggs MD LAB BLOOD ORDER SHANT Final Result [facility] [place] [address] * Type and screen (10/24/2024 1:50 AM CDT) ABO Rh O Negative Brigitte, indirect Negative [facility] Blood 10/24/2024 1:50 AM CDT 10/24/2024 2:25 AM CDT Narrative [facility] - 10/24/2024 3:52 AM CDT Has the patient had Daratumumab or Isatuximab in the past 6 months?->Unknown Jessi Briggs MD LAB BLOOD BANK TEST ORDERABLES Final Result [facility] [place] [place] [address] * Uric acid (10/24/2024 1:50 AM CDT) Pathologist [facility] Uric acid 3.8 2.5 - 7.0 mg/dL Blood 10/24/2024 1:50 AM CDT 10/24/2024 2:13 AM CDT Narrative [facility] - 10/24/2024 2:40 AM CDT Monday and only. Morning draw. . Jessi Briggs MD LAB BLOOD ORDER SHANT Final Result [facility] [place] [place] [address] * Phosphorus (10/24/2024 1:50 AM CDT) Pathologist [facility] Phosphorus, pl 2.4 2.3 - 4.5 mg/dL Blood 10/24/2024 1:50 AM CDT 10/24/2024 2:13 AM CDT Jessi Briggs MD LAB BLOOD ORDER SHANT Final Result [facility] [place] [place] [address] * Lactate dehydrogenase (LD) (10/24/2024 1:50 AM CDT) [facility] Lactate dehydrogenase (LDH) 213 100 - 250 Units/L Blood 10/24/2024 1:50 AM CDT 10/24/2024 2:13 AM CDT Narrative [facility] - 10/24/2024 2:40 AM CDT Monday and only. Morning draw. Jessi Briggs MD LAB BLOOD ORDER SHANT Final Result [facility] Department [place] [address] * (ABNORMAL) Comprehensive metabolic panel (10/24/2024 1:50 AM CDT) [facility] Sodium 138 135 - 145 mmol/L Potassium, pl 3.6 3.3 - 4.9 mmol/L [facility] Chloride 107 97 - 110 mmol/L [facility] CO2 28 22 - 32 mmol/L [facility] Anion gap 3 2 - 15 mmol/L [facility] BUN 8 6 - 25 mg/dL [facility] Creatinine 0.63 0.60 - 1.10 mg/dL [facility] Glucose 88 70 - 199 mg/dL [facility] Comment: Interpretive Data Fasting glucose >/= 126 [...] 8.9 8.5 - 10.3 mg/dL [facility] Bilirubin, total 0.3 0.1 - 1.2 mg/dL [facility] Protein, pl 5.8(L) 6.5 - 8.5 g/dL [facility] Albumin 3.1(L) 3.5 - 5.0 g/dL [facility] Alk phos 185(H) 40 - 130 Units/L [facility] ALT 13 7 - 45 Units/L [facility] AST 20 10 - 45 Units/L [facility] Blood 10/24/2024 1:50 AM CDT 10/24/2024 2:13 AM CDT Jessi Briggs MD LAB BLOOD ORDER SHANT Final Result Performing Organization Address [facility] Co de Phone Number [facility] [place] [place] [address] * (ABNORMAL) Vancomycin level trough (10/23/2024 11:26 PM CDT) Vancomycin trough 5.7(L) 10.0 - 20.0 mcg/mL Blood 10/23/2024 11:2 6 PM CDT 10/23/2024 11:36 PM CDT Cayla Solorzano MD LAB BLOOD ORDERABLES Final Resul t Performing Organization Address [facility] Co de Phone Number [facility] [place] [place] [address] * POCT glucose (10/23/2024 8:27 PM CDT) Glucose, POC 98 70 - 199 mg/dL Blood 10/23/2024 8:27 PM CDT 10/23/2024 8:27 PM CDT Tana Coronado MD LAB POCT ORDERABLES - DEVICE Final Result Performing Organization Address [facility] Co de Phone Number [facility] [place] [place] [address] * POCT glucose (10/23/2024 5:50 PM CDT) Glucose, POC 104 70 - 199 mg/dL Blood 10/23/2024 5:50 PM CDT 10/23/2024 5:50 PM CDT us Tana Coronado MD LAB POCT ORDERABLES - DEVICE Final Result [facility]QUE [facility] [place] [address] * FL Modified Barium Swallow W Video [...] IMG FLUOROSCOPY PROC EDURES Final Result * [employer] Evaluate and Treat (VFSS) (10/23/2024 2:38 PM [...] h/o gastric sleeve, who presents to the [facility] 10/21/24 due to Fever at home. She [...] thin liquid General Information Susannah Camargo 10/23/24 [employer] Received On: 10/23/24 General Observations: alert, cooperative Reason for Referral:suspect pharyngeal dysphagia Pain Score: 0 - No pain If pain >4, was RN notified? N/A Patient Stated Goal/Comments: agrees to [facility] Clinical Impression & Professional Recommendations Diet Solids [...] SHERI indicate need for nonoral nutrition. Plan [employer] Recommendation (Add'l Services): No further [employer]PER[employer]ENT [employer]IT[employer] indicated (do not anticipate [employer]IT[employer] needs at discharge) Next Visit Plan: treatment/therapy Discharge Summary Statement If this is the last swallow therapy visit, this serves as the discharge summary. Tana Coronado MD [employer] ORDERABLES Gail l Result * POCT glucose (10/23/2024 11:58 AM CDT) Glucose, POC 78 70 - 199 mg/dL Blood 10/23/2024 11:5 8 AM CDT 10/23/2024 11:58 AM CDT Tana Coronado MD LAB POCT ORDERABLES - DEVICE Final Result Performing Organization Address [facility] Co de Phone Number [facility] [place] [employer] [place] [address] * POCT glucose (10/23/2024 7:26 AM CDT) Glucose, POC 84 70 - 199 mg/dL Blood 10/23/2024 7:26 AM CDT 10/23/2024 7:26 AM CDT Tana Coronado MD LAB POCT ORDERABLES - DEVICE Final Result Performing Organization Address [facility] de Phone Number [facility] [place] [place] [address] * eGFR (10/23/2024 12:28 AM CDT) eGFR [...] BLOOD ORDER SHANT Final Result [facility] [place] [address] * (ABNORMAL) Differential, auto (10/23/2024 12:28 AM CDT) Pathologist [facility] Neutrophil abs 2.24 1.50 - 6.50 K/cumm Imm gran abs 0.01 0.00 - 0.10 K/cumm [facility] Lymphocyte abs 0.74(L) 0.80 - 3.30 K/cumm [facility] Monocyte abs 0.54 0.20 - 0.80 K/cumm [facility] Eosinophil abs 0.03 0.00 - 0.50 K/cumm [facility] Basophil abs 0.01 0.00 - 0.10 K/cumm [facility] Neutrophil pct 62.8 % [facility] Comment: Interpretive Data Percent cell count reference ranges are not reported, since discordance with absolute values may lead to misinterpretation of CBC data. Current Interpretive Data was last revised on 2017. Imm gran pct 0.3 % [facility] Comment: Interpretive Data Percent cell count reference ranges are not reported, since discordance with absolute values may lead to misinterpretation of CBC data. Current Interpretive Data was last revised on 2017. Lymphocyte pct 20.7 % [facility] Comment: Interpretive Data Percent cell count reference ranges are not reported, since discordance with absolute values may lead to misinterpretation of CBC data. Current Interpretive Data was last revised on 2017. Monocyte pct 15.1 % [facility] Comment: Interpretive Data Percent cell count reference ranges are not reported, since discordance with absolute values may lead to misinterpretation of CBC data. Current Interpretive Data was last revised on 2017. Eosinophil pct 0.8 % [facility] Comment: Interpretive Data Percent cell count reference ranges are not reported, since discordance with absolute values may lead to misinterpretation of CBC data. Current Interpretive Data was last revised on 2017. Basophil pct 0.3 % [facility] Comment: Interpretive Data Percent cell count reference ranges are not reported, since discordance with absolute values may lead to misinterpretation of CBC data. Current Interpretive Data was last revised on 2017. Blood 10/23/2024 12:2 8 AM CDT 10/23/2024 12:47 AM CDT Jessi Briggs MD LAB BLOOD ORDER SHANT Final Result [facility] Department [place] [address] * (ABNORMAL) CBC with auto differential (10/23/2024 12:28 AM CDT) WBC 3.57(L) 3.80 - 9.90 K/cumm Hgb 8.0(L) 11.9 - 15.5 g/dL [facility] Hct 24.1(L) 35.6 - 45.5 % [facility] Plt 124(L) 150 - 400 K/cumm [facility] MPV 10.5 9.1 - 12.3 fL [facility] RBC 2.72(L) 3.90 - 5.20 M/cumm [facility] MCV 88.6 81.3 - 96.4 fL [facility] MCH 29.4 27.1 - 33.3 pg [facility] MCHC 33.2 32.3 - 35.7 g/dL [facility] RDW CV 14.7 11.1 - 14.9 % [facility] RDW SD 47.7 35.7 - 48.1 fL [facility] NRBC abs 0.00 0.00 - 0.01 K/cumm [facility] Blood 10/23/2024 12:2 8 AM CDT 10/23/2024 12:47 AM CDT Jessi Briggs MD LAB BLOOD ORDER SHANT Final Result [facility] [place] [place] [address] * (ABNORMAL) Phosphorus (10/23/2024 12:28 AM CDT) [facility] Phosphorus, pl 2.1(L) 2.3 - 4.5 mg/dL Blood 10/23/2024 12:2 8 AM CDT 10/23/2024 12:46 AM CDT Jessi Briggs MD LAB BLOOD ORDER SHANT Final Result Performing Organization Address City/[facility]/ZIP Co de Phone Number [facility] [place] [place] [address] * (ABNORMAL) Comprehensive metabolic panel (10/23/2024 12:28 AM CDT) Pathologist [facility] Sodium 137 135 - 145 mmol/L Potassium, pl 3.5 3.3 - 4.9 mmol/L [facility] Chloride 105 97 - 110 mmol/L [facility] CO2 27 22 - 32 mmol/L [facility] Anion gap 5 2 - 15 mmol/L [facility] BUN 8 6 - 25 mg/dL [facility] Creatinine 0.58(L) 0.60 - 1.10 mg/dL [facility] Glucose 122 70 - 199 mg/dL [facility] Comment: Interpretive Data Fasting glucose >/= 126 [...] 2022. Calcium 8.2(L) 8.5 - 10.3 mg/dL [facility] Bilirubin, total 0.4 0.1 - 1.2 mg/dL [facility] Protein, pl 5.3(L) 6.5 - 8.5 g/dL [facility] Albumin 2.8(L) 3.5 - 5.0 g/dL [facility] Alk phos 175(H) 40 - 130 Units/L [facility] ALT 14 7 - 45 Units/L [facility] AST 17 10 - 45 Units/L [facility] Blood 10/23/2024 12:2 8 AM CDT 10/23/2024 12:46 AM CDT us Jessi Briggs MD LAB BLOOD ORDER SHANT Final Result [facility] [place] [place] [address] * POCT glucose (10/22/2024 8:01 PM CDT) [facility] Glucose, POC 112 70 - 199 mg/dL Blood 10/22/2024 8:01 PM CDT 10/22/2024 8:01 PM CDT us Tana Coronado MD LAB POCT ORDERABLES - DEVICE Final Result Performing Organization Address City/[facility]/ZIP Co de Phone Number [facility] [place] [address] * POCT glucose (10/22/2024 5:14 PM CDT) Glucose, POC 99 70 - 199 mg/dL Blood 10/22/2024 5:14 PM CDT 10/22/2024 5:14 PM CDT Tana Coronado MD LAB POCT ORDERABLES - DEVICE Final Result [facility] Department of Laboratories [place] [id number] * US Vein Duplex Upper Extremity Left Limited, Unilateral (10/22/2024 4:42 PM CDT) Anatomical Region Laterality Modality Vascular Left Ultrasound 10/22/2024 4:10 PM CDT Narrative 10/22/2024 9:32 PM CDT [facility] - Department of Vascular Surgery, Vascular Laboratory [address] [place] [address] Upper Extremity Venous Ultrasound Report Patient Name: SUSANNAH CAMARGO : 1950 (73y 9m) Study Date: 10/22/2024 4:10:04 PM Gender: F Tech: AR Location: [id number] Ref Provider: TANA CORONADO Quality: Adequate Order Provider: TANA CORONADO PROCEDURES: Vascular Report: Venous Duplex imaging was performed in the left upper extremity. The internal jugular, subclavian and axillary veins were evaluated for patency, spontaneity and phasicity with Doppler, compression and augmentation maneuvers. The brachial, basilic and cephalic veins were also evaluated with compression maneuvers. INDICATIONS: LUE swelling, erythema. FINDINGS: Performing Booth Manager: Halley Castillo RVT. Left: Venous Doppler signals [...] Procedure Note Dano Gleason MD - 10/22/2024 [facility] - Department of Vascular Surgery,Vascular Laboratory [address] [place] [address] Upper Extremity Venous Ultrasound Report Patient Name: SUSANNAH CAMARGO : 1950 (73y 9m) Study Date: 10/22/2024 4:10:04 PM Gender: F Tech: AR Location: [id number] Ref Provider: TANA CORONADO Quality: Adequate Order Provider: TANA CORONADO PROCEDURES: Vascular Report: Venous Duplex imaging was performed in the left upper extremity. Theinternal jugular, subclavian and axillary veins were evaluated for patency, spontaneity andphasicity with Doppler, compression and augmentation maneuvers. The brachial, basilic andcephalic veins were also evaluated with compression maneuvers. INDICATIONS: LUE swelling, erythema. FINDINGS: Performing Booth Manager: Halley Castillo RVT. Left: Venous Doppler signals [...] Signed By: Dano Gleason MD, FACS 10/22/2024 9:31:18 PM CDT Tana Coronado MD IMG US PROCEDURES Fi nal Result * POCT glucose (10/22/2024 12:21 PM CDT) Glucose, POC 94 70 - 199 mg/dL Blood 10/22/2024 12:2 1 PM CDT 10/22/2024 12:21 PM CDT Tana Coronado MD LAB POCT ORDERABLES - DEVICE Final Result [facility] [place] [address] * POCT glucose (10/22/2024 7:14 AM CDT) Glucose, POC 73 70 - 199 mg/dL Blood 10/22/2024 7:14 AM CDT 10/22/2024 7:14 AM CDT Tana Coronado MD LAB POCT ORDERABLES - DEVICE Final Result Performing Organization Address City/[facility] Co de Phone Number [facility] [place] [address] * Stool culture Stool Rectum (10/22/2024 6:46 AM CDT) Direct Specimen Exam Shiga Toxin Testing: Antigen detection assay for Shiga-toxin NEGATIVE for Shiga Toxin 1 and Shiga Toxin 2. Report Final Report: No growth of enteric bacterial pathogens [facility] Stool (Rectum) 10/22/2024 6: 46 AM CDT 10/22/2024 7:57 AM CDT Narrative [facility] - 10/26/2024 9:59 AM CDT Testing performed by [facility] ([phone]). Routine stool cultures include procedures to detect Salmonella, Shigella, Edwardsiella, Aeromonas, Pleisiomonas, Campylobacter, Yersinia, E. coli O157, and Shiga-like toxins. Vibrio is cultured only upon special request. If Vibrio is suspected, please call the laboratory at [phone]. Interpretive data was last updated August 22, 2016. Jessi Briggs MD LAB MICROBIOLOG Y - GENERAL ORDERABLES Final Result Performing Organization Address City/[facility]/ZIP Co de Phone Number ENRIQUE [facility] [place] [address] * eGFR (10/22/2024 2:51 AM CDT) eGFR [...] ORDER SHANT Final Result Performing Organization Address City/[facility]/ZIP Co de Phone Number [facility] [place] [address] * aPTT (10/22/2024 2:51 AM CDT) aPTT [...] ORDER SHANT Final Result Performing Organization Address City/[facility] Co de Phone Number [facility] One [facility] [place] [address] * (ABNORMAL) Protime-INR (10/22/2024 2:51 AM CDT) PT 14.9(H) 9.7 - 13.0 sec INR 1.37(H) 0.90 - 1.[address] [facility] Comment: Interpretive data Oral anticoagulant [...] ORDER SHANT Final Result Performing Organization Address City/[facility] Co de Phone Number [facility] [place] [employer] [place] [address] * Uric acid (10/22/2024 2:51 AM CDT) Uric acid 3.6 2.5 - 7.0 mg/dL Blood 10/22/2024 2:51 AM CDT 10/22/2024 3:19 AM CDT Narrative [facility] - 10/22/2024 3:48 AM CDT Monday and only. Morning draw. . Jessi Briggs MD LAB BLOOD ORDER SHANT Final Result Performing Organization Address City/[facility] [place] [address] * Phosphorus (10/22/2024 2:51 AM CDT) [facility] Phosphorus, pl 2.3 2.3 - 4.5 mg/dL Blood 10/22/2024 2:51 AM CDT 10/22/2024 3:19 AM CDT Jessi Briggs MD LAB BLOOD ORDER SHANT Final Result Performing Organization Address [facility] de Phone Number [facility] [place] [address] * Lactate dehydrogenase (LD) (10/22/2024 2:51 AM CDT) [facility] Lactate dehydrogenase (LDH) 185 100 - 250 Units/L Blood 10/22/2024 2:51 AM CDT 10/22/2024 3:19 AM CDT Narrative [facility] - 10/22/2024 3:48 AM CDT Monday and only. Morning draw. Jessi Briggs MD LAB BLOOD ORDER SHANT Final Result Performing Organization Address [facility] [place] [address] * (ABNORMAL) Comprehensive metabolic panel (10/22/2024 2:51 AM CDT) [facility] Sodium 136 135 - 145 mmol/L Potassium, pl 3.7 3.3 - 4.9 mmol/L [facility] Chloride 102 97 - 110 mmol/L [facility] CO2 27 22 - 32 mmol/L [facility] Anion gap 7 2 - 15 mmol/L [facility] BUN 9 6 - 25 mg/dL [facility] Creatinine 0.64 0.60 - 1.10 mg/dL [facility] Glucose 107 70 - 199 mg/dL [facility] Comment: Interpretive Data Fasting glucose >/= 126 [...] 8.6 8.5 - 10.3 mg/dL [facility] Bilirubin, total 0.8 0.1 - 1.2 mg/dL [facility] Protein, pl 5.3(L) 6.5 - 8.5 g/dL [facility] Albumin 2.8(L) 3.5 - 5.0 g/dL [facility] Alk phos 186(H) 40 - 130 Units/L [facility] ALT 13 7 - 45 Units/L [facility] AST 16 10 - 45 Units/L [facility] Blood 10/22/2024 2:51 AM CDT 10/22/2024 3:19 AM CDT Jessi Briggs MD LAB BLOOD ORDER SHANT Final Result [facility] [place] [address] * Type and screen (10/22/2024 2:50 AM CDT) Brigitte, indirect Negative ABO Rh O Negative [facility] Blood 10/22/2024 2:50 AM CDT 10/22/2024 3:14 AM CDT Narrative [facility] - 10/22/2024 4:09 AM CDT Has the patient had Daratumumab or Isatuximab in the past 6 months?->Unknown Jessi Briggs MD LAB BLOOD BANK TEST ORDERABLES Final Result Performing Organization Address [facility] de Phone Number [facility] [place] [address] * POCT glucose (10/22/2024 2:48 AM CDT) Glucose, POC 77 70 - 199 mg/dL Blood 10/22/2024 2:48 AM CDT 10/22/2024 2:48 AM CDT Kalli Cox MD LAB POCT ORDERABLES - DEV ICE Final Result Performing Organization Address [facility] de Phone Number [facility] [place] [address] * (ABNORMAL) POCT glucose (10/22/2024 2:47 AM CDT) Glucose, POC 60(L) 70 - 199 mg/dL Blood 10/22/2024 2:47 AM CDT 10/22/2024 2:47 AM CDT Kalli Cox MD LAB POCT ORDERABLES - DEV ICE Final Result Performing Organization Address [facility] [place] [address] * (ABNORMAL) Differential, auto (10/22/2024 2:30 AM CDT) Pathologist [facility] Neutrophil abs 2.33 1.50 - 6.50 K/cumm Imm gran abs 0.02 0.00 - 0.10 K/cumm [facility] Lymphocyte abs 0.73(L) 0.80 - 3.30 K/cumm [facility] Monocyte abs 0.38 0.20 - 0.80 K/cumm [facility] Eosinophil abs 0.02 0.00 - 0.50 K/cumm [facility] Basophil abs 0.00 0.00 - 0.10 K/cumm [facility] Neutrophil pct 66.9 % [facility] Comment: Interpretive Data Percent cell count reference ranges are not reported, since discordance with absolute values may lead to misinterpretation of CBC data. Current Interpretive Data was last revised on 2017. Imm gran pct 0.6 % [facility] Comment: Interpretive Data Percent cell count reference ranges are not reported, since discordance with absolute values may lead to misinterpretation of CBC data. Current Interpretive Data was last revised on 2017. Lymphocyte pct 21.0 % [facility] Comment: Interpretive Data Percent cell count reference ranges are not reported, since discordance with absolute values may lead to misinterpretation of CBC data. Current Interpretive Data was last revised on 2017. Monocyte pct 10.9 % [facility] Comment: Interpretive Data Percent cell count reference ranges are not reported, since discordance with absolute values may lead to misinterpretation of CBC data. Current Interpretive Data was last revised on 2017. Eosinophil pct 0.6 % [facility] Comment: Interpretive Data Percent cell count reference ranges are not reported, since discordance with absolute values may lead to misinterpretation of CBC data. Current Interpretive Data was last revised on 2017. Basophil pct 0.0 % [facility] Comment: Interpretive Data Percent cell count reference ranges are not reported, since discordance with absolute values may lead to misinterpretation of CBC data. Current Interpretive Data was last revised on 2017. Blood 10/22/2024 2:30 AM CDT 10/22/2024 3:19 AM CDT Jessi Briggs MD LAB BLOOD ORDER SHANT Final Result [facility] Department [place] [address] * (ABNORMAL) CBC with auto differential (10/22/2024 2:30 AM CDT) [facility] WBC 3.48(L) 3.80 - 9.90 K/cumm Hgb 7.9(L) 11.9 - 15.5 g/dL [facility] Hct 24.5(L) 35.6 - 45.5 % [facility] Plt 111(L) 150 - 400 K/cumm [facility] MPV 10.7 9.1 - 12.3 fL [facility] RBC 2.73(L) 3.90 - 5.20 M/cumm [facility] MCV 89.7 81.3 - 96.4 fL [facility] MCH 28.9 27.1 - 33.3 pg [facility] MCHC 32.2(L) 32.3 - 35.7 g/dL [facility] RDW CV 15.0(H) 11.1 - 14.9 % [facility] RDW SD 49.4(H) 35.7 - 48.1 fL [facility] NRBC abs 0.00 0.00 - 0.01 K/cumm [facility] Blood 10/22/2024 2:30 AM CDT 10/22/2024 3:19 AM CDT Jessi Briggs MD LAB BLOOD ORDER SHANT Final Result [facility] Department [place] [address] * eGFR (10/21/2024 9:15 PM CDT) [facility] eGFR >90 >=60 mL/min/1. 73 m2 [...] BLOOD ORDER SHANT Final Result [facility] [place] [address] * (ABNORMAL) Differential, auto (10/21/2024 9:15 PM CDT) Pathologist [facility] Neutrophil abs 2.53 1.50 - 6.50 K/cumm Imm gran abs 0.03 0.00 - 0.10 K/cumm [facility] Lymphocyte abs 0.69(L) 0.80 - 3.30 K/cumm [facility] Monocyte abs 0.27 0.20 - 0.80 K/cumm [facility] Eosinophil abs 0.01 0.00 - 0.50 K/cumm [facility] Basophil abs 0.00 0.00 - 0.10 K/cumm [facility] Neutrophil pct 71.8 % [facility] Comment: Interpretive Data Percent cell count reference ranges are not reported, since discordance with absolute values may lead to misinterpretation of CBC data. Current Interpretive Data was last revised on 2017. Imm gran pct 0.8 % [facility] Comment: Interpretive Data Percent cell count reference ranges are not reported, since discordance with absolute values may lead to misinterpretation of CBC data. Current Interpretive Data was last revised on 2017. Lymphocyte pct 19.5 % [facility] Comment: Interpretive Data Percent cell count reference ranges are not reported, since discordance with absolute values may lead to misinterpretation of CBC data. Current Interpretive Data was last revised on 2017. Monocyte pct 7.6 % [facility] Comment: Interpretive Data Percent cell count reference ranges are not reported, since discordance with absolute values may lead to misinterpretation of CBC data. Current Interpretive Data was last revised on 2017. Eosinophil pct 0.3 % [facility] Comment: Interpretive Data Percent cell count reference ranges are not reported, since discordance with absolute values may lead to misinterpretation of CBC data. Current Interpretive Data was last revised on 2017. Basophil pct 0.0 % [facility] Comment: Interpretive Data Percent cell count reference ranges are not reported, since discordance with absolute values may lead to misinterpretation of CBC data. Current Interpretive Data was last revised on 2017. Blood 10/21/2024 9:15 PM CDT 10/21/2024 9:32 PM CDT [facility] Sima Briggs MD LAB BLOOD ORDER SHANT Final Result [facility] [place] [address] * (ABNORMAL) CBC with auto differential (10/21/2024 9:15 PM CDT) WBC 3.53(L) 3.80 - 9.90 K/cumm Hgb 8.2(L) 11.9 - 15.5 g/dL [facility] Hct 24.5(L) 35.6 - 45.5 % [facility] Plt 114(L) 150 - 400 K/cumm [facility] MPV 10.2 9.1 - 12.3 fL [facility] RBC 2.79(L) 3.90 - 5.20 M/cumm [facility] MCV 87.8 81.3 - 96.4 fL [facility] MCH 29.4 27.1 - 33.3 pg [facility] MCHC 33.5 32.3 - 35.7 g/dL [facility] RDW CV 14.8 11.1 - 14.9 % [facility] RDW SD 48.0 35.7 - 48.1 fL [facility] NRBC abs 0.00 0.00 - 0.01 K/cumm [facility] Blood 10/21/2024 9:15 PM CDT 10/21/2024 9:32 PM CDT Jessi Briggs MD LAB BLOOD ORDER SHANT Final Result Performing Organization Address [facility] de Phone Number [facility] Department [place] [address] * (ABNORMAL) Infection Prevention MRSA Only (Staphylococcus aureus) Culture Nasal (10/21/2024 9:15 PMCDT) Report Final Report: Methicillin-resist ant Staphylococcus aureus (.) Organism METHICILLIN-RESIST ANT STAPHYLOCOCCUS AUREUS [facility] Nasal 10/21/2024 9:15 PM CDT 10/21/2024 9:33 PM CDT Narrative [facility] - 10/24/2024 11:16 AM CDT Testing performed by [facility] ([phone]). Jessi Briggs MD LAB MICROBIOLOG Y - GENERAL ORDERABLES Final Result Performing Organization Address [facility] de Phone Number [facility] Department [place] [address] * (ABNORMAL) Phosphorus (10/21/2024 9:15 PM CDT) Phosphorus, pl 1.9(L) 2.3 - 4.5 mg/dL Blood 10/21/2024 9:15 PM CDT 10/21/2024 9:32 PM CDT Jessi Briggs MD LAB BLOOD ORDER SHANT Final Result Performing Organization Address City/[facility] Co de Phone Number [facility] Department [place] [address] * Magnesium (10/21/2024 9:15 PM CDT) [facility] Magnesium 1.6 1.4 - 2.5 mg/dL Blood 10/21/2024 9:15 PM CDT 10/21/2024 9:32 PM CDT Jessi Briggs MD LAB BLOOD ORDER SHANT Final Result [facility] Department [place] [address] * (ABNORMAL) Comprehensive metabolic panel (10/21/2024 9:15 PM CDT) [facility] Sodium 137 135 - 145 mmol/L Potassium, pl 3.5 3.3 - 4.9 mmol/L [facility] Chloride 103 97 - 110 mmol/L [facility] CO2 27 22 - 32 mmol/L [facility] Anion gap 7 2 - 15 mmol/L [facility] BUN 9 6 - 25 mg/dL [facility] Creatinine 0.66 0.60 - 1.10 mg/dL [facility] Glucose 98 70 - 199 mg/dL [facility] Comment: Interpretive Data Fasting glucose >/= 126 [...] 8.7 8.5 - 10.3 mg/dL [facility] Bilirubin, total 0.9 0.1 - 1.2 mg/dL [facility] Protein, pl 5.4(L) 6.5 - 8.5 g/dL [facility] Albumin 2.8(L) 3.5 - 5.0 g/dL [facility] Alk phos 191(H) 40 - 130 Units/L [facility] ALT 14 7 - 45 Units/L [facility] AST 17 10 - 45 Units/L [facility] Blood 10/21/2024 9:15 PM CDT 10/21/2024 9:32 PM CDT Jessi Briggs MD LAB BLOOD ORDER SHANT Final Result [facility] [place] [address] * POCT glucose (10/21/2024 8:35 PM CDT) Glucose, POC 104 70 - 199 mg/dL Blood 10/21/2024 8:35 PM CDT 10/21/2024 8:35 PM CDT us Kalli Cox MD LAB POCT ORDERABLES - DEV ICE Final Result Performing Organization Address City/[facility]/ZIP Co de Phone Number [facility] [place] [employer] [place] [address] * ECG 12 lead (10/21/2024 8:17 PM CDT) Ventricular Rate EKG/Min 85 BPM [facility] Atrial Rate 85 BPM [facility] VA-Interval (MSEC) 166 ms [facility] QRS-Interval (MSEC) 96 ms [facility] QT-Interval (MSEC) 352 ms [facility] QTc 418 ms [facility] P Edon 65 degrees [facility] R Edon 30 degrees [facility] T Edon 21 degrees [facility] Diagnosis Normal sinus rhythm Low voltage QRS Nonspecific T wave abnormality Abnormal ECG No previous ECGs available Confirmed by Dorinda Hong MD ([id number]) on 10/23/2024 6:21:31 AM [facility] 10/21/2024 8:17 PM CDT 10/23/2024 6:21 AM CDT Jessi Briggs MD ECG ORDERABLES Final Result [facility] * US Vein Duplex Lower Extremity Bilateral Complete (10/21/2024 4:02 PM CDT) Anatomical Region Laterality Modality Vascular Bilateral Ultrasound 10/21/2024 12:2 5 PM CDT Narrative 10/22/2024 11:07 AM CDT [facility] - Department of Vascular Surgery, Vascular Laboratory [address] [place] [address] Lower Extremity Venous Ultrasound Report Patient Name: [...] and pain; r/o DVT - FINDINGS: Performing Booth Manager: Taylor Lauren RVT. Bilateral: Venous Doppler signals [...] vein obstruction. HISTORY: Pancreatic Adenocarcinoma presents to [facility] from home for evaluation with daughters accompanying [...] Procedure Note Dano Gleason MD - 10/22/2024 [facility] - Department of Vascular Surgery,Vascular Laboratory [address] [place] [address] Lower Extremity Venous Ultrasound Report Patient Name: [...] and pain; r/o DVT - FINDINGS: Performing Booth Manager: Taylor Lauren RVT. Bilateral: Venous Doppler signals [...] calf veinobstruction. HISTORY: Pancreatic Adenocarcinoma presents to [facility] from home for evaluation withdaughters accompanying r/t [...] Transfuse RBC (10/21/2024 3:15 PM CDT) Blood us Jacquelyn Cintron [employer]ER BLOOD TRANSFUSION ORDERABL ES Final Result Performing Organization Address [facility]/ZIP Co de Phone Number [facility] [place] [employer] [place] [address] * Check Sample (10/21/2024 11:17 AM CDT) ABO Rh O Negative [facility] OTHER 10/21/2024 11:1 7 AM CDT 10/21/2024 11:26 AM CDT us Kalli Cox MD LAB BLOOD ORDERABLES Gail l Result Performing Organization Address [facility] [place] [address] [facility] * Type and screen (10/21/2024 9:36 AM CDT) ABO Rh O Negative Brigitte, indirect Negative [facility] Blood 10/21/2024 9:36 AM CDT 10/21/2024 9:52 AM CDT Narrative [facility] - 10/21/2024 10:57 AM CDT Has the patient had Daratumumab or Isatuximab in the past 6 months?->Unknown Jacquelyn Cintron NP LAB BLOOD BANK TEST ORDERA BLES Final Result Performing Organization Address [facility] Co de Phone Number [facility] [place] [address] * Prepare RBC: 1 Units (10/21/2024 9:27 AM CDT) Product code [id number] Unit Number [id number] [facility] Product Blood Type ONEG [facility] Dispense Status PRESUMED TRANSFUSED [facility] Blood 10/21/2024 9:27 AM CDT 10/21/2024 9:28 AM CDT Narrative [facility]RI[address] [facility] - 10/22/2024 12:55 AM CDT Are special requirements needed? (All products are leukoreduced and CMV- safe)- >No Date required:-[id number] LRRBC # of [id number] Reasons:-Hgb <7 g/dL} Jacquelyn Cintron [employer] BLOOD BANK PRODUCT ORDERAB LES Final Result Performing Organization Address [facility]/ZIP Co de Phone Number [facility] [place] [address] * eGFR (10/21/2024 6:50 AM CDT) eGFR [...] 10/21/2024 7:13 AM CDT us Theresa Schumacher OR[employer] LAB BLOOD ORDERABLES Final Result Performing Organization Address City/[facility]/ZIP Co de Phone Number [facility] [place] [address] * (ABNORMAL) Differential, auto (10/21/2024 6:50 AM CDT) Pathologist [facility] Neutrophil abs 1.77 1.50 - 6.50 K/cumm Imm gran abs 0.01 0.00 - 0.10 K/cumm [facility] Lymphocyte abs 0.54(L) 0.80 - 3.30 K/cumm [facility] Monocyte abs 0.18(L) 0.20 - 0.80 K/cumm [facility] Eosinophil abs 0.02 0.00 - 0.50 K/cumm [facility] Basophil abs 0.01 0.00 - 0.10 K/cumm [facility] Neutrophil pct 70.0 % [facility] Comment: Interpretive Data Percent cell count reference ranges are not reported, since discordance with absolute values may lead to misinterpretation of CBC data. Current Interpretive Data was last revised on 2017. Imm gran pct 0.4 % [facility] Comment: Interpretive Data Percent cell count reference ranges are not reported, since discordance with absolute values may lead to misinterpretation of CBC data. Current Interpretive Data was last revised on 2017. Lymphocyte pct 21.3 % [facility] Comment: Interpretive Data Percent cell count reference ranges are not reported, since discordance with absolute values may lead to misinterpretation of CBC data. Current Interpretive Data was last revised on 2017. Monocyte pct 7.1 % [facility] Comment: Interpretive Data Percent cell count reference ranges are not reported, since discordance with absolute values may lead to misinterpretation of CBC data. Current Interpretive Data was last revised on 2017. Eosinophil pct 0.8 % [facility] Comment: Interpretive Data Percent cell count reference ranges are not reported, since discordance with absolute values may lead to misinterpretation of CBC data. Current Interpretive Data was last revised on 2017. Basophil pct 0.4 % [facility] Comment: Interpretive Data Percent cell count reference ranges are not reported, since discordance with absolute values may lead to misinterpretation of CBC data. Current Interpretive Data was last revised on 2017. Blood 10/21/2024 6:50 AM CDT 10/21/2024 7:00 AM CDT Theresa Schumacher NP LAB BLOOD ORDERABLES Final Result Performing Organization Address City/[facility]/ZIP Co de Phone Number [facility] [place] [address] * (ABNORMAL) CBC with auto differential (10/21/2024 6:50 AM CDT) Pathologist [facility] WBC 2.53(L) 3.80 - 9.90 K/cumm Hgb 6.7(L) 11.9 - 15.5 g/dL [facility] Hct 20.7(L) 35.6 - 45.5 % [facility] Plt 110(L) 150 - 400 K/cumm [facility] MPV 10.5 9.1 - 12.3 fL [facility] RBC 2.31(L) 3.90 - 5.20 M/cumm [facility] MCV 89.6 81.3 - 96.4 fL [facility] MCH 29.0 27.1 - 33.3 pg [facility] MCHC 32.4 32.3 - 35.7 g/dL [facility] RDW CV 14.9 11.1 - 14.9 % [facility] RDW SD 48.6(H) 35.7 - 48.1 fL [facility] NRBC abs 0.00 0.00 - 0.01 K/cumm [facility] Blood 10/21/2024 6:50 AM CDT 10/21/2024 7:00 AM CDT Theresa Schumacher NP LAB BLOOD ORDERABLES Final Result [facility] [place] [address] * (ABNORMAL) Comprehensive metabolic panel (10/21/2024 6:50 AM CDT) Pathologist [facility] Sodium 137 135 - 145 mmol/L Potassium, pl 3.4 3.3 - 4.9 mmol/L [facility] Chloride 104 97 - 110 mmol/L [facility] CO2 28 22 - 32 mmol/L [facility] Anion gap 5 2 - 15 mmol/L [facility] BUN 11 6 - 25 mg/dL [facility] Creatinine 0.65 0.60 - 1.10 mg/dL [facility] Glucose 108 70 - 199 mg/dL [facility] Comment: Interpretive Data Fasting glucose >/= 126 [...] 8.2(L) 8.5 - 10.3 mg/dL [facility] Bilirubin, total 0.5 0.1 - 1.2 mg/dL [facility] Protein, pl 5.0(L) 6.5 - 8.5 g/dL [facility] Albumin 2.6(L) 3.5 - 5.0 g/dL [facility] Alk phos 182(H) 40 - 130 Units/L [facility] ALT 13 7 - 45 Units/L [facility] AST 16 10 - 45 Units/L [facility] Blood 10/21/2024 6:50 AM CDT 10/21/2024 7:00 AM CDT Theresa Schumacher NP LAB BLOOD ORDERABLES Final Result [facility] [place] [address] * Urinalysis reflex to microscopic and culture Urine, clean voided (10/21/2024 12:16 AM CDT) Color, ur Straw Yellow Clarity, ur Clear Clear [facility] Specific gravity, ur 1.013 1.003 - 1.030 [facility] pH, urine 6.0 [facility] Comment: Interpretive Data U rine pH is affected by diet, medications, systemic acid-base disturbances, and renal tubular function. pH may affect urinary stone formation. For example, urine pH below 6.0 may help reduce the tendency for calcium phosphate stones and pH greater than 6.0 may reduce the tendency for uric acid stone formation. Source: [facility] Current Interpretive Data was last revised on 2017 Protein, ur ql Trace Negative [facility] Glucose, ur ql Negative Negative [facility] Ketones, ur Negative Negative [facility] Bilirubin, ur Negative Negative [facility] Blood, ur Negative Negative [facility] Urobilinogen, ur <2.0 <2.0 mg/dL [facility] Nitrite, ur Negative Negative [facility] Leukocyte esterase, ur Negative Negative [facility] UA reflex comment Reflex conditions for microscopic UA and culture not met. [facility] Urine, clean voided 10/21/2024 12:16 AM CDT 10/21/2024 12:34 AM CDT Theresa Schumacher NP LAB MICROBIOLOGY - G ENERAL ORDERABLES Final Result [facility] [place] [address] * (ABNORMAL) Protime-INR (10/21/2024 12:16 AM CDT) PT 17.4(H) 9.7 - 13.0 sec INR 1.60(H) 0.90 - 1.20 [facility] Comment: Interpretive data Oral anticoagulant therapeutic ranges: Venous thromboembolism prophylaxis or treatment: 2.0-3.0 CARDIOLOGY Standard range: 2.0-3.0 High-intensity range: 2.5-3.5 Refer to indication-specific guidelines for appropriate target ranges for prosthetic heart valve replacement. Current interpretive data was last revised on 2019. Blood 10/21/2024 12:1 6 AM CDT 10/21/2024 12:43 AM CDT Narrative [facility] - 10/21/2024 1:03 AM CDT Baseline prior to rivaroxaban initiation Theresa Schumacher NP LAB BLOOD ORDERABLES Final Result [facility] [place] [address] * X-ray chest 2 views (10/21/2024 12:07 [...] DEV ICE Final Result Performing Organization Address City/[facility]/ZIP Co de Phone Number ENRIQUE [facility] [place] [address] * eGFR (10/20/2024 10:38 PM CDT) eGFR [...] BLOOD ORDERABLES Final Result Performing Organization Address City/[facility]/ZIP Co de Phone [facility] [place] [address] * (ABNORMAL) Differential, auto (10/20/2024 10:38 PM CDT) Neutrophil abs 2.30 1.50 - 6.50 K/cumm Imm gran abs 0.02 0.00 - 0.10 K/cumm [facility] Lymphocyte abs 0.51(L) 0.80 - 3.30 K/cumm [facility] Monocyte abs 0.18(L) 0.20 - 0.80 K/cumm [facility] Eosinophil abs 0.01 0.00 - 0.50 K/cumm [facility] Basophil abs 0.00 0.00 - 0.10 K/cumm [facility] Neutrophil pct 76.1 % [facility] Comment: Interpretive Data Percent cell count reference ranges are not reported, since discordance with absolute values may lead to misinterpretation of CBC data. Current Interpretive Data was last revised on 2017. Imm gran pct 0.7 % [facility] Comment: Interpretive Data Percent cell count reference ranges are not reported, since discordance with absolute values may lead to misinterpretation of CBC data. Current Interpretive Data was last revised on 2017. Lymphocyte pct 16.9 % [facility] Comment: Interpretive Data Percent cell count reference ranges are not reported, since discordance with absolute values may lead to misinterpretation of CBC data. Current Interpretive Data was last revised on 2017. Monocyte pct 6.0 % [facility] Comment: Interpretive Data Percent cell count reference ranges are not reported, since discordance with absolute values may lead to misinterpretation of CBC data. Current Interpretive Data was last revised on 2017. Eosinophil pct 0.3 % [facility] Comment: Interpretive Data Percent cell count reference ranges are not reported, since discordance with absolute values may lead to misinterpretation of CBC data. Current Interpretive Data was last revised on 2017. Basophil pct 0.0 % [facility] Comment: Interpretive Data Percent cell count reference ranges are not reported, since discordance with absolute values may lead to misinterpretation of CBC data. Current Interpretive Data was last revised on 2017. Blood 10/20/2024 10:3 8 PM CDT 10/20/2024 11:22 PM CDT Theresa Schumacher ORGAN TUNER LAB BLOOD ORDERABLES Final Result [facility] [place] [address] * Respiratory pathogen panel Nasopharyngeal (10/20/2024 10:38 PM CDT) Pathologist [facility] Influenza A RNA Not Detected Not Detected Influenza B RNA Not Detected Not Detected [facility] RSV RNA Not Detected Not Detected [facility] COVID-19 RNA Not Detected Not Detected [facility] Coronavirus 229E RNA Not Detected Not Detected [facility] Coronavirus HKU1 RNA Not Detected Not Detected [facility] Coronavirus NL63 RNA Not Detected Not Detected [facility] Coronavirus OC43 RNA Not Detected Not Detected [facility] Adenovirus DNA Not Detected Not Detected [facility] Metapneumovirus RNA Not Detected Not Detected [facility] Rhinovirus/Enterov irus RNA Not Detected Not Detected [facility] Parainfluenza 1 RNA Not Detected Not Detected [facility] Parainfluenza 2 RNA Not Detected Not Detected [facility] Parainfluenza 3 RNA Not Detected Not Detected [facility] Parainfluenza 4 RNA Not Detected Not Detected [facility] B. pertussis DNA Not Detected Not Detected [facility] B. parapertussis DNA Not Detected Not Detected [facility] C. pneumoniae DNA Not Detected Not Detected [facility] M. pneumoniae DNA Not Detected Not Detected [facility] Nasopharyngeal 10/20/2024 10 :38 PM CDT 10/20/2024 11:47 PM CDT Narrative [facility] - 10/21/2024 12:44 AM CDT Is the Patient experiencing symptoms consistent with COVID?->Yes Surveillance testing for transplant patient?->No Interpretive Data The [employer] FilmArray Respiratory Panel (RP2.1) assay is a [...] assay has FDA clearance for testing of ORGAN TUNER swabs. The performance of additional specimen types has been assessed by the performing laboratory. The performance characteristics of this assay have been determined by [facility] Molecular Infectious Disease Laboratory. Current interpretive data was last revised on 22. Theresa Schumacher ORGAN TUNER LAB MICROBIOLOGY - G ENERAL ORDERABLES Final Result [facility] Department [place] [address] * (ABNORMAL) CBC with auto differential (10/20/2024 10:38 PM CDT) [facility] WBC 3.02(L) 3.80 - 9.90 K/cumm Hgb 7.1(L) 11.9 - 15.5 g/dL [facility] Hct 21.9(L) 35.6 - 45.5 % [facility] Plt 124(L) 150 - 400 K/cumm [facility] MPV 10.5 9.1 - 12.3 fL [facility] RBC 2.46(L) 3.90 - 5.20 M/cumm [facility] MCV 89.0 81.3 - 96.4 fL [facility] MCH 28.9 27.1 - 33.3 pg [facility] MCHC 32.4 32.3 - 35.7 g/dL [facility] RDW CV 14.7 11.1 - 14.9 % [facility] RDW SD 47.4 35.7 - 48.1 fL [facility] NRBC abs 0.00 0.00 - 0.01 K/cumm [facility] Blood 10/20/2024 10:3 8 PM CDT 10/20/2024 11:22 PM CDT Theresa Schumacher ORGAN TUNER LAB BLOOD ORDERABLES Final Result [facility] Department [place] [address] * Blood culture Blood (10/20/2024 10:38 PM CDT) Report Final Report: No growth Blood 10/20/2024 10:3 8 PM CDT 10/21/2024 12:22 AM CDT Narrative [facility] - 10/25/2024 7:01 AM CDT From a [...] characteristics have been verified by the [facility] Microbiology Laboratory. For questions about this culture, contact the Microbiology Laboratory at [phone]. Interpretive data was last revised on 24. Theresa Schumacher ORGAN TUNER LAB MICROBIOLOGY - G ENERAL ORDERABLES Final Result ENRIQUE MALLORY [facility] Department [place] [address] * Blood culture Blood (10/20/2024 10:38 PM CDT) Report Final Report: No growth Blood 10/20/2024 10:3 8 PM CDT 10/21/2024 12:12 AM CDT Narrative ENRIQUE BETANCOURT - 10/25/2024 7:01 AM CDT 1. Blood [...] characteristics have been verified by the [facility] Microbiology Laboratory. For questions about this culture, contact the Microbiology Laboratory at [phone]. Interpretive data was last revised on 24. Theresa Schumacher NP LAB MICROBIOLOGY - G ENERAL ORDERABLES Final Result [facility] Department [place] [address] * (ABNORMAL) Comprehensive metabolic panel (10/20/2024 10:38 PM CDT) Sodium 138 135 - 145 mmol/L Potassium, pl 3.6 3.3 - 4.9 mmol/L [facility] Chloride 104 97 - 110 mmol/L [facility] CO2 26 22 - 32 mmol/L [facility] Anion gap 8 2 - 15 mmol/L [facility] BUN 13 6 - 25 mg/dL [facility] Creatinine 0.74 0.60 - 1.10 mg/dL [facility] Glucose 100 70 - 199 mg/dL [facility] Comment: Interpretive Data Fasting glucose >/= 126 [...] 2022. Calcium 8.7 8.5 - 10.3 mg/dL [facility] Bilirubin, total 0.7 0.1 - 1.2 mg/dL [facility] Protein, pl 5.2(L) 6.5 - 8.5 g/dL [facility] BJ Albumin 2.8(L) 3.5 - 5.0 g/dL [facility] Alk phos 195(H) 40 - 130 Units/L [facility] ALT 13 7 - 45 Units/L [facility] AST 18 10 - 45 Units/L [facility] Blood 10/20/2024 10:3 8 PM CDT 10/20/2024 11:23 PM CDT us Theresa Schumacher NP LAB BLOOD ORDERABLES Final Result Performing Organization Address [facility] Co de Phone Number ENRIQUE [facility] Department [place] [address] * eGFR (10/17/2024 10:06 AM CDT) eGFR [...] was last reviewed 2021. Testing performed by: [facility], [address] [place] [address] Blood 10/17/2024 10:0 6 AM CDT 10/17/2024 10:26 AM CDT us Kalli Cox MD LAB BLOOD ORDERABLES Gail l Result Performing Organization Address City/[facility]/ZIP Co de Phone Number ENRIQUE BJWCH [address] [facility]. [place] [address] * Differential, auto (10/17/2024 10:06 AM CDT) Neutrophil abs 3.45 1.50 - 6.50 K/cumm Comment:Testing performed by : [facility], [facility], [address] [place] [address] Imm gran abs 0.02 0.00 - 0.10 K/cumm CERNER BJWCH Comment:Testing performed by : [facility], [facility], [address] [place] [address] Lymphocyte abs 1.10 0.80 - 3.30 K/cumm CERNER BJWCH Comment:Testing performed by : [facility], [facility], [address] [place] [address] Monocyte abs 0.28 0.20 - 0.80 K/cumm [facility]ER B[facility] Comment:Testing performed by : [facility], [facility], [address] [place] [address] Eosinophil abs 0.05 0.00 - 0.50 K/cumm [facility]ER [facility] Comment:Testing performed by : [facility], [facility], [address], [place] [address] Basophil abs 0.01 0.00 - 0.10 K/cumm [facility] Comment:Testing performed by : [facility], [facility], [address] [place] [address] Neutrophil pct 70.3 % [facility] Comment: Interpretive Data Percent cell count reference ranges are not reported, since discordance with absolute values may lead to misinterpretation of CBC data. Current Interpretive Data was last revised on 2017. Testing performed by: [facility], [facility], [address] [place] [address] Imm gran pct 0.4 % [facility] Comment: Interpretive Data Percent cell count reference ranges are not reported, since discordance with absolute values may lead to misinterpretation of CBC data. Current Interpretive Data was last revised on 2017. Testing performed by: [facility], [facility], [address] [place] [address] Lymphocyte pct 22.4 % [facility] Comment: Interpretive Data Percent cell count reference ranges are not reported, since discordance with absolute values may lead to misinterpretation of CBC data. Current Interpretive Data was last revised on 2017. Testing performed by: [facility], [facility], [address] [place] [address] Monocyte pct 5.7 % [facility] Comment: Interpretive Data Percent cell count reference ranges are not reported, since discordance with absolute values may lead to misinterpretation of CBC data. Current Interpretive Data was last revised on 2017. Testing performed by: [facility], [facility], [address] [place] [address] Eosinophil pct 1.0 % [facility] Comment: Interpretive Data Percent cell count reference ranges are not reported, since discordance with absolute values may lead to misinterpretation of CBC data. Current Interpretive Data was last revised on 2017. Testing performed by: [facility], [facility], [address] [place] [address] Basophil pct 0.2 % [facility] Comment: Interpretive Data Percent cell count reference ranges are not reported, since discordance with absolute values may lead to misinterpretation of CBC data. Current Interpretive Data was last revised on 2017. Testing performed by: [facility], [facility], [address] [place] [address] Blood 10/17/2024 10:0 6 AM CDT 10/17/2024 10:09 AM CDT us Ibeth'Maurisio Cox MD LAB BLOOD ORDERABLES Gail radha Result ENRIQUE BETANCOURTWCH [address] [facility]. Department [place] [address] * (ABNORMAL) CBC with auto differential (10/17/2024 10:06 AM CDT) WBC 4.91 3.80 - 9.90 K/cumm Comment:Testing performed by : [place] [address], [address], [place] [address] Hgb 9.0(L) 11.9 - 15.5 g/dL [facility] Comment:Testing performed by : [place] [address], [address], [place] [address] Hct 28.8(L) 35.6 - 45.5 % [facility] Comment:Testing performed by : [place] [address], [address], [place] [address] Plt 202 150 - 400 K/cumm [facility] Comment:Testing performed by : [place] [address] [place] [address] MPV 9.2 9.1 - 12.3 fL [facility] Comment:Testing performed by : [place] [address], [place] [address] RBC 3.15(L) 3.90 - 5.20 M/cumm [facility] Comment:Testing performed by : [place] [address], [place] [address] MCV 91.4 81.3 - 96.4 fL [facility] Comment:Testing performed by : [place] [address], [place] [address] MCH 28.6 27.1 - 33.3 pg [facility] Comment:Testing performed by : [place] [address], [address], [place] [address] MCHC 31.3(L) 32.3 - 35.7 g/dL [facility] Comment:Testing performed by : [place] [address], [address] [place] [address] RDW CV 15.0(H) 11.1 - 14.9 % [facility] Comment:Testing performed by : [place] [address], [address] [place] [address] RDW SD 50.7(H) 35.7 - 48.1 fL [facility] TORRES Comment:Testing performed by : [facility], [facility] [address], [address] [place] [address] ANC Prelim 3.45 1.50 - 6.50 K/cumm [facility]QUE TORRES Comment: Interpretive Data The rapid ANC is a preliminary automated count and may vary from the final ANC (Neut Abs) reported in the WBC differential that follows. Current interpretive data was last revised 2024. Testing performed by: [facility], [facility], [address] [place] [address] Blood 10/17/2024 10:0 6 AM CDT 10/17/2024 10:09 AM CDT [facility]Maurisio Cox MD LAB BLOOD ORDERABLES Gail l Result ENRIQUE TORRES [address] [address]. [place] [address] * (ABNORMAL) Comprehensive metabolic panel (10/17/2024 10:06 AM CDT) Sodium 139 135 - 145 mmol/L Comment:Testing performed by : [facility], [address] [place] [address] Potassium, pl 4.0 3.3 - 4.9 mmol/L ENRIQUE TORRES Comment:Testing performed by : [facility], [address] [place] [address] Chloride 104 97 - 110 mmol/L ENRIQUE TORRES Comment:Testing performed by : [facility], [address] [place] [address] CO2 28 22 - 32 mmol/L ENRIQUE TORRES Comment:Testing performed by : [facility], [address] [place] [address] Anion gap 7 2 - 15 mmol/L ENRIQUE TORRES Comment:Testing performed by : [facility], [address], [place] [address] BUN 15 6 - 25 mg/dL [facility]ER B[facility] Comment:Testing performed by : [facility], [address], [place] [address] Creatinine 0.70 0.60 - 1.10 mg/dL [facility] Comment:Testing performed by : [facility], [address], [place] [address] Glucose 90 70 - 199 mg/dL CERNER [...] was last revised 2022. Testing performed by: [facility], [address], [place] [address] Calcium 8.8 8.5 - 10.3 mg/dL [facility] Comment:Testing performed by : [facility], [address], [place] [address] Bilirubin, total 0.6 0.1 - 1.2 mg/dL [facility] Comment:Testing performed by : [facility], [address], [place] [address] Protein, pl 5.8(L) 6.5 - 8.5 g/dL [facility] Comment:Testing performed by : [facility], [address], [place] [address] Albumin 3.3(L) 3.5 - 5.0 g/dL [facility] Comment:Testing performed by : [facility], [address], [place] [address] Alk phos 325(H) 40 - 130 Units/L [facility] Comment:Testing performed by : [facility], [address] [place] [address] ALT 29 7 - 45 Units/L ENRIQUE TORRES Comment:Testing performed by : [facility], [address] [place] [address] AST 27 10 - 45 Units/L ENRIQUE TORRES Comment:Testing performed by : [facility], [address] [place] [address] Blood 10/17/2024 10:0 6 AM CDT 10/17/2024 10:26 AM CDT [facility]Maurisio Cox MD LAB BLOOD ORDERABLES Gail garcia Result ENRIQUE BRIAN [address] [address]. [place] [address] * eGFR (10/14/2024 8:30 AM CDT) eGFR [...] was last reviewed 2021. Testing performed by: [facility], [address], [place] [address] Blood 10/14/2024 8:30 AM CDT 10/14/2024 8:54 AM CDT us Moh'Maurisio Cox MD LAB BLOOD ORDERABLES Gail garcia Result ENRIQUE TORRES [address] [address] [facility]. [place] [address] * Differential, auto (10/14/2024 8:30 AM CDT) Neutrophil abs 3.00 1.50 - 6.50 K/cumm Comment:Testing performed by : [facility], [address] [place] [address] Imm gran abs 0.00 0.00 - 0.10 K/cumm CERNER BJWCH Comment:Testing performed by : [place] [address], [address] [place] [address] Lymphocyte abs 1.24 0.80 - 3.30 K/cumm CERNER BJWCH Comment:Testing performed by : [place] [address], [address] [place] [address] Monocyte abs 0.80 0.20 - 0.80 K/cumm CERNER BJWCH Comment:Testing performed by : [place] [address], [address] [place] [address] Eosinophil abs 0.12 0.00 - 0.50 K/cumm CERNER BJW[facility] Comment:Testing performed by : [place] [address], [address] [place] [address] Basophil abs 0.03 0.00 - 0.10 K/cumm CERNER BJWCH Comment:Testing performed by : [place] [address], [address] [place] [address] Neutrophil pct 57.8 % C[facility] Comment: Interpretive Data Percent cell count reference ranges are not reported, since discordance with absolute values may lead to misinterpretation of CBC data. Current Interpretive Data was last revised on 2017. Testing performed by: [place] [address], [address] [place] [address] Imm gran pct 0.0 % [facility] Comment: Interpretive Data Percent cell count reference ranges are not reported, since discordance with absolute values may lead to misinterpretation of CBC data. Current Interpretive Data was last revised on 2017. Testing performed by: [facility], [facility], [address] [place] [address] Lymphocyte pct 23.9 % [facility] Comment: Interpretive Data Percent cell count reference ranges are not reported, since discordance with absolute values may lead to misinterpretation of CBC data. Current Interpretive Data was last revised on 2017. Testing performed by: [facility], [facility], [address] [place] [address] Monocyte pct 15.4 % [facility] Comment: Interpretive Data Percent cell count reference ranges are not reported, since discordance with absolute values may lead to misinterpretation of CBC data. Current Interpretive Data was last revised on 2017. Testing performed by: [facility], [facility], [address] [place] [address] Eosinophil pct 2.3 % [facility] Comment: Interpretive Data Percent cell count reference ranges are not reported, since discordance with absolute values may lead to misinterpretation of CBC data. Current Interpretive Data was last revised on 2017. Testing performed by: [facility], [facility], [address] [place] [address] Basophil pct 0.6 % [facility] Comment: Interpretive Data Percent cell count reference ranges are not reported, since discordance with absolute values may lead to misinterpretation of CBC data. Current Interpretive Data was last revised on 2017. Testing performed by: [facility], [facility], [address] [place] [address] Blood 10/14/2024 8:30 AM CDT 10/14/2024 8:33 AM CDT us Moh'Maurisio Cox MD LAB BLOOD ORDERABLES Gail garcia Result [facility] [address] [facility] Department of Laboratories [place], [place] [id number] * (ABNORMAL) CBC with auto differential (10/14/2024 8:30 AM CDT) WBC 5.19 3.80 - 9.90 K/cumm Comment:Testing performed by : [place] [address] [place] [address] Hgb 8.8(L) 11.9 - 15.5 g/dL CERMARCELO BJWCH Comment:Testing performed by : [place] [address] [place] [address] Hct 27.5(L) 35.6 - 45.5 % CERMARCELO BETANCOURTWCH Comment:Testing performed by : [place] [address] [place] [address] Plt 209 150 - 400 K/cumm ENRIQUE BETANCOURTCH Comment:Testing performed by : [place] [address] [place] [address] MPV 9.7 9.1 - 12.3 fL CERMARCELO BETANCOURTCH Comment:Testing performed by : [place] [address] [place] [address] RBC 3.04(L) 3.90 - 5.20 M/cumm ENRIQUE BJWCH Comment:Testing performed by : [place] [address], [address] [place] [address] MCV 90.5 81.3 - 96.4 fL CERMARCELO BJWCH Comment:Testing performed by : [place] [address], [address] [place] [address] MCH 28.9 27.1 - 33.3 pg CERMARCELO BJWCH Comment:Testing performed by : [place] [address], [place] [address] MCHC 32.0(L) 32.3 - 35.7 g/dL ENRIQUE TORRES Comment:Testing performed by : [facility], [facility], [address] [place] [address] RDW CV 14.4 11.1 - 14.9 % ENRIQUE TORRES Comment:Testing performed by : [facility], [facility], [address] [place] [address] RDW SD 47.6 35.7 - 48.1 fL ENRIQUE TORRES Comment:Testing performed by : [facility], [facility], [address] [place] [address] ANC Prelim 3.00 1.50 - 6.50 K/cumm ENRIQUE TORRES Comment: Interpretive Data The rapid ANC is a preliminary automated count and may vary from the final ANC (Neut Abs) reported in the WBC differential that follows. Current interpretive data was last revised 2024. Testing performed by: [facility], [facility], [address] [place] [address] Blood 10/14/2024 8:30 AM CDT 10/14/2024 8:33 AM CDT [facility]Maurisio Cox MD LAB BLOOD ORDERABLES Gail l Result [facility] [address] [facility]. [place] [address] * (ABNORMAL) Cancer antigen 19-9 (10/14/2024 8:30 AM CDT) CA 19-9 ag 46.8(H) 0.0 - 35.0 units/mL Comment: Interpretive Data The Sree CA 19-9 assay procedure was used. Results from different manufacturers or methods may not be comparable. Serial testing should be performed using the same method. Testing performed by: [facility], [facility], [place]., [address] Blood 10/14/2024 8:30 AM CDT 10/14/2024 10:46 AM CDT Kalli Cox MD LAB BLOOD ORDERABLES Gail l Result Performing Organization Address [facility] de Phone Number ENRIQUE BETANCOURTWCH [address] [address] [facility] [place] [address] * TSH (10/14/2024 8:30 AM CDT) Thyroid Stimulating Hormone 0.52 0.30 - 4.20 mcIUnit/mL Comment:Testing performed by : [facility], [address] [place] [address] Blood 10/14/2024 8:30 AM CDT 10/14/2024 8:54 AM CDT Kalli Cox MD LAB BLOOD ORDERABLES Gail l Result Performing Organization Address [facility] de Phone Number ENRIQUE BJCH [address] [address] [employer]. [facility] [place] [address] * (ABNORMAL) T4, free (10/14/2024 8:30 AM CDT) Pathologist [facility] Free T4 1.95(H) 0.90 - 1.70 ng/dL Comment:Testing performed by : [facility], [address] [place] [address] Blood 10/14/2024 8:30 AM CDT 10/14/2024 8:54 AM CDT Kalli Cox MD LAB BLOOD ORDERABLES Gail l Result Performing Organization Address [facility] Co de Phone Number ENRIQUE BJCH [address] [address] [employer]. [facility] [place] [place] [address] * (ABNORMAL) Comprehensive metabolic panel (10/14/2024 8:30 AM CDT) Sodium 138 135 - 145 mmol/L Comment:Testing performed by : [facility], [address], [place] [address] Potassium, pl 3.7 3.3 - 4.9 mmol/L CERNER BJWCH Comment:Testing performed by : [facility], [address], [place] [address] Chloride 103 97 - 110 mmol/L CERNER BJWCH Comment:Testing performed by : [facility], [address], [place] [address] CO2 23 22 - 32 mmol/L CERNER BJWCH Comment:Testing performed by : [facility] [facility], [address], [place] [address] Anion gap 12 2 - 15 mmol/L CERNER BJWCH Comment:Testing performed by : [facility], [address], [place] [address] BUN 14 6 - 25 mg/dL CERNER BJWCH Comment:Testing performed by : [facility], [address], [place] [address] Creatinine 0.74 0.60 - 1.10 mg/dL CERNER BJWCH Comment:Testing performed by : [facility], [address], [place] [address] Glucose 94 70 - 199 mg/dL CERNER [...] was last revised 2022. Testing performed by: [facility], [address], [place] [address] Calcium 9.1 8.5 - 10.3 mg/dL CERNER BJWCH Comment:Testing performed by : [facility], [address], [place] [address] Bilirubin, total 0.6 0.1 - 1.2 mg/dL CERNER BJWCH Comment:Testing performed by : [facility], [address], [place] [address] Protein, pl 5.7(L) 6.5 - 8.5 g/dL CERNER BJWCH Comment:Testing performed by : [facility], [address], [place] [address] Albumin 3.4(L) 3.5 - 5.0 g/dL CERNER BJWCH Comment:Testing performed by : [facility], [address], [place] [address] Alk phos 387(H) 40 - 130 Units/L CERNER BJWCH Comment:Testing performed by : [facility], [address], [place] [address] ALT 37 7 - 45 Units/L CERNER BJWCH Comment:Testing performed by : [facility], [address], [place] [address] AST 22 10 - 45 Units/L CERNER BJWCH Comment:Testing performed by : [facility], [address], [place] [address] Blood 10/14/2024 8:30 AM CDT 10/14/2024 8:54 AM CDT [facility]aur[facility] Cox MD LAB BLOOD ORDERABLES Gail l Result ENRIQUE BJWCH [address] [place] [address] * IR Port Placement Chest > 5 Years (10/10/2024 10:16 AM CDT) Anatomical Region Laterality Modality Chest N/A X-Ray Angiograph y 10/10/2024 10:3 1 AM CDT Impressions 10/10/2024 10:31 AM CDT Successful chest wall port placement. PLAN: The catheter is ready for immediate use. Please note that a power injectable port was placed. When treatment is completed, removal can be scheduled by calling [facility] - [phone] [facility] - [phone] Electronically signed by: Feliciano Martinez PA-C Narrative [...] was obtained. Prior to beginning the procedure, [place] Protocol was used to confirm the patient's [...] was obtained. Prior to beginning the procedure, [place] Protocol was used to confirm the patient's [...] completed, removal can be scheduled by calling [place] [phone] [facility] - [phone] Electronically signed by: Feliciano Martinez PA-C [facility]aur[facility]io Cox MD IMG IR PROCEDURES Final R [...] obtained. The study was interpreted on the [employer] workstation. The mean liver SUV (reported for water quality assistant purposes) is 1.7. The total scanned area [...] obtained. The study was interpreted on the [employer] workstation. The mean liver SUV (reported for water quality assistant purposes) is 1.7. The total scanned area [...] it. Electronically signed by: Johan Krishna MD [facility] Genevieve Cox MD IMG PET PROCEDURES Final [...] was last reviewed 2021. Testing performed by: [facility], [address] [place] [address] Blood 10/07/2024 4:00 PM CDT 10/07/2024 4:36 PM CDT [facility]aurisio Cox MD LAB BLOOD ORDERABLES Gail l Result [facility] [address] Department of Laboratories [place], [place] [id number] * (ABNORMAL) Differential, auto (10/07/2024 4:00 PM CDT) Pathologist [facility] Neutrophil abs 4.52 1.50 - 6.50 K/cumm Comment:Testing performed by : [facility], MOB [address], [address] [place] [address] Imm gran abs 0.01 0.00 - 0.10 K/cumm ENRIQUE BETANCOURTWSTEVE Comment:Testing performed by : [facility], [facility] 2, [address] [place] [address] Lymphocyte abs 0.48(L) 0.80 - 3.30 K/cumm CERNER BJWCH Comment:Testing performed by : [facility], [facility] 2, [address], [place] [address] Monocyte abs 0.37 0.20 - 0.80 K/cumm CERNER BJWCH Comment:Testing performed by : [facility], [facility] 2, [address] [place] [address] Eosinophil abs 0.01 0.00 - 0.50 K/cumm CERNER BJWCH Comment:Testing performed by : [facility], [facility] 2, [address] [place] [address] Basophil abs 0.01 0.00 - 0.10 K/cumm CERNER BJWCH Comment:Testing performed by : [facility], [facility] 2, [address] [place] [address] Neutrophil pct 83.6 % CERNER BJWCH Comment: Interpretive Data Percent cell count reference ranges are not reported, since discordance with absolute values may lead to misinterpretation of CBC data. Current Interpretive Data was last revised on 2017. Testing performed by: [facility], [facility] 2, [address] [place] [address] Imm gran pct 0.2 % CERNER BJWCH Comment: Interpretive Data Percent cell count reference ranges are not reported, since discordance with absolute values may lead to misinterpretation of CBC data. Current Interpretive Data was last revised on 2017. Testing performed by: [facility], [facility] 2, [address], [place] [address] Lymphocyte pct 8.9 % CERNER BJWCH Comment: Interpretive Data Percent cell count reference ranges are not reported, since discordance with absolute values may lead to misinterpretation of CBC data. Current Interpretive Data was last revised on 2017. Testing performed by: [facility], [facility] 2, [address] [place] [address] Monocyte pct 6.9 % CERNER BJWCH Comment: Interpretive Data Percent cell count reference ranges are not reported, since discordance with absolute values may lead to misinterpretation of CBC data. Current Interpretive Data was last revised on 2017. Testing performed by: [facility] 2, [address] [place] [address] Eosinophil pct 0.2 % ENRIQUE TORRES Comment: Interpretive Data Percent cell count reference ranges are not reported, since discordance with absolute values may lead to misinterpretation of CBC data. Current Interpretive Data was last revised on 2017. Testing performed by: [facility] 2, [address] [place] [address] Basophil pct 0.2 % ENRIQUE TORRES Comment: Interpretive Data Percent cell count reference ranges are not reported, since discordance with absolute values may lead to misinterpretation of CBC data. Current Interpretive Data was last revised on 2017. Testing performed by: [facility] 2, [address] [place] [address] Blood 10/07/2024 4:00 PM CDT 10/07/2024 4:01 PM CDT [facility]aurisio Cox MD LAB BLOOD ORDERABLES Gail garcia Result ENRIQUE BETANCOURTWCH [address] [facility]. [place] [address] * (ABNORMAL) CBC with auto differential (10/07/2024 4:00 PM CDT) WBC 5.40 3.80 - 9.90 K/cumm Comment:Testing performed by : [facility], [facility] 2, [address] [place] [address] Hgb 9.0(L) 11.9 - 15.5 g/dL ENRIQUE TORRES Comment:Testing performed by : [facility] 2, [address] [place] [address] Hct 28.7(L) 35.6 - 45.5 % ENRIQUE TORRES Comment:Testing performed by : [facility] 2, [address] [place] [address] Plt 185 150 - 400 K/cumm CERNER BJWCH Comment:Testing performed by : [place] [address] [place] [address] MPV 9.1 9.1 - 12.3 fL CERNER BJWCH Comment:Testing performed by : [place] [address] [place] [address] RBC 3.06(L) 3.90 - 5.20 M/cumm CERNER BJWCH Comment:Testing performed by : [place] [address] [place] [address] MCV 93.8 81.3 - 96.4 fL CERNER BJWCH Comment:Testing performed by : [place] [address] [place] [address] MCH 29.4 27.1 - 33.3 pg CERNER BJWCH Comment:Testing performed by : [place] [address] [place] [address] MCHC 31.4(L) 32.3 - 35.7 g/dL CERNER BJWCH Comment:Testing performed by : [place] [address] [place] [address] RDW CV 15.4(H) 11.1 - 14.9 % CERNER BJWCH Comment:Testing performed by : [place] [address], [place] [address] RDW SD 53.6(H) 35.7 - 48.1 fL CERNER BJWCH Comment:Testing performed by : [place] [address] [place] [address] ANC Prelim 4.52 1.50 - 6.50 K/cumm CERNER BJWCH Comment: Interpretive Data The rapid ANC is a preliminary automated count and may vary from the final ANC (Neut Abs) reported in the WBC differential that follows. Current interpretive data was last revised 2024. Testing performed by: [facility], M[address], [address] [place] [address] Blood 10/07/2024 4:00 PM CDT 10/07/2024 4:01 PM CDT [facility] LAB BLOOD ORDERABLES Gail l Result Performing Organization Address [facility] de Phone Number [facility] [address] [facility]. [facility] [place] [place] [address] * (ABNORMAL) Cancer antigen 19-9 (10/07/2024 4:00 PM CDT) CA 19-9 ag 79.3(H) 0.0 - 35.0 units/mL Comment: Interpretive Data The Sree CA 19-9 assay procedure was used. Results from different manufacturers or methods may not be comparable. Serial testing should be performed using the same method. Testing performed by: [facility], [address] [place] [address]., [address] Blood 10/07/2024 4:00 PM CDT 10/07/2024 6:08 PM CDT [facility] MD LAB BLOOD ORDERABLES Gail l Result Performing Organization Address [facility] Co de Phone Number [facility] [address] [facility]. Department [place] [place] [address] * (ABNORMAL) Protime-INR (10/07/2024 4:00 PM CDT) PT 14.2(H) 9.7 - 13.0 sec Comment:Testing performed by : [facility], [address] [place] [address] INR 1.31(H) 0.90 - 1.20 ENRIQUE BJWCH Comment: Interpretive data Oral anticoagulant therapeutic ranges: Venous thromboembolism prophylaxis or treatment: 2.0-3.0 CARDIOLOGY Standard range: 2.0-3.0 High-intensity range: 2.5-3.5 Refer to indication-specific guidelines for appropriate target ranges for prosthetic heart valve replacement. Current interpretive data was last revised on 2019. Testing performed by: [facility], [address] [place] [address] Blood 10/07/2024 4:00 PM CDT 10/07/2024 4:36 PM CDT Kalli Cox MD LAB BLOOD ORDERABLES Gail garcia Result [facility] [address] [place] [address] * (ABNORMAL) Comprehensive metabolic panel (10/07/2024 4:00 PM CDT) Sodium 141 135 - 145 mmol/L Comment:Testing performed by : [facility], [address] [place], [place] [address] Potassium, pl 4.2 3.3 - 4.9 mmol/L CERMARCELO BJW Comment:Testing performed by : [facility], [address] [place], [place] [address] Chloride 105 97 - 110 mmol/L CERMARCELO BJWCH Comment:Testing performed by : [facility], [address] [place] [address] CO2 26 22 - 32 mmol/L CERMARCELO BJWCH Comment:Testing performed by : [facility], [address] [place] [address] Anion gap 11 2 - 15 mmol/L CERMARCELO BJWCH Comment:Testing performed by : [facility], [address] [place], [place] [address] BUN 13 6 - 25 mg/dL CERNER BJWCH Comment:Testing performed by : [facility], [address] [place] [address] Creatinine 0.71 0.60 - 1.10 mg/dL CERNER BJWCH Comment:Testing performed by : [facility], [address], [place] [address] Glucose 106 70 - 199 mg/dL CERNER [...] was last revised 2022. Testing performed by: [facility], [address], [place] [address] Calcium 9.6 8.5 - 10.3 mg/dL CERNER BJWCH Comment:Testing performed by : [facility], [address], [place] [address] Bilirubin, total 1.8(H) 0.1 - 1.2 mg/dL CERNER BJWCH Comment:Testing performed by : [facility], [address], [place] [address] Protein, pl 6.2(L) 6.5 - 8.5 g/dL CERNER BJWCH Comment:Testing performed by : [facility], [address], [place] [address] Albumin 3.6 3.5 - 5.0 g/dL CERNER BJWCH Comment:Testing performed by : [facility], [address], [place] [address] Alk phos 794(H) 40 - 130 Units/L CERNER BJWCH Comment:Testing performed by : [facility], [address], [place] [address] ALT 107(H) 7 - 45 Units/L CERNER BJWCH Comment:Testing performed by : [facility], [address], [place] [address] AST 240(H) 10 - 45 Units/L CERNER BJWCH Comment:Testing performed by : [facility], [address], [place] [address] Blood 10/07/2024 4:00 PM CDT 10/07/2024 4:36 PM CDT Kalli Cox MD LAB BLOOD ORDERABLES Gail l Result [facility] [address] [address] [place] [address] * [id number] (10/07/2024 3:52 PM CDT) MSI-HIGH NOT DETECTED 10/14/2024 7:47 PM CDT [facility] TMB 4.75 mut/Mb 10/14/2024 7:47 PM CDT [facility] HRD Not detected 10/14/2024 7:47 PM CDT [facility] TUMOR FRACTION 0.4% 10/14/2024 7:47 PM CDT [facility] Chip TET2 Q644* (0.5%) 10/14/2024 7:47 PM CDT [facility] Blood specimen (specimen) Venous blood specimen / Unknown 10/07/2024 3:52 PM CDT 10/09/2024 11:07 AM CDT Narrative This result has genomic variants that were not included in this document. Kalli Cox MD LAB GENETIC TESTING Final Result [facility] [address], [place] [address] [phone] [facility] [address] [place] [address] * POCT lipid panel (09/27/2024 1:34 PM [...] 09/19/2024 1:07 PM CDT Narrative PATHOLOGY [facility] - 09/20/2024 2:24 PM CDT EPIC results best viewed via link to PDF [facility] Suha Monahan [facility] [place] [address] Note to Patients: This report may contain [...] Gender: F : 1950 (Age: 73) Address: [address] [place] [address] Hospital #: [id number] Taken:09/19/2024 Received:09/19/2024 Reported: 09/20/2024 Patient Type: [facility] ED Service: Emergency Location: [facility] ED Physician(s): Puma Wagner M.D. Natasha Amena Jane Jess, MD Diagnosis: Pancreas, neck, mass, fine needle [...] cm in aggregate). Labeled A1. Jar 0. [facility]/09/19/2024 15:19 PA(s): Evelyn Cunningham By this signature, I attest that the above diagnosis is based upon my personal examination of the slides(and/or other material). Addenda/Procedures The performance characteristics of some immunohistochemical stains, fluorescence in-situ hybridization tests and immunophenotyping by flow cytometry cited in this report (if any) were determined by the Surgical Pathology and Flow Cytometry Departments at [facility] as part of an ongoing assistant quality manager program and in compliance with federally [...] Pathology and Flow Cytometry Departments of [facility]. It has not been cleared or approved by the U. S. Food and Drug Administration. IMAGES AND SCANNED DOCUMENTS, IF INCLUDED, ONLY VIEWABLE IN PDF VERSION OF REPORT us David Berwer MD LAB PATHOLOGY ORDERABLES [facility] Result PATHOLOGY [facility] 3rd Floor [place], [place] [phone] * Upper EUS (09/19/2024 12:32 PM CDT) Anatomical Region Laterality Modality Other Narrative Procedure Note David Brewer MD - 09/19/2024 12:32 PM CDT [facility] ENDOS[facility] Patient Name: Susannah Camargo Procedure Date: 09/19/2024 12:32 PM Date of : 1950 Admit Type: Outpatient Age: 73 Gender: Female Attending MD: David Brewer M.D. Room: [facility] ENDOSCOPY ROOM 1 Note Status: Finalized Procedure: [...] consent was obtained.The Olympuscurved linear array therapeutic [id number] was introduced through the mouth, and advanced [...] Three passes were madewith the 22 gauge [employer] needle using a transgastric approach. A stylet [...] following this procedure please call my officeat [phone] ([phone]) to speak to my nurses. After hours and evenings please call [phone] speak to the GI fellow laborer demolition. Please tell themthat Dr. Brewer did your procedure and that your were instructed to have the fellow call me or thephysician covering for me to discuss the management of your condition. If you have an urgent problem, please goto the nearest emergency room and have the ER doctorcall my office during the day or [facility] transfer ([phone]) center after hours and weekends to arrange admission or transfer to our facility. - Call my nurse Arlyn Segovia RN in the GI office at [phone] for your final pathology results in 7 [...] using the same method. Testing performed by: [facility], [facility], [place]., [address] Blood 09/17/2024 10:3 2 AM CDT 09/17/2024 7:30 PM CDT us Ana RODRIGUES LAB BLOOD ORDERABLES Gail garcia Result [facility] [address] [facility]. Department [place] [employer] [place] [address] * (ABNORMAL) CEA (09/17/2024 10:32 AM CDT) CEA 5.2(H) <=5.0 ng/mL Comment: Interpretive Data Reference Range: Non-Smokers: < or = 3.0 ng/mL Some Smokers may have elevated levels, usually < 5.0 ng/mL The Sree CEA assay procedure was used. Results from different manufacturers or methods may not be comparable. Serial testing should be performed using the same method. Testing performed by: [facility], [facility], [place]., [address] Blood 09/17/2024 10:3 2 AM CDT 09/17/2024 7:30 PM CDT us Ana RODRIGUES LAB BLOOD ORDERABLES Gail garcia Result [facility] [address] [facility]. [place] [address] * CT Chest W and [...] may be degenerative in origin. Procedure Note Lynn, Segun Edward, MD PhD - 09/13/2024 EXAMINATION: 1. Computed [...] PM CDT) Narrative [facility] - 09/06/2024 1:53 PM CDT The images from this study are not interpreted by Radiology. Please refer to the physician's procedure / OR operative note. David Brewer MD IMG FLUOROSCOPY PROCEDURES Final Result [facility] * Surgical pathology (09/06/2024 1:25 PM CDT) Lymph node, needle biopsy 09/06/2024 1:25 PM CDT 09/10/2024 11:26 AM CDT Narrative 09/11/2024 3:14 PM CDT [address] [address] Tele: Roxana Gordon MD - Outside Maintenance Worker Note to Patients: This report may contain [...] PATHOLOGY REPORT Patient Name: SUSANNAH CAMARGO Address: [address] [place] [address] Gender: F : 1950 (Age: 73) Service: Gastro Location: [facility], Hospital #: [id number] Patient Type: [facility] SAME DAY SURGERY Taken: 09/06/2024 Received 09/10/2024 Reported: 09/11/2024 Physician(s): Puma Wagner MD Jason E. Barnett, M.D. DIAGNOSIS: Pancreas, head, fine needle biopsies: - Focal atypical glands (see description) [facility]/11/20[place] 15:14 Examining Pathologist: Alek Flowers M.D. Report [...] filtered and submitted entirely in cassette A1. [facility] MICROSCOPIC DESCRIPTION: Microscopic examination shows multiple fragments of pancreatic parenchyma. There are focal slightly irregular glands with minimal nuclear atypia. An immunostain for p53 shows wild type staining in these glands. There is no definitive malignancy identified. Clinical correlation and follow-up is needed. Clerical Data Follows A; [id number], [address], [address] <CR>, [address] REPORT IMAGES AND/OR SCANNED DOCUMENTS ONLY VIEWABLE IN PDF FORMAT The immunohistochemical test(s) cited in this report, if any, was developed and its performance characteristics determined by [facility] Pathology Department. It has not been cleared or approved by the U.S. Food and Drug Administration. The FDA has determined that such clearance or approval is not necessary. This test is used for clinical purposes. It should not be regarded as investigational or for research. [facility] Laboratory is certified under [...] part or completely in the following laboratories: [facility], [address] [place] [address], [address] [place] [address]. us David Brewer MD LAB PATHOLOGY ORDERABLES Fi nal Result * ERCP (09/06/2024 1:03 PM CDT) Anatomical Region Laterality Modality Other Narrative Procedure Note David Brewer MD - 09/06/2024 1:03 PM CDT ENDOSCOPY LAB Patient Name: Susannah Camargo Procedure Date: 09/06/2024 1:03 PM Admit Type: Outpatient Room: [facility] Date of : 1950 Instrument Name: [...] The patienttolerated the procedure well. Findings: The courtroom deputy or calendar clerk film was normal. The esophagus was successfully [...] following this procedure please call my officeat [phone] ([phone]) to speak to my nurses. After hours and evenings please call [phone] speak to the GI fellow laborer demolition. Please tell themthat Dr. Brewer did your procedure and that your were instructed to have the fellow call me or thephysician covering for me to discuss the management of your condition. If you have an urgent problem, please goto the nearest emergency room and have the ER doctorcall my office during the day or [facility] transfer ([phone]) center after hours and weekends to arrange [...] 09/06/2024 1:02 PM Admit Type: Outpatient Room: [facility] 6 Date of : 1950 Instrument Name: [id number] Gender: Female Note Status: Finalized Procedure: Upper [...] following this procedure please call my officeat [phone] ([phone]) to speak to my nurses. After hours and evenings please call [phone] speak to the GI fellow laborer demolition. Please tell themthat Dr. Brewer did your procedure and that your were instructed to have the fellow call me or thephysician covering for me to discuss the management of your condition. If you have an urgent problem, please goto the nearest emergency room and have the ER doctorcall my office during the day or [facility] transfer ([phone]) center after hours and weekends to arrange admission or transfer to our facility. - Call my nurse Arlyn Segovia RN in the GI office at [phone] for your final results in 7 days. [...] Bilirubin, direct 4.2(H) 0.1 - 0.3 mg/dL [facility] Protein, pl 5.5(L) 6.5 - 8.5 g/dL [facility] Albumin 3.0(L) 3.5 - 5.0 g/dL [facility] Alk phos 1,250(H) 40 - 130 Units/L [facility] ALT 143(H) 7 - 45 Units/L [facility] AST 190(H) 10 - 45 Units/L [facility] Blood 09/06/2024 10:5 0 AM CDT 09/06/2024 10:50 AM CDT Narrative [facility] - 09/06/2024 11:32 AM CDT STAT pre procedure lab same day us Geoffrey Shaver MD LAB BLOOD ORDERABLES Final Result [facility] [address] Department [place] [address] * CT Body Outside Consult (09/05/2024 1:04 [...] images may or may not represent the [place] source data set and thus may contain changes that may lower the accuracy of this second-opinion interpretation. Electronically signed by: Puma Cox 09/05/2024 2:33 PM CDT EXAMINATION: RADIOLOGY CONSULTATION ON OUTSIDE IMAGING STUDY STUDY INITIALLY PERFORMED: 08/28/[address] [facility]. TYPE OF STUDY: Multiple CT images [...] STUDY STUDY INITIALLY PERFORMED: 08/28/[address] [facility]. TYPE OF STUDY: Multiple CT images [...] images may or may not represent the [place] source data set and thus may contain changes that may lower the accuracy of this second-opinion interpretation. Electronically signed by: Mickey Martinez M.D. us David Brewer MD IMG CT PROCEDURES Final Res ult from Last 3 Months Insurance [facility] Address: [place] [address] [employer] MEDICARE ADVANTAGE [facility] Address: [place] [address] [facility] AD[facility]AGE [facility] Address: [facility] [address] [place] [address] Advance Directives For more information, please contact: [phone] * Full Code (Latest Code Status on [...] 1:22 PM 02/28/2023 7:54 PM Care Teams Airplane Cleaner Relationship Specialty Start Date End Date Leonidas Rubio MD [address] [address] PCP - General Family Medicine 09/05/24 Arianna Persaud PA [address] [address] Physician Robotics Mechanic 08/29/24 David Brewer MD [address] [place] [address] Referring Physician Gastroenterology 09/23/24 Kalli Cox MD [address] [place] [address] Consulting Physician Medical Oncology 09/23/24 Daisy Mercado MD [address] [facility] [id number] [place] [address] Consulting Physician General Surgery 09/23/24 Kalli Cox MD [address] [place] [address] Consulting Physician Medical Oncology 10/28/24
--- OUTSIDE RECORDS SUMMARY | 2024-12-06 15:25 | XMS_ITS ---
Author Organization [facility] Address [address] [place] [address] Care Team Providers Care Hull Line Crew Member Name Role Phone Arianna Persaud Unavailable + [phone] Leonidas Rubio MD Primary Care Provider David Brewer MD Unavailable Haven Cox M Unavailable Daisy Mercado MD Unavailable [phone] Haven Cox M Th Unavailable Active Problems Problem Noted Date Diagnosed Date Prolapse of vaginal vault after hysterectomy Feeling of incomplete bladder emptying 5 Lymphedema 10/25/2024 Assessment & Plan (10/25/2024 9:03 [...] Hgb. - pelvis US pending - outpatient health services administrator follow up Assessment & Plan (10/24/2024 1:44 PM CDT): Reports recent vaginal spotting when wiping. Stable Hgb. - pelvis US - outpatient health services administrator follow up Assessment & Plan (10/23/2024 3:54 PM CDT): Reports recent vaginal spotting when wiping. Stable Hgb. - pelvis US - outpatient health services administrator follow up Moderate malnutrition 10/22/2024 Left upper [...] onc c/s - continue home Creon - PT/OT/THERMAL ENGINEER and RD consult for falls and dysphagia [...] onc c/s - continue home Creon - PT/OT/THERMAL ENGINEER and RD consult for falls and dysphagia [...] onc c/s - continue home Creon - PT/OT/THERMAL ENGINEER and RD consult for falls and dysphagia [...] Oncology consult - continue home Creon - PT/OT/THERMAL ENGINEER and RD consult for falls and dysphagia Pancreatic mass 09/04/2024 Elevated liver function tests 09/04/2024 Intractable pain 02/25/2023 Dizziness 11/07/2022 Mixed anxiety and depressive disorder 06/21/2022 Assessment & Plan (06/21/2022 7:25 PM SILVER SERVICE WAITER): Worsening after of her mother in 04/2022. [...] opium Assessment & Plan (06/21/2022 7:16 PM SILVER SERVICE WAITER): Ongoing for approximately 1 week after finishing a course of cefdinir for UTI. No more urinary symptoms or abdominal pain. No acute findings on exam. Will order CDiff test. Advised on Bowel rest: push fluids, bland high fiber diet. Continue immodium if needed. Vulvovaginitis 06/20/2022 Assessment & Plan (06/21/2022 7:17 PM SILVER SERVICE WAITER): S/p cefdinir course for UTI. Denies discharge or genital lesions. exam deferred per pt request. Rxd Diflucan as directed. Use mild non-fragrant soaps/lotions. Recurrent UTI 06/08/2022 Assessment & Plan (06/08/2022 2:35 PM SILVER SERVICE WAITER): Currently on Abx for treatment. Patient to [...] hypotension Assessment & Plan (06/21/2022 7:12 PM SILVER SERVICE WAITER): BP stable in office today on current therapy. Continue current regimen and low salt diet. Stay hydrated. Assessment & Plan (06/08/2022 2:36 PM SILVER SERVICE WAITER): Chronic and mildly elevated. Goal < 130/80. [...] elsewhere Assessment & Plan (06/08/2022 2:35 PM SILVER SERVICE WAITER): Chronic and stable. 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 with stone mill operator Assessment & Plan (12/23/2021 12:10 PM [...] mGy 7 6.7 mGy 0 mGy DLP 2,060 mGycm 2,060 mGycm 0 mGycm
--- OUTSIDE RECORDS SUMMARY | 2024-12-06 15:25 | XMS_ITS | Patient Health Record ---
Author Organization [facility] Address [address] [place] [address] Care Team Providers Care Quality Assurance Auditor Name Role Phone Lucho BROWN, Linette Primary Care Provider Francie Nidhi Aeljandre Unavailable [phone] Maegan POPE, Sussy Unavailable Lissette Colby Unavailable [phone] Johnathon Dick Unavailable [phone] Allergies No Known Allergies Results Component Value Reference Range Notes [facility] Profil e (Not yet reviewed by provider) Interpretation: Performing Lab:[facility] (CLIA#: [id number]), [address] [place] [address], Director - Adelina Jensen Notes/Report: Analyzed at [facility] (CLIA#: [id number]) - [address] [place] [address] - Technical Support Professional: Adelina Ontiveros Certifying Knifeman: Dustin Quinn (Remote [id number]) These tests were developed and their performance characteristics determined by [facility]. They have not been cleared or approved [...] expected with prescribed drug. Tramadol Ur CMP >65848 >=100 ng/mL COMPLIANT: T est result is [...] >=100 ng/mL POSITIVE N-Desmethyl Tram Ur Cfm-mCnc >83079 >=100 ng/mL POSITIVE Creat Ur-mCnc 19.5 20 [...] Ql Cfm <1 >=1 ng/mL NONE DETECTED BARREL SCRAPER Not Otherwise Specified Ur Ql Cfm <1 >=1 ng/mL NONE DETECTED Synthetic Cannabinoids Ur Ql Cfm <1 >=1 ng/m L NONE DETECTED Hallucinogens/Dissociatives Ur Ql Cfm <1 >=1 ng/mL NONE DETECTED Clinical Documentation Manager Benzodiazepines Ur Ql Cfm <1 >=1 ng/mL NONE DETECTED Clinical Documentation Manager Opioids Ur Ql Cfm <1 >=1 ng/mL N ONE DETECTED THC Ur Ql Scn <20 >=20 ng/mL NONE DETECTED [employer] Profil e (Not yet reviewed by provider) Interpretation: Performing Lab:[facility] (CLIA#: [id number]), [address] [place] [address], Director - Adelina Jensen Notes/Report: Analyzed at [facility] (CLIA#: [id number]) - [address] [place] [address] - Technical Support Professional: Adelina Ontiveros Certifying Knifeman: Shalom Nicholsno (Remote [phone]) These tests were developed and their performance characteristics determined by [facility]. They have not been cleared or approved by the [place] Food and Drug Administration. Cital+Escital Ur CMP >36245 >=50 ng/mL COMPLIA NT: Test result is [...] expected with prescribed drug. Tramadol Ur CMP >86303 >=100 ng/mL COMPLIANT: T est result is consistent and expected with prescribed drug. Pregabalin Ur CMP <5 >=5 mcg/mL NON-COMPLI ANT: Test result indicates patient may not be taking drug prescribed. Ethyl Sulfate Ur CMP 06373 >=200 ng/mL PRESENT : Test result is consistent with alcohol exposure within 72 hours of specimen collection. For additional information, please consult the Clinical Team at or email [email or web address] EXPECTED Test result is consistent with [...] >=100 ng/mL POSI TIVE Tramadol Ur Cfm-mCnc >26541 >=100 ng/mL POSITIV E N-Desmethyl Tram Ur Cfm-mCnc >41643 >=100 ng/mL POSITIVE Creat Ur-mCnc 275.9 20 - 370 mg/dL NORMAL Creatinine and pH are performed for specimen validity and not diagnostic purposes. pH Ur 6.04 4.5 - 9.0 NORMAL Creatinine and pH are performed for specimen validity and not diagnostic purposes. Alcohol Metabolites Ur Ql Cfm >=200 >=200 ng/mL POSITIVE Ethyl sulfate Ur Cfm-mCnc 19620 >=200 ng/mL PO SITIVE Busprione Ur Ql Cfm <25 >=25 ng/mL NONE DET ECTED SSRI Profile Ur Ql Cfm >=50 >=50 ng/mL POSIT NILSA Citalopram Ur Cfm-mCnc >01042 >=50 ng/mL POSIT NILSA Norcitalopram Ur-mCnc >73754 >=50 ng/mL POSITI VE SN Reuptake Inhibitors Ur Ql <5 >=5 ng/mL NONE DETECTED Synthetic Stimulants Ur Ql Cfm <1 >=1 ng/mL NONE DETECTED BARREL SCRAPER Not Otherwise Specified Ur Ql Cfm <1 >=1 ng/mL NONE DETECTED Synthetic Cannabinoids Ur Ql Cfm <1 >=1 ng/m L NONE DETECTED Hallucinogens/Dissociatives Ur Ql Cfm <1 >=1 ng/mL NONE DETECTED Clinical Documentation Manager Benzodiazepines Ur Ql Cfm <1 >=1 ng/mL NONE DETECTED Clinical Documentation Manager Opioids Ur Ql Cfm <1 >=1 ng/mL N ONE DETECTED THC Ur Ql Scn <20 >=20 ng/mL NONE DETECTED [employer] Profil e Reviewed date:03/04/2024 07:46:44 AM Interpretation: Performing Lab:[facility] (CLIA#: [id number]), [address] [place] [address], Director - Adelina Jensen Notes/Report: Analyzed at [facility] (CLIA#: [id number]) - [address] [place] [address] - Technical Support Professional: Adelina Ontiveros These tests were developed and their performance characteristics determined by [facility]. They have not been cleared or approved by the US Food and Drug Administration. Certifying Knifeman: Nicolas Carlson (Remote [id number]) Cital+Escital Ur CMP >80218 >=50 ng/mL COMPLIA NT: Test result is [...] form, was detected. Ethyl Sulfate Ur CMP 37675 >=200 ng/mL PRESENT : Test result is consistent with alcohol exposure within 72 hours of specimen collection. For additional information, please consult the Clinical Team at or email [email or web address] EXPECTED Test result is consistent with [...] >=200 ng/mL POSITIVE Ethyl sulfate Ur Cfm-mCnc 11129 >=200 ng/mL PO SITIVE Busprione Ur Ql Cfm <25 >=25 ng/mL NONE DET ECTED Tizanidine Ur Ql Cfm >=25 >=25 ng/mL POSITIV E Tizanidine Ur Cfm-mCnc 157 >=25 ng/mL POSIT NILSA Dehydrotizanidine Ur Cfm-mCnc 17 >=5 ng/mL POSITIVE SSRI Profile Ur Ql Cfm >=50 >=50 ng/mL POSIT NILSA Norcitalopram Ur-mCnc >24697 >=50 ng/mL POSITI VE Synthetic Stimulants Ur Ql Cfm <1 >=1 ng/mL NONE DETECTED BARREL SCRAPER Not Otherwise Specified Ur Ql Cfm <1 >=1 ng/mL NONE DETECTED Synthetic Cannabinoids Ur Ql Cfm <1 >=1 ng/m L NONE DETECTED Hallucinogens/Dissociatives Ur Ql Cfm <1 >=1 ng/mL NONE DETECTED Clinical Documentation Manager Benzodiazepines Ur Ql Cfm <1 >=1 ng/mL NONE DETECTED Clinical Documentation Manager Opioids Ur Ql Cfm <1 >=1 ng/mL [...] W/U Status Risk Notes Problem Cervical spondylosis (511024118) Cervical spondylosis (M47.812) Active confirmed Problem Hypercholesterolemia (82519349) Hypercholesterolemia (E78.00) Active confirmed Problem Long-term current us e of drug therapy (602250078) FDC use of drug (Z79.899) Active confirmed Problem Neck pain (30305730) Cervical sp ine pain (M54.2) Active confirmed Problem Hypertension (64983859) Hypertension (I10) 2009 Active confirmed Problem Low back pain (760746802) Low back pain (M54.50) Active confirmed Problem Atrial fibrillation (95673860) Atrial fibrillation (I48.91) Active confirmed Problem Long-term current us e of anticoagulant (719485901) Anticoagulated (Z79.01) Active confirmed Vital Signs Heart Rate 61 /min 08/20/2024 Blood pressure diastolic 89 mm Hg 08/20/2024 Height-cm 160.02 cm 09/26/2024 Weight-kg 63.05 kg 09/26/2024 Height 5ft 3in in 09/26/2024 Blood pressure systolic 142 mm Hg 08/20/2024 Weight 139 lbs 09/26/2024 BMI 24.62 kg/m2 09/26/2024 Encounters Encounter Location Date Provider Diagnosis [facility] [address] [place] [address] [address] [place] [address] 12/26/2023 Lissette Colby Cervical spine pain M54.2 ; DDD (degenerative disc disease), lumbar M51.36 ; Cervical spondylosis M47.812 and FDC use of drug Z79.899 [facility] [address] [place] [address] [address] [place] [address] 01/11/2024 Lissette Colby Cervical spine pain M54.2 ; Cervical spondylosis M47.812 ; DDD (degenerative disc disease), lumbar M51.36 ; Low back pain M54.50 ; Left knee pain M25.562 and assistant terminal manager use of drug Z79.899 [facility] [address] [place] [address] [address] [place] [address] 02/26/2024 Lissette Colby Cervical spondylosis M47.812 ; Cervical spine pain M54.2 ; Low back pain M54.50 ; On mcc drug therapy Z79.899 and Screening for substance abuse Z13.89 [facility] [address] [place] [address] [address] [place] [address] 03/25/2024 Sussy Samzaria Cervical spondylosis M47.812 ; Cervical spine pain M54.2 ; Low back pain M54.50 and FDC use of drug Z79.899 [facility] [address] [place] [address] [address] [place] [address] 04/25/2024 Lissette Colby Cervical spondylosis M47.812 ; Cervical spine pain M54.2 ; Low back pain M54.50 and assistant terminal manager use of drug Z79.899 [facility] [address] [place] [address] [address] [place] [address] 05/09/2024 Lissette Colby Cervical spine pain M54.2 ; Cervical spondylosis M47.812 and On mcc drug therapy Z79.899 [facility] [address] [place] [address] [address] [place] [address] 06/18/2024 Lissette Colby Cervical spondylosis M47.812 ; Cervical spine pain M54.2 and assistant terminal manager use of drug Z79.899 [facility] [address] [place] [address] [address] [place] [address] 07/16/2024 Lissette Colby Cervical spine pain M54.2 ; Low back pain M54.50 ; Cervical spondylosis M47.812 and assistant terminal manager use of drug Z79.899 [facility] [address] [place] [address] [address] [place] [address] 08/20/2024 Lissette Colby Cervical spondylosis M47.812 ; Cervical spine pain M54.2 ; Low back pain M54.50 and FDC use of drug Z79.899 [facility] [address] [place] [address] 09/12/2024 Lissette Colby Cervical spine pain M54.2 ; Cervical spondylosis M47.812 ; Hypertension I10 ; Pancreatic neoplasm D49.0 and assistant terminal manager use of drug Z79.899 [facility] [address] [place] [address] 09/26/2024 Johnathon Dick Pancreatic carcinoma C25.9 ; Cervical spondylosis M47.812 ; Cervical spine pain M54.2 ; Low back pain M54.50 ; FDC use of drug Z79.899 ; Hypertension I10 ; FDC use of opioid Z79.891 ; Hypercholesterolemia E78.00 ; Anticoagulated Z79.01 and Atrial fibrillation I48.91 [facility] [address] [place] [address] 12/26/2023 Nidhi Dick [facility] [address] [place] [address] 01/11/2024 Nidhi Dick [facility] [address] [place] [address] 01/25/2024 Johnathon Dick [facility] [address] [place] [address] 02/26/2024 Nidhi Dick [facility] [address] [place] [address] 03/25/2024 Nidhi Solnberg [facility] [address] [place] [address] 04/25/2024 Nidhi Solnberg [facility] [address] [place] [address] 05/09/2024 Nidhi Solnberg [facility] [address] [place] [address] 06/18/2024 Nidhi Dick [facility] [address] [place] [address] 07/16/2024 Nidhi Solnberg [facility] [address] [place] [address] 08/20/2024 Nidhi Mayelin [facility] [address] [place] [address] 09/12/2024 Johnathon Mayelin [facility] [address] [place] [address] 09/19/2024 Nidhi Mayelin [facility] [address] [place] [address] 09/26/2024 Johnathon Mayelin [facility] [address] [place] [address] 09/27/2024 Johnathon Mayelin [facility] [address] [place] [address] 10/03/2024 Johnathon Dick Assessments Encounter Date Diagnosis (ICD Code) [...] be filled Refill of tizanidine sent to [facility] Continue home stretching and at home exercise [...] Cervical spine pain (ICD-10 - M54.2) 06/18/2024 FDC use of kike g (ICD-10 - Z79.899) 05/09/2024 On mcc drug therapy (ICD-10 - Z79.899) 04/25/2024 Cervical spine pain (ICD-10 - M54.2) 03/25/2024 Low back pain (ICD-1 0 - M54.50) 02/26/2024 Low back pain (ICD-1 0 - M54.50) 01/11/2024 DDD (degenerative di sc disease), lumbar (ICD-10 - M51.36) 12/26/2023 Cervical spondylosis (ICD-10 - M47.812) 02/26/2024 On mcc drug therapy (ICD-10 - Z79.899) 12/26/2023 assistant terminal manager use of kike g (ICD-10 - Z79.899) 03/25/2024 FDC use of kike g (ICD-10 - Z79.899) 04/25/2024 Low back pain (ICD-1 0 - M54.50) 08/20/2024 Low back pain (ICD-1 0 - M54.50) 07/16/2024 FDC use of kike g (ICD-10 - Z79.899) 09/12/2024 Pancreatic neoplasm (ICD-10 - D49.0) 01/11/2024 Low back pain (ICD-1 0 - M54.50) 09/26/2024 assistant terminal manager use of kike g (ICD-10 - Z79.899) 09/26/2024 Hypertension (ICD-10 - I10) 09/12/2024 FDC use of kike g (ICD-10 - Z79.899) 04/25/2024 assistant terminal manager use of kike g (ICD-10 - Z79.899) 08/20/2024 assistant terminal manager use of kike g (ICD-10 - Z79.899) 01/11/2024 Left knee pain (ICD- 10 - M25.562) 02/26/2024 Screening for substa nce abuse (ICD-10 - Z13.89) 01/11/2024 FDC use of kike g (ICD-10 - Z79.899) 09/26/2024 assistant terminal manager use of opi oid (ICD-10 - Z79.891) [...] 06/18/2024 Synthetic Stimulants 02/26/2024 Synthetic Stimulants 09/26/2024 Clinical Documentation Manager Benzodiazepines 06/18/2024 Clinical Documentation Manager Benzodiazepines 09/26/2024 Clinical Documentation Manager Benzodiazepines 02/26/2024 Synthetic Cannabinoids 02/26/2024 Synthetic Cannabinoids 09/26/2024 Synthetic Cannabinoids 06/18/2024 Clinical Documentation Manager Opioids 09/26/2024 Clinical Documentation Manager Opioids 02/26/2024 Clinical Documentation Manager Opioids 06/18/2024 Hallucinogens/Dissociatives 02/26/2024 Hallucinogens/Dissociatives 06/18/2024 Hallucinogens/Dissociatives 09/26/2024 BARREL SCRAPER Other 09/26/2024 BARREL SCRAPER Other 06/18/2024 BARREL SCRAPER Other 02/26/2024 Marijuana - Urine 02/26/2024 Marijuana [...] Insured Coverage Start Date Coverage End Date [facility] [address] [address] [place] [address] [id number] Susannah Camargo Self - patient is the insured Medical (General) History Medical History History ICD Code hyperlipidemia hypertension Atrial fibrillation Surgical History Surgery Date(Month/Year) B TKR B THR oophorectomy gastric sleeve 03/2020 Hospitalization History Reason Date(Month/Year) no hospitalizations since prior visit
--- OUTSIDE RECORDS SUMMARY | 2024-12-06 15:25 | XMS_ITS | Clinical Summary ---
Author Organization [facility] [employer] Address [address] [place] [address] Care Team Providers Care Stuffer Name Role Phone Aury Joseph RN Unavailable [phone] Dar Stinson MD Unavailable [phone] Linette Yepez MD Primary Care Provider + Source Comments [facility],non-owned Affiliates and Associated Physician Practices is amultiple site organization consisting of ambulatory clinics and hospital sitesin [place], [place], [place] and [place]. This disclosure is being madepursuant to the Care Everywhere program and may not contain all information available regarding this patient. Last updated 18.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 [employer] Not on file Not on file Not on file Last Filed Vital Signs Vital Sign Reading Time Taken Comments Blood Pressure 106/74 06/16/2021 10:41 AM BI DATA ARCHITECT Pulse 60 06/16/2021 10:41 AM BI DATA ARCHITECT Temperature 36.2 C (97.2 F) 06/16/2021 10:41 AM BI DATA ARCHITECT Respiratory Rate 20 06/16/2021 10:41 AM BI DATA ARCHITECT Oxygen Saturation 97% 06/16/2021 10:41 AM BI DATA ARCHITECT Inhaled Oxygen Concentration - - Weight 72.6 kg (160 lb) 06/16/2021 10:41 AM BI DATA ARCHITECT Height 160 cm (5' 3) 06/16/2021 10:41 AM BI DATA ARCHITECT Body Mass Index 28.34 06/16/2021 10:41 AM BI DATA ARCHITECT Plan of Treatment Health Maintenance Due Date [...] < 140/90 Blood Pressure 106/74(2021 10:41 AM BI DATA ARCHITECT) Nae Montanez MA Medical Devices Implanted Type Area Rate Supervisor Device Identifier Shelf Expiration Date Model / Serial / Lot Shell Coat 3hole 54mm Implanted:Qty: 1 on 11/21/2013 by Francis Cortes MD at [facility] [place] Right: Hip [employer] 08/16/2023 [id number] / / [id number] Linr Acetab Refl Xlpe 0deg 36mm X 54mm Implanted:Qty: 1 on 11/21/2013 by Francis Cortes MD at [facility] [place] Right: Hip [employer] 10/15/2023 [id number] / / [id number] Spherical Head Screw 6.5mm Cancellous Implanted:Qty: 1 on 11/21/2013 by Francis Cortes MD at [facility] [place] Right: Hip [employer] 05/17/2023 [id number] / / [id number] Standard Offset Fixed Neck Stikitite Coated Stem Feoral Coponent Implanted:Qty: 1 on 11/21/2013 by Francis Cortes MD at [facility] [place] Right: Hip [employer] 06/14/2023 [id number] / / [id number] 03/30 Taper Femoral Head Implanted:Qty: 1 on 11/21/2013 by Francis Cortes MD at [facility] [place] Right: Hip [employer] 12/14/2022 [id number] / / [id number] Bill Only H1 Uncem Metal Or Ceramic Implanted:Qty: 1 on 11/21/2013 by Francis Cortes MD at [facility] [place] [employer] H1 BILL ONLY [...] 1:06 PM CDT Narrative Resulting Agency Comment [facility] [address] [facility] [phone] Feliciano Oliver MD LAB - CHEMISTRY ORDERABLES Fin al Result [facility] ACCOUNT BILL [address] [place] [address] * MAMMO SCREENING DIGITAL IMAGE BILAT (09/09/2014 5:05 PM CDT) Anatomical Region Laterality Modality Breast Bilateral Mammography 09/10/2014 5:08 PM CDT Impressions 09/10/2014 5:09 PM CDT No mammographic evidence of malignancy in either breast. ASSESSMENT: BIRADS Category 1: Negative. RECOMMENDATION: Bilateral screening mammogram in one year. Thank you for allowing us to participate in the care of your patient. [facility] [place] utilizes [employer] as a reminder system to notify patients of their next recommended mammogram. Narrative 09/10/2014 5:09 PM CDT EXAMINATION: Digital screening mammogram on 09/09/2014. Computer assisted detection was utilized. PRIOR: Mammogram from [facility] in 09/28/2006. FINDINGS: Breast parenchymal density: [...] offers HCV Ab w/Reflex to Verification test #[id number]. Blood specimen (specimen) BLOOD SPECIMEN / Unknown 08/09/2013 8:53 AM CDT 08/09/2013 12:57 PM CDT Narrative Resulting Agency Comment [facility] [address] [phone] Feliciano Oliver MD LAB - CHEMISTRY ORDERABLES Fin al Result [facility] ACCOUNT BILL [address] [place] [address] from Last 3 Months or Most Recently Relevant to Health Maintenance Insurance MANAGED MEDICARE ADV MANAGED MEDICARE ADV Advance Directives * Full Code (Latest Code Status on File) Date Activated Date Inactivated Comments 11/21/2013 12:38 PM 11/24/2013 6:31 PM * Full Code Date Activated Date Inactivated Comments 02/18/2009 10:26 AM 02/22/2009 1:32 AM Care Teams Stuffer Relationship Specialty Start Date End Date Linette Yepez MD [address] [place] [address] PCP - General Family Medicine 01/09/20 Aury Joseph, RN Overlock Sleeve Setter 11/22/13 [place] [address] [address] Orthopedic Surgery 12/27/13
--- NOTE | 2024-12-06 15:27 | ECG_ITS ---
Test Date: 2024-12-06 15:48:54 Measurements Intervals [place] Rate: 73 P: 32 DC: 219 QRS: 58 QRSD: 95 T: -7 QT: 399 QTc: 441 Interpretive Statements SINUS RHYTHM WITH FIRST DEGREE AV BLOCK LOW QRS VOLTAGE- DIFFUSE LEADS CANNOT R/O SEPTAL INFARCT, AGE INDETERMINATE BORDERLINE ST-T WAVE ABNORMALITY- ANTEROLAT/INF LEADS BASELINE WANDER- V4 ABNORMAL ECG Compared to ECG 10/19/2024 23:21:58 First degree AV block now present Low QRS voltage now present Electronically Signed On 12-06-2024 17:27:32 CDT by Raji Pham D.O.
[2024-12-06 16:01] LABS: Hematocrit 26.5 % (37.0-47.0); Hemoglobin 8.1 g/dL (12.0-15.0); Immature Granulocyte Percent A 0.2 % (0-0.5); Lymphocytes Absolute Auto 0.99 K/mm3 (0.9-3.2); Mean Corpuscular HGB Conc 30.6 g/dl (32-36); Mean Corpuscular Hemoglobin 29.1 pg (26-34); Mean Corpuscular Volume 95.3 fl (80-100); Nucleated Red Blood Cells Absolute Auto 0.000 K/mm3 (0.0-0.012); Nucleated Red Blood Cells Perc 0.0 % (0.0-0.2); Platelet Count Result 220 k/mm3 (150-375); Red Blood Count 2.78 M/mm3 (4.2-5.4); White Blood Count 4.5 K/mm3 (4.5-10.0)
--- NOTE | 2024-12-06 16:06 | ED_ITS ---
HPI - SOB/Dyspnea General Chief Complaint: Shortness of Breath/Dyspnea <Kacie Delgado PA-C - Last Filed: 12/09/24 17:17> Stated Complaint: dyspnea <Kacie Delgado PA-C - Last Filed: 12/09/24 17:17> Time Seen by Provider: 12/06/24 15:47 <Kacie Delgado PA-C - Last Filed: 12/09/24 17:17> Source: patient and family <Kacie Delgado PA-C - Last Filed: 12/09/24 17:17> Mode of arrival: ambulatory <NIKO Vieyra Last Filed: 12/09/24 17:17> Limitations: no limitations <NIKO Vieyra Last Filed: 12/09/24 17:17> History of Present Illness HPI Narrative: This is a 73 year old female that presents to the ER for shortness of breath. Reports she has history of pancreatic cancer. Has stopped treatments for this. Reports she has had worsening swelling over the last several weeks. Reports she was started on Lasix without relief. She started to get short of breah which prompted her to be seen today. Reports a cough, wheezing. Denies fevers. <Kacie Delgado PA-C - Last Filed: 12/09/24 17:17> Related Data Home Medications: Home Medications ?Medication ?Instructions ?Recorded ?Confirmed ?Last Taken ?Type nifedipine 20 mg capsule 20 mg PO Q6H 12/06/23 Unknown History propafenone 225 mg tablet 225 mg PO Q12H 09/05/2411/1612/06/24 History momwdp-[id number]-[id number] 2 cap PO .COMPLEX 10/02/24 0 12/06/24 12/06/24 History 40,000-126,000-168,000 unit capsule, delay rel (Zenpep) morphine 15 mg immediate release 15 mg PO Q8H PRN pain 10/02/24 12/07/24 12/06/24 History tablet Held on 12/07/24. Instructions: Patient no longer taking rivaroxaban 20 mg tablet (Xarelto) 20 mg PO DAILY 09/1512/06/24 12/05/24 History chlorhexidine gluconate 0.12 % 1 applic 12/06/24 Unkn own History mouthwash diphenoxylate-atropine 2.5 1 tablet PO Q4-6H PRN diarr hea 12/06/24 12/07/24 12/06/24 History mg-0.025 mg tablet estradiol 0.01% (0.1 mg/gram) 0.25 appful vaginal WEEK LY 12/06/24 12/06/24 12/04/24 History vaginal cream furosemide 20 mg tablet 20 mg PO DAILY 12/06/2411/1612/06/24 History loperamide 2 mg capsule 2 mg PO Q2-4H PRN loose stoo l 12/06/24 12/06/24 12/06/24 History (Anti-Diarrheal (loperamide)) morphine 30 mg immediate release 30 mg PO Q4H PRN pain 12/06/24 12/07/24 12/06/24 History tablet morphine 30 mg tablet,extended 30 mg PO Q8H 12/06/24 0 12/06/24 12/06/24 History release ondansetron 8 mg disintegrating 8 mg PO Q8H PRN nausea and vomiting 12/06/24 12/06/24 12/06/24 History tablet potassium chloride 20 mEq 20 meq PO ONCE 12/06/2411/1612/06/24 History tablet,extended release prochlorperazine maleate 10 mg 10 mg PO Q6H PRN nausea and 12/06/24 12/06/24 12/06/24 History tablet (Compazine) vomiting hyoscyamine sulfate 0.125 mg 0.125 mg PO QID PRN dyspe psia 12/07/24 12/07/24 Unknown History disintegrating tablet lidocaine HCl 2 % mucosal jelly 1 applic topical DAILY PRN pain 12/07/24 12/07/24 Unknown History <Kacie Delgado PA-C - Last Filed: 12/09/24 17:17> Allergies/Adverse Reactions: Allergies Allergy/AdvReac Type Severity Reaction Status Date / Time hydrocodone Allergy Itching Verified 12/06/24 21:39 oxycodone Allergy Itching Verified 12/06/24 21:39 amoxicillin AdvReac Vomiting Verified 12/06/24 21:39 <Kacie Delgado PA-C - Last Filed: 12/09/24 17:17> Review of Systems 2 Review of Systems: All systems reviewed & are unremarkable except as noted in HPI and below <Kacie Delgado PA-C - Last Filed: 12/09/24 17:17> [facility] Past Medical History Medical History: Medical History Pancreatic adenocarcinoma Ulcerative colitis Pancreatic mass Lactose intolerance Chronic anemia Postmenopausal Major depressive disorder, recurrent, moderate Weight gain Primary generalized (osteo)arthritis Polyosteoarthritis, unspecified Panic attacks NOMI on CPAP Morbid (severe) obesity due to excess calories Mixed hyperlipidemia Chronic fatigue Essential (primary) hypertension Chronic pain disorder Chronic atrial fibrillation Arthritis, shoulder region Arthralgia Allergic contact dermatitis due to plants, except food Breast cancer screening Cough Dizziness Chapped lips Screening for breast cancer Generalized anxiety disorder Major depressive disorder, recurrent, moderate BMI 40.0-44.9, adult Obesity NOMI (obstructive sleep apnea) Benign essential HTN Arthritis <Kacie Delgado PA-C - Last Filed: 12/09/24 17:17> Surgical History Surgical History: Surgical History History of sleeve gastrectomy History of radiofrequency ablation procedure for cardiac arrhythmia Hx of total knee arthroplasty R H/O total hip arthroplasty bilateral <Kacie Delgado PA-C - Last Filed: 12/09/24 17:17> Family History Family History: Family History Father Family history of premature coronary heart disease Hypertension <Kacie Delgado PA-C - Last Filed: 12/09/24 17:17> Social History Social History: Social History Social History: Smoking status: Never smoker Second hand tobacco smoke exposure: No Alcohol intake: former Substance use: never Substance use type: does not use Lack of Transportation: No Lack of Food: Never True Current Housing: I Have Housing Concerned About Future Housing: No Difficulty Paying Gas/Electric Bills: No Difficulty Paying for Meds: No Currently Unemployed: No Education: Decline to Answer Difficulty w/ Childcare or Family Care: No Living arrangements: alone Occupation/Education: retired Gender identity (if verbalized by the patient): Female Sexual Orientation (if Verbalized by the Patient): Straight or Heterosexual <Kacie Delgado PA-C - Last Filed: 12/09/24 17:17> Exam 2 Narrative: GENERAL: Chronically ill-appearing, well-nourished, and in no acute distress. HEAD: Normocephalic, atraumatic. EYES: EOMI. ENT: Nares clear, no rhinorrhea or epistaxis. Mucous membranes moist. Oropharynx without tonsillar hypertrophy exudate or other lesions. CHEST: No respiratory distress. Lung sounds diminished on the right. Scattered wheezing. No rhonchi HEART: Regular rate and rhythm. No murmur heard. Normal peripheral pulses. ABDOMEN: Distended, normal active bowel sounds. EXTREMITIES: Normal range of motion. 2+ pitting edema to the bilateral lower extremities up to the mid thigh SKIN: Warm, dry, no rash. NEURO: No focal deficits. Alert and oriented x3. PSYCH: Normal mood and affect <Kacie Delgado PA-C - Last Filed: 12/09/24 17:17> Course BELL HOLE DIGGER/PA Physician Supervision This visit was performed by both a physician and an APC. For this patient encounter, I reviewed the BELL HOLE DIGGER or PA documentation, treatment plan, and medical decision making and had [id number] time with this patient. I performed all aspects of the MDM as documented. <Criselda Waters MD - Last Filed: 12/07/24 03:32> Consultations Consultation #1: Spoke with Dr. Pulliam, [facility], about patient and workup who accepts patient as transfer <Kacie Delgado PA-C - Last Filed: 12/09/24 17:17> Date: 12/06/24 <NIKO Vieyra Last Filed: 12/09/24 17:17> Vital Signs Vital signs: Vital Signs Pulse Rate 74 12/06/24 15:33 Respiratory Rate 20 12/06/24 15:33 Blood Pressure 120/83 12/06/24 15:33 Pulse Oximetry 94 12/06/24 15:33 Oxygen Delivery Room Air 12/06/24 15:33 Temperature 98.1 F 12/06/24 18:43 Pulse Rate 66 12/07/24 22:30 Respiratory Rate 20 12/07/24 22:30 Blood Pressure 143/92 H 12/07/24 22:30 Pulse Oximetry 98 12/07/24 22:30 Oxygen Delivery Room Air 12/07/24 13:53 Oxygen Flow Rate 2 12/07/24 13:44 <Kacie Delgado PA-C - Last Filed: 12/09/24 17:17> Vital Signs Pulse Rate 74 12/06/24 15:33 Respiratory Rate 20 12/06/24 15:33 Blood Pressure 120/83 12/06/24 15:33 Pulse Oximetry 94 12/06/24 15:33 Oxygen Delivery Room Air 12/06/24 15:33 Temperature 98.1 F 12/06/24 18:43 Pulse Rate 66 12/07/24 22:30 Respiratory Rate 20 12/07/24 22:30 Blood Pressure 143/92 H 12/07/24 22:30 Pulse Oximetry 98 12/07/24 22:30 Oxygen Delivery Room Air 12/07/24 13:53 Oxygen Flow Rate 2 12/07/24 13:44 <Criselda Waters MD - Last Filed: 12/07/24 03:32> MDM - SOB/Dyspnea MDM Narrative Medical decision making narrative: Chest the emergency department for worsening edema and hand. Reports history of metastatic pancreatic cancer. She is no longer receiving treatment for this. Over the last several weeks she has had worsening diffuse edema. Since yesterday she has been having difficulty breathing. Oxygen saturation low 90s on room air, patient was placed on 2 L nasal cannula for comfort. Given nebulizer treatment. Cbc without leukocytosis. Hemoglobin appears stable. Metabolic panel without concerning findings. Urine without evidence of infection. Influenza, RSV and COVID screens are negative. Chest x-ray showing opacity of the right hemithorax. Recommend CT scan. CT chest/abdomen/pelvis obtained for further evaluation. Shows pneumobilia. Moderate to large right pleural effusion. Ill-defined pancreatic head mass, suspicious for known malignancy. Ultrasound venous Doppler without evidence of DVT. Patient wishes to have continued care for this at site [facility] where she has been receiving her treatment. Spoke with Dr. Pulliam, [facility], about patient and workup who accepts patient as transfer <Kacie Delgado PA-C - Last Filed: 12/09/24 17:17> Differential Diagnosis Differential diagnosis: Likely congestive heart failure, community acquired pneumonia and other (pleural effusion, ascites, DVT, CHF) <Kacie Delgado PA-C - Last Filed: 12/09/24 17:17> Medical Records Attestation: I reviewed the patient's medical records. <Kacie Delgado PA-C - Last Filed: 12/09/24 17:17> Medical records narrative: I was able to review patient's recent CT scan from about 10 days ago. Most of these findings on CT scan are stable, other than new right pleural effusion <Kacie Delgado PA-C - Last Filed: 12/09/24 17:17> Lab Data Attestation: I reviewed the patient's lab results. <Kacie Delgado PA-C - Last Filed: 12/09/24 17:17> Result diagrams: 12/06/24 15:52 12/06/24 15:52 <Kacie Delgado PA-C - Last Filed: 12/09/24 17:17> Labs: Lab Results 12/06/24 12/06/24 12/07/24 Range/Units 15:52 16:06 14:10 WBC 4.5 (4.5-10.0) K/mm3 RBC 2.78 L (4.2-5.4) M/mm3 Hgb 8.1 L (12.0-15.0) g/dL Hct 26.5 L (37.0-47.0) % MCV 95.3 (80-100) fl MCH 29.1 (26-34) pg MCHC 30.6 L (32-36) g/dl RDW 15.6 H (11.5-14.5) % Plt Count 220 (150-375) k/mm3 MPV 9.6 (7.4-10.4) fl Immature Gran % (Auto) 0.2 (0-0.5) % Neut % (Auto) 62.6 (45.5-73.1) % Lymph % (Auto) 21.9 (18.3-44.2) % [place] % (Auto) 12.4 H (2.6-8.5) % Eos % (Auto) 2.2 (0-4.4) % Baso % (Auto) 0.7 (0.2-1.2) % Lymph # (Auto) 0.99 (0.9-3.2) K/mm3 [place] # (Auto) 0.6 (0.1-0.6) K/mm3 Eos # (Auto) 0.1 (0-0.3) K/mm3 Baso # (Auto) 0.0 (0.0-0.1) K/mm3 Abs Immat Gran (auto) 0.01 (0.00-0.031) K/mm3 Absolute Neuts (auto) 2.8 (1.3-6.7) K/mm3 Absolute Nucleated RBC 0.000 (0.0-0.012) K/mm3 Nucleated RBC % 0.0 (0.0-0.2) % PT 15.9 H (11.1-14.7) Seconds INR 1.3 APTT 38.8 H (22.3-36.8) Seconds Sodium 133 L (137-145) mmol/L Potassium 4.1 (3.4-5.0) mmol/L Chloride 101 (98-107) mmol/L Carbon Dioxide 30 (22-30) mmol/L Anion Gap 2 L (4-12) mmol/L BUN 12 D (7-17) mg/dL Creatinine 0.66 L (0.7-1.0) mg/dL Estim Creat Clear Calc 65 ml/min Estimated GFR > 60 (59 - ) Glucose 95 (65-110) mg/dL Calcium 9.1 (8.4-10.2) mg/dL Total Bilirubin 0.4 (0.2-1.3) mg/dL AST 26 (14-36) U/L ALT 14 (6-35) U/L Alkaline Phosphatase 78 (38-126) U/L NT-Pro-B Natriuret Pep 1150 H (19.9-100) pg/mL Total Protein 5.7 L (6.3-8.2) g/dL Albumin 3.0 L (3.5-5.1) g/dL Urine Color Yellow (Yellow) Urine Appearance Turbid H (Clear) Urine pH 5.0 (5.0-9.0) Ur Specific [place] > 1.045 H (1.001-1.035) Urine Protein Trace (Negative) mg/dL Urine Glucose (UA) Negative (Negative) mg/dL Urine Ketones Negative (Negative) mg/dL Ur Blood (Man) Negative (Negative) Urine Nitrate Negative (Negative) Urine Bilirubin Negative (Negative) Urine Urobilinogen 0.2 (<2.0) mg/dL Leukocyte Esterase Rfl Negative (Negative) JOSE ALBERTO/UL Urine RBC 0-2 (0-2) /hpf Urine WBC 0-5 (0-3) /hpf Ur Squamous Epith Cells Moderate (Few) /hpf Urine Bacteria 1+ H /hpf Urine Casts 3-5 Influenza A (RT-PCR) Negative (Negative) Influenza B (RT-PCR) Negative (Negative) RSV (RT-PCR) Negative (Negative) SARS-CoV-2 RNA (RT-PCR) Negative (Negative) <Kacie Delgado PA-C - Last Filed: 12/09/24 17:17> Lab Results 12/06/24 12/06/24 12/07/24 Range/Units 15:52 16:06 14:10 WBC 4.5 (4.5-10.0) K/mm3 RBC 2.78 L (4.2-5.4) M/mm3 Hgb 8.1 L (12.0-15.0) g/dL Hct 26.5 L (37.0-47.0) % MCV 95.3 (80-100) fl MCH 29.1 (26-34) pg MCHC 30.6 L (32-36) g/dl RDW 15.6 H (11.5-14.5) % Plt Count 220 (150-375) k/mm3 MPV 9.6 (7.4-10.4) fl Immature Gran % (Auto) 0.2 (0-0.5) % Neut % (Auto) 62.6 (45.5-73.1) % Lymph % (Auto) 21.9 (18.3-44.2) % [place] % (Auto) 12.4 H (2.6-8.5) % Eos % (Auto) 2.2 (0-4.4) % Baso % (Auto) 0.7 (0.2-1.2) % Lymph # (Auto) 0.99 (0.9-3.2) K/mm3 [place] # (Auto) 0.6 (0.1-0.6) K/mm3 Eos # (Auto) 0.1 (0-0.3) K/mm3 Baso # (Auto) 0.0 (0.0-0.1) K/mm3 Abs Immat Gran (auto) 0.01 (0.00-0.031) K/mm3 Absolute Neuts (auto) 2.8 (1.3-6.7) K/mm3 Absolute Nucleated RBC 0.000 (0.0-0.012) K/mm3 Nucleated RBC % 0.0 (0.0-0.2) % PT 15.9 H (11.1-14.7) Seconds INR 1.3 APTT 38.8 H (22.3-36.8) Seconds Sodium 133 L (137-145) mmol/L Potassium 4.1 (3.4-5.0) mmol/L Chloride 101 (98-107) mmol/L Carbon Dioxide 30 (22-30) mmol/L Anion Gap 2 L (4-12) mmol/L BUN 12 D (7-17) mg/dL Creatinine 0.66 L (0.7-1.0) mg/dL Estim Creat Clear Calc 65 ml/min Estimated GFR > 60 (59 - ) Glucose 95 (65-110) mg/dL Calcium 9.1 (8.4-10.2) mg/dL Total Bilirubin 0.4 (0.2-1.3) mg/dL AST 26 (14-36) U/L ALT 14 (6-35) U/L Alkaline Phosphatase 78 (38-126) U/L NT-Pro-B Natriuret Pep 1150 H (19.9-100) pg/mL Total Protein 5.7 L (6.3-8.2) g/dL Albumin 3.0 L (3.5-5.1) g/dL Urine Color Yellow (Yellow) Urine Appearance Turbid H (Clear) Urine pH 5.0 (5.0-9.0) Ur Specific [place] > 1.045 H (1.001-1.035) Urine Protein Trace (Negative) mg/dL Urine Glucose (UA) Negative (Negative) mg/dL Urine Ketones Negative (Negative) mg/dL Ur Blood (Man) Negative (Negative) Urine Nitrate Negative (Negative) Urine Bilirubin Negative (Negative) Urine Urobilinogen 0.2 (<2.0) mg/dL Leukocyte Esterase Rfl Negative (Negative) JOSE ALBERTO/UL Urine RBC 0-2 (0-2) /hpf Urine WBC 0-5 (0-3) /hpf Ur Squamous Epith Cells Moderate (Few) /hpf Urine Bacteria 1+ H /hpf Urine Casts 3-5 Influenza A (RT-PCR) Negative (Negative) Influenza B (RT-PCR) Negative (Negative) RSV (RT-PCR) Negative (Negative) SARS-CoV-2 RNA (RT-PCR) Negative (Negative) <Criselda Waters MD - Last Filed: 12/07/24 03:32> Imaging Data Radiologist's impression: ITS Impressions Chest X-Ray 12/06/24 16:28 IMPRESSION: 1.New confluent opacity in the lower half of the right hemithorax. Differential includes a combination of pleural fluid with adjacent atelectasis and/or consolidation. An underlying mass is possible. Recommend follow-up to resolution. A chest CT is recommended. 2.Small opacities in the left mid and lower lung. Differential includes atelectasis or infiltrates. 3.There is a 1.1 cm oval nodular density projecting over the right upper lung. A pulmonary nodule is possible. Differential includes artifact from overlapping structures. A chest CT is recommended. 4.Right hilum is prominent. Attention on follow up chest CT imaging. Chest/Abdomen/Pelvis CT 12/06/24 17:56 IMPRESSION: 1. Abnormal gas just above the gallbladder fossa with irregular linear configuration which may represent biliary gas or less likely free air. Cannot exclude bowel perforation. Correlate for recent intervention. There is a biliary stent present. 2: Moderate-large right pleural effusion with underlying compressive atelectasis. 3: Ascites. 4: Ill-defined pancreatic head mass, suspicious for known malignancy. Venous Doppler Study 12/06/24 18:23 IMPRESSION: 1: No lower extremity deep venous thrombosis. <Kacie Delgado PA-C - Last Filed: 12/09/24 17:17> ECG Data EKG #1: ECG completion date: 12/06/24 <Kacie Delgado PA-C - Last Filed: 12/09/24 17:17> EKG Interpretation: normal rate, sinus rhythm, no ST changes and normal QT <Kacie Delgado PA-C - Last Filed: 12/09/24 17:17> Critical Care Time Critical Care Time Critical Care Time: Yes <NIKO Vieyra Last Filed: 12/09/24 17:17> Total Critical Care Time: 35 <NIKO Vieyra Last Filed: 12/09/24 17:17> Discharge Plan Discharge Clinical Impression: Pleural effusion, Primary pancreatic cancer with metastasis to other site <NIKO Vieyra Last Filed: 12/09/24 17:17> Patient Disposition: Acute Care Hospital <NIKO Vieyra Last Filed: 12/09/24 17:17> Condition: Guarded Prognosis <NIKO Vieyra Last Filed: 12/09/24 17:17> Patient Language: Panamanian <NIKO Vieyra Last Filed: 12/09/24 17:17> Prescriptions: No Action carvedilol [Coreg] 6.25 mg tablet 6.25 mg PO Q12H Qty: 60 0RF Rx Instructions: must administer with a meal/food nifedipine 20 mg capsule 20 mg PO Q6H Patient Comments: per cardio propafenone 225 mg tablet 225 mg PO Q12H Patient Comments: per cardio morphine 15 mg tablet 15 mg PO Q8H PRN (Reason: pain) Zenpep 40,000-126,000- 168,000 unit capsule,delayed release(DR/EC) 2 cap PO .COMPLEX Rx Instructions: 2 caps orally nine times a day; administer with meals and/or snacks Xarelto 20 mg tablet 20 mg PO DAILY Rx Instructions: must administer with evening meal tizanidine 2 mg tablet 2 mg PO TID PRN (Reason: muscle spasticity) Qty: 90 2RF pregabalin [Lyrica] 50 mg capsule 50 mg PO TID Qty: 90 1RF albuterol sulfate 90 mcg/actuation HFA aerosol inhaler 2 puff inhalation QID PRN (Reason: shortness of breath or wheezing) Qty: 8.5 0RF simethicone 250 mg capsule 250 mg PO BID PRN (Reason: abdominal distention) Qty: 30 0RF morphine 30 mg tablet extended release 30 mg PO Q8H morphine 30 mg tablet 30 mg PO Q4H PRN (Reason: pain) diphenoxylate-atropine 2.5-0.025 mg tablet 1 tablet PO Q4-6H PRN (Reason: diarrhea) furosemide 20 mg tablet 20 mg PO DAILY potassium chloride 20 mEq tablet extended release 20 meq PO ONCE loperamide [Anti-Diarrheal (loperamide)] 2 mg capsule 2 mg PO Q2-4H PRN (Reason: loose stool) Rx Instructions: administer after each loose stool until symptoms controlled; do not exceed 8 mg per 24 hrs prochlorperazine maleate [Compazine] 10 mg tablet 10 mg PO Q6H PRN (Reason: nausea and vomiting) ondansetron 8 mg tablet,disintegrating 8 mg PO Q8H PRN (Reason: nausea and vomiting) estradiol 0.01 % (0.1 mg/gram) cream 0.25 appful VAGINAL WEEKLY chlorhexidine gluconate 0.12 % mouthwash 1 applic lidocaine HCl 2 % jelly 1 applic topical DAILY PRN (Reason: pain) Patient Comments: to vaginal prolapse area hyoscyamine sulfate 0.125 mg tablet,disintegrating 0.125 mg PO QID PRN (Reason: dyspepsia) lisinopril 10 mg tablet 10 mg PO DAILY Qty: 90 1RF buspirone 10 mg tablet See Rx Instructions .ROUTE .COMPLEX Qty: 180 0RF Dose Instruction: TAKE 1 TABLET BY MOUTH TWICE DAILY Rx Instructions: TAKE 1 TABLET BY MOUTH TWICE DAILY hydroxyzine HCl 25 mg tablet See Rx Instructions .ROUTE .COMPLEX Qty: 90 0RF Dose Instruction: TAKE 1 TABLET BY MOUTH THREE TIMES DAILY NEEDED FOR NAUSEA OR VOMITING Rx Instructions: TAKE 1 TABLET BY MOUTH THREE TIMES DAILY NEEDED FOR NAUSEA OR VOMITING ondansetron 4 mg tablet,disintegrating See Rx Instructions .ROUTE .COMPLEX Qty: 20 0RF Dose Instruction: DISSOLVE 1 TABLET ON THE TONGUE EVERY 8 HOURS NEEDED FOR NAUSEA OR VOMITING Rx Instructions: DISSOLVE 1 TABLET ON THE TONGUE EVERY 8 HOURS NEEDED FOR NAUSEA OR VOMITING pantoprazole 40 mg tablet,delayed release (DR/EC) See Rx Instructions .ROUTE .COMPLEX Qty: 90 1RF Dose Instruction: TAKE 1 TABLET BY MOUTH EVERY MORNING FOR 6 WEEKS Rx Instructions: TAKE 1 TABLET BY MOUTH EVERY MORNING FOR 6 WEEKS citalopram 40 mg tablet See Rx Instructions .ROUTE .COMPLEX Qty: 90 1RF Dose Instruction: TAKE 1 TABLET BY MOUTH EVERY DAY Rx Instructions: TAKE 1 TABLET BY MOUTH EVERY DAY <Kacie Delgado PA-C - Last Filed: 12/09/24 17:17> Follow-up/Referrals: Leonidas Rbuio MD [Primary Care Provider, Family Practice] <Kacie Delgado PA-C - Last Filed: 12/09/24 17:17>
[2024-12-06 16:17] LABS: Alanine Aminotransferase 14 U/L (6-35); Albumin Level 3.0 g/dL (3.5-5.1); Alkaline Phosphatase 78 U/L (38-126); Anion Gap 2 mmol/L (4-12); Aspartate Amino Transferase 26 U/L (14-36); Bilirubin,Total 0.4 mg/dL (0.2-1.3); Blood Urea Nitrogen 12 mg/dL (7-17); Calcium 9.1 mg/dL (8.4-10.2); Carbon Dioxide 30 mmol/L (22-30); Chloride 101 mmol/L (98-107); Estimated CRCL calculation 65 ml/min; Estimated Glomerular Filt Rate > 60; Glucose 95 mg/dL (65-110); Potassium 4.1 mmol/L (3.4-5.0); Sodium 133 mmol/L (137-145); Total Protein 5.7 g/dL (6.3-8.2)
[2024-12-06 16:24] LABS: INR 1.3; Prothrombin Time 15.9 Seconds (11.1-14.7)
[2024-12-06 16:25] LABS: Partial Thromboplastin Time 38.8 Seconds (22.3-36.8)
[2024-12-06 16:31] LABS: NT Pro B Type Natriuretic Pept 1150 pg/mL (19.9-100)
[2024-12-06] MEDS: IPRATROPIUM 0.5 MG/ALBUTEROL SULFATE 2.5 MG AMPUL.NEB 3 ML INHALATION (16:43)
--- NOTE | 2024-12-06 16:49 | PCRCNOTE ---
Patient treatment was delayed due to patient was in the restroom and needed assistance in getting back in bed.
[2024-12-06 17:01] LABS: Influenza A QL RT-PCR Negative (Negative); Influenza B QL RT-PCR Negative (Negative); RSV RNA, RT-PCR Negative (Negative); SARS-CoV-2 RNA PCR Negative (Negative)
[2024-12-06] MEDS: MORPHINE SULFATE (*CRX) 4 MG/ML INJ IV PUSH ×2 (19:53→22:17)
[2024-12-06] MEDS: HYDROmorphone HCL INJ (*CRX) 1 MG/ML SYR IV PUSH (20:43)
[2024-12-06] MEDS: DIPHENOXYLATE/ATROPINE (*CRX) 2.5 MG TABLET 1 TABLET PO (22:17)
--- NOTE | 2024-12-06 23:22 | PC.NURSE ---
Litzy from [facility] calling for update on pt. Most recent vital signs given. Litzy states pt is on a waitlist for a onc bed.
[2024-12-07] VITALS (76 sets, daily range): BP systolic 90–152; BP diastolic 56–135; PULSE 66–82; RESP 9–24; O2SAT 92–100
--- NOTE | 2024-12-07 00:41 | PC.NURSE ---
Pt daughters used call light to call this RN and asked if they could give pt home meds since they have them and we do not carry some of the meds. Per ED RAVI kumar they are okay to give meds with a nurse acknowledged and told before. Xarelto 20 mg PO, Propafenone 225 mg PO, Morphine extended release 30 mg. All given at 0041.
[2024-12-07] MEDS: IPRATROPIUM 0.5 MG/ALBUTEROL SULFATE 2.5 MG AMPUL.NEB 3 ML INHALATION ×3 (00:50→20:18)
--- NOTE | 2024-12-07 07:29 | PC.NURSE ---
Assumed care of pt from Cynthia. Pt sleeping. No distress noted. Slight wheeze with sleeping.
--- NOTE | 2024-12-07 08:01 | PC.NURSE ---
updated [facility] transfer line - still awaiting a bed assignment
--- NOTE | 2024-12-07 10:08 | PC.NURSE ---
Discussed with family med list. Talked with Dr Weir about pt need home meds. Dr Weir states that family can give pt home meds while she is here. Daughter states she will give meds and let us know if she has any additional needs.
[2024-12-07] MEDS: FUROSEMIDE 20 MG TABLET PO (12:29)
[2024-12-07] MEDS: ONDANSETRON HCL ODT 4 MG TABLET 8 MG PO (12:54)
[2024-12-07 14:20] LABS: Add Urine Microscopic? YES; Appearance Urine Turbid (Clear); Glucose Urine UA Negative (Negative); Leukocyte Esterase Ur Negative LEU/UL (Negative); Nitrate Urine Negative (Negative); Specific Grav Ur > 1.045 (1.001-1.035)
[2024-12-07] MEDS: HYOSCYAMINE SULFATE 0.125 MG TABLET PO (20:08)
[2024-12-07] MEDS: HEPARIN SODIUM LOCK FLUSH 500 UNITS/5 ML VIAL IV PUSH (22:21)
--- NOTE | 2024-12-07 22:24 | PC.NURSE ---
pt states she wants to leave AMA and go on hospice.
--- NOTE | 2024-12-07 22:27 | PC.NURSE ---
[facility] transfer called to let them know pt is leaving AMA
== END 2024-12-07 22:57 | disposition short-term general hospital (02) ==
PROVIDERS: Emergency Medicine; Emergency Provider Physician Assistant; PCP Family Medicine
DX: J90 Pleural effusion, not elsewhere classified (principal); C25.0 Malignant neoplasm of head of pancreas; C79.9 Secondary malignant neoplasm of unspecified site; Z20.822 Contact with and (suspected) exposure to COVID-19; I10 Essential (primary) hypertension; I48.20 Chronic atrial fibrillation, unspecified; E78.2 Mixed hyperlipidemia; D64.9 Anemia, unspecified; G47.33 Obstructive sleep apnea (adult) (pediatric); G89.29 Other chronic pain; M19.90 Unspecified osteoarthritis, unspecified site; F33.9 Major depressive disorder, recurrent, unspecified; Z98.84 Bariatric surgery status; Z96.651 Presence of right artificial knee joint; Z96.643 Presence of artificial hip joint, bilateral; Z79.01 Long term (current) use of anticoagulants; Z79.899 Other long term (current) drug therapy; Z79.891 Long term (current) use of opiate analgesic; R91.8 Other nonspecific abnormal finding of lung field; I44.0 Atrioventricular block, first degree; R94.31 Abnormal electrocardiogram [ECG] [EKG]
CPT/HCPCS: 36415; 71046; 71260; 74177; 80053; 81001; 83880; 85025; 85610; 85730; 87637; 93005; 93970; 94640; 96361; 96374; 96375; 96376; 99285; A9270; J1171; J1642; J2270; Q9967

== ENCOUNTER 2025-01-12 08:43 | Emergency (ER) | payer MEDICARE, SELFPAY ==
--- OUTSIDE RECORDS SUMMARY | 2023-08-23 09:00 | XMS_ITS | Continuity of Care Document ---
Author Organization [facility] Address [address] [place] [address] Phone Care Team Providers Care Cleaning Matron Name Role Phone Maribel BROWN, Ramirez Unavailable Unavailable Allergies, Adverse Reactions, Alerts Substance Reaction Status Criticality No Known Allergies Active No Inform ation Medications Medication Instructions Dosage Effective Dates (start - stop) Status Comments Belbuca [address] 1 film by buccal route 2 times every day against the inside of the cheek, holding in place for 5 seconds, 600 MCG - Active citalopram 40 mg tablet take 1 tablet by oral route every day 40 MG - Active Eliquis 5 mg tablet take 1 tablet by ora l route 2 times every day 5 MG - Active carvedilol 6.25 mg tablet take 1 tablet by oral route 2 times every day with food 6.25 MG - Active lisinopril 5 mg tablet take 1 tablet by oral route every day 5 MG - Active Procedures Procedure Date RADEX SPI CRV 2/3 VIEWS OFFICE/OUTPATIENT VISIT NEW Advance Directives Directive Yes / No Effective Date File Name Other Directive No N/A N/A WARNING:The information contained in this section is historical and is provided for information only and does not constitute a legal document or any assurance that the information is still accurate. Please verify the information with the hernadez of the legal document before using it for clinical purposes. Encounters Encounter Description Practice Location Reason(s) For Visit Diagnoses Date Provider Providers Copied on Encounter OFFICE/OUTPA TIENT VISIT NEW [facility], [address], [place], [address], [place] tel:[phone] [facility] Phyllis CervicalgiaOther spondylosis with myelopathy, cervical regionAbnormal reflex 4 Maribel Guzmán. [address], [place], [place], [address] , [place]. tel: [phone] Referring Provider: Nidhi Smart [address], [place], [address]. tel:[phone] Family History Family Member Type Diagnosis Age At Onset No Information Payers Payer name Insurance type Covered republican ID Pedro chaney(s) AAR Medicare Complete HMO-POS [id number] Social History Type Description Quantity Date Captured Comments Alcohol Use Details Unknown Caffeine Use Details Unknown Tobacco Use Status Current non-smoker Smoking Status Never smoker Non-Smoking Tobacco Use Details : No Details Available : No Details Available Sex Female Vital Signs Date / Time: Height Weight BMI Pulse Rate Blood Pressure Temperature Respiratory Rate Body Surface Area Head Circumference Head Circ. Percentile Wt./Ahsan. Percentile BMI percentile Pulse Ox Inhaled Ox 4:24 PM 63.00 in 67.132 kg (148.00 lbs) 26.2 2 kg/m eter (2) Chief Complaint And Reason For Visit No Information Reason For Referral Reason For Referral No Information Plan Of Treatment Date Type Action Status Referral Ordered: RADEX SPI CRV 2/3 VIEWS spine, cervical ordered History Of Present Illness Encounter Date Complaint History Of Prese nt Illness No Information Functional Status Date Functional Assessmen t No Information Instructions Date Instruction Additional Infor mation Fall prevention home exercise program handout provided Assessments Type Assessment Date assessment Cervicalgia assessment Other spondylosis with myelopath y, cervical region assessment Abnormal reflex Patient Care Teams Name Effective Dates (start - stop) Status Members No Information
[2025-01-12] VITALS (9 sets, daily range): BP systolic 131–150; BP diastolic 92–98; PULSE 70–73; RESP 9–13; TEMP 36.4; O2SAT 91–100
--- NOTE | ~2025-01-12 | XR_ITS ---
Examination: XR femur LT min 2V, XR hip LT 2V w AP pelvis Clinical History: fall Comparison: None Technique: 2 views left hip with AP pelvis, 4 views left femur Findings/impression: Left hip with AP pelvis: 1. No fracture or dislocation left hip, with intact arthroplasty. 2. No pelvic fracture. Left femur: 1. Oblique fracture femoral midshaft, extending cephalad along portion of proximal femur with femoral arthroplasty shaft. 2. Severe knee joint degenerative changes. Reviewed, dictated and finalized at location R.
--- NOTE | ~2025-01-12 | CT_ITS ---
CT HEAD NON-CONTRAST Clinical History: Fall Comparison: 11/14/2024 Technique: Unenhanced axial images skull base to vertex Coronal, sagittal reformats CT images acquired with automatic exposure control for dose reduction DLP: 747 mGy-cm Findings: Sulci, ventricles: Unremarkable. No intracerebral hemorrhage. No evidence acute territorial infarct. No mass effect, midline shift. Bony calvarium intact. Visualized paranasal sinuses: Clear. Mastoid air cells: Small bilateral fluid. IMPRESSION: 1. No acute intracranial findings. Reviewed, dictated and finalized at location R.
--- NOTE | ~2025-01-12 | XR_ITS ---
Examination: XR chest 1V Clinical History: hip fx ? Comparison: 12/06/2024 Technique: Portable AP Findings: Right chest Mediport. Large right effusion and diffuse hazy opacity entire right lung. Left lung clear. With basilar calcified granuloma No acute bony abnormality. IMPRESSION: 1. Massive right pleural effusion with associated lobar atelectasis and/or airspace disease. Reviewed, dictated and finalized at location R. IMPRESSION: 1. Massive right pleural effusion with associated lobar atelectasis and/or air space disease.
--- OUTSIDE RECORDS SUMMARY | 2025-01-12 08:52 | XMS_ITS | Encounter Summary ---
Author Organization [facility] [address] [place] [address] Care Team Providers Care Industrial Cleaner Name Role Phone Linette Yepez MD Primary Care Provider [phone] Reason for Visit * Reason Onset Date Comments MEDICAL MANAGEMENT 04/13/2020 JENNIFER W/ RAVI Nettles/ [facility] Encounter Details Date Type Department Care Team ([facility] st Contact Info) Description 04/13/2020 Telephone [facility] Admitting [address] [place] [address] [place] MD [id number] [place] [address] [place] [address] MEDICAL MANAGEMENT (JENNIFER Nettles/ RAVI Nettles/ HOSPITALIST [...] COVID-19? No / Unsure 04/13/2020 6:46 AM OYSTER SHIPPER documented as of this encounter Plan of Treatment Not on file documented as of this encounter Visit Diagnoses Not on filedocumented in this encounter Care Teams Industrial Cleaner Relationship Specialty Start Date End Date Linette Yepez MD PCP - General Family Practice 04/01/20 documented as of this encounter
--- OUTSIDE RECORDS SUMMARY | 2025-01-12 08:52 | XMS_ITS ---
Author Organization [facility] Address [address] [place] [address] Care Team Providers Care Car Attendant Name Role Phone Arianna Persaud Unavailable + [phone] Leonidas Rubio MD Primary Care Provider David Brewer MD Unavailable Haven Cox M Unavailable Daisy Mercado MD Unavailable [phone] Haven Cox M Th Unavailable Active Problems [...] Hgb. - pelvis US pending - outpatient parking enforcement manager follow up Assessment & Plan (10/24/2024 1:44 PM CDT): Reports recent vaginal spotting when wiping. Stable Hgb. - pelvis US - outpatient parking enforcement manager follow up Assessment & Plan (10/23/2024 3:54 PM CDT): Reports recent vaginal spotting when wiping. Stable Hgb. - pelvis US - outpatient parking enforcement manager follow up Moderate malnutrition 10/22/2024 Left upper [...] onc c/s - continue home Creon - PT/OT/SOLE SEWER HAND and RD consult for falls and dysphagia [...] onc c/s - continue home Creon - PT/OT/SOLE SEWER HAND and RD consult for falls and dysphagia [...] onc c/s - continue home Creon - PT/OT/SOLE SEWER HAND and RD consult for falls and dysphagia [...] Oncology consult - continue home Creon - PT/OT/SOLE SEWER HAND and RD consult for falls and dysphagia Pancreatic mass 09/04/2024 Elevated liver function tests 09/04/2024 Intractable pain 02/25/2023 Dizziness 11/07/2022 Mixed anxiety and depressive disorder 06/21/2022 Assessment & Plan (06/21/2022 7:25 PM EDIPHONE OPERATOR): Worsening after of her mother in [...] opium Assessment & Plan (06/21/2022 7:16 PM EDIPHONE OPERATOR): Ongoing for approximately 1 week after finishing a course of cefdinir for UTI. No more urinary symptoms or abdominal pain. No acute findings on exam. Will order CDiff test. Advised on Bowel rest: push fluids, bland high fiber diet. Continue immodium if needed. Vulvovaginitis 06/20/2022 Assessment & Plan (06/21/2022 7:17 PM EDIPHONE OPERATOR): S/p cefdinir course for UTI. Denies discharge or genital lesions. exam deferred per pt request. Rxd Diflucan as directed. Use mild non-fragrant soaps/lotions. Recurrent UTI 06/08/2022 Assessment & Plan (06/08/2022 2:35 PM EDIPHONE OPERATOR): Currently on Abx for treatment. Patient [...] hypotension Assessment & Plan (06/21/2022 7:12 PM EDIPHONE OPERATOR): BP stable in office today on current therapy. Continue current regimen and low salt diet. Stay hydrated. Assessment & Plan (06/08/2022 2:36 PM EDIPHONE OPERATOR): Chronic and mildly elevated. Goal < [...] elsewhere Assessment & Plan (06/08/2022 2:35 PM EDIPHONE OPERATOR): Chronic and stable. 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 with library specialist Assessment & Plan (12/23/2021 12:10 PM [...]
--- OUTSIDE RECORDS SUMMARY | 2025-01-12 08:52 | XMS_ITS | Clinical Summary ---
Author Organization [facility] Address [address] [place] [address] Phone Care Team Providers Care Glue Spreading Machine Operator Name Role Phone Linette Yepez MD Primary Care Provider [phone] Allergies Active Allergy Reactions Criticality Noted Date [...] 90 mL 360 mL 04/14/2020 2:38 PM INTERNATIONAL LOGISTICS ANALYST 0 Active ondansetron (Zofran ODT) 8 mg Tablet, Rapid Dissolve Dissolve 1 Tablet (8 mg) by mouth every 8 hours as needed for nausea or vomiting. 20 Tablet 2 04/14/2020 2:38 PM INTERNATIONAL LOGISTICS ANALYST 0 Active Active Problems Problem Noted Date [...] Comments Blood Pressure 168/83 04/14/2020 7:59 AM INTERNATIONAL LOGISTICS ANALYST Pulse 61 04/14/2020 7:59 AM INTERNATIONAL LOGISTICS ANALYST Temperature 36.8 C (98.2 F) 04/14/2020 7:59 AM INTERNATIONAL LOGISTICS ANALYST Respiratory Rate 18 04/14/2020 7:59 AM INTERNATIONAL LOGISTICS ANALYST Oxygen Saturation 98% 04/14/2020 7:59 AM INTERNATIONAL LOGISTICS ANALYST Inhaled Oxygen Concentration - - Weight 108.2 kg (238 lb 9.6 oz) 04/13/2020 7:05 AM INTERNATIONAL LOGISTICS ANALYST Height 160 cm (5' 3) 04/13/2020 7:05 AM INTERNATIONAL LOGISTICS ANALYST Body Mass Index 42.27 04/13/2020 7:05 AM INTERNATIONAL LOGISTICS ANALYST Plan of Treatment Health Maintenance Due Date Last Done Comments COLORECTAL SCREENING 1994 Colorectal Cancer Screening 1994 FIT-DNA Q 3 years 1994 FIT/FOBT Q 1 year 1994 Flex Sig/CT Colonography Q 5 years 1994 PNEUMOCOCCAL VACCINE 50+ YEARS (1 of 1 - PCV) 12/26/19 00 ZOSTER VACCINE (1 of 2) 12/26/1999 OSTEOPOROSIS SCREENING 2014 DTAP/TDAP/TD VACCINES (2 - Td or Tdap) 03/19/2024 INFLUENZA VACCINE (#1) 2024 RSV VACCINE (60+ or ) (1 - 1-dose 75+ series) 2024 Medical Devices Implanted Type Area Biscuit Machine Operator Device Identifier Shelf Expiration Date Model / Serial / Lot Seamguard Endogia 60 Prpl [id number] - [id number] Implanted:Qty : 2 on 04/13/2020 by Hong Bryant MD at [facility] N/A: Abdomen [employer] 12/02/2022 [id number] / / [id number] Seamguard Endogia 60 Blk [id number] - [id number] Implanted:Qty : 1 on 04/13/2020 by Hong Bryant MD at [facility] N/A: Abdomen [employer] 08/19/2022 [id number] / / [id number] Insurance RX OPTUM RX Member Subscriber Plan / Payer (Ef fective 2016-Present) Name:Susannah Camargo Relation to Subscriber:Self Name:Raman Susannah A Payer ID:Not on file Group ID:[id number] Type:RX Medicare Part D Address: [address] Advance Directives For more information, please contact: [phone] * Full Code (Latest Code Status on File) Date Activated Date Inactivated Comments 04/13/2020 1:09 PM 04/14/2020 5:55 PM Care Teams Glue Spreading Machine Operator Relationship Specialty Start Date End Date Linette Yepez MD PCP - General Family Practice 04/01/20
--- OUTSIDE RECORDS SUMMARY | 2025-01-12 08:53 | XMS_ITS | Clinical Summary ---
Author Organization [facility] Address [address] [place] [address] Care Team Providers Care Auto Parts Delivery Driver Name Role Phone Aury Joseph RN Unavailable [phone] Dar Stinson MD Unavailable [phone] Linette Yepez MD Primary Care Provider + Source Comments [facility],non-owned Affiliates and Associated Physician Practices is amultiple site organization consisting of ambulatory clinics and hospital sitesin [place], [place], [place] and [place]. This disclosure is being madepursuant to the Care Everywhere program and may not contain all information available regarding this patient. 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 [employer] Not on file Not on file Not on file Last Filed Vital Signs Vital Sign Reading Time Taken Comments Blood Pressure 106/74 06/16/2021 10:41 AM CROWN IRONER Pulse 60 06/16/2021 10:41 AM CROWN IRONER Temperature 36.2 C (97.2 F) 06/16/2021 10:41 AM CROWN IRONER Respiratory Rate 20 06/16/2021 10:41 AM CROWN IRONER Oxygen Saturation 97% 06/16/2021 10:41 AM CROWN IRONER Inhaled Oxygen Concentration - - Weight 72.6 kg (160 lb) 06/16/2021 10:41 AM CROWN IRONER Height 160 cm (5' 3) 06/16/2021 10:41 AM CROWN IRONER Body Mass Index 28.34 06/16/2021 10:41 AM CROWN IRONER Plan of Treatment Health Maintenance Due Date [...] Cancer Screening 04/17/2015 MAMMOGRAM 09/09/2016 09/09/2014, 08/05/2008 DTAP/TDAP/TD VACCINES (2 - Td or Tdap) 03/19/2024 03/19/2014 DEPRESSION SCREENING 04/17/2024 MEDICARE AWV CALENDAR YEAR 2024 COVID-19 VACCINE (3 - 2024-26 season) 2024 06/12/2020, 05/22/2020 INFLUENZA VACCINE (#1) 2024 01/15/2015, 2008 Respiratory [...] < 140/90 Blood Pressure 106/74(2021 10:41 AM CROWN IRONER) Nae Montanez MA Medical Devices Implanted Type Area Prepared Foods Supervisor Device Identifier Shelf Expiration Date Model / Serial / Lot Shell Coat 3hole 54mm Implanted:Qty: 1 on 11/21/2013 by Francis Cortes MD at [facility] Right: Hip [employer] 08/16/2023 [id number] / / [id number] Linr Acetab Refl Xlpe 0deg 36mm X 54mm Implanted:Qty: 1 on 11/21/2013 by Francis Cortes MD at [facility] Right: Hip [employer] 10/15/2023 [id number] / / [id number] Spherical Head Screw 6.5mm Cancellous Implanted:Qty: 1 on 11/21/2013 by Francis Cortes MD at [facility] Right: Hip [employer] 05/17/2023 [id number] / / [id number] Standard Offset Fixed Neck Stikitite Coated Stem Feoral Coponent Implanted:Qty: 1 on 11/21/2013 by Francis Cortes MD at [facility] Right: Hip [employer] 06/14/2023 [id number] / / [id number] 03/30 Taper Femoral Head Implanted:Qty: 1 on 11/21/2013 by Francis Cortes MD at [facility] Right: Hip [employer] 12/14/2022 [id number] / / [id number] Bill Only H1 Uncem Metal Or Ceramic Implanted:Qty: 1 on 11/21/2013 by Francis Cortes MD at [facility] [employer] H1 BILL ONLY [...] 1:06 PM CDT Narrative Resulting Agency Comment [facility] [address] [id number] Feliciano Oliver MD LAB - CHEMISTRY ORDERABLES Fin al Result [facility] ACCOUNT BILL [address] [place] [address] * MAMMO SCREENING DIGITAL IMAGE BILAT (09/09/2014 5:05 PM CDT) Anatomical Region Laterality Modality Breast Bilateral Mammography 09/10/2014 5:08 PM CDT Impressions 09/10/2014 5:09 PM CDT No mammographic evidence of malignancy in either breast. ASSESSMENT: BIRADS Category 1: Negative. RECOMMENDATION: Bilateral screening mammogram in one year. Thank you for allowing us to participate in the care of your patient. [facility] [place] utilizes [email or web address] as a reminder system to notify patients of their next recommended mammogram. Narrative 09/10/2014 5:09 PM CDT EXAMINATION: Digital screening mammogram on 09/09/2014. Computer assisted detection was utilized. PRIOR: Mammogram from [facility] in 09/28/2006. FINDINGS: Breast parenchymal density: [...] offers HCV Ab w/Reflex to Verification test #[id number]. Blood specimen (specimen) BLOOD SPECIMEN / Unknown 08/09/2013 8:53 AM CDT 08/09/2013 12:57 PM CDT Narrative Resulting Agency Comment [facility] [address] [facility] [id number] Feliciano Oliver MD LAB - CHEMISTRY ORDERABLES Fin al Result [facility] ACCOUNT BILL [address] [place] [address] from Last 3 Months or Most Recently Relevant to Health Maintenance Insurance MANAGED MEDICARE ADV MANAGED MEDICARE ADV Advance Directives * Full Code (Latest Code Status on File) Date Activated Date Inactivated Comments 11/21/2013 12:38 PM 11/24/2013 6:31 PM * Full Code Date Activated Date Inactivated Comments 02/18/2009 10:26 AM 02/22/2009 1:32 AM Care Teams Auto Parts Delivery Driver Relationship Specialty Start Date End Date Linette Yepez MD [address] [place] [address] PCP - General Family Medicine 01/09/20 Aury Joseph, RN Networking Engineer 11/22/13 [place] [address] [address] Orthopedic Surgery 12/27/13
--- OUTSIDE RECORDS SUMMARY | 2025-01-12 08:53 | XMS_ITS | Patient Health Record ---
Author Organization [facility] Address [address] [place] [address] Care Team Providers Care Fugitive Investigator Name Role Phone Lucho BROWN, Linette Primary Care Provider Francie Nidhi Alejandre Unavailable [phone] Maegan POPE, Sussy Unavailable Lissette Colby Unavailable [phone] Johnathon Dick Unavailable [phone] Allergies No Known Allergies Results Component Value Reference Range Notes On[facility] Profil e (Not yet reviewed by provider) Interpretation: Performing Lab:[facility] (CLIA#: [id number]), [address] [place] [address], Director - Adelina Jensen Notes/Report: These tests were developed and their performance characteristics determined by [facility]. They have not been cleared or approved by the US Food and Drug Administration. Certifying Funnel Coater: Shalom Nicholson (Remote [id number]) Analyzed at [facility] (CLIA#: [id number]) - [address] [place] [address] - Electric Vehicle Electrician: Adelina Ontiveros Cital+Escital Ur CMP >33571 >=50 ng/mL COMPLIA NT: Test result is [...] expected with prescribed drug. Tramadol Ur CMP >55414 >=100 ng/mL COMPLIANT: T est result is consistent and expected with prescribed drug. Pregabalin Ur CMP <5 >=5 mcg/mL NON-COMPLI ANT: Test result indicates patient may not be taking drug prescribed. Ethyl Sulfate Ur CMP 63862 >=200 ng/mL PRESENT : Test result is consistent with alcohol exposure within 72 hours of specimen collection. For additional information, please consult the Clinical Team at or email [email or web address] BioDetect EXPECTED Test result is consistent with [...] >=100 ng/mL POSI TIVE Tramadol Ur Cfm-mCnc >12633 >=100 ng/mL POSITIV E N-Desmethyl Tram Ur Cfm-mCnc >47126 >=100 ng/mL POSITIVE Creat Ur-mCnc 275.9 20 - 370 mg/dL NORMAL Creatinine and pH are performed for specimen validity and not diagnostic purposes. pH Ur 6.04 4.5 - 9.0 NORMAL Creatinine and pH are performed for specimen validity and not diagnostic purposes. Alcohol Metabolites Ur Ql Cfm >=200 >=200 ng/mL POSITIVE Ethyl sulfate Ur Cfm-mCnc 49476 >=200 ng/mL PO SITIVE Busprione Ur Ql Cfm <25 >=25 ng/mL NONE DET ECTED SSRI Profile Ur Ql Cfm >=50 >=50 ng/mL POSIT NILSA Citalopram Ur Cfm-mCnc >09827 >=50 ng/mL POSIT NILSA Norcitalopram Ur-mCnc >02806 >=50 ng/mL POSITI VE SN Reuptake Inhibitors Ur Ql <5 >=5 ng/mL NONE DETECTED Synthetic Stimulants Ur Ql Cfm <1 >=1 ng/mL NONE DETECTED TRACK MOVING MACHINE OPERATOR Not Otherwise Specified Ur Ql Cfm <1 >=1 ng/mL NONE DETECTED Synthetic Cannabinoids Ur Ql Cfm <1 >=1 ng/m L NONE DETECTED Hallucinogens/Dissociatives Ur Ql Cfm <1 >=1 ng/mL NONE DETECTED Medicare Compliance Auditor Benzodiazepines Ur Ql Cfm <1 >=1 ng/mL NONE DETECTED Medicare Compliance Auditor Opioids Ur Ql Cfm <1 >=1 ng/mL N ONE DETECTED THC Ur Ql Scn <20 >=20 ng/mL NONE DETECTED [email or web address] Profil e Reviewed date:03/04/2024 07:46:44 AM Interpretation: Performing Lab:[facility] (CLIA#: [id number]), [address] [place] [address], Director - Adelina Jensen Notes/Report: Certifying Funnel Coater: Nicolas Carlson (Remote [id number]) These tests were developed and their performance characteristics determined by [facility]. They have not been cleared or approved by the US Food and Drug Administration. Analyzed at [facility] (CLIA#: [id number]) - [address] [place] [address] - Electric Vehicle Electrician: Adelina Ontvieros Cital+Escital Ur CMP >66132 >=50 ng/mL COMPLIA NT: Test result is [...] form, was detected. Ethyl Sulfate Ur CMP 07763 >=200 ng/mL PRESENT : Test result is consistent with alcohol exposure within 72 hours of specimen collection. For additional information, please consult the Clinical Team at or email [email or web address] BioDetect EXPECTED Test result is consistent with [...] >=200 ng/mL POSITIVE Ethyl sulfate Ur Cfm-mCnc 80348 >=200 ng/mL PO SITIVE Busprione Ur Ql Cfm <25 >=25 ng/mL NONE DET ECTED Tizanidine Ur Ql Cfm >=25 >=25 ng/mL POSITIV E Tizanidine Ur Cfm-mCnc 157 >=25 ng/mL POSIT NILSA Dehydrotizanidine Ur Cfm-mCnc 17 >=5 ng/mL POSITIVE SSRI Profile Ur Ql Cfm >=50 >=50 ng/mL POSIT NILSA Norcitalopram Ur-mCnc >52656 >=50 ng/mL POSITI VE Synthetic Stimulants Ur Ql Cfm <1 >=1 ng/mL NONE DETECTED TRACK MOVING MACHINE OPERATOR Not Otherwise Specified Ur Ql Cfm <1 >=1 ng/mL NONE DETECTED Synthetic Cannabinoids Ur Ql Cfm <1 >=1 ng/m L NONE DETECTED Hallucinogens/Dissociatives Ur Ql Cfm <1 >=1 ng/mL NONE DETECTED Medicare Compliance Auditor Benzodiazepines Ur Ql Cfm <1 >=1 ng/mL NONE DETECTED Medicare Compliance Auditor Opioids Ur Ql Cfm <1 >=1 ng/mL N ONE DETECTED THC Ur Ql Scn <20 >=20 ng/mL NONE DETECTED [facility] Profil e (Not yet reviewed by provider) Interpretation: Performing Lab:[facility] (CLIA#: [id number]), [address] [place] [address], Director - Adelina Jensen Notes/Report: These tests were developed and their performance characteristics determined by [facility]. They have not been cleared or approved by the US Food and Drug Administration. Certifying Funnel Coater: Dustin Quinn (Remote [id number]) Analyzed at [facility] (CLIA#: [id number]) - [address] [place] [address] - Electric Vehicle Electrician: Adelina Ontiveros Buprenorphine Ur CMP 46 >=1 [...] expected with prescribed drug. Tramadol Ur CMP >86869 >=100 ng/mL COMPLIANT: T est result is [...] >=100 ng/mL POSITIVE N-Desmethyl Tram Ur Cfm-mCnc >84052 >=100 ng/mL POSITIVE Creat Ur-mCnc 19.5 20 [...] Ql Cfm <1 >=1 ng/mL NONE DETECTED TRACK MOVING MACHINE OPERATOR Not Otherwise Specified Ur Ql Cfm <1 >=1 ng/mL NONE DETECTED Synthetic Cannabinoids Ur Ql Cfm <1 >=1 ng/m L NONE DETECTED Hallucinogens/Dissociatives Ur Ql Cfm <1 >=1 ng/mL NONE DETECTED Medicare Compliance Auditor Benzodiazepines Ur Ql Cfm <1 >=1 ng/mL NONE DETECTED Medicare Compliance Auditor Opioids Ur Ql Cfm <1 >=1 ng/mL [...] W/U Status Risk Notes Problem Cervical spondylosis (648408445) Cervical spondylosis (M47.812) Active confirmed Problem Hypercholesterolemia (36538451) Hypercholesterolemia (E78.00) Active confirmed Problem Long-term current us e of drug therapy (599606433) extermination inspector use of drug (Z79.899) Active confirmed Problem Neck pain (44792047) Cervical sp ine pain (M54.2) Active confirmed Problem Hypertension (05492758) Hypertension (I10) 2009 Active confirmed Problem Low back pain (571077996) Low back pain (M54.50) Active confirmed Problem Atrial fibrillation (37734588) Atrial fibrillation (I48.91) Active confirmed Problem Long-term current us e of anticoagulant (988431796) Anticoagulated (Z79.01) Active confirmed Vital Signs Heart Rate 61 /min 08/20/2024 Height-cm 160.02 cm 09/26/2024 Blood pressure diastolic 89 mm Hg 08/20/2024 Weight-kg 63.05 kg 09/26/2024 Height 5ft 3in in 09/26/2024 Blood pressure systolic 142 mm Hg 08/20/2024 Weight 139 lbs 09/26/2024 BMI 24.62 kg/m2 09/26/2024 Encounters Encounter Location Date Provider Diagnosis [facility] [address] [place] [address] [address] [place] [address] 02/26/2024 Lissette Colby Cervical spondylosis M47.812 ; Cervical spine pain M54.2 ; Low back pain M54.50 ; On group home drug therapy Z79.899 and Screening for substance abuse Z13.89 Telehealth [facility] [address] [place] [address] [address] [place] [address] 03/25/2024 Sussy Issa Cervical spondylosis M47.812 ; Cervical spine pain M54.2 ; Low back pain M54.50 and half-way use of drug Z79.899 [facility] [address] [place] [address] [address] [place] [address] 04/25/2024 Lissettetelma Colby Cervical spondylosis M47.812 ; Cervical spine pain M54.2 ; Low back pain M54.50 and extermination inspector use of drug Z79.899 Telehealth [facility] [address] [place] [address] [address] [place] [address] 05/09/2024 Lissette Colby Cervical spine pain M54.2 ; Cervical spondylosis M47.812 and On extermination supervisor drug therapy Z79.899 [facility] [address] [place] [address] [address] [place] [address] 06/18/2024 Lissettetelma Colby Cervical spondylosis M47.812 ; Cervical spine pain M54.2 and extermination inspector use of drug Z79.899 Telehealth [facility] [address] [place] [address] 07/16/2024 Lissette Colby Cervical spine pain M54.2 ; Low back pain M54.50 ; Cervical spondylosis M47.812 and extermination inspector use of drug Z79.899 [facility] [address] [place] [address] [address] [place] [address] 08/20/2024 Lissette Colby Cervical spondylosis M47.812 ; Cervical spine pain M54.2 ; Low back pain M54.50 and extermination inspector use of drug Z79.899 Telehealth [facility] [address] [place] [address] [address] [place] [address] 09/12/2024 Lissette Colby Cervical spine pain M54.2 ; Cervical spondylosis M47.812 ; Hypertension I10 ; Pancreatic neoplasm D49.0 and half-way use of drug Z79.899 [facility] [address] [place] [address] [address] [place] [address] 09/26/2024 Johnathon Packererg Pancreatic carcinoma C25.9 ; Cervical spondylosis M47.812 ; Cervical spine pain M54.2 ; Low back pain M54.50 ; extermination inspector use of drug Z79.899 ; Hypertension I10 ; half-way use of opioid Z79.891 ; Hypercholesterolemia E78.00 ; Anticoagulated Z79.01 and Atrial fibrillation I48.91 [facility] [address] [place] [address] 01/25/2024 Johnathon Mayelin [facility] [address] [place] [address] 02/26/2024 Nidhi Mayelin [facility] [address] [place] [address] 03/25/2024 Nidhi Mayelin [facility] [address] [place] [address] 04/25/2024 Nidhi Mayelin [facility] [address] [place] [address] 05/09/2024 Nidhi Mayelin [facility] [address] [place] [address] 06/18/2024 Nidhi Mayelin [facility] [address] [place] [address] 07/16/2024 Nidhi Mayelin [facility] [address] [place] [address] 08/20/2024 Nidhi Mayelin [facility] [address] [place] [address] 09/12/2024 Johnathon Mayelin [facility] [address] [place] [address] 09/19/2024 Nidhi Mayelin [facility] [address] [place] [address] 09/26/2024 Johnathon Mayelin [facility] [address] [place] [address] 09/27/2024 Johnathon Mayelin [facility] [address] [place] [address] 10/03/2024 Johnathoncyn Dick Assessments Encounter Date Diagnosis (ICD Code) Assessment Notes Treatment Notes Treatment Clinical Notes Section Notes 02/26/2024 Cervical spondylosis (ICD-10 - M47.812) 02/26/2024 [...] Cervical spine pain (ICD-10 - M54.2) 06/18/2024 extermination inspector use of kike g (ICD-10 - Z79.899) 05/09/2024 On group home drug therapy (ICD-10 - Z79.899) 04/25/2024 Cervical spine pain (ICD-10 - M54.2) 03/25/2024 Low back pain (ICD-1 0 - M54.50) 02/26/2024 Low back pain (ICD-1 0 - M54.50) 02/26/2024 On group home drug therapy (ICD-10 - Z79.899) 03/25/2024 extermination inspector use of kike g (ICD-10 - Z79.899) 04/25/2024 Low back pain (ICD-1 0 - M54.50) 08/20/2024 Low back pain (ICD-1 0 - M54.50) 07/16/2024 half-way use of kike g (ICD-10 - Z79.899) 09/12/2024 Pancreatic neoplasm (ICD-10 - D49.0) 09/26/2024 extermination inspector use of kike g (ICD-10 - Z79.899) 09/26/2024 Hypertension (ICD-10 - I10) 09/12/2024 extermination inspector use of kike g (ICD-10 - Z79.899) 04/25/2024 half-way use of kike g (ICD-10 - Z79.899) 08/20/2024 half-way use of kike g (ICD-10 - Z79.899) 02/26/2024 Screening for substa nce abuse (ICD-10 - Z13.89) 09/26/2024 half-way use of opi oid (ICD-10 - Z79.891) 09/26/2024 Hypercholesterolemia (ICD-10 - E78.00) 09/26/2024 Anticoagulated (ICD- 10 - Z79.01) 09/26/2024 Atrial fibrillation (ICD-10 - I48.91) 02/26/2024 Other Body Mass Index : Care [...] 06/18/2024 Synthetic Stimulants 02/26/2024 Synthetic Stimulants 09/26/2024 Medicare Compliance Auditor Benzodiazepines 06/18/2024 Medicare Compliance Auditor Benzodiazepines 09/26/2024 Medicare Compliance Auditor Benzodiazepines 02/26/2024 Synthetic Cannabinoids 02/26/2024 Synthetic Cannabinoids 09/26/2024 Synthetic Cannabinoids 06/18/2024 Medicare Compliance Auditor Opioids 09/26/2024 Medicare Compliance Auditor Opioids 02/26/2024 Medicare Compliance Auditor Opioids 06/18/2024 Hallucinogens/Dissociatives 02/26/2024 Hallucinogens/Dissociatives 06/18/2024 Hallucinogens/Dissociatives 09/26/2024 TRACK MOVING MACHINE OPERATOR Other 09/26/2024 TRACK MOVING MACHINE OPERATOR Other 06/18/2024 TRACK MOVING MACHINE OPERATOR Other 02/26/2024 Marijuana - Urine 02/26/2024 Marijuana [...] Insured Coverage Start Date Coverage End Date [place] [address] [place] [address] [id number] Susannah Camargo Self - patient is the insured Medical (General) History Medical History History ICD Code hyperlipidemia hypertension Atrial fibrillation Surgical History Surgery Date(Month/Year) B TKR B THR oophorectomy gastric sleeve 03/2020 Hospitalization History Reason Date(Month/Year) no hospitalizations since prior visit
--- OUTSIDE RECORDS SUMMARY | 2025-01-12 08:53 | XMS_ITS | Clinical Summary ---
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 Name Role Phone Arianna Persaud Unavailable [phone] Leonidas Rubio MD Primary Care Provider David Brewer MD Unavailable [phone] Kalli Cox M Unavailable Daisy Mercado MD Unavailable [phone] Kalli Cox MD Unavailable Allergies Active Allergy Reactions Criticality Noted Date Comments Amoxicillin-Pot Clavulanate Diarrhea,Vomiting Low 10/25/2024 Patient states this causes her severe diarrhea and vomiting Hydrocodone Itching,Rash Medium 09/17/2024 Oxycodone Itching,Rash Medium 09/17/2024 Medications syringe with needle (Syringe 3cc/25Gx1) 3 mL 25 gauge x 1 syringe 1 Syringe every 30 (thirty) days 3 each 12/24/19 22 Active busPIRone (BUSPAR) 7.5 mg tabletIndications: Generalized Anxiety Disorder TAKE 1 TABLET(7.5 MG) BY MOUTH THREE TIMES DAILY 90 tablet 2 07/28/19 23 Active citalopram (CeleXA) 40 mg tabletIndications: Anxiety with Depression,major depressive disorder Take 1 tablet (40 mg total) by mouth daily 90 tablet 08/11/19 23 Active hydrOXYzine (ATARAX) 25 mg tabletIndications: anxiety Take 1 tablet by mouth every 8 (eight) hours as needed (nausea) 01/10/[address] (PROTONIX) 40 mg EC tabletIndications: Stress Ulcer Prophylaxis Take 1 tablet (40 mg total) by mouth daily Active rivaroxaban (XARELTO) 20 mg tabletIndications: atrial fibrillation Take 1 tablet (20 mg total) by mouth daily 90 tablet 3 05/09/19 25 Active lisinopriL (PRINIVIL,ZESTRIL) 40 mg tablet TAKE 1 TABLET(40 MG) BY MOUTH DAILY 90 tablet 3 05/27/19 25 Active hyoscyamine (OSCIMIN) 0.125 mgIndications:diar matty DISSOLVE 1 TABLET ON THE TONGUE FOUR TIMES DAILY 08/31/19 25 Active carvediloL (COREG) 6.25 mg tabletIndications: hypertension Take 1 tablet (6.25 mg total) by mouth 2 (two) times a day 60 tablet 5 10/02/19 25 Active propafenone SR (RYTHMOL SR) 225 mg 12 hr capsuleIndications :Prevention of Recurrent Atrial Fibrillation Take 1 capsule (225 mg total) by mouth 2 (two) times a day 60 capsule 11 10/02/19 25 026 Active naloxone (NARCAN) 4 mg/actuation spray,non-aerosolI ndications:Opioid Toxicity as directed Nasally in an opioid emergency for 30 days 09/27/19 25 Active prochlorperazine (Compazine) 10 mg tabletIndications: Cancer Chemotherapy-Induc ed Nausea and Vomiting Take 1 tablet (10 mg total) by mouth every 6 (six) hours as needed for nausea or vomiting 120 tablet 3 10/14/19 25 Active ondansetron ODT (ZOFRAN-ODT) 8 mg disintegrating tabletIndications: Cancer Chemotherapy-Induc ed Nausea and Vomiting Take 1 tablet (8 mg total) by mouth every 8 (eight) hours as needed for nausea or vomiting 120 tablet 2 10/08/19 25 Active loperamide (IMODIUM A-D) 2 mg tabletIndications: Chemotherapy-Induc ed Diarrhea,diarrhea Take 1 tablet (2 mg total) by mouth as needed for diarrhea (Take 2 tablets with first episode of diarrhea and 1 tablet after each additional episode of diarrhea. Up to 8 tablets daily.) 120 tablet 1 10/16/19 25 Active lidocaine-prilocai ne (EMLA) creamIndications:A dministration of Local Anesthesia Apply topically as needed for pain 30 g 1 10/16/19 25 Active al & mag hydroxide with simethicone-diphen hydramine-lidocain e (MAGIC MOUTHWASH) suspension 0-5-2Mdhseknveoo:P ancreatic adenocarcinoma (HCC) Swish and swallow 10-15 mL every 4 (four) hours as needed (prevention and treatment of chemotherapy-i nduced mouth sores) 480 mL 3 10/29/19 25 Active potassium chloride ER 20 mEq CR tabletIndications: Pancreatic adenocarcinoma (HCC) TAKE 1 TABLET(20 MEQ) BY MOUTH DAILY 90 tablet 11/06/19 25 Active pancrelipase (Zenpep) 40,000-126,000- 168,000 unit per capsuleIndications :exocrine pancreatic insufficiency Take 2 capsules by mouth as directed Take 2 capsules 9 times daily with meals. 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 Take 1 tablet (20 mg total) by mouth daily 30 tablet 2 11/20/19 25 026 Active morphine (MSIR) 30 mg tabletIndications: Pain Take 1.5 tablets (45 mg total) by mouth every 4 (four) hours as needed for pain 270 tablet 12/03/19 25 Active morphine ER (MS CONTIN) 30 mg 12 hr tabletIndications: severe chronic pain requiring long-term opioid treatment Take 1 tablet (30 mg total) by mouth 3 (three) times a day 90 tablet 12/03/19 25 Active lidocaine jelly (XYLOCAINE) 2 %Indications:Urina ry retention Apply topically as needed for pain (discomfort) 45 mL 1 11/13/19 25 025 diphenoxylate-atro pine (LOMOTIL) 2.5-0.025 mg per tabletIndications: diarrhea Take 1 tablet by mouth 4 (four) times a day as needed for diarrhea 120 tablet 11/27/19 25 025 Active Problems Problem Noted Date Diagnosed Date [...] Hgb. - pelvis US pending - outpatient diamond powder technician follow up Assessment & Plan (10/24/2024 1:44 PM CDT): Reports recent vaginal spotting when wiping. Stable Hgb. - pelvis US - outpatient diamond powder technician follow up Assessment & Plan (10/23/2024 3:54 PM CDT): Reports recent vaginal spotting when wiping. Stable Hgb. - pelvis US - outpatient diamond powder technician follow up Moderate malnutrition 10/22/2024 Left upper [...] onc c/s - continue home Creon - PT/OT/TECHNICIAN PLANT AND MAINTENANCE and RD consult for falls and dysphagia [...] onc c/s - continue home Creon - PT/OT/TECHNICIAN PLANT AND MAINTENANCE and RD consult for falls and dysphagia [...] onc c/s - continue home Creon - PT/OT/TECHNICIAN PLANT AND MAINTENANCE and RD consult for falls and dysphagia [...] Oncology consult - continue home Creon - PT/OT/TECHNICIAN PLANT AND MAINTENANCE and RD consult for falls and dysphagia Pancreatic mass 09/04/2024 Elevated liver function tests 09/04/2024 Intractable pain 02/25/2023 Dizziness 11/07/2022 Mixed anxiety and depressive disorder 06/21/2022 Assessment & Plan (06/21/2022 7:25 PM PIT HAND): Worsening after of her mother in 04/2022. [...] opium Assessment & Plan (06/21/2022 7:16 PM PIT HAND): Ongoing for approximately 1 week after finishing a course of cefdinir for UTI. No more urinary symptoms or abdominal pain. No acute findings on exam. Will order CDiff test. Advised on Bowel rest: push fluids, bland high fiber diet. Continue immodium if needed. Vulvovaginitis 06/20/2022 Assessment & Plan (06/21/2022 7:17 PM PIT HAND): S/p cefdinir course for UTI. Denies discharge or genital lesions. exam deferred per pt request. Rxd Diflucan as directed. Use mild non-fragrant soaps/lotions. Recurrent UTI 06/08/2022 Assessment & Plan (06/08/2022 2:35 PM PIT HAND): Currently on Abx for treatment. Patient to [...] hypotension Assessment & Plan (06/21/2022 7:12 PM PIT HAND): BP stable in office today on current therapy. Continue current regimen and low salt diet. Stay hydrated. Assessment & Plan (06/08/2022 2:36 PM PIT HAND): Chronic and mildly elevated. Goal < 130/80. [...] elsewhere Assessment & Plan (06/08/2022 2:35 PM PIT HAND): Chronic and stable. 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 with large sheetfed press operator Assessment & Plan (12/23/2021 12:10 PM [...] Encounters Date Type Department Care Team Description 12/17/2024 8:50 AM CDT - 12/17/2024 11:59 PM CDT Hospital Encounter [facility] Imaging [address] [address] [place] [address] Elissa Arguello MD Giesler, Hannah N. RN Pancreatic adenocarcinoma (HCC) Discharge Disposition: Discharge to home or self care 12/16/2024 Telephone [facility] Bone Marrow Transplant [address] [facility] Floor 6 [place] [address] Josemanuel Richey, AUSTEN 12/13/2024 Telephone [facility] Imaging [address] [address] [place], [place] [address] Jenae Hui RN 12/12/2024 5:00 PM CDT Clinical Support [facility] [address] [place] [address] for Advanced Medicine 1st [place] [address] Yahaira Chávez, PhD 12/09/2024 Orders Only [facility] Oncology [address] [facility] [address] [place] [phone] Kalli Cox MD Pancreatic adenocarcinoma (HCC) (Primary Dx) 12/09/2024 Telephone [facility] Imaging [address] [address] [place], [place] [address] Jenae Hui RN 12/09/2024 Telephone [facility] Oncology [address] [place] [address] [address] [place] [address] Gladis Ashley RN 12/09/2024 Orders Only [facility] Oncology [address] [place] [address] 5 [place] [address] Lissette Ortiz, AUSTEN Pancreatic adenocarcinoma (HCC) (Primary Dx) 12/08/2024 Telephone [facility] 1 [place] [address] Jackie Knight NP requesting hospice order 12/07/2024 Telephone [facility] Bone Marrow Transplant [address] [place] [address] 6 [place] [phone] Taylor Alvarez NP 12/06/2024 Documentation [facility] Oncology [address] [place] [address] 6 [place] [address] Segun Pulliam MD 12/06/2024 Telephone [facility] Oncology [address] [place] [address] Floor 5 [place] [address] Lissette Ortiz, AUSTEN 12/05/2024 Telephone [facility] Oncology [address] [place] [address] 5 [place] [address] Lissette Ortiz, AUSTEN 12/04/2024 5:00 PM CDT Clinical Support [address] [place] [address] Yahaira Chávez, PhD 12/02/2024 1:00 PM CDT Office Visit [facility] Oncology [address] [place] [address] [place] [address] Kalli Cox MD Pancreatic adenocarcinoma (HCC) (Primary Dx) 12/02/2024 12:30 PM CDT Clinical Support [facility] at [address] [place] [address] Pancreatic adenocarcinoma (HCC) 12/02/2024 11:00 AM CDT Office Visit [facility] Medicine Obstetrics and Gynecology [address] [facility] 7th Floor [address] [place] [address] Rakan Martinez MD 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 Dx); Feeling of incomplete bladder emptying 12/02/2024 Telephone [facility] Oncology [address] [facility] [address] [place] [phone] Rolando Connor RN 11/28/2024 11:00 AM CDT Clinical Support [facility] [address] [facility] Advanced Medicine 1st [place] [address] Yahaira Chávez, PhD 11/27/2024 2:50 PM CDT - 11/27/2024 11:59 PM CDT Hospital Encounter [facility] Imaging [address] [place] [address] Pancreatic adenocarcinoma (HCC) Discharge Disposition: Discharge to home or self care 11/26/2024 2:00 PM CDT Home Care Visit [address] [place] [address] Shilpi Eng, PT PT OASIS DISCHARGE 11/26/2024 11:00 AM CDT Home Care Visit [address] [place] [address] Edison Lopez RN SN DISCIPLINE DISCHARGE 11/26/2024 Home Care Visit [address] [place] [address] Fawad Anderson, RECORDS TECH CASE COMMUNICATION 11/25/2024 Home Care Visit [address] [place] [address] Ana Adams RN SN TRIAGE ENCOUNTER 11/25/2024 Home Care Visit [address] [place] [address] Criselda Merchant RN SN TRIAGE ENCOUNTER 11/20/2024 Home Care Visit [address] [place] [address] Criselda Merchant, AUSTEN SN TRIAGE ENCOUNTER 11/18/2024 1:00 PM CDT Clinical Support [facility] [address] [facility] 1st [place] [address] Yahaira Chávez, PhD 11/18/2024 Telephone [facility] Outpatient Health - Palliative Care [address] [facility] [place] [address] Gracia Kelsey, AUSTEN 11/18/2024 Home Care Visit [address] [place] [address] Fawad Anderson LCSW CASE COMMUNICATION 11/16/2024 9:00 AM CDT Home Care Visit [address] [place] [address] Shilpi Eng, PT PT INITIAL EVALUATION 11/14/2024 Home Care Visit [address] [place] [address] Gladis Staley, AUSTEN SN TRIAGE ENCOUNTER 11/14/2024 Telephone [facility] Oncology [address] [facility] Floor 5 [place] [address] Jamee Fine NP 11/13/2024 11:30 AM CDT Home Care Visit [address] [place] [address] Fawad Anderson LCSW EHS TEACHER INITIAL EVAL 11/13/2024 Home Care Visit [address] [place] [address] Fawad Anderson LCSW EHS TEACHER DISCIPLINE DISCHARGE 11/12/2024 10:07 AM CDT - 11/12/2024 11:59 PM CDT Hospital Encounter [facility] [address] [place] [address] Dysuria Discharge Disposition: Discharge to home or self care 11/12/2024 9:00 AM CDT Office Visit [facility] Medicine Obstetrics and Gynecology [address] [facility] 7th Floor [address] [place] [address] Jackie Szymanski MD Dysuria (Primary Dx); Vaginal atrophy; Uterine prolapse; Urinary retention 11/12/2024 Home Care Visit [address] [place] [address] Fawad Anderson LCSW CASE COMMUNICATION 11/12/2024 Home Care Visit [address] [place] [address] [address] [place] [address] Edison Lopez, AUSTEN CASE COMMUNICATION 11/11/2024 10:00 AM CDT Office Visit [facility] Oncology [address] [facility] [address] [place] [address] Kalli Cox MD Pancreatic adenocarcinoma (HCC) (Primary Dx); Vaginal spotting 11/11/2024 9:00 AM CDT Clinical Support [facility] at [facility] 10 [place] [address] Pancreatic adenocarcinoma (HCC) 11/11/2024 Telephone [facility] Oncology [address] [facility] Floor 6 [place] [address] Lissette Ortiz, AUSTEN 11/08/2024 Documentation [facility] [address] [place] [address] Ivet Domingo NP 11/08/2024 Telephone [facility] Oncology [address] [facility] Floor 6 [place] [address] Lissette Ortiz, AUSTEN 11/07/2024 Home Care Visit [address] [place] [address] Shipli Eng, PT CASE COMMUNICATION 11/06/2024 10:30 AM CDT Clinical Support [place] [id number] [facility] 1st [place] [address] Yahaira Chávez, PhD 11/05/2024 12:30 PM CDT - 11/05/2024 11:59 PM CDT Hospital Encounter [facility] Radiology Echo Lab [address] [place] [address] Pancreatic adenocarcinoma (HCC); Bilateral lower extremity edema Discharge Disposition: Discharge to home or self care 11/05/2024 Telephone [facility] [address] [facility] Floor 6 [place] [address] Lissette Ortiz, AUSTEN 11/05/2024 Telephone [facility] [address] [facility] [address] [place] [address] Talia Senra CMA 11/04/2024 12:30 PM CDT Home Care Visit [address] [place] [address] [address] [place] [address] Edison Lopez, AUSTEN SN OASIS START OF CARE 11/04/2024 Plan of Care Documentation [address] [place] [address] 11/01/2024 Telephone [facility] [address] [place] [address] [facility] 3rd Floor [address] [place] [address] Wesley Sanchez, RN 11/01/2024 Telephone [facility] [address] [facility] Outpatient [facility] 3rd Floor [address] [place] [address] Wesley Sanchez, RN 10/31/2024 Telephone [facility] [address] [facility] Floor 1, [address] [place] [address] Ediosn [place], AUSTEN 10/31/2024 Orders Only [facility] [address] [facility] Floor 1, [address] [place] [address] Edison [place]ona, AUSTEN 10/31/2024 Telephone [facility] [address] [facility] [address] [place] [address] Ashley Tello, RN 10/31/2024 Telephone [facility] [address] [facility] [address] [place] [address] Ashley Tello, RN 10/28/2024 10:15 AM CDT Office Visit [facility] Oncology [address] [place] [address] 100 [place] [address] Kalli Cox MD Pancreatic adenocarcinoma (HCC) (Primary Dx); Bilateral lower extremity edema 10/28/2024 9:15 AM CDT Clinical Support [facility] at [address] [place] [address] Pancreatic adenocarcinoma (HCC) 10/28/2024 Documentation [facility] Oncology [address] [place] [address] 100 [place] [address] Katt Cornejo, RECORDS TECH 10/25/2024 Orders Only [address] [address] Kalli Cox MD Vaginal spotting (Primary Dx) 10/23/2024 2:17 PM CDT - 10/23/2024 11:59 PM CDT Hospital Encounter [facility] Radiology 1 [place] [address] Discharge Disposition: Discharge to home or self care 10/22/2024 3:25 PM CDT Ancillary Procedure [facility] Vascular Lab IP 1 [facility] [address] [place] [address] 10/21/2024 3:30 PM CDT - 10/25/2024 3:25 PM CDT Hospital Encounter [address] [address] Khushman, MD Lara Gale Shaili Jayshil, MD Dehydration (Primary Dx); Cellulitis [...] Disposition: Discharge to home or self care 10/21/2024 12:00 PM CDT Ancillary Procedure [facility] Vascular Lab IP 1 [facility] [address] [place] [address] 10/20/2024 11:16 PM CDT - 10/20/2024 11:59 PM CDT Hospital Encounter [facility] [address] [place] [address] Discharge Disposition: Discharge to home or self care 10/20/2024 Telephone [facility] Oncology [address] [place] [address] Floor 5 [place] [address] Jamee Fine NP 10/19/2024 Telephone [facility] Oncology [address] [place] [address] Floor 6 [place] [address] 10/17/2024 10:45 AM CDT Infusion [facility] at [address] [address] Dehydration (Primary Dx); Pancreatic adenocarcinoma (HCC) 10/17/2024 9:45 AM CDT Lab [facility] [place] at [address] [address] Pancreatic adenocarcinoma (HCC) 10/16/2024 Telephone [facility] Oncology [facility] [facility] Floor 5 [place] [address] Lissette Ortiz RN 10/15/2024 10:00 AM CDT Infusion [facility] at [address] [place] [address] Pancreatic adenocarcinoma (HCC) (Primary Dx) 10/15/2024 Documentation [facility] [place] at [address] [place] [address] Billie Harry, WALTER 10/15/2024 Telephone [facility] Oncology [address] [place] [address] Floor 6 [place] [address] Kalli Cox MD 10/15/2024 Documentation [facility] Oncology [address] [place] [address] [address] [place] [address] Katt Cornejo LCSW 10/15/2024 Orders Only [facility] Oncology [address] [place] [address] Floor 5 [place] [address] Lissette Ortiz, AUSTEN Pancreatic adenocarcinoma (HCC) (Primary Dx) 10/14/2024 7:30 AM CDT Clinical Support [facility] at [address] [place] [address] Pancreatic adenocarcinoma (HCC) 10/14/2024 Orders Only [facility] Oncology [address] [place] [address] 5 [place] [address] Lissette Ortiz, AUSTEN Pancreatic adenocarcinoma (HCC) (Primary Dx) 10/14/2024 Documentation [facility] [place] at [address] [place] [address] Billie Harry, WALTER 10/14/2024 Documentation [facility] Oncology [address] [place] [address] 100 [place] [address] Katt Cornejo, RECORDS TECH from Last 3 Months Surgical History Surgery [...] materials from doctor or pharmacy Sometimes 11/26/2024 [facility] Utilities Answer Date Recorded In the past 12 months has th e [employer] gas, oil, or water [employer] threatened to shut off services in your [...] attend chur ch or episcopalian services? Never 10/22/2024 Do you belong to [...] a senior living (including now)? No 02/27/2023 Housing Stability Vital Sign Answer Devan e Recorded In the last 12 months, was t here a time when you were not able to pay the mortgage or rent on time? No 10/22/2024 In the past 12 months, how m any times have you moved where you were living? 0 10/22/2024 At any time in the past 12 m [facility], were you homeless or living in a senior living (including now)? No 10/22/2024 Personal Safety Answer Date Recorded Have you ever been in or are you currently in a harmful physical or emotional relationship or is someone making you feel afraid or unsafe? Denies 10/21/2024 Comments No Sex and Gender Information Value Date Recorded Sex Assigned at Not on file Legal Sex Female 6:30 PM PIT HAND Gender Identity Not on file Sexual [...] Sign Reading Time Taken Comments Blood Pressure 151/87 12/17/2024 9:31 AM CDT Pulse 73 12/17/2024 9:31 AM CDT Temperature 36.7 C (98 F) 12/17/2024 9:31 AM CDT Respiratory Rate 16 12/17/2024 9:31 AM CDT Oxygen Saturation 98% 12/17/2024 9:31 AM CDT Inhaled Oxygen Concentration - - [...] 10/20/2025 10/20/2024, 02/25/2023, 11/06/2022, Additional history exists Fall Risk Assessment 12/17/2025 12/17/2024, 10/20/2024, 09/27/2024, Additional history exists Breast Cancer Screening-Mammogram Discontinued 025, 09/09/2014 Medical Devices Implanted Type Area Sales Service Assistant Device Identifier Shelf Expiration Date Model / Serial / Lot Conmed Chris Viabil 10mm X 6cm Shortwire [id number] - [id number] - [id number] Implanted:Qty: 1 on 09/06/2024 by David Brewer MD at [facility] Stent N/A: Bile Duct Conmed Chris 06/19/2027 [id number] / [id number] / [employer] Excela Low Porfile Power Port 8fr 1.6mm 1 Lumen [id number] - [id number] Implanted:Qty: 1 on 10/10/2024 at [facility] [employer] 05/07/2029 [id number] / / [id number] Procedures Procedure Name Priority Date/Time Associated Diagnosis Comments US ABDOMEN LIMITED Schedule Routine, Read Routine (OP Routine) 12/17/2024 9:53 AM CDT Pancreatic adenocarcinoma (HCC) EGFR STAT 12/02/2024 1:27 PM CDT Pancreatic adenocarcinoma (HCC) DIFFERENTIAL AUTO Routine 12/02/2024 1:27 PM CDT Pancreatic adenocarcinoma (HCC) CBC WITH AUTO DIFFERENTIAL Routine 12/02/2024 1:27 PM CDT Pancreatic adenocarcinoma (HCC) COMPREHENSIVE METABOLIC PANEL STAT 12/02/2024 1:27 PM CDT Pancreatic adenocarcinoma (HCC) CANCER [...] adenocarcinoma (HCC) CBC WITH AUTO DIFFERENTIAL Routine 11/11/2024 9:30 AM CDT Pancreatic adenocarcinoma (HCC) COMPREHENSIVE METABOLIC PANEL STAT 11/11/2024 9:30 AM CDT Pancreatic adenocarcinoma (HCC) TRANSTHORACIC ECHO (TTE) COMPLETE W DOPPLER/CF WO CONTRAST Routine 11/05/2024 2:12 PM CDT Pancreatic adenocarcinoma (HCC) Bilateral lower extremity edema EGFR STAT 10/28/2024 9:38 AM CDT Pancreatic adenocarcinoma (HCC) DIFFERENTIAL AUTO Routine 10/28/2024 9:38 AM CDT Pancreatic adenocarcinoma (HCC) CBC WITH AUTO DIFFERENTIAL Routine 10/28/2024 9:38 AM CDT Pancreatic adenocarcinoma (HCC) COMPREHENSIVE METABOLIC PANEL STAT 10/28/2024 9:38 AM CDT Pancreatic adenocarcinoma (HCC) POCT GLUCOSE DEVICE Routine 10/25/2024 11:40 AM CDT US TRANSVAGINAL IP Routine 10/25/2024 10:30 AM CDT POCT GLUCOSE DEVICE Routine 10/25/2024 7:43 AM CDT EGFR Routine 10/25/2024 1:45 AM CDT DIFFERENTIAL AUTO Routine 10/25/2024 1:45 AM CDT PHOSPHORUS Routine 10/25/2024 1:45 AM CDT COMPREHENSIVE METABOLIC PANEL Routine 10/25/2024 1:45 AM CDT CBC WITH AUTO DIFFERENTIAL Routine 10/25/2024 1:45 AM CDT POCT GLUCOSE DEVICE Routine 10/25/2024 1:43 AM CDT POCT GLUCOSE DEVICE Routine 10/24/2024 8:55 PM CDT POCT GLUCOSE DEVICE Routine 10/24/2024 6:11 PM CDT DIAGNOSTIC MAMMOGRAM BILATERAL W AYAD IP Routine 10/24/2024 4:05 PM [...] 1:50 AM CDT COMPREHENSIVE METABOLIC PANEL Routine 10/24/2024 1:50 AM CDT CBC WITH AUTO DIFFERENTIAL Routine 10/24/2024 1:50 AM CDT LACTATE DEHYDROGENASE Routine 10/24/2024 1:50 AM CDT URIC ACID Routine 10/24/2024 1:50 AM CDT TYPE AND SCREEN Timed 10/24/2024 1:50 AM CDT VANCOMYCIN LEVEL TROUGH Timed 10/24/19 11:26 PM CDT POCT GLUCOSE DEVICE Routine 10/23/2024 8:27 PM CDT POCT GLUCOSE DEVICE Routine 10/23/2024 5:50 PM CDT FL MODIFIED BARIUM SWALLOW W VIDEO IP Routine 10/23/2024 3:00 PM CDT TECHNICIAN PLANT AND MAINTENANCE EVALUATE AND TREAT VIDEOFLUOROSCOPIC SWALLOW STUDY Routine 10/23/2024 2:38 PM CDT POCT GLUCOSE DEVICE Routine 10/23/2024 11:58 AM CDT POCT GLUCOSE DEVICE Routine 10/23/2024 7:26 AM CDT EGFR Routine 10/23/2024 12:28 AM CDT DIFFERENTIAL AUTO Routine 10/23/2024 12:28 AM CDT PHOSPHORUS Routine 10/23/2024 12:28 AM CDT COMPREHENSIVE METABOLIC PANEL Routine 10/23/2024 12:28 AM CDT CBC WITH AUTO DIFFERENTIAL Routine 10/23/2024 12:28 AM CDT POCT GLUCOSE DEVICE Routine 10/22/2024 8:01 PM CDT POCT GLUCOSE DEVICE Routine 10/22/2024 5:14 PM CDT US VEIN DUPLEX UPPER EXTREMITY LEFT LIMITED IP Routine 10/22/2024 4:42 PM [...] 2:51 AM CDT COMPREHENSIVE METABOLIC PANEL Routine 10/22/2024 2:51 AM CDT TYPE AND SCREEN Timed 10/22/2024 2:50 AM CDT POCT GLUCOSE DEVICE Routine 10/22/2024 2:48 AM CDT POCT GLUCOSE DEVICE Routine 10/22/2024 2:47 AM CDT DIFFERENTIAL AUTO Routine 10/22/2024 2:30 AM CDT CBC WITH AUTO DIFFERENTIAL Routine 10/22/2024 2:30 AM CDT EGFR STAT 10/21/2024 9:15 PM CDT DIFFERENTIAL AUTO STAT 10/21/2024 9:15 PM CDT PHOSPHORUS STAT 10/21/2024 9:15 PM CDT MAGNESIUM STAT 10/21/2024 9:15 PM CDT COMPREHENSIVE METABOLIC PANEL STAT 10/21/2024 9:15 PM CDT CBC WITH AUTO DIFFERENTIAL STAT 10/21/2024 9:15 PM CDT INFECTION PREVENTION MRSA ONLY (STAPHYLOCOCCUS AUREUS) CULTURE Routine 10/21/2024 9:15 PM CDT POCT GLUCOSE DEVICE Routine 10/21/2024 8:35 PM CDT ECG 12-LEAD STAT 10/21/2024 8:17 PM CDT US VEIN DUPLEX LOWER EXTREMITY BILATERAL COMPLETE ED Urgent/IP Urgent 10/21/2024 4:02 PM CDT TRANSFUSE RED BLOOD CELLS Timed 10/21/2024 1:07 PM CDT B CHECK SAMPLE STAT 10/21/2024 11:17 AM CDT TYPE AND SCREEN Timed 10/21/2024 9:36 AM CDT PREPARE RBC Timed 10/21/2024 9:27 AM CDT EGFR Timed 10/21/2024 6:50 AM CDT DIFFERENTIAL AUTO Timed 10/21/2024 6:50 AM CDT COMPREHENSIVE METABOLIC PANEL Timed 10/21/2024 6:50 AM CDT CBC WITH AUTO DIFFERENTIAL Timed 10/21/2024 6:50 AM CDT PROTIME-INR Routine 10/21/2024 12:16 AM CDT URINALYSIS AND REFLEX TO MICROSCOPIC AND CULTURE Routine 10/21/2024 12:16 AM CDT XR CHEST PA LATERAL 2 VIEWS ED Urgent/IP Urgent 10/21/2024 12:07 AM CDT POC BLOOD GAS AND CHEMISTRIES, ARTERIAL Routine 10/20/2024 11:05 PM CDT EGFR Routine 10/20/2024 10:38 PM CDT DIFFERENTIAL AUTO STAT 10/20/2024 10:38 PM CDT COMPREHENSIVE METABOLIC PANEL Routine 10/20/2024 10:38 PM CDT CBC WITH AUTO DIFFERENTIAL STAT 10/20/2024 10:38 PM CDT BLOOD CULTURE Routine 10/20/2024 10:38 PM CDT BLOOD CULTURE Routine 10/20/2024 10:38 PM CDT RESPIRATORY PATHOGEN PANEL Routine 10/20/2024 10:38 PM CDT EGFR Routine 10/17/2024 10:06 AM CDT Pancreatic adenocarcinoma (HCC) DIFFERENTIAL AUTO Routine 10/17/2024 10:06 AM CDT Pancreatic adenocarcinoma (HCC) COMPREHENSIVE METABOLIC PANEL Routine 10/17/2024 10:06 AM CDT Pancreatic adenocarcinoma (HCC) CBC WITH AUTO DIFFERENTIAL Routine 10/17/2024 10:06 AM CDT Pancreatic adenocarcinoma (HCC) TSH [...] 10/14/2024 8:30 AM CDT Pancreatic adenocarcinoma (HCC) COMPREHENSIVE METABOLIC PANEL STAT 10/14/2024 8:30 AM CDT Pancreatic adenocarcinoma (HCC) from Last 3 Months Results * US Abdomen Limited (12/17/2024 9:53 AM CDT) Anatomical Region Laterality Modality Abdomen N/A Ultrasound 12/17/2024 10:0 4 AM CDT Impressions 12/17/2024 10:04 AM CDT 1. As described above. Electronically signed by: Elissa Arguello M.D. Narrative 12/17/2024 10:04 AM CDT EXAMINATION: LIMITED ABDOMINAL SONOGRAM HISTORY: 73-year-old female with pancreatic adenocarcinoma with suspected malignant ascites presents for possible tunneled peritoneal catheter placement. COMPARISON: None FINDINGS: Limited ultrasound abdomen of the 4 quadrants and midline lower pelvis was obtained which showed minimal amount of ascites which was not safe for placing a tunneled peritoneal catheter or for doing a safe paracentesis at this time. Procedure Note Elissa Arguello MD - 12/17/2024 EXAMINATION: LIMITED ABDOMINAL SONOGRAM HISTORY: 73-year-old female with pancreatic adenocarcinoma with suspected malignant ascites presents for possible tunneled peritoneal catheter placement. COMPARISON: None FINDINGS: Limited ultrasound abdomen of the 4 quadrants and midline lower pelvis was obtained which showed minimal amount of ascites which was not safe for placing a tunneled peritoneal catheter or for doing a safe paracentesis at this time. IMPRESSION: 1. As described above. Electronically signed by: Elissa Arguello M.D. Kalli Cox MD IMG US PROCEDURES Final R esult * eGFR (12/02/2024 1:27 PM CDT) eGFR [...] was last reviewed 2021. Testing performed by: [facility], [address] [place] [address] Blood 12/02/2024 1:27 PM CDT 12/02/2024 1:53 PM CDT Kalli Cox MD LAB BLOOD ORDERABLES Gail l Result [facility] [address] [facility]. Department [place] [address] * Differential, auto (12/02/2024 1:27 PM CDT) Neutrophil abs 3.69 1.50 - 6.50 K/cumm Comment:Testing performed by : [facility], [address], [address] [place] [address] Imm gran abs 0.02 0.00 - 0.10 K/cumm CERNER [facility] Comment:Testing performed by : [facility], [facility], [address] [place] [address] Lymphocyte abs 1.15 0.80 - 3.30 K/cumm CERNER [facility] Comment:Testing performed by : [facility], [facility], [address] [place] [address] Monocyte abs 0.57 0.20 - 0.80 K/cumm CERNER [facility] Comment:Testing performed by : [facility], [facility], [address] [place] [address] Eosinophil abs 0.10 0.00 - 0.50 K/cumm CERNER [facility] Comment:Testing performed by : [facility], [facility], [address] [place] [address] Basophil abs 0.05 0.00 - 0.10 K/cumm CERNER [facility] Comment:Testing performed by : [facility], [facility], [address] [place] [address] Neutrophil pct 66.1 % CERNER [facility] Comment: Interpretive Data Percent cell count reference ranges are not reported, since discordance with absolute values may lead to misinterpretation of CBC data. Current Interpretive Data was last revised on 2017. Testing performed by: [facility], [facility], [address] [place] [address] Imm gran pct 0.4 % CERNER [facility] Comment: Interpretive Data Percent cell count reference ranges are not reported, since discordance with absolute values may lead to misinterpretation of CBC data. Current Interpretive Data was last revised on 2017. Testing performed by: [facility], [facility], [address] [place] [address] Lymphocyte pct 20.6 % CERNER [facility] Comment: Interpretive Data Percent cell count reference ranges are not reported, since discordance with absolute values may lead to misinterpretation of CBC data. Current Interpretive Data was last revised on 2017. Testing performed by: [facility], [facility], [address] [place] [address] Monocyte pct 10.2 % ENRIQUE TORRES Comment: Interpretive Data Percent cell count reference ranges are not reported, since discordance with absolute values may lead to misinterpretation of CBC data. Current Interpretive Data was last revised on 2017. Testing performed by: [facility], [facility], [address] [place] [address] Eosinophil pct 1.8 % ENRIQUE TORRES Comment: Interpretive Data Percent cell count reference ranges are not reported, since discordance with absolute values may lead to misinterpretation of CBC data. Current Interpretive Data was last revised on 2017. Testing performed by: [facility], [facility], [address] [place] [address] Basophil pct 0.9 % ENRIQUE TORRES Comment: Interpretive Data Percent cell count reference ranges are not reported, since discordance with absolute values may lead to misinterpretation of CBC data. Current Interpretive Data was last revised on 2017. Testing performed by: [facility], [facility], [address] [place] [address] Blood 12/02/2024 1:27 PM CDT 12/02/2024 1:29 PM CDT Moh'Maurisio Cox MD LAB BLOOD ORDERABLES Gail l Result [facility] [address] [facility] Department [place] [address] * (ABNORMAL) CBC with auto differential (12/02/2024 1:27 PM CDT) WBC 5.58 3.80 - 9.90 K/cumm Comment:Testing performed by : [facility], [facility], [address] [place] [address] Hgb 8.1(L) 11.9 - 15.5 g/dL ENRIQUE TORRES Comment:Testing performed by : [place] [address], [address], [place] [address] Hct 25.5(L) 35.6 - 45.5 % CERNER [facility] Comment:Testing performed by : [place] [address], [address], [place] [address] Plt 224 150 - 400 K/cumm CERNER B[facility] Comment:Testing performed by : [place] [address], [address], [place] [address] MPV 9.5 9.1 - 12.3 fL CERNER [facility] Comment:Testing performed by : [place] [address] [place] [address] RBC 2.72(L) 3.90 - 5.20 M/cumm CERNER [facility] Comment:Testing performed by : [place] [address], [place] [address] MCV 93.8 81.3 - 96.4 fL CERNER [facility] Comment:Testing performed by : [place] [address], [place] [address] MCH 29.8 27.1 - 33.3 pg CERNER B[facility] Comment:Testing performed by : [place] [address] [place] [address] MCHC 31.8(L) 32.3 - 35.7 g/dL CERNER [facility] Comment:Testing performed by : [place] [address], [address], [place] [address] RDW CV 15.5(H) 11.1 - 14.9 % CERNER B[facility] Comment:Testing performed by : [place] [address], [address], [place] [address] RDW SD 53.5(H) 35.7 - 48.1 fL CERNER B[facility] Comment:Testing performed by : [place] [address], [place] [address] ANC Prelim 3.69 1.50 - 6.50 K/cumm ENRIQUE BJWCH Comment: Interpretive Data The rapid ANC is a preliminary automated count and may vary from the final ANC (Neut Abs) reported in the WBC differential that follows. Current interpretive data was last revised 2024. Testing performed by: [facility], [address] [address], [address] [place] [address] Blood 12/02/2024 1:27 PM CDT 12/02/2024 1:29 PM CDT [facility] MD LAB BLOOD ORDERABLES Gail l Result Performing Organization Address City/[facility] Co de Phone Number ENRIQUE [facility] [address] [employer] [address] * Cancer antigen 19-9 (12/02/2024 1:27 PM CDT) Pathologist [facility] CA 19-9 ag 19.8 0.0 - 35.0 units/mL Comment: Interpretive Data The Sree CA 19-9 assay procedure was used. Results from different manufacturers or methods may not be comparable. Serial testing should be performed using the same method. Testing performed by: [facility], [address] [place] [address]., [address] Blood 12/02/2024 1:27 PM CDT 12/02/2024 6:11 PM CDT [facility] MD LAB BLOOD ORDERABLES Gail l Result [facility] [address] [employer] [facility] [place] [address] * (ABNORMAL) Comprehensive metabolic panel (12/02/2024 1:27 PM CDT) Pathologist [facility] Sodium 137 135 - 145 mmol/L Comment:Testing performed by : [facility], [address], [place] [address] Potassium, pl 4.1 3.3 - 4.9 mmol/L CERNER B[facility] Comment:Testing performed by : [facility], [address], [place] [address] Chloride 101 97 - 110 mmol/L CERNER B[facility] Comment:Testing performed by : [facility], [address], [place] [address] CO2 28 22 - 32 mmol/L CERNER [facility] Comment:Testing performed by : [facility], [address], [place] [address] Anion gap 8 2 - 15 mmol/L CERNER [facility] Comment:Testing performed by : [facility], [address], [place] [address] BUN 14 6 - 25 mg/dL CERNER [facility] Comment:Testing performed by : [facility], [address], [place] [address] Creatinine 0.70 0.60 - 1.10 mg/dL CERNER [facility] Comment:Testing performed by : [facility], [address], [place] [address] Glucose 89 70 - 199 mg/dL CERNER [...] was last revised 2022. Testing performed by: [facility], [address], [place] [address] Calcium 8.8 8.5 - 10.3 mg/dL CERNER [facility] Comment:Testing performed by : [facility], [address], [place] [address] Bilirubin, total 0.4 0.1 - 1.2 mg/dL CERNER B[facility] Comment:Testing performed by : [facility], [address], [place] [address] Protein, pl 5.9(L) 6.5 - 8.5 g/dL CERNER [facility] Comment:Testing performed by : [facility], [address], [place] [address] Albumin 3.1(L) 3.5 - 5.0 g/dL CERNER [facility] Comment:Testing performed by : [facility], [address], [place] [address] Alk phos 83 40 - 130 Units/L CERMARCELO BJW[facility] Comment:Testing performed by : [facility], [address], [place] [address] ALT 11 7 - 45 Units/L CERMARCELO BJW[facility] Comment:Testing performed by : [facility], [address], [place] [address] AST 22 10 - 45 Units/L CERMARCELO BJWCH Comment:Testing performed by : [facility], [address], [place] [address] Blood 12/02/2024 1:27 PM CDT 12/02/2024 1:53 PM CDT Moh'Maurisio Cox MD LAB BLOOD ORDERABLES Gail l Result [facility] [address] [place] [address] * CT Chest Abdomen Pelvis W Contrast [...] metastases. Electronically signed by: Aubrey Grigsby M.D. [facility] MD IMG CT PROCEDURES Final R esult * Urine culture Urine, clean voided (11/12/2024 1:12 PM CDT) Report Final Report: No growth Urine, clean voided 11/12/2024 1:12 PM CDT 11/12/2024 1:25 PM CDT Domenic NUNEZ [facility] - 11/13/2024 3:55 PM CDT Testing performed by [facility] Microbiology Laboratory ([phone]) Jackie Szymanski MD LAB MICROBIOLOGY - GEN ERAL ORDERABLES Final Result [facility] [place] [address] * eGFR (11/11/2024 9:30 AM CDT) eGFR [...] was last reviewed 2021. Testing performed by: [facility], [address] [place] [address] Blood 11/11/2024 9:30 AM CDT 11/11/2024 10:00 AM CDT [facility] Cox MD LAB BLOOD ORDERABLES Gail l Result [facility] [address] [facility]. Department [place] [address] * (ABNORMAL) Differential, auto (11/11/2024 9:30 AM CDT) Neutrophil abs 3.94 1.50 - 6.50 K/cumm Comment:Testing performed by : [facility], [address], [address] [place] [address] Imm gran abs 0.03 0.00 - 0.10 K/cumm ENRIQUE BETANCOURTWCH Comment:Testing performed by : [facility], [facility], [address] [place] [address] Lymphocyte abs 1.28 0.80 - 3.30 K/cumm CERNER B[facility] Comment:Testing performed by : [facility], [facility], [address] [place] [address] Monocyte abs 0.92(H) 0.20 - 0.80 K/cumm CERNER B[facility] Comment:Testing performed by : [facility], [facility], [address] [place] [address] Eosinophil abs 0.07 0.00 - 0.50 K/cumm CERNER [facility] Comment:Testing performed by : [facility], [facility], [address] [place] [address] Basophil abs 0.06 0.00 - 0.10 K/cumm CERNER B[facility] Comment:Testing performed by : [facility], [facility], [address] [place] [address] Neutrophil pct 62.5 % CERNER [facility] Comment: Interpretive Data Percent cell count reference ranges are not reported, since discordance with absolute values may lead to misinterpretation of CBC data. Current Interpretive Data was last revised on 2017. Testing performed by: [facility], [facility], [address] [place] [address] Imm gran pct 0.5 % CERNER [facility] Comment: Interpretive Data Percent cell count reference ranges are not reported, since discordance with absolute values may lead to misinterpretation of CBC data. Current Interpretive Data was last revised on 2017. Testing performed by: [facility], [facility], [address] [place] [address] Lymphocyte pct 20.3 % CERNER [facility] Comment: Interpretive Data Percent cell count reference ranges are not reported, since discordance with absolute values may lead to misinterpretation of CBC data. Current Interpretive Data was last revised on 2017. Testing performed by: [facility], [facility], [address] [place] [address] Monocyte pct 14.6 % CERNER [facility] Comment: Interpretive Data Percent cell count reference ranges are not reported, since discordance with absolute values may lead to misinterpretation of CBC data. Current Interpretive Data was last revised on 2017. Testing performed by: [facility], [facility], [address] [place] [address] Eosinophil pct 1.1 % ENRIQUE TORRES Comment: Interpretive Data Percent cell count reference ranges are not reported, since discordance with absolute values may lead to misinterpretation of CBC data. Current Interpretive Data was last revised on 2017. Testing performed by: [facility], [facility], [address] [place] [address] Basophil pct 1.0 % ENRIQUE TORRES Comment: Interpretive Data Percent cell count reference ranges are not reported, since discordance with absolute values may lead to misinterpretation of CBC data. Current Interpretive Data was last revised on 2017. Testing performed by: [facility], [address] [place] [address] Blood 11/11/2024 9:30 AM CDT 11/11/2024 9:41 AM CDT [facility]io Cox MD LAB BLOOD ORDERABLES Gail garcia Result [facility] [address] [facility]. Department [place] [address] * (ABNORMAL) CBC with auto differential (11/11/2024 9:30 AM CDT) WBC 6.30 3.80 - 9.90 K/cumm Comment:Testing performed by : [facility], [facility], [address] [place] [address] Hgb 8.3(L) 11.9 - 15.5 g/dL ENRIQUE TORRES Comment:Testing performed by : [facility], [facility], [address] [place] [address] Hct 26.1(L) 35.6 - 45.5 % CERNER B[facility] Comment:Testing performed by : [facility], [facility], [address], [place] [address] Plt 290 150 - 400 K/cumm CERNER BJWCH Comment:Testing performed by : [facility] 2, [address] [place] [address] MPV 9.8 9.1 - 12.3 fL CERNER BJW[facility] Comment:Testing performed by : [place] [address], [address], [place] [address] RBC 2.83(L) 3.90 - 5.20 M/cumm CERNER BJW[facility] Comment:Testing performed by : [place] [address], [place] [address] MCV 92.2 81.3 - 96.4 fL CERNER B[facility] Comment:Testing performed by : [place] [address], [place] [address] MCH 29.3 27.1 - 33.3 pg CERNER B[facility] Comment:Testing performed by : [address] [place] [address] MCHC 31.8(L) 32.3 - 35.7 g/dL CERNER [facility] Comment:Testing performed by : [place] [address] [place] [address] RDW CV 16.1(H) 11.1 - 14.9 % CERNER B[facility] Comment:Testing performed by : [place] [address], [address] [place] [address] RDW SD 54.2(H) 35.7 - 48.1 fL CERNER B[facility] Comment:Testing performed by : [place] [address], [address], [place] [address] ANC Prelim 3.94 1.50 - 6.50 K/cumm CERNER BJW[facility] Comment: Interpretive Data The rapid ANC is a preliminary automated count and may vary from the final ANC (Neut Abs) reported in the WBC differential that follows. Current interpretive data was last revised 2024. Testing performed by: [facility], [address], [address] [place] [address] Blood 11/11/2024 9:30 AM CDT 11/11/2024 9:41 AM CDT [facility] Cox MD LAB BLOOD ORDERABLES Gail l Result [facility] [address] [place] [address] * (ABNORMAL) Comprehensive metabolic panel (11/11/2024 9:30 AM CDT) Sodium 137 135 - 145 mmol/L Comment:Testing performed by : [facility], [address], [place] [address] Potassium, pl 3.8 3.3 - 4.9 mmol/L [facility] Comment:Testing performed by : [facility], [address] [place] [address] Chloride 99 97 - 110 mmol/L [facility] Comment:Testing performed by : [facility], [address] [place] [address] CO2 29 22 - 32 mmol/L CERMARCELO BETANCOURTWCH Comment:Testing performed by : [facility], [address] [place] [address] Anion gap 9 2 - 15 mmol/L ENRIQUE BJWCH Comment:Testing performed by : [facility], [address] [place] [address] BUN 12 6 - 25 mg/dL CERMARCELO BJWCH Comment:Testing performed by : [facility], [address] [place] [address] Creatinine 0.80 0.60 - 1.10 mg/dL CERMARCELO BJWCH Comment:Testing performed by : [facility], [address], [place] [address] Glucose 110 70 - 199 mg/dL CERNER [...] was last revised 2022. Testing performed by: [facility], [address], [place] [address] Calcium 9.0 8.5 - 10.3 mg/dL CERNER [facility] Comment:Testing performed by : [facility], [address], [place] [address] Bilirubin, total 0.3 0.1 - 1.2 mg/dL CERNER [facility] Comment:Testing performed by : [facility], [address], [place] [address] Protein, pl 6.0(L) 6.5 - 8.5 g/dL CERNER [facility] Comment:Testing performed by : [facility], [address], [place] [address] Albumin 3.1(L) 3.5 - 5.0 g/dL CERNER [facility] Comment:Testing performed by : [facility], [address], [place] [address] Alk phos 140(H) 40 - 130 Units/L CERNER [facility] Comment:Testing performed by : [facility], [address], [place] [address] ALT 13 7 - 45 Units/L CERNER [facility] Comment:Testing performed by : [facility], [address], [place] [address] AST 23 10 - 45 Units/L CERNER B[facility] Comment:Testing performed by : [facility], [address], [place] [address] Blood 11/11/2024 9:30 AM CDT 11/11/2024 10:00 AM CDT us Kalli Cox MD LAB BLOOD ORDERABLES Gail radha Result EN[facility] [address] [facility]. [place] [address] * TRANSTHORACIC ECHO (TTE) COMPLETE W DOPPLER/CF WO CONTRAST (11/05/2024 2:12 PM CDT) EF Mod BP 74 % CONS SCIMAGE Anatomical Region Laterality Modality Ultrasound 11/05/2024 1:18 PM CDT Narrative 11/06/2024 2:05 PM CDT [facility] [place] [address] Transthoracic Echocardiographic Report Patient Name: SUSNANAH CAMARGO A : 1950 (73y 10m) Gender: F Study Date: 11/05/2024 13:18:30 Ht(Inch): 61 Wt(Lb): 162.04 BSA: 1.78 Edge Cutter: SHANNA Location: [facility] Order Provider: KALLI COX Heart Rate: [...] Note Jose J Hernandez MD - 11/06/2024 [facility] [place] [address] Transthoracic Echocardiographic Report Patient Name: SUSANNAH CAMARGO A : 1950 (73y 10m) Gender: F Study Date: 11/05/2024 13:18:30 Ht(Inch): 61 Wt(Lb): 162.04 BSA: 1.78 Edge Cutter: SHANNA Location: [facility] Order Provider: KALLI COX Heart [...] LA Length 4C 6.24 cm MV Decel [id number] msec [ 104.00 - 258.00 ] LA [...] Jose J Hernandez MD 11/06/2024 14:05:24 CDT [facility]io Cox MD CV ECHO PROCEDURES Final Result [...] was last reviewed 2021. Testing performed by: [facility], [address] [place] [address] Blood 10/28/2024 9:38 AM CDT 10/28/2024 10:02 AM CDT Kalli Cox MD LAB BLOOD ORDERABLES Gail radha Result [facility] [address] [facility]. [place] [address] * Differential, auto (10/28/2024 9:38 AM CDT) Neutrophil abs 1.73 1.50 - 6.50 K/cumm Comment:Testing performed by : [facility] 2, [address] [place] [address] Imm gran abs 0.02 0.00 - 0.10 K/cumm CERMARCELO [facility] Comment:Testing performed by : [facility] [address], [address] [place] [address] Lymphocyte abs 0.98 0.80 - 3.30 K/cumm [facility]ER[facility]ARC[facility]O [facility] Comment:Testing performed by : [facility] 2, [address] [place] [address] Monocyte abs 0.56 0.20 - 0.80 K/cumm [facility]ERMARCELO [facility] Comment:Testing performed by : [facility] 2, [address] [place] [address] Eosinophil abs 0.04 0.00 - 0.50 K/cumm ENRIQUE [facility] Comment:Testing performed by : [facility] [address], [address] [place] [address] Basophil abs 0.01 0.00 - 0.10 K/cumm ENRIQUE [facility] Comment:Testing performed by : [facility], [address] [place] [address] Neutrophil pct 51.8 % [facility] Comment: Interpretive Data Percent cell count reference ranges are not reported, since discordance with absolute values may lead to misinterpretation of CBC data. Current Interpretive Data was last revised on 2017. Testing performed by: [facility], [facility], [address] [place] [address] Imm gran pct 0.6 % CERNER [facility] Comment: Interpretive Data Percent cell count reference ranges are not reported, since discordance with absolute values may lead to misinterpretation of CBC data. Current Interpretive Data was last revised on 2017. Testing performed by: [facility], [facility], [address] [place] [address] Lymphocyte pct 29.3 % CERNER [facility] Comment: Interpretive Data Percent cell count reference ranges are not reported, since discordance with absolute values may lead to misinterpretation of CBC data. Current Interpretive Data was last revised on 2017. Testing performed by: [facility], [facility], [address] [place] [address] Monocyte pct 16.8 % CERNER [facility] Comment: Interpretive Data Percent cell count reference ranges are not reported, since discordance with absolute values may lead to misinterpretation of CBC data. Current Interpretive Data was last revised on 2017. Testing performed by: [facility], [facility], [address] [place] [address] Eosinophil pct 1.2 % CERNER [facility] Comment: Interpretive Data Percent cell count reference ranges are not reported, since discordance with absolute values may lead to misinterpretation of CBC data. Current Interpretive Data was last revised on 2017. Testing performed by: [facility], [facility], [address] [place] [address] Basophil pct 0.3 % CERNER [facility] Comment: Interpretive Data Percent cell count reference ranges are not reported, since discordance with absolute values may lead to misinterpretation of CBC data. Current Interpretive Data was last revised on 2017. Testing performed by: [facility], [facility], [address] [place] [address] Blood 10/28/2024 9:38 AM CDT 10/28/2024 9:40 AM CDT us Moh'Maurisio Cox MD LAB BLOOD ORDERABLES Gail garcia Result ENRIQUE [facility] [address] [facility] of Laboratories [place], [place] [id number] * (ABNORMAL) CBC with auto differential (10/28/2024 9:38 AM CDT) WBC 3.34(L) 3.80 - 9.90 K/cumm Comment:Testing performed by : [place] [address] [place] [address] Hgb 8.2(L) 11.9 - 15.5 g/dL [facility] Comment:Testing performed by : [place] [address] [place] [address] Hct 26.3(L) 35.6 - 45.5 % [facility] Comment:Testing performed by : [place] [address] [place] [address] Plt 218 150 - 400 K/cumm [facility] Comment:Testing performed by : [place] [address], [place] [address] MPV 8.8(L) 9.1 - 12.3 fL [facility] Comment:Testing performed by : [place] [address] [place] [address] RBC 2.89(L) 3.90 - 5.20 M/cumm ENRIQUE [facility] Comment:Testing performed by : [place] [address] [place] [address] MCV 91.0 81.3 - 96.4 fL [facility]QUE [facility] Comment:Testing performed by : [place] [address], [place] [address] MCH 28.4 27.1 - 33.3 pg ENRIQUE [facility] Comment:Testing performed by : [place] [address], [address] [place] [address] MCHC 31.2(L) 32.3 - 35.7 g/dL ENRIQUE TORRES Comment:Testing performed by : [facility], [facility], [address] [place] [address] RDW CV 14.1 11.1 - 14.9 % ENRIQUE TORRES Comment:Testing performed by : [facility], [facility], [address] [place] [address] RDW SD 47.1 35.7 - 48.1 fL ENRIQUE TORRES Comment:Testing performed by : [facility], [facility], [address] [place] [address] ANC Prelim 1.73 1.50 - 6.50 K/cumm ENRIQUE TORRES Comment: Interpretive Data The rapid ANC is a preliminary automated count and may vary from the final ANC (Neut Abs) reported in the WBC differential that follows. Current interpretive data was last revised 2024. Testing performed by: [facility], [facility], [address] [place] [address] Blood 10/28/2024 9:38 AM CDT 10/28/2024 9:40 AM CDT [facility]Maurisio Cox MD LAB BLOOD ORDERABLES Gail l Result GILMARCELO [facility] [address] [place] [address] * (ABNORMAL) Comprehensive metabolic panel (10/28/2024 9:38 AM CDT) Sodium 137 135 - 145 mmol/L Comment:Testing performed by : [facility], [address] [place] [address] Potassium, pl 3.6 3.3 - 4.9 mmol/L ENRIQUE TORRES Comment:Testing performed by : [facility], [address], [place] [address] Chloride 104 97 - 110 mmol/L CERNER [facility] Comment:Testing performed by : [facility], [address], [place] [address] CO2 28 22 - 32 mmol/L CERNER [facility] Comment:Testing performed by : [facility], [address], [place] [address] Anion gap 5 2 - 15 mmol/L CERNER [facility] Comment:Testing performed by : [facility], [address], [place] [address] BUN 9 6 - 25 mg/dL CERNER [facility] Comment:Testing performed by : [facility], [address], [place] [address] Creatinine 0.72 0.60 - 1.10 mg/dL CERNER [facility] Comment:Testing performed by : [facility], [address], [place] [address] Glucose 87 70 - 199 mg/dL CERNER [...] was last revised 2022. Testing performed by: [facility], [address], [place] [address] Calcium 8.9 8.5 - 10.3 mg/dL CERNER [facility] Comment:Testing performed by : [facility], [address], [place] [address] Bilirubin, total 0.4 0.1 - 1.2 mg/dL CERNER [facility] Comment:Testing performed by : [facility], [address], [place] [address] Protein, pl 5.4(L) 6.5 - 8.5 g/dL CERNER [facility] Comment:Testing performed by : [facility], [address], [place] [address] Albumin 3.1(L) 3.5 - 5.0 g/dL CERNER [facility] Comment:Testing performed by : [facility], [address], [place] [address] Alk phos 189(H) 40 - 130 Units/L CERNER [facility] Comment:Testing performed by : [facility], [address], [place] [address] ALT 12 7 - 45 Units/L CERNER [facility] Comment:Testing performed by : [facility], [address], [place] [address] AST 20 10 - 45 Units/L CERNER [facility] Comment:Testing performed by : [facility], [address], [place] [address] Blood 10/28/2024 9:38 AM CDT 10/28/2024 10:02 AM CDT us Kalli Cox MD LAB BLOOD ORDERABLES Gail l Result Performing Organization Address City/[facility]/ZIP Co de Phone Number [facility] [address] Department [place] [address] * POCT glucose (10/25/2024 11:40 AM CDT) Glucose, POC 80 70 - 199 mg/dL Blood 10/25/2024 11:4 0 AM CDT 10/25/2024 11:40 AM CDT us Tana Coronado MD LAB POCT ORDERABLES - DEVICE Final Result [facility] One [facility] [place] [address] * US Transvaginal (10/25/2024 10:30 AM CDT) [...] pelvis, similar to CT 09/13/2024. Procedure Note Dra Oconnell MD - 10/25/2024 EXAMINATION: TRANSVAGINAL PELVIC [...] LAB POCT ORDERABLES - DEVICE Final Result [facility] One [facility] [place] [address] * eGFR (10/25/2024 1:45 AM CDT) eGFR [...] MD LAB BLOOD ORDER SHANT Final Result [facility] One [facility] [place] [address] * (ABNORMAL) Differential, auto (10/25/2024 1:45 AM CDT) Neutrophil abs 1.51 1.50 - 6.50 K/cumm Imm gran abs 0.01 0.00 - 0.10 K/cumm [facility] Lymphocyte abs 0.70(L) 0.80 - 3.30 K/cumm [facility] Monocyte abs 0.52 0.20 - 0.80 K/cumm [facility] Eosinophil abs 0.04 0.00 - 0.50 K/cumm [facility] Basophil abs 0.01 0.00 - 0.10 K/cumm [facility] Neutrophil pct 54.1 % [facility] Comment: Interpretive Data Percent cell count reference ranges are not reported, since discordance with absolute values may lead to misinterpretation of CBC data. Current Interpretive Data was last revised on 2017. Imm gran pct 0.4 % [facility] Comment: Interpretive Data Percent cell count reference ranges are not reported, since discordance with absolute values may lead to misinterpretation of CBC data. Current Interpretive Data was last revised on 2017. Lymphocyte pct 25.1 % [facility] Comment: Interpretive Data Percent cell count reference ranges are not reported, since discordance with absolute values may lead to misinterpretation of CBC data. Current Interpretive Data was last revised on 2017. Monocyte pct 18.6 % [facility] Comment: Interpretive Data Percent cell count reference ranges are not reported, since discordance with absolute values may lead to misinterpretation of CBC data. Current Interpretive Data was last revised on 2017. Eosinophil pct 1.4 % [facility] Comment: Interpretive Data Percent cell count reference ranges are not reported, since discordance with absolute values may lead to misinterpretation of CBC data. Current Interpretive Data was last revised on 2017. Basophil pct 0.4 % [facility] Comment: Interpretive Data Percent cell count reference ranges are not reported, since discordance with absolute values may lead to misinterpretation of CBC data. Current Interpretive Data was last revised on 2017. Blood 10/25/2024 1:45 AM CDT 10/25/2024 3:54 AM CDT Jessi Briggs MD LAB BLOOD ORDER SHANT Final Result [facility] One [facility] [place] [address] * (ABNORMAL) CBC with auto differential (10/25/2024 1:45 AM CDT) WBC 2.79(L) 3.80 - 9.90 K/cumm Hgb 7.5(L) 11.9 - 15.5 g/dL [facility] Hct 23.0(L) 35.6 - 45.5 % [facility] Plt 115(L) 150 - 400 K/cumm [facility] MPV 9.6 9.1 - 12.3 fL [facility] RBC 2.56(L) 3.90 - 5.20 M/cumm [facility] MCV 89.8 81.3 - 96.4 fL [facility] MCH 29.3 27.1 - 33.3 pg [facility] MCHC 32.6 32.3 - 35.7 g/dL [facility] RDW CV 14.5 11.1 - 14.9 % [facility] RDW SD 47.8 35.7 - 48.1 fL [facility] NRBC abs 0.00 0.00 - 0.01 K/cumm [facility] Blood 10/25/2024 1:45 AM CDT 10/25/2024 3:54 AM CDT Jessi Briggs MD LAB BLOOD ORDER SHANT Final Result [facility] [place] [address] * Phosphorus (10/25/2024 1:45 AM CDT) Pathologist [facility] Phosphorus, pl 2.5 2.3 - 4.5 mg/dL Blood 10/25/2024 1:45 AM CDT 10/25/2024 3:54 AM CDT Jessi Briggs MD LAB BLOOD ORDER SHANT Final Result Performing Organization Address [facility] de Phone Number [facility] [place] [address] * (ABNORMAL) Comprehensive metabolic panel (10/25/2024 1:45 AM CDT) [facility] Sodium 142 135 - 145 mmol/L Potassium, pl 3.3 3.3 - 4.9 mmol/L [facility] Chloride 106 97 - 110 mmol/L [facility] CO2 29 22 - 32 mmol/L [facility] Anion gap 7 2 - 15 mmol/L [facility] BUN 5(L) 6 - 25 mg/dL [facility] Creatinine 0.69 0.60 - 1.10 mg/dL [facility] Glucose 90 70 - 199 mg/dL [facility] Comment: Interpretive Data Fasting glucose [...] 2022. Calcium 8.3(L) 8.5 - 10.3 mg/dL [facility] Bilirubin, total 0.3 0.1 - 1.2 mg/dL [facility] Protein, pl 4.9(L) 6.5 - 8.5 g/dL [facility] Albumin 2.7(L) 3.5 - 5.0 g/dL [facility] Alk phos 148(H) 40 - 130 Units/L [facility] ALT 11 7 - 45 Units/L [facility] AST 16 10 - 45 Units/L [facility] Blood 10/25/2024 1:45 AM CDT 10/25/2024 3:54 AM CDT Jessi Briggs MD LAB BLOOD ORDER SHANT Final Result Performing Organization Address City/[facility]/ZIP Co de Phone Number [facility] Department [place] [address] * POCT glucose (10/25/2024 1:43 AM CDT) Glucose, POC 104 70 - 199 mg/dL Blood 10/25/2024 1:43 AM CDT 10/25/2024 1:43 AM CDT Tana Coronado MD LAB POCT ORDERABLES - DEVICE Final Result [facility] [place] [address] * POCT glucose (10/24/2024 8:55 PM CDT) Glucose, POC 105 70 - 199 mg/dL Blood 10/24/2024 8:55 PM CDT 10/24/2024 8:55 PM CDT Tana Coronado MD LAB POCT ORDERABLES - DEVICE Final Result [facility] [place] [address] * POCT glucose (10/24/2024 6:11 PM CDT) Glucose, POC 80 70 - 199 mg/dL Blood 10/24/2024 6:11 PM CDT 10/24/2024 6:11 PM CDT Tana Coronado MD LAB POCT ORDERABLES - DEVICE Final Result Performing Organization Address [facility] Co de Phone Number ENRIQUE [facility] [place] [address] * Diagnostic Mammogram Bilateral W Ayad (10/24/2024 [...] bilateral axilla was performed by a trained ore dressing engineer and Dr. Andrade. Subsequently, full field digital [...] bilateral axilla was performed by a trained ore dressing engineer and Dr. Andrade. Subsequently, full field digital [...] 92 70 - 199 mg/dL Blood 10/24/2024 1:0 3 PM CDT 10/24/2024 1:03 PM CDT us Tana Coronado MD LAB POCT ORDERABLES - DEVICE Final Result Performing Organization Address [facility] Phone Number [facility] Department [place] [address] * POCT glucose (10/24/2024 8:49 AM CDT) Glucose, POC 98 70 - 199 mg/dL Blood 10/24/2024 8:49 AM CDT 10/24/2024 8:49 AM CDT us Tana Coronado MD LAB POCT ORDERABLES - DEVICE Final Result Performing Organization Address [facility] Phone Number [facility] Department [place] [address] * POCT glucose (10/24/2024 2:00 AM CDT) Glucose, POC 88 70 - 199 mg/dL Blood 10/24/2024 2:00 AM CDT 10/24/2024 2:00 AM CDT us Tana Coronado MD LAB POCT ORDERABLES - DEVICE Final Result Performing Organization Address [facility]/ZIP Co de Phone Number ENRIQUE BETANCOURT One [facility] [place] [address] * eGFR (10/24/2024 1:50 AM CDT) Pathologist [facility] eGFR >90 >=60 mL/min/1. 73 [...] ORDER SHANT Final Result Performing Organization Address [facility] de Phone Number [facility] Department [place] [address] * Differential, auto (10/24/2024 1:50 AM CDT) Pathologist [facility] Neutrophil abs 2.44 1.50 - 6.50 K/cumm Imm gran abs 0.02 0.00 - 0.10 K/cumm [facility] Lymphocyte abs 1.24 0.80 - 3.30 K/cumm [facility] Monocyte abs 0.74 0.20 - 0.80 K/cumm [facility] Eosinophil abs 0.08 0.00 - 0.50 K/cumm [facility] Basophil abs 0.01 0.00 - 0.10 K/cumm [facility] Neutrophil pct 53.9 % [facility] Comment: Interpretive Data Percent cell count reference ranges are not reported, since discordance with absolute values may lead to misinterpretation of CBC data. Current Interpretive Data was last revised on 2017. Imm gran pct 0.4 % [facility] Comment: Interpretive Data Percent cell count reference ranges are not reported, since discordance with absolute values may lead to misinterpretation of CBC data. Current Interpretive Data was last revised on 2017. Lymphocyte pct 27.4 % [facility] Comment: Interpretive Data Percent cell count reference ranges are not reported, since discordance with absolute values may lead to misinterpretation of CBC data. Current Interpretive Data was last revised on 2017. Monocyte pct 16.3 % [facility] Comment: Interpretive Data Percent cell count reference ranges are not reported, since discordance with absolute values may lead to misinterpretation of CBC data. Current Interpretive Data was last revised on 2017. Eosinophil pct 1.8 % [facility] Comment: Interpretive Data Percent cell count reference ranges are not reported, since discordance with absolute values may lead to misinterpretation of CBC data. Current Interpretive Data was last revised on 2017. Basophil pct 0.2 % [facility] Comment: Interpretive Data Percent cell count reference ranges are not reported, since discordance with absolute values may lead to misinterpretation of CBC data. Current Interpretive Data was last revised on 2017. Blood 10/24/2024 1:50 AM CDT 10/24/2024 2:13 AM CDT Jessi Briggs MD LAB BLOOD ORDER SHANT Final Result ENRIQUE [facility]RT One [facility] [place] [address] * Calcium, ionized (10/24/2024 1:50 AM CDT) Calcium, Ionized 4.85 4.50 - 5.10 mg/dL Blood 10/24/2024 1:50 AM CDT 10/24/2024 2:10 AM CDT us Tana Coronado MD LAB BLOOD ORDERABLES Final Result Performing Organization Address [facility] Co de Phone Number [facility] Department [place] [address] * (ABNORMAL) CBC with auto differential (10/24/2024 1:50 AM CDT) Pathologist [facility] WBC 4.53 3.80 - 9.90 K/cumm Hgb 8.8(L) 11.9 - 15.5 g/dL [facility] Hct 26.9(L) 35.6 - 45.5 % [facility] Plt 160 150 - 400 K/cumm [facility] MPV 9.8 9.1 - 12.3 fL [facility] RBC 2.97(L) 3.90 - 5.20 M/cumm [facility] MCV 90.6 81.3 - 96.4 fL [facility] MCH 29.6 27.1 - 33.3 pg [facility] MCHC 32.7 32.3 - 35.7 g/dL [facility] RDW CV 14.5 11.1 - 14.9 % [facility] RDW SD 48.5(H) 35.7 - 48.1 fL [facility] NRBC abs 0.00 0.00 - 0.01 K/cumm [facility] Blood 10/24/2024 1:50 AM CDT 10/24/2024 2:13 AM CDT us Jessi Briggs MD LAB BLOOD ORDER SHNAT Final Result Performing Organization Address City/[facility]/ZIP Co de Phone Number [facility] Department [place] [address] * Type and screen (10/24/2024 1:50 AM CDT) Pathologist [facility] ABO Rh O Negative Brigitte, indirect Negative [facility] Blood 10/24/2024 1:50 AM CDT 10/24/2024 2:25 AM CDT Narrative [facility] - 10/24/2024 3:52 AM CDT Has the patient had Daratumumab or Isatuximab in the past 6 months?->Unknown Jessi Briggs MD LAB BLOOD BANK TEST ORDERABLES Final Result Performing Organization Address City/[facility] Co de Phone Number [facility] [place] [address] * Uric acid (10/24/2024 1:50 AM CDT) [facility] Uric acid 3.8 2.5 - 7.0 mg/dL Blood 10/24/2024 1:50 AM CDT 10/24/2024 2:13 AM CDT Narrative [facility] - 10/24/2024 2:40 AM CDT Monday and only. Morning draw. . Jessi Briggs MD LAB BLOOD ORDER SHANT Final Result Performing Organization Address City/[facility] Co de Phone Number [facility] [place] [address] * Phosphorus (10/24/2024 1:50 AM CDT) Pathologist [facility] Phosphorus, pl 2.4 2.3 - 4.5 mg/dL Blood 10/24/2024 1:50 AM CDT 10/24/2024 2:13 AM CDT Jessi Briggs MD LAB BLOOD ORDER SHANT Final Result Performing Organization Address City/[facility] Co de Phone Number [facility] [place] [address] * Lactate dehydrogenase (LD) (10/24/2024 1:50 AM CDT) Lactate dehydrogenase (LDH) 213 100 - 250 Units/L Blood 10/24/2024 1:50 AM CDT 10/24/2024 2:13 AM CDT Narrative [facility] - 10/24/2024 2:40 AM CDT Monday and only. Morning draw. Jessi Briggs MD LAB BLOOD ORDER SHANT Final Result [facility] One [facility] [place] [address] * (ABNORMAL) Comprehensive metabolic panel (10/24/2024 1:50 AM CDT) Pathologist [facility] Sodium 138 135 - 145 mmol/L Potassium, pl 3.6 3.3 - 4.9 mmol/L [facility] Chloride 107 97 - 110 mmol/L [facility] CO2 28 22 - 32 mmol/L [facility] Anion gap 3 2 - 15 mmol/L [facility] BUN 8 6 - 25 mg/dL [facility] Creatinine 0.63 0.60 - 1.10 mg/dL [facility] Glucose 88 70 - 199 mg/dL [facility] Comment: Interpretive Data Fasting glucose [...] 2022. Calcium 8.9 8.5 - 10.3 mg/dL [facility] Bilirubin, total 0.3 0.1 - 1.2 mg/dL [facility] Protein, pl 5.8(L) 6.5 - 8.5 g/dL [facility] Albumin 3.1(L) 3.5 - 5.0 g/dL [facility] Alk phos 185(H) 40 - 130 Units/L [facility] ALT 13 7 - 45 Units/L [facility] AST 20 10 - 45 Units/L [facility] Blood 10/24/2024 1:50 AM CDT 10/24/2024 2:13 AM CDT us Jessi Briggs MD LAB BLOOD ORDER SHANT Final Result Performing Organization Address [facility] Co de Phone Number [facility] [place] [address] * (ABNORMAL) Vancomycin level trough (10/23/2024 11:26 PM CDT) Vancomycin trough 5.7(L) 10.0 - 20.0 mcg/mL Blood 10/23/2024 11:2 6 PM CDT 10/23/2024 11:36 PM CDT us Cayla Solorzano MD LAB BLOOD ORDERABLES Final Resul t Performing Organization Address [facility] de Phone Number [facility] [place] [address] * POCT glucose (10/23/2024 8:27 PM CDT) Glucose, POC 98 70 - 199 mg/dL Blood 10/23/2024 8:27 PM CDT 10/23/2024 8:27 PM CDT us Tana Coronado MD LAB POCT ORDERABLES - DEVICE Final Result Performing Organization Address [facility] Co de Phone Number [facility] [place] [address] * POCT glucose (10/23/2024 5:50 PM CDT) Glucose, POC 104 70 - 199 mg/dL Blood 10/23/2024 5:50 PM CDT 10/23/2024 5:50 PM CDT us Tana Coronado MD LAB POCT ORDERABLES - DEVICE Final Result ENRIQUE BETANCOURT [facility]ien [facility] [place] [address] * FL Modified Barium Swallow W Video [...] IMG FLUOROSCOPY PROC EDURES Final Result * [employer] Evaluate and Treat (VFSS) (10/23/2024 2:38 PM [...] h/o gastric sleeve, who presents to the [facility] 10/21/24 due to Fever at [...] thin liquid General Information Susannah Camargo 10/23/24 [employer] Received On: 10/23/24 General Observations: alert, cooperative [...] SHERI indicate need for nonoral nutrition. Plan [employer] Recommendation (Add'l Services): No further [employer] indicated (do not anticipate TECH[employer] needs at discharge) Next Visit Plan: treatment/therapy Discharge Summary Statement If this is the last swallow therapy visit, this serves as the discharge summary. Tana Coronado MD [employer] ORDERABLES Gail l Result * POCT glucose (10/23/2024 11:58 AM CDT) Glucose, POC 78 70 - 199 mg/dL Blood 10/23/2024 11:5 8 AM CDT 10/23/2024 11:58 AM CDT Tana Coronado MD LAB POCT ORDERABLES - DEVICE Final Result Performing Organization Address [facility]/ZIP Co de Phone Number [facility] [place] [address] * POCT glucose (10/23/2024 7:26 AM CDT) Glucose, POC 84 70 - 199 mg/dL Blood 10/23/2024 7:26 AM CDT 10/23/2024 7:26 AM CDT Tana Coronado MD LAB POCT ORDERABLES - DEVICE Final Result Performing Organization Address City/[facility]/ZIP Co de Phone Number [facility] [address] * eGFR (10/23/2024 12:28 AM CDT) eGFR [...] MD LAB BLOOD ORDER SHANT Final Result [facility] One [facility] [place] [address] * (ABNORMAL) Differential, auto (10/23/2024 12:28 AM CDT) Neutrophil abs 2.24 1.50 - 6.50 K/cumm Imm gran abs 0.01 0.00 - 0.10 K/cumm [facility] Lymphocyte abs 0.74(L) 0.80 - 3.30 K/cumm [facility] Monocyte abs 0.54 0.20 - 0.80 K/cumm [facility] Eosinophil abs 0.03 0.00 - 0.50 K/cumm [facility] Basophil abs 0.01 0.00 - 0.10 K/cumm [facility] Neutrophil pct 62.8 % [facility] Comment: Interpretive Data Percent cell count reference ranges are not reported, since discordance with absolute values may lead to misinterpretation of CBC data. Current Interpretive Data was last revised on 2017. Imm gran pct 0.3 % [facility] Comment: Interpretive Data Percent cell count reference ranges are not reported, since discordance with absolute values may lead to misinterpretation of CBC data. Current Interpretive Data was last revised on 2017. Lymphocyte pct 20.7 % [facility] Comment: Interpretive Data Percent cell count reference ranges are not reported, since discordance with absolute values may lead to misinterpretation of CBC data. Current Interpretive Data was last revised on 2017. Monocyte pct 15.1 % [facility] Comment: Interpretive Data Percent cell count reference ranges are not reported, since discordance with absolute values may lead to misinterpretation of CBC data. Current Interpretive Data was last revised on 2017. Eosinophil pct 0.8 % [facility] Comment: Interpretive Data Percent cell count reference ranges are not reported, since discordance with absolute values may lead to misinterpretation of CBC data. Current Interpretive Data was last revised on 2017. Basophil pct 0.3 % [facility] Comment: Interpretive Data Percent cell count reference ranges are not reported, since discordance with absolute values may lead to misinterpretation of CBC data. Current Interpretive Data was last revised on 2017. Blood 10/23/2024 12:2 8 AM CDT 10/23/2024 12:47 AM CDT Jessi Briggs MD LAB BLOOD ORDER SHANT Final Result [facility] One [facility] [place] [address] * (ABNORMAL) CBC with auto differential (10/23/2024 12:28 AM CDT) WBC 3.57(L) 3.80 - 9.90 K/cumm Hgb 8.0(L) 11.9 - 15.5 g/dL [facility] Hct 24.1(L) 35.6 - 45.5 % [facility] Plt 124(L) 150 - 400 K/cumm [facility] MPV 10.5 9.1 - 12.3 fL [facility] RBC 2.72(L) 3.90 - 5.20 M/cumm [facility] MCV 88.6 81.3 - 96.4 fL [facility] MCH 29.4 27.1 - 33.3 pg [facility] MCHC 33.2 32.3 - 35.7 g/dL [facility] RDW CV 14.7 11.1 - 14.9 % [facility] RDW SD 47.7 35.7 - 48.1 fL [facility] NRBC abs 0.00 0.00 - 0.01 K/cumm [facility] Blood 10/23/2024 12:2 8 AM CDT 10/23/2024 12:47 AM CDT Jessi Briggs MD LAB BLOOD ORDER SHANT Final Result Performing Organization Address [facility]/ZIP Co de Phone Number [facility] [place] [address] * (ABNORMAL) Phosphorus (10/23/2024 12:28 AM CDT) [facility] Phosphorus, pl 2.1(L) 2.3 - 4.5 mg/dL Blood 10/23/2024 12:2 8 AM CDT 10/23/2024 12:46 AM CDT Jessi Briggs MD LAB BLOOD ORDER SHANT Final Result Performing Organization Address City/[facility]/ZIP Co de Phone Number [facility] [address] * (ABNORMAL) Comprehensive metabolic panel (10/23/2024 12:28 AM CDT) [facility] Sodium 137 135 - 145 mmol/L Potassium, pl 3.5 3.3 - 4.9 mmol/L [facility] Chloride 105 97 - 110 mmol/L [facility] CO2 27 22 - 32 mmol/L [facility] Anion gap 5 2 - 15 mmol/L [facility] BUN 8 6 - 25 mg/dL [facility] Creatinine 0.58(L) 0.60 - 1.10 mg/dL [facility] Glucose 122 70 - 199 mg/dL [facility] Comment: Interpretive Data Fasting glucose [...] 2022. Calcium 8.2(L) 8.5 - 10.3 mg/dL [facility] Bilirubin, total 0.4 0.1 - 1.2 mg/dL [facility] Protein, pl 5.3(L) 6.5 - 8.5 g/dL [facility] Albumin 2.8(L) 3.5 - 5.0 g/dL [facility] Alk phos 175(H) 40 - 130 Units/L [facility] ALT 14 7 - 45 Units/L [facility] AST 17 10 - 45 Units/L [facility] Blood 10/23/2024 12:2 8 AM CDT 10/23/2024 12:46 AM CDT us Jessi Briggs MD LAB BLOOD ORDER SHANT Final Result [facility] One [facility] Department [place] [address] * POCT glucose (10/22/2024 8:01 PM CDT) [facility] Glucose, POC 112 70 - 199 mg/dL Blood 10/22/2024 8:01 PM CDT 10/22/2024 8:01 PM CDT us Tana Coronado MD LAB POCT ORDERABLES - DEVICE Final Result Performing Organization Address [facility] Co de Phone Number [facility] [place] [address] * POCT glucose (10/22/2024 5:14 PM CDT) Glucose, POC 99 70 - 199 mg/dL Blood 10/22/2024 5:14 PM CDT 10/22/2024 5:14 PM CDT us Tana Coronado MD LAB POCT ORDERABLES - DEVICE Final Result Performing Organization Address [facility] de Phone Number ENRIQUE [facility] [place] [address] * US Vein Duplex Upper Extremity Left Limited, Unilateral (10/22/2024 4:42 PM CDT) Anatomical Region Laterality Modality Vascular Left Ultrasound 10/22/2024 4:10 PM CDT Narrative 10/22/2024 9:32 PM CDT [facility] [employer] [facility] - Department of Vascular Surgery, Vascular Laboratory [address] [place] [id number] Upper Extremity Venous Ultrasound Report Patient Name: SUSANNAH CAMARGO : 1950 (73y 9m) Study Date: 10/22/2024 4:10:04 PM Gender: F Tech: MA Location: [id number] Ref Provider: TANA CORONADO Quality: Adequate Order Provider: TANA CORONADO PROCEDURES: Vascular Report: Venous Duplex imaging was performed in the left upper extremity. The internal jugular, subclavian and axillary veins were evaluated for patency, spontaneity and phasicity with Doppler, compression and augmentation maneuvers. The brachial, basilic and cephalic veins were also evaluated with compression maneuvers. INDICATIONS: LUE swelling, erythema. FINDINGS: Performing Edge Cutter: Halley Castillo RVT. Left: Venous Doppler signals [...] Procedure Note Dano Gleason MD - 10/22/2024 [employer] - Department of Vascular Surgery,Vascular Laboratory [address] [place] [address] Upper Extremity Venous Ultrasound Report Patient Name: SUSANNAH CAMARGO : 1950 (73y 9m) Study Date: 10/22/2024 4:10:04 PM Gender: F Tech: IA Location: [id number] Ref Provider: TANA CORONADO Quality: Adequate Order Provider: TANA CORONADO PROCEDURES: Vascular Report: Venous Duplex imaging was performed in the left upper extremity. Theinternal jugular, subclavian and axillary veins were evaluated for patency, spontaneity andphasicity with Doppler, compression and augmentation maneuvers. The brachial, basilic andcephalic veins were also evaluated with compression maneuvers. INDICATIONS: LUE swelling, erythema. FINDINGS: Performing Edge Cutter: Halley Castillo RVT. Left: Venous Doppler signals [...] - DEVICE Final Result Performing Organization Address City/[facility]/ZIP Co de Phone Number [facility] Department [place] [address] * POCT glucose (10/22/2024 7:14 AM CDT) Glucose, POC 73 70 - 199 mg/dL Blood 10/22/2024 7:14 AM CDT 10/22/2024 7:14 AM CDT Result [facility] Tana Coronado MD LAB POCT ORDERABLES - DEVICE Final Result [facility] [place] [address] * Stool culture Stool Rectum (10/22/2024 6:46 AM CDT) Direct Specimen Exam Shiga Toxin Testing: Antigen detection assay for Shiga-toxin NEGATIVE for Shiga Toxin 1 and Shiga Toxin 2. Report Final Report: No growth of enteric bacterial pathogens [facility] Stool (Rectum) 10/22/2024 6: 46 AM CDT 10/22/2024 7:57 AM CDT Narrative [facility] - 10/26/2024 9:59 AM CDT Testing performed by [facility] ([phone]). Routine stool cultures include procedures to detect Salmonella, Shigella, Edwardsiella, Aeromonas, Pleisiomonas, Campylobacter, Yersinia, E. coli O157, and Shiga-like toxins. Vibrio is cultured only upon special request. If Vibrio is suspected, please call the laboratory at [phone]. Interpretive data was last updated August 22, 2016. Jessi Briggs MD LAB MICROBIOLOG Y - GENERAL ORDERABLES Final Result Performing Organization Address City/[facility]/ZIP Co de Phone Number ENRIQUE BETANCOURT [facility] [place] [address] * eGFR (10/22/2024 2:51 AM CDT) eGFR [...] LAB BLOOD ORDER SHANT Final Result ENRIQUE BETANCOURT [facility] [place] [address] * aPTT (10/22/2024 2:51 AM CDT) aPTT [...] ORDER SHANT Final Result Performing Organization Address [facility] [place] [address] * (ABNORMAL) Protime-INR (10/22/2024 2:51 AM CDT) PT 14.9(H) 9.7 - 13.0 sec INR 1.37(H) 0.90 - 1.20 [facility] Comment: Interpretive data Oral anticoagulant [...] ORDER SHANT Final Result Performing Organization Address [facility] de [place] [address] * Uric acid (10/22/2024 2:51 AM CDT) Uric acid 3.6 2.5 - 7.0 mg/dL Blood 10/22/2024 2:51 AM CDT 10/22/2024 3:19 AM CDT Narrative [facility] - 10/22/2024 3:48 AM CDT Monday and only. Morning draw. . Jessi Briggs MD LAB BLOOD ORDER SHANT Final Result Performing Organization Address City/[facility] Co de Phone Number [facility] [address] * Phosphorus (10/22/2024 2:51 AM CDT) Pathologist [facility] Phosphorus, pl 2.3 2.3 - 4.5 mg/dL Blood 10/22/2024 2:51 AM CDT 10/22/2024 3:19 AM CDT Jessi Briggs MD LAB BLOOD ORDER SHANT Final Result Performing Organization Address [facility] de Phone Number [facility] [place] [address] * Lactate dehydrogenase (LD) (10/22/2024 2:51 AM CDT) Pathologist [facility] Lactate dehydrogenase (LDH) 185 100 - 250 Units/L Blood 10/22/2024 2:51 AM CDT 10/22/2024 3:19 AM CDT Narrative [facility] - 10/22/2024 3:48 AM CDT Monday and only. Morning draw. Jessi Briggs MD LAB BLOOD ORDER SHANT Final Result Performing Organization Address City/[facility] Co de Phone Number [facility] [place] [address] * (ABNORMAL) Comprehensive metabolic panel (10/22/2024 2:51 AM CDT) Pathologist [facility] Sodium 136 135 - 145 mmol/L Potassium, pl 3.7 3.3 - 4.9 mmol/L [facility] Chloride 102 97 - 110 mmol/L [facility] CO2 27 22 - 32 mmol/L [facility] Anion gap 7 2 - 15 mmol/L [facility] BUN 9 6 - 25 mg/dL [facility] Creatinine 0.64 0.60 - 1.10 mg/dL [facility] Glucose 107 70 - 199 mg/dL [facility] Comment: Interpretive Data Fasting glucose [...] 2022. Calcium 8.6 8.5 - 10.3 mg/dL [facility] Bilirubin, total 0.8 0.1 - 1.2 mg/dL [facility] Protein, pl 5.3(L) 6.5 - 8.5 g/dL [facility] Albumin 2.8(L) 3.5 - 5.0 g/dL [facility] Alk phos 186(H) 40 - 130 Units/L [facility] ALT 13 7 - 45 Units/L [facility] AST 16 10 - 45 Units/L [facility] Blood 10/22/2024 2:51 AM CDT 10/22/2024 3:19 AM CDT Jessi Briggs MD LAB BLOOD ORDER SHANT Final Result [facility] [place] [address] * Type and screen (10/22/2024 2:50 AM CDT) Pathologist [facility] Brigitte, indirect Negative ABO Rh O Negative [facility] Blood 10/22/2024 2:50 AM CDT 10/22/2024 3:14 AM CDT Narrative [facility] - 10/22/2024 4:09 AM CDT Has the patient had Daratumumab or Isatuximab in the past 6 months?->Unknown Jessi Briggs MD LAB BLOOD BANK TEST ORDERABLES Final Result [facility] [place] [address] * POCT glucose (10/22/2024 2:48 AM CDT) [facility] Glucose, POC 77 70 - 199 mg/dL Blood 10/22/2024 2:48 AM CDT 10/22/2024 2:48 AM CDT Kalli Cox MD LAB POCT ORDERABLES - DEV ICE Final Result Performing Organization Address City/[facility] Co de Phone Number [facility] [place] [address] * (ABNORMAL) POCT glucose (10/22/2024 2:47 AM CDT) [facility] Glucose, POC 60(L) 70 - 199 mg/dL Blood 10/22/2024 2:47 AM CDT 10/22/2024 2:47 AM CDT Kalli Cox MD LAB POCT ORDERABLES - DEV ICE Final Result Performing Organization Address City/[facility] Co de Phone Number [facility] [place] [address] * (ABNORMAL) Differential, auto (10/22/2024 2:30 AM CDT) Neutrophil abs 2.33 1.50 - 6.50 K/cumm Imm gran abs 0.02 0.00 - 0.10 K/cumm [facility] Lymphocyte abs 0.73(L) 0.80 - 3.30 K/cumm [facility] Monocyte abs 0.38 0.20 - 0.80 K/cumm [facility] Eosinophil abs 0.02 0.00 - 0.50 K/cumm [facility] Basophil abs 0.00 0.00 - 0.10 K/cumm [facility] Neutrophil pct 66.9 % [facility] Comment: Interpretive Data Percent cell count reference ranges are not reported, since discordance with absolute values may lead to misinterpretation of CBC data. Current Interpretive Data was last revised on 2017. Imm gran pct 0.6 % [facility] Comment: Interpretive Data Percent cell count reference ranges are not reported, since discordance with absolute values may lead to misinterpretation of CBC data. Current Interpretive Data was last revised on 2017. Lymphocyte pct 21.0 % [facility] Comment: Interpretive Data Percent cell count reference ranges are not reported, since discordance with absolute values may lead to misinterpretation of CBC data. Current Interpretive Data was last revised on 2017. Monocyte pct 10.9 % [facility] Comment: Interpretive Data Percent cell count reference ranges are not reported, since discordance with absolute values may lead to misinterpretation of CBC data. Current Interpretive Data was last revised on 2017. Eosinophil pct 0.6 % [facility] Comment: Interpretive Data Percent cell count reference ranges are not reported, since discordance with absolute values may lead to misinterpretation of CBC data. Current Interpretive Data was last revised on 2017. Basophil pct 0.0 % [facility] Comment: Interpretive Data Percent cell count reference ranges are not reported, since discordance with absolute values may lead to misinterpretation of CBC data. Current Interpretive Data was last revised on 2017. Blood 10/22/2024 2:30 AM CDT 10/22/2024 3:19 AM CDT Jessi Briggs MD LAB BLOOD ORDER SHANT Final Result [facility] One [facility] [place] [address] * (ABNORMAL) CBC with auto differential (10/22/2024 2:30 AM CDT) [facility] WBC 3.48(L) 3.80 - 9.90 K/cumm Hgb 7.9(L) 11.9 - 15.5 g/dL [facility] Hct 24.5(L) 35.6 - 45.5 % [facility] Plt 111(L) 150 - 400 K/cumm [facility] MPV 10.7 9.1 - 12.3 fL [facility] RBC 2.73(L) 3.90 - 5.20 M/cumm [facility] MCV 89.7 81.3 - 96.4 fL [facility] MCH 28.9 27.1 - 33.3 pg [facility] MCHC 32.2(L) 32.3 - 35.7 g/dL [facility] RDW CV 15.0(H) 11.1 - 14.9 % [facility] RDW SD 49.4(H) 35.7 - 48.1 fL [facility] NRBC abs 0.00 0.00 - 0.01 K/cumm [facility] Blood 10/22/2024 2:30 AM CDT 10/22/2024 3:19 AM CDT [facility] Sima Briggs MD LAB BLOOD ORDER SHANT Final Result [facility] [place] [address] * eGFR (10/21/2024 9:15 PM CDT) [facility] eGFR >90 >=60 mL/min/1. 73 m2 Comment: [...] MD LAB BLOOD ORDER SHANT Final Result [facility] One [facility] [place] [address] * (ABNORMAL) Differential, auto (10/21/2024 9:15 PM CDT) Neutrophil abs 2.53 1.50 - 6.50 K/cumm Imm gran abs 0.03 0.00 - 0.10 K/cumm [facility] Lymphocyte abs 0.69(L) 0.80 - 3.30 K/cumm [facility] Monocyte abs 0.27 0.20 - 0.80 K/cumm [facility] Eosinophil abs 0.01 0.00 - 0.50 K/cumm [facility] Basophil abs 0.00 0.00 - 0.10 K/cumm [facility] Neutrophil pct 71.8 % [facility] Comment: Interpretive Data Percent cell count reference ranges are not reported, since discordance with absolute values may lead to misinterpretation of CBC data. Current Interpretive Data was last revised on 2017. Imm gran pct 0.8 % [facility] Comment: Interpretive Data Percent cell count reference ranges are not reported, since discordance with absolute values may lead to misinterpretation of CBC data. Current Interpretive Data was last revised on 2017. Lymphocyte pct 19.5 % [facility] Comment: Interpretive Data Percent cell count reference ranges are not reported, since discordance with absolute values may lead to misinterpretation of CBC data. Current Interpretive Data was last revised on 2017. Monocyte pct 7.6 % [facility] Comment: Interpretive Data Percent cell count reference ranges are not reported, since discordance with absolute values may lead to misinterpretation of CBC data. Current Interpretive Data was last revised on 2017. Eosinophil pct 0.3 % [facility] Comment: Interpretive Data Percent cell count reference ranges are not reported, since discordance with absolute values may lead to misinterpretation of CBC data. Current Interpretive Data was last revised on 2017. Basophil pct 0.0 % [facility] Comment: Interpretive Data Percent cell count reference ranges are not reported, since discordance with absolute values may lead to misinterpretation of CBC data. Current Interpretive Data was last revised on 2017. Blood 10/21/2024 9:15 PM CDT 10/21/2024 9:32 PM CDT Jessi Briggs MD LAB BLOOD ORDER SHANT Final Result [facility] [place] [address] * (ABNORMAL) CBC with auto differential (10/21/2024 9:15 PM CDT) WBC 3.53(L) 3.80 - 9.90 K/cumm Hgb 8.2(L) 11.9 - 15.5 g/dL [facility] Hct 24.5(L) 35.6 - 45.5 % [facility] Plt 114(L) 150 - 400 K/cumm [facility] MPV 10.2 9.1 - 12.3 fL [facility] RBC 2.79(L) 3.90 - 5.20 M/cumm [facility] MCV 87.8 81.3 - 96.4 fL [facility] MCH 29.4 27.1 - 33.3 pg [facility] MCHC 33.5 32.3 - 35.7 g/dL [facility] RDW CV 14.8 11.1 - 14.9 % [facility] RDW SD 48.0 35.7 - 48.1 fL [facility] NRBC abs 0.00 0.00 - 0.01 K/cumm [facility] Blood 10/21/2024 9:15 PM CDT 10/21/2024 9:32 PM CDT Jessi Briggs MD LAB BLOOD ORDER SHANT Final Result Performing Organization Address [facility] Co de Phone Number [facility] Department [place] [address] * (ABNORMAL) Infection Prevention MRSA Only (Staphylococcus aureus) Culture Nasal (10/21/2024 9:15 PMCDT) Report Final Report: Methicillin-resist ant Staphylococcus aureus (.) Organism METHICILLIN-RESIST ANT STAPHYLOCOCCUS AUREUS [facility] Nasal 10/21/2024 9:15 PM CDT 10/21/2024 9:33 PM CDT Narrative [facility] - 10/24/2024 11:16 AM CDT Testing performed by [facility] Microbiology Laboratory ([phone]). us Jessi Briggs MD LAB MICROBIOLOG Y - GENERAL ORDERABLES Final Result [facility] Department [place] [address] * (ABNORMAL) Phosphorus (10/21/2024 9:15 PM CDT) Phosphorus, pl 1.9(L) 2.3 - 4.5 mg/dL Blood 10/21/2024 9:15 PM CDT 10/21/2024 9:32 PM CDT Jessi Briggs MD LAB BLOOD ORDER SHANT Final Result [facility] Department [place] [address] * Magnesium (10/21/2024 9:15 PM CDT) Pathologist [facility] Magnesium 1.6 1.4 - 2.5 mg/dL Blood 10/21/2024 9:15 PM CDT 10/21/2024 9:32 PM CDT Jessi Briggs MD LAB BLOOD ORDER SHANT Final Result Performing Organization Address [facility] Co de Phone Number [facility] [place] [address] * (ABNORMAL) Comprehensive metabolic panel (10/21/2024 9:15 PM CDT) [facility] Sodium 137 135 - 145 mmol/L Potassium, pl 3.5 3.3 - 4.9 mmol/L [facility] Chloride 103 97 - 110 mmol/L [facility] CO2 27 22 - 32 mmol/L [facility] Anion gap 7 2 - 15 mmol/L [facility] BUN 9 6 - 25 mg/dL [facility] Creatinine 0.66 0.60 - 1.10 mg/dL [facility] Glucose 98 70 - 199 mg/dL [facility] Comment: Interpretive Data Fasting glucose [...] 2022. Calcium 8.7 8.5 - 10.3 mg/dL [facility] Bilirubin, total 0.9 0.1 - 1.2 mg/dL [facility] Protein, pl 5.4(L) 6.5 - 8.5 g/dL [facility] Albumin 2.8(L) 3.5 - 5.0 g/dL [facility] Alk phos 191(H) 40 - 130 Units/L [facility] ALT 14 7 - 45 Units/L [facility] AST 17 10 - 45 Units/L [facility] Blood 10/21/2024 9:15 PM CDT 10/21/2024 9:32 PM CDT us Jessi Briggs MD LAB BLOOD ORDER SHANT Final Result Performing Organization Address City/[facility]/ZIP Co de Phone Number [facility] Department [place] [address] * POCT glucose (10/21/2024 8:35 PM CDT) Glucose, POC 104 70 - 199 mg/dL Blood 10/21/2024 8:35 PM CDT 10/21/2024 8:35 PM CDT us Kalli Cox MD LAB POCT ORDERABLES - DEV ICE Final Result [facility] [place] [address] * ECG 12 lead (10/21/2024 8:17 PM CDT) Ventricular Rate EKG/Min 85 BPM [facility] Atrial Rate 85 BPM [facility] NH-Interval (MSEC) 166 ms [facility] QRS-Interval (MSEC) 96 ms [facility] QT-Interval (MSEC) 352 ms [facility] QTc 418 ms [facility] P Lemmon 65 degrees [facility] R Lemmon 30 degrees [facility] T Lemmon 21 degrees [facility] Diagnosis Normal sinus rhythm Low voltage QRS Nonspecific T wave abnormality Abnormal ECG No previous ECGs available Confirmed by Dorinda Hong MD ([id number]) on 10/23/2024 6:21:31 AM [facility] [employer] 10/21/2024 8:17 PM CDT 10/23/2024 6:21 AM CDT Jessi Briggs MD ECG ORDERABLES Final Result [facility] [employer] [facility] * Vein Duplex Lower Extremity Bilateral Complete (10/21/2024 4:02 PM CDT) Anatomical Region Laterality Modality Vascular Bilateral Ultrasound 10/21/2024 12:2 5 PM CDT Narrative 10/22/2024 11:07 AM CDT [facility] - Department of Vascular Surgery, Vascular Laboratory [address] [place] [address] Lower Extremity Venous Ultrasound Report Patient Name: [...] and pain; r/o DVT - FINDINGS: Performing Edge Cutter: Taylor Lauren RVT. Bilateral: Venous Doppler signals [...] vein obstruction. HISTORY: Pancreatic Adenocarcinoma presents to [facility] from home for evaluation with [...] Procedure Note Dano Gleason MD - 10/22/2024 [facility] - Department of Vascular Surgery,Vascular Laboratory [address] [place] [address] Lower Extremity Venous Ultrasound Report Patient Name: SUSANNAH CAMARGO : 1950 (73y 9m) Study Date: 10/21/2024 12:25:49 PM Gender: F Tech: SHANNA Location: [facility] Ref Provider: JACQUELYN CINTRON Quality: Adequate [...] and pain; r/o DVT - FINDINGS: Performing Edge Cutter: Taylor Lauren RVT. Bilateral: Venous Doppler signals [...] calf veinobstruction. HISTORY: Pancreatic Adenocarcinoma presents to [facility] from home for evaluation withdaughters [...] above. Electronically Signed By: Dano Gleason MD [facility] 10/22/2024 10:02:18 AM CDT us Jacquelyn Cintron COLLECTIONS AND ARCHIVES DIRECTOR IMG US PROCEDURES Final Re sult * Transfuse RBC (10/21/2024 3:15 PM CDT) Blood Jacquelyn Cintron COLLECTIONS AND ARCHIVES DIRECTOR BLOOD TRANSFUSION ORDERABL ES Final Result Performing Organization Address [facility] Co de Phone Number [facility] [place] [address] * Check Sample (10/21/2024 11:17 AM CDT) ABO Rh O Negative [facility] HCLL OTHER 10/21/2024 11:1 7 AM CDT 10/21/2024 11:26 AM CDT Kalli Cox MD LAB BLOOD ORDERABLES Gail l Result Performing Organization Address [facility] de Phone Number [facility] [place] [address] [facility] * Type and screen (10/21/2024 9:36 AM CDT) ABO Rh O Negative Brigitte, indirect Negative [facility] Blood 10/21/2024 9:36 AM CDT 10/21/2024 9:52 AM CDT Narrative [facility] - 10/21/2024 10:57 AM CDT Has the patient had Daratumumab or Isatuximab in the past 6 months?->Unknown Jacquelyn Cintron NP LAB BLOOD BANK TEST ORDERA BLES Final Result Performing Organization Address [facility] [place] [address] * Prepare RBC: 1 Units (10/21/2024 9:27 AM CDT) Product code [id number] Unit Number [id number] [facility] Product Blood Type ONEG [facility] Dispense Status PRESUMED TRANSFUSED [facility] Blood 10/21/2024 9:27 AM CDT 10/21/2024 9:28 AM CDT Narrative [facility] - 10/22/2024 12:55 AM CDT Are special requirements needed? (All products are leukoreduced and CMV- safe)- >No Date required:-[id number] LRRBC # of Dufee-3-Kiaqh Reasons:-Hgb <7 g/dL} us Jacquelyn Cintron COLLECTIONS AND ARCHIVES DIRECTOR BLOOD BANK PRODUCT ORDERAB LES Final Result [facility] [place] [address] * eGFR (10/21/2024 6:50 AM CDT) eGFR [...] 10/21/2024 7:13 AM CDT us Theresa Schumacher COLLECTIONS AND ARCHIVES DIRECTOR LAB BLOOD ORDERABLES Final Result [facility] [place] [address] * (ABNORMAL) Differential, auto (10/21/2024 6:50 AM CDT) Neutrophil abs 1.77 1.50 - 6.50 K/cumm Imm gran abs 0.01 0.00 - 0.10 K/cumm [facility] Lymphocyte abs 0.54(L) 0.80 - 3.30 K/cumm [facility] Monocyte abs 0.18(L) 0.20 - 0.80 K/cumm [facility] Eosinophil abs 0.02 0.00 - 0.50 K/cumm [facility] Basophil abs 0.01 0.00 - 0.10 K/cumm [facility] Neutrophil pct 70.0 % [facility] Comment: Interpretive Data Percent cell count reference ranges are not reported, since discordance with absolute values may lead to misinterpretation of CBC data. Current Interpretive Data was last revised on 2017. Imm gran pct 0.4 % [facility] Comment: Interpretive Data Percent cell count reference ranges are not reported, since discordance with absolute values may lead to misinterpretation of CBC data. Current Interpretive Data was last revised on 2017. Lymphocyte pct 21.3 % [facility] Comment: Interpretive Data Percent cell count reference ranges are not reported, since discordance with absolute values may lead to misinterpretation of CBC data. Current Interpretive Data was last revised on 2017. Monocyte pct 7.1 % [facility] Comment: Interpretive Data Percent cell count reference ranges are not reported, since discordance with absolute values may lead to misinterpretation of CBC data. Current Interpretive Data was last revised on 2017. Eosinophil pct 0.8 % [facility] Comment: Interpretive Data Percent cell count reference ranges are not reported, since discordance with absolute values may lead to misinterpretation of CBC data. Current Interpretive Data was last revised on 2017. Basophil pct 0.4 % [facility] Comment: Interpretive Data Percent cell count reference ranges are not reported, since discordance with absolute values may lead to misinterpretation of CBC data. Current Interpretive Data was last revised on 2017. Blood 10/21/2024 6:50 AM CDT 10/21/2024 7:00 AM CDT Theresa Schumacher NP LAB BLOOD ORDERABLES Final Result Performing Organization Address [facility] Co de Phone Number [facility] [place] [address] * (ABNORMAL) CBC with auto differential (10/21/2024 6:50 AM CDT) WBC 2.53(L) 3.80 - 9.90 K/cumm Hgb 6.7(L) 11.9 - 15.5 g/dL [facility] Hct 20.7(L) 35.6 - 45.5 % [facility] Plt 110(L) 150 - 400 K/cumm [facility] MPV 10.5 9.1 - 12.3 fL [facility] RBC 2.31(L) 3.90 - 5.20 M/cumm [facility] MCV 89.6 81.3 - 96.4 fL [facility] MCH 29.0 27.1 - 33.3 pg [facility] MCHC 32.4 32.3 - 35.7 g/dL [facility] RDW CV 14.9 11.1 - 14.9 % [facility] RDW SD 48.6(H) 35.7 - 48.1 fL [facility] NRBC abs 0.00 0.00 - 0.01 K/cumm [facility] Blood 10/21/2024 6:50 AM CDT 10/21/2024 7:00 AM CDT Theresa Schumacher NP LAB BLOOD ORDERABLES Final Result Performing Organization Address City/[facility] Co de Phone Number [facility] Department [place] [address] * (ABNORMAL) Comprehensive metabolic panel (10/21/2024 6:50 AM CDT) Sodium 137 135 - 145 mmol/L Potassium, pl 3.4 3.3 - 4.9 mmol/L [facility] Chloride 104 97 - 110 mmol/L [facility] CO2 28 22 - 32 mmol/L [facility] Anion gap 5 2 - 15 mmol/L [facility] BUN 11 6 - 25 mg/dL [facility] Creatinine 0.65 0.60 - 1.10 mg/dL [facility] Glucose 108 70 - 199 mg/dL [facility] Comment: Interpretive Data Fasting glucose [...] 2022. Calcium 8.2(L) 8.5 - 10.3 mg/dL [facility] Bilirubin, total 0.5 0.1 - 1.2 mg/dL [facility] Protein, pl 5.0(L) 6.5 - 8.5 g/dL [facility] Albumin 2.6(L) 3.5 - 5.0 g/dL [facility] Alk phos 182(H) 40 - 130 Units/L [facility] ALT 13 7 - 45 Units/L [facility] AST 16 10 - 45 Units/L [facility] Blood 10/21/2024 6:50 AM CDT 10/21/2024 7:00 AM CDT us Theresa Schumacher NP LAB BLOOD ORDERABLES Final Result [facility] [place] [address] * Urinalysis reflex to microscopic and culture Urine, clean voided (10/21/2024 12:16 AM CDT) Color, ur Straw Yellow Clarity, ur Clear Clear [facility] Specific gravity, ur 1.013 1.003 - 1.030 [facility] pH, urine 6.0 [facility] Comment: Interpretive Data U rine pH is affected by diet, medications, systemic acid-base disturbances, and renal tubular function. pH may affect urinary stone formation. For example, urine pH below 6.0 may help reduce the tendency for calcium phosphate stones and pH greater than 6.0 may reduce the tendency for uric acid stone formation. Source: [facility] Current Interpretive Data was last revised on 2017 Protein, ur ql Trace Negative [facility] Glucose, ur ql Negative Negative [facility] Ketones, ur Negative Negative [facility] Bilirubin, ur Negative Negative [facility] Blood, ur Negative Negative [facility] Urobilinogen, ur <2.0 <2.0 mg/dL [facility] Nitrite, ur Negative Negative [facility] Leukocyte esterase, ur Negative Negative [facility] UA reflex comment Reflex conditions for microscopic UA and culture not met. [facility] Urine, clean voided 10/21/2024 12:16 AM CDT 10/21/2024 12:34 AM CDT Theresa Schumacher NP LAB MICROBIOLOGY - G ENERAL ORDERABLES Final Result [facility] [place] [address] * (ABNORMAL) Protime-INR (10/21/2024 12:16 AM CDT) PT 17.4(H) 9.7 - 13.0 sec INR 1.60(H) 0.90 - 1.20 [facility] Comment: Interpretive data Oral anticoagulant [...] NP LAB BLOOD ORDERABLES Final Result ENRIQUE [facility] [place] [address] * X-ray chest 2 views (10/21/2024 12:07 [...] by: Aubrey Grigsby M.D. us Theresa Schumacher COLLECTIONS AND ARCHIVES DIRECTOR IMG XR PROCEDURES Fi nal Result * POC Blood Gas and Chemistries, Arterial - (10/20/2024 11:05 PM CDT) Lactate POC 0.9 0.7 - 2.0 mmol/L Blood 10/20/2024 11:0 5 PM CDT 10/20/2024 11:05 PM CDT Kalli Cox MD LAB POCT ORDERABLES - DEV ICE Final Result Performing Organization Address City/[facility]/ZIP Co de Phone Number [facility] [place] [address] * eGFR (10/20/2024 10:38 PM CDT) eGFR [...] BLOOD ORDERABLES Final Result Performing Organization Address City/[facility]/ZIP Co de [facility] Number [facility] [place] [address] * (ABNORMAL) Differential, auto (10/20/2024 10:38 PM CDT) Neutrophil abs 2.30 1.50 - 6.50 K/cumm Imm gran abs 0.02 0.00 - 0.10 K/cumm [facility] Lymphocyte abs 0.51(L) 0.80 - 3.30 K/cumm [facility] Monocyte abs 0.18(L) 0.20 - 0.80 K/cumm [facility] Eosinophil abs 0.01 0.00 - 0.50 K/cumm [facility] Basophil abs 0.00 0.00 - 0.10 K/cumm [facility] Neutrophil pct 76.1 % [facility] Comment: Interpretive Data Percent cell count reference ranges are not reported, since discordance with absolute values may lead to misinterpretation of CBC data. Current Interpretive Data was last revised on 2017. Imm gran pct 0.7 % [facility] Comment: Interpretive Data Percent cell count reference ranges are not reported, since discordance with absolute values may lead to misinterpretation of CBC data. Current Interpretive Data was last revised on 2017. Lymphocyte pct 16.9 % [facility] Comment: Interpretive Data Percent cell count reference ranges are not reported, since discordance with absolute values may lead to misinterpretation of CBC data. Current Interpretive Data was last revised on 2017. Monocyte pct 6.0 % [facility] Comment: Interpretive Data Percent cell count reference ranges are not reported, since discordance with absolute values may lead to misinterpretation of CBC data. Current Interpretive Data was last revised on 2017. Eosinophil pct 0.3 % [facility] Comment: Interpretive Data Percent cell count reference ranges are not reported, since discordance with absolute values may lead to misinterpretation of CBC data. Current Interpretive Data was last revised on 2017. Basophil pct 0.0 % [facility] Comment: Interpretive Data Percent cell count reference ranges are not reported, since discordance with absolute values may lead to misinterpretation of CBC data. Current Interpretive Data was last revised on 2017. Blood 10/20/2024 10:3 8 PM CDT 10/20/2024 11:22 PM CDT Theresa Macy Schumacher COLLECTIONS AND ARCHIVES DIRECTOR LAB BLOOD ORDERABLES Final Result [facility] [place] [address] * Respiratory pathogen panel Nasopharyngeal (10/20/2024 10:38 PM CDT) Pathologist [facility] Influenza A RNA Not Detected Not Detected Influenza B RNA Not Detected Not Detected [facility] RSV RNA Not Detected Not Detected [facility] COVID-19 RNA Not Detected Not Detected [facility] Coronavirus 229E RNA Not Detected Not Detected [facility] Coronavirus HKU1 RNA Not Detected Not Detected [facility] Coronavirus NL63 RNA Not Detected Not Detected [facility] Coronavirus OC43 RNA Not Detected Not Detected [facility] Adenovirus DNA Not Detected Not Detected [facility] Metapneumovirus RNA Not Detected Not Detected [facility] Rhinovirus/Enterov irus RNA Not Detected Not Detected [facility] Parainfluenza 1 RNA Not Detected Not Detected [facility] Parainfluenza 2 RNA Not Detected Not Detected [facility] Parainfluenza 3 RNA Not Detected Not Detected [facility] Parainfluenza 4 RNA Not Detected Not Detected [facility] B. pertussis DNA Not Detected Not Detected [facility] B. parapertussis DNA Not Detected Not Detected [facility] C. pneumoniae DNA Not Detected Not Detected [facility] M. pneumoniae DNA Not Detected Not Detected [facility] Nasopharyngeal 10/20/2024 10 :38 PM CDT 10/20/2024 11:47 PM CDT Narrative [facility] - 10/21/2024 12:44 AM CDT Is the Patient experiencing symptoms consistent with COVID?->Yes Surveillance testing for transplant patient?->No Interpretive Data The [employer] FilmArray Respiratory Panel (RP2.1) assay is a [...] assay has FDA clearance for testing of COLLECTIONS AND ARCHIVES DIRECTOR swabs. The performance of additional specimen types has been assessed by the performing laboratory. The performance characteristics of this assay have been determined by [facility]. Current interpretive data was last revised on 22. Theresa Schumacher COLLECTIONS AND ARCHIVES DIRECTOR LAB MICROBIOLOGY - G ENERAL ORDERABLES Final Result ENRI[facility] [place] [address] * (ABNORMAL) CBC with auto differential (10/20/2024 10:38 PM CDT) WBC 3.02(L) 3.80 - 9.90 K/cumm Hgb 7.1(L) 11.9 - 15.5 g/dL [facility] Hct 21.9(L) 35.6 - 45.5 % [facility] Plt 124(L) 150 - 400 K/cumm [facility] MPV 10.5 9.1 - 12.3 fL [facility] RBC 2.46(L) 3.90 - 5.20 M/cumm [facility] MCV 89.0 81.3 - 96.4 fL [facility] MCH 28.9 27.1 - 33.3 pg [facility] MCHC 32.4 32.3 - 35.7 g/dL [facility] RDW CV 14.7 11.1 - 14.9 % [facility] RDW SD 47.4 35.7 - 48.1 fL [facility] NRBC abs 0.00 0.00 - 0.01 K/cumm [facility] Blood 10/20/2024 10:3 8 PM CDT 10/20/2024 11:22 PM CDT Theresa Schumacher NP LAB BLOOD ORDERABLES Final Result [facility] [place] [address] * Blood culture Blood (10/20/2024 10:38 PM CDT) Pathologist [facility] Report Final Report: No growth Blood 10/20/2024 10:3 8 PM CDT 10/21/2024 12:22 AM CDT Narrative [facility] - 10/25/2024 7:01 AM CDT [...] performance characteristics have been verified by the [facility]biology Laboratory. For questions about this culture, contact the Microbiology Laboratory at [phone]. Interpretive data was last revised on 24. Theresa Schumacher NP LAB MICROBIOLOGY - G ENERAL ORDERABLES Final Result [facility] [place] [address] * Blood culture Blood (10/20/2024 10:38 PM [...] performance characteristics have been verified by the [facility]. For questions about this culture, contact the Microbiology Laboratory at [phone]. Interpretive data was last revised on 24. Theresa Schumacher NP LAB MICROBIOLOGY - G ENERAL ORDERABLES Final Result [facility] One [facility] [place] [address] * (ABNORMAL) Comprehensive metabolic panel (10/20/2024 10:38 PM CDT) Sodium 138 135 - 145 mmol/L Potassium, pl 3.6 3.3 - 4.9 mmol/L [facility] Chloride 104 97 - 110 mmol/L [facility] CO2 26 22 - 32 mmol/L [facility] Anion gap 8 2 - 15 mmol/L [facility] BUN 13 6 - 25 mg/dL [facility] Creatinine 0.74 0.60 - 1.10 mg/dL [facility] Glucose 100 70 - 199 mg/dL [facility] Comment: Interpretive Data Fasting glucose [...] 2022. Calcium 8.7 8.5 - 10.3 mg/dL [facility] Bilirubin, total 0.7 0.1 - 1.2 mg/dL [facility] Protein, pl 5.2(L) 6.5 - 8.5 g/dL [facility] Albumin 2.8(L) 3.5 - 5.0 g/dL [facility] Alk phos 195(H) 40 - 130 Units/L [facility] ALT 13 7 - 45 Units/L [facility] AST 18 10 - 45 Units/L [facility] Blood 10/20/2024 10:3 8 PM CDT 10/20/2024 11:23 PM CDT Theresa Schumacher NP LAB BLOOD ORDERABLES Final Result Performing Organization Address [facility] Co de Phone Number [facility] [place] [address] * eGFR (10/17/2024 10:06 AM CDT) eGFR [...] was last reviewed 2021. Testing performed by: [facility], [address] [place] [address] Blood 10/17/2024 10:0 6 AM CDT 10/17/2024 10:26 AM CDT us Kalli Cox MD LAB BLOOD ORDERABLES Gail l Result Performing Organization Address City/[facility] [facility]/ZIP Co de Phone Number [facility] [address] [facility] [place] [address] * Differential, auto (10/17/2024 10:06 AM CDT) Neutrophil abs 3.45 1.50 - 6.50 K/cumm Comment:Testing performed by : [place] [address], [address] [place] [address] Imm gran abs 0.02 0.00 - 0.10 K/cumm CERNER [facility] Comment:Testing performed by : [place] [address], [address] [place] [address] Lymphocyte abs 1.10 0.80 - 3.30 K/cumm CERNER B[facility] Comment:Testing performed by : [place] [address], [address] [place] [address] Monocyte abs 0.28 0.20 - 0.80 K/cumm CERNER [facility] Comment:Testing performed by : [place] [address], [address] [place] [address] Eosinophil abs 0.05 0.00 - 0.50 K/cumm CERNER [facility] Comment:Testing performed by : [place] [address], [address] [place] [address] Basophil abs 0.01 0.00 - 0.10 K/cumm CERNER B[facility] Comment:Testing performed by : [place] [address], [address] [place] [address] Neutrophil pct 70.3 % CERNER [facility] Comment: Interpretive Data Percent cell count reference ranges are not reported, since discordance with absolute values may lead to misinterpretation of CBC data. Current Interpretive Data was last revised on 2017. Testing performed by: [facility], [address] [place] [address] Imm gran pct 0.4 % CERNER [facility] Comment: Interpretive Data Percent cell count reference ranges are not reported, since discordance with absolute values may lead to misinterpretation of CBC data. Current Interpretive Data was last revised on 2017. Testing performed by: [facility], [facility], [address] [place] [address] Lymphocyte pct 22.4 % [facility] Comment: Interpretive Data Percent cell count reference ranges are not reported, since discordance with absolute values may lead to misinterpretation of CBC data. Current Interpretive Data was last revised on 2017. Testing performed by: [facility], [facility], [address] [place] [address] Monocyte pct 5.7 % [facility] Comment: Interpretive Data Percent cell count reference ranges are not reported, since discordance with absolute values may lead to misinterpretation of CBC data. Current Interpretive Data was last revised on 2017. Testing performed by: [facility], [facility], [address] [place] [address] Eosinophil pct 1.0 % [facility] Comment: Interpretive Data Percent cell count reference ranges are not reported, since discordance with absolute values may lead to misinterpretation of CBC data. Current Interpretive Data was last revised on 2017. Testing performed by: [facility], [facility], [address] [place] [address] Basophil pct 0.2 % [facility] Comment: Interpretive Data Percent cell count reference ranges are not reported, since discordance with absolute values may lead to misinterpretation of CBC data. Current Interpretive Data was last revised on 2017. Testing performed by: [facility], [facility], [address] [place] [address] Blood 10/17/2024 10:0 6 AM CDT 10/17/2024 10:09 AM CDT Kalli Cox MD LAB BLOOD ORDERABLES Gail garcia Result [facility] [address] [facility]. Department [place] [address] * (ABNORMAL) CBC with auto differential (10/17/2024 10:06 AM CDT) WBC 4.91 3.80 - 9.90 K/cumm Comment:Testing performed by : [place] [address], [address] [place] [address] Hgb 9.0(L) 11.9 - 15.5 g/dL CERNER B[facility] Comment:Testing performed by : [place] [address], [place] [address] Hct 28.8(L) 35.6 - 45.5 % CERNER [facility] Comment:Testing performed by : [place] [address], [place] [address] Plt 202 150 - 400 K/cumm CERNER BJWCH Comment:Testing performed by : [place] [address] [place] [address] MPV 9.2 9.1 - 12.3 fL CERNER B[facility] Comment:Testing performed by : [place] [address] [place] [address] RBC 3.15(L) 3.90 - 5.20 M/cumm CERNER BJW[facility] Comment:Testing performed by : [place] [address] [place] [address] MCV 91.4 81.3 - 96.4 fL CERNER B[facility] Comment:Testing performed by : [place] [address], [address] [place] [address] MCH 28.6 27.1 - 33.3 pg CERNER BJW[facility] Comment:Testing performed by : [place] [address], [address] [place] [address] MCHC 31.3(L) 32.3 - 35.7 g/dL CERNER [facility] Comment:Testing performed by : [address] [place] [address] RDW CV 15.0(H) 11.1 - 14.9 % ENRIQUE TORRES Comment:Testing performed by : [facility], [facility], [address] [place] [address] RDW SD 50.7(H) 35.7 - 48.1 fL ENRIQUE TORRES Comment:Testing performed by : [facility], [facility], [address] [place] [address] ANC Prelim 3.45 1.50 - 6.50 K/cumm ENRIQUE TORRES Comment: Interpretive Data The rapid ANC is a preliminary automated count and may vary from the final ANC (Neut Abs) reported in the WBC differential that follows. Current interpretive data was last revised 2024. Testing performed by: [facility], [facility], [address] [place] [address] Blood 10/17/2024 10:0 6 AM CDT 10/17/2024 10:09 AM CDT us Ibeth'Maurisio Cox MD LAB BLOOD ORDERABLES Gail l Result [facility] [address] [address]. Department of Laboratories [place], [place] [id number] * (ABNORMAL) Comprehensive metabolic panel (10/17/2024 10:06 AM CDT) Sodium 139 135 - 145 mmol/L Comment:Testing performed by : [facility], [address] [place] [address] Potassium, pl 4.0 3.3 - 4.9 mmol/L ENRIQUE TORRES Comment:Testing performed by : [facility], [address] [place] [address] Chloride 104 97 - 110 mmol/L ENRIQUE TORRES Comment:Testing performed by : [facility], [address] [place] [address] CO2 28 22 - 32 mmol/L ENRIQUE TORRES Comment:Testing performed by : [facility], [address], [place] [address] Anion gap 7 2 - 15 mmol/L CERNER BJWCH Comment:Testing performed by : [facility], [address], [place] [address] BUN 15 6 - 25 mg/dL CERNER BJW[facility] Comment:Testing performed by : [facility], [address], [place] [address] Creatinine 0.70 0.60 - 1.10 mg/dL CERNER BJW[facility] Comment:Testing performed by : [facility], [address], [place] [address] Glucose 90 70 - 199 mg/dL CERNER [...] was last revised 2022. Testing performed by: [facility], [address], [place] [address] Calcium 8.8 8.5 - 10.3 mg/dL CERNER BJWCH Comment:Testing performed by : [facility], [address], [place] [address] Bilirubin, total 0.6 0.1 - 1.2 mg/dL CERNER BJWCH Comment:Testing performed by : [facility], [address], [place] [address] Protein, pl 5.8(L) 6.5 - 8.5 g/dL CERNER BJWCH Comment:Testing performed by : [facility], [address], [place] [address] Albumin 3.3(L) 3.5 - 5.0 g/dL CERNER BJWCH Comment:Testing performed by : [facility], [address], [place] [address] Alk phos 325(H) 40 - 130 Units/L ENRIQUE TORRES Comment:Testing performed by : [facility], [address], [place] [address] ALT 29 7 - 45 Units/L ENRIQUE TORRES Comment:Testing performed by : [facility], [address], [place] [address] AST 27 10 - 45 Units/L ENRIQUE TORRES Comment:Testing performed by : [facility], [address], [place] [address] Blood 10/17/2024 10:0 6 AM CDT 10/17/2024 10:26 AM CDT [facility] MD LAB BLOOD ORDERABLES Gail l Result [facility] [address] [address]. Department [place] [address] * eGFR (10/14/2024 8:30 AM CDT) eGFR [...] was last reviewed 2021. Testing performed by: [facility], [address] [place] [address] Blood 10/14/2024 8:30 AM CDT 10/14/2024 8:54 AM CDT Kalli Cox MD LAB BLOOD ORDERABLES Gail garcia Result [facility] [address]. Department [place] [address] * Differential, auto (10/14/2024 8:30 AM CDT) Neutrophil abs 3.00 1.50 - 6.50 K/cumm Comment:Testing performed by : [facility], [facility], [address] [place] [address] Imm gran abs 0.00 0.00 - 0.10 K/cumm CERMARCELO BJWCH Comment:Testing performed by : [facility] 2, [address] [place] [address] Lymphocyte abs 1.24 0.80 - 3.30 K/cumm CERMARCELO BJW[facility] Comment:Testing performed by : [facility] 2, [address] [place] [address] Monocyte abs 0.80 0.20 - 0.80 K/cumm CERMARCELO BJW[facility] Comment:Testing performed by : [facility] 2, [address] [place] [address] Eosinophil abs 0.12 0.00 - 0.50 K/cumm CERMARCELO BJW[facility] Comment:Testing performed by : [facility] 2, [address] [place] [address] Basophil abs 0.03 0.00 - 0.10 K/cumm CERMARCELO BJW[facility] Comment:Testing performed by : [facility] 2, [address] [place] [address] Neutrophil pct 57.8 % CERMARCELO [facility] Comment: Interpretive Data Percent cell count reference ranges are not reported, since discordance with absolute values may lead to misinterpretation of CBC data. Current Interpretive Data was last revised on 2017. Testing performed by: [facility], [facility], [address] [place] [address] Imm gran pct 0.0 % CERNER [facility] Comment: Interpretive Data Percent cell count reference ranges are not reported, since discordance with absolute values may lead to misinterpretation of CBC data. Current Interpretive Data was last revised on 2017. Testing performed by: [facility], [facility], [address] [place] [address] Lymphocyte pct 23.9 % CERNER [facility] Comment: Interpretive Data Percent cell count reference ranges are not reported, since discordance with absolute values may lead to misinterpretation of CBC data. Current Interpretive Data was last revised on 2017. Testing performed by: [facility] 2, [address] [place] [address] Monocyte pct 15.4 % CERNER [facility] Comment: Interpretive Data Percent cell count reference ranges are not reported, since discordance with absolute values may lead to misinterpretation of CBC data. Current Interpretive Data was last revised on 2017. Testing performed by: [facility], [facility], [address] [place] [address] Eosinophil pct 2.3 % CERNER [facility] Comment: Interpretive Data Percent cell count reference ranges are not reported, since discordance with absolute values may lead to misinterpretation of CBC data. Current Interpretive Data was last revised on 2017. Testing performed by: [facility], [facility], [address] [place] [address] Basophil pct 0.6 % CERNER [facility] Comment: Interpretive Data Percent cell count reference ranges are not reported, since discordance with absolute values may lead to misinterpretation of CBC data. Current Interpretive Data was last revised on 2017. Testing performed by: [facility], [facility], [address] [place] [address] Blood 10/14/2024 8:30 AM CDT 10/14/2024 8:33 AM CDT us [facility] MD LAB BLOOD ORDERABLES Gail garcia Result [facility] [address] [facility]. [place] [address] * (ABNORMAL) CBC with auto differential (10/14/2024 8:30 AM CDT) WBC 5.19 3.80 - 9.90 K/cumm Comment:Testing performed by : [facility] 2, [address] [place] [address] Hgb 8.8(L) 11.9 - 15.5 g/dL ENRIQUE TORRES Comment:Testing performed by : [place] [address], [address] [place] [address] Hct 27.5(L) 35.6 - 45.5 % ENRIQUE TORRES Comment:Testing performed by : [place] [address], [address] [place] [address] Plt 209 150 - 400 K/cumm ENRIQUE TORRES Comment:Testing performed by : [place] [address], [address] [place] [address] MPV 9.7 9.1 - 12.3 fL ENRIQUE TORRES Comment:Testing performed by : [facility] 2, [address] [place] [address] RBC 3.04(L) 3.90 - 5.20 M/cumm ENRIQUE TORRES Comment:Testing performed by : [facility] 2, [address] [place] [address] MCV 90.5 81.3 - 96.4 fL ENRIQUE BRADFORDCH Comment:Testing performed by : [facility] 2, [address] [place] [address] MCH 28.9 27.1 - 33.3 pg ENRIQUE TORRES Comment:Testing performed by : [facility], [facility], [address] [place] [address] MCHC 32.0(L) 32.3 - 35.7 g/dL ENRIQUE TORRES Comment:Testing performed by : [facility], [facility], [address] [place] [address] RDW CV 14.4 11.1 - 14.9 % ENRIQUE TORRES Comment:Testing performed by : [facility], [facility], [address] [place] [address] RDW SD 47.6 35.7 - 48.1 fL ENRIQUE TORRES Comment:Testing performed by : [facility], [facility], [address] [place] [address] ANC Prelim 3.00 1.50 - 6.50 K/cumm ENRIQUE TORRES Comment: Interpretive Data The rapid ANC is a preliminary automated count and may vary from the final ANC (Neut Abs) reported in the WBC differential that follows. Current interpretive data was last revised 2024. Testing performed by: [facility], [facility], [address] [place] [address] Blood 10/14/2024 8:30 AM CDT 10/14/2024 8:33 AM CDT [facility]Maurisio Cox MD LAB BLOOD ORDERABLES Gail l Result [facility] [address] [facility]. [place] [address] * (ABNORMAL) Cancer antigen 19-9 (10/14/2024 8:30 AM CDT) CA 19-9 ag 46.8(H) 0.0 - 35.0 units/mL Comment: Interpretive Data The Sree CA 19-9 assay procedure was used. Results from different manufacturers or methods may not be comparable. Serial testing should be performed using the same method. Testing performed by: [facility], [facility] [facility], [place]., [address] Blood 10/14/2024 8:30 AM CDT 10/14/2024 10:46 AM CDT Kalli Cox MD LAB BLOOD ORDERABLES Gail l Result Performing Organization Address City/[facility]/ZIP Co de Phone Number [facility] [address] [facility] [place] [address] * TSH (10/14/2024 8:30 AM CDT) Thyroid Stimulating Hormone 0.52 0.30 - 4.20 mcIUnit/mL Comment:Testing performed by : [facility], [address] [place] [address] Blood 10/14/2024 8:30 AM CDT 10/14/2024 8:54 AM CDT Kalli Cox MD LAB BLOOD ORDERABLES Gail l Result Performing Organization Address [facility] Co de Phone Number ENRIQUE [facility] [address] [employer] [facility] [place] [address] * (ABNORMAL) T4, free (10/14/2024 8:30 AM CDT) Free T4 1.95(H) 0.90 - 1.70 ng/dL Comment:Testing performed by : [facility], [address] [place] [address] Blood 10/14/2024 8:30 AM CDT 10/14/2024 8:54 AM CDT Kalli Cox MD LAB BLOOD ORDERABLES Gail l Result Performing Organization Address City/[facility]/ZIP Co de Phone Number [facility] [address] [facility] [place] [address] * (ABNORMAL) Comprehensive metabolic panel (10/14/2024 8:30 AM CDT) Sodium 138 135 - 145 mmol/L Comment:Testing performed by : [facility], [address], [place] [address] Potassium, pl 3.7 3.3 - 4.9 mmol/L CERNER [facility] Comment:Testing performed by : [facility], [address], [place] [address] Chloride 103 97 - 110 mmol/L CERNER [facility] Comment:Testing performed by : [facility], [address], [place] [address] CO2 23 22 - 32 mmol/L CERNER [facility] Comment:Testing performed by : [facility], [address], [place] [address] Anion gap 12 2 - 15 mmol/L CERNER [facility] Comment:Testing performed by : [facility], [address], [place] [address] BUN 14 6 - 25 mg/dL CERNER BJW[facility] Comment:Testing performed by : [facility], [address], [place] [address] Creatinine 0.74 0.60 - 1.10 mg/dL CERNER BJW[facility] Comment:Testing performed by : [facility], [address], [place] [address] Glucose 94 70 - 199 mg/dL CERNER [...] was last revised 2022. Testing performed by: [facility], [address], [place] [address] Calcium 9.1 8.5 - 10.3 mg/dL CERNER BJW[facility] Comment:Testing performed by : [facility], [address], [place] [address] Bilirubin, total 0.6 0.1 - 1.2 mg/dL CERNER BJW[facility] Comment:Testing performed by : [facility], [address], [place] [address] Protein, pl 5.7(L) 6.5 - 8.5 g/dL CERNER [facility] Comment:Testing performed by : [facility], [address], [place] [address] Albumin 3.4(L) 3.5 - 5.0 g/dL CERNER [facility] Comment:Testing performed by : [facility], [address], [place] [address] Alk phos 387(H) 40 - 130 Units/L CERNER BJW[facility] Comment:Testing performed by : [facility], [address], [place] [address] ALT 37 7 - 45 Units/L CERNER BJW[facility] Comment:Testing performed by : [facility], [address], [place] [address] AST 22 10 - 45 Units/L CERNER BJW[facility] Comment:Testing performed by : [facility], [address], [place] [address] Blood 10/14/2024 8:30 AM CDT 10/14/2024 8:54 AM CDT us Ibeth'Maurisio Cox MD LAB BLOOD ORDERABLES Gail garcia Result [facility] [address] 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 Relationship Specialty Start Date End Date Leondias Rubio MD [address] [address] PCP - General Family Medicine 09/05/24 Arianna Persaud PA [address] [place] [address] Physician Tube Room Cashier 08/29/24 David Brewer MD [address] [place] [address] Referring Physician Gastroenterology 09/23/24 Kalli Cox MD [address] [place] [address] Consulting Physician Medical Oncology 09/23/24 Daisy Mercado MD [address] [facility] 8108[address]08-19 [place] [address] Consulting Physician General Surgery 09/23/24 Kalli Cox MD [address] [place] [address] Consulting Physician Medical Oncology 10/28/24
--- OUTSIDE RECORDS SUMMARY | 2025-01-12 08:53 | XMS_ITS | Encounter Summary ---
Author Organization [facility] Healthcare Address [address] [place] [address] Care Team Providers Care Hot Billet Shear Operator Name Role Phone Arianna Persaud Unavailable + [phone] Leonidas Rubio MD Primary Care Provider David Brewer MD Unavailable [phone] Haven Cox MD Unavailable [phone] Daisy Mercado MD Unavailable [phone] Haven Cox MD Unavailable [phone] Encounter Details Date Type Department Care Team (Late st Contact Info) Description 12/09/2024 Telephone [facility] Imaging [address] [place] [address] Jenae Hui RN Social History Tobacco Use Types Packs/Day Years [...] materials from doctor or pharmacy Sometimes 11/26/2024 [facility] Utilities Answer Date Recorded In [...] attend chur ch or orthodox services? Never 10/22/2024 Do you belong to [...] health care facility (including now)? No 02/27/2023 Housing Stability Vital Sign Answer Devan e Recorded In the last 12 months, was t here a time when you were not able to pay the mortgage or rent on time? No 10/22/2024 In the past 12 months, how m any times have you moved where you were living? 0 10/22/2024 At any time in the past 12 m [facility], were you homeless or living in a [place] health care facility (including now)? No 10/22/2024 Personal Safety Answer Date Recorded Have you ever been in or are you currently in a harmful physical or emotional relationship or is someone making you feel afraid or unsafe? 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 Gender Identity Not on file Sexual Orientation Not on file documented as of this encounter Plan of Treatment Not on file documented as of this encounter Visit Diagnoses Not on filedocumented in this encounter Care Teams Hot Billet Shear Operator Relationship Specialty Start Date End Date Leonidas Rubio MD [address] [place] [address] PCP - General Family Medicine 09/05/24 Arianna Persaud PA [address] [place] [address] Physician Tailing Machine Operator 08/29/24 David Brewer MD [address] [place] [address] Referring Physician Gastroenterology 09/23/24 Haven Cox MD [address] [place] [address] Consulting Physician Medical Oncology 09/23/24 Daisy Mercado MD [address] [facility] 8108-08-19 [place] [address] Consulting Physician General Surgery 09/23/24 Haven Cox MD [address] [place] [address] Consulting Physician Medical Oncology 10/28/24 documented as of this encounter
[2025-01-12] MEDS: fentaNYL CITRATE INJ (*CRX) 100 MCG/2 ML VIAL 25 MCG IV PUSH (09:05)
--- NOTE | 2025-01-12 09:11 | ED.FALL ---
HPI - Fall General Chief Complaint: Anxiety Stated Complaint: SUSAN BAILEY pain Time Seen by Provider: 01/12/25 08:45 History of Present Illness HPI Narrative: Patient is a 74-year-old female who presents ER with left hip pain. She is currently on hospice for metastatic pancreatic cancer. No known bony Mets. Has history of bilateral hip replacement. She is in a hospital bed at home. She got up to get out of bed and did not realize how high the bed was and when she stepped off fell onto her left side. She has shortening and rotation to her left lower extremity. She does not think she hit her head but she does take Xarelto. No numbness or tingling. She takes morphine 30 mg every 4 hours as needed for pain. She received morphine and fentanyl for arm pain from EMS, reports she is still 4/10 on a pain scale. Related Data Home Medications ?Medication ?Instructions ?Recorded ?Confirmed ?Last Taken ?Type nifedipine 20 mg capsule 20 mg PO Q6H 12/06/23 10/02/24 Unknown History propafenone 225 mg tablet 225 mg PO Q12H 09/05/24 12/06/24 12/06/24 History hxbixy-[id number] 2 cap PO .COMPLEX 10/02/24 12/06/24 12/06/24 History 40,000-126,000-168,000 unit capsule, delay rel (Zenpep) morphine 15 mg immediate release 15 mg PO Q8H PRN pain 10/02/24 12/07/24 12/06/24 History tablet Held on 12/07/24. Instructions: Patient no longer taking rivaroxaban 20 mg tablet (Xarelto) 20 mg PO DAILY 10/02/24 12/06/24 12/05/24 History chlorhexidine gluconate 0.12 % 1 applic 12/06/24 Unknown History mouthwash diphenoxylate-atropine 2.5 1 tablet PO Q4-6H PRN diarrhea 12/06/24 12/07/24 12/06/24 History mg-0.025 mg tablet estradiol 0.01% (0.1 mg/gram) 0.25 appful vaginal WEEKLY 12/06/24 12/06/24 12/04/24 History vaginal cream furosemide 20 mg tablet 20 mg PO DAILY 12/06/24 12/07/24 12/06/24 History loperamide 2 mg capsule 2 mg PO Q2-4H PRN loose stool 12/06/24 12/06/24 12/06/24 History (Anti-Diarrheal (loperamide)) morphine 30 mg immediate release 30 mg PO Q4H PRN pain 12/06/24 12/07/24 12/06/24 History tablet morphine 30 mg tablet,extended 30 mg PO Q8H 12/06/24 12/06/24 12/06/24 History release ondansetron 8 mg disintegrating 8 mg PO Q8H PRN nausea and vomiting 12/06/24 12/06/24 12/06/24 History tablet potassium chloride 20 mEq 20 meq PO ONCE 12/06/24 12/06/24 12/06/24 History tablet,extended release prochlorperazine maleate 10 mg 10 mg PO Q6H PRN nausea and 12/06/24 12/06/24 12/06/24 History tablet (Compazine) vomiting hyoscyamine sulfate 0.125 mg 0.125 mg PO QID PRN dyspepsia 12/07/24 12/07/24 Unknown History disintegrating tablet lidocaine HCl 2 % mucosal jelly 1 applic topical DAILY PRN pain 12/07/24 12/07/24 Unknown History Allergies Allergy/AdvReac Type Severity Reaction Status Date / Time hydrocodone Allergy Itching Verified 12/06/24 21:39 oxycodone Allergy Itching Verified 12/06/24 21:39 amoxicillin AdvReac Vomiting Verified 12/06/24 21:39 Review of Systems Review of Systems: All systems reviewed & are unremarkable except as noted in HPI and below Constitutional: Constitutional: Reports no additional constitutional complaints Cardiovascular: Cardiovascular: Reports no additional cardiovascular complaints Respiratory: Respiratory: Reports no additional respiratory complaints Musculoskeletal: Musculoskeletal: Reports no additional musculoskeletal complaints Neurologic: Reports system reviewed and no additional complaints, except as documented PMFSH Past Medical History Medical History Pancreatic adenocarcinoma Ulcerative colitis Pancreatic mass Lactose intolerance Chronic anemia Postmenopausal Major depressive disorder, recurrent, moderate Weight gain Primary generalized (osteo)arthritis Polyosteoarthritis, unspecified Panic attacks NOMI on CPAP Morbid (severe) obesity due to excess calories Mixed hyperlipidemia Chronic fatigue Essential (primary) hypertension Chronic pain disorder Chronic atrial fibrillation Arthritis, shoulder region Arthralgia Allergic contact dermatitis due to plants, except food Breast cancer screening Cough Dizziness Chapped lips Screening for breast cancer Generalized anxiety disorder Major depressive disorder, recurrent, moderate BMI 40.0-44.9, adult Obesity NOMI (obstructive sleep apnea) Benign essential HTN Arthritis Surgical History Surgical History History of sleeve gastrectomy History of radiofrequency ablation procedure for cardiac arrhythmia Hx of total knee arthroplasty R H/O total hip arthroplasty bilateral Family History Family History Father Family history of premature coronary heart disease Hypertension Social History Social History Social History: Smoking status: Never smoker Second hand tobacco smoke exposure: No Alcohol intake: former Substance use: never Substance use type: does not use Lack of Transportation: No Lack of Food: Never True Current Housing: I Have Housing Concerned About Future Housing: No Difficulty Paying Gas/Electric Bills: No Difficulty Paying for Meds: No Currently Unemployed: No Education: Decline to Answer Difficulty w/ Childcare or Family Care: No Living arrangements: alone Occupation/Education: retired Gender identity (if verbalized by the patient): Female Sexual Orientation (if Verbalized by the Patient): Straight or Heterosexual Exam Narrative: GENERAL: Well-appearing, well-nourished, and in no acute distress. HEAD: Normocephalic, atraumatic. ENT: Mucous membranes moist. NECK: Supple. CHEST: Clear to auscultation. No respiratory distress. HEART: Regular rate and rhythm. Normal peripheral pulses. ABDOMEN: Soft, nontender, nondistended. EXTREMITIES: Left lower extremity no shortening in rotation. Pulses intact. Sensation intact. No upper extremity abnormality. SKIN: Warm, dry, no rash. NEURO: Alert and oriented x3. PSYCH: Normal mood and affect. Course Course Emergency Course: 1009: Accepted by Dr. Carreno in the ER at [facility] for transfer. Patient is having pain control with diluadid. She understands that she will have to temporarily revoke her hospice for a surgical procedure. Vital Signs Vital signs: Vital Signs Temperature 97.6 F 01/12/25 08:52 Pulse Rate 70 01/12/25 08:52 Respiratory Rate 12 01/12/25 08:52 Blood Pressure 150/98 H 01/12/25 08:52 Pulse Oximetry 98 01/12/25 08:52 Temperature 97.6 F 01/12/25 08:52 Pulse Rate 73 01/12/25 10:01 Respiratory Rate 11 L 01/12/25 10:01 Blood Pressure 149/98 H 01/12/25 10:01 Pulse Oximetry 100 01/12/25 10:01 MDM - Fall Lab Data 01/12/25 10:04 01/12/25 10:04 Labs: Lab Results 01/12/25 Range/Units 10:04 WBC 6.0 (4.5-10.0) K/mm3 RBC 3.28 L (4.2-5.4) M/mm3 Hgb 8.9 L (12.0-15.0) g/dL Hct 29.5 L (37.0-47.0) % MCV 89.9 (80-100) fl MCH 27.1 (26-34) pg MCHC 30.2 L (32-36) g/dl RDW 15.9 H (11.5-14.5) % Plt Count 196 (150-375) k/mm3 MPV 9.8 (7.4-10.4) fl Immature Gran % (Auto) 0.5 (0-0.5) % Neut % (Auto) 72.1 (45.5-73.1) % Lymph % (Auto) 17.3 L (18.3-44.2) % [place] % (Auto) 7.6 (2.6-8.5) % Eos % (Auto) 2.0 (0-4.4) % Baso % (Auto) 0.5 (0.2-1.2) % Lymph # (Auto) 1.03 (0.9-3.2) K/mm3 [place] # (Auto) 0.5 (0.1-0.6) K/mm3 Eos # (Auto) 0.1 (0-0.3) K/mm3 Baso # (Auto) 0.0 (0.0-0.1) K/mm3 Abs Immat Gran (auto) 0.03 (0.00-0.031) K/mm3 Absolute Neuts (auto) 4.3 (1.3-6.7) K/mm3 Absolute Nucleated RBC 0.000 (0.0-0.012) K/mm3 Nucleated RBC % 0.0 (0.0-0.2) % PT 18.7 H (11.1-14.7) Seconds INR 1.6 APTT 38.9 H (22.3-36.8) Seconds Sodium 137 (137-145) mmol/L Potassium 3.6 (3.4-5.0) mmol/L Chloride 103 (98-107) mmol/L Carbon Dioxide 30 (22-30) mmol/L Anion Gap 4 (4-12) mmol/L BUN 19 H (7-17) mg/dL Creatinine 0.67 L (0.7-1.0) mg/dL Estim Creat Clear Calc 59 ml/min Estimated GFR > 60 (59 - ) Glucose 106 (65-110) mg/dL Calcium 8.9 (8.4-10.2) mg/dL Total Bilirubin 0.5 (0.2-1.3) mg/dL AST 25 (14-36) U/L ALT 14 (6-35) U/L Alkaline Phosphatase 108 (38-126) U/L Total Protein 6.4 (6.3-8.2) g/dL Albumin 3.2 L (3.5-5.1) g/dL Imaging Data Radiologist's impression: ITS Impressions Head CT 01/12/25 09:34 IMPRESSION: 1. No acute intracranial findings. Chest X-Ray 01/12/25 10:03 IMPRESSION: 1. Massive right pleural effusion with associated lobar atelectasis and/or airspace disease. Critical Care Time Critical Care Time Critical Care Time: Yes Total Critical Care Time: 35 Discharge Plan Discharge Clinical Impression: Noemi-prosthetic femoral shaft fracture Patient Disposition: Acute Care Hospital Condition: Stable Patient Language: Cypriot Prescriptions: No Action carvedilol [Coreg] 6.25 mg tablet 6.25 mg PO Q12H Qty: 60 0RF Rx Instructions: must administer with a meal/food nifedipine 20 mg capsule 20 mg PO Q6H Patient Comments: per cardio propafenone 225 mg tablet 225 mg PO Q12H Patient Comments: per cardio morphine 15 mg tablet 15 mg PO Q8H PRN (Reason: pain) Zenpep 40,000-126,000- 168,000 unit capsule,delayed release(DR/EC) 2 cap PO .COMPLEX Rx Instructions: 2 caps orally nine times a day; administer with meals and/or snacks Xarelto 20 mg tablet 20 mg PO DAILY Rx Instructions: must administer with evening meal tizanidine 2 mg tablet 2 mg PO TID PRN (Reason: muscle spasticity) Qty: 90 2RF pregabalin [Lyrica] 50 mg capsule 50 mg PO TID Qty: 90 1RF albuterol sulfate 90 mcg/actuation HFA aerosol inhaler 2 puff inhalation QID PRN (Reason: shortness of breath or wheezing) Qty: 8.5 0RF simethicone 250 mg capsule 250 mg PO BID PRN (Reason: abdominal distention) Qty: 30 0RF morphine 30 mg tablet extended release 30 mg PO Q8H morphine 30 mg tablet 30 mg PO Q4H PRN (Reason: pain) diphenoxylate-atropine 2.5-0.025 mg tablet 1 tablet PO Q4-6H PRN (Reason: diarrhea) furosemide 20 mg tablet 20 mg PO DAILY potassium chloride 20 mEq tablet extended release 20 meq PO ONCE loperamide [Anti-Diarrheal (loperamide)] 2 mg capsule 2 mg PO Q2-4H PRN (Reason: loose stool) Rx Instructions: administer after each loose stool until symptoms controlled; do not exceed 8 mg per 24 hrs prochlorperazine maleate [Compazine] 10 mg tablet 10 mg PO Q6H PRN (Reason: nausea and vomiting) ondansetron 8 mg tablet,disintegrating 8 mg PO Q8H PRN (Reason: nausea and vomiting) estradiol 0.01 % (0.1 mg/gram) cream 0.25 appful VAGINAL WEEKLY chlorhexidine gluconate 0.12 % mouthwash 1 applic lidocaine HCl 2 % jelly 1 applic topical DAILY PRN (Reason: pain) Patient Comments: to vaginal prolapse area hyoscyamine sulfate 0.125 mg tablet,disintegrating 0.125 mg PO QID PRN (Reason: dyspepsia) lisinopril 10 mg tablet 10 mg PO DAILY Qty: 90 1RF buspirone 10 mg tablet See Rx Instructions .ROUTE .COMPLEX Qty: 180 0RF Dose Instruction: TAKE 1 TABLET BY MOUTH TWICE DAILY Rx Instructions: TAKE 1 TABLET BY MOUTH TWICE DAILY hydroxyzine HCl 25 mg tablet See Rx Instructions .ROUTE .COMPLEX Qty: 90 0RF Dose Instruction: TAKE 1 TABLET BY MOUTH THREE TIMES DAILY NEEDED FOR NAUSEA OR VOMITING Rx Instructions: TAKE 1 TABLET BY MOUTH THREE TIMES DAILY NEEDED FOR NAUSEA OR VOMITING ondansetron 4 mg tablet,disintegrating See Rx Instructions .ROUTE .COMPLEX Qty: 20 0RF Dose Instruction: DISSOLVE 1 TABLET ON THE TONGUE EVERY 8 HOURS NEEDED FOR NAUSEA OR VOMITING Rx Instructions: DISSOLVE 1 TABLET ON THE TONGUE EVERY 8 HOURS NEEDED FOR NAUSEA OR VOMITING pantoprazole 40 mg tablet,delayed release (DR/EC) See Rx Instructions .ROUTE .COMPLEX Qty: 90 1RF Dose Instruction: TAKE 1 TABLET BY MOUTH EVERY MORNING FOR 6 WEEKS Rx Instructions: TAKE 1 TABLET BY MOUTH EVERY MORNING FOR 6 WEEKS citalopram 40 mg tablet See Rx Instructions .ROUTE .COMPLEX Qty: 90 1RF Dose Instruction: TAKE 1 TABLET BY MOUTH EVERY DAY Rx Instructions: TAKE 1 TABLET BY MOUTH EVERY DAY Follow-up/Referrals: Leonidas Rubio MD [Primary Care Provider, Family Practice]
[2025-01-12] MEDS: HYDROmorphone HCL INJ (*CRX) 1 MG/ML SYR IV PUSH ×2 (09:52→11:27)
[2025-01-12 10:13] LABS: Hematocrit 29.5 % (37.0-47.0); Hemoglobin 8.9 g/dL (12.0-15.0); Immature Granulocyte Percent A 0.5 % (0-0.5); Lymphocytes Absolute Auto 1.03 K/mm3 (0.9-3.2); Mean Corpuscular HGB Conc 30.2 g/dl (32-36); Mean Corpuscular Hemoglobin 27.1 pg (26-34); Mean Corpuscular Volume 89.9 fl (80-100); Nucleated Red Blood Cells Absolute Auto 0.000 K/mm3 (0.0-0.012); Nucleated Red Blood Cells Perc 0.0 % (0.0-0.2); Platelet Count Result 196 k/mm3 (150-375); Red Blood Count 3.28 M/mm3 (4.2-5.4); White Blood Count 6.0 K/mm3 (4.5-10.0)
[2025-01-12 10:31] LABS: INR 1.6; Prothrombin Time 18.7 Seconds (11.1-14.7)
[2025-01-12 10:32] LABS: Alanine Aminotransferase 14 U/L (6-35); Albumin Level 3.2 g/dL (3.5-5.1); Alkaline Phosphatase 108 U/L (38-126); Anion Gap 4 mmol/L (4-12); Aspartate Amino Transferase 25 U/L (14-36); Bilirubin,Total 0.5 mg/dL (0.2-1.3); Blood Urea Nitrogen 19 mg/dL (7-17); Calcium 8.9 mg/dL (8.4-10.2); Carbon Dioxide 30 mmol/L (22-30); Chloride 103 mmol/L (98-107); Estimated CRCL calculation 59 ml/min; Estimated Glomerular Filt Rate > 60; Glucose 106 mg/dL (65-110); Partial Thromboplastin Time 38.9 Seconds (22.3-36.8); Potassium 3.6 mmol/L (3.4-5.0); Sodium 137 mmol/L (137-145); Total Protein 6.4 g/dL (6.3-8.2)
== END 2025-01-12 11:49 | disposition short-term general hospital (02) ==
PROVIDERS: Emergency Provider Emergency Medicine; PCP Family Medicine
DX: S72.332A Displaced oblique fracture of shaft of left femur, initial encounter for closed fracture (principal); M97.02XA Periprosthetic fracture around internal prosthetic left hip joint, initial encounter; C25.9 Malignant neoplasm of pancreas, unspecified; D64.9 Anemia, unspecified; F32.A Depression, unspecified; M19.90 Unspecified osteoarthritis, unspecified site; G47.30 Sleep apnea, unspecified; E78.5 Hyperlipidemia, unspecified; I10 Essential (primary) hypertension; I48.91 Unspecified atrial fibrillation; G89.29 Other chronic pain; W06.XXXA Fall from bed, initial encounter
CPT/HCPCS: 36415; 70450; 71045; 73502; 73552; 80053; 85025; 85610; 85730; 96374; 96375; 96376; 99285; J1171; J3010